=== PATIENT | male | born 1955 | race Caucasian/White ===

== ENCOUNTER 2016-12-02 14:37 | Inpatient (IN) | payer OTHER, MEDICARE ==
[~2016-12-02] VITALS: Ht 182.9 cm; Wt 156.5 kg
[~2016-12-02 14:37] MED LIST: ADVAIR 250-501 EACH INH; ADVAIR 500-501 EACH INH; ADVAIR DISKUS 21 DSK INH; AMARYL1 M1 PO; AMARYL1 MG PO; AMIODARONE50 MG/1 M1 IV; AMOX-CLAV 875-1 EACH PO; ATIVAN4 MG/1 ML IV; AZITHROMYCIN250 M1 PO; CEFTRIAXONE1 G1 IV; COLCHICINE0.6 M2 PO; COREG 25 MG TAB25 MG PO; COREG25 M1 PO; CRESTOR5 M1 PO; DELTASONE20 MG PO; DILAUDID2 M1 PO; FLOMAX0.4 M1 PO; FUROSEMIDE40 MG PO; HYDROXYZINE HCL50 M1 PO; HYDROXYZINE HCL50 MG PO; HYDROXYZINE PAM50 M1 PO; KLOR-CON M2020 ME1 PO; KLOR-CON M2020 MEQ PO; LASIX40 M1 PO; LASIX80 M1 PO; LASIX80 MG PO; LEVOFLOXACIN500 MG PO; LISINOPRIL20 M1 PO; LISINOPRIL20 MG PO; METFORMIN HCL500 M3 PO; METFORMIN HCL500 MG PO; MEVACOR20 MG PO; MUCINEX1200 M1 PO; NAPROXEN SODIU220 M1 PO; NOVOLIN R100 UNIT/1 SC; NYSTATIN15 G1 TOP; OXYCODONE-ACET1 EACH PO; PERCOCET 325 MG1 TA2 PO; PREDNISONE10 M2 PO; PREDNISONE20 M1 PO; PROTONIX IV40 M1 IV; RENAGEL800 M1 PO; SINGULAIR10 M1 PO; SINGULAIR10 MG PO; SOLU-MEDRO40 MG/1 ML IV; SPIRIVA18 MCG INH; VITAMIN A & D56.7 GM TOP
[2016-12-02 16:54] LABS: ABSOLUTE BASOPHIL COUNT 0 /CUMM (0.0-0.2); ABSOLUTE EOSINOPHIL COUNT 0.2 /CUMM (0.0-0.7); ABSOLUTE GRANULOCYTE CT 5.1 /CUMM (1.4-6.5); ABSOLUTE LYMPH COUNT 2.8 /CUMM (1.2-3.4); ABSOLUTE MONOCYTE COUNT 0.9 /CUMM (0.10-0.60); BASOPHIL % 0.3 % (0.0-2.0); GRANULOCYTE % 56.8 % (42.2-75.2); HEMATOCRIT 28.4 % (42-52); MEAN CORPUSCULAR HGB 26.3 PG (27.0-31.0); MEAN CORPUSCULAR HGB CONC 32.3 G/DL (33.0-37.0); MEAN CORPUSCULAR VOLUME 81.4 FL (80.0-94.0); MEAN PLATELET VOLUME 6.6 FL (7.4-10.4); PLATELET COUNT 228 /CUMM (130-400); RBC DISTRIBUTION WIDTH 14.9 % (11.5-14.5); RED BLOOD CELL CT 3.49 /CUMM (4.70-6.10)
--- NOTE | 2016-12-02 16:58 | ED SKIN/ALLERGY COMPLAINT ---
History of Present Illness General Chief Complaint: Lower Extremity Problems Stated Complaint: LEG SWELLING, SENT BY Source: patient, old records Exam Limitations: no limitations Vital Signs & Intake/Output Vital Signs & Intake/Output Vital Signs Date Time Temp Pulse Resp B/P Pulse O2 O2 Flow FiO2 Ox Delivery Rate 12/02 1824 98.0 80 22 162/90 98 Nasal 2.0L Cannula 12/02 1446 97.4 78 28 147/93 97 Room Air Allergies Coded Allergies: NO KNOWN ALLERGIES (02/25/16) Reconcile Medications Albuterol Sulfate (Proair Hfa) 90 MCG HFA.AER.AD 2 PUF INH Q4-6 PRN PRN COPD (Reported) Atorvastatin Calcium (Lipitor) 20 MG TABLET 1 TAB PO DAILY CHOLESTEROL ( Reported) Carvedilol 12.5 MG TABLET 1 TAB PO BID HEART (Reported) Ferrous Sulfate (IRON) 325 MG (65 MG IRON) TABLET 1 TAB PO DAILY SUPPLEMENT ( Reported) Fluticasone/Salmeterol (Advair 500-50 Diskus) 500 MCG-50 MCG/DOSE BLST.W.DEV 1 PUF INH BID COPD (Reported) Furosemide (Lasix) 40 MG TABLET 1 TAB PO BID DIURETIC (Reported) Glimepiride 1 MG TABLET 1 TAB PO BID DM (Reported) Hydroxyzine HCl 50 MG TABLET 100 MG PO BID MUCUS (Reported) Lisinopril 20 MG TABLET 1 TAB PO DAILY BP (Reported) Metformin HCl (Glucophage) 1,000 MG TABLET 1 TAB PO BID DM (Reported) Montelukast Sodium (Singulair) 10 MG TABLET 1 TAB PO DAILY RESPIRATORY ( Reported) Naproxen Sodium 220 MG TABLET 4 TAB PO BID PRN PAIN (Reported) Potassium Chloride (Klor-Con M20) 20 MEQ TAB.ER.PRT 1 TAB PO DAILY SUPPLEMENT (Reported) Umeclidinium [place] (Incruse Ellipta) 62.5 MCG/ACTUATION BLST.W.DEV 1 PUFF INH DAILY COPD (Reported) Triage Note: C/O LEFT LEG PAIN, SWELLING AND REDNESS X [address] CUELLAR. Triage Nurses Notes Reviewed? yes Onset: 3 weeks Duration: week(s): Timing: recent history Severity: severe Location: extremities Possible Factors: no cause identified No Modifying Factors: none Associated Symptoms: blisters, change in skin texture, edema, rash, swelling/ mass/lumps HPI: 3 weeks prior to admission patient reports progressive swelling and redness to left lower extremity painful to touch with extension to thigh. He denies fever chills nausea vomiting diarrhea abdominal pain chest pain shortness of breath headache dysuria bleeding. Past History Travel History Traveled to [place] past 21 day No Medical History Any Pertinent Medical History? 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 Relation not specified for: *No pertinent family history Hx Contributory? No Review of Systems Review of Systems Constitutional: Reports: no symptoms. EENTM: Reports: no symptoms. Respiratory: Reports: no symptoms. Cardiovascular: Reports: no symptoms. GI: Reports: no symptoms. Genitourinary: Reports: no symptoms. Musculoskeletal: Reports: no symptoms. Skin: Reports: see HPI, rash. Neurological/Psychological: Reports: no symptoms. Hematologic/Endocrine: Reports: no symptoms. Immunologic/Allergic: Reports: no symptoms. All Other Systems: Reviewed and Negative Physical Exam Physical Exam General Appearance: well developed/nourished, alert, awake, anxious, severe distress Head: atraumatic Eyes: Bilateral: PERRL, EOMI. Ears, Nose, Throat: normal pharynx, normal ENT inspection, hearing grossly normal Neck: normal inspection, supple Respiratory: normal breath sounds Cardiovascular: regular rate/rhythm Peripheral Pulses: 4+ carotid (R), 4+ carotid (L) Gastrointestinal: soft, non-tender Back: normal inspection, normal range of motion, no vertebral tenderness Extremities: normal inspection, normal capillary refill, normal range of motion, no edema, no ligament instability Neurologic/Psych: awake, alert, oriented x 3, normal mood/affect Reflexes: 2+: bicep (R), bicep (L). Skin: rash Skin Problem Location: lower extremities (LLE) Skin Problem Character: erythema, rash, swelling, tenderness, thickening Lymphatic: no anterior cervical rafi Progress Differential Diagnosis: abscess/cellulitis, allergic reaction, contact dermatitis Plan of Care: Orders Procedure Date/time Status Regular Diet 12/02 D Active Patient Data 12/02 1639 Active OXYGEN SETUP (GEN) 12/02 163 Active Saline Lock 12/02 163 Active Admit to inpatient 12/02 1633 Active Vital Signs 12/02 163 Active Activity/Ambulation 12/02 1633 Active Code Status 12/02 1633 Active BLOOD CULTURE 12/02 1630 Active US-DUPLEX VENOUS EXTREM UNI 12/02 162 Active COMPREHENSIVE METABOLIC PANEL 12/02 162 Complete CBC WITHOUT DIFFERENTIAL 12/02 162 Complete Laboratory Tests 12/02/16 1645: Anion Gap 11, Estimated GFR 52 L, BUN/Creatinine Ratio 22.1, Glucose 83, Calcium 8.9, Total Bilirubin 0.7, AST 12 L, ALT 21, Alkaline Phosphatase 72, Total Protein 6.8, Albumin 3.3 L, Globulin 3.5, Albumin/Globulin Ratio 0.9 L, CBC w Diff NO MAN DIFF REQ, RBC 3.49 L, MCV 81.4, MCH 26.3 L, RDW 14.9 H, MPV 6.6 L, Gran % 56.8, Lymphocytes % 30.5, Monocytes % 10.4 H, Eosinophils % 2.0, Basophils % 0.3, Absolute Granulocytes 5.1, Absolute Lymphocytes 2.8, Absolute Monocytes 0.9 H, Absolute Eosinophils 0.2, Absolute Basophils 0, PUBS MCHC 32.3 L Microbiology 12/02 164 BLOOD: Blood Culture - RECD 12/02 163 BLOOD: Blood Culture - ORD Radiology Impression: US pending Departure Departure Disposition: STILL A PATIENT Condition: Stable Clinical Impression Primary Impression: Cellulitis of left lower leg Secondary Impressions: Anemia, Renal insufficiency Referrals: UNKNOWN (PCP/Family) Departure Forms: Customer Survey General Discharge Information Admission Note Spoke With: JOSE LINARES MD Documentation of Exam: Documentation of any treatments & extenuating circumstances including Concerns Regarding Discharge (functional status, medication knowledge or non-compliance, living conditions, etc.) that warrant an admission rather than observation: IV antibiotics follow cultures physical therapy medication adjustment continuing care discharge planning
[2016-12-02] MEDS ORDERED: ADVAIR 500-501 EACH INH (17:42)
[2016-12-02] MEDS ORDERED: INCRUSE ELLI62.5 MCG INH (17:43)
[2016-12-02] MEDS ORDERED: CARVEDILOL12.5 M1 PO (17:43)
[2016-12-02] MEDS ORDERED: PROAIR HFA8.5 GM INH (17:44)
[2016-12-02] MEDS ORDERED: GLIMEPIRIDE1 M1 PO (17:44)
[2016-12-02] MEDS ORDERED: LIPITOR20 M2 PO (17:45)
[2016-12-02] MEDS ORDERED: LISINOPRIL20 M1 PO (17:45)
[2016-12-02] MEDS ORDERED: SINGULAIR10 M1 PO (17:45)
[2016-12-02] MEDS ORDERED: HYDROXYZINE HCL50 M1 PO (17:46)
[2016-12-02] MEDS ORDERED: LASIX40 M1 PO (17:46)
[2016-12-02] MEDS ORDERED: GLUCOPHAGE1000 M1 PO (17:46)
[2016-12-02] MEDS ORDERED: IRON325 M3 PO (17:47)
[2016-12-02] MEDS ORDERED: KLOR-CON M2020 ME1 PO (17:47)
[2016-12-02] MEDS ORDERED: NAPROXEN SODIU220 MG PO (17:48)
--- NOTE | 2016-12-02 19:02 | History & Physical ---
GILDA HARPER,NEERAJ 12/02/16 1902: General Information and HPI MD Statement: I have seen and personally examined SUZETTE GRIGSBY SR and documented this H&P. The patient is a 61 year old M who presented with a patient stated chief complaint of lower extremity erythema and swelling. Source of Information: patient Exam Limitations: no limitations History of Present Illness: This is a 61-year-old morbidly obese gentleman with a past medical history of nonischemic cardiomyopathy, recent pacemaker and defibrillator (2016),CHF with EF of 15-20%, chronic venous stasis with lower extremity edema, COPD, diabetes, dyslipidemia presents to [facility] ED after being sent by his respiratory care practitioner Dr. George for evaluation of left lower extremity erythema and swelling. Pt reports an extensive chronic history of left lower leg erythema and questionable cellulitis. She reports that this recent episode started around 3- 1/2 weeks where he noticed increased swelling and redness of his left lower leg. Patient denies any recent trauma of his lower extremities, insect or animal bite, or application of any chemical irritants to his leg. Patient denies any fevers, or any recent infection. He also denies any chest pain, palpitation, shortness of breath, increased orthopnea, PND, denies noncompliance when it comes to his furosemide. Patient expresses some discontent regarding the management of his lower extremity swelling and states that he wishes there were answers for his leg problems. Of note, patient has previously been evaluated by vascular with the temperature that was venous insufficiency with no need for any surgical intervention. Allergies/Medications Allergies: Coded Allergies: NO KNOWN ALLERGIES (02/25/16) Home Med list Albuterol Sulfate (Proair Hfa) 90 MCG HFA.AER.AD 2 PUF INH Q4-6 PRN PRN COPD (Reported) Atorvastatin Calcium (Lipitor) 20 MG TABLET 1 TAB PO DAILY CHOLESTEROL ( Reported) Carvedilol 12.5 MG TABLET 1 TAB PO BID HEART (Reported) Ferrous Sulfate (IRON) 325 MG (65 MG IRON) TABLET 1 TAB PO DAILY SUPPLEMENT ( Reported) Fluticasone/Salmeterol (Advair 500-50 Diskus) 500 MCG-50 MCG/DOSE BLST.W.DEV 1 PUF INH BID COPD (Reported) Furosemide (Lasix) 40 MG TABLET 1 TAB PO BID DIURETIC (Reported) Glimepiride 1 MG TABLET 1 TAB PO BID DM (Reported) Hydroxyzine HCl 50 MG TABLET 100 MG PO BID MUCUS (Reported) Lisinopril 20 MG TABLET 1 TAB PO DAILY BP (Reported) Metformin HCl (Glucophage) 1,000 MG TABLET 1 TAB PO BID DM (Reported) Montelukast Sodium (Singulair) 10 MG TABLET 1 TAB PO DAILY RESPIRATORY ( Reported) Naproxen Sodium 220 MG TABLET 4 TAB PO BID PRN PAIN (Reported) Potassium Chloride (Klor-Con M20) 20 MEQ TAB.ER.PRT 1 TAB PO DAILY SUPPLEMENT (Reported) Umeclidinium [place] (Incruse Ellipta) 62.5 MCG/ACTUATION BLST.W.DEV 1 PUFF INH DAILY COPD (Reported) Past History Travel History Traveled to [place] past 21 day No Medical History Neurological: NONE EENT: NONE Cardiovascular: cardiomyopathy, CHF, chronic venous insuff, hypertension, hyperlipidemia Respiratory: COPD, SLEEP APNEA Gastrointestinal: NONE Hepatic: NONE Renal: NONE Musculoskeletal: NONE Psychiatric: NONE Endocrine: diabetes Blood Disorders: NONE 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 Relation not specified for: *No pertinent family history Psychosocial History Who Do You Live With? self Services at Home: None ETOH Use: occasional use Functional Ability ADLs Independent: dressing, eating, toileting, bathing. Ambulation: independent Review of Systems Review of Systems EENTM: Denies: blurred vision, double vision, visual changes. Cardiovascular: Denies: chest pain, orthopena, palpitations, peripheral edema. Respiratory: Denies: hemoptysis, short of breath, sputum production, wheezing. GI: Denies: melena, nausea, bloody stool, changes in stool. Genitourinary: Denies: dysuria, frequency, hematuria. Musculoskeletal: Denies: joint pain, joint swelling, muscle pain. Skin: Reports: erythema. Denies: jaundice, lesions. Neurological/Psychological: Denies: confusion, depressed, dementia, emotional problems. Hematologic/Endocrine: Denies: bleeding, polyuria, polydipsia. Immunologic/Allergic: Reports: no symptoms. All Other Systems: Reviewed and Negative Exam & Diagnostic Data Physical Exam General Appearance Alert, Oriented X3, Cooperative, morbidly obese Skin significant erythema of left leg extending to the upper thigh area,mild tenderness to palpation,warm to touch compared to the other extremity . No abscess, or purulent discharge noted. HEENT Atraumatic, PERRLA, EOMI Neck Supple Lymphatic Cervical nl Cardiovascular Regular Rate, Normal S1, Normal S2 Lungs Clear to Auscultation, Normal Air Movement Abdomen Soft, distended, nontender Neurological Normal Speech, Strength at 5/5 X4 Ext, Sensation Intact Extremities No Clubbing, No Cyanosis, left lower extremity swelling with erythema Assessment/Plan Assessment: This is a 61-year-old morbidly obese man with a chronic history of venous insufficiency, CHF of 15-20% EF, ischemic cardiomyopathy, and on Lasix therapy presents for evaluation of left lower extremity swelling. Assessment and plan #Lower extremity swelling The unilateral left extremity erythema with some tenderness and warmth to touch is highly suggestive of cellulitis. It is noted that the patient is however afebrile with no leukocytosis. Other possible differential include worsening venous insufficiency. Plan Admit to general medicine floor Will start cefazolin IV Obtain blood cultures #History of CHF Continue home meds including furosemide #History of ischemic cardiomyopathy Continue lisinopril and carvedilol #History of hypertension Continue lisinopril #History of diabetes NovoLog sliding scale Accu-Cheks 3 times a day and at bedtime # history of COPD TRC nebs as needed As Ranked By This Provider Problem List: 1. Cellulitis of left lower leg Core Measures/Miscellaneous Acute Coronary Syndrome ACS Diagnosis: No Cerebrovascular Accident CVA/TIA Diagnosis: No Congestive Heart Failure CHF Diagnosis: No Venous Thromboembolism VTE Risk Factors: Age > 40 VTE Prophylaxis Ordered Inpt: Pharm- Lovenox No Mech VTE prophylaxis d/t: LE Edema No VTE Pharm Prophylaxis d/t: No contraindications VTE Diagnosis: No VTE Type: NONE VTE Confirmed by (Test): NONE Severe Sepsis Severe Sepsis Present: No Septic Shock Septic Shock Present: No Miscellaneous Documentation Attending Case Discussed With: MD YOUNG Primary Care Physician: UNKNOWN Patient sees these Specialists CARDIOLOGY Level of Patient Care: General Medicine YOUNG HARPER, [facility] 12/02/16 2020: Attending MD Review Statement Attending Statement Attending Statement: examined this patient, discuss w/resident/PA/ADDRESSER, agreed w/resident/PA/ADDRESSER Attending Assessment/Plan: 61 yo morbidly obese M with h/o COPD on 3L O2, HTN, T2DM, JORY, chronic edema, PAD, nonischemic CMP with chronic systolic HF (EF 15-20%), was last admitted to [facility] (Jul 2016) for shock 2/2 Ecoli urosepsis, c/b LISETTE/ATN requiring interim dialysis, Afib, UGIB, respiratory failure requiring intubation, was eventually transferred to [facility] for biventricular pacemaker and defibrillator. Patient reports he had a complicated course at [facility], and was discharged after few months to rehab. He has many social issues he lost his son last month, has been homeless living out of truck with his dog. He reports compliance to his medications. He went for his regular follow up with Dr. George today, who sent him to the ER for evaluation of left lower extremity erythema and diffuse swelling over the past 3 weeks. There were a few weeping lesions (clear fluid) in the past week, but those have resolved. He has had cellulitis in the past. He cannot recollect any trauma or insect bites, he does trip often while taking his dog out for a walk. He has chronic venous stasis and was evaluated by Vascular during last admission, but never had an OP follow up. He has a chronic cough and exertional dyspnea at baseline. VSS. Exam: Chest b/l clear, Heart S1S2 regular, LE: b/l LE pitting edema, LLE 3+ edema extending upto thigh with erythema, warmth and tenderness. Chronic venous stasis+, no open wounds or ulcers. Peripheral pulses are feeble due to edema. Neuro intact. Labs: no leukocytosis, H/H 9.2/28.4 (stable), bicarb 31, BUN 31, creat 1.4 ( previously 0.8, was in ATN with creatinine upto 7.1), LE dopplers neg. EKG: pending. 1. Left lower extremity cellulitis. Elevate legs, blood culture, IV cefazolin, will give one dose of IV lasix and continue home PO dose from AM. Wound care consult in AM. Consider Vascular consult, last arterial dopplers done in Nov 2015 showed decreased b/l proximal superfical femoral artery velocities. 2. Chronic hypoxic respiratory failure. TRC nebs, continue advair, and O2 supplementation. 3. Cardiomyopathy. Ct. Coreg, lisinopril and lasix. Dr. George to see in AM. 4. T2DM. Acckari novolog SS. Hold metformin and glipizide. Check HbA1c. 5. Anemia stable. CKD stage 3A stable. DVT ppx Hep SC. Full code. ELY SPEARS 12/02/162108: Review of Systems Review of Systems Constitutional: Reports: see HPI. Exam & Diagnostic Data Last 24 Hrs of Vital Signs/I&O Vital Signs Date Time Temp Pulse Resp B/P Pulse O2 O2 Flow FiO2 Ox Delivery Rate 12/03 0948 67 130/86 12/03 0948 130/86 12/03 0616 98.4 81 18 118/66 99 Nasal Cannula 12/02 2211 76 152/84 12/02 2040 98 Nasal 3.0L Cannula 12/02 2019 98.1 76 18 152/84 98 Nasal 3.0L Cannula 12/02 1932 100 Nasal 3.0L Cannula 12/02 1925 97.6 66 22 111/72 100 Nasal 3.0L Cannula 12/02 1824 98.0 80 22 162/90 98 Nasal 2.0L Cannula 12/02 1446 97.4 78 28 147/93 97 Room Air Intake & Output 12/03 1600 12/03 0800 12/03 0000 Intake Total 250 Output Total Balance 250 Intake, Oral 250 Patient 345 lb Weight Resident Review Statement Resident Statement: agreed with analytics intern Other Findings: History and physical as above Assessment and plan Patient is a 61-year-old man with past medical history of COPD on 3 L of oxygen at home, hypertension, hyperlipidemia, obstructive sleep apnea, diabetes, nonischemic cardiomyopathy, systolic heart failure with ejection fraction 15-20% status post pacemaker and defibrillator, Escherichia coli sepsis, history of acute kidney injury requiring dialysis and history of peptic ulcer disease was sent in by Dr. George for left leg swelling and redness that was present for last 3 weeks. Problem list 1. Left lower extremity cellulitis 2. History of systolic heart failure with ejection fraction 15-20% status post defibrillator and pacemaker. On Lasix 3. History of COPD and obstructive sleep apnea 4. History of hypertension on lisinopril and carvedilol 5. History of hypercholesterolemia on Lipitor 6. History of diabetes on glimepiride and metformin 7. History of normocytic anemia 8. History of chronic renal insufficiency Plan - Admit on general medicine floor - Vitals every shift - Keep oxygen saturation more than 92% - We'll start him on IV cefazolin every 8 hours for left lower extremity cellulitis. Blood cultures 2 - We will continue all his home medications except naproxen, continue Nipride and metformin. We will start patient on medium dose insulin sliding scale. Accu-Cheks before each meal and at bedtime. - Continue [facility] nebs - Heart healthy diet - Subcutaneous heparin for DVT prophylaxis - Full code
--- NOTE | 2016-12-02 19:52 | ULTRASOUND REPORT ---
EXAMINATION: US TRIPLEX SCANNING LOWER EXTREMITY, LEFT CLINICAL INFORMATION: Left lower extremity swelling and edema. COMPARISON: Triplex ultrasound of the bilateral lower extremity veins 12/02/2015. TECHNIQUE: Color-flow triplex imaging with spectral analysis and compression Doppler were performed on the left lower extremity. FINDINGS: Respiratory variation, normal compression and augmented flow are noted throughout the lower extremity. The visualized common femoral vein, superficial femoral vein, profunda femoral vein, popliteal vein and mid calf peroneal and posterior tibial venous segments show no evidence of deep venous thrombosis. There is no Nichols's cyst. IMPRESSION: Normal triplex scan without evidence of deep venous thrombosis involving the left lower extremity.
[2016-12-02 20:20] VITALS: BP 152/84
--- NOTE | 2016-12-02 21:54 | Admission Certification ---
Admission Certification Certification Statement - As attending physician, I certify that at the time of - admission, based on clinical presentation, severity of - symptoms, need for further diagnostic testing and - therapeutic interventions, and risk of adverse outcomes - without in-hospital treatment, in my clinical assessment, - this patient requires an acute hospital stay for a minimum - of two nights or longer. I have also considered psychsocial - factors such as support system, advanced age, financial - issues, cognitive issues, and failed out-patient treatments, - past re-admission history, safety of patient, and lack of - compliance as applicable. Specific rationale supporting this admission is: Left lower extremity cellulitis.
[2016-12-03 06:16] VITALS: BP 118/66
[2016-12-03 08:11] LABS: ABSOLUTE BASOPHIL COUNT 0 /CUMM (0.0-0.2); ABSOLUTE EOSINOPHIL COUNT 0.2 /CUMM (0.0-0.7); ABSOLUTE LYMPH COUNT 2.3 /CUMM (1.2-3.4); ABSOLUTE MONOCYTE COUNT 0.8 /CUMM (0.10-0.60); BASOPHIL % 0.4 % (0.0-2.0); EOSINOPHIL % 2.1 % (0-5); GRANULOCYTE % 55.1 % (42.2-75.2); HEMATOCRIT 27.4 % (42-52); MEAN CORPUSCULAR HGB 26.9 PG (27.0-31.0); MEAN CORPUSCULAR HGB CONC 33.2 G/DL (33.0-37.0); MEAN CORPUSCULAR VOLUME 81.2 FL (80.0-94.0); MEAN PLATELET VOLUME 7.5 FL (7.4-10.4); PLATELET COUNT 215 /CUMM (130-400); RBC DISTRIBUTION WIDTH 15.2 % (11.5-14.5); RED BLOOD CELL CT 3.38 /CUMM (4.70-6.10); WHITE BLOOD CELL COUNT 7.3 /CUMM (4.8-10.8)
--- NOTE | 2016-12-03 10:19 | Cons- Cardiology ---
General Information and HPI Consulting Request Date of Consult: 12/03/16 Requested By: BAILEY MAS MD Reason for Consult: Chronic systolic heart failure, lower extremity edema Source of Information: patient, old records Exam Limitations: no limitations History of Present Illness: The patient is a 61-year-old white male who is well-known to me. 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 Patient was seen in the office yesterday for a routine visit. At that time, he was noted to have marked edema of his lower extremity on the left side with associated marked erythema and pain consistent with cellulitis. The patient was sent to the emergency him for further evaluation and possible admission. The patient ultimately had a venous ultrasound of his LAD performed which showed no evidence of DVT. The patient was admitted for further management of his edema and cellulitis. Allergies/Medications Allergies: Coded Allergies: NO KNOWN ALLERGIES (02/25/16) Home Med List: Albuterol Sulfate (Proair Hfa) 90 MCG HFA.AER.AD 2 PUF INH Q4-6 PRN PRN COPD (Reported) Atorvastatin Calcium (Lipitor) 20 MG TABLET 1 TAB PO DAILY CHOLESTEROL ( Reported) Carvedilol 12.5 MG TABLET 1 TAB PO BID HEART (Reported) Cephalexin 500 MG CAPSULE 1 TAB PO Q6H CELLULITIS Ferrous Sulfate (IRON) 325 MG (65 MG IRON) TABLET 1 TAB PO DAILY SUPPLEMENT ( Reported) Fluticasone/Salmeterol (Advair 500-50 Diskus) 500 MCG-50 MCG/DOSE BLST.W.DEV 1 PUF INH BID COPD (Reported) Furosemide (Lasix) 40 MG TABLET 1 TAB PO BID DIURETIC (Reported) Glimepiride 1 MG TABLET 1 TAB PO BID DM (Reported) Hydroxyzine HCl 50 MG TABLET 100 MG PO BID MUCUS (Reported) Lisinopril 20 MG TABLET 1 TAB PO DAILY BP (Reported) Metformin HCl (Glucophage) 1,000 MG TABLET 1 TAB PO BID DM (Reported) Montelukast Sodium (Singulair) 10 MG TABLET 1 TAB PO DAILY RESPIRATORY ( Reported) Naproxen Sodium 220 MG TABLET 4 TAB PO BID PRN PAIN (Reported) Oxycodone HCl/Acetaminophen (Percocet 5-325 MG Tablet) 5 MG-325 MG TABLET 1 TAB PO Q4-6 PRN PRN LEG PAIN Potassium Chloride (Klor-Con M20) 20 MEQ TAB.ER.PRT 1 TAB PO DAILY SUPPLEMENT (Reported) Umeclidinium [place] (Incruse Ellipta) 62.5 MCG/ACTUATION BLST.W.DEV 1 PUFF INH DAILY COPD (Reported) Current Medications: Current Medications Sig/Keaton Start time Last Medication Dose Route Stop Time Status Admin Acetaminophen 650 MG Q4P PRN 12/02 2130 AC PO Acetaminophen 650 MG Q4P PRN 12/02 1999 DC PO Albuterol Sulfate 2 PUF Q4-6 PRN PRN 12/02 1999 AC 12/03 INH 0842 Ampicillin Sodium/ 0 .STK-MED ONE 12/02 1927 DC Sulbactam Sodium .ROUTE Ampicillin Sodium/ 3,000 MG ONCE ONE 12/02 1800 DC 12/02 Sulbactam Sodium IV 12/02 1829 1929 Sodium Chloride 100 ML Atorvastatin Calcium 20 MG DAILY@1700 12/03 1700 AC PO Budesonide/ 1 PUF BID 12/02 2200 AC 12/03 Formoterol Fumarate INH 0949 Carvedilol 12.5 MG BID 12/02 2200 AC 12/03 PO 0948 Cefazolin Sodium 2 GM IQ8 12/03 0000 AC 12/03 N/A 1 UNIT IV 0841 Ferrous Sulfate 325 MG DAILY 12/03 1000 AC 12/03 PO 0948 Furosemide 40 MG 0730,1630 12/03 0730 AC 12/03 PO 0618 Furosemide 40 MG ONCE ONE 12/02 2300 DC 12/02 IV 12/02 2301 2314 Heparin Sodium 5,000 UNIT Q8 12/02 2200 AC 12/03 (Porcine) SC 0618 Hydromorphone HCl 2 MG ONCE ONE 12/03 0100 DC 12/03 PO 12/03 0101 0130 Hydroxyzine HCl 100 MG BID 12/02 2200 AC 12/03 PO 0948 Insulin Aspart 0 TIDAC 12/03 0800 AC SC Ipratropium [place] 2.5 ML ONCE ONE 12/02 1999 DC INH 12/02 2000 Lisinopril 20 MG DAILY 12/03 1000 AC 12/03 PO 0948 Montelukast Sodium 10 MG AT BEDTIME 12/02 2200 AC 12/02 PO 2211 Oxycodone HCl 5 MG Q6 PRN 12/03 0945 AC 12/03 PO 0948 Oxycodone/ 1 TAB ONCE ONE 12/02 2044 DC 12/02 Acetaminophen PO 12/02 Potassium Chloride 20 MEQ DAILY 12/03 1000 AC 12/03 PO 0948 Past History Travel History Traveled to [place] past 21 day No Medical History Neurological: NONE EENT: NONE Cardiovascular: cardiomyopathy, CHF, chronic venous insuff, hypertension, hyperlipidemia Respiratory: COPD, SLEEP APNEA Gastrointestinal: NONE Hepatic: NONE Renal: NONE Musculoskeletal: NONE Psychiatric: NONE Endocrine: diabetes Blood Disorders: NONE Cancer(s): NONE 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 Relation not specified for: *No pertinent family history Psychosocial History Who Do You Live With? self Services at Home: None Smoking Status: Never Smoked ETOH Use: occasional use Functional Ability ADLs Independent: dressing, eating, toileting, bathing. Ambulation: independent Exam & Diagnostic Data Vital Signs and I&O BP 120/60 P 70 REGULAR Diagnostic Data EKG Results UNCHANGED Assessment/Plan Assessment/Plan ASSESSMENT: 1. LE cellulitis 2. Worsening LE edema 3. Non ischemic cardiomyopathy 4. LBBB 5. AICD Recommendations: - Continue regular medications - IV lasix diuresis - Antibiotics as per the medical team - COntinue LE elevation, etc. - Pain management. Consult Acknowledgment - Thank you for your consult request.
--- NOTE | 2016-12-03 12:53 | PN- Housestaff ---
Subjective Follow-up For: Cellulitis Subjective: Seen and examined at bedside. Patient inquires about his oxycodone regimen and would like oxycodone pills for his pain is pain management. She reports that he feels much better with some improvement on his leg swelling. Patient denies any acute complaints including chest pain, palpitation, fever, chills, abdominal pain, dysuria, or dizziness. No Acute overnight event reported by nursing staff Review of Systems Constitutional: Denies: see HPI. Objective Last 24 Hrs of Vital Signs/I&O Vital Signs Date Time Temp Pulse Resp B/P Pulse O2 O2 Flow FiO2 Ox Delivery Rate 12/04 618 98.8 62 18 96/54 98 Nasal Cannula 12/04 0550 98/64 12/03 2136 60 110/62 12/03 2135 97.7 60 18 110/62 98 Nasal 3.0L Cannula 12/03 1400 97.7 65 20 140/60 97 Nasal 3.0L Cannula 12/03 0948 67 130/86 12/03 0948 130/86 12/03 08 Nasal 3.0L Cannula Intake & Output 12/04 0800 12/04 0000 12/03 1600 Intake Total 300 480 800 Output Total Balance 300 480 800 Intake, Oral 300 480 800 Patient 156.489 kg Weight Physical Exam General Appearance: Alert, Oriented X3, Cooperative Other Physical Findings: Skin erythema of left leg extending to the upper thigh area,mild tenderness to palpation,warm to touch compared to the other extremity . Significant better compared to yesterday. No abscess, or purulent discharge noted. HEENT Atraumatic, PERRLA, EOMI Neck Supple Lymphatic Cervical nl Cardiovascular Regular Rate, Normal S1, Normal S2 Lungs Clear to Auscultation, Normal Air Movement Abdomen Soft, distended, nontender Neurological Normal Speech, Strength at 5/5 X4 Ext, Sensation Intact Extremities No Clubbing, No Cyanosis, left lower extremity swelling with erythema Current Medications: Current Medications Sig/Keaton Start time Last Medication Dose Route Stop Time Status Admin Acetaminophen 650 MG Q4P PRN 12/02 2129 AC PO Albuterol Sulfate 2 PUF Q4-6 PRN PRN 12/02 1999 AC 12/03 INH 0842 Atorvastatin Calcium 20 MG DAILY@1700 12/03 1700 AC 12/03 PO 1618 Budesonide/ 1 PUF BID 12/02 2199 AC 12/03 Formoterol Fumarate INH 2136 Carvedilol 12.5 MG BID 12/02 2200 AC 12/03 PO 2136 Cefazolin Sodium 2 GM IQ8 12/03 0000 AC 12/03 N/A 1 UNIT IV 2312 Ferrous Sulfate 325 MG DAILY 12/03 1000 AC 12/03 PO 0948 Furosemide 40 MG 0730,1630 12/03 0730 AC 12/03 PO 1618 Heparin Sodium 5,000 UNIT Q8 12/020 AC 12/04 (Porcine) SC 0529 Hydroxyzine HCl 100 MG BID 12/02 2200 AC 12/03 PO 2136 Insulin Aspart 0 TIDAC 12/03 0800 AC 12/03 SC 1156 Lisinopril 20 MG DAILY 12/03 1000 AC 12/03 PO 0948 Montelukast Sodium 10 MG AT BEDTIME 12/02 2199 AC 12/03 PO 2136 Oxycodone HCl 5 MG Q6 PRN 12/03 0945 AC 12/04 PO 0537 Patient Medication 1 ED .STK-MED ONE 12/[address] Teaching ED 12/03 1401 Potassium Chloride 20 MEQ DAILY 12/03 1000 AC 12/03 PO 0948 Last 24 Hrs of Lab/Joaquim Results Last 24 Hrs of Labs/Mics: .. Assessment/Plan Assessment: This is a 61-year-old morbidly obese man with a chronic history of venous insufficiency, CHF of 15-20% EF, ischemic cardiomyopathy, and on Lasix therapy presents for evaluation of left lower extremity swelling. Assessment and plan #Lower extremity swelling The unilateral left extremity erythema with some tenderness and warmth to touch is highly suggestive of cellulitis. It is noted that the patient is however afebrile with no leukocytosis. Other possible differential include worsening venous insufficiency. Patient does leave in a truck, which probably precipitates his lower leg extremity swelling due to lack of foot elevation. Patient also endorses a lot of life stressors, and appears depressed. Plan Continue cefazolin IV f/u blood cultures #Social consult Patient doses a lot of life stresses in his home living arrangement complicates his health status as he is currently living in a truck. She is reluctant when offered options and help regarding placement. We had extensive discussion about the need for leg elevation and the negative mpact of sleeping in a car chair when it comes to his lower leg extremity swelling. #History of CHF Continue home meds including furosemide #History of ischemic cardiomyopathy Continue lisinopril and carvedilol #History of hypertension Continue lisinopril #History of diabetes NovoLog sliding scale Accu-Cheks 3 times a day and at bedtime # history of COPD TRC nebs as needed Problem List: 1. Cellulitis of left lower leg Pain Ratin Pain Location: lower extremity Pain Goal: Remain pain free Pain Plan: apap for mild pain oxycodone for moderate pain Tomorrow's Labs & Rationales: BEP-CHF ON LASIX CBC-CELLULITIS
[2016-12-03 14:00] VITALS: BP 140/60
--- NOTE | 2016-12-03 15:40 | PN- Att Addend ---
Attending MD Review Statement Attending Statement Attending MD Statement: examined this patient, discuss w/resident/PA/RESEARCH ARCHAEOLOGIST, agreed w/resident/PA/RESEARCH ARCHAEOLOGIST, reviewed EMR data (avail), discussed w/nursing, discussed w/ case mgmt Attending Assessment/Plan: Pt seen at bedside. Pt stays in the truck and does not have a home. Cellulitis improving with abx. Pt has chronic edema of the left leg which is getting worse as he sleeps sitting up and does not lay down due to sob. Also has sleep apnea but not willing to use his cpap machine. d/w him the importance of leg elevation and how it will help prevent infections. CHF systolic chronic with ef of 15-20%, pt eats outside all the times as he lives in the truck, which may be contributing further to his worsening leg edema. Plan d/w pt . SW to see the patient to d/w him social issues.
[2016-12-03 21:35] VITALS: BP 110/62
[2016-12-04 05:50] VITALS: BP 98/64
[2016-12-04 06:19] VITALS: BP 96/54
--- NOTE | 2016-12-04 09:01 | PN- Housestaff ---
Subjective Follow-up For: Cellulitis/lower extremity swelling Subjective: Patient is seen and examined at bedside. Patient reports that his swelling and leg pain is significantly better compared to yesterday and on admission date. Patient does not endorse any other acute complaint such as chest pain, palpitation, fever, chills, shortness of breath, nausea, vomiting, abdominal pain or dysuria. Overnight BP reading of 98/64 noted. No acute overnight events reported by nursing staff. Review of Systems Constitutional: Reports: no symptoms. Objective Last 24 Hrs of Vital Signs/I&O Vital Signs Date Time Temp Pulse Resp B/P Pulse O2 O2 Flow FiO2 Ox Delivery Rate 12/04 934 59 120/80 12/04 927 59 120/80 12/04 926 59 120/80 12/04 799 Nasal 3.0L Cannula 12/04 618 98.8 62 18 96/54 98 Nasal Cannula 12/04 0550 98/64 12/04 0000 Room Air 12/03 2136 60 110/62 12/03 2135 97.7 60 18 110/62 98 Nasal 3.0L Cannula 12/03 1400 97.7 65 20 140/60 97 Nasal 3.0L Cannula Intake & Output 12/04 1600 12/04 0800 12/04 0000 Intake Total 300 300 480 Output Total Balance 300 300 480 Intake, Oral 300 300 480 Physical Exam General Appearance: Alert, Oriented X3, Cooperative, morbidly obese Skin: lower extremity swelling on the left side less prominent compared to previous days, erythema seems to be progressively decreasing with minimal to no pain on palpation. HEENT: Atraumatic, PERRLA, Mucous Membr. moist/pink Cardiovascular: Regular Rate, Normal S1, Normal S2 Lungs: Clear to Auscultation, Normal Air Movement Abdomen: Soft, distended, no guarding or pain on palpation Neurological: Normal Speech, Strength at 5/5 X4 Ext, Normal Tone, Sensation Intact Extremities: No Clubbing, left lower eswelling of left lower extremityxtremity swelling Vascular: not able to appreciate dorsalis pedis pulses due to edema Assessment/Plan Assessment: This is a 61-year-old morbidly obese man with a chronic history of venous insufficiency, CHF of 15-20% EF, ischemic cardiomyopathy, and on Lasix therapy presents for evaluation of left lower extremity swelling. Assessment and plan #Lower extremity swelling The unilateral left extremity erythema with some tenderness and warmth to touch is highly suggestive of cellulitis. It is noted that the patient is however afebrile with no leukocytosis. Other possible differential include worsening venous insufficiency. Patient does leave in a truck, which probably precipitates his lower leg extremity swelling due to lack of foot elevation. Patient also endorses a lot of life stressors, and appears depressed. Plan This is a non abscess/nonpurulent uncomplicated cellulitis . Will therefore continue cefazolin IV today and will switch to oral cephalexin 500 mg every 6 tomorrow for total antibiotic course of 7 days. f/u blood cultures #Social consult Patient doses a lot of life stresses in his home living arrangement complicates his health status as he is currently living in a truck. She is reluctant when offered options and help regarding placement. We had extensive discussion about the need for leg elevation and the negative mpact of sleeping in a car chair when it comes to his lower leg extremity swelling. #History of CHF Continue home meds including furosemide #History of ischemic cardiomyopathy Continue lisinopril and carvedilol #History of hypertension Continue lisinopril #History of diabetes NovoLog sliding scale Accu-Cheks 3 times a day and at bedtime # history of COPD TR nebs as needed Problem List: 1. Cellulitis of left lower leg Pain Ratin Pain Location: lower extremity Pain Goal: Pain 4 or less Pain Plan: Oxycodone for moderate pain Hydromorphone for severe pain Tomorrow's Labs & Rationales: BEP-CKD, CHF and on Lasix CBC-active cellulitis infection
[2016-12-04 09:14] LABS: ABSOLUTE BASOPHIL COUNT 0 /CUMM (0.0-0.2); ABSOLUTE EOSINOPHIL COUNT 0.2 /CUMM (0.0-0.7); ABSOLUTE GRANULOCYTE CT 4.6 /CUMM (1.4-6.5); ABSOLUTE LYMPH COUNT 2.1 /CUMM (1.2-3.4); ABSOLUTE MONOCYTE COUNT 0.7 /CUMM (0.10-0.60); BASOPHIL % 0.3 % (0.0-2.0); EOSINOPHIL % 2.2 % (0-5); GRANULOCYTE % 61.2 % (42.2-75.2); HEMATOCRIT 29.9 % (42-52); MEAN CORPUSCULAR HGB 26.4 PG (27.0-31.0); MEAN CORPUSCULAR HGB CONC 32.2 G/DL (33.0-37.0); MEAN CORPUSCULAR VOLUME 81.8 FL (80.0-94.0); MEAN PLATELET VOLUME 7.4 FL (7.4-10.4); PLATELET COUNT 212 /CUMM (130-400); RED BLOOD CELL CT 3.66 /CUMM (4.70-6.10); WHITE BLOOD CELL COUNT 7.6 /CUMM (4.8-10.8)
--- NOTE | 2016-12-04 12:15 | PN- Att Addend ---
Attending MD Review Statement Attending Statement Attending MD Statement: examined this patient, discuss w/resident/PA/OPERATIONS SUPERVISOR CHEMICAL CLEANING, agreed w/resident/PA/OPERATIONS SUPERVISOR CHEMICAL CLEANING, reviewed EMR data (avail), discussed w/nursing Attending Assessment/Plan: Pt seen at bedside. Pt stays in the truck with his dog and does not have a home. Cellulitis improving with abx. Pt has chronic edema of the left leg which is getting worse as he sleeps sitting up and does not lay down due to sob. Also has sleep apnea but not willing to use his cpap machine. d/w him the importance of leg elevation and how it will help prevent infections. CHF systolic chronic with ef of 15-20%, pt eats outside all the times as he lives in the truck, which may be contributing further to his worsening leg edema. Plan is to continue iv abx for now and if doing better dc him on po abx tomorrow. Increase in bicarbonate. will repeat bmp in am and f/u on bicarbonate. SW to see the patient to d/w him social issues.
[2016-12-04 14:16] VITALS: BP 120/60
[2016-12-04 22:44] VITALS: BP 110/72
[2016-12-05 06:19] VITALS: BP 114/68
--- NOTE | 2016-12-05 10:26 | PN- Housestaff ---
Subjective Follow-up For: Left leg cellulitis Subjective: Patient is seen and examined at bedside. Patient is endorsing increased pain on his affected cellulitic leg. Nursing staff noted that patient has been immobile with his cane when ambulating to the bathroom and he was noticed to have been inadvertently banging his leg with a cane during ambulation. Patient denies any chest pain, palpitation, increased shortness of breath, abdominal pain, fever, chills, nausea, vomiting or dysuria. Review of Systems Constitutional: Reports: see HPI. Objective Last 24 Hrs of Vital Signs/I&O Vital Signs Date Time Temp Pulse Resp B/P Pulse O2 O2 Flow FiO2 Ox Delivery Rate 12/05 1439 97.9 60 18 128/80 97 Nasal 3.0L Cannula 12/05 1022 62 128/82 12/05 1022 62 128/82 12/05 0800 94 Nasal 3.0L Cannula 12/05 0619 98.3 59 19 114/68 98 Nasal 3.0L Cannula 12/05 0000 Nasal 3.0L Cannula 12/04 2244 98.3 60 18 110/72 98 Nasal 3.0L Cannula 12/04 2132 98.3 60 18 110/72 12/04 1600 98 Nasal 3.0L Cannula Intake & Output 12/05 1600 12/05 0800 12/05 0000 Intake Total 720 680 720 Output Total 1000 300 300 Balance -280 380 420 Intake, IV 200 Intake, Oral 720 480 720 Output, Urine 1000 300 300 Physical Exam General Appearance: Alert, Oriented X3, Cooperative Skin: mild erythema pn left lower leg extremity Cardiovascular: Regular Rate, Normal S1, Normal S2 Lungs: Clear to Auscultation, Normal Air Movement Abdomen: Soft, No Tenderness, distended Neurological: Normal Speech, Normal Tone, Sensation Intact Extremities: LLE swelling, warm to touch (slightly warmer) compared to yesterday. Assessment/Plan Assessment: This is a 61-year-old morbidly obese man with a chronic history of venous insufficiency, CHF of 15-20% EF, ischemic cardiomyopathy, and on Lasix therapy presents for evaluation of left lower extremity swelling. Assessment and plan #Lower extremity swelling Cellulitic area swelling looks progressively better compared to previous days including admission date. However patient is still endorsing pain in her physical examination. The lower extremity leg febrile and no leukocytosis is noted, no need to change antibiotic course. Plan This is a non abscess/nonpurulent uncomplicated cellulitis . Will therefore continue cefazolin IV today and will switch to oral cephalexin 500 mg every 6 tomorrow for total antibiotic course of 7 days. f/u blood cultures #Social consult Patient doses a lot of life stresses in his home living arrangement complicates his health status as he is currently living in a truck. She is reluctant when offered options and help regarding placement. We had extensive discussion about the need for leg elevation and the negative mpact of sleeping in a car chair when it comes to his lower leg extremity swelling. #History of CHF Continue home meds including furosemide #History of ischemic cardiomyopathy Continue lisinopril and carvedilol #History of hypertension Continue lisinopril #History of diabetes NovoLog sliding scale Accu-Cheks 3 times a day and at bedtime # history of COPD [facility] nebs as needed Problem List: 1. Cellulitis of left lower leg Pain Ratin Pain Location: LLE Pain Goal: Pain 4 or less Pain Plan: OXCODONED OFR MODERATE PAIN Tomorrow's Labs & Rationales: BEP
--- NOTE | 2016-12-05 11:41 | PN- Cardiology ---
Subjective Subjective: Doing somewhat better today. Persistent left lower 70 edema noted no slightly improved. Some residual erythema with continued discomfort and tenderness noted. He does appear to be doing better. Objective Vital Signs and I&Os Vital Signs Date Time Temp Pulse Resp B/P Pulse O2 O2 Flow FiO2 Ox Delivery Rate 12/05 1022 62 128/82 12/05 1022 62 128/82 12/05 0619 98.3 59 19 114/68 98 Nasal 3.0L Cannula 12/05 0000 Nasal 3.0L Cannula 12/04 2244 98.3 60 18 110/72 98 Nasal 3.0L Cannula 12/04 2132 98.3 60 18 110/72 12/04 1600 98 Nasal 3.0L Cannula 12/04 1416 97.7 64 22 120/60 97 Intake & Output 12/05 1600 12/05 0812/05 0000 12/04 1600 12/04 0812/04 0000 Intake Total 343 999 6862 300 480 Output Total 300 300 Balance 031 644 8688 300 480 Intake, IV 200 0 Intake, Oral 066 100 3191 300 480 Number 0 Bowel Movements Output, Urine 300 300 Current Medications: Current Medications Sig/Keaton Start time Last Medication Dose Route Stop Time Status Admin Acetaminophen 650 MG Q4P PRN 12/02 213 AC PO Albuterol Sulfate 2 PUF Q4-6 PRN PRN 12/02 2000 AC 12/03 INH 0842 Atorvastatin Calcium 20 MG DAILY@1700 12/03 1700 AC 12/04 PO 1615 Budesonide/ 1 PUF BID 12/02 2200 AC 12/05 Formoterol Fumarate INH 1022 Carvedilol 12.5 MG BID 12/02 2199 AC 12/05 PO 1022 Cefazolin Sodium 2 GM IQ8 12/03 0000 AC 12/05 N/A 1 UNIT IV 0841 Ferrous Sulfate 325 MG DAILY 12/03 1000 AC 12/05 PO 1022 Furosemide 40 MG 0730,1630 12/03 0730 AC 12/05 PO 0652 Heparin Sodium 5,000 UNIT Q8 12/02 2199 AC 12/05 (Porcine) SC 0530 Hydroxyzine HCl 100 MG BID 12/02 2199 AC 12/05 PO 1022 Insulin Aspart 0 TIDAC 12/03 0800 AC 12/04 SC 0750 Lisinopril 20 MG DAILY 12/03 1000 AC 12/05 PO 1022 Montelukast Sodium 10 MG AT BEDTIME 12/02 2200 AC 12/04 PO 2132 Oxycodone HCl 5 MG Q6 PRN 12/03 0945 AC 12/05 PO 0654 Patient Medication 1 ED .[facility] [[email or web address]]MED ONE 12/04 1334 [place] Teaching ED 12/04 1335 Potassium Chloride 20 MEQ DAILY 12/03 1000 AC 12/05 PO 1022 Results Last 48 Hrs of Labs/Mics: Laboratory Tests 12/05/16 1113: Sodium Pending, Potassium Pending, Chloride Pending, Carbon Dioxide Pending, Anion Gap Pending, BUN Pending, Creatinine Pending, BUN/Creatinine Ratio Pending 12/05/16 0640: Anion Gap 6, Estimated GFR 57 L, BUN/Creatinine Ratio 13.1 12/04/16 0733: Anion Gap 6, Estimated GFR 57 L, BUN/Creatinine Ratio 19.2, CBC w Diff NO MAN DIFF REQ, RBC 3.66 L, MCV 81.8, MCH 26.4 L, RDW 15.0 H, MPV 7.4, Gran % 61.2, Lymphocytes % 27.3, Monocytes % 9.0, Eosinophils % 2.2, Basophils % 0.3, Absolute Granulocytes 4.6, Absolute Lymphocytes 2.1, Absolute Monocytes 0.7 H, Absolute Eosinophils 0.2, Absolute Basophils 0, PUBS MCHC 32.2 L Assessment/Plan Assessment/Plan Assessment: 1. Left lower extremity edema with cellulitis 2. History of nonischemic cardiomyopathy with low ejection fraction 3. Recent defibrillator implantation 4. Chronic lower extremity edema, worse on the left side, with evidence of venous insufficiency and stasis changes 5. Mild hyponatremia 6. History of low TSH 7. History of chronic systolic heart failure 8. History of hypertension 9. History of diabetes Recommendations: -I agree with the current management as outlined by the medical team. -IV antibiotics today with probable transition to oral antibiotics tomorrow -For now, continue all conservative management measures for lower extremity edema including leg elevation, etc. - repeat sodium level pending today -At the time of the last admission, the patient's TSH was 0.1, if possible please recheck TSH level to rule out abnormality -Out of bed as tolerated -Discharge planning as per the medical team -Pain management as per the medical team. -The patient already has a follow-up visit scheduled [facility] in 1-1/2 weeks as an outpatient. Continue telemetry? No
--- NOTE | 2016-12-05 13:07 | PN- Att Addend ---
Attending MD Review Statement Attending Statement Attending MD Statement: examined this patient, discuss w/resident/PA/CHARCOAL UNLOADER, agreed w/resident/PA/CHARCOAL UNLOADER, reviewed EMR data (avail), discussed w/nursing, discussed w/ case mgmt Attending Assessment/Plan: Pt stays in the truck with his dog and does not have a home. Cellulitis improving with abx. Pt has chronic edema of the left leg which is getting worse as he sleeps sitting up and does not lay down due to sob and also sleeping in the truck. Also has sleep apnea but not willing to use his cpap machine. d/w him the importance of leg elevation and how it will help prevent infections. CHF systolic chronic with ef of 15-20%, pt eats outside most of the times , which may be contributing further to his worsening leg edema. 210- his leg appears red and warm still.Plan is to continue iv abx for now and if doing better dc him on po abx tomorrow. d/w pt to move from his truck and rent a home but pt is not willing to do that at this point of time.
[2016-12-05 14:39] VITALS: BP 128/80
[2016-12-05 21:48] VITALS: BP 124/80
[2016-12-06 06:00] VITALS: BP 132/70
[2016-12-06] MEDS ORDERED: CEPHALEXIN500 M3 PO (08:10)
--- NOTE | 2016-12-06 08:17 | Patient Discharge Instructions ---
Discharge Instructions General Discharge Information You were seen/treated for: LEFT LEG CELLULITIS Special Instructions: PLEASE FOLLOW UP WITH YOUR PRIMARY CARE IN 1 WEEK PLEASE CONTINUE TAKING ANTIBIOTICS TILL ALL TAKEN (CEPHALEXIN) PLEASE ELEVATE YOUR LEGS TO HELP DECREASE SWELLING. PLEASE FOLLOW UP WITH YOUR DREDGE DECKHAND WITHIN 1 WEEK Diet Recommended Diet: Diabetic Acute Coronary Syndrome Inclusion Criteria At DC or during hospital stay patient has or had the following: ACS DIAGNOSIS No Discharge Core Measures Meds if any: Prescribed or Continued at Discharge Meds if any: NOT Prescribed or Continued at Discharge Congestive Heart Failure Inclusion Criteria At DC or during hospital stay patient has or had the following: CHF DIAGNOSIS No Discharge Core Measures Meds if any: Prescribed or Continued at Discharge Meds if any: NOT Prescribed or Continued at Discharge Cerebrovascular accident Inclusion Criteria At DC or during hospital stay patient has or had the following: CVA/TIA Diagnosis No Discharge Core Measures Meds if any: Prescribed or Continued at Discharge Meds if any: NOT Prescribed or Continued at Discharge Venous thromboembolism Inclusion Criteria VTE Diagnosis No VTE Type NONE VTE Confirmed by (Test) NONE Discharge Core Measures - Per Current guidelines, there needs to be overlap - treatment for the first 5 days of Warfarin therapy. - If discharged on Warfarin prior to 5 days of - overlap therapy, the patient will need to be - assessed for post discharge needs including - *Post discharge parental anticoagulation - *Warfarin and/or parental anticoagulation education - *Follow up date to check INR post discharge At least 5 days overlap therapy as Inpatient No Meds if any: Prescribed or Continued at Discharge Note: Overlap Therapy is Warfarin and Anticoagulant Meds if any: NOT Prescribed or Continued at Discharge
[2016-12-06 09:11] VITALS: BP 132/70
[2016-12-06] MEDS ORDERED: PERCOCET 5-3251 EACH PO (11:39)
--- NOTE | 2016-12-06 13:30 | PN- Housestaff ---
Subjective Follow-up For: Lower leg cellulitis Subjective: Patient is seen and examined at bedside. He reports that his leg swelling and pain is significantly better compared to previous days. He does not endorse any acute complaints including chest pain, palpitation, fever, chills, shortness of breath, nausea, vomiting, abdominal pain or dysuria. No acute overnight event reported by nursing staff. Review of Systems Constitutional: Reports: see HPI. Objective Last 24 Hrs of Vital Signs/I&O ... Physical Exam General Appearance: Alert, Oriented X3, Cooperative Other Physical Findings: Skin: mild erythema pn left lower leg extremity Cardiovascular: Regular Rate, Normal S1, Normal S2 Lungs: Clear to Auscultation, Normal Air Movement Abdomen: Soft, No Tenderness, distended Neurological: Normal Speech, Normal Tone, Sensation Intact Extremities: LLE swelling, warm to touch (slightly warmer) compared to yesterday. Current Medications: .. Last 24 Hrs of Lab/Joaquim Results Last 24 Hrs of Labs/Mics: ... Assessment/Plan Assessment: This is a 61-year-old morbidly obese man with a chronic history of venous insufficiency, CHF of 15-20% EF, ischemic cardiomyopathy, and on Lasix therapy presents for evaluation of left lower extremity swelling. Assessment and plan #Lower extremity swelling Cellulitic area swelling looks progressively better compared to previous days including admission date. However patient is still endorsing pain in her physical examination. The lower extremity leg febrile and no leukocytosis is noted, no need to change antibiotic course. Plan This is a non abscess/nonpurulent uncomplicated cellulitis . today will switch to oral cephalexin 500 mg every 6 tomorrow for total antibiotic course of 7 days. #Social consult Patient doses a lot of life stresses in his home living arrangement complicates his health status as he is currently living in a truck. She is reluctant when offered options and help regarding placement. We had extensive discussion about the need for leg elevation and the negative mpact of sleeping in a car chair when it comes to his lower leg extremity swelling. #History of CHF Continue home meds including furosemide #History of ischemic cardiomyopathy Continue lisinopril and carvedilol #History of hypertension Continue lisinopril #History of diabetes NovoLog sliding scale Accu-Cheks 3 times a day and at bedtime # history of COPD [facility] nebs as needed Problem List: 1. Cellulitis of left lower leg Pain Ratin Pain Location: Lower extremity Pain Goal: Pain 4 or less Pain Plan: Continue oxycodone from under pain Tomorrow's Labs & Rationales: None-scheduled for discharge today
--- NOTE | 2016-12-06 14:24 | PN- Att Addend ---
Attending MD Review Statement Attending Statement Attending MD Statement: examined this patient, discuss w/resident/PA/[employer] DRIER, agreed w/resident/PA/[employer], reviewed EMR data (avail), discussed w/nursing Attending Assessment/Plan: Laboratory Tests 12/06 615 Chemistry Sodium (137 - 145 mmol/L) 142 Potassium (3.5 - 5.1 mmol/L) 4.5 Chloride (98 - 107 mmol/L) 97 L Carbon Dioxide (22 - 30 mmol/L) 36 H Anion Gap (5 - 16) 9 BUN (9 - 20 mg/dL) 25 H Creatinine (0.7 - 1.2 mg/dL) 1.3 H Estimated GFR (>60 ml/min) 57 L BUN/Creatinine Ratio (7 - 25 %) 19.2 Vital Signs Date Time Temp Pulse Resp B/P Pulse O2 O2 Flow FiO2 Ox Delivery Rate 12/06 0911 67 132/70 12/06 0911 67 132/70 12/06 0800 Nasal 3.0L Cannula 12/06 0600 98.4 67 20 132/70 96 Nasal 3.0L Cannula 12/06 0000 Nasal 3.0L Cannula 12/05 2203 80 120/70 12/05 2148 98.0 61 20 124/80 97 12/05 1439 97.9 60 18 128/80 97 Nasal 3.0L Cannula VS stable. Examination of leg reveals redness is resolved but still feels little warm and has chronic stasis dermatitis changes. pt will be dced home on po keflex. d/w pt the care plan.
--- NOTE | 2016-12-09 00:47 | Discharge Summary ---
Visit Information Visit Dates Admission Date: 12/02/16 Discharge Date: 12/06/16 Hospital Course Course Attending Physician: TG HARPER,BAILEY Stahl Primary Care Physician: UNKNOWN Other Care Providers: Doris HARPER, [facility] Course: This is a 61-year-old morbidly obese gentleman with a past medical history of nonischemic cardiomyopathy, recent pacemaker and defibrillator (2016),CHF with EF of 15-20%, chronic venous stasis with lower extremity edema, COPD, diabetes, dyslipidemia presents to [place] ED after being sent by his commodity merchant Dr. Cuellar for evaluation of left lower extremity erythema and swelling. Patient also had a history of chronic venous insufficiency which was exacerbated by his current living arrangement where he lives in his truck. Vital signs on admission were stable. Exam: Chest b/l clear, Heart S1S2 regular, LE: b/l LE pitting edema, LLE 3+ edema extending upto thigh with erythema, warmth and tenderness. Chronic venous stasis+, no open wounds or ulcers. Peripheral pulses are feeble due to edema. Neuro intact. Labs: no leukocytosis, H/H 9.2/28.4 (stable), bicarb 31, BUN 31, creat 1.4 ( previously 0.8, was in ATN with creatinine upto 7.1), LE dopplers neg. Patient was admitted for management and evaluation of left leg cellulitis. Patient was started on cefazolin 2 g every 8h. Examination of the left extremity on subsequent days after initiation of antibiotic therapy showed marked improvement of the erythema and tenderness of the affected left extremity. Patient also continued to receive IV furosemide diuresis for his chronic lower extremity venous insufficiency. Pt was discharged with cephalexin 500mg q 6h to complete a total 14 day course of ABX treatment. Regarding his social issue of living in a truck, neonatal social worker consult was obtained. Despite numerous persuasion from medical team and neonatal social worker, pt was not receptive to any logistical assistance in finding an apartment/living place. He was adamant that he will continue to stay in his truck until he comes up by his own means, sufficient funds to move to a house. Allergies: Coded Allergies: NO KNOWN ALLERGIES (02/25/16) Disposition Summary Disposition Principal Diagnosis: Cellulitis Additional Diagnosis: Venous Insufficiency Discharge Disposition: home or self care Discharge Instructions General Discharge Information Code Status: Full Code Patient's Diet: DIABETIC Patient's Activity: As tolerated Follow-Up Instructions/Appts: Pt is to complete course of ABX. Medications at Discharge Discharge Medications: Continue taking these medications: Fluticasone/Salmeterol (Advair 500-50 Diskus) 500 MCG-50 MCG/DOSE BLST.W.DEV 1 Puff Inhale through mouth TWICE DAILY Qty = 60 Comments: NOT GIVEN IN HOSPITAL Umeclidinium [place] (Incruse Ellipta) 62.5 MCG/ACTUATION BLST.W.DEV 1 PUFF Inhale through mouth DAILY Qty = 90 Comments: NOT GIVEN IN HOSPITAL Carvedilol (Carvedilol) 12.5 MG TABLET 1 Tablet ORAL TWICE DAILY Comments: Last Taken: 12/06/16 Time: 10AM Albuterol Sulfate (Proair Hfa) 90 MCG HFA.AER.AD 2 Puff Inhale through mouth EVERY 4-6 HOURS NEEDED as needed for COPD Comments: NOT GIVEN IN HOSPITAL Glimepiride (Glimepiride) 1 MG TABLET 1 Tablet ORAL TWICE DAILY Comments: NOT GIVEN IN HOSPITAL Montelukast Sodium (Singulair) 10 MG TABLET 1 Tablet ORAL DAILY Comments: Last Taken: 12/05/16 Time: 10 PM Atorvastatin Calcium (Lipitor) 20 MG TABLET 1 Tablet ORAL DAILY Comments: Last Taken: 12/05/16 Time: 5PM Lisinopril (Lisinopril) 20 MG TABLET 1 Tablet ORAL DAILY Comments: Last Taken: 12/06/16 Time: 10 AM Metformin HCl (Glucophage) 1,000 MG TABLET 1 Tablet ORAL TWICE DAILY Comments: NOT GIVEN IN HOSPITAL Furosemide (Lasix) 40 MG TABLET 1 Tablet ORAL TWICE DAILY Comments: Last Taken: 12/06/16 Time: 6AM Hydroxyzine HCl (Hydroxyzine HCl) 50 MG TABLET 100 Milligram ORAL TWICE DAILY Comments: Last Taken: 12/06/16 Time: 10AM Ferrous Sulfate (IRON) 325 MG (65 MG IRON) TABLET 1 Tablet ORAL DAILY Comments: Last Taken: 12/06/16 Time: 10AM Potassium Chloride (Klor-Con M20) 20 MEQ TAB.ER.PRT 1 Tablet ORAL DAILY Comments: Last Taken: 12/06/16 Time: 10AM Naproxen Sodium (Naproxen Sodium) 220 MG TABLET 4 Tablet ORAL TWICE DAILY as needed for PAIN Comments: NOT GIVEN IN HOSPITAL Start taking the following new medications: Cephalexin (Cephalexin) 500 MG CAPSULE 1 Tablet ORAL Q6H Qty = 16 No Refills Comments: NOT GIVEN IN HOSPITAL Oxycodone HCl/Acetaminophen (Percocet 5-325 MG Tablet) 5 MG-325 MG TABLET 1 Tablet ORAL EVERY 4-6 HOURS NEEDED as needed for LEG PAIN Qty = 18 No Refills Comments: NOT GIVEN IN HOSPITAL Copies To: Julia CUELLAR MD Attending MD Review Statement Documenting Attending: BAILEY MAS MD Other Findings: agree with the above discharge plan.
== END 2016-12-06 14:57 | DRG 603 ==
LOC: ENRESERVTM → ENRESERVDT → ERH 14:37 → ENPENDDIS 16:33 → 2NA 16:33 → ERHI 16:33 → 2NA 19:59
PROVIDERS: Emergency Medicine; Internal Medicine; Student in an Organized Health Care Education/Training Program; ADMIT Internal Medicine
DX: L03.116 Cellulitis of left lower limb (principal); J96.11 Chronic respiratory failure with hypoxia; I42.9 Cardiomyopathy, unspecified; Z99.81 Dependence on supplemental oxygen; I11.0 Hypertensive heart disease with heart failure; I50.22 Chronic systolic (congestive) heart failure; Z68.42 Body mass index [BMI] 45.0-49.9, adult; E66.01 Morbid (severe) obesity due to excess calories; J44.9 Chronic obstructive pulmonary disease, unspecified; I87.2 Venous insufficiency (chronic) (peripheral)
CPT/HCPCS: 2NASP; 36415; 82436; 87040; 93005; 93010; 96374; J0690; J1644; J1940; J3490

== ENCOUNTER 2017-01-08 08:02 | Inpatient (IN) | payer OTHER, MEDICARE ==
[~2017-01-08] VITALS: Ht 182.9 cm; Wt 165.6 kg
[~2017-01-08 08:02] MED LIST changes: +CARVEDILOL12.5 M1 PO; +CEPHALEXIN500 M3 PO; +GLIMEPIRIDE1 M1 PO; +GLUCOPHAGE1000 M1 PO; +INCRUSE ELLI62.5 MCG INH; +IRON325 M3 PO; +LIPITOR20 M2 PO; +NAPROXEN SODIU220 MG PO; +PERCOCET 5-3251 EACH PO; +PROAIR HFA8.5 GM INH
--- NOTE | 2017-01-08 08:17 | ED DYSPNEA/ASTHMA COMPLAINT ---
History of Present Illness General Chief Complaint: Chest Pain Stated Complaint: CP,SOB,PNA? Source: patient, old records Exam Limitations: no limitations Allergies Coded Allergies: NO KNOWN ALLERGIES (02/25/16) Reconcile Medications Albuterol Sulfate (Proair Hfa) 90 MCG HFA.AER.AD 2 PUF INH Q4-6 PRN PRN COPD (Reported) Atorvastatin Calcium (Lipitor) 20 MG TABLET 1 TAB PO DAILY CHOLESTEROL ( Reported) Carvedilol 12.5 MG TABLET 1 TAB PO BID HEART (Reported) Ferrous Sulfate (IRON) 325 MG (65 MG IRON) TABLET 1 TAB PO DAILY SUPPLEMENT ( Reported) Fluticasone/Salmeterol (Advair 500-50 Diskus) 500 MCG-50 MCG/DOSE BLST.W.DEV 1 PUF INH BID COPD (Reported) Furosemide (Lasix) 40 MG TABLET 1 TAB PO BID DIURETIC (Reported) Glimepiride 1 MG TABLET 1 TAB PO BID DM (Reported) Hydroxyzine HCl 50 MG TABLET 100 MG PO BID MUCUS (Reported) Lisinopril 20 MG TABLET 1 TAB PO DAILY BP (Reported) Metformin HCl (Glucophage) 1,000 MG TABLET 1 TAB PO BID DM (Reported) Montelukast Sodium (Singulair) 10 MG TABLET 1 TAB PO DAILY RESPIRATORY ( Reported) Naproxen Sodium 220 MG TABLET 4 TAB PO BID PRN PAIN (Reported) Potassium Chloride (Klor-Con M20) 20 MEQ TAB.ER.PRT 1 TAB PO DAILY SUPPLEMENT (Reported) Umeclidinium [place] (Incruse Ellipta) 62.5 MCG/ACTUATION BLST.W.DEV 1 PUFF INH DAILY COPD (Reported) Triage Note: 61 YEAR OLD MALE TO ER WITH COMPLAINTS OF SOB/CP FOR THE PAST 1.5-2 WEEKS. PT NOTED WITH WHEEZING, HAS HISTORY OF COPD/CHF, PT SOB WHILE TRYING TO TALK, WET PRODUCTIVE COUGH,STATES THAT WHEN HE COUGHS THERE IS BRIGHT RED BLOOD BLE EDEMA, O2 SAT 88-89 % RA,STATES THAT HE USES O2 AT HOME BUT CAME TO ER WITHOUT IT . USES 3L AT HOME COMPLAINS OF ALL OVER CP WHEN HE TAKES DEEP BREATH, PACED ON MONITOR HR 82. Triage Nurses Notes Reviewed? yes HPI: Patient is a 61-year-old male presents complaining of cough with sputum production, dyspnea onset yesterday. Patient reports yesterday he was having hemoptysis. Chest pain with cough. Associated subjective fevers and positive chills. Patient reports he had a chest x-ray one week ago but is unsure of the results. Chronic bilateral lower extremity edema. Chest pain is severe with cough. Patient reports dyspnea is moderate to severe, mild improvement yesterday using his inhaler, patient has not used his inhaler at all today. Patient was admitted to the hospital approximately one month ago for cellulitis. (GEOVANNA HAMEED) Vital Signs & Intake/Output Vital Signs & Intake/Output Vital Signs Date Time Temp Pulse Resp B/P Pulse O2 O2 Flow FiO2 Ox Delivery Rate 01/08 1056 98.6 64 26 146/69 97 Nasal 4.0L Cannula 01/08 0944 97.8 77 24 133/77 98 Nasal 3.0L Cannula 01/08 0900 97 Nasal 3.0L Cannula 01/08 0806 99.6 88 22 133/73 90 Room Air Past History Travel History Traveled to [place] past 21 day No Medical History Any Pertinent Medical History? see below for history Neurological: NONE EENT: NONE Cardiovascular: cardiomyopathy, CHF, chronic venous insuff, hypertension, hyperlipidemia Respiratory: COPD, SLEEP APNEA Gastrointestinal: NONE Hepatic: NONE Renal: NONE Musculoskeletal: NONE Psychiatric: NONE Endocrine: diabetes Blood Disorders: NONE Cancer(s): NONE FISHER MUSSEL/Reproductive: NONE History of MRSA: No History of VRE: No History of CDIFF: No Influenza Vaccine: 07/26/16 Surgical History Surgical History: Left orchiectomy 20+ yrs ago Psychosocial History Who do you live with Patient/Self Services at Home None What is your primary language Guatemalan Tobacco Use: Never used ETOH Use: denies use Illicit Drug Use: denies illicit drug use Family History Family History, If Any: FATHER Alzheimer's disease FHx: heart disease MOTHER, ; Cause: Heart disease. Relation not specified for: *No pertinent family history Hx Contributory? Yes (GEOVANNA HAMEED) Review of Systems Review of Systems Constitutional: Reports: chills, fever, malaise. EENTM: Reports: no symptoms. Respiratory: Reports: cough, hemoptysis, short of breath, wheezing. Cardiovascular: Reports: chest pain, edema, orthopena, peripheral edema. GI: Reports: nausea. Denies: abdominal pain, vomiting. Genitourinary: Reports: no symptoms. Musculoskeletal: Reports: no symptoms. Skin: Reports: no symptoms. Neurological/Psychological: Reports: no symptoms. Hematologic/Endocrine: Reports: no symptoms. Immunologic/Allergic: Reports: no symptoms. (GEOVANNA HAMEED) Physical Exam Physical Exam General Appearance: alert, awake, obese Head: atraumatic, normal appearance Eyes: Bilateral: normal appearance, PERRL, EOMI. Ears, Nose, Throat: normal pharynx, normal ENT inspection, hearing grossly normal Neck: normal inspection, supple, full range of motion Respiratory: DIFFUSE MODERATE INSPIRATORY AND EXPIRATORY WHEEZING WITH RHONCHI Cardiovascular: regular rate/rhythm Gastrointestinal: soft Extremities: 3+ BILATERAL LOWER EXTREMITY EDEMA Neurologic/Psych: awake, alert, oriented x 3 Skin: warm/dry Lymphatic: no anterior cervical rafi Core Measures ACS in differential dx? Yes ASA ordered for poss ACS? No-ACS ruled out Severe Sepsis Present: No Septic Shock Present: No (GEOVANNA HAMEED) Progress Differential Diagnosis: asthma, AMI, bronchitis, CHF, COPD, pulmonary embolism, pneumonia, unstable angina, TB Diagnostic Imaging: Viewed by Me: Radiology Read. Discussed w/RAD: Radiology Read. CXR Impression: PATIENT: SUZETTE GRIGSBY PRESENT AGE : 61 PATIENT ACCOUNT NO: [id number] : 59 LOCATION: [facility] ORDERING PHYSICIAN: GEOVANNA ESPINOZA SERVICE DATE: 01/08/17 EXAM TYPE: RAD - XRY-CHEST XRAY, PA AND LATERAL EXAMINATION: XR CHEST CLINICAL INFORMATION: Cough. Chills. Hemoptysis. COMPARISON: 01/02/2017 TECHNIQUE: 2 views of the chest were obtained. The frontal and lateral views are underexposed, and the lateral views are essentially nondiagnostic. FINDINGS: A dual-lead left-sided pacemaker is redemonstrated. Cardiomegaly is stable. There is mild central pulmonary vascular prominence, unchanged from 01/02/2017. The retrocardiac left lower lobe is not well visualized due to underexposure. Elsewhere, no convincing consolidation. No pneumothorax. No evidence of pleural effusion. The osseous structures are not well visualized due to technique. IMPRESSION: Underexposed radiographs redemonstrating cardiomegaly and mild central pulmonary vascular prominence. No convincing interval change from 01/02/2017. DICTATED BY: KIRSTIE MALHOTRA MD DATE/TIME DICTATED:01/08/17850 RADIO SCRIPT WRITER:FRED DATE/TIME TRANSCRIBED:01/08/17850 CONFIDENTIAL, DO NOT COPY WITHOUT APPROPRIATE AUTHORIZATION. <Electronically signed in Other Vendor System> SIGNED BY: KIRSTIE MALHOTRA MD 01/08/17 0857 Initial ED EKG: VENTRICULAR PACED, POOR BASELINE IN v4 AND v5, NO SIGNIFICANT ACUTE ekg CHANGES COMPARED TO PREVIOUS ekg Prior EKG: unchanged Rhythm Strip: PACEMAKER RHYTHM (GEOVANNA HAMEED) Plan of Care: Orders Procedure Date/time Status Heart Healthy Diet 01/08 B Active Admit to inpatient 01/08 1111 Active Patient Data 01/08 1103 Active Add-on Test (ER Only) 01/08 0902 Active RAPID VIRAL INFLUENZA A 01/08 0821 Complete B-TYPE NATRIURETIC PEP (BNP) 01/08 0820 Complete Telemetry/Payroll Professional 01/08 0818 Active BLOOD CULTURE 01/08 0818 Active TROPONIN LEVEL 01/08 0818 Complete PARTIAL THROMBOPLASTIN TIME 01/08 0818 Complete PROTHROMBIN TIME 01/08 0818 Complete LACTIC ACID 01/08 0818 Complete COMPREHENSIVE METABOLIC PANEL 01/08 0818 Complete CBC WITHOUT DIFFERENTIAL 01/08 0818 Complete TYPE & SCREEN (NOT X-MATCH) 01/08 0818 Complete EKG 01/08 0806 Active Laboratory Tests 01/08/17 1118: Lactic Acid Cancelled 01/08/17 0820: Anion Gap 11, Estimated GFR > 60, BUN/Creatinine Ratio 15.0, Glucose 123 H, Lactic Acid 1.5, Calcium 9.7, Total Bilirubin 1.2, AST 13 L, ALT 28, Alkaline Phosphatase 92, Troponin I 0.03, [id number]-M-Wtnszxdynkb Pept 6800 H, Total Protein 7.4, Albumin 3.9, Globulin 3.5, Albumin/Globulin Ratio 1.1, PT 11.2, INR 1.07, APTT 27, CBC w Diff NO MAN DIFF REQ, RBC 4.15 L, MCV 80.6, MCH 25.7 L, RDW 15.1 H, MPV 7.6, Gran % 83.0 H, Lymphocytes % 7.8 L, Monocytes % 8.7, Eosinophils % 0.2, Basophils % 0.3, Absolute Granulocytes 12.2 H, Absolute Lymphocytes 1.1 L, Absolute Monocytes 1.3 H, Absolute Eosinophils 0, Absolute Basophils 0, PUBS MCHC 31.9 L Microbiology 01/08 0857 BLOOD: Blood Culture - RECD 01/08 0840 NASOPHARYN: Influenza Virus A & B Rapid Smear - COMP 01/08 08 BLOOD: Blood Culture - RECD 01/08/2017 9:02:44 AM: Discussed with and seen by Dr. Estrada 01/08/2017 9:31:48 AM: Results of labs and chest x-ray discussed with patient. Patient awaiting nebulizer treatment. Elevated WBC, chills and subjective fevers. Suspect that dyspnea is Pneumonia vs COPD exacerbation. Possible component of CHF. Mild vascular congestion, unchanged from previous chest x- ray. Dr. George paged 01/08/2017 10:07:07 AM: Discussed with Dr. George: suspect that etiology is primarily respiratory in nature. Recommend re-assessment of patient after nebulizer. 01/08/2017 10:12:03 AM: Patient re-evaluated continues with moderate diffuse inspiratory and expiratory wheezing and rhonchi. Mil dincreased respiratory effort with talking, appears comfortable at rest. Hospitalist paged. (GEOVANNA HAMEED) Departure Departure Disposition: STILL A PATIENT Condition: Stable Clinical Impression Primary Impression: COPD exacerbation Referrals: UNKNOWN (PCP/Family) Departure Forms: Customer Survey General Discharge Information Admission Note Spoke With: RICK VACA MD Documentation of Exam: Documentation of any treatments & extenuating circumstances including Concerns Regarding Discharge (functional status, medication knowledge or non-compliance, living conditions, etc.) that warrant an admission rather than observation: TOTAL RESPIRATORY CARE, iv STEROIDS, ANTIBIOTICS, PULMONARY CONSULTATION, CONSIDER CARDIOLOGY CONSULTATION. (GEOVANNA HAMEED) PA/DREDGE PUMP OPERATOR Co-Sign Statement Statement: ED Attending supervision documentation- [x] I saw and evaluated the patient. I have also reviewed all the pertinent lab results and diagnostic results. I agree with the findings and the plan of care as documented in the PA's/DREDGE PUMP OPERATOR's documentation. [] I have reviewed the ED Record and agree with the PA's/DREDGE PUMP OPERATOR's documentation. [] Additions or exceptions (if any) to the PAs/DREDGE PUMP OPERATOR's note and plan are summarized below: [] (DIONICIO HARPER,SAL Cortes) Critical Care Note Critical Care Note Critical Care Time: non-applicable (GEOVANNA HAMEED)
--- NOTE | 2017-01-08 08:23 | NUR ---
RT CALLED FOR NEB. PT TO X-RAY.
--- NOTE | 2017-01-08 08:40 | NUR ---
FLU SWAB SENT.
[2017-01-08 08:46] LABS: PT 11.2 SEC (9.4-12.5); PTT 27 SEC (25-37)
--- NOTE | 2017-01-08 08:57 | RADIOLOGY REPORT ---
EXAMINATION: XR CHEST CLINICAL INFORMATION: Cough. Chills. Hemoptysis. COMPARISON: 01/02/2017 TECHNIQUE: 2 views of the chest were obtained. The frontal and lateral views are underexposed, and the lateral views are essentially nondiagnostic. FINDINGS: A dual-lead left-sided pacemaker is redemonstrated. Cardiomegaly is stable. There is mild central pulmonary vascular prominence, unchanged from 01/02/2017. The retrocardiac left lower lobe is not well visualized due to underexposure. Elsewhere, no convincing consolidation. No pneumothorax. No evidence of pleural effusion. The osseous structures are not well visualized due to technique. IMPRESSION: Underexposed radiographs redemonstrating cardiomegaly and mild central pulmonary vascular prominence. No convincing interval change from 01/02/2017.
[2017-01-08 09:18] LABS: ABSOLUTE BASOPHIL COUNT 0 /CUMM (0.0-0.2); ABSOLUTE EOSINOPHIL COUNT 0 /CUMM (0.0-0.7); ABSOLUTE GRANULOCYTE CT 12.2 /CUMM (1.4-6.5); ABSOLUTE LYMPH COUNT 1.1 /CUMM (1.2-3.4); ABSOLUTE MONOCYTE COUNT 1.3 /CUMM (0.10-0.60); BASOPHIL % 0.3 % (0.0-2.0); EOSINOPHIL % 0.2 % (0-5); HEMATOCRIT 33.5 % (42-52); MEAN CORPUSCULAR HGB 25.7 PG (27.0-31.0); MEAN CORPUSCULAR HGB CONC 31.9 G/DL (33.0-37.0); MEAN CORPUSCULAR VOLUME 80.6 FL (80.0-94.0); MEAN PLATELET VOLUME 7.6 FL (7.4-10.4); PLATELET COUNT 202 /CUMM (130-400); RBC DISTRIBUTION WIDTH 15.1 % (11.5-14.5); RED BLOOD CELL CT 4.15 /CUMM (4.70-6.10); WHITE BLOOD CELL COUNT 14.8 /CUMM (4.8-10.8)
--- NOTE | 2017-01-08 09:25 | NUR ---
ALEXIS CUADRA IN TO REVIEW POC. ANTICIPATE ADMISSION. PT AWAITING RT FOR NEB RX. ORDERED PT BREAKFAST. Informed waiting has been performed.
--- NOTE | 2017-01-08 11:00 | NUR ---
PT AMBULATORY TO BATHROOM WITH STEADY GAIT. AWAITING BED ASSIGNMENT ON GEN [place]haogang. Informed waiting has been performed.
--- NOTE | 2017-01-08 11:50 | NUR ---
HOUSESTAFF IN FOR EVAL.
[2017-01-08] MEDS ORDERED: PERCOCET 10-321 EACH PO (12:15)
--- NOTE | 2017-01-08 12:21 | History & Physical ---
LYNNE HARPER,ALEXANDRA 01/08/17 1220: General Information and HPI MD Statement: I have seen and personally examined SUZETTE GRIGSBY SR and documented this H&P. The patient is a 61 year old M who presented with a patient stated chief complaint of [progressively worsening shortness of breath associated with productive yellow-green phlegm with an episode of coughing up blood and subjective fever/chills.]. Source of Information: patient, old records Exam Limitations: no limitations History of Present Illness: This is 61 year old morbidly obese man with past medical history of COPD on 3 L home O2 or not on prednisone, nonischemic cardiomyopathy with EF of 15-20% status post PPM and defibrillator in August 2016, type 2 diabetes, hyperlipidemia, history of GI bleed who had prolonged complicated hospital course in July 2016 when he developed Escherichia coli septicemia in setting of pyelonephritis complicated with acute kidney injury requiring hemodialysis, acute respiratory failure requiring prolonged mechanical ventilator support who has recovered well from his acute illness now came from home with 10 days history of progressively worsening shortness of breath with associated productive yellow-green sputum and an episode of coughing up blood last night. He also complained of subjective fever since yesterday night with chills. 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 George of week ago for same symptoms and that time he had chest x-ray which was negative for any pulmonary edema. Due to his persistently progressively worsening symptoms where he required to increase his oxygen requirement of 4 L with frequent inhaler use patient came to ER for further evaluation. On arrival in ER patient's vitals were T 99.6 HR 88, RR 22, BP 133/73, O2 sat 90 % on room air. Patient received nebulizer treatment with IV Solu-Medrol and IV antibiotics in ER with some symptom improvement. Patient had another episode of coughing up blood in ER. He sees Dr. Acevedo for his COPD And Dr. George for nonischemic cardiomyopathy Allergies/Medications Allergies: Coded Allergies: NO KNOWN ALLERGIES (02/25/16) Home Med list Albuterol Sulfate (Proair Hfa) 90 MCG HFA.AER.AD 2 PUF INH Q4-6 PRN PRN COPD (Reported) Atorvastatin Calcium (Lipitor) 20 MG TABLET 1 TAB PO 1700 HYPERLIPIDEMIA ( Reported) Carvedilol 12.5 MG TABLET 1 TAB PO BID HEART (Reported) Ferrous Sulfate (IRON) 325 MG (65 MG IRON) TABLET 1 TAB PO DAILY SUPPLEMENT ( Reported) Fluticasone/Salmeterol (Advair 500-50 Diskus) 500 MCG-50 MCG/DOSE BLST.W.DEV 1 PUF INH BID COPD (Reported) Furosemide (Lasix) 40 MG TABLET 1 TAB PO BID DIURETIC (Reported) Glimepiride 1 MG TABLET 1 TAB PO BID DM (Reported) Hydroxyzine HCl 50 MG TABLET 100 MG PO BID MUCUS (Reported) Lisinopril 20 MG TABLET 1 TAB PO DAILY BP (Reported) Metformin HCl (Glucophage) 1,000 MG TABLET 1 TAB PO BID DM (Reported) Montelukast Sodium (Singulair) 10 MG TABLET 1 TAB PO DAILY RESPIRATORY ( Reported) Naproxen Sodium 220 MG TABLET 4 TAB PO BID PRN PAIN (Reported) Oxycodone HCl/Acetaminophen (Percocet 10-325 MG Tablet) 10 MG-325 MG TABLET 1 TAB PO 4 TIMES/DAY PRN PAIN (Reported) Potassium Chloride (Klor-Con M20) 20 MEQ TAB.ER.PRT 1 TAB PO DAILY SUPPLEMENT (Reported) Umeclidinium [place] (Incruse Ellipta) 62.5 MCG/ACTUATION BLST.W.DEV 1 PUFF INH DAILY COPD (Reported) Compliance With Home Meds: FAIR Past History Travel History Traveled to [place] past 21 day No Medical History Neurological: NONE EENT: NONE Cardiovascular: cardiomyopathy, CHF, chronic venous insuff, hypertension, hyperlipidemia Respiratory: COPD, SLEEP APNEA Gastrointestinal: NONE Hepatic: NONE Renal: NONE Musculoskeletal: NONE Psychiatric: NONE Endocrine: diabetes Blood Disorders: NONE Cancer(s): NONE BUSHEL GIRL/Reproductive: NONE History of MRSA: No History of VRE: No History of CDIFF: No Influenza Vaccine: 07/26/16 Surgical History Surgical History: Left orchiectomy 20+ yrs ago ECHO Results (as available) Date of last Echo 12/02/15 EF% 15 Past Family/Social History Family History Relations & Conditions if any FATHER Alzheimer's disease FHx: heart disease MOTHER, ; Cause: Heart disease. Relation not specified for: *No pertinent family history Psychosocial History Where do you live? Other (homeless lives in his truck) Who Do You Live With? self Services at Home: Oxygen Primary Language: Tajik ETOH Use: denies use Illicit Drug Use: denies illicit drug use Functional Ability ADLs Independent: dressing, eating, toileting, bathing. Ambulation: independent IADLs Independent: shopping, housework, finances, food prep, telephone, transportation , medication admin. Review of Systems Review of Systems Constitutional: Reports: chills, fever, weakness. EENTM: Denies: visual changes. Cardiovascular: Reports: chest pain, orthopena, peripheral edema. Denies: palpitations. Respiratory: Reports: cough, short of breath, sputum production, wheezing. GI: Denies: abdominal pain, diarrhea, nausea, vomiting. Genitourinary: Denies: dysuria. Musculoskeletal: Denies: back pain. Skin: Denies: rash. Neurological/Psychological: Denies: confusion. Exam & Diagnostic Data Last 24 Hrs of Vital Signs/I&O Vital Signs Date Time Temp Pulse Resp B/P Pulse O2 O2 Flow FiO2 Ox Delivery Rate 01/08 1317 98.2 72 22 137/69 99 Nasal 4.0L Cannula 01/08 1300 98.6 64 26 146/69 01/08 1300 98.6 64 26 146/69 01/08 1056 98.6 64 26 146/69 97 Nasal 4.0L Cannula 01/08 0944 97.8 77 24 133/77 98 Nasal 3.0L Cannula 01/08 0900 97 Nasal 3.0L Cannula 01/08 0806 99.6 88 22 133/73 90 Room Air Intake & Output 01/08 1600 01/08 0800 01/08 0000 Intake Total Output Total Balance Patient 349 lb Weight Physical Exam General Appearance Alert, Oriented X3, Cooperative, Moderate Distress Skin No Rashes HEENT Atraumatic, PERRLA, EOMI, Mucous Membr. moist/pink Neck Supple, No JVD Cardiovascular Normal S1, Normal S2, No Murmurs Lungs bilateral extensive audible wheeze Abdomen Normal Bowel Sounds, Soft, No Tenderness Neurological Normal Speech, Normal Tone, Sensation Intact Extremities Normal Pulses, b/l pedal edema Vascular Normal Pulses, Pulses Symmetrical Last 24 Hrs of Labs/Joaquim: Laboratory Tests 01/08/17 1118: Lactic Acid Cancelled 01/08/17 0820: Anion Gap 11, Estimated GFR > 60, BUN/Creatinine Ratio 15.0, Glucose 123 H, Lactic Acid 1.5, Calcium 9.7, Total Bilirubin 1.2, AST 13 L, ALT 28, Alkaline Phosphatase 92, Troponin I 0.03, Kvk-W-Skjroqywbtg Pept 6800 H, Total Protein 7.4, Albumin 3.9, Globulin 3.5, Albumin/Globulin Ratio 1.1, PT 11.2, INR 1.07, APTT 27, CBC w Diff NO MAN DIFF REQ, RBC 4.15 L, MCV 80.6, MCH 25.7 L, RDW 15.1 H, MPV 7.6, Gran % 83.0 H, Lymphocytes % 7.8 L, Monocytes % 8.7, Eosinophils % 0.2, Basophils % 0.3, Absolute Granulocytes 12.2 H, Absolute Lymphocytes 1.1 L, Absolute Monocytes 1.3 H, Absolute Eosinophils 0, Absolute Basophils 0, PUBS MCHC 31.9 L Microbiology 01/08 133 URINE ROUT: Legionella Antigen - ORD 01/08 133 URINE ROUT: Streptococcus pneumoniae Antigen (M - ORD 01/08 1334 LOWER RESP: Respiratory Culture - ORD 01/08 133 LOWER RESP: Gram Stain - ORD 01/08 0857 BLOOD: Blood Culture - RECD 01/08 0840 NASOPHARYN: Influenza Virus A & B Rapid Smear - COMP 01/08 0820 BLOOD: Blood Culture - RECD Diagnostic Data EKG Results A sense V paced rhythm at rate of 64, QTC 487 CXR Results A dual-lead left-sided pacemaker is redemonstrated. Cardiomegaly is stable. There is mild central pulmonary vascular prominence, unchanged from 01/02/2017. The retrocardiac left lower lobe is not well visualized due to underexposure. Elsewhere, no convincing consolidation. No pneumothorax. No evidence of pleural effusion. The osseous structures are not well visualized due to technique. Other Results This Assessment/Plan Assessment: This is 61 year old morbidly obese man with past medical history of COPD on 3 L home O2 or not on prednisone, nonischemic cardiomyopathy with EF of 15-20% status post PPM and defibrillator in August 2016, type 2 diabetes, hyperlipidemia, history of GI bleed came from home with chief complaint of progressively worsening shortness of breath associated with productive cough and subjective fever and chills. On exam patient noted having significant wheezing. Labs are consistent with leukocytosis. 1. Acute COPD exacerbation with chronic respiratory failure - Admit to general medicine floor - Supplement O2 -Patient received IV ceftriaxone and azithromycin in ER, will continue IV azithromycin - Chest x-ray did not reveal any evidence of infiltrate - Continue IV Solu-Medrol - TRC treatment and Symbicort - Pulmonary consult in a.m. - Follow-up sputum culture, and urinary and strep and Legionella antigen -Follow-up blood culture 2. Nonischemic cardiomyopathy status post PPM and defibrillator placement -well compensated - Continue beta angel, Lasix - Strict LEYDA's and daily weight 3. Hypertension - Continue home dose lisinopril 20 mg daily 4. Hyperlipidemia Continue statin 5. Type 2 diabetes Hold oral hypoglycemic agent including metformin and glipizide Start NovoLog sliding scale Diabetic diet Accu-Cheks 3 times a day before meals and at night 6. DVT prophylaxis Mechanical 7. Full code As Ranked By This Provider Problem List: 1. COPD with acute exacerbation 2. Cardiomyopathy 3. Hypertension 4. Anemia Core Measures/Miscellaneous Acute Coronary Syndrome ACS Diagnosis: No Cerebrovascular Accident CVA/TIA Diagnosis: No Congestive Heart Failure CHF Diagnosis: Yes Date of most recent Echo: 12/02/15 Last Known EF %: 15 BON/ARB for EF <40%: Yes Venous Thromboembolism VTE Risk Factors: Age > 40, Obesity No [facility] VTE prophylaxis d/t: No contraindications No VTE Pharm Prophylaxis d/t: Active bleeding VTE Diagnosis: No VTE Type: NONE VTE Confirmed by (Test): NONE Severe Sepsis Severe Sepsis Present: No Septic Shock Septic Shock Present: No Miscellaneous Documentation Attending Case Discussed With: SACHIN WADDELL M.D Primary Care Physician: UNKNOWN Patient sees these Specialists Dr. Kwame George Level of Patient Care: General Medicine Consults Needed: Consulting Specialty: Pulmonary Disease Consulting Physician: Dr. Puente Reason for Consult: copd exacerbation SACHIN WADDELL MD 01/08/17 2154: Attending MD Review Statement Attending Statement Attending MD Statement: examined this patient, discuss w/resident/PA/LAMP TESTER AND INSPECTOR, agreed w/resident/PA/LAMP TESTER AND INSPECTOR, reviewed EMR data (avail), discussed with nursing, discussed with case mgmt, amended to note Attending Assessment/Plan: Patient is an unfortunate 61-year-old homeless male with an extensive medical history who presents to the emergency room with complaints of worsening shortness of breath. His history significant For Oxygen Dependent COPD He Reports Compliance with His Medications but Reports Progressively Worsening Shortness of Breath. He Admits to Cough Productive of Occasional Yellow Sputum. He Denies Fever or Chills. He Denies Any Sick Contacts or Travel outside the State. On arrival in the emergency room he was afebrile and hemodynamically stable. He is noted to be wheezing significantly despite bronchodilator therapy emergency room. Chest x-ray shows no infiltrates to suggest an infectious process. His laboratory data is significant for leukocytosis. As symptoms persisted following treatment in the emergency room and referred to the inpatient medical service for further management. He received bronchodilator therapy IV steroids and IV antibiotic therapy in the ER. On examination patient was not in any respiratory distress. He has no jugular venous distention. There are no peripheral edema. He has diffuse rhonchorous breath sounds bilaterally. Recommendations: -Admit to inpatient general medical service. -Bronchodilator therapy and systemic steroid therapy with Solu-Medrol IV. -No convincing evidence of infectious process at present. Continue Zithromax only for now. -Continue his cardiac regimen. He does not appear volume overloaded we'll continue his home dose of Lasix.
--- NOTE | 2017-01-08 12:35 | NUR ---
DR CUELLAR AT BEDSIDE.
--- NOTE | 2017-01-08 12:40 | NUR ---
YESENIA SALCEDO. ENGINEERING CALLED.
--- NOTE | 2017-01-08 12:52 | NUR ---
ENGINEERING AT BEDSIDE WITH FAN PER PT REQUEST.
--- NOTE | 2017-01-08 13:00 | NUR ---
Emergency Dept [facility] Admit Note: To be admitted to [facility] by DR WADDELL with COPD EXACERBATION as the diagnosis, to [id number] location. Nursing Meter Record Clerk and admitting notified 01/08/17 at 1200
--- NOTE | 2017-01-08 14:00 | NUR ---
DR WADDELL AT BEDSIDE.
--- NOTE | 2017-01-08 14:13 | NUR ---
REPORT TO RN ON 2NB.
--- NOTE | 2017-01-08 14:53 | NUR ---
TRANSPORT HELD UNTIL 1529.
[2017-01-08 16:00] VITALS: BP 110/48
--- NOTE | 2017-01-08 16:30 | Cons- Cardiology ---
General Information and HPI Consulting Request Date of Consult: 01/08/17 Requested By: SACHIN WADDELL M.D Reason for Consult: Worsening dyspnea; cardiomyopathy; COPD exacerbation Source of Information: patient, old records History of Present Illness: 61 year old male well known to me with history of non ischemic cardiomyopathy and multiple other medical issues as noted. Here now with persistent dyspnea, cough and sputum production with likely exacerbation of COPD / bronchitis. Multiple recent courses of antibiotics for LE cellulitis. No evidence of CHF at the present time. Allergies/Medications Allergies: Coded Allergies: NO KNOWN ALLERGIES (02/25/16) Home Med List: Albuterol Sulfate (Proair Hfa) 90 MCG HFA.AER.AD 2 PUF INH Q4-6 PRN PRN COPD (Reported) Atorvastatin Calcium (Lipitor) 20 MG TABLET 1 TAB PO 1700 HYPERLIPIDEMIA ( Reported) Carvedilol 12.5 MG TABLET 1 TAB PO BID HEART (Reported) Ferrous Sulfate (IRON) 325 MG (65 MG IRON) TABLET 1 TAB PO DAILY SUPPLEMENT ( Reported) Fluticasone/Salmeterol (Advair 500-50 Diskus) 500 MCG-50 MCG/DOSE BLST.W.DEV 1 PUF INH BID COPD (Reported) Furosemide (Lasix) 40 MG TABLET 1 TAB PO BID DIURETIC (Reported) Glimepiride 1 MG TABLET 1 TAB PO BID DM (Reported) Hydroxyzine HCl 50 MG TABLET 100 MG PO BID MUCUS (Reported) Lisinopril 20 MG TABLET 1 TAB PO DAILY BP (Reported) Metformin HCl (Glucophage) 1,000 MG TABLET 1 TAB PO BID DM (Reported) Montelukast Sodium (Singulair) 10 MG TABLET 1 TAB PO DAILY RESPIRATORY ( Reported) Naproxen Sodium 220 MG TABLET 4 TAB PO BID PRN PAIN (Reported) Oxycodone HCl/Acetaminophen (Percocet 10-325 MG Tablet) 10 MG-325 MG TABLET 1 TAB PO 4 TIMES/DAY PRN PAIN (Reported) Potassium Chloride (Klor-Con M20) 20 MEQ TAB.ER.PRT 1 TAB PO DAILY SUPPLEMENT (Reported) Umeclidinium [place] (Incruse Ellipta) 62.5 MCG/ACTUATION BLST.W.DEV 1 PUFF INH DAILY COPD (Reported) Current Medications: Current Medications Sig/[place] Start time Last Medication Dose Route Stop Time Status Admin Acetaminophen 650 MG Q6P PRN 01/08 1615 AC PO Albuterol Sulfate 0 .STK-MED ONE 01/08 0941 DC INH Albuterol Sulfate 3 ML ONCE ONE 01/08 0830 DC 01/08 INH 01/08 0831 0945 Atorvastatin Calcium 20 MG 1700 01/08 1700 AC PO Azithromycin 500 MG DAILY 01/09 1000 AC Dextrose/Water 250 ML IV Azithromycin 500 MG ONCE ONE 01/08 0945 DC 01/08 Dextrose/Water 250 ML IV 01/08 1044 1000 Budesonide/ 2 PUF BID 01/08 2200 AC Formoterol Fumarate INH Carvedilol 12.5 MG BID 01/08 1212 AC 01/08 PO 1300 Ferrous Sulfate 325 MG DAILY 01/09 1000 AC PO Furosemide 40 MG 7:30 AM, & 4:30 PM 01/08 1213 AC 01/08 PO 1300 Insulin Aspart 0 TIDAC 01/08 1700 AC 01/08 SC 1232 Ipratropium [place] 2.5 ML ONCE ONE 01/08 0830 DC 01/08 INH 01/08 0831 0945 Lisinopril 20 MG DAILY 01/08 1213 AC 01/08 PO 1300 Methylprednisolone 40 MG Q6 01/08 1219 AC IV Methylprednisolone 125 MG ONCE ONE 01/08 0830 DC 01/08 IV 01/08 0831 0850 Methylprednisolone 0 .STK-MED ONE 01/08 0828 DC .ROUTE Montelukast Sodium 10 MG DAILY 01/09 1000 AC PO Oxycodone/ 1 TAB Q6P PRN 01/08 1215 AC 01/08 Acetaminophen PO 1619 Oxycodone/ 0 .STK-MED ONE 01/08 0947 DC Acetaminophen PO Oxycodone/ 2 TAB ONCE ONE 01/08 0945 DC 01/08 Acetaminophen PO 01/08 0946 1000 Past History Travel History Traveled to [place] past 21 day No Medical History Neurological: NONE EENT: NONE Cardiovascular: cardiomyopathy, CHF, chronic venous insuff, hypertension, hyperlipidemia Respiratory: COPD, SLEEP APNEA Gastrointestinal: NONE Hepatic: NONE Renal: NONE Musculoskeletal: NONE Psychiatric: NONE Endocrine: diabetes Blood Disorders: NONE Cancer(s): NONE 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 Relation not specified for: *No pertinent family history Psychosocial History Where Do You Live? Other (homeless lives in his truck) Who Do You Live With? self Services at Home: Oxygen Primary Language: Finnish ETOH Use: denies use Illicit Drug Use: denies illicit drug use Functional Ability ADLs Independent: dressing, eating, toileting, bathing. Ambulation: independent IADLs Independent: shopping, housework, finances, food prep, telephone, transportation , medication admin. ECHO Results (as available) Date of last Echo 12/02/15 EF% 15 Exam & Diagnostic Data Vital Signs and I&O Vital Signs Date Time Temp Pulse Resp B/P Pulse O2 O2 Flow FiO2 Ox Delivery Rate 01/08 1317 98.2 72 22 137/69 99 Nasal 4.0L Cannula 01/08 1300 98.6 64 26 146/69 01/08 1300 98.6 64 26 146/69 01/08 1056 98.6 64 26 146/69 97 Nasal 4.0L Cannula 01/08 0944 97.8 77 24 133/77 98 Nasal 3.0L Cannula 01/08 0900 97 Nasal 3.0L Cannula 01/08 0806 99.6 88 22 133/73 90 Room Air Intake & Output 01/08 1600 01/08 0800 01/08 0000 01/07 1600 01/07 0800 01/07 0000 Intake Total Output Total Balance Patient 349 lb Weight Physical Exam: General Appearance Alert, Oriented X3, Cooperative, Moderate Distress Skin No Rashes HEENT Atraumatic, PERRLA, EOMI, Mucous Membr. moist/pink Neck Supple, No JVD Cardiovascular Normal S1, Normal S2, No Murmurs Lungs bilateral extensive audible wheeze Abdomen Normal Bowel Sounds, Soft, No Tenderness Neurological Normal Speech, Normal Tone, Sensation Intact Extremities Normal Pulses, b/l pedal edema Vascular Normal Pulses, Pulses Symmetrical Labs/Joaquim Results: Laboratory Tests 01/08 01/08 01/08 1430 1118 0820 Chemistry Sodium (137 - 145 mmol/L) 143 Potassium (3.5 - 5.1 mmol/L) 4.2 Chloride (98 - 107 mmol/L) 101 Carbon Dioxide (22 - 30 mmol/L) 32 H Anion Gap (5 - 16) 11 BUN (9 - 20 mg/dL) 18 Creatinine (0.7 - 1.2 mg/dL) 1.2 Estimated GFR (>60 ml/min) > 60 BUN/Creatinine Ratio (7 - 25 %) 15.0 Glucose (65 - 99 mg/dL) 123 H Lactic Acid (0.7 - 2.1 mmol/L) Cancelled 1.5 Calcium (8.4 - 10.2 mg/dL) 9.7 Total Bilirubin (0.2 - 1.3 mg/dL) 1.2 AST (17 - 59 U/L) 13 L ALT (21 - 72 U/L) 28 Alkaline Phosphatase (< 127 U/L) 92 Troponin I (<0.11 ng/ml) 0.02 0.03 Gdx-[id number]-Zjbhiutggnh Pept (<125 pg/mL) 6800 H Total Protein (6.3 - 8.2 g/dL) 7.4 Albumin (3.5 - 5.0 g/dL) 3.9 Globulin (1.9 - 4.2 gm/dL) 3.5 Albumin/Globulin Ratio (1.1 - 2.2 %) 1.1 Coagulation PT (9.4 - 12.5 SEC) 11.2 INR (0.90 - 1.17) 1.07 APTT (25 - 37 SEC) 27 Hematology CBC w Diff NO MAN DIFF REQ WBC (4.8 - 10.8 /CUMM) 14.8 H RBC (4.70 - 6.10 /CUMM) 4.15 L Hgb (14.0 - 18.0 G/DL) 10.7 L Hct (42 - 52 %) 33.5 L MCV (80.0 - 94.0 FL) 80.6 MCH (27.0 - 31.0 PG) 25.7 L RDW (11.5 - 14.5 %) 15.1 H Plt Count (130 - 400 /CUMM) 202 MPV (7.4 - 10.4 FL) 7.6 Gran % (42.2 - 75.2 %) 83.0 H Lymphocytes % (20.5 - 51.1 %) 7.8 L Monocytes % (1.7 - 9.3 %) 8.7 Eosinophils % (0 - 5 %) 0.2 Basophils % (0.0 - 2.0 %) 0.3 Absolute Granulocytes (1.4 - 6.5 /CUMM) 12.2 H Absolute Lymphocytes (1.2 - 3.4 /CUMM) 1.1 L Absolute Monocytes (0.10 - 0.60 /CUMM) 1.3 H Absolute Eosinophils (0.0 - 0.7 /CUMM) 0 Absolute Basophils (0.0 - 0.2 /CUMM) 0 PUBS MCHC (33.0 - 37.0 G/DL) 31.9 L Assessment/Plan Assessment/Plan Assessment: 1. Acute exacerbation of COPD / bronchitis with chronic respiratory failure 2. Non ischemic cardiomyopathy with history of chronic HFrEF 3. History of VT with AICD / BiV PPM 4. DM 5. HTN 6. HLd &. History of prior renal failure and HD Recommendations: - COntinue regular medication - Pulmonary treatment as outlined - No need to repeat echocardiogram - At discharge, the patient should be re enrolled in the [facility] Consult Acknowledgment - Thank you for your consult request.
--- NOTE | 2017-01-08 21:38 | Admission Certification ---
Admission Certification Certification Statement - As attending physician, I certify that at the time of - admission, based on clinical presentation, severity of - symptoms, need for further diagnostic testing and - therapeutic interventions, and risk of adverse outcomes - without in-hospital treatment, in my clinical assessment, - this patient requires an acute hospital stay for a minimum - of two nights or longer. I have also considered psychsocial - factors such as support system, advanced age, financial - issues, cognitive issues, and failed out-patient treatments, - past re-admission history, safety of patient, and lack of - compliance as applicable. Specific rationale supporting this admission is: Patient requires inpatient management of his COPD exacerbation. He will require intravenous steroid therapy.
[2017-01-08 23:00] VITALS: BP 143/73
[2017-01-09 06:46] VITALS: BP 119/72
--- NOTE | 2017-01-09 07:40 | PN- Housestaff ---
LYNNE HARPER,ALEXANDRA 01/09/17 0740: Subjective Follow-up For: Acute COPD exacerbation acute bronchitis Complaints: complains of subcostal pain with coughing Subjective: Patient is comfortably sitting in bed. He is on 3 L baseline supplemental O2. Denies any worsening shortness of breath, chest pain, palpitation, abdominal pain, nausea, vomiting. Review of Systems Constitutional: Denies: chills, fever, weakness. EENTM: Denies: visual changes. Cardiovascular: Reports: orthopena, peripheral edema. Denies: chest pain, palpitations. Respiratory: Reports: cough, short of breath. Gastrointestinal: Denies: abdominal pain, diarrhea, nausea. Genitourinary: Denies: dysuria (and in). Musculoskeletal: Reports: muscle pain. Skin: Denies: rash. Neurological/Psychological: Denies: anxiety, confusion. Objective Last 24 Hrs of Vital Signs/I&O Vital Signs Date Time Temp Pulse Resp B/P Pulse O2 O2 Flow FiO2 Ox Delivery Rate 01/09 0646 97.9 62 22 119/72 96 Nasal 3.0L Cannula 01/09 0000 97 Nasal 3.0L Cannula 01/08 2300 97.2 95 18 143/73 97 Nasal 3.0L Cannula 01/08 2206 95 143/73 01/08 1600 94 Nasal 3.0L Cannula 01/08 1600 98.0 76 18 110/48 96 Nasal 3.0L Cannula 01/08 1317 98.2 72 22 137/69 99 Nasal 4.0L Cannula 01/08 1300 98.6 64 26 146/69 01/08 1300 98.6 64 26 146/69 01/08 1056 98.6 64 26 146/69 97 Nasal 4.0L Cannula 01/08 0944 97.8 77 24 133/77 98 Nasal 3.0L Cannula 01/08 0900 97 Nasal 3.0L Cannula 01/08 0806 99.6 88 22 133/73 90 Room Air Intake & Output 01/09 1600 01/09 0800 01/09 0000 Intake Total 460 1050 Output Total 1150 1000 Balance -690 50 Intake, IV 10 10 Intake, Oral 450 1040 Output, Urine 1150 1000 Patient 345 lb Weight Physical Exam General Appearance: Alert, Oriented X3, Cooperative, Mild Distress Skin: No Rashes HEENT: Atraumatic, PERRLA, EOMI, Mucous Membr. moist/pink Neck: Supple, No JVD Cardiovascular: Regular Rate, Normal S1, Normal S2, No Murmurs Lungs: Normal Air Movement, bilateral expiratory wheeze improved compared to yesterday Abdomen: Normal Bowel Sounds, Soft, No Tenderness, abdominal obesity present Neurological: Normal Speech, Normal Tone, Sensation Intact Extremities: No Cyanosis, Normal Pulses, bilateral 1+ pitting pedal edema Vascular: Normal Pulses, Pulses Symmetrical Current Medications: Current Medications Sig/Keaton Start time Last Medication Dose Route Stop Time Status Admin Acetaminophen 650 MG Q6P PRN 01/08 1615 AC PO Albuterol Sulfate 0 .STK-MED ONE 01/08 0941 DC INH Albuterol Sulfate 3 ML ONCE ONE 01/08 0830 DC 01/08 INH 01/08 0831 0945 Atorvastatin Calcium 20 MG 1700 01/08 1700 AC 01/08 PO 1752 Azithromycin 500 MG DAILY 01/09 1000 AC Dextrose/Water 250 ML IV Azithromycin 500 MG ONCE ONE 01/08 0945 DC 01/08 Dextrose/Water 250 ML IV 01/08 1044 1000 Budesonide/ 2 PUF BID 01/08 2200 AC 01/08 Formoterol Fumarate INH 2159 Carvedilol 12.5 MG BID 01/08 1212 AC 01/08 PO 2206 Ferrous Sulfate 325 MG DAILY 01/09 1000 AC PO Furosemide 40 MG 7:30 AM, & 4:30 PM 01/08 1213 AC 01/09 PO 0646 Insulin Aspart 0 TIDAC 01/08 1700 AC 01/08 SC 1820 Ipratropium Hardy 2.5 ML ONCE ONE 01/08 0830 DC 01/08 INH 01/08 0831 0945 Lisinopril 20 MG DAILY 01/08 1213 AC 01/08 PO 1300 Methylprednisolone 40 MG Q6 01/08 1219 AC 01/09 IV 0533 Methylprednisolone 125 MG ONCE ONE 01/08 0830 DC 01/08 IV 01/08 0831 0850 Methylprednisolone 0 .STK-MED ONE 01/08 0828 DC .ROUTE Montelukast Sodium 10 MG DAILY 01/09 1000 AC PO Oxycodone/ 1 TAB Q6P PRN 01/08 1215 AC 01/09 Acetaminophen PO 0246 Oxycodone/ 0 .STK-MED ONE 01/08 0947 DC Acetaminophen PO Oxycodone/ 2 TAB ONCE ONE 01/08 0945 DC 01/08 Acetaminophen PO 01/08 0946 1000 Last 24 Hrs of Lab/Joaquim Results Last 24 Hrs of Labs/Mics: Laboratory Tests 01/08/17 1430: Troponin I 0.02 01/08/17 1118: Lactic Acid Cancelled 01/08/17 0820: Anion Gap 11, Estimated GFR > 60, BUN/Creatinine Ratio 15.0, Glucose 123 H, Lactic Acid 1.5, Calcium 9.7, Total Bilirubin 1.2, AST 13 L, ALT 28, Alkaline Phosphatase 92, Troponin I 0.03, [id number] Pept 6800 H, Total Protein 7.4, Albumin 3.9, Globulin 3.5, Albumin/Globulin Ratio 1.1, PT 11.2, INR 1.07, APTT 27, CBC w Diff NO MAN DIFF REQ, RBC 4.15 L, MCV 80.6, MCH 25.7 L, RDW 15.1 H, MPV 7.6, Gran % 83.0 H, Lymphocytes % 7.8 L, Monocytes % 8.7, Eosinophils % 0.2, Basophils % 0.3, Absolute Granulocytes 12.2 H, Absolute Lymphocytes 1.1 L, Absolute Monocytes 1.3 H, Absolute Eosinophils 0, Absolute Basophils 0, PUBS MCHC 31.9 L Microbiology 01/09 0720 LOWER RESP: Respiratory Culture - RECD 01/09 07 LOWER RESP: Gram Stain - RECD 01/08 1729 URINE ROUT: Legionella Antigen - COMP 01/08 172 URINE ROUT: Streptococcus pneumoniae Antigen (M - COMP 01/08 0857 BLOOD: Blood Culture - RECD 01/08 0840 NASOPHARYN: Influenza Virus A & B Rapid Smear - COMP 01/08 0820 BLOOD: Blood Culture - WKST Pending Orders Fingersticks (last 24 hrs): 229/265/278/241 Assessment/Plan Assessment: This is 61 year old morbidly obese man with past medical history of COPD on 3 L home O2 or not on prednisone, nonischemic cardiomyopathy with EF of 15-20% status post biV-PPM and defibrillator in August 2016, type 2 diabetes, hyperlipidemia, history of GI bleed and LISETTE requiring dialysis came from home with chief complaint of progressively worsening shortness of breath associated with productive cough and subjective fever and chills. On exam patient noted having significant wheezing. Labs are consistent with leukocytosis. 1. Acute COPD exacerbation with acute on chronic respiratory failure (on admission O2 sat was 88-89% with tachypnea and use of accessory muscle ) - Chest x-ray did not reveal any evidence of infiltrate, noted leukocytosis and experatory wheezing on exam improved compared to yesterday - Continue IV Solu-Medrol - TRC treatment and Symbicort - O2 requirement back to baseline of 3 L - Follow-up sputum culture, and urinary and strep and Legionella antigen negative - Follow-up blood culture 2. Nonischemic cardiomyopathy status post biV-PPM and defibrillator placement with HFrEF with EF 15-20%, HX OF vTAC he andH - well compensated - Continue beta angel, Lasix and BON inhibitor - Strict LEYDA's and daily weight 3. Hypertension - Continue home dose lisinopril 20 mg daily 4. Hyperlipidemia Continue statin 5. Type 2 diabetes Noted elevated blood sugar level between 242-60 Adjusted NovoLog sliding scale Diabetic diet Accu-Cheks 3 times a day before meals and at night 6. DVT prophylaxis Mechanical due to hemoptysis 7. Full code Problem List: 1. COPD with acute exacerbation 2. Hypertension 3. Cardiomyopathy 4. Systolic HF (heart failure) 5. Hyperlipidemia 6. Type 2 diabetes mellitus Pain Ratin Pain Location: Subcostal rib cage Pain Goal: Pain 4 or less Pain Plan: Tylenol and Percocet Tomorrow's Labs & Rationales: CBC BEP DVT/Prophylaxis: mechanical Consulting Request: Consulting Specialty: Pulmonary Disease Consulting Physician: Dr. Puente Reason for Consult: copd exacerbation PRISCILA HARPER,GEORGETTE 01/09/17 1711: Attending MD Review Statement Attending Statement Attending MD Statement: examined this patient, discuss w/resident/PA/SENIOR MARKET RESEARCH ANALYST, agreed w/resident/PA/SENIOR MARKET RESEARCH ANALYST, reviewed EMR data (avail) Attending Assessment/Plan: Patient seen and examined. Plan of care discussed with the medical team and the patient. Available lab work and radiology test reports were reviewed. Patient continues to complain of for bouts of coughing with sputum production. He denies any fever chills nausea vomiting or chest pains. He has been able to ambulate to bathroom. Patient reports hemoptysis with fresh blood. Vital Signs Date Time Temp Pulse Resp B/P Pulse O2 O2 Flow FiO2 Ox Delivery Rate 01/09 1442 97.1 68 20 110/66 92 Nasal 3.0L Cannula 01/09 1046 64 118/70 01/09 1046 64 118/70 01/09 0800 94 Nasal 3.0L Cannula 01/09 0646 97.9 62 22 119/72 96 Nasal 3.0L Cannula 01/09 0000 97 Nasal 3.0L Cannula 01/08 2300 97.2 95 18 143/73 97 Nasal 3.0L Cannula 01/08 2206 95 143/73 Intake & Output 01/09 1600 01/09 0800 01/09 0000 Intake Total 460 1050 Output Total 1150 1000 Balance -690 50 Intake, IV 10 10 Intake, Oral 450 1040 Output, Urine 1150 1000 Patient 377 lb 345 lb Weight Exam: General: Patient obese awake alert oriented without any distress; was noted to have frequent bouts of coughing CVS: S1 plus S2 without any murmur or gallops Chest: Few scattered crepitation without any wheeze. There is no respiratory distress. Abdomen: Soft nontender, bowel sound present, no guarding or rebound METER/RELAY CRAFTSMAN: Awake alert oriented without any focal neuro deficit and follows command appropriately Extremities: No edema; no clubbing or cyanosis noted; chronic lower extremity discoloration likely due to venous stasis. Labs were reviewed; chest x-ray finding reviewed. Assessment * Acute respiratory failure * History of COPD with possible COPD exacerbation * Nonischemic myopathy * Status post wide medical pacemaker and defibrillator with the of 20% * History of ventricular tachycardia * History of hypertension * Hyperlipidemia * Morbid obesity * Hemoptysis Plan * I'm unclear whether patient has underlying COPD given that he has never smoked. * Pulmonary consult for evaluation of hemoptysis and questionable COPD * Continue current medication for now * Cardiology consult note reviewed * Continue Lasix * Monitor daily weights
[2017-01-09 08:38] LABS: ABSOLUTE BASOPHIL COUNT 0 /CUMM (0.0-0.2); ABSOLUTE EOSINOPHIL COUNT 0 /CUMM (0.0-0.7); ABSOLUTE GRANULOCYTE CT 11.8 /CUMM (1.4-6.5); ABSOLUTE LYMPH COUNT 1.2 /CUMM (1.2-3.4); ABSOLUTE MONOCYTE COUNT 0.5 /CUMM (0.10-0.60); BASOPHIL % 0.2 % (0.0-2.0); EOSINOPHIL % 0.2 % (0-5); GRANULOCYTE % 87.3 % (42.2-75.2); HEMATOCRIT 32.2 % (42-52); MEAN CORPUSCULAR HGB 25.5 PG (27.0-31.0); MEAN CORPUSCULAR HGB CONC 31.8 G/DL (33.0-37.0); MEAN CORPUSCULAR VOLUME 80.4 FL (80.0-94.0); MEAN PLATELET VOLUME 7.4 FL (7.4-10.4); PLATELET COUNT 187 /CUMM (130-400); RBC DISTRIBUTION WIDTH 15.2 % (11.5-14.5); RED BLOOD CELL CT 4.01 /CUMM (4.70-6.10)
--- NOTE | 2017-01-09 08:42 | Patient Discharge Instructions ---
Discharge Instructions General Discharge Information You were seen/treated for: Acute COPD exacerbation Pseudomonas pneumonia Watch for these problems: Worsening shortness of breath, wheezing, weight gain, leg swelling, chest pain. Special Instructions: Please follow-up with primary care physician within a week of discharge. Please follow-up with telephone order dispatcher Dr. Puente within a week of discharge. Please follow-up with clerical associate Dr. George within a week of discharge. Please follow-up with low pressure boiler operator within a week of discharge for further workup of anemia and occult GI bleed. Please follow-up with CHF clinic. fOLLOW THIS PREDNISONE TAPER: 01/14-01/15 60 MG 01/16-01/17 50 MG 01/18-01/19 40 MG 01/20-01/21 30 MG 01/22-01/23 20 MG 01/24- 01/25 10 MG THEN STOP. Diet Recommended Diet: Diabetic Activity Additional ACTIVITY Info: As tolerated Acute Coronary Syndrome Inclusion Criteria At DC or during hospital stay patient has or had the following: ACS DIAGNOSIS No Discharge Core Measures Meds if any: Prescribed or Continued at Discharge Meds if any: NOT Prescribed or Continued at Discharge Congestive Heart Failure Inclusion Criteria At DC or during hospital stay patient has or had the following: CHF DIAGNOSIS Yes Discharge Core Measures Meds if any: Prescribed or Continued at Discharge BON/ARB for EF <40% Yes Meds if any: NOT Prescribed or Continued at Discharge Cerebrovascular accident Inclusion Criteria At DC or during hospital stay patient has or had the following: CVA/TIA Diagnosis No Discharge Core Measures Meds if any: Prescribed or Continued at Discharge Meds if any: NOT Prescribed or Continued at Discharge Venous thromboembolism Inclusion Criteria VTE Diagnosis No VTE Type NONE VTE Confirmed by (Test) NONE Discharge Core Measures - Per Current guidelines, there needs to be overlap - treatment for the first 5 days of Warfarin therapy. - If discharged on Warfarin prior to 5 days of - overlap therapy, the patient will need to be - assessed for post discharge needs including - *Post discharge parental anticoagulation - *Warfarin and/or parental anticoagulation education - *Follow up date to check INR post discharge At least 5 days overlap therapy as Inpatient No Meds if any: Prescribed or Continued at Discharge Note: Overlap Therapy is Warfarin and Anticoagulant Meds if any: NOT Prescribed or Continued at Discharge
--- NOTE | 2017-01-09 09:26 | Discharge Summary ---
Visit Information Visit Dates Admission Date: 01/08/17 Discharge Date: 01/14/17 Hospital Course Course Attending Physician: SACHIN WADDELL M.D Primary Care Physician: UNKNOWN Consulting Request: Consulting Specialty: Pulmonary Disease Consulting Physician: Dr. Puente Reason for Consult: copd exacerbation Hospital Course: This is 61 year old morbidly obese man with past medical history of COPD on 3 L home O2 or not on prednisone, nonischemic cardiomyopathy with EF of 15-20% status post biV-PPM and defibrillator in August 2016, type 2 diabetes, hyperlipidemia, history of GI bleed and LISETTE requiring dialysis who is homeless and lives in his truck with his dog came with chief complaint of progressively worsening shortness of breath associated with productive cough/hemoptysis and subjective fever and chills. On exam patient noted having significant wheezing. Labs are consistent with leukocytosis. CXR noted unremarkable for pneumonia or CHF. Patient admitted to and following problems were address during course of hospital stay. 1. Acute COPD exacerbation with acute on chronic respiratory failure On admission patient had significant shortness of breath with O2 sat noted around 88-89% using accessory muscle and tachypnea. Patient also complained of productive cough with small hemoptysis. His chest x-ray did not reveal any signs of infiltration or pulmonary edema. He was started on Solu-Medrol which was gradually tapered and changed to oral prednisone. He was also treated with azithromycin for bronchitis. Later Due to his persistent productive cough with mild hemoptysis CT scan of chest was done which revealed left lower lobe infiltrate and his sputum culture grew Pseudomonas sensitive to ciprofloxacin. Patient started on oral ciprofloxacin 500 mg twice a day to complete total of 7- 10 days course of antibiotic. He received [facility] treatment and maintain on Symbicort inhaler and recommended to restart his Advair and Elipta On discharge. His symptoms significantly improved with his supplemental O2 requirement went down to his baseline 3 L. Patient discharged on oral prednisone taper with the recommendation to follow-up with his electrical designer drafter Dr. Puente within a week of discharge. 2. History of nonischemic cardiomyopathy with HFrEF with EF of 15-60% status post BiV-PPM and defibrillator Patient was compensating well with his systolic heart failure and was maintained on his home dose Lasix 40 mg twice daily. His pipe fitter street service Dr. August evaluated the patient and recommended to continue his home regimen including beta angel and BON inhibitor. Strict I&O's maintained and he kept on net negative fluid balance. Patient is to follow-up with CHF clinic as outpatient and follow-up with pipe fitter street service Dr. George within a week of discharge. 3. Hyperlipidemia Patient continued on his home dose statin. 4. Hypertension Remained stable on beta angel and lisinopril 5. Type 2 diabetes Patient's oral hypoglycemic agents were held on admission and started on NovoLog sliding scale. On discharge patient restarted on his home dose oral hypoglycemic medication. 6. Anemia Patient noted persistent anemia and started on iron supplement. He complains of occasional blood in the stool. Records from his previous manufacturing industrial engineer regarding colonoscopy and EGD were obtained which was done a year ago and noted to have deep ulceration in gastic area and shallow ulceration in deodenum not prone for bleeding. His colonoscopy noted having internal hemmoroids but didn't have any polyps and was recommended to [facility] for screening Coplonoscopy in 10 years. He was recommended to get EGD in 3 moths at that time which patient was not able to get yet. Patient needs to follow-up with his manufacturing industrial engineer for further workup of GI bleed including repeat colonoscopy or EGD as outpatient. His H&H remained stable during course of hospital stay. Will continue his PPI. 6. DVT prophylaxis Patient received mechanical DVT prophylaxis due to concern of bleeding ( hemoptysis and blood in the stool). Allergies: Coded Allergies: NO KNOWN ALLERGIES (02/25/16) Pertinent Lab Results: 01/12/17 0634: CBC w Diff NO MAN DIFF REQ, RBC 4.36 L, MCV 79.7 L, MCH 25.4 L, RDW 15.2 H, MPV 7.5, Gran % 79.3 H, Lymphocytes % 14.8 L, Monocytes % 5.7, Eosinophils % 0 , Basophils % 0.2, Absolute Granulocytes 8.7 H, Absolute Lymphocytes 1.6, Absolute Monocytes 0.6, Absolute Eosinophils 0, Absolute Basophils 0, PUBS MCHC 31.9 L Disposition Summary Disposition Principal Diagnosis: 1. Acute on chronic respiratory failure secondary to COPD exacerbation 2. Pseudomonas left lower lobe pneumonia 3. Microcytic anemia Additional Diagnosis: 1. Non-ischemic cardiomyopathy status post by IV every afternoon and defibrillator 2. Hypertension 3. Type 2 diabetes 4. Hyperlipidemia Discharge Disposition: home or self care Discharge Instructions General Discharge Information Code Status: Full Code Patient's Diet: Diabetic diet Patient's Activity: As tolerated Follow-Up Instructions/Appts: Please follow-up with primary care physician within a week of discharge. Please follow-up with electrical designer drafter Dr. Puente within a week of discharge. Please follow-up with pipe fitter street service Dr. George within a week of discharge. Please follow-up with manufacturing industrial engineer within a week of discharge for further workup of anemia and occult GI bleed. Please follow-up with CHF clinic. fOLLOW THIS PREDNISONE TAPER: 01/14-01/15 60 MG 01/16-01/17 50 MG 01/18-01/19 40 MG 01/20-01/21 30 MG 01/22-01/23 20 MG 01/24- 01/25 10 MG THEN STOP. Medications at Discharge Discharge Medications: Stop taking the following medications: Hydroxyzine HCl (Hydroxyzine HCl) 50 MG TABLET ORAL TWICE DAILY Naproxen Sodium (Naproxen Sodium) 220 MG TABLET ORAL TWICE DAILY as needed for PAIN Continue taking these medications: Fluticasone/Salmeterol (Advair 500-50 Diskus) 500 MCG-50 MCG/DOSE BLST.W.DEV 1 Puff Inhale through mouth TWICE DAILY Qty = 60 Comments: NOT GIVEN IN HOSPITAL Umeclidinium [place] (Incruse Ellipta) 62.5 MCG/ACTUATION BLST.W.DEV 1 PUFF Inhale through mouth DAILY Qty = 90 Comments: NOT GIVEN IN HOSPITAL Carvedilol (Carvedilol) 12.5 MG TABLET 1 Tablet ORAL TWICE DAILY Comments: Last Taken: 01/14/17 Time: 9 AM Albuterol Sulfate (Proair Hfa) 90 MCG HFA.AER.AD 2 Puff Inhale through mouth EVERY 4-6 HOURS NEEDED as needed for COPD Comments: Last Taken: 01/14/17 Time: 8 AM Glimepiride (Glimepiride) 1 MG TABLET 1 Tablet ORAL TWICE DAILY Comments: NOT GIVEN IN HOSPITAL Montelukast Sodium (Singulair) 10 MG TABLET 1 Tablet ORAL DAILY Comments: Last Taken: 01/14/17 Time: 9 AM Atorvastatin Calcium (Lipitor) 20 MG TABLET 1 Tablet ORAL 5 PM Comments: Last Taken: 01/13/17 Time: 5 PM Lisinopril (Lisinopril) 20 MG TABLET 1 Tablet ORAL DAILY Comments: Last Taken: 3/22/17 Time: 10 AM Metformin HCl (Glucophage) 1,000 MG TABLET 1 Tablet ORAL TWICE DAILY Comments: NOT GIVEN IN HOSPITAL Furosemide (Lasix) 40 MG TABLET 1 Tablet ORAL TWICE DAILY Comments: Last Taken: 01/14/17 Time: 7 AM Ferrous Sulfate (IRON) 325 MG (65 MG IRON) TABLET 1 Tablet ORAL DAILY Comments: Last Taken: 01/14/17 Time: 9 AM Potassium Chloride (Klor-Con M20) 20 MEQ TAB.ER.PRT 1 Tablet ORAL DAILY Comments: Last Taken: NOT GIVEN AT HOSPITAL Time: Oxycodone HCl/Acetaminophen (Percocet 10-325 MG Tablet) 10 MG-325 MG TABLET 1 Tablet ORAL 4 TIMES A DAY as needed for PAIN Comments: Last Taken: 01/14/17 Time: 10 AM Start taking the following new medications: Omeprazole (Omeprazole) 20 MG CAPSULE.DR 40 Milligram ORAL DAILY BEFORE BREAKFAST Qty = 30 No Refills Prednisone (Prednisone) 10 MG TABLET 1 Tablet ORAL DAILY Qty = 42 No Refills Instructions: start taking 60 mg and taper dose 10 mg every other day until complete taper. Comments: Last Taken: 60 MG GIVEN 01/14/17 Time: 10 AM Ciprofloxacin HCl (Cipro) 500 MG TABLET 1 Tablet ORAL TWICE DAILY Qty = 9 No Refills Instructions: take 1 tab twice a day to complete course on 01/17/17 in evening as last dose. Comments: Last Taken: 01/14/17 Time: 10 AM Copies To: KERRI HARPER,Julia RICHARDS MD Attending MD Review Statement Documenting Attending: SACHIN WADDELL M.D Other Findings: I have reviewed the discharge summary
[2017-01-09 09:41] LABS: WHITE BLOOD CELL COUNT 13.6 /CUMM (4.8-10.8)
[2017-01-09 14:42] VITALS: BP 110/66
--- NOTE | 2017-01-09 18:42 | PN- Cardiology ---
Subjective Subjective: Breathing stable but the patient is concerned that he appears to be coughing up more blood depite antibiotic therapy. No other issues noted. Objective Vital Signs and I&Os Vital Signs Date Time Temp Pulse Resp B/P Pulse O2 O2 Flow FiO2 Ox Delivery Rate 01/09 1600 Nasal 3.0L Cannula 01/09 1442 97.1 68 20 110/66 92 Nasal 3.0L Cannula 01/09 1046 64 118/70 01/09 1046 64 118/70 01/09 0800 94 Nasal 3.0L Cannula 01/09 0646 97.9 62 22 119/72 96 Nasal 3.0L Cannula 01/09 0000 97 Nasal 3.0L Cannula 01/08 2300 97.2 95 18 143/73 97 Nasal 3.0L Cannula 01/08 2206 95 143/73 Intake & Output 01/09 1600 01/09 0800 01/09 0000 01/08 1600 01/08 0800 01/08 0000 Intake Total 460 1050 Output Total 1150 1000 Balance -690 50 Intake, IV 10 10 Intake, Oral 450 1040 Output, Urine 1150 1000 Patient 377 lb 345 lb Weight Current Medications: Current Medications Sig/Keaton Start time Last Medication Dose Route Stop Time Status Admin Acetaminophen 650 MG Q6P PRN 01/08 1615 AC PO Atorvastatin Calcium 20 MG 1700 01/08 1700 AC 01/09 PO 1641 Azithromycin 500 MG DAILY 01/09 1000 AC 01/09 Dextrose/Water 250 ML IV 1046 Budesonide/ 2 PUF BID 01/08 2200 AC 01/09 Formoterol Fumarate INH 1047 Carvedilol 12.5 MG BID 01/08 1212 AC 01/09 PO 1046 Ferrous Sulfate 325 MG DAILY 01/09 1000 AC 01/09 PO 1046 Furosemide 40 MG 7:30 AM, & 4:30 PM 01/08 1213 AC 01/09 PO 1641 Insulin Aspart 0 TIDAC 01/08 1700 AC 01/09 SC 1641 Lisinopril 20 MG DAILY 01/08 1213 AC 01/09 PO 1046 Methylprednisolone 40 MG Q6 01/08 1219 AC 01/09 IV 1842 Montelukast Sodium 10 MG DAILY 01/09 1000 AC 01/09 PO 1047 Oxycodone/ 1 TAB Q6P PRN 01/08 1215 AC 01/09 Acetaminophen PO 1641 Patient Medication 1 ED .STK-MED ONE 01/09 1400 [facility] ED 01/09 1401 Results Last 48 Hrs of Labs/Mics: Laboratory Tests 01/09/17 0750: Anion Gap 11, Estimated GFR > 60, BUN/Creatinine Ratio 20.0, CBC w Diff NO MAN DIFF REQ, RBC 4.01 L, MCV 80.4, MCH 25.5 L, RDW 15.2 H, MPV 7.4, Gran % 87.3 H, Lymphocytes % 8.8 L, Monocytes % 3.5, Eosinophils % 0.2, Basophils % 0.2, Absolute Granulocytes 11.8 H, Absolute Lymphocytes 1.2, Absolute Monocytes 0.5, Absolute Eosinophils 0, Absolute Basophils 0, PUBS MCHC 31.8 L 01/08/17 1430: Troponin I 0.02 01/08/17 1118: Lactic Acid Cancelled 01/08/17 0820: Anion Gap 11, Estimated GFR > 60, BUN/Creatinine Ratio 15.0, Glucose 123 H, Lactic Acid 1.5, Calcium 9.7, Total Bilirubin 1.2, AST 13 L, ALT 28, Alkaline Phosphatase 92, Troponin I 0.03, [id number] Pept 6800 H, Total Protein 7.4, Albumin 3.9, Globulin 3.5, Albumin/Globulin Ratio 1.1, PT 11.2, INR 1.07, APTT 27, CBC w Diff NO MAN DIFF REQ, RBC 4.15 L, MCV 80.6, MCH 25.7 L, RDW 15.1 H, MPV 7.6, Gran % 83.0 H, Lymphocytes % 7.8 L, Monocytes % 8.7, Eosinophils % 0.2, Basophils % 0.3, Absolute Granulocytes 12.2 H, Absolute Lymphocytes 1.1 L, Absolute Monocytes 1.3 H, Absolute Eosinophils 0, Absolute Basophils 0, PUBS MCHC 31.9 L Microbiology 01/08 172 URINE ROUT: Legionella Antigen - COMP 01/08 172 URINE ROUT: Streptococcus pneumoniae Antigen (M - COMP 01/08 0840 NASOPHARYN: Influenza Virus A & B Rapid Smear - COMP Assessment/Plan Assessment/Plan Assessment: 1. Acute exacerbation of COPD / bronchitis with chronic respiratory failure and reported worsening hemoptysis 2. Non ischemic cardiomyopathy with history of chronic HFrEF 3. History of VT with AICD / BiV PPM 4. DM 5. HTN 6. HLd &. History of prior renal failure and HD Recommendations: - Continue current antibiotic therapy. - Monitor hemoptysis closely - Although the hemoptysis is likley related to the bronchitis and coughing, consider non contrast CT scan if the hemoptysis worsens or persists. - COntinue current cardiac meds. Continue telemetry? No
[2017-01-09 23:17] VITALS: BP 131/76
[2017-01-10 07:28] VITALS: BP 140/88
--- NOTE | 2017-01-10 11:33 | PN- Att Addend ---
Attending Addendum Attending Brief Note Attending MD Statement: examined this patient, discuss w/resident/PA/MECHANICAL SYSTEMS CONTROL ENGINEER, agreed w/resident/PA/MECHANICAL SYSTEMS CONTROL ENGINEER, reviewed EMR data (avail) Attending Assessment/Plan: Patient seen and examined. Plan of care discussed with the medical team and the patient. Available lab work and radiology test reports were reviewed. Patient continues to complain of for bouts of coughing with sputum production. He denies any fever chills nausea vomiting or chest pains. He has been able to ambulate to bathroom. Patient reports hemoptysis with fresh blood. It appears that he is having breakthrough pains and wants to increase his pain medicine frequency to every 4. Vital Signs Date Time Temp Pulse Resp B/P Pulse O2 O2 Flow FiO2 Ox Delivery Rate 01/10 0800 Nasal 3.0L Cannula 01/10 0752 70 140/88 01/10 0752 70 140/88 01/10 0728 97.7 70 20 140/88 94 Nasal 2.0L Cannula 01/10 0002 62 131/76 01/10 0000 98 Nasal 3.0L Cannula 01/09 2317 98.7 62 20 131/76 98 Nasal 3.0L Cannula 01/09 1600 Nasal 3.0L Cannula 01/09 1442 97.1 68 20 110/66 92 Nasal 3.0L Cannula Intake & Output 01/10 1600 01/10 0800 01/10 0000 Intake Total 320 630 Output Total 800 1350 Balance -480 -720 Intake, Oral 320 630 Output, Urine 800 1350 Patient 378 lb Weight Exam: General: Patient obese awake alert oriented without any distress; was noted to have frequent bouts of coughing CVS: S1 plus S2 without any murmur or gallops Chest: Few scattered crepitation without any wheeze. There is no respiratory distress. Abdomen: Soft nontender, bowel sound present, no guarding or rebound CONTOUR SANDER: Awake alert oriented without any focal neuro deficit and follows command appropriately Extremities: No edema; no clubbing or cyanosis noted; chronic lower extremity discoloration likely due to venous stasis. Sputum cultures is growing gram-negative rods and yeast. chest x-ray finding from January 08 reviewed. Assessment * Acute respiratory failure * History of COPD with possible COPD exacerbation * Nonischemic myopathy * Status post wide medical pacemaker and defibrillator with the of 20% * History of ventricular tachycardia * History of hypertension * Hyperlipidemia * Morbid obesity * Hemoptysis Plan * I'm unclear whether patient has underlying COPD given that he has never smoked. * Pulmonary consult for evaluation of hemoptysis and questionable COPD * Obtain CT chest with IV contrast the workup hemoptysis rule out pneumonia or malignancy * Continue current medication for now * Cardiology consult note reviewed * Continue Lasix * Monitor daily weights * Pain medicine Percocet was adjusted to every 4 when necessary
[2017-01-10 14:54] VITALS: BP 136/80
--- NOTE | 2017-01-10 16:25 | NUR ---
PT TO CT SCAN
--- NOTE | 2017-01-10 16:58 | NUR ---
BACK FROM CT NOW 1657 ASK DIETARY TO MOVE UP HIS DINNER ORDER FROM 6:45 PM
--- NOTE | 2017-01-10 18:08 | CT SCAN REPORT ---
EXAMINATION: CT CHEST WITH CONTRAST CLINICAL INFORMATION: Hemoptysis, shortness of breath. COMPARISON: 01/09/2016. TECHNIQUE: Contiguous axial thin section helical images of the chest were performed following the administration of 95 mL of intravenous Optiray 320. The data set was reformatted in the coronal and sagittal planes and reviewed on an independent workstation. DLP: 866 mGy-cm. FINDINGS: The heart is enlarged, but unchanged from prior exam. Pacer leads terminate within the right atrium and right ventricle. There is no pericardial effusion. There is neither mediastinal, hilar nor axillary lymphadenopathy. There are no chest wall masses. Review of lung windows demonstrates that there are neither pleural effusions nor pneumothoraces. There is a small focus of airspace disease within the posterior basal segment of the left lower lobe. There is nonspecific bilateral lower lobe groundglass opacification. There is a small focus of atelectasis or scarring within the inferior right upper lobe. Within the right upper lobe on image 136/537, there is a 3 mm noncalcified pulmonary nodule. Within the superior segment of the right lower lobe on image 191, there is a benign 2 mm calcified pulmonary nodule. The visualized upper abdomen demonstrates that the liver is of normal size and attenuation without focal lesions. Normal adrenal glands are identified. Bone windows: Neither sclerotic nor lytic bone lesions are identified. IMPRESSION: Small focus of airspace disease within the posterior basal segment of the left lower lobe. This is nonspecific, but could correspond to a developing infiltrate. Recommendation is for a followup chest series to be obtained following treatment and/or resolution of symptoms to assure resolution of this appearance. Cardiomegaly.
[2017-01-10 22:00] VITALS: BP 144/82
[2017-01-11 06:22] VITALS: BP 137/94
--- NOTE | 2017-01-11 08:28 | PN- Housestaff ---
Subjective Follow-up For: Acute COPD exacerbation Acute bronchitis Subjective: patient was seen and examined this morning. He continues to complain of productive cough with yellow sputum with tingled blood. He denied fever, chill. vitals are stable. Review of Systems Constitutional: Reports: see HPI. Objective Last 24 Hrs of Vital Signs/I&O Vital Signs Date Time Temp Pulse Resp B/P Pulse O2 O2 Flow FiO2 Ox Delivery Rate 01/11 1018 74 137/94 01/11 1018 74 37/94 01/11 0800 94 Nasal 3.0L Cannula 01/11 0622 97.8 74 22 137/94 94 Nasal 3.0L Cannula 01/11 0000 96 Nasal 3.0L Cannula 01/10 2232 97.8 71 20 96 Nasal Cannula 01/10 2200 144/82 01/10 2129 71 144/82 01/10 1600 97 Nasal 3.0L Cannula 01/10 1454 98.3 60 20 136/80 97 Nasal 3.0L Cannula Intake & Output 01/11 1600 01/11 0800 01/11 0000 Intake Total 240 960 Output Total 1500 1150 Balance -1260 -190 Intake, Oral 240 960 Output, Urine 1500 1150 Patient 170.097 kg Weight Physical Exam General Appearance: Alert, Oriented X3, Cooperative, No Acute Distress Skin: No Rashes, No Breakdown HEENT: Atraumatic, PERRLA, EOMI, Mucous Membr. moist/pink Cardiovascular: Regular Rate, Normal S1, Normal S2, No Murmurs Lungs: Decrease air entery, diffuse ronchi and wheeze. Abdomen: Normal Bowel Sounds, Soft, No Tenderness Neurological: Normal Gait, Normal Speech, Strength at 5/5 X4 Ext, Normal Tone, Sensation Intact, Cranial Nerves 3-12 NL, Reflexes 2+ Extremities: No Clubbing, No Cyanosis, Normal Pulses, Bilateral trace edema Assessment/Plan Assessment: This is 61 year old morbidly obese man with past medical history of COPD on 3 L home O2 or not on prednisone, nonischemic cardiomyopathy with EF of 15-20% status post biV-PPM and defibrillator in August 2016, type 2 diabetes, hyperlipidemia, history of GI bleed and LISETTE requiring dialysis came from home with chief complaint of progressively worsening shortness of breath associated with productive cough and subjective fever and chills. On exam patient noted having significant wheezing. Labs are consistent with leukocytosis. 1. Acute COPD exacerbation with acute on chronic respiratory failure (on admission O2 sat was 88-89% with tachypnea and use of accessory muscle ) - Chest x-ray did not reveal any evidence of infiltrate, noted leukocytosis and experatory wheezing on exam improved compared to yesterday - Continue IV Solu-Medrol every 12 - Start Ciprofloxacin 500 mg twice a day - TRC treatment and Symbicort - O2 requirement back to baseline of 3 L - Follow-up sputum culture, and urinary and strep and Legionella antigen negative - Follow-up blood culture 2. Nonischemic cardiomyopathy status post biV-PPM and defibrillator placement with HFrEF with EF 15-20%, HX OF vTAC he andH - well compensated - Continue beta angel, Lasix and BON inhibitor - Strict LEYDA's and daily weight 3. Hypertension - Continue home dose lisinopril 20 mg daily 4. Hyperlipidemia Continue statin 5. Type 2 diabetes Noted elevated blood sugar level between 242-60 Adjusted NovoLog sliding scale Diabetic diet Accu-Cheks 3 times a day before meals and at night 6. DVT prophylaxis Mechanical due to hemoptysis 7. Full code Problem List: 1. COPD with acute exacerbation Pain Ratin Pain Location: None Pain Goal: Pain 4 or less Pain Plan: None Tomorrow's Labs & Rationales: [facility] Consulting Request: Consulting Specialty: Pulmonary Disease Consulting Physician: Dr. Puente Reason for Consult: copd exacerbation
--- NOTE | 2017-01-11 09:33 | Cons- Pulmonary ---
General Information and HPI Consulting Request Date of Consult: 01/11/17 Requested By: Dr. Sanderson Reason for Consult: dyspnea Source of Information: patient Exam Limitations: no limitations History of Present Illness: 61 year old man. Consultation for dyspnea and abnormal CT/Community acquired pneumonia. Patient is known to pulmonary service. Primary tv technician Dr. Puente. History of OHS/JORY - declines to use PAP therapy. History of COPD on 18/05 3LNC o2, Incruse and Advair. Albuterol therapy. Since the snowstorm felt worse with respect to dyspnea, he tried to clean out his car. Began to have bloody streaked sputum and then dark sputum, no overt hemoptysis. CT chest performed showed LLL aispace disease posterior basal segment focus. WBC 14.8, now 13.6. Started on steroids and zithromax. BNP 6800. Non ischemic cardiomyopathy with a reduced EF. Hx of DM. Hx of E.coli sepsis. Sputum culture with pseudomonas sensitive to ciprofloxacin. No n/v/d/c. Allergies/Medications Allergies: Coded Allergies: NO KNOWN ALLERGIES (02/25/16) Home Med List: Albuterol Sulfate (Proair Hfa) 90 MCG HFA.AER.AD 2 PUF INH Q4-6 PRN PRN COPD (Reported) Atorvastatin Calcium (Lipitor) 20 MG TABLET 1 TAB PO 1700 HYPERLIPIDEMIA ( Reported) Carvedilol 12.5 MG TABLET 1 TAB PO BID HEART (Reported) Ferrous Sulfate (IRON) 325 MG (65 MG IRON) TABLET 1 TAB PO DAILY SUPPLEMENT ( Reported) Fluticasone/Salmeterol (Advair 500-50 Diskus) 500 MCG-50 MCG/DOSE BLST.W.DEV 1 PUF INH BID COPD (Reported) Furosemide (Lasix) 40 MG TABLET 1 TAB PO BID DIURETIC (Reported) Glimepiride 1 MG TABLET 1 TAB PO BID DM (Reported) Hydroxyzine HCl 50 MG TABLET 100 MG PO BID MUCUS (Reported) Lisinopril 20 MG TABLET 1 TAB PO DAILY BP (Reported) Metformin HCl (Glucophage) 1,000 MG TABLET 1 TAB PO BID DM (Reported) Montelukast Sodium (Singulair) 10 MG TABLET 1 TAB PO DAILY RESPIRATORY ( Reported) Naproxen Sodium 220 MG TABLET 4 TAB PO BID PRN PAIN (Reported) Oxycodone HCl/Acetaminophen (Percocet 10-325 MG Tablet) 10 MG-325 MG TABLET 1 TAB PO 4 TIMES/DAY PRN PAIN (Reported) Potassium Chloride (Klor-Con M20) 20 MEQ TAB.ER.PRT 1 TAB PO DAILY SUPPLEMENT (Reported) Umeclidinium [place] (Incruse Ellipta) 62.5 MCG/ACTUATION BLST.W.DEV 1 PUFF INH DAILY COPD (Reported) Current Medications: Current Medications Sig/Keaton Start time Last Medication Dose Route Stop Time Status Admin Acetaminophen 650 MG Q6P PRN 01/08 1615 AC PO Atorvastatin Calcium 20 MG 1700 01/08 1700 AC 01/10 PO 1711 Azithromycin 500 MG DAILY 01/09 1000 AC 01/10 Dextrose/Water 250 ML IV 0752 Budesonide/ 2 PUF BID 01/08 2200 AC 01/10 Formoterol Fumarate INH 2057 Carvedilol 12.5 MG BID 01/08 1212 AC 01/10 PO 2129 Ferrous Sulfate 325 MG DAILY 01/09 1000 AC 01/10 PO 0752 Furosemide 40 MG 7:30 AM, & 4:30 PM 01/08 1213 AC 01/11 PO 0659 Guaifenesin 10 ML Q6P PRN 01/10 1130 AC 01/10 PO 2322 Insulin Aspart 0 TIDAC 01/08 1700 AC 01/11 SC 0846 Lisinopril 20 MG DAILY 01/08 1213 AC 01/10 PO 0752 Methylprednisolone 40 MG Q6 01/08 1219 AC 01/11 IV 0657 Montelukast Sodium 10 MG DAILY 01/09 1000 AC 01/10 PO 0752 Oxycodone/ 1 TAB Q4-PRN PRN 01/10 1045 AC 01/11 Acetaminophen PO 0801 Oxycodone/ 1 TAB Q6P PRN 01/08 1215 DC 01/10 Acetaminophen PO 0534 Review of Systems Comments 18 point Review of Systems performed. Positive and negative pertinent findings are deliniated in the HPI. Otherwise the ROS is negative. 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 Relation not specified for: *No pertinent family history Psychosocial History Where Do You Live? Other (homeless lives in his truck) Who Do You Live With? self Services at Home: Oxygen Primary Language: Mongolian Smoking Status: Never Smoked ETOH Use: denies use Illicit Drug Use: denies illicit drug use Functional Ability ADLs Independent: dressing, eating, toileting, bathing. Ambulation: independent IADLs Independent: shopping, housework, finances, food prep, telephone, transportation , medication admin. ECHO Results (as available) Date of last Echo 12/02/15 EF% 15 Exam & Diagnostic Data Last 24 Hrs of Vital Signs/I&O Vital Signs Date Time Temp Pulse Resp B/P Pulse O2 O2 Flow FiO2 Ox Delivery Rate 01/11 1018 74 137/94 01/11 1018 74 37/94 01/11 0800 94 Nasal 3.0L Cannula 01/11 0622 97.8 74 22 137/94 94 Nasal 3.0L Cannula 01/11 0000 96 Nasal 3.0L Cannula 01/10 2232 97.8 71 20 96 Nasal Cannula 01/10 2200 144/82 01/10 2129 71 144/82 01/10 1600 97 Nasal 3.0L Cannula 01/10 1454 98.3 60 20 136/80 97 Nasal 3.0L Cannula Intake & Output 01/11 1600 01/11 0800 01/11 0000 Intake Total 240 960 Output Total 1500 1150 Balance -1260 -190 Intake, Oral 240 960 Output, Urine 1500 1150 Patient 375 lb Weight Physical Exam Other Physical Findings: gen awake and alert heent ncat cvs s1, s2 lungs bilateral rhonchi abd obese, bs+ ext chronic venous changes Last 48 Hrs of Labs/Joaquim: noted Assessment/Plan Impression/Plan: 61 year old man. Consultation for dyspnea and abnormal CT/Community acquired pneumonia. Patient is known to pulmonary service. Primary tv technician Dr. Puente. History of OHS/JORY - declines to use PAP therapy. History of COPD on 24/ 3LNC o2, Incruse and Advair. Albuterol therapy. Since the snowstorm felt worse with respect to dyspnea, he tried to clean out his car. Began to have bloody streaked sputum and then dark sputum, no overt hemoptysis. CT chest performed showed LLL aispace disease posterior basal segment focus. WBC 14.8, now 13.6. Started on steroids and zithromax. BNP 6800. Non ischemic cardiomyopathy with a reduced EF. Hx of DM. Hx of E.coli sepsis. Sputum culture with pseudomonas sensitive to ciprofloxacin. No n/v/d/c. Impression 61 year old man -Acute exacerbation of COPD, secondary to a LLL focus of airspace disease, sputum culture with pseudomonas sensitive to ciprofloxacin -JORY/OHS Plan - d/c current abx - begin ciprofloxacin for a duration of 7 days unless clinical course changes - trc/nebs - ensure albuterol - if can't bring own medications - would use albuterol/ipratropium q6h and q4h prn - d/c symbicort (On Advair and Incruse at home) can resume home meds upon d/c or can bring own meds if okay with pharmacy - declines positive pressure nocturnal therapy as he has done in the past - o2 supplementation - reduce solumedrol to 40mg iv q12h DVT prophylaxis at all times Consult Acknowledgment - Thank you for your consult request.
--- NOTE | 2017-01-11 12:40 | PN- Att Addend ---
Attending Addendum Attending Brief Note Attending Assessment/Plan: Patient seen and examined. Plan of care discussed with the medical team and the patient. Available lab work and radiology test reports were reviewed. Patient continues to complain of for bouts of coughing with sputum production. He denies any fever chills nausea vomiting or chest pains. He has been able to ambulate to bathroom. Patient reports hemoptysis with fresh blood. His pain is better controlled today. Vital Signs Date Time Temp Pulse Resp B/P Pulse O2 O2 Flow FiO2 Ox Delivery Rate 01/11 1018 74 137/94 01/11 1018 74 37/94 01/11 0800 94 Nasal 3.0L Cannula 01/11 0622 97.8 74 22 137/94 94 Nasal 3.0L Cannula 01/11 0000 96 Nasal 3.0L Cannula 01/10 2232 97.8 71 20 96 Nasal Cannula 01/10 2200 144/82 01/10 2129 71 144/82 01/10 1600 97 Nasal 3.0L Cannula 01/10 1454 98.3 60 20 136/80 97 Nasal 3.0L Cannula Intake & Output 01/11 1600 01/11 0800 01/11 0000 Intake Total 240 960 Output Total 1500 1150 Balance -1260 -190 Intake, Oral 240 960 Output, Urine 1500 1150 Patient 375 lb Weight xam: General: Patient obese awake alert oriented without any distress; was noted to have frequent bouts of coughing CVS: S1 plus S2 without any murmur or gallops Chest: Few scattered crepitation without any wheeze. There is no respiratory distress. 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 Sputum cultures is Pseudomonas sensitive to Cipro and yeast. chest CT mall focus of airspace disease within the posterior basal segment of the left lower lobe. This is nonspecific, but could correspond to a developing infiltrate. Recommendation is for a followup chest series to be obtained following treatment and/or resolution of symptoms to assure resolution of this appearance. Cardiomegaly. Assessment * Acute respiratory failure * Left lower lobe pneumonia based on CAT scan * History of COPD with possible COPD exacerbation * Nonischemic myopathy * Status post wide medical pacemaker and defibrillator with the of 20% * History of ventricular tachycardia * History of hypertension * Hyperlipidemia * Morbid obesity * Hemoptysis Plan * Discussed with Dr. Ayala who saw the patient today. * Change antibiotic to ciprofloxacin 500 mg twice a day * Continue current medication for now * Continue Lasix * Monitor daily weights * Pain medicine Percocet was adjusted yesterday to every 4 when necessary
[2017-01-11 22:27] VITALS: BP 148/89
[2017-01-12 06:50] VITALS: BP 140/100
[2017-01-12 08:20] LABS: ABSOLUTE BASOPHIL COUNT 0 /CUMM (0.0-0.2); ABSOLUTE EOSINOPHIL COUNT 0 /CUMM (0.0-0.7); ABSOLUTE GRANULOCYTE CT 8.7 /CUMM (1.4-6.5); ABSOLUTE LYMPH COUNT 1.6 /CUMM (1.2-3.4); ABSOLUTE MONOCYTE COUNT 0.6 /CUMM (0.10-0.60); BASOPHIL % 0.2 % (0.0-2.0); EOSINOPHIL % 0 % (0-5); GRANULOCYTE % 79.3 % (42.2-75.2); HEMATOCRIT 34.7 % (42-52); MEAN CORPUSCULAR HGB 25.4 PG (27.0-31.0); MEAN CORPUSCULAR HGB CONC 31.9 G/DL (33.0-37.0); MEAN CORPUSCULAR VOLUME 79.7 FL (80.0-94.0); MEAN PLATELET VOLUME 7.5 FL (7.4-10.4); PLATELET COUNT 256 /CUMM (130-400); RBC DISTRIBUTION WIDTH 15.2 % (11.5-14.5); RED BLOOD CELL CT 4.36 /CUMM (4.70-6.10)
--- NOTE | 2017-01-12 09:58 | PN- Housestaff ---
LYNNE HARPER,ALEXANDRA 01/12/17 0949: Subjective Follow-up For: COPD exacerbation Pseudomonas left lower lobe pneumonia Complaints: no complaints Subjective: Patient is comfortably sitting in chair and during his breakfast. He denies any worsening shortness of breath, chest pain, palpitation, nausea, vomiting. He had an episode of bowel movement and while wiping he noted blood on on the tissue paper. He also complained of having black stool. Review of Systems Constitutional: Reports: see HPI. Objective Last 24 Hrs of Vital Signs/I&O Vital Signs Date Time Temp Pulse Resp B/P Pulse O2 O2 Flow FiO2 Ox Delivery Rate 01/12 0932 94 Nasal 3.0L Cannula 01/12 0910 68 138/98 01/12 0910 68 140/100 01/12 0650 97.8 68 18 140/100 97 01/12 0000 Nasal 3.0L Cannula 01/11 2227 98.4 61 18 148/89 98 Nasal 3.0L Cannula 01/11 1927 96 Nasal 3.0L Cannula 01/11 1702 Nasal 3.0L Cannula 01/11 1600 Nasal 3.0L Cannula 01/11 1018 74 137/94 01/11 1018 74 37/94 Intake & Output 01/12 1600 01/12 0800 01/12 0000 Intake Total 650 Output Total 1900 1750 Balance -1900 -1100 Intake, Oral 650 Number 1 Bowel Movements Output, Urine 1900 1750 Patient 372 lb Weight Physical Exam General Appearance: Alert, Oriented X3, Cooperative, No Acute Distress Skin: No Rashes HEENT: Atraumatic, PERRLA, EOMI, Mucous Membr. moist/pink Neck: Supple, No JVD Lymphatic: Cervical nl Cardiovascular: Regular Rate, Normal S1, Normal S2, No Murmurs Lungs: Clear to Auscultation, Normal Air Movement Abdomen: Normal Bowel Sounds, Soft, No Tenderness Neurological: Normal Speech, Normal Tone, Sensation Intact Extremities: No Edema Current Medications: Current Medications Sig/Keaton Start time Last Medication Dose Route Stop Time Status Admin Acetaminophen 650 MG Q6P PRN 01/08 1615 AC PO Albuterol Sulfate 3 ML EVERY 4 HRS/AWAKE 01/12 2000 AC 01/12 INH 0927 Atorvastatin Calcium 20 MG 1700 01/08 1700 AC 01/11 PO 1642 Azithromycin 500 MG DAILY 01/09 1000 DC 01/11 Dextrose/Water 250 ML IV 1014 Budesonide/ 2 PUF BID 01/08 2200 DC 01/11 Formoterol Fumarate INH 1018 Carvedilol 12.5 MG BID 01/08 1212 AC 01/12 PO 0910 Ciprofloxacin 500 MG BID 01/11 1321 AC 01/12 PO 01/15 1320 0910 Ciprofloxacin 400 MG Q12 01/11 1311 DC Dextrose/Water 200 ML IV Ferrous Sulfate 325 MG DAILY 01/09 1000 AC 01/12 PO 0910 Furosemide 40 MG 7:30 AM, & 4:30 PM 01/08 1213 AC 01/12 PO 0633 Guaifenesin 10 ML Q6P PRN 01/10 1130 AC 01/10 PO 2322 Insulin Aspart 3 UNITS ONCE ONE 01/11 1445 DC 01/11 SC 01/11 1446 1501 Insulin Aspart 0 TIDAC 01/08 1700 AC 01/12 SC 0812 Lisinopril 20 MG DAILY 01/08 1213 AC 01/12 PO 0910 Methylprednisolone 40 MG Q12 01/11 2200 DC 01/12 IV 0910 Methylprednisolone 40 MG Q6 01/08 1219 DC 01/11 IV 0657 Montelukast Sodium 10 MG DAILY 01/09 1000 AC 01/12 PO 0910 Oxycodone/ 1 TAB Q4-PRN PRN 01/10 1045 AC 01/12 Acetaminophen PO 0633 Prednisone 40 MG DAILY 01/12 1000 UNVr PO Last 24 Hrs of Lab/Joaquim Results Last 24 Hrs of Labs/Mics: Laboratory Tests 01/12/17 0634: CBC w Diff NO MAN DIFF REQ, RBC 4.36 L, MCV 79.7 L, MCH 25.4 L, RDW 15.2 H, MPV 7.5, Gran % 79.3 H, Lymphocytes % 14.8 L, Monocytes % 5.7, Eosinophils % 0 , Basophils % 0.2, Absolute Granulocytes 8.7 H, Absolute Lymphocytes 1.6, Absolute Monocytes 0.6, Absolute Eosinophils 0, Absolute Basophils 0, PUBS MCHC 31.9 L Orders Stool Guaiac Testing: Positive Assessment/Plan Assessment: This is 61 year old morbidly obese man with past medical history of COPD on 3 L home O2 or not on prednisone, nonischemic cardiomyopathy with EF of 15-20% status post biV-PPM and defibrillator in August 2016, type 2 diabetes, hyperlipidemia, history of GI bleed and LISETTE requiring dialysis came from home with chief complaint of progressively worsening shortness of breath associated with productive cough and subjective fever and chills. On exam patient noted having significant wheezing. Labs are consistent with leukocytosis. 1. Acute COPD exacerbation with acute on chronic respiratory failure (on admission O2 sat was 88-89% with tachypnea and use of accessory muscle ) with Pseudomonas left lower lobe pneumonia - CT chest revealed left lower lobe opacity likely pneumonia - O2 sat improved to 97% on 2 L, no wheezing on exam - We'll switch to prednisone 40 mg daily - Continue Ciprofloxacin 500 mg twice a day for LLL pneumonia - TRC treatment and Symbicort - O2 requirement back to baseline of 3 L - blood culture remain negative 2. Nonischemic cardiomyopathy status post biV-PPM and defibrillator placement with HFrEF with EF 15-20%, HX OF vTAC he andH - well compensated - Continue beta angel, Lasix and BON inhibitor - Strict LEYDA's and daily weight 3. Microcytic anemia - Patient had guaiac positive stool, H&H noted stable - Will monitor for any further episode of bleed, if no further episode will recommend outpatient GI evaluation. - We'll get records from his GI doctor regarding previous colonoscopy 3. Hypertension - Continue home dose lisinopril 20 mg daily 4. Hyperlipidemia Continue statin 5. Type 2 diabetes Noted elevated blood sugar level between 175-251 Adjusted NovoLog sliding scale Diabetic diet Accu-Cheks 3 times a day before meals and at night 6. DVT prophylaxis Mechanical due to hemoptysis 7. Full code Problem List: 1. COPD with acute exacerbation 2. Systolic HF (heart failure) 3. Anemia 4. Pneumonia Pain Ratin Pain Location: back Pain Goal: Pain 4 or less Pain Plan: tylenol Tomorrow's Labs & Rationales: none DVT/Prophylaxis: mechanical Consulting Request: Consulting Specialty: Pulmonary Disease Consulting Physician: Dr. Puente Reason for Consult: copd exacerbation [facility] 01/12[facility]17 1512: Attending MD Review Statement Attending Statement Attending MD Statement: examined this patient, discuss w/resident/PA/SWIMMING INSTRUCTOR, agreed w/resident/PA/SWIMMING INSTRUCTOR, reviewed EMR data (avail), discussed with nursing, discussed with case mgmt, amended to note Attending Assessment/Plan: Patient seen and examined. Sitting on the bed and not in any respiratory distress. He is afebrile and hemodynamically stable. He is maintaining saturation on his home dose of oxygen. He offers no new respiratory complaints today. On examination he has mild diffuse rhonchi bilaterally. Patient is very hesitant about being discharged home. He wants to speak with his own wellness coach Hector Lainez MD will be returning tomorrow. Patient currently using his stroke. Case was discussed with the geriatric social worker. He will return to his previous living arrangements. He does have family here in [place] but apparently he chooses not to stay with them. Continue current bronchodilator therapy and steroid therapy. He has been transitioned to oral ciprofloxacin for his Pseudomonas pneumonia. He is to have repeat chest imaging as an outpatient with his wellness coach.
--- NOTE | 2017-01-12 12:07 | PN- Pulmonary ---
Subjective HPI/Critical Care Issues: pt seen and examined feeling better still with some dyspnea no new events no n/v/d/c Objective Current Medications: Current Medications Sig/Keaton Start time Last Medication Dose Route Stop Time Status Admin Acetaminophen 650 MG Q6P PRN 01/08 1615 AC PO Albuterol Sulfate 3 ML EVERY 4 HRS/AWAKE 01/11 2000 AC 01/12 INH 0927 Atorvastatin Calcium 20 MG 1700 01/08 1700 AC 01/11 PO 1642 Azithromycin 500 MG DAILY 01/09 1000 DC 01/11 Dextrose/Water 250 ML IV 1014 Budesonide/ 2 PUF BID 01/08 2200 DC 01/11 Formoterol Fumarate INH 1018 Carvedilol 12.5 MG BID 01/08 1212 AC 01/12 PO 0910 Ciprofloxacin 500 MG BID 01/11 1321 AC 01/12 PO 01/15 1320 0910 Ciprofloxacin 400 MG Q12 01/11 1311 DC Dextrose/Water 200 ML IV Ferrous Sulfate 325 MG DAILY 01/09 1000 AC 01/12 PO 0910 Furosemide 40 MG 7:30 AM, & 4:30 PM 01/08 1213 AC 01/12 PO 0633 Guaifenesin 10 ML Q6P PRN 01/10 1130 AC 01/10 PO 2322 Insulin Aspart 3 UNITS ONCE ONE 01/11 1445 DC 01/11 SC 01/11 1446 1501 Insulin Aspart 0 TIDAC 01/08 1700 AC 01/12 SC 0812 Lisinopril 20 MG DAILY 01/08 1213 AC 01/12 PO 0910 Methylprednisolone 40 MG Q12 01/11 2200 DC 01/12 IV 0910 Methylprednisolone 40 MG Q6 01/08 1219 DC 01/11 IV 0657 Montelukast Sodium 10 MG DAILY 01/09 1000 AC 01/12 PO 0910 Oxycodone/ 1 TAB Q4-PRN PRN 01/10 1045 AC 01/12 Acetaminophen PO 1107 Prednisone 40 MG DAILY 01/13 1000 DC PO Prednisone 60 MG DAILY 01/13 1000 AC PO Prednisone 40 MG DAILY 01/12 1000 DC PO Vital Signs & I&O Last 24 Hrs of Vitals and I&O: Vital Signs Date Time Temp Pulse Resp B/P Pulse O2 O2 Flow FiO2 Ox Delivery Rate 01/12 0932 94 Nasal 3.0L Cannula 01/12 0910 68 138/98 01/12 0910 68 140/100 01/12 0800 95 Nasal 3.0L Cannula 01/12 0650 97.8 68 18 140/100 97 01/12 0000 Nasal 3.0L Cannula 01/11 2227 98.4 61 18 148/89 98 Nasal 3.0L Cannula 01/11 1927 96 Nasal 3.0L Cannula 01/11 1702 Nasal 3.0L Cannula 01/11 1600 Nasal 3.0L Cannula Intake & Output 01/12 1600 01/12 0800 01/12 0000 Intake Total 650 Output Total 1900 1750 Balance -1900 -1100 Intake, Oral 650 Number 1 Bowel Movements Output, Urine 1900 1750 Patient 372 lb Weight Exam Other Physical Findings: gen awake and alert heent ncat cvs s1, s2 lungs bilateral rhonchi abd obese, bs+ ext chronic venous changes Results Last 24 Hrs of Lab Results: Laboratory Tests 01/12/17 0634: CBC w Diff NO MAN DIFF REQ, RBC 4.36 L, MCV 79.7 L, MCH 25.4 L, RDW 15.2 H, MPV 7.5, Gran % 79.3 H, Lymphocytes % 14.8 L, Monocytes % 5.7, Eosinophils % 0 , Basophils % 0.2, Absolute Granulocytes 8.7 H, Absolute Lymphocytes 1.6, Absolute Monocytes 0.6, Absolute Eosinophils 0, Absolute Basophils 0, PUBS MCHC 31.9 L Impression/Plan Impression/Plan Impression/Plan: Impression 61 year old man -Acute exacerbation of COPD, secondary to a LLL focus of airspace disease, sputum culture with pseudomonas sensitive to ciprofloxacin -JORY/OHS Plan - ciprofloxacin for a duration of 7-10 days unless clinical course changes - trc/nebs - ensure albuterol - if can't bring own medications - would use albuterol/ipratropium q6h and q4h prn - On Advair and Incruse at home can resume home meds upon d/c or can bring own meds if okay with pharmacy - declines positive pressure nocturnal therapy as he has done in the past - o2 supplementation - dc solumedrol - prednisone taper 60mg x 2days, 50x2 days, 40x2 days, 30x2 days, 20x2 days, 10x2 days - DC planning - lives out of a truck, speak with case management DVT prophylaxis at all times
--- NOTE | 2017-01-12 14:23 | NUR ---
Referral received on 01/09/17 via electronic small order cutter. This patient is a 61 year old man, known to this designer/writer from multiple admissions. Patient admitted with COPD exacerbation; oxygen dependent when not in hospital. Most significantly, Mr. Padilla lives in his car most of the time. Recently, he has been sharing a motel room with his son, but considers his car to be his home. Amadou and I have similar dialogues with each admission; he pays $900/month for a storage unit; showers at the truck stop or at his sister inlaws home. Alert and oriented and generally pleasant; today Amadou is frustrated with the lack of inconsistent communication amongst his medical team. One doc says he's leaving, the other says no, and vice versa. In spite of Lori challenging life's circumstances, he is a man devoted to his family and their needs as well as to his own. His one son was in an MVA last week and car was demolished. Sadly, this car is used to transport his son to and from dialysis. During interview this am, Amadou was completely focused on needing to be able to help his son, but able to recognize that he must first take car of himself. Looking foward to discharge. Please call if other social work needs arise.
[2017-01-12 15:37] VITALS: BP 140/82
[2017-01-12 22:00] VITALS: BP 136/80
[2017-01-13 06:31] VITALS: BP 112/53
--- NOTE | 2017-01-13 08:35 | PN- Housestaff ---
LYNNE HARPER,ALEXANDRA 01/13/17 0826: Subjective Follow-up For: COPD exacerbation Pseudomonas pneumonia Complaints: complains of occasional cough and shortness of breath on ambulation Subjective: Patient is comfortably sitting in chair, injuring his breakfast. He feels his shortness of breath and wheezing has significantly improved but still have shortness of breath on ambulation. His hemoptysis has improved. He remains afebrile. His stools are more brownish without any rosie blood. He denies any chest pain, palpitation, dizziness, lightheadedness, abdominal pain, nausea, vomiting or urinary symptoms. His bowel movements are regular. Review of Systems Constitutional: Reports: see HPI. Objective Last 24 Hrs of Vital Signs/I&O Vital Signs Date Time Temp Pulse Resp B/P Pulse O2 O2 Flow FiO2 Ox Delivery Rate 01/13 0631 98.4 60 22 112/53 95 Nasal 3.0L Cannula 01/13 0000 Nasal 3.0L Cannula 01/12 2200 97.9 63 18 136/80 97 01/12 2123 63 136/81 01/12 1655 95 Nasal 3.0L Cannula 01/12 1600 95 Nasal 3.0L Cannula 01/12 1537 98.4 64 18 140/82 96 Room Air 01/12 0932 94 Nasal 3.0L Cannula 01/12 0910 68 138/98 01/12 0910 68 140/100 Intake & Output 01/13 1600 01/13 0800 01/13 0000 Intake Total 800 Output Total 350 2550 Balance -350 -1750 Intake, Oral 800 Output, Urine 350 2550 Patient 366 lb Weight Physical Exam General Appearance: Alert, Oriented X3, Cooperative, No Acute Distress Skin: noted chronic venous stasis skin changes over both lower extremities HEENT: Atraumatic, PERRLA, EOMI, Mucous Membr. moist/pink Neck: Supple, No JVD Cardiovascular: Normal S1, Normal S2, No Murmurs Lungs: Clear to Auscultation, Normal Air Movement Abdomen: Normal Bowel Sounds, Soft, No Tenderness Neurological: Normal Speech, Normal Tone, Sensation Intact Extremities: No Edema, Normal Pulses Vascular: Normal Pulses, Pulses Symmetrical Current Medications: Current Medications Sig/Keaton Start time Last Medication Dose Route Stop Time Status Admin Acetaminophen 650 MG Q6P PRN 01/08 1615 AC PO Albuterol Sulfate 3 ML EVERY 4 HRS/AWAKE 01/12 2000 AC 01/12 INH 2105 Atorvastatin Calcium 20 MG 1700 01/08 1700 AC 01/12 PO 1609 Carvedilol 12.5 MG BID 01/08 1212 AC 01/12 PO 2123 Ciprofloxacin 500 MG BID 01/11 1321 AC 01/12 PO 01/15 1320 2121 Ferrous Sulfate 325 MG DAILY 01/09 1000 AC 01/12 PO 0910 Furosemide 40 MG 7:30 AM, & 4:30 PM 01/08 1213 AC 01/13 PO 0746 Guaifenesin 10 ML Q6P PRN 01/10 1130 AC 01/10 PO 2322 Insulin Aspart 0 TIDAC 01/08 1700 AC 01/13 SC 0746 Lisinopril 20 MG DAILY 01/08 1213 AC 01/12 PO 0910 Methylprednisolone 40 MG Q12 01/11 2200 DC 01/12 IV 0910 Montelukast Sodium 10 MG DAILY 01/09 1000 AC 01/12 PO 0910 Oxycodone/ 1 TAB Q4-PRN PRN 01/10 1045 AC 01/13 Acetaminophen PO 0551 Patient Medication 1 ED .STK-MED ONE 01/12 1331 DC Teaching ED 01/12 1332 Prednisone 40 MG DAILY 01/13 1000 DC PO Prednisone 60 MG DAILY 01/13 1000 AC PO Prednisone 40 MG DAILY 01/12 1000 DC PO Last 24 Hrs of Lab/Joaquim Results Last 24 Hrs of Labs/Mics: none Assessment/Plan Assessment: This is 61 year old morbidly obese man with past medical history of COPD on 3 L home O2 or not on prednisone, nonischemic cardiomyopathy with EF of 15-20% status post biV-PPM and defibrillator in August 2016, type 2 diabetes, hyperlipidemia, history of GI bleed and LISETTE requiring dialysis came from home with chief complaint of progressively worsening shortness of breath associated with productive cough and subjective fever and chills. On exam patient noted having significant wheezing on day of admission. Labs are consistent with leukocytosis. 1. Acute COPD exacerbation with acute on chronic respiratory failure (on admission O2 sat was 88-89% with tachypnea and use of accessory muscle ) with Pseudomonas left lower lobe pneumonia - CT chest revealed left lower lobe opacity likely pneumonia - O2 sat improved to 97% on 2 L, no wheezing on exam - Started prednisone 60 mg daily - Continue Ciprofloxacin 500 mg twice a day for LLL pneumonia 4 total of 7-10 days - TRC treatment and Symbicort - O2 requirement back to baseline of 3 L - blood culture remain negative 2. Nonischemic cardiomyopathy status post biV-PPM and defibrillator placement with HFrEF with EF 15-20%, HX OF vTAC - well compensated - Continue beta angel, Lasix and BON inhibitor - Strict LEYDA's and daily weight, remains in net negative fluid balance 3. Microcytic anemia - Patient had guaiac positive stool, H&H noted stable yesterday - No further episode of melena or rosie blood in stool - Will monitor for any further episode of bleed, if no further episode will recommend outpatient GI evaluation. - We'll get records from his GI doctor regarding previous colonoscopy 3. Hypertension - Continue home dose lisinopril 20 mg daily 4. Hyperlipidemia Continue statin 5. Type 2 diabetes Noted elevated blood sugar level between 201 - 290 Adjusted NovoLog sliding scale Diabetic diet Accu-Cheks 3 times a day before meals and at night 6. DVT prophylaxis Mechanical due to hemoptysis 7. Full code Problem List: 1. COPD (chronic obstructive pulmonary disease) 2. Type 2 diabetes mellitus 3. Hyperlipidemia 4. Hypertension Pain Ratin Pain Location: back Pain Goal: Pain 4 or less Pain Plan: tylenol Tomorrow's Labs & Rationales: cbc DVT/Prophylaxis: mechanical Consulting Request: Consulting Specialty: Pulmonary Disease Consulting Physician: Dr. Puente Reason for Consult: copd exacerbation NADIRA HARPER,[facility] 01/13/17 1123: Attending MD Review Statement Attending Statement Attending MD Statement: examined this patient, discuss w/resident/PA/DIGITAL ARCHIVIST, agreed w/resident/PA/DIGITAL ARCHIVIST, reviewed EMR data (avail), discussed with nursing, discussed with case mgmt, amended to note Attending Assessment/Plan: Patient seen and examined. Sitting up in his bed and not in any acute distress. No issues overnight reported by nursing staff. He is saturating 90% on 3 L of oxygen. this is his baseline. He continues to report hesitancy about being discharged stating he is not back to his full baseline. On examination he does have mild rhonchi bilaterally. He was seen by his recreational vehicle repairer today who has reassured him that he can remain in the hospitalto continue care. He is currently on oral steroid therapy as well as oral antibiotic therapy for his Pseudomonas pneumonia. He is afebrile and his leukocytosis is likely secondary to steroid use. Recommendations: -Continue current bronchodilator and steroid regimen. -Continue diuretic therapy for his cardiomyopathy. He shows no evidence of volume overload presently. -Patient may be discharged home once cleared by his recreational vehicle repairer Hector Lainez MD. -Patient reported seeing bright red blood per rectum yesterday. No further episodes of 5. Hemoglobin level has been stable. Records were obtained from his primary care provider's office. He has a history of gastric ulcers and should be on PPI therapy. Colonoscopy revealed internal hemorrhoids. His rectal bleeding is likely secondary to hemorrhoids and appears to have resolved. He is currently hemodynamically stable with stable hemoglobin levels.
[2017-01-13] MEDS ORDERED: PREDNISONE10 M2 PO (09:31)
[2017-01-13] MEDS ORDERED: CIPRO500 M1 PO (09:33)
[2017-01-13] MEDS ORDERED: OMEPRAZOLE20 M2 PO (10:10)
--- NOTE | 2017-01-13 10:46 | PN- Pulmonary ---
Subjective HPI/Critical Care Issues: Patient continues to complain of shortness breath wheezing and cough. Objective Current Medications: Current Medications Sig/Keaton Start time Last Medication Dose Route Stop Time Status Admin Acetaminophen 650 MG Q6P PRN 01/08 1615 AC PO Albuterol Sulfate 3 ML EVERY 4 HRS/AWAKE 01/11 2000 AC 01/13 INH 0833 Atorvastatin Calcium 20 MG 1700 01/08 1700 AC 01/12 PO 1609 Carvedilol 12.5 MG BID 01/08 1212 AC 01/13 PO 0924 Ciprofloxacin 500 MG BID 01/11 1321 AC 01/13 PO 01/15 1320 0924 Ferrous Sulfate 325 MG DAILY 01/09 1000 AC 01/13 PO 0924 Furosemide 40 MG 7:30 AM, & 4:30 PM 01/08 1213 AC 01/13 PO 0746 Guaifenesin 10 ML Q6P PRN 01/10 1130 AC 01/10 PO 2322 Insulin Aspart 0 TIDAC 01/08 1700 AC 01/13 SC 0746 Lisinopril 20 MG DAILY 01/08 1213 AC 01/13 PO 0924 Montelukast Sodium 10 MG DAILY 01/09 1000 AC 01/13 PO 0924 Omeprazole 40 MG DAILY AC 01/13 1006 AC PO Oxycodone/ 1 TAB Q4-PRN PRN 01/10 1045 AC 01/13 Acetaminophen PO 0551 Patient Medication 1 ED .STK-MED ONE 01/12 1331 DC Teaching ED 01/12 1332 Prednisone 60 MG DAILY 01/13 1000 AC 01/13 PO 0924 Vital Signs & I&O Last 24 Hrs of Vitals and I&O: Vital Signs Date Time Temp Pulse Resp B/P Pulse O2 O2 Flow FiO2 Ox Delivery Rate 01/13 09 66 118/56 01/13 09 66 118/56 01/13 0835 98 Nasal 3.0L Cannula 01/13 0631 98.4 60 22 112/53 95 Nasal 3.0L Cannula 01/13 0000 Nasal 3.0L Cannula 01/12 2200 97.9 63 18 136/80 97 01/12 2123 63 136/81 01/12 1655 95 Nasal 3.0L Cannula 01/12 1600 95 Nasal 3.0L Cannula 01/12 1537 98.4 64 18 140/82 96 Room Air Intake & Output 01/13 1600 01/13 0800 01/13 0000 Intake Total 800 Output Total 350 1550 2550 Balance -350 -1550 -1750 Intake, Oral 800 Output, Urine 350 1550 2550 Patient 366 lb Weight Oxygen saturations 3 L 98% exam of his chest shows diffuse expiratory wheezing in both lung jaquez cardiac exam shows regular S1 and S2 without murmurs Impression/Plan Impression/Plan Impression/Plan: 61-year-old gentleman with exacerbation of COPD and possible pseudomonas pneumonia has persistent bronchospasm Recommendations: Patient has persistent bronchospasm and is reluctant to leave. Continue steroids aggressive pulmonary toilet antibiotics and nebs. Taper oxygen his saturations allow anticipate discharge tomorrow
[2017-01-13 14:44] VITALS: BP 101/62
[2017-01-13 22:28] VITALS: BP 114/51
--- NOTE | 2017-01-14 03:00 | NUR ---
SUZETTE C/O SORE THROAT FROM DRY NONPRODUCTIVE COUGH, NEW ORDER OBTAINED FOR PRN THROAT LOZENGES.
[2017-01-14 06:50] VITALS: BP 114/78
--- NOTE | 2017-01-14 08:21 | PN- Pulmonary ---
Subjective HPI/Critical Care Issues: Patient feels better and wheezing has resolved Objective Current Medications: Current Medications Sig/Keaton Start time Last Medication Dose Route Stop Time Status Admin Acetaminophen 650 MG Q6P PRN 01/08 1615 AC PO Albuterol Sulfate 3 ML EVERY 4 HRS/AWAKE 01/11 2000 AC 01/14 INH 0807 Atorvastatin Calcium 20 MG 1700 01/08 1700 AC 01/13 PO 1710 Benzocaine/Menthol 1 PACO Q2P PRN 01/14 0200 AC 01/14 PO 0313 Carvedilol 12.5 MG BID 01/08 1212 AC 01/13 PO 2112 Ciprofloxacin 500 MG BID 01/11 1321 AC 01/13 PO 01/15 1320 2111 Ferrous Sulfate 325 MG DAILY 01/09 1000 AC 01/13 PO 0924 Furosemide 40 MG 7:30 AM, & 4:30 PM 01/08 1213 AC 01/14 PO 0655 Guaifenesin 10 ML Q6P PRN 01/10 1130 AC 01/10 PO 2322 Insulin Aspart 0 TIDAC 01/08 1700 AC 01/13 SC 1710 Lisinopril 20 MG DAILY 01/08 1213 AC 01/13 PO 0924 Montelukast Sodium 10 MG DAILY 01/09 1000 AC 01/13 PO 0924 Omeprazole 40 MG DAILY AC 01/13 1006 AC 01/14 PO 0559 Oxycodone/ 1 TAB Q4-PRN PRN 01/10 1045 AC 01/14 Acetaminophen PO 0559 Prednisone 60 MG DAILY 01/13 1000 AC 01/13 PO 0924 Vital Signs & I&O Last 24 Hrs of Vitals and I&O: Vital Signs Date Time Temp Pulse Resp B/P Pulse O2 O2 Flow FiO2 Ox Delivery Rate 01/14 0650 97.8 63 20 114/78 97 Nasal 3.0L Cannula 01/14 0000 Nasal 3.0L Cannula 01/138 98.8 61 20 114/51 97 01/13 2112 68 124/76 01/13 1900 Nasal 3.0L Cannula 01/13 1600 93 Nasal 3.0L Cannula 01/13 1553 97 Nasal 3.0L Cannula 01/13 1444 98.8 60 20 101/62 94 Nasal 3.0L Cannula 01/13 0924 66 118/56 01/13 0924 66 118/56 01/13 0835 98 Nasal 3.0L Cannula Intake & Output 01/14 1600 01/14 0800 01/14 0000 Intake Total 480 1300 Output Total 700 1300 Balance -220 0 Intake, Oral 480 1300 Output, Urine 700 1300 Patient 365 lb Weight Action saturation 3 L 97% exam for chest shows clear lung jaquez are no wheezes heard cardiac exam shows regular S1 and S2 without murmurs Impression/Plan Impression/Plan Impression/Plan: 61-year-old gentleman with exacerbation of COPD and possible pseudomonas pneumonia has improved bronchospasm Recommendations: Patient's exam is improved. Recommend slow prednisone taper and completion of antibiotics. Outpatient follow-up after discharge. Oxygen can be tapered to maintain obtain sats greater than or equal 92%
--- NOTE | 2017-01-14 08:28 | PN- Housestaff ---
LYNNE HARPER,ALEXANDRA 01/14/17 0819: Subjective Follow-up For: COPD exacerbation Pseudomonas pneumonia Complaints: cough and wheezing Subjective: Patient is comfortably sitting in chair. He feels his shortness of breath has improved but still complaining of cough and wheezing and shortness of breath on ambulation. He denies any fever, chills, chest pain, lightheadedness, dizziness , abdominal pain, nausea, vomiting or any urinary symptoms. Review of Systems Constitutional: Reports: see HPI. Objective Last 24 Hrs of Vital Signs/I&O Vital Signs Date Time Temp Pulse Resp B/P Pulse O2 O2 Flow FiO2 Ox Delivery Rate 01/14 0650 97.8 63 20 114/78 97 Nasal 3.0L Cannula 01/14 0000 Nasal 3.0L Cannula 01/13 2228 98.8 61 20 114/51 97 01/13 2112 68 124/76 01/13 1900 Nasal 3.0L Cannula 01/13 1600 93 Nasal 3.0L Cannula 01/13 1553 97 Nasal 3.0L Cannula 01/13 1444 98.8 60 20 101/62 94 Nasal 3.0L Cannula 01/13 0924 66 118/56 01/13 0924 66 118/56 01/13 0835 98 Nasal 3.0L Cannula Intake & Output 01/14 1600 01/14 0800 01/14 0000 Intake Total 480 1300 Output Total 700 1300 Balance -220 0 Intake, Oral 480 1300 Output, Urine 700 1300 Patient 365 lb Weight Physical Exam General Appearance: Alert, Oriented X3, Cooperative, No Acute Distress Skin: noted chronic venous stasis skin changes over both lower extremities HEENT: Atraumatic, PERRLA, EOMI, Mucous Membr. moist/pink Neck: Supple, No JVD Cardiovascular: Normal S1, Normal S2, No Murmurs Lungs: Clear to Auscultation, Normal Air Movement Abdomen: Normal Bowel Sounds, Soft, No Tenderness Neurological: Normal Speech, Normal Tone, Sensation Intact Extremities: No Edema, Normal Pulses Vascular: Pulses Symmetrical Current Medications: The Current Medications Sig/Keaton Start time Last Medication Dose Route Stop Time Status Admin Acetaminophen 650 MG Q6P PRN 01/08 1615 AC PO Albuterol Sulfate 3 ML EVERY 4 HRS/AWAKE 01/12 2000 AC 01/14 INH 0807 Atorvastatin Calcium 20 MG 1700 01/08 1700 AC 01/13 PO 1710 Benzocaine/Menthol 1 PACO Q2P PRN 01/14 0200 AC 01/14 PO 0313 Carvedilol 12.5 MG BID 01/08 1212 AC 01/13 PO 2112 Ciprofloxacin 500 MG BID 01/11 1321 AC 01/13 PO 01/15 1320 2111 Ferrous Sulfate 325 MG DAILY 01/09 1000 AC 01/13 PO 0924 Furosemide 40 MG 7:30 AM, & 4:30 PM 01/08 1213 AC 01/14 PO 0655 Guaifenesin 10 ML Q6P PRN 01/10 1130 AC 01/10 PO 2322 Insulin Aspart 0 TIDAC 01/08 1700 AC 01/13 SC 1710 Lisinopril 20 MG DAILY 01/08 1213 AC 01/13 PO 0924 Montelukast Sodium 10 MG DAILY 01/09 1000 AC 01/13 PO 0924 Omeprazole 40 MG DAILY AC 01/13 1006 AC 01/14 PO 0559 Oxycodone/ 1 TAB Q4-PRN PRN 01/10 1045 AC 01/14 Acetaminophen PO 0559 Prednisone 60 MG DAILY 01/13 1000 AC 01/13 PO 0924 Last 24 Hrs of Lab/Joaquim Results Last 24 Hrs of Labs/Mics: none Orders Fingersticks (last 24 hrs): 216/345/242/191 Assessment/Plan Assessment: This is 61 year old morbidly obese man with past medical history of COPD on 3 L home O2 or not on prednisone, nonischemic cardiomyopathy with EF of 15-20% status post biV-PPM and defibrillator in August 2016, type 2 diabetes, hyperlipidemia, history of GI bleed and LISETTE requiring dialysis came from home with chief complaint of progressively worsening shortness of breath associated with productive cough and subjective fever and chills. On exam patient noted having significant wheezing on day of admission. Labs are consistent with leukocytosis. 1. Acute COPD exacerbation with acute on chronic respiratory failure (on admission O2 sat was 88-89% with tachypnea and use of accessory muscle ) with Pseudomonas left lower lobe pneumonia - CT chest revealed left lower lobe opacity likely pneumonia - O2 sat improved to 97% on 2 L, no wheezing on exam -Continue prednisone 60 mg daily - Continue Ciprofloxacin 500 mg twice a day for LLL pneumonia 4 total of 7-10 days - TRC treatment and Symbicort - O2 requirement back to baseline of 3 L - blood culture remain negative 2. Nonischemic cardiomyopathy status post biV-PPM and defibrillator placement with HFrEF with EF 15-20%, HX OF vTAC - well compensated - Continue beta angel, Lasix and BON inhibitor - Strict LEYDA's and daily weight, remains in net negative fluid balance 3. Microcytic anemia - Patient had guaiac positive stool, H&H noted stable yesterday - No further episode of melena or rosie blood in stool -Records from his senior benefits analyst regarding Outpatient colonoscopy and EGD done in 2014 obtained. Noted deep ulceration in stomach and shallow ulceration in duodenum, at that time patient was advised to take PPI twice daily and repeat EGD in 3 months which patient hasn't followed up with. His colonoscopy was significant for internal hemorrhoid without any polyp and was advise for repeat screening colonoscopy in 10 years. - Patient recommended to follow-up with his outpatient gastroenterology for further evaluation of gastric ulcer disease and occult bleeding 3. Hypertension - Continue home dose lisinopril 20 mg daily 4. Hyperlipidemia Continue statin 5. Type 2 diabetes Noted elevated blood sugar level between 345-191 continue NovoLog sliding scale Diabetic diet Accu-Cheks 3 times a day before meals and at night 6. DVT prophylaxis Mechanical due to hemoptysis 7. Full code Problem List: 1. Pneumonia 2. CHF (congestive heart failure) 3. Cardiomyopathy 4. Hypertension 5. COPD exacerbation Pain Ratin Pain Location: back Pain Goal: Pain 4 or less Pain Plan: tylenol, percocet Tomorrow's Labs & Rationales: none DVT/Prophylaxis: mechanical Consulting Request: Consulting Specialty: Pulmonary Disease Consulting Physician: Dr. Puente Reason for Consult: copd exacerbation NADIRA HARPER,[facility] 01/14/17 1224: Attending MD Review Statement Attending Statement Attending MD Statement: examined this patient, discuss w/resident/PA/EDUCATIONAL MANAGER, agreed w/resident/PA/EDUCATIONAL MANAGER, reviewed EMR data (avail), discussed with nursing, discussed with case mgmt, amended to note Attending Assessment/Plan: Patient seen and examined. Sitting up in his bed using his computer. Not in any distress. He reports feeling better today and looks forward to going home later on this afternoon. Denies chest pain or shortness of breath. Denies palpitations. He is maintaining saturation on his baseline oxygen. He has been cleared for discharge by his corporate concierge. On examination lungs are clear today. Recommendations: -Patient is medically stable to be discharged today. -He is to continue his bronchodilator regimen and will be provided with prescriptions for prednisone taper on ciprofloxacin to treat his pseudomonas pneumonia. -He is to follow-up with his corporate concierge Hector Lainez MD as an outpatient.
[2017-01-14 14:17] VITALS: BP 110/56
== END 2017-01-14 14:28 | DRG 190 ==
LOC: ENRESERVDT → ENRESERVTM → ERH 08:02 → ENPENDDIS 11:11 → 2NB 11:11 → ERHI 11:11 → 2NB 15:53
PROVIDERS: Internal Medicine; Physician Assistant; Student in an Organized Health Care Education/Training Program; ADMIT Internal Medicine
DX: J44.1 Chronic obstructive pulmonary disease with (acute) exacerbation (principal); J96.20 Acute and chronic respiratory failure, unspecified whether with hypoxia or hypercapnia; J15.1 Pneumonia due to Pseudomonas; I42.9 Cardiomyopathy, unspecified; I11.0 Hypertensive heart disease with heart failure; Z68.42 Body mass index [BMI] 45.0-49.9, adult; I50.22 Chronic systolic (congestive) heart failure; Z99.81 Dependence on supplemental oxygen; E66.01 Morbid (severe) obesity due to excess calories; Z59.0 Homelessness; Z95.810 Presence of automatic (implantable) cardiac defibrillator; E11.9 Type 2 diabetes mellitus without complications; Z79.84 Long term (current) use of oral hypoglycemic drugs; E78.5 Hyperlipidemia, unspecified; G47.33 Obstructive sleep apnea (adult) (pediatric); D64.9 Anemia, unspecified
CPT/HCPCS: 2NBSP; 36415; 82436; 87040; 87070; 87071; 87449; 87450; 87804; 87804-59; 93005; 93010; 96365; 96375; J0456; J2920; J2930; J3490; J7060

== ENCOUNTER 2017-05-04 16:00 | Inpatient (IN) | payer OTHER, MEDICARE ==
[~2017-05-04] VITALS: Ht 182.9 cm; Wt 170.6 kg
[~2017-05-04 16:00] MED LIST changes: +CIPRO500 M1 PO; +OMEPRAZOLE20 M2 PO; +PERCOCET 10-321 EACH PO
--- NOTE | 2017-05-04 16:02 | NUR ---
REPORTS HE IS NORMALLY ON 3.5L O2
--- NOTE | 2017-05-04 16:07 | NUR ---
62 YO AMLE TO ER C/O WEAKNESS AND ?PNA. STATES "SPITTING UP ALOT OF PHLEGM" ALSO C/O SWELLING TO L LEG/FOOT. C/O "A LITTLE BIT" OF CHEST PAIN. PT WEARS OXYGEN AT BASELINE 3.5L, PT DID NOT BRING OXYGEN INTO ER. RA SATS 97% AT THIS TIME.
--- NOTE | 2017-05-04 16:07 | NUR ---
PT TAKEN TO ER ROOM 6 FOR EKG
[2017-05-04] MEDS ORDERED: COMBIVENT RESPIM4 GM INH (16:12)
[2017-05-04] MEDS ORDERED: ATORVASTATIN CA10 M1 PO (16:13)
[2017-05-04] MEDS ORDERED: HYDROXYZINE HCL50 M1 PO (16:13)
[2017-05-04] MEDS ORDERED: LISINOPRIL10 M1 PO (16:13)
[2017-05-04] MEDS ORDERED: ALEVE220 M1 PO (16:14)
--- NOTE | 2017-05-04 16:29 | NUR ---
PT TO ROOM6 BY WHEELCHAIR, NURSING CARE ASSUMED, EKG DONE. ANGELITTANNER PROVIDER MUNA.
--- NOTE | 2017-05-04 16:48 | NUR ---
BLOOD DRAWN AND SENT TO LAB-[facility]. RAD TO BEDSIDE FOR CHEST XRAY.
[2017-05-04 17:02] LABS: ABSOLUTE BASOPHIL COUNT 0 /CUMM (0.0-0.2); ABSOLUTE EOSINOPHIL COUNT 0.2 /CUMM (0.0-0.7); ABSOLUTE GRANULOCYTE CT 5.6 /CUMM (1.4-6.5); ABSOLUTE LYMPH COUNT 2.1 /CUMM (1.2-3.4); ABSOLUTE MONOCYTE COUNT 0.8 /CUMM (0.10-0.60); BASOPHIL % 0.2 % (0.0-2.0); EOSINOPHIL % 2.1 % (0-5); MEAN CORPUSCULAR HGB 21.4 PG (27.0-31.0); MEAN CORPUSCULAR HGB CONC 30.7 G/DL (33.0-37.0); MEAN CORPUSCULAR VOLUME 69.6 FL (80.0-94.0); MEAN PLATELET VOLUME 6.5 FL (7.4-10.4); PLATELET COUNT 340 /CUMM (130-400); RBC DISTRIBUTION WIDTH 18.9 % (11.5-14.5); RED BLOOD CELL CT 2.63 /CUMM (4.70-6.10); WHITE BLOOD CELL COUNT 8.7 /CUMM (4.8-10.8)
--- NOTE | 2017-05-04 17:13 | ED GENERAL ADULT ---
History of Present Illness General Chief Complaint: General Adult Stated Complaint: SIB PCP FOR ?PNA Source: patient, old records Exam Limitations: no limitations Vital Signs & Intake/Output Vital Signs & Intake/Output Vital Signs Date Time Temp Pulse Resp B/P B/P Pulse O2 O2 Flow FiO2 Mean Ox Delivery Rate 05/04 1701 98.3 72 18 146/63 94 Room Air 05/04 1606 98.1 76 18 112/66 97 Room Air Allergies Coded Allergies: NO KNOWN ALLERGIES (02/25/16) Reconcile Medications Albuterol Sulfate (Proair Hfa) 90 MCG HFA.AER.AD 2 PUF INH Q4-6 PRN PRN COPD (Reported) Atorvastatin Calcium 10 MG TABLET 1 TAB PO DAILY CHOLESTEROL (Reported) Carvedilol 12.5 MG TABLET 1 TAB PO BID HEART (Reported) Ferrous Sulfate 325 MG (65 MG IRON) TABLET 1 TAB PO DAILY anemia Fluticasone/Salmeterol (Advair 500-50 Diskus) 500 MCG-50 MCG/DOSE BLST.W.DEV 1 PUF INH BID COPD (Reported) Furosemide (Lasix) 40 MG TABLET 1 TAB PO BID DIURETIC (Reported) Glimepiride 1 MG TABLET 1 TAB PO BID DM (Reported) Hydroxyzine HCl 50 MG TABLET 2 TAB PO BID MUCUS (Reported) Ipratropium/Albuterol Sulfate (Combivent Respimat Inhal [place]) 20 MCG-100 MCG/ ACTUATION MIST.INHAL 2 PUFF INH BID copd (Reported) Lisinopril 10 MG TABLET 1 TAB PO DAILY BP (Reported) Metformin HCl (Glucophage) 1,000 MG TABLET 1 TAB PO BID DM (Reported) Montelukast Sodium (Singulair) 10 MG TABLET 1 TAB PO DAILY RESPIRATORY ( Reported) Omeprazole 40 MG CAPSULE.DR 1 CAP PO DAILY upper gi bleed, ulcers take 2 tabs each day for one week then take one tab everyday Oxycodone HCl/Acetaminophen (Percocet 10-325 MG Tablet) 10 MG-325 MG TABLET 1 TAB PO 4 TIMES/DAY PRN PAIN (Reported) Potassium Chloride (Klor-Con M20) 20 MEQ TAB.ER.PRT 1 TAB PO DAILY SUPPLEMENT (Reported) Umeclidinium [place] (Incruse Ellipta) 62.5 MCG/ACTUATION BLST.W.DEV 1 PUFF INH DAILY COPD (Reported) Triage Note: 62 YO AMLE TO ER C/O WEAKNESS AND ?PNA. STATES "SPITTING UP ALOT OF PHLEGM" ALSO C/O SWELLING TO L LEG/FOOT. C/O "A LITTLE BIT" OF CHEST PAIN. PT WEARS OXYGEN AT BASELINE 3.5L, PT DID NOT BRING OXYGEN INTO ER. RA SATS 97% AT THIS TIME. Triage Nurses Notes Reviewed? yes Onset: Gradual Duration: day(s): Timing: recent history Severity: moderate HPI: 62yo male with hx of COPD, CHF, DM presents to ED Complaining of weakness and dyspnea increasing over the past 3 days. Patient is currently homeless following significant medical bills and problems. He has a chronic cough which has worsened over the past few days as well, productive of yellow sputum. He is also complaining of chest pain when he coughs. He also has intermittent nausea and intermittent chills. He denies fever, palpitations, syncope, hemoptysis, vomiting. Past History Travel History Traveled to [place] past 21 day No Medical History Any Pertinent Medical History? 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 Relation not specified for: *No pertinent family history Hx Contributory? No Review of Systems Review of Systems Constitutional: Reports: see HPI. EENTM: Reports: no symptoms. Respiratory: Reports: see HPI. Cardiovascular: Reports: see HPI. GI: Reports: see HPI. Genitourinary: Reports: no symptoms. Musculoskeletal: Reports: no symptoms. Skin: Reports: no symptoms. Neurological/Psychological: Reports: see HPI. Hematologic/Endocrine: Reports: no symptoms. Immunologic/Allergic: Reports: no symptoms. All Other Systems: Reviewed and Negative Physical Exam Physical Exam General Appearance: well developed/nourished, no apparent distress, alert, awake , obese Head: atraumatic, normal appearance Eyes: Bilateral: normal appearance. Ears, Nose, Throat: hearing grossly normal Neck: normal inspection, supple, full range of motion Respiratory: expiratory wheezes in left upper lobe, slightly decreased breath sounds in right posterior lung jaquez Cardiovascular: regular rate/rhythm Gastrointestinal: normal bowel sounds, soft, non-tender Rectal: normal rectal tone, heme positive stool, brown stool Extremities: normal range of motion, pedal edema, dark purple discoloration of skin of bialteral lower legs Neurologic/Psych: awake, alert, oriented x 3 Skin: intact, dark purple/blue discoloration of bilateral lower extremities with edema Core Measures ACS in differential dx? Yes CVA/TIA Diagnosis: No Severe Sepsis Present: No Septic Shock Present: No Progress Differential Diagnoses I considered the following diagnoses in my evaluation of the patient: [PNA, PE, ACS, sepsis, anemia] Plan of Care: Orders Procedure Date/time Status Heart Healthy Diet 05/05 B Active Regular Diet 05/04 D Complete Add-on Test (ER Only) 05/04 1818 Active OXYGEN SETUP (GEN) 05/04 180 Active Saline Lock 05/04 1806 Active Admit to inpatient 05/04 1806 Active Vital Signs 05/04 1806 Active Activity/Ambulation 05/04 1806 Active Code Status 05/04 1806 Active TYPE & SCREEN (NOT X-MATCH) 05/04 1731 Active TROPONIN LEVEL 05/04 1646 Active COMPREHENSIVE METABOLIC PANEL 05/04 1643 Active CBC WITHOUT DIFFERENTIAL 05/04 1643 Complete EKG 05/04 1602 Active Laboratory Tests 05/04/17 1646: Anion Gap 10, Estimated GFR 48 L, BUN/Creatinine Ratio 18.7, Glucose 71, Calcium 9.2, Total Bilirubin 0.7, AST 11 L, ALT 15 L, Alkaline Phosphatase 80, Troponin I Pending, Total Protein 6.3, Albumin 3.3 L, Globulin 3.0, Albumin/ Globulin Ratio 1.1, CBC w Diff NO MAN DIFF REQ, RBC 2.63 L, MCV 69.6 L, MCH 21.4 L, RDW 18.9 H, MPV 6.5 L, Gran % 65.0, Lymphocytes % 23.7, Monocytes % 9.0, Eosinophils % 2.1, Basophils % 0.2, Absolute Granulocytes 5.6, Absolute Lymphocytes 2.1, Absolute Monocytes 0.8 H, Absolute Eosinophils 0.2, Absolute Basophils 0, PUBS MCHC 30.[address] Su regarding lab results and symptomatic anemia. Patient will need transfusion, the patient has signed consent for tranfusion, blood bank results are pending. Spoke with Dr. Ochoa, patient will be admitted for his symptomatic anemia, he will require telemetry monitoring given his cardiac history and symptoms. The patient will also require transfusion with repeat labs, GI consult, possible hematology consult. The patient is homeless, premature discharge would be medically harmful. 1841 - Spoke with GI Dr. Salazar, they will consult in the morning given hx of black stool and heme + brown stool on exam in setting of anemia. (ROSSY CONTRERAS,SHAKILA TREJO) Diagnostic Imaging: Viewed by Me: Radiology Read. Discussed w/RAD: Radiology Read. CXR Impression: PATIENT: SUZETTE GRIGSBY SR PRESENT AGE : 62 PATIENT ACCOUNT NO: [id number] : 57 LOCATION: [facility] ([facility] ORDERING PHYSICIAN: SHAKILA BLAIR PA-C SERVICE DATE: 05/04/17 EXAM TYPE: RAD - XRY- PORTABLE CHEST XRAY EXAMINATION: CHEST 1 VIEW CLINICAL INFORMATION: Cough, dyspnea. COMPARISON: Marked 2016. TECHNIQUE: An AP view of the chest is provided. FINDINGS: The cardiac silhouette is prominent, but stable. Pacer leads overlie the right atrium and right ventricle. There is mild interstitial prominence present throughout both lungs. There are neither pleural effusions nor pneumothoraces. There are no consolidations. The osseous structures are stable. IMPRESSION: Mild interstitial prominence. Stable cardiomegaly. DICTATED BY: CARMEN HERRING MD DATE/TIME DICTATED:05/04/171726 WATER RIGHTS SPECIALIST: FRED DATE/TIME TRANSCRIBED:05/04/171726 CONFIDENTIAL, DO NOT COPY WITHOUT APPROPRIATE AUTHORIZATION. <Electronically signed in Other Vendor System> SIGNED BY: CARMEN HERRING MD 05/04/171733 Initial ED EKG: REGULAR RATE, 77BPM, ATRIAL-SENSED VENTRICULAR-PACED COMPLEXES, LAD Prior EKG: changed (T WAVE CHANGES FROM 01/08/17) Departure Departure Time of Disposition: 1843 Disposition: STILL A PATIENT Condition: Stable Clinical Impression Primary Impression: Symptomatic anemia Referrals: UNKNOWN (PCP/Family) Departure Forms: Customer Survey General Discharge Information Prescriptions: Current Visit Scripts Omeprazole 1 CAP PO DAILY #30 CAP take 2 tabs each day for one week then take one tab everyday Ferrous Sulfate 1 TAB PO DAILY #30 TAB Admission Note Spoke With: KAYLAN OCHOA MD Documentation of Exam: Documentation of any treatments & extenuating circumstances including Concerns Regarding Discharge (functional status, medication knowledge or non-compliance, living conditions, etc.) that warrant an admission rather than observation: [ Severe symptomatic anemia, requiring packed RBC transfusions, GI consult, repeat blood work, telemetry monitoring, monitoring of comorbid conditions] Critical Care Note Critical Care Note Critical Care Time: non-applicable
[2017-05-04 17:16] LABS: HEMATOCRIT 18.3 % (42-52)
--- NOTE | 2017-05-04 17:22 | NUR ---
CRITICAL TEST RESULTS [id number] SUZETTE GRIGSBY SR 62 M TESTS AND RESULTS: HGB 5.6 HCT 18.3 Results received and read back by: VERONICA REYES Results received date and time: 05/04/17 1723 The following provider was notified of the results, and read the results back: ALEXIS BLAIR Notified date and time: 05/04/17 at 1727
--- NOTE | 2017-05-04 17:34 | RADIOLOGY REPORT ---
EXAMINATION: CHEST 1 VIEW CLINICAL INFORMATION: Cough, dyspnea. COMPARISON: Marked 2016. TECHNIQUE: An AP view of the chest is provided. FINDINGS: The cardiac silhouette is prominent, but stable. Pacer leads overlie the right atrium and right ventricle. There is mild interstitial prominence present throughout both lungs. There are neither pleural effusions nor pneumothoraces. There are no consolidations. The osseous structures are stable. IMPRESSION: Mild interstitial prominence. Stable cardiomegaly.
--- NOTE | 2017-05-04 19:03 | NUR ---
BLOOD DRAWN AND SENT TO LAB (P[facility])
--- NOTE | 2017-05-04 19:12 | NUR ---
FOOD TRAY PROVIDED TO PT.
--- NOTE | 2017-05-04 19:29 | NUR ---
PT AMBULATORY TO AND FROM RESTROOM WITH CANE.
--- NOTE | 2017-05-04 20:01 | NUR ---
DR DE LA TORRE AT BEDSIDE FOR EVAL.
--- NOTE | 2017-05-04 21:00 | History & Physical ---
VOLODYMYR HARPER,[facility] 05/04/17 2100: General Information and HPI MD Statement: I have seen and personally examined SUZETTE PADILLA SR and documented this H&P. The patient is a 62 year old M who presented with a patient stated chief complaint of [weakness and shortness of breath]. Source of Information: patient Exam Limitations: no limitations History of Present Illness: Patient is a 62-year-old male with past history of diabetes, CHF, hyperlipidemia , cardiomyopathy, chronic venous insufficiency, COPD, sleep apnea, and multiple bronchitis and pneumonia episodes presenting with shortness of breath and weakness for 1 week. He states he saw his PCP today who told him to come into the emergency department because his lungs sounded congested. The patient states he has a chronic cough, but it has been getting worse the sputum is becoming more yellow and he is coughing up more sputum frequently. Patient endorses fever which started 2 days ago and intermittent chills. He also states that he has headaches and a sore throat. He has chest pain due to his cough. He also states he has abdominal pain. The abdominal pain is due to him not having any food in his medicines make him nauseous when he takes them without eating. He denies any night sweats, vision changes, nausea or vomiting, or heartburn. He states that he has tooth pain which is relieved by naproxen. He also has a history of arthritis which he states he takes Percocets every 4-6 hours as needed for his pain. The patient also states that his feet have been swelling due to his CHF. The patient states that 5-6 days ago he has noticed very black stools which lasted for 4-5 days. His last bowel movement was today and he said it was normal cain colored stool. Guaiac test in the ED was negative. Of note, 6 days before 2015 the patient lost his son. He also lost his 3.5 years ago. He has been in and out of the hospital many times. The financial stress of being in the hospital has caused him to become homeless. He lives in his truck with his dog. He states that he pays 1k/month in storage fees for his car, motorcycle, and other valuables. Allergies/Medications Allergies: Coded Allergies: NO KNOWN ALLERGIES (02/25/16) Home Med list Albuterol Sulfate (Proair Hfa) 90 MCG HFA.AER.AD 2 PUF INH Q4-6 PRN PRN COPD (Reported) Atorvastatin Calcium 10 MG TABLET 1 TAB PO DAILY CHOLESTEROL (Reported) Carvedilol 12.5 MG TABLET 1 TAB PO BID HEART (Reported) Fluticasone/Salmeterol (Advair 500-50 Diskus) 500 MCG-50 MCG/DOSE BLST.W.DEV 1 PUF INH BID COPD (Reported) Furosemide (Lasix) 40 MG TABLET 1 TAB PO BID DIURETIC (Reported) Glimepiride 1 MG TABLET 1 TAB PO BID DM (Reported) Hydroxyzine HCl 50 MG TABLET 2 TAB PO BID MUCUS (Reported) Ipratropium/Albuterol Sulfate (Combivent Respimat Inhal [place]) 20 MCG-100 MCG/ ACTUATION MIST.INHAL 2 PUFF INH BID copd (Reported) Lisinopril 10 MG TABLET 1 TAB PO DAILY BP (Reported) Metformin HCl (Glucophage) 1,000 MG TABLET 1 TAB PO BID DM (Reported) Montelukast Sodium (Singulair) 10 MG TABLET 1 TAB PO DAILY RESPIRATORY ( Reported) Naproxen Sodium (Aleve) 220 MG CAPSULE 6 TAB PO BID PAIN (Reported) Oxycodone HCl/Acetaminophen (Percocet 10-325 MG Tablet) 10 MG-325 MG TABLET 1 TAB PO 4 TIMES/DAY PRN PAIN (Reported) Potassium Chloride (Klor-Con M20) 20 MEQ TAB.ER.PRT 1 TAB PO DAILY SUPPLEMENT (Reported) Umeclidinium [place] (Incruse Ellipta) 62.5 MCG/ACTUATION BLST.W.DEV 1 PUFF INH DAILY COPD (Reported) Past History Travel History Traveled to [place] past 21 day No Medical History Neurological: NONE EENT: NONE Cardiovascular: cardiomyopathy, CHF, chronic venous insuff, hyperlipidemia Respiratory: COPD, SLEEP APNEA Gastrointestinal: NONE Hepatic: NONE Renal: NONE Musculoskeletal: NONE Psychiatric: NONE Endocrine: diabetes Blood Disorders: NONE Cancer(s): NONE MOVING CONSULTANT/Reproductive: NONE History of MRSA: No History of VRE: No History of CDIFF: No Influenza Vaccine: 07/26/16 Surgical History Surgical History: Left orchiectomy 20+ yrs ago Past Family/Social History Family History Relations & Conditions if any FATHER Alzheimer's disease FHx: heart disease MOTHER, ; Cause: Heart disease. Relation not specified for: *No pertinent family history Psychosocial History Who Do You Live With? self Services at Home: Oxygen Primary Language: Indian Functional Ability ADLs Independent: dressing, eating, toileting, bathing. Ambulation: independent IADLs Independent: shopping, housework, finances, food prep, telephone, transportation , medication admin. Review of Systems Review of Systems Constitutional: Reports: chills, fever. EENTM: Reports: see HPI (headache), mouth pain, tooth pain. Cardiovascular: Reports: see HPI, chest pain (sternal pain with cough). Respiratory: Reports: cough, short of breath. GI: Reports: abdominal pain. Denies: nausea (due to lack of food w/meds), vomiting. Musculoskeletal: Reports: joint pain. Exam & Diagnostic Data Last 24 Hrs of Vital Signs/I&O Vital Signs Date Time Temp Pulse Resp B/P B/P Pulse O2 O2 Flow FiO2 Mean Ox Delivery Rate 05/05 0707 98.1 70 20 122/76 100 Nasal 3.5L Cannula 05/05 0409 97.7 83 18 128/98 100 Nasal 3.5L Cannula 05/05 0405 98 Nasal 3.5L Cannula 05/05 0320 97.0 62 16 108/56 100 Nasal 2.0L Cannula 05/05 0200 97.2 61 16 104/55 100 Nasal 2.0L Cannula 05/05 0100 97.2 58 21 100/56 100 Nasal 2.0L Cannula 05/05 0007 98.8 69 18 108/54 100 Nasal 2.0L Cannula 05/04 2254 110/62 05/04 2116 98.6 66 18 110/62 98 Room Air 05/04 2010 97.8 75 18 132/67 97 Room Air 05/04 1701 98.3 72 18 146/63 94 Room Air 05/04 1629 97 Room Air 05/04 1606 98.1 76 18 112/66 97 Room Air Intake & Output 05/05 0800 05/05 0000 05/04 1600 Intake Total 350 Output Total Balance 350 Intake, Blood 350 Product Patient 376 lb 376 lb Weight Weight Reported by Patient Reported by Patient Measurement Method Physical Exam General Appearance Alert, Oriented X3, Cooperative Skin chronic venostasis worse on the right lower extremity HEENT Atraumatic, PERRLA, EOMI, multiple missing teeth, upper left gum necrosis/ infection Neck Supple, no tracheal deviation, tenderness, or lymphadenopathy Cardiovascular Regular Rate, Normal S1, Normal S2 Lungs right lung rhonchi Abdomen Normal Bowel Sounds, Soft, No Tenderness Extremities left foot bunion, bilateral 2+ edema up to the tibia Diagnostic Data CXR Results PORTABLE FINDINGS: The cardiac silhouette is prominent, but stable. Pacer leads overlie the right atrium and right ventricle. There is mild interstitial prominence present throughout both lungs. There are neither pleural effusions nor pneumothoraces. There are no consolidations. The osseous structures are stable. IMPRESSION: Mild interstitial prominence. Stable cardiomegaly. Assessment/Plan Assessment: Patient is a 62-year-old male with past history of diabetes, CHF, hyperlipidemia , cardiomyopathy, chronic venous insufficiency, COPD, sleep apnea, and multiple bronchitis and pneumonia episodes presenting with shortness of breath and weakness for 1 week in the setting of black colored stools for 4-5 days and chronic use of naproxen for his mouth pain. His H&H was found to be 5.6 and 18.3 respectively. His symptoms are most likely anemia secondary to GI blood loss as result of naproxen use. The patient will be admitted to tele. As Ranked By This Provider Problem List: 1. Anemia Assessment/Plan The patient is presenting with shortness of breath and weakness for 1 week in the setting of black colored stools for 4-5 days and chronic use of naproxen for his mouth pain. His H&H was found to be 5.6 and 18.3 respectively. His symptoms are most likely anemia secondary to GI blood loss as result of naproxen use. The patient will be admitted to tele. We will keep him nothing by mouth after midnight. Start IV Protonix 40 mg twice a day. He also received 2 units of packed red blood cells. We will trend his troponins and serial EKGs since his anemia is a risk factor for ischemia of his heart. We'll check ferritin, iron, TIBC, and reticulocyte counts. We will palce a GI consult in the AM. -Nothing by mouth after midnight -IV Protonix 40 mg twice a day -Follow-up serial EKG and troponins -2 wide bore peripheral lines -GI consult in a.m., GI stat if needed 2. COPD (chronic obstructive pulmonary disease) Assessment/Plan The patient states he has a history of COPD. He states that his shortness of breath has been getting worse the past week and that he has worsening of his chronic cough and bringing up more yellow sputum. We will treat him with nebulizers as needed. We will continue his hydroxyzine for mucus. -Nebulizers as needed -Hydroxyzine 100 mg by mouth twice a day 3. CHF (congestive heart failure) Assessment/Plan The patient has a history of CHF. We'll continue Lasix tomorrow -Continue Lasix in a.m. 4. Diabetes Assessment/Plan The patient has a history of diabetes. We'll hold all his home medications and start on NovoLog sliding scale. -Begin NovoLog sliding scale 5. Cardiomyopathy Assessment/Plan The patient reports a history of cardiomyopathy. We will continue his Lipitor, lisinopril, furosemide, albuterol. -Atorvastatin 10 mg by mouth daily -Lisinopril 10 mg by mouth daily -Furosemide 40 mg by mouth twice a day 6. DVT prophylaxis Assessment/Plan Mechanical 7. Full code status Assessment/Plan Full code Core Measures/Miscellaneous Acute Coronary Syndrome ACS Diagnosis: No Cerebrovascular Accident CVA/TIA Diagnosis: No Congestive Heart Failure CHF Diagnosis: No VTE (View Protocol) VTE Risk Factors: Acute medical illness, Age > 40 No [facility] VTE prophylaxis d/t: No contraindications No VTE Pharm Prophylaxis d/t: Active bleeding VTE Diagnosis: No VTE Type: NONE VTE Confirmed by (Test): NONE Sepsis (View Protocol) Severe Sepsis Present: No Septic Shock Septic Shock Present: No Miscellaneous Documentation Attending Case Discussed With: KAYLAN DE LA TORRE MD Primary Care Physician: UNKNOWN Patient sees these Specialists NA Level of Patient Care: Telemetry ALINA VERMA MD 05/04/17 5465: Resident Review Statement Resident Statement: examined this patient, discussed with application internship, agreed with application internship Other Findings: HPI: Mr Padilla is a 63 gentleman with past medical history of COPD, CHF who presented to the emergency department on 05/04/2017 complaining of weakness, dyspnea, shortness of breath and a cough with mild sputum production. Patient states that he has been his normal state of health however over the last one week he has found that he has got increasingly weak and short of breath. He also endorses multiple black tarry stools over the last week. States he had 4 bowel movements of black tarry stool, this was five days ago. He denies any hematochezia however. He saw his PCP early on in the evening prior to coming to the emergency department and she subsequently prompted him to come into the emergency department for additional workup. Also endorses a decreased appetite. Patient does state he uses naproxen for arthritis and arthritic pain. R: On review of systems the patient denies any fever he does endorse occasional chills, he denies any palpitations and chest pain knee, headache or lightheadedness. He does endorse occasional chest tightness which he attributes to increased cough. E Temperature 98.1, pulse 76, respirations 18, blood pressure 112/66. Saturating 97% on room air. HEENT: extraocular motion intact, no nystagmus. Nose is atraumatic. External auditory canal and Tympanic membranes clear. Pharynx normal. No swelling or edema. Neck: Supple, no lymphadenopathy, normal range of motion without pain or tenderness Skin:WNL. Cardiovascular: Regular rate and rhythm no murmurs rubs or gallops. Distant heart sounds. Respiratory: Chest nontender. No respiratory distress. Distant breath sounds, Right Lower [place] Rhonchi. Abdomen: Soft, nontender nondistended, no appreciable organomegaly. Normal bowel sounds. No ascites, no rebound or guarding. Obese. Extremity: No edema, no calf tenderness to palpation, normal and equal pulses. No crepitus or fluctuation. Edema bilaterral 2+. Chronic Venous Stasis Right Lower Extremity. Neuro:AOX 3. CN 2 - 12 intact. L: Labs were white cell count 8.7, H&H of 5.6 and 19.3, platelets 340, sodium 141, potassium 4.2, BUN/creatinine 28 and 1.5. I: IMPRESSION: Mild interstitial prominence. Stable cardiomegaly. A/P This is a [id number] Mongolian with extensive past medical history was presented to the emergency department on the evening of 05/04/2017 complaining of weakness, dyspnea, shortness of breath and mild sputum production. His weakness is likely due to symptomatic anemia. This anemia is likely due to acute blood loss anemia from use of naproxen. 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 Will transfuse the patient 2 units of PRBCs. Monitor for any signs of hemodynamic instability. 2 large-bore IVs at all times. Goal hemoglobin greater than 8 We will obtain a GI consult in the a.m. Patient will likely be eligible for scope and the next 24-48 hours., to look for any visible vessels. IV Protonix 40 mg twice a day. Keep nothing by mouth after midnight. History of CHF continue Lasix, continue lisinopril, consider cardilogy consultation in am. Monitor ins and Outs. Due to significant low H&H we will trend troponins and EKGs. Diet clear liquids for now subsequently nothing by mouth overnight. Code: Full code KAYLAN ED LA TORRE 05/05/17 0635: Attending MD Review Statement Attending Statement Attending MD Statement: examined this patient, discuss w/resident/PA/BAND TEACHER, agreed w/resident/PA/BAND TEACHER, reviewed EMR data (avail), reviewed images, amended to note Attending Assessment/Plan: CC: Worsening fatigue, dyspnea on exertion PMH: DM, JORY, PAD, cardiomyopathy with 20% ejection fraction S/P AICD biventricular pacer, COPD, CKD Patient came to ER for worsening dyspnea on exertion, fatigue since last 1 week, patient has chronic cough which has worsened recently with mild yellow color sputum production, has substernal chest pain nonradiating, nonpleuritic. Patient endorses having black colored stool for couple of days 4-5 days ago but no bright red blood, denies any vomiting endorses some nausea no fever, chills, lightheadedness, dizziness, passing out episodes, urinary symptoms. Patient uses naproxen as and when required for chronic pain. Vitals: Afebrile, HR and 70s, RR 18, blood pressure 112/66, saturating well on room air. On exam: A O 3, morbidly obese cooperative, no acute distress, neck supple, JVD normal, no lymphadenopathy, mucosa moist, no focal neurological deficit, bilateral pedal pitting edema, bilateral lower extremity stasis dermatitis changes without any signs of secondary infection CVS: S1-S2, RRR. RS: Clear to auscultate bilaterally. Abdomen: Soft, NT, obese, bowel sounds present. Labs: WBC 8.7, hemoglobin 5.6, hematocrit 18.3, platelets 340, MCV 69, RDW 18.9, creatinine 1.5 which is his baseline otherwise BMP, LFT unremarkable, troponin 0.02 CXR: Mild interstitial prominence. Stable cardiomegaly. A and P 62-year-old male with extensive past medical history presented in ER with the shortness of breath mostly dyspnea on exertion with increasing fatigue since last 1 week and black colored stools 4-5 days back, hemodynamically stable, on examination he has bilateral pitting edema which appears to be chronic with chronic venous stasis changes in no acute abdomen, rectal examination positive for guaiac but no bright red blood. Hemoglobin and hematocrit is markedly decreased as compared to labs in December, patient is not on any anticoagulation but uses NSAIDs as and when required his chronic blood loss anemia may be contributing his dyspnea has exertion does not appear to be in acute heart failure. Given his extensive cardiac history, low H&H, he would benefit from telemetry observation in anticipation of any demand ischemia. + Chronic blood loss anemia + Suspected GI bleed + History of DM, JORY, PAD, cardiomyopathy with 20% ejection fraction S/P AICD biventricular pacer, COPD, CKD - Admit to telemetry - Nothing by mouth after midnight - IV Protonix 40 mg twice a day -Transfuse 2 units PRBC - Trend serial EKG and troponin - GI consult in a.m. - 2 wide bore peripheral lines - Continue his home medications from morning, hold diuretics and antihypertensives - Continue when necessary nebulization with albuterol and ipratropium - Check ferritin, iron, TIBC, reticulocyte count - Aspart DVT prophylaxis - Adequate pain control
--- NOTE | 2017-05-04 21:28 | NUR ---
LEUKOCYTE POOR INITIATED. WILL CONTINUE TO MONITOR.
--- NOTE | 2017-05-04 21:41 | NUR ---
THIS RN ATTEMPTED TWICE FOR A SECOND IV SITE WITH NEGATIVE RESULTS.
--- NOTE | 2017-05-04 22:00 | NUR ---
THIS RN AT BEDSIDE FOR IV ESTABLISHMENT. PT STATES "I DON'T WANT THE IV THERE BECAUSE I WON'T BE ABLE TO WIPE MY BUTT" PT INFORMED THAT STAFF IS AVAILABLE TO ASSIST WITH SUCH ENTITITES. PT CONTINUES TO STATE "NO, DO NOT PUT THE IV THERE" THIS RN UNABLE TO ESTABLISH IV AT A DIFFERENT SITE AT THIS TIME.
--- NOTE | 2017-05-04 22:04 | NUR ---
LEUKOCYTE POOR CONTINUES TO INFUSE. PT TOLERATING WELL. PATRICIA BRUCE AT BEDSIDE FOR EKG.
--- NOTE | 2017-05-04 22:30 | NUR ---
HOUSESTAFF PAGED REGARDING PT'S COMPLAINTS OF LLE PAIN. AWAITING RETURN CALL. THIS RN AT BEDSIDE FOR IV ESTABLISHMENT. THIS RN IS INSERTING IV PT STATES HE DOES NOT LIKE LOCATION OF IV AND REQUESTS FOR IT TO BE TAKEN OUT. IV REMOVED PER PT REQUEST.
--- NOTE | 2017-05-04 23:22 | NUR ---
PT REQUESTING TO BE PLACED ON O2 AT 3.5L/MIN "THAT IS WHAT I WEAR AT NIGHT AND WHEN I NEED IT" O2 SAT 98% ON RA. PT PLACED ON 2L/MIN PER NC FOR COMFORT. O2 SAT 99% ON 2L
--- NOTE | 2017-05-04 23:35 | NUR ---
PT IN RECLINER CHAIR WITH 2 PILLOWS. GIVEN SERBIAN ICE AND GINGERALE. IS AWARE HE IS NPO AFTER MIDNIGHT.
--- NOTE | 2017-05-05 00:19 | NUR ---
PT MEDICATED WITH PERCOCET X1 FOR PAIN "IN MY JOINTS, IN MY LEGS"
--- NOTE | 2017-05-05 02:06 | NUR ---
SECOND UNIT PRBC'S INFUSING. PT TOLERATING WELL
--- NOTE | 2017-05-05 03:00 | NUR ---
PT'S RM ASSIGNMENT 177 BED 1
--- NOTE | 2017-05-05 03:21 | NUR ---
REPORT GIVEN TO RICH GA
[2017-05-05 04:09] VITALS: BP 128/98
--- NOTE | 2017-05-05 06:35 | Admission Certification ---
Admission Certification Certification Statement - As attending physician, I certify that at the time of - admission, based on clinical presentation, severity of - symptoms, need for further diagnostic testing and - therapeutic interventions, and risk of adverse outcomes - without in-hospital treatment, in my clinical assessment, - this patient requires an acute hospital stay for a minimum - of two nights or longer. I have also considered psychsocial - factors such as support system, advanced age, financial - issues, cognitive issues, and failed out-patient treatments, - past re-admission history, safety of patient, and lack of - compliance as applicable. Specific rationale supporting this admission is: Symptomatic anemia
[2017-05-05 07:07] VITALS: BP 122/76
--- NOTE | 2017-05-05 07:58 | Cons- Gastroenterology ---
General Information and HPI Consulting Request Date of Consult: 05/05/17 Requested By: KAYLAN DE LA TORRE MD Reason for Consult: Melena, anemia. Source of Information: patient, old records Exam Limitations: no limitations History of Present Illness: Mr. Padilla is a 62-year-old male with multiple medical problems including diabetes, CHF, hyperlipidemia, cardiomyopathy, chronic venous insufficiency, COPD, sleep apnea, and peptic ulcer disease who presented to [facility] yesterday with complaints of progressive weakness and dyspnea on exertion. The patient notes that about 1 week ago he had black tarry stool which was foul smelling and this lasted for a few days. He did not notice any bright blood per rectum. The black tarry stool gradually resolved over the course of about a week and he notes that his last bowel movement was yesterday and was essentially normal in color. He reports having hunger pains, but he denies any burning epigastric discomfort or any heartburn. He has had some bilious vomiting over the past week, but no hematemesis. He does report taking Naprosyn on occasion which he notes he does with food in the stomach and it generally does not cause any GI distress when he takes it. In the ER he was hemodynamically stable and was found to have brown guaiac positive stool. His hemoglobin was 5.6 which was down from 11.1 in December of this year. He was admitted to the medical service and started on IV Protonix and transfused with 2 units of packed red blood cells. This morning he notes his weakness has improved. He has not had any melena and he has remained him in the medical stable since admission. Allergies/Medications Allergies: Coded Allergies: NO KNOWN ALLERGIES (02/25/16) Home Med List: Albuterol Sulfate (Proair Hfa) 90 MCG HFA.AER.AD 2 PUF INH Q4-6 PRN PRN COPD (Reported) Atorvastatin Calcium 10 MG TABLET 1 TAB PO DAILY CHOLESTEROL (Reported) Carvedilol 12.5 MG TABLET 1 TAB PO BID HEART (Reported) Fluticasone/Salmeterol (Advair 500-50 Diskus) 500 MCG-50 MCG/DOSE BLST.W.DEV 1 PUF INH BID COPD (Reported) Furosemide (Lasix) 40 MG TABLET 1 TAB PO BID DIURETIC (Reported) Glimepiride 1 MG TABLET 1 TAB PO BID DM (Reported) Hydroxyzine HCl 50 MG TABLET 2 TAB PO BID MUCUS (Reported) Ipratropium/Albuterol Sulfate (Combivent Respimat Inhal [place]) 20 MCG-100 MCG/ ACTUATION MIST.INHAL 2 PUFF INH BID copd (Reported) Lisinopril 10 MG TABLET 1 TAB PO DAILY BP (Reported) Metformin HCl (Glucophage) 1,000 MG TABLET 1 TAB PO BID DM (Reported) Montelukast Sodium (Singulair) 10 MG TABLET 1 TAB PO DAILY RESPIRATORY ( Reported) Naproxen Sodium (Aleve) 220 MG CAPSULE 6 TAB PO BID PAIN (Reported) Oxycodone HCl/Acetaminophen (Percocet 10-325 MG Tablet) 10 MG-325 MG TABLET 1 TAB PO 4 TIMES/DAY PRN PAIN (Reported) Potassium Chloride (Klor-Con M20) 20 MEQ TAB.ER.PRT 1 TAB PO DAILY SUPPLEMENT (Reported) Umeclidinium [place] (Incruse Ellipta) 62.5 MCG/ACTUATION BLST.W.DEV 1 PUFF INH DAILY COPD (Reported) Current Medications: Current Medications Sig/Keaton Start time Last Medication Dose Route Stop Time Status Admin Atorvastatin Calcium 10 MG 1700 05/05 1700 AC PO Carvedilol 12.5 MG BID 05/04 2200 AC PO Furosemide 40 MG BID 05/05 1000 AC PO Hydroxyzine HCl 100 MG BID 05/04 2200 AC 05/04 PO 2254 Hydroxyzine HCl 0 .STK-MED ONE 05/04 2200 DC PO Lisinopril 10 MG DAILY 05/05 1000 AC PO Oxycodone/ 0 .STK-MED ONE 05/05 0023 DC Acetaminophen PO Oxycodone/ 1 TAB Q6P PRN 05/04 2045 AC 05/05 Acetaminophen PO 0458 Pantoprazole Sodium 40 MG BID 05/04 2200 AC 05/04 IV 2321 Pantoprazole Sodium 0 .STK-MED ONE 05/04 2200 DC IV Pantoprazole Sodium 40 MG DAILY 05/04 2130 DC IV Past History Travel History Traveled to [place] past 21 day No Medical History Blood Transfusion Hx: Yes Neurological: NONE EENT: NONE Cardiovascular: cardiomyopathy, CHF, chronic venous insuff, hyperlipidemia Respiratory: COPD, SLEEP APNEA Gastrointestinal: peptic ulcer disease, EGD 08/10 showed numerous gastric and duodenal ulcers Hepatic: NONE Renal: benign prost hyperplasia, TEMPORORY DIALYSIS Musculoskeletal: NONE Psychiatric: NONE Endocrine: diabetes Blood Disorders: NONE Cancer(s): NONE 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 Relation not specified for: *No pertinent family history Psychosocial History Where Do You Live? Home Who Do You Live With? self Services at Home: Oxygen Primary Language: Ghanaian Smoking Status: Unknown If Ever Smoked Functional Ability ADLs Independent: dressing, eating, toileting, bathing. Ambulation: independent IADLs Independent: shopping, housework, finances, food prep, telephone, transportation , medication admin. Review of Systems Review of Systems Constitutional: Reports: malaise, weakness. Denies: diaphoresis, fever. EENTM: Denies: no symptoms. Cardiovascular: Reports: edema, orthopena. Denies: chest pain, palpitations. Respiratory: Reports: cough, orthopnea, short of breath. Denies: hemoptysis. GI: Reports: see HPI. Genitourinary: Denies: no symptoms. Musculoskeletal: Reports: joint pain, muscle pain. Skin: Reports: dryness, erythema. Neurological/Psychological: Denies: no symptoms. Hematologic/Endocrine: Reports: bleeding. Immunologic/Allergic: Denies: no symptoms. All Other Systems: Reviewed and Negative Exam & Diagnostic Data Vital Signs and I&O Vital Signs Date Time Temp Pulse Resp B/P B/P Pulse O2 O2 Flow FiO2 Mean Ox Delivery Rate 05/05 0707 98.1 70 20 122/76 100 Nasal 3.5L Cannula 05/05 0409 97.7 83 18 128/98 100 Nasal 3.5L Cannula 05/05 0405 98 Nasal 3.5L Cannula 05/05 0320 97.0 62 16 108/56 100 Nasal 2.0L Cannula 05/05 0200 97.2 61 16 104/55 100 Nasal 2.0L Cannula 05/05 0100 97.2 58 21 100/56 100 Nasal 2.0L Cannula 05/05 0007 98.8 69 18 108/54 100 Nasal 2.0L Cannula 05/04 2254 110/62 05/046 98.6 66 18 110/62 98 Room Air 05/04 2010 97.8 75 18 132/67 97 Room Air 05/04 1701 98.3 72 18 146/63 94 Room Air 05/04 1629 97 Room Air 05/04 1606 98.1 76 18 112/66 97 Room Air Intake & Output 05/05 0400 05/03 0400 Intake Total 350 Output Total Balance 350 Intake, Blood 350 Product Patient 376 lb 376 lb Weight Weight Reported by Patient Reported by Patient Measurement Method Physical Exam General Appearance: well developed/nourished, no apparent distress, comfortable, obese Head: atraumatic, normal appearance Eyes: Bilateral: normal appearance. Ears, Nose, Throat: normal pharynx, normal ENT inspection Neck: normal inspection, supple, full range of motion Respiratory: normal breath sounds, chest non-tender, no respiratory distress, decreased breath sounds Cardiovascular: regular rate/rhythm Gastrointestinal: normal bowel sounds, soft, non-tender, no organomegaly Rectal: deferred, brown guaiac positive stool per EGD. Back: normal inspection, normal range of motion Extremities: pedal edema Neurologic/Psych: no motor/sensory deficits, awake, alert, oriented x 3 Skin: lower extremities swollen and edematous with some skin breakdown Results Pertinent Lab Results: Laboratory Tests 05/05 05/04 05/04 0620 2219 1646 Chemistry Sodium (137 - 145 mmol/L) Pending 141 Potassium (3.5 - 5.1 mmol/L) Pending 4.2 Chloride (98 - 107 mmol/L) Pending 103 Carbon Dioxide (22 - 30 mmol/L) Pending 29 Anion Gap (5 - 16) Pending 10 BUN (9 - 20 mg/dL) Pending 28 H Creatinine (0.7 - 1.2 mg/dL) Pending 1.5 H Estimated GFR (>60 ml/min) 48 L BUN/Creatinine Ratio (7 - 25 %) Pending 18.7 Glucose (65 - 99 mg/dL) 71 Calcium (8.4 - 10.2 mg/dL) 9.2 Iron (49 - 181 ug/dL) 18 L TIBC (261 - 462 ug/dL) 395 Ferritin (17.9 - 464 ng/mL) 8.4 L Total Bilirubin (0.2 - 1.3 mg/dL) 0.7 AST (17 - 59 U/L) 11 L ALT (21 - 72 U/L) 15 L Alkaline Phosphatase (< 127 U/L) 80 Troponin I (<0.11 ng/ml) 0.03 0.02 Total Protein (6.3 - 8.2 g/dL) 6.3 Albumin (3.5 - 5.0 g/dL) 3.3 L Globulin (1.9 - 4.2 gm/dL) 3.0 Albumin/Globulin Ratio (1.1 - 2.2 %) 1.1 Hematology CBC w Diff Pending NO MAN DIFF REQ WBC (4.8 - 10.8 /CUMM) Pending 8.7 RBC (4.70 - 6.10 /CUMM) Pending 2.63 L Hgb (14.0 - 18.0 G/DL) Pending 5.6 *L Hct (42 - 52 %) Pending 18.3 *L MCV (80.0 - 94.0 FL) Pending 69.6 L MCH (27.0 - 31.0 PG) Pending 21.4 L RDW (11.5 - 14.5 %) Pending 18.9 H Plt Count (130 - 400 /CUMM) Pending 340 MPV (7.4 - 10.4 FL) Pending 6.5 L Gran % (42.2 - 75.2 %) 65.0 Lymphocytes % (20.5 - 51.1 %) 23.7 Monocytes % (1.7 - 9.3 %) 9.0 Eosinophils % (0 - 5 %) 2.1 Basophils % (0.0 - 2.0 %) 0.2 Absolute Granulocytes (1.4 - 6.5 /CUMM) 5.6 Absolute Lymphocytes (1.2 - 3.4 /CUMM) 2.1 Absolute Monocytes (0.10 - 0.60 /CUMM) 0.8 H Absolute Eosinophils (0.0 - 0.7 /CUMM) 0.2 Absolute Basophils (0.0 - 0.2 /CUMM) 0 PUBS MCHC (33.0 - 37.0 G/DL) Pending 30.7 L Assessment/Plan Assessment/Recommendations: Assessment: Mr. Padilla is a 62-year-old male with multiple medical problems including a history of peptic ulcer disease in late July of last year who presents with reports of melena and a fall in his hemoglobin of approximately 6 g since December which is likely secondary to a bleeding ulcer from NSAID use. As he notes that his melena has resolved, and as he has been hemodynamically stable without a significantly elevated BUN to creatinine ratio I suspect his bleeding has stopped, but would still be useful to repeat an upper endoscopy in an effort to identify the bleeding site and treat any high risk lesions such as a visible vessel. Recommendations: 1. Keep nothing by mouth for now. 2. Continue IV Protonix 40 mg twice a day. 3. Hold all NSAIDs. 4. Follow up CBCs and transfuse as needed to keep his hemoglobin greater than 8 or as per cardiology recommendations. 5. Notify GI for any signs of overt GI bleeding. 6. Maintain 2 large-bore IVs at all times. 7. Will arrange for a diagnostic/therapeutic upper endoscopy for later today in an effort to identify the bleeding site and treat any high risk lesions to be done by myself or Dr. Falcon. I (or Dr. Falcon) will continue to follow this patient and make further recommendations based on his clinical course and results of the endoscopy to be performed later today. Consult Acknowledgment - Thank you for your consult request.
--- NOTE | 2017-05-05 08:27 | PN- Student ---
Subjective Subjective: Follow-up for: Weakness/SOB for 7 days, black tarry stools for 5 days Complaints: Patient is tired, but feeling better from yesterday and less sick. Tele-Events Since Last Visit: Sinus sommer rhythm Subjective: Patient was seen and examined this morning. He is awake and oriented to time place and person. No acute events overnight. Patient reports feeling tired but is less sick today. Minor SOB when ambulating to use the restroom. He was coughing last night with yellow sputum production, but has not been coughing this morning. He denies any pain. Denies chest pain, abdominal pain, nausea, vomitting. No changes in urination frequency. He has been having bowel movements that are cain in color and normal in consistency. Vitals Stable. Afebrile, 98.1. HR: 70 RR: 20 BP: 122/76 Sat: 100 Objective Objective: Vital Signs Date Time Temp Pulse Resp B/P B/P Pulse O2 O2 Flow FiO2 Mean Ox Delivery Rate 05/05 0707 98.1 70 20 122/76 100 Nasal 3.5L Cannula 05/05 0409 97.7 83 18 128/98 100 Nasal 3.5L Cannula 05/05 0405 98 Nasal 3.5L Cannula 05/05 0320 97.0 62 16 108/56 100 Nasal 2.0L Cannula 05/05 0200 97.2 61 16 104/55 100 Nasal 2.0L Cannula 05/05 0100 97.2 58 21 100/56 100 Nasal 2.0L Cannula 05/05 0007 98.8 69 18 108/54 100 Nasal 2.0L Cannula 05/04 2254 110/62 05/04 2116 98.6 66 18 110/62 98 Room Air 05/04 2010 97.8 75 18 132/67 97 Room Air 05/04 1701 98.3 72 18 146/63 94 Room Air 05/04 1629 97 Room Air 05/04 1606 98.1 76 18 112/66 97 Room Air Intake & Output 05/05 1600 05/05 0800 05/05 0000 Intake Total 350 Output Total Balance 350 Intake, Blood 350 Product Patient 376 lb 376 lb Weight Weight Reported by Patient Reported by Patient Measurement Method General Appearance: Alert, Oriented X3, Cooperative, No Acute Distress Skin: No Rashes, No Breakdown HEENT: Atraumatic, PERRLA, EOMI, Mucous Membr. moist/pink Neck: Supple, No JVD, No thryomegaly Lymphatic: Cervical nl Cardiovascular: Normal S1, Normal S2, No Murmurs Lungs: Normal Air Movement, scattered rhonchi Abdomen: Normal Bowel Sounds, Soft, No Tenderness Extremities: 2+ edema up to the tibia. Venous stasis ulcers b/l. Current Medications: Current Medications Sig/Keaton Start time Last Medication Dose Route Stop Time Status Admin Atorvastatin Calcium 10 MG 1700 05/05 170 AC PO Carvedilol 12.5 MG BID 05/04 2200 AC PO Furosemide 40 MG BID 05/05 1000 AC PO Hydroxyzine HCl 100 MG BID 05/04 2200 AC 05/04 PO 2254 Hydroxyzine HCl 0 .STK-MED ONE 05/04 2200 DC PO Lisinopril 10 MG DAILY 05/05 1000 CAN PO Oxycodone/ 0 .STK-MED ONE 05/05 0023 DC Acetaminophen PO Oxycodone/ 1 TAB Q6P PRN 05/04 2045 AC 05/05 Acetaminophen PO 0458 Pantoprazole Sodium 40 MG BID 05/04 2200 AC 05/04 IV 2321 Pantoprazole Sodium 0 .STK-MED ONE 05/04 2200 DC IV Pantoprazole Sodium 40 MG DAILY 05/04 213 DC IV Results Results: Laboratory Tests 05/05/17 0620: Sodium Pending, Potassium Pending, Chloride Pending, Carbon Dioxide Pending, Anion Gap Pending, BUN Pending, Creatinine Pending, BUN/Creatinine Ratio Pending , CBC w Diff Pending, WBC Pending, RBC Pending, Hgb Pending, Hct Pending, MCV Pending, MCH Pending, RDW Pending, Plt Count Pending, MPV Pending, PUBS MCHC Pending 05/04/17 2219: Troponin I 0.03 05/04/17 1646: Anion Gap 10, Estimated GFR 48 L, BUN/Creatinine Ratio 18.7, Glucose 71, Calcium 9.2, Iron 18 L, TIBC 395, Ferritin 8.4 L, Total Bilirubin 0.7, AST 11 L, ALT 15 L, Alkaline Phosphatase 80, Troponin I 0.02, Total Protein 6.3, Albumin 3.3 L, Globulin 3.0, Albumin/Globulin Ratio 1.1, CBC w Diff NO MAN DIFF REQ, RBC 2.63 L, MCV 69.6 L, MCH 21.4 L, RDW 18.9 H, MPV 6.5 L, Gran % 65.0 , Lymphocytes % 23.7, Monocytes % 9.0, Eosinophils % 2.1, Basophils % 0.2, Absolute Granulocytes 5.6, Absolute Lymphocytes 2.1, Absolute Monocytes 0.8 H, Absolute Eosinophils 0.2, Absolute Basophils 0, PUBS MCHC 30.7 L Assessment/Plan Assessment: Patient is a 62 year old male with PMH of DM, CHF, cardiomyopathy, chronic venous insufficiency, COPD, sleep apnea, and peptic ulcer disease who presents with a 1 week history of SOB/weakness as well as tarry stools for 4-5 days. Vitals signs: Temp: 98.1, HR: 70, RR: 20, BP: 122/76, O2: 100% on nasal cannula Exams Problem list: 1. 1 week of SOB with 4-5 days of melena 2. CHF 3. COPD 4. Diabetes 5. Cardiomyopathy 6. Venous stasis ulcer 1. Upper GI bleeding due to peptic ulcer disease. Patient's SOB and weakness was likely due to an upper GI bleed, as evidenced by the melena and drop in H/H. Likely secondary to chronic use of naproxen for mouth pain. Patient has improved with transfusion of 2 packed RBCs, and is hemodynamically stable without a significantly elevated BUN: Creatinine. He is scheduled today for an upper endoscopy to try to identify the bleeding site or possible complications. -keep NPO -hold all NSAIDs -continue IV protonix 40 mg BID -follow CBCs, transfuse to keep hemoglobin >8 per cardiology recommendations -maintain 2 large bore IVs at all time -scheduled for a diagnostic/therapeutic upper endoscopy with Dr. Falcon in an effort to identify the bleeding site and treat and high risk lesions 2. CHF -Continue lasix, continue lisinopril. -trend troponins and EKGs due to anemia risk 3. COPD -Nebulizer as needed -hydroxyzine 100 mg PO BID Differential with plan 4. Diabetes -Start on NovoLog sliding Scale 5. Cardiomyopathy -conitnue lipitor, lisinopril, furosemide, albuterol 6. Venous stasis ulcer -DVT prophylaxis, mechanical
[2017-05-05 08:32] LABS: ABSOLUTE BASOPHIL COUNT 0 /CUMM (0.0-0.2); ABSOLUTE EOSINOPHIL COUNT 0.2 /CUMM (0.0-0.7); ABSOLUTE LYMPH COUNT 2.1 /CUMM (1.2-3.4); ABSOLUTE MONOCYTE COUNT 0.7 /CUMM (0.10-0.60); HEMATOCRIT 21.2 % (42-52)
[2017-05-05 08:38] LABS: ABSOLUTE GRANULOCYTE CT 4.4 /CUMM (1.4-6.5); BASOPHIL % 0.5 % (0.0-2.0); EOSINOPHIL % 2.4 % (0-5); GRANULOCYTE % 59.8 % (42.2-75.2); MEAN CORPUSCULAR HGB 22.1 PG (27.0-31.0); MEAN CORPUSCULAR HGB CONC 30.8 G/DL (33.0-37.0); PLATELET COUNT 283 /CUMM (130-400); RBC DISTRIBUTION WIDTH 19.4 % (11.5-14.5); RED BLOOD CELL CT 2.95 /CUMM (4.70-6.10); WHITE BLOOD CELL COUNT 7.3 /CUMM (4.8-10.8)
--- NOTE | 2017-05-05 09:20 | PN- Housestaff ---
PADMINI VERNON 05/05/17 0920: Subjective Follow-up For: Upper GI bleed Anemia CHF Cardiomyopathy Complaints: pain scale (0-10) Tele-Events Since Last Visit: Sinus rhythm No overnight events Subjective: Patient was seen and examined this morning. He is alert awake and oriented to time place and person No acute events happened overnight. patient continues to report dyspnea on exertion. Continues to report generalized weakness and fatigue Reports on and off cough. Denies any chest pain, diaphoresis, dizzy or lightheadedness. denies any syncopal events. Denies any fever, chills. Vitals remained stable afebrile, heart rate 70, respiratory 20, blood pressure 130/70, saturating at 95 on 3 L. Review of Systems Constitutional: Reports: see HPI. Objective Last 24 Hrs of Vital Signs/I&O Vital Signs Date Time Temp Pulse Resp B/P B/P Pulse O2 O2 Flow FiO2 Mean Ox Delivery Rate 05/05 1510 98.2 68 20 118/70 95 Room Air 05/05 1003 128/70 05/05 0837 100 Nasal 3.5L Cannula 05/05 0707 98.1 70 20 122/76 100 Nasal 3.5L Cannula 05/05 0409 97.7 83 18 128/98 100 Nasal 3.5L Cannula 05/05 0405 98 Nasal 3.5L Cannula 05/05 0320 97.0 62 16 108/56 100 Nasal 2.0L Cannula 05/05 0200 97.2 61 16 104/55 100 Nasal 2.0L Cannula 05/05 0100 97.2 58 21 100/56 100 Nasal 2.0L Cannula 05/05 0007 98.8 69 18 108/54 100 Nasal 2.0L Cannula 05/04 2254 110/62 05/04 2116 98.6 66 18 110/62 98 Room Air 05/04 2010 97.8 75 18 132/67 97 Room Air 05/04 1701 98.3 72 18 146/63 94 Room Air 05/04 1629 97 Room Air 05/04 1606 98.1 76 18 112/66 97 Room Air Intake & Output 05/05 1600 05/05 0800 05/05 0000 Intake Total 725 Output Total Balance 725 Intake, Blood 350 Product Intake, IV 375 Intake, Oral 0 Patient 170.551 kg 170.551 kg Weight Weight Reported by Patient Reported by Patient Measurement Method Physical Exam General Appearance: Alert, Oriented X3, Cooperative, No Acute Distress Skin: No Rashes, No Breakdown, No Significant Lesion HEENT: Atraumatic, PERRLA, EOMI, Mucous Membr. moist/pink Neck: Supple, No JVD Lymphatic: Axillary nl, Cervical nl Cardiovascular: Normal S1, Normal S2 Lungs: Normal Air Movement Abdomen: Normal Bowel Sounds, Soft, No Tenderness Neurological: Normal Speech, Strength at 5/5 X4 Ext, Normal Tone, Sensation Intact, Cranial Nerves 3-12 NL Extremities: No Clubbing, No Cyanosis, No Edema Vascular: Pulses Symmetrical Current Medications: Current Medications Sig/Keaton Start time Last Medication Dose Route Stop Time Status Admin Albuterol Sulfate 2 PUF Q4-6 PRN PRN 05/05 1515 UNVr INH Atorvastatin Calcium 10 MG 1700 05/05 1700 AC PO Budesonide/ 2 PUF BID 05/05 2200 UNVr Formoterol Fumarate INH Carvedilol 12.5 MG BID 05/04 220 AC 05/05 PO 1003 Furosemide 40 MG BID 05/05 1000 DC 05/05 PO 1003 Hydroxyzine HCl 100 MG BID 05/04 220 AC 05/05 PO 1003 Hydroxyzine HCl 0 .STK-MED ONE 05/04 220 DC PO Insulin Aspart 0 TIDAC 05/05 1700 UNVr SC Ipratropium [place] 2.5 ML DAILY 05/06 1000 UNVr INH Lisinopril 10 MG DAILY 05/05 1508 UNVr PO Lisinopril 10 MG DAILY 05/05 1000 CAN PO Montelukast Sodium 10 MG DAILY 05/06 1000 UNVr PO Oxycodone/ 0 .STK-MED ONE 05/05 0023 DC Acetaminophen PO Oxycodone/ 1 TAB Q6P PRN 05/04 2045 AC 05/05 Acetaminophen PO 1107 Pantoprazole Sodium 40 MG BID 05/04 2200 AC 05/05 IV 1004 Pantoprazole Sodium 0 .STK-MED ONE 05/04 2200 DC IV Pantoprazole Sodium 40 MG DAILY 05/04 213 DC IV Patient Medication 1 ED .STK-MED ONE 05/05 1407 DC Teaching ED 05/05 1408 Last 24 Hrs of Lab/Joaquim Results Last 24 Hrs of Labs/Mics: Laboratory Tests 05/05/17 0620: Anion Gap 10, Estimated GFR 52 L, BUN/Creatinine Ratio 17.9, CBC w Diff NO MAN DIFF REQ, RBC 2.95 L, MCV 72.0 L, MCH 22.1 L, RDW 19.4 H, MPV 7.0 L, Gran % 59.8, Lymphocytes % 28.4, Monocytes % 8.9, Eosinophils % 2.4, Basophils % 0.5, Absolute Granulocytes 4.4, Absolute Lymphocytes 2.1, Absolute Monocytes 0.7 H, Absolute Eosinophils 0.2, Absolute Basophils 0, PUBS MCHC 30.8 L 05/04/17 2219: Troponin I 0.03 05/04/17 1646: Anion Gap 10, Estimated GFR 48 L, BUN/Creatinine Ratio 18.7, Glucose 71, Calcium 9.2, Iron 18 L, TIBC 395, Ferritin 8.4 L, Total Bilirubin 0.7, AST 11 L, ALT 15 L, Alkaline Phosphatase 80, Troponin I 0.02, Total Protein 6.3, Albumin 3.3 L, Globulin 3.0, Albumin/Globulin Ratio 1.1, CBC w Diff NO MAN DIFF REQ, RBC 2.63 L, MCV 69.6 L, MCH 21.4 L, RDW 18.9 H, MPV 6.5 L, Gran % 65.0 , Lymphocytes % 23.7, Monocytes % 9.0, Eosinophils % 2.1, Basophils % 0.2, Absolute Granulocytes 5.6, Absolute Lymphocytes 2.1, Absolute Monocytes 0.8 H, Absolute Eosinophils 0.2, Absolute Basophils 0, PUBS MCHC 30.7 L Assessment/Plan Assessment: Patient is a 62-year-old male with past history of hypertension, diabetes, CHF with ejection fraction 20% status post AICD and biventricular pacemaker placement, hyperlipidemia, cardiomyopathy, chronic venous insufficiency, COPD, sleep apnea, chronic pain on naproxen, chronic venous insufficiency, chronic kidney disease, peripheral artery disease presenting with fatigue, dyspnea on exertion and weakness for 1 week in the setting of black colored stools for 4-5 days and chronic use of naproxen for his chronic pain. Vitals on admission 98.1, pulse 76, respirations 18, blood pressure 112/66. Saturating 97% on room air. Labs were white cell count 8.7, H&H of 5.6 and 19.3, platelets 340, sodium 141, potassium 4.2, BUN/creatinine 28 and 1.5. LFTs normal Troponin normal cxr- Mild interstitial prominence. Stable cardiomegaly. Problem list 1. Anemia/upper GI bleed with melena 2. Obstructive sleep apnea 3. COPD not on home oxygen 4. Hyperlipidemia 5. Cardiomyopathy 6. Congestive heart failure with reduced ejection fraction 7. Diabetes mellitus 8. Hypertension 9. Chronic pain 1. Anemia The patient is presenting with shortness of breath and weakness for 1 week in the setting of black colored stools for 4-5 days and chronic use of naproxen for his mouth pain. His H&H was found to be 5.6 and 18.3 respectively. His symptoms are most likely anemia secondary to GI blood loss as result of naproxen use. * admitted to [facility] for continuous monitoring. * vitals closely every shift * We will keep him nothing by mouth after midnight. * continew IV Protonix 40 mg twice a day. * He also received 2 units of packed red blood cells -hemoglobin improved to 6.8 . * Plan for 1 more blood transfusion, recheck H&H * Goal hemoglobin greater than 8 * trended his troponins and serial EKGs * checked ferritin, iron, TIBC, and reticulocyte counts. * Gastro was consulted * Planning for upper GI endoscopy tomorrow once his hemoglobin is above 8 * Avoid NSAID * Notify GI if signs of overt bleeding/hemodynamically unstable 2. COPD (chronic obstructive pulmonary disease) The patient states he has a history of COPD. He states that his shortness of breath has been getting worse the past week and that he has worsening of his chronic cough and bringing up more yellow sputum. * nebulizers as needed. * Total respiratory care * Albuterol * Fluticasone * Ipratropium * The total respiratory care * Follow-up sputum cultures * Hydroxyzine 100 mg by mouth twice a day 3. CHF (congestive heart failure) The patient has a history of CHF. Last echocardiogram showed ejection fraction 20% status post AICD and biventricular pacemaker placement * Please hold home dose of Lasix 40 mg twice a day * Continue carvedilol 12.5 mg twice a day 4. Diabetes The patient has a history of diabetes. We'll hold all his home medications and start on NovoLog sliding scale. * Begin NovoLog sliding scale 5. Cardiomyopathy The patient reports a history of cardiomyopathy. We will continue his Lipitor, lisinopril, furosemide -Atorvastatin 10 mg by mouth daily -Lisinopril 10 mg by mouth daily -Furosemide 40 mg by mouth twice a day 6. Obstructive sleep apnea Not on CPAP 7. hyperlipidemia Continue Lipitor 10 mg daily Patient is full code DVT prophylaxis-alps Pain pathway Regular diet for now nothing by mouth tonight for possible endoscopy in the morning 8. Hypertension Continue home medications lisinopril 10 mg daily Problem List: 1. Anemia Pain Ratin Pain Location: n/a Pain Goal: Remain pain free Pain Plan: shahnazinol Tomorrow's Labs & Rationales: cbc in the setting of anemia and GI bleeding TEE PEACE 05/05/17 0922: Attending MD Review Statement Attending Statement Attending MD Statement: examined this patient, discuss w/resident/PA/CUTTER FINISHER, agreed w/resident/PA/CUTTER FINISHER, discussed with family, reviewed EMR data (avail), discussed with nursing, discussed with case mgmt, reviewed images, amended to note Attending Assessment/Plan: ASSESSMENT 1. Acute on Chronic blood loss anemia 2. Suspected Upper GI bleed 3. History of DM, JORY, PAD, non ischemic cardiomyopathy with 20% ejection fraction S/P AICD biventricular pacer, COPD, CKD 4. acute kidney injury 2/2 IVVD 5. acute blood loss anemia PLAN - Admit to telemetry, NPO. - IV Protonix 40 mg twice a day - Transfused 2 units PRBC - GI consulted and EGD planned for tomorrow - resume home meds, (hold dureitcs, resume Geo inhibitor) - Continue when necessary nebulization with albuterol and ipratropium - f/u ferritin, iron, TIBC, reticulocyte count - Aspart DVT prophylaxis - Adequate pain control
--- NOTE | 2017-05-05 14:18 | Cons- Cardiology ---
General Information and HPI Consulting Request Date of Consult: 05/05/17 Requested By: KAYLAN DE LA TORRE MD Reason for Consult: Cardiomyopathy History of Present Illness: The patient is a 62-year-old male with history of nonischemic cardiomyopathy, chronic systolic heart failure, implanted defibrillator, COPD, and sleep apnea who was admitted with GI bleed. He complains of shortness of breath and weakness for approximately the past week. He had black tarry stools for 4 days, which began to resolve 3-4 days ago. He notes a chronic cough which is worse recently. No recent chest pain. No diaphoresis. No syncope. No nausea or vomiting. No lightheadedness or dizziness. Allergies/Medications Allergies: Coded Allergies: NO KNOWN ALLERGIES (02/25/16) Home Med List: Albuterol Sulfate (Proair Hfa) 90 MCG HFA.AER.AD 2 PUF INH Q4-6 PRN PRN COPD (Reported) Atorvastatin Calcium 10 MG TABLET 1 TAB PO DAILY CHOLESTEROL (Reported) Carvedilol 12.5 MG TABLET 1 TAB PO BID HEART (Reported) Fluticasone/Salmeterol (Advair 500-50 Diskus) 500 MCG-50 MCG/DOSE BLST.W.DEV 1 PUF INH BID COPD (Reported) Furosemide (Lasix) 40 MG TABLET 1 TAB PO BID DIURETIC (Reported) Glimepiride 1 MG TABLET 1 TAB PO BID DM (Reported) Hydroxyzine HCl 50 MG TABLET 2 TAB PO BID MUCUS (Reported) Ipratropium/Albuterol Sulfate (Combivent Respimat Inhal [place]) 20 MCG-100 MCG/ ACTUATION MIST.INHAL 2 PUFF INH BID copd (Reported) Lisinopril 10 MG TABLET 1 TAB PO DAILY BP (Reported) Metformin HCl (Glucophage) 1,000 MG TABLET 1 TAB PO BID DM (Reported) Montelukast Sodium (Singulair) 10 MG TABLET 1 TAB PO DAILY RESPIRATORY ( Reported) Naproxen Sodium (Aleve) 220 MG CAPSULE 6 TAB PO BID PAIN (Reported) Oxycodone HCl/Acetaminophen (Percocet 10-325 MG Tablet) 10 MG-325 MG TABLET 1 TAB PO 4 TIMES/DAY PRN PAIN (Reported) Potassium Chloride (Klor-Con M20) 20 MEQ TAB.ER.PRT 1 TAB PO DAILY SUPPLEMENT (Reported) Umeclidinium [place] (Incruse Ellipta) 62.5 MCG/ACTUATION BLST.W.DEV 1 PUFF INH DAILY COPD (Reported) Current Medications: Current Medications Sig/Keaton Start time Last Medication Dose Route Stop Time Status Admin Atorvastatin Calcium 10 MG 1700 05/05 1700 AC PO Carvedilol 12.5 MG BID 05/04 2200 AC 05/05 PO 1003 Furosemide 40 MG BID 05/05 1000 DC 05/05 PO 1003 Hydroxyzine HCl 100 MG BID 05/04 2200 AC 05/05 PO 1003 Hydroxyzine HCl 0 .STK-MED ONE 05/04 2200 DC PO Lisinopril 10 MG DAILY 05/05 1000 CAN PO Oxycodone/ 0 .STK-MED ONE 05/05 0023 DC Acetaminophen PO Oxycodone/ 1 TAB Q6P PRN 05/04 204 AC 05/05 Acetaminophen PO 1107 Pantoprazole Sodium 40 MG BID 05/04 2200 AC 05/05 IV 1004 Pantoprazole Sodium 0 .STK-MED ONE 05/04 2200 DC IV Pantoprazole Sodium 40 MG DAILY 05/04 213 DC IV Patient Medication 1 ED .STK-MED ONE 05/05 1407 DC Teaching ED 05/05 1408 Review of Systems Review of Systems: Rash. No tremor. No syncope. No palpitations. No nausea or vomiting. All other systems were reviewed, and were noted to be negative. 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 Home Who Do You Live With? self Services at Home: Oxygen Primary Language: Lebanese Smoking Status: Unknown If Ever Smoked Functional Ability ADLs Independent: dressing, eating, toileting, bathing. Ambulation: independent IADLs Independent: shopping, housework, finances, food prep, telephone, transportation , medication admin. Exam & Diagnostic Data Vital Signs and I&O Vital Signs Date Time Temp Pulse Resp B/P B/P Pulse O2 O2 Flow FiO2 Mean Ox Delivery Rate 05/05 1003 128/70 05/05 0837 100 Nasal 3.5L Cannula 05/05 0707 98.1 70 20 122/76 100 Nasal 3.5L Cannula 05/05 0409 97.7 83 18 128/98 100 Nasal 3.5L Cannula 05/05 0405 98 Nasal 3.5L Cannula 05/05 0320 97.0 62 16 108/56 100 Nasal 2.0L Cannula 05/05 0200 97.2 61 16 104/55 100 Nasal 2.0L Cannula 05/05 0100 97.2 58 21 100/56 100 Nasal 2.0L Cannula 05/05 0007 98.8 69 18 108/54 100 Nasal 2.0L Cannula 05/04 2254 110/62 05/04 2116 98.6 66 18 110/62 98 Room Air 05/04 2010 97.8 75 18 132/67 97 Room Air 05/04 1701 98.3 72 18 146/63 94 Room Air 05/04 1629 97 Room Air 05/04 1606 98.1 76 18 112/66 97 Room Air Intake & Output 05/05 1600 05/05 0800 05/05 0000 05/04 1600 05/04 0800 05/04 0000 Intake Total 725 Output Total Balance 725 Intake, Blood 350 Product Intake, IV 375 Intake, Oral 0 Patient 376 lb 376 lb Weight Weight Reported by Patient Reported by Patient Measurement Method Physical Exam: Gen: The patient is in no acute distress HEENT: Normal nose, ears, and oropharynx. Pupils equal bilaterally. Conjunctiva normal. Neck: Supple with no JVD, no masses, and no thyromegaly Lungs: Clear to auscultation with normal respiratory effort Heart: RRR, S1, S2, 1/6 systolic murmur. 1+ peripheral edema, 2+ pulses in the lower extremities bilaterally Abdomen: Soft, nontender, no masses. No hepatomegaly. No splenomegaly Extremities: No clubbing or cyanosis. Normal muscle strength in the upper and lower extremities Skin: Normal skin turgor with no skin ulcers or lesions noted. Neuro: Cranial nerves intact. Sensation intact Psych: Alert and oriented 3 with appropriate affect Labs/Joaquim Results: Laboratory Tests 05/05 05/04 0620 2219 Chemistry Sodium (137 - 145 mmol/L) 141 Potassium (3.5 - 5.1 mmol/L) 4.3 Chloride (98 - 107 mmol/L) 105 Carbon Dioxide (22 - 30 mmol/L) 27 Anion Gap (5 - 16) 10 BUN (9 - 20 mg/dL) 25 H Creatinine (0.7 - 1.2 mg/dL) 1.4 H Estimated GFR (>60 ml/min) 52 L BUN/Creatinine Ratio (7 - 25 %) 17.9 Troponin I (<0.11 ng/ml) 0.03 Hematology CBC w Diff NO MAN DIFF REQ WBC (4.8 - 10.8 /CUMM) 7.3 RBC (4.70 - 6.10 /CUMM) 2.95 L Hgb (14.0 - 18.0 G/DL) 6.5 *L Hct (42 - 52 %) 21.2 L MCV (80.0 - 94.0 FL) 72.0 L MCH (27.0 - 31.0 PG) 22.1 L RDW (11.5 - 14.5 %) 19.4 H Plt Count (130 - 400 /CUMM) 283 MPV (7.4 - 10.4 FL) 7.0 L Gran % (42.2 - 75.2 %) 59.8 Lymphocytes % (20.5 - 51.1 %) 28.4 Monocytes % (1.7 - 9.3 %) 8.9 Eosinophils % (0 - 5 %) 2.4 Basophils % (0.0 - 2.0 %) 0.5 Absolute Granulocytes (1.4 - 6.5 /CUMM) 4.4 Absolute Lymphocytes (1.2 - 3.4 /CUMM) 2.1 Absolute Monocytes (0.10 - 0.60 /CUMM) 0.7 H Absolute Eosinophils (0.0 - 0.7 /CUMM) 0.2 Absolute Basophils (0.0 - 0.2 /CUMM) 0 PUBS MCHC (33.0 - 37.0 G/DL) 30.8 L 05/04 1646 Chemistry Sodium (137 - 145 mmol/L) 141 Potassium (3.5 - 5.1 mmol/L) 4.2 Chloride (98 - 107 mmol/L) 103 Carbon Dioxide (22 - 30 mmol/L) 29 Anion Gap (5 - 16) 10 BUN (9 - 20 mg/dL) 28 H Creatinine (0.7 - 1.2 mg/dL) 1.5 H Estimated GFR (>60 ml/min) 48 L BUN/Creatinine Ratio (7 - 25 %) 18.7 Glucose (65 - 99 mg/dL) 71 Calcium (8.4 - 10.2 mg/dL) 9.2 Iron (49 - 181 ug/dL) 18 L TIBC (261 - 462 ug/dL) 395 Ferritin (17.9 - 464 ng/mL) 8.4 L Total Bilirubin (0.2 - 1.3 mg/dL) 0.7 AST (17 - 59 U/L) 11 L ALT (21 - 72 U/L) 15 L Alkaline Phosphatase (< 127 U/L) 80 Troponin I (<0.11 ng/ml) 0.02 Total Protein (6.3 - 8.2 g/dL) 6.3 Albumin (3.5 - 5.0 g/dL) 3.3 L Globulin (1.9 - 4.2 gm/dL) 3.0 Albumin/Globulin Ratio (1.1 - 2.2 %) 1.1 Hematology CBC w Diff NO MAN DIFF REQ WBC (4.8 - 10.8 /CUMM) 8.7 RBC (4.70 - 6.10 /CUMM) 2.63 L Hgb (14.0 - 18.0 G/DL) 5.6 *L Hct (42 - 52 %) 18.3 *L MCV (80.0 - 94.0 FL) 69.6 L MCH (27.0 - 31.0 PG) 21.4 L RDW (11.5 - 14.5 %) 18.9 H Plt Count (130 - 400 /CUMM) 340 MPV (7.4 - 10.4 FL) 6.5 L Gran % (42.2 - 75.2 %) 65.0 Lymphocytes % (20.5 - 51.1 %) 23.7 Monocytes % (1.7 - 9.3 %) 9.0 Eosinophils % (0 - 5 %) 2.1 Basophils % (0.0 - 2.0 %) 0.2 Absolute Granulocytes (1.4 - 6.5 /CUMM) 5.6 Absolute Lymphocytes (1.2 - 3.4 /CUMM) 2.1 Absolute Monocytes (0.10 - 0.60 /CUMM) 0.8 H Absolute Eosinophils (0.0 - 0.7 /CUMM) 0.2 Absolute Basophils (0.0 - 0.2 /CUMM) 0 PUBS MCHC (33.0 - 37.0 G/DL) 30.7 L Diagnostic Data EKG Results EKG tracing is independently reviewed, and reveals normal sinus rhythm at 73 interventricular conduction delay, lateral infarct age undetermined CXR Results Mild interstitial prominence. Stable cardiomegaly. Other Results Echocardiogram 12/02/15: 1. This was a technically difficult study due to the patient's body habitus. 2. Aortic sclerosis is present. There is no significant valvular stenosis. The ascending aorta is mildly dilated. 3. Mitral leaflet thickening is present with atypical moderate annular calcification and moderate mitral insufficiency with moderate left atrial dilatation. 4. No significant pericardial fluid was detected on this study. 5. The left ventricular chamber is moderately dilated with eccentric hypertrophy present. There is global hypokinesia present with an estimated ejection fraction of approximately 20%. Additional images were obtained following the administration of IV contrast. 6. The right heart chambers appear dilated. Tricuspid insufficiency is present. The right ventricular systolic pressure could not be accurately assessed. Enlargement of the inferior vena cava is also noted. 7. Left ventricular diastolic dysfunction is present. Assessment/Plan Assessment/Plan Assessment: 1. Nonischemic cardiomyopathy 2. Implanted defibrillator 3. Chronic systolic heart failure 4. Anemia secondary to upper GI bleed 5. No evidence of acute cardiac mildly. Cardiac status appears to be stable. Plan: * Agree with transfusion as per the medical service * GI workup as per gastroenterology * Continue carvedilol * Restart lisinopril 10 mg daily * Hold Lasix for now given evidence of acute GI bleed Consult Acknowledgment - Thank you for your consult request.
[2017-05-05 15:10] VITALS: BP 118/70
[2017-05-05 19:51] LABS: ABSOLUTE BASOPHIL COUNT 0 /CUMM (0.0-0.2); ABSOLUTE EOSINOPHIL COUNT 0.2 /CUMM (0.0-0.7); ABSOLUTE GRANULOCYTE CT 4.3 /CUMM (1.4-6.5); ABSOLUTE MONOCYTE COUNT 0.7 /CUMM (0.10-0.60); WHITE BLOOD CELL COUNT 7.4 /CUMM (4.8-10.8)
[2017-05-05 19:54] LABS: ABSOLUTE LYMPH COUNT 2.1 /CUMM (1.2-3.4); BASOPHIL % 0.6 % (0.0-2.0); EOSINOPHIL % 2.8 % (0-5); GRANULOCYTE % 58.2 % (42.2-75.2); MEAN CORPUSCULAR HGB 22.6 PG (27.0-31.0); MEAN CORPUSCULAR HGB CONC 30.9 G/DL (33.0-37.0); MEAN CORPUSCULAR VOLUME 72.9 FL (80.0-94.0); MEAN PLATELET VOLUME 6.9 FL (7.4-10.4); PLATELET COUNT 324 /CUMM (130-400); RBC DISTRIBUTION WIDTH 20.7 % (11.5-14.5); RED BLOOD CELL CT 3.16 /CUMM (4.70-6.10)
[2017-05-05 22:03] VITALS: BP 136/88
[2017-05-06 05:19] LABS: ABSOLUTE BASOPHIL COUNT 0 /CUMM (0.0-0.2); ABSOLUTE EOSINOPHIL COUNT 0.2 /CUMM (0.0-0.7); ABSOLUTE GRANULOCYTE CT 4.4 /CUMM (1.4-6.5); ABSOLUTE LYMPH COUNT 2.1 /CUMM (1.2-3.4); ABSOLUTE MONOCYTE COUNT 0.8 /CUMM (0.10-0.60); BASOPHIL % 0.4 % (0.0-2.0); EOSINOPHIL % 2.9 % (0-5); HEMATOCRIT 24.9 % (42-52); MEAN CORPUSCULAR HGB 23.6 PG (27.0-31.0); MEAN CORPUSCULAR HGB CONC 31.6 G/DL (33.0-37.0); MEAN CORPUSCULAR VOLUME 74.6 FL (80.0-94.0); MEAN PLATELET VOLUME 6.2 FL (7.4-10.4); PLATELET COUNT 295 /CUMM (130-400); RBC DISTRIBUTION WIDTH 21.6 % (11.5-14.5); RED BLOOD CELL CT 3.34 /CUMM (4.70-6.10); WHITE BLOOD CELL COUNT 7.5 /CUMM (4.8-10.8)
[2017-05-06 07:28] VITALS: BP 124/60
--- NOTE | 2017-05-06 07:34 | PN- Housestaff ---
PADMINI VERNON 05/06/17 0734: Subjective Follow-up For: obesity Acute blood loss anemia Upper GI bleed Anemia CHF Cardiomyopathy Complaints: pain scale (0-10) Tele-Events Since Last Visit: Sinus rhythm No overnight events Subjective: Patient was seen and examined this morning. He is alert awake and oriented to time place and person No acute events happened overnight. patient continues to report dyspnea on exertion. denies any generalized weakness and fatigue Reports on and off cough. Denies any chest pain, diaphoresis, dizzy or lightheadedness. denies any syncopal events. Denies any fever, chills. Vitals remained stable afebrile, heart rate 70, respiratory 20, blood pressure 130/70, saturating at 95 on 3 L. Review of Systems Constitutional: Reports: see HPI. Objective Last 24 Hrs of Vital Signs/I&O Vital Signs Date Time Temp Pulse Resp B/P B/P Pulse O2 O2 Flow FiO2 Mean Ox Delivery Rate 05/06 1526 98.1 59 14 110/68 100 Nasal 3.0L Cannula 05/06 0944 130/88 05/06 0944 130/88 05/06 0935 97.6 63 14 130/88 95 Room Air 05/06 0842 99 Nasal 3.5L Cannula 05/06 0728 97.6 64 18 124/60 98 Nasal 3.5L Cannula 05/06 0000 97 Nasal 2.0L Cannula 05/05 2234 67 138/66 05/05 2203 98.8 67 18 136/88 96 Nasal 3.5L Cannula Intake & Output 05/06 1600 05/06 0800 05/06 0000 Intake Total 400 0 600 Output Total 600 Balance -200 0 600 Intake, Oral 400 0 600 Number 1 Bowel Movements Output, Urine 600 Physical Exam General Appearance: Alert, Oriented X3, Cooperative, No Acute Distress Skin: No Rashes, No Breakdown, No Significant Lesion HEENT: Atraumatic, PERRLA, EOMI, Mucous Membr. moist/pink Neck: Supple, No JVD, No thryomegaly, +2 Carotid Pulse wo Bruit, No LAD Lymphatic: Cervical nl Cardiovascular: Normal S1, Normal S2 Lungs: Normal Air Movement Abdomen: Normal Bowel Sounds, Soft, No Tenderness Extremities: No Clubbing, No Cyanosis, No Edema Vascular: Normal Pulses, Pulses Symmetrical Current Medications: Current Medications Sig/Keaton Start time Last Medication Dose Route Stop Time Status Admin Albuterol Sulfate 2 PUF Q4-6 PRN PRN 05/05 1515 AC INH Atorvastatin Calcium 10 MG 1700 05/05 1700 AC 05/05 PO 1646 Budesonide/ 2 PUF BID 05/05 2200 AC 05/06 Formoterol Fumarate INH 0945 Carvedilol 12.5 MG BID 05/04 2200 AC 05/06 PO 0944 Chlorhexidine 1 GM .STK-MED ONE 05/06 0831 DC Gluconate TOP 05/06 0832 Furosemide 40 MG 7:30 AM, & 4:30 PM 05/06 1630 AC PO Hydroxyzine HCl 100 MG BID 05/04 2200 AC 05/06 PO 0944 Insulin Aspart 0 TIDAC 05/05 1700 AC 05/06 SC 1332 Ipratropium [place] 2.5 ML DAILY 05/06 1000 AC INH Lisinopril 10 MG DAILY 05/05 1508 AC 05/06 PO 0944 Montelukast Sodium 10 MG AT BEDTIME 05/06 220 AC PO Omeprazole 40 MG BID 05/06 1000 AC 05/06 PO 0951 Oxycodone/ 1 TAB Q6P PRN 05/04 2045 AC 05/05 Acetaminophen PO 2145 Pantoprazole Sodium 40 MG BID 05/04 220 DC 05/05 IV 1004 Last 24 Hrs of Lab/Joaquim Results Last 24 Hrs of Labs/Mics: Laboratory Tests 05/06/17 0449: Anion Gap 11, Estimated GFR 52 L, BUN/Creatinine Ratio 14.3, CBC w Diff NO MAN DIFF REQ, RBC 3.34 L, MCV 74.6 L, MCH 23.6 L, RDW 21.6 H, MPV 6.2 L, Gran % 59.0, Lymphocytes % 27.6, Monocytes % 10.1 H, Eosinophils % 2.9, Basophils % 0.4, Absolute Granulocytes 4.4, Absolute Lymphocytes 2.1, Absolute Monocytes 0.8 H, Absolute Eosinophils 0.2, Absolute Basophils 0, PUBS MCHC 31.6 L 05/05/17 1848: CBC w Diff NO MAN DIFF REQ, RBC 3.16 L, MCV 72.9 L, MCH 22.6 L, RDW 20.7 H, MPV 6.9 L, Gran % 58.2, Lymphocytes % 28.6, Monocytes % 9.8 H, Eosinophils % 2.8, Basophils % 0.6, Absolute Granulocytes 4.3, Absolute Lymphocytes 2.1, Absolute Monocytes 0.7 H, Absolute Eosinophils 0.2, Absolute Basophils 0, PUBS MCHC 30.9 L Microbiology 05/05 2242 LOWER RESP: Respiratory Culture - RES STAPH AUREUS 05/05 2242 LOWER RESP: Gram Stain - RES Assessment/Plan Assessment: Patient is a 62-year-old male with past history of hypertension, diabetes, CHF with ejection fraction 20% status post AICD and biventricular pacemaker placement, hyperlipidemia, cardiomyopathy, chronic venous insufficiency, COPD, sleep apnea, chronic pain on naproxen, chronic venous insufficiency, chronic kidney disease, peripheral artery disease presenting with fatigue, dyspnea on exertion and weakness for 1 week in the setting of black colored stools for 4-5 days and chronic use of naproxen for his chronic pain. Vitals on admission 98.1, pulse 76, respirations 18, blood pressure 112/66. Saturating 97% on room air. Labs were white cell count 8.7, H&H of 5.6 and 19.3, platelets 340, sodium 141, potassium 4.2, BUN/creatinine 28 and 1.5. LFTs normal Troponin normal cxr- Mild interstitial prominence. Stable cardiomegaly. Problem list 1. Anemia/upper GI bleed with melena 2. Obstructive sleep apnea 3. COPD not on home oxygen 4. Hyperlipidemia 5. Cardiomyopathy 6. Congestive heart failure with reduced ejection fraction 7. Diabetes mellitus 8. Hypertension 9. Chronic pain 1. Acute blood loss anemia/upper GI bleed-melena The patient is presenting with shortness of breath and weakness for 1 week in the setting of black colored stools for 4-5 days and chronic use of naproxen for his mouth pain. His H&H was found to be 5.6 and 18.3 respectively. His symptoms are most likely anemia secondary to GI blood loss as result of naproxen use. * admitted to [facility] for continuous monitoring. * vitals closely every shift * He also received 4 units of packed red blood cells -hemoglobin improved to 7.9 . * Goal hemoglobin greater than 8 * trended his troponins and serial EKGs * checked ferritin, iron, TIBC, and reticulocyte counts. * Gastro was consulted * upper GI endoscopy -1. 2 clean-based antral ulcers and 1 clean-based duodenal ulcer status post random biopsies of the stomach and directed biopsies of the larger prepyloric ulcer. 2. No active bleeding appreciated. * Avoid NSAIDs * Notify GI if signs of overt bleeding/hemodynamically unstable * changed IV Protonix to oral omeprazole twice a day for the next week and then daily dosing. * follow up the pathology results as an outpatient. * diet advanced as tolerated. * Recommended an outpatient colonoscopy. 2. COPD (chronic obstructive pulmonary disease) The patient states he has a history of COPD. He states that his shortness of breath has been getting worse the past week and that he has worsening of his chronic cough and bringing up more yellow sputum. * nebulizers as needed. * Total respiratory care * Albuterol * Fluticasone * Ipratropium * The total respiratory care * Follow-up sputum cultures * Hydroxyzine 100 mg by mouth twice a day 3. CHF (congestive heart failure) The patient has a history of CHF. Last echocardiogram showed ejection fraction 20% status post AICD and biventricular pacemaker placement * restarted home dose of Lasix 40 mg twice a day * Continue carvedilol 12.5 mg twice a day 4. Diabetes The patient has a history of diabetes. We'll hold all his home medications and start on NovoLog sliding scale. * Begin NovoLog sliding scale 5. Cardiomyopathy The patient reports a history of cardiomyopathy. We will continue his Lipitor, lisinopril, furosemide -Atorvastatin 10 mg by mouth daily -Lisinopril 10 mg by mouth daily -Furosemide 40 mg by mouth twice a day 6. Obstructive sleep apnea Not on CPAP 7. hyperlipidemia Continue Lipitor 10 mg daily 8. morbid obese Patient is full code DVT prophylaxis-alps Pain pathway Regular diet for now 8. Hypertension Continue home medications lisinopril 10 mg daily Problem List: 1. Anemia Pain Ratin Pain Location: n/a Pain Goal: Remain pain free Pain Plan: tylinol Tomorrow's Labs & Rationales: TEE Evangelista 05/06/17 0923: Attending MD Review Statement Attending Statement Attending MD Statement: examined this patient, discuss w/resident/PA/GAS ANALYST, agreed w/resident/PA/GAS ANALYST, discussed with family, reviewed EMR data (avail), discussed with nursing, discussed with case mgmt, reviewed images, amended to note Attending Assessment/Plan: ASSESSMENT 1. Acute on Chronic blood loss anemia 2. Suspected Upper GI bleed 3. History of DM, JORY, PAD, non ischemic cardiomyopathy with 20% ejection fraction S/P AICD biventricular pacer, COPD, CKD 4. acute kidney injury 2/2 IVVD 5. acute blood loss anemia PLAN - discontinue tele. - PO omeprazole 40 mg twice a day - Transfused 4 units PRBC - GI consulted and s/p EGD + for PUD clean based ulcer, PPI bid x 1 week, then daily. biopsy done - resume home meds, held dureitcs, resumed Geo inhibitor, cardiology on board. - Continue when necessary nebulization with albuterol and ipratropium - supplement iron. - Aspart DVT prophylaxis - Adequate pain control F/U GI Dr Salazar as o/p in 2 weeks. f/u PCP as o/p 1 week. resume lasix when able as o/p.
--- NOTE | 2017-05-06 08:15 | Proc Note Endoscopy ---
Endoscopy Procedure Medical History: unchanged (see [facility] consult) Mental Status: alert/oriented Heart/Lung Eval Prior to Sedation: within normal limits Candidate for Sedation? Yes Procedure Date: 05/06/17 Procedure Type: EGD w/biopsy Automated Cutting Machine Operator: Demetrius Salazar MD ASA Classification: III Indications: Melena, anemia. Instrument: diagnostic gastroscope Meds Received: MAC Patient's Tolerance: good Complications: none Extent Reached: second part of duodenum Procedure: After getting written informed consent the patient was placed in the left lateral decubitus position with pulse oximetry, cardiac monitoring, and supplemental oxygen given. A bite block was inserted and IV sedation was given until the desired effect was achieved. A high definition upper Olympus endoscope was then inserted into the mouth and advanced to the second portion of the duodenum with little difficulty. Retroflexed views and photodocumentation was obtained. Findings: Esophagus: The esophageal mucosa was grossly normal appearance and there was a normal-appearing Z line at 48 cm from the incisors. Stomach: In the antrum was a 1 cm cratered, clean-based ulcer and a few centimeters distal to this was another 0.5 cm clean-based ulcer. The remainder of the gastric mucosa was grossly normal in appearance. There were no masses appreciated. Distention and peristalsis of the stomach appeared normal. Retroflexed views were normal and did not reveal significant hiatal hernia. Biopsies were obtained around the edge of the 1 cm ulcer with cold biopsy forceps and were sent to pathology for further evaluation and random biopsies were also obtained from the antrum and the body with cold biopsy forceps and were sent to pathology for further evaluation. Duodenum: Within the duodenal bulb was a 1 cm clean-based ulcer. The duodenal sweep and folds are grossly normal in appearance. There was bile appreciated throughout to the second portion of the duodenum. Impression: 1. 2 clean-based antral ulcers and 1 clean-based duodenal ulcer status post random biopsies of the stomach and directed biopsies of the larger prepyloric ulcer. 2. No active bleeding appreciated. Recommendations: 1. Would change IV Protonix to oral omeprazole twice a day for the next week and then daily dosing. 2. He should avoid all NSAIDs. 3. He should follow up the pathology results with me as an outpatient. 4. His diet should be advanced as tolerated. 5. He should have an outpatient colonoscopy.
--- NOTE | 2017-05-06 09:23 | PN- Cardiology ---
Subjective Subjective: Pt seen and examined while seated comfortably at bedside having breakfast. Does not endorse any acute complaints of chest pain,palpitation, or increased shortness of breath. Had an EGD earlier today which was only remarkable for 3 clean based ulcers (no visible vessel or clot). No acute o/n event reported by nursing staff Review of Systems: See HPI. Objective Vital Signs and I&Os Vital Signs Date Time Temp Pulse Resp B/P B/P Pulse O2 O2 Flow FiO2 Mean Ox Delivery Rate 05/06 0944 130/88 05/06 0944 130/88 05/06 0935 97.6 63 14 130/88 95 Room Air 05/06 0842 99 Nasal 3.5L Cannula 05/06 0728 97.6 64 18 124/60 98 Nasal 3.5L Cannula 05/06 0000 97 Nasal 2.0L Cannula 05/05 2234 67 138/66 05/05 2203 98.8 67 18 136/88 96 Nasal 3.5L Cannula 05/05 1510 98.2 68 20 118/70 95 Room Air Intake & Output 05/06 1600 05/06 0800 05/06 0000 05/05 1600 05/05 0800 05/05 0000 Intake Total 0 600 750 725 Output Total 700 Balance 0 600 50 725 Intake, Blood 350 350 Product Intake, IV 375 Intake, Oral 0 600 400 0 Number 2 Bowel Movements Output, Urine 700 Patient 170.551 kg 170.551 kg Weight Weight Reported by Patient Reported by Patient Measurement Method Physical Exam: General Appearance Alert, Oriented X3, Cooperative Skin chronic venous insufficiency/stasis on both lower extremities HEENT Atraumatic, PERRLA, EOMI, Neck Supple, no JVD Cardiovascular Regular Rate, Normal S1, Normal S2 Lungs Mild rhonchi b/l Abdomen Normal Bowel Sounds, Soft, No Tenderness Extremities +2 edema b/l lower extremities Current Medications: Current Medications Sig/Keaton Start time Last Medication Dose Route Stop Time Status Admin Albuterol Sulfate 2 PUF Q4-6 PRN PRN 05/05 1515 AC INH Atorvastatin Calcium 10 MG 1700 05/05 1700 AC 05/05 PO 1646 Budesonide/ 2 PUF BID 05/05 2200 AC 05/06 Formoterol Fumarate INH 0945 Carvedilol 12.5 MG BID 05/04 2200 AC 05/06 PO 0944 Chlorhexidine 1 GM .STK-MED ONE 05/06 0831 DC Gluconate TOP 05/06 0832 Furosemide 40 MG BID 05/05 1000 DC 05/05 PO 1003 Hydroxyzine HCl 100 MG BID 05/04 2200 AC 05/06 PO 0944 Insulin Aspart 0 TIDAC 05/05 1700 AC SC Ipratropium [place] 2.5 ML DAILY 05/06 1000 AC INH Lisinopril 10 MG DAILY 05/05 1508 AC 05/06 PO 0944 Montelukast Sodium 10 MG AT BEDTIME 05/06 2200 AC PO Omeprazole 40 MG BID 05/06 1000 AC 05/06 PO 0951 Oxycodone/ 1 TAB Q6P PRN 05/04 2045 AC 05/05 Acetaminophen PO 2145 Pantoprazole Sodium 40 MG BID 05/04 2200 DC 05/05 IV 1004 Patient Medication 1 ED .[facility] ONE 05/05 1407 HI Teaching ED 05/05 1408 Results Last 48 Hrs of Labs/Mics: Laboratory Tests 05/06/17 0449: Anion Gap 11, Estimated GFR 52 L, BUN/Creatinine Ratio 14.3, CBC w Diff NO MAN DIFF REQ, RBC 3.34 L, MCV 74.6 L, MCH 23.6 L, RDW 21.6 H, MPV 6.2 L, Gran % 59.0, Lymphocytes % 27.6, Monocytes % 10.1 H, Eosinophils % 2.9, Basophils % 0.4, Absolute Granulocytes 4.4, Absolute Lymphocytes 2.1, Absolute Monocytes 0.8 H, Absolute Eosinophils 0.2, Absolute Basophils 0, PUBS MCHC 31.6 L 05/05/17 1848: CBC w Diff NO MAN DIFF REQ, RBC 3.16 L, MCV 72.9 L, MCH 22.6 L, RDW 20.7 H, MPV 6.9 L, Gran % 58.2, Lymphocytes % 28.6, Monocytes % 9.8 H, Eosinophils % 2.8, Basophils % 0.6, Absolute Granulocytes 4.3, Absolute Lymphocytes 2.1, Absolute Monocytes 0.7 H, Absolute Eosinophils 0.2, Absolute Basophils 0, PUBS MCHC 30.9 L 05/05/17 0620: Anion Gap 10, Estimated GFR 52 L, BUN/Creatinine Ratio 17.9, CBC w Diff NO MAN DIFF REQ, RBC 2.95 L, MCV 72.0 L, MCH 22.1 L, RDW 19.4 H, MPV 7.0 L, Gran % 59.8, Lymphocytes % 28.4, Monocytes % 8.9, Eosinophils % 2.4, Basophils % 0.5, Absolute Granulocytes 4.4, Absolute Lymphocytes 2.1, Absolute Monocytes 0.7 H, Absolute Eosinophils 0.2, Absolute Basophils 0, PUBS MCHC 30.8 L 05/04/17 2219: Troponin I 0.03 05/04/17 1646: Anion Gap 10, Estimated GFR 48 L, BUN/Creatinine Ratio 18.7, Glucose 71, Calcium 9.2, Iron 18 L, TIBC 395, Ferritin 8.4 L, Total Bilirubin 0.7, AST 11 L, ALT 15 L, Alkaline Phosphatase 80, Troponin I 0.02, Total Protein 6.3, Albumin 3.3 L, Globulin 3.0, Albumin/Globulin Ratio 1.1, CBC w Diff NO MAN DIFF REQ, RBC 2.63 L, MCV 69.6 L, MCH 21.4 L, RDW 18.9 H, MPV 6.5 L, Gran % 65.0 , Lymphocytes % 23.7, Monocytes % 9.0, Eosinophils % 2.1, Basophils % 0.2, Absolute Granulocytes 5.6, Absolute Lymphocytes 2.1, Absolute Monocytes 0.8 H, Absolute Eosinophils 0.2, Absolute Basophils 0, PUBS MCHC 30.7 L Assessment/Plan Assessment/Plan Echocardiogram 12/02/15: 1. This was a technically difficult study due to the patient's body habitus. 2. Aortic sclerosis is present. There is no significant valvular stenosis. The ascending aorta is mildly dilated. 3. Mitral leaflet thickening is present with atypical moderate annular calcification and moderate mitral insufficiency with moderate left atrial dilatation. 4. No significant pericardial fluid was detected on this study. 5. The left ventricular chamber is moderately dilated with eccentric hypertrophy present. There is global hypokinesia present with an estimated ejection fraction of approximately 20%. Additional images were obtained following the administration of IV contrast. 6. The right heart chambers appear dilated. Tricuspid insufficiency is present. The right ventricular systolic pressure could not be accurately assessed. Enlargement of the inferior vena cava is also noted. 7. Left ventricular diastolic dysfunction is present. Assessment: 1. Nonischemic cardiomyopathy 2. Implanted defibrillator 3. Chronic systolic heart failure 4. Anemia secondary to upper GI bleed 5. No evidence of acute decompensated CHF. Plan: * Continue carvedilol * Continue lisinopril 10 mg daily * Restart home dose Lasix since pt has a net positive fluid balance, is hemodynamically stable abd acute GI bleed has been ruled out. Continue telemetry? Yes Problem List: 1. Symptomatic anemia 2. Acute blood loss anemia
[2017-05-06 09:35] VITALS: BP 130/88
[2017-05-06 15:26] VITALS: BP 110/68
[2017-05-06 22:00] VITALS: BP 114/68
[2017-05-07 07:32] VITALS: BP 102/62
--- NOTE | 2017-05-07 08:15 | PN- Housestaff ---
PADMINI VERNON 05/07/17 0815: Subjective Follow-up For: obesity Acute blood loss anemia Upper GI bleed Anemia CHF Cardiomyopathy Complaints: no complaints Tele-Events Since Last Visit: Sinus rhythm No overnight events Subjective: Patient was seen and examined this morning. He is alert awake and oriented to time place and person No acute events happened overnight. patient continues to report dyspnea on exertion. denies any generalized weakness and fatigue Reports on and off cough. Denies any chest pain, diaphoresis, dizzy or lightheadedness. denies any syncopal events. Denies any fever, chills. Vitals remained stable afebrile, heart rate 70, respiratory 20, blood pressure 130/70, saturating at 95 on 3 L. Review of Systems Constitutional: Reports: see HPI. Objective Last 24 Hrs of Vital Signs/I&O Vital Signs Date Time Temp Pulse Resp B/P B/P Pulse O2 O2 Flow FiO2 Mean Ox Delivery Rate 05/07 1039 98.1 61 20 102/62 05/07 1038 98.1 61 20 102/62 05/07 0732 98.1 61 20 102/62 99 Nasal 4.0L Cannula 05/07 0000 95 Nasal 3.0L Cannula 05/06 2200 98.7 66 20 114/68 99 Room Air 05/06 2153 66 114/70 05/06 1600 96 Nasal 3.5L Cannula 05/06 1526 98.1 59 14 110/68 100 Nasal 3.0L Cannula Intake & Output 05/07 1600 05/07 0800 05/07 0000 Intake Total 200 1000 Output Total 600 Balance -400 1000 Intake, IV 0 Intake, Oral 200 1000 Number 0 Bowel Movements Output, Urine 600 Physical Exam General Appearance: Alert, Oriented X3, Cooperative, No Acute Distress Skin: No Rashes, No Breakdown HEENT: Atraumatic, PERRLA, EOMI, Mucous Membr. moist/pink Neck: Supple, No JVD, No thryomegaly Lymphatic: Cervical nl Cardiovascular: Normal S1, Normal S2, No Murmurs Lungs: Normal Air Movement Abdomen: Normal Bowel Sounds, Soft, No Tenderness Neurological: Normal Speech, Strength at 5/5 X4 Ext, Normal Tone, Sensation Intact, Cranial Nerves 3-12 NL Extremities: No Clubbing, No Cyanosis, No Edema Vascular: Normal Pulses, Pulses Symmetrical Current Medications: Current Medications Sig/Keaton Start time Last Medication Dose Route Stop Time Status Admin Albuterol Sulfate 2 PUF Q4-6 PRN PRN 05/05 1515 AC INH Atorvastatin Calcium 10 MG 1700 05/05 1700 AC 05/06 PO 1634 Budesonide/ 2 PUF BID 05/05 2200 AC 05/07 Formoterol Fumarate INH 1040 Carvedilol 12.5 MG BID 05/04 2200 AC 05/07 PO 1039 Furosemide 40 MG 7:30 AM, & 4:30 PM 05/06 1630 AC 05/07 PO 0848 Hydroxyzine HCl 100 MG BID 05/04 220 AC 05/07 PO 1038 Insulin Aspart 0 TIDAC 05/05 1700 AC 05/06 SC 1832 Ipratropium [place] 2.5 ML DAILY 05/06 1000 AC INH Lisinopril 10 MG DAILY 05/05 1508 AC 05/07 PO 1038 Montelukast Sodium 10 MG AT BEDTIME 05/06 2200 AC 05/06 PO 2152 Omeprazole 40 MG BID 05/06 1000 AC 05/07 PO 1038 Oxycodone/ 1 TAB Q6P PRN 05/04 2045 AC 05/07 Acetaminophen PO 0547 Last 24 Hrs of Lab/Joaquim Results Last 24 Hrs of Labs/Mics: Laboratory Tests 05/07/17 0625: Anion Gap 11, Estimated GFR 52 L, BUN/Creatinine Ratio 15.0, CBC w Diff NO MAN DIFF REQ, RBC 3.32 L, MCV 74.2 L, MCH 23.2 L, RDW 21.5 H, MPV 6.9 L, Gran % 62.4, Lymphocytes % 26.6, Monocytes % 8.1, Eosinophils % 2.5, Basophils % 0.4, Absolute Granulocytes 5.4, Absolute Lymphocytes 2.3, Absolute Monocytes 0.7 H, Absolute Eosinophils 0.2, Absolute Basophils 0, PUBS MCHC 31.3 L Assessment/Plan Assessment: Patient is a 62-year-old male with past history of hypertension, diabetes, CHF with ejection fraction 20% status post AICD and biventricular pacemaker placement, hyperlipidemia, cardiomyopathy, chronic venous insufficiency, COPD, sleep apnea, chronic pain on naproxen, chronic venous insufficiency, chronic kidney disease, peripheral artery disease presenting with fatigue, dyspnea on exertion and weakness for 1 week in the setting of black colored stools for 4-5 days and chronic use of naproxen for his chronic pain. Vitals on admission 98.1, pulse 76, respirations 18, blood pressure 112/66. Saturating 97% on room air. Labs were white cell count 8.7, H&H of 5.6 and 19.3, platelets 340, sodium 141, potassium 4.2, BUN/creatinine 28 and 1.5. LFTs normal Troponin normal cxr- Mild interstitial prominence. Stable cardiomegaly. Problem list 1. Anemia/upper GI bleed with melena 2. Obstructive sleep apnea 3. COPD not on home oxygen 4. Hyperlipidemia 5. Cardiomyopathy 6. Congestive heart failure with reduced ejection fraction 7. Diabetes mellitus 8. Hypertension 9. Chronic pain 1. Acute blood loss anemia/upper GI bleed-melena The patient is presenting with shortness of breath and weakness for 1 week in the setting of black colored stools for 4-5 days and chronic use of naproxen for his mouth pain. His H&H was found to be 5.6 and 18.3 respectively. His symptoms are most likely anemia secondary to GI blood loss as result of naproxen use. * [facility]. * vitals closely every shift * He also received 4 units of packed red blood cells -hemoglobin improved to 7.9 . * Goal hemoglobin greater than 8 * trended his troponins and serial EKGs * checked ferritin, iron, TIBC, and reticulocyte counts. * Gastro was consulted * upper GI endoscopy -1. 2 clean-based antral ulcers and 1 clean-based duodenal ulcer status post random biopsies of the stomach and directed biopsies of the larger prepyloric ulcer. 2. No active bleeding appreciated. * Avoid NSAIDs * will Notify GI if signs of overt bleeding/hemodynamically unstable * changed IV Protonix to oral omeprazole twice a day for the next week and then daily dosing. * follow up the pathology results as an outpatient. * diet advanced as tolerated. * Recommended an outpatient colonoscopy. 2. COPD (chronic obstructive pulmonary disease) The patient states he has a history of COPD. He states that his shortness of breath has been getting worse the past week and that he has worsening of his chronic cough and bringing up more yellow sputum. * nebulizers as needed. * Total respiratory care * Albuterol * Fluticasone * Ipratropium * The total respiratory care * Follow-up sputum cultures -MRSA. ID was contacted. will Monitor off antibiotics. * Hydroxyzine 100 mg by mouth twice a day 3. CHF (congestive heart failure) The patient has a history of CHF. Last echocardiogram showed ejection fraction 20% status post AICD and biventricular pacemaker placement * restarted home dose of Lasix 40 mg twice a day * Continue carvedilol 12.5 mg twice a day 4. Diabetes The patient has a history of diabetes. We'll hold all his home medications and start on NovoLog sliding scale. * Begin NovoLog sliding scale 5. Cardiomyopathy The patient reports a history of cardiomyopathy. We will continue his Lipitor, lisinopril, furosemide -Atorvastatin 10 mg by mouth daily -Lisinopril 10 mg by mouth daily -Furosemide 40 mg by mouth twice a day 6. Obstructive sleep apnea Not on CPAP 7. hyperlipidemia Continue Lipitor 10 mg daily 8. morbid obese Patient is full code DVT prophylaxis-alps Pain pathway Regular diet for now 8. Hypertension Continue home medications lisinopril 10 mg daily Problem List: 1. Anemia Pain Ratin Pain Location: n/a Pain Goal: Remain pain free Pain Plan: tylinol Tomorrow's Labs & Rationales: none TEE PEACE 05/07/17 0920: Attending MD Review Statement Attending Statement Attending MD Statement: examined this patient, discuss w/resident/PA/SOLAR PANEL INSTALLATION SUPERVISOR, agreed w/resident/PA/SOLAR PANEL INSTALLATION SUPERVISOR, discussed with family, reviewed EMR data (avail), discussed with nursing, discussed with case mgmt, reviewed images, amended to note Attending Assessment/Plan: ASSESSMENT 1. Acute on Chronic blood loss anemia 2. Suspected Upper GI bleed 3. History of DM, JORY, PAD, non ischemic cardiomyopathy with 20% ejection fraction S/P AICD biventricular pacer, COPD, CKD 4. acute kidney injury 2/2 IVVD 5. acute blood loss anemia PLAN - s/p Transfused 4 units PRBC - GI consulted and s/p EGD + for PUD clean based ulcer, PPI bid x 1 week, then daily. biopsy done - resume home meds, resumed dureitcs, resumed Geo inhibitor, cardiology on board. - Continue when necessary nebulization with albuterol and ipratropium - supplement iron. - Aspart DVT prophylaxis - Adequate pain control F/U GI Dr Salazar as o/p in 2 weeks. f/u PCP as o/p 1 week. d/c today. Patient clinically stable.
[2017-05-07 08:28] LABS: ABSOLUTE BASOPHIL COUNT 0 /CUMM (0.0-0.2); ABSOLUTE EOSINOPHIL COUNT 0.2 /CUMM (0.0-0.7); ABSOLUTE GRANULOCYTE CT 5.4 /CUMM (1.4-6.5); ABSOLUTE LYMPH COUNT 2.3 /CUMM (1.2-3.4); ABSOLUTE MONOCYTE COUNT 0.7 /CUMM (0.10-0.60); BASOPHIL % 0.4 % (0.0-2.0); EOSINOPHIL % 2.5 % (0-5); GRANULOCYTE % 62.4 % (42.2-75.2); HEMATOCRIT 24.6 % (42-52); MEAN CORPUSCULAR HGB 23.2 PG (27.0-31.0); MEAN CORPUSCULAR HGB CONC 31.3 G/DL (33.0-37.0); MEAN CORPUSCULAR VOLUME 74.2 FL (80.0-94.0); MEAN PLATELET VOLUME 6.9 FL (7.4-10.4); PLATELET COUNT 268 /CUMM (130-400); RBC DISTRIBUTION WIDTH 21.5 % (11.5-14.5); RED BLOOD CELL CT 3.32 /CUMM (4.70-6.10); WHITE BLOOD CELL COUNT 8.6 /CUMM (4.8-10.8)
--- NOTE | 2017-05-07 08:37 | PN- Student ---
Subjective Subjective: Patient had an episode of coughing around 1 am last night. Productive of yellow sputum. He says they were sent for culture. Pain is 4/10, patient just took his pain medication. Pain is from left leg tenderness, and during coughing. Minor SOB on ambulation. Objective Objective: Current Medications Sig/Keaton Start time Last Medication Dose Route Stop Time Status Admin Albuterol Sulfate 2 PUF Q4-6 PRN PRN 05/05 1515 AC INH Atorvastatin Calcium 10 MG 1700 05/05 1700 AC 05/06 PO 1634 Budesonide/ 2 PUF BID 05/05 2200 AC 05/06 Formoterol Fumarate INH 2154 Carvedilol 12.5 MG BID 05/04 2200 AC 05/06 PO 2153 Chlorhexidine 1 GM .STK-MED ONE 05/06 0831 DC Gluconate TOP 05/06 0832 Furosemide 40 MG 7:30 AM, & 4:30 PM 05/06 1630 AC 05/06 PO 1634 Hydroxyzine HCl 100 MG BID 05/04 2200 AC 05/06 PO 2152 Insulin Aspart 0 TIDAC 05/05 1700 AC 05/06 SC 1832 Ipratropium [place] 2.5 ML DAILY 05/06 1000 AC INH Lisinopril 10 MG DAILY 05/05 1508 AC 05/06 PO 0944 Montelukast Sodium 10 MG AT BEDTIME 05/06 2200 AC 05/06 PO 2152 Omeprazole 40 MG BID 05/06 1000 AC 05/06 PO 2153 Oxycodone/ 1 TAB Q6P PRN 05/04 2045 AC 05/07 Acetaminophen PO 0547 Pantoprazole Sodium 40 MG BID 05/04 2200 DC 05/05 IV 1004 Vital Signs Date Time Temp Pulse Resp B/P B/P Pulse O2 O2 Flow FiO2 Mean Ox Delivery Rate 05/07 0732 98.1 61 20 102/62 99 Nasal 4.0L Cannula Exam: General: No apparent distress, Alert and oriented x 3 Skin: No rashes, no breakdown HEENT: Atraumatic, EOMI, PERRLA, mucous membrane: moist/pink Neck: Supple, no JVD, no LAD Cardiovascular: Normal s1s2, RRR Lungs: Minor wheezing throughout lungs Abdomen: Soft, non-tender, normoactive bowel sounds Extremities: swelling on left leg. 2+ edema. Venous stasis ulcers on both legs Results Results: Laboratory Tests 05/07/17 0625: Anion Gap 11, Estimated GFR 52 L, BUN/Creatinine Ratio 15.0, CBC w Diff Pending , WBC Pending, RBC Pending, Hgb Pending, Hct Pending, MCV Pending, MCH Pending, RDW Pending, Plt Count Pending, MPV Pending, PUBS MCHC Pending 05/06/17 0449: Anion Gap 11, Estimated GFR 52 L, BUN/Creatinine Ratio 14.3, CBC w Diff NO MAN DIFF REQ, RBC 3.34 L, MCV 74.6 L, MCH 23.6 L, RDW 21.6 H, MPV 6.2 L, Gran % 59.0, Lymphocytes % 27.6, Monocytes % 10.1 H, Eosinophils % 2.9, Basophils % 0.4, Absolute Granulocytes 4.4, Absolute Lymphocytes 2.1, Absolute Monocytes 0.8 H, Absolute Eosinophils 0.2, Absolute Basophils 0, PUBS MCHC 31.6 L 05/05/17 1848: CBC w Diff NO MAN DIFF REQ, RBC 3.16 L, MCV 72.9 L, MCH 22.6 L, RDW 20.7 H, MPV 6.9 L, Gran % 58.2, Lymphocytes % 28.6, Monocytes % 9.8 H, Eosinophils % 2.8, Basophils % 0.6, Absolute Granulocytes 4.3, Absolute Lymphocytes 2.1, Absolute Monocytes 0.7 H, Absolute Eosinophils 0.2, Absolute Basophils 0, PUBS MCHC 30.9 L 05/05/17 0620: Anion Gap 10, Estimated GFR 52 L, BUN/Creatinine Ratio 17.9, CBC w Diff NO MAN DIFF REQ, RBC 2.95 L, MCV 72.0 L, MCH 22.1 L, RDW 19.4 H, MPV 7.0 L, Gran % 59.8, Lymphocytes % 28.4, Monocytes % 8.9, Eosinophils % 2.4, Basophils % 0.5, Absolute Granulocytes 4.4, Absolute Lymphocytes 2.1, Absolute Monocytes 0.7 H, Absolute Eosinophils 0.2, Absolute Basophils 0, PUBS MCHC 30.8 L 05/04/17 2219: Troponin I 0.03 05/04/17 1646: Anion Gap 10, Estimated GFR 48 L, BUN/Creatinine Ratio 18.7, Glucose 71, Calcium 9.2, Iron 18 L, TIBC 395, Ferritin 8.4 L, Total Bilirubin 0.7, AST 11 L, ALT 15 L, Alkaline Phosphatase 80, Troponin I 0.02, Total Protein 6.3, Albumin 3.3 L, Globulin 3.0, Albumin/Globulin Ratio 1.1, CBC w Diff NO MAN DIFF REQ, RBC 2.63 L, MCV 69.6 L, MCH 21.4 L, RDW 18.9 H, MPV 6.5 L, Gran % 65.0 , Lymphocytes % 23.7, Monocytes % 9.0, Eosinophils % 2.1, Basophils % 0.2, Absolute Granulocytes 5.6, Absolute Lymphocytes 2.1, Absolute Monocytes 0.8 H, Absolute Eosinophils 0.2, Absolute Basophils 0, PUBS MCHC 30.7 L Microbiology 05/05 2242 LOWER RESP: Respiratory Culture - RES STAPH AUREUS 05/05 2242 LOWER RESP: Gram Stain - RES Assessment/Plan Assessment: Patient is a 62-year-old male with past history of hypertension, diabetes, CHF with ejection fraction 20% status post AICD and biventricular pacemaker placement, hyperlipidemia, cardiomyopathy, chronic venous insufficiency, COPD, sleep apnea, chronic pain on naproxen, chronic venous insufficiency, chronic kidney disease, peripheral artery disease presenting with fatigue, dyspnea on exertion and weakness for 1 week in the setting of black colored stools for 4-5 days and chronic use of naproxen for his chronic pain found to have antral and duodenal ulcers on endoscopy. Plan: 1. Melena d/t peptic ulcer disease 2. COPD not on home oxygen 3. CHF 4. Diabetes mellitus 5. Cardiomyopathy 1) Peptic ulcer disease -omeprazole 40 mg BID for 1 week, then switch to daily dosing -avoid all NSAIDs. -follow up the pathology results -He should have an outpatient colonoscopy. 2) COPD -nebulizers as needed. -Total respiratory care -Albuterol -Fluticasone -Ipratropium -Follow-up sputum cultures -hydroxyzine 100 mg by mouth twice a day 3) CHF (congestive heart failure) -Lasix 40 mg twice a day -Continue carvedilol 12.5 mg twice a day 4) Diabetes -novoLog sliding scale 5) Cardiomyopathy -Atorvastatin 10 mg by mouth daily -Lisinopril 10 mg by mouth daily -Furosemide 40 mg by mouth twice a day
[2017-05-07] MEDS ORDERED: OMEPRAZOLE40 M1 PO (08:39)
--- NOTE | 2017-05-07 08:43 | Patient Discharge Instructions ---
Discharge Instructions General Discharge Information You were seen/treated for: Acute blood loss anemia Melena You had these procedures: Endoscopy Watch for these problems: Nausea, vomiting, hematemesis Abdomen pain Black stools Fatigue, dyspnea on exertion Bright red blood per rectum Special Instructions: please follow-up with primary care physician within one week after discharge Please follow-up with booth manager within 1 week after discharge Please stop taking naproxen pain medication Please take omeprazole twice daily for 1 week and then take omeprazole daily Diet Continue normal diet: Yes Activity Full Activity/No Limits: Yes Acute Coronary Syndrome Inclusion Criteria At DC or during hospital stay patient has or had the following: ACS DIAGNOSIS No Discharge Core Measures Meds if any: Prescribed or Continued at Discharge Meds if any: NOT Prescribed or Continued at Discharge Congestive Heart Failure Inclusion Criteria At DC or during hospital stay patient has or had the following: CHF DIAGNOSIS No Discharge Core Measures Meds if any: Prescribed or Continued at Discharge Meds if any: NOT Prescribed or Continued at Discharge Cerebrovascular accident Inclusion Criteria At DC or during hospital stay patient has or had the following: CVA/TIA Diagnosis No Discharge Core Measures Meds if any: Prescribed or Continued at Discharge Meds if any: NOT Prescribed or Continued at Discharge Venous thromboembolism Inclusion Criteria VTE Diagnosis No VTE Type NONE VTE Confirmed by (Test) NONE Discharge Core Measures - Per Current guidelines, there needs to be overlap - treatment for the first 5 days of Warfarin therapy. - If discharged on Warfarin prior to 5 days of - overlap therapy, the patient will need to be - assessed for post discharge needs including - *Post discharge parental anticoagulation - *Warfarin and/or parental anticoagulation education - *Follow up date to check INR post discharge At least 5 days overlap therapy as Inpatient No Meds if any: Prescribed or Continued at Discharge Note: Overlap Therapy is Warfarin and Anticoagulant Meds if any: NOT Prescribed or Continued at Discharge
[2017-05-07] MEDS ORDERED: FERROUS SULFAT325 M3 PO (08:46)
--- NOTE | 2017-05-07 13:25 | Discharge Summary ---
Visit Information Visit Dates Admission Date: 05/04/17 Discharge Date: 05/07/2017 Hospital Course Course Attending Physician: KAYLAN DE LA TORRE MD Primary Care Physician: UNKNOWN Provided referral to Dr. Jack Ortiz Other Care Providers: dr. fox bingham Consulting Request: 1 Consulting Specialty: Cardiology Consulting Request: 2 Consulting Specialty: Gastroenterology Hospital Course: Patient is a 62-year-old male with past history of hypertension, diabetes, CHF with ejection fraction 20% status post AICD and biventricular pacemaker placement, hyperlipidemia, cardiomyopathy, chronic venous insufficiency, COPD, sleep apnea, chronic pain on naproxen, chronic venous insufficiency, chronic kidney disease, peripheral artery disease presented with fatigue, dyspnea on exertion and weakness for 1 week in the setting of black colored stools for 4-5 days and chronic use of naproxen for his chronic pain. Vitals on admission 98.1, pulse 76, respirations 18, blood pressure 112/66. Saturating 97% on room air. Labs were white cell count 8.7, H&H of 5.6 and 19.3, platelets 340, sodium 141, potassium 4.2, BUN/creatinine 28 and 1.5. LFTs normal Troponin normal cxr- Mild interstitial prominence. Stable cardiomegaly. Problem list 1. Anemia/upper GI bleed with melena 2. Obstructive sleep apnea 3. COPD not on home oxygen 4. Hyperlipidemia 5. Cardiomyopathy 6. Congestive heart failure with reduced ejection fraction 7. Diabetes mellitus 8. Hypertension 9. Chronic pain 1. Acute blood loss anemia/upper GI bleed-melena The patient presented with shortness of breath and weakness for 1 week in the setting of black colored stools for 4-5 days and chronic use of naproxen for his mouth pain. His H&H was found to be 5.6 and 18.3 respectively. His symptoms are most likely from anemia secondary to GI blood loss as result of naproxen use. He was admitted to telemetry floor for continuous monitoring. Monitored vitals every shift. He received 4 units of blood transfusions. After which hemoglobin improved to 7.9. We trended his troponins. Serial EKGs were normal. Iron panel showed iron deficiency anemia. gastroenterology was consulted. He underwent endoscopy on 05/06/2017. upper GI endoscopy showed 2 clean-based antral ulcers and 1 clean-based duodenal ulcer status post random biopsies of the stomach and directed biopsies of the larger prepyloric ulcer and No active bleeding appreciated. we advised him not to use any NSAIDS. He received IV Protonix twice a day in the hospital. We switched him to oral omeprazole twice a day for the next week and then advised to take omeprazole daily for his ulcers. He was advised to follow up Dr. Salazar as an outpatient to know about pathology results and also outpatient colonoscopy. 2. COPD (chronic obstructive pulmonary disease) The patient states he has a history of COPD. He states that his shortness of breath has been getting worse the past week and that he has worsening of his chronic cough and bringing up more yellow sputum. He received total respiratory care and nebulizer treatments. He was continued on albuterol, fluticasone and ipratopium treatments. Follow-up sputum culture showed MRSA. ID was consulted. No recommendation for antibiotics. MRSA in sputum most possibly from colonization as per ID 3. CHF (congestive heart failure) The patient has a history of CHF. Last echocardiogram showed ejection fraction 20% status post AICD and biventricular pacemaker placement. We continued carvedilol 12.5 mg twice a day. His home medication Lasix was on hold in the hospital because of GI bleed. He was advised to continue Lasix after discharge 4. Diabetes The patient has a history of diabetes. His home medications were held in the hospital. He was placed her on NovoLog sliding scale in the hospital. He was advised to continue his home medications after discharge. 5. Cardiomyopathy The patient reports a history of cardiomyopathy. His home medications Lipitor, lisinopril, carvedilol. 6. Obstructive sleep apnea Not on CPAP 7. hyperlipidemia Continued Lipitor 10 mg daily 8. morbid obese Patient is full code DVT prophylaxis-alps Pain pathway Regular diet 8. Hypertension Continue home medications lisinopril 10 mg daily Complications: none Allergies: Coded Allergies: NO KNOWN ALLERGIES (02/25/16) Significant Procedures: Endoscopy Procedure Medical History: unchanged (see meditech consult) Mental Status: alert/oriented Heart/Lung Eval Prior to Sedation: within normal limits Candidate for Sedation? Yes Procedure Date: 05/06/17 Procedure Type: EGD w/biopsy Dog Groomer: Demetrius Salazar MD ASA Classification: III Indications: Melena, anemia. Instrument: diagnostic gastroscope Meds Received: MAC Patient's Tolerance: good Complications: none Extent Reached: second part of duodenum Procedure: After getting written informed consent the patient was placed in the left lateral decubitus position with pulse oximetry, cardiac monitoring, and supplemental oxygen given. A bite block was inserted and IV sedation was given until the desired effect was achieved. A high definition upper Olympus endoscope was then inserted into the mouth and advanced to the second portion of the duodenum with little difficulty. Retroflexed views and photodocumentation was obtained. Findings: Esophagus: The esophageal mucosa was grossly normal appearance and there was a normal-appearing Z line at 48 cm from the incisors. Stomach: In the antrum was a 1 cm cratered, clean-based ulcer and a few centimeters distal to this was another 0.5 cm clean-based ulcer. The remainder of the gastric mucosa was grossly normal in appearance. There were no masses appreciated. Distention and peristalsis of the stomach appeared normal. Retroflexed views were normal and did not reveal significant hiatal hernia. Biopsies were obtained around the edge of the 1 cm ulcer with cold biopsy forceps and were sent to pathology for further evaluation and random biopsies were also obtained from the antrum and the body with cold biopsy forceps and were sent to pathology for further evaluation. Duodenum: Within the duodenal bulb was a 1 cm clean-based ulcer. The duodenal sweep and folds are grossly normal in appearance. There was bile appreciated throughout to the second portion of the duodenum. Impression: 1. 2 clean-based antral ulcers and 1 clean-based duodenal ulcer status post random biopsies of the stomach and directed biopsies of the larger prepyloric ulcer. 2. No active bleeding appreciated. Pertinent Lab Results: cxr FINDINGS: The cardiac silhouette is prominent, but stable. Pacer leads overlie the right atrium and right ventricle. There is mild interstitial prominence present throughout both lungs. There are neither pleural effusions nor pneumothoraces. There are no consolidations. The osseous structures are stable. IMPRESSION: Mild interstitial prominence. Stable cardiomegaly. Disposition Summary Disposition Principal Diagnosis: Acute blood loss anemia Upper GI bleed Anemia CHF Cardiomyopathy Additional Diagnosis: Status post endoscopy Duodenal and antral ulcers Discharge Disposition: home or self care Discharge Instructions General Discharge Information Code Status: Full Code Patient's Diet: As tolerated Patient's Activity: As tolerated Follow-Up Instructions/Appts: please follow-up with primary care physician within one week after discharge Please follow-up with forge operator helper within 1 week after discharge Please stop taking naproxen pain medication Please take omeprazole twice daily for 1 week and then take omeprazole daily avoid all NSAIDs. please follow up the pathology results with as an outpatient. should have an outpatient colonoscopy with . Medications at Discharge Discharge Medications: Stop taking the following medications: Naproxen Sodium (Aleve) 220 MG CAPSULE ORAL TWICE DAILY Continue taking these medications: Fluticasone/Salmeterol (Advair 500-50 Diskus) 500 MCG-50 MCG/DOSE BLST.W.DEV 1 Puff Inhale through mouth TWICE DAILY Qty = 60 Comments: NOT GIVEN IN HOSPITAL Umeclidinium Platinum (Incruse Ellipta) 62.5 MCG/ACTUATION BLST.W.DEV 1 PUFF Inhale through mouth DAILY Qty = 90 Comments: NOT GIVEN IN HOSPITAL Carvedilol (Carvedilol) 12.5 MG TABLET 1 Tablet ORAL TWICE DAILY Comments: Last Taken: 05/07/17 Time: 10:38A.M Albuterol Sulfate (Proair Hfa) 90 MCG HFA.AER.AD 2 Puff Inhale through mouth EVERY 4-6 HOURS NEEDED as needed for COPD Comments: Last Taken: 01/14/17 Time: 8 AM Glimepiride (Glimepiride) 1 MG TABLET 1 Tablet ORAL TWICE DAILY Comments: NOT GIVEN IN HOSPITAL Montelukast Sodium (Singulair) 10 MG TABLET 1 Tablet ORAL DAILY Comments: Last Taken: 05/06/17 Time: 9:52P.M Metformin HCl (Glucophage) 1,000 MG TABLET 1 Tablet ORAL TWICE DAILY Comments: NOT GIVEN IN HOSPITAL Furosemide (Lasix) 40 MG TABLET 1 Tablet ORAL TWICE DAILY Comments: Last Taken: 05/07/17 Time: 8:48A.M Potassium Chloride (Klor-Con M20) 20 MEQ TAB.ER.PRT 1 Tablet ORAL DAILY Comments: Last Taken: NOT GIVEN AT HOSPITAL Time: Oxycodone HCl/Acetaminophen (Percocet 10-325 MG Tablet) 10 MG-325 MG TABLET 1 Tablet ORAL 4 TIMES A DAY as needed for PAIN Comments: Last Taken: 05/07/17 Time: 1:32P.M Ipratropium/Albuterol Sulfate (Combivent Respimat Inhal [place]) 20 MCG-100 MCG/ ACTUATION MIST.INHAL 2 PUFF Inhale through mouth TWICE DAILY Qty = 8 Comments: Last Taken:NOT GIVEN THIS ADMISSION Time: Hydroxyzine HCl (Hydroxyzine HCl) 50 MG TABLET 2 Tablet ORAL TWICE DAILY Qty = 120 Comments: Last Taken:05/07/17 Time:10:38A.M Lisinopril (Lisinopril) 10 MG TABLET 1 Tablet ORAL DAILY Qty = 90 Comments: Last Taken:05/07/17 Time:10:38A.M Atorvastatin Calcium (Atorvastatin Calcium) 10 MG TABLET 1 Tablet ORAL DAILY Qty = 90 Comments: Last Taken:05/06/17 Time:4:34P.M Start taking the following new medications: Omeprazole (Omeprazole) 40 MG CAPSULE. 1 Capsule ORAL DAILY Qty = 30 No Refills Instructions: take 2 tabs each day for one week then take one tab everyday Comments: Last Taken:05/07/17 Time:10:38A.M Ferrous Sulfate (Ferrous Sulfate) 325 MG (65 MG IRON) TABLET 1 Tablet ORAL DAILY Qty = 30 No Refills Comments: Last Taken:NOT STARTED IN HOSPITAL. Time: Copies To: JACK HARPER,YANELY Attending MD Review Statement Documenting Attending: TEE PEACE MD Other Findings: DISCHARGE DIAGNOSIS 1. Acute on Chronic blood loss anemia 2. Suspected Upper GI bleed 3. History of DM, JORY, PAD, non ischemic cardiomyopathy with 20% ejection fraction S/P AICD biventricular pacer, COPD, CKD 4. acute kidney injury 2/2 IVVD 5. acute blood loss anemia COURSE - s/p Transfused 4 units PRBC - GI consulted and s/p EGD + for PUD clean based ulcer, PPI bid x 1 week, then daily. biopsy done - resume home meds, resumed dureitcs, resumed Geo inhibitor, cardiology on board. - supplemental iron given F/U GI Dr Salazar as o/p in 2 weeks. f/u PCP as o/p 1 week. Patient clinically stable for discharge.
[2017-05-07 15:14] VITALS: BP 144/88
== END 2017-05-07 15:20 | DRG 378 ==
LOC: ERH 16:00 → 1NO 18:06 → ERHI 18:06 → ENRESERV 05-05 02:25 → 1NO 05-05 03:49 → ENPENDDIS 05-07 09:33 → 1NO 05-07 15:20
PROVIDERS: Hospitalist; Physician Assistant; Student in an Organized Health Care Education/Training Program; ADMIT Internal Medicine
PROC: 30233N1 Transfusion of Nonautologous Red Blood Cells into Peripheral Vein, Percutaneous Approach (ICD-10-PCS; 2017-05-04)
PROC: 0DB68ZX Excision of Stomach, Via Natural or Artificial Opening Endoscopic, Diagnostic (ICD-10-PCS; principal; 2017-05-06)
DX: K25.0 Acute gastric ulcer with hemorrhage (principal); I42.9 Cardiomyopathy, unspecified; N17.9 Acute kidney failure, unspecified; I13.0 Hypertensive heart and chronic kidney disease with heart failure and stage 1 through stage 4 chronic kidney disease, or unspecified chronic kidney disease; I50.22 Chronic systolic (congestive) heart failure; Z68.43 Body mass index [BMI] 50.0-59.9, adult; E11.22 Type 2 diabetes mellitus with diabetic chronic kidney disease; D62 Acute posthemorrhagic anemia; N18.9 Chronic kidney disease, unspecified; Z59.0 Homelessness; J44.9 Chronic obstructive pulmonary disease, unspecified; T39.315A Adverse effect of propionic acid derivatives, initial encounter; Z95.810 Presence of automatic (implantable) cardiac defibrillator; E78.5 Hyperlipidemia, unspecified; I87.2 Venous insufficiency (chronic) (peripheral); I73.9 Peripheral vascular disease, unspecified; G89.29 Other chronic pain; Z79.1 Long term (current) use of non-steroidal anti-inflammatories (NSAID); G47.33 Obstructive sleep apnea (adult) (pediatric); E66.01 Morbid (severe) obesity due to excess calories; Z79.84 Long term (current) use of oral hypoglycemic drugs
CPT/HCPCS: 1NP; 87184; ERO; 82436; 86920; 87070; 87147; 93005; 93010; J3490; P9016

== ENCOUNTER 2017-10-28 22:11 | Inpatient (IN) | payer OTHER, MEDICARE ==
[~2017-10-28] VITALS: Ht 182.9 cm; Wt 170.6 kg
[~2017-10-28 22:11] MED LIST changes: +ALEVE220 M1 PO; +ALLOPURINOL100 M1 PO; +ALLOPURINOL300 M1 PO; +ATORVASTATIN CA10 M1 PO; +AUGMENTIN 875-1 EACH PO; +COLCRYS0.6 M1 PO; +COMBIVENT RESPIM4 GM INH; +FERROUS SULFAT325 M3 PO; +GABAPENTIN100 M2 PO; +GABAPENTIN300 M2 PO; +LISINOPRIL10 M1 PO; +MECLIZINE HCL25 MG PO; +OMEPRAZOLE40 M1 PO; +PREDNISONE5 M1 PO; +SIMVASTATIN10 M1 PO; +ULORIC40 M1 PO; +ZITHROMAX500 M2 PO
--- NOTE | 2017-10-29 00:34 | ED CARDIAC/CP/PALPITATIONS ---
History of Present Illness General Chief Complaint: Chest Pain Stated Complaint: CP ALL DAY, MULTIPLE COMPLAINTS Source: patient, old records Exam Limitations: no limitations Vital Signs & Intake/Output Vital Signs & Intake/Output Vital Signs Date Time Temp Pulse Resp B/P B/P Pulse O2 O2 Flow FiO2 Mean Ox Delivery Rate 10/29 0041 97 Nasal 3.0L Cannula 10/283 97.7 64 20 142/87 100 Room Air ED Intake and Output 10/29 0000 10/28 1200 Intake Total Output Total Balance Patient 375 lb Weight Weight Reported by Patient Measurement Method Allergies Coded Allergies: No Known Allergies (10/05/17) Reconcile Medications Albuterol Sulfate (Proair Hfa) 90 MCG HFA.AER.AD 2 PUF INH Q4-6 PRN PRN COPD (Reported) Carvedilol 12.5 MG TABLET 1 TAB PO BID HEART (Reported) Colchicine (Colcrys) 0.6 MG TABLET 1 TAB PO DAILY GOUT (Reported) Febuxostat (Uloric) 40 MG TABLET 40 MG PO DAILY Gout Ferrous Sulfate 325 MG (65 MG IRON) TABLET 1 TAB PO DAILY anemia Fluticasone/Salmeterol (Advair 500-50 Diskus) 500 MCG-50 MCG/DOSE BLST.W.DEV 1 PUF INH BID COPD (Reported) Furosemide (Lasix) 40 MG TABLET 1 TAB PO BID DIURETIC (Reported) Gabapentin 300 MG CAPSULE 1 CAP PO TID NEUROPATHY (Reported) Glimepiride 1 MG TABLET 1 TAB PO BID DM (Reported) Hydroxyzine Hydrochloride (Atarax) 50 MG TABLET 2 TAB PO BID MUCUS (Reported) Ipratropium/Albuterol Sulfate (Combivent Respimat Inhal [place]) 20 MCG-100 MCG/ ACTUATION MIST.INHAL 2 PUFF INH BID copd (Reported) Lisinopril 10 MG TABLET 1 TAB PO DAILY BP (Reported) Metformin HCl (Glucophage) 1,000 MG TABLET 1 TAB PO BID DM (Reported) Montelukast Sodium (Singulair) 10 MG TABLET 1 TAB PO DAILY RESPIRATORY ( Reported) Oxycodone HCl/Acetaminophen (Percocet 10-325 MG Tablet) 10 MG-325 MG TABLET 1 TAB PO TID PRN PAIN (Reported) Prednisone 10 MG TABLET 0 PO DAILY copd 10/08-12/10 50 MG 10/10-12/12 40 MG 10/12-10/13 30 MG 10/14-10/15 20 MG 10/15 onwards 10 MG. Simvastatin (Simvastatin*) 10 MG TABLET 1 TAB PO QPM CHOLESTEROL (Reported) Umeclidinium [place] (Incruse Ellipta) 62.5 MCG/ACTUATION BLST.W.DEV 1 PUFF INH DAILY COPD (Reported) Triage Note: PT TO ER C/C 1 DAY HX OF INTERMITTENT C/P AND SOB, HX OF COPD. PT STATES HE IS ON 3.5 LITER OF O2 AT BASELINE, NO OXYGEN ON AT TIME OF ARRIVAL RA SAT 96-100%. PATIENT STATES HE HAS HAD PRODUCTIVE COUGH. REPORTS CHEST PAIN IS MID-STERNAL. C/O CARRION. EKG COMPLETE UPON ARRIVAL TO ED. MRSA HX Triage Nurses Notes Reviewed? yes Onset: Last week Duration: day(s):, constant, continues in ED Timing: recent history Quality/Severity: moderate Location: central Radiation: no radiation Activities at Onset: rest Prior Chest Pain/Card Workup: angina, cardiac cath, echocardiography, heart attack Modifying Factors: Improves With: rest. Nitro Today/Relief: no nitro taken today Aspirin Today: no aspirin today HPI: Several days prior to admission patient complains of increasing swelling and redness to the left foot with chills low-grade fever. He also complains of intermittent chest discomfort described as aching mild nonradiating occurring with exertion resolving with rest accompanied with shortness of breath. He denies nausea vomiting diarrhea headache dysuria bleeding. Past History Travel History Traveled to [place] past 21 day No Medical History Any Pertinent Medical History? 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 Hx Contributory? No Review of Systems Review of Systems Constitutional: Reports: no symptoms. EENTM: Reports: no symptoms. Respiratory: Reports: no symptoms. Cardiovascular: Reports: see HPI, chest pain. GI: Reports: no symptoms. Genitourinary: Reports: no symptoms. Musculoskeletal: Reports: see HPI, joint pain, joint swelling. Skin: Reports: rash. Neurological/Psychological: Reports: no symptoms. Hematologic/Endocrine: Reports: no symptoms. Immunologic/Allergic: Reports: no symptoms. All Other Systems: Reviewed and Negative Physical Exam Physical Exam General Appearance: well developed/nourished, alert, awake, anxious, mild distress, obese Head: atraumatic, normal appearance Eyes: Bilateral: normal appearance, PERRL, EOMI. Ears, Nose, Throat: normal pharynx, normal ENT inspection, hearing grossly normal, moist mucus membranes Neck: normal inspection, supple, full range of motion, no midline tenderness Respiratory: chest non-tender, quiet respiration, decreased breath sounds, rhonchi Cardiovascular: regular rate/rhythm, normal peripheral pulses, norml femoral pulses equa Peripheral Pulses: 4+ carotid (R), 4+ carotid (L) Gastrointestinal: normal bowel sounds, soft, non-tender, no organomegaly Back: normal inspection, normal range of motion Extremities: normal range of motion, pedal edema, stasis dermatitis Neurologic/Psych: no motor/sensory deficits, awake, alert, oriented x 3, normal mood/affect, 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 Skin: warm/dry, rash, left foot with edema violaceous discoloration especially at first 3 digits Excoriation over first metatarsal Lymphatic: no anterior cervical rafi Core Measures ACS in differential dx? No CVA/TIA Diagnosis No Sepsis Present: No Sepsis Focused Exam Completed? No Progress Differential Diagnosis: costochondritis, hyperkalemia, hypovolemia, musculoskeletal pain, pneumonia Plan of Care: Orders Procedure Date/time Status BLOOD CULTURE 10/29 014 Active Add-on Test (ER Only) 10/29 29 Active BLOOD CULTURE 01/04 0030 Active WESTERGREN SED RATE 10/29 003 Complete TROPONIN LEVEL 10/28 2225 Complete MAGNESIUM 10/28 2225 Complete C-REACTIVE PROTEIN 10/28 2225 Complete COMPREHENSIVE METABOLIC PANEL 10/28 2225 Complete CBC WITHOUT DIFFERENTIAL 10/28 2225 Complete EKG 10/28 2212 Active Current Medications Sig/[place] Start time Last Medication Dose Stop Time Status Admin Aspirin 162 MG ONCE ONE 10/29 299 UNVr (Aspirin) 10/29 030 Laboratory Tests 10/29/17 0005: ESR Westergren 44 H 10/29/17 0005: Anion Gap 8, Estimated GFR 52 L, BUN/Creatinine Ratio 20.7, Glucose 93, Calcium 10.3 H, Magnesium 2.0, Total Bilirubin 0.6, AST 19, ALT 25, Alkaline Phosphatase 86, Troponin I 0.09, C-Reactive Prot, Quant 2.2 H, Total Protein 7.0, Albumin 3.8, Globulin 3.2, Albumin/Globulin Ratio 1.2, CBC w Diff NO MAN DIFF REQ, RBC 4.47 L, MCV 82.1, MCH 26.9 L, RDW 15.8 H, MPV 6.3 L, Gran % 58.2, Lymphocytes % 33.3, Monocytes % 6.4, Eosinophils % 1.5, Basophils % 0.6, Absolute Granulocytes 4.9, Absolute Lymphocytes 2.8, Absolute Monocytes 0.5, Absolute Eosinophils 0.1, Absolute Basophils 0, PUBS MCHC 32.7 L Microbiology 10/29 224 BLOOD: Blood Culture - RECD 10/29 0057 BLOOD: Blood Culture - CAN Cancelled: AEROBIC BOTTLE QNS REORDER AND REDRAW REQUESTED 10/29 0005 BLOOD: Blood Culture - RECD Diagnostic Imaging: Viewed by Me: Radiology Read. Discussed w/RAD: Radiology Read. Radiology Impression: 1. No focal soft tissue swelling or ulceration can be identified on the provided images. No suspicious areas of osteolytic change to strongly suggest osteomyelitis. 2. Redemonstrated juxtacortical and intra- articular erosive changes at the first metatarsophalangeal joint and first interphalangeal joint. Appearance is unchanged and again concerning for underlying gout. 3. Stable linear radiodensities overlying the lateral aspect of the first proximal phalanx and medial aspect of the fourth proximal phalanx which are unchanged and of indeterminant etiology. CXR Impression: stable cardiomegaly Initial ED EKG: pacemaker rhythm Prior EKG: unchanged Rhythm Strip: normal sinus rhythm Departure Departure Disposition: STILL A PATIENT Condition: Stable Clinical Impression Primary Impression: Cellulitis Qualifiers: Site of cellulitis: extremity Site of cellulitis of extremity: lower extremity Laterality: left Qualified Code: L03.116 - Cellulitis of left lower limb Secondary Impressions: Chest pain syndrome, COPD exacerbation Referrals: Carlee Mooney APRN (PCP/Family) Departure Forms: Customer Survey General Discharge Information Admission Note Spoke With: Mamta Ochoa MD Documentation of Exam: Documentation of any treatments & extenuating circumstances including Concerns Regarding Discharge (functional status, medication knowledge or non-compliance, living conditions, etc.) that warrant an admission rather than observation: IV antibiotics serial lab exam medication adjustment podiatry evaluation wound care evaluation continuing care discharge planning Critical Care Note Critical Care Note Critical Care Time: non-applicable
[2017-10-29 00:47] LABS: ABSOLUTE BASOPHIL COUNT 0 /CUMM (0.0-0.2); ABSOLUTE EOSINOPHIL COUNT 0.1 /CUMM (0.0-0.7); ABSOLUTE GRANULOCYTE CT 4.9 /CUMM (1.4-6.5); ABSOLUTE LYMPH COUNT 2.8 /CUMM (1.2-3.4); ABSOLUTE MONOCYTE COUNT 0.5 /CUMM (0.10-0.60); BASOPHIL % 0.6 % (0.0-2.0); EOSINOPHIL % 1.5 % (0-5); GRANULOCYTE % 58.2 % (42.2-75.2); HEMATOCRIT 36.7 % (42-52); MEAN CORPUSCULAR HGB 26.9 PG (27.0-31.0); MEAN CORPUSCULAR HGB CONC 32.7 G/DL (33.0-37.0); MEAN CORPUSCULAR VOLUME 82.1 FL (80.0-94.0); MEAN PLATELET VOLUME 6.3 FL (7.4-10.4); PLATELET COUNT 264 /CUMM (130-400); RBC DISTRIBUTION WIDTH 15.8 % (11.5-14.5); RED BLOOD CELL CT 4.47 /CUMM (4.70-6.10); WHITE BLOOD CELL COUNT 8.5 /CUMM (4.8-10.8)
--- NOTE | 2017-10-29 01:52 | RADIOLOGY REPORT ---
EXAMINATION: XR FOOT, LEFT CLINICAL INFORMATION: Left foot swelling, pain, discharge. Recent incision and drainage. COMPARISON: Left foot radiographs dated 09/09/2017. TECHNIQUE: AP, lateral, and oblique views of the left foot. FINDINGS: There are redemonstrated linear radiodensities overlying the lateral aspect of the first proximal phalanx and the medial aspect of the fourth proximal phalanx. There are redemonstrated well-defined corticated juxta-articular erosive changes at the first metacarpal phalangeal joint. Additional erosive change is noted within the joint. Juxta-articular erosive changes are also seen at the first interphalangeal joint. No soft tissue calcification is appreciated. No fracture or dislocation. No focal soft tissue swelling or ulceration is identified on the provided images. No suspicious areas of osteolytic change to strongly suggest osteomyelitis. Calcaneal heel spurs are noted. IMPRESSION: 1. No focal soft tissue swelling or ulceration can be identified on the provided images. No suspicious areas of osteolytic change to strongly suggest osteomyelitis. 2. Redemonstrated juxtacortical and intra-articular erosive changes at the first metatarsophalangeal joint and first interphalangeal joint. Appearance is unchanged and again concerning for underlying gout. 3. Stable linear radiodensities overlying the lateral aspect of the first proximal phalanx and medial aspect of the fourth proximal phalanx which are unchanged and of indeterminant etiology.
--- NOTE | 2017-10-29 01:55 | RADIOLOGY REPORT ---
EXAMINATION: XR PORTABLE CHEST CLINICAL INFORMATION: COPD with productive cough, shortness of breath. COMPARISON: Chest radiograph dated 10/05/2017. TECHNIQUE: Portable frontal view of the chest was obtained. FINDINGS: Left pectoral pacemaker is again noted. The distal pacer leads are not well seen. Cardiomegaly is again noted, similar to prior. No focal consolidation or effusion. No pneumothorax. No acute osseous abnormalities. IMPRESSION: Stable cardiomegaly. No focal consolidation or effusion.
--- NOTE | 2017-10-29 06:04 | History & Physical ---
Atilio Corcoran MD 10/29/17 0604: General Information and HPI MD Statement: I have seen and personally examined SUZETTE GRIGSBY SR and documented this H&P. The patient is a 62 year old M who presented with a patient stated chief complaint of [chest pain and left foot pain]. Source of Information: patient Exam Limitations: no limitations History of Present Illness: Patient is a 62-year-old male with past medical history of heart failure with reduced ejection fraction of 25-30%, mild tricuspid regurg, nonischemic cardiomyopathy status post pacemaker, COPD on 3.5 L of oxygen, obstructive sleep apnea not on CPAP, diabetes, chronic kidney disease, hyperlipidemia, peptic ulcer disease, chronic lower extremity edema, and gout s/p soft tissue debridement of left foot most recently admitted to the hospital on 10/05 for dyspnea and atypical chest pain presents this admission with chief complaint of chest pain and left foot pain. Patient reports intermittent chest pain and shortness of breath. Patient states that he was been having substernal chest pain for the past 1 week however has worsened over the past 1 day. States it is localized to the center of his chest and worsens with breathing, coughing, and movement. Patient states the pain is constantly present and is a 6/10 at baseline and increases to an 8/10 while coughing. Patient endorses a productive cough with greenish yellow phlegm. Endorses fever (not greater than 100 F), chills, and palpitations. Also complaining of increased left foot swelling and redness. States that after his debridement patient has been wrapping the foot. States the day prior to this admission he was unwrapping his bandages as they were soaked in a whitish drainage coming from the site of the debridement and his left big toe came off with the bandage. Patient states he has noticed foul smelling purulent discharge from the site. Patient reports 10/10 pain in th foot which is worse upon standing and walking. States he uses a cane to ambulate. On admission: Vitals: Temperature: 97.4, heart rate: 67, respiration rate: 16, blood pressure: 124/70, pulse ox: 98- 100% Labs: WBC: 8.5, H&H: 12.0 and 36.7, platelet: 264, ESR: 44 Sodium: 143, potassium: 5.1, chloride: 98, bicarbonate: 37, BUN: 29, creatinine: 1.4, glucose: 93, calcium:10.3, magnesium: 2.0, AST: 19, AST: 25, CRP: 2.2 EKG: HR: 63, atrial sensed, ventricular paced rhythm with intraventricular conduction delay Imaging: Chest x-ray: Stable cardiomegaly, no focal consolidation/effusion. Foot x-ray: 1. No focal soft tissue swelling or ulceration can be identified on the provided images. No suspicious areas of osteolytic change to strongly suggest osteomyelitis. 2. Redemonstrated juxtacortical and intra-articular erosive changes at the first metatarsophalangeal joint and first interphalangeal joint. Appearance is unchanged and again concerning for underlying gout. 3. Stable linear radiodensities overlying the lateral aspect of the first proximal phalanx and medial aspect of the fourth proximal phalanx which are unchanged and of indeterminant etiology. Allergies/Medications Allergies: Coded Allergies: No Known Allergies (10/05/17) Home Med list Albuterol Sulfate (Proair Hfa) 90 MCG HFA.AER.AD 2 PUF INH Q4-6 PRN PRN COPD (Reported) Carvedilol 12.5 MG TABLET 1 TAB PO BID HEART (Reported) Colchicine (Colcrys) 0.6 MG TABLET 1 TAB PO DAILY GOUT (Reported) Febuxostat (Uloric) 40 MG TABLET 40 MG PO DAILY Gout Ferrous Sulfate 325 MG (65 MG IRON) TABLET 1 TAB PO DAILY anemia Fluticasone/Salmeterol (Advair 500-50 Diskus) 500 MCG-50 MCG/DOSE BLST.W.DEV 1 PUF INH BID COPD (Reported) Furosemide (Lasix) 40 MG TABLET 1 TAB PO BID DIURETIC (Reported) Gabapentin 300 MG CAPSULE 1 CAP PO TID NEUROPATHY (Reported) Glimepiride 1 MG TABLET 1 TAB PO BID DM (Reported) Hydroxyzine Hydrochloride (Atarax) 50 MG TABLET 2 TAB PO BID MUCUS (Reported) Ipratropium/Albuterol Sulfate (Combivent Respimat Inhal [place]) 20 MCG-100 MCG/ ACTUATION MIST.INHAL 2 PUFF INH BID copd (Reported) Lisinopril 10 MG TABLET 1 TAB PO DAILY BP (Reported) Metformin HCl (Glucophage) 1,000 MG TABLET 1 TAB PO BID DM (Reported) Montelukast Sodium (Singulair) 10 MG TABLET 1 TAB PO DAILY RESPIRATORY ( Reported) Oxycodone HCl/Acetaminophen (Percocet 10-325 MG Tablet) 10 MG-325 MG TABLET 1 TAB PO TID PRN PAIN (Reported) Simvastatin (Simvastatin*) 10 MG TABLET 1 TAB PO QPM CHOLESTEROL (Reported) Umeclidinium [place] (Incruse Ellipta) 62.5 MCG/ACTUATION BLST.W.DEV 1 PUFF INH DAILY COPD (Reported) Past History Travel History Traveled to [place] past 21 day No Medical History Neurological: NONE EENT: NONE Cardiovascular: cardiomyopathy, CHF, chronic venous insuff, hyperlipidemia, CARDIAC ARREST S/P [facility] PACER Respiratory: COPD, SLEEP APNEA O2 3.5L NC @ [facility] Gastrointestinal: constipation, peptic ulcer disease, EGD 08/10 showed numerous gastric and duodenal ulcers Hepatic: NONE Renal: benign prost hyperplasia, TEMPORORY DIALYSIS Musculoskeletal: gout, rheumatoid arthritis Psychiatric: NONE Endocrine: diabetes Blood Disorders: anemia Cancer(s): 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 Psychosocial History Who Do You Live With? self Services at Home: Oxygen Primary Language: Chadian Functional Ability ADLs Independent: dressing, eating, toileting, bathing. Ambulation: independent IADLs Independent: shopping, housework, finances, food prep, telephone, transportation , medication admin. Review of Systems Review of Systems Constitutional: Reports: see HPI, fever. Cardiovascular: Reports: see HPI. Respiratory: Reports: see HPI. GI: Reports: diarrhea. Genitourinary: Denies: no symptoms. Musculoskeletal: Reports: see HPI, gout. Skin: Reports: see HPI. Neurological/Psychological: Denies: no symptoms. Exam & Diagnostic Data Last 24 Hrs of Vital Signs/I&O Vital Signs Date Time Temp Pulse Resp B/P B/P Pulse O2 O2 Flow FiO2 Mean Ox Delivery Rate 10/29 1615 98.2 90 22 142/74 97 Nasal 2.0L Cannula 10/29 1453 98 Nasal 2.0L Cannula 10/29 1330 98 Nasal 3.0L Cannula 10/29 1150 98.0 82 16 136/78 98 Nasal 2.0L Cannula 10/29 1024 90 140/74 10/29 1024 99 140/74 10/29 0424 97.4 67 16 124/75 98 Room Air 10/29 0130 97.3 60 20 146/84 98 Nasal 3.0L Cannula 10/29 0041 97 Nasal 3.0L Cannula 10/28 2233 97.7 64 20 142/87 100 Room Air Intake & Output 10/29 1600 10/29 0800 10/29 0000 Intake Total Output Total Balance Patient 375 lb Weight Weight Reported by Patient Measurement Method Physical Exam General Appearance Oriented X3, Cooperative, drowsy HEENT Atraumatic, Mucous Membr. moist/pink Cardiovascular Regular Rate, Normal S1, Normal S2, No Murmurs Lungs bilateral diffuse wheezing heard through all lung jaquez Abdomen Normal Bowel Sounds, Soft, No Tenderness Extremities No Clubbing, No Cyanosis, Normal Pulses, bilateral chronic venous stasis changes, +bilateral lower extremity edema greater on the left than right, point tenderness around the left metacarpophylangeal joint with no active drainage visible, no warmth or redness appreciated Vascular Normal Pulses, Pulses Symmetrical Last 24 Hrs of Labs/Joaquim: Laboratory Tests 10/29/17 0649: Troponin I 0.06 10/29/17 0544: Uric Acid Cancelled 10/29/17 0005: ESR W[place]gren 44 H 10/29/17 0005: Anion Gap 8, Estimated GFR 52 L, BUN/Creatinine Ratio 20.7, Glucose 93, Uric Acid 5.6, Calcium 10.3 H, Magnesium 2.0, Total Bilirubin 0.6, AST 19, ALT 25, Alkaline Phosphatase 86, Troponin I 0.09, C-Reactive Prot, Quant 2.2 H, Total Protein 7.0, Albumin 3.8, Globulin 3.2, Albumin/Globulin Ratio 1.2, CBC w Diff NO MAN DIFF REQ, RBC 4.47 L, MCV 82.1, MCH 26.9 L, RDW 15.8 H, MPV 6.3 L, Gran % 58.2, Lymphocytes % 33.3, Monocytes % 6.4, Eosinophils % 1.5, Basophils % 0.6, Absolute Granulocytes 4.9, Absolute Lymphocytes 2.8, Absolute Monocytes 0.5 , Absolute Eosinophils 0.1, Absolute Basophils 0, PUBS MCHC 32.7 L Microbiology 10/29 0225 BLOOD: Blood Culture - RECD 10/29 0057 BLOOD: Blood Culture - CAN Cancelled: AEROBIC BOTTLE QNS REORDER AND REDRAW REQUESTED 10/29 0005 BLOOD: Blood Culture - RECD Assessment/Plan Assessment: Patient is a 62-year-old male with past medical history of heart failure with reduced ejection fraction of 25-30%, mild tricuspid regurg, nonischemic cardiomyopathy status post pacemaker, COPD on 3.5 L of oxygen, obstructive sleep apnea not on CPAP, diabetes, chronic kidney disease, hyperlipidemia, peptic ulcer disease, chronic lower extremity edema, and gout s/p soft tissue debridement of left foot most recently admitted to the hospital on 10/05 for dyspnea and atypical chest pain presents this admission with atypical chest pain , COPD exacerbation and chronic left foot pain 2/2 to gout. Patient will be admitted to the telemtry floor for management of the followin. Atypical chest pain- presentation is inconsistent with cardiac etiology. Likely musculoskeletal or pleuritic secondary to excessive coughing due to COPD exacerbation. However due to acute worsening over the past day and considering patient's extensive cardiac will need to rule out ACS. * will monitor on telemetry * will do serial EKG and trops * will obtain cardiology consult in AM- pt's older worker specialist is Dr. George * will continue home medications of carvedilol and simvistatin 2. COPD Exacerbation - patient presents with worsening shortness of breath, low grade fever and productive cough. Patient received 1 dose of Unasyn in the ED. * will start on prednisone 40mg PO * TRC and DuoNeb treatments as needed * continue supplemental oxygen as needed (baseline of 3.5L NC) 3. Gout with nonhealing left foot wound- with no evidence of infection at this time. * will watch off antibiotics * will obtain wound consult in AM * will continue home medications of colchicine and febuxostat * will order uric acid level 4. DM and Diabetic neuropathy * will hold oral hypoglycemics * will place on insulin sliding scale with accuchecks * continue gabapentin 5. H/O Heart failure with reduced EF of 25-30% * Continue carvedilol, lisinopril * Continue lasix for lower extremity edema 6. H/O Anemia * Continue iron supplement Diet: Diabetic diet with salt restriction Code: Full code DVT PPx: Heparin SC As Ranked By This Provider Problem List: 1. Chest pain 2. COPD exacerbation 3. Podagra 4. Heart failure Core Measures/Misc (07/12) Acute Coronary Syndrome ACS Diagnosis: No Congestive Heart Failure Congestive Heart Failure Diagnosis No Cerebrovascular Accident CVA/TIA Diagnosis: No VTE (View Protocol) VTE Risk Factors Age>40 No Mechanical VTE Prophylaxis d/t N/A MechProphylax Ordered No VTE Pharm Prophylaxis d/t NA PharmProphylax ordered Sepsis (View protocol) Sepsis Present: No Ry,Kerry 10/29/17 0611: Resident Review Statement Resident Statement: examined this patient, discussed with communications intern, agreed with communications intern, discussed with family, reviewed EMR data (avail), discussed with nursing , discussed with case mgmt, reviewed images, amended to note Other Findings: 62-year-old male with a PMH of HFrEF 25-30%, mild TR, nonischemic cardiomyopathy s/p PPM, COPD on 3.5L Baseline, JORY not on CPAP, DM, chronic kidney disease and HLD who was admitted to 09/09/17 - 09/20/17 for podagra of left great toe with possible concomitant cellulitis/osteomyelitis, and COPD exacerbation presents to [facility] ER today with c/o chest pain, worsening shortness of breath, and worsening pain in his left foot. According to the patient he was his usual state of health up until yesterday when he started to experience substernal chest pain and shortness of breath. He said that the pain was worse every time he took a deep breath and cough. He denies any palpitations, nausea, vomiting, dizziness or lightheadedness. He also endorses pain in his left lower extremity that has been chronic going on for about 6-7 months, however, for the past few days has worsened. He also endorses a purulent discharge from the left toe. Patient endorses chills and low grade fevers as high as 100F. He endorses cough and bringing up phlegm. Of note his chest pain is constant that he grades as a 6 out of 10 - 8/10. He denies nausea, vomiting, endorses diarrhea - loose, headache dysuria bleeding. Vitals on admission blood pressure 124/75, respiratory rate of 16, pulse 67, afebrile saturating 98% on 3 L of oxygen via nasal cannula. Physical exam pertinenet for bilateral wheezes, and edema b/l wth chornic venous stasis changes, LLE>RLE; and tenderness on palpation at the 1st metacarpophalyngeal joint. Labs pertinent for normal white blood cell count 8500, H&H of 12.0/36.7, platelet count of 264,000, ESR of 44. Serum chemistries pertinent for sodium 143, potassium of 5.1, BUN 29 ; Cr: 1.4 and a serum calcium of 10.3. Serum magnesium was 2.0, LFTs pertinent for total bili 0.6, AST/alt of 19/25, alkaline phosphatase of 86 and a troponin of 0.09. CRP elevated to 2.2. Chest x-ray showed stable cardiomegaly no focal consolidation or effusion. X ray foot show no focal soft tissue swelling or ulceration, no suspicious areas of osteolytic change. Appearance unchanged and again concerning for underlying gout. Stable linear radiodensities overlying the lateral aspect of the first proximal phalanx and medial aspect of the fourth proximal phalanx which are unchanged and of indeterminant etiology. EKG revealed low voltage, paced ryhtm, no ST-T changes. In the ER patient received 162 mg of aspirin by mouth 1, ipratropium and albuterol as well as Unasyn 3000 mg IV 1. Assessment and plan Admit patient to telemetry given his cardiac history and low EF of 25% In the ER patient received 162 mg of aspirin by mouth 1, ipratropium and albuterol as well as Unasyn 3000 mg IV 1. # Atypical chest pain - Most likley musculoskeletal given he has been having worsening a nd constant pain since yesteday. - R/O ACS with trop and EKG - Cardio consult in AM. #AECOPD - Will start Prednisone 40mg for 5 days and tehn stop. - Continue TRC/Nebs #Hx of HFrEF with EF of 25% - S/P AICD - Continue home medications. #Gout - No evidence of cellulitis - Continue home medications of allopurinol and Urolic - Wrd off antibiotics - Will obtain wound consult in AM - F/U uric acid level - Diet - diabetic with 2 gm sodium restriction DVT prophyalxis - Heparin 5000IU TID SC - Code status - Full Code Mamta Ochoa 10/29/17 0734: Attending MD Review Statement Attending Statement Attending MD Statement: examined this patient, discuss w/resident/PA/BUYING INTERN, agreed w/resident/PA/BUYING INTERN, reviewed EMR data (avail), reviewed images, amended to note Attending Assessment/Plan: CC: CHEST pain PMH: DM, JORY, PAD, cardiomyopathy with 20% ejection fraction S/P AICD biventricular pacer, COPD, CKD Patient came to ER for chest pain, central, 8/10, nonradiating, associated with worsening of shortness of breath since last 2-3 days and productive cough with greenish yellow sputum. Patient denies any dizziness, palpitations. He also complains of left foot pain. And great toe nail injury when he was removing the dressing from the wound. He also endorses a purulent discharge from the left toe. Patient endorses chills and fevers as high as 100F. Vitals: T max 97.9, pulse 65, RR 24, blood pressure 142/87, saturating 100% on 3 L nasal cannula On exam: A O 3, morbidly obese, cooperative, no acute distress, neck supple, JVD normal, no lymphadenopathy, mucosa moist, no focal neurological deficit, bilateral pedal pitting edema L> R , bilateral lower extremity stasis dermatitis changes. Tophus on medial aspect near first metatarsophalangeal joint, not infected. tender to touch, Fungal infection in web spaces on left toe. CVS: S1- S2, RRR. RS: Bilateral diffuse wheezing, prolonged expiration Abdomen: Soft, NT, obese, bowel sounds present. Labs: CBC, BMP, LFT unremarkable except calcium 10.3, reacting 1.4 CXR: Stable cardiomegaly. No focal consolidation or effusion. Left foot x-ray: 1. No focal soft tissue swelling or ulceration can be identified on the provided images. No suspicious areas of osteolytic change to strongly suggest osteomyelitis. 2. Redemonstrated juxtacortical and intra-articular erosive changes at the first metatarsophalangeal joint and first interphalangeal joint. Appearance is unchanged and again concerning for underlying gout. 3. Stable linear radiodensities overlying the lateral aspect of the first proximal phalanx and medial aspect of the fourth proximal phalanx which are unchanged and of indeterminant etiology. Assessment and plan 62-year-old male with extensive past medical history presented in ER for chest pain, substernal, constant, worse with breathing, associated with gradual worsening of shortness of breath over 2 days and productive cough. Patient has mild wheezing on examination otherwise labs and examination unremarkable. Patient also complains of worsening left foot pain with redness and trauma to the nail of the great toe. But on examination there is no evidence of cellulitis and he has his chronic gout with tophi. Patient has chronically enlarged left lower extremity, does not appear inflamed, chronic gout medial aspect of left lower extremity, Given his extensive history and current chest pain is admitted to rule out ACS. Currently appears to be COPD exacerbation, not on antibiotics, short course of by mouth prednisone and nebs, serial troponins and EKGs. + Chest pain rule out acute coronary syndrome + COPD exacerbation + Gout + Mildly elevated creatinine + History of DM, JORY, PAD, cardiomyopathy with 20% ejection fraction S/P AICD biventricular pacer, COPD, CKD - Admit to telemetry - Continuous telemetry monitoring - Serial troponin and EKG - Prednisone PO 40 mg daily - Scheduled and when necessary albuterol and ipratropium nebulization round-the- clock - Strict I's and O's - Cardiology consult in a.m. - DVT prophylaxis - Adequate pain control - Watch off antibiotics, wound care consult, check uric acid, resume all his home medications
--- NOTE | 2017-10-29 07:35 | Admission Certification ---
Admission Certification Certification Statement - As attending physician, I certify that at the time of - admission, based on clinical presentation, severity of - symptoms, need for further diagnostic testing and - therapeutic interventions, and risk of adverse outcomes - without in-hospital treatment, in my clinical assessment, - this patient requires an acute hospital stay for a minimum - of two nights or longer. I have also considered psychsocial - factors such as support system, advanced age, financial - issues, cognitive issues, and failed out-patient treatments, - past re-admission history, safety of patient, and lack of - compliance as applicable. Specific rationale supporting this admission is: Chest pain, left foot pain
--- NOTE | 2017-10-29 07:54 | Event Note ---
Event Note Event Note: -Patient will be continued on bronchodilator therapy along with oral steroids for mild COPD exacerbation -We are going to continue telemetry monitoring for now. Cardiology consult with Dr. George in the morning. Patient most likely has nonischemic cardiomyopathy. He will benefit from pharmacological nuclear stress test which can be done as an outpatient -Left big toe swelling Currently there is no clinical or radiologic evidence of an infectious process. Holding off antibiotics for now will continue colchicine and prednisone
--- NOTE | 2017-10-29 14:18 | PN- Att Addend ---
Attending Addendum Attending Brief Note Mr Padilla has many complaints today. Initially stated he came to the emergency room with complaints of shortness of breath and chest pain. However when questioned further he admits that he has chronic shortness of breath which has increased mildly over the past few days due to the weather and because of his repeated coughing he admits to developing pleuritic chest pain. With further questioning he stated that he came to the emergency room for evaluation after being referred over from an urgent care center. He reports that 2 days ago toenail of his right big toe fell off suddenly with mild purulent discharge from the toe. He went to an urgent care center and he was referred to the emergency room for evaluation. He stated that he could not make it to the emergency room on that day because he have to finally keep up for his dog. He then came to the emergency room for evaluation yesterday. Due to his complaint of chest pain he was referred to the telemetry service for monitoring. He reports he developed chest pain only when coughing. With regards to shortness of breath he appears to be at baseline at present. He admits that his shortness of breath presently is no worse than usual. He is not short of breath at rest but dyspneic with exertion General appearance: Obese, not in respiratory distress Heart: S1-S2 regular Lungs: Fair entry bilaterally with diffuse rhonchi bilaterally. Abdomen: Obese, soft, nontender with normal bowel sounds Extremities: Bilateral 2+ pitting edema. Healing wound from prior debridement at medial aspect of the left first metatarsophalangeal joint. He has no toenail on the first toe. No discharge noted. No erythema. No tenderness. The toe and metatarsophalangeal joint are swollen but nontender. It is noted the patient is afebrile. He has no leukocytosis on his labs. Renal function is close to baseline. Patient is on 3.5 L of oxygen at baseline. Currently saturating 90% on 3 L of oxygen. Problems: 1. Musculoskeletal chest pain 2. Mild COPD exacerbation 3. Left big toe swelling. 4. Cardiomyopathy with EF of 20% status post biventricular pacer placement following episode of what appeared to be ventricular tachycardia. 5. Chronic kidney disease Plan: -Continue patient's Percocet for pain control. Monitor closely for oversedation. -Cardiac enzymes are negative 2. Follow with cardiology service regarding need for continued telemetry monitoring. Patient was reported to have normal coronaries during cardiology evaluation last fall. -Patient has evidence of mild COPD exacerbation. Continue bronchodilator therapy. He has been started on oral steroids. -Patient presented in August with pain and swelling at the same site. She was taken to the OR by the podiatry service and incision and drainage done. Biopsy cultures were negative for evidence of infection. He was treated for gout and discharged in stable condition. He reports following up with the podiatry service as an outpatient since discharge. Currently there is no clinical or radiologic evidence of an infectious process. He is very concerned that the toenail fell off. We will obtain podiatry consultation for evaluation and further recommendations. For now we will hold off antibiotic therapy. We will continue his colchicine. He is also on prednisone therapy for his COPD which would also provide added anti-inflammatory benefits.
[2017-10-29 18:20] VITALS: BP 158/76
[2017-10-29 23:59] VITALS: BP 130/70
--- NOTE | 2017-10-30 03:28 | Event Note ---
Event Note Event Note: Patient had 10 beats of nonsustained vtach while sleeping. Will obtain EKG, mag, phos and potassium level
[2017-10-30 05:47] LABS: ABSOLUTE BASOPHIL COUNT 0 /CUMM (0.0-0.2); ABSOLUTE EOSINOPHIL COUNT 0 /CUMM (0.0-0.7); ABSOLUTE GRANULOCYTE CT 6.5 /CUMM (1.4-6.5); ABSOLUTE LYMPH COUNT 2.3 /CUMM (1.2-3.4); ABSOLUTE MONOCYTE COUNT 0.7 /CUMM (0.10-0.60); BASOPHIL % 0.3 % (0.0-2.0); EOSINOPHIL % 0.5 % (0-5); GRANULOCYTE % 68.4 % (42.2-75.2); HEMATOCRIT 35.4 % (42-52); MEAN CORPUSCULAR HGB 26.5 PG (27.0-31.0); MEAN CORPUSCULAR HGB CONC 31.9 G/DL (33.0-37.0); MEAN CORPUSCULAR VOLUME 83.3 FL (80.0-94.0); MEAN PLATELET VOLUME 6.8 FL (7.4-10.4); PLATELET COUNT 225 /CUMM (130-400); RBC DISTRIBUTION WIDTH 16.4 % (11.5-14.5); RED BLOOD CELL CT 4.25 /CUMM (4.70-6.10); WHITE BLOOD CELL COUNT 9.5 /CUMM (4.8-10.8)
[2017-10-30 08:00] VITALS: BP 128/80
--- NOTE | 2017-10-30 08:04 | PN- Housestaff ---
Roxanne Cavanaugh 10/30/17 0804: Subjective Follow-up For: Atypical chest pain Mild COPD Exacerbation Chronic gout Subjective: Patient reports he has pain in his big toe after nail fell off and believe he has an underlying infection. He reports persistent chest pain Review of Systems Constitutional: Reports: see HPI. Objective Last 24 Hrs of Vital Signs/I&O Vital Signs Date Time Temp Pulse Resp B/P B/P Pulse O2 O2 Flow FiO2 Mean Ox Delivery Rate 10/30 1102 Nasal 3.5L Cannula 10/30 0921 70 144/76 10/30 0920 70 144/76 10/30 0910 94 Nasal 3.5L Cannula 10/30 0000 96 Nasal 3.5L Cannula 10/29 2359 97.8 80 24 130/70 96 Nasal 3.5L Cannula 10/29 2145 97.8 77 24 130/70 10/29 1834 96 Nasal 3.5L Cannula 10/29 1820 97.8 85 20 158/76 96 Nasal 3.5L Cannula 10/29 1615 98.2 90 22 142/74 97 Nasal 2.0L Cannula 10/29 1453 98 Nasal 2.0L Cannula 10/29 1330 98 Nasal 3.0L Cannula Intake & Output 10/30 1600 10/30 0800 10/30 0000 Intake Total 600 Output Total Balance 600 Intake, Oral 600 Patient 378 lb Weight Weight Bed scale Measurement Method Physical Exam General Appearance: Alert, Oriented X3, Cooperative, No Acute Distress HEENT: Atraumatic, PERRLA, EOMI Neck: Supple, No JVD, No thryomegaly Cardiovascular: Regular Rate, Normal S1, Normal S2, No Murmurs Lungs: Diffused BL wheezing Abdomen: Normal Bowel Sounds, Soft, No Tenderness Extremities: Lateral L foot healing wound. Desquamation of plantar foot. Current Medications: Current Medications Sig/Keaton Start time Last Medication Dose Route Stop Time Status Admin Acetaminophen 650 MG ONCE ONE 10/30 0745 DC 10/30 PO 10/30 0746 0745 Albuterol Sulfate 3 ML TID 10/30 1600 AC INH Albuterol Sulfate 3 ML BID 10/30 1000 DC 10/30 INH 0934 Albuterol Sulfate 3 ML ONCE ONE 10/29 1315 DC 10/29 INH 10/29 1316 1330 Albuterol Sulfate 2 PUF Q4-6 PRN PRN 10/29 0545 AC INH Atorvastatin Calcium 5 MG 1700 10/29 1700 AC 10/29 PO 1755 Budesonide/ 2 PUF BID 10/29 1000 AC 10/30 Formoterol Fumarate INH 0922 Carvedilol 12.5 MG BID 10/29 1000 AC 10/30 PO 0920 Colchicine 600 MCG DAILY 10/29 1000 AC 10/30 PO 0920 Febuxostat 40 MG DAILY 10/29 1000 AC 10/30 PO 0919 Ferrous Sulfate 325 MG DAILY 10/29 1000 AC 10/30 PO 0920 Furosemide 40 MG BID 10/29 1000 AC 10/30 PO 0920 Gabapentin 0 .STK-MED ONE 10/29 1757 DC PO Gabapentin 300 MG TID 10/29 1000 AC 10/30 PO 0920 Heparin Sodium 5,000 UNIT Q8 10/29 0600 AC 10/30 (Porcine) SC 0546 Hydroxyzine HCl 100 MG BID 10/29 1000 AC 10/30 PO 1145 Insulin Aspart 0 TIDAC 10/29 1200 AC 10/30 SC 1145 Lisinopril 10 MG DAILY 10/29 1000 AC 10/30 PO 0921 Montelukast Sodium 10 MG 2200 10/29 2200 AC 10/29 PO 2145 Oxycodone/ 0 .STK-MED ONE 10/29 1521 DC Acetaminophen PO Oxycodone/ 1 TAB Q6P PRN 10/29 0545 AC 10/30 Acetaminophen PO 1057 Prednisone 40 MG DAILY 10/29 1000 AC 10/30 PO 08 1001 0921 Tiotropium [place] 1 PUF DAILY 10/29 1000 AC 10/30 INH 0921 Last 24 Hrs of Lab/Joaquim Results Last 24 Hrs of Labs/Mics: Laboratory Tests 10/30/17 0430: Anion Gap 11, Estimated GFR 56 L, BUN/Creatinine Ratio 22.3, Phosphorus 3.6, Magnesium 2.1, CBC w Diff NO MAN DIFF REQ, RBC 4.25 L, MCV 83.3, MCH 26.5 L, RDW 16.4 H, MPV 6.8 L, Gran % 68.4, Lymphocytes % 23.8, Monocytes % 7.0, Eosinophils % 0.5, Basophils % 0.3, Absolute Granulocytes 6.5, Absolute Lymphocytes 2.3, Absolute Monocytes 0.7 H, Absolute Eosinophils 0, Absolute Basophils 0, PUBS MCHC 31.9 L 10/30/17 0321: Phosphorus Cancelled, Magnesium Cancelled Assessment/Plan Assessment: Mr. Padilla is a 62 yo m with past medical history of heart failure with reduced ejection fraction of 25-30%, mild tricuspid regurg, nonischemic cardiomyopathy status post pacemaker, COPD on 3.5 L of oxygen, obstructive sleep apnea not on CPAP, diabetes, chronic kidney disease, hyperlipidemia, peptic ulcer disease, chronic lower extremity edema, and gout s/p soft tissue debridement of left foot with multiple admissions for persistent gout and COPD exacerbation Atypical chest pain- presentation is inconsistent with cardiac etiology. Likely musculoskeletal or pleuritic secondary to excessive coughing due to COPD exacerbation. ECG/Trop negative for nay acute pathology * Cardiology recommendations appreciated * continue home medications of carvedilol and simvistatin COPD Exacerbation - patient presents with worsening shortness of breath, low grade fever and productive cough. Patient received 1 dose of Unasyn in the ED. * Continue prednisone 40mg PO * TRC and DuoNeb treatments as needed * continue supplemental oxygen as needed (baseline of 3.5L NC) History of Gout with nonhealing left foot wound- with no evidence of infection at this time and uric acid wnl. * watch off antibiotics * Podiatry recommendations appreciated * continue home medications of colchicine and febuxostat Hsitory of DM and Diabetic neuropathy * hold oral hypoglycemics * insulin sliding scale with accuchecks * continue gabapentin History of HFrEF of 25-30% * Continue carvedilol, lisinopril * Continue lasix for lower extremity edema History of Anemia * Continue iron supplement Diet: Diabetic diet with salt restriction Code: Full code DVT PPx: Heparin SC Problem List: 1. Gout 2. Tinea pedis 3. COPD with acute exacerbation Pain Ratin Pain Location: R foot Pain Goal: Pain 4 or less Pain Plan: Percocet Tomorrow's Labs & Rationales: CBC, Bundle Bonilla HARPER,Damari 10/30/17 1126: Attending MD Review Statement Attending Statement Attending MD Statement: examined this patient, discuss w/resident/PA/VOLTAGE REGULATOR ASSEMBLER, agreed w/resident/PA/VOLTAGE REGULATOR ASSEMBLER, reviewed EMR data (avail), discussed with nursing, discussed with case mgmt, amended to note Attending Assessment/Plan: Patient seen and examined. Resting comfortably and not in acute distress. He reports chest pain only when coughing. Denies shortness of breath at rest. Admits to less shortness of breath with exertion. Overnight he was noted to have a nonsustained episode of ventricular tachycardia. He denied any symptoms during the episode. His remained hemodynamically stable. Patient also remains afebrile. Laboratory data continues to show no leukocytosis. On examination heart sounds are regular. He has good entry bilaterally with no added sounds. Abdomen soft and nontender. He has bilateral lower extremity edema. On examination of the left foot, the toenail on the right big toe is not present. There is no erythema. There is no discharge. There is no tenderness. EKG this morning shows paced rhythm with no Ischemic changes Problems: 1. Musculoskeletal chest pain 2. Mild COPD exacerbation 3. Left big toe swelling. 4. Cardiomyopathy with EF of 20% status post biventricular pacer placement following episode of what appeared to be ventricular tachycardia. 5. Chronic kidney disease Plan: -Chest pain appears musculoskeletal. Cardiac enzymes are negative. Patient was reported to have normal coronaries during cardiology evaluation last fall. He had an episode of nonsustained ventricular tachycardia overnight. -He does have an AICD in place with no report of it firing. Follow-up with the cardiology service. -Awaiting evaluation by the electric motor control assembler service regarding his foot. Patient is very concerned about the possibility of an underlying infection. He shows no evidence of infection on exam or imaging. -Continue bronchodilator therapy. Continue prednisone for total of 5 days then stop. - Anticipate discharge if no further workup or intervention is recommended by the cardiology and podiatry service.
[2017-10-30 17:00] VITALS: BP 124/78
[2017-10-30 23:21] VITALS: BP 98/68
[2017-10-31 05:39] LABS: ABSOLUTE BASOPHIL COUNT 0 /CUMM (0.0-0.2); ABSOLUTE EOSINOPHIL COUNT 0.1 /CUMM (0.0-0.7); ABSOLUTE GRANULOCYTE CT 5.9 /CUMM (1.4-6.5); ABSOLUTE LYMPH COUNT 2.5 /CUMM (1.2-3.4); ABSOLUTE MONOCYTE COUNT 0.6 /CUMM (0.10-0.60); BASOPHIL % 0.3 % (0.0-2.0); EOSINOPHIL % 0.6 % (0-5); GRANULOCYTE % 65.1 % (42.2-75.2); HEMATOCRIT 35.5 % (42-52); MEAN CORPUSCULAR HGB 27.1 PG (27.0-31.0); MEAN CORPUSCULAR HGB CONC 32.7 G/DL (33.0-37.0); MEAN PLATELET VOLUME 6.5 FL (7.4-10.4); PLATELET COUNT 231 /CUMM (130-400); RBC DISTRIBUTION WIDTH 15.8 % (11.5-14.5); RED BLOOD CELL CT 4.27 /CUMM (4.70-6.10); WHITE BLOOD CELL COUNT 9.1 /CUMM (4.8-10.8)
[2017-10-31 08:00] VITALS: BP 118/70
--- NOTE | 2017-10-31 09:47 | Cons- Cardiology ---
General Information and HPI Consulting Request Date of Consult: 10/30/17 Requested By: Damari Crystal MD Reason for Consult: cardio myopathy; nonsustained VT Source of Information: patient, old records History of Present Illness: the patient is a 62-year-old male who is well-known to me. He has a history of congestive heart failure, cardiomyopathy with ejection fraction 25%, markedly abnormal EKG, prior cardiac catheterization was disclosed no coronary disease, COPD, obstructive sleep apnea, peripheral arterial disease, significant venous insufficiency, recent multiple gout flares, etc. The patient now presents to the hospital with complaints of shortness of breath, intermittent chest discomfort which is atypical, problems with persistent infection of his foot, etc. I was asked to the patient for evaluation of his cardiac status. The patient has had brief runs of nonsustained VT noted on the monitor. At the moment, the patient has no cardiac symptoms. Allergies/Medications Allergies: Coded Allergies: No Known Allergies (10/05/17) Home Med List: Albuterol Sulfate (Proair Hfa) 90 MCG HFA.AER.AD 2 PUF INH Q4-6 PRN PRN COPD (Reported) Carvedilol 12.5 MG TABLET 1 TAB PO BID HEART (Reported) Colchicine (Colcrys) 0.6 MG TABLET 1 TAB PO DAILY GOUT (Reported) Febuxostat (Uloric) 40 MG TABLET 40 MG PO DAILY Gout Ferrous Sulfate 325 MG (65 MG IRON) TABLET 1 TAB PO DAILY anemia Fluticasone/Salmeterol (Advair 500-50 Diskus) 500 MCG-50 MCG/DOSE BLST.W.DEV 1 PUF INH BID COPD (Reported) Furosemide (Lasix) 40 MG TABLET 1 TAB PO BID DIURETIC (Reported) Gabapentin 300 MG CAPSULE 1 CAP PO TID NEUROPATHY (Reported) Glimepiride 1 MG TABLET 1 TAB PO BID DM (Reported) Hydroxyzine Hydrochloride (Atarax) 50 MG TABLET 2 TAB PO BID MUCUS (Reported) Ipratropium/Albuterol Sulfate (Combivent Respimat Inhal [place]) 20 MCG-100 MCG/ ACTUATION MIST.INHAL 2 PUFF INH BID copd (Reported) Lisinopril 10 MG TABLET 1 TAB PO DAILY BP (Reported) Metformin HCl (Glucophage) 1,000 MG TABLET 1 TAB PO BID DM (Reported) Montelukast Sodium (Singulair) 10 MG TABLET 1 TAB PO DAILY RESPIRATORY ( Reported) Oxycodone HCl/Acetaminophen (Percocet 10-325 MG Tablet) 10 MG-325 MG TABLET 1 TAB PO TID PRN PAIN (Reported) Simvastatin (Simvastatin*) 10 MG TABLET 1 TAB PO QPM CHOLESTEROL (Reported) Umeclidinium [place] (Incruse Ellipta) 62.5 MCG/ACTUATION BLST.W.DEV 1 PUFF INH DAILY COPD (Reported) Current Medications: Current Medications Sig/Keaton Start time Last Medication Dose Route Stop Time Status Admin Acetaminophen 650 MG .STK-MED ONE 10/30 1548 DC PO 10/30 1549 Acetaminophen 650 MG Q6-PRN PRN 10/30 1315 AC 10/30 PO 1314 Albuterol Sulfate 3 ML TID 10/30 1600 AC 10/31 INH 0850 Albuterol Sulfate 3 ML BID 10/30 1000 DC 10/30 INH 0934 Albuterol Sulfate 2 PUF Q4-6 PRN PRN 10/29 0545 AC INH Atorvastatin Calcium 5 MG 1700 10/29 1700 AC 10/30 PO 1852 Budesonide/ 2 PUF BID 10/29 1000 AC 10/30 Formoterol Fumarate INH 2119 Carvedilol 12.5 MG BID 10/29 1000 AC 10/30 PO 2118 Colchicine 600 MCG DAILY 10/29 1000 AC 10/30 PO 0920 Febuxostat 40 MG DAILY 10/29 1000 AC 10/30 PO 0919 Ferrous Sulfate 325 MG DAILY 10/29 1000 AC 10/30 PO 0920 Furosemide 40 MG BID 10/29 1000 AC 10/30 PO 2119 Gabapentin 300 MG TID 10/29 1000 AC 10/30 PO 2120 Heparin Sodium 5,000 UNIT Q8 10/29 0600 AC 10/31 (Porcine) SC 0653 Hydroxyzine HCl 100 MG BID 10/29 1000 AC 10/30 PO 2115 Insulin Aspart 0 TIDAC 10/29 1200 AC 10/30 SC 1642 Lisinopril 10 MG DAILY 10/29 1000 AC 10/30 PO 0921 Montelukast Sodium 10 MG 2200 10/29 2200 AC 10/30 PO 2119 Oxycodone/ 1 TAB ONCE ONE 10/30 1900 DC 10/30 Acetaminophen PO 10/30 1901 1856 Oxycodone/ 1 TAB Q6P PRN 10/29 0545 AC 10/31 Acetaminophen PO 0328 Prednisone 40 MG DAILY 10/29 1000 AC 10/30 PO 11/02 1001 0921 Tiotropium [place] 1 PUF DAILY 10/29 1000 10/30 INH 0921 Past History Travel History Traveled to [place] past 21 day No Medical History Blood Transfusion Hx: Yes Neurological: NONE EENT: NONE Cardiovascular: cardiomyopathy, CHF, chronic venous insuff, hyperlipidemia, CARDIAC ARREST S/P LWC PACER Respiratory: COPD, SLEEP APNEA O2 3.5L NC @ [facility] Gastrointestinal: constipation, peptic ulcer disease, EGD 08/10 showed numerous gastric and duodenal ulcers Hepatic: NONE Renal: benign prost hyperplasia, TEMPORORY DIALYSIS Musculoskeletal: gout, rheumatoid arthritis Psychiatric: NONE Endocrine: diabetes Blood Disorders: anemia Cancer(s): NONE TOP LIFT COMPRESSOR/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 Other Who Do You Live With? self Services at Home: Oxygen Primary Language: Kinyarwanda Smoking Status: Never Smoked Functional Ability ADLs Independent: dressing, eating, toileting, bathing. Ambulation: independent IADLs Independent: shopping, housework, finances, food prep, telephone, transportation , medication admin. Exam & Diagnostic Data Vital Signs and I&O Vital Signs Date Time Temp Pulse Resp B/P B/P Pulse O2 O2 Flow FiO2 Mean Ox Delivery Rate 10/31 0857 98 Nasal 3.5L Cannula 10/31 08 Nasal 3.5L Cannula 10/31 08 97.1 68 18 118/70 98 Nasal 3.5L Cannula 10/31 0000 96 Nasal 3.5L Cannula 10/30 232 97.8 64 20 98/68 97 Nasal 3.5L Cannula 10/30 2118 72 142/88 10/30 2006 96 Nasal 3.5L Cannula 10/30 170 98 Nasal 3.5L Cannula 10/30 170 98.0 68 20 124/78 98 Nasal 3.5L Cannula 10/30 1102 Nasal 3.5L Cannula Intake & Output 10/31 1600 10/31 0800 10/31 0000 10/30 1600 10/30 0810/30 0000 Intake Total 400 600 750 600 Output Total Balance 400 600 750 600 Intake, IV 0 0 Intake, Oral 400 600 750 600 Number 0 0 Bowel Movements Patient 378 lb Weight Weight Bed scale Measurement Method Physical Exam: General Appearance Oriented X3, Cooperative, drowsy HEENT Atraumatic, Mucous Membr. moist/pink Cardiovascular Regular Rate, Normal S1, Normal S2, 2/6 systolic murmur Lungs bilateral diffuse wheezing heard through all lung jaquez Abdomen Normal Bowel Sounds, Soft, No Tenderness Extremities No Clubbing, No Cyanosis, Normal Pulses, bilateral chronic venous stasis changes, +bilateral lower extremity edema greater on the left than right, point tenderness around the left metacarpophylangeal joint with no active drainage visible, no warmth or redness appreciated Vascular Normal Pulses, Pulses Symmetrical Labs/Joaquim Results: Laboratory Tests 10/31 10/30 0439 0430 Chemistry Sodium (137 - 145 mmol/L) 142 144 Potassium (3.5 - 5.1 mmol/L) 4.5 4.5 Chloride (98 - 107 mmol/L) 97 L 97 L Carbon Dioxide (22 - 30 mmol/L) 37 H 35 H Anion Gap (5 - 16) 9 11 BUN (9 - 20 mg/dL) 33 H 29 H Creatinine (0.7 - 1.2 mg/dL) 1.3 H 1.3 H Estimated GFR (>60 ml/min) 56 L 56 L BUN/Creatinine Ratio (7 - 25 %) 22.3 Glucose (65 - 99 mg/dL) 182 H Calcium (8.4 - 10.2 mg/dL) 9.2 Phosphorus (2.5 - 4.5 mg/dL) 4.0 3.6 Magnesium (1.6 - 2.3 mg/dL) 2.2 2.1 Total Bilirubin (0.2 - 1.3 mg/dL) 0.6 AST (17 - 59 U/L) 17 ALT (21 - 72 U/L) 33 Albumin (3.5 - 5.0 g/dL) 3.6 Hematology CBC w Diff NO MAN DIFF REQ NO MAN DIFF REQ WBC (4.8 - 10.8 /CUMM) 9.1 9.5 RBC (4.70 - 6.10 /CUMM) 4.27 L 4.25 L Hgb (14.0 - 18.0 G/DL) 11.6 L 11.3 L Hct (42 - 52 %) 35.5 L 35.4 L MCV (80.0 - 94.0 FL) 83.0 83.3 MCH (27.0 - 31.0 PG) 27.1 26.5 L RDW (11.5 - 14.5 %) 15.8 H 16.4 H Plt Count (130 - 400 /CUMM) 231 225 MPV (7.4 - 10.4 FL) 6.5 L 6.8 L Gran % (42.2 - 75.2 %) 65.1 68.4 Lymphocytes % (20.5 - 51.1 %) 27.4 23.8 Monocytes % (1.7 - 9.3 %) 6.6 7.0 Eosinophils % (0 - 5 %) 0.6 0.5 Basophils % (0.0 - 2.0 %) 0.3 0.3 Absolute Granulocytes (1.4 - 6.5 /CUMM) 5.9 6.5 Absolute Lymphocytes (1.2 - 3.4 /CUMM) 2.5 2.3 Absolute Monocytes (0.10 - 0.60 /CUMM) 0.6 0.7 H Absolute Eosinophils (0.0 - 0.7 /CUMM) 0.1 0 Absolute Basophils (0.0 - 0.2 /CUMM) 0 0 PUBS MCHC (33.0 - 37.0 G/DL) 32.7 L 31.9 L 10/30 0321 Chemistry Phosphorus Cancelled Magnesium Cancelled Diagnostic Data CXR Results FINDINGS: Left pectoral pacemaker is again noted. The distal pacer leads are not well seen. Cardiomegaly is again noted, similar to prior. No focal consolidation or effusion. No pneumothorax. No acute osseous abnormalities. IMPRESSION: Stable cardiomegaly. No focal consolidation or effusion. Assessment/Plan Assessment/Plan assessment: 1. Atypical chest discomfort 2. COPD exacerbation 3. Nonischemic cardio myopathy with AICD in place 4. Multiple recent gout attacks with nonhealing left foot wound 5. diabetes 6. Sleep apnea 7. Anemia Recommendations: -At this point, the patient appears to be stable from a cardiac standpoint. He has a history of nonischemic cardio myopathy with a defibrillator in place. He has brief episodes of nonsustained VT but has been otherwise stable. -At the present time, I do not believe the patient needs to be on a surveillance system monitor any further. -From a cardiac standpoint, the patient would likely benefit from a pharmacologic nuclear stress test as an outpatient to rule out the possibility of any new ischemic disease, though unlikely. -Considerable care consult to reevaluate the patient's left foot -No need to repeat echocardiogram at the present time. Consult Acknowledgment - Thank you for your consult request.
--- NOTE | 2017-10-31 09:51 | PN- Att Addend ---
Attending Addendum Attending Brief Note Patient seen and examined. Sitting comfortably watching a movie on his tablet. No events overnight. He remains afebrile and hemodynamically stable. He was evaluated by Dr. George yesterday and taken of the front desk monitor. Denies any difficulty breathing. Denies any chest pain. Denies any pain in the lower extremities. Reports some chest discomfort when coughing. He reports the cough was improved. Gen. appearance: Obese, not in acute distress Heart: S1-S2 regular Lungs: Fair entry bilaterally, clear to auscultation Abdomen: Obese, soft, nontender with normal bowel sounds Extremities: Bilateral lower extremity edema. The bed of the right big toenail is erythematous with a bloody discharge. Vital Signs Date Time Temp Pulse Resp B/P B/P Pulse O2 O2 Flow FiO2 Mean Ox Delivery Rate 10/31 0857 98 Nasal 3.5L Cannula 10/31 0800 Nasal 3.5L Cannula 10/31 08 97.1 68 18 118/70 98 Nasal 3.5L Cannula 10/31 0000 96 Nasal 3.5L Cannula 10/30 2321 97.8 64 20 98/68 97 Nasal 3.5L Cannula 10/30 2118 72 142/88 10/30 2007 96 Nasal 3.5L Cannula 10/30 1700 98 Nasal 3.5L Cannula 10/30 1700 98.0 68 20 124/78 98 Nasal 3.5L Cannula 10/30 1102 Nasal 3.5L Cannula Problems: 1. Musculoskeletal chest pain 2. Mild COPD exacerbation 3. Left big toe swelling. 4. Cardiomyopathy with EF of 20% status post biventricular pacer placement following episode of what appeared to be ventricular tachycardia. 5. Chronic kidney disease. Plan: -Chest pain is musculoskeletal in nature. Cardiac enzymes are negative. Patient evaluated by the cardiology service and no further cardiac interventions recommended for now. -He did have a short run of ventricular tachycardia 2 days ago. He had no firing of his AICD. No further cardiac interventions recommended by the cardiology service. -He is stable from respiratory standpoint. He is on his baseline oxygen supplementation. Lungs are clear to auscultation bilaterally. Continue bronchodilator therapy and complete 5 days of oral prednisone. -Currently awaiting podiatry evaluation. Would recommend starting patient on Keflex 500 mg orally twice daily for appears to be cellulitis of the toenail bed on the right big toe. Continue local wound care. -Obtain CT scan to rule out underlying osteomyelitis. Patient is unable to have an MRI due to presence of an AICD. It is noted that his PSA [place] not significantly elevated from the last time he was here. -Imaging on admission raise concern for possible gout. Patient is being continued on colchicine and is also receiving systemic steroid therapy.
--- NOTE | 2017-10-31 11:30 | PN- Housestaff ---
Subjective Follow-up For: Atypical chest pain Mild COPD Exacerbation Chronic gout Subjective: Patient has no acute events overnight Review of Systems Constitutional: Reports: see HPI. Objective Last 24 Hrs of Vital Signs/I&O Vital Signs Date Time Temp Pulse Resp B/P B/P Pulse O2 O2 Flow FiO2 Mean Ox Delivery Rate 10/31 0945 68 118/70 10/31 0857 98 Nasal 3.5L Cannula 10/31 0800 Nasal 3.5L Cannula 10/31 0800 97.1 68 18 118/70 98 Nasal 3.5L Cannula 10/31 0000 96 Nasal 3.5L Cannula 10/30 2321 97.8 64 20 98/68 97 Nasal 3.5L Cannula 10/30 2118 72 142/88 10/30 2006 96 Nasal 3.5L Cannula 10/30 1700 98 Nasal 3.5L Cannula 10/30 1700 98.0 68 20 124/78 98 Nasal 3.5L Cannula Intake & Output 10/31 1600 10/31 0800 10/31 0000 Intake Total 400 600 Output Total Balance 400 600 Intake, IV 0 0 Intake, Oral 400 600 Number 0 0 Bowel Movements Physical Exam General Appearance: Alert, Oriented X3, Cooperative, No Acute Distress HEENT: Atraumatic, PERRLA, EOMI Neck: Supple, No JVD, No thryomegaly Cardiovascular: Regular Rate, Normal S1, Normal S2, No Murmurs Lungs: Clear to Auscultation, Normal Air Movement Abdomen: Normal Bowel Sounds, Soft, No Tenderness Extremities: BLE erythematous and edematous , Desquamation of L plantar foot, lateral nonhealing wound and detached big toenail Current Medications: Current Medications Sig/Keaton Start time Last Medication Dose Route Stop Time Status Admin Acetaminophen 650 MG .STK-MED ONE 10/31 0325 DC PO 10/31 0326 Acetaminophen 650 MG .STK-MED ONE 10/30 1548 DC PO 10/30 1549 Acetaminophen 650 MG Q6-PRN PRN 10/30 1315 AC 10/30 PO 1314 Albuterol Sulfate 3 ML TID 10/30 1600 AC 10/31 INH 0850 Albuterol Sulfate 2 PUF Q4-6 PRN PRN 10/29 0545 AC INH Atorvastatin Calcium 5 MG 1700 10/29 1700 AC 10/30 PO 1852 Budesonide/ 2 PUF BID 10/29 1000 AC 10/31 Formoterol Fumarate INH 0947 Carvedilol 12.5 MG BID 10/29 1000 AC 10/31 PO 0945 Cephalexin 500 MG BID 10/31 1115 AC PO Cephalexin 250 MG BID 10/31 1000 CAN PO 10/31 1200 Colchicine 600 MCG DAILY 10/29 1000 AC 10/31 PO 0945 Febuxostat 40 MG DAILY 10/29 1000 AC 10/31 PO 0946 Ferrous Sulfate 325 MG DAILY 10/29 1000 AC 10/31 PO 0946 Furosemide 40 MG BID 10/29 1000 AC 10/31 PO 0946 Gabapentin 300 MG TID 10/29 1000 AC 10/31 PO 0946 Heparin Sodium 5,000 UNIT Q8 10/29 0600 AC 10/31 (Porcine) SC 0653 Hydroxyzine HCl 100 MG BID 10/29 1000 AC 10/31 PO 0945 Insulin Aspart 0 TIDAC 10/29 1200 AC 10/30 SC 1642 Lisinopril 10 MG DAILY 10/29 1000 AC 10/31 PO 0946 Montelukast Sodium 10 MG 2200 10/29 2200 AC 10/30 PO 2119 Oxycodone/ 1 TAB ONCE ONE 10/30 1900 DC 10/30 Acetaminophen PO 10/30 1901 1856 Oxycodone/ 1 TAB Q6P PRN 10/29 0545 AC 10/31 Acetaminophen PO 0945 Prednisone 40 MG DAILY 10/29 1000 AC 10/31 PO 08 1001 0946 Tiotropium [place] 1 PUF DAILY 10/29 1000 AC 10/31 INH 0946 Last 24 Hrs of Lab/Joaquim Results Last 24 Hrs of Labs/Mics: Laboratory Tests 10/31/17 0439: Anion Gap 9, Estimated GFR 56 L, Glucose 182 H, Calcium 9.2, Phosphorus 4.0, Magnesium 2.2, Total Bilirubin 0.6, AST 17, ALT 33, Albumin 3.6, CBC w Diff NO MAN DIFF REQ, RBC 4.27 L, MCV 83.0, MCH 27.1, RDW 15.8 H, MPV 6.5 L, Gran % 65.1, Lymphocytes % 27.4, Monocytes % 6.6, Eosinophils % 0.6, Basophils % 0.3, Absolute Granulocytes 5.9, Absolute Lymphocytes 2.5, Absolute Monocytes 0.6, Absolute Eosinophils 0.1, Absolute Basophils 0, PUBS MCHC 32.7 L Assessment/Plan Assessment: Mr. Padilla is a 62 yo m with past medical history of heart failure with reduced ejection fraction of 25-30%, mild tricuspid regurg, nonischemic cardiomyopathy status post pacemaker, COPD on 3.5 L of oxygen, obstructive sleep apnea not on CPAP, diabetes, chronic kidney disease, hyperlipidemia, peptic ulcer disease, chronic lower extremity edema, and gout s/p soft tissue debridement of left foot with multiple admissions for persistent gout and COPD exacerbation Atypical chest pain- presentation is inconsistent with cardiac etiology. Likely musculoskeletal or pleuritic secondary to excessive coughing due to COPD exacerbation. ECG/Trop negative for nay acute pathology. Telemetry has been discontinued * Cardiology recommendations appreciated * continue home medications of carvedilol and simvistatin * Patient is stable for GM COPD Exacerbation - patient presents with worsening shortness of breath, low grade fever and productive cough. Patient received 1 dose of Unasyn in the ED. * Continue prednisone 40mg PO * TRC and DuoNeb treatments as needed * continue supplemental oxygen as needed (baseline of 3.5L NC) History of Gout with nonhealing left foot wound- with no evidence of infection at this time and uric acid wnl. * Start Cephalexin for total of 10 days * Podiatry recommendations appreciated * continue home medications of colchicine and febuxostat * CT L foot to r/o osteomyelitis Hsitory of DM and Diabetic neuropathy * hold oral hypoglycemics * insulin sliding scale with accuchecks * continue gabapentin History of HFrEF of 25-30% * Continue carvedilol, lisinopril * Continue lasix for lower extremity edema History of Anemia * Continue iron supplement Diet: Diabetic diet with salt restriction Code: Full code DVT PPx: Heparin SC Problem List: 1. Open wound of left foot 2. COPD exacerbation Pain Ratin Pain Location: L foot Pain Goal: Pain 4 or less Pain Plan: Percocet Tomorrow's Labs & Rationales: CBC, Bundle
--- NOTE | 2017-10-31 15:23 | PN- Cardiology ---
Subjective Subjective: * No verbalized complaints. * creatinine 1.3 Objective Vital Signs and I&Os Vital Signs Date Time Temp Pulse Resp B/P B/P Pulse O2 O2 Flow FiO2 Mean Ox Delivery Rate 10/31 0845 68 118/70 10/31 0857 98 Nasal 3.5L Cannula 10/31 799 Nasal 3.5L Cannula 10/31 799 97.1 68 18 118/70 98 Nasal 3.5L Cannula 10/31 0000 96 Nasal 3.5L Cannula 10/30 2321 97.8 64 20 98/68 97 Nasal 3.5L Cannula 10/30 2118 72 142/88 10/30 2006 96 Nasal 3.5L Cannula 10/30 170 98 Nasal 3.5L Cannula 10/30 1700 98.0 68 20 124/78 98 Nasal 3.5L Cannula Intake & Output 10/31 1600 10/31 0800 10/31 0000 10/30 1600 10/30 0810/30 0000 Intake Total 680 400 600 750 600 Output Total Balance 680 400 600 750 600 Intake, IV 0 0 Intake, Oral 680 400 600 750 600 Number 0 0 Bowel Movements Patient 378 lb Weight Weight Bed scale Measurement Method Physical Exam: General: WD/obese male in NAD; lethargic Heart: RRR Lungs: clear bilaterally Assessment/Plan Assessment/Plan * This patient likely has severe sleep apnea and I suspect he has CO2 retention. * Patient is off the monitor but has an ICD. * Consider CPAP everytime the patient sleeps if there is anyway to arrange for this in his living situation. If not then consider permanent nursing care. Continue telemetry? No
[2017-10-31 16:00] VITALS: BP 126/74
--- NOTE | 2017-10-31 17:30 | CT SCAN REPORT ---
EXAMINATION: CT LOWER EXTREMITY WITHOUT AND WITH CONTRAST, LEFT CLINICAL INFORMATION: Non-healing wound left foot. COMPARISON: Radiographs 10/29/2017. TECHNIQUE: A noncontrast CT of the left foot was performed without and with intravenous administration of 95 mL Optiray 320 iodinated contrast, with sagittal and coronal reformats. DLP: 510 mGy-cm FINDINGS: There is diffuse soft tissue thickening and subcutaneous reticulation suggesting cellulitis. There is diffuse fatty replacement of the intrinsic muscles of the foot, not uncommon in diabetic patients. Diffuse vascular calcifications and areas of chondrocalcinosis. Dystrophic calcifications at the posterior tibialis tendon insertions, and throughout the ankle ligaments. Large heel spur and prominent enthesopathy of the posterior calcaneus. Arthritic changes throughout the ankle and midfoot as well as the hallux sesamoid complex and 1st MTP joint. Arthritic changes with narrowing and cysts of the interphalangeal joints. Normal alignment. No acute fracture. No evidence of osteomyelitis is demonstrated. IMPRESSION: Degenerative changes as described in the comments with dorsal skin thickening and subcutaneous edema suggesting cellulitis. No CT evidence of osteomyelitis. Bone scan or MRI are more sensitive modalities and would be recommended if there is a strong clinical suspicion.
[2017-10-31 23:16] VITALS: BP 124/64
[2017-11-01 08:00] VITALS: BP 108/60
--- NOTE | 2017-11-01 09:01 | PN- Housestaff ---
Ed Herrmann 11/01/17 0901: Subjective Follow-up For: Atypical chest pain COPD Exacerbation Chronic gout Subjective: Patient was seen and examined. He is more concerned about the wound on his left foot. He states that his problem has been going on for the past 6 months, the wound never healed well and recently his first toenail fell off. He had follow-up with ion Sharma as outpatient and underwent multiple surgical procedures. Otherwise, he denies any headache, dizziness, lightheadedness, chest pain, shortness of breath, abdominal pain, urinary symptoms. Review of Systems Constitutional: Reports: no symptoms. Objective Last 24 Hrs of Vital Signs/I&O Vital Signs Date Time Temp Pulse Resp B/P B/P Pulse O2 O2 Flow FiO2 Mean Ox Delivery Rate 11/01 0955 70 122/70 11/01 0811 98 Nasal 3.5L Cannula 11/01 799 Nasal 3.5L Cannula 11/01 799 97.1 70 18 108/60 93 Nasal 3.5L Cannula 11/01 0000 97 Nasal 3.5L Cannula 10/31 2316 97.0 60 16 124/64 96 Nasal 3.5L Cannula 10/31 2115 68 142/80 10/31 2015 96 Nasal 3.5L Cannula 10/31 1600 97 Nasal 3.5L Cannula 10/31 1600 98.2 76 18 126/74 97 Nasal 3.5L Cannula Intake & Output 11/01 1600 11/01 0800 11/01 0000 Intake Total 240 800 Output Total Balance 240 800 Intake, IV 0 0 Intake, Oral 240 800 Number 0 0 Bowel Movements Physical Exam General Appearance: Alert, Cooperative, No Acute Distress Skin: Chronic venous stasis skin changes in both lower extremities., fissures on plantar aspect of the left hallux, Detached hallux nail HEENT: Atraumatic, Mucous Membr. moist/pink Neck: Supple Cardiovascular: Regular Rate, Normal S1, Normal S2, No Murmurs, Gallops, Rubs Lungs: Clear to Auscultation, Normal Air Movement Extremities: decreased dorsalis pedis pulsation in both lower extremities., bilateral pedal edema, decreased sensation in the forefoot and midfoot. Current Medications: Current Medications Sig/Keaton Start time Last Medication Dose Route Stop Time Status Admin Acetaminophen 650 MG Q6-PRN PRN 10/30 1315 AC 10/30 PO 1314 Albuterol Sulfate 3 ML TID 10/30 1600 AC 11/01 INH 0809 Albuterol Sulfate 2 PUF Q4-6 PRN PRN 10/29 0545 AC INH Ammonium Lactate 1 IDANIA BID 11/01 1216 AC TOP Atorvastatin Calcium 5 MG 1700 10/29 1700 AC 10/31 PO 1656 Budesonide/ 2 PUF BID 10/29 1000 AC 11/01 Formoterol Fumarate INH 0955 Carvedilol 12.5 MG BID 10/29 1000 AC 11/01 PO 0955 Cephalexin 500 MG BID 10/31 1115 AC 11/01 PO 0955 Colchicine 600 MCG DAILY 10/29 1000 AC 11/01 PO 0954 Febuxostat 40 MG DAILY 10/29 1000 AC 11/01 PO 0954 Ferrous Sulfate 325 MG DAILY 10/29 1000 AC 11/01 PO 0955 Furosemide 40 MG BID 10/29 1000 AC 11/01 PO 0955 Gabapentin 300 MG TID 10/29 1000 AC 11/01 PO 0955 Heparin Sodium 5,000 UNIT Q8 10/29 0600 AC 11/01 (Porcine) SC 0610 Hydroxyzine HCl 100 MG BID 10/29 1000 AC 11/01 PO 0954 Insulin Aspart 0 TIDAC 10/29 1200 AC 11/01 SC 1206 Lisinopril 10 MG DAILY 10/29 1000 AC 11/01 PO 0955 Montelukast Sodium 10 MG 2200 10/29 2200 AC 10/31 PO 2116 Oxycodone/ 1 TAB Q6P PRN 10/29 0545 AC 11/01 Acetaminophen PO 1244 Prednisone 40 MG DAILY 10/29 1000 AC 11/01 PO 08 1001 0955 Tiotropium [place] 1 PUF DAILY 10/29 1000 AC 11/01 INH 0955 Assessment/Plan Assessment: Mr. Padilla is a 62 yo m with past medical history of heart failure with reduced ejection fraction of 25-30%, mild tricuspid regurg, nonischemic cardiomyopathy status post pacemaker, COPD on 3.5 L of oxygen, obstructive sleep apnea not on CPAP, diabetes, chronic kidney disease, hyperlipidemia, peptic ulcer disease, chronic lower extremity edema, and gout s/p soft tissue debridement of left foot with multiple admissions for persistent gout and COPD exacerbation. #Atypical chest pain: * Now resolved * Presentation was inconsistent with cardiac etiology. Was thought to be likely musculoskeletal or pleuritic secondary to excessive coughing due to COPD exacerbation. ECG/Trop negative for nay acute pathology. Telemetry has been discontinued * Cardiology recommendations appreciated * Continue home medications of carvedilol and simvistatin * GM told #COPD exacerbation: * Patient presented with worsening shortness of breath, low grade fever and productive cough. Patient received 1 dose of Unasyn in the ED. * Continue prednisone 40mg PO total of 5 day course * TRC and DuoNeb treatments as needed * Continue supplemental oxygen as needed (baseline of 3.5L NC) #History of Gout with nonhealing left foot wound- with no evidence of infection at this time and uric acid wnl. * Was satarted on Prilosec treatment with Cephalexin for total of 10 days * Podiatry recommendations appreciated * Continue home medications of colchicine and febuxostat * CT L foot negative for osteomyelitis * Awaiting wound care evaluation. #Hsitory of DM and Diabetic neuropathy * Hold oral hypoglycemics * Insulin sliding scale with accuchecks * Continue gabapentin #History of HFrEF of 25-30% * Continue carvedilol, lisinopril * Continue lasix for lower extremity edema #History of Anemia * Continue iron supplement #Diet: Diabetic diet with salt restriction #Code Status : Full code #DVT PPx: Heparin SC Problem List: 1. COPD with acute exacerbation 2. Gout 3. Open wound Pain Ratin Pain Location: NA Pain Goal: Remain pain free Pain Plan: NA Tomorrow's Labs & Rationales: None Bonilla HARPER,Damari 11/01/17 1049: Attending MD Review Statement Attending Statement Attending MD Statement: examined this patient, discuss w/resident/PA/[employer] DYER, agreed w/resident/PA/[employer] DYER, reviewed EMR data (avail), discussed with nursing, amended to note Attending Assessment/Plan: Patient seen and examined. Lying comfortably in bed not in any acute distress. No issues overnight reported by nursing staff. No new complaints from patient. 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 Concerned about why his toenail fell off. He remains afebrile hemodynamically stable. CT scan of the collection which was done yesterday shows no evidence of osteomyelitis. It did show subcutaneous edema suggesting cellulitis. Gen. appearance: Obese, not in any respiratory distress Heart: S1-S2 regular Lungs: Fair entry bilaterally but it sounds are regular respiratory effort however with deep breaths he does develop rhonchi. Abdomen: Soft, nontender with normal bowel sounds Extremities bilateral lower extremity edema. Intact dressing over the left foot. Problems: 1. Musculoskeletal chest pain 2. Mild COPD exacerbation 3. Left big toe swelling: Probable cellulitis 4. Cardiomyopathy with EF of 20% status post biventricular pacer placement following episode of what appeared to be ventricular tachycardia. 5. Chronic kidney disease. Plan: -Patient was empirically started on Keflex for presumed cellulitis of the left foot. Complete 10 day antibiotic course. Awaiting evaluation by watch repair person podiatry service. -Continue bronchodilator therapy. Complete 5 day course of oral prednisone therapy. -Mobilize patient as tolerated. -Recommend wound care consultation as well for wound care recommendations upon discharge.
--- NOTE | 2017-11-01 12:17 | Cons- Podiatry ---
General Information and HPI Consulting Request Date of Consult: 11/01/17 Requested By: Damari Crystal MD Reason for Consult: Skin lesion, left foot Source of Information: patient Exam Limitations: no limitations History of Present Illness: This is a 62-year-old morbidly obese diabetic male with multiple medical problems who was admitted on October 29 with the complaint of chest pain shortness of breath. He has an extensive cardiac history status post pacemaker. He has a history of COPD and is on 3.5 L of oxygen per minute. He has a history of obstructive sleep apnea but is not on CPAP. He has a history of congestive heart failure with an ejection fraction of 25-30%, with chronic bilateral lower extremity edema, left worse than right. Podiatry is consulted for what is subjectively reported by the patient is worsening skin lesions on the left foot. He has a history of a superinfected gout attack on the medial aspect of the left first metatarsophalangeal joint, that was treated by Angus Sharma DPM to resolution. This required multiple surgical procedures and extensive local wound care and antibiotic therapy. The patient reports that on the date of admission, while showing the pictures of such findings that he recorded himself on a tablet, that he had skin buildup and fissures in the digital sulci as well as the plantar aspect of left hallux. The patient is seen and evaluated at bedside in no apparent distress, afebrile, with vital signs stable, denying fever, chills, nausea, vomiting, diaphoresis, chest pain, and shortness of breath on my examination. Allergies/Medications Allergies: Coded Allergies: No Known Allergies (10/05/17) Home Med List: Albuterol Sulfate (Proair Hfa) 90 MCG HFA.AER.AD 2 PUF INH Q4-6 PRN PRN COPD (Reported) Carvedilol 12.5 MG TABLET 1 TAB PO BID HEART (Reported) Colchicine (Colcrys) 0.6 MG TABLET 1 TAB PO DAILY GOUT (Reported) Febuxostat (Uloric) 40 MG TABLET 40 MG PO DAILY Gout Ferrous Sulfate 325 MG (65 MG IRON) TABLET 1 TAB PO DAILY anemia Fluticasone/Salmeterol (Advair 500-50 Diskus) 500 MCG-50 MCG/DOSE BLST.W.DEV 1 PUF INH BID COPD (Reported) Furosemide (Lasix) 40 MG TABLET 1 TAB PO BID DIURETIC (Reported) Gabapentin 300 MG CAPSULE 1 CAP PO TID NEUROPATHY (Reported) Glimepiride 1 MG TABLET 1 TAB PO BID DM (Reported) Hydroxyzine Hydrochloride (Atarax) 50 MG TABLET 2 TAB PO BID MUCUS (Reported) Ipratropium/Albuterol Sulfate (Combivent Respimat Inhal [place]) 20 MCG-100 MCG/ ACTUATION MIST.INHAL 2 PUFF INH BID copd (Reported) Lisinopril 10 MG TABLET 1 TAB PO DAILY BP (Reported) Metformin HCl (Glucophage) 1,000 MG TABLET 1 TAB PO BID DM (Reported) Montelukast Sodium (Singulair) 10 MG TABLET 1 TAB PO DAILY RESPIRATORY ( Reported) Oxycodone HCl/Acetaminophen (Percocet 10-325 MG Tablet) 10 MG-325 MG TABLET 1 TAB PO TID PRN PAIN (Reported) Simvastatin (Simvastatin*) 10 MG TABLET 1 TAB PO QPM CHOLESTEROL (Reported) Umeclidinium [place] (Incruse Ellipta) 62.5 MCG/ACTUATION BLST.W.DEV 1 PUFF INH DAILY COPD (Reported) Current Medications: Current Medications Sig/Keaton Start time Last Medication Dose Route Stop Time Status Admin Acetaminophen 650 MG Q6-PRN PRN 10/30 1315 AC 10/30 PO 1314 Albuterol Sulfate 3 ML TID 10/30 1600 AC 11/01 INH 0809 Albuterol Sulfate 2 PUF Q4-6 PRN PRN 10/29 0545 AC INH Atorvastatin Calcium 5 MG 1700 10/29 1700 AC 10/31 PO 1656 Budesonide/ 2 PUF BID 10/29 1000 AC 11/01 Formoterol Fumarate INH 0955 Carvedilol 12.5 MG BID 10/29 1000 AC 11/01 PO 0955 Cephalexin 500 MG BID 10/31 1115 AC 11/01 PO 0955 Colchicine 600 MCG DAILY 10/29 1000 AC 11/01 PO 0954 Febuxostat 40 MG DAILY 10/29 1000 AC 11/01 PO 0954 Ferrous Sulfate 325 MG DAILY 10/29 1000 AC 11/01 PO 0955 Furosemide 40 MG BID 10/29 1000 AC 11/01 PO 0955 Gabapentin 300 MG TID 10/29 1000 AC 11/01 PO 0955 Heparin Sodium 5,000 UNIT Q8 10/29 0600 AC 01/07 (Porcine) SC 0610 Hydroxyzine HCl 100 MG BID 10/29 1000 AC 11/01 PO 0954 Insulin Aspart 0 TIDAC 10/29 1200 AC 11/01 SC 1206 Lisinopril 10 MG DAILY 10/29 1000 AC 11/01 PO 0955 Montelukast Sodium 10 MG 2200 10/29 2200 AC 10/31 PO 2116 Oxycodone/ 1 TAB Q6P PRN 10/29 0545 AC 11/01 Acetaminophen PO 0633 Prednisone 40 MG DAILY 10/29 1000 AC 11/01 PO 11/02 1001 0955 Tiotropium [place] 1 PUF DAILY 10/29 1000 AC 11/01 INH 0955 Past History Medical History Blood Transfusion Hx: Yes Neurological: NONE EENT: NONE Cardiovascular: cardiomyopathy, CHF, chronic venous insuff, hyperlipidemia, CARDIAC ARREST S/P LWC PACER Respiratory: COPD, SLEEP APNEA O2 3.5L NC @ BASELINE Gastrointestinal: constipation, peptic ulcer disease, EGD 08/10 showed numerous gastric and duodenal ulcers Hepatic: NONE Renal: benign prost hyperplasia, TEMPORORY DIALYSIS Musculoskeletal: gout, rheumatoid arthritis Psychiatric: NONE Endocrine: diabetes Blood Disorders: anemia Cancer(s): NONE 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 Other Who Do You Live With? self Services at Home: Oxygen Primary Language: [place] Smoking Status: Never Smoked Functional Ability ADLs Independent: dressing, eating, toileting, bathing. Ambulation: independent IADLs Independent: shopping, housework, finances, food prep, telephone, transportation , medication admin. Review of Systems Review of Systems: A 14 point review of systems was performed, and was found to be negative apart from the patient's complaints described above in the history of present illness. Exam & Diagnostic Data Vital Signs and I&O Vital Signs Date Time Temp Pulse Resp B/P B/P Pulse O2 O2 Flow FiO2 Mean Ox Delivery Rate 11/01 954 70 122/70 11/01 0811 98 Nasal 3.5L Cannula 11/01 799 Nasal 3.5L Cannula 11/01 799 97.1 70 18 108/60 93 Nasal 3.5L Cannula 11/01 0000 97 Nasal 3.5L Cannula 10/31 2316 97.0 60 16 124/64 96 Nasal 3.5L Cannula 10/315 68 142/80 10/31 2015 96 Nasal 3.5L Cannula 10/31 1599 97 Nasal 3.5L Cannula 10/31 1599 98.2 76 18 126/74 97 Nasal 3.5L Cannula Intake & Output 11/01 1600 11/01 0800 11/01 0000 10/31 1600 10/31 0000 Intake Total 240 800 680 400 600 Output Total Balance 240 800 680 400 600 Intake, IV 0 0 0 0 Intake, Oral 240 800 680 400 600 Number 0 0 0 0 Bowel Movements Physical Exam: Patient is a morbidly obese body habitus. He has extensive hyperpigmentation of both legs in the gaiter region consistent with chronic venous insufficiency. He has +1 bilateral nonpitting edema both lower extremities, dorsalis pedis and posterior tibial pulses are 1 out of 4 bilaterally, normal temperature gradient both lower extremities, capillary refill time is 3 seconds in all 10 toes. Patient has significantly diminished sensation in the forefoot and midfoot equal and bilateral. He has extensive xerosis of the plantar aspect of both feet, with resultant pair of fissures on the plantar aspect the left hallux which are only partial thickness and do not exhibit any acute signs of infection. The digital sulci and interdigital spaces are free of such lesions and there is some moderate scaling of skin circumferentially in the left forefoot apart from these areas. Patient has a pes planus foot type bilaterally with mild flexor stabilization hammertoes 2 through 5 bilaterally. Imaging Results: EXAM TYPE: RAD - XRY-FOOT COMPLETE, LEFT EXAMINATION: XR FOOT, LEFT CLINICAL INFORMATION: Left foot swelling, pain, discharge. Recent incision and drainage. COMPARISON: Left foot radiographs dated 09/09/2017. TECHNIQUE: AP, lateral, and oblique views of the left foot. FINDINGS: There are redemonstrated linear radiodensities overlying the lateral aspect of the first proximal phalanx and the medial aspect of the fourth proximal phalanx. There are redemonstrated well-defined corticated juxta-articular erosive changes at the first metacarpal phalangeal joint. Additional erosive change is noted within the joint. Juxta-articular erosive changes are also seen at the first interphalangeal joint. No soft tissue calcification is appreciated. No fracture or dislocation. No focal soft tissue swelling or ulceration is identified on the provided images. No suspicious areas of osteolytic change to strongly suggest osteomyelitis. Calcaneal heel spurs are noted. IMPRESSION: 1. No focal soft tissue swelling or ulceration can be identified on the provided images. No suspicious areas of osteolytic change to strongly suggest osteomyelitis. 2. Redemonstrated juxtacortical and intra-articular erosive changes at the first metatarsophalangeal joint and first interphalangeal joint. Appearance is unchanged and again concerning for underlying gout. 3. Stable linear radiodensities overlying the lateral aspect of the first proximal phalanx and medial aspect of the fourth proximal phalanx which are unchanged and of indeterminant etiology. I also personally reviewed the radiographs, and found the first ray to have extensive periarticular erosions, subchondral sclerosis, and nonuniform joint space narrowing consistent with osteoarthritis and a long history of gout. Assessment/Plan Assessment/Plan 62-year-old morbidly obese diabetic male with a history of ulceration, history of peripheral neuropathy, an extensive cardiac history, and COPD and JORY, with xerotic fissures of the left foot The patient was seen and evaluated at bedside. Radiographs were reviewed. The patient does not exhibit any acute signs of infection, acute signs of gout, or any significant open lesion. The most likely explanation for the fissures is an autonomic component of his diabetic peripheral neuropathy, and I am recommending that he sees his current [id number] emollients for a prescription grade topical medication such as ammonium lactate 12%, and this should be continued as an outpatient and definitely as a means of maintenance for his diabetic peripheral neuropathy. The patient may continue to follow up in the wound care center with Angus Sharma DPM, and I will be available for further discussion on the matter at [phone]. Please reconsult as needed. Consult Acknowledgment - Thank you for your consult request.
[2017-11-01 16:00] VITALS: BP 138/70
[2017-11-01 22:00] VITALS: BP 122/84
[2017-11-02 06:00] VITALS: BP 122/76
--- NOTE | 2017-11-02 07:39 | PN- Housestaff ---
Roxanne Cavanaugh 11/02/17 0739: Subjective Follow-up For: Atypical chest pain COPD Exacerbation Chronic gout Subjective: Patient has no complaints. No acute events overnight Review of Systems Constitutional: Reports: see HPI. Objective Last 24 Hrs of Vital Signs/I&O Vital Signs Date Time Temp Pulse Resp B/P B/P Pulse O2 O2 Flow FiO2 Mean Ox Delivery Rate 11/02 0915 80 126/74 11/02 0915 80 126/74 11/02 0800 95 Nasal 3.5L Cannula 11/02 0750 99 Nasal 3.5L Cannula 11/02 06 97.2 60 20 122/76 98 Nasal 3.5L Cannula 11/02 0000 Nasal 3.5L Cannula 11/01 2200 98.0 69 20 122/84 97 Nasal 3.5L Cannula 11/01 2121 86 122/84 11/01 2113 94 Nasal 3.5L Cannula Intake & Output 11/02 1600 11/02 0800 11/02 0000 Intake Total 480 600 120 Output Total 3 Balance 480 597 120 Intake, IV 0 Intake, Oral 480 600 120 Output, Urine 3 Patient 376 lb Weight Physical Exam General Appearance: Alert, Oriented X3, Cooperative HEENT: Atraumatic, PERRLA, EOMI Neck: Supple, No JVD, No thryomegaly Cardiovascular: Regular Rate, Normal S1, Normal S2, No Murmurs Lungs: Clear to Auscultation, Normal Air Movement Abdomen: Normal Bowel Sounds, Soft, No Tenderness Extremities: Healing L foot, no erythema, warmth, drainage Current Medications: Current Medications Sig/Keaton Start time Last Medication Dose Route Stop Time Status Admin Acetaminophen 650 MG Q6-PRN PRN 10/30 1315 AC 10/30 PO 1314 Albuterol Sulfate 3 ML TID 10/30 1600 AC 11/02 INH 1324 Albuterol Sulfate 2 PUF Q4-6 PRN PRN 10/29 0545 AC INH Ammonium Lactate 1 IDANIA BID 11/01 1216 AC 11/02 TOP 0911 Atorvastatin Calcium 5 MG 1700 10/29 1700 AC 11/01 PO 1705 Budesonide/ 2 PUF BID 10/29 1000 AC 11/02 Formoterol Fumarate INH 0913 Carvedilol 12.5 MG BID 10/29 1000 AC 11/02 PO 0915 Cephalexin 500 MG BID 01/06 1115 AC 11/02 PO 0913 Colchicine 600 MCG DAILY 10/29 1000 AC 11/02 PO 0913 Febuxostat 40 MG DAILY 10/29 1000 AC 11/02 PO 0914 Ferrous Sulfate 325 MG DAILY 10/29 1000 AC 11/02 PO 0913 Furosemide 40 MG BID 10/29 1000 AC 11/02 PO 0913 Gabapentin 300 MG TID 10/29 1000 AC 11/02 PO 0914 Heparin Sodium 5,000 UNIT Q8 10/29 0600 AC 11/02 (Porcine) SC 0557 Hydroxyzine HCl 100 MG BID 10/29 1000 AC 11/02 PO 0913 Insulin Aspart 0 TIDAC 10/29 1200 AC 11/02 SC 1200 Lisinopril 10 MG DAILY 10/29 1000 AC 11/02 PO 0915 Montelukast Sodium 10 MG 2200 10/29 2200 AC 11/01 PO 2120 Oxycodone/ 1 TAB Q6P PRN 10/29 0545 AC 11/02 Acetaminophen PO 1445 Prednisone 40 MG DAILY 10/29 1000 DC 11/02 PO 11/02 1001 0914 Tiotropium [place] 1 PUF DAILY 10/29 1000 AC 11/02 INH 0912 Assessment/Plan Assessment: Mr. Padilla is a 62 yo m with past medical history of heart failure with reduced ejection fraction of 25-30%, mild tricuspid regurg, nonischemic cardiomyopathy status post pacemaker, COPD on 3.5 L of oxygen, obstructive sleep apnea not on CPAP, diabetes, chronic kidney disease, hyperlipidemia, peptic ulcer disease, chronic lower extremity edema, and gout s/p soft tissue debridement of left foot with multiple admissions for persistent gout and COPD exacerbation. Patient is stable for discharge. #Atypical chest pain: - resolved * Presentation was inconsistent with cardiac etiology. Was thought to be likely musculoskeletal or pleuritic secondary to excessive coughing due to COPD exacerbation. ECG/Trop negative for any acute pathology. Telemetry has been discontinued * Cardiology recommendations appreciated * Continue home medications of carvedilol and simvastatin #COPD exacerbation: * Patient presented with worsening shortness of breath, low grade fever and productive cough. Patient received 1 dose of Unasyn in the ED. * Continue prednisone 40mg PO total of 5 day course, today 02/27 * TRC and DuoNeb treatments as needed * Continue supplemental oxygen as needed (baseline of 3.5L NC) #History of Gout with nonhealing left foot wound- with no evidence of infection at this time and uric acid wnl. * Discontinue Cephalexin * Podiatry recommendations appreciated * Continue home medications of colchicine and febuxostat * CT L foot negative for osteomyelitis * Apply Ammonium lactate BID #Hsitory of DM and Diabetic neuropathy * Hold oral hypoglycemics * Insulin sliding scale with accuchecks * Continue gabapentin #History of HFrEF of 25-30% * Continue carvedilol, lisinopril * Continue lasix for lower extremity edema #History of Anemia * Continue iron supplement #Diet: Diabetic diet with salt restriction #Code Status : Full code #DVT PPx: Heparin SC Problem List: 1. Open wound of left foot 2. COPD exacerbation Pain Ratin Pain Location: L foot Pain Goal: Pain 4 or less Pain Plan: Acetaminophen, Percocet Tomorrow's Labs & Rationales: None Bonilla HARPER,Damari 11/02/17 0936: Attending MD Review Statement Attending Statement Attending MD Statement: examined this patient, discuss w/resident/PA/SHOW HOST, agreed w/resident/PA/SHOW HOST, reviewed EMR data (avail), discussed with nursing, discussed with case mgmt, amended to note Attending Assessment/Plan: Patient seen and examined. Resting comfortably not in acute distress. No issues overnight reported by nursing staff. Patient remains afebrile hemodynamically stable. He was evaluated by the podiatry service yesterday. Per the podiatry evaluation patient has no evidence of infection or acute gout attack. Examination today patient remains stable on oxygen supplementation. He is not in any respiratory distress. His lower extremities do not appear as dry compared to presentation. There is no erythema. There is no discharge. The nail bed of the big toe on the left shows a little erythema today with no discharge. Recommendations: -Complete prednisone therapy for his mild COPD exacerbation. -No evidence of active infection clinically or on radiologic imaging. Discontinue antibiotic therapy. -Follow-up with the wound care service for wound care recommendations. -Patient is clinically stable to be discharged home today.
[2017-11-02] MEDS ORDERED: CEPHALEXIN250 M2 PO (08:02)
[2017-11-02] MEDS ORDERED: AMMONIUM LACTA385 GM TP ×2 (08:02→11:54)
--- NOTE | 2017-11-02 08:04 | Patient Discharge Instructions ---
Discharge Instructions General Discharge Information You were seen/treated for: L foot cellulitis COPD exacerbation You had these procedures: None Special Instructions: Follow up with your Sports Intern for a stress test as an outpatient Follow up with your Diet Consultant upon discharge for L foot Follow up with wound care upon discharge for L foot Diet Continue normal diet: Yes Activity Other activity limits: As tolerated Acute Coronary Syndrome Inclusion Criteria At DC or during hospital stay patient has or had the following: ACS DIAGNOSIS No Discharge Core Measures Meds if any: Prescribed or Continued at Discharge Meds if any: NOT Prescribed or Continued at Discharge Congestive Heart Failure Inclusion Criteria At DC or during hospital stay patient has or had the following: CHF DIAGNOSIS No Discharge Core Measures Meds if any: Prescribed or Continued at Discharge Meds if any: NOT Prescribed or Continued at Discharge Cerebrovascular accident Inclusion Criteria At DC or during hospital stay patient has or had the following: CVA/TIA Diagnosis No Discharge Core Measures Meds if any: Prescribed or Continued at Discharge Meds if any: NOT Prescribed or Continued at Discharge Venous thromboembolism Inclusion Criteria VTE Diagnosis No VTE Type NONE VTE Confirmed by (Test) NONE Discharge Core Measures - Per Current guidelines, there needs to be overlap - treatment for the first 5 days of Warfarin therapy. - If discharged on Warfarin prior to 5 days of - overlap therapy, the patient will need to be - assessed for post discharge needs including - *Post discharge parental anticoagulation - *Warfarin and/or parental anticoagulation education - *Follow up date to check INR post discharge At least 5 days overlap therapy as Inpatient No Meds if any: Prescribed or Continued at Discharge Note: Overlap Therapy is Warfarin and Anticoagulant Meds if any: NOT Prescribed or Continued at Discharge
[2017-11-02 09:15] VITALS: BP 126/74
--- NOTE | 2017-11-02 12:19 | PN- Podiatry ---
Subjective Subjective: 62-year-old male with type 2 diabetes, morbid obesity, multiple medical problems was seen and evaluated for follow up on skin fissures of the left foot. The patient was placed on ammonium lactate starting yesterday, and has already reported mild improvement in the skin lesions. Review of Systems: A 14 point review of systems was performed, and was found to be negative apart from the patient's complaints described above in the history of present illness. Objective Vital Signs and I&Os Vital Signs Date Time Temp Pulse Resp B/P B/P Pulse O2 O2 Flow FiO2 Mean Ox Delivery Rate 11/02 0815 80 126/74 11/02 0915 80 126/74 11/02 0750 99 Nasal 3.5L Cannula 11/02 0600 97.2 60 20 122/76 98 Nasal 3.5L Cannula 11/02 0000 Nasal 3.5L Cannula 11/01 2200 98.0 69 20 122/84 97 Nasal 3.5L Cannula 11/01 2121 86 122/84 11/01 2113 94 Nasal 3.5L Cannula 11/01 1600 94 Nasal 3.5L Cannula 11/01 1600 97.8 72 20 138/70 94 Nasal 3.5L Cannula Intake & Output 11/02 1600 11/02 0800 11/02 0000 11/01 1600 11/01 0800 11/01 0000 Intake Total 600 120 800 240 800 Output Total 3 Balance 597 120 800 240 800 Intake, IV 0 0 Intake, Oral 600 120 800 240 800 Number 0 0 Bowel Movements Output, Urine 3 Physical Exam: The patient demonstrates improvement in the scaling of the skin circumferentially and the left forefoot and of the fissures on the plantar aspect left hallux. This is minimal, and is as best as could be expected for 1 day of treatment. His other exam findings are unchanged from 11/01/2017. Current Medications: Current Medications Sig/Keaton Start time Last Medication Dose Route Stop Time Status Admin Acetaminophen 650 MG Q6-PRN PRN 10/30 1315 AC 10/30 PO 1314 Albuterol Sulfate 3 ML TID 10/30 1600 AC 11/02 INH 0750 Albuterol Sulfate 2 PUF Q4-6 PRN PRN 10/29 0545 AC INH Ammonium Lactate 1 IDANIA BID 11/01 1216 AC 11/02 TOP 0911 Atorvastatin Calcium 5 MG 1700 10/29 1700 AC 11/01 PO 1705 Budesonide/ 2 PUF BID 10/29 1000 AC 11/02 Formoterol Fumarate INH 0913 Carvedilol 12.5 MG BID 10/29 1000 AC 11/02 PO 0915 Cephalexin 500 MG BID 10/31 1115 AC 11/02 PO 0913 Colchicine 600 MCG DAILY 10/29 1000 AC 11/02 PO 0913 Febuxostat 40 MG DAILY 10/29 1000 AC 11/02 PO 0914 Ferrous Sulfate 325 MG DAILY 10/29 1000 AC 11/02 PO 0913 Furosemide 40 MG BID 10/29 1000 AC 11/02 PO 0913 Gabapentin 300 MG TID 10/29 1000 AC 11/02 PO 0914 Heparin Sodium 5,000 UNIT Q8 10/29 0600 AC 11/02 (Porcine) SC 0557 Hydroxyzine HCl 100 MG BID 10/29 1000 AC 11/02 PO 0913 Insulin Aspart 0 TIDAC 10/29 1200 AC 11/01 SC 1706 Lisinopril 10 MG DAILY 10/29 1000 AC 11/02 PO 0915 Montelukast Sodium 10 MG 2200 10/29 2200 AC 11/01 PO 2120 Oxycodone/ 1 TAB Q6P PRN 10/29 0545 AC 11/02 Acetaminophen PO 0813 Prednisone 40 MG DAILY 10/29 1000 DC 11/02 PO 11/02 1001 0914 Tiotropium [place] 1 PUF DAILY 10/29 1000 AC 11/02 INH 0912 Assessment/Plan Assessment/Plan 62-year-old morbidly obese diabetic male with a history of left foot infections, and a history of chronic gout, with improving xerosis and skin fissures of the left forefoot. The patient was again seen and evaluated in the intensive care unit today, and I 'm recommending that he continue the ammonium lactate both during this admission , and as an outpatient. The lesions demonstrate no signs of acute infection, and his clinical and radiographic changes around the joints of the first ray are indicative of chronic gout. I have discussed the case with the primary team yesterday, who told me that he is already being treated with allopurinol. Please reconsult as necessary.
--- NOTE | 2017-11-02 14:18 | Discharge Summary ---
Visit Information Visit Dates Admission Date: 10/29/17 Discharge Date: 11/02/17 Hospital Course Course Attending Physician: Damari Crystal MD Primary Care Physician: Carlee Mooney APRN Allergies: Coded Allergies: No Known Allergies (10/05/17) Pertinent Lab Results: 10/31/17 CT LOWER EXT W&WO IV CONTRAST IMPRESSION: Degenerative changes as described in the comments with dorsal skin thickening and subcutaneous edema suggesting cellulitis. No CT evidence of osteomyelitis. Bone scan or MRI are more sensitive modalities and would be recommended if there is a strong clinical suspicion. 10/29/17 XRY-FOOT COMPLETE, LEFT IMPRESSION: 1. No focal soft tissue swelling or ulceration can be identified on the provided images. No suspicious areas of osteolytic change to strongly suggest osteomyelitis. 2. Redemonstrated juxtacortical and intra-articular erosive changes at the first metatarsophalangeal joint and first interphalangeal joint. Appearance is unchanged and again concerning for underlying gout. 3. Stable linear radiodensities overlying the lateral aspect of the first proximal phalanx and medial aspect of the fourth proximal phalanx which are unchanged and of indeterminant etiology. 10/29/17 XRY-PORTABLE CHEST XRAY FINDINGS: Left pectoral pacemaker is again noted. The distal pacer leads are not well seen. Cardiomegaly is again noted, similar to prior. No focal consolidation or effusion. No pneumothorax. No acute osseous abnormalities. IMPRESSION: Stable cardiomegaly. No focal consolidation or effusion. Disposition Summary Disposition Principal Diagnosis: L foot cellulitis Additional Diagnosis: Acute hypoxic respiratory failure 2/2 COPD exacerbation Discharge Disposition: home or self care Discharge Instructions General Discharge Information Code Status: Full Code Patient's Diet: Regular Patient's Activity: As tolerated Follow-Up Instructions/Appts: Follow up with your [employer] Principal for a stress test as an outpatient Follow up with your Business Professor upon discharge for L foot Follow up with wound care upon discharge for L foot Medications at Discharge Discharge Medications: Continue taking these medications: Umeclidinium [place] (Incruse Ellipta) 62.5 MCG/ACTUATION BLST.W.DEV 1 PUFF Inhale through mouth DAILY Qty = 90 Comments: NOT GIVEN IN HOSPITAL Carvedilol (Carvedilol) 12.5 MG TABLET 1 Tablet ORAL TWICE DAILY Comments: Last Taken: 11/02/17 Time: 10 AM Albuterol Sulfate (Proair Hfa) 90 MCG HFA.AER.AD 2 Puff Inhale through mouth EVERY 4-6 HOURS NEEDED as needed for COPD Comments: NOT TAKEN IN HOSPITAL Glimepiride (Glimepiride) 1 MG TABLET 1 Tablet ORAL TWICE DAILY Comments: NOT GIVEN IN HOSPITAL INSULIN GIVEN NEEDED PER SCALE Montelukast Sodium (Singulair) 10 MG TABLET 1 Tablet ORAL DAILY Comments: Last Taken: 11/01/17 Time: 10 PM Metformin HCl (Glucophage) 1,000 MG TABLET 1 Tablet ORAL TWICE DAILY Comments: NOT GIVEN IN HOSPITAL Furosemide (Lasix) 40 MG TABLET 1 Tablet ORAL TWICE DAILY Comments: Last Taken: 11/02/17 Time: 10 AM Ipratropium/Albuterol Sulfate (Combivent Respimat Inhal [place]) 20 MCG-100 MCG/ ACTUATION MIST.INHAL 2 PUFF Inhale through mouth TWICE DAILY Qty = 8 Comments: NOT TAKEN WHILE IN HOSPITAL Hydroxyzine Hydrochloride (Atarax) 50 MG TABLET 2 Tablet ORAL TWICE DAILY Qty = 120 Comments: Last Taken: 11/02/17 Time: 10 A.M. Lisinopril (Lisinopril) 10 MG TABLET 1 Tablet ORAL DAILY Qty = 90 Comments: Last Taken: 11/02/17 Time: 10AM Ferrous Sulfate (Ferrous Sulfate) 325 MG (65 MG IRON) TABLET 1 Tablet ORAL DAILY Qty = 30 Comments: Last Taken: 11/02/17 Time:10 A.M. Simvastatin (Simvastatin*) 10 MG TABLET 1 Tablet ORAL Every night Qty = 90 Comments: Last Taken: 11/01/17 Time: 5PM Gabapentin (Gabapentin) 300 MG CAPSULE 1 Capsule ORAL THREE TIMES DAILY Comments: TAKEN: 11/02/17 TIME: 10 AM Oxycodone HCl/Acetaminophen (Percocet 10-325 MG Tablet) 10 MG-325 MG TABLET 1 Tablet ORAL THREE TIMES DAILY as needed for PAIN Comments: TAKEN: 11/02/17 TIME: 2:40 PM Fluticasone/Salmeterol (Advair 500-50 Diskus) 500 MCG-50 MCG/DOSE BLST.W.DEV 1 Puff Inhale through mouth TWICE DAILY Qty = 60 Comments: NOT GIVEN WHILE IN HOSPITAL Colchicine (Colcrys) 0.6 MG TABLET 1 Tablet ORAL DAILY Qty = 30 Comments: Last Taken: 11/02/17 Time: 10 AM Febuxostat (Uloric) 40 MG TABLET 40 Milligram ORAL DAILY Qty = 30 Comments: Last Taken: 11/02/17 Time: 1000 AM Start taking the following new medications: Ammonium Lactate (Ammonium Lactate) 12 % CREAM..G. 12 Percent TOPICAL TWICE DAILY Qty = 1 No Refills Instructions: . Comments: Last Taken: 11/02/17 Time: 10 AM Copies To: Doris HARPER,William Laureano DPM, MD Review Statement Documenting Attending: Damari Crystal MD Other Findings: Discharged in stable condition
== END 2017-11-02 17:30 | DRG 190 ==
LOC: ERH 22:11 → CRI 10-29 04:55 → ERHI 10-29 04:55 → ENTRNSPT 10-29 17:57 → CRI 10-29 18:20 → CMPTRNSPT 10-29 18:34 → CRI 11-02 17:30
PROVIDERS: Emergency Medicine; Internal Medicine Infectious Disease; Student in an Organized Health Care Education/Training Program
DX: J44.1 Chronic obstructive pulmonary disease with (acute) exacerbation (principal); J96.01 Acute respiratory failure with hypoxia; I47.2 Ventricular tachycardia; E11.22 Type 2 diabetes mellitus with diabetic chronic kidney disease; I42.8 Other cardiomyopathies; L03.116 Cellulitis of left lower limb; I13.0 Hypertensive heart and chronic kidney disease with heart failure and stage 1 through stage 4 chronic kidney disease, or unspecified chronic kidney disease; I50.22 Chronic systolic (congestive) heart failure; E11.40 Type 2 diabetes mellitus with diabetic neuropathy, unspecified; Z99.81 Dependence on supplemental oxygen; R07.89 Other chest pain; N18.9 Chronic kidney disease, unspecified; I87.2 Venous insufficiency (chronic) (peripheral); M1A.9XX0 Chronic gout, unspecified, without tophus (tophi); L85.3 Xerosis cutis; R23.4 Changes in skin texture; G47.33 Obstructive sleep apnea (adult) (pediatric)
CPT/HCPCS: CCU; 36415; 71045; 73630-LT; 82436; 87040; 93005; 93010; 96365; J1644; J3490

== ENCOUNTER 2018-01-08 11:44 | Inpatient (IN) | payer OTHER, MEDICARE ==
[~2018-01-08] VITALS: Ht 182.9 cm; Wt 180.6 kg
[~2018-01-08 11:44] MED LIST changes: +AMMONIUM LACTA385 GM TP; +CEPHALEXIN250 M2 PO
[2018-01-08 12:32] LABS: ABSOLUTE BASOPHIL COUNT 0 /CUMM (0.0-0.2); ABSOLUTE EOSINOPHIL COUNT 0.2 /CUMM (0.0-0.7); ABSOLUTE GRANULOCYTE CT 6.7 /CUMM (1.4-6.5); ABSOLUTE LYMPH COUNT 1.9 /CUMM (1.2-3.4); ABSOLUTE MONOCYTE COUNT 0.7 /CUMM (0.10-0.60); BASOPHIL % 0.4 % (0.0-2.0); EOSINOPHIL % 1.6 % (0-5); GRANULOCYTE % 70.5 % (42.2-75.2); HEMATOCRIT 35.8 % (42-52); MEAN CORPUSCULAR HGB 27.4 PG (27.0-31.0); MEAN CORPUSCULAR HGB CONC 32.5 G/DL (33.0-37.0); MEAN CORPUSCULAR VOLUME 84.3 FL (80.0-94.0); MEAN PLATELET VOLUME 6.7 FL (7.4-10.4); PLATELET COUNT 212 /CUMM (130-400); RBC DISTRIBUTION WIDTH 14.3 % (11.5-14.5); RED BLOOD CELL CT 4.25 /CUMM (4.70-6.10); WHITE BLOOD CELL COUNT 9.6 /CUMM (4.8-10.8)
--- NOTE | 2018-01-08 15:36 | ED GENERAL ADULT ---
History of Present Illness General Chief Complaint: Dyspnea (COPD, CHF, Other) Stated Complaint: BILATERAL LOWER EXTREMITY SWELLING, SOB Source: patient Exam Limitations: no limitations Allergies Coded Allergies: No Known Allergies (01/08/18) Reconcile Medications Acetaminophen 500 MG TABLET 1 TAB PO DAILY PRN PAIN PLEASE ALTERNATE WITH NAPROXEN FOR PAIN Albuterol Sulfate (Proair Hfa) 90 MCG HFA.AER.AD 2 PUF INH Q4-6 PRN PRN COPD (Reported) Ammonium Lactate 12 % CREAM..G. 12 % TP BID foot fissures . Amoxicillin/Potassium Clav (Augmentin 875-125 Tablet) 875 MG-125 MG TABLET 1 TAB PO ONCE CELLULITIS Carvedilol (Coreg) 25 MG TABLET 1 TAB PO BID HIGH BLOOD PRESSURE (Reported) Colchicine (Colcrys) 0.6 MG TABLET 1 TAB PO DAILY GOUT (Reported) Febuxostat (Uloric) 40 MG TABLET 40 MG PO DAILY Gout Ferrous Sulfate 325 MG (65 MG IRON) TABLET 1 TAB PO DAILY anemia Fluticasone/Salmeterol (Advair 500-50 Diskus) 500 MCG-50 MCG/DOSE BLST.W.DEV 1 PUF INH BID COPD (Reported) Furosemide (Lasix) 40 MG TABLET 1 TAB PO QPM DIURETIC (Reported) Furosemide (Lasix) 80 MG TABLET 1 TAB PO QAM DIURETIC (Reported) Gabapentin 400 MG CAPSULE 1 CAP PO TID NEUROPATHY (Reported) Glimepiride 1 MG TABLET 1 TAB PO BID DM (Reported) Hydroxyzine Hydrochloride (Atarax) 50 MG TABLET 2 TAB PO BID MUCUS (Reported) Ipratropium/Albuterol Sulfate (Combivent Respimat Inhal [place]) 20 MCG-100 MCG/ ACTUATION MIST.INHAL 2 PUFF INH BID copd (Reported) Lisinopril 10 MG TABLET 1 TAB PO DAILY BP (Reported) Metformin HCl (Glucophage) 1,000 MG TABLET 1 TAB PO BID DM (Reported) Montelukast Sodium (Singulair) 10 MG TABLET 1 TAB PO DAILY RESPIRATORY ( Reported) Naproxen (Naprosyn) 500 MG TABLET 1 TAB PO DAILY PRN PAIN PLEASE ALTERNATE WITH ACETAMINOPHEN 500 FOR PAIN. Simvastatin (Simvastatin*) 10 MG TABLET 1 TAB PO QPM CHOLESTEROL (Reported) Umeclidinium [place] (Incruse Ellipta) 62.5 MCG/ACTUATION BLST.W.DEV 1 PUFF INH DAILY COPD (Reported) Triage Note: PT BIBA FROM HOME FOR BILATERAL LOWER EXT REDNESS SWELLING AND PAIN. +SOB, BASELINE 3.5 L NC OXYGEN AND HAS BEEN COMPLIANT. ALSO COMPLAINS OF WHEEZING AND CHEST TIGHTNESS ("BUT IT'S NOT MY HEART ITS FROM BREATHING"). Triage Nurses Notes Reviewed? yes Onset: Gradual Duration: chronic Timing: worsening HPI: 62 y/o male with h/o cardiomyopathy, CHF, s/p pacemaker, cardiac arrest, HLD, COPD (baseline home O2 3L NC), PUD, diabetes presenting with multiple complaints. Pt has chronic bilateral lower extremity edema at baseline, but presents with pain/redness that is worse in his right lower extremity over the past few days. Pt had duplex ultrasound of his lower extremities yesterday, which were negative for DVT. Denies fevers, or purulent drainage. Pt also complains of, acute on chronic SOB, that has been associated with chest tightness and wheezing over the past few days. Has not required any increased in his baseline oxygen. Denies CP, Cough, Sputum, Sick contacts, recent travel. (Franky ESPINOZA,Sabiha) Vital Signs & Intake/Output Vital Signs & Intake/Output Vital Signs Date Time Temp Pulse Resp B/P B/P Pulse O2 O2 Flow FiO2 Mean Ox Delivery Rate 01/08 1859 99.5 84 20 113/67 96 01/08 1718 98 Nasal 3.0L Cannula 01/08 1520 95 Nasal 3.5L Cannula 01/08 1215 99.7 71 22 119/67 93 Nasal 3.0L Cannula (Patrick Banuelos DO) Past History Travel History Traveled to [place] past 21 day No Medical History Any Pertinent Medical History? 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 Hx Contributory? No (Sabiha Barron) Review of Systems Review of Systems Constitutional: Reports: no symptoms. EENTM: Reports: no symptoms. Respiratory: Reports: short of breath, wheezing. Denies: cough, sputum production. Cardiovascular: Reports: no symptoms. GI: Reports: no symptoms. Genitourinary: Reports: no symptoms. Musculoskeletal: Reports: see HPI. Skin: Reports: no symptoms. Neurological/Psychological: Reports: no symptoms. Hematologic/Endocrine: Reports: no symptoms. Immunologic/Allergic: Reports: no symptoms. (Sabiha Barron) Physical Exam Physical Exam General Appearance: well developed/nourished, no apparent distress, alert, awake , comfortable Head: atraumatic, normal appearance Eyes: Bilateral: normal appearance. Neck: normal inspection Respiratory: no respiratory distress, wheezing (diffuse, all lung jaquez) Cardiovascular: regular rate/rhythm Gastrointestinal: soft, non-tender Back: normal inspection Extremities: On exma of the bilateral lower extremities there is symmetric non- pitting edema. However, there is diffuse erythema and increased warmth to the lower right leg. The extremity is NV intact with 2+ distal pulses. Neurologic/Psych: awake, alert, oriented x 3, normal mood/affect Skin: intact Core Measures ACS in differential dx? Yes CVA/TIA Diagnosis: No Sepsis Present: No Sepsis Focused Exam Completed? No (Sabiha Barron) Progress Differential Diagnoses I considered the following diagnoses in my evaluation of the patient: [Low concern for DVT as pt just had neg US study yesterday. Pt likely with cellulitis to the right lower leg. Low concern for nec fasc. SOB - COPD vs CHF exacerbation. Low concern for ACS.] Initial ED EKG: Ventricular pacing (Sabiha Barron) Plan of Care: Orders Procedure Date/time Status Heart Healthy Diet 01/09 B Active Weight 01/08 1954 Active Teach/Educate 01/08 1954 Active Pain Treatment and Response 01/08 1954 Active Nutritional Intake, Monitor 01/08 1954 Active Isolation 01/08 1954 Active Patient Care Conference 01/08 1954 Active Activity/Ambulation 01/08 1954 Active Patient Data 01/08 1720 Active ED Holding Orders 01/08 1718 Active Admit to inpatient 01/08 1718 Active Vital Signs 01/08 171 Active Code Status 01/08 171 Active Add-on Test (ER Only) 01/08 1537 Active Intake & Output 01/08 1519 Active BLOOD CULTURE 01/08 1222 Active B-TYPE NATRIURETIC PEP (BNP) 01/08 1221 Complete TROPONIN LEVEL 01/08 1213 Complete COMPREHENSIVE METABOLIC PANEL 01/08 1213 Complete CBC WITHOUT DIFFERENTIAL 01/08 1213 Complete EKG 01/08 1147 Active ECHOCARDIOGRAM 01/08 UNK Active Laboratory Tests 01/08/18 1221: Anion Gap 13, Estimated GFR 52 L, BUN/Creatinine Ratio 18.6, Glucose 148 H, Calcium 9.2, Total Bilirubin 1.1, AST 10 L, ALT 19 L, Alkaline Phosphatase 80, Troponin I 0.04, Vwe-[id number]-Ngibswrsfrv Pept 1790 H, Total Protein 6.9, Albumin 3.8, Globulin 3.1, Albumin/Globulin Ratio 1.2, CBC w Diff NO MAN DIFF REQ, RBC 4.25 L, MCV 84.3, MCH 27.4, MCHC 32.5 L, RDW 14.3, MPV 6.7 L, Gran % 70.5, Lymphocytes % 20.0 L, Monocytes % 7.5, Eosinophils % 1.6, Basophils % 0.4, Absolute Granulocytes 6.7 H, Absolute Lymphocytes 1.9, Absolute Monocytes 0.7 H, Absolute Eosinophils 0.2, Absolute Basophils 0 Microbiology 01/08 1827 BLOOD: Blood Culture - RECD 01/08 122 BLOOD: Blood Culture - RECD EKG shows ventricular pacing, trop 0.04. bnp mildly elevated to 1790. CXR IMPRESSION: Findings suggestive of mild central pulmonary vascular congestion and/or edema Pt given duo nebs with some improvement in his SOB. Suspect SOB is more likely due to COPD exacerbation, and less likely due to CHF exacerbation. However, pt has a mixed picture and therefore, will admit to tele. Discussed with admitting hospitalist and per hospitalist will use unasyn to cover for pt's cellulitis. 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 (Sabiha Barron) (Patrick Banuelos DO) Departure Departure Disposition: STILL A PATIENT Condition: Stable Clinical Impression Primary Impression: Cellulitis Secondary Impressions: COPD exacerbation Referrals: Carlee Mooney APRN (PCP/Family) Departure Forms: Customer Survey General Discharge Information Prescriptions: Current Visit Scripts Naproxen (Naprosyn) 1 TAB PO DAILY PRN PAIN #30 TAB PLEASE ALTERNATE WITH ACETAMINOPHEN 500 FOR PAIN. Acetaminophen 1 TAB PO DAILY PRN PAIN #30 TAB PLEASE ALTERNATE WITH NAPROXEN FOR PAIN Amoxicillin/Potassium Clav (Augmentin 875-125 Tablet) 1 TAB PO ONCE #1 TAB (Sabiha Barron) PA/FOREIGN CORRESPONDENT Co-Sign Statement Statement: ED Attending supervision documentation- [X] I saw and evaluated the patient. I have also reviewed all the pertinent lab results and diagnostic results. I agree with the findings and the plan of care as documented in the PA's/FOREIGN CORRESPONDENT's documentation. [] I have reviewed the ED Record and agree with the PA's/FOREIGN CORRESPONDENT's documentation. [] Additions or exceptions (if any) to the PAs/FOREIGN CORRESPONDENT's note and plan are summarized below: [] (Patrick Banuelos DO) Critical Care Note Critical Care Note Critical Care Time: non-applicable (Sabiha Barron)
[2018-01-08] MEDS ORDERED: CARVEDILOL25 M1 PO (15:47)
[2018-01-08] MEDS ORDERED: LASIX80 M1 PO (15:48)
[2018-01-08] MEDS ORDERED: GABAPENTIN400 M2 PO (15:49)
[2018-01-08] MEDS ORDERED: IBUPROFEN800 M1 PO (15:51)
--- NOTE | 2018-01-08 16:48 | RADIOLOGY REPORT ---
EXAMINATION: XR CHEST CLINICAL INFORMATION: Pneumonia versus COPD exacerbation versus CHF. COMPARISON: Prior chest examinations October 2017 and August and September 2017 TECHNIQUE: 2 views of the chest were obtained. FINDINGS: There is mild prominence in the central pulmonary vasculature and interstitial markings similar to prior examination September 2017. The cardiac silhouette is within the upper limits of normal with pacer and leads in place unchanged. There is calcification of the dorsal aorta. IMPRESSION: Findings suggestive of mild central pulmonary vascular congestion and/or edema
--- NOTE | 2018-01-08 17:04 | History & Physical ---
Jarrod HARPER,[facility] 01/08/18 5581: General Information and [facility] MD Statement: I have seen and personally examined SUZETTE PADILLA SR and documented this H&P. The patient is a 62 year old M who presented with a patient stated chief complaint of [RLE edema, swelling, discharge and L heel pain]. Source of Information: patient History of Present Illness: 62yo M h past medical history of heart failure with reduced ejection fraction of 25-30%, mild tricuspid regurg, nonischemic cardiomyopathy status post pacemaker, COPD on 3.5 L of oxygen, obstructive sleep apnea not on CPAP, diabetes, chronic kidney disease, hyperlipidemia, peptic ulcer disease, chronic lower extremity edema, and gout s/p soft tissue debridement of left foot with multiple admissions for persistent gout and COPD exacerbation presenting for a chief complain of RLE extremity swelling, oozing, SOB, L heel pain. The patient states that he was seen at the wound care center yesterday. States that the wound care center wanted to admit him for his right lower extremity wound however he had his dog in the car and was unable to. This a.m. he also had a appointment at [facility] for his pacemaker. The patient states that he has been having palpitations/tachycardia episodes for 6-16 seconds intermittently. The patient states that the surgeon said that there is increased in size in the pericardial fluid. 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 The patient states that he has been having left heel pain and has had needed to walk on the left forefoot. He also states some left heel discoloration which is new. He also states that his right lower extremity is undergoing changes that his left lower extremity has undergone the past. States that he has noticed increased size, edema, drainage, skin dryness and peeling. He states that he has been taking ibuprofen 800 mg daily and was previously taking Percocet but was unable to get a prescription renewal as he states Dr. George is unable to prescribe narcotics. The patient still states that he currently lives in his truck and has been compliant with medications. He endorses fevers there are low-grade of 99, worsening shortness of breath even with oxygen. He is on oxygen 3.5 L at baseline. States that he has also noticed worsening productive cough for the past 3.5 days which is yellowish brown sputum. Also complains of chest pain. The patient denies any bleeding, elimination changes, or blurry vision. Allergies/Medications Allergies: Coded Allergies: No Known Allergies (01/08/18) Past History Travel History Traveled to [place] past 21 day No Medical History Neurological: NONE EENT: NONE Cardiovascular: cardiomyopathy, CHF, chronic venous insuff, hyperlipidemia, CARDIAC ARREST S/P [facility] PACER Respiratory: COPD, SLEEP APNEA O2 3.5L NC @ BASELINE Gastrointestinal: constipation, peptic ulcer disease, EGD 08/10 showed numerous gastric and duodenal ulcers Hepatic: NONE Renal: benign prost hyperplasia, TEMPORORY DIALYSIS Musculoskeletal: gout, rheumatoid arthritis Psychiatric: NONE Endocrine: diabetes Blood Disorders: anemia Cancer(s): NONE 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 Psychosocial History Who Do You Live With? self Services at Home: Oxygen Primary Language: Chinese ETOH Use: denies use Illicit Drug Use: denies illicit drug use Functional Ability ADLs Independent: dressing, eating, toileting, bathing. Ambulation: independent IADLs Independent: shopping, housework, finances, food prep, telephone, transportation , medication admin. Review of Systems Review of Systems Constitutional: Reports: see HPI. Exam & Diagnostic Data Last 24 Hrs of Vital Signs/I&O Vital Signs Date Time Temp Pulse Resp B/P B/P Pulse O2 O2 Flow FiO2 Mean Ox Delivery Rate 01/082 98.3 72 20 116/68 94 01/08 2142 Nasal 3.0L Cannula 01/08 2011 Nasal 3.5L Cannula 01/08 1859 99.5 84 20 113/67 96 01/08 1718 98 Nasal 3.0L Cannula 01/08 1520 95 Nasal 3.5L Cannula 01/08 1215 99.7 71 22 119/67 93 Nasal 3.0L Cannula Intake & Output 01/08 1600 01/08 0800 01/08 0000 Intake Total Output Total Balance Patient 355 lb Weight Weight Estimated Measurement Method Physical Exam General Appearance Alert, Oriented X3, Cooperative Cardiovascular Regular Rate, Normal S1, Normal S2 Lungs Clear to Auscultation, Normal Air Movement Abdomen Soft, No Tenderness, decreased bowel sounds, distended abd Extremities L heel discoloration. LLE chronic venous stasis changes, diffuse RLE extremity erythema, wheeping fluid, RLE lateral fibular 4x2cm skin ulceration/? cellulitis Assessment/Plan Assessment: A: 62yo M h past medical history of heart failure with reduced ejection fraction of 25-30%, mild tricuspid regurg, nonischemic cardiomyopathy status post pacemaker, COPD on 3.5 L of oxygen, obstructive sleep apnea not on CPAP, diabetes, chronic kidney disease, hyperlipidemia, peptic ulcer disease, chronic lower extremity edema, and gout s/p soft tissue debridement of left foot with multiple admissions for persistent gout and COPD exacerbation presenting for a chief complain of RLE extremity swelling, oozing, SOB, L heel pain. P: #?CHF exascerbation T-99.7 WBC 9.6 BNP 1790 -f/u cardiology consult -f/u repeat echo -start IV lasix, i/o, daily weights #B/l cellulitis vs chronic venous stasis changes. -f/u LE dopplers -cont unasyn -monitor for fevers and WBC #wound care b/l weeping extremities RLE ?cellulitis vs ulceration of R tibia -cont unasyn -wound care consult #diabetes with ckd Cr 1.4 -cont novolog sliding scale -cont monitor renal function #chronic medical conditions: hld, htn, cardiomyopathy, anemia, gout, copd, neuropathy -cont atorvastatin, lisinopril, ferrous sulfate, febuxostat, mucinex, gabapentin , carvediol, symbicort, #DVT ppx - heparin subq #FULL CODE As Ranked By This Provider Problem List: 1. Cellulitis 2. CHF (congestive heart failure) 3. Chronic venous stasis dermatitis Core Measures/Misc (07/12) Acute Coronary Syndrome ACS Diagnosis: No Congestive Heart Failure Congestive Heart Failure Diagnosis Yes Cerebrovascular Accident CVA/TIA Diagnosis: No VTE (View Protocol) VTE Risk Factors Acute Medical Illness No Mechanical VTE Prophylaxis d/t Other No VTE Pharm Prophylaxis d/t NA PharmProphylax ordered Sepsis (View protocol) Sepsis Present: No Kinsey Marte MD 01/08/18 9541: General Information and HPI Allergies/Medications Home Med list Albuterol Sulfate (Proair Hfa) 90 MCG HFA.AER.AD 2 PUF INH Q4-6 PRN PRN COPD (Reported) Ammonium Lactate 12 % CREAM..G. 12 % TP BID foot fissures . Carvedilol (Coreg) 25 MG TABLET 1 TAB PO BID HIGH BLOOD PRESSURE (Reported) Carvedilol 25 MG TABLET 1 TAB PO BID HEART (Reported) Colchicine (Colcrys) 0.6 MG TABLET 1 TAB PO DAILY GOUT (Reported) Febuxostat (Uloric) 40 MG TABLET 40 MG PO DAILY Gout Ferrous Sulfate 325 MG (65 MG IRON) TABLET 1 TAB PO DAILY anemia Fluticasone/Salmeterol (Advair 500-50 Diskus) 500 MCG-50 MCG/DOSE BLST.W.DEV 1 PUF INH BID COPD (Reported) Furosemide (Lasix) 40 MG TABLET 1 TAB PO QPM DIURETIC (Reported) Furosemide (Lasix) 80 MG TABLET 1 TAB PO QAM DIURETIC (Reported) Gabapentin 400 MG CAPSULE 1 CAP PO TID NEUROPATHY (Reported) Glimepiride 1 MG TABLET 1 TAB PO BID DM (Reported) Hydroxyzine Hydrochloride (Atarax) 50 MG TABLET 2 TAB PO BID MUCUS (Reported) Ibuprofen 800 MG TABLET 1 TAB PO BID PAIN/INFLAMMATION (Reported) Ipratropium/Albuterol Sulfate (Combivent Respimat Inhal [place]) 20 MCG-100 MCG/ ACTUATION MIST.INHAL 2 PUFF INH BID copd (Reported) Lisinopril 10 MG TABLET 1 TAB PO DAILY BP (Reported) Metformin HCl (Glucophage) 1,000 MG TABLET 1 TAB PO BID DM (Reported) Montelukast Sodium (Singulair) 10 MG TABLET 1 TAB PO DAILY RESPIRATORY ( Reported) Oxycodone HCl/Acetaminophen (Percocet 10-325 MG Tablet) 10 MG-325 MG TABLET 1 TAB PO TID PRN PAIN (Reported) Simvastatin (Simvastatin*) 10 MG TABLET 1 TAB PO QPM CHOLESTEROL (Reported) Umeclidinium [place] (Incruse Ellipta) 62.5 MCG/ACTUATION BLST.W.DEV 1 PUFF INH DAILY COPD (Reported) Attending MD Review Statement Attending Statement Attending MD Statement: examined this patient, discuss w/resident/PA/SIX PACK PACKER, agreed w/resident/PA/SIX PACK PACKER, reviewed EMR data (avail) Attending Assessment/Plan: 62M PMH heart failure with reduced ejection fraction of 25-30%, mild tricuspid regurg, nonischemic cardiomyopathy status post pacemaker, COPD on 3.5 L of oxygen, obstructive sleep apnea not on CPAP, diabetes, chronic kidney disease, hyperlipidemia, peptic ulcer disease, chronic lower extremity edema, and gout s/ p soft tissue debridement of left foot presenting with multiple complaints, including weeping erythema and pain in his right foot and heel, erythema and pain in his left heel. He also reports worsening dyspnea for the past few days. He denies fever, chills, sore throat, sputum production, chest pain, abdominal pain, diarrhea, dysuria. His exam reveals bibasilar crackles, mild wheezing, normal cardiac and GI exam, and weeping erythema of the right leg and foot. EKG NSR without acute changes. Labs show stable CKD, elevated BNP, and CXR shows pulmonary vascular congestion. 1. Acute on chronic systolic CHF 2. RLE cellulitis 3. Bilateral stasis dermatitis of the LE Plan - Admit to telemetry - Start Lasix 40mg IV BID - I/O, daily weights - Cardiology and wound consults - Leg elevation with compression dressing - Start Unasyn for cellulitis - Hold off on steroids for now - Nebulizer treatments - Echocardiogram - Continue home medications - DVT PPx Trinh HARPER,[facility] 01/09/18 0744: Resident Review Statement Resident Statement: examined this patient, discussed with internal grinder tender, agreed with internal grinder tender Other Findings: Mr. Padilla is 62 year old with PMH of heart failure with reduced ejection fraction of 25-30%, mild tricuspid regurg, nonischemic cardiomyopathy status post pacemaker, COPD on 3.5 L of oxygen, obstructive sleep apnea not on CPAP, diabetes, chronic kidney disease, hyperlipidemia, peptic ulcer disease, chronic lower extremity edema, and gout s/p soft tissue debridement of left foot with multiple admissions for persistent gout and COPD exacerbation. He was admitted to telemetry for worsening lower extremity edema and cellulitis of right lower extremity. Problem list #Worsening lower extremity swelling right more than left #Right leg cellulitis with new weaping wounds #Left heel new superficial wound with severe pain #COPD on 3.5 L oxygen at baseline Plan -Admit to telemetry floor -Vitals every shift -Daily weights and ins and outs -Lasix 40 IV twice a day -Pain management with acetaminophen and Percocet 1 tab every 6 for severe pain -Leg elevation -Wound care -We'll obtain ultrasound of right lower extremity to rule out DVT -Continue IV Unasyn -Continue home medication, patient reported recent increase of carvedilol from 12.5-25 mg twice a day -Code full -DVT prophylaxis heparin subcutaneous
[2018-01-08] MEDS ORDERED: COREG25 M1 PO (18:09)
--- NOTE | 2018-01-08 18:49 | Admission Certification ---
Admission Certification Certification Statement - As attending physician, I certify that at the time of - admission, based on clinical presentation, severity of - symptoms, need for further diagnostic testing and - therapeutic interventions, and risk of adverse outcomes - without in-hospital treatment, in my clinical assessment, - this patient requires an acute hospital stay for a minimum - of two nights or longer. I have also considered psychsocial - factors such as support system, advanced age, financial - issues, cognitive issues, and failed out-patient treatments, - past re-admission history, safety of patient, and lack of - compliance as applicable. Specific rationale supporting this admission is: Acute CHF with LE cellulitis
[2018-01-08 22:52] VITALS: BP 116/68
[2018-01-09 06:00] VITALS: BP 114/58
--- NOTE | 2018-01-09 08:39 | PN- Housestaff ---
Amber Shipley 01/09/18 0837: Subjective Follow-up For: Acute decompensated heart failure Right lower extremity cellulitis Bilateral venous stasis dermatitis Complaints: no complaints Tele-Events Since Last Visit: History of them, heart rate 64-87, multiple PVCs. Subjective: He does not have any new symptoms. Stated that he slept well. He was concerned about his right lower extremity swelling and also fluid around his heart as told to him by [place] cardiologists. Did not have any chest pain, palpitations or shortness of breath overnight. Vitals remained stable overnight. Systolic blood pressure 114-116/diastolic 50s 8-68. Continues to be on 3 L supplemental oxygen with pulse ox 96%. Remained afebrile overnight. Review of Systems Constitutional: Reports: see HPI. Objective Last 24 Hrs of Vital Signs/I&O Vital Signs Date Time Temp Pulse Resp B/P B/P Pulse O2 O2 Flow FiO2 Mean Ox Delivery Rate 01/09 0807 60 114/58 01/09 0807 60 114/58 01/09 0600 97.6 60 20 114/58 97 01/08 2327 77 116/68 01/08 2252 98.3 72 20 116/68 94 01/08 2142 Nasal 3.0L Cannula 01/08 2011 Nasal 3.5L Cannula 01/08 1859 99.5 84 20 113/67 96 01/08 1718 98 Nasal 3.0L Cannula 01/08 1520 95 Nasal 3.5L Cannula 01/08 1215 99.7 71 22 119/67 93 Nasal 3.0L Cannula Intake & Output 01/09 1600 01/09 0800 01/09 0000 Intake Total 1260 1000 Output Total 800 Balance 460 1000 Intake, IV 110 Intake, Oral 1150 1000 Output, Urine 800 Patient 400 lb Weight Weight Bed scale Measurement Method Physical Exam General Appearance: Alert Other Physical Findings: General Exam: AAOx3, No acute distress, Skin: No rashes,;HEENT: PERRLA, EOMI; Neck: Supple, No JVD,No cervical lymphadenopathy;CVS: Reg Rate, Normal S1,S2, No MGR;Resp: Normal air entry, no ronchi/rales;Abdomen: Soft, No tenderness, Normal Bowel Sounds;Neuro: Normal Speech, Strength 5/5 b/l x 4 extremities, Sensation intact, CN III-XII NL, Reflexes 2+;Extremities: No cyanosis, no pedal edema, chronic dermatitis changes bilateral lower extremities, right lower extremity covered with Geo bandage. As per H&P he had L heel discoloration. LLE chronic venous stasis changes, diffuse RLE extremity erythema, wheeping fluid, RLE lateral fibular 4x2cm skin ulceration. Current Medications: Current Medications Sig/[place] Start time Last Medication Dose Route Stop Time Status Admin Acetaminophen 650 MG Q6P PRN 01/08 211 AC PO Albuterol Sulfate 3 ML TID 01/08 2200 AC 01/08 INH 2145 Albuterol Sulfate 2 PUF Q4-6 PRN PRN 01/08 211 AC INH Albuterol Sulfate 3 ML ONCE ONE 01/08 1545 DC 01/08 INH 01/08 1546 1718 Albuterol Sulfate 3 ML ONCE ONE 01/08 1545 DC 01/08 INH 01/08 1546 1728 Albuterol Sulfate 3 ML ONCE ONE 01/08 1545 DC 01/08 INH 01/08 1546 1732 Ammonium Lactate 1 IDANIA BID 01/08 2200 AC 01/09 TOP 0810 Ampicillin Sodium/ 3,000 MG Q6 01/08 2359 AC 01/09 Sulbactam Sodium IV 0522 Sodium Chloride 100 ML Ampicillin Sodium/ 0 .STK-MED ONE 01/08 1735 DC Sulbactam Sodium .ROUTE Ampicillin Sodium/ 3,000 MG ONCE ONE 01/08 1615 DC 01/08 Sulbactam Sodium IV 01/08 1644 1827 Sodium Chloride 100 ML Atorvastatin Calcium 5 MG 1700 01/09 1700 AC PO Budesonide/ 2 PUF BID 01/08 2200 AC 01/09 Formoterol Fumarate INH 0811 Carvedilol 25 MG BID 01/08 2200 AC 01/09 PO 0807 Febuxostat 40 MG DAILY 01/09 1000 AC 01/09 PO 0807 Ferrous Sulfate 325 MG DAILY 01/09 1000 AC 01/09 PO 0807 Furosemide 40 MG 7:30 AM, & 4:30 PM 01/09 0730 AC 01/09 IV 0806 Furosemide 40 MG ONCE ONE 01/08 2130 DC 01/08 IV 01/08 2131 2203 Gabapentin 400 MG Q8 01/08 2200 AC 01/09 PO 0521 Guaifenesin 600 MG Q12 01/08 2200 AC 01/09 PO 0807 Heparin Sodium 5,000 UNIT Q8 01/08 2200 AC 01/09 (Porcine) SC 0522 Insulin Aspart 0 TIDAC 01/09 0800 AC SC Ipratropium [place] 2.5 ML ONCE ONE 01/08 1545 DC 01/08 INH 01/08 1546 1718 Lisinopril 10 MG DAILY 01/09 1000 AC 01/09 PO 0807 Oxycodone/ 1 TAB Q6 PRN 01/08 2115 AC 01/09 Acetaminophen PO 0817 Oxycodone/ 0 .STK-MED ONE 01/08 1838 DC Acetaminophen PO Oxycodone/ 1 TAB ONCE ONE 01/08 1800 DC 01/08 Acetaminophen PO 01/08 1801 1835 Prednisone 0 .STK-MED ONE 01/08 1734 DC PO Prednisone 60 MG ONCE ONE 01/08 1600 DC 01/08 PO 01/08 1601 1727 Last 24 Hrs of Lab/Joaquim Results Last 24 Hrs of Labs/Mics: Laboratory Tests 01/09/18 0625: Sodium Pending, Potassium Pending, Chloride Pending, Carbon Dioxide Pending, Anion Gap Pending, BUN Pending, Creatinine Pending, BUN/Creatinine Ratio Pending , CBC w Diff Pending, WBC Pending, RBC Pending, Hgb Pending, Hct Pending, MCV Pending, MCH Pending, MCHC Pending, RDW Pending, Plt Count Pending, MPV Pending 01/08/18 1221: Anion Gap 13, Estimated GFR 52 L, BUN/Creatinine Ratio 18.6, Glucose 148 H, Calcium 9.2, Magnesium 1.8, Total Bilirubin 1.1, AST 10 L, ALT 19 L, Alkaline Phosphatase 80, Troponin I 0.04, Bqr-L-Ejpeyrzibtk Pept 1790 H, Total Protein 6.9, Albumin 3.8, Globulin 3.1, Albumin/Globulin Ratio 1.2, CBC w Diff NO MAN DIFF REQ, RBC 4.25 L, MCV 84.3, MCH 27.4, MCHC 32.5 L, RDW 14.3, MPV 6.7 L, Gran % 70.5, Lymphocytes % 20.0 L, Monocytes % 7.5, Eosinophils % 1.6, Basophils % 0.4, Absolute Granulocytes 6.7 H, Absolute Lymphocytes 1.9, Absolute Monocytes 0.7 H, Absolute Eosinophils 0.2, Absolute Basophils 0 Microbiology 03/16 1827 BLOOD: Blood Culture - RECD 01/08 1221 BLOOD: Blood Culture - RECD Assessment/Plan Assessment: Mr. Padilla is a 62-year-old gentleman with a past medical history of heart failure with reduced ejection fraction (25-30%), nonischemic cardiomyopathy status post pacemaker, COPD on 3.5 supplemental home oxygen, obstructive sleep apnea, diabetes, COPD, hyperlipidemia, chronic lower extremity edema, multiple ulcers with prior debridements of right foot, heel, left foot came in with a chief concern of worsening dyspnea in the last few days. He did not have any fever, chills, chest pain, palpitations or dysuria. Lab findings in the last 24 hours-WBC 9.6, hemoglobin 11.6 (await labs from this a.m.), platelets 212, sodium 143, potassium 5.3 (repeat ordered for this afternoon), BUN 25, serum creatinine 1.1, proBNP 1790, chest x-ray revealed findings suggestive of mild central pulmonary vascular congestion and/or edema. Etiology in his case is likely due to acute decompensation of CHF, which appears mild. He also has a history of COPD which could have contributed to his dyspnea. In regards to concern for pericardial effusion, echocardiogram has been ordered. Also for possible cellulitis of right lower extremity, need to rule out DVT. Problem list: #1 acute decompensation of CHF #2 right lower extremity cellulitis #3 chronic venous stasis changes in lower extremities #4 COPD Plan: #1 continue to monitor on telemetry for any arrhythmias #2 continue intravenous Lasix 40 mg twice a day. Continue to monitor ins and outs and daily weights. #3 follow-up repeat echocardiogram to rule out any pericardial effusion #4 continue Unasyn for cellulitis #5 continue to monitor renal functions closely. #6 to rule out right lower extremity [id number] ultrasound Dopplers. #7 monitor for fever and leukocytosis. #8 Continue carvedilol 25 twice a day. Would defer the decision to the business partner to change the dose of carvedilol after reviewing echocardiogram, if needed. #9 leg elevation #10 wound care consult House keepin. DVT PPx- subcutaneous heparin Problem List: 1. Chronic venous stasis dermatitis 2. CHF (congestive heart failure) Pain Ratin Pain Location: lower extremities Pain Goal: Pain 4 or less Pain Plan: percocet Tomorrow's Labs & Rationales: cbc to monitor leucocytosis bep for monitoring hyperkalemia George HARPER,[facility] 01/09/18 1254: Attending MD Review Statement Attending Statement Attending MD Statement: examined this patient, discuss w/resident/PA/CAR RUNNER, agreed w/resident/PA/CAR RUNNER, reviewed EMR data (avail), discussed with nursing Attending Assessment/Plan: Pt was seen and evaluated by me, chart reviewed and agree with the interval history, exam, and A/P as outlined by the resident. --f/u cards consult --cont IV abx --f/u labs in am --rest of the plan as per resident's note
[2018-01-09 13:04] LABS: ABSOLUTE BASOPHIL COUNT 0 /CUMM (0.0-0.2); ABSOLUTE EOSINOPHIL COUNT 0.1 /CUMM (0.0-0.7); ABSOLUTE GRANULOCYTE CT 5.3 /CUMM (1.4-6.5); ABSOLUTE LYMPH COUNT 1.8 /CUMM (1.2-3.4); ABSOLUTE MONOCYTE COUNT 0.9 /CUMM (0.10-0.60); BASOPHIL % 0.2 % (0.0-2.0); EOSINOPHIL % 0.7 % (0-5); GRANULOCYTE % 65.2 % (42.2-75.2); MEAN CORPUSCULAR HGB 27.5 PG (27.0-31.0); MEAN CORPUSCULAR HGB CONC 32.3 G/DL (33.0-37.0); MEAN CORPUSCULAR VOLUME 85.4 FL (80.0-94.0); MEAN PLATELET VOLUME 6.9 FL (7.4-10.4); PLATELET COUNT 190 /CUMM (130-400); RBC DISTRIBUTION WIDTH 14.3 % (11.5-14.5); RED BLOOD CELL CT 3.99 /CUMM (4.70-6.10); WHITE BLOOD CELL COUNT 8.1 /CUMM (4.8-10.8)
--- NOTE | 2018-01-09 15:30 | ULTRASOUND REPORT ---
EXAMINATION: US TRIPLEX OF LOWER EXTREMITIES, BILATERAL CLINICAL INFORMATION: Bilateral lower extremity edema and pain. COMPARISON: Venous ultrasound examinations dated 01/07/2018 and 10/05/2017. TECHNIQUE: Color-flow triplex imaging with spectral analysis and compression Doppler were performed on the bilateral lower extremities. FINDINGS: Respiratory variation, normal compression and augmented flow are noted throughout the lower extremities. The visualized common femoral vein, proximal greater saphenous vein, femoral vein, profunda femoral vein, popliteal vein and vein visualized mid calf venous segments show no evidence of deep venous thrombosis. There is no Nichols's cyst. IMPRESSION: Normal triplex scan without evidence of deep venous thrombosis involving the bilateral lower extremities.
[2018-01-09 15:37] VITALS: BP 116/60
--- NOTE | 2018-01-09 18:53 | Cons- Cardiology ---
General Information and HPI Consulting Request Date of Consult: 01/09/18 Requested By: Kinsey Marte MD Reason for Consult: Acute on chronic systolic CHF; cellutlits Source of Information: patient, old records Exam Limitations: no limitations History of Present Illness: 62yo M h past medical history of heart failure with reduced ejection fraction of 25-30%, mild tricuspid regurg, nonischemic cardiomyopathy status post pacemaker, COPD on 3.5 L of oxygen, obstructive sleep apnea not on CPAP, diabetes, chronic kidney disease, hyperlipidemia, peptic ulcer disease, chronic lower extremity edema, and gout s/p soft tissue debridement of left foot with multiple admissions for persistent gout and COPD exacerbation presenting for a chief complain of RLE extremity swelling, oozing, SOB, L heel pain. Recently seen at CHF clinic and admission recommended. Patient unable to comply due to social issues. Seen as PPM clinica in [facility] and told that his optivol readings were elevated. Now here with cellulitis right leg and worsening edema. Allergies/Medications Allergies: Coded Allergies: No Known Allergies (01/08/18) Home Med List: Albuterol Sulfate (Proair Hfa) 90 MCG HFA.AER.AD 2 PUF INH Q4-6 PRN PRN COPD (Reported) Ammonium Lactate 12 % CREAM..G. 12 % TP BID foot fissures . Carvedilol (Coreg) 25 MG TABLET 1 TAB PO BID HIGH BLOOD PRESSURE (Reported) Carvedilol 25 MG TABLET 1 TAB PO BID HEART (Reported) Colchicine (Colcrys) 0.6 MG TABLET 1 TAB PO DAILY GOUT (Reported) Febuxostat (Uloric) 40 MG TABLET 40 MG PO DAILY Gout Ferrous Sulfate 325 MG (65 MG IRON) TABLET 1 TAB PO DAILY anemia Fluticasone/Salmeterol (Advair 500-50 Diskus) 500 MCG-50 MCG/DOSE BLST.W.DEV 1 PUF INH BID COPD (Reported) Furosemide (Lasix) 40 MG TABLET 1 TAB PO QPM DIURETIC (Reported) Furosemide (Lasix) 80 MG TABLET 1 TAB PO QAM DIURETIC (Reported) Gabapentin 400 MG CAPSULE 1 CAP PO TID NEUROPATHY (Reported) Glimepiride 1 MG TABLET 1 TAB PO BID DM (Reported) Hydroxyzine Hydrochloride (Atarax) 50 MG TABLET 2 TAB PO BID MUCUS (Reported) Ibuprofen 800 MG TABLET 1 TAB PO BID PAIN/INFLAMMATION (Reported) Ipratropium/Albuterol Sulfate (Combivent Respimat Inhal [place]) 20 MCG-100 MCG/ ACTUATION MIST.INHAL 2 PUFF INH BID copd (Reported) Lisinopril 10 MG TABLET 1 TAB PO DAILY BP (Reported) Metformin HCl (Glucophage) 1,000 MG TABLET 1 TAB PO BID DM (Reported) Montelukast Sodium (Singulair) 10 MG TABLET 1 TAB PO DAILY RESPIRATORY ( Reported) Oxycodone HCl/Acetaminophen (Percocet 10-325 MG Tablet) 10 MG-325 MG TABLET 1 TAB PO TID PRN PAIN (Reported) Simvastatin (Simvastatin*) 10 MG TABLET 1 TAB PO QPM CHOLESTEROL (Reported) Umeclidinium [place] (Incruse Ellipta) 62.5 MCG/ACTUATION BLST.W.DEV 1 PUFF INH DAILY COPD (Reported) Current Medications: Current Medications Sig/Keaton Start time Last Medication Dose Route Stop Time Status Admin Acetaminophen 650 MG Q6P PRN 01/08 2115 AC PO Albuterol Sulfate 3 ML TID 01/08 2200 AC 01/09 INH 1331 Albuterol Sulfate 2 PUF Q4-6 PRN PRN 01/08 2115 AC INH Ammonium Lactate 1 IDANIA BID 01/080 AC 01/09 TOP 0810 Ampicillin Sodium/ 3,000 MG Q6 01/08 2359 AC 01/09 Sulbactam Sodium IV 1813 Sodium Chloride 100 ML Atorvastatin Calcium 5 MG 1700 01/09 1700 AC 01/09 PO 1618 Budesonide/ 2 PUF BID 01/08 2200 AC 01/09 Formoterol Fumarate INH 0811 Carvedilol 25 MG BID 01/08 220 AC 01/09 PO 0807 Febuxostat 40 MG DAILY 01/09 1000 AC 01/09 PO 0807 Ferrous Sulfate 325 MG DAILY 01/09 1000 AC 01/09 PO 0807 Furosemide 40 MG 7:30 AM, & 4:30 PM 01/09 0730 AC 01/09 IV 1618 Furosemide 40 MG ONCE ONE 01/08 2130 DC 01/08 IV 01/08 2131 220 Gabapentin 400 MG Q8 01/08 2200 AC 01/09 PO 1351 Guaifenesin 600 MG Q12 01/08 2200 AC 01/09 PO 0807 Heparin Sodium 5,000 UNIT Q8 01/08 2200 AC 01/09 (Porcine) SC 1351 Insulin Aspart 0 TIDAC 01/09 0800 AC 01/09 SC 1244 Lisinopril 10 MG DAILY 01/09 1000 AC 01/09 PO 0807 Oxycodone/ 1 TAB Q6 PRN 01/08 2115 AC 01/09 Acetaminophen PO 1352 Past History Travel History Traveled to [place] past 21 day No Medical History Blood Transfusion Hx: Yes Neurological: NONE EENT: NONE Cardiovascular: cardiomyopathy, CHF, chronic venous insuff, hyperlipidemia, CARDIAC ARREST S/P LWC PACER Respiratory: COPD, SLEEP APNEA O2 3.5L NC @ BASELINE Gastrointestinal: constipation, peptic ulcer disease, EGD 08/10 showed numerous gastric and duodenal ulcers Hepatic: NONE Renal: benign prost hyperplasia, TEMPORORY DIALYSIS Musculoskeletal: gout, rheumatoid arthritis Psychiatric: NONE Endocrine: diabetes Blood Disorders: anemia Cancer(s): NONE 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 Other Who Do You Live With? self Services at Home: Oxygen Primary Language: Scottish Smoking Status: Never Smoked ETOH Use: denies use Illicit Drug Use: denies illicit drug use Functional Ability ADLs Independent: dressing, eating, toileting, bathing. Ambulation: independent IADLs Independent: shopping, housework, finances, food prep, telephone, transportation , medication admin. Exam & Diagnostic Data Vital Signs and I&O Vital Signs Date Time Temp Pulse Resp B/P B/P Pulse O2 O2 Flow FiO2 Mean Ox Delivery Rate 01/09 1537 97.8 67 20 116/60 92 01/09 0850 96 Nasal 3.0L Cannula 01/09 0807 60 114/58 01/09 0807 60 114/58 01/09 0800 Nasal 3.5L Cannula 01/09 0600 97.6 60 20 114/58 97 01/08 2327 77 116/68 01/08 2252 98.3 72 20 116/68 94 01/08 2142 Nasal 3.0L Cannula 01/08 2011 Nasal 3.5L Cannula Intake & Output 01/09 1600 01/09 0800 01/09 0000 01/08 1600 01/08 0800 01/08 0000 Intake Total 1300 1260 1000 Output Total 1600 800 Balance -837 949 0690 Intake, IV 100 110 Intake, Oral 1200 1150 1000 Output, Urine 1600 800 Patient 400 lb 355 lb Weight Weight Bed scale Estimated Measurement Method Physical Exam: General Appearance Alert, Oriented X3, Cooperative Cardiovascular Regular Rate, Normal S1, Normal S2, S3, 2/6 systolic murmur Lungs Clear to Auscultation, Normal Air Movement Abdomen Soft, No Tenderness, decreased bowel sounds, distended abd Extremities L heel discoloration. LLE chronic venous stasis changes, diffuse RLE extremity erythema, wheeping fluid, RLE lateral fibular 4x2cm skin ulceration/? cellulitis Labs/Joaquim Results: Laboratory Tests 01/09 01/09 1145 0625 Chemistry Sodium (137 - 145 mmol/L) 143 Potassium (3.5 - 5.1 mmol/L) 4.1 5.3 H Chloride (98 - 107 mmol/L) 99 Carbon Dioxide (22 - 30 mmol/L) 34 H Anion Gap (5 - 16) 9 BUN (9 - 20 mg/dL) 25 H Creatinine (0.7 - 1.2 mg/dL) 1.1 Estimated GFR (>60 ml/min) > 60 BUN/Creatinine Ratio (7 - 25 %) 22.7 Hematology CBC w Diff NO MAN DIFF REQ WBC (4.8 - 10.8 /CUMM) 8.1 RBC (4.70 - 6.10 /CUMM) 3.99 L Hgb (14.0 - 18.0 G/DL) 11.0 L Hct (42 - 52 %) 34.0 L MCV (80.0 - 94.0 FL) 85.4 MCH (27.0 - 31.0 PG) 27.5 MCHC (33.0 - 37.0 G/DL) 32.3 L RDW (11.5 - 14.5 %) 14.3 Plt Count (130 - 400 /CUMM) 190 MPV (7.4 - 10.4 FL) 6.9 L Gran % (42.2 - 75.2 %) 65.2 Lymphocytes % (20.5 - 51.1 %) 22.4 Monocytes % (1.7 - 9.3 %) 11.5 H Eosinophils % (0 - 5 %) 0.7 Basophils % (0.0 - 2.0 %) 0.2 Absolute Granulocytes (1.4 - 6.5 /CUMM) 5.3 Absolute Lymphocytes (1.2 - 3.4 /CUMM) 1.8 Absolute Monocytes (0.10 - 0.60 /CUMM) 0.9 H Absolute Eosinophils (0.0 - 0.7 /CUMM) 0.1 Absolute Basophils (0.0 - 0.2 /CUMM) 0 /16 1221 Chemistry Sodium (137 - 145 mmol/L) 144 Potassium (3.5 - 5.1 mmol/L) 4.1 Chloride (98 - 107 mmol/L) 97 L Carbon Dioxide (22 - 30 mmol/L) 34 H Anion Gap (5 - 16) 13 BUN (9 - 20 mg/dL) 26 H Creatinine (0.7 - 1.2 mg/dL) 1.4 H Estimated GFR (>60 ml/min) 52 L BUN/Creatinine Ratio (7 - 25 %) 18.6 Glucose (65 - 99 mg/dL) 148 H Calcium (8.4 - 10.2 mg/dL) 9.2 Magnesium (1.6 - 2.3 mg/dL) 1.8 Total Bilirubin (0.2 - 1.3 mg/dL) 1.1 AST (17 - 59 U/L) 10 L ALT (21 - 72 U/L) 19 L Alkaline Phosphatase (< 127 U/L) 80 Troponin I (<0.11 ng/ml) 0.04 [id number] Pept (<125 pg/mL) 1790 H Total Protein (6.3 - 8.2 g/dL) 6.9 Albumin (3.5 - 5.0 g/dL) 3.8 Globulin (1.9 - 4.2 gm/dL) 3.1 Albumin/Globulin Ratio (1.1 - 2.2 %) 1.2 Hematology CBC w Diff NO MAN DIFF REQ WBC (4.8 - 10.8 /CUMM) 9.6 RBC (4.70 - 6.10 /CUMM) 4.25 L Hgb (14.0 - 18.0 G/DL) 11.6 L Hct (42 - 52 %) 35.8 L MCV (80.0 - 94.0 FL) 84.3 MCH (27.0 - 31.0 PG) 27.4 MCHC (33.0 - 37.0 G/DL) 32.5 L RDW (11.5 - 14.5 %) 14.3 Plt Count (130 - 400 /CUMM) 212 MPV (7.4 - 10.4 FL) 6.7 L Gran % (42.2 - 75.2 %) 70.5 Lymphocytes % (20.5 - 51.1 %) 20.0 L Monocytes % (1.7 - 9.3 %) 7.5 Eosinophils % (0 - 5 %) 1.6 Basophils % (0.0 - 2.0 %) 0.4 Absolute Granulocytes (1.4 - 6.5 /CUMM) 6.7 H Absolute Lymphocytes (1.2 - 3.4 /CUMM) 1.9 Absolute Monocytes (0.10 - 0.60 /CUMM) 0.7 H Absolute Eosinophils (0.0 - 0.7 /CUMM) 0.2 Absolute Basophils (0.0 - 0.2 /CUMM) 0 Diagnostic Data CXR Results FINDINGS: There is mild prominence in the central pulmonary vasculature and interstitial markings similar to prior examination September 2017. The cardiac silhouette is within the upper limits of normal with pacer and leads in place unchanged. There is calcification of the dorsal aorta. IMPRESSION: Findings suggestive of mild central pulmonary vascular congestion and/or edema Assessment/Plan Assessment/Plan Assessment: 1. Acute on chronic HFrEF secondary to non ischemic cardiomyopathy. 2. AICD 3. Chronic venous insufficiency with LE edema and stasis changes 4. RLE cellulitis. Recommendations: - COntnue IV lasix diuresis with monitoring of I/Os , renal function and daily weights - Echocardiogram - ANtibiotics - Continue all conservative measures for LE edema ( sodium restriction, elevation, support stockngs when tolerated. consideraton for outpatient venous closure with vascular surgery, etc.) - Pain control Consult Acknowledgment - Thank you for your consult request.
[2018-01-09 23:00] VITALS: BP 102/70
[2018-01-10 06:00] VITALS: BP 112/62
--- NOTE | 2018-01-10 07:20 | PN- Housestaff ---
ViolettaAmber 01/10/18 0720: Subjective Follow-up For: Acute decompensated heart failure Right lower extremity cellulitis Bilateral venous stasis dermatitis Complaints: no complaints Subjective: Mr Cardenas was comfortable this am. He did not have any new concerns. Did not have any chest pain, palpitations or shortness of breath overnight. Vitals stable overnight. Systolic blood pressure 102-116/62-70, 96% on 3 L supplemental oxygen. Rate adequately controlled. Remained afebrile overnight. Review of Systems Constitutional: Reports: see HPI. Objective Last 24 Hrs of Vital Signs/I&O Vital Signs Date Time Temp Pulse Resp B/P B/P Pulse O2 O2 Flow FiO2 Mean Ox Delivery Rate 01/10 0823 60 /01/10 0823 60 01/10 0803 96 Nasal 3.0L Cannula 01/10 0800 Nasal 3.5L Cannula 01/10 0600 97.5 60 18 112/62 96 Nasal 3.5L Cannula 01/10 0000 Nasal 3.5L Cannula 01/09 2300 98.6 61 20 102/70 97 01/09 1537 97.8 67 20 116/60 92 Intake & Output 01/10 1600 01/10 0800 01/10 0000 Intake Total 330 200 Output Total 500 550 Balance -170 -350 Intake, IV 130 Intake, Oral 200 200 Output, Urine 500 550 Physical Exam General Appearance: No Acute Distress Other Physical Findings: General Exam: AAOx3, No acute distress, Skin: No rashes,;HEENT: PERRLA, EOMI; Neck: Supple, No JVD,No cervical lymphadenopathy;CVS: Reg Rate, Normal S1,S2, No MGR;Resp: Normal air entry, no ronchi/rales;Abdomen: Soft, No tenderness, Normal Bowel Sounds;Neuro: Normal Speech, Strength 5/5 b/l x 4 extremities, Sensation intact, CN III-XII NL, Reflexes 2+; Extremities: No cyanosis, no pedal edema, chronic dermatitis changes bilateral lower extremities. Erythema improved, pitting 2+ edema, 2 venous stasis ulcers w 4cm x 2.5 cm. Improved compared to yesterday. Current Medications: Current Medications Sig/Keaton Start time Last Medication Dose Route Stop Time Status Admin Acetaminophen 650 MG Q6P PRN 01/08 2115 AC PO Albuterol Sulfate 3 ML TID 01/08 2200 AC 01/10 INH 0801 Albuterol Sulfate 2 PUF Q4-6 PRN PRN 01/08 211 AC INH Ammonium Lactate 1 IDANIA BID 01/08 2200 AC 01/10 TOP 0824 Ampicillin Sodium/ 3,000 MG Q6 01/08 2359 AC 01/10 Sulbactam Sodium IV 0526 Sodium Chloride 100 ML Atorvastatin Calcium 5 MG 1700 01/09 1700 AC 01/09 PO 1618 Budesonide/ 2 PUF BID 01/08 2200 AC 01/10 Formoterol Fumarate INH 0824 Carvedilol 25 MG BID 01/08 2200 AC 01/10 PO 0823 Febuxostat 40 MG DAILY 01/09 1000 AC 01/10 PO 0823 Ferrous Sulfate 325 MG DAILY 01/09 1000 AC 01/10 PO 0823 Furosemide 40 MG 7:30 AM, & 4:30 PM 01/09 0730 AC 01/10 IV 0823 Gabapentin 400 MG Q8 01/08 2200 AC 01/10 PO 0526 Guaifenesin 600 MG Q12 01/08 2200 AC 01/10 PO 0823 Heparin Sodium 5,000 UNIT Q8 01/08 2200 AC 01/10 (Porcine) SC 0526 Insulin Aspart 0 TIDAC 01/09 0800 AC 01/09 SC 1244 Lisinopril 10 MG DAILY 01/09 1000 AC 01/10 PO 0823 Oxycodone/ 1 TAB ONCE ONE 01/09 2215 DC 01/09 Acetaminophen PO 01/09 221 2217 Oxycodone/ 1 TAB Q6 PRN 01/08 2115 AC 01/09 Acetaminophen PO 2010 Last 24 Hrs of Lab/Joaquim Results Last 24 Hrs of Labs/Mics: Laboratory Tests 01/10/18 0622: CBC w Diff NO MAN DIFF REQ, RBC 3.93 L, MCV 86.3, MCH 27.4, MCHC 31.8 L, RDW 14.8 H, MPV 6.9 L, Gran % 57.9, Lymphocytes % 31.3, Monocytes % 8.3, Eosinophils % 2.3, Basophils % 0.2, Absolute Granulocytes 5.0, Absolute Lymphocytes 2.7, Absolute Monocytes 0.7 H, Absolute Eosinophils 0.2, Absolute Basophils 0 01/09/18 1145: CBC w Diff NO MAN DIFF REQ, RBC 3.99 L, MCV 85.4, MCH 27.5, MCHC 32.3 L, RDW 14.3, MPV 6.9 L, Gran % 65.2, Lymphocytes % 22.4, Monocytes % 11.5 H, Eosinophils % 0.7, Basophils % 0.2, Absolute Granulocytes 5.3, Absolute Lymphocytes 1.8, Absolute Monocytes 0.9 H, Absolute Eosinophils 0.1, Absolute Basophils 0 Assessment/Plan Assessment: Mr. Padilla is a 62-year-old gentleman with a past medical history of heart failure with reduced ejection fraction (25-30%), nonischemic cardiomyopathy status post pacemaker, COPD on 3.5 supplemental home oxygen, obstructive sleep apnea, diabetes, COPD, hyperlipidemia, chronic lower extremity edema, multiple ulcers with prior debridements of right foot, heel, left foot came in with a chief concern of worsening dyspnea in the last few days. Lab findings in the last 24 hours- WBC 8.7, hemoglobin 10.8, MCV 86.3, platelets 204. Etiology in his case is likely due to acute decompensation of CHF, which appears mild. He also has a history of COPD which could have contributed to his dyspnea. In regards to concern for pericardial effusion, echocardiogram has been ordered. Also for possible cellulitis of right lower extremity, he is currently being treated with Unasyn. Problem list: #1 acute decompensation of CHF #2 right lower extremity cellulitis #3 chronic venous stasis changes in lower extremities #4 COPD Plan: #1 continue to monitor on telemetry for any arrhythmias #2 continue intravenous Lasix 40 mg twice a day. Continue to monitor ins and outs and daily weights. Change to by mouth in the a.m. #3 follow-up repeat echocardiogram to rule out any pericardial effusion #4 continue Unasyn for cellulitis for now. #5 Check BEP in the a.m. #6 ruled out DVT in right lower extremity. #7 monitor for fever and leukocytosis. #8 Continue carvedilol 25 twice a day. #9 leg elevation, CHF diet, Geo bandage. #10 wound care consult House keepin. DVT PPx- subcutaneous heparin 2. Pain control with Percocet. Increase in the dose, as per EMR. Pain is inadequately controlled w/ current regimen. Problem List: 1. Chronic venous stasis dermatitis 2. Cellulitis 3. CHF (congestive heart failure) Pain Ratin Pain Location: lower extremity pain Pain Goal: Pain 4 or less Pain Plan: tylenol prn Tomorrow's Labs & Rationales: cbc bep George HARPER,Amir 01/10/18 1124: Attending MD Review Statement Attending Statement Attending MD Statement: examined this patient, discuss w/resident/PA/HAMMERSMITH HELPER, agreed w/resident/PA/HAMMERSMITH HELPER, reviewed EMR data (avail), discussed with nursing Attending Assessment/Plan: Pt was seen and evalauted. Still coughing, c/o LE pain. However, LE edema improved. --cont IV abx, Unasyn, and home pain meds --rest of the plan as per resident's note
[2018-01-10 07:43] LABS: ABSOLUTE BASOPHIL COUNT 0 /CUMM (0.0-0.2); ABSOLUTE EOSINOPHIL COUNT 0.2 /CUMM (0.0-0.7); ABSOLUTE LYMPH COUNT 2.7 /CUMM (1.2-3.4); ABSOLUTE MONOCYTE COUNT 0.7 /CUMM (0.10-0.60); BASOPHIL % 0.2 % (0.0-2.0); EOSINOPHIL % 2.3 % (0-5); GRANULOCYTE % 57.9 % (42.2-75.2); MEAN CORPUSCULAR HGB 27.4 PG (27.0-31.0); MEAN CORPUSCULAR HGB CONC 31.8 G/DL (33.0-37.0); MEAN CORPUSCULAR VOLUME 86.3 FL (80.0-94.0); MEAN PLATELET VOLUME 6.9 FL (7.4-10.4); PLATELET COUNT 204 /CUMM (130-400); RBC DISTRIBUTION WIDTH 14.8 % (11.5-14.5); RED BLOOD CELL CT 3.93 /CUMM (4.70-6.10); WHITE BLOOD CELL COUNT 8.7 /CUMM (4.8-10.8)
--- NOTE | 2018-01-10 08:46 | Cons- Wound Care ---
General Information and HPI Consulting Request Date of Consult: 01/10/18 Requested By: Kinsey Marte MD Reason for Consult: Right lower extremity venous stasis ulcer present on admission History of Present Illness: Patient is a 62-year-old gentleman living in his truck with diabetes cardiomyopathy venous hypertension admitted with increasing right lower extremity edema and lower extremity ulceration. He's been treated for suspected cellulitis. Allergies/Medications Allergies: Coded Allergies: No Known Allergies (01/08/18) Home Med List: Albuterol Sulfate (Proair Hfa) 90 MCG HFA.AER.AD 2 PUF INH Q4-6 PRN PRN COPD (Reported) Ammonium Lactate 12 % CREAM..G. 12 % TP BID foot fissures . Carvedilol (Coreg) 25 MG TABLET 1 TAB PO BID HIGH BLOOD PRESSURE (Reported) Carvedilol 25 MG TABLET 1 TAB PO BID HEART (Reported) Colchicine (Colcrys) 0.6 MG TABLET 1 TAB PO DAILY GOUT (Reported) Febuxostat (Uloric) 40 MG TABLET 40 MG PO DAILY Gout Ferrous Sulfate 325 MG (65 MG IRON) TABLET 1 TAB PO DAILY anemia Fluticasone/Salmeterol (Advair 500-50 Diskus) 500 MCG-50 MCG/DOSE BLST.W.DEV 1 PUF INH BID COPD (Reported) Furosemide (Lasix) 40 MG TABLET 1 TAB PO QPM DIURETIC (Reported) Furosemide (Lasix) 80 MG TABLET 1 TAB PO QAM DIURETIC (Reported) Gabapentin 400 MG CAPSULE 1 CAP PO TID NEUROPATHY (Reported) Glimepiride 1 MG TABLET 1 TAB PO BID DM (Reported) Hydroxyzine Hydrochloride (Atarax) 50 MG TABLET 2 TAB PO BID MUCUS (Reported) Ibuprofen 800 MG TABLET 1 TAB PO BID PAIN/INFLAMMATION (Reported) Ipratropium/Albuterol Sulfate (Combivent Respimat Inhal [place]) 20 MCG-100 MCG/ ACTUATION MIST.INHAL 2 PUFF INH BID copd (Reported) Lisinopril 10 MG TABLET 1 TAB PO DAILY BP (Reported) Metformin HCl (Glucophage) 1,000 MG TABLET 1 TAB PO BID DM (Reported) Montelukast Sodium (Singulair) 10 MG TABLET 1 TAB PO DAILY RESPIRATORY ( Reported) Oxycodone HCl/Acetaminophen (Percocet 10-325 MG Tablet) 10 MG-325 MG TABLET 1 TAB PO TID PRN PAIN (Reported) Simvastatin (Simvastatin*) 10 MG TABLET 1 TAB PO QPM CHOLESTEROL (Reported) Umeclidinium [place] (Incruse Ellipta) 62.5 MCG/ACTUATION BLST.W.DEV 1 PUFF INH DAILY COPD (Reported) Review of Systems Review of Systems: Noncontributory Past History Travel History Traveled to [place] past 21 day No Medical History Blood Transfusion Hx: Yes Neurological: NONE EENT: NONE Cardiovascular: cardiomyopathy, CHF, chronic venous insuff, hyperlipidemia, CARDIAC ARREST S/P LWC PACER Respiratory: COPD, SLEEP APNEA O2 3.5L NC @ BASELINE Gastrointestinal: constipation, peptic ulcer disease, EGD 08/10 showed numerous gastric and duodenal ulcers Hepatic: NONE Renal: benign prost hyperplasia, TEMPORORY DIALYSIS Musculoskeletal: gout, rheumatoid arthritis Psychiatric: NONE Endocrine: diabetes Blood Disorders: anemia Cancer(s): NONE 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 Other Who Do You Live With? self Services at Home: Oxygen Primary Language: Andorran Smoking Status: Never Smoked ETOH Use: denies use Illicit Drug Use: denies illicit drug use Functional Ability ADLs Independent: dressing, eating, toileting, bathing. Ambulation: independent IADLs Independent: shopping, housework, finances, food prep, telephone, transportation , medication admin. Exam & Diagnostic Data Vital Signs and I&O Vital Signs Result Date Time B/P 112/62 01/10 0823 Pulse 60 01/10 0823 Pulse Ox 96 01/10 0803 O2 Delivery Nasal Cannula 01/10 0803 O2 Flow Rate 3.0L 01/10 0803 Temp 97.5 01/10 0600 Resp 18 01/10 0600 Intake & Output 01/10 0000 01/09 1600 01/09 0800 Intake Total 200 1300 1260 Output Total 550 1600 800 Balance -350 -300 460 Intake, IV 100 110 Intake, Oral 200 1200 1150 Output, Urine 550 1600 800 Bryan of the right lower extremity shows there to be erythema pitting brawny edema there are 2 venous stasis ulcers with clean red bases measuring approximately 4 x 2.5 cm 2 x 1 cm distal pulses are unable to be palpated due to edema Assessment/Plan Impression/Plan: 62-year-old with chronic venous insufficiency compounded by chronic kidney disease diabetes poor living situation and untreated sleep apnea admitted with recurrent right lower extremity venous stasis ulcers and possible cellulitis. Recommend aggressive leg elevation. Wound care daily cleansing and Xeroform daily. Negative fluid balance. Patient can be placed in an Geo wrap compression. Consult Acknowledgment - Thank you for your consult request.
--- NOTE | 2018-01-10 09:35 | PN- Cardiology ---
Subjective Subjective: The patient's doing well, stable. Only complains of pain related issues. Objective Vital Signs and I&Os Vital Signs Date Time Temp Pulse Resp B/P B/P Pulse O2 O2 Flow FiO2 Mean Ox Delivery Rate 01/10 0823 60 112/62 01/10 0823 60 112/62 01/10 0803 96 Nasal 3.0L Cannula 01/10 0800 Nasal 3.5L Cannula 01/10 0600 97.5 60 18 112/62 96 Nasal 3.5L Cannula 01/10 0000 Nasal 3.5L Cannula 01/09 2300 98.6 61 20 102/70 97 01/09 1537 97.8 67 20 116/60 92 Intake & Output 01/10 1600 01/10 0800 01/10 0000 01/09 1600 01/09 0800 01/09 0000 Intake Total 950 257 4066 1260 1000 Output Total 514 202 5349 800 Balance -170 -350 -970 894 6027 Intake, IV 130 100 110 Intake, Oral 626 655 4968 1150 1000 Output, Urine 090 531 0716 800 Patient 400 lb Weight Weight Bed scale Measurement Method Current Medications: Current Medications Sig/Keaton Start time Last Medication Dose Route Stop Time Status Admin Acetaminophen 650 MG Q6P PRN 01/08 2115 AC PO Albuterol Sulfate 3 ML TID 01/08 2200 AC 01/10 INH 0801 Albuterol Sulfate 2 PUF Q4-6 PRN PRN 01/08 2115 AC INH Ammonium Lactate 1 IDANIA BID 01/08 2200 AC 01/10 TOP 0824 Ampicillin Sodium/ 3,000 MG Q6 01/08 2359 AC 01/10 Sulbactam Sodium IV 0526 Sodium Chloride 100 ML Atorvastatin Calcium 5 MG 1700 01/09 1700 AC 01/09 PO 1618 Budesonide/ 2 PUF BID 01/08 220 AC 01/10 Formoterol Fumarate INH 0824 Carvedilol 25 MG BID 01/08 2200 AC 01/10 PO 0823 Febuxostat 40 MG DAILY 01/09 1000 AC 01/10 PO 0823 Ferrous Sulfate 325 MG DAILY 01/09 1000 AC 01/10 PO 0823 Furosemide 40 MG 7:30 AM, & 4:30 PM 01/09 0730 AC 01/10 IV 0823 Gabapentin 400 MG Q8 01/08 2200 AC 01/10 PO 0526 Guaifenesin 600 MG Q12 01/08 2200 AC 01/10 PO 0823 Heparin Sodium 5,000 UNIT Q8 01/08 2200 AC 01/10 (Porcine) SC 0526 Insulin Aspart 0 TIDAC 01/09 0800 AC 01/09 SC 1244 Lisinopril 10 MG DAILY 01/09 1000 AC 01/10 PO 0823 Oxycodone/ 1 TAB ONCE ONE 01/09 2215 DC 01/09 Acetaminophen PO 01/10 2216 221 Oxycodone/ 1 TAB Q6 PRN 01/08 2115 AC 01/09 Acetaminophen PO 2010 Results Last 48 Hrs of Labs/Mics: Laboratory Tests 01/10/18 0622: CBC w Diff NO MAN DIFF REQ, RBC 3.93 L, MCV 86.3, MCH 27.4, MCHC 31.8 L, RDW 14.8 H, MPV 6.9 L, Gran % 57.9, Lymphocytes % 31.3, Monocytes % 8.3, Eosinophils % 2.3, Basophils % 0.2, Absolute Granulocytes 5.0, Absolute Lymphocytes 2.7, Absolute Monocytes 0.7 H, Absolute Eosinophils 0.2, Absolute Basophils 0 01/09/18 1145: CBC w Diff NO MAN DIFF REQ, RBC 3.99 L, MCV 85.4, MCH 27.5, MCHC 32.3 L, RDW 14.3, MPV 6.9 L, Gran % 65.2, Lymphocytes % 22.4, Monocytes % 11.5 H, Eosinophils % 0.7, Basophils % 0.2, Absolute Granulocytes 5.3, Absolute Lymphocytes 1.8, Absolute Monocytes 0.9 H, Absolute Eosinophils 0.1, Absolute Basophils 0 01/09/18 0625: Anion Gap 9, Estimated GFR > 60, BUN/Creatinine Ratio 22.7 01/08/18 1221: Anion Gap 13, Estimated GFR 52 L, BUN/Creatinine Ratio 18.6, Glucose 148 H, Calcium 9.2, Magnesium 1.8, Total Bilirubin 1.1, AST 10 L, ALT 19 L, Alkaline Phosphatase 80, Troponin I 0.04, Tue-O-Sacxdbalekh Pept 1790 H, Total Protein 6.9, Albumin 3.8, Globulin 3.1, Albumin/Globulin Ratio 1.2, CBC w Diff NO MAN DIFF REQ, RBC 4.25 L, MCV 84.3, MCH 27.4, MCHC 32.5 L, RDW 14.3, MPV 6.7 L, Gran % 70.5, Lymphocytes % 20.0 L, Monocytes % 7.5, Eosinophils % 1.6, Basophils % 0.4, Absolute Granulocytes 6.7 H, Absolute Lymphocytes 1.9, Absolute Monocytes 0.7 H, Absolute Eosinophils 0.2, Absolute Basophils 0 Assessment/Plan Assessment/Plan Assessment: 1. Acute on chronic HFrEF secondary to non ischemic cardiomyopathy. 2. AICD 3. Chronic venous insufficiency with LE edema and stasis changes 4. RLE cellulitis. Recommendations: - COntnue IV lasix diuresis with monitoring of I/Os , renal function and daily weights - Echocardiogram - ANtibiotics - Continue all conservative measures for LE edema ( sodium restriction, elevation, support stockngs when tolerated. consideraton for outpatient venous closure with vascular surgery, etc.) - Pain control Continue telemetry? Yes
[2018-01-10 14:57] VITALS: BP 102/64
[2018-01-10 22:05] VITALS: BP 126/60
[2018-01-11 06:52] VITALS: BP 110/50
--- NOTE | 2018-01-11 06:58 | PN- Housestaff ---
Jarrod HARPER,[facility] 01/11/18 0658: Subjective Follow-up For: Acute decompensated heart failure Right lower extremity cellulitis Bilateral venous stasis dermatitis Tele-Events Since Last Visit: Heart rate 62-70, PVC QRS 0.08-.12 UT 0.14-.16 Subjective: No acute transplant. Patient still states he has left heel pain and lower extremity pain. States the pain is a 10 out of 10. States that erythema has not improved. States he still have low-grade shortness breath. States that he still has a cough with brownish yellow sputum. Has felt a little feverish. Review of Systems Constitutional: Reports: see HPI, fever. Respiratory: Reports: cough, short of breath, sputum production. Musculoskeletal: Reports: muscle pain. Skin: Reports: see HPI, erythema. Objective Last 24 Hrs of Vital Signs/I&O Vital Signs Date Time Temp Pulse Resp B/P B/P Pulse O2 O2 Flow FiO2 Mean Ox Delivery Rate 01/11 1428 97.9 59 24 108/60 94 Nasal 3.0L Cannula 01/11 0936 96 Nasal 2.0L Cannula 01/11 0918 60 110/50 01/11 0918 60 110/50 01/11 0652 98.6 60 20 110/50 96 Nasal 2.0L Cannula 01/11 0000 94 Nasal 3.5L Cannula 01/10 2208 61 20 126/60 01/10 2205 98.4 61 20 126/60 96 01/10 2025 96 Nasal 3.0L Cannula 01/10 1720 94 Nasal 3.5L Cannula 01/10 1457 98.4 62 20 102/64 93 Nasal 3.0L Cannula Intake & Output 01/11 1600 01/11 0800 01/11 0000 Intake Total 350 500 840 Output Total 1800 650 Balance 350 -1300 190 Intake, IV 110 40 Intake, Oral 240 500 800 Output, Urine 1800 650 Patient 402 lb Weight Physical Exam General Appearance: Alert, Oriented X3, Cooperative, No Acute Distress, obese Cardiovascular: Regular Rate, Normal S1, Normal S2 Lungs: Clear to Auscultation, Normal Air Movement Abdomen: Normal Bowel Sounds, Soft, No Tenderness Extremities: 2+ bilateral lower extremity edema, right lower extremity erythema diffusely up to 3/4 of leg, left lower extremity chronic venous stasis changes. Current Medications: Current Medications Sig/Keaton Start time Last Medication Dose Route Stop Time Status Admin Albuterol Sulfate 3 ML TID 01/08 2200 AC 01/11 INH 1413 Albuterol Sulfate 2 PUF Q4-6 PRN PRN 01/08 2115 AC INH Ammonium Lactate 1 IDANIA BID 01/08 220 AC 01/11 TOP 0917 Ampicillin Sodium/ 3,000 MG Q6H 01/11 0300 AC 01/11 Sulbactam Sodium IV 1412 Sodium Chloride 100 ML Ampicillin Sodium/ 3,000 MG Q6 01/08 2359 DC 01/10 Sulbactam Sodium IV 2048 Sodium Chloride 100 ML Atorvastatin Calcium 5 MG 1700 01/09 1700 AC 01/10 PO 1610 Budesonide/ 2 PUF BID 01/08 2200 AC 01/11 Formoterol Fumarate INH 0918 Carvedilol 25 MG BID 01/08 220 AC 01/11 PO 0918 Febuxostat 40 MG DAILY 01/09 1000 AC 01/11 PO 0919 Ferrous Sulfate 325 MG DAILY 01/09 1000 AC 01/11 PO 0918 Furosemide 40 MG 7:30 AM, & 4:30 PM 01/09 0730 AC 01/11 IV 0550 Gabapentin 400 MG Q8 01/08 2200 AC 01/11 PO 1412 Guaifenesin 600 MG Q12 01/08 2200 AC 01/11 PO 0918 Heparin Sodium 5,000 UNIT Q8 01/08 220 AC 01/11 (Porcine) SC 1412 Insulin Aspart 0 TIDAC 01/09 0800 AC 01/10 SC 1611 Lisinopril 10 MG DAILY 01/09 1000 AC 01/11 PO 0918 Oxycodone/ 2 TAB Q6P PRN 01/10 1000 AC 01/11 Acetaminophen PO 1018 Tramadol HCl 50 MG Q8P PRN 01/10 1015 AC 01/11 PO 0809 Last 24 Hrs of Lab/Joaquim Results Last 24 Hrs of Labs/Mics: Laboratory Tests 01/11/18 0637: Anion Gap 8, Estimated GFR 44 L, BUN/Creatinine Ratio 19.4, CBC w Diff NO MAN DIFF REQ, RBC 3.72 L, MCV 86.8, MCH 27.6, MCHC 31.8 L, RDW 14.7 H, MPV 7.0 L , Gran % 65.0, Lymphocytes % 22.7, Monocytes % 10.4 H, Eosinophils % 1.6, Basophils % 0.3, Absolute Granulocytes 5.2, Absolute Lymphocytes 1.8, Absolute Monocytes 0.8 H, Absolute Eosinophils 0.1, Absolute Basophils 0 Microbiology 01/11 1120 LOWER RESP: Respiratory Culture - COLB 01/11 1120 LOWER RESP: Gram Stain - COLB Assessment/Plan Assessment: 62yo M h past medical history of heart failure with reduced ejection fraction of 25-30%, mild tricuspid regurg, nonischemic cardiomyopathy status post pacemaker, COPD on 3.5 L of oxygen, obstructive sleep apnea not on CPAP, diabetes, chronic kidney disease, hyperlipidemia, peptic ulcer disease, chronic lower extremity edema, and gout s/p soft tissue debridement of left foot with multiple admissions for persistent gout and COPD exacerbation presenting for a chief complain of RLE extremity swelling, oozing, SOB, L heel pain. P: #?CHF exascerbation BNP 1790 Cr 1.6 (01/11) -Holding Lasix for LISETTE -f/u cardiology recommendations -f/u repeat echo -cont i/o, daily weights #RLE cellulitis and b/l chronic venous stasis dermatitis Doppler ultrasound negative for DVT -cont unasyn -monitor for fevers and WBC -Follow care recommendations #diabetes with ckd Cr 1.6 -cont novolog sliding scale -cont monitor renal function #chronic medical conditions: hld, htn, cardiomyopathy, anemia, gout, copd, neuropathy -cont atorvastatin, lisinopril, ferrous sulfate, febuxostat, mucinex, gabapentin , carvediol, symbicort, #DVT ppx - heparin subq #FULL CODE Problem List: 1. Chronic venous stasis dermatitis 2. Cellulitis 3. CHF (congestive heart failure) Pain Ratin Pain Location: none Pain Goal: Pain 4 or less Pain Plan: pain pathway Tomorrow's Labs & Rationales: cbc bep Parth Membrenolisa 01/11/18 1346: Attending MD Review Statement Attending Statement Attending MD Statement: examined this patient, discuss w/resident/PA/CONSUMER LOAN OFFICER, agreed w/resident/PA/CONSUMER LOAN OFFICER, reviewed EMR data (avail), discussed with nursing, discussed with case mgmt Attending Assessment/Plan: On unasyn for cellulitis lower extremity. Cont on lasix for LE edema and CHF. d/w pt the care plan.
[2018-01-11 08:23] LABS: ABSOLUTE BASOPHIL COUNT 0 /CUMM (0.0-0.2); ABSOLUTE EOSINOPHIL COUNT 0.1 /CUMM (0.0-0.7); ABSOLUTE GRANULOCYTE CT 5.2 /CUMM (1.4-6.5); ABSOLUTE LYMPH COUNT 1.8 /CUMM (1.2-3.4); ABSOLUTE MONOCYTE COUNT 0.8 /CUMM (0.10-0.60); BASOPHIL % 0.3 % (0.0-2.0); EOSINOPHIL % 1.6 % (0-5); HEMATOCRIT 32.2 % (42-52); MEAN CORPUSCULAR HGB 27.6 PG (27.0-31.0); MEAN CORPUSCULAR HGB CONC 31.8 G/DL (33.0-37.0); MEAN CORPUSCULAR VOLUME 86.8 FL (80.0-94.0); PLATELET COUNT 185 /CUMM (130-400); RBC DISTRIBUTION WIDTH 14.7 % (11.5-14.5); RED BLOOD CELL CT 3.72 /CUMM (4.70-6.10)
--- NOTE | 2018-01-11 12:22 | PN- Cardiology ---
Subjective Subjective: No chest pain. He continues to have mild shortness of breath. He continues to have a cough He continues to have a cough. Lower extremity edema is slightly better. Lower extremity edema is slightly better. No palpitations. No lightheadedness or dizziness. No nausea or vomiting. Objective Vital Signs and I&Os Vital Signs Date Time Temp Pulse Resp B/P B/P Pulse O2 O2 Flow FiO2 Mean Ox Delivery Rate 01/11 1428 97.9 59 24 108/60 94 Nasal 3.0L Cannula 01/11 0936 96 Nasal 2.0L Cannula 01/11 0918 60 110/50 01/11 0918 60 110/50 01/11 0652 98.6 60 20 110/50 96 Nasal 2.0L Cannula 01/11 0000 94 Nasal 3.5L Cannula 01/108 61 20 126/60 01/10 2205 98.4 61 20 126/60 96 01/10 2025 96 Nasal 3.0L Cannula 01/10 1720 94 Nasal 3.5L Cannula Intake & Output 01/11 1600 01/11 0800 01/11 0000 01/10 1600 01/10 0800 01/10 0000 Intake Total 350 764 170 7266 330 200 Output Total 7628 803 6288 500 550 Balance 350 -1300 190 -300 -170 -350 Intake, IV 110 40 130 Intake, Oral 240 070 028 1109 200 200 Output, Urine 7340 177 7267 500 550 Patient 402 lb Weight No palpitations. No lightheadedness or dizziness. No nausea or vomiting. Physical Exam: Gen: NAD HEENT: normal Lungs: Bilateral rhonci, normal resp. effort Heart: RRR, S1, S2, 2/6 systoliuc murmur Abdomen: Soft, nontender, no masses Extremities: 2+ edema Neuro: Alert and oriented x 3, cranial nerves intact Current Medications: Current Medications Sig/Keaton Start time Last Medication Dose Route Stop Time Status Admin Albuterol Sulfate 3 ML TID 01/08 2200 AC 01/11 INH 1413 Albuterol Sulfate 2 PUF Q4-6 PRN PRN 01/08 2115 AC INH Ammonium Lactate 1 IDANIA BID 01/08 2200 AC 01/11 TOP 0917 Ampicillin Sodium/ 3,000 MG Q6H 01/11 0300 AC 01/11 Sulbactam Sodium IV 1412 Sodium Chloride 100 ML Ampicillin Sodium/ 3,000 MG Q6 01/08 2359 DC 01/10 Sulbactam Sodium IV 2048 Sodium Chloride 100 ML Atorvastatin Calcium 5 MG 1700 01/09 1700 AC 01/10 PO 1610 Budesonide/ 2 PUF BID 01/08 220 AC 01/11 Formoterol Fumarate INH 0918 Carvedilol 25 MG BID 01/08 2200 AC 01/11 PO 0918 Febuxostat 40 MG DAILY 01/09 1000 AC 01/11 PO 0919 Ferrous Sulfate 325 MG DAILY 01/09 1000 AC 01/11 PO 0918 Furosemide 40 MG 7:30 AM, & 4:30 PM 01/09 0730 AC 01/11 IV 0550 Gabapentin 400 MG Q8 01/08 2200 AC 01/11 PO 1412 Guaifenesin 600 MG Q12 01/08 220 AC 01/11 PO 0918 Heparin Sodium 5,000 UNIT Q8 01/08 2200 AC 01/11 (Porcine) SC 1412 Insulin Aspart 0 TIDAC 01/09 0800 AC 01/10 SC 1611 Lisinopril 10 MG DAILY 01/09 1000 AC 01/11 PO 0918 Oxycodone/ 2 TAB Q6P PRN 01/10 1000 AC 01/11 Acetaminophen PO 1018 Tramadol HCl 50 MG Q8P PRN 01/10 1015 AC 01/11 PO 0809 Results Last 48 Hrs of Labs/Mics: Laboratory Tests 01/11/18 0637: Anion Gap 8, Estimated GFR 44 L, BUN/Creatinine Ratio 19.4, CBC w Diff NO MAN DIFF REQ, RBC 3.72 L, MCV 86.8, MCH 27.6, MCHC 31.8 L, RDW 14.7 H, MPV 7.0 L , Gran % 65.0, Lymphocytes % 22.7, Monocytes % 10.4 H, Eosinophils % 1.6, Basophils % 0.3, Absolute Granulocytes 5.2, Absolute Lymphocytes 1.8, Absolute Monocytes 0.8 H, Absolute Eosinophils 0.1, Absolute Basophils 0 01/10/18 0622: CBC w Diff NO MAN DIFF REQ, RBC 3.93 L, MCV 86.3, MCH 27.4, MCHC 31.8 L, RDW 14.8 H, MPV 6.9 L, Gran % 57.9, Lymphocytes % 31.3, Monocytes % 8.3, Eosinophils % 2.3, Basophils % 0.2, Absolute Granulocytes 5.0, Absolute Lymphocytes 2.7, Absolute Monocytes 0.7 H, Absolute Eosinophils 0.2, Absolute Basophils 0 Recent Imaging Studies: Echo 01/11/18: 1. THis was a technically difficult and very limited study due to the patient's body habitus. 2. Aortic sclerosis is present. 3. MITral leaflet thickening is present with moderate anular calcification and minimal to mild mitral insufficiency with left atrial enlargement. 4. There is no obvious pericardial fluid present. 5. The left ventricular chamber is moderately enlarged with eccentric hypertrophy and global hypokinesia with an ejection fraction of approximately 30-35%. Additional images were obtained following the administration of IV contrast. 6. THe right heart structures were not well visualized. 7. A MUGA scan might be useful in this patient to better assess LV systolic function and wall motion. Assessment/Plan Assessment/Plan Assessment: 1. Acute on chronic HFrEF secondary to non ischemic cardiomyopathy. 2. AICD 3. Chronic venous insufficiency with LE edema and stasis changes 4. RLE cellulitis. 5. Acute kidney injury secondary to diuretic therapy Plan: * Hold Lasix given elevated creatinine. * Antibiotic therapy * Monitory input and output * Check BMP in the AM Continue telemetry? Yes
[2018-01-11 14:28] VITALS: BP 108/60
--- NOTE | 2018-01-11 14:56 | ECHOCARDIOGRAM REPORT ---
SUZETTE GRIGSBY Age: 62 : 1955 Gender: M Exam Date: 01/10/2018 13:11 Exam Location: [address] Ht (in): 72 Wt (lb): 355 BSA: 2.94 BP: 102 / 70 Ordering Physician: Dinesh Garay MD Referring Physician: Daksha George MD Technologist: Ciara Gann [facility] Room Number: 188 Indications: HEART FAILURE Rhythm: Sinus Technical Quality: Poor, Very technically difficult study FINDINGS Left Ventricle Moderate left ventricular dilatation. Left ventricular wall thickness increased. Moderately abnormal left ventricular ejection fraction estimated at 30-35%. Moderately reduced global left ventricular systolic function. Right Ventricle Right ventricle not well visualized. Right Atrium Right atrium not well visualized. Left Atrium Left atrial dilatation. Mitral Valve Mitral valve thickened. Moderate mitral annular calcification. Trace to mild mitral regurgitation. Aortic Valve Trileaflet aortic valve. Diffuse thickening (sclerosis) of the aortic valve cusps without reduced excursion. No aortic stenosis. No aortic regurgitation. Tricuspid Valve Tricuspid valve not well visualized. Pulmonic Valve Pulmonic valve not well visualized. Pericardium No pericardial effusion. Great Vessels Aortic root and proximal ascending aorta not well visualized, grossly normal. CONCLUSIONS 1. THis was a technically difficult and very limited study due to the patient's body habitus. 2. Aortic sclerosis is present. 3. MITral leaflet thickening is present with moderate anular calcification and minimal to mild mitral insufficiency with left atrial enlargement. 4. There is no obvious pericardial fluid present. 5. The left ventricular chamber is moderately enlarged with eccentric hypertrophy and global hypokinesia with an ejection fraction of approximately 30-35%. Additional images were obtained following the administration of IV contrast. 6. THe right heart structures were not well visualized. 7. A MUGA scan might be useful in this patient to better assess LV systolic function and wall motion. Daksha George M.D. (Electronically Signed) Final Date: 11 January 2018 14:56 MEASUREMENTS (Male / Female) Normal Values 2D ECHO LV Diastolic Diameter PLAX 6.5 cm 4.2 - 5.9 / 3.9 - 5.3 cm LV Systolic Diameter PLAX 5.7 cm 2.1 - 4.0 cm LV Fractional Shortening PLAX 12.3 % 25 - 46 % LV Ejection Fraction 2D Teich 25.9 % IVS Diastolic Thickness 1.6 cm LVPW Diastolic Thickness 1.5 cm LV Relative Wall Thickness 0.5 LVOT Diameter 2.5 cm Aortic Root Diameter 3.7 cm LA Systolic Diameter LX 4.3 cm 3.0 - 4.0 / 2.7 - 3.8 cm LA Volume 116.0 cm 18 - 58 / 22 - 52 cm Ascending Aorta Diameter 3.8 cm DOPPLER AV Peak Velocity 155.0 cm/s AV Peak Gradient 9.6 mmHg AV Mean Velocity 109.0 cm/s AV Mean Gradient 5.0 mmHg AV Velocity Time Integral 33.9 cm LVOT Peak Velocity 108.0 cm/s LVOT Peak Gradient 4.7 mmHg LVOT Mean Velocity 79.7 cm/s LVOT Mean Gradient 3.0 mmHg LVOT Velocity Time Integral 22.1 cm LVOT Stroke Volume 108.5 cm AV Area Cont Eq vti 3.2 cm AV Area Cont Eq pk 3.4 cm MV Peak Velocity 116.0 cm/s MV Peak Gradient 5.4 mmHg MV Mean Velocity 57.0 cm/s MV Mean Gradient 2.0 mmHg Mitral E Point Velocity 112.0 cm/s Mitral A Point Velocity 109.0 cm/s Mitral E to A Ratio 1.0 MV PHT Velocity 116.0 cm/s MV Deceleration Wilkinson 318.0 cm/s MV Pressure Half Time 109.4 ms MV Area PHT 2.0 cm MV Deceleration Time 408.0 ms PV Peak Velocity 114.0 cm/s PV Peak Gradient 5.2 mmHg PV Mean Velocity 61.7 cm/s PV Mean Gradient 2.0 mmHg PV Velocity Time Integral 20.8 cm LV E' Lateral Velocity 5.9 cm/s Mitral E to LV E' Lateral Ratio 19.1 LV E' Septal Velocity 5.7 cm/s Mitral E to LV E' Septal Ratio 19.6
--- NOTE | 2018-01-11 18:33 | Event Note ---
Event Note Event Note: S: Pt was weak and unable to stand B: Pt admitted for RLE celluitis, ?chf exascerbation, and b/l venous stasis dermatitis A/R: Patient states that he was naseauous. Tried getting up to urinate but felt diffuse weakness. Given 1x tigan. BP 132/84. BS was 168. Also evaluated by resident who thought he may have had vasovagal syncope. Patient was able to walk to bathroom later on his own and felt better after vomiting. He was then hungry and started eating dinner.
[2018-01-11 22:00] VITALS: BP 132/80
[2018-01-12 06:58] VITALS: BP 140/88
--- NOTE | 2018-01-12 07:23 | PN- Housestaff ---
Jarrod HARPER,[facility], [place] 01/12/18 0722: Subjective Follow-up For: Acute decompensated heart failure Right lower extremity cellulitis Bilateral venous stasis dermatitis Tele-Events Since Last Visit: NSR 62-73, PVC, 4 beat vtach QRS .1 UT .18 Subjective: Please see event note regarding last night when patient had suddent weakness and vomiting. Patient complaining this morning of hand flapping uncontrollably. States that is has occured in his L hand chronically but now is affecting his R hand. He states that he does not have much control of the flaps. Review of Systems Constitutional: Reports: see HPI. Neurological/Psychological: Reports: see HPI (hand flapping). Objective Last 24 Hrs of Vital Signs/I&O Vital Signs Date Time Temp Pulse Resp B/P B/P Pulse O2 O2 Flow FiO2 Mean Ox Delivery Rate 01/12 1905 96 Nasal 3.0L Cannula 01/12 1600 Nasal 3.5L Cannula 01/12 1418 98.7 60 22 160/80 95 Nasal 3.0L Cannula 01/12 1058 94 Nasal 3.5L Cannula 01/12 0854 55 140/88 01/12 0854 55 140/88 01/12 0800 93 Nasal 3.5L Cannula 01/12 0658 98.6 55 20 140/88 93 Nasal 2.0L Cannula 01/11 2200 68 22 132/80 Nasal 3.5L Cannula 01/11 2124 Nasal 3.5L Cannula 01/11 2107 64 132/84 Intake & Output 01/12 1600 01/12 0800 01/12 0000 Intake Total 620 370 240 Output Total 425 350 Balance 195 20 240 Intake, IV 220 130 120 Intake, Oral 400 240 120 Number 0 0 0 Bowel Movements Output, Urine 425 350 Patient 402 lb Weight Weight Bed scale Measurement Method Physical Exam General Appearance: Alert, Oriented X3, Cooperative, No Acute Distress Cardiovascular: Regular Rate, Normal S1, Normal S2 Lungs: Clear to Auscultation, Normal Air Movement Abdomen: Normal Bowel Sounds, Soft, No Tenderness Neurological: CN 2-12 grossly intact except lack of eye convergence, 4/5 upper extremity strenght and 5/5 lower extremity strength, Flapping tremor b/l when asked to out stretch hand, slow cerebellar testing such as finger to nose and alternating movements Extremities: 2+ LE edema, RLE diffusely erythematous up to 3/4 of leg. L chronic venous stasis changes > R Vascular: 2+ radial pulses Current Medications: Current Medications Sig/Keaton Start time Last Medication Dose Route Stop Time Status Admin Albuterol Sulfate 3 ML TID 01/08 2200 AC 01/12 INH 1905 Albuterol Sulfate 2 PUF Q4-6 PRN PRN 01/08 2115 AC INH Ammonium Lactate 1 IDANIA BID 01/08 2200 AC 01/12 TOP 0856 Ampicillin Sodium/ 3,000 MG Q6H 01/11 0300 AC 01/12 Sulbactam Sodium IV 1457 Sodium Chloride 100 ML Atorvastatin Calcium 5 MG 1700 01/09 1700 AC 01/12 PO 1806 Budesonide/ 2 PUF BID 01/08 2200 AC 01/12 Formoterol Fumarate INH 1023 Carvedilol 25 MG BID 01/08 2200 AC 01/12 PO 0854 Febuxostat 40 MG DAILY 01/09 1000 AC 01/12 PO 0854 Ferrous Sulfate 325 MG DAILY 01/09 1000 AC 01/12 PO 0852 Furosemide 40 MG 7:30 AM, & 4:30 PM 01/12 1630 AC 01/12 IV 1630 Gabapentin 400 MG Q8 01/08 2200 AC 01/12 PO 1422 Guaifenesin 600 MG Q12 01/08 2200 AC 01/12 PO 0853 Heparin Sodium 5,000 UNIT Q8 01/08 2200 AC 01/12 (Porcine) SC 1423 Hydroxyzine HCl 100 MG DAILY 01/13 1000 AC PO Hydroxyzine HCl 50 MG ONCE ONE 01/12 1330 DC 01/12 PO 01/12 1331 1422 Hydroxyzine HCl 100 MG ONCE ONE 01/12 1315 CAN PO 01/12 1316 Hydroxyzine HCl 50 MG DAILY 01/12 1030 DC 01/12 PO 1204 Insulin Aspart 0 TIDAC 01/09 0800 AC 01/12 SC 1812 Lisinopril 10 MG DAILY 01/12 1000 AC 01/12 PO 0854 Lisinopril 10 MG DAILY 01/09 1000 DC 01/11 PO 0918 Oxycodone/ 2 TAB Q6P PRN 01/10 1000 DC 01/12 Acetaminophen PO 0655 Tramadol HCl 50 MG Q8P PRN 01/10 1015 AC 01/11 PO 0809 Trimethobenzamide HCl 200 MG ONCE ONE 01/12 0145 DC 01/12 IM 01/12 0146 0155 Last 24 Hrs of Lab/Joaquim Results Last 24 Hrs of Labs/Mics: Laboratory Tests 01/12/18 1230: Urine Opiates Screen 255, Methadone Screen < 40, Barbiturate Screen < 60, Ur Phencyclidine Scrn < 6.00, Amphetamines Screen < 100, U Benzodiazepines Scrn < 85, Urine Cocaine Screen < 50, Urine Cannabis Screen < 5.00 01/12/18 0707: Anion Gap 9, Estimated GFR > 60, BUN/Creatinine Ratio 19.1, Magnesium 2.4 H, Total Bilirubin 0.7, Direct Bilirubin 0.5 H, AST 12 L, ALT 28, Alkaline Phosphatase 80, Total Protein 6.7, Albumin 3.6, CBC w Diff NO MAN DIFF REQ, RBC 3.85 L, MCV 85.6, MCH 27.5, MCHC 32.2 L, RDW 13.9, MPV 6.9 L, Gran % 77.3 H, Lymphocytes % 13.4 L, Monocytes % 8.8, Eosinophils % 0.3, Basophils % 0.2, Absolute Granulocytes 7.1 H, Absolute Lymphocytes 1.2, Absolute Monocytes 0.8 H, Absolute Eosinophils 0, Absolute Basophils 0 Assessment/Plan Assessment: 62yo M h past medical history of heart failure with reduced ejection fraction of 25-30%, mild tricuspid regurg, nonischemic cardiomyopathy status post pacemaker, COPD on 3.5 L of oxygen, obstructive sleep apnea not on CPAP, diabetes, chronic kidney disease, hyperlipidemia, peptic ulcer disease, chronic lower extremity edema, and gout s/p soft tissue debridement of left foot with multiple admissions for persistent gout and COPD exacerbation presenting for a chief complain of RLE extremity swelling, oozing, SOB, L heel pain. P: #?CHF exascerbation BNP 1790 Cr 1.1 (01/12) Echo: EF 30-35% with eccentric hypertrophy and global hypokinesi -resuming lasix as renal function has improved -f/u cardiology recommendations -f/u repeat echo -cont i/o, daily weights -consider MUGA scan to better asses LV function and wall motion -patient will get stress test by Dr. Lord outpatient after discharge tomorrow #suddent onset of weakness and flapping tremors Weakness yesterday most likely due to naseau as patient has been seen today walking to bathroom with walker Flapping tremors were evaluated by neurology: who thinks steroids and beta agonists are the cause -Patient not on any steroids or beta agonists at this time -possible due to carpal tunnel syndrome per neuro -f/u outpatietn for nerve conductions tudy #RLE cellulitis and b/l chronic venous stasis dermatitis Doppler ultrasound negative for DVT -cont unasyn to complete 5 day course -monitor for fevers and WBC -Follow care recommendations #diabetes with ckd Cr 1.1 -cont novolog sliding scale -cont monitor renal function #chronic medical conditions: hld, htn, cardiomyopathy, anemia, gout, copd, neuropathy -cont atorvastatin, lisinopril, ferrous sulfate, febuxostat, mucinex, gabapentin , carvediol, symbicort, #DVT ppx - heparin subq #FULL CODE Problem List: 1. Chronic venous stasis dermatitis 2. Cellulitis 3. CHF (congestive heart failure) 4. Weakness Pain Ratin Pain Location: diffuse Pain Goal: Pain 7 or less Pain Plan: pain pathway Tomorrow's Labs & Rationales: cbc bep mg Membreno,Kanjennieep 01/12/18 1552: Attending MD Review Statement Attending Statement Attending MD Statement: examined this patient, discuss w/resident/PA/[employer]ILE SUPPLY TECHNICIAN, agreed w/resident/PA/[employer] SUPPLY TECHNICIAN, reviewed EMR data (avail), discussed with nursing, discussed with case mgmt Attending Assessment/Plan: pt seen by neuro. Pt says he is scheduled for stress test with Dr George tomorrow. will confirm with cardiology . Possible dc tomorrow. will switch unasyn to augmentin at time of discharge. cont current dose of lasix.
[2018-01-12 08:27] LABS: ABSOLUTE BASOPHIL COUNT 0 /CUMM (0.0-0.2); ABSOLUTE EOSINOPHIL COUNT 0 /CUMM (0.0-0.7); ABSOLUTE GRANULOCYTE CT 7.1 /CUMM (1.4-6.5); ABSOLUTE LYMPH COUNT 1.2 /CUMM (1.2-3.4); ABSOLUTE MONOCYTE COUNT 0.8 /CUMM (0.10-0.60); BASOPHIL % 0.2 % (0.0-2.0); EOSINOPHIL % 0.3 % (0-5); GRANULOCYTE % 77.3 % (42.2-75.2); MEAN CORPUSCULAR HGB 27.5 PG (27.0-31.0); MEAN CORPUSCULAR HGB CONC 32.2 G/DL (33.0-37.0); MEAN CORPUSCULAR VOLUME 85.6 FL (80.0-94.0); MEAN PLATELET VOLUME 6.9 FL (7.4-10.4); PLATELET COUNT 192 /CUMM (130-400); RBC DISTRIBUTION WIDTH 13.9 % (11.5-14.5); RED BLOOD CELL CT 3.85 /CUMM (4.70-6.10); WHITE BLOOD CELL COUNT 9.2 /CUMM (4.8-10.8)
--- NOTE | 2018-01-12 08:53 | PN- Wound Care ---
Subjective Subjective: Patient is not adherent with leg elevation and continually sits with his legs dependent. ENT is to have significant edema. Lower extremity ulcers are unchanged. Objective Vital Signs and I&Os Vital Signs Result Date Time Pulse Ox 93 01/12 658 B/P 140/88 01/12 658 O2 Delivery Nasal Cannula 01/12 658 O2 Flow Rate 2.0L 01/12 658 Temp 98.6 01/12 06 Pulse 55 01/12 0658 Resp 20 01/12 658 Intake & Output 01/12 0000 01/11 1600 01/11 0800 Intake Total 240 960 500 Output Total 1000 1800 Balance Intake, IV 120 220 Intake, Oral 120 740 500 Number 0 0 Bowel Movements Output, Urine 1000 1800 Patient 402 lb Weight Weight Bed scale Measurement Method Is afebrile with normal white count there continues to be bilateral brawny edema venous stasis ulcers are unchanged Impression/Plan Impression/Plan Impression/Plan: 62-year-old with chronic venous insufficiency non-adherent with leg elevation and diuretics held because of transient increasing creatinine. Recommend aggressive leg elevation continue negative fluid balance as renal function allows. Apply bilateral Geo wraps from his toes to his knee compression.
--- NOTE | 2018-01-12 10:08 | CT SCAN REPORT ---
EXAMINATION: CT HEAD WITHOUT CONTRAST CT CERVICAL SPINE WITHOUT CONTRAST CLINICAL INFORMATION: Sudden weakness. Balance changes. COMPARISON: None TECHNIQUE: CT of the head and cervical spine were performed without intravenous contrast. Multiplanar reformats were rendered and reviewed. The acquired images are degraded by motion artifact which limits evaluation. DLP: 1053 mGy-cm. FINDINGS: CT head: Motion artifact significantly limits evaluation of the lower brain and posterior fossa. Within the limitations of the study there is no gross hemorrhage, mass, mass effect, or extra-axial collection. There is no CT evidence of large territory infarction. The ventricles are normal in size without evidence of hydrocephalus. The extracranial structures are within normal limits. CT cervical spine: The cervical vertebral bodies maintain normal heights and alignment. The craniovertebral junction is intact. No fracture is seen. There is intervertebral disc height loss at C5-C6, and C6-C7. There is multilevel endplate spurring, facet arthropathy, and uncovertebral hypertrophy. There is multilevel neural foraminal stenosis which is advanced on the left at C3-C4. The common carotid arteries are partly retropharyngeal. The visualized lung apices are grossly normal. IMPRESSION: Somewhat limited study due to motion artifact which significantly evaluates evaluation of the posterior fossa structures. CT head: No acute intracranial abnormality. CT cervical spine: No cervical spine fracture or traumatic malalignment. Multilevel degenerative spondylotic changes with varying degrees of neural foraminal stenosis. There is advanced neural foraminal stenosis in the left at C3-C4.
--- NOTE | 2018-01-12 11:20 | PN- Cardiology ---
Subjective Subjective: Patient continues to have significant shortness of breath. No chest pain. He continues to have significant edema. No palpitations. He complained of nausea last night. Objective Vital Signs and I&Os Vital Signs Date Time Temp Pulse Resp B/P B/P Pulse O2 O2 Flow FiO2 Mean Ox Delivery Rate 01/12 1058 94 Nasal 3.5L Cannula 01/12 0854 55 140/88 01/12 0854 55 140/88 01/12 0658 98.6 55 20 140/88 93 Nasal 2.0L Cannula 01/11 2200 68 22 132/80 Nasal 3.5L Cannula 01/11 2124 Nasal 3.5L Cannula 01/11 2107 64 132/84 01/11 1915 96 Nasal 3.0L Cannula 01/11 1600 Nasal 3.5L Cannula 01/11 1428 97.9 59 24 108/60 94 Nasal 3.0L Cannula Intake & Output 01/12 1600 01/12 0800 01/12 0000 01/11 1600 01/11 0800 01/11 0000 Intake Total 370 240 960 500 840 Output Total 350 1000 1800 650 Balance 20 190 Intake, IV 130 120 220 40 Intake, Oral 240 120 740 500 800 Number 0 0 0 Bowel Movements Output, Urine 350 1000 1800 650 Patient 402 lb 402 lb Weight Weight Bed scale Measurement Method Physical Exam: Gen: NAD HEENT: normal Lungs: Bilateral rhonci, normal resp. effort Heart: RRR, S1, S2, 2/6 systoliuc murmur Abdomen: Soft, nontender, no masses Extremities: 2+ edema Neuro: Alert and oriented x 3, cranial nerves intact Current Medications: Current Medications Sig/Keaton Start time Last Medication Dose Route Stop Time Status Admin Albuterol Sulfate 3 ML TID 01/08 2200 AC 01/12 INH 1054 Albuterol Sulfate 2 PUF Q4-6 PRN PRN 01/08 2115 AC INH Ammonium Lactate 1 IDANIA BID 01/08 2200 AC 01/12 TOP 0856 Ampicillin Sodium/ 3,000 MG Q6H 01/11 0300 AC 01/12 Sulbactam Sodium IV 1023 Sodium Chloride 100 ML Atorvastatin Calcium 5 MG 1700 01/09 1700 AC 01/11 PO 1750 Budesonide/ 2 PUF BID 01/08 2200 AC 01/12 Formoterol Fumarate INH 1023 Carvedilol 25 MG BID 01/08 2200 AC 01/12 PO 0854 Febuxostat 40 MG DAILY 01/09 1000 AC 01/12 PO 0854 Ferrous Sulfate 325 MG DAILY 01/09 1000 AC 01/12 PO 0852 Furosemide 40 MG 7:30 AM, & 4:30 PM 01/09 0730 DC 01/11 IV 0550 Gabapentin 400 MG Q8 01/08 2200 AC 01/12 PO 0655 Guaifenesin 600 MG Q12 01/08 2200 AC 01/12 PO 0853 Heparin Sodium 5,000 UNIT Q8 01/08 2200 AC 01/12 (Porcine) SC 0655 Hydroxyzine HCl 50 MG DAILY 01/12 1030 AC PO Insulin Aspart 0 TIDAC 01/09 0800 AC 01/11 SC 1750 Lisinopril 10 MG DAILY 01/12 1000 AC 01/12 PO 0854 Lisinopril 10 MG DAILY 01/09 1000 DC 01/11 PO 0918 Oxycodone/ 2 TAB Q6P PRN 01/10 1000 DC 01/12 Acetaminophen PO 0655 Tramadol HCl 50 MG Q8P PRN 01/10 1015 AC 01/11 PO 0809 Trimethobenzamide HCl 200 MG ONCE ONE 01/12 0145 DC 01/12 IM 01/12 0146 0155 Trimethobenzamide HCl 200 MG ONCE ONE 01/11 1730 DC 01/11 IM 01/11 1731 1750 Results Last 48 Hrs of Labs/Mics: Laboratory Tests 01/12/18 0707: Anion Gap 9, Estimated GFR > 60, BUN/Creatinine Ratio 19.1, Total Bilirubin 0.7, Direct Bilirubin 0.5 H, AST 12 L, ALT 28, Alkaline Phosphatase 80, Total Protein 6.7, Albumin 3.6, CBC w Diff NO MAN DIFF REQ, RBC 3.85 L, MCV 85.6, MCH 27.5, MCHC 32.2 L, RDW 13.9, MPV 6.9 L, Gran % 77.3 H, Lymphocytes % 13.4 L, Monocytes % 8.8, Eosinophils % 0.3, Basophils % 0.2, Absolute Granulocytes 7.1 H, Absolute Lymphocytes 1.2, Absolute Monocytes 0.8 H, Absolute Eosinophils 0, Absolute Basophils 0 01/11/18 0637: Anion Gap 8, Estimated GFR 44 L, BUN/Creatinine Ratio 19.4, CBC w Diff NO MAN DIFF REQ, RBC 3.72 L, MCV 86.8, MCH 27.6, MCHC 31.8 L, RDW 14.7 H, MPV 7.0 L , Gran % 65.0, Lymphocytes % 22.7, Monocytes % 10.4 H, Eosinophils % 1.6, Basophils % 0.3, Absolute Granulocytes 5.2, Absolute Lymphocytes 1.8, Absolute Monocytes 0.8 H, Absolute Eosinophils 0.1, Absolute Basophils 0 Recent Imaging Studies: CT scan of the head and cervical spine: Somewhat limited study due to motion artifact which significantly evaluates evaluation of the posterior fossa structures. CT head: No acute intracranial abnormality. CT cervical spine: No cervical spine fracture or traumatic malalignment. Multilevel degenerative spondylotic changes with varying degrees of neural foraminal stenosis. There is advanced neural foraminal stenosis in the left at C3-C4. Assessment/Plan Assessment/Plan Assessment: 1. Acute on chronic HFrEF secondary to non ischemic cardiomyopathy. 2. AICD 3. Chronic venous insufficiency with LE edema and stasis changes 4. RLE cellulitis. 5. Acute kidney injury secondary to diuretic therapy Plan: * Would restart Lasix 40 mg IV every 12 hours now that renal function has improved * Antibiotic therapy * Monitor input and output * Repeat basic metabolic profile in the morning Continue telemetry? Yes
--- NOTE | 2018-01-12 13:29 | Cons- Neurology ---
General Information and HPI Consulting Request Date of Consult: 01/12/18 Requested By: Ingris Membreno MD History of Present Illness: 62-year-old male with multiple medical problems including nonischemic cardiomyopathy prior pacemaker insertion, COPD and obstructive sleep apnea was admitted several days ago with increasing edema and cellulitis of the right lower extremity as well as complaints of dyspnea, cough and chest pain. He was treated with multiple medications including Symbicort and albuterol. Yesterday, he noted tremulousness of the upper extremities bilaterally which is unusual for him. This has improved today. He himself questions whether this could be due to medications. CAT scan of the brain was performed and showed no acute abnormalities. Allergies/Medications Allergies: Coded Allergies: No Known Allergies (01/08/18) Home Med List: Albuterol Sulfate (Proair Hfa) 90 MCG HFA.AER.AD 2 PUF INH Q4-6 PRN PRN COPD (Reported) Ammonium Lactate 12 % CREAM..G. 12 % TP BID foot fissures . Carvedilol (Coreg) 25 MG TABLET 1 TAB PO BID HIGH BLOOD PRESSURE (Reported) Carvedilol 25 MG TABLET 1 TAB PO BID HEART (Reported) Colchicine (Colcrys) 0.6 MG TABLET 1 TAB PO DAILY GOUT (Reported) Febuxostat (Uloric) 40 MG TABLET 40 MG PO DAILY Gout Ferrous Sulfate 325 MG (65 MG IRON) TABLET 1 TAB PO DAILY anemia Fluticasone/Salmeterol (Advair 500-50 Diskus) 500 MCG-50 MCG/DOSE BLST.W.DEV 1 PUF INH BID COPD (Reported) Furosemide (Lasix) 40 MG TABLET 1 TAB PO QPM DIURETIC (Reported) Furosemide (Lasix) 80 MG TABLET 1 TAB PO QAM DIURETIC (Reported) Gabapentin 400 MG CAPSULE 1 CAP PO TID NEUROPATHY (Reported) Glimepiride 1 MG TABLET 1 TAB PO BID DM (Reported) Hydroxyzine Hydrochloride (Atarax) 50 MG TABLET 2 TAB PO BID MUCUS (Reported) Ibuprofen 800 MG TABLET 1 TAB PO BID PAIN/INFLAMMATION (Reported) Ipratropium/Albuterol Sulfate (Combivent Respimat Inhal [place]) 20 MCG-100 MCG/ ACTUATION MIST.INHAL 2 PUFF INH BID copd (Reported) Lisinopril 10 MG TABLET 1 TAB PO DAILY BP (Reported) Metformin HCl (Glucophage) 1,000 MG TABLET 1 TAB PO BID DM (Reported) Montelukast Sodium (Singulair) 10 MG TABLET 1 TAB PO DAILY RESPIRATORY ( Reported) Oxycodone HCl/Acetaminophen (Percocet 10-325 MG Tablet) 10 MG-325 MG TABLET 1 TAB PO TID PRN PAIN (Reported) Simvastatin (Simvastatin*) 10 MG TABLET 1 TAB PO QPM CHOLESTEROL (Reported) Umeclidinium [place] (Incruse Ellipta) 62.5 MCG/ACTUATION BLST.W.DEV 1 PUFF INH DAILY COPD (Reported) Review of Systems Review of Systems: Notable for increasing swelling and weeping of the lower extremities, cough, chest pain, shortness of breath and tremulousness. He also endorses a more chronic history of paresthesia of the right hand involving the thumb index and middle finger. He reports no diplopia, dysarthria, dysphagia, vertigo, bleeding or joint inflammation. Past History Travel History Traveled to [place] past 21 day No Medical History Blood Transfusion Hx: Yes Neurological: NONE EENT: NONE Cardiovascular: cardiomyopathy, CHF, chronic venous insuff, hyperlipidemia, CARDIAC ARREST S/P [facility]WC PACER Respiratory: COPD, SLEEP APNEA O2 3.5L NC @ BASELINE Gastrointestinal: constipation, peptic ulcer disease, EGD 08/10 showed numerous gastric and duodenal ulcers Hepatic: NONE Renal: benign prost hyperplasia, TEMPORORY DIALYSIS Musculoskeletal: gout, rheumatoid arthritis Psychiatric: NONE Endocrine: diabetes Blood Disorders: anemia Cancer(s): NONE CHAINSTITCH SEAT JOINER/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 Other Who Do You Live With? self Services at Home: Oxygen Primary Language: Lithuanian Smoking Status: Never Smoked ETOH Use: denies use Illicit Drug Use: denies illicit drug use Functional Ability ADLs Independent: dressing, eating, toileting, bathing. Ambulation: independent IADLs Independent: shopping, housework, finances, food prep, telephone, transportation , medication admin. Exam & Diagnostic Data Vital Signs and I&O Vital Signs Date Time Temp Pulse Resp B/P B/P Pulse O2 O2 Flow FiO2 Mean Ox Delivery Rate 01/12 1058 94 Nasal 3.5L Cannula 01/12 0854 55 140/88 01/12 0854 55 140/88 01/12 0658 98.6 55 20 140/88 93 Nasal 2.0L Cannula 01/11 2200 68 22 132/80 Nasal 3.5L Cannula 01/11 2124 Nasal 3.5L Cannula 01/11 2107 64 132/84 01/11 1915 96 Nasal 3.0L Cannula 01/11 1600 Nasal 3.5L Cannula 01/11 1428 97.9 59 24 108/60 94 Nasal 3.0L Cannula Intake & Output 01/12 1600 01/12 0800 01/12 0000 Intake Total 510 370 240 Output Total 425 350 Balance 85 20 240 Intake, IV 110 130 120 Intake, Oral 400 240 120 Number 0 0 0 Bowel Movements Output, Urine 425 350 Patient 402 lb Weight Weight Bed scale Measurement Method Middle-aged morbidly obese white male in no acute distress, using nasal oxygen. Higher cortical function was grossly intact. Speech was fluent. Head was normocephalic and atraumatic. Pupils were equal. Extraocular movements were full. There was no nystagmus. There was no field cut. Face was symmetric. Hearing was grossly normal. Tongue was midline; there was no dysarthria. Showed no gross focal or lateralizing weakness. Deep tendon reflexes were hypoactive in the lower extremities. Plantar responses were flexor. There was no ataxia on finger to nose testing. There was no significant tremor of the outstretched hands. The gait was untested. Assessment/Plan Assessment: Mr. Padilla presents with acute, self-limited tremulousness of the upper extremities. This may be due to medications, particularly data agonists and corticosteroids typically used for COPD. There is no evidence of an extrapyramidal syndrome. He also describes a more chronic paresthesia of the right hand, likely due to carpal tunnel syndrome. Should these symptoms become more problematic in the future, we would be happy to see him in the outpatient setting and schedule nerve conduction study. Please feel free to call with any further questions. Recommendations: As above Consult Acknowledgment - Thank you for your consult request.
[2018-01-12 14:18] VITALS: BP 160/80
[2018-01-12] MEDS ORDERED: AUGMENTIN 875-1 EACH PO (19:16)
[2018-01-12 21:54] VITALS: BP 132/85
[2018-01-13 06:30] VITALS: BP 119/72
--- NOTE | 2018-01-13 06:53 | PN- Cardiology ---
Subjective Subjective: Seen and examined at bedside early in the morning. He appears drowsy, medication review indicates he reveived 10 mg of oxycodone around 3 am. He continues to have shortness of breath on exertion. He denies any cp/palpitaion. Objective Vital Signs and I&Os Vital Signs Date Time Temp Pulse Resp B/P B/P Pulse O2 O2 Flow FiO2 Mean Ox Delivery Rate 01/13 0846 97 Nasal 3.0L Cannula 01/13 0630 97.5 60 22 119/72 96 01/13 0000 Nasal 3.5L Cannula 01/12 2154 98.1 69 22 132/85 96 01/12 2124 60 160/80 01/12 1905 96 Nasal 3.0L Cannula 01/12 1600 Nasal 3.5L Cannula 01/12 1418 98.7 60 22 160/80 95 Nasal 3.0L Cannula 01/12 1058 94 Nasal 3.5L Cannula Intake & Output 01/13 1600 01/13 0800 01/13 0000 01/12 1600 01/12 0800 01/12 0000 Intake Total 240 300 620 370 240 Output Total 500 425 350 Balance 240 -200 195 20 240 Intake, IV 220 130 120 Intake, Oral 240 300 400 240 120 Number 1 0 0 0 Bowel Movements Output, Urine 500 425 350 Patient 180.87 kg 182.259 kg Weight Weight Bed scale Bed scale Measurement Method Physical Exam: Gen: NAD HEENT: normal Lungs: Bilateral rhonci, normal resp. effort Heart: RRR, S1, S2, 2/6 systoliuc murmur Abdomen: Soft, nontender, no masses Extremities: 2+ edema Neuro: Alert and oriented x 3, cranial nerves intact Current Medications: Current Medications Sig/Keaton Start time Last Medication Dose Route Stop Time Status Admin Albuterol Sulfate 3 ML TID 01/08 2200 AC 01/13 INH 0846 Albuterol Sulfate 2 PUF Q4-6 PRN PRN 01/08 2115 AC INH Ammonium Lactate 1 IDANIA BID 01/08 2200 AC 01/12 TOP 212 Ampicillin Sodium/ 3,000 MG Q6H 01/11 0300 AC 01/13 Sulbactam Sodium IV 0300 Sodium Chloride 100 ML Atorvastatin Calcium 5 MG 1700 01/09 1700 AC 01/12 PO 1806 Budesonide/ 2 PUF BID 01/08 2200 AC 01/12 Formoterol Fumarate INH 2125 Carvedilol 25 MG BID 01/08 220 AC 01/12 PO 2124 Febuxostat 40 MG DAILY 01/09 1000 AC 01/12 PO 0854 Ferrous Sulfate 325 MG DAILY 01/09 1000 AC 01/12 PO 0852 Furosemide 40 MG 7:30 AM, & 4:30 PM 01/12 1630 AC 01/12 IV 1630 Gabapentin 400 MG Q8 01/08 2200 AC 01/13 PO 0602 Guaifenesin 600 MG Q12 01/08 2200 AC 01/12 PO 2124 Heparin Sodium 5,000 UNIT Q8 01/08 2200 AC 01/13 (Porcine) SC 0602 Hydroxyzine HCl 100 MG DAILY 01/13 1000 AC PO Hydroxyzine HCl 50 MG ONCE ONE 01/12 1330 DC 01/12 PO 01/12 1331 1422 Hydroxyzine HCl 100 MG ONCE ONE 01/12 1315 CAN PO 01/12 1316 Hydroxyzine HCl 50 MG DAILY 01/12 1030 DC 01/12 PO 1204 Insulin Aspart 0 TIDAC 01/09 0800 AC 01/12 SC 1812 Lisinopril 10 MG DAILY 01/12 1000 AC 01/12 PO 0854 Oxycodone/ 2 TAB ONCE ONE 01/13 0315 DC 01/13 Acetaminophen PO 01/13 0316 0321 Tramadol HCl 50 MG Q8P PRN 01/10 1015 AC 01/12 PO 2241 Results Last 48 Hrs of Labs/Mics: Laboratory Tests 01/13/18 0648: Anion Gap 10, Estimated GFR > 60, BUN/Creatinine Ratio 20.0, Magnesium 2.3, CBC w Diff NO MAN DIFF REQ, RBC 3.72 L, MCV 85.8, MCH 27.4, MCHC 32.0 L, RDW 14.2, MPV 7.0 L, Gran % 69.6, Lymphocytes % 19.9 L, Monocytes % 9.1, Eosinophils % 1.2, Basophils % 0.2, Absolute Granulocytes 5.4, Absolute Lymphocytes 1.5, Absolute Monocytes 0.7 H, Absolute Eosinophils 0.1, Absolute Basophils 0 01/12/18 1230: Urine Opiates Screen 255, Methadone Screen < 40, Barbiturate Screen < 60, Ur Phencyclidine Scrn < 6.00, Amphetamines Screen < 100, U Benzodiazepines Scrn < 85, Urine Cocaine Screen < 50, Urine Cannabis Screen < 5.00 01/12/18 0707: Anion Gap 9, Estimated GFR > 60, BUN/Creatinine Ratio 19.1, Magnesium 2.4 H, Total Bilirubin 0.7, Direct Bilirubin 0.5 H, AST 12 L, ALT 28, Alkaline Phosphatase 80, Total Protein 6.7, Albumin 3.6, CBC w Diff NO MAN DIFF REQ, RBC 3.85 L, MCV 85.6, MCH 27.5, MCHC 32.2 L, RDW 13.9, MPV 6.9 L, Gran % 77.3 H, Lymphocytes % 13.4 L, Monocytes % 8.8, Eosinophils % 0.3, Basophils % 0.2, Absolute Granulocytes 7.1 H, Absolute Lymphocytes 1.2, Absolute Monocytes 0.8 H, Absolute Eosinophils 0, Absolute Basophils 0 Assessment/Plan Assessment/Plan Assessment: 1. Acute on chronic HFrEF secondary to non ischemic cardiomyopathy. 2. AICD 3. Chronic venous insufficiency with LE edema and stasis changes 4. RLE cellulitis. 5. Acute kidney injury secondary to diuretic therapy Plan: * Discharge patient on his regular home furosemide dose of 120mg/daily * Pt will arrainge outpatient stress test * Continue Antibiotic therapy per medical team * Discussed plan with cardiology attending, formal attending note to follow. Continue telemetry? No Problem List: 1. Cellulitis
--- NOTE | 2018-01-13 07:24 | PN- Housestaff ---
Jarrod HARPER,[facility] 01/13/18 0724: Subjective Follow-up For: Acute decompensated heart failure Right lower extremity cellulitis Bilateral venous stasis dermatitis Tele-Events Since Last Visit: NSR 59-68 Subjective: No acute events overnight. Pt still complains of weakness and flapping tremors of his hands. Still continues to have 10/10 pain b/l LEG. Review of Systems Constitutional: Reports: see HPI. Musculoskeletal: Reports: see HPI, muscle pain. Neurological/Psychological: Reports: see HPI (flapping tremors). Objective Last 24 Hrs of Vital Signs/I&O Vital Signs Date Time Temp Pulse Resp B/P B/P Pulse O2 O2 Flow FiO2 Mean Ox Delivery Rate 01/13 1417 98.4 72 18 136/100 93 Nasal 2.0L Cannula 01/13 0936 124/70 01/13 0936 124/70 01/13 0846 97 Nasal 3.0L Cannula 01/13 0800 95 Nasal 3.5L Cannula 01/13 0630 97.5 60 22 119/72 96 01/13 0000 Nasal 3.5L Cannula 01/12 2154 98.1 69 22 132/85 96 01/12 2124 60 160/80 01/12 1905 96 Nasal 3.0L Cannula Intake & Output 01/13 1600 01/13 0800 01/13 0000 Intake Total 240 300 Output Total 1900 500 Balance -1900 240 -200 Intake, Oral 240 300 Number 1 1 Bowel Movements Output, Urine 1900 500 Patient 399 lb Weight Weight Bed scale Measurement Method Physical Exam General Appearance: Alert, Oriented X3, Cooperative, Moderate Distress, patient upset about discharge. HEENT: PERRLA Cardiovascular: Regular Rate, Normal S1, Normal S2 Lungs: Clear to Auscultation, Normal Air Movement Abdomen: Normal Bowel Sounds, Soft, No Tenderness Extremities: b/l venous stasis changes, 2+ LE b/l Vascular: 2+ radial pulses Current Medications: Current Medications Sig/Keaton Start time Last Medication Dose Route Stop Time Status Admin Albuterol Sulfate 3 ML TID 01/08 2200 AC 01/13 INH 1329 Albuterol Sulfate 2 PUF Q4-6 PRN PRN 01/08 211 AC INH Ammonium Lactate 1 IDANIA BID 01/08 2200 AC 01/13 TOP 0937 Ampicillin Sodium/ 3,000 MG Q6H 01/11 0300 AC 01/13 Sulbactam Sodium IV 1412 Sodium Chloride 100 ML Atorvastatin Calcium 5 MG 1700 01/09 1700 AC 01/12 PO 1806 Budesonide/ 2 PUF BID 01/08 220 AC 01/13 Formoterol Fumarate INH 0937 Carvedilol 25 MG BID 01/08 2200 AC 01/13 PO 0936 Febuxostat 40 MG DAILY 01/09 1000 AC 01/13 PO 0937 Ferrous Sulfate 325 MG DAILY 01/09 1000 AC 01/13 PO 0936 Furosemide 40 MG 7:30 AM, & 4:30 PM 01/12 1630 AC 01/13 IV 0936 Gabapentin 400 MG Q8 01/08 2200 AC 01/13 PO 1412 Guaifenesin 600 MG Q12 01/08 220 AC 01/13 PO 0936 Heparin Sodium 5,000 UNIT Q8 01/08 2200 AC 01/13 (Porcine) SC 1411 Hydroxyzine HCl 100 MG DAILY 01/13 1000 AC 01/13 PO 0937 Insulin Aspart 0 TIDAC 01/09 0800 AC 01/12 SC 1812 Lisinopril 10 MG DAILY 01/12 1000 AC 01/13 PO 0936 Oxycodone/ 2 TAB ONCE ONE 01/13 0315 DC 01/13 Acetaminophen PO 01/13 0316 0321 Tramadol HCl 50 MG Q8P PRN 01/10 1015 AC 01/12 PO 2241 Last 24 Hrs of Lab/Joaquim Results Last 24 Hrs of Labs/Mics: Laboratory Tests 01/13/18 0648: Anion Gap 10, Estimated GFR > 60, BUN/Creatinine Ratio 20.0, Magnesium 2.3, CBC w Diff NO MAN DIFF REQ, RBC 3.72 L, MCV 85.8, MCH 27.4, MCHC 32.0 L, RDW 14.2, MPV 7.0 L, Gran % 69.6, Lymphocytes % 19.9 L, Monocytes % 9.1, Eosinophils % 1.2, Basophils % 0.2, Absolute Granulocytes 5.4, Absolute Lymphocytes 1.5, Absolute Monocytes 0.7 H, Absolute Eosinophils 0.1, Absolute Basophils 0 Assessment/Plan Assessment: 62yo M h past medical history of heart failure with reduced ejection fraction of 25-30%, mild tricuspid regurg, nonischemic cardiomyopathy status post pacemaker, COPD on 3.5 L of oxygen, obstructive sleep apnea not on CPAP, diabetes, chronic kidney disease, hyperlipidemia, peptic ulcer disease, chronic lower extremity edema, and gout s/p soft tissue debridement of left foot with multiple admissions for persistent gout and COPD exacerbation presenting for a chief complain of RLE extremity swelling, oozing, SOB, L heel pain. P: patient appealing his dischage #?CHF exascerbation BNP 1790 Cr 1.1 (01/12) Echo: EF 30-35% with eccentric hypertrophy and global hypokinesia -resuming lasix as renal function has improved -f/u cardiology recommendations -cont i/o, daily weights -consider MUGA scan to better asses LV function and wall motion -patient will get stress test by Dr. Lord outpatient after discharge #suddent onset of weakness and flapping tremors Flapping tremors were evaluated by neurology: who thinks steroids and beta agonists are the cause -Patient not on any steroids or beta agonists at this time -patient was lethargic today. was given 2x percocets. we had held his pain medications due to lethargy / weakness/flapping tremors. -avoid narcotics if possible -possible due to carpal tunnel syndrome per neuro -f/u outpatietn for nerve conductions tudy #RLE cellulitis and b/l chronic venous stasis dermatitis Doppler ultrasound negative for DVT -cont unasyn. discharge with augmentin to complete 7 day course of total abx -monitor for fevers and WBC -Follow care recommendations #diabetes with ckd Cr 1.1 -cont novolog sliding scale -cont monitor renal function #chronic medical conditions: hld, htn, cardiomyopathy, anemia, gout, copd, neuropathy -cont atorvastatin, lisinopril, ferrous sulfate, febuxostat, mucinex, gabapentin , carvediol, symbicort, #DVT ppx - heparin subq #FULL CODE Problem List: 1. Foraminal stenosis of cervical region 2. Weakness 3. Cellulitis 4. Chronic venous stasis dermatitis 5. CHF (congestive heart failure) Pain Ratin Pain Location: legs Pain Goal: Pain 4 or less Pain Plan: tylenol Tomorrow's Labs & Rationales: none Ingris Membreno 01/13/18 1341: Attending Review Statement Attending Statement Attending MD Statement: examined this patient, discuss w/resident/PA/SLIDE FASTENER CHAIN ASSEMBLER, agreed w/resident/PA/SLIDE FASTENER CHAIN ASSEMBLER, reviewed EMR data (avail), discussed with nursing, discussed with case mgmt Attending Assessment/Plan: Pt will be dced today on po abx and will f/u with wound care clinic . pt was encouraged to get an apartment . pt is not willing to move to the apartment.
[2018-01-13 08:04] LABS: ABSOLUTE BASOPHIL COUNT 0 /CUMM (0.0-0.2); ABSOLUTE EOSINOPHIL COUNT 0.1 /CUMM (0.0-0.7); ABSOLUTE GRANULOCYTE CT 5.4 /CUMM (1.4-6.5); ABSOLUTE LYMPH COUNT 1.5 /CUMM (1.2-3.4); ABSOLUTE MONOCYTE COUNT 0.7 /CUMM (0.10-0.60); BASOPHIL % 0.2 % (0.0-2.0); EOSINOPHIL % 1.2 % (0-5); GRANULOCYTE % 69.6 % (42.2-75.2); HEMATOCRIT 31.9 % (42-52); MEAN CORPUSCULAR HGB 27.4 PG (27.0-31.0); MEAN CORPUSCULAR VOLUME 85.8 FL (80.0-94.0); PLATELET COUNT 171 /CUMM (130-400); RBC DISTRIBUTION WIDTH 14.2 % (11.5-14.5); RED BLOOD CELL CT 3.72 /CUMM (4.70-6.10); WHITE BLOOD CELL COUNT 7.8 /CUMM (4.8-10.8)
--- NOTE | 2018-01-13 08:29 | PN- Wound Care ---
Subjective Subjective: Lower extremity edema appears somewhat improved. He remains afebrile with normal white count and negative cultures Objective Vital Signs and I&Os Vital Signs Result Date Time Pulse Ox 96 01/13 630 B/P 119/72 01/13 630 Temp 97.5 01/13 630 Pulse 60 01/13 06 Resp 22 01/13 630 O2 Delivery Nasal Cannula 01/13 0000 O2 Flow Rate 3.5L 01/13 0000 Intake & Output 01/13 0000 01/12 1600 01/12 0800 Intake Total 300 620 370 Output Total 500 425 350 Balance -200 195 20 Intake, IV 220 130 Intake, Oral 300 400 240 Number 0 0 Bowel Movements Output, Urine 500 425 350 Patient 399 lb Weight Weight Bed scale Measurement Method Continues to be brawny edema of both lower extremities though appears somewhat diminished. Smaller of the 2 venous stasis ulcers appears to have healed. Impression/Plan Impression/Plan Impression/Plan: 62-year-old with cardiomyopathy chronic venous insufficiency has chronic venous stasis ulcer. His cultures remained negative DC IV antibiotics begin by mouth antibiotics. Patient needs aggressive leg elevation. Apply compression from his toes to his knee. Continue daily Xeroform dressings
[2018-01-13] MEDS ORDERED: NAPROSYN500 M1 PO ×2 (10:38→11:58)
[2018-01-13] MEDS ORDERED: ACETAMINOPHEN500 M4 PO ×2 (10:38→11:58)
--- NOTE | 2018-01-13 10:41 | Patient Discharge Instructions ---
Discharge Instructions General Discharge Information Special Instructions: Please follow up with your pcp 1 in week. Please follow up with your manager sales support in 1 week. Please follow up with neurology (Dr. Plaza) in 1-2 weeks. Please alternate between acetaminophen and naproxen for your pain to reduce your chances of having a GI bleed. Please continue your care at the wound center. Please take your medications as perscribed. Acute Coronary Syndrome Inclusion Criteria At DC or during hospital stay patient has or had the following: ACS DIAGNOSIS No Discharge Core Measures Meds if any: Prescribed or Continued at Discharge Meds if any: NOT Prescribed or Continued at Discharge Congestive Heart Failure Inclusion Criteria At DC or during hospital stay patient has or had the following: CHF DIAGNOSIS Yes Discharge Core Measures Meds if any: Prescribed or Continued at Discharge Meds if any: NOT Prescribed or Continued at Discharge Cerebrovascular accident Inclusion Criteria At DC or during hospital stay patient has or had the following: CVA/TIA Diagnosis No Discharge Core Measures Meds if any: Prescribed or Continued at Discharge Meds if any: NOT Prescribed or Continued at Discharge Venous thromboembolism Inclusion Criteria VTE Diagnosis No VTE Type NONE VTE Confirmed by (Test) DUPLEX VENOUS EXTREM UNI Discharge Core Measures - Per Current guidelines, there needs to be overlap - treatment for the first 5 days of Warfarin therapy. - If discharged on Warfarin prior to 5 days of - overlap therapy, the patient will need to be - assessed for post discharge needs including - *Post discharge parental anticoagulation - *Warfarin and/or parental anticoagulation education - *Follow up date to check INR post discharge At least 5 days overlap therapy as Inpatient No Meds if any: Prescribed or Continued at Discharge Note: Overlap Therapy is Warfarin and Anticoagulant Meds if any: NOT Prescribed or Continued at Discharge
[2018-01-13] MEDS ORDERED: AUGMENTIN 875-1 EACH PO (11:58)
[2018-01-13 14:17] VITALS: BP 136/100
[2018-01-13 22:52] VITALS: BP 130/84
[2018-01-14 06:55] VITALS: BP 134/77
--- NOTE | 2018-01-14 08:07 | PN- Housestaff ---
Jarrod HARPER,[facility] 01/14/18 0807: Subjective Follow-up For: Acute decompensated heart failure Right lower extremity cellulitis Bilateral venous stasis dermatitis Tele-Events Since Last Visit: NSR 59-75 QRS 0.16 WA 0.160.18 BBB/PVC Subjective: No acute events overnight. Patient still complaining of 1010 bilateral leg pain. States he has a headache today. States he feels confused today however is oriented 3. States that his flapping tremors have improved slightly since yesterday. Review of Systems Constitutional: Reports: see HPI. Objective Last 24 Hrs of Vital Signs/I&O Vital Signs Date Time Temp Pulse Resp B/P B/P Pulse O2 O2 Flow FiO2 Mean Ox Delivery Rate 01/14 1009 142/80 01/14 1009 142/80 01/14 0816 95 Nasal 3.0L Cannula 01/14 0800 94 Nasal 3.5L Cannula 01/14 0655 97.8 63 20 134/77 96 Nasal 2.0L Cannula 01/14 0000 Nasal 3.5L Cannula 01/13 2252 98.8 69 21 130/84 93 01/13 2202 98.4 72 136/100 01/13 2026 96 Nasal 3.0L Cannula 01/13 1600 Nasal 3.5L Cannula 01/13 1417 98.4 72 18 136/100 93 Nasal 2.0L Cannula Intake & Output 01/14 1600 01/14 0800 01/14 0000 Intake Total 240 200 Output Total 350 1400 Balance -110 -1200 Intake, Oral 240 200 Output, Urine 350 1400 Patient 398 lb Weight Physical Exam General Appearance: Alert, Oriented X3, Cooperative, No Acute Distress HEENT: PERRLA Cardiovascular: Regular Rate, Normal S1, Normal S2 Lungs: Clear to Auscultation, Normal Air Movement Abdomen: Normal Bowel Sounds, Soft, No Tenderness Extremities: bilateral venous stasis changes. Right lower extremity erythema. Both lower extremities covered by compression dressing. 2+ edema bilaterally Vascular: 2+ radial pulses Assessment/Plan Assessment: 62yo M h past medical history of heart failure with reduced ejection fraction of 25-30%, mild tricuspid regurg, nonischemic cardiomyopathy status post pacemaker, COPD on 3.5 L of oxygen, obstructive sleep apnea not on CPAP, diabetes, chronic kidney disease, hyperlipidemia, peptic ulcer disease, chronic lower extremity edema, and gout s/p soft tissue debridement of left foot with multiple admissions for persistent gout and COPD exacerbation presenting for a chief complain of RLE extremity swelling, oozing, SOB, L heel pain. P: patient appealing his dischage #?CHF exascerbation BNP 1790 Cr 1.1 (01/12) Echo: EF 30-35% with eccentric hypertrophy and global hypokinesia -resuming lasix as renal function has improved -f/u cardiology recommendations -cont i/o, daily weights -consider MUGA scan to better asses LV function and wall motion -patient will get stress test by Dr. Lrod outpatient after discharge #suddent onset of weakness and flapping tremors most likely secondary to narcotics Flapping tremors were evaluated by neurology: who thinks steroids and beta agonists are the cause -Patient not on any steroids or beta agonists at this time -patient was lethargic yesterday. was given 2x percocets. we had held his pain medications due to lethargy / weakness/flapping tremors. -avoid narcotics if possible -possible due to carpal tunnel syndrome per neuro -f/u outpatietn for nerve conductions tudy #RLE cellulitis and b/l chronic venous stasis dermatitis Doppler ultrasound negative for DVT -cont unasyn. discharge with augmentin to complete 7 day course of total abx -monitor for fevers and WBC -Follow care recommendations #diabetes with ckd Cr 1.1 -cont novolog sliding scale -cont monitor renal function #chronic medical conditions: hld, htn, cardiomyopathy, anemia, gout, copd, neuropathy -cont atorvastatin, lisinopril, ferrous sulfate, febuxostat, mucinex, gabapentin , carvediol, symbicort, #DVT ppx - heparin subq #FULL CODE Problem List: 1. Foraminal stenosis of cervical region 2. Weakness 3. Chronic venous stasis dermatitis 4. Cellulitis 5. CHF (congestive heart failure) Pain Ratin Pain Location: legs Pain Goal: Pain 7 or less Pain Plan: avoid narcotics Tomorrow's Labs & Rationales: none. Ingris Membreno 01/14/18 1428: Attending MD Review Statement Attending Statement Attending MD Statement: examined this patient, discuss w/resident/PA/CHIEF MEDICAL TECHNOLOGIST, agreed w/resident/PA/CHIEF MEDICAL TECHNOLOGIST, reviewed EMR data (avail), discussed with nursing, discussed with case mgmt Attending Assessment/Plan: Pt was planned for discharge yesterday but he appealed his discharge. Will wait for case management to find out about appeal . d/w pt the care plan.
[2018-01-14] MEDS ORDERED: AUGMENTIN 875-1 EACH PO (08:32)
--- NOTE | 2018-01-14 12:42 | PN- Cardiology ---
Subjective Subjective: Shortness of breath improving. Edema improving. No current chest pain. No palpitations. No lightheadedness or dizziness. No nausea or vomiting. Objective Vital Signs and I&Os Vital Signs Date Time Temp Pulse Resp B/P B/P Pulse O2 O2 Flow FiO2 Mean Ox Delivery Rate 01/14 1009 142/80 01/14 1009 142/80 01/14 0816 95 Nasal 3.0L Cannula 01/14 0800 94 Nasal 3.5L Cannula 01/14 0655 97.8 63 20 134/77 96 Nasal 2.0L Cannula 01/14 0000 Nasal 3.5L Cannula 01/13 2252 98.8 69 21 130/84 93 01/13 2202 98.4 72 136/100 01/13 2026 96 Nasal 3.0L Cannula 01/13 1600 Nasal 3.5L Cannula 01/13 1417 98.4 72 18 136/100 93 Nasal 2.0L Cannula Intake & Output 01/14 1600 01/14 0800 01/14 0000 01/13 1600 01/13 0800 01/13 0000 Intake Total 240 200 500 240 300 Output Total 350 1400 2600 500 Balance -110 -1200 -2100 240 -200 Intake, Oral 240 200 500 240 300 Number 1 1 Bowel Movements Output, Urine 350 1400 2600 500 Patient 398 lb 399 lb Weight Weight Bed scale Measurement Method Physical Exam: Gen: NAD HEENT: normal Lungs: Bilateral rhonci, normal resp. effort Heart: RRR, S1, S2, 2/6 systoliuc murmur Abdomen: Soft, nontender, no masses Extremities: 2+ edema Neuro: Alert and oriented x 3, cranial nerves intact Results Last 48 Hrs of Labs/Mics: Laboratory Tests 01/13/18 0648: Anion Gap 10, Estimated GFR > 60, BUN/Creatinine Ratio 20.0, Magnesium 2.3, CBC w Diff NO MAN DIFF REQ, RBC 3.72 L, MCV 85.8, MCH 27.4, MCHC 32.0 L, RDW 14.2, MPV 7.0 L, Gran % 69.6, Lymphocytes % 19.9 L, Monocytes % 9.1, Eosinophils % 1.2, Basophils % 0.2, Absolute Granulocytes 5.4, Absolute Lymphocytes 1.5, Absolute Monocytes 0.7 H, Absolute Eosinophils 0.1, Absolute Basophils 0 Assessment/Plan Assessment/Plan Assessment: 1. Acute on chronic HFrEF secondary to non ischemic cardiomyopathy. 2. AICD 3. Chronic venous insufficiency with LE edema and stasis changes 4. RLE cellulitis. 5. Acute kidney injury secondary to diuretic therapy Plan: * Likely ready for discharge today or tomorrow * Would continue IV Lasix while he is in the hospital, and the discharge on oral Lasix 80 mg every morning with 40 mg every afternoon. * Continue other cardiac medication
[2018-01-14 14:33] VITALS: BP 137/81
[2018-01-14 22:57] VITALS: BP 130/84
--- NOTE | 2018-01-15 08:51 | PN- Cardiology ---
Ramy HARPER,[facility] 01/15/18 0851: Subjective Subjective: Seen and examined at bedside. He offers no new complaints of cp/palpitation. His sob has significantly improved. Objective Vital Signs and I&Os Vital Signs Date Time Temp Pulse Resp B/P B/P Pulse O2 O2 Flow FiO2 Mean Ox Delivery Rate 01/15 1441 97.4 67 22 142/84 96 Nasal 4.0L Cannula 01/15 1051 62 130/84 01/15 1051 62 130/84 01/15 0828 97 Nasal 4.0L Cannula 01/15 0716 98.3 62 20 95 01/15 0000 Nasal 3.5L Cannula 01/14 2257 97.5 67 20 130/84 96 01/14 2223 67 137/81 01/14 1600 Nasal 3.5L Cannula Intake & Output 01/15 1600 01/15 0800 01/15 0000 01/14 1600 01/14 0800 01/14 0000 Intake Total 415 600 240 200 Output Total 062 623 0896 350 1400 Balance 65 -500 -550 -110 -1200 Intake, IV 115 Intake, Oral 300 600 240 200 Number 1 Bowel Movements Output, Urine 763 321 0793 350 1400 Patient 180.643 kg Weight Physical Exam: Gen: NAD HEENT: normal Lungs: Bilateral rhonci, normal resp. effort Heart: RRR, S1, S2, 2/6 systoliuc murmur Abdomen: Soft, nontender, no masses Extremities: 1+ edema Neuro: Alert and oriented x 3, cranial nerves intact Current Medications: Current Medications Sig/Keaton Start time Last Medication Dose Route Stop Time Status Admin Albuterol Sulfate 3 ML TID 01/08 2200 AC 01/15 INH 1407 Albuterol Sulfate 2 PUF Q4-6 PRN PRN 01/08 211 AC INH Ammonium Lactate 1 IDANIA BID 01/08 2200 AC 01/15 TOP 1053 Ampicillin Sodium/ 3,000 MG Q6H 01/11 0300 DC 01/15 Sulbactam Sodium IV 0230 Sodium Chloride 100 ML Atorvastatin Calcium 5 MG 1700 01/09 1700 AC 01/14 PO 1753 Budesonide/ 2 PUF BID 01/08 2200 AC 01/15 Formoterol Fumarate INH 1053 Carvedilol 25 MG BID 01/08 2200 AC 01/15 PO 1051 Febuxostat 40 MG DAILY 03/17 1000 AC 01/15 PO 1051 Ferrous Sulfate 325 MG DAILY 01/09 1000 AC 01/15 PO 1051 Furosemide 40 MG 7:30 AM, & 4:30 PM 01/12 1630 AC 01/15 IV 0827 Gabapentin 400 MG Q8 01/08 2200 AC 01/15 PO 1429 Guaifenesin 600 MG Q12 01/08 2200 AC 01/15 PO 1051 Heparin Sodium 5,000 UNIT Q8 01/08 2200 AC 01/15 (Porcine) SC 1429 Hydroxyzine HCl 100 MG DAILY 01/13 1000 AC 01/15 PO 1051 Insulin Aspart 0 TIDAC 01/09 0800 AC 01/15 SC 1250 Lisinopril 10 MG DAILY 01/12 1000 AC 01/15 PO 1051 Tramadol HCl 50 MG Q8P PRN 01/10 1015 AC 01/14 PO 0523 Assessment/Plan Assessment/Plan Assessment: 1. Acute on chronic HFrEF secondary to non ischemic cardiomyopathy. 2. AICD 3. Chronic venous insufficiency with LE edema and stasis changes 4. RLE cellulitis. 5. Acute kidney injury secondary to diuretic therapy Plan: * Likely ready for discharge today, Would continue his home oral Lasix 80 mg every morning with 40 mg every afternoon. * Continue other cardiac medication * Patient to f/u with setting up outpatient stress test Continue telemetry? Not applicable
--- NOTE | 2018-01-15 09:02 | PN- Housestaff ---
Jarrod HARPER,[facility] 01/15/18 0902: Subjective Follow-up For: Acute decompensated heart failure Right lower extremity cellulitis Bilateral venous stasis dermatitis Tele-Events Since Last Visit: OFF tele Subjective: No acute events overnight. Still complaining of b/l LE pain. States he has difficulty breathing as hes congested because he is not taking his home dose of hydroxyzine. States the flapping tremors has improved. Review of Systems Constitutional: Reports: see HPI. Respiratory: Reports: see HPI (congestion), short of breath. Musculoskeletal: Reports: muscle pain. Objective Last 24 Hrs of Vital Signs/I&O Vital Signs Date Time Temp Pulse Resp B/P B/P Pulse O2 O2 Flow FiO2 Mean Ox Delivery Rate 01/15 0828 97 Nasal 4.0L Cannula 01/15 0716 98.3 62 20 95 01/15 0000 Nasal 3.5L Cannula 01/14 2257 97.5 67 20 130/84 96 01/14 2223 67 137/81 01/14 1600 Nasal 3.5L Cannula 01/14 1433 97.9 67 20 137/81 95 Nasal 3.0L Cannula 01/14 1009 142/80 01/14 1009 142/80 Intake & Output 01/15 1600 01/15 0800 01/15 0000 Intake Total 415 Output Total 350 500 Balance 65 -500 Intake, IV 115 Intake, Oral 300 Output, Urine 350 500 Physical Exam General Appearance: Alert, Oriented X3, Cooperative, Mild Distress, Obese Cardiovascular: Regular Rate, Normal S1, Normal S2 Lungs: Clear to Auscultation, Normal Air Movement Abdomen: Normal Bowel Sounds, Soft, No Tenderness Extremities: b/l venous stass changes. RLE erythema. b/l legs covered by compression dressings. 2+ edema Vascular: 2+ radial pulses Current Medications: Current Medications Sig/Keaton Start time Last Medication Dose Route Stop Time Status Admin Albuterol Sulfate 3 ML TID 01/08 2200 AC 01/15 INH 0826 Albuterol Sulfate 2 PUF Q4-6 PRN PRN 01/08 211 AC INH Ammonium Lactate 1 IDANIA BID 01/08 2200 AC 01/14 TOP 2223 Ampicillin Sodium/ 3,000 MG Q6H 01/11 0300 DC 01/15 Sulbactam Sodium IV 0230 Sodium Chloride 100 ML Atorvastatin Calcium 5 MG 1700 01/09 1700 AC 01/14 PO 1753 Budesonide/ 2 PUF BID 01/08 2200 AC 01/14 Formoterol Fumarate INH 2200 Carvedilol 25 MG BID 01/08 2200 AC 01/14 PO 2223 Febuxostat 40 MG DAILY 01/09 1000 AC 01/14 PO 1009 Ferrous Sulfate 325 MG DAILY 01/09 1000 AC 01/14 PO 1009 Furosemide 40 MG 7:30 AM, & 4:30 PM 01/12 1630 AC 01/15 IV 0827 Gabapentin 400 MG Q8 01/08 2200 AC 01/15 PO 0604 Guaifenesin 600 MG Q12 01/08 2200 AC 01/14 PO 2222 Heparin Sodium 5,000 UNIT Q8 01/08 220 AC 01/15 (Porcine) SC 0609 Hydroxyzine HCl 100 MG DAILY 01/13 1000 AC 01/14 PO 1009 Insulin Aspart 0 TIDAC 01/09 0800 AC 01/15 SC 0827 Lisinopril 10 MG DAILY 01/12 1000 AC 01/14 PO 1009 Tramadol HCl 50 MG Q8P PRN 01/10 1015 AC 01/14 PO 0523 Assessment/Plan Assessment: Assessment: 62yo M h past medical history of heart failure with reduced ejection fraction of 25-30%, mild tricuspid regurg, nonischemic cardiomyopathy status post pacemaker, COPD on 3.5 L of oxygen, obstructive sleep apnea not on CPAP, diabetes, chronic kidney disease, hyperlipidemia, peptic ulcer disease, chronic lower extremity edema, and gout s/p soft tissue debridement of left foot with multiple admissions for persistent gout and COPD exacerbation presenting for a chief complain of RLE extremity swelling, oozing, SOB, L heel pain. P: Plan for dischage today #?CHF exascerbation BNP 1790 Cr 1.1 (01/12) Echo: EF 30-35% with eccentric hypertrophy and global hypokinesia -resuming lasix as renal function has improved -f/u cardiology recommendations -cont i/o, daily weights -consider MUGA scan to better asses LV function and wall motion -patient will get stress test by Dr. George outpatient after discharge #suddent onset of weakness and flapping tremors most likely secondary to narcotics Flapping tremors were evaluated by neurology: who thinks steroids and beta agonists are the cause -Patient not on any steroids or beta agonists at this time -lethargy and flapping tremors improved after stopping narcotics -avoid narcotics if possible -possible due to carpal tunnel syndrome per neuro -f/u outpatietn for nerve conductions tudy #RLE cellulitis and b/l chronic venous stasis dermatitis Doppler ultrasound negative for DVT -cont unasyn. discharge with augmentin to complete 7 day course of total abx -monitor for fevers and WBC -Follow care recommendations #diabetes with ckd Cr 1.1 -cont novolog sliding scale -cont monitor renal function #chronic medical conditions: hld, htn, cardiomyopathy, anemia, gout, copd, neuropathy -cont atorvastatin, lisinopril, ferrous sulfate, febuxostat, mucinex, gabapentin , carvediol, symbicort, #DVT ppx - heparin subq #FULL CODE Problem List: 1. Foraminal stenosis of cervical region 2. Weakness 3. Chronic venous stasis dermatitis 4. Cellulitis 5. CHF (congestive heart failure) Pain Ratin Pain Location: legs Pain Goal: Pain 4 or less Pain Plan: pain pathway Tomorrow's Labs & Rationales: none Ingris Membreno 01/15/18 1628: Attending MD Review Statement Attending Statement Attending MD Statement: examined this patient, discuss w/resident/PA/SOCIAL SERVICE ASSISTANT, agreed w/resident/PA/SOCIAL SERVICE ASSISTANT, reviewed EMR data (avail), discussed with nursing, discussed with case mgmt Attending Assessment/Plan: Pt being dced today. D/w him that cardiology does not want to do the stress test as his cardiac cath done a year ago was ok and this will not add any more information.
[2018-01-15] MEDS ORDERED: AUGMENTIN 875-1 EACH PO (10:58)
[2018-01-15 14:41] VITALS: BP 142/84
--- NOTE | 2018-01-15 22:12 | Discharge Summary ---
Visit Information Visit Dates Admission Date: 01/08/18 Discharge Date: 01/15/18 Hospital Course Course Attending Physician: Temi HARPER,Ingris Stahl Primary Care Physician: [facility] Course: A: 62yo M w/ a pmhx of HF w/reduced EF of 25-30%, mild tricuspid regurg, nonischemic cardiomyopathy status post pacemaker, COPD on 3.5 L of oxygen, obstructive sleep apnea not on CPAP, diabetes, chronic kidney disease, hyperlipidemia, peptic ulcer disease, chronic lower extremity edema, and gout s/ p soft tissue debridement of left foot with multiple admissions COPD exacerbation presenting for a chief complaint of RLE extremity swelling, oozing, SOB, L heel pain. Problems: #RLE cellulitis with b/l chronic venous stasis dermatitis The patient was treated with unasyn and discharge with augmentin to complete 7 day course of total abx. Doppler ultrasound was negative for DVT. #CHF exascerbation The patient presented for SOB and LE edema. BNP was elevated at 1790. Repeat echo revealed Echo: EF 30-35% with eccentric hypertrophy and global hypokinesia. The patient was treated with IV lasix and then converted to po lasix for discharge. He will be seen by Dr. Lord for outpatient stress test after discharge. #Suddent onset of weakness and flapping tremors most likely secondary to narcotics The patient complained of suddent onset of flapping tremors and lost of motor control of his hands. He was found to be letheragic after being given 2 percocets overnight. We discussed the effects of sedating medications such as narcotics and antihisamines. We gave the patient 1/2 his regular dose of hydroxyzine and stopped his narcotics. His flapping tremors slowly improved with the discontinuation of his narcotics. Neurology was consulted who thought his effects were 2/2 steroids or beta agonists at this time however the patient was not taking any of those mediucations. Head/cervical spine ct revealed multilevel degenerative spondylotic changes with varying degrees of neural with advanced neural foraminal stenosis in the left at C3-C4. Neurology suggested outpatient follow up for NCS for possible capal tunnel evaluation. #LISETTE The patient takes ibuprogen 800mg daily The patient was instructed to stop this medication as it could cause renal damage if taken chronically. He was was given a perscription for tylenol and naproxen. He was instructed to alternate between tylenol and naproxen. His Cr was 1.6 (1.1 baseline) and improved back to baseline before discharge. #Diabetes with ckd His blood sugars were controlled with novolog sliding scale. #Chronic medical conditions: hld, htn, cardiomyopathy, anemia, gout, copd, neuropathy We continued atorvastatin, lisinopril, carvediol, ferrous sulfate, febuxostat, mucinex, gabapentin, symbicort during admission. Allergies: Coded Allergies: No Known Allergies (01/08/18) Significant Procedures: EXAM TYPE: CARD - ECHOCARDIOGRAM CANDELARIO WARNER Age: 80 : 12/10/1937 Gender: M Exam Date: 01/03/2018 13:57 Exam Location: [facility] Ht (in): 69 Wt (lb): 178 BSA: 2.00 BP: 168 / 97 Ordering Physician: Leslie Herrmann, Referring Physician: Wally Brown MD Technologist: Ciara Gann RDCS Room Number: 106 Indications: LV FUNCTION AFTER ACS Rhythm: Sinus Technical Quality: fair FINDINGS Left Ventricle Normal size left ventricle. Left ventricular wall thickness at upper limits of normal. Mildly abnormal left ventricular ejection fraction estimated at 45-50%. Right Ventricle Normal right ventricular size and function. Right Atrium Normal right atrial size. Left Atrium Mild left atrial dilatation. Mitral Valve Moderate mitral annular calcification. Moderate mitral regurgitation. Aortic Valve Diffuse thickening of the aortic valve cusps with reduced excursion. Mild aortic stenosis. Tricuspid Valve Tricuspid valve is normal in structure and function. Mild-to- moderate tricuspid regurgitation. Right ventricular systolic pressure estimated to be elevated at 55 mmHg. Pulmonic Valve Pulmonic valve not well visualized, grossly normal. Pericardium Small pericardial effusion. No echocardiographic findings to suggest a hemodynamically significant pericardial effusion. Great Vessels Normal size aortic root. CONCLUSIONS Mildly reduced left ventricular systolic function. Moderate Mitral Regurgitation. Mild left atrial enlargement. Small pericardial effusion without echocardiographic evidence of hemodynamic compromise. Mild Aortic stenosis. Wally Brown M.D. (Electronically Signed) Final Date: 03 January 2018 16:09 MEASUREMENTS (Male / Female) Normal Values 2D ECHO LV Diastolic Diameter PLAX 4.7 cm 4.2 - 5.9 / 3.9 - 5.3 cm LV Systolic Diameter PLAX 3.6 cm 2.1 - 4.0 cm LV Fractional Shortening PLAX 23.4 % 25 - 46 % LV Ejection Fraction 2D Teich 46.8 % IVS Diastolic Thickness 1.0 cm LVPW Diastolic Thickness 1.0 cm LV Relative Wall Thickness 0.4 RV Internal Dim ED PLAX 3.8 cm 1.9 - 3.8 cm LVOT Diameter 1.9 cm Aortic Root Diameter 2.6 cm LA Systolic Diameter LX 4.3 cm 3.0 - 4.0 / 2.7 - 3.8 cm LA Volume 34.0 cm 18 - 58 / 22 - 52 cm Ascending Aorta Diameter 3.1 cm DOPPLER AV Peak Velocity 190.0 cm/s AV Peak Gradient 14.4 mmHg AV Mean Velocity 116.0 cm/s AV Mean Gradient 6.0 mmHg AV Velocity Time Integral 36.9 cm LVOT Peak Velocity 76.0 cm/s LVOT Peak Gradient 2.3 mmHg LVOT Mean Velocity 51.4 cm/s LVOT Mean Gradient 1.0 mmHg LVOT Velocity Time Integral 16.0 cm LVOT Stroke Volume 45.4 cm AV Area Cont Eq vti 1.2 cm AV Area Cont Eq pk 1.1 cm MV Peak Velocity 171.0 cm/s MV Peak Gradient 11.7 mmHg MV Mean Velocity 78.2 cm/s MV Mean Gradient 3.0 mmHg Mitral E Point Velocity 140.0 cm/s Mitral A Point Velocity 68.0 cm/s Mitral E to A Ratio 2.1 MV PHT Velocity 179.0 cm/s MV Deceleration [place] 2610.0 cm/s MV Pressure Half Time 20.6 ms MV Area PHT 10.7 cm MV Deceleration Time 124.0 ms TR Peak Velocity 351.0 cm/s TR Peak Gradient 49.3 mmHg Right Atrial Pressure 10.0 mmHg Pulmonary Artery Systolic Pressu 59.3 mmHg Right Ventricular Systolic Press 59.3 mmHg PV Peak Velocity 96.5 cm/s PV Peak Gradient 3.7 mmHg PV Mean Velocity 61.0 cm/s PV Mean Gradient 2.0 mmHg PV Velocity Time Integral 14.5 cm LV E' Lateral Velocity 8.5 cm/s Mitral E to LV E' Lateral Ratio 16.5 LV E' Septal Velocity 4.0 cm/s Mitral E to LV E' Septal Ratio 35.0 Disposition Summary Disposition Principal Diagnosis: Right lower extremity cellulitis Additional Diagnosis: Acute decompensated heart failure Bilateral venous stasis dermatitis Discharge Disposition: home or self care Discharge Instructions General Discharge Information Code Status: Full Code Patient's Diet: Heart healthy Patient's Activity: As tolerated Follow-Up Instructions/Appts: Please follow up with your pcp 1 in week. Please follow up with your process engineering technician in 1 week. Please follow up with neurology (Dr. Plaza) in 1-2 weeks. Please alternate between acetaminophen and naproxen for your pain to reduce your chances of having a GI bleed. Please continue your care at the wound center. Please take your medications as perscribed. Medications at Discharge Discharge Medications: Stop taking the following medications: Oxycodone HCl/Acetaminophen (Percocet 10-325 MG Tablet) 10 MG-325 MG TABLET ORAL THREE TIMES DAILY as needed for PAIN Ibuprofen (Ibuprofen) 800 MG TABLET ORAL TWICE DAILY Qty = 30 Continue taking these medications: Umeclidinium [place] (Incruse Ellipta) 62.5 MCG/ACTUATION BLST.W.DEV 1 PUFF Inhale through mouth DAILY Qty = 90 Comments: NOT GIVEN IN HOSPITAL Albuterol Sulfate (Proair Hfa) 90 MCG HFA.AER.AD 2 Puff Inhale through mouth EVERY 4-6 HOURS NEEDED as needed for COPD Comments: Last Taken:01/15/18 Time:1400 PM Glimepiride (Glimepiride) 1 MG TABLET 1 Tablet ORAL TWICE DAILY Comments: NOT GIVEN IN HOSPITAL INSULIN GIVEN NEEDED PER SCALE Montelukast Sodium (Singulair) 10 MG TABLET 1 Tablet ORAL DAILY Comments: NOT GIVEN IN HOSPITAL Metformin HCl (Glucophage) 1,000 MG TABLET 1 Tablet ORAL TWICE DAILY Comments: NOT GIVEN IN HOSPITAL Furosemide (Lasix) 40 MG TABLET 1 Tablet ORAL Every night Comments: GIVEN IV IN HOSPITAL LAST DOSE 40 MG Last Taken:01/15/18 Time:0800 Ipratropium/Albuterol Sulfate (Combivent Respimat Inhal [place]) 20 MCG-100 MCG/ ACTUATION MIST.INHAL 2 PUFF Inhale through mouth TWICE DAILY Qty = 8 Comments: NOT TAKEN WHILE IN HOSPITAL Hydroxyzine Hydrochloride (Atarax) 50 MG TABLET 2 Tablet ORAL TWICE DAILY Qty = 120 Comments: Last Taken: 01/15/18 Time: 1000 AM Lisinopril (Lisinopril) 10 MG TABLET 1 Tablet ORAL DAILY Qty = 90 Comments: Last Taken: 11/17/17 Time: 10AM Ferrous Sulfate (Ferrous Sulfate) 325 MG (65 MG IRON) TABLET 1 Tablet ORAL DAILY Qty = 30 Comments: Last Taken: 11/17/17 Time:10 A.M. Simvastatin (Simvastatin*) 10 MG TABLET 1 Tablet ORAL Every night Qty = 90 Comments: NOT GIVEN AT HOSPITAL Fluticasone/Salmeterol (Advair 500-50 Diskus) 500 MCG-50 MCG/DOSE BLST.W.DEV 1 Puff Inhale through mouth TWICE DAILY Qty = 60 Comments: NOT GIVEN WHILE IN HOSPITAL Colchicine (Colcrys) 0.6 MG TABLET 1 Tablet ORAL DAILY Qty = 30 Comments: NOT GIVEN IN HOSPITAL Febuxostat (Uloric) 40 MG TABLET 40 Milligram ORAL DAILY Qty = 30 Comments: Last Taken: 11/17/17 Time: 1000 AM Ammonium Lactate (Ammonium Lactate) 12 % CREAM..G. 12 Percent TOPICAL TWICE DAILY Qty = 1 Instructions: . Comments: Last Taken:01/15/18 Time:1000 AM Furosemide (Lasix) 80 MG TABLET 1 Tablet ORAL Every Morning Comments: GIVEN IV IN HOSPITAL LAST DOSE 40 MG Last Taken:01/15/18 Time:0800 Gabapentin (Gabapentin) 400 MG CAPSULE 1 Capsule ORAL THREE TIMES DAILY Comments: Last Taken:01/15/18 Time:1400 PM Carvedilol (Coreg) 25 MG TABLET 1 Tablet ORAL TWICE DAILY Comments: Last Taken:01/15/18 Time:1000 AM Start taking the following new medications: Naproxen (Naprosyn) 500 MG TABLET 1 Tablet ORAL DAILY as needed for PAIN Qty = 30 No Refills Instructions: PLEASE ALTERNATE WITH ACETAMINOPHEN 500 FOR PAIN. Acetaminophen (Acetaminophen) 500 MG TABLET 1 Tablet ORAL DAILY as needed for PAIN Qty = 30 No Refills Instructions: PLEASE ALTERNATE WITH NAPROXEN FOR PAIN Amoxicillin/Potassium Clav (Augmentin 875-125 Tablet) 875 MG-125 MG TABLET 1 Tablet ORAL GIVE ONCE Qty = 1 No Refills Copies To: Carlee Mooney APRN
== END 2018-01-15 17:25 | DRG 291 ==
LOC: DELPENDDIS → ERH 11:44 → 1NO 17:18 → ERHI 17:18 → ENRESERV 17:57 → ENTRNSPT 19:15 → EDTRNSPT 19:34 → EDTRNSPTSTS 19:34 → 1NO 19:51 → CMPTRNSPT 19:57 → 1NO 01-11 08:14 → ENPENDDIS 01-13 14:16 → ENTRNSPT 01-15 16:48 → 1NO 01-15 17:25 → CMPTRNSPT 01-15 17:30
PROVIDERS: Emergency Medicine; Internal Medicine Endocrinology, Diabetes & Metabolism; Student in an Organized Health Care Education/Training Program
DX: I13.0 Hypertensive heart and chronic kidney disease with heart failure and stage 1 through stage 4 chronic kidney disease, or unspecified chronic kidney disease (principal); I50.23 Acute on chronic systolic (congestive) heart failure; N17.9 Acute kidney failure, unspecified; E11.22 Type 2 diabetes mellitus with diabetic chronic kidney disease; J44.1 Chronic obstructive pulmonary disease with (acute) exacerbation; L03.115 Cellulitis of right lower limb; E66.01 Morbid (severe) obesity due to excess calories; L97.219 Non-pressure chronic ulcer of right calf with unspecified severity; L97.429 Non-pressure chronic ulcer of left heel and midfoot with unspecified severity; Z68.43 Body mass index [BMI] 50.0-59.9, adult; I42.9 Cardiomyopathy, unspecified; N18.9 Chronic kidney disease, unspecified; I87.2 Venous insufficiency (chronic) (peripheral); Z95.0 Presence of cardiac pacemaker; E78.5 Hyperlipidemia, unspecified; K27.9 Peptic ulcer, site unspecified, unspecified as acute or chronic, without hemorrhage or perforation; G47.33 Obstructive sleep apnea (adult) (pediatric); M10.9 Gout, unspecified; Z90.79 Acquired absence of other genital organ(s); D64.9 Anemia, unspecified; Z59.0 Homelessness; N40.0 Benign prostatic hyperplasia without lower urinary tract symptoms; M06.9 Rheumatoid arthritis, unspecified; Z79.4 Long term (current) use of insulin; Z79.891 Long term (current) use of opiate analgesic; Z79.51 Long term (current) use of inhaled steroids; M48.02 Spinal stenosis, cervical region; R53.1 Weakness; Z91.19 Patient's noncompliance with other medical treatment and regimen; T40.605A Adverse effect of unspecified narcotics, initial encounter
CPT/HCPCS: 1NP; 36592; 71046; 80307; 82436; 87040; 87070; 93005; 93010; 93306; 93970; J1644; J1940; J3250; J3490; Q9957

== ENCOUNTER 2018-02-05 17:48 | Inpatient (IN) | payer OTHER, MEDICARE ==
[~2018-02-05] VITALS: Ht 182.9 cm; Wt 168.3 kg
[~2018-02-05 17:48] MED LIST changes: +ACETAMINOPHEN500 M4 PO; +CARVEDILOL25 M1 PO; +GABAPENTIN400 M2 PO; +IBUPROFEN800 M1 PO; +NAPROSYN500 M1 PO
[2018-02-05 18:59] LABS: PT 11.4 SEC (9.4-12.5)
[2018-02-05 19:04] LABS: ABSOLUTE BASOPHIL COUNT 0 /CUMM (0.0-0.2); ABSOLUTE EOSINOPHIL COUNT 0.1 /CUMM (0.0-0.7); ABSOLUTE GRANULOCYTE CT 4.4 /CUMM (1.4-6.5); ABSOLUTE LYMPH COUNT 2.6 /CUMM (1.2-3.4); ABSOLUTE MONOCYTE COUNT 0.9 /CUMM (0.10-0.60); BASOPHIL % 0.3 % (0.0-2.0); EOSINOPHIL % 1.5 % (0-5); GRANULOCYTE % 54.6 % (42.2-75.2); HEMATOCRIT 39.6 % (42-52); MEAN CORPUSCULAR HGB 27.4 PG (27.0-31.0); MEAN CORPUSCULAR VOLUME 85.6 FL (80.0-94.0); MEAN PLATELET VOLUME 7.6 FL (7.4-10.4); PLATELET COUNT 175 /CUMM (130-400); RBC DISTRIBUTION WIDTH 15.3 % (11.5-14.5); RED BLOOD CELL CT 4.62 /CUMM (4.70-6.10)
--- NOTE | 2018-02-05 19:14 | ED GENERAL ADULT ---
History of Present Illness General Chief Complaint: Chest Pain Stated Complaint: SIB DR. GARCIA FOR CHEST PAIN, COPD Source: patient Exam Limitations: no limitations Vital Signs & Intake/Output Vital Signs & Intake/Output Vital Signs Date Time Temp Pulse Resp B/P B/P Pulse O2 O2 Flow FiO2 Mean Ox Delivery Rate 02/05 2356 115 20 101/64 98 Room Air 02/058 119 20 134/92 96 Nasal 4.0L Cannula 02/05 2233 98.1 115 102/65 02/06 2232 115 102/65 02/05 2145 98.1 115 22 102/65 96 Nasal 4.0L Cannula 02/06 2124 95 Nasal 4.0L Cannula 02/05 1851 98.6 120 26 122/78 94 Nasal 4.0L Cannula Allergies Coded Allergies: No Known Allergies (01/08/18) Reconcile Medications Acetaminophen 500 MG TABLET 1 TAB PO DAILY PRN PAIN PLEASE ALTERNATE WITH NAPROXEN FOR PAIN Albuterol Sulfate (Proair Hfa) 90 MCG HFA.AER.AD 2 PUF INH Q4-6 PRN PRN COPD (Reported) Ammonium Lactate 12 % CREAM..G. 12 % TP BID foot fissures . Carvedilol (Coreg) 25 MG TABLET 1 TAB PO BID HIGH BLOOD PRESSURE (Reported) Colchicine (Colcrys) 0.6 MG TABLET 1 TAB PO DAILY GOUT (Reported) Escitalopram Oxalate 5 MG TABLET 1 TAB PO DAILY MENTAL HEALTH (Reported) Febuxostat (Uloric) 40 MG TABLET 40 MG PO DAILY Gout Ferrous Sulfate 325 MG (65 MG IRON) TABLET 1 TAB PO DAILY anemia Fluticasone/Salmeterol (Advair 500-50 Diskus) 500 MCG-50 MCG/DOSE BLST.W.DEV 1 PUF INH BID COPD (Reported) Furosemide (Lasix) 40 MG TABLET 1 TAB PO QPM DIURETIC (Reported) Furosemide (Lasix) 80 MG TABLET 1 TAB PO QAM DIURETIC (Reported) Gabapentin 400 MG CAPSULE 1 CAP PO TID NEUROPATHY (Reported) Glimepiride 1 MG TABLET 1 TAB PO BID DM (Reported) Hydroxyzine Hydrochloride (Atarax) 50 MG TABLET 2 TAB PO BID MUCUS (Reported) Ipratropium/Albuterol Sulfate (Combivent Respimat Inhal [place]) 20 MCG-100 MCG/ ACTUATION MIST.INHAL 2 PUFF INH BID copd (Reported) Lisinopril 5 MG TABLET 1 TAB PO DAILY BP (Reported) Metformin HCl (Glucophage) 1,000 MG TABLET 1 TAB PO BID DM (Reported) Montelukast Sodium (Singulair) 10 MG TABLET 1 TAB PO DAILY RESPIRATORY ( Reported) Naproxen (Naprosyn) 500 MG TABLET 1 TAB PO DAILY PRN PAIN PLEASE ALTERNATE WITH ACETAMINOPHEN 500 FOR PAIN. Simvastatin (Simvastatin*) 10 MG TABLET 1 TAB PO QPM CHOLESTEROL (Reported) Umeclidinium [place] (Incruse Ellipta) 62.5 MCG/ACTUATION BLST.W.DEV 1 PUFF INH DAILY COPD (Reported) Triage Note: 62M REPORTS SOB AND CHEST PAIN AND FLUTTERING SENSATION SINCE LAST NIGHT WHICH INHIBITED HIS ABILITY TO FALL ASLEEP. CALLED DR GARCIA TODAY WHO RECOMMENDED HE GO TO ED DUE TO NOTED DYSPNEA ON THE PHONE. PT REPORTS MULTIPLE RECENT ADMISSIONS INCLUDING FOR UNCONTROLLED COPD AND PNA. NOTED TO BY TACHYCARDIC IN TRIAGE AND BROUGHT TO ROOM 12. PLACED ON 3LNC WITHOUT IMPROVEMENT, THEN 4L O2 SAT NOW IS 94-95%. REMAINS TACHY 100'S-130'S. Triage Nurses Notes Reviewed? yes Onset: Abrupt Duration: hour(s): Timing: recent history HPI: 02/04/18 9:30 PM 62-year-old man presents to the emergency department for chest discomfort and difficulty breathing. The patient was sent in by Dr. Puente. He has a history of CHF and COPD. Past History Travel History Traveled to [place] past 21 day No Medical History Any Pertinent Medical History? 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 Hx Contributory? No Review of Systems Review of Systems Constitutional: Denies: fever. EENTM: Reports: no symptoms. Respiratory: Reports: short of breath. Cardiovascular: Reports: chest pain. GI: Denies: abdominal pain. Genitourinary: Reports: no symptoms. Musculoskeletal: Reports: no symptoms. Skin: Reports: rash (stasis dermatitis). Neurological/Psychological: Reports: no symptoms. Hematologic/Endocrine: Reports: no symptoms. Immunologic/Allergic: Reports: no symptoms. Physical Exam Physical Exam General Appearance: alert, awake, anxious, moderate distress Head: atraumatic, normal appearance Eyes: Bilateral: normal appearance, PERRL, EOMI. Ears, Nose, Throat: normal pharynx, normal ENT inspection Neck: normal inspection, supple Respiratory: normal breath sounds, chest non-tender, decreased breath sounds, accessory muscle use Cardiovascular: regular rate/rhythm Peripheral Pulses: 4+ radial (R), 4+ radial (L) Gastrointestinal: non-tender Back: decreased range of motion Extremities: pedal edema Neurologic/Psych: no motor/sensory deficits, awake, alert, oriented x 3 Skin: intact, rash (stasis dermatitis) Core Measures ACS in differential dx? No CVA/TIA Diagnosis: No Sepsis Present: No Sepsis Focused Exam Completed? No Progress Differential Diagnoses I considered the following diagnoses in my evaluation of the patient: [COPD, CHF , pulmonary embolism] Plan of Care: Orders Procedure Date/time Status Patient Data 02/05 2344 Active EKG 02/056 Active EKG 02/05 2147 Active EKG 02/05 2145 Active Add-on Test (ER Only) 02/05 2058 Active D-DIMER 02/05 1849 Complete B-TYPE NATRIURETIC PEP (BNP) 02/05 1849 Complete TROPONIN LEVEL 02/05 1802 Complete PROTHROMBIN TIME 02/05 180 Complete COMPREHENSIVE METABOLIC PANEL 02/05 180 Complete CBC WITHOUT DIFFERENTIAL 02/05 180 Complete EKG 02/05 1749 Active Current Medications Sig/Keaton Start time Last Medication Dose Stop Time Status Admin Amiodarone HCl/ 360 MG Q12H 02/06 0015 AC Dextrose (Nexterone) N/A 1 UNIT (No Carrier) Furosemide 20 MG ONCE ONE 02/05 2200 CAN (Lasix) 02/05 2201 Laboratory Tests 02/05/18 1849: Anion Gap 11, Estimated GFR > 60, BUN/Creatinine Ratio 25.8 H, Glucose 116 H, Calcium 9.0, Total Bilirubin 1.0, AST 21, ALT 21, Alkaline Phosphatase 79, Troponin I 0.09, Iap-H-Rtwknjxriwv Pept 6490 H, Total Protein 7.3, Albumin 3.8, Globulin 3.5, Albumin/Globulin Ratio 1.1, PT 11.4, INR 1.05, D-Dimer High Sensitivty 315 H, CBC w Diff NO MAN DIFF REQ, RBC 4.62 L, MCV 85.6, MCH 27.4, MCHC 32.0 L, RDW 15.3 H, MPV 7.6, Gran % 54.6, Lymphocytes % 32.0, Monocytes % 11.6 H, Eosinophils % 1.5, Basophils % 0.3, Absolute Granulocytes 4.4, Absolute Lymphocytes 2.6, Absolute Monocytes 0.9 H, Absolute Eosinophils 0.1, Absolute Basophils 0 Initial ED EKG: normal axis (ventricular ectopy), rapid afib Prior EKG: changed Departure Departure Disposition: STILL A PATIENT Condition: Stable Clinical Impression Primary Impression: Afib Secondary Impressions: Wide-complex tachycardia Referrals: Carlee Mooney APRN (PCP/Family) Departure Forms: Customer Survey General Discharge Information Admission Note Spoke With: Mamta Ochoa MD Documentation of Exam: Documentation of any treatments & extenuating circumstances including Concerns Regarding Discharge (functional status, medication knowledge or non-compliance, living conditions, etc.) that warrant an admission rather than observation: [The patient needs ICU level monitoring, IV antiarrhythmics, cardiology consultation .The patient was treated with IV Lopressor, IV amiodarone drip. EKGs were reviewed with Dr Umaña. He will consult and agrees with the plan of care..] Critical Care Note Critical Care Note Critical Care Time: 30-74 min
--- NOTE | 2018-02-05 21:35 | RADIOLOGY REPORT ---
EXAMINATION: XR PORTABLE CHEST CLINICAL INFORMATION: Shortness of breath. COMPARISON: Chest x-ray from 01/08/2018. TECHNIQUE: Portable frontal view of the chest was obtained. FINDINGS: Cardiomegaly again noted with a pacemaker device in place. There is prominence of the interstitial markings bilaterally. No focal airspace consolidation or pleural effusion is seen. No acute osseous abnormality is seen. IMPRESSION: Findings which may reflect central pulmonary vascular congestion and early interstitial edema. Clinically correlate.
[2018-02-05] MEDS ORDERED: LISINOPRIL5 M1 PO (22:41)
[2018-02-05] MEDS ORDERED: ESCITALOPRAM OXA5 MG PO (22:42)
--- NOTE | 2018-02-06 00:25 | History & Physical ---
Schuyler Hoffman MD 02/06/18 0024: General Information and HPI MD Statement: I have seen and personally examined SUZETTE GRIGSBY SR and documented this H&P. The patient is a 62 year old M who presented with a patient stated chief complaint of shortness of breath. Source of Information: patient, old records Exam Limitations: no limitations History of Present Illness: 62 year old male with a past medical history significant for HFrEF (25-30%) nonischemic cardiomyopathy s/p dual chamber PPM/AICD, 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 The patient was just discharged from [facility] three weeks ago after being treated for lower extremity cellulitis and CHF exacerbation requiring intravenous diuretics. He reportedly was admitted at [facility] for dyspnea several days after discharge and treated again for heart failure and stated he required non invasive positive pressure ventilation. He states he felt improved after treatment at [facility] and has been home for the past week experiencing progressively worsening dyspnea. He states his lower extremity edema has been improving on his current medication regimen and states they only decreased his lisinopril from 10mg to 5mg daily but otherwise no new medication changes. The patient complains now of productive cough, increased work of breathing, and requiring 5L supplemental oxygen, up from 3.5L. He also has developed an atypical chest pain at rest, intermittent, moderate severate mid sternal and left sided chest pain that is worsened with cough and inspiration but non exertional. He also reports that he has palpitations. He spoke to Dr. Puente on the phone and was told to go to the emergency department. He also was called by [facility] after a remote pacemaker interrogation this afternoon and told his heart rate was elevated and was advised to go to the hospital. Review of systems was negative for fever, chills, worsening lower extremity swelling, nausea, vomiting, diarrhea and abdominal pain. In the emergency department, he was in atrial fibrillation with rapid ventricular response, given cardizem and metoprolol IVP and started on an amiodarone infusion. Allergies/Medications Allergies: Coded Allergies: No Known Allergies (01/08/18) Home Med list Acetaminophen 500 MG TABLET 1 TAB PO DAILY PRN PAIN PLEASE ALTERNATE WITH NAPROXEN FOR PAIN Albuterol Sulfate (Proair Hfa) 90 MCG HFA.AER.AD 2 PUF INH Q4-6 PRN PRN COPD (Reported) Ammonium Lactate 12 % CREAM..G. 12 % TP BID foot fissures . Carvedilol (Coreg) 25 MG TABLET 1 TAB PO BID HIGH BLOOD PRESSURE (Reported) Colchicine (Colcrys) 0.6 MG TABLET 1 TAB PO DAILY GOUT (Reported) Escitalopram Oxalate 5 MG TABLET 1 TAB PO DAILY MENTAL HEALTH (Reported) Febuxostat (Uloric) 40 MG TABLET 40 MG PO DAILY Gout Ferrous Sulfate 325 MG (65 MG IRON) TABLET 1 TAB PO DAILY anemia Fluticasone/Salmeterol (Advair 500-50 Diskus) 500 MCG-50 MCG/DOSE BLST.W.DEV 1 PUF INH BID COPD (Reported) Furosemide (Lasix) 40 MG TABLET 1 TAB PO QPM DIURETIC (Reported) Furosemide (Lasix) 80 MG TABLET 1 TAB PO QAM DIURETIC (Reported) Gabapentin 400 MG CAPSULE 1 CAP PO TID NEUROPATHY (Reported) Glimepiride 1 MG TABLET 1 TAB PO BID DM (Reported) Hydroxyzine Hydrochloride (Atarax) 50 MG TABLET 2 TAB PO BID MUCUS (Reported) Ipratropium/Albuterol Sulfate (Combivent Respimat Inhal [place]) 20 MCG-100 MCG/ ACTUATION MIST.INHAL 2 PUFF INH BID copd (Reported) Lisinopril 5 MG TABLET 1 TAB PO DAILY BP (Reported) Metformin HCl (Glucophage) 1,000 MG TABLET 1 TAB PO BID DM (Reported) Montelukast Sodium (Singulair) 10 MG TABLET 1 TAB PO DAILY RESPIRATORY ( Reported) Naproxen (Naprosyn) 500 MG TABLET 1 TAB PO DAILY PRN PAIN PLEASE ALTERNATE WITH ACETAMINOPHEN 500 FOR PAIN. Simvastatin (Simvastatin*) 10 MG TABLET 1 TAB PO QPM CHOLESTEROL (Reported) Umeclidinium [place] (Incruse Ellipta) 62.5 MCG/ACTUATION BLST.W.DEV 1 PUFF INH DAILY COPD (Reported) Compliance With Home Meds: GOOD Past History Travel History Traveled to [place] past 21 day No Medical History Neurological: NONE EENT: NONE Cardiovascular: cardiomyopathy, CHF, chronic venous insuff, hyperlipidemia, CARDIAC ARREST S/P LWC PACER Respiratory: COPD, SLEEP APNEA O2 3.5L NC @ [facility] Gastrointestinal: constipation, peptic ulcer disease, EGD 08/10 showed numerous gastric and duodenal ulcers Hepatic: NONE Renal: benign prost hyperplasia, TEMPORORY DIALYSIS Musculoskeletal: gout, rheumatoid arthritis Psychiatric: NONE Endocrine: diabetes Blood Disorders: anemia Cancer(s): NONE [employer]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 Psychosocial History Who Do You Live With? self Services at Home: Oxygen Primary Language: Romansh Functional Ability ADLs Independent: dressing, eating, toileting, bathing. Ambulation: independent IADLs Independent: shopping, housework, finances, food prep, telephone, transportation , medication admin. Review of Systems Review of Systems Constitutional: Denies: chills, diaphoresis, fever. EENTM: Reports: no symptoms. Cardiovascular: Reports: chest pain, palpitations, peripheral edema. Respiratory: Reports: cough, short of breath, sputum production. GI: Denies: abdominal pain, diarrhea, nausea, vomiting. Genitourinary: Reports: no symptoms. Musculoskeletal: Reports: no symptoms. Skin: Reports: no symptoms. Neurological/Psychological: Reports: no symptoms. Hematologic/Endocrine: Reports: no symptoms. Immunologic/Allergic: Reports: no symptoms. All Other Systems: Reviewed and Negative Exam & Diagnostic Data Last 24 Hrs of Vital Signs/I&O Vital Signs Date Time Temp Pulse Resp B/P B/P Pulse O2 O2 Flow FiO2 Mean Ox Delivery Rate 02/06 0532 97.1 100 20 123/77 99 Nasal 3.5L Cannula 02/06 0423 117 20 105/72 98 Nasal 4.0L Cannula 02/06 0308 97.3 99 22 115/84 96 Nasal 4.0L Cannula 02/06 0129 122 20 142/92 98 Nasal 4.0L Cannula 02/06 0030 98.3 112 20 140/67 02/06 0030 98.3 112 20 140/67 95 Nasal 4.0L Cannula 02/06 0011 115 101/64 02/05 2356 115 20 101/64 98 Nasal 4.0L Cannula 02/058 119 20 134/92 96 Nasal 4.0L Cannula 02/05 2233 98.1 115 102/65 02/05 223 115 102/65 02/055 98.1 115 22 102/65 96 Nasal 4.0L Cannula 02/054 95 Nasal 4.0L Cannula 02/05 1851 98.6 120 26 122/78 94 Nasal 4.0L Cannula Intake & Output 02/06 0800 02/06 0000 02/05 1600 Intake Total Output Total 500 Balance -500 Output, Urine 500 Patient 172.819 kg Weight Physical Exam General Appearance Alert, Oriented X3, Cooperative, Mild Distress, [place], lethargic but answering appropriately, easily arousable to verbal stimulus, morbidly obese Neck Supple, No JVD Cardiovascular No Murmurs, irregularly irregular, tachycardic 100s-120s Lungs end inspiratory and expiratory wheezing/rhonchi, no audible crackles Abdomen Normal Bowel Sounds, Soft, No Tenderness, No Masses Extremities No Clubbing, No Cyanosis, Normal Pulses, chronic venous stasis changes, 2+ bilateral lower extremity pitting edema to knees Last 24 Hrs of Labs/Joaquim: Laboratory Tests 02/06/18 0525: Sodium Pending, Potassium Pending, Chloride Pending, Carbon Dioxide Pending, Anion Gap Pending, BUN Pending, Creatinine Pending, Glucose Pending, Calcium Pending, Phosphorus Pending, Magnesium Pending, Total Bilirubin Pending, AST Pending, ALT Pending, Albumin Pending, APTT Pending, CBC w Diff Pending, WBC Pending, RBC Pending, Hgb Pending, Hct Pending, MCV Pending, MCH Pending, MCHC Pending, RDW Pending, Plt Count Pending, MPV Pending 02/06/18 0230: pH 7.39, pCO2 51 H, pO2 97, HCO3 31 H, ABG O2 Sat (Measured) 97.0, P-50 (Temp Corrected) N, Carboxyhemoglobin 0.2 L, O2 Concentration % 4L, O2 Delivery Method N/C, Phlebotomy Draw Site LEFT RADIAL 02/06/18 0140: Troponin I 0.08 02/05/18 1849: Anion Gap 11, Estimated GFR > 60, BUN/Creatinine Ratio 25.8 H, Glucose 116 H, Calcium 9.0, Total Bilirubin 1.0, AST 21, ALT 21, Alkaline Phosphatase 79, Troponin I 0.09, Dvv-C-[place] Pept 6490 H, Total Protein 7.3, Albumin 3.8, Globulin 3.5, Albumin/Globulin Ratio 1.1, PT 11.4, INR 1.05, D-Dimer High Sensitivty 315 H, CBC w Diff NO MAN DIFF REQ, RBC 4.62 L, MCV 85.6, MCH 27.4, MCHC 32.0 L, RDW 15.3 H, MPV 7.6, Gran % 54.6, Lymphocytes % 32.0, Monocytes % 11.6 H, Eosinophils % 1.5, Basophils % 0.3, Absolute Granulocytes 4.4, Absolute Lymphocytes 2.6, Absolute Monocytes 0.9 H, Absolute Eosinophils 0.1, Absolute Basophils 0 Diagnostic Data EKG Results rapid afib with aberrancy CXR Results Cardiomegaly again noted with a pacemaker device in place. There is prominence of the interstitial markings bilaterally. No focal airspace consolidation or pleural effusion is seen. No acute osseous abnormality is seen. Assessment/Plan Assessment: 62 year old male with a past medical history significant for HFrEF (25-30%) nonischemic cardiomyopathy s/p dual chamber PPM/AICD, 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 Exertional dyspnea: Likely HFrEF exacerbation precipitated by atrial fibrillation w/ RVR and pulmonary congestion Start IV diuresis with furosemide 60mg, patient takes 80mg AM/40mg PM PO at home Daily weights, strict I/Os Monitor renal function on intravenous diurectics Avoid NSAIDs and other nephrotoxins Cardiology consult in the morning Reassess need for ongoing diuresis, consider repeat chest x-ray proBNP elevated to 6500 Atrial fibrillation with rapid ventricular response: Received diltiazem and metoprolol IVP in the ED Check troponins Continue amiodarone infusion Start IV heparin gtt Guiaic negative on VAL Goal HR < 110 Continue oral beta angel HFrEF Diuretics changed to intravenous Continue carvedilol, lisinopril, aspirin, statin Check serial troponins and EKGs to evaluate for myocardial ischemia Cardiology consultation Consider repeat limited transthoracic echocardiogram Pacer interrogation Obtain records from [facility] COPD: TR evaluation Continue supplemental oxygen Continue advair, singulair, and symbicort Nebulized albuterol and ipatropium JORY: CPAP-although patient is noncompliant Check ABG for increased somnolence DM: Hold oral hypoglycemics Diabetic diet Accuchecks TIDAC/HS Novolog sliding scale insulin Continue gabapentin for neuropathy Gout: Continue allopurinol and colchicine Diabetic diet with 2gram sodium restriction DVT ppx-on IV heparin gtt DNI As Ranked By This Provider Problem List: 1. CHF exacerbation 2. Afib 3. Chronic venous stasis dermatitis 4. CHF (congestive heart failure) Core Measures/Misc (07/12) Acute Coronary Syndrome ACS Diagnosis: No Congestive Heart Failure Congestive Heart Failure Diagnosis Yes Last Known EF % 30 Cerebrovascular Accident CVA/TIA Diagnosis: No VTE (View Protocol) VTE Risk Factors Age>40 No Mechanical VTE Prophylaxis d/t N/A MechProphylax Ordered No VTE Pharm Prophylaxis d/t NA PharmProphylax ordered Sepsis (View protocol) Sepsis Present: No Norberto Talavera 02/06/18 0434: Resident Review Statement Resident Statement: examined this patient, discussed with regulatory internship, agreed with regulatory internship, reviewed EMR data (avail), reviewed images Other Findings: 62 year old gentleman with past medical history of HFrEF 25-30%, nonischemic cardiomyopathy status post pacemaker/defibrillator, COPD on 3.5 L of oxygen, obstructive sleep apnea not on CPAP, diabetes, chronic kidney disease, hyperlipidemia, peptic ulcer disease, chronic lower extremity edema, and gout s/ p soft tissue debridement of left foot with multiple admissions for persistent gout and COPD exacerbation presenting worsening shortness of breath and chest pain. Patient was recently discharged from [facility] about 3 days ago where he was admitted for shortness of breath. Since then he's been experiencing progressively shortness of breath, with increasing oxygen requirements up to 5 L. His also been having intermittent mid sternal chest pain with radiation to the left side, states he's been having palpitations. And when he was remote interrogating his AICD he got a call from [facility] saying that his heart rate was elevated and was advised to go to the ED. Denies fever, chills, worsening lower extremity swelling, nausea, vomiting, abdominal pain. Noncompliance with his CPAP In ED patient was found to be in A. fib with RVR. Was given one-time dose of 5 mg Lopressor and one-time dose of cardiazem and was starting on IV amiodarone drip. Vitals on admission temperature 98.3, heart rate 120-->112, 95% on room air, blood pressure 140/67> 122/78. On Examination , was awake however would drift off in the middle of sentence, answered questions appropriately. RS diffuse expiratory wheezing in all areas. Chronic venous skin changes noted bilaterally. Rest of examination as above Labs CBC unremarkable, BEP significant for bicarbonate of 38 and a B UNOS 31, creatinine of 1.2 normal LFTs, d-dimer 315, troponin 0.09, proBNP 6000 490 Chest x-ray shows cardiomegaly and interstitial edema EKG shows A. fib with aberrancy, heart rate of 153 QTC 524 assessment and plan: Atrial fibrillation -could be due to chronic hypoxemia secondary to noncompliance with his CPAP, no clinical indication of any type of underlying infection -Admit ICU for IV amiodarone drip, continuous cardiac monitoring vitals per protocol -We'll start IV heparin with bolus (guaiac negative) -Trend troponin EKG -Follow-up echocardiogram -Cardio consult in a.m. Acute on chronic respiratory failure/ COPD -Follow-up ABG -TRC/nebs, continue Singulair, Symbicort -Continue supplemental oxygen titer to keep oxygen above 90% -CPAP at night -Pulm consult in a.m. HFrEF -Strict I's and O's -Will continue with IV diuresis 60 mg daily for now Will continue home medications of Coreg, lisinopril, gabapentin, Lexapro, Lipitor, colchicine Heart healthy diet CODE STATUS: JEDMamta Healy 02/06/18 0618: Attending MD Review Statement Attending Statement Attending MD Statement: examined this patient, discuss w/resident/PA/[employer], agreed w/resident/PA/[employer], reviewed EMR data (avail), reviewed images, amended to note Attending Assessment/Plan: CC: Shortness of breath PMH: DM, JORY, PAD, cardiomyopathy with 30% ejection fraction S/P AICD biventricular pacer, COPD 3.5 L NC , CKD After his discharge on January 15 patient became really sick in 3 days with cough, shortness of breath and ended up in [facility]. He was there apparently a week ago, he was symptomatically improved after the discharge. But 3 days back he started to notice increased shortness of breath, could not catch his breath even at rest, chest tightness and pleuritic nature of chest pain 5/10 in intensity, nonradiating, nonexertional. His leg swelling was in fact better according to him. He called Dr. Acevedo for his shortness of breath who suggested to go to ER. He usually sends pacemaker report through tele-device, today when he transmitted the reports he received a call from [facility] that his heart rate was running really high so he was suggested to go to ER. He drove to ER 2 times and went back as he did not find parking. Finally he came in the evening again. He has chronic cough with sputum production for 4-5 days but now he feels more congested and now sputum is coming out. His oxygen requirement also increased to 5 L at home. He also endorses palpitations but no fever or chills, nausea or vomiting, no passing out episode. He feels very tired. Vitals: Afebrile, pulse in 120s, RR 26, blood pressure 122/78, saturating 94% on 4 L. On exam: Sleepy but arousable A O 3, cooperative, mild respiratory distress, neck supple, JVD could not be assessed, no lymphadenopathy, mucosa moist, no focal neurological deficit, +2 lower extremity edema, chronic venous stasis changes CVS: S1-S2, tachycardia, irregular. RS: Rhonchi and wheezing. Abdomen: Soft, NT, ND, bowel sounds present. CXR: Findings which may reflect central pulmonary vascular congestion and early interstitial edema. Clinically correlate Assessment and plan Patient was admitted from January 08 to January 15 for right lower extremity cellulitis, heart failure exacerbation and acute kidney injury. After the discharge he became sick again within 3 days and was admitted at [facility] for a few days, then stepdown unit and discharged approximately a week back he was symptomatically better at that time but gradually started to notice dyspnea on exertion, then shortness of breath even at rest. Has pleuritic chest pain and today he received a call from pacemaker people that his heart rate was running really high and was suggested to go to ER. He is in moderate respiratory distress, sleepy but arousable, oriented, rhonchi and wheezing on auscultation, chronic lower extremity edema and venous stasis changes. Chest x-ray confirms the finding of early interstitial edema. He was significantly tachycardic at arrival and it was wide complex tachycardia, ECG appears A. fib with aberrancy causing wide complex. When patient is asked if he has a previous history of A. fib he says yes, none of the previous records mention that he has A. fib, he is currently not anticoagulated if he had history of A. fib thus it's unclear whether this is new onset or old but he appears in RVR with aberrancy causing wide complexes. ECG findings were discussed with sales representative jewelry by Dr. Banuelos who suggested to start amiodarone drip. Given his high stroke risk we'll also start heparin drip, continue to watch in ICU. Pacemaker should be interrogated. + A. fib with RVR with aberrancy causing wide complex tachycardia + Acute on chronic heart failure with reduced ejection fraction + Rule out acute coronary syndrome + Acute on chronic hypoxic respiratory failure, hypercapnia appears chronic + History of DM, JORY noncompliant with CPAP, PAD, COPD 3.5 L NC , CKD - Admit to ICU - Continuous telemetry monitoring -Continue O2 by nasal cannula - IV Lasix 60 mg once now, reevaluate again tomorrow, may need Lasix 40 mg IV twice a day - Strict I's and O's - Daily weights - Serial troponin and EKGs - Cardiology consult in a.m. - Consider interrogation of pacemaker - Continue amiodarone drip - Continue heparin drip - Continue other home medications and sliding scale insulin hold oral hypoglycemics - DVT prophylaxis TTS 32 min
[2018-02-06 05:33] LABS: ABSOLUTE BASOPHIL COUNT 0 /CUMM (0.0-0.2); ABSOLUTE EOSINOPHIL COUNT 0.1 /CUMM (0.0-0.7); ABSOLUTE GRANULOCYTE CT 2.9 /CUMM (1.4-6.5); ABSOLUTE LYMPH COUNT 2.4 /CUMM (1.2-3.4); ABSOLUTE MONOCYTE COUNT 0.7 /CUMM (0.10-0.60); BASOPHIL % 0.4 % (0.0-2.0); EOSINOPHIL % 1.3 % (0-5); GRANULOCYTE % 47.4 % (42.2-75.2); HEMATOCRIT 36.9 % (42-52); MEAN CORPUSCULAR HGB 27.1 PG (27.0-31.0); MEAN CORPUSCULAR HGB CONC 31.7 G/DL (33.0-37.0); MEAN CORPUSCULAR VOLUME 85.5 FL (80.0-94.0); MEAN PLATELET VOLUME 7.3 FL (7.4-10.4); PLATELET COUNT 150 /CUMM (130-400); RBC DISTRIBUTION WIDTH 15.1 % (11.5-14.5); RED BLOOD CELL CT 4.32 /CUMM (4.70-6.10); WHITE BLOOD CELL COUNT 6.2 /CUMM (4.8-10.8)
[2018-02-06 05:55] LABS: PTT 46 SEC (25-37)
--- NOTE | 2018-02-06 06:19 | Admission Certification ---
Admission Certification Certification Statement - As attending physician, I certify that at the time of - admission, based on clinical presentation, severity of - symptoms, need for further diagnostic testing and - therapeutic interventions, and risk of adverse outcomes - without in-hospital treatment, in my clinical assessment, - this patient requires an acute hospital stay for a minimum - of two nights or longer. I have also considered psychsocial - factors such as support system, advanced age, financial - issues, cognitive issues, and failed out-patient treatments, - past re-admission history, safety of patient, and lack of - compliance as applicable. Specific rationale supporting this admission is: A. fib with RVR, heart failure
--- NOTE | 2018-02-06 08:46 | PN- Resident CRCU ---
Sam Aceves 02/06/18 0846: Subjective HPI/CRCU Issues: + A. fib with RVR with aberrancy causing wide complex tachycardia + Acute on chronic heart failure with reduced ejection fraction + Rule out acute coronary syndrome + Acute on chronic hypoxic respiratory failure, hypercapnia appears chronic + History of DM, JORY noncompliant with CPAP, PAD, COPD 3.5 L NC , CKD 24 Hour Events: Patient was seen and examined this morning. He is alert awake and oriented to time place and person. No acute events happened overnight. Patient still continues to report cough, short of breath,. Denies any chest pain, palpitations. He denies any nausea, vomiting, abdominal pain, change in bladder or bowel habits. Denies any fever, chills. labs reviewed WBC 6.2, hemoglobin 11.7 and hematocrit 36.8, platelets 150 Potassium 3.9 and mag 1.7 Troponin negative ProBNP 6490 EKG wide-complex tachycardia and atrial fibrillation, ventricular paced rhythm Objective Vital Signs & I&O Last 8 Hrs of Vitals and I&O: Laboratory Tests 02/06 02/06 02/06 0912 0525 0230 Blood Gas pH (7.35 - 7.45 PH) 7.39 pCO2 (35 - 45 TORR) 51 H pO2 (80 - 100 TORR) 97 HCO3 (21 - 28 MEQ/L) 31 H ABG O2 Sat (Measured) (>96.0 %) 97.0 P-50 (Temp Corrected) N Carboxyhemoglobin (1.5 - 5.0 %) 0.2 L O2 Concentration % 4L O2 Delivery Method N/C Chemistry Sodium (137 - 145 mmol/L) 144 Potassium (3.5 - 5.1 mmol/L) 3.9 Chloride (98 - 107 mmol/L) 93 L Carbon Dioxide (22 - 30 mmol/L) 38 H Anion Gap (5 - 16) 12 BUN (9 - 20 mg/dL) 31 H Creatinine (0.7 - 1.2 mg/dL) 1.2 Estimated GFR (>60 ml/min) > 60 Glucose (65 - 99 mg/dL) 142 H Calcium (8.4 - 10.2 mg/dL) 8.9 Phosphorus (2.5 - 4.5 mg/dL) 4.1 Magnesium (1.6 - 2.3 mg/dL) 1.7 Total Bilirubin (0.2 - 1.3 mg/dL) 0.9 AST (17 - 59 U/L) 15 L ALT (21 - 72 U/L) 23 Albumin (3.5 - 5.0 g/dL) 3.6 Coagulation APTT (25 - 37 SEC) 39 H 46 H Hematology CBC w Diff NO MAN DIFF REQ WBC (4.8 - 10.8 /CUMM) 6.2 RBC (4.70 - 6.10 /CUMM) 4.32 L Hgb (14.0 - 18.0 G/DL) 11.7 L Hct (42 - 52 %) 36.9 L MCV (80.0 - 94.0 FL) 85.5 MCH (27.0 - 31.0 PG) 27.1 MCHC (33.0 - 37.0 G/DL) 31.7 L RDW (11.5 - 14.5 %) 15.1 H Plt Count (130 - 400 /CUMM) 150 MPV (7.4 - 10.4 FL) 7.3 L Gran % (42.2 - 75.2 %) 47.4 Lymphocytes % (20.5 - 51.1 %) 39.3 Monocytes % (1.7 - 9.3 %) 11.6 H Eosinophils % (0 - 5 %) 1.3 Basophils % (0.0 - 2.0 %) 0.4 Absolute Granulocytes (1.4 - 6.5 /CUMM) 2.9 Absolute Lymphocytes (1.2 - 3.4 /CUMM) 2.4 Absolute Monocytes (0.10 - 0.60 /CUMM) 0.7 H Absolute Eosinophils (0.0 - 0.7 /CUMM) 0.1 Absolute Basophils (0.0 - 0.2 /CUMM) 0 Miscellaneous Phlebotomy Draw Site LEFT RADIAL 02/06 02/05 0140 3099 Chemistry Sodium (137 - 145 mmol/L) 143 Potassium (3.5 - 5.1 mmol/L) 4.6 Chloride (98 - 107 mmol/L) 94 L Carbon Dioxide (22 - 30 mmol/L) 38 H Anion Gap (5 - 16) 11 BUN (9 - 20 mg/dL) 31 H Creatinine (0.7 - 1.2 mg/dL) 1.2 Estimated GFR (>60 ml/min) > 60 BUN/Creatinine Ratio (7 - 25 %) 25.8 H Glucose (65 - 99 mg/dL) 116 H Calcium (8.4 - 10.2 mg/dL) 9.0 Total Bilirubin (0.2 - 1.3 mg/dL) 1.0 AST (17 - 59 U/L) 21 ALT (21 - 72 U/L) 21 Alkaline Phosphatase (< 127 U/L) 79 Troponin I (<0.11 ng/ml) 0.08 0.09 [id number] Pept (<125 pg/mL) 6490 H Total Protein (6.3 - 8.2 g/dL) 7.3 Albumin (3.5 - 5.0 g/dL) 3.8 Globulin (1.9 - 4.2 gm/dL) 3.5 Albumin/Globulin Ratio (1.1 - 2.2 %) 1.1 Coagulation PT (9.4 - 12.5 SEC) 11.4 INR (0.90 - 1.17) 1.05 D-Dimer High Sensitivty (0 - 243 ng/ml) 315 H Hematology CBC w Diff NO MAN DIFF REQ WBC (4.8 - 10.8 /CUMM) 8.0 RBC (4.70 - 6.10 /CUMM) 4.62 L Hgb (14.0 - 18.0 G/DL) 12.7 L Hct (42 - 52 %) 39.6 L MCV (80.0 - 94.0 FL) 85.6 MCH (27.0 - 31.0 PG) 27.4 MCHC (33.0 - 37.0 G/DL) 32.0 L RDW (11.5 - 14.5 %) 15.3 H Plt Count (130 - 400 /CUMM) 175 MPV (7.4 - 10.4 FL) 7.6 Gran % (42.2 - 75.2 %) 54.6 Lymphocytes % (20.5 - 51.1 %) 32.0 Monocytes % (1.7 - 9.3 %) 11.6 H Eosinophils % (0 - 5 %) 1.5 Basophils % (0.0 - 2.0 %) 0.3 Absolute Granulocytes (1.4 - 6.5 /CUMM) 4.4 Absolute Lymphocytes (1.2 - 3.4 /CUMM) 2.6 Absolute Monocytes (0.10 - 0.60 /CUMM) 0.9 H Absolute Eosinophils (0.0 - 0.7 /CUMM) 0.1 Absolute Basophils (0.0 - 0.2 /CUMM) 0 Exam General Appearance: well developed/nourished Other Physical Findings: General Appearance Alert, Oriented X3, Cooperative, Mild Distress, TACHYPNEA, lethargic but answering appropriately, easily arousable to verbal stimulus, morbidly obese Neck Supple, No JVD Cardiovascular No Murmurs, irregularly irregular, tachycardic 100s-120s Lungs end inspiratory and expiratory wheezing/rhonchi, no audible crackles Abdomen Normal Bowel Sounds, Soft, No Tenderness, No Masses Extremities No Clubbing, No Cyanosis, Normal Pulses, chronic venous stasis changes, 2+ bilateral lower extremity pitting edema to knees Current Medications: Current Medications Sig/Keaton Start time Last Medication Dose Route Stop Time Status Admin Albuterol Sulfate 2 PUF Q4-6 PRN PRN 02/06 0230 AC INH Albuterol Sulfate 3 ML ONCE ONE 02/05 2100 DC 02/05 INH 02/05 2101 2120 Amiodarone HCl/ 360 MG Q12H 02/06 0630 AC 02/06 Dextrose IV 0624 N/A 1 UNIT Amiodarone HCl/ 360 MG Q12H 02/06 0015 DC 02/06 Dextrose IV 02/06 0630 0030 N/A 1 UNIT Amiodarone HCl/ 150 MG ONCE ONE 02/05 2345 DC 02/06 Dextrose IV 02/05 2354 0011 N/A 1 UNIT Atorvastatin Calcium 10 MG 1700 02/06 1700 AC PO Budesonide/ 2 PUF BID 02/06 0900 DC 02/06 Formoterol Fumarate INH 0857 Carvedilol 25 MG BID 02/06 0900 AC 02/06 PO 0802 Colchicine 600 MCG DAILY 02/06 0900 AC 02/06 PO 0801 Diltiazem HCl 5 MG ONCE ONE 02/05 2200 DC IV PUSH 02/05 220 Escitalopram Oxalate 5 MG DAILY 02/06 0900 AC 02/06 PO 0802 Ferrous Sulfate 325 MG DAILY 02/06 0900 AC 02/06 PO 0802 Fluticasone 2 SPRAY DAILY 02/06 1000 AC 02/06 Propionate JOAQUIN 1027 Furosemide 40 MG 7:30 AM, & 4:30 PM 02/06 1630 AC IV Furosemide 0 .STK-MED ONE 02/06 0239 DC IV Furosemide 60 MG ONCE ONE 02/06 0215 DC 02/06 IV 02/06 0216 0250 Furosemide 20 MG ONCE ONE 02/05 2200 CAN IV PUSH 02/05 2201 Gabapentin 400 MG TID 02/06 0900 AC 02/06 PO 0802 Heparin Sodium 0 .STK-MED ONE 02/06 1017 DC (Porcine) .ROUTE Heparin Sodium 0 .STK-MED ONE 02/06 0239 DC (Porcine) .ROUTE Heparin Sodium 5,000 UNIT ONCE ONE 02/06 0230 DC 02/06 (Porcine) IV 02/06 0231 0250 Heparin Sodium 25,000 UNIT Q24H 02/06 0230 AC 02/06 (Porcine) IV 0250 Sodium Chloride 500 ML Hydroxyzine HCl 0 .STK-MED ONE 02/06 0906 DC PO Hydroxyzine HCl 100 MG ONCE ONE 02/06 0830 DC 02/06 PO 02/06 0831 0904 Insulin Aspart 0 TIDAC 02/06 0800 AC 02/06 SC 1213 Lisinopril 5 MG DAILY 02/06 0900 AC 02/06 PO 0802 Magnesium Sulfate 1 GM ONCE ONE 02/06 1215 AC Dextrose/Water 100 ML IV 02/06 1614 Metoprolol Tartrate 5 MG ONCE ONE 02/05 2230 DC 02/05 IV 02/05 2231 2233 Metoprolol Tartrate 0 .STK-MED ONE 02/05 2223 DC IV Montelukast Sodium 10 MG 2100 02/06 2100 AC PO Impression/Plan Impression/Problem List Impression: 62 year old male with a past medical history significant for HFrEF (25-30%) nonischemic cardiomyopathy s/p dual chamber PPM/AICD, 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 Patient was admitted to ICU for atrial fibrillation with a rapid ventricular rate requiring amiodarone drip. Patient was admitted from January 08 to January 15 for right lower extremity cellulitis, heart failure exacerbation and acute kidney injury. After the discharge he became sick again within 3 days and was admitted at [facility] for a few days, then stepdown unit and discharged approximately a week back. He received a call from pacemaker people that his heart rate was running really high and was suggested to go to ER. He was significantly tachycardic at arrival and it was wide complex tachycardia, ECG appears A. fib with aberrancy causing wide complex. When patient is asked if he has a previous history of A. fib he says yes, none of the previous records mention that he has A. fib, he is currently not anticoagulated if he had history of A. fib thus it's unclear whether this is new onset or old but he appears in RVR with aberrancy causing wide complexes. ECG findings were discussed with legal entity controller who suggested to start amiodarone drip. Given his high stroke risk he was started on heparin drip. ------ In ED patient was found to be in A. fib with RVR. Was given one-time dose of 5 mg Lopressor and one-time dose of cardiazem and was starting on IV amiodarone drip. Vitals on admission temperature 98.3, heart rate 120-->112, 95% on room air, blood pressure 140/67 > 122/78. Labs CBC unremarkable, BEP significant for bicarbonate of 38 and BUN 31, creatinine of 1.2 normal LFTs, d-dimer 315, troponin 0.09, proBNP 6490 Chest x-ray shows cardiomegaly and interstitial edema EKG shows A. fib with aberrancy, wide-complex tachycardia, heart rate of 153, QTC 524 --------- Atrial fibrillation with rapid ventricular response/ WIDE COMPLEXES: Patient presented with worsening shortness of breath, pleuritic chest pain at rest. Received call from pacemaker people that his heart rate was running really high and was suggested to go to the ER. On arrival he was found to have tachycardia, EKG appears A. fib with aberrancy causing wide-complex, tachycardic 130-150. He was hemodynamically stable. When patient is asked if he has a previous history of A. fib he says yes, none of the previous records mention that he has A. fib, he is currently not anticoagulated if he had history of A. fib thus it's unclear whether this is new onset or old but he appears in RVR with aberrancy causing wide complexes. ECG findings were discussed with legal entity controller who suggested to start amiodarone drip. Given his high stroke risk/ chadsvasc score he was started on heparin drip. * Continue amiodarone drip * Continue IV heparin drip Given his high stroke risk/chadsvasc score * Serial troponins negative * Follow-up echocardiogram * Continue home medication carvedilol * Follow cardiology recommendations * Sport Intern consult * Interrogation of ICD * Continuous telemetry monitoring * Monitor vitals every shift * Closely monitor blood pressure Acute on chronic heart failure with reduced ejection fraction Exertional dyspnea most Likely from HFrEF exacerbation precipitated by atrial fibrillation w/ RVR and pulmonary congestion. Patient chest x-ray showed central pulmonary vascular congestion and early interstitial edema. ProBNP elevated 6490. * Patient usually takes Lasix 80 in the morning and 40 in the evening * We will give Lasix IV 40 twice a day daily * Daily weights * Ins and outs * Check serial troponin and EKG, ruled out ACS * Blueprint Developer on board * Will follow-up echocardiogram * Continue Coreg 25 twice daily * Continue lisinopril * Continue atorvastatin * Monitor renal function on intravenous diurectics * Avoid NSAIDs and other nephrotoxins * Maintain potassium above 4 and magnesium about 2 COPD: On 3.5 L nasal cannula/chronic hypercapnic respiratory failure/acute hypoxic respiratory failure Acute on chronic hypoxic respiratory failure most likely from CHF exacerbation and rapid A. fib. * TRC evaluation * Continue supplemental oxygen * Continue advair, singulair * Nebulized albuterol and ipatropium JORY: * CPAP-although patient is noncompliant * Check ABG for increased somnolence prn DM: * Hold oral hypoglycemics * Diabetic diet * Accuchecks TIDAC/HS * Novolog sliding scale insulin * Continue gabapentin for neuropathy Gout: * Continue colchicine Depression * continue Lexapro 5 mg daily ------- Diabetic diet with 2gram sodium restriction DVT ppx-on IV heparin gtt DNI Housekeeping ICU #1 Central line- none #2 Arterial line- none #3 Villanueva catheter- none #4 Rectal tube - none #5 NG tube - none #6 IV/peripheral line- yes #7 IV drips-heparin and amiodarone #8 Vent settings: none #9 pressors: none CPAP at nighttime Problem List: 1. Afib 2. Wide-complex tachycardia Pain Ratin Tomorrow's Labs & Rationales: CBC ICU LAB BUNDLE Plan DVT/Prophylaxis: mechanical, pharmacological Jessica HARPER,[facility] 02/06/18 1102: Attending MD Review Statement Attending Sign Off Attending Cosign Statement: I have: examined this patient, reviewed [employer] EMR data, personally reviewd images, discussd w/resident/PA/APPLICATION INTEGRATION ARCHITECT, discussed mgmt plan w/jesus, discussed mgmt plan w/CM, discussed mgmt plan w/pt, agreed w/resident/PA/APPLICATION INTEGRATION ARCHITECT, amended to note. Other Findings: Seen and examined independently Full history and exam as noted above General Appearance Alert, Oriented X3, Cooperative, Mild Distress, TACHYPNEA, lethargic but answering appropriately, easily arousable to verbal stimulus, morbidly obese Neck Supple, No JVD Cardiovascular No Murmurs, irregularly irregular, tachycardic 100s-120s Lungs end inspiratory and expiratory wheezing/rhonchi, no audible crackles Abdomen Normal Bowel Sounds, Soft, No Tenderness, No Masses Extremities No Clubbing, No Cyanosis, Normal Pulses, chronic venous stasis changes, 2+ bilateral lower extremity pitting edema to knees 62 year old male with a past medical history significant for HFrEF (25-30%) nonischemic cardiomyopathy s/p dual chamber PPM/AICD, 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 NOw with * Acute on chronic respiratory failure due to HFrEF exacerbation precipitated by atrial fibrillation w/ RVR and pulmonary congestion * Atrial fibrillation with rapid ventricular response on amio drip and hence in icu, cardio on board and on heparin and dilt * COPD baseline, no obvious significant exacerbation * JORY noncompliant * History of gout - watch after diuresis for precipitation RECOMMENDATION IV heparin, continue current medications Continue Lasix Colchicine for gout prevention Patient is on Coreg to be continued Cardiology to see Rule out acute coronary syndrome Pacemaker interrogation Sliding scale insulin Continue nebs CPAP at bedtime ABG only if needed Hold Symbicort, continue Singulair, [id number] nebulizer therapy Ask cardiology to see if metoprolol would be better than Coreg for rate control Continue gabapentin Diabetic diet with 2gram sodium restriction DVT ppx-on IV heparin gtt DNI Patient critically ill total time spent 38 minutes
[2018-02-06 09:51] LABS: PTT 39 SEC (25-37)
--- NOTE | 2018-02-06 11:57 | Cons- Cardiology ---
General Information and HPI Consulting Request Date of Consult: 02/06/18 Requested By: Mamta Ochoa MD Reason for Consult: Suspected ventricular tachycardia. Source of Information: patient, old records Exam Limitations: poor historian History of Present Illness: Mr. 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 He was also contacted by [facility] after a remote pacemaker interrogation revealed an elevated heart rate. His initial 12-lead electrocardiogram revealed a wide complex, tachycardia arrhythmia, precordial concordance, and what appeared to be fusion beats. Management was discussed with the ED attending physician (Negro Banuelos D.O.). 6 Allergies/Medications Allergies: Coded Allergies: No Known Allergies (01/08/18) Home Med List: Acetaminophen 500 MG TABLET 1 TAB PO DAILY PRN PAIN PLEASE ALTERNATE WITH NAPROXEN FOR PAIN Albuterol Sulfate (Proair Hfa) 90 MCG HFA.AER.AD 2 PUF INH Q4-6 PRN PRN COPD (Reported) Ammonium Lactate 12 % CREAM..G. 12 % TP BID foot fissures . Carvedilol (Coreg) 25 MG TABLET 1 TAB PO BID HIGH BLOOD PRESSURE (Reported) Colchicine (Colcrys) 0.6 MG TABLET 1 TAB PO DAILY GOUT (Reported) Escitalopram Oxalate 5 MG TABLET 1 TAB PO DAILY MENTAL HEALTH (Reported) Febuxostat (Uloric) 40 MG TABLET 40 MG PO DAILY Gout Ferrous Sulfate 325 MG (65 MG IRON) TABLET 1 TAB PO DAILY anemia Fluticasone/Salmeterol (Advair 500-50 Diskus) 500 MCG-50 MCG/DOSE BLST.W.DEV 1 PUF INH BID COPD (Reported) Furosemide (Lasix) 40 MG TABLET 1 TAB PO QPM DIURETIC (Reported) Furosemide (Lasix) 80 MG TABLET 1 TAB PO QAM DIURETIC (Reported) Gabapentin 400 MG CAPSULE 1 CAP PO TID NEUROPATHY (Reported) Glimepiride 1 MG TABLET 1 TAB PO BID DM (Reported) Hydroxyzine Hydrochloride (Atarax) 50 MG TABLET 2 TAB PO BID MUCUS (Reported) Ipratropium/Albuterol Sulfate (Combivent Respimat Inhal Cavendish) 20 MCG-100 MCG/ ACTUATION MIST.INHAL 2 PUFF INH BID copd (Reported) Lisinopril 5 MG TABLET 1 TAB PO DAILY BP (Reported) Metformin HCl (Glucophage) 1,000 MG TABLET 1 TAB PO BID DM (Reported) Montelukast Sodium (Singulair) 10 MG TABLET 1 TAB PO DAILY RESPIRATORY ( Reported) Naproxen (Naprosyn) 500 MG TABLET 1 TAB PO DAILY PRN PAIN PLEASE ALTERNATE WITH ACETAMINOPHEN 500 FOR PAIN. Simvastatin (Simvastatin*) 10 MG TABLET 1 TAB PO QPM CHOLESTEROL (Reported) Umeclidinium Prospect (Incruse Ellipta) 62.5 MCG/ACTUATION BLST.W.DEV 1 PUFF INH DAILY COPD (Reported) Review of Systems Review of Systems: 14 point system review was obtained and was noncontributory, other than as above. 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 Psychosocial History Who Do You Live With? self Services at Home: Oxygen Primary Language: Jordanian Functional Ability ADLs Independent: dressing, eating, toileting, bathing. Ambulation: independent IADLs Independent: shopping, housework, finances, food prep, telephone, transportation , medication admin. Exam & Diagnostic Data Vital Signs and I&O Vital Signs Date Time Temp Pulse Resp B/P B/P Pulse O2 O2 Flow FiO2 Mean Ox Delivery Rate 02/06 1126 98.6 102 20 124/89 97 Nasal Cannula 02/06 1015 97.9 102 18 108/72 97 Nasal Cannula 02/06 0826 97.8 107 20 105/78 98 Nasal Cannula 02/06 0802 97.6 104 20 116/79 02/06 0802 97.6 104 20 116/79 02/06 0628 97.6 104 20 116/79 99 Nasal 3.5L Cannula 02/06 0624 104 116/79 02/06 0532 97.1 100 20 123/77 99 Nasal 3.5L Cannula 02/06 0423 117 20 105/72 98 Nasal 4.0L Cannula 02/06 0308 97.3 99 22 115/84 96 Nasal 4.0L Cannula 02/06 0129 122 20 142/92 98 Nasal 4.0L Cannula 02/06 0030 98.3 112 20 140/67 02/06 0030 98.3 112 20 140/67 95 Nasal 4.0L Cannula 02/06 0011 115 101/64 02/05 2356 115 20 101/64 98 Nasal 4.0L Cannula 02/05 2248 119 20 134/92 96 Nasal 4.0L Cannula 02/05 2233 98.1 115 102/65 02/05 2232 115 102/65 02/05 2145 98.1 115 22 102/65 96 Nasal 4.0L Cannula 02/05 2124 95 Nasal 4.0L Cannula 02/05 1851 98.6 120 26 122/78 94 Nasal 4.0L Cannula Intake & Output 02/06 1600 02/06 0800 02/06 0000 02/05 1600 02/05 0800 02/05 0000 Intake Total Output Total 500 Balance -500 Output, Urine 500 Patient 381 lb Weight Physical Exam: Morbidly obese, middle-aged male in no acute distress with nasal oxygen in place. Vital signs: See above. HEENT: Normocephalic, atraumatic, EOMI, slightly dry mucous membranes. Neck: No JVD, no bruits. Lungs: Decreased breath sounds bilaterally. Heart: S1, S2 with soft systolic murmur. PMI not well felt. No gallop or rub. Abdomen: Soft, nontender, positive bowel sounds. Extremities: Chronic stasis changes and 2+ bilateral lower extremity edema. Labs/Joaquim Results: Laboratory Tests 02/06 02/06 02/06 0912 0525 0230 Blood Gas pH (7.35 - 7.45 PH) 7.39 pCO2 (35 - 45 TORR) 51 H pO2 (80 - 100 TORR) 97 HCO3 (21 - 28 MEQ/L) 31 H ABG O2 Sat (Measured) (>96.0 %) 97.0 P-50 (Temp Corrected) N Carboxyhemoglobin (1.5 - 5.0 %) 0.2 L O2 Concentration % 4L O2 Delivery Method N/C Chemistry Sodium (137 - 145 mmol/L) 144 Potassium (3.5 - 5.1 mmol/L) 3.9 Chloride (98 - 107 mmol/L) 93 L Carbon Dioxide (22 - 30 mmol/L) 38 H Anion Gap (5 - 16) 12 BUN (9 - 20 mg/dL) 31 H Creatinine (0.7 - 1.2 mg/dL) 1.2 Estimated GFR (>60 ml/min) > 60 Glucose (65 - 99 mg/dL) 142 H Calcium (8.4 - 10.2 mg/dL) 8.9 Phosphorus (2.5 - 4.5 mg/dL) 4.1 Magnesium (1.6 - 2.3 mg/dL) 1.7 Total Bilirubin (0.2 - 1.3 mg/dL) 0.9 AST (17 - 59 U/L) 15 L ALT (21 - 72 U/L) 23 Albumin (3.5 - 5.0 g/dL) 3.6 Coagulation APTT (25 - 37 SEC) 39 H 46 H Hematology CBC w Diff NO MAN DIFF REQ WBC (4.8 - 10.8 /CUMM) 6.2 RBC (4.70 - 6.10 /CUMM) 4.32 L Hgb (14.0 - 18.0 G/DL) 11.7 L Hct (42 - 52 %) 36.9 L MCV (80.0 - 94.0 FL) 85.5 MCH (27.0 - 31.0 PG) 27.1 MCHC (33.0 - 37.0 G/DL) 31.7 L RDW (11.5 - 14.5 %) 15.1 H Plt Count (130 - 400 /CUMM) 150 MPV (7.4 - 10.4 FL) 7.3 L Gran % (42.2 - 75.2 %) 47.4 Lymphocytes % (20.5 - 51.1 %) 39.3 Monocytes % (1.7 - 9.3 %) 11.6 H Eosinophils % (0 - 5 %) 1.3 Basophils % (0.0 - 2.0 %) 0.4 Absolute Granulocytes (1.4 - 6.5 /CUMM) 2.9 Absolute Lymphocytes (1.2 - 3.4 /CUMM) 2.4 Absolute Monocytes (0.10 - 0.60 /CUMM) 0.7 H Absolute Eosinophils (0.0 - 0.7 /CUMM) 0.1 Absolute Basophils (0.0 - 0.2 /CUMM) 0 Miscellaneous Phlebotomy Draw Site LEFT RADIAL 02/06 02/05 0149 2859 Chemistry Sodium (137 - 145 mmol/L) 143 Potassium (3.5 - 5.1 mmol/L) 4.6 Chloride (98 - 107 mmol/L) 94 L Carbon Dioxide (22 - 30 mmol/L) 38 H Anion Gap (5 - 16) 11 BUN (9 - 20 mg/dL) 31 H Creatinine (0.7 - 1.2 mg/dL) 1.2 Estimated GFR (>60 ml/min) > 60 BUN/Creatinine Ratio (7 - 25 %) 25.8 H Glucose (65 - 99 mg/dL) 116 H Calcium (8.4 - 10.2 mg/dL) 9.0 Total Bilirubin (0.2 - 1.3 mg/dL) 1.0 AST (17 - 59 U/L) 21 ALT (21 - 72 U/L) 21 Alkaline Phosphatase (< 127 U/L) 79 Troponin I (<0.11 ng/ml) 0.08 0.09 [id number] Pept (<125 pg/mL) 6490 H Total Protein (6.3 - 8.2 g/dL) 7.3 Albumin (3.5 - 5.0 g/dL) 3.8 Globulin (1.9 - 4.2 gm/dL) 3.5 Albumin/Globulin Ratio (1.1 - 2.2 %) 1.1 Coagulation PT (9.4 - 12.5 SEC) 11.4 INR (0.90 - 1.17) 1.05 D-Dimer High Sensitivty (0 - 243 ng/ml) 315 H Hematology CBC w Diff NO MAN DIFF REQ WBC (4.8 - 10.8 /CUMM) 8.0 RBC (4.70 - 6.10 /CUMM) 4.62 L Hgb (14.0 - 18.0 G/DL) 12.7 L Hct (42 - 52 %) 39.6 L MCV (80.0 - 94.0 FL) 85.6 MCH (27.0 - 31.0 PG) 27.4 MCHC (33.0 - 37.0 G/DL) 32.0 L RDW (11.5 - 14.5 %) 15.3 H Plt Count (130 - 400 /CUMM) 175 MPV (7.4 - 10.4 FL) 7.6 Gran % (42.2 - 75.2 %) 54.6 Lymphocytes % (20.5 - 51.1 %) 32.0 Monocytes % (1.7 - 9.3 %) 11.6 H Eosinophils % (0 - 5 %) 1.5 Basophils % (0.0 - 2.0 %) 0.3 Absolute Granulocytes (1.4 - 6.5 /CUMM) 4.4 Absolute Lymphocytes (1.2 - 3.4 /CUMM) 2.6 Absolute Monocytes (0.10 - 0.60 /CUMM) 0.9 H Absolute Eosinophils (0.0 - 0.7 /CUMM) 0.1 Absolute Basophils (0.0 - 0.2 /CUMM) 0 Diagnostic Data EKG Results 02/05/2018: Suspected ventricular tachycardia with wide complex IVCD, fusion beats, precordial concordance, etc. CXR Results 02/05/2018: Findings which may reflect central pulmonary vascular congestion and early interstitial edema. Clinically correlate. Other Results Echocardiogram 01/08/2018: 1. THis was a technically difficult and very limited study due to the patient's body habitus. 2. Aortic sclerosis is present. 3. Mitral leaflet thickening is present with moderate anular calcification and minimal to mild mitral insufficiency with left atrial enlargement. 4. There is no obvious pericardial fluid present. 5. The left ventricular chamber is moderately enlarged with eccentric hypertrophy and global hypokinesia with an ejection fraction of approximately 30 -35%. Additional images were obtained following the administration of IV contrast. 6. THe right heart structures were not well visualized. 7. A MUGA scan might be useful in this patient to better assess LV systolic function and wall motion. 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 He was also contacted by [facility] after a remote pacemaker interrogation revealed an elevated heart rate. The major concern is that the patient presented in ventricular tachycardia w/ an ICD in place, w/o shock therapy. Patient was placed on amiodarone and his rhythm improved. Recommendations: * Admit to ICU, follow-up ECGs, follow-up troponins. * Contacted [employer] administrative representative for ICD interrogation. * Electrophysiology consultation. * Replete potassium and aim to maintain between 4.0-4.5 mEq per liter. * Replete magnesium and aim to maintain at or above 2.0 mEq per liter. * Given evidence of vascular congestion on CXR would diurese with IV furosemide. * Determine why he is not on chronic anticoagulation given his history of atrial fibrillation and elevated [id number] Score. * IV heparin for short term (48 hours) given presenting complaint of chest discomfort and atrial fibrillation. * Continue statin, BON inhibitor, beta angel, etc. * Check free T4, TSH, glycosylated hemoglobin A1c, etc. * Echocardiogram recently performed (vide supra). * DVT prophylaxis. Consult Acknowledgment - Thank you for your consult request.
[2018-02-06 12:00] VITALS: BP 90/66
[2018-02-06 16:00] VITALS: BP 104/64
[2018-02-06 17:13] LABS: PTT 79 SEC (25-37)
--- NOTE | 2018-02-06 19:12 | Event Note ---
Event Note Event Note: Patient had an episode of 28 beat V-Tach, according to him it happens every time he is Voiding. He was asymptomatic during this episode, only felt some pounding sensation in his chest and did not feel his AICD shocking. Dr. Umaña at bed side, suggests increasing the amiodarone drip back to 1mg/min and will talk to Dr. Willoughby about his AICD settings. Will continue Coreg 25 mg BID. Will also check Mag, phos and K and replete accordingly.
[2018-02-07] VITALS: BP 96/67
[2018-02-07 05:55] LABS: ABSOLUTE BASOPHIL COUNT 0 /CUMM (0.0-0.2); ABSOLUTE EOSINOPHIL COUNT 0.1 /CUMM (0.0-0.7); ABSOLUTE GRANULOCYTE CT 2.5 /CUMM (1.4-6.5); ABSOLUTE LYMPH COUNT 2.6 /CUMM (1.2-3.4); ABSOLUTE MONOCYTE COUNT 0.5 /CUMM (0.10-0.60); BASOPHIL % 0.3 % (0.0-2.0); EOSINOPHIL % 1.9 % (0-5); GRANULOCYTE % 43.2 % (42.2-75.2); HEMATOCRIT 38.2 % (42-52); MEAN CORPUSCULAR HGB 27.6 PG (27.0-31.0); MEAN CORPUSCULAR VOLUME 86.3 FL (80.0-94.0); MEAN PLATELET VOLUME 7.7 FL (7.4-10.4); PLATELET COUNT 132 /CUMM (130-400); RED BLOOD CELL CT 4.43 /CUMM (4.70-6.10); WHITE BLOOD CELL COUNT 5.8 /CUMM (4.8-10.8)
[2018-02-07 06:06] LABS: PTT 80 SEC (25-37)
[2018-02-07 08:00] VITALS: BP 90/60
--- NOTE | 2018-02-07 09:25 | PN- CRCU ---
Subjective HPI/Critical Care Issues: HPI/CRCU Issues: + A. fib with RVR with aberrancy causing wide complex tachycardia + Acute on chronic heart failure with reduced ejection fraction + Rule out acute coronary syndrome + Acute on chronic hypoxic respiratory failure, hypercapnia appears chronic + History of DM, JORY noncompliant with CPAP, PAD, COPD 3.5 L NC , CKD 24 Hour Events: Patient was seen and examined this morning. He was sitting on chair but complaining of shortness of breath which is improved since yesterday but still not at his baseline. He denied any chest pain at the moment. He still had some episodes of chest pounding while moving all scooping down especially when he moves his bowel. Patient had an episode of 28 beats of V. tach yesterday and his AICD was interrogated and is working but most probably his settings would be changed if needed by Dr. Willoughby and we will contact him tomorrow. His potassiums morning was 4.0 and his magnesium is 2.4. Objective Current Medications: Current Medications Sig/Keaton Start time Last Medication Dose Route Stop Time Status Admin Albuterol Sulfate 3 ML TID 02/06 1407 AC 02/07 INH 1257 Albuterol Sulfate 2 PUF Q4-6 PRN PRN 02/06 0230 AC INH Amiodarone HCl 900 MG Q15H 02/07 1800 AC Dextrose/Water 500 ML IV Amiodarone HCl/ 360 MG Q12H 02/06 0630 AC 02/07 Dextrose IV 02/07 1759 0629 N/A 1 UNIT Atorvastatin Calcium 10 MG 1700 02/06 1700 AC 02/06 PO 1616 Carvedilol 25 MG BID 02/06 0900 AC 02/07 PO 0942 Colchicine 600 MCG DAILY 02/06 0900 AC 02/07 PO 0942 Escitalopram Oxalate 5 MG DAILY 02/06 0900 AC 02/07 PO 0942 Ferrous Sulfate 325 MG DAILY 02/06 0900 AC 02/07 PO 0942 Fluticasone 2 SPRAY DAILY 02/06 1000 AC 02/07 Propionate JOAQUIN 0943 Furosemide 40 MG 7:30 AM, & 4:30 PM 02/06 1630 AC 02/07 IV 0808 Gabapentin 400 MG TID 02/06 0900 AC 02/07 PO 0941 Heparin Sodium 25,000 UNIT Q24H 02/06 0230 AC 02/07 (Porcine) IV 0749 Sodium Chloride 500 ML Hydroxyzine HCl 100 MG BID 02/06 2100 AC 02/07 PO 0940 Insulin Aspart 0 TIDAC 02/06 0800 AC 02/07 SC 1238 Ipratropium Reynolds 2.5 ML TID 02/06 1407 AC 02/07 INH 1258 Lisinopril 5 MG DAILY 02/06 0900 DC 02/07 PO 0945 Magnesium Sulfate 1 GM ONCE ONE 02/06 2245 DC 02/07 Dextrose/Water 100 ML IV 02/07 0244 0000 Magnesium Sulfate 1 GM ONCE ONE 02/06 1215 DC 02/06 Dextrose/Water 100 ML IV 02/06 1614 1237 Montelukast Sodium 10 MG 2100 02/06 2100 AC 02/06 PO 2037 Nystatin 1 IDANIA TID 02/06 1418 AC 02/07 TOP 0946 Potassium Chloride 10 MEQ ONCE ONE 02/07 1330 DC PO 02/07 1331 Sodium Chloride 2 SPRAY Q4P PRN 02/06 1545 AC 02/07 JOAQUIN 0946 Vital Signs & I&O Last 24 Hrs of Vitals and I&O: Vital Signs Date Time Temp Pulse Resp B/P B/P Pulse O2 O2 Flow FiO2 Mean Ox Delivery Rate 02/07 0945 117 90/60 02/07 0942 106 90/60 02/07 0836 95 Nasal 4.0L Cannula 02/07 0800 97.2 85 24 90/60 92 Nasal 4.0L Cannula 02/07 0800 95 Nasal 4.0L Cannula 02/07 0800 97.2 85 24 90/60 92 Nasal 4.0L Cannula 02/07 0629 82 100/60 02/07 0400 97 Nasal 4.0L Cannula 02/07 0000 97 Nasal 4.0L Cannula 02/07 0000 96.9 95 22 96/67 97 Nasal 4.0L Cannula 02/06 2356 94 Nasal 4.0L Cannula 02/06 2038 104 109/69 02/06 2017 94 Nasal 4.0L Cannula 02/06 2000 95 Nasal 4.0L Cannula 02/06 1616 106 97/71 02/06 1600 94 Nasal 4.0L Cannula 02/06 1600 97.6 95 25 104/64 96 Nasal 4.0L Cannula 02/06 1418 Nasal 4.0L Cannula Intake & Output 02/07 1600 02/07 0800 02/07 0000 Intake Total 655 1205 Output Total 1500 2850 Balance -845 -1645 Intake, IV 555 545 Intake, Oral 100 660 Output, Urine 1500 2850 Exam General Appearance: alert, awake, anxious Respiratory: rhonchi, wheezing Cardiovascular: edema, irregularly irregular Abdomen: soft, non-tender, no organomegaly Results Last 24 Hrs of Lab Results: Laboratory Tests 02/07/18 0510: Anion Gap 10, Estimated GFR > 60, Glucose 161 H, Calcium 8.4, Phosphorus 3.8, Magnesium 2.4 H, Total Bilirubin 0.6, AST 16 L, ALT 24, Albumin 3.4 L, APTT 80 H, CBC w Diff NO MAN DIFF REQ, RBC 4.43 L, MCV 86.3, MCH 27.6, MCHC 32.0 L , RDW 15.0 H, MPV 7.7, Gran % 43.2, Lymphocytes % 45.4, Monocytes % 9.2, Eosinophils % 1.9, Basophils % 0.3, Absolute Granulocytes 2.5, Absolute Lymphocytes 2.6, Absolute Monocytes 0.5, Absolute Eosinophils 0.1, Absolute Basophils 0 02/06/182014: Phosphorus 4.6 H, Magnesium 1.8 02/06/18 1720: APTT Cancelled 02/06/18 1640: APTT 79 H Impression/Plan Impression/Plan Impression/Plan: 62 year old male with a past medical history significant for HFrEF (25-30%) nonischemic cardiomyopathy s/p dual chamber PPM/AICD, 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 Patient was admitted to ICU for atrial fibrillation with a rapid ventricular rate requiring amiodarone drip. Patient was admitted from January 08 to January 15 for right lower extremity cellulitis, heart failure exacerbation and acute kidney injury. After the discharge he became sick again within 3 days and was admitted at [facility] for a few days, then stepdown unit and discharged approximately a week back. He received a call from pacemaker people that his heart rate was running really high and was suggested to go to ER. He was significantly tachycardic at arrival and it was wide complex tachycardia, ECG appears A. fib with aberrancy causing wide complex. When patient is asked if he has a previous history of A. fib he says yes, none of the previous records mention that he has A. fib, he is currently not anticoagulated if he had history of A. fib thus it's unclear whether this is new onset or old but he appears in RVR with aberrancy causing wide complexes. ECG findings were discussed with chemist steroids who suggested to start amiodarone drip. Given his high stroke risk he was started on heparin drip. No Atrial fibrillation with rapid ventricular response/ WIDE COMPLEXES: Patient presented with worsening shortness of breath, pleuritic chest pain at rest. Received call from pacemaker people that his heart rate was running really high and was suggested to go to the ER. On arrival he was found to have tachycardia, EKG appears A. fib with aberrancy causing wide-complex, tachycardic 130-150. He was hemodynamically stable. When patient is asked if he has a previous history of A. fib he says yes, none of the previous records mention that he has A. fib, he is currently not anticoagulated if he had history of A. fib thus it's unclear whether this is new onset or old but he appears in RVR with aberrancy causing wide complexes. ECG findings were discussed with chemist steroids who suggested to start amiodarone drip. Given his high stroke risk/ chadsvasc score he was started on heparin drip. * Continue amiodarone drip * Continue IV heparin drip Given his high stroke risk/chadsvasc score * Serial troponins negative * Follow-up echocardiogram * Continue home medication carvedilol * Follow cardiology recommendations * Front Office Attendant consult on Thursday * Interrogation of ICD was done and were told that his ICD is working fine * Continuous telemetry monitoring * Monitor vitals every shift * Closely monitor blood pressure Acute on chronic heart failure with reduced ejection fraction Exertional dyspnea most Likely from HFrEF exacerbation precipitated by atrial fibrillation w/ RVR and pulmonary congestion. Patient chest x-ray showed central pulmonary vascular congestion and early interstitial edema. ProBNP elevated 6490. * Patient usually takes Lasix 80 in the morning and 40 in the evening * We will give Lasix IV 40 twice a day daily * Daily weights * Ins and outs * Check serial troponin and EKG, ruled out ACS * Energy Analyst on board * Will follow-up echocardiogram * Continue Coreg 25 twice daily * Patient had his lisinopril today but we will hold lisinopril for tomorrow * Continue atorvastatin * Monitor renal function on intravenous diurectics * Avoid NSAIDs and other nephrotoxins * Maintain potassium above 4 and magnesium about 2 COPD: On 3.5 L nasal cannula/chronic hypercapnic respiratory failure/acute hypoxic respiratory failure Acute on chronic hypoxic respiratory failure most likely from CHF exacerbation and rapid A. fib. * TRC evaluation * Continue supplemental oxygen * Continue advair, singulair * Nebulized albuterol and ipatropium JORY: * CPAP-although patient is noncompliant * Check ABG for increased somnolence prn DM: * Hold oral hypoglycemics * Diabetic diet * Accuchecks TIDAC/HS * Novolog sliding scale insulin * Continue gabapentin for neuropathy Gout: * Continue colchicine Depression * continue Lexapro 5 mg daily ------- Diabetic diet with 2gram sodium restriction DVT ppx-on IV heparin gtt DNI Posterior numbness but he had he had Housekeeping ICU #1 Central line- none #2 Arterial line- none #3 Villanueva catheter- none #4 Rectal tube - none #5 NG tube - none #6 IV/peripheral line- yes #7 IV drips-heparin and amiodarone #8 Vent settings: none #9 pressors: none CPAP at nighttime
--- NOTE | 2018-02-07 11:31 | PN- CRCU ---
Subjective HPI/Critical Care Issues: Doing ok In a chair Vtach yesterday noted on sue kendall noted Objective Current Medications: Current Medications Sig/Keaton Start time Last Medication Dose Route Stop Time Status Admin Albuterol Sulfate 3 ML TID 02/06 1407 AC 02/07 INH 0834 Albuterol Sulfate 2 PUF Q4-6 PRN PRN 02/06 0230 AC INH Amiodarone HCl 900 MG Q15H 02/07 1800 AC Dextrose/Water 500 ML IV Amiodarone HCl/ 360 MG Q12H 02/06 0630 AC 02/07 Dextrose IV 02/07 1759 0629 N/A 1 UNIT Atorvastatin Calcium 10 MG 1700 02/06 1700 AC 02/06 PO 1616 Budesonide/ 2 PUF BID 02/06 0900 DC 02/06 Formoterol Fumarate INH 0857 Carvedilol 25 MG BID 02/06 0900 AC 02/07 PO 0942 Colchicine 600 MCG DAILY 02/06 0900 AC 02/07 PO 0942 Escitalopram Oxalate 5 MG DAILY 02/06 0900 AC 02/07 PO 0942 Ferrous Sulfate 325 MG DAILY 02/06 0900 AC 02/07 PO 0942 Fluticasone 2 SPRAY DAILY 02/06 1000 AC 02/07 Propionate JOAQUIN 0943 Furosemide 40 MG 7:30 AM, & 4:30 PM 02/06 1630 AC 02/07 IV 0808 Gabapentin 400 MG TID 02/06 0900 AC 02/07 PO 0941 Heparin Sodium 25,000 UNIT Q24H 02/06 0230 AC 02/07 (Porcine) IV 0749 Sodium Chloride 500 ML Hydroxyzine HCl 100 MG BID 02/06 2100 AC 02/07 PO 0940 Insulin Aspart 0 TIDAC 02/06 0800 AC 02/07 SC 0806 Ipratropium [place] 2.5 ML TID 02/06 1407 AC 02/07 INH 0834 Lisinopril 5 MG DAILY 02/06 0900 AC 02/07 PO 0945 Magnesium Sulfate 1 GM ONCE ONE 02/06 2245 DC 02/07 Dextrose/Water 100 ML IV 02/07 0244 0000 Magnesium Sulfate 1 GM ONCE ONE 02/06 1215 DC 02/06 Dextrose/Water 100 ML IV 02/06 1614 1237 Montelukast Sodium 10 MG 2100 02/06 2100 AC 02/06 PO 2037 Nystatin 1 IDANIA TID 02/06 1418 AC 02/07 TOP 0946 Sodium Chloride 2 SPRAY Q4P PRN 02/06 1545 AC 02/07 JOAQUIN 0946 Vital Signs & I&O Last 24 Hrs of Vitals and I&O: Vital Signs Date Time Temp Pulse Resp B/P B/P Pulse O2 O2 Flow FiO2 Mean Ox Delivery Rate 02/07 0945 117 90/60 02/07 0942 106 90/60 02/07 0836 95 Nasal 4.0L Cannula 02/07 0800 97.2 85 24 90/60 92 Nasal 4.0L Cannula 02/07 0800 95 Nasal 4.0L Cannula 02/07 0800 97.2 85 24 90/60 92 Nasal 4.0L Cannula 02/07 0629 82 100/60 02/07 0400 97 Nasal 4.0L Cannula 02/07 0000 97 Nasal 4.0L Cannula 02/07 0000 96.9 95 22 96/67 97 Nasal 4.0L Cannula 02/06 2356 94 Nasal 4.0L Cannula 02/06 2038 104 109/69 02/06 2017 94 Nasal 4.0L Cannula 02/06 2000 95 Nasal 4.0L Cannula 02/06 1616 106 97/71 02/06 1600 94 Nasal 4.0L Cannula 02/06 1600 97.6 95 25 104/64 96 Nasal 4.0L Cannula 02/06 1418 Nasal 4.0L Cannula 02/06 1200 95 Nasal 4.0L Cannula 02/06 1200 97.8 87 28 90/66 95 Nasal 4.0L Cannula 02/06 1126 98.6 102 20 124/89 97 Nasal Cannula Intake & Output 02/07 1600 02/07 0800 02/07 0000 Intake Total 655 1205 Output Total 1500 2850 Balance -845 -1645 Intake, IV 555 545 Intake, Oral 100 660 Output, Urine 1500 2850 Laboratory Tests 02/07 172 Chemistry Sodium (137 - 145 mmol/L) 142 Potassium (3.5 - 5.1 mmol/L) 4.0 4.2 Chloride (98 - 107 mmol/L) 97 L Carbon Dioxide (22 - 30 mmol/L) 34 H Anion Gap (5 - 16) 10 BUN (9 - 20 mg/dL) 29 H Creatinine (0.7 - 1.2 mg/dL) 1.0 Estimated GFR (>60 ml/min) > 60 Glucose (65 - 99 mg/dL) 161 H Calcium (8.4 - 10.2 mg/dL) 8.4 Phosphorus (2.5 - 4.5 mg/dL) 3.8 4.6 H Magnesium (1.6 - 2.3 mg/dL) 2.4 H 1.8 Total Bilirubin (0.2 - 1.3 mg/dL) 0.6 AST (17 - 59 U/L) 16 L ALT (21 - 72 U/L) 24 Albumin (3.5 - 5.0 g/dL) 3.4 L Coagulation APTT (25 - 37 SEC) 80 H Cancelled Hematology CBC w Diff NO MAN DIFF REQ WBC (4.8 - 10.8 /CUMM) 5.8 RBC (4.70 - 6.10 /CUMM) 4.43 L Hgb (14.0 - 18.0 G/DL) 12.2 L Hct (42 - 52 %) 38.2 L MCV (80.0 - 94.0 FL) 86.3 MCH (27.0 - 31.0 PG) 27.6 MCHC (33.0 - 37.0 G/DL) 32.0 L RDW (11.5 - 14.5 %) 15.0 H Plt Count (130 - 400 /CUMM) 132 MPV (7.4 - 10.4 FL) 7.7 Gran % (42.2 - 75.2 %) 43.2 Lymphocytes % (20.5 - 51.1 %) 45.4 Monocytes % (1.7 - 9.3 %) 9.2 Eosinophils % (0 - 5 %) 1.9 Basophils % (0.0 - 2.0 %) 0.3 Absolute Granulocytes (1.4 - 6.5 /CUMM) 2.5 Absolute Lymphocytes (1.2 - 3.4 /CUMM) 2.6 Absolute Monocytes (0.10 - 0.60 /CUMM) 0.5 Absolute Eosinophils (0.0 - 0.7 /CUMM) 0.1 Absolute Basophils (0.0 - 0.2 /CUMM) 0 02/06 02/06 02/06 02/06 1640 1235 0914 2443 Chemistry Sodium (137 - 145 mmol/L) 144 Potassium (3.5 - 5.1 mmol/L) 3.9 Chloride (98 - 107 mmol/L) 93 L Carbon Dioxide (22 - 30 mmol/L) 38 H Anion Gap (5 - 16) 12 BUN (9 - 20 mg/dL) 31 H Creatinine (0.7 - 1.2 mg/dL) 1.2 Estimated GFR (>60 ml/min) > 60 Glucose (65 - 99 mg/dL) 142 H Hemoglobin A1c (4.2 - 5.8 %) Pending Calcium (8.4 - 10.2 mg/dL) 8.9 Phosphorus (2.5 - 4.5 mg/dL) 4.1 Magnesium (1.6 - 2.3 mg/dL) 1.7 Total Bilirubin (0.2 - 1.3 mg/dL) 0.9 AST (17 - 59 U/L) 15 L ALT (21 - 72 U/L) 23 Troponin I (<0.11 ng/ml) 0.06 Albumin (3.5 - 5.0 g/dL) 3.6 TSH (0.270 - 4.200 uIU/mL) 1.050 Free T4 (0.78 - 2.44 ng/dL) 1.24 Coagulation APTT (25 - 37 SEC) 79 H 39 H 46 H Hematology CBC w Diff NO MAN DIFF REQ WBC (4.8 - 10.8 /CUMM) 6.2 RBC (4.70 - 6.10 /CUMM) 4.32 L Hgb (14.0 - 18.0 G/DL) 11.7 L Hct (42 - 52 %) 36.9 L MCV (80.0 - 94.0 FL) 85.5 MCH (27.0 - 31.0 PG) 27.1 MCHC (33.0 - 37.0 G/DL) 31.7 L RDW (11.5 - 14.5 %) 15.1 H Plt Count (130 - 400 /CUMM) 150 MPV (7.4 - 10.4 FL) 7.3 L Gran % (42.2 - 75.2 %) 47.4 Lymphocytes % (20.5 - 51.1 %) 39.3 Monocytes % (1.7 - 9.3 %) 11.6 H Eosinophils % (0 - 5 %) 1.3 Basophils % (0.0 - 2.0 %) 0.4 Absolute Granulocytes (1.4 - 6.5 /CUMM) 2.9 Absolute Lymphocytes (1.2 - 3.4 /CUMM) 2.4 Absolute Monocytes (0.10 - 0.60 /CUMM) 0.7 H Absolute Eosinophils (0.0 - 0.7 /CUMM) 0.1 Absolute Basophils (0.0 - 0.2 /CUMM) 0 02/06 02/06 02/05 8118 8400 2874 Blood Gas pH (7.35 - 7.45 PH) 7.39 pCO2 (35 - 45 TORR) 51 H pO2 (80 - 100 TORR) 97 HCO3 (21 - 28 MEQ/L) 31 H ABG O2 Sat (Measured) (>96.0 %) 97.0 P-50 (Temp Corrected) N Carboxyhemoglobin (1.5 - 5.0 %) 0.2 L O2 Concentration % 4L O2 Delivery Method N/C Chemistry Sodium (137 - 145 mmol/L) 143 Potassium (3.5 - 5.1 mmol/L) 4.6 Chloride (98 - 107 mmol/L) 94 L Carbon Dioxide (22 - 30 mmol/L) 38 H Anion Gap (5 - 16) 11 BUN (9 - 20 mg/dL) 31 H Creatinine (0.7 - 1.2 mg/dL) 1.2 Estimated GFR (>60 ml/min) > 60 BUN/Creatinine Ratio (7 - 25 %) 25.8 H Glucose (65 - 99 mg/dL) 116 H Calcium (8.4 - 10.2 mg/dL) 9.0 Total Bilirubin (0.2 - 1.3 mg/dL) 1.0 AST (17 - 59 U/L) 21 ALT (21 - 72 U/L) 21 Alkaline Phosphatase (< 127 U/L) 79 Troponin I (<0.11 ng/ml) 0.08 0.09 [id number]-[id number] Pept (<125 pg/mL) 6490 H Total Protein (6.3 - 8.2 g/dL) 7.3 Albumin (3.5 - 5.0 g/dL) 3.8 Globulin (1.9 - 4.2 gm/dL) 3.5 Albumin/Globulin Ratio (1.1 - 2.2 %) 1.1 Coagulation PT (9.4 - 12.5 SEC) 11.4 INR (0.90 - 1.17) 1.05 D-Dimer High Sensitivty (0 - 243 ng/ml) 315 H Hematology CBC w Diff NO MAN DIFF REQ WBC (4.8 - 10.8 /CUMM) 8.0 RBC (4.70 - 6.10 /CUMM) 4.62 L Hgb (14.0 - 18.0 G/DL) 12.7 L Hct (42 - 52 %) 39.6 L MCV (80.0 - 94.0 FL) 85.6 MCH (27.0 - 31.0 PG) 27.4 MCHC (33.0 - 37.0 G/DL) 32.0 L RDW (11.5 - 14.5 %) 15.3 H Plt Count (130 - 400 /CUMM) 175 MPV (7.4 - 10.4 FL) 7.6 Gran % (42.2 - 75.2 %) 54.6 Lymphocytes % (20.5 - 51.1 %) 32.0 Monocytes % (1.7 - 9.3 %) 11.6 H Eosinophils % (0 - 5 %) 1.5 Basophils % (0.0 - 2.0 %) 0.3 Absolute Granulocytes (1.4 - 6.5 /CUMM) 4.4 Absolute Lymphocytes (1.2 - 3.4 /CUMM) 2.6 Absolute Monocytes (0.10 - 0.60 /CUMM) 0.9 H Absolute Eosinophils (0.0 - 0.7 /CUMM) 0.1 Absolute Basophils (0.0 - 0.2 /CUMM) 0 Miscellaneous Phlebotomy Draw Site LEFT RADIAL Microbiology Date/Time Procedure - Status Source Growth 02/06 1200 Surveillance Culture - RECD UPPER RESP 02/06 1102 Surveillance Culture - CAN GI Cancelled: PT REFUSED Impression/Plan Impression/Plan Impression/Plan: General Appearance: well developed/nourished Other Physical Findings: General Appearance Alert, Oriented X3, Cooperative, Mild Distress, [place], lethargic but answering appropriately, easily arousable to verbal stimulus, morbidly obese Neck Supple, No JVD Cardiovascular No Murmurs, irregularly irregular, tachycardic 100s-120s Lungs end inspiratory and expiratory wheezing/rhonchi, no audible crackles Abdomen Normal Bowel Sounds, Soft, No Tenderness, No Masses Extremities No Clubbing, No Cyanosis, Normal Pulses, chronic venous stasis changes, 2+ bilateral lower extremity pitting edema to knees 62 year old male with a past medical history significant for HFrEF (25-30%) nonischemic cardiomyopathy s/p dual chamber PPM/AICD, 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 NOw with * Resolving Acute on chronic respiratory failure due to HFrEF exacerbation precipitated by atrial fibrillation w/ RVR and pulmonary congestion * Atrial fibrillation with rapid ventricular response on amio drip and hence in icu, cardio on board and on heparin and dilt * VT Nonsustained * COPD baseline, no obvious significant exacerbation * JORY noncompliant * History of gout - watch after diuresis for precipitation RECOMMENDATION IV heparin, continue current medications Continue Lasix Colchicine for gout prevention Patient is on Coreg to be continued Cardiology to follow Rule out acute coronary syndrome Pacemaker interrogation Sliding scale insulin Continue nebs CPAP at bedtime ABG only if needed Hold Symbicort, continue Singulair, [id number] nebulizer therapy Continue gabapentin Diabetic diet with 2gram sodium restriction DVT ppx-on IV heparin gtt DNI Patient critically ill total time spent 39 minutes
--- NOTE | 2018-02-07 13:05 | PN- Cardiology ---
Subjective Subjective: Feels a little better today. Less ventricular ectopy on the IV amiodarone. Objective Vital Signs and I&Os Vital Signs Date Time Temp Pulse Resp B/P B/P Pulse O2 O2 Flow FiO2 Mean Ox Delivery Rate 02/07 0945 117 90/60 02/07 0942 106 90/60 02/07 0836 95 Nasal 4.0L Cannula 02/07 0800 97.2 85 24 90/60 92 Nasal 4.0L Cannula 02/07 0800 95 Nasal 4.0L Cannula 02/07 0800 97.2 85 24 90/60 92 Nasal 4.0L Cannula 02/07 0629 82 100/60 02/07 0400 97 Nasal 4.0L Cannula 02/07 0000 97 Nasal 4.0L Cannula 02/07 0000 96.9 95 22 96/67 97 Nasal 4.0L Cannula 02/06 2356 94 Nasal 4.0L Cannula 02/06 2038 104 109/69 02/06 2017 94 Nasal 4.0L Cannula 02/06 2000 95 Nasal 4.0L Cannula 02/06 1616 106 97/71 02/06 1600 94 Nasal 4.0L Cannula 02/06 1600 97.6 95 25 104/64 96 Nasal 4.0L Cannula 02/06 1418 Nasal 4.0L Cannula Intake & Output 02/07 1600 02/07 0800 02/07 0000 02/06 1600 02/06 0800 02/06 0000 Intake Total 655 1205 937 Output Total 1500 2850 500 Balance -845 -1645 937 -500 Intake, IV 555 545 377 Intake, Oral 100 660 560 Number 1 Bowel Movements Output, Urine 1500 2850 500 Patient 381 lb 381 lb Weight Weight Bed scale Measurement Method Physical Exam: Morbidly obese, middle-aged male in no acute distress with nasal oxygen in place. Vital signs: See above. HEENT: Normocephalic, atraumatic, EOMI, slightly dry mucous membranes. Neck: No JVD, no bruits. Lungs: Decreased breath sounds bilaterally. Heart: S1, S2 with soft systolic murmur. PMI not well felt. No gallop or rub. Abdomen: Soft, nontender, positive bowel sounds. Extremities: Chronic stasis changes and 2+ bilateral lower extremity edema. Current Medications: Current Medications Sig/Keaton Start time Last Medication Dose Route Stop Time Status Admin Albuterol Sulfate 3 ML TID 02/06 1407 AC 02/07 INH 0834 Albuterol Sulfate 2 PUF Q4-6 PRN PRN 02/06 0230 AC INH Amiodarone HCl 900 MG Q15H 02/07 1800 AC Dextrose/Water 500 ML IV Amiodarone HCl/ 360 MG Q12H 02/06 0630 AC 02/07 Dextrose IV 02/07 1759 0629 N/A 1 UNIT Atorvastatin Calcium 10 MG 1700 02/06 1700 AC 02/06 PO 1616 Carvedilol 25 MG BID 02/06 0900 AC 02/07 PO 0942 Colchicine 600 MCG DAILY 02/06 0900 AC 02/07 PO 0942 Escitalopram Oxalate 5 MG DAILY 02/06 0900 AC 02/07 PO 0942 Ferrous Sulfate 325 MG DAILY 02/06 0900 AC 02/07 PO 0942 Fluticasone 2 SPRAY DAILY 02/06 1000 AC 02/07 Propionate JOAQUIN 0943 Furosemide 40 MG 7:30 AM, & 4:30 PM 02/06 1630 AC 02/07 IV 0808 Gabapentin 400 MG TID 02/06 0900 AC 02/07 PO 0941 Heparin Sodium 25,000 UNIT Q24H 02/06 0230 AC 02/07 (Porcine) IV 0749 Sodium Chloride 500 ML Hydroxyzine HCl 100 MG BID 02/06 2100 AC 02/07 PO 0940 Insulin Aspart 0 TIDAC 02/06 0800 AC 02/07 SC 1238 Ipratropium [place] 2.5 ML TID 02/06 1407 AC 02/07 INH 0834 Lisinopril 5 MG DAILY 02/06 0900 AC 02/07 PO 0945 Magnesium Sulfate 1 GM ONCE ONE 02/06 2245 DC 02/07 Dextrose/Water 100 ML IV 02/07 0244 0000 Magnesium Sulfate 1 GM ONCE ONE 02/06 1215 DC 02/06 Dextrose/Water 100 ML IV 02/06 1614 1237 Montelukast Sodium 10 MG 2100 02/06 2100 AC 02/06 PO 2037 Nystatin 1 IDANIA TID 02/06 1418 AC 02/07 TOP 0946 Sodium Chloride 2 SPRAY Q4P PRN 02/06 1545 AC 02/07 JOAQUIN 0946 Results Last 48 Hrs of Labs/Mics: Laboratory Tests 02/07/18 0510: Anion Gap 10, Estimated GFR > 60, Glucose 161 H, Calcium 8.4, Phosphorus 3.8, Magnesium 2.4 H, Total Bilirubin 0.6, AST 16 L, ALT 24, Albumin 3.4 L, APTT 80 H, CBC w Diff NO MAN DIFF REQ, RBC 4.43 L, MCV 86.3, MCH 27.6, MCHC 32.0 L , RDW 15.0 H, MPV 7.7, Gran % 43.2, Lymphocytes % 45.4, Monocytes % 9.2, Eosinophils % 1.9, Basophils % 0.3, Absolute Granulocytes 2.5, Absolute Lymphocytes 2.6, Absolute Monocytes 0.5, Absolute Eosinophils 0.1, Absolute Basophils 0 02/06/18 2015: Phosphorus 4.6 H, Magnesium 1.8 02/06/18 1720: APTT Cancelled 02/06/18 1640: APTT 79 H 02/06/18 1235: Troponin I 0.06 02/06/18 0912: APTT 39 H 02/06/18 0525: Anion Gap 12, Estimated GFR > 60, Glucose 142 H, Hemoglobin A1c Pending, Calcium 8.9, Phosphorus 4.1, Magnesium 1.7, Total Bilirubin 0.9, AST 15 L, ALT 23, Albumin 3.6, TSH 1.050, Free T4 1.24, APTT 46 H, CBC w Diff NO MAN DIFF REQ , RBC 4.32 L, MCV 85.5, MCH 27.1, MCHC 31.7 L, RDW 15.1 H, MPV 7.3 L, Gran % 47.4, Lymphocytes % 39.3, Monocytes % 11.6 H, Eosinophils % 1.3, Basophils % 0.4, Absolute Granulocytes 2.9, Absolute Lymphocytes 2.4, Absolute Monocytes 0.7 H, Absolute Eosinophils 0.1, Absolute Basophils 0 02/06/18 0230: pH 7.39, pCO2 51 H, pO2 97, HCO3 31 H, ABG O2 Sat (Measured) 97.0, P-50 (Temp Corrected) N, Carboxyhemoglobin 0.2 L, O2 Concentration % 4L, O2 Delivery Method N/C, Phlebotomy Draw Site LEFT RADIAL 02/06/18 0140: Troponin I 0.08 02/05/18 1849: Anion Gap 11, Estimated GFR > 60, BUN/Creatinine Ratio 25.8 H, Glucose 116 H, Calcium 9.0, Total Bilirubin 1.0, AST 21, ALT 21, Alkaline Phosphatase 79, Troponin I 0.09, Sox-U-Lvessnqxugc Pept 6490 H, Total Protein 7.3, Albumin 3.8, Globulin 3.5, Albumin/Globulin Ratio 1.1, PT 11.4, INR 1.05, D-Dimer High Sensitivty 315 H, CBC w Diff NO MAN DIFF REQ, RBC 4.62 L, MCV 85.6, MCH 27.4, MCHC 32.0 L, RDW 15.3 H, MPV 7.6, Gran % 54.6, Lymphocytes % 32.0, Monocytes % 11.6 H, Eosinophils % 1.5, Basophils % 0.3, Absolute Granulocytes 4.4, Absolute Lymphocytes 2.6, Absolute Monocytes 0.9 H, Absolute Eosinophils 0.1, Absolute Basophils 0 Assessment/Plan Assessment/Plan 62-y-o-w-m w/ hx of morbid obesity, oxygen dependent COPD (3.5 L), untreated JORY , GERD/PUD, T2DM, CKD, chronic anemia, HLD, gout s/p L foot debridement, previous cellulitis, & nonischemic cardiomyopathy w/ EF 30-35%, previous HFrEF, s/p ICD who presented w/ c/o of chest "tightness" & assoc SOB, dizziness, diaphoresis, & palpitations ("rapid heart rate") . He was also contacted by [facility] after a remote ICD interrogation revealed an elevated heart rate. The major concern was that the patient presented in recurrent ventricular tachycardia w/ an ICD in place, w/o shock therapy. The device was interrogated by the [employer] representative and found to be functioning properly. It appears as though the patient did not sustain ventricular tachycardia long enough during any one of his episodes to trigger the device's algorithm for antitachycardia pacing/shock therapy. Patient was placed on amiodarone and his rhythm has improved. Recommendations: * Continue management in ICU. * Cut back on amiodarone 0.5 mg/min. * Blood pressure is borderline so will hold his BON inhibitor for the short- term. * Follow-up CXR to see if further diuresis is necessary. * EP consultation with his security sergeant (Amadou Willoughby M.D.) tomorrow. Continue telemetry? Not applicable (In ICU.)
--- NOTE | 2018-02-07 15:00 | RADIOLOGY REPORT ---
EXAMINATION: XR PORTABLE CHEST CLINICAL INFORMATION: Hypoxia. COMPARISON: Multiple prior studies most recently 02/05/2018. TECHNIQUE: Portable AP 80 degrees upright view of the chest was obtained. FINDINGS: Left pectoral pacemaker leads are not well demonstrated on this study. The heart is enlarged, unchanged. The lung volumes are decreased. There is vascular congestion with a suggestion of mild edema. No focal consolidation. No acute osseous abnormality. IMPRESSION: Mild vascular congestion and likely mild edema. The findings are slightly less prominent than prior. No evidence of consolidation or atelectasis.
[2018-02-07 16:00] VITALS: BP 90/60
--- NOTE | 2018-02-07 17:14 | ECHOCARDIOGRAM REPORT ---
SUZETTE GRIGSBY Age: 62 : 1955 Gender: M Exam Date: 02/07/2018 08:54 Exam Location: [place] Ht (in): 74 Wt (lb): 381 BSA: 3.09 BP: 100 / 60 Ordering Physician: Norberto Talavera MD Referring Physician: Daksha George MD Technologist: Ciara Gann [facility] Room Number: 106 Indications: AFIB/FLUTTER Rhythm: Sinus Technical Quality: Fair, Technically difficult study FINDINGS Left Ventricle Moderate left ventricular dilatation. Left ventricular wall thickness increased. Moderately abnormal left ventricular ejection fraction estimated at 25-30%. Right Ventricle Right ventricle not well visualized, grossly normal. Right Atrium Right atrial dilatation. Left Atrium Left atrial dilatation. Mitral Valve Mitral valve thickened. Moderate mitral annular calcification. Mild mitral regurgitation. Aortic Valve Trileaflet aortic valve. Diffuse thickening (sclerosis) of the aortic valve cusps without reduced excursion. No aortic stenosis. No aortic regurgitation. Tricuspid Valve Tricuspid valve not well visualized, grossly normal. Pulmonic Valve Pulmonic valve not well visualized, grossly normal. Pericardium No pericardial effusion. Great Vessels Mildly dilated proximal ascending aorta (tube). CONCLUSIONS 1. This was a technically difficult study 2. Aortic sclerosis is present with no valvular stenosis or insufficiency. Minimal enlargement of the ascending aorta is present. 3. Mitral leaflet thickening is present with moderate annular calcification and mild mitral insufficiency with left atrial enlargement. 4. No significant pericardial fluid was detected on this study. 5. The left ventricular chamber is moderately dilated. The end- diastolic dimension is 70 mm. There is eccentric hypertrophy present with global hypokinesia and an ejection fraction of 25-30%. Additional images were obtained following the administration of IV contrast. 6. Right heart chambers are upper normal in size. Pacemaker wires are present. The right ventricular systolic pressure was not accurately assessed. 7. If clinically indicated, a MUGA scan would better assess left ventricular systolic function and ejection fraction. Daksha George M.D. (Electronically Signed) Final Date: 07 February 2018 17:13 MEASUREMENTS (Male / Female) Normal Values 2D ECHO LV Diastolic Diameter PLAX 7.3 cm 4.2 - 5.9 / 3.9 - 5.3 cm LV Systolic Diameter PLAX 6.2 cm 2.1 - 4.0 cm LV Fractional Shortening PLAX 15.1 % 25 - 46 % LV Ejection Fraction 2D Teich 30.9 % IVS Diastolic Thickness 1.3 cm LVPW Diastolic Thickness 1.4 cm LV Relative Wall Thickness 0.4 LVOT Diameter 2.1 cm Aortic Root Diameter 3.7 cm LA Systolic Diameter LX 4.5 cm 3.0 - 4.0 / 2.7 - 3.8 cm Ascending Aorta Diameter 3.8 cm DOPPLER AV Peak Velocity 106.0 cm/s AV Peak Gradient 4.5 mmHg AV Mean Velocity 74.7 cm/s AV Mean Gradient 3.0 mmHg AV Velocity Time Integral 16.7 cm LVOT Peak Velocity 69.9 cm/s LVOT Peak Gradient 2.0 mmHg LVOT Mean Velocity 47.3 cm/s LVOT Mean Gradient 1.0 mmHg LVOT Velocity Time Integral 12.1 cm LVOT Stroke Volume 41.9 cm AV Area Cont Eq vti 2.5 cm AV Area Cont Eq pk 2.3 cm MV Peak Velocity 117.0 cm/s MV Peak Gradient 5.5 mmHg MV Mean Velocity 59.8 cm/s MV Mean Gradient 2.0 mmHg Mitral E Point Velocity 96.7 cm/s MV PHT Velocity 128.0 cm/s MV Deceleration [place] 577.0 cm/s MV Pressure Half Time 66.6 ms MV Area PHT 3.3 cm MV Deceleration Time 195.0 ms PV Peak Velocity 112.0 cm/s PV Peak Gradient 5.0 mmHg PV Mean Velocity 73.4 cm/s PV Mean Gradient 2.0 mmHg PV Velocity Time Integral 16.7 cm LV E' Lateral Velocity 7.5 cm/s Mitral E to LV E' Lateral Ratio 12.9 LV E' Septal Velocity 6.1 cm/s Mitral E to LV E' Septal Ratio 15.7
[2018-02-07 19:14] LABS: PTT 62 SEC (25-37)
[2018-02-08] VITALS: BP 90/60
[2018-02-08 06:38] LABS: ABSOLUTE BASOPHIL COUNT 0 /CUMM (0.0-0.2); ABSOLUTE EOSINOPHIL COUNT 0.1 /CUMM (0.0-0.7); ABSOLUTE GRANULOCYTE CT 2.9 /CUMM (1.4-6.5); ABSOLUTE LYMPH COUNT 2.4 /CUMM (1.2-3.4); ABSOLUTE MONOCYTE COUNT 0.5 /CUMM (0.10-0.60); BASOPHIL % 0.3 % (0.0-2.0); EOSINOPHIL % 2.2 % (0-5); GRANULOCYTE % 48.5 % (42.2-75.2); HEMATOCRIT 37.7 % (42-52); MEAN CORPUSCULAR HGB 26.9 PG (27.0-31.0); MEAN CORPUSCULAR HGB CONC 31.2 G/DL (33.0-37.0); MEAN CORPUSCULAR VOLUME 86.3 FL (80.0-94.0); MEAN PLATELET VOLUME 7.4 FL (7.4-10.4); PLATELET COUNT 131 /CUMM (130-400); RBC DISTRIBUTION WIDTH 15.3 % (11.5-14.5); RED BLOOD CELL CT 4.37 /CUMM (4.70-6.10); WHITE BLOOD CELL COUNT 6.1 /CUMM (4.8-10.8)
[2018-02-08 06:44] LABS: PTT 65 SEC (25-37)
--- NOTE | 2018-02-08 07:39 | PN- Resident CRCU ---
Sam Aceves 02/08/18 0738: Subjective HPI/CRCU Issues: + A. fib with RVR with aberrancy causing wide complex tachycardia/episodes of vtach + Acute on chronic heart failure with reduced ejection fraction + Ruled out acute coronary syndrome + Acute on chronic hypoxic respiratory failure, hypercapnia appears chronic + History of DM, JORY noncompliant with CPAP, PAD, COPD 3.5 L NC , CKD 24 Hour Events: Patient was seen and examined this morning. He is alert awake and oriented to time place and person. No acute events happened overnight. Patient still continues to report cough, short of breath,wheezes, chest congestion. Denies any chest pain, palpitations. He denies any nausea, vomiting, abdominal pain, change in bladder or bowel habits. Denies any fever, chills. EKG wide-complex tachycardia and atrial fibrillation, ventricular paced rhythm vitals- he is afebrile, heart rate 90, respiratory rate 18, blood pressure 100/ 50, saturating at 92 on 4 L oxygen supplementation. All his labs were normal. Troponin negative. Objective Vital Signs & I&O Last 8 Hrs of Vitals and I&O: Vital Signs Date Time Temp Pulse Resp B/P B/P Pulse O2 O2 Flow FiO2 Mean Ox Delivery Rate 02/08 1200 95 Nasal 4.0L Cannula 02/08 0928 83 114/78 02/08 0856 97 Nasal 4.0L Cannula 02/08 0800 92 Nasal 4.0L Cannula 02/08 0800 97.4 94 25 100/78 93 Nasal 4.0L Cannula Exam General Appearance: well developed/nourished, no apparent distress, alert, awake , mild distress Other Physical Findings: Neck Supple, No JVD Cardiovascular No Murmurs, irregularly irregular, tachycardic 100s-120s Lungs end inspiratory and expiratory wheezing/rhonchi, no audible crackles Abdomen Normal Bowel Sounds, Soft, No Tenderness, No Masses Extremities No Clubbing, No Cyanosis, Normal Pulses, chronic venous stasis changes, 2+ bilateral lower extremity pitting edema to knees Current Medications: Current Medications Sig/Keaton Start time Last Medication Dose Route Stop Time Status Admin Acetaminophen 650 MG ONCE ONE 02/07 2015 CAN PO 02/08 2016 Albuterol Sulfate 3 ML TID 02/06 1407 AC 02/08 INH 0856 Albuterol Sulfate 2 PUF Q4-6 PRN PRN 02/06 0230 AC INH Amiodarone HCl 200 MG DAILY 02/15 0900 AC PO Amiodarone HCl 400 MG BID 02/08 1230 AC PO 02/15 0000 Amiodarone HCl 900 MG Q15H 02/07 1800 DC 02/07 Dextrose/Water 500 ML IV 2102 Amiodarone HCl/ 360 MG Q12H 02/06 0630 DC 02/07 Dextrose IV 02/07 1759 0629 N/A 1 UNIT Atorvastatin Calcium 10 MG 1700 02/06 1700 AC 02/07 PO 1632 Carvedilol 25 MG BID 02/06 0900 AC 02/08 PO 0928 Colchicine 600 MCG DAILY 02/06 0900 AC 02/08 PO 0928 Escitalopram Oxalate 5 MG DAILY 02/06 0900 AC 02/08 PO 0929 Ferrous Sulfate 325 MG DAILY 02/06 0900 AC 02/08 PO 0929 Fluticasone 2 SPRAY DAILY 02/06 1000 AC 02/08 Propionate JOAQUIN 0929 Furosemide 60 MG 7:30 AM, & 4:30 PM 02/08 1630 AC IV Furosemide 40 MG 7:30 AM, & 4:30 PM 02/06 1630 DC 02/08 IV 0756 Gabapentin 400 MG TID 02/06 0900 AC 02/08 PO 0929 Guaifenesin 600 MG Q12 02/07 2100 AC 02/08 PO 0929 Heparin Sodium 25,000 UNIT Q24H 02/06 0230 AC 02/08 (Porcine) IV 1001 Sodium Chloride 500 ML Hydrocodone Bitart/ 1 TAB ONCE ONE 02/075 DC 02/07 Acetaminophen PO 02/08 2116 212 Hydrocodone Bitart/ 1 TAB ONCE ONE 02/07 2015 CAN Acetaminophen PO 02/07 2016 Hydroxyzine HCl 100 MG BID 02/06 2100 AC 02/08 PO 0928 Insulin Aspart 0 TIDAC 02/06 0800 AC 02/08 SC 1153 Ipratropium [place] 2.5 ML TID 02/06 1407 AC 02/08 INH 0856 Lisinopril 5 MG DAILY 02/06 0900 DC 02/07 PO 0945 Montelukast Sodium 10 MG 2100 02/06 2100 AC 02/07 PO 2102 Nystatin 1 IDANIA TID 02/06 1418 AC 02/08 TOP 0929 Potassium Chloride 10 MEQ ONCE ONE 02/07 1330 DC 02/07 PO 02/07 1331 1355 Sodium Chloride 2 SPRAY Q4P PRN 02/06 1545 AC 02/08 JOAQUIN 0929 Impression/Plan Impression/Problem List Impression: 62 year old male with a past medical history significant for HFrEF (25-30%) nonischemic cardiomyopathy s/p dual chamber PPM/AICD, 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 Patient was admitted to ICU for atrial fibrillation with rapid ventricular rate requiring amiodarone drip and for episodes of sustained V. tach. Patient was admitted from January 08 to January 15 for right lower extremity cellulitis, heart failure exacerbation and acute kidney injury. After the discharge he became sick again within 3 days and was admitted at [facility] for a few days, then stepdown unit and discharged approximately a week back. He received a call from pacemaker people that his heart rate was running really high and was suggested to go to ER. He was significantly tachycardic at arrival and it was wide complex tachycardia, ECG appears A. fib with aberrancy causing wide complex. When patient is asked if he has a previous history of A. fib he says yes, none of the previous records mention that he has A. fib, he is currently not anticoagulated if he had history of A. fib thus it's unclear whether this is new onset or old but he appears in RVR with aberrancy causing wide complexes. ECG findings were discussed with contract assistant who suggested to start amiodarone drip. Given his high stroke risk he was started on heparin drip. ------ In ED patient was found to be in A. fib with RVR. Was given one-time dose of 5 mg Lopressor and one-time dose of cardiazem and was starting on IV amiodarone drip. Vitals on admission temperature 98.3, heart rate 120-->112, 95% on room air, blood pressure 140/67 > 122/78. Labs CBC unremarkable, BEP significant for bicarbonate of 38 and BUN 31, creatinine of 1.2 normal LFTs, d-dimer 315, troponin 0.09, proBNP 6490 Chest x-ray shows cardiomegaly and interstitial edema EKG shows A. fib with aberrancy, wide-complex tachycardia, heart rate of 153, QTC 524 --------- Atrial fibrillation with rapid ventricular response/ WIDE COMPLEXES: Patient presented with worsening shortness of breath, pleuritic chest pain at rest. Received call from pacemaker people that his heart rate was running really high and was suggested to go to the ER. On arrival he was found to have tachycardia, EKG appears A. fib with aberrancy causing wide-complex, tachycardic 130-150. He was hemodynamically stable. When patient is asked if he has a previous history of A. fib he says yes, none of the previous records mention that he has A. fib, he is currently not anticoagulated if he had history of A. fib thus it's unclear whether this is new onset or old but he appears in RVR with aberrancy causing wide complexes. ECG findings were discussed with contract assistant who suggested to start amiodarone drip. Given his high stroke risk/ chadsvasc score he was started on heparin drip. * Started oral amiodarone 400 mg twice daily, discontinued amiodarone drip * Continue IV heparin drip Given his high stroke risk/chadsvasc score * Serial troponins negative * Follow-up echocardiogram showed abnormal left ventricular ejection fraction estimated at 25-30%. * Continue home medication carvedilol * Follow cardiology recommendations * Workforce Development Program Director consulted * Interrogation of ICD * Continuous telemetry monitoring * Monitor vitals every shift * Closely monitor blood pressure * Eventual plans for cardioversion with or without transesophageal echocardiogram Recurrent wide complex tach with ICD in place Patient has 2 episodes of ventricular tachycardia with an ICD in place without shock therapy. One episode was noted in ER at the time of admission and one more episode of sustained V. tach with 28 beat run on 02/06/2018. Patient was asymptomatic at that time. He has ICD in place. No shock was delivered. The device was interrogated by the [employer] banking representative and found to be functioning properly. It appears as though the patient didn't sustain ventricular tachycardia long enough during any one of these episodes to trigger The device algorhythm for antitachycardia pacing or shock therapy. November 2015- He presented with severe biventricular heart failure at that time. An echocardiogram done on 12/12/2015 showed a severe reduction in LV function with an EF as low as 20%. There was concentric LVH, a dilated right ventricle, a dilated IVC, and a broad left bundle branch block. he was an excellent candidate for cardiac resynchronization therapy given his very broad left bundle branch block. * Workforce Development Program Director Dr. Fenton was consulted. * Will follow-up further recommendations. * AICD device was interrogated, able to determine that all his arrhythmias seen are due to conduction of atrial fibrillation not V. tach * several reprogramming changes were made to his device including increasing his rates and 5 beats minute to allow more biventricular pacing and also placed on conducted A. fib response. Acute on chronic heart failure with reduced ejection fraction Exertional dyspnea most Likely from HFrEF exacerbation precipitated by atrial fibrillation w/ RVR and pulmonary congestion. Patient chest x-ray showed central pulmonary vascular congestion and early interstitial edema. ProBNP elevated 6490. * Patient usually takes Lasix 80 in the morning and 40 in the evening * We will give Lasix IV 60 twice a day daily * Daily weights * Ins and outs * Check serial troponin and EKG, ruled out ACS * Geek [employer] Agent on board * Echo Showed ejection fraction 25% * Continue Coreg 25 twice daily * Continue lisinopril * Continue atorvastatin * Monitor renal function on intravenous diurectics * Avoid NSAIDs and other nephrotoxins * Maintain potassium above 4 and magnesium about 2 COPD: On 3.5 L nasal cannula/chronic hypercapnic respiratory failure/acute hypoxic respiratory failure Acute on chronic hypoxic respiratory failure most likely from CHF exacerbation and rapid A. fib. * TRC evaluation * Continue supplemental oxygen * Continue advair, singulair * Nebulized albuterol and ipatropium * Planning to get CAT scan just given his shortness of breath, wheezes, chest congestion JORY: * CPAP-although patient is noncompliant * Check ABG for increased somnolence prn DM: * Hold oral hypoglycemics * Diabetic diet * Accuchecks TIDAC/HS * Novolog sliding scale insulin * Continue gabapentin for neuropathy Gout: * Continue colchicine 0.6 mg. * Avoid giving more than 0.6 mg given drug interaction with amiodarone Depression * continue Lexapro 5 mg daily Hyperlipidemia * Continue Lipitor 10 daily. Avoid simvastatin given drug interaction with amiodarone ------- Diabetic diet with 2gram sodium restriction DVT ppx-on IV heparin gtt DNI Housekeeping ICU #1 Central line- none #2 Arterial line- none #3 Villanueva catheter- none #4 Rectal tube - none #5 NG tube - none #6 IV/peripheral line- yes #7 IV drips-heparin and amiodarone #8 Vent settings: none #9 pressors: none CPAP at nighttime Problem List: 1. Wide-complex tachycardia 2. Afib 3. Weakness Pain Ratin Tomorrow's Labs & Rationales: cbc icu bundle Plan DVT/Prophylaxis: mechanical, pharmacological Blair Ayala MD 02/08/18 1306: Attending MD Review Statement Attending Sign Off Attending Cosign Statement: I have: examined this patient, reviewed avalbl EMR data, personally reviewd images, discussd w/resident/PA/WOUND CARE COORDINATOR, discussed mgmt plan w/jesus, discussed mgmt plan w/CM, discussed mgmt plan w/pt, agreed w/resident/PA/WOUND CARE COORDINATOR, amended to note. Other Findings: I, Blair Ayala M.D. have examined this patient, reviewed available EMR data, personally reviewed images, discussed with resident/PA/WOUND CARE COORDINATOR, discussed management plan with housestaff and nursing staff, discussed managment plan all of healthcare providers, discussed management plan with patient and/or family, agreed with resident/PA/WOUND CARE COORDINATOR. The past history and parts of the chart have been autopopulated. Impression 62 year old man * acute on chronic heart failure - non-ischemic * new on set a.fib * wide complex tachycardia Plan -f/u cardilogy -change amiodarone gtt to po -iv heparin -iv lasix -monitor in icu until okay for tele per cardiology -check CT scan without contrast TTS 35 min DVT prophylaxis at all times
[2018-02-08 08:00] VITALS: BP 100/78
--- NOTE | 2018-02-08 11:27 | PN- Cardiology ---
Subjective Subjective: Shortness of breath is improving. He remains in atrial fibrillation with ventricular rate currently under control. There are intermittent episodes of wide complex tachycardia which are likely secondary to aberrant conduction of atrial fibrillation. No chest pain. No palpitations. No diaphoresis Objective Vital Signs and I&Os Vital Signs Date Time Temp Pulse Resp B/P B/P Pulse O2 O2 Flow FiO2 Mean Ox Delivery Rate 02/08 0928 83 114/78 02/08 0856 97 Nasal 4.0L Cannula 02/08 0800 92 Nasal 4.0L Cannula 02/08 0800 97.4 94 25 100/78 93 Nasal 4.0L Cannula 02/08 0400 98 Nasal 4.0L Cannula 02/08 0000 97 Nasal 4.0L Cannula 02/08 0000 97.4 76 24 90/60 97 Nasal 4.0L Cannula 02/07 2103 98.2 92 30 95/77 02/07 2102 98.2 93 30 95/77 02/07 2000 96 Nasal 4.0L Cannula 02/07 1915 96 Nasal 4.0L Cannula 02/07 1600 95 Nasal 4.0L Cannula 02/07 1600 96.8 100 30 90/60 95 Nasal 4.0L Cannula 02/07 1200 95 Nasal 4.0L Cannula Intake & Output 02/08 1600 02/08 0800 02/08 0000 02/07 1600 02/07 0800 02/07 0000 Intake Total 581 1301.6 8246 226 6026 Output Total 850 986 370 0942 2850 Balance -269 551.6 224 -845 -1645 Intake, IV 461 461.6 544 555 545 Intake, Oral 120 840 600 100 660 Number 0 Bowel Movements Output, Urine 850 392 230 8018 2850 Physical Exam: Gen: The patient is in no acute distress HEENT: Normal nose, ears, and oropharynx. Pupils equal bilaterally. Conjunctiva normal. Neck: Supple with no JVD, no masses, and no thyromegaly Lungs: Bilateral rhonchi with normal respiratory effort Heart: Irregularly irregular, S1, S2, 2/6 systolic murmur. 2+ peripheral edema, 2+ pulses in the lower extremities bilaterally Abdomen: Soft, nontender, no masses. No hepatomegaly. No splenomegaly Extremities: No clubbing or cyanosis. Normal muscle strength in the upper and lower extremities Skin: Normal skin turgor with no skin ulcers or lesions noted. Neuro: Cranial nerves intact. Sensation intact Psych: Alert and oriented x 3 with appropriate affect Current Medications: Current Medications Sig/Keaton Start time Last Medication Dose Route Stop Time Status Admin Acetaminophen 650 MG ONCE ONE 02/07 2015 CAN PO 02/08 2016 Albuterol Sulfate 3 ML TID 02/06 1407 AC 02/08 INH 0856 Albuterol Sulfate 2 PUF Q4-6 PRN PRN 02/06 0230 AC INH Amiodarone HCl 900 MG Q15H 02/07 1800 AC 02/07 Dextrose/Water 500 ML IV 210 Amiodarone HCl/ 360 MG Q12H 02/06 0630 DC 02/07 Dextrose IV 02/07 1759 0629 N/A 1 UNIT Atorvastatin Calcium 10 MG 1700 02/06 1700 AC 02/07 PO 163 Carvedilol 25 MG BID 02/06 0900 AC 02/08 PO 0928 Colchicine 600 MCG DAILY 02/06 0900 AC 02/08 PO 0928 Escitalopram Oxalate 5 MG DAILY 02/06 0900 AC 02/08 PO 0929 Ferrous Sulfate 325 MG DAILY 02/06 0900 AC 02/08 PO 0929 Fluticasone 2 SPRAY DAILY 02/06 1000 AC 02/08 Propionate JOAQUIN 0929 Furosemide 40 MG 7:30 AM, & 4:30 PM 02/06 1630 AC 02/08 IV 0756 Gabapentin 400 MG TID 02/06 0900 AC 02/08 PO 0929 Guaifenesin 600 MG Q12 02/07 2100 AC 02/08 PO 0929 Heparin Sodium 25,000 UNIT Q24H 02/06 0230 AC 02/08 (Porcine) IV 1001 Sodium Chloride 500 ML Hydrocodone Bitart/ 1 TAB ONCE ONE 02/07 2115 DC 02/07 Acetaminophen PO 02/07 Hydrocodone Bitart/ 1 TAB ONCE ONE 02/07 2015 CAN Acetaminophen PO 02/07 2016 Hydroxyzine HCl 100 MG BID 02/06 2100 AC 02/08 PO 0928 Insulin Aspart 0 TIDAC 02/06 0800 AC 02/08 SC 0751 Ipratropium [place] 2.5 ML TID 02/06 1407 AC 02/08 INH 0856 Lisinopril 5 MG DAILY 02/06 0900 DC 02/07 PO 0945 Montelukast Sodium 10 MG 2100 02/06 2100 AC 02/07 PO 210 Nystatin 1 IDANIA TID 02/06 1418 AC 02/08 TOP 0929 Potassium Chloride 10 MEQ ONCE ONE 02/07 1330 DC 02/07 PO 02/07 1331 1355 Sodium Chloride 2 SPRAY Q4P PRN 02/06 1545 AC 02/08 JOAQUIN 0929 Results Last 48 Hrs of Labs/Mics: Laboratory Tests 02/08/18 0615: Anion Gap 8, Estimated GFR > 60, Glucose 145 H, Calcium 8.9, Phosphorus 4.4, Magnesium 2.1, Total Bilirubin 0.7, AST 16 L, ALT 22, Albumin 3.5, APTT 65 H, CBC w Diff NO MAN DIFF REQ, RBC 4.37 L, MCV 86.3, MCH 26.9 L, MCHC 31.2 L, RDW 15.3 H, MPV 7.4, Gran % 48.5, Lymphocytes % 40.3, Monocytes % 8.7, Eosinophils % 2.2, Basophils % 0.3, Absolute Granulocytes 2.9, Absolute Lymphocytes 2.4, Absolute Monocytes 0.5, Absolute Eosinophils 0.1, Absolute Basophils 0 02/07/18 1850: APTT 62 H 02/07/18 0510: Anion Gap 10, Estimated GFR > 60, Glucose 161 H, Calcium 8.4, Phosphorus 3.8, Magnesium 2.4 H, Total Bilirubin 0.6, AST 16 L, ALT 24, Albumin 3.4 L, APTT 80 H, CBC w Diff NO MAN DIFF REQ, RBC 4.43 L, MCV 86.3, MCH 27.6, MCHC 32.0 L , RDW 15.0 H, MPV 7.7, Gran % 43.2, Lymphocytes % 45.4, Monocytes % 9.2, Eosinophils % 1.9, Basophils % 0.3, Absolute Granulocytes 2.5, Absolute Lymphocytes 2.6, Absolute Monocytes 0.5, Absolute Eosinophils 0.1, Absolute Basophils 0 02/06/18 2015: Phosphorus 4.6 H, Magnesium 1.8 02/06/18 1720: APTT Cancelled 02/06/18 1640: APTT 79 H 02/06/18 1235: Troponin I 0.06 Microbiology 02/06 1200 UPPER RESP: Surveillance Culture - COMP METH RESIST STAPH AUREUS Recent Imaging Studies: Chest x-ray 02/07/18: Mild vascular congestion and likely mild edema. The findings are slightly less prominent than prior. No evidence of consolidation or atelectasis. Assessment/Plan Assessment/Plan Assessment: 1. Acute on chronic HFrEF secondary to non ischemic cardiomyopathy. 2. AICD 3. Chronic venous insufficiency with LE edema and stasis changes 4. New onset atrial fibrillation, rate currently under control 5. Wide complex tachycardia, likely atrial fibrillation with aberrant conduction Plan: * Start oral amiodarone 400 mg p.o. twice daily 1 week followed by 200 mg daily * Discontinue amiodarone drip after initiation of oral amiodarone * Continue IV heparin, with plan to change to Eliquis prior to discharge * Continue IV furosemide, increase dose to 60 mg IV q 12 hours * Continue other cardiac medications * Monitor input and output Continue telemetry? Yes
--- NOTE | 2018-02-08 14:29 | Cons- Cardiology ---
General Information and HPI Consulting Request Date of Consult: 02/08/18 Requested By: Jessica HARPER,Daksha Moreira S Reason for Consult: I was asked to see this patient in regards to atrial fibrillation and wide complex tachycardias in the setting of a severe nonischemic dilated cardiomyopathy. Source of Information: patient, old records Exam Limitations: no limitations History of Present Illness: This patient is well known to me. He is followed by Dr. George as well. To review he is a very pleasant 62-year-old man who has a long-standing history of a known dilated cardiomyopathy, congestive heart failure and morbid obesity. He has had the cardiomyopathy and congestive heart failure for at least 8 or 9 years. He has never had a recent cardiac catheterization but apparently many years ago he had a cardiac catheterization at [facility] that was negative for significant coronary artery disease. He has had chronic left bundle branch block. In addition he has had type 2 diabetes, CRF, hypertension and COPD requiring oxygen, hyperlipidemia chronic lower extremity edema chronic wound healing issues and recurrent pneumonias. He is followed from the pulmonary standpoint by Dr. Puente. Unfortunately from the social standpoint he lives out of his truck and is essentially homeless. I evaluated him in November 2015. He presented with severe biventricular heart failure at that time. An echocardiogram done on 12/12/2015 showed a severe reduction in LV function with an EF as low as 20%. There was concentric LVH, a dilated right ventricle, a dilated IVC, and a broad left bundle branch block. When I saw him at that time he felt he should have an evaluation for infiltrative diseases such as sarcoid and amyloid and also iron overload. I also thought that he was an excellent candidate for cardiac resynchronization therapy given his very broad left bundle branch block. Ultimately he did have a repeat echo while at [facility] he was transferred again showing an EF of 15-20%. On 09/05/2016 I implanted a [employer]tronic commendation biventricular dual-chamber pacemaker defibrillator. I would note that he has missed several follow-up appointments but did meet with us last on 01/26/2017. He has more recently been followed by the [place] team in that they had not communicated to the patient that I still had office in [place]. More recently he was admitted to [facility] with a pneumonia and was discharged. He is now admitted on 02/06/2018 with rapid palpitations and increasing shortness of breath. Also been called by the ER monitoring service that he was in atrial fibrillation. Dr. Umaña had sent me a copy of his EKG which showed very broad QRS complexes without this might be due to VT below the rate cut off. Ultimately however as noted below the patient actually had conducted A. fib and this very wide complex is his [place] QRS complex. Next Regardless he was started on amiodarone and anticoagulation and is been stable over the weekend. I was asked to evaluate him today. He remains in atrial fibrillation. Allergies/Medications Allergies: Coded Allergies: No Known Allergies (01/08/18) Home Med List: Acetaminophen 500 MG TABLET 1 TAB PO DAILY PRN PAIN PLEASE ALTERNATE WITH NAPROXEN FOR PAIN Albuterol Sulfate (Proair Hfa) 90 MCG HFA.AER.AD 2 PUF INH Q4-6 PRN PRN COPD (Reported) Ammonium Lactate 12 % CREAM..G. 12 % TP BID foot fissures . Carvedilol (Coreg) 25 MG TABLET 1 TAB PO BID HIGH BLOOD PRESSURE (Reported) Colchicine (Colcrys) 0.6 MG TABLET 1 TAB PO DAILY GOUT (Reported) Escitalopram Oxalate 5 MG TABLET 1 TAB PO DAILY MENTAL HEALTH (Reported) Febuxostat (Uloric) 40 MG TABLET 40 MG PO DAILY Gout Ferrous Sulfate 325 MG (65 MG IRON) TABLET 1 TAB PO DAILY anemia Fluticasone/Salmeterol (Advair 500-50 Diskus) 500 MCG-50 MCG/DOSE BLST.W.DEV 1 PUF INH BID COPD (Reported) Furosemide (Lasix) 40 MG TABLET 1 TAB PO QPM DIURETIC (Reported) Furosemide (Lasix) 80 MG TABLET 1 TAB PO QAM DIURETIC (Reported) Gabapentin 400 MG CAPSULE 1 CAP PO TID NEUROPATHY (Reported) Glimepiride 1 MG TABLET 1 TAB PO BID DM (Reported) Hydroxyzine Hydrochloride (Atarax) 50 MG TABLET 2 TAB PO BID MUCUS (Reported) Ipratropium/Albuterol Sulfate (Combivent Respimat Inhal Nikolai) 20 MCG-100 MCG/ ACTUATION MIST.INHAL 2 PUFF INH BID copd (Reported) Lisinopril 5 MG TABLET 1 TAB PO DAILY BP (Reported) Metformin HCl (Glucophage) 1,000 MG TABLET 1 TAB PO BID DM (Reported) Montelukast Sodium (Singulair) 10 MG TABLET 1 TAB PO DAILY RESPIRATORY ( Reported) Naproxen (Naprosyn) 500 MG TABLET 1 TAB PO DAILY PRN PAIN PLEASE ALTERNATE WITH ACETAMINOPHEN 500 FOR PAIN. Simvastatin (Simvastatin*) 10 MG TABLET 1 TAB PO QPM CHOLESTEROL (Reported) Umeclidinium [place] (Incruse Ellipta) 62.5 MCG/ACTUATION BLST.W.DEV 1 PUFF INH DAILY COPD (Reported) Current Medications: Current Medications Sig/[place] Start time Last Medication Dose Route Stop Time Status Admin Acetaminophen 650 MG ONCE ONE 02/07 2015 CAN PO 02/08 2016 Albuterol Sulfate 3 ML TID 02/06 1407 AC 02/08 INH 1344 Albuterol Sulfate 2 PUF Q4-6 PRN PRN 02/06 0230 AC INH Amiodarone HCl 200 MG DAILY 02/15 0900 AC PO Amiodarone HCl 400 MG BID 02/08 1230 AC PO 02/15 0000 Amiodarone HCl 900 MG Q15H 02/07 1800 DC 02/07 Dextrose/Water 500 ML IV 2102 Amiodarone HCl/ 360 MG Q12H 02/06 0630 DC 02/07 Dextrose IV 02/07 1759 0629 N/A 1 UNIT Atorvastatin Calcium 10 MG 1700 02/06 1700 AC 02/07 PO 1632 Carvedilol 25 MG BID 02/06 0900 AC 02/08 PO 0928 Colchicine 600 MCG DAILY 02/06 0900 AC 02/08 PO 0928 Escitalopram Oxalate 5 MG DAILY 02/06 0900 AC 02/08 PO 0929 Ferrous Sulfate 325 MG DAILY 02/06 0900 AC 02/08 PO 0929 Fluticasone 2 SPRAY DAILY 02/06 1000 AC 02/08 Propionate JOAQUIN 0929 Furosemide 60 MG 7:30 AM, & 4:30 PM 02/08 1630 AC IV Furosemide 40 MG 7:30 AM, & 4:30 PM 02/06 1630 DC 02/08 IV 0756 Gabapentin 400 MG TID 02/06 0900 AC 02/08 PO 0929 Guaifenesin 600 MG Q12 02/07 2100 AC 02/08 PO 0929 Heparin Sodium 25,000 UNIT Q24H 02/06 0230 AC 02/08 (Porcine) IV 1001 Sodium Chloride 500 ML Hydrocodone Bitart/ 1 TAB ONCE ONE 02/07 2115 DC 02/07 Acetaminophen PO 02/08 2116 2122 Hydrocodone Bitart/ 1 TAB ONCE ONE 02/07 2015 CAN Acetaminophen PO 02/07 2016 Hydroxyzine HCl 100 MG BID 02/06 2100 AC 02/08 PO 0928 Insulin Aspart 0 TIDAC 02/06 0800 AC 02/08 SC 1153 Ipratropium [place] 2.5 ML TID 02/06 1407 AC 02/08 INH 1344 Lisinopril 5 MG DAILY 02/09 0900 AC PO Montelukast Sodium 10 MG 2100 02/06 2100 AC 02/07 PO 210 Nystatin 1 IDANIA TID 02/06 1418 02/08 TOP 0929 Sodium Chloride 2 SPRAY Q4P PRN 02/06 1545 02/08 JOAQUIN 0929 Review of Systems Review of Systems: Constitutional: Negative for decreased appetite, weakness, malaise/fatigue, weight gain, weight loss HENT: Positive for congestion, hearing loss, hoarse voice, nosebleeds, sore throat, tinnitus Eyes: Negative for blurred vision, double vision, photophobia, redness, visual disturbances Cardiovascular: Positive for chest pain, shortness of breath, dyspnea on exertion, irregular heartbeat/palpitations, swelling, near syncope, syncope, orthopnea, paroxysmal nocturnal dyspnea, negative for claudication, cyanosis Respiratory: Positive for cough, negative for hemoptysis, positive for shortness of breath, snoring, sleep apnea/sleep disordered breathing, sputum production, wheezing Endocrine: Negative for cold intolerance, heat intolerance, missed menstrual periods Hematologic/Lymphatic: Negative for adenopathy, abnormal bleeding, easy bruisability Skin: Negative for flushing, itching, rashes, skin cancer/suspicious lesions Musculoskeletal: Positive for arthritis, back pain, joint swelling, muscle cramps, muscle weakness Gastrointestinal: Negative for abdominal pain, change in bowel habits, constipation, diarrhea, dysphagia, heartburn, hemorrhoids, melena, nausea, vomiting Genitourinary: Negative for urinary incontinence, dysuria, flank pain, frequency , hematuria, nocturia, urgency Neurological: Negative for excessive daytime sleepiness, dizziness, focal weakness, headaches, lightheadedness, numbness, paresthesias, seizures, tremors, vertigo Psychiatric/behavioral: Negative for depression, hallucinations, memory loss, substance abuse, suicidal ideas, thoughts of violence, insomnia, nervousness/ anxiety Allergic/Immunologic: Negative for environmental allergies ALL OTHER SYSTEMS REVIEWED AND ARE NEGATIVE Past History Travel History Traveled to [place] past 21 day No Medical History Blood Transfusion Hx: Yes Neurological: NONE EENT: NONE Cardiovascular: cardiomyopathy, CHF, chronic venous insuff, hyperlipidemia, CARDIAC ARREST S/P LWC PACER Respiratory: COPD, SLEEP APNEA O2 3.5L NC @ BASELINE Gastrointestinal: constipation, peptic ulcer disease, EGD 08/10 showed numerous gastric and duodenal ulcers Hepatic: NONE Renal: benign prost hyperplasia, TEMPORORY DIALYSIS Musculoskeletal: gout, rheumatoid arthritis Psychiatric: NONE Endocrine: diabetes Blood Disorders: anemia Cancer(s): NONE CLIPPER AND TURNER/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 Other Who Do You Live With? self Services at Home: Oxygen Primary Language: German Smoking Status: Never Smoked Functional Ability ADLs Independent: dressing, eating, toileting, bathing. Ambulation: independent IADLs Independent: shopping, housework, finances, food prep, telephone, transportation , medication admin. Exam & Diagnostic Data Vital Signs and I&O Vital Signs Date Time Temp Pulse Resp B/P B/P Pulse O2 O2 Flow FiO2 Mean Ox Delivery Rate 02/08 1200 95 Nasal 4.0L Cannula 02/08 0928 83 114/78 02/08 0856 97 Nasal 4.0L Cannula 02/08 0800 92 Nasal 4.0L Cannula 02/08 0800 97.4 94 25 100/78 93 Nasal 4.0L Cannula 02/08 0400 98 Nasal 4.0L Cannula 02/08 0000 97 Nasal 4.0L Cannula 02/08 0000 97.4 76 24 90/60 97 Nasal 4.0L Cannula 02/07 2103 98.2 92 30 95/77 02/07 210 98.2 93 30 95/77 02/08 2000 96 Nasal 4.0L Cannula 02/07 191 96 Nasal 4.0L Cannula 02/07 1600 95 Nasal 4.0L Cannula 02/07 1600 96.8 100 30 90/60 95 Nasal 4.0L Cannula Intake & Output 02/08 1600 02/08 0800 02/08 0000 02/07 1600 02/07 0800 02/07 0000 Intake Total 581 1301.6 1440 563 0784 Output Total 850 203 985 3755 2850 Balance -269 551.6 224 -775 -1645 Intake, IV 461 461.6 544 555 545 Intake, Oral 120 840 600 100 660 Number 0 Bowel Movements Output, Urine 850 982 642 4118 2850 Physical Exam: General/Constitutional: Oriented to person, place, and time. In no distress. Well-developed, well-nourished. Obese, not in distress Vital signs: see above. Head: Normocephalic/atraumatic Eyes: No xanthelasma or scleral icterus. Conjunctivae normal. Mouth: Moist mucous membranes without pallor or cyanosis Neck: Supple. No jugular venous distention, carotid bruits, thyromegaly Thorax/lungs/pulmonary: No chest deformity. Effort normal without respiratory distress. Lungs clear without wheezes or rales. Heart/Cardiovascular: Normal S1, S2 without murmurs, S3, or S4. At times irregularly irregular. Abdomen/GI: No distention, tenderness or masses Extremities: No cyanosis, clubbing, positive for edema Neuro: Alert and oriented to person, place, time. Grossly non-focal. Skin: Warm and dry. No diaphoresis. No major rashes. No erythema. No pallor or cyanosis. Psychiatric: Normal mood and affect, behavior appears normal. Assessment/Plan Assessment/Plan Interrogating Amadou's device we were able to determine that all his arrhythmias seen are due to conducted atrial fibrillation and not ventricular tachycardia. It will be difficult to manage A. fib in his case. At this point I do think we should continue amiodarone. I would switch him from IV to oral either 400 twice a day or 3 times a day. I would recommend cardioversion either with or without a transesophageal echo. He was only in A. fib for a fairly short period of time before presenting to the hospital. Hopefully we can reduce his amiodarone significantly going forward. He should not be discharged on more than 400 mg per day. I would also note that there are several drug interactions and need to be looked at. Colchicine interacts significantly with amiodarone and I would not treat him with any more than 0.6 mg once a day for his gout. In addition simvastatin also interacts significantly with amiodarone and I would change this to pravastatin. I would check a BNP indeterminate whether or not he needs more diuresis. Entresto could be considered but they may be cost considerations. I am also wondering whether Aldactone to be using his case to keep his potassium up and aid with diuresis. We made several reprogramming changes his device including increasing his rates and 5 beats minute to allow more biventricular pacing and also placed on conducted A. fib response. He could be switched over to oral anticoagulation likely with apixaban. Again I think he will do better ultimately with a cardioversion before leaving the hospital. If necessary he would be an A. fib ablation candidate but this would be very aggressive and long and difficult procedure especially in this man with his EF and body size. Next Thus overall I'm recommending reducing his colchicine changing him over to pravastatin, changing him to oral amiodarone, considering Entresto and aldactone, and proceeding with a cardioversion and the above-noted reprogramming changes. I would happy to see him in follow-up and we'll arrange for an office follow-up in the [place] office. We need to check if he has ever had a cardiac MRI and if not this should be pursued, even with his AICD in place. Copies To: Fartun HARPER,Amadou Byers; Julia George MD; Chris Casiano MD Consult Acknowledgment - Thank you for your consult request.
--- NOTE | 2018-02-08 14:35 | CT SCAN REPORT ---
EXAMINATION: CT CHEST WITHOUT CONTRAST CLINICAL INFORMATION: Evaluate for pneumonia. Shortness of breath, cough, wheeze. COMPARISON: Multiple prior exams including chest x-ray 02/07/2018. Prior chest CT May 2017. TECHNIQUE: Multidetector volumetric CT imaging of the chest was done. Axial MIP volume rendering provided. Sagittal and coronal reformatted images were obtained. DLP: 1083 mGy-cm FINDINGS: LUNGS: There is complete collapse of the right middle lobe new compared to the prior CT. Etiology for collapse indeterminate. I do not see a definite mass. There is some minimal pleural-based opacity in the right upper lobe anteriorly most compatible with discoid atelectasis and/or scarring. There has been improvement in the nodular opacities in the posterior aspect of the right upper lobe. There is at least one nodular opacity measuring approximately 5 mm on the sagittal image 116 series 602. MEDIASTINUM: No significant lymphadenopathy. Arterial calcification including coronary calcifications remain. Pacer wires remain in place and intact. Heart size remains unchanged slightly enlarged. PLEURA: There is no pleural effusion. No pleural mass or thickening. AXILLA: No lymphadenopathy. UPPER ABDOMEN: Prominent arterial calcification of splenic artery and aorta. OSSEOUS STRUCTURES: Spondylosis of the dorsal spine. IMPRESSION: Complete collapse of the right middle lobe of uncertain etiology. Endobronchial lesion\E\malignancy should be excluded. Decreased nodular opacities in the posterior aspect of the right upper lobe could reflect a residual or recurrent inflammatory process/pneumonia. Neoplasm unlikely given its decrease in size and extent.
[2018-02-08 16:00] VITALS: BP 122/78
--- NOTE | 2018-02-08 19:01 | Transfer of Care Summary ---
Hospital Course Course Hospital Course: 62 year old male with a past medical history significant for HFrEF (25-30%) nonischemic cardiomyopathy s/p dual chamber PPM/AICD, 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 Patient was admitted to ICU for atrial fibrillation with rapid ventricular rate requiring amiodarone drip and for episodes of sustained V. tach. Patient was admitted from January 08 to January 15 for right lower extremity cellulitis, heart failure exacerbation and acute kidney injury. After the discharge he became sick again within 3 days and was admitted at [facility] for a few days, then stepdown unit and discharged approximately a week back. He received a call from pacemaker people that his heart rate was running really high and was suggested to go to ER. He was significantly tachycardic at arrival and it was wide complex tachycardia, ECG appears A. fib with aberrancy causing wide complex. When patient is asked if he has a previous history of A. fib he says yes, none of the previous records mention that he has A. fib, he is currently not anticoagulated if he had history of A. fib thus it's unclear whether this is new onset or old but he appears in RVR with aberrancy causing wide complexes. ECG findings were discussed with fishing tackle repairer who suggested to start amiodarone drip. Given his high stroke risk he was started on heparin drip. ------ In ED patient was found to be in A. fib with RVR. Was given one-time dose of 5 mg Lopressor and one-time dose of cardiazem and was starting on IV amiodarone drip. Vitals on admission temperature 98.3, heart rate 120-->112, 95% on room air, blood pressure 140/67 > 122/78. Labs CBC unremarkable, BEP significant for bicarbonate of 38 and BUN 31, creatinine of 1.2 normal LFTs, d-dimer 315, troponin 0.09, proBNP 6490 Chest x-ray shows cardiomegaly and interstitial edema EKG shows A. fib with aberrancy, wide-complex tachycardia, heart rate of 153, QTC 524 --------- Atrial fibrillation with rapid ventricular response/ WIDE COMPLEXES: Patient presented with worsening shortness of breath, pleuritic chest pain at rest. Received call from pacemaker people that his heart rate was running really high and was suggested to go to the ER. On arrival he was found to have tachycardia, EKG appears A. fib with aberrancy causing wide-complex, tachycardic 130-150. He was hemodynamically stable. When patient is asked if he has a previous history of A. fib he says yes, none of the previous records mention that he has A. fib, he is currently not anticoagulated if he had history of A. fib thus it's unclear whether this is new onset or old but he appears in RVR with aberrancy causing wide complexes. ECG findings were discussed with fishing tackle repairer who suggested to start amiodarone drip. Given his high stroke risk/ chadsvasc score he was started on heparin drip. Patient was discontinued on amiodarone drip once his heart rate was below 100. He was started on oral amiodarone 400 twice daily on 02/08/2018 with plan to continue 400 twice daily for the next 1 week and then 200 mg daily. He was continued on IV heparin drip given his high stroke risk. Serial troponin and EKG negative for acute coronary syndrome. Follow-up echocardiogram showed abnormal left ventricular ejection fraction estimated at 25-30%. Sales And Marketing Executive Dr. Fenton was consulted- underwent cardioversion on 02/12 with transesophageal echocardiogram. Remained in sinus rhythm. Recurrent wide complex tach with ICD in place Patient has 2 episodes of ventricular tachycardia??? with an ICD in place without shock therapy. One episode was noted in ER at the time of admission and one more episode of sustained V. tach with 28 beat run on 02/06/2018. Patient was asymptomatic at that time. He has ICD in place. No shock was delivered. The device was interrogated by the [employer] ict sales representative and found to be functioning properly. It appears as though the patient didn't sustain ventricular tachycardia long enough during any one of these episodes to trigger The device algorhythm for antitachycardia pacing or shock therapy. November 2015- He presented with severe biventricular heart failure at that time. An echocardiogram done on 12/12/2015 showed a severe reduction in LV function with an EF as low as 20%. There was concentric LVH, a dilated right ventricle, a dilated IVC, and a broad left bundle branch block. he was an excellent candidate for cardiac resynchronization therapy given his very broad left bundle branch block. Sales And Marketing Executive Dr. Fenton was consulted. AICD device was interrogated, able to determine that all his arrhythmias seen are due to conduction of atrial fibrillation not V. tach. several reprogramming changes were made to his device including increasing his rates and 5 beats minute to allow more biventricular pacing and also placed on conducted A. fib response. Acute on chronic heart failure with reduced ejection fraction Exertional dyspnea most Likely from HFrEF exacerbation precipitated by atrial fibrillation w/ RVR and pulmonary congestion. Patient chest x-ray showed central pulmonary vascular congestion and early interstitial edema. ProBNP elevated 6490. He usually takes Lasix 80 in the morning and 40 in the evening. He was given IV Lasix 60 twice daily. Daily ins and outs, weights were monitored. Serial troponin and EKG were done, ruled out acute coronary syndrome. Machine Tech on board. Repeat echocardiogram showed ejection fraction 25%. He was continued on lisinopril, atorvastatin. Sales And Marketing Executive Dr. Willoughby on board, recommended considering entresto and Aldactone for his nonischemic cardiomyopathy and heart failure. COPD: On 3.5 L nasal cannula/chronic hypercapnic respiratory failure/acute hypoxic respiratory failure Acute on chronic hypoxic respiratory failure most likely from CHF exacerbation and rapid A. fib. TRC nebs was given and Continued supplemental oxygen. Continued advair, singulair, Nebulized albuterol and ipatropium Questionable pneumonia Patient continued to report shortness of breath, fevers, requiring high amounts of oxygen. CAT scan chest was done which showed Complete collapse of the right middle lobe of uncertain etiology. Endobronchial lesion\E\malignancy should be excluded.Decreased nodular opacities in the posterior aspect of the right upper lobe could reflect a residual or recurrent inflammatory process/pneumonia. Neoplasm unlikely given its decrease in size and extent. Chest physiotherapy, Mucomyst was ordered. Follow-up chest x-rays were ordered with no significant change. Needs op CT F/U in 2 months JORY: CPAP-although patient is noncompliant DM: Held oral hypoglycemics Diabetic diet Accuchecks TIDAC/HS Novolog sliding scale insulin Continued gabapentin for neuropathy Gout: Continued colchicine 0.6 mg. Avoid giving more than 0.6 mg given drug interaction with amiodarone Depression continued Lexapro 5 mg daily Hyperlipidemia Continued Lipitor 10 daily. Avoid simvastatin given drug interaction with amiodarone ------- Diabetic diet with 2gram sodium restriction DVT ppx-on IV heparin gtt DNI Housekeeping ICU #1 Central line- none #2 Arterial line- none #3 Villanueva catheter- none #4 Rectal tube - none #5 NG tube - none #6 IV/peripheral line- yes #7 IV drips-heparin. discontinued amiodarone #8 Vent settings: none #9 pressors: none CPAP at nighttime Assessment/Plan: .
[2018-02-08 19:25] LABS: PTT 60 SEC (25-37)
[2018-02-09] VITALS: BP 100/60
[2018-02-09 02:44] LABS: PTT 72 SEC (25-37)
[2018-02-09 04:53] LABS: ABSOLUTE BASOPHIL COUNT 0 /CUMM (0.0-0.2); ABSOLUTE EOSINOPHIL COUNT 0.1 /CUMM (0.0-0.7); ABSOLUTE GRANULOCYTE CT 3.7 /CUMM (1.4-6.5); ABSOLUTE LYMPH COUNT 2.4 /CUMM (1.2-3.4); ABSOLUTE MONOCYTE COUNT 0.6 /CUMM (0.10-0.60); BASOPHIL % 0.4 % (0.0-2.0); EOSINOPHIL % 1.6 % (0-5); GRANULOCYTE % 54.5 % (42.2-75.2); HEMATOCRIT 35.9 % (42-52); MEAN CORPUSCULAR HGB 27.4 PG (27.0-31.0); MEAN CORPUSCULAR HGB CONC 31.9 G/DL (33.0-37.0); MEAN CORPUSCULAR VOLUME 85.8 FL (80.0-94.0); MEAN PLATELET VOLUME 7.7 FL (7.4-10.4); PLATELET COUNT 116 /CUMM (130-400); RBC DISTRIBUTION WIDTH 14.9 % (11.5-14.5); RED BLOOD CELL CT 4.18 /CUMM (4.70-6.10); WHITE BLOOD CELL COUNT 6.8 /CUMM (4.8-10.8)
--- NOTE | 2018-02-09 07:38 | PN- Resident CRCU ---
Sam Aceves 02/09/18 0738: Subjective HPI/CRCU Issues: + A. fib with RVR with aberrancy causing wide complex tachycardia + Acute on chronic heart failure with reduced ejection fraction + Ruled out acute coronary syndrome + Acute on chronic hypoxic respiratory failure, hypercapnia appears chronic + History of DM, JORY noncompliant with CPAP, PAD, COPD 3.5 L NC , CKD 24 Hour Events: Patient was seen and examined this morning. He is alert awake and oriented to time place and person. No acute events happened overnight. Patient still continues to report cough, short of breath,wheezes, chest congestion, however he improved after starting chest physiotherapy, Mucomyst Denies any chest pain, palpitations. He denies any nausea, vomiting, abdominal pain, change in bladder or bowel habits. Denies any fever, chills. EKG wide-complex tachycardia and atrial fibrillation, ventricular paced rhythm vitals- he is afebrile, heart rate 90, respiratory rate 18, blood pressure 100/ 50, saturating at 92 on 4 L oxygen supplementation. All his labs were normal. Troponin negative. Objective Vital Signs & I&O Last 8 Hrs of Vitals and I&O: Vital Signs Date Time Temp Pulse Resp B/P B/P Pulse O2 O2 Flow FiO2 Mean Ox Delivery Rate 02/09 1200 92 Nasal 4.0L Cannula 02/09 0912 4 Nasal 4.0L Cannula 02/09 0858 90 122/79 02/09 0857 97 122/79 02/09 0856 94 122/79 02/09 0800 97.0 106 24 120/70 92 Nasal 4.0L Cannula 02/09 0400 92 Nasal 4.0L Cannula 02/09 0000 95 Nasal 2.0L Cannula 02/09 0000 98.2 80 20 100/60 95 Nasal 2.0L Cannula 02/08 2132 88 18 130/80 02/08 2131 88 18 133/80 02/08 2031 92 Nasal 4.0L Cannula 02/08 2000 94 Nasal 4.0L Cannula 02/08 1600 94 Nasal 4.0L Cannula 02/08 1600 97.1 85 26 122/78 92 Nasal 4.0L Cannula 02/08 1412 79 100/60 Intake & Output 02/09 1600 02/09 0800 02/09 0000 Intake Total 303 1065 Output Total 700 2100 Balance -397 -1035 Intake, IV 203 345 Intake, Oral 100 720 Output, Urine 700 2100 Exam General Appearance: well developed/nourished Other Physical Findings: Neck Supple, No JVD Cardiovascular No Murmurs, irregularly irregular Lungs end inspiratory and expiratory wheezing/rhonchi, no audible crackles Abdomen Normal Bowel Sounds, Soft, No Tenderness, No Masses Extremities No Clubbing, No Cyanosis, Normal Pulses, chronic venous stasis changes, 2+ bilateral lower extremity pitting edema to knees Current Medications: Current Medications Sig/Keaton Start time Last Medication Dose Route Stop Time Status Admin Acetylcysteine 4 ML BID 02/08 2100 DC INH Acetylcysteine 2 ML BID 02/08 2015 AC 02/09 INH 0908 Albuterol Sulfate 3 ML TID 02/06 1407 AC 02/09 INH 0907 Albuterol Sulfate 2 PUF Q4-6 PRN PRN 02/06 0230 AC INH Amiodarone HCl 200 MG DAILY 02/15 0900 AC PO Amiodarone HCl 400 MG BID 02/08 1230 AC 02/09 PO 02/15 0000 0858 Atorvastatin Calcium 10 MG 1700 02/06 1700 AC 02/08 PO 1704 Carvedilol 25 MG BID 02/06 0900 AC 02/09 PO 0856 Colchicine 600 MCG DAILY 02/06 0900 AC 02/09 PO 0858 Escitalopram Oxalate 5 MG DAILY 02/06 0900 AC 02/09 PO 0858 Ferrous Sulfate 325 MG DAILY 02/06 0900 AC 02/09 PO 0858 Fluticasone 2 SPRAY DAILY 02/06 1000 AC 02/09 Propionate JOAQUIN 0858 Furosemide 60 MG 7:30 AM, & 4:30 PM 02/08 1630 AC 02/09 IV 0754 Gabapentin 400 MG TID 02/06 0900 AC 02/09 PO 0859 Guaifenesin 600 MG Q12 02/07 2100 AC 02/09 PO 0858 Heparin Sodium 25,000 UNIT Q24H 02/06 0230 AC 02/09 (Porcine) IV 0901 Sodium Chloride 500 ML Hydrocodone Bitart/ 1 TAB ONCE ONE 02/09 1130 DC 02/09 Acetaminophen PO 02/09 1131 1140 Hydrocodone Bitart/ 1 TAB ONCE ONE 02/08 1530 DC 02/08 Acetaminophen PO 02/08 1531 1556 Hydroxyzine HCl 100 MG BID 02/06 2100 AC 02/09 PO 0857 Insulin Aspart 0 TIDAC 02/06 0800 AC 02/09 SC 1141 Ipratropium [place] 2.5 ML TID 02/06 1407 AC 02/08 INH 2022 Lisinopril 10 MG DAILY 02/10 0900 AC PO Lisinopril 5 MG DAILY 02/09 0900 DC 02/09 PO 0857 Montelukast Sodium 10 MG 2100 02/06 2100 AC 02/08 PO 2130 Nystatin 1 IDANIA TID 02/06 1418 AC 02/09 TOP 0859 Sodium Chloride 2 SPRAY Q4P PRN 02/06 1545 AC 02/08 JOAQUIN 0929 Impression/Plan Impression/Problem List Impression: 62 year old male with a past medical history significant for HFrEF (25-30%) nonischemic cardiomyopathy s/p dual chamber PPM/AICD, 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 Patient was admitted to ICU for atrial fibrillation with rapid ventricular rate requiring amiodarone drip and wide complex tachycardia. Patient was admitted from January 08 to January 15 for right lower extremity cellulitis, heart failure exacerbation and acute kidney injury. After the discharge he became sick again within 3 days and was admitted at [facility] for a few days, then stepdown unit and discharged approximately a week back. He received a call from pacemaker people that his heart rate was running really high and was suggested to go to ER. He was significantly tachycardic at arrival and it was wide complex tachycardia, ECG appears A. fib with aberrancy causing wide complex. When patient is asked if he has a previous history of A. fib he says yes, none of the previous records mention that he has A. fib, he is currently not anticoagulated if he had history of A. fib thus it's unclear whether this is new onset or old but he appears in RVR with aberrancy causing wide complexes. ECG findings were discussed with chief radiology who suggested to start amiodarone drip. Given his high stroke risk he was started on heparin drip. ------ In ED patient was found to be in A. fib with RVR. Was given one-time dose of 5 mg Lopressor and one-time dose of cardiazem and was starting on IV amiodarone drip. Vitals on admission temperature 98.3, heart rate 120-->112, 95% on room air, blood pressure 140/67 > 122/78. Labs CBC unremarkable, BEP significant for bicarbonate of 38 and BUN 31, creatinine of 1.2 normal LFTs, d-dimer 315, troponin 0.09, proBNP 6490 Chest x-ray shows cardiomegaly and interstitial edema EKG shows A. fib with aberrancy, wide-complex tachycardia, heart rate of 153, QTC 524 --------- Atrial fibrillation with rapid ventricular response/ WIDE COMPLEXES: Patient presented with worsening shortness of breath, pleuritic chest pain at rest. Received call from pacemaker people that his heart rate was running really high and was suggested to go to the ER. On arrival he was found to have tachycardia, EKG appears A. fib with aberrancy causing wide-complex, tachycardic 130-150. He was hemodynamically stable. He has new onset afib with RVR with aberrancy causing wide complexes. ECG findings were discussed with chief radiology who suggested to start amiodarone drip. Given his high stroke risk/chadsvasc score he was started on heparin drip. * Started oral amiodarone 400 mg twice daily- day2 , discontinued amiodarone drip * Continue IV heparin drip Given his high stroke risk/chadsvasc score * Serial troponins negative * Follow-up echocardiogram showed abnormal left ventricular ejection fraction estimated at 25-30%. * Continue home medication carvedilol * Follow cardiology recommendations * Mail Rider consulted * Interrogation of ICD was done, changes were made * Continuous telemetry monitoring * Monitor vitals every shift * Closely monitor blood pressure * plans for cardioversion with transesophageal echocardiogram- 02/12 Recurrent wide complex tach with ICD in place Patient has 2 episodes of wide complex tachycardia with an ICD in place without shock therapy. One episode was noted in ER at the time of admission and one more episode with 28 beat run on 02/06/2018. Patient was asymptomatic at that time. He has ICD in place. No shock was delivered. The device was interrogated by the [employer] inbound call center representative and found to be functioning properly. It appears as though the patient didn't sustain ventricular tachycardia long enough during any one of these episodes to trigger The device algorhythm for antitachycardia pacing or shock therapy. November 2015- He presented with severe biventricular heart failure at that time. An echocardiogram done on 12/12/2015 showed a severe reduction in LV function with an EF as low as 20%. There was concentric LVH, a dilated right ventricle, a dilated IVC, and a broad left bundle branch block. he was an excellent candidate for cardiac resynchronization therapy given his very broad left bundle branch block. * Mail Rider Dr. Fenton was consulted. * AICD device was interrogated, able to determine that all his arrhythmias seen are due to conduction of atrial fibrillation, not from V. tach * several reprogramming changes were made to his device including increasing his rates and 5 beats minute to allow more biventricular pacing and also placed on conducted A. fib response. Acute on chronic heart failure with reduced ejection fraction Exertional dyspnea most Likely from HFrEF exacerbation precipitated by atrial fibrillation w/ RVR and pulmonary congestion. Patient chest x-ray showed central pulmonary vascular congestion and early interstitial edema. ProBNP elevated 6490. * Patient usually takes Lasix 80 in the morning and 40 in the evening * We will give Lasix IV 60 twice a day daily * Daily weights * Ins and outs * Check serial troponin and EKG, ruled out ACS * Mix[employer] on board * Echo Showed ejection fraction 25% * Continue Coreg 25 twice daily * Continue lisinopril - changed from 5 to 10 mg * Continue atorvastatin * Monitor renal function on intravenous diurectics * Avoid NSAIDs and other nephrotoxins * Maintain potassium above 4 and magnesium about 2 COPD: On 3.5 L nasal cannula/chronic hypercapnic respiratory failure/acute hypoxic respiratory failure Acute on chronic hypoxic respiratory failure most likely from CHF exacerbation and rapid A. fib. CT showed Complete collapse of the right middle lobe of uncertain etiology.Endobronchial lesion\E\malignancy should be excluded. Decreased nodular opacities in the posterior aspect of the right upper lobe could reflect a residual or recurrent inflammatory process/pneumonia. * TRC evaluation * Continue supplemental oxygen * Continue advair, singulair * Nebulized albuterol and ipatropium * chest physiotherapy/Acupella therapy * Mucomyst * Patient needs outpatient CAT scan chest after 2 months JORY: * CPAP-although patient is noncompliant * Check ABG for increased somnolence prn DM: * Hold oral hypoglycemics * Diabetic diet * Accuchecks TIDAC/HS * Novolog sliding scale insulin * Continue gabapentin for neuropathy Gout: * Continue colchicine 0.6 mg. * Avoid giving more than 0.6 mg given drug interaction with amiodarone Depression * continue Lexapro 5 mg daily Hyperlipidemia * Continue Lipitor 10 daily. * Avoid simvastatin given drug interaction with amiodarone stage 2 CKD * Chronic and stable * cr 1.2 * GFR >60 ------- Diabetic diet with 2gram sodium restriction DVT ppx-on IV heparin gtt DNI Housekeeping ICU #1 Central line- none #2 Arterial line- none #3 Villanueva catheter- none #4 Rectal tube - none #5 NG tube - none #6 IV/peripheral line- yes #7 IV drips-heparin and amiodarone #8 Vent settings: none #9 pressors: none CPAP at nighttime Problem List: 1. Afib 2. Wide-complex tachycardia Pain Ratin Tomorrow's Labs & Rationales: cbc icu bundle Plan DVT/Prophylaxis: mechanical, pharmacological Lucy HARPER,Blair 02/09/18 1352: Attending MD Review Statement Attending Sign Off Attending Cosign Statement: I have: examined this patient, [facility] data, personally reviewd images, discussd w/resident/PA/NAVIGATING OFFICER, discussed mgmt plan w/jesus, discussed mgmt plan w/CM, discussed mgmt plan w/pt, agreed w/resident/PA/NAVIGATING OFFICER, amended to note. Other Findings: Blair Hammond M.D. have examined this patient, reviewed available EMR data, personally reviewed images, discussed with resident/PA/NAVIGATING OFFICER, discussed management plan with housestaff and nursing staff, discussed managment plan all of healthcare providers, discussed management plan with patient and/or family, agreed with resident/PA/NAVIGATING OFFICER. The past history and parts of the chart have been autopopulated. Impression 62 year old man * acute on chronic heart failure - non-ischemic * new on set a.fib * wide complex tachycardia * RML atelectasis Plan -f/u cardilogy -NPO PMN for ANUPAMA/cardioversion -iv heparin -iv lasix -monitor in icu until okay for tele per cardiology -IST, mucomyst, chest pt - will require outpatient imaging and if RML issue persists may require further workup including imaging/bronchoscopy etc. TTS 35 min DVT prophylaxis at all times DVT prophylaxis at all times
[2018-02-09 08:00] VITALS: BP 120/70
--- NOTE | 2018-02-09 08:28 | RADIOLOGY REPORT ---
EXAMINATION: XR PORTABLE CHEST CLINICAL INFORMATION: Shortness of breath and wheezing. Presumptive diagnosis of pneumonia. COMPARISON: CT scan of the chest dated 02/08/2018. Chest x-ray dated 02/07/2018 and older exams. TECHNIQUE: Portable AP semierect view of the chest was obtained. FINDINGS: Multiple EKG leads overlie the chest. There are pacer leads in the right atrium and coronary sinus and a AICD lead in the right ventricle, all suboptimally identified. The cardiomediastinal silhouette is enlarged, unchanged. Low lung volumes are seen with central vascular congestion and increased perihilar reticular opacities, appearing more confluent in the medial right lung base, corresponding to the right middle lobe collapse seen on CT scan. The small nodular densities seen on CT scan in the right upper lobe are not appreciated on this portable film. No definite effusion or pneumothorax is seen. Bony structures are unremarkable. IMPRESSION: 1. Unchanged appearance of the chest with collapse of the right middle lobe, scattered areas of bibasilar subsegmental atelectasis and central vascular congestion and perhaps mild interstitial edema again seen. 2. Cardiomegaly is noted, corresponding to the CT scan findings of enlarged left ventricle and left atrium.
--- NOTE | 2018-02-09 09:48 | PN- Cardiology ---
Subjective Subjective: Shortness of breath is improving. No chest pain. No palpitations. No diaphoresis. He remains in atrial fibrillation with rate under control. Appreciate EP consult from Dr. Willoughby. Objective Vital Signs and I&Os Vital Signs Date Time Temp Pulse Resp B/P B/P Pulse O2 O2 Flow FiO2 Mean Ox Delivery Rate 02/09 0912 4 Nasal 4.0L Cannula 02/09 0858 90 122/79 02/09 0857 97 122/79 02/09 0856 94 122/79 02/09 0400 92 Nasal 4.0L Cannula 02/09 0000 95 Nasal 2.0L Cannula 02/09 0000 98.2 80 20 100/60 95 Nasal 2.0L Cannula 02/08 2132 88 18 130/80 02/08 2131 88 18 133/80 02/08 2031 92 Nasal 4.0L Cannula 02/08 2000 94 Nasal 4.0L Cannula 02/08 1600 94 Nasal 4.0L Cannula 02/08 1600 97.1 85 26 122/78 92 Nasal 4.0L Cannula 02/08 1412 79 100/60 02/08 1200 95 Nasal 4.0L Cannula Intake & Output 02/09 1600 02/09 0800 02/09 0000 02/08 1600 02/08 0800 02/08 0000 Intake Total 303 1065 0771 530 8465.6 Output Total 700 2100 1375 850 750 Balance -397 -1035 -330 -269 551.6 Intake, IV 203 345 445 461 461.6 Intake, Oral 100 720 600 120 840 Number 0 Bowel Movements Output, Urine 700 2100 1375 850 750 Physical Exam: Gen: The patient is in no acute distress HEENT: Normal nose, ears, and oropharynx. Pupils equal bilaterally. Conjunctiva normal. Neck: Supple with no JVD, no masses, and no thyromegaly Lungs: Bilateral rhonchi with normal respiratory effort Heart: Irregularly irregular, S1, S2, 2/6 systolic murmur. 2+ peripheral edema, 2+ pulses in the lower extremities bilaterally Abdomen: Soft, nontender, no masses. No hepatomegaly. No splenomegaly Extremities: No clubbing or cyanosis. Normal muscle strength in the upper and lower extremities Skin: Normal skin turgor with no skin ulcers or lesions noted. Current Medications: Current Medications Sig/Keaton Start time Last Medication Dose Route Stop Time Status Admin Acetylcysteine 4 ML BID 04/16 2100 DC INH Acetylcysteine 2 ML BID 02/08 2015 AC 02/09 INH 0908 Albuterol Sulfate 3 ML TID 02/06 1407 AC 02/09 INH 0907 Albuterol Sulfate 2 PUF Q4-6 PRN PRN 02/06 0230 AC INH Amiodarone HCl 200 MG DAILY 02/15 0900 AC PO Amiodarone HCl 400 MG BID 02/08 1230 AC 02/09 PO 02/15 0000 0858 Amiodarone HCl 900 MG Q15H 02/07 1800 DC 02/07 Dextrose/Water 500 ML IV 2102 Atorvastatin Calcium 10 MG 1700 02/06 1700 AC 02/08 PO 1704 Carvedilol 25 MG BID 02/06 0900 AC 02/09 PO 0856 Colchicine 600 MCG DAILY 02/06 0900 AC 02/09 PO 0858 Escitalopram Oxalate 5 MG DAILY 02/06 0900 AC 02/09 PO 0858 Ferrous Sulfate 325 MG DAILY 02/06 0900 AC 02/09 PO 0858 Fluticasone 2 SPRAY DAILY 02/06 1000 AC 02/09 Propionate JOAQUIN 0858 Furosemide 60 MG 7:30 AM, & 4:30 PM 02/08 1630 AC 02/09 IV 0754 Furosemide 40 MG 7:30 AM, & 4:30 PM 02/06 1630 DC 02/08 IV 0756 Gabapentin 400 MG TID 02/06 0900 AC 02/09 PO 0859 Guaifenesin 600 MG Q12 02/07 2100 AC 02/09 PO 0858 Heparin Sodium 25,000 UNIT Q24H 02/06 0230 AC 02/09 (Porcine) IV 0901 Sodium Chloride 500 ML Hydrocodone Bitart/ 1 TAB ONCE ONE 02/08 1530 DC 02/08 Acetaminophen PO 02/08 1531 1556 Hydroxyzine HCl 100 MG BID 02/06 2100 AC 02/09 PO 0857 Insulin Aspart 0 TIDAC 02/06 0800 AC 02/08 SC 1708 Ipratropium [place] 2.5 ML TID 02/06 1407 AC 02/08 INH 2022 Lisinopril 5 MG DAILY 02/09 0900 AC 02/09 PO 0857 Montelukast Sodium 10 MG 2100 02/06 2100 AC 02/08 PO 2130 Nystatin 1 IDANIA TID 02/06 1418 AC 02/09 TOP 0859 Sodium Chloride 2 SPRAY Q4P PRN 02/06 1545 AC 02/08 JOAQUIN 0929 Results Last 48 Hrs of Labs/Mics: Laboratory Tests 02/09/18 0500: Vmr-X-Qtdenorifsc Pept Cancelled 02/09/18 0415: Anion Gap 9, Estimated GFR > 60, BUN/Creatinine Ratio 25.8 H, Qel-E-Fnzfcxrobrg Pept 1680 H, CBC w Diff NO MAN DIFF REQ, RBC 4.18 L, MCV 85.8, MCH 27.4, MCHC 31.9 L, RDW 14.9 H, MPV 7.7, Gran % 54.5, Lymphocytes % 34.8, Monocytes % 8.7, Eosinophils % 1.6, Basophils % 0.4, Absolute Granulocytes 3.7, Absolute Lymphocytes 2.4, Absolute Monocytes 0.6, Absolute Eosinophils 0.1, Absolute Basophils 0 02/09/18 0200: APTT 72 H 02/08/18 1830: APTT 60 H 02/08/18 0615: Anion Gap 8, Estimated GFR > 60, Glucose 145 H, Calcium 8.9, Phosphorus 4.4, Magnesium 2.1, Total Bilirubin 0.7, AST 16 L, ALT 22, Albumin 3.5, APTT 65 H, CBC w Diff NO MAN DIFF REQ, RBC 4.37 L, MCV 86.3, MCH 26.9 L, MCHC 31.2 L, RDW 15.3 H, MPV 7.4, Gran % 48.5, Lymphocytes % 40.3, Monocytes % 8.7, Eosinophils % 2.2, Basophils % 0.3, Absolute Granulocytes 2.9, Absolute Lymphocytes 2.4, Absolute Monocytes 0.5, Absolute Eosinophils 0.1, Absolute Basophils 0 02/07/18 1850: APTT 62 H Assessment/Plan Assessment/Plan Assessment: 1. Acute on chronic HFrEF secondary to non ischemic cardiomyopathy. 2. AICD 3. Chronic venous insufficiency with LE edema and stasis changes 4. New onset atrial fibrillation, rate currently under control 5. Wide complex tachycardia, secondary to atrial fibrillation with aberrant conduction Plan: * Continue amiodarone * Continue IV heparin, with plan to change to Eliquis prior to discharge * Continue IV furosemide * Increase lisinopril to 10 mg daily with plan to consider changing to Entresto at some point * Monitor input and output * ANUPAMA/cardioversion prior to discharge, tomorrow if possible. NPO after midnight. Continue telemetry? Yes
[2018-02-09 15:05] LABS: PTT 75 SEC (25-37)
[2018-02-09 16:00] VITALS: BP 108/80
[2018-02-10] VITALS: BP 92/50
[2018-02-10 02:15] LABS: PTT 87 SEC (25-37)
[2018-02-10 06:51] LABS: ABSOLUTE BASOPHIL COUNT 0 /CUMM (0.0-0.2); ABSOLUTE EOSINOPHIL COUNT 0.1 /CUMM (0.0-0.7); ABSOLUTE GRANULOCYTE CT 4.5 /CUMM (1.4-6.5); ABSOLUTE LYMPH COUNT 2.3 /CUMM (1.2-3.4); ABSOLUTE MONOCYTE COUNT 0.6 /CUMM (0.10-0.60); BASOPHIL % 0.4 % (0.0-2.0); EOSINOPHIL % 1.5 % (0-5); GRANULOCYTE % 60.1 % (42.2-75.2); HEMATOCRIT 34.8 % (42-52); MEAN CORPUSCULAR HGB 27.4 PG (27.0-31.0); MEAN CORPUSCULAR HGB CONC 31.9 G/DL (33.0-37.0); MEAN CORPUSCULAR VOLUME 85.9 FL (80.0-94.0); MEAN PLATELET VOLUME 7.9 FL (7.4-10.4); PLATELET COUNT 141 /CUMM (130-400); RBC DISTRIBUTION WIDTH 15.1 % (11.5-14.5); RED BLOOD CELL CT 4.05 /CUMM (4.70-6.10); WHITE BLOOD CELL COUNT 7.5 /CUMM (4.8-10.8)
[2018-02-10 08:00] VITALS: BP 126/73
--- NOTE | 2018-02-10 08:29 | PN- Resident CRCU ---
Sam Aceves 02/10/18 0829: Subjective HPI/CRCU Issues: + A. fib with RVR with aberrancy causing wide complex tachycardia + Acute on chronic heart failure with reduced ejection fraction + Ruled out acute coronary syndrome + Acute on chronic hypoxic respiratory failure, hypercapnia appears chronic + History of DM, JORY noncompliant with CPAP, PAD, COPD 3.5 L NC , CKD 24 Hour Events: Patient was seen and examined this morning. He is alert awake and oriented to time place and person. No acute events happened overnight. Patient still continues to report cough, short of breath, wheezes, chest congestion, however he improved after starting chest physiotherapy, Mucomyst Denies any chest pain, palpitations. He denies any nausea, vomiting, abdominal pain, change in bladder or bowel habits. Denies any fever, chills. EKG wide-complex tachycardia and atrial fibrillation, ventricular paced rhythm vitals- he is afebrile, heart rate 80, respiratory rate 18, blood pressure 90/50 , saturating at 92 on 4 L oxygen supplementation. Troponin negative. Objective Vital Signs & I&O Last 8 Hrs of Vitals and I&O: Vital Signs Date Time Temp Pulse Resp B/P B/P Pulse O2 O2 Flow FiO2 Mean Ox Delivery Rate 02/10 1200 93 Nasal 4.0L Cannula 02/10 0839 95 Nasal 4.0L Cannula 02/10 0800 96 Nasal 4.0L Cannula 02/10 0800 97.0 75 21 126/73 96 Nasal 4.0L Cannula 02/10 0759 98 104/67 02/10 0757 85 104/67 Exam General Appearance: well developed/nourished, no apparent distress, alert, awake Other Physical Findings: Neck Supple, No JVD Cardiovascular No Murmurs, irregularly irregular Lungs end inspiratory and expiratory wheezing/rhonchi, no audible crackles Abdomen Normal Bowel Sounds, Soft, No Tenderness, No Masses Extremities No Clubbing, No Cyanosis, Normal Pulses, chronic venous stasis changes, 2+ bilateral lower extremity pitting edema to knees Current Medications: Current Medications Sig/Keaton Start time Last Medication Dose Route Stop Time Status Admin Acetylcysteine 2 ML BID 02/08 2015 AC 02/10 INH 0836 Albuterol Sulfate 3 ML TID 02/06 1407 AC 02/10 INH 0836 Albuterol Sulfate 2 PUF Q4-6 PRN PRN 02/06 0230 AC INH Amiodarone HCl 200 MG DAILY 02/15 0900 AC PO Amiodarone HCl 400 MG BID 02/08 1230 AC 02/10 PO 02/15 0000 0757 Ammonium Lactate 1 IDANIA BID 02/10 0900 AC 02/10 TOP 0950 Atorvastatin Calcium 10 MG 1700 02/06 1700 AC 02/09 PO 1614 Carvedilol 25 MG BID 02/06 0900 AC 02/10 PO 0950 Colchicine 600 MCG DAILY 02/06 0900 AC 02/10 PO 0759 Escitalopram Oxalate 5 MG DAILY 02/06 0900 AC 02/10 PO 0758 Ferrous Sulfate 325 MG DAILY 02/06 0900 AC 02/10 PO 0759 Fluticasone 2 SPRAY DAILY 02/06 1000 AC 02/10 Propionate JOAQUIN 0950 Furosemide 40 MG 7:30 AM, & 4:30 PM 02/11 1630 AC PO Furosemide 60 MG 7:30 AM, & 4:30 PM 02/08 1630 DC 02/10 IV 0757 Gabapentin 400 MG TID 02/06 0900 AC 02/10 PO 0757 Guaifenesin 600 MG Q12 02/07 2100 AC 02/10 PO 0759 Heparin Sodium 25,000 UNIT Q24H 02/10 0930 AC 02/10 (Porcine) IV 0950 Sodium Chloride 500 ML Heparin Sodium 25,000 UNIT Q24H 02/06 0230 DC 02/09 (Porcine) IV 2150 Sodium Chloride 500 ML Hydrocodone Bitart/ 1 TAB ONCE ONE 02/10 0815 DC 02/10 Acetaminophen PO 02/10 0816 0850 Hydroxyzine HCl 100 MG BID 02/06 2100 AC 02/10 PO 0759 Insulin Aspart 0 TIDAC 02/06 0800 AC 02/10 SC 1201 Ipratropium [place] 2.5 ML TID 02/06 1407 AC 02/09 INH 1958 Lisinopril 10 MG DAILY 02/10 0900 AC 02/10 PO 0759 Montelukast Sodium 10 MG 2100 02/06 2100 AC 02/09 PO 2151 Nystatin 1 IDANIA TID 02/06 1418 AC 02/10 TOP 0951 Sodium Chloride 2 SPRAY Q4P PRN 02/06 1545 AC 02/08 JOAQUIN 0929 Impression/Plan Impression/Problem List Impression: 62 year old male with a past medical history significant for HFrEF (25-30%) nonischemic cardiomyopathy s/p dual chamber PPM/AICD, 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 Patient was admitted to ICU for atrial fibrillation with rapid ventricular rate requiring amiodarone drip and wide complex tachycardia. Patient was admitted from January 08 to January 15 for right lower extremity cellulitis, heart failure exacerbation and acute kidney injury. After the discharge he became sick again within 3 days and was admitted at [facility] for a few days, then stepdown unit and discharged approximately a week back. He received a call from pacemaker people that his heart rate was running really high and was suggested to go to ER. He was significantly tachycardic at arrival and it was wide complex tachycardia, ECG appears A. fib with aberrancy causing wide complex. When patient is asked if he has a previous history of A. fib he says yes, none of the previous records mention that he has A. fib, he is currently not anticoagulated if he had history of A. fib thus it's unclear whether this is new onset or old but he appears in RVR with aberrancy causing wide complexes. ECG findings were discussed with professional benefits sales consultant who suggested to start amiodarone drip. Given his high stroke risk he was started on heparin drip. ------ In ED patient was found to be in A. fib with RVR. Was given one-time dose of 5 mg Lopressor and one-time dose of cardiazem and was starting on IV amiodarone drip. Vitals on admission temperature 98.3, heart rate 120-->112, 95% on room air, blood pressure 140/67 > 122/78. Labs CBC unremarkable, BEP significant for bicarbonate of 38 and BUN 31, creatinine of 1.2 normal LFTs, d-dimer 315, troponin 0.09, proBNP 6490 Chest x-ray shows cardiomegaly and interstitial edema EKG shows A. fib with aberrancy, wide-complex tachycardia, heart rate of 153, QTC 524 --------- Atrial fibrillation with rapid ventricular response/ WIDE COMPLEXES: Patient presented with worsening shortness of breath, pleuritic chest pain at rest. Received call from pacemaker people that his heart rate was running really high and was suggested to go to the ER. On arrival he was found to have tachycardia, EKG appears A. fib with aberrancy causing wide-complex, tachycardic 130-150. He was hemodynamically stable. He has new onset afib with RVR with aberrancy causing wide complexes. ECG findings were discussed with professional benefits sales consultant who suggested to start amiodarone drip. Given his high stroke risk/chadsvasc score he was started on heparin drip. * Started oral amiodarone 400 mg twice daily- day2 , discontinued amiodarone drip * Continue IV heparin drip Given his high stroke risk/chadsvasc score * Serial troponins negative * Follow-up echocardiogram showed abnormal left ventricular ejection fraction estimated at 25-30%. * Continue home medication carvedilol * Follow cardiology recommendations * Nib Finisher consulted * Interrogation of ICD was done, changes were made * Continuous telemetry monitoring * Monitor vitals every shift * Closely monitor blood pressure * plans for cardioversion with transesophageal echocardiogram- 02/12 Recurrent wide complex tach with ICD in place Patient has 2 episodes of wide complex tachycardia with an ICD in place without shock therapy. One episode was noted in ER at the time of admission and one more episode with 28 beat run on 02/06/2018. Patient was asymptomatic at that time. He has ICD in place. No shock was delivered. The device was interrogated by the [email or web address] development representative and found to be functioning properly. It appears as though the patient didn't sustain ventricular tachycardia long enough during any one of these episodes to trigger The device algorhythm for antitachycardia pacing or shock therapy. November 2015- He presented with severe biventricular heart failure at that time. An echocardiogram done on 12/12/2015 showed a severe reduction in LV function with an EF as low as 20%. There was concentric LVH, a dilated right ventricle, a dilated IVC, and a broad left bundle branch block. he was an excellent candidate for cardiac resynchronization therapy given his very broad left bundle branch block. * Nib Finisher Dr. Fenton was consulted. * AICD device was interrogated, able to determine that all his arrhythmias seen are due to conduction of atrial fibrillation, not from V. tach * several reprogramming changes were made to his device including increasing his rates and 5 beats minute to allow more biventricular pacing and also placed on conducted A. fib response. Acute on chronic heart failure with reduced ejection fraction Exertional dyspnea most Likely from HFrEF exacerbation precipitated by atrial fibrillation w/ RVR and pulmonary congestion. Patient chest x-ray showed central pulmonary vascular congestion and early interstitial edema. ProBNP elevated 6490. * Patient usually takes Lasix 80 in the morning and 40 in the evening. Received IV Lasix 60 twice a day so far every day * Lasix on hold today given worsening cratinine 1.4 * Daily weights * Ins and outs * Check serial troponin and EKG, ruled out ACS * Peeled Potato Inspector on board * Echo Showed ejection fraction 25% * Continue Coreg 25 twice daily * Continue lisinopril - changed from 5 to 10 mg * Continue atorvastatin * Monitor renal function on intravenous diurectics * Avoid NSAIDs and other nephrotoxins * Maintain potassium above 4 and magnesium about 2 COPD: On 3.5 L nasal cannula/chronic hypercapnic respiratory failure/acute hypoxic respiratory failure Acute on chronic hypoxic respiratory failure most likely from CHF exacerbation and rapid A. fib. CT showed Complete collapse of the right middle lobe of uncertain etiology.Endobronchial lesion\E\malignancy should be excluded. Decreased nodular opacities in the posterior aspect of the right upper lobe could reflect a residual or recurrent inflammatory process/pneumonia. * TRC evaluation * Continue supplemental oxygen * Continue advair, singulair * Nebulized albuterol and ipatropium * chest physiotherapy/Acupella therapy * Mucomyst * Patient needs outpatient CAT scan chest after 2 months JORY: * CPAP-although patient is noncompliant * Check ABG for increased somnolence prn DM: * Hold oral hypoglycemics * Diabetic diet * Accuchecks TIDAC/HS * Novolog sliding scale insulin * Continue gabapentin for neuropathy Gout: * Continue colchicine 0.6 mg. * Avoid giving more than 0.6 mg given drug interaction with amiodarone Depression * continue Lexapro 5 mg daily Hyperlipidemia * Continue Lipitor 10 daily. * Avoid simvastatin given drug interaction with amiodarone stage 2 CKD * Chronic and stable * cr 1.2 * GFR >60 ------- Diabetic diet with 2gram sodium restriction DVT ppx-on IV heparin gtt DNI Housekeeping ICU #1 Central line- none #2 Arterial line- none #3 Villanueva catheter- none #4 Rectal tube - none #5 NG tube - none #6 IV/peripheral line- yes #7 IV drips-heparin and amiodarone #8 Vent settings: none #9 pressors: none CPAP at nighttime Problem List: 1. Afib 2. Wide-complex tachycardia Pain Ratin Tomorrow's Labs & Rationales: cbc icu bundle Plan DVT/Prophylaxis: mechanical, pharmacological Blair Ayala MD 02/10/18 1101: Attending MD Review Statement Attending Sign Off Attending Cosign Statement: I have: examined this patient, reviewed avalbl EMR data, personally reviewd images, discussd w/resident/PA/POLICE MAGISTRATE, discussed mgmt plan w/jesus, discussed mgmt plan w/CM, discussed mgmt plan w/pt, agreed w/resident/PA/POLICE MAGISTRATE, amended to note. Other Findings: I, Blair Ayala M.D. have examined this patient, reviewed available EMR data, personally reviewed images, discussed with resident/PA/POLICE MAGISTRATE, discussed management plan with housestaff and nursing staff, discussed managment plan all of healthcare providers, discussed management plan with patient and/or family, agreed with resident/PA/POLICE MAGISTRATE. The past history and parts of the chart have been autopopulated. Impression 62 year old man * acute on chronic heart failure - non-ischemic * new on set a.fib * wide complex tachycardia * RML atelectasis Plan -f/u cardiology -lasix to be held given mild bhavana and elevated bicarbonate -IST, mucomyst, chest pt - will require outpatient imaging and if RML issue persists may require further workup including imaging/bronchoscopy etc. -respiratory status is stable at this time -will determine necessity of ANUPAMA from Dr. Willoughby TTS 35 min DVT prophylaxis at all times
--- NOTE | 2018-02-10 12:34 | PN- Cardiology ---
Subjective Subjective: The patient is stable, sitting at bedside chair. Remains on 4 L nasal oxygen. Oxygen saturation stable. Remains in atrial fibrillation. No specific cardiac complaints. Objective Vital Signs and I&Os Vital Signs Date Time Temp Pulse Resp B/P B/P Pulse O2 O2 Flow FiO2 Mean Ox Delivery Rate 02/10 1200 93 Nasal 4.0L Cannula 02/10 0839 95 Nasal 4.0L Cannula 02/10 0800 96 Nasal 4.0L Cannula 02/10 0800 97.0 75 21 126/73 96 Nasal 4.0L Cannula 02/10 0759 98 104/67 02/10 0757 85 104/67 02/10 0400 97 Nasal 4.0L Cannula 02/10 0000 92 Nasal 4.0L Cannula 02/10 0000 97.3 75 18 92/50 92 Nasal 4.0L Cannula 02/09 2151 97.3 98 21 131/84 02/09 2151 97.3 98 21 131/84 02/10 2016 95 Nasal 4.0L Cannula 02/10 2000 93 Nasal 4.0L Cannula 02/09 1600 96 Nasal 4.0L Cannula 02/09 1600 97.3 94 27 108/80 96 Nasal 4.0L Cannula Intake & Output 02/10 1600 02/10 0800 02/10 0000 02/09 1600 02/09 0800 02/09 0000 Intake Total 460 963.2 577 440 2151 Output Total 300 1850 482 719 6841 Balance 160 -886.8 740 -397 -1035 Intake, IV 360 363.2 390 203 345 Intake, Oral 100 600 500 100 720 Output, Urine 300 1850 262 160 5318 Physical Exam: General Appearance: well developed/nourished overweight, alert and oriented 3 Neck Supple, No JVD, carotids normal bilaterally Cardiovascular irregular S1, S2, 2/6 systolic murmur Lungs bilateral rhonchi and wheezing Abdomen Normal Bowel Sounds, Soft, No Tenderness, No Masses Extremities No Clubbing, No Cyanosis, Normal Pulses, chronic venous stasis changes, 2+ bilateral lower extremity pitting edema to knees Current Medications: Current Medications Sig/Keaton Start time Last Medication Dose Route Stop Time Status Admin Acetylcysteine 2 ML BID 02/08 2015 AC 02/10 INH 0836 Albuterol Sulfate 3 ML TID 02/06 1407 AC 02/10 INH 0836 Albuterol Sulfate 2 PUF Q4-6 PRN PRN 02/06 0230 AC INH Amiodarone HCl 200 MG DAILY 02/15 0900 AC PO Amiodarone HCl 400 MG BID 02/08 1230 AC 02/10 PO 02/15 0000 0757 Ammonium Lactate 1 IDANIA BID 02/10 0900 AC 02/10 TOP 0950 Atorvastatin Calcium 10 MG 1700 02/06 1700 AC 02/09 PO 1614 Carvedilol 25 MG BID 02/06 0900 AC 02/10 PO 0950 Colchicine 600 MCG DAILY 02/06 0900 AC 02/10 PO 0759 Escitalopram Oxalate 5 MG DAILY 02/06 0900 AC 02/10 PO 0758 Ferrous Sulfate 325 MG DAILY 02/06 0900 AC 02/10 PO 0759 Fluticasone 2 SPRAY DAILY 02/06 1000 AC 02/10 Propionate JOAQUIN 0950 Furosemide 40 MG 7:30 AM, & 4:30 PM 02/11 1630 AC PO Furosemide 60 MG 7:30 AM, & 4:30 PM 02/08 1630 DC 02/10 IV 0757 Gabapentin 400 MG TID 02/06 0900 AC 02/10 PO 0757 Guaifenesin 600 MG Q12 02/07 2100 AC 02/10 PO 0759 Heparin Sodium 25,000 UNIT Q24H 02/10 0930 AC 02/10 (Porcine) IV 0950 Sodium Chloride 500 ML Heparin Sodium 25,000 UNIT Q24H 02/06 0230 DC 02/09 (Porcine) IV 2150 Sodium Chloride 500 ML Hydrocodone Bitart/ 1 TAB ONCE ONE 02/10 0815 DC 02/10 Acetaminophen PO 02/10 0816 0850 Hydroxyzine HCl 100 MG BID 02/06 2100 AC 02/10 PO 0759 Insulin Aspart 0 TIDAC 02/06 0800 AC 02/10 SC 1201 Ipratropium [place] 2.5 ML TID 02/06 1407 AC 02/09 INH 1958 Lisinopril 10 MG DAILY 02/10 0900 AC 02/10 PO 0759 Montelukast Sodium 10 MG 2100 02/06 2100 AC 02/09 PO 2151 Nystatin 1 IDANIA TID 02/06 1418 AC 02/10 TOP 0951 Sodium Chloride 2 SPRAY Q4P PRN 02/06 1545 AC 02/08 JOAQUIN 0929 Results Last 48 Hrs of Labs/Mics: Laboratory Tests 02/10/18 0525: Anion Gap 8, Estimated GFR 52 L, Glucose 134 H, Calcium 9.2, Phosphorus 3.8, Magnesium 2.0, Total Bilirubin 1.0, AST 17, ALT 23, Albumin 3.6, CBC w Diff NO MAN DIFF REQ, RBC 4.05 L, MCV 85.9, MCH 27.4, MCHC 31.9 L, RDW 15.1 H, MPV 7.9, Gran % 60.1, Lymphocytes % 30.1, Monocytes % 7.9, Eosinophils % 1.5, Basophils % 0.4, Absolute Granulocytes 4.5, Absolute Lymphocytes 2.3, Absolute Monocytes 0.6, Absolute Eosinophils 0.1, Absolute Basophils 0 02/10/18 0130: APTT 87 H 02/09/18 1400: APTT 75 H 02/09/18 0500: Nim-K-Ccxzoicmjbm Pept Cancelled 02/09/18 0415: Anion Gap 9, Estimated GFR > 60, BUN/Creatinine Ratio 25.8 H, Bnn-H-Sdqgxlcakll Pept 1680 H, CBC w Diff NO MAN DIFF REQ, RBC 4.18 L, MCV 85.8, MCH 27.4, MCHC 31.9 L, RDW 14.9 H, MPV 7.7, Gran % 54.5, Lymphocytes % 34.8, Monocytes % 8.7, Eosinophils % 1.6, Basophils % 0.4, Absolute Granulocytes 3.7, Absolute Lymphocytes 2.4, Absolute Monocytes 0.6, Absolute Eosinophils 0.1, Absolute Basophils 0 02/09/18 0200: APTT 72 H 02/08/18 1830: APTT 60 H Assessment/Plan Assessment/Plan Assessment: 1. Acute on chronic HFrEF secondary to non ischemic cardiomyopathy. 2. AICD 3. Chronic venous insufficiency with LE edema and stasis changes 4. New onset atrial fibrillation, rate currently under control 5. Wide complex tachycardia, secondary to atrial fibrillation with aberrant conduction Plan: * Continue amiodarone * Continue IV heparin, with plan to change to Eliquis prior to discharge * Continue IV furosemide * Increase lisinopril to 10 mg daily with plan to consider changing to Entresto at some point, continue to monitor for now in view of borderline blood pressure * Monitor input and output * ANUPAMA/cardioversion prior to discharge. If respiratory status remains improving , we will tentatively plan this for Thursday. Please keep the patient nothing by mouth after midnight on . Continue telemetry? Yes
[2018-02-10 14:18] LABS: PTT 54 SEC (25-37)
[2018-02-10 16:00] VITALS: BP 110/80
--- NOTE | 2018-02-10 19:31 | Event Note ---
Event Note Event Note: Discussed with patient about reviewing his recent [facility] discharge summary and imaging studies done at [facility] when he was admitted during first week of January. Patient agreed to our plan
[2018-02-10 21:43] LABS: PTT 77 SEC (25-37)
[2018-02-11] VITALS: BP 90/50
[2018-02-11 04:22] LABS: ABSOLUTE BASOPHIL COUNT 0 /CUMM (0.0-0.2); ABSOLUTE EOSINOPHIL COUNT 0.2 /CUMM (0.0-0.7); ABSOLUTE GRANULOCYTE CT 3.5 /CUMM (1.4-6.5); ABSOLUTE LYMPH COUNT 2.5 /CUMM (1.2-3.4); ABSOLUTE MONOCYTE COUNT 0.6 /CUMM (0.10-0.60); BASOPHIL % 0.2 % (0.0-2.0); EOSINOPHIL % 3.3 % (0-5); GRANULOCYTE % 51.3 % (42.2-75.2); HEMATOCRIT 32.8 % (42-52); MEAN CORPUSCULAR HGB CONC 32.4 G/DL (33.0-37.0); MEAN CORPUSCULAR VOLUME 86.3 FL (80.0-94.0); MEAN PLATELET VOLUME 7.8 FL (7.4-10.4); PLATELET COUNT 137 /CUMM (130-400); RBC DISTRIBUTION WIDTH 14.8 % (11.5-14.5); WHITE BLOOD CELL COUNT 6.8 /CUMM (4.8-10.8)
--- NOTE | 2018-02-11 07:11 | PN- Resident CRCU ---
Sam Aceves 02/11/18 0711: Subjective HPI/CRCU Issues: + A. fib with RVR with aberrancy causing wide complex tachycardia + Acute on chronic heart failure with reduced ejection fraction + Ruled out acute coronary syndrome + Acute on chronic hypoxic respiratory failure, hypercapnia appears chronic + History of DM, JORY noncompliant with CPAP, PAD, COPD 3.5 L NC , CKD 24 Hour Events: Patient was seen and examined this morning. He is alert awake and oriented to time place and person. No acute events happened overnight. Patient still continues to report cough, short of breath, chest congestion, however he improved after starting chest physiotherapy, Mucomyst. Denies any chest pain, palpitations. He denies any nausea, vomiting, abdominal pain, change in bladder or bowel habits. Denies any fever, chills. EKG wide-complex tachycardia and atrial fibrillation, ventricular paced rhythm vitals- he is afebrile, heart rate 70, respiratory rate 18, blood pressure 90/50 , saturating at 92 on 4 L oxygen supplementation. Troponin negative. Objective Vital Signs & I&O Last 8 Hrs of Vitals and I&O: Vital Signs Date Time Temp Pulse Resp B/P B/P Pulse O2 O2 Flow FiO2 Mean Ox Delivery Rate 02/11 1009 83 110/62 02/11 0841 95 Nasal 4.0L Cannula 02/11 0823 111 98/60 02/11 0800 94 Nasal 4.0L Cannula 02/11 0800 97.4 82 18 98/60 94 Nasal 4.0L Cannula 02/11 0400 96 Nasal 4.0L Cannula 02/11 0000 94 Nasal 2.0L Cannula 02/11 0000 96.6 75 20 90/50 93 Nasal 4.0L Cannula 02/10 2128 98 20 115/63 02/108 98 20 115/63 02/10 2000 92 Nasal 4.0L Cannula 02/10 1840 98 Nasal 4.0L Cannula 02/10 1600 95 Nasal 4.0L Cannula 02/10 1600 97.2 79 20 110/80 97 Nasal 4.0L Cannula Intake & Output 02/11 1600 02/11 0800 02/11 0000 Intake Total 516 2226 Output Total 300 1881 Balance 216 345 Intake, IV 416 786 Intake, Oral 100 1440 Number 1 Bowel Movements Output, Urine 300 1881 Exam General Appearance: well developed/nourished, no apparent distress, alert, awake Other Physical Findings: Neck Supple, No JVD Cardiovascular No Murmurs, irregularly irregular Lungs end inspiratory and expiratory wheezing/rhonchi, no audible crackles Abdomen Normal Bowel Sounds, Soft, No Tenderness, No Masses Extremities No Clubbing, No Cyanosis, Normal Pulses, chronic venous stasis changes, 2+ bilateral lower extremity pitting edema to knees Current Medications: Current Medications Sig/Keaton Start time Last Medication Dose Route Stop Time Status Admin Acetaminophen 650 MG ONCE ONE 02/11 0145 DC 02/11 PO 02/11 0146 0148 Acetylcysteine 2 ML BID 02/08 2015 AC 02/11 INH 02/11 2100 0838 Albuterol Sulfate 3 ML TID 02/06 1407 AC 02/11 INH 0837 Albuterol Sulfate 2 PUF Q4-6 PRN PRN 02/06 0230 AC INH Amiodarone HCl 200 MG DAILY 02/15 0900 AC PO Amiodarone HCl 400 MG BID 02/08 1230 AC 02/11 PO 02/15 0000 0823 Ammonium Lactate 1 IDANIA BID 02/10 0900 AC 02/11 TOP 0826 Apixaban 5 MG BID 02/11 1200 DC PO Atorvastatin Calcium 10 MG 1700 02/06 1700 AC 02/10 PO 1627 Carvedilol 25 MG BID 02/06 0900 AC 02/11 PO 1009 Colchicine 600 MCG DAILY 02/06 0900 AC 02/11 PO 0822 Escitalopram Oxalate 5 MG DAILY 02/06 0900 AC 02/11 PO 0821 Ferrous Sulfate 325 MG DAILY 02/06 0900 AC 02/11 PO 0821 Fluticasone 2 SPRAY DAILY 02/06 1000 AC 02/11 Propionate JOAQUIN 0826 Furosemide 40 MG 7:30 AM, & 4:30 PM 02/11 1630 DC PO Furosemide 60 MG 7:30 AM, & 4:30 PM 02/11 1630 AC PO Gabapentin 400 MG TID 02/06 0900 AC 02/11 PO 0821 Guaifenesin 600 MG Q12 02/07 2100 AC 02/11 PO 0821 Heparin Sodium 25,000 UNIT Q24H 02/11 1245 AC (Porcine) IV Sodium Chloride 500 ML Heparin Sodium 25,000 UNIT Q24H 02/10 0930 DC 02/11 (Porcine) IV 0733 Sodium Chloride 500 ML Hydroxyzine HCl 100 MG BID 02/06 2100 AC 02/11 PO 0822 Insulin Aspart 0 TIDAC 02/06 0800 AC 02/11 SC 1226 Ipratropium [place] 2.5 ML TID 02/06 1407 AC 02/10 INH 1342 Lisinopril 10 MG DAILY 02/10 0900 AC 02/10 PO 0759 Montelukast Sodium 10 MG 2100 02/06 2100 AC 02/10 PO 2125 Nystatin 1 IDANIA TID 02/06 1418 DC 02/10 TOP 0951 Oxycodone/ 2 TAB Q6P PRN 02/11 0815 AC 02/11 Acetaminophen PO 0824 Oxycodone/ 2 TAB ONCE ONE 02/10 1530 DC 02/10 Acetaminophen PO 02/10 1531 1521 Sodium Chloride 2 SPRAY Q4P PRN 02/06 1545 AC 02/11 JOAQUIN 0826 Impression/Plan Impression/Problem List Impression: 62 year old male with a past medical history significant for HFrEF (25-30%) nonischemic cardiomyopathy s/p dual chamber PPM/AICD, 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 Patient was admitted to ICU for atrial fibrillation with rapid ventricular rate requiring amiodarone drip and wide complex tachycardia. Patient was admitted from January 08 to January 15 for right lower extremity cellulitis, heart failure exacerbation and acute kidney injury. After the discharge he became sick again within 3 days and was admitted at [facility] for a few days, then stepdown unit and discharged approximately a week back. He received a call from pacemaker people that his heart rate was running really high and was suggested to go to ER. He was significantly tachycardic at arrival and it was wide complex tachycardia, ECG appears A. fib with aberrancy causing wide complex. When patient is asked if he has a previous history of A. fib he says yes, none of the previous records mention that he has A. fib, he is currently not anticoagulated if he had history of A. fib thus it's unclear whether this is new onset or old but he appears in RVR with aberrancy causing wide complexes. ECG findings were discussed with glazier metal furniture who suggested to start amiodarone drip. Given his high stroke risk he was started on heparin drip. ------ In ED patient was found to be in A. fib with RVR. Was given one-time dose of 5 mg Lopressor and one-time dose of cardiazem and was starting on IV amiodarone drip. Vitals on admission temperature 98.3, heart rate 120-->112, 95% on room air, blood pressure 140/67 > 122/78. Labs CBC unremarkable, BEP significant for bicarbonate of 38 and BUN 31, creatinine of 1.2 normal LFTs, d-dimer 315, troponin 0.09, proBNP 6490 Chest x-ray shows cardiomegaly and interstitial edema EKG shows A. fib with aberrancy, wide-complex tachycardia, heart rate of 153, QTC 524 --------- Atrial fibrillation with rapid ventricular response/ WIDE COMPLEXES: Patient presented with worsening shortness of breath, pleuritic chest pain at rest. Received call from pacemaker people that his heart rate was running really high and was suggested to go to the ER. On arrival he was found to have tachycardia, EKG appears A. fib with aberrancy causing wide-complex, tachycardic 130-150. He was hemodynamically stable. He has new onset afib with RVR with aberrancy causing wide complexes. ECG findings were discussed with glazier metal furniture who suggested to start amiodarone drip. Given his high stroke risk/chadsvasc score he was started on heparin drip. * Started oral amiodarone 400 mg twice daily, discontinued amiodarone drip * Continue IV heparin drip Given his high stroke risk/chadsvasc score * Serial troponins negative * Follow-up echocardiogram showed abnormal left ventricular ejection fraction estimated at 25-30%. * Continue home medication carvedilol * Follow cardiology recommendations * Histologist consulted * Interrogation of ICD was done, changes were made * Continuous telemetry monitoring * Monitor vitals every shift * Closely monitor blood pressure * plans for cardioversion with transesophageal echocardiogram- 02/12 Recurrent wide complex tach with ICD in place Patient has 2 episodes of wide complex tachycardia with an ICD in place without shock therapy. One episode was noted in ER at the time of admission and one more episode with 28 beat run on 02/06/2018. Patient was asymptomatic at that time. He has ICD in place. No shock was delivered. The device was interrogated by the [employer] collections representative and found to be functioning properly. It appears as though the patient didn't sustain ventricular tachycardia long enough during any one of these episodes to trigger The device algorhythm for antitachycardia pacing or shock therapy. November 2015- He presented with severe biventricular heart failure at that time. An echocardiogram done on 12/12/2015 showed a severe reduction in LV function with an EF as low as 20%. There was concentric LVH, a dilated right ventricle, a dilated IVC, and a broad left bundle branch block. he was an excellent candidate for cardiac resynchronization therapy given his very broad left bundle branch block. * Histologist Dr. Fenton was consulted. * AICD device was interrogated, able to determine that all his arrhythmias seen are due to conduction of atrial fibrillation, not from V. tach * several reprogramming changes were made to his device including increasing his rates and 5 beats minute to allow more biventricular pacing and also placed on conducted A. fib response. Acute on chronic heart failure with reduced ejection fraction Exertional dyspnea most Likely from HFrEF exacerbation precipitated by atrial fibrillation w/ RVR and pulmonary congestion. Patient chest x-ray showed central pulmonary vascular congestion and early interstitial edema. ProBNP elevated 6490. * Patient usually takes Lasix 80 in the morning and 40 in the evening. Received IV Lasix 60 twice a day so far every day * Lasix 60 PO BID. * Daily weights * Ins and outs * Check serial troponin and EKG, ruled out ACS * [id number] Technical Lead on board * Echo Showed ejection fraction 25% * Continue Coreg 25 twice daily * Continue lisinopril - changed from 5 to 10 mg * Continue atorvastatin * Monitor renal function on intravenous diurectics * Avoid NSAIDs and other nephrotoxins * Maintain potassium above 4 and magnesium about 2 COPD: On 3.5 L nasal cannula/chronic hypercapnic respiratory failure/acute hypoxic respiratory failure Acute on chronic hypoxic respiratory failure most likely from CHF exacerbation and rapid A. fib. CT showed Complete collapse of the right middle lobe of uncertain etiology.Endobronchial lesion\E\malignancy should be excluded. Decreased nodular opacities in the posterior aspect of the right upper lobe could reflect a residual or recurrent inflammatory process/pneumonia. * TRC evaluation * Continue supplemental oxygen * Continue advair, singulair * Nebulized albuterol and ipatropium * chest physiotherapy/Acupella therapy * Mucomyst * Patient needs outpatient CAT scan chest after 2 months JORY: * CPAP-although patient is noncompliant * Check ABG for increased somnolence prn DM: * Hold oral hypoglycemics * Diabetic diet * Accuchecks TIDAC/HS * Novolog sliding scale insulin * Continue gabapentin for neuropathy Gout: * Continue colchicine 0.6 mg. * Avoid giving more than 0.6 mg given drug interaction with amiodarone Depression * continue Lexapro 5 mg daily Hyperlipidemia * Continue Lipitor 10 daily. * Avoid simvastatin given drug interaction with amiodarone stage 2 CKD * Chronic and stable * cr 1.2 * GFR >60 ------- Diabetic diet with 2gram sodium restriction DVT ppx-on IV heparin gtt DNI Housekeeping ICU #1 Central line- none #2 Arterial line- none #3 Villanueva catheter- none #4 Rectal tube - none #5 NG tube - none #6 IV/peripheral line- yes #7 IV drips-heparin #8 Vent settings: none #9 pressors: none CPAP at nighttime Problem List: 1. Wide-complex tachycardia 2. Afib Pain Ratin Tomorrow's Labs & Rationales: cbc bmp Plan DVT/Prophylaxis: mechanical, pharmacological Blair Ayala MD 02/11/18 0937: Attending MD Review Statement Attending Sign Off Attending Cosign Statement: I have: examined this patient, reviewed avalbl EMR data, personally reviewd images, discussd w/resident/PA/ACCESS SPECIALIST, discussed mgmt plan w/jesus, discussed mgmt plan w/CM, discussed mgmt plan w/pt, agreed w/resident/PA/ACCESS SPECIALIST, amended to note. Other Findings: I, Blair Ayala M.D. have examined this patient, reviewed available EMR data, personally reviewed images, discussed with resident/PA/ACCESS SPECIALIST, discussed management plan with housestaff and nursing staff, discussed managment plan all of healthcare providers, discussed management plan with patient and/or family, agreed with resident/PA/ACCESS SPECIALIST. The past history and parts of the chart have been autopopulated. Impression 62 year old man * acute on chronic heart failure - non-ischemic * new on set a.fib * wide complex tachycardia * RML atelectasis Plan -f/u cardiology -DIURESIS per cardiology -IST, mucomyst, chest pt - will require outpatient imaging and if RML issue persists may require further workup including imaging/bronchoscopy etc. -respiratory status is stable at this time -will determine necessity of ANUPAMA from Dr. Willoughby TTS 35 min DVT prophylaxis at all times
[2018-02-11 08:00] VITALS: BP 98/60
--- NOTE | 2018-02-11 08:15 | RADIOLOGY REPORT ---
EXAMINATION: XR PORTABLE CHEST CLINICAL INFORMATION: Shortness of breath. Right middle lobe collapse. COMPARISON: Multiple prior chest x-rays, most recent of which is dated 02/09/2018. CT scan of the chest dated 02/08/2018. TECHNIQUE: Portable AP semierect view of the chest was obtained. FINDINGS: EKG leads overlie the chest. Pacer leads are poorly visualized. The cardiomediastinal silhouette is enlarged, unchanged. There is persistent parenchymal opacity in the medial right lung base, consistent with previously demonstrated collapse of the right middle lobe. There is some improvement in aeration in the lung bases bilaterally. The previously demonstrated central vascular congestion appears to have resolved. No pneumothorax is seen. Bony structures are unremarkable. IMPRESSION: 1. Persistent parenchymal opacity in medial right lung base, consistent with previously demonstrated collapse of the right middle lobe. 2. Improved aeration in lung bases bilaterally, consistent with improved lung expansion and resolution of previously seen atelectatic changes.
--- NOTE | 2018-02-11 10:27 | PN- Cardiology ---
Subjective Subjective: The patient reports that he is feeling better. Shortness of breath is improving. No chest pain. No palpitations. No lightheadedness. He remains in atrial fibrillation Objective Vital Signs and I&Os Vital Signs Date Time Temp Pulse Resp B/P B/P Pulse O2 O2 Flow FiO2 Mean Ox Delivery Rate 02/11 1009 83 110/62 02/11 0841 95 Nasal 4.0L Cannula 02/11 0823 111 98/60 02/11 0800 94 Nasal 4.0L Cannula 02/11 0800 97.4 82 18 98/60 94 Nasal 4.0L Cannula 02/11 0400 96 Nasal 4.0L Cannula 02/11 0000 94 Nasal 2.0L Cannula 02/11 0000 96.6 75 20 90/50 93 Nasal 4.0L Cannula 02/10 2128 98 20 115/63 02/10 2128 98 20 115/63 02/10 2000 92 Nasal 4.0L Cannula 02/10 1840 98 Nasal 4.0L Cannula 02/10 1600 95 Nasal 4.0L Cannula 02/10 1600 97.2 79 20 110/80 97 Nasal 4.0L Cannula 02/10 1200 93 Nasal 4.0L Cannula Intake & Output 02/11 1600 02/11 0800 02/11 0000 02/10 1600 02/10 0800 02/10 0000 Intake Total 516 1136 1090 460 963.2 Output Total 300 1506 587 945 2182 Balance 216 -370 715 160 -886.8 Intake, IV 416 416 370 360 363.2 Intake, Oral 100 720 720 100 600 Number 1 Bowel Movements Output, Urine 300 1506 610 014 8788 Physical Exam: Gen: The patient is in no acute distress HEENT: Normal nose, ears, and oropharynx. Pupils equal bilaterally. Conjunctiva normal. Neck: Supple with no JVD, no masses, and no thyromegaly Lungs: Bilateral rhonchi with normal respiratory effort Heart: Irregularly irregular, S1, S2, 2/6 systolic murmur. 2+ peripheral edema, 2+ pulses in the lower extremities bilaterally Abdomen: Soft, nontender, no masses. No hepatomegaly. No splenomegaly Extremities: No clubbing or cyanosis. Normal muscle strength in the upper and lower extremities Skin: Normal skin turgor with no skin ulcers or lesions noted. Current Medications: Current Medications Sig/Keaton Start time Last Medication Dose Route Stop Time Status Admin Acetaminophen 650 MG ONCE ONE 02/11 0145 DC 02/11 PO 02/11 0146 0148 Acetylcysteine 2 ML BID 02/08 2015 AC 02/11 INH 02/11 2100 0838 Albuterol Sulfate 3 ML TID 02/06 1407 AC 02/11 INH 0837 Albuterol Sulfate 2 PUF Q4-6 PRN PRN 02/06 0230 AC INH Amiodarone HCl 200 MG DAILY 02/15 0900 AC PO Amiodarone HCl 400 MG BID 02/08 1230 AC 02/11 PO 02/15 0000 0823 Ammonium Lactate 1 IDANIA BID 02/10 0900 AC 02/11 TOP 0826 Atorvastatin Calcium 10 MG 1700 02/06 1700 AC 02/10 PO 1627 Carvedilol 25 MG BID 02/06 0900 AC 02/11 PO 1009 Colchicine 600 MCG DAILY 02/06 0900 AC 02/11 PO 0822 Escitalopram Oxalate 5 MG DAILY 02/06 0900 AC 02/11 PO 0821 Ferrous Sulfate 325 MG DAILY 02/06 0900 AC 02/11 PO 0821 Fluticasone 2 SPRAY DAILY 02/06 1000 AC 02/11 Propionate JOAQUIN 0826 Furosemide 40 MG 7:30 AM, & 4:30 PM 02/11 1630 AC PO Gabapentin 400 MG TID 02/06 0900 AC 02/11 PO 0821 Guaifenesin 600 MG Q12 02/07 2100 AC 02/11 PO 0821 Heparin Sodium 25,000 UNIT Q24H 02/10 0930 AC 02/11 (Porcine) IV 0733 Sodium Chloride 500 ML Hydroxyzine HCl 100 MG BID 02/06 2100 AC 02/11 PO 0822 Insulin Aspart 0 TIDAC 02/06 0800 AC 02/10 SC 1627 Ipratropium [place] 2.5 ML TID 02/06 1407 AC 02/10 INH 1342 Lisinopril 10 MG DAILY 02/10 0900 AC 02/10 PO 0759 Montelukast Sodium 10 MG 2100 02/06 2100 AC 02/10 PO 2125 Nystatin 1 IDANIA TID 02/06 1418 DC 02/10 TOP 0951 Oxycodone/ 2 TAB Q6P PRN 02/11 0815 AC 02/11 Acetaminophen PO 0824 Oxycodone/ 2 TAB ONCE ONE 02/10 1530 DC 02/10 Acetaminophen PO 02/10 1531 1521 Sodium Chloride 2 SPRAY Q4P PRN 02/06 1545 AC 02/11 JOAQUIN 0826 Results Last 48 Hrs of Labs/Mics: Laboratory Tests 02/11/18 0930: APTT Pending 02/11/18 0345: Anion Gap 8, Estimated GFR 44 L, Glucose 145 H, Calcium 9.3, Phosphorus 4.6 H , Magnesium 2.1, Total Bilirubin 0.8, AST 11 L, ALT 24, Albumin 3.4 L, CBC w Diff NO MAN DIFF REQ, RBC 3.80 L, MCV 86.3, MCH 28.0, MCHC 32.4 L, RDW 14.8 H , MPV 7.8, Gran % 51.3, Lymphocytes % 36.1, Monocytes % 9.1, Eosinophils % 3.3, Basophils % 0.2, Absolute Granulocytes 3.5, Absolute Lymphocytes 2.5, Absolute Monocytes 0.6, Absolute Eosinophils 0.2, Absolute Basophils 0 02/10/18 2040: APTT 77 H 02/10/18 1344: APTT 54 H 02/10/18 0525: Anion Gap 8, Estimated GFR 52 L, Glucose 134 H, Calcium 9.2, Phosphorus 3.8, Magnesium 2.0, Total Bilirubin 1.0, AST 17, ALT 23, Albumin 3.6, CBC w Diff NO MAN DIFF REQ, RBC 4.05 L, MCV 85.9, MCH 27.4, MCHC 31.9 L, RDW 15.1 H, MPV 7.9, Gran % 60.1, Lymphocytes % 30.1, Monocytes % 7.9, Eosinophils % 1.5, Basophils % 0.4, Absolute Granulocytes 4.5, Absolute Lymphocytes 2.3, Absolute Monocytes 0.6, Absolute Eosinophils 0.1, Absolute Basophils 0 02/10/18 0130: APTT 87 H 02/09/18 1400: APTT 75 H Recent Imaging Studies: Chest x-ray 02/11/18: 1. Persistent parenchymal opacity in medial right lung base, consistent with previously demonstrated collapse of the right middle lobe. 2. Improved aeration in lung bases bilaterally, consistent with improved lung expansion and resolution of previously seen atelectatic changes. Assessment/Plan Assessment/Plan Assessment: 1. Acute on chronic HFrEF secondary to non ischemic cardiomyopathy. 2. AICD 3. Chronic venous insufficiency with LE edema and stasis changes 4. New onset atrial fibrillation, rate currently under control 5. Wide complex tachycardia, secondary to atrial fibrillation with aberrant conduction Plan: * Given increasing creatinine, would change Lasix to 60 mg p.o. twice daily * Continue amiodarone * Start Eliquis 5 mg p.o. twice daily * Discontinue IV heparin when first dose of Eliquis is given * ANUPAMA/cardioversion planned for tomorrow if stable * N.p.o. after midnight Continue telemetry? Yes
[2018-02-11 11:17] LABS: PTT 81 SEC (25-37)
[2018-02-11 16:00] VITALS: BP 102/70
[2018-02-11 21:53] LABS: PTT 89 SEC (25-37)
[2018-02-11 23:00] VITALS: BP 116/72
[2018-02-12 04:50] LABS: ABSOLUTE BASOPHIL COUNT 0 /CUMM (0.0-0.2); ABSOLUTE EOSINOPHIL COUNT 0.1 /CUMM (0.0-0.7); ABSOLUTE GRANULOCYTE CT 4.1 /CUMM (1.4-6.5); ABSOLUTE LYMPH COUNT 1.9 /CUMM (1.2-3.4); ABSOLUTE MONOCYTE COUNT 0.6 /CUMM (0.10-0.60); BASOPHIL % 0.5 % (0.0-2.0); EOSINOPHIL % 2.1 % (0-5); GRANULOCYTE % 61.1 % (42.2-75.2); HEMATOCRIT 34.6 % (42-52); MEAN CORPUSCULAR HGB 27.4 PG (27.0-31.0); MEAN CORPUSCULAR VOLUME 85.7 FL (80.0-94.0); MEAN PLATELET VOLUME 8.1 FL (7.4-10.4); PLATELET COUNT 141 /CUMM (130-400); RBC DISTRIBUTION WIDTH 14.5 % (11.5-14.5); RED BLOOD CELL CT 4.03 /CUMM (4.70-6.10); WHITE BLOOD CELL COUNT 6.8 /CUMM (4.8-10.8)
--- NOTE | 2018-02-12 07:45 | PN- Resident CRCU ---
Sam Aceves 02/12/18 0745: Subjective HPI/CRCU Issues: + A. fib with RVR with aberrancy causing wide complex tachycardia + Acute on chronic heart failure with reduced ejection fraction + Ruled out acute coronary syndrome + Acute on chronic hypoxic respiratory failure, hypercapnia appears chronic + History of DM, JORY noncompliant with CPAP, PAD, COPD 3.5 L NC , CKD S/P CARDIOVERSION IN SINUS RHYTHM 24 Hour Events: Patient was seen and examined this morning. He is alert awake and oriented to time place and person. No acute events happened overnight. Patient reports cough, short of breath, chest congestion, however he improved after starting chest physiotherapy, Mucomyst. Denies any chest pain, palpitations. He denies any nausea, vomiting, abdominal pain, change in bladder or bowel habits. Denies any fever, chills. EKG wide-complex tachycardia and atrial fibrillation, ventricular paced rhythm vitals- he is afebrile, heart rate 70, respiratory rate 18, blood pressure 90/50 , saturating at 92 on 4 L oxygen supplementation. Troponin negative. Objective Vital Signs & I&O Last 8 Hrs of Vitals and I&O: Vital Signs Date Time Temp Pulse Resp B/P B/P Pulse O2 O2 Flow FiO2 Mean Ox Delivery Rate 02/12 0910 80 98/62 02/12 0910 80 98/62 02/12 0845 97 Nasal 4.0L Cannula 02/12 0800 97.0 82 20 98/62 97 Nasal 4.0L Cannula 02/12 0400 98 Nasal 4.0L Cannula 02/12 0000 94 Nasal 4.0L Cannula 02/11 2300 97.2 74 16 116/72 94 Nasal 4.0L Cannula 02/12 2032 85 123/86 02/11 2031 87 123/86 02/12 2008 93 Nasal 4.0L Cannula 02/12 2000 94 Nasal 4.0L Cannula 02/11 1600 96.1 94 28 102/70 94 Nasal 4.0L Cannula 02/11 1600 94 Nasal 4.0L Cannula Intake & Output 02/12 1600 02/12 0800 02/12 0000 Intake Total 418 896 Output Total 2150 2250 Balance -1732 -1354 Intake, IV 418 416 Intake, Oral 480 Number 0 Bowel Movements Output, Urine 2150 2250 Exam General Appearance: well developed/nourished, no apparent distress, alert, awake Other Physical Findings: Neck Supple, No JVD Cardiovascular No Murmurs, irregularly irregular Lungs end inspiratory and expiratory wheezing/rhonchi, no audible crackles Abdomen Normal Bowel Sounds, Soft, No Tenderness, No Masses Extremities No Clubbing, No Cyanosis, Normal Pulses, chronic venous stasis changes, 2+ bilateral lower extremity pitting edema to knees Current Medications: Current Medications Sig/Keaton Start time Last Medication Dose Route Stop Time Status Admin Acetylcysteine 2 ML BID 02/08 2015 DC 02/11 INH 02/11 Albuterol Sulfate 3 ML TID 02/06 1407 AC 02/12 INH 134 Albuterol Sulfate 2 PUF Q4-6 PRN PRN 02/06 0230 AC INH Amiodarone HCl 200 MG DAILY 02/15 0900 AC PO Amiodarone HCl 400 MG BID 02/08 1230 AC 02/12 PO 02/15 0000 0910 Ammonium Lactate 1 IDANIA BID 02/10 0900 AC 02/12 TOP 0911 Atorvastatin Calcium 10 MG 1700 02/06 1700 AC 02/12 PO 1532 Carvedilol 25 MG BID 02/06 0900 AC 02/12 PO 0910 Colchicine 600 MCG DAILY 02/06 0900 AC 02/12 PO 0909 Escitalopram Oxalate 5 MG DAILY 02/06 0900 AC 02/12 PO 0909 Ferrous Sulfate 325 MG DAILY 02/06 0900 AC 02/12 PO 1532 Fluticasone 2 SPRAY DAILY 02/06 1000 AC 02/12 Propionate JOAQUIN 0911 Furosemide 60 MG 7:30 AM, & 4:30 PM 02/11 1630 AC 02/12 PO 1532 Gabapentin 400 MG TID 02/06 0900 AC 02/12 PO 1532 Guaifenesin 600 MG Q12 02/07 2100 AC 02/12 PO 1532 Heparin Sodium 25,000 UNIT Q10H 02/12 1215 AC 02/12 (Porcine) IV 1320 Sodium Chloride 500 ML Heparin Sodium 25,000 UNIT Q24H 02/11 1245 DC 02/12 (Porcine) IV 0132 Sodium Chloride 500 ML Hydroxyzine HCl 100 MG BID 02/06 2100 AC 02/12 PO 0909 Insulin Aspart 0 TIDAC 02/06 0800 AC 02/11 SC 1649 Ipratropium [place] 2.5 ML TID 02/06 1407 AC 02/12 INH 1342 Lisinopril 10 MG DAILY 02/10 0900 AC 02/10 PO 0759 Montelukast Sodium 10 MG 2100 02/06 2100 AC 02/11 PO 2032 Oxycodone/ 2 TAB Q6P PRN 02/11 0815 AC 02/12 Acetaminophen PO 0521 Sodium Chloride 2 SPRAY Q4P PRN 02/06 1545 AC 02/11 JOAQUIN 0826 Impression/Plan Impression/Problem List Impression: 62 year old male with a past medical history significant for HFrEF (25-30%) nonischemic cardiomyopathy s/p dual chamber PPM/AICD, 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 Patient was admitted to ICU for atrial fibrillation with rapid ventricular rate requiring amiodarone drip and wide complex tachycardia. Patient was admitted from January 08 to January 15 for right lower extremity cellulitis, heart failure exacerbation and acute kidney injury. After the discharge he became sick again within 3 days and was admitted at [facility] for a few days, then stepdown unit and discharged approximately a week back. He received a call from pacemaker people that his heart rate was running really high and was suggested to go to ER. He was significantly tachycardic at arrival and it was wide complex tachycardia, ECG appears A. fib with aberrancy causing wide complex. When patient is asked if he has a previous history of A. fib he says yes, none of the previous records mention that he has A. fib, he is currently not anticoagulated if he had history of A. fib thus it's unclear whether this is new onset or old but he appears in RVR with aberrancy causing wide complexes. ECG findings were discussed with switchboard and control room operator who suggested to start amiodarone drip. Given his high stroke risk he was started on heparin drip. ------ In ED patient was found to be in A. fib with RVR. Was given one-time dose of 5 mg Lopressor and one-time dose of cardiazem and was starting on IV amiodarone drip. Vitals on admission temperature 98.3, heart rate 120-->112, 95% on room air, blood pressure 140/67 > 122/78. Labs CBC unremarkable, BEP significant for bicarbonate of 38 and BUN 31, creatinine of 1.2 normal LFTs, d-dimer 315, troponin 0.09, proBNP 6490 Chest x-ray shows cardiomegaly and interstitial edema EKG shows A. fib with aberrancy, wide-complex tachycardia, heart rate of 153, QTC 524 --------- Atrial fibrillation with rapid ventricular response/ WIDE COMPLEXES: Patient presented with worsening shortness of breath, pleuritic chest pain at rest. Received call from pacemaker people that his heart rate was running really high and was suggested to go to the ER. On arrival he was found to have tachycardia, EKG appears A. fib with aberrancy causing wide-complex, tachycardic 130-150. He was hemodynamically stable. He has new onset afib with RVR with aberrancy causing wide complexes. ECG findings were discussed with switchboard and control room operator who suggested to start amiodarone drip. Given his high stroke risk/chadsvasc score he was started on heparin drip. * Started oral amiodarone 400 mg twice daily, discontinued amiodarone drip * Continue IV heparin drip Given his high stroke risk/chadsvasc score * Serial troponins negative * Follow-up echocardiogram showed abnormal left ventricular ejection fraction estimated at 25-30%. * Continue home medication carvedilol * Follow cardiology recommendations * Consulting Property Manager consulted * Interrogation of ICD was done, changes were made * Continuous telemetry monitoring * Monitor vitals every shift * Closely monitor blood pressure * s/p cardioversion with transesophageal echocardiogram- 02/12- in sinus now Recurrent wide complex tach with ICD in place Patient has 2 episodes of wide complex tachycardia with an ICD in place without shock therapy. One episode was noted in ER at the time of admission and one more episode with 28 beat run on 02/06/2018. Patient was asymptomatic at that time. He has ICD in place. No shock was delivered. The device was interrogated by the [employer] artist representative and found to be functioning properly. It appears as though the patient didn't sustain ventricular tachycardia long enough during any one of these episodes to trigger The device algorhythm for antitachycardia pacing or shock therapy. November 2015- He presented with severe biventricular heart failure at that time. An echocardiogram done on 12/12/2015 showed a severe reduction in LV function with an EF as low as 20%. There was concentric LVH, a dilated right ventricle, a dilated IVC, and a broad left bundle branch block. he was an excellent candidate for cardiac resynchronization therapy given his very broad left bundle branch block. * Consulting Property Manager Dr. Fenton was consulted. * AICD device was interrogated, able to determine that all his arrhythmias seen are due to conduction of atrial fibrillation, not from V. tach * several reprogramming changes were made to his device including increasing his rates and 5 beats minute to allow more biventricular pacing and also placed on conducted A. fib response. Acute on chronic heart failure with reduced ejection fraction Exertional dyspnea most Likely from HFrEF exacerbation precipitated by atrial fibrillation w/ RVR and pulmonary congestion. Patient chest x-ray showed central pulmonary vascular congestion and early interstitial edema. ProBNP elevated 6490. * Patient usually takes Lasix 80 in the morning and 40 in the evening. Received IV Lasix 60 twice a day so far every day * Lasix 60 PO BID. * Daily weights * Ins and outs * Check serial troponin and EKG, ruled out ACS * Apprentice Architect on board * Echo Showed ejection fraction 25% * Continue Coreg 25 twice daily * Continue lisinopril - changed from 5 to 10 mg * Continue atorvastatin * Monitor renal function on intravenous diurectics * Avoid NSAIDs and other nephrotoxins * Maintain potassium above 4 and magnesium about 2 COPD: On 3.5 L nasal cannula/chronic hypercapnic respiratory failure/acute hypoxic respiratory failure Acute on chronic hypoxic respiratory failure most likely from CHF exacerbation and rapid A. fib. CT showed Complete collapse of the right middle lobe of uncertain etiology.Endobronchial lesion\E\malignancy should be excluded. Decreased nodular opacities in the posterior aspect of the right upper lobe could reflect a residual or recurrent inflammatory process/pneumonia. * TRC evaluation * Continue supplemental oxygen * Continue advair, singulair * Nebulized albuterol and ipatropium * chest physiotherapy/Acupella therapy * Mucomyst * Patient needs outpatient CAT scan chest after 2 months JORY: * CPAP-although patient is noncompliant * Check ABG for increased somnolence prn DM: * Hold oral hypoglycemics * Diabetic diet * Accuchecks TIDAC/HS * Novolog sliding scale insulin * Continue gabapentin for neuropathy Gout: * Continue colchicine 0.6 mg. * Avoid giving more than 0.6 mg given drug interaction with amiodarone Depression * continue Lexapro 5 mg daily Hyperlipidemia * Continue Lipitor 10 daily. * Avoid simvastatin given drug interaction with amiodarone stage 2 CKD * Chronic and stable * cr 1.2 * GFR >60 ------- Diabetic diet with 2gram sodium restriction DVT ppx-on IV heparin gtt DNI Housekeeping ICU #1 Central line- none #2 Arterial line- none #3 Villanueva catheter- none #4 Rectal tube - none #5 NG tube - none #6 IV/peripheral line- yes #7 IV drips-heparin #8 Vent settings: none #9 pressors: none CPAP at nighttime As per Dr. George, on transesophageal echocardiogram, patient was found to have floppy aortic valve suspicious for aortic dissection. Recommended to get CT angiogram of chest to rule out aortic dissection tomorrow if his creatinine improves Problem List: 1. Wide-complex tachycardia 2. Afib Pain Ratin Tomorrow's Labs & Rationales: cbc bep Plan DVT/Prophylaxis: mechanical, pharmacological Blair Ayala MD 02/12/18 1158: Attending MD Review Statement Attending Sign Off Attending Cosign Statement: I have: examined this patient, reviewed avalbl EMR data, personally reviewd images, discussd w/resident/PA/DRILL PRESS OPERATOR, discussed mgmt plan w/jesus, discussed mgmt plan w/CM, discussed mgmt plan w/pt, agreed w/resident/PA/DRILL PRESS OPERATOR, amended to note. Other Findings: I, Blair Ayala M.D. have examined this patient, reviewed available EMR data, personally reviewed images, discussed with resident/PA/DRILL PRESS OPERATOR, discussed management plan with housestaff and nursing staff, discussed managment plan all of healthcare providers, discussed management plan with patient and/or family, agreed with resident/PA/DRILL PRESS OPERATOR. The past history and parts of the chart have been autopopulated. Impression 62 year old man * acute on chronic heart failure - non-ischemic * new on set a.fib * wide complex tachycardia * RML atelectasis Plan -f/u cardiology -DIURESIS per cardiology -IST, mucomyst, chest pt - will require outpatient imaging and if RML issue persists may require further workup including imaging/bronchoscopy etc. -respiratory status is stable at this time -if stable after ANUPAMA can be dg to telemetry TTS 35 min
[2018-02-12 08:00] VITALS: BP 98/62
[2018-02-12 11:25] LABS: PTT 71 SEC (25-37)
--- NOTE | 2018-02-12 12:04 | PN- Cardiology ---
Subjective Subjective: In general doing about the same. Still with some respiratory distress and cough. REmains in atrial fibrillation with reasonable rate control. ANUPAMA / DCCV pending for later today. Objective Vital Signs and I&Os Vital Signs Date Time Temp Pulse Resp B/P B/P Pulse O2 O2 Flow FiO2 Mean Ox Delivery Rate 02/12 0910 80 98/62 02/12 0910 80 98/62 02/12 0845 97 Nasal 4.0L Cannula 02/12 0800 97.0 82 20 98/62 97 Nasal 4.0L Cannula 02/12 0400 98 Nasal 4.0L Cannula 02/12 0000 94 Nasal 4.0L Cannula 02/11 2300 97.2 74 16 116/72 94 Nasal 4.0L Cannula 02/12 2032 85 123/86 02/11 2031 87 123/86 02/12 2008 93 Nasal 4.0L Cannula 02/12 2000 94 Nasal 4.0L Cannula 02/12 1600 96.1 94 28 102/70 94 Nasal 4.0L Cannula 02/11 1600 94 Nasal 4.0L Cannula Intake & Output 02/12 1600 02/12 0800 02/12 0000 02/11 1600 02/11 0800 02/11 0000 Intake Total 229 470 5906 516 2226 Output Total 2150 2250 886 700 8760 Balance -1732 -1354 437 216 345 Intake, IV 418 416 417 416 786 Intake, Oral 480 266 612 2119 Number 0 0 1 Bowel Movements Output, Urine 2150 2250 781 610 1079 Patient 381 lb Weight Physical Exam: General Appearance: well developed/nourished overweight, alert and oriented 3 Neck Supple, No JVD, carotids normal bilaterally Cardiovascular irregular S1, S2, 2/6 systolic murmur Lungs bilateral rhonchi and wheezing Abdomen Normal Bowel Sounds, Soft, No Tenderness, No Masses Extremities No Clubbing, No Cyanosis, Normal Pulses, chronic venous stasis changes, 2+ bilateral lower extremity pitting edema to knees Current Medications: Current Medications Sig/Keaton Start time Last Medication Dose Route Stop Time Status Admin Acetylcysteine 2 ML BID 02/08 2015 DC 02/11 INH 02/11 2100 2001 Albuterol Sulfate 3 ML TID 02/06 1407 AC 02/12 INH 0806 Albuterol Sulfate 2 PUF Q4-6 PRN PRN 02/06 0230 AC INH Amiodarone HCl 200 MG DAILY 02/15 0900 AC PO Amiodarone HCl 400 MG BID 02/08 1230 AC 02/12 PO 02/15 0000 0910 Ammonium Lactate 1 IDANIA BID 02/10 0900 AC 02/12 TOP 0911 Apixaban 5 MG BID 02/11 1200 DC PO Atorvastatin Calcium 10 MG 1700 02/06 1700 AC 02/11 PO 1610 Carvedilol 25 MG BID 02/06 0900 AC 02/12 PO 0910 Colchicine 600 MCG DAILY 02/06 0900 AC 02/12 PO 0909 Escitalopram Oxalate 5 MG DAILY 02/06 0900 AC 02/12 PO 0909 Ferrous Sulfate 325 MG DAILY 02/06 0900 AC 02/11 PO 0821 Fluticasone 2 SPRAY DAILY 02/06 1000 AC 02/12 Propionate JOAQUIN 0911 Furosemide 60 MG 7:30 AM, & 4:30 PM 02/11 1630 AC 02/12 PO 0635 Gabapentin 400 MG TID 02/06 0900 AC 02/12 PO 0908 Guaifenesin 600 MG Q12 02/07 2100 AC 02/11 PO 2031 Heparin Sodium 25,000 UNIT Q24H 02/11 1245 AC 02/12 (Porcine) IV 0132 Sodium Chloride 500 ML Hydroxyzine HCl 100 MG BID 02/06 2100 AC 02/12 PO 0909 Insulin Aspart 0 TIDAC 02/06 0800 AC 02/11 SC 1649 Ipratropium [place] 2.5 ML TID 02/06 1407 AC 02/12 INH 0806 Lisinopril 10 MG DAILY 02/10 0900 AC 02/10 PO 0759 Montelukast Sodium 10 MG 2100 02/06 2100 AC 02/11 PO 2032 Oxycodone/ 2 TAB Q6P PRN 02/11 0815 AC 02/12 Acetaminophen PO 0521 Sodium Chloride 2 SPRAY Q4P PRN 02/06 1545 AC 02/11 JOAQUIN 0826 Results Last 48 Hrs of Labs/Mics: Laboratory Tests 02/12/18 0930: APTT 71 H 02/12/18 0402: Anion Gap 9, Estimated GFR 56 L, Glucose 143 H, Calcium 9.1, Phosphorus 4.0, Magnesium 1.9, Total Bilirubin 0.7, AST 15 L, ALT 24, Albumin 3.4 L, CBC w Diff NO MAN DIFF REQ, RBC 4.03 L, MCV 85.7, MCH 27.4, MCHC 32.0 L, RDW 14.5, MPV 8.1, Gran % 61.1, Lymphocytes % 27.5, Monocytes % 8.8, Eosinophils % 2.1, Basophils % 0.5, Absolute Granulocytes 4.1, Absolute Lymphocytes 1.9, Absolute Monocytes 0.6, Absolute Eosinophils 0.1, Absolute Basophils 0 02/11/18 2117: APTT 89 H 02/11/18 0930: APTT 81 H 02/11/18 0345: Anion Gap 8, Estimated GFR 44 L, Glucose 145 H, Calcium 9.3, Phosphorus 4.6 H , Magnesium 2.1, Total Bilirubin 0.8, AST 11 L, ALT 24, Albumin 3.4 L, CBC w Diff NO MAN DIFF REQ, RBC 3.80 L, MCV 86.3, MCH 28.0, MCHC 32.4 L, RDW 14.8 H , MPV 7.8, Gran % 51.3, Lymphocytes % 36.1, Monocytes % 9.1, Eosinophils % 3.3, Basophils % 0.2, Absolute Granulocytes 3.5, Absolute Lymphocytes 2.5, Absolute Monocytes 0.6, Absolute Eosinophils 0.2, Absolute Basophils 0 02/10/18 2040: APTT 77 H 02/10/18 1344: APTT 54 H Assessment/Plan Assessment/Plan Assessment: 1. Acute on chronic HFrEF secondary to non ischemic cardiomyopathy. 2. AICD 3. Chronic venous insufficiency with LE edema and stasis changes 4. New onset atrial fibrillation, rate currently under control 5. Wide complex tachycardia, secondary to atrial fibrillation with aberrant conduction Recommendations: - ANUPAMA / DCCV successfully completed. THe patient is currently in NSR with normal rate. - No complications incurred. - Continue current medications for now. - Monitor on monitoring coordinator for another 48 hours. - The patient's ANUPAMA was technically difficult. In the descending thoracic aorta there is noted to be an illdefined linear echodensity which may be related to acoustic artifact, however, the possibility of a focal dissection flap cannot be completely excluded. - Continue IV heparin for now. - If the patient's BUN and creatinine are reasonable over the next 48 hours, consider a CTA chest to better define the anatomy of the descending thoracic aorta before transitioning to Eliquis. - Discussed with the patient, housestaff and Dr. Ayala. Continue telemetry? No
--- NOTE | 2018-02-12 13:54 | Event Note ---
Event Note Event Note: As per Dr. George, on transesophageal echocardiogram, patient was found to have floppy aortic valve suspicious for aortic dissection. * Recommended to get CT angiogram of chest to rule out aortic dissection tomorrow if his creatinine improves. * Patient needs continuous telemetry monitoring * Stable for telemetry floor * Advised to continue IV heparin drip with plan to change to eliqus at the time of discharge for atrial fibrillation * Patient is in sinus rhythm now status post cardioversion
[2018-02-12 16:00] VITALS: BP 122/78
--- NOTE | 2018-02-12 16:59 | ECHOCARDIOGRAM REPORT ---
SUZETTE GRIGSBY Age: 62 : Gender: M Exam Date: 02/12/2018 12:42 Exam Location: [facility] Ht (in): 72 Wt (lb): 381 BSA: 3.06 BP: 98 / 62 Ordering Physician: Margaret Aceves MD Referring Physician: Margaret Aceves MD Technologist: Ayaan Rogers [place] Room Number: 106 Indications: AFIB/FLUTTER Rhythm: Atrial fibrillation Technical Quality: Fair Medications Lidocaine [place]. Propofol administered by Anesthesiology. Ease of Transducer Insertion No Difficulty Complications None. Technical Difficulty FINDINGS Left Ventricle Moderate left ventricular dilatation. Left ventricular wall thickness increased. Moderately reduced global left ventricular systolic function. Moderately abnormal left ventricular ejection fraction estimated at 25-30%. Right Ventricle Right ventricular dilatation. Right Atrium Right atrial dilatation. Left Atrium Mild to moderate left atrial dilatation. LA Appendage Normal left atrial appendage. IA Septum Patent foramen ovale. Mitral Valve Mitral valve thickened. Aortic Valve Trileaflet aortic valve. Diffuse thickening (sclerosis) of the aortic valve cusps without reduced excursion. No aortic stenosis. No aortic regurgitation. Tricuspid Valve Tricuspid valve not well visualized, grossly normal. Mild tricuspid regurgitation. Pulmonic Valve Pulmonic valve not well visualized, grossly normal. Mild pulmonic regurgitation. Pericardium No pericardial effusion. Great Vessels Aortic root and proximal ascending aorta not well visualized. Grade I plaque seen in the aortic arch. Grade I plaque seen in the descending aorta. CONCLUSIONS 1. Aortic sclerosis is present with no valvular stenosis or insufficiency. 2. Mitral leaflet thickening is present with mild mitral insufficiency and left atrial enlargement. Spontaneous contrast is present. 3. THe left atrial appendage is normal with no evidence of thrombus. 4. The pulmonary venous anatomy appears normal. 5. There is no pericardial fluid present. 6. The left ventricular chamber is dilated with global hypokinesia and eccentric hypertrophy with an ejection fraction of approximately 25%. 7. The right heart structures were not optimally assessed. Mild tricuspid and pulmonic insufficiency are present. 8. A PFO is present. Agitated saline injection was not performed. 9. Grade I atheromatous plaque is present in the distal aortic arch and descending thoracic aorta. 10. An illdefined linear mobile echodensity is present in the mid descending thoracic aorta. I suspect that this represents acoustic artifact, however, the possibility of a focal intimal disruption cannot be totally excluded by this examination. Further assessment with a CTA chest is suggested if feasible. Immediately following the completion of the ANUPAMA, while still under anesthesia, the patient was converted to NSR with 300 joules of synchronized energy. The patient woke in stable condition with no complications incurred and maintained sinus rhythm. Daksha George M.D. (Electronically Signed) Final Date: 12 February 2018 16:59 MEASUREMENTS (Male / Female) Normal Values
[2018-02-12 22:00] VITALS: BP 132/78
[2018-02-12 22:56] LABS: PTT 42 SEC (25-37)
[2018-02-13 06:36] VITALS: BP 122/84
[2018-02-13 08:28] LABS: ABSOLUTE BASOPHIL COUNT 0 /CUMM (0.0-0.2); ABSOLUTE EOSINOPHIL COUNT 0.1 /CUMM (0.0-0.7); ABSOLUTE GRANULOCYTE CT 4.2 /CUMM (1.4-6.5); ABSOLUTE LYMPH COUNT 1.6 /CUMM (1.2-3.4); ABSOLUTE MONOCYTE COUNT 0.6 /CUMM (0.10-0.60); BASOPHIL % 0.3 % (0.0-2.0); EOSINOPHIL % 1.6 % (0-5); GRANULOCYTE % 64.6 % (42.2-75.2); HEMATOCRIT 33.9 % (42-52); MEAN CORPUSCULAR HGB 27.7 PG (27.0-31.0); MEAN CORPUSCULAR HGB CONC 32.3 G/DL (33.0-37.0); MEAN CORPUSCULAR VOLUME 85.7 FL (80.0-94.0); MEAN PLATELET VOLUME 7.7 FL (7.4-10.4); PLATELET COUNT 155 /CUMM (130-400); RBC DISTRIBUTION WIDTH 14.6 % (11.5-14.5); RED BLOOD CELL CT 3.96 /CUMM (4.70-6.10); WHITE BLOOD CELL COUNT 6.5 /CUMM (4.8-10.8)
--- NOTE | 2018-02-13 08:34 | PN- Housestaff ---
Subjective Follow-up For: A fib with RVR, converted back to NSR with cardioversion possible aortic dissection Tele-Events Since Last Visit: NSR with HR in 70s-80s Subjective: Patient was seen and examined at bedside. He is resting comfortably. He had no acute events overnight. His cough is improving, however still of some whitish sputum. Denies any shortness of breath, chest pain, palpitations, nausea, vomiting, fever, chills. His only current complaint is dissatisfaction with the carbohydrate restriction on his diet. Review of Systems Constitutional: Denies: chills, fever. EENTM: Reports: no symptoms. Cardiovascular: Reports: peripheral edema (chronic). Denies: chest pain, palpitations. Respiratory: Reports: cough, sputum production. Denies: short of breath. Gastrointestinal: Reports: no symptoms. Genitourinary: Reports: no symptoms. Musculoskeletal: Reports: no symptoms. Skin: Reports: no symptoms. Objective Last 24 Hrs of Vital Signs/I&O Vital Signs Date Time Temp Pulse Resp B/P B/P Pulse O2 O2 Flow FiO2 Mean Ox Delivery Rate 02/13 0817 122/84 02/13 0817 122/84 02/13 0817 122/84 02/13 0636 98.1 74 20 122/ 96 Nasal 4.0L Cannula 02/12 2245 90 Nasal 4.0L Cannula 02/12 2200 98.7 76 22 132/78 90 Nasal 4.0L Cannula 02/12 2140 76 132/78 02/12 2140 76 132/78 02/12 2032 96 Nasal 4.0L Cannula 02/12 1600 95 Nasal 4.0L Cannula 02/12 1600 97.2 75 16 122/78 95 Nasal 4.0L Cannula 02/12 0910 80 98/62 02/12 0910 80 98/62 02/12 0845 97 Nasal 4.0L Cannula Intake & Output 02/13 1600 02/13 0800 02/13 0000 Intake Total 616 1155 Output Total 350 450 Balance 266 705 Intake, IV 496 675 Intake, Oral 120 480 Number 0 0 Bowel Movements Output, Urine 350 450 Physical Exam General Appearance: Alert, Oriented X3, Cooperative, No Acute Distress Skin Temp/Moisture Exam: Warm/Dry Cardiovascular: Regular Rate, Normal S1, Normal S2 Lungs: diffuse rhonchi, scant expiratory wheezing Abdomen: Normal Bowel Sounds, Soft, No Tenderness Neurological: Normal Speech, Normal Tone, Sensation Intact Extremities: violacious chronic venous insufficiency skin changes on the distal LEs bilateraly, 2+ edema of the LEs Current Medications: Current Medications Sig/Keaton Start time Last Medication Dose Route Stop Time Status Admin Albuterol Sulfate 3 ML TID 02/06 1407 AC 02/12 INH 203 Albuterol Sulfate 2 PUF Q4-6 PRN PRN 02/06 0230 AC INH Amiodarone HCl 200 MG DAILY 02/15 0900 AC PO Amiodarone HCl 400 MG BID 02/08 1230 AC 02/13 PO 02/15 0000 0817 Ammonium Lactate 1 IDANIA BID 02/10 0900 AC 02/12 TOP 2158 Atorvastatin Calcium 10 MG 1700 02/06 1700 AC 02/12 PO 1532 Carvedilol 25 MG BID 02/06 0900 AC 02/13 PO 0817 Colchicine 600 MCG DAILY 02/06 0900 AC 02/13 PO 0817 Escitalopram Oxalate 5 MG DAILY 02/06 0900 AC 02/13 PO 0817 Ferrous Sulfate 325 MG DAILY 02/06 0900 AC 02/12 PO 1532 Fluticasone 2 SPRAY DAILY 02/06 1000 AC 02/12 Propionate JOAQUIN 0911 Furosemide 60 MG 7:30 AM, & 4:30 PM 02/11 1630 AC 02/13 PO 0817 Gabapentin 400 MG TID 02/06 0900 AC 02/13 PO 0817 Guaifenesin 600 MG Q12 02/07 2100 AC 02/12 PO 2140 Heparin Sodium 25,000 UNIT Q10H 02/12 1215 AC 02/13 (Porcine) IV 0016 Sodium Chloride 500 ML Heparin Sodium 25,000 UNIT Q24H 02/11 1245 DC 02/12 (Porcine) IV 0132 Sodium Chloride 500 ML Heparin Sodium/ 25,000 UNIT .STK-MED ONE 02/12 1237 DC Dextrose IV 02/12 1238 Hydroxyzine HCl 100 MG BID 02/06 2100 AC 02/13 PO 0817 Insulin Aspart 0 TIDAC 02/06 0800 AC 02/12 SC 1730 Ipratropium [place] 2.5 ML TID 02/06 1407 AC 02/12 INH 203 Ketamine HCl 50 MG .STK-MED ONE 02/12 1243 DC IM 02/12 1244 Lidocaine 5 IDANIA .STK-MED ONE 02/12 1241 DC TOP 02/12 1242 Lisinopril 10 MG DAILY 02/10 0900 AC 02/13 PO 0817 Montelukast Sodium 10 MG 2100 02/06 2100 AC 02/12 PO 2140 Oxycodone/ 2 TAB Q6P PRN 02/11 0815 AC 02/12 Acetaminophen PO 2140 Sodium Chloride 2 SPRAY Q4P PRN 02/06 1545 AC 02/11 JOAQUIN 0826 Last 24 Hrs of Lab/Joaquim Results Last 24 Hrs of Labs/Mics: Laboratory Tests 02/13/18 0630: Anion Gap 8, Estimated GFR 56 L, Glucose 129 H, Calcium 9.7, Phosphorus 4.0, Magnesium 1.8, Total Bilirubin 1.0, AST 30, ALT 31, Albumin 3.7, APTT > 120 *H, CBC w Diff NO MAN DIFF REQ, RBC 3.96 L, MCV 85.7, MCH 27.7, MCHC 32.3 L, RDW 14.6 H, MPV 7.7, Gran % 64.6, Lymphocytes % 24.8, Monocytes % 8.7, Eosinophils % 1.6, Basophils % 0.3, Absolute Granulocytes 4.2, Absolute Lymphocytes 1.6, Absolute Monocytes 0.6, Absolute Eosinophils 0.1, Absolute Basophils 0 02/12/18 2158: APTT 42 H Orders Radiology Findings: CTA chest The examination is mildly limited by cardiac pulsatility. No visible dissection flap is seen with mild limitation in the ascending segment due to cardiac pulsatility. The ascending segment, arch segment, and descending segment of the thoracic aorta are all normal in caliber. No evidence for intramural hematoma. Three-vessel aortic arch. The great vessels are patent. The exam was timed for the aorta. The pulmonary arteries are not well evaluated but there is no central pulmonary embolus. No mediastinal adenopathy. The heart is enlarged. Left subclavian pacer/AICD leads terminating in the right atrium right ventricle and coronary sinus. No significant pericardial effusion. As noted on the previous examination there is complete collapse of the right middle lobe of uncertain etiology. No change in nodular airspace disease in the posterior right upper lobe and new nodular airspace disease in the lower lobe. Findings may reflect aspiration. There is bibasilar atelectasis. The upper abdomen is unremarkable. Degenerative changes in the spine. IMPRESSION: Exam mildly limited by cardiac pulsatility. No aortic dissection seen. No aortic aneurysm. New airspace disease in the right lower lobe and unchanged airspace disease in the posterior right upper lobe. Findings may reflect pneumonia and/or aspiration. Assessment/Plan Assessment: 62 year old male with a past medical history significant for HFrEF (25-30%) nonischemic cardiomyopathy s/p dual chamber PPM/AICD, 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 Patient was admitted to ICU for atrial fibrillation with rapid ventricular rate requiring amiodarone drip and wide complex tachycardia. Patient was admitted from January 08 to January 15 for right lower extremity cellulitis, heart failure exacerbation and acute kidney injury. After the discharge he became sick again within 3 days and was admitted at [place] [facility] for a few days, then stepdown unit and discharged approximately a week back. He received a call from pacemaker people that his heart rate was running really high and was suggested to go to ER. He was significantly tachycardic at arrival and it was wide complex tachycardia, ECG appears A. fib with aberrancy causing wide complex. When patient is asked if he has a previous history of A. fib he says yes, none of the previous records mention that he has A. fib, he is currently not anticoagulated if he had history of A. fib thus it's unclear whether this is new onset or old but he appears in RVR with aberrancy causing wide complexes. ECG findings were discussed with sexer who suggested to start amiodarone drip. Given his high stroke risk he was started on heparin drip. ------ In ED patient was found to be in A. fib with RVR. Was given one-time dose of 5 mg Lopressor and one-time dose of cardiazem and was starting on IV amiodarone drip. Vitals on admission temperature 98.3, heart rate 120-->112, 95% on room air, blood pressure 140/67 > 122/78. Labs CBC unremarkable, BEP significant for bicarbonate of 38 and BUN 31, creatinine of 1.2 normal LFTs, d-dimer 315, troponin 0.09, proBNP 6490 Chest x-ray shows cardiomegaly and interstitial edema EKG shows A. fib with aberrancy, wide-complex tachycardia, heart rate of 153, QTC 524 --------- Possible Aortic dissection seen in the descending aorta on ANUPAMA Should plan to wait until renal function improves for CTA, however based on recommendations of audit clerks supervisor Dr. Puente we will proceed with CTA today. We 'll give small bolus of IV fluids. Case was discussed with on-call vascular surgeon Dr. Alcantar who recommended following up CTA, continue type BP control and someone from vascular surgery will see tomorrow or Thursday. Descending aortic dissections are treated electively. -CTA chest negative for aortic dissection, however there is a new airspace disease of the right lower lobe, patient is afebrile and without leukocytosis, we'll monitor for now. Atrial fibrillation with rapid ventricular response/ WIDE COMPLEXES: Patient presented with worsening shortness of breath, pleuritic chest pain at rest. Received call from pacemaker people that his heart rate was running really high and was suggested to go to the ER. On arrival he was found to have tachycardia, EKG appears A. fib with aberrancy causing wide-complex, tachycardic 130-150. He was hemodynamically stable. He has new onset afib with RVR with aberrancy causing wide complexes. ECG findings were discussed with sexer who suggested to start amiodarone drip. Given his high stroke risk/chadsvasc score he was started on heparin drip. * Started oral amiodarone 400 mg twice daily, discontinued amiodarone drip * Continue IV heparin drip Given his high stroke risk/chadsvasc score * Serial troponins negative * Follow-up echocardiogram showed abnormal left ventricular ejection fraction estimated at 25-30%. * Continue home medication carvedilol * Follow cardiology recommendations * Metal Mover consulted * Interrogation of ICD was done, changes were made * Continuous telemetry monitoring * Monitor vitals every shift * Closely monitor blood pressure * s/p cardioversion with transesophageal echocardiogram- 02/12- in sinus now Recurrent wide complex tach with ICD in place Patient has 2 episodes of wide complex tachycardia with an ICD in place without shock therapy. One episode was noted in ER at the time of admission and one more episode with 28 beat run on 02/06/2018. Patient was asymptomatic at that time. He has ICD in place. No shock was delivered. The device was interrogated by the [employer] guest experience representative and found to be functioning properly. It appears as though the patient didn't sustain ventricular tachycardia long enough during any one of these episodes to trigger The device algorhythm for antitachycardia pacing or shock therapy. November 2015- He presented with severe biventricular heart failure at that time. An echocardiogram done on 12/12/2015 showed a severe reduction in LV function with an EF as low as 20%. There was concentric LVH, a dilated right ventricle, a dilated IVC, and a broad left bundle branch block. he was an excellent candidate for cardiac resynchronization therapy given his very broad left bundle branch block. * Metal Mover Dr. Fenton was consulted. * AICD device was interrogated, able to determine that all his arrhythmias seen are due to conduction of atrial fibrillation, not from V. tach * several reprogramming changes were made to his device including increasing his rates and 5 beats minute to allow more biventricular pacing and also placed on conducted A. fib response. Acute on chronic heart failure with reduced ejection fraction Exertional dyspnea most Likely from HFrEF exacerbation precipitated by atrial fibrillation w/ RVR and pulmonary congestion. Patient chest x-ray showed central pulmonary vascular congestion and early interstitial edema. ProBNP elevated 6490. * increased Lasix to 80 mg PO BID * Daily weights * Ins and outs * Check serial troponin and EKG, ruled out ACS * Robotics Engineer on board * Echo Showed ejection fraction 25% * Continue Coreg 25 twice daily * Continue lisinopril - changed from 5 to 10 mg * Continue atorvastatin * Monitor renal function on intravenous diurectics * Avoid NSAIDs and other nephrotoxins * Maintain potassium above 4 and magnesium about 2 COPD: On 3.5 L nasal cannula/chronic hypercapnic respiratory failure/acute hypoxic respiratory failure Acute on chronic hypoxic respiratory failure most likely from CHF exacerbation and rapid A. fib. CT showed Complete collapse of the right middle lobe of uncertain etiology.Endobronchial lesion\E\malignancy should be excluded. Decreased nodular opacities in the posterior aspect of the right upper lobe could reflect a residual or recurrent inflammatory process/pneumonia. * TRC evaluation * Continue supplemental oxygen, wean down as tolerated * Continue advair, singulair * Nebulized albuterol and ipatropium * chest physiotherapy/Acupella therapy * Mucomyst * Patient needs outpatient CAT scan chest after 2 months * Start Diamox 250 mg PO daily for metabolic alkalosis JORY: * CPAP-although patient is noncompliant * Check ABG for increased somnolence prn DM: * Hold oral hypoglycemics * Diabetic diet * Accuchecks TIDAC/HS * Novolog sliding scale insulin * Continue gabapentin for neuropathy Gout: * Continue colchicine 0.6 mg. * Avoid giving more than 0.6 mg given drug interaction with amiodarone Depression * continue Lexapro 5 mg daily Hyperlipidemia * Continue Lipitor 10 daily. * Avoid simvastatin given drug interaction with amiodarone stage 2 CKD * Chronic and stable * cr 1.3 * GFR >60 Diabetic diet with 2gram sodium restriction DVT ppx-on IV heparin gtt DNI Problem List: 1. COPD exacerbation 2. CHF (congestive heart failure) Pain Ratin Pain Location: none Pain Goal: Remain pain free Pain Plan: pain pathway Tomorrow's Labs & Rationales: cbc, bep
[2018-02-13 09:08] LABS: PTT > 120 SEC (25-37)
--- NOTE | 2018-02-13 10:08 | PN- Att Addend ---
Attending Addendum Attending Brief Note Patient seen and examined. Plan of care discussed with the medical team and the patient. Available lab work and radiology test reports were reviewed. Patient is sitting in chair this morning. He states that he is feeling somewhat better however he wants to his diet be changed so that he can gets some fruit juice. His breathing seems to be better than yesterday. Denies any fever or chills nausea or vomiting. He also complains of for coughing with the sputum production. Patient is status post ANUPAMA and cardioversion yesterday. Exam: General: Patient awake alert oriented without any distress CVS: S1 plus S2 without any murmur or gallops Chest: Few scattered crepitation without any wheeze. There is no respiratory distress. 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 fib with RVR with aberrancy causing wide complex tachycardia * Acute on chronic heart failure with reduced ejection fraction * Acute on chronic hypoxic respiratory failure, hypercapnia appears chronic * History of DM, * JORY noncompliant with CPAP, * PAD, * COPD 3.5 L NC , * CKD * Rule out aortic dissection based on ANUPAMA findings Plan * Incentive spirometry * Taper oxygen as tolerated * Increase Lasix dose to 80 mg by mouth twice a day * Follow-up labs today and her creatinine is back to baseline he can proceed to CTA to rule out aortic dissection. If aortic dissection is confirmed then heparin will need to be discontinued. Current Medications Sig/Keaton Start time Last Medication Dose Route Stop Time Status Admin Albuterol Sulfate 3 ML TID 02/06 1407 AC 02/13 INH 0836 Albuterol Sulfate 2 PUF Q4-6 PRN PRN 02/06 0230 AC INH Amiodarone HCl 200 MG DAILY 02/15 0900 AC PO Amiodarone HCl 400 MG BID 02/08 1230 AC 02/13 PO 02/15 0000 0817 Ammonium Lactate 1 IDANIA BID 02/10 0900 AC 02/13 TOP 0837 Atorvastatin Calcium 10 MG 1700 02/06 1700 AC 02/12 PO 1532 Carvedilol 25 MG BID 02/06 0900 AC 02/13 PO 0817 Colchicine 600 MCG DAILY 02/06 0900 AC 02/13 PO 0817 Escitalopram Oxalate 5 MG DAILY 02/06 09 AC 02/13 PO 0817 Ferrous Sulfate 325 MG DAILY 02/06 0900 AC 02/12 PO 1532 Fluticasone 2 SPRAY DAILY 02/06 1000 AC 02/13 Propionate JOAQUIN 0837 Furosemide 60 MG 7:30 AM, & 4:30 PM 02/11 1630 AC 02/13 PO 0817 Gabapentin 400 MG TID 02/06 0900 AC 02/13 PO 0817 Guaifenesin 600 MG Q12 02/07 2100 AC 02/12 PO 2140 Heparin Sodium 25,000 UNIT Q10H 02/12 1215 AC 02/13 (Porcine) IV 0016 Sodium Chloride 500 ML Heparin Sodium 25,000 UNIT Q24H 02/11 1245 DC 02/12 (Porcine) IV 0132 Sodium Chloride 500 ML Heparin Sodium/ 25,000 UNIT .STK-MED ONE 02/12 1237 DC Dextrose IV 02/12 1238 Hydroxyzine HCl 100 MG BID 02/06 2100 AC 02/13 PO 0817 Insulin Aspart 0 TIDAC 02/06 0800 AC 02/12 SC 1730 Ipratropium [place] 2.5 ML TID 02/06 1407 AC 02/13 INH 0836 Ketamine HCl 50 MG .STK-MED ONE 02/12 1243 DC IM 02/12 1244 Lidocaine 5 IDANIA .STK-MED ONE 02/12 1241 DC TOP 02/12 1242 Lisinopril 10 MG DAILY 02/10 0900 AC 02/13 PO 0817 Montelukast Sodium 10 MG 02/06 2100 AC 02/12 PO 2140 Oxycodone/ 2 TAB Q6P PRN 02/11 0815 AC 02/12 Acetaminophen PO 2140 Sodium Chloride 2 SPRAY Q4P PRN 02/06 1545 AC 02/11 JOAQUIN 0826 Laboratory Tests 02/13/18 0630: Sodium Pending, Potassium Pending, Chloride Pending, Carbon Dioxide Pending, Anion Gap Pending, BUN Pending, Creatinine Pending, Glucose Pending, Calcium Pending, Phosphorus Pending, Magnesium Pending, Total Bilirubin Pending, AST Pending, ALT Pending, Albumin Pending, APTT > 120 *H, CBC w Diff NO MAN DIFF REQ , RBC 3.96 L, MCV 85.7, MCH 27.7, MCHC 32.3 L, RDW 14.6 H, MPV 7.7, Gran % 64.6, Lymphocytes % 24.8, Monocytes % 8.7, Eosinophils % 1.6, Basophils % 0.3, Absolute Granulocytes 4.2, Absolute Lymphocytes 1.6, Absolute Monocytes 0.6, Absolute Eosinophils 0.1, Absolute Basophils 0 02/12/18 2158: APTT 42 H 02/12/18 0930: APTT 71 H 02/12/18 0402: Anion Gap 9, Estimated GFR 56 L, Glucose 143 H, Calcium 9.1, Phosphorus 4.0, Magnesium 1.9, Total Bilirubin 0.7, AST 15 L, ALT 24, Albumin 3.4 L, CBC w Diff NO MAN DIFF REQ, RBC 4.03 L, MCV 85.7, MCH 27.4, MCHC 32.0 L, RDW 14.5, MPV 8.1, Gran % 61.1, Lymphocytes % 27.5, Monocytes % 8.8, Eosinophils % 2.1, Basophils % 0.5, Absolute Granulocytes 4.1, Absolute Lymphocytes 1.9, Absolute Monocytes 0.6, Absolute Eosinophils 0.1, Absolute Basophils 0 02/11/187: APTT 89 H 02/11/18 0930: APTT 81 H 02/11/18 0345: Anion Gap 8, Estimated GFR 44 L, Glucose 145 H, Calcium 9.3, Phosphorus 4.6 H , Magnesium 2.1, Total Bilirubin 0.8, AST 11 L, ALT 24, Albumin 3.4 L, CBC w Diff NO MAN DIFF REQ, RBC 3.80 L, MCV 86.3, MCH 28.0, MCHC 32.4 L, RDW 14.8 H , MPV 7.8, Gran % 51.3, Lymphocytes % 36.1, Monocytes % 9.1, Eosinophils % 3.3, Basophils % 0.2, Absolute Granulocytes 3.5, Absolute Lymphocytes 2.5, Absolute Monocytes 0.6, Absolute Eosinophils 0.2, Absolute Basophils 0 02/10/18 2040: APTT 77 H 02/10/18 1344: APTT 54 H Vital Signs Date Time Temp Pulse Resp B/P B/P Pulse O2 O2 Flow FiO2 Mean Ox Delivery Rate 02/13 0840 96 Nasal 4.0L Cannula 02/13 0802/13 0802/13 08 04/21 0636 98.1 74 20 122/ 96 Nasal 4.0L Cannula 02/12 2245 90 Nasal 4.0L Cannula 02/12 2200 98.7 76 22 132/78 90 Nasal 4.0L Cannula 02/12 2140 76 132/78 02/12 2140 76 132/78 02/12 2032 96 Nasal 4.0L Cannula 02/12 1600 95 Nasal 4.0L Cannula 02/12 1600 97.2 75 16 122 95 Nasal 4.0L Cannula Intake & Output 02/13 1600 02/13 0800 02/13 0000 Intake Total 616 1155 Output Total 550 350 450 Balance -550 266 705 Intake, IV 496 675 Intake, Oral 120 480 Number 0 0 Bowel Movements Output, Urine 550 350 450 ANUPAMA 1. Aortic sclerosis is present with no valvular stenosis or insufficiency. 2. Mitral leaflet thickening is present with mild mitral insufficiency and left atrial enlargement. Spontaneous contrast is present. 3. THe left atrial appendage is normal with no evidence of thrombus. 4. The pulmonary venous anatomy appears normal. 5. There is no pericardial fluid present. 6. The left ventricular chamber is dilated with global hypokinesia and eccentric hypertrophy with an ejection fraction of approximately 25%. 7. The right heart structures were not optimally assessed. Mild tricuspid and pulmonic insufficiency are present. 8. A PFO is present. Agitated saline injection was not performed. 9. Grade I atheromatous plaque is present in the distal aortic arch and descending thoracic aorta. 10. An illdefined linear mobile echodensity is present in the mid descending thoracic aorta. I suspect that this represents acoustic artifact, however, the possibility of a focal intimal disruption cannot be totally excluded by this examination. Further assessment with a CTA chest is suggested if feasible.
--- NOTE | 2018-02-13 10:42 | PN- Pulmonary ---
Subjective HPI/Critical Care Issues: sob improved Objective Current Medications: Current Medications Sig/Keaton Start time Last Medication Dose Route Stop Time Status Admin Albuterol Sulfate 3 ML TID 02/06 1407 AC 02/13 INH 0836 Albuterol Sulfate 2 PUF Q4-6 PRN PRN 02/06 0230 AC INH Amiodarone HCl 200 MG DAILY 02/15 0900 AC PO Amiodarone HCl 400 MG BID 02/08 1230 AC 02/13 PO 02/15 0000 0817 Ammonium Lactate 1 IDANIA BID 02/10 0900 AC 02/13 TOP 0837 Atorvastatin Calcium 10 MG 1700 02/06 1700 AC 02/12 PO 1532 Carvedilol 25 MG BID 02/06 0900 AC 02/13 PO 0817 Colchicine 600 MCG DAILY 02/06 0900 AC 02/13 PO 0817 Escitalopram Oxalate 5 MG DAILY 02/06 0900 AC 02/13 PO 0817 Ferrous Sulfate 325 MG DAILY 02/06 0900 AC 02/12 PO 1532 Fluticasone 2 SPRAY DAILY 02/06 1000 AC 02/13 Propionate JOAQUIN 0837 Furosemide 60 MG 7:30 AM, & 4:30 PM 02/11 1630 AC 02/13 PO 0817 Gabapentin 400 MG TID 02/06 0900 AC 02/13 PO 0817 Guaifenesin 600 MG Q12 02/07 2100 AC 02/12 PO 2140 Heparin Sodium 25,000 UNIT Q10H 02/12 1215 AC 02/13 (Porcine) IV 0016 Sodium Chloride 500 ML Heparin Sodium 25,000 UNIT Q24H 02/11 1245 DC 02/12 (Porcine) IV 0132 Sodium Chloride 500 ML Heparin Sodium/ 25,000 UNIT .STK-MED ONE 02/12 1237 DC Dextrose IV 02/12 1238 Hydroxyzine HCl 100 MG BID 02/06 2100 AC 02/13 PO 0817 Insulin Aspart 0 TIDAC 02/06 0800 AC 02/12 SC 1730 Ipratropium [place] 2.5 ML TID 02/06 1407 AC 02/13 INH 0836 Ketamine HCl 50 MG .STK-MED ONE 02/12 1243 DC IM 02/12 1244 Lidocaine 5 IDANIA .STK-MED ONE 02/12 1241 DC TOP 02/12 1242 Lisinopril 10 MG DAILY 02/10 0900 AC 02/13 PO 0817 Montelukast Sodium 10 MG 2100 02/06 2100 AC 02/12 PO 2140 Oxycodone/ 2 TAB Q6P PRN 02/11 0815 AC 02/12 Acetaminophen PO 2140 Sodium Chloride 2 SPRAY Q4P PRN 02/06 1545 AC 02/11 JOAQUIN 0826 Vital Signs & I&O Last 24 Hrs of Vitals and I&O: Vital Signs Date Time Temp Pulse Resp B/P B/P Pulse O2 O2 Flow FiO2 Mean Ox Delivery Rate 02/13 0840 96 Nasal 4.0L Cannula 02/13 0817 122/84 02/13 0817 122/84 02/13 0817 122/84 02/13 0636 98.1 74 20 122/84 96 Nasal 4.0L Cannula 02/12 2245 90 Nasal 4.0L Cannula 02/12 2200 98.7 76 22 132/78 90 Nasal 4.0L Cannula 02/12 2140 76 132/78 02/12 2140 76 132/78 02/12 2032 96 Nasal 4.0L Cannula 02/12 1600 95 Nasal 4.0L Cannula 02/12 1600 97.2 75 16 122/78 95 Nasal 4.0L Cannula Intake & Output 02/13 1600 02/13 0800 02/13 0000 Intake Total 616 1155 Output Total 550 350 450 Balance -550 266 705 Intake, IV 496 675 Intake, Oral 120 480 Number 0 0 Bowel Movements Output, Urine 550 350 450 Shows normal S1 and S2 without murmurs extremities have chronic venous stasis changes Impression/Plan Impression/Plan Impression/Plan: 62-year-old morbidly obese gentleman admitted with congestive heart failure. Echo suggests the possibility of aortic dissection. Recommendations: If this is a realistic consideration CT surgery evaluation should be obtained as soon as possible. Patient is developing a contraction metabolic alkalosis can start Diamox. Taper FiO2 his saturations allow. We'll discuss with attending and housestaff
--- NOTE | 2018-02-13 13:51 | CT SCAN REPORT ---
EXAMINATION: CTA CHEST WITHOUT AND WITH CONTRAST CLINICAL INFORMATION: Aortic dissection. COMPARISON: CT chest 02/08/2018.. TECHNIQUE: Aortic dissection CT angiography of the chest, abdomen, pelvis without and with contrast was performed Intravenous contrast: 95 mL Optiray 320 No contrast reaction reported Maximum intensity projection vascular images were produced on the interpreting workstation. Total exam dose-length product 1605 mGy-cm FINDINGS: The examination is mildly limited by cardiac pulsatility. No visible dissection flap is seen with mild limitation in the ascending segment due to cardiac pulsatility. The ascending segment, arch segment, and descending segment of the thoracic aorta are all normal in caliber. No evidence for intramural hematoma. Three-vessel aortic arch. The great vessels are patent. The exam was timed for the aorta. The pulmonary arteries are not well evaluated but there is no central pulmonary embolus. No mediastinal adenopathy. The heart is enlarged. Left subclavian pacer/AICD leads terminating in the right atrium right ventricle and coronary sinus. No significant pericardial effusion. As noted on the previous examination there is complete collapse of the right middle lobe of uncertain etiology. No change in nodular airspace disease in the posterior right upper lobe and new nodular airspace disease in the lower lobe. Findings may reflect aspiration. There is bibasilar atelectasis. The upper abdomen is unremarkable. Degenerative changes in the spine. IMPRESSION: Exam mildly limited by cardiac pulsatility. No aortic dissection seen. No aortic aneurysm. New airspace disease in the right lower lobe and unchanged airspace disease in the posterior right upper lobe. Findings may reflect pneumonia and/or aspiration.
[2018-02-13 14:39] VITALS: BP 110/60
--- NOTE | 2018-02-13 15:40 | Cons- Vascular Surgery ---
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 He also reported having atypical intermittent chest pain at rest, that worsened with cough and inspiration, palpitations, dizziness and dyspnea on exertion. He was contacted by [facility] after a remote pacemaker interrogation revealed he had an elevated heart rate. In the emergency department, he was in atrial fibrillation with rapid ventricular response and was started on an amiodarone drip and heparin drip. His ICD was interrogated and reprogrammed. He was converted via ANUPAMA yesterday where he was noted to possible have aortic dissection. CTA of the chest was preformed today which revealed no evidence of aortic dissection. Allergies/Medications Allergies: Coded Allergies: No Known Allergies (01/08/18) Home Med List: Acetaminophen 500 MG TABLET 1 TAB PO DAILY PRN PAIN PLEASE ALTERNATE WITH NAPROXEN FOR PAIN Albuterol Sulfate (Proair Hfa) 90 MCG HFA.AER.AD 2 PUF INH Q4-6 PRN PRN COPD (Reported) Ammonium Lactate 12 % CREAM..G. 12 % TP BID foot fissures . Carvedilol (Coreg) 25 MG TABLET 1 TAB PO BID HIGH BLOOD PRESSURE (Reported) Colchicine (Colcrys) 0.6 MG TABLET 1 TAB PO DAILY GOUT (Reported) Escitalopram Oxalate 5 MG TABLET 1 TAB PO DAILY MENTAL HEALTH (Reported) Febuxostat (Uloric) 40 MG TABLET 40 MG PO DAILY Gout Ferrous Sulfate 325 MG (65 MG IRON) TABLET 1 TAB PO DAILY anemia Fluticasone/Salmeterol (Advair 500-50 Diskus) 500 MCG-50 MCG/DOSE BLST.W.DEV 1 PUF INH BID COPD (Reported) Furosemide (Lasix) 40 MG TABLET 1 TAB PO QPM DIURETIC (Reported) Furosemide (Lasix) 80 MG TABLET 1 TAB PO QAM DIURETIC (Reported) Gabapentin 400 MG CAPSULE 1 CAP PO TID NEUROPATHY (Reported) Glimepiride 1 MG TABLET 1 TAB PO BID DM (Reported) Hydroxyzine Hydrochloride (Atarax) 50 MG TABLET 2 TAB PO BID MUCUS (Reported) Ipratropium/Albuterol Sulfate (Combivent Respimat Inhal [place]) 20 MCG-100 MCG/ ACTUATION MIST.INHAL 2 PUFF INH BID copd (Reported) Lisinopril 5 MG TABLET 1 TAB PO DAILY BP (Reported) Metformin HCl (Glucophage) 1,000 MG TABLET 1 TAB PO BID DM (Reported) Montelukast Sodium (Singulair) 10 MG TABLET 1 TAB PO DAILY RESPIRATORY ( Reported) Naproxen (Naprosyn) 500 MG TABLET 1 TAB PO DAILY PRN PAIN PLEASE ALTERNATE WITH ACETAMINOPHEN 500 FOR PAIN. Simvastatin (Simvastatin*) 10 MG TABLET 1 TAB PO QPM CHOLESTEROL (Reported) Umeclidinium [place] (Incruse Ellipta) 62.5 MCG/ACTUATION BLST.W.DEV 1 PUFF INH DAILY COPD (Reported) Current Medications: Current Medications Sig/Keaton Start time Last Medication Dose Route Stop Time Status Admin Acetazolamide 250 MG DAILY 02/13 1209 AC 02/13 PO 1441 Albuterol Sulfate 3 ML TID 02/06 1407 AC 02/13 INH 1350 Albuterol Sulfate 2 PUF Q4-6 PRN PRN 02/06 0230 AC INH Amiodarone HCl 200 MG DAILY 02/15 0900 AC PO Amiodarone HCl 400 MG BID 02/08 1230 AC 02/13 PO 02/15 0000 0817 Ammonium Lactate 1 IDANIA BID 02/10 0900 AC 02/13 TOP 0837 Atorvastatin Calcium 10 MG 1700 02/06 1700 AC 02/12 PO 1532 Carvedilol 25 MG BID 02/06 0900 AC 02/13 PO 0817 Colchicine 600 MCG DAILY 02/06 0900 AC 02/13 PO 0817 Escitalopram Oxalate 5 MG DAILY 02/06 0900 AC 02/13 PO 0817 Ferrous Sulfate 325 MG DAILY 02/06 0900 AC 02/13 PO 1043 Fluticasone 2 SPRAY DAILY 02/06 1000 AC 02/13 Propionate JOAQUIN 0837 Furosemide 80 MG 7:30 AM, & 4:30 PM 02/13 1630 AC PO Furosemide 60 MG 7:30 AM, & 4:30 PM 02/11 1630 DC 02/13 PO 0817 Gabapentin 400 MG TID 02/06 0900 AC 02/13 PO 0817 Guaifenesin 600 MG Q12 02/07 2100 AC 02/13 PO 1043 Heparin Sodium 25,000 UNIT Q10H 02/12 1215 AC 02/13 (Porcine) IV 1045 Sodium Chloride 500 ML Hydroxyzine HCl 100 MG BID 02/06 2100 AC 02/13 PO 0817 Insulin Aspart 0 TIDAC 02/06 0800 AC 02/12 SC 1730 Ipratropium [place] 2.5 ML TID 02/06 1407 AC 02/13 INH 1350 Lisinopril 10 MG DAILY 02/10 0900 AC 02/13 PO 0817 Montelukast Sodium 10 MG 2100 02/06 2100 AC 02/12 PO 2140 Oxycodone/ 2 TAB Q6P PRN 02/11 0815 AC 02/12 Acetaminophen PO 2140 Sodium Chloride 250 ML BOLUS ONE 02/13 1130 DC 02/13 IV 02/13 1229 1145 Sodium Chloride 2 SPRAY Q4P PRN 02/06 1545 AC 02/11 JOAQUIN 0826 Past History Medical History Blood Transfusion Hx: Yes Neurological: NONE EENT: NONE Cardiovascular: cardiomyopathy, CHF, chronic venous insuff, hyperlipidemia, CARDIAC ARREST S/P LWC PACER Respiratory: COPD, SLEEP APNEA O2 3.5L NC @ [facility] Gastrointestinal: constipation, peptic ulcer disease, EGD 08/10 showed numerous gastric and duodenal ulcers Hepatic: NONE Renal: benign prost hyperplasia, TEMPORORY DIALYSIS Musculoskeletal: gout, rheumatoid arthritis Psychiatric: NONE Endocrine: diabetes Blood Disorders: anemia Cancer(s): NONE 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 Other Who Do You Live With? self Services at Home: Oxygen Primary Language: Rw[place] Smoking Status: Never Smoked Functional Ability ADLs Independent: dressing, eating, toileting, bathing. Ambulation: independent IADLs Independent: shopping, housework, finances, food prep, telephone, transportation , medication admin. Review of Systems Review of Systems: Constitutional: Reports: no symptoms EENTM: Reports: no symptoms. Cardiovascular: Reports: chest pain. Respiratory: Reports: cough, thurman. GI: Denies: no symptoms. Genitourinary: Reports: no symptoms. Musculoskeletal: Reports: no symptoms. Skin: Reports: no symptoms. Neurological/Psychological: Reports: no symptoms. Hematologic/Endocrine: Reports: no symptoms. Immunologic/Allergic: Reports: no symptoms. All Other Systems: Reviewed and Negative Exam & Diagnostic Data Vital Signs and I&O Vital Signs Date Time Temp Pulse Resp B/P B/P Pulse O2 O2 Flow FiO2 Mean Ox Delivery Rate 02/13 1439 98.9 70 20 110/60 91 Nasal 4.0L Cannula 02/13 0840 96 Nasal 4.0L Cannula 02/13 0817 122/84 02/13 0817 122/84 02/13 0817 122/84 02/13 0800 94 Nasal 4.0L Cannula 02/13 0636 98.1 74 20 122/84 96 Nasal 4.0L Cannula 02/12 2245 90 Nasal 4.0L Cannula 02/12 2200 98.7 76 22 132/78 90 Nasal 4.0L Cannula 02/12 2140 76 132/78 02/12 2140 76 132/78 02/12 2032 96 Nasal 4.0L Cannula 02/12 1600 95 Nasal 4.0L Cannula 02/12 1600 97.2 75 16 122/78 95 Nasal 4.0L Cannula Intake & Output 02/13 1600 02/13 0800 02/13 0000 02/12 1600 02/12 0800 02/12 0000 Intake Total 616 1155 995 418 896 Output Total 550 507 110 6929 2150 2250 Balance -550 266 705 705 -0552 -1354 Intake, IV 496 675 655 418 416 Intake, Oral 120 480 340 480 Number 0 0 0 0 Bowel Movements Output, Urine 550 843 815 5966 2150 2250 Physical Exam: General - resting comfortably with supplemental O2 via nc in place Cardiac - S1S2 noted Lungs - diminished and coarse breath sounds with scant expiratory wheezing Abdomen - Soft, obese nontendr, no palpable masses Extremities - bilateral hyperpigmentation with venous stasis changes and 2+ pitting edema Last 24 Hours of Labs: Laboratory Tests 02/13 02/12 0630 2158 Chemistry Sodium (137 - 145 mmol/L) 141 Potassium (3.5 - 5.1 mmol/L) 4.4 Chloride (98 - 107 mmol/L) 88 L Carbon Dioxide (22 - 30 mmol/L) 45 H Anion Gap (5 - 16) 8 BUN (9 - 20 mg/dL) 28 H Creatinine (0.7 - 1.2 mg/dL) 1.3 H Estimated GFR (>60 ml/min) 56 L Glucose (65 - 99 mg/dL) 129 H Calcium (8.4 - 10.2 mg/dL) 9.7 Phosphorus (2.5 - 4.5 mg/dL) 4.0 Magnesium (1.6 - 2.3 mg/dL) 1.8 Total Bilirubin (0.2 - 1.3 mg/dL) 1.0 AST (17 - 59 U/L) 30 ALT (21 - 72 U/L) 31 Albumin (3.5 - 5.0 g/dL) 3.7 Coagulation APTT (25 - 37 SEC) > 120 *H 42 H Hematology CBC w Diff NO MAN DIFF REQ WBC (4.8 - 10.8 /CUMM) 6.5 RBC (4.70 - 6.10 /CUMM) 3.96 L Hgb (14.0 - 18.0 G/DL) 11.0 L Hct (42 - 52 %) 33.9 L MCV (80.0 - 94.0 FL) 85.7 MCH (27.0 - 31.0 PG) 27.7 MCHC (33.0 - 37.0 G/DL) 32.3 L RDW (11.5 - 14.5 %) 14.6 H Plt Count (130 - 400 /CUMM) 155 MPV (7.4 - 10.4 FL) 7.7 Gran % (42.2 - 75.2 %) 64.6 Lymphocytes % (20.5 - 51.1 %) 24.8 Monocytes % (1.7 - 9.3 %) 8.7 Eosinophils % (0 - 5 %) 1.6 Basophils % (0.0 - 2.0 %) 0.3 Absolute Granulocytes (1.4 - 6.5 /CUMM) 4.2 Absolute Lymphocytes (1.2 - 3.4 /CUMM) 1.6 Absolute Monocytes (0.10 - 0.60 /CUMM) 0.6 Absolute Eosinophils (0.0 - 0.7 /CUMM) 0.1 Absolute Basophils (0.0 - 0.2 /CUMM) 0 Imaging Results: SERVICE DATE: 02/13/18 EXAM TYPE: CAT - CTA CHEST-AORTIC DISSECTION EXAMINATION: CTA CHEST WITHOUT AND WITH CONTRAST CLINICAL INFORMATION: Aortic dissection. COMPARISON: CT chest 02/08/2018.. TECHNIQUE: Aortic dissection CT angiography of the chest, abdomen, pelvis without and with contrast was performed Intravenous contrast: 95 mL Optiray 320 No contrast reaction reported Maximum intensity projection vascular images were produced on the interpreting workstation. Total exam dose-length product 1605 mGy-cm FINDINGS: The examination is mildly limited by cardiac pulsatility. No visible dissection flap is seen with mild limitation in the ascending segment due to cardiac pulsatility. The ascending segment, arch segment, and descending segment of the thoracic aorta are all normal in caliber. No evidence for intramural hematoma. Three-vessel aortic arch. The great vessels are patent. The exam was timed for the aorta. The pulmonary arteries are not well evaluated but there is no central pulmonary embolus. No mediastinal adenopathy. The heart is enlarged. Left subclavian pacer/AICD leads terminating in the right atrium right ventricle and coronary sinus. No significant pericardial effusion. As noted on the previous examination there is complete collapse of the right middle lobe of uncertain etiology. No change in nodular airspace disease in the posterior right upper lobe and new nodular airspace disease in the lower lobe. Findings may reflect aspiration. There is bibasilar atelectasis. The upper abdomen is unremarkable. Degenerative changes in the spine. IMPRESSION: Exam mildly limited by cardiac pulsatility. No aortic dissection seen. No aortic aneurysm. New airspace disease in the right lower lobe and unchanged airspace disease in the posterior right upper lobe. Findings may reflect pneumonia and/or aspiration. Assessment/Plan Assessment/Plan This is a 62 year-old male admitted to the medical service with acute on chronic CHF and afib with RVR and wide complex tachycardia who was converted back to normal sinus rythem with cardioversion. His echo yesterday suggested the possibility of aortic dissection. CTA was obtained today and revealed no evidence of aortic dissection. No surgical intervention is warrented at this time. Continue medical management per primary team No further recommendations. Please contact vascular service if we can be of further assistance. Case discussed with Dr. Alcantar who is in agreement Consult Acknowledgment - Thank you for your consult request.
--- NOTE | 2018-02-13 15:40 | PN- Cardiology ---
Subjective Subjective: * Patient continues to have shortness of breath. * sinus rhythm * Normal size aorta without dissection of chest CT angiogram Objective Vital Signs and I&Os Vital Signs Date Time Temp Pulse Resp B/P B/P Pulse O2 O2 Flow FiO2 Mean Ox Delivery Rate 02/13 1439 98.9 70 20 110/60 91 Nasal 4.0L Cannula 02/13 0840 96 Nasal 4.0L Cannula 02/13 0817 122/84 02/13 0817 122/84 02/13 0817 122/84 02/13 0800 94 Nasal 4.0L Cannula 02/13 0636 98.1 74 20 122/84 96 Nasal 4.0L Cannula 02/12 2245 90 Nasal 4.0L Cannula 02/12 2200 98.7 76 22 132/78 90 Nasal 4.0L Cannula 02/12 2140 76 132/78 02/12 2140 76 132/78 02/12 2032 96 Nasal 4.0L Cannula 02/12 1600 95 Nasal 4.0L Cannula 02/12 1600 97.2 75 16 122/78 95 Nasal 4.0L Cannula Intake & Output 02/13 1600 02/13 0800 02/13 0000 02/12 1600 02/12 0800 02/12 0000 Intake Total 616 1155 995 418 896 Output Total 550 420 802 4134 2150 2250 Balance -550 266 805 -205 -8072 -1354 Intake, IV 496 675 655 418 416 Intake, Oral 120 480 340 480 Number 0 0 0 0 Bowel Movements Output, Urine 550 229 037 0006 2150 2250 Physical Exam: General: WD/obese male in NAD; alert and oriented x 3\ Neck: no obvious JVD Heart: RRR w/o murmur Lungs: clear bilaterally Extremities: 2+ leg edema with venous stasis changes Assessment/Plan Assessment/Plan * No evidence of a descending thoracic aortic dissection on CT angiography. * Patient is in a sinus rhythm. * Continue current medications. Continue telemetry? Yes
[2018-02-13 18:06] LABS: PTT 74 SEC (25-37)
[2018-02-13 22:43] VITALS: BP 116/78
[2018-02-14 05:41] LABS: ABSOLUTE BASOPHIL COUNT 0 /CUMM (0.0-0.2); ABSOLUTE EOSINOPHIL COUNT 0.1 /CUMM (0.0-0.7); ABSOLUTE LYMPH COUNT 2.2 /CUMM (1.2-3.4); ABSOLUTE MONOCYTE COUNT 0.6 /CUMM (0.10-0.60); BASOPHIL % 0.5 % (0.0-2.0); EOSINOPHIL % 2.2 % (0-5); GRANULOCYTE % 50.5 % (42.2-75.2); HEMATOCRIT 33.5 % (42-52); MEAN CORPUSCULAR HGB 27.9 PG (27.0-31.0); MEAN CORPUSCULAR HGB CONC 32.3 G/DL (33.0-37.0); MEAN CORPUSCULAR VOLUME 86.2 FL (80.0-94.0); MEAN PLATELET VOLUME 7.2 FL (7.4-10.4); PLATELET COUNT 158 /CUMM (130-400); RBC DISTRIBUTION WIDTH 14.7 % (11.5-14.5); RED BLOOD CELL CT 3.88 /CUMM (4.70-6.10)
[2018-02-14 06:16] LABS: PTT > 120 SEC (25-37)
[2018-02-14 06:46] VITALS: BP 110/70
--- NOTE | 2018-02-14 09:42 | PN- Pulmonary ---
Subjective HPI/Critical Care Issues: Patient feels somewhat improved with less shortness of breath but continues with congested cough CTA showed no evidence of aortic dissection Objective Current Medications: Current Medications Sig/Keaton Start time Last Medication Dose Route Stop Time Status Admin Acetazolamide 250 MG DAILY 02/13 1209 AC 02/14 PO 0829 Albuterol Sulfate 3 ML TID 02/06 1407 AC 02/14 INH 0807 Albuterol Sulfate 2 PUF Q4-6 PRN PRN 02/06 0230 AC INH Amiodarone HCl 200 MG DAILY 02/15 0900 AC PO Amiodarone HCl 400 MG BID 02/08 1230 AC 02/14 PO 02/15 0000 0839 Ammonium Lactate 1 IDANIA BID 02/10 09 AC 02/14 TOP 0840 Atorvastatin Calcium 10 MG 1700 02/06 1700 AC 02/13 PO 1710 Carvedilol 25 MG BID 02/06 0900 AC 02/14 PO 0838 Colchicine 600 MCG DAILY 02/06 0900 AC 02/14 PO 0828 Escitalopram Oxalate 5 MG DAILY 02/06 09 AC 02/14 PO 0828 Ferrous Sulfate 325 MG DAILY 02/06 0900 AC 02/14 PO 0828 Fluticasone 2 SPRAY DAILY 02/06 1000 AC 02/14 Propionate JOAQUIN 0840 Furosemide 80 MG 7:30 AM, & 4:30 PM 02/13 1630 AC 02/14 PO 0827 Furosemide 60 MG 7:30 AM, & 4:30 PM 02/11 1630 DC 02/13 PO 0817 Gabapentin 400 MG TID 02/06 0900 AC 02/14 PO 0827 Guaifenesin 600 MG Q12 02/07 2100 AC 02/14 PO 0828 Heparin Sodium 25,000 UNIT Q10H 02/12 1215 AC 02/14 (Porcine) IV 0841 Sodium Chloride 500 ML Hydroxyzine HCl 100 MG BID 02/06 2100 AC 02/14 PO 0829 Insulin Aspart 0 TIDAC 02/06 0800 AC 02/13 SC 1710 Ipratropium [place] 2.5 ML TID 02/06 1407 AC 02/14 INH 0807 Lisinopril 10 MG DAILY 02/10 0900 AC 02/14 PO 0838 Montelukast Sodium 10 MG 2100 02/06 2100 AC 02/13 PO 2124 Oxycodone/ 2 TAB Q6P PRN 02/11 0815 AC 02/14 Acetaminophen PO 0826 Sodium Chloride 250 ML BOLUS ONE 02/13 1130 DC 02/13 IV 02/13 1229 1145 Sodium Chloride 2 SPRAY Q4P PRN 02/06 1545 AC 02/11 JOAQUIN 0826 Vital Signs & I&O Last 24 Hrs of Vitals and I&O: Vital Signs Date Time Temp Pulse Resp B/P B/P Pulse O2 O2 Flow FiO2 Mean Ox Delivery Rate 02/14 0839 118/62 02/14 0838 118/62 02/14 0838 118/62 02/14 0835 93 Nasal 4.0L Cannula 02/14 0646 97.6 75 20 110/70 92 Nasal 3.0L Cannula 02/13 2243 98.3 75 18 116/78 96 Nasal 4.0L Cannula 02/130 Nasal 4.0L Cannula 02/14 2124 116/80 02/14 2124 116/80 02/13 2049 90 Nasal 4.0L Cannula 02/13 1439 98.9 70 20 110/60 91 Nasal 4.0L Cannula Intake & Output 02/14 1600 02/14 0800 02/14 0000 Intake Total 896 640 Output Total 750 2600 Balance 146 -1960 Intake, IV 416 Intake, Oral 480 640 Number 0 0 Bowel Movements Output, Urine 750 2600 Since saturation 93% on 4 L exam of his chest shows scattered rhonchi cardiac exam shows regular S1 and S2 without murmurs Impression/Plan Impression/Plan Impression/Plan: 62-year-old gentleman with COPD congestive heart failure is slowly improving with diuresis. He has evidence of worsening acute kidney injury. Bicarbonate is decreased after initiation of Diamox. Recommendations: Daily monitoring of renal function. Continue to hold diuretics with worsening renal function. Would hold Diamox with marked reduction in bicarbonate worsening creatinine. Obtain sputum culture with CT showing right lower lobe infiltrate
--- NOTE | 2018-02-14 11:36 | PN- Att Addend ---
Attending Addendum Attending Brief Note Patient seen and examined. Plan of care discussed with the medical team and the patient. Available lab work and radiology test reports were reviewed. Patient is sitting in chair this morning. He states that he is feeling somewhat better however he wants to his diet be changed so that he can gets some fruit juice. His breathing seems to be better than yesterday. He reports slight decrease in leg edema. Denies any fever or chills nausea or vomiting. He also complains of for coughing with scant sputum production. Patient is status post ANUPAMA and cardioversion 2 days ago . Exam: General: Patient awake alert oriented without any distress CVS: S1 plus S2 without any murmur or gallops Chest: Few scattered crepitation with expiratory wheeze. There is no respiratory distress. Abdomen: Soft non-tender, bowel sound present, no guarding or rebound REPORTING ANALYST: Awake alert oriented without any focal neuro deficit and follows commands appropriately Extremities: 2-3+ bilateral edema; chronic discoloration skin is noted Assessment * A. fib with RVR with aberrancy causing wide complex tachycardia * Acute on chronic heart failure with reduced ejection fraction * Acute on chronic hypoxic respiratory failure, hypercapnia appears chronic * History of DM, * JORY noncompliant with CPAP, * PAD, * COPD 3.5 L NC , * Acute renal failure - creatinine now has worsened to 1.8 likely due to Lasix use; this possibly could be due to cardiorenal syndrome. His creatinine is expected to decrease with diuresis. However if creatinine further may need to hold Lasix. * Rule out aortic dissection based on ANUPAMA findings- CTA was negative for any aortic dissection * Suspected infiltrate based on CTA findings-patient currently does not have any fever chills and his WBC count is normal Plan * Continue Incentive spirometry * Taper oxygen as tolerated * Continue Lasix dose to 80 mg by mouth twice a day * Recheck creatinine tomorrow * Follow-up antibiotic at this point; if his respiratory status worsens or he develops fever I will begin vancomycin and Fortaz Current Medications Sig/Keaton Start time Last Medication Dose Route Stop Time Status Admin Acetazolamide 250 MG DAILY 02/13 1209 AC 02/14 PO 0829 Albuterol Sulfate 3 ML TID 02/06 1407 AC 02/14 INH 0807 Albuterol Sulfate 2 PUF Q4-6 PRN PRN 02/06 0230 AC INH Amiodarone HCl 200 MG DAILY 02/15 0900 AC PO Amiodarone HCl 400 MG BID 02/08 1230 AC 02/14 PO 02/15 0000 0839 Ammonium Lactate 1 IDANIA BID 02/10 0900 AC 02/14 TOP 0840 Atorvastatin Calcium 10 MG 1700 02/06 1700 AC 02/13 PO 1710 Carvedilol 25 MG BID 02/06 0900 AC 02/14 PO 0838 Colchicine 600 MCG DAILY 02/06 09 AC 02/14 PO 0828 Escitalopram Oxalate 5 MG DAILY 02/06 09 AC 02/14 PO 0828 Ferrous Sulfate 325 MG DAILY 02/06 0900 AC 02/14 PO 0828 Fluticasone 2 SPRAY DAILY 02/06 1000 AC 02/14 Propionate JOAQUIN 0840 Furosemide 80 MG 7:30 AM, & 4:30 PM 02/13 1630 AC 02/14 PO 0827 Furosemide 60 MG 7:30 AM, & 4:30 PM 02/11 1630 DC 02/13 PO 0817 Gabapentin 400 MG TID 02/06 09 AC 02/14 PO 0827 Guaifenesin 600 MG Q12 02/07 2100 AC 02/14 PO 0828 Heparin Sodium 25,000 UNIT Q10H 02/12 1215 AC 02/14 (Porcine) IV 0841 Sodium Chloride 500 ML Hydroxyzine HCl 100 MG BID 02/06 2100 AC 02/14 PO 0829 Insulin Aspart 0 TIDAC 02/06 0800 AC 02/13 SC 1710 Ipratropium [place] 2.5 ML TID 02/06 1407 AC 02/14 INH 0807 Lisinopril 10 MG DAILY 02/10 0900 AC 02/14 PO 0838 Montelukast Sodium 10 MG 2100 02/06 2100 AC 02/13 PO 2124 Oxycodone/ 2 TAB Q6P PRN 02/11 0815 AC 02/14 Acetaminophen PO 0826 Sodium Chloride 250 ML BOLUS ONE 02/13 1130 DC 02/13 IV 02/13 1229 1145 Sodium Chloride 2 SPRAY Q4P PRN 02/06 1545 AC 02/11 JOAQUIN 0826 Laboratory Tests 02/14/18 0520: Anion Gap 7, Estimated GFR 39 L, BUN/Creatinine Ratio 16.7, APTT > 120 *H, CBC w Diff NO MAN DIFF REQ, RBC 3.88 L, MCV 86.2, MCH 27.9, MCHC 32.3 L, RDW 14.7 H, MPV 7.2 L, Gran % 50.5, Lymphocytes % 36.4, Monocytes % 10.4 H, Eosinophils % 2.2, Basophils % 0.5, Absolute Granulocytes 3.0, Absolute Lymphocytes 2.2, Absolute Monocytes 0.6, Absolute Eosinophils 0.1, Absolute Basophils 0 02/13/18 1700: APTT 74 H 02/13/18 0630: Anion Gap 8, Estimated GFR 56 L, Glucose 129 H, Calcium 9.7, Phosphorus 4.0, Magnesium 1.8, Total Bilirubin 1.0, AST 30, ALT 31, Albumin 3.7, APTT > 120 *H, CBC w Diff NO MAN DIFF REQ, RBC 3.96 L, MCV 85.7, MCH 27.7, MCHC 32.3 L, RDW 14.6 H, MPV 7.7, Gran % 64.6, Lymphocytes % 24.8, Monocytes % 8.7, Eosinophils % 1.6, Basophils % 0.3, Absolute Granulocytes 4.2, Absolute Lymphocytes 1.6, Absolute Monocytes 0.6, Absolute Eosinophils 0.1, Absolute Basophils 0 02/12/18 2158: APTT 42 H 02/12/18 0930: APTT 71 H 02/12/18 0402: Anion Gap 9, Estimated GFR 56 L, Glucose 143 H, Calcium 9.1, Phosphorus 4.0, Magnesium 1.9, Total Bilirubin 0.7, AST 15 L, ALT 24, Albumin 3.4 L, CBC w Diff NO MAN DIFF REQ, RBC 4.03 L, MCV 85.7, MCH 27.4, MCHC 32.0 L, RDW 14.5, MPV 8.1, Gran % 61.1, Lymphocytes % 27.5, Monocytes % 8.8, Eosinophils % 2.1, Basophils % 0.5, Absolute Granulocytes 4.1, Absolute Lymphocytes 1.9, Absolute Monocytes 0.6, Absolute Eosinophils 0.1, Absolute Basophils 0 02/11/187: APTT 89 H Vital Signs Date Time Temp Pulse Resp B/P B/P Pulse O2 O2 Flow FiO2 Mean Ox Delivery Rate 02/14 0839 118/62 02/14 0838 118/62 02/14 0838 118/62 02/14 0835 93 Nasal 4.0L Cannula 02/14 0646 97.6 75 20 110/70 92 Nasal 3.0L Cannula 02/13 2243 98.3 75 18 116/78 96 Nasal 4.0L Cannula 02/13 2200 Nasal 4.0L Cannula 02/14 2124 116/80 02/14 2124 11680 02/13 2049 90 Nasal 4.0L Cannula 02/13 1439 98.9 70 20 110/60 91 Nasal 4.0L Cannula Intake & Output 02/14 1600 02/14 0800 02/14 0000 Intake Total 896 640 Output Total 750 2600 Balance 146 -1960 Intake, IV 416 Intake, Oral 480 640 Number 0 0 Bowel Movements Output, Urine 750 2600
--- NOTE | 2018-02-14 11:36 | PN- Cardiology ---
Subjective Subjective: * Breathing is slightly improved although the patient reports congestion. * No significant dysrhythmias * creatinine 1.8 Objective Vital Signs and I&Os Vital Signs Date Time Temp Pulse Resp B/P B/P Pulse O2 O2 Flow FiO2 Mean Ox Delivery Rate 02/14 0839 118/62 02/14 0838 118/62 02/14 0838 118/62 02/14 0835 93 Nasal 4.0L Cannula 02/14 0646 97.6 75 20 110/70 92 Nasal 3.0L Cannula 02/13 2243 98.3 75 18 116/78 96 Nasal 4.0L Cannula 02/130 Nasal 4.0L Cannula 02/14 2124 116/80 02/14 2124 116/80 02/13 2049 90 Nasal 4.0L Cannula 02/13 1439 98.9 70 20 110/60 91 Nasal 4.0L Cannula Intake & Output 02/14 1600 02/14 0800 02/14 0000 02/13 1600 02/13 0800 02/13 0000 Intake Total 896 658 985 3184 Output Total 750 2600 1150 350 450 Balance 146 -1960 -1150 266 705 Intake, IV 416 496 675 Intake, Oral 480 640 120 480 Number 0 0 0 0 Bowel Movements Output, Urine 750 2600 1150 350 450 Physical Exam: General: WD/obese male in NAD; alert and oriented x 3 Neck: no obvious JVD Heart: RRR w/o murmur Lungs: clear bilaterally Extremities: 1+ leg edema with venous stasis changes Assessment/Plan Assessment/Plan * No evidence of a descending thoracic aortic dissection on CT angiography. * Patient is in a sinus rhythm. * Agree with holding diuretics in the setting of a rising creatinine Continue telemetry? Yes
--- NOTE | 2018-02-14 12:39 | PN- Housestaff ---
Subjective Follow-up For: A fib with RVR, converted back to NSR with cardioversion Complaints: no complaints Tele-Events Since Last Visit: 74 normal sinus rhythm Subjective: Patient states that he feels "okay" but has been having problems with his pedal neuropathy which bothers him on standing. He states that he feels congested and has a cough. He denies any chest pain or shortness of breath. He had a ANUPAMA cardioversion and is now in normal sinus rhythm. No events overnight. Review of Systems Constitutional: Reports: no symptoms. Musculoskeletal: Reports: joint pain. Skin: Reports: change in skin color, lymphangitis. Neurological/Psychological: Reports: paresthesia. Objective Last 24 Hrs of Vital Signs/I&O Vital Signs Date Time Temp Pulse Resp B/P B/P Pulse O2 O2 Flow FiO2 Mean Ox Delivery Rate 02/14 1554 98/64 02/14 1457 97.8 75 18 84/40 94 Nasal Cannula 02/14 0839 118/62 02/14 0838 118/62 02/14 0838 118/62 02/14 0835 93 Nasal 4.0L Cannula 02/14 0646 97.6 75 20 110/70 92 Nasal 3.0L Cannula 02/13 2243 98.3 75 18 116/78 96 Nasal 4.0L Cannula 02/13 2200 Nasal 4.0L Cannula 02/134 116/80 02/13 2124 116/80 02/13 2049 90 Nasal 4.0L Cannula Intake & Output 02/14 1600 02/14 0800 02/14 0000 Intake Total 896 640 Output Total 9631 894 0328 Balance -1400 146 -1960 Intake, IV 416 Intake, Oral 480 640 Number 0 0 Bowel Movements Output, Urine 9290 046 7871 Physical Exam General Appearance: Alert, Oriented X3, Cooperative, No Acute Distress Skin: No Rashes, lower extremity venous stasis changes Skin Temp/Moisture Exam: Warm/Dry Sepsis Skin Exam (color): Normal for Ethnicity HEENT: Atraumatic, PERRLA, EOMI, Mucous Membr. moist/pink Neck: Supple, No JVD Cardiovascular: Regular Rate, Normal S1, Normal S2, No Murmurs Lungs: Clear to Auscultation, Normal Air Movement Abdomen: Normal Bowel Sounds, Soft, No Tenderness, No Hepatospenomegaly Neurological: Normal Speech Extremities: No Clubbing, No Cyanosis, Normal Pulses Vascular: Normal Pulses, Pulses Symmetrical Current Medications: Current Medications Sig/Keaton Start time Last Medication Dose Route Stop Time Status Admin Acetazolamide 250 MG DAILY 02/13 1209 DC 02/14 PO 0829 Albuterol Sulfate 3 ML TID 02/06 1407 AC 02/14 INH 1424 Albuterol Sulfate 2 PUF Q4-6 PRN PRN 02/06 0230 AC INH Amiodarone HCl 200 MG DAILY 02/15 0900 AC PO Amiodarone HCl 400 MG BID 02/08 1230 AC 02/14 PO 02/15 0000 0839 Ammonium Lactate 1 IDANIA BID 02/10 0900 AC 02/14 TOP 0840 Atorvastatin Calcium 10 MG 1700 02/06 1700 AC 02/14 PO 1637 Carvedilol 25 MG BID 02/06 0900 AC 02/14 PO 0838 Colchicine 600 MCG DAILY 02/06 0900 AC 02/14 PO 0828 Escitalopram Oxalate 5 MG DAILY 02/06 0900 AC 02/14 PO 0828 Ferrous Sulfate 325 MG DAILY 02/06 09 AC 02/14 PO 0828 Fluticasone 2 SPRAY DAILY 02/06 1000 AC 02/14 Propionate JOAQUIN 0840 Furosemide 80 MG 7:30 AM, & 4:30 PM 02/13 1630 DC 02/14 PO 0827 Gabapentin 400 MG TID 02/06 09 AC 02/14 PO 0827 Guaifenesin 600 MG Q12 02/07 2100 AC 02/14 PO 0828 Heparin Sodium 6,912 UNIT ONE ONE 02/14 1620 DC 02/14 (Porcine) IV 02/14 1621 1741 Heparin Sodium 25,000 UNIT Q10H 02/12 1215 AC 02/14 (Porcine) IV 1636 Sodium Chloride 500 ML Hydroxyzine HCl 100 MG BID 02/06 2100 AC 02/14 PO 0829 Insulin Aspart 0 TIDAC 02/06 0800 AC 02/14 SC 1735 Ipratropium [place] 2.5 ML TID 02/06 1407 AC 02/14 INH 1424 Lisinopril 10 MG DAILY 02/10 0900 AC 02/14 PO 0838 Montelukast Sodium 10 MG 2100 02/06 2100 AC 02/13 PO 2124 Oxycodone/ 2 TAB Q6P PRN 02/11 0815 AC 02/14 Acetaminophen PO 0826 Sodium Chloride 2 SPRAY Q4P PRN 02/06 1545 AC 02/11 JOAQUIN 0826 Last 24 Hrs of Lab/Joaquim Results Last 24 Hrs of Labs/Mics: Laboratory Tests 02/14/18 1310: APTT 48 H 02/14/18 0520: Anion Gap 7, Estimated GFR 39 L, BUN/Creatinine Ratio 16.7, APTT > 120 *H, CBC w Diff NO MAN DIFF REQ, RBC 3.88 L, MCV 86.2, MCH 27.9, MCHC 32.3 L, RDW 14.7 H, MPV 7.2 L, Gran % 50.5, Lymphocytes % 36.4, Monocytes % 10.4 H, Eosinophils % 2.2, Basophils % 0.5, Absolute Granulocytes 3.0, Absolute Lymphocytes 2.2, Absolute Monocytes 0.6, Absolute Eosinophils 0.1, Absolute Basophils 0 Microbiology 02/14 1230 LOWER RESP: Respiratory Culture - COLB 02/14 1230 LOWER RESP: Gram Stain - COLB Assessment/Plan Assessment: 62 year old male with a past medical history significant for HFrEF (25-30%) nonischemic cardiomyopathy s/p dual chamber PPM/AICD, 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 Patient was admitted to ICU for atrial fibrillation with rapid ventricular rate requiring amiodarone drip and wide complex tachycardia. Patient was admitted from January 08 to January 15 for right lower extremity cellulitis, heart failure exacerbation and acute kidney injury. After the discharge he became sick again within 3 days and was admitted at [facility] for a few days, then stepdown unit and discharged approximately a week back. He received a call from pacemaker people that his heart rate was running really high and was suggested to go to ER. He was significantly tachycardic at arrival and it was wide complex tachycardia, ECG appears A. fib with aberrancy causing wide complex. When patient is asked if he has a previous history of A. fib he says yes, none of the previous records mention that he has A. fib, he is currently not anticoagulated if he had history of A. fib thus it's unclear whether this is new onset or old but he appears in RVR with aberrancy causing wide complexes. ECG findings were discussed with machine cutter who suggested to start amiodarone drip. Given his high stroke risk he was started on heparin drip. Today, 02/14, patient has an elevated bicarbonate of 44, elevated creatinine of 1.8 up from 1.2 on admission. There was concern for aortic dissection but CTA was negative. The patient has had cardioversion and also has a pacemaker defibrillator. Vitals are stable with a heart rate of 75 and oxygen saturation 92% on 4 L which is his home oxygen. Problem List and Plan: Possible Aortic dissection seen in the descending aorta on ANUPAMA -CTA chest negative for aortic dissection, however there is a new airspace disease of the right lower lobe, patient is afebrile and without leukocytosis, we'll monitor for now. Atrial fibrillation with rapid ventricular response/ WIDE COMPLEXES: Patient presented with worsening shortness of breath, pleuritic chest pain at rest. Received call from pacemaker people that his heart rate was running really high and was suggested to go to the ER. On arrival he was found to have tachycardia, EKG appears A. fib with aberrancy causing wide-complex, tachycardic 130-150. He was hemodynamically stable. He has new onset afib with RVR with aberrancy causing wide complexes. ECG findings were discussed with machine cutter who suggested to start amiodarone drip. Given his high stroke risk/chadsvasc score he was started on heparin drip. S/p cardioversion with transesophageal echocardiogram- 02/12- in sinus now. * Started oral amiodarone 400 mg twice daily, discontinued amiodarone drip. Plan is to give 400 mg amiodarone twice a day for 1 week followed by 200 mg daily and discharge. * Continue IV heparin drip Given his high stroke risk/chadsvasc score. He will be transitioned to Eliquis prior to discharge. * Serial troponins negative * Follow-up echocardiogram showed abnormal left ventricular ejection fraction estimated at 25-30%. * Continue home medication carvedilol * Follow cardiology recommendations * Nurse Case Management consulted: Interrogation of ICD was done, changes were made * Continuous telemetry monitoring * Monitor vitals every shift * Closely monitor blood pressure Patient has 2 episodes of wide complex tachycardia with an ICD in place without shock therapy. One episode was noted in ER at the time of admission and one more episode with 28 beat run on 02/06/2018. Patient was asymptomatic at that time. He has ICD in place. No shock was delivered. The device was interrogated by the [employer] litigation claim representative and found to be functioning properly. It appears as though the patient didn't sustain ventricular tachycardia long enough during any one of these episodes to trigger The device algorhythm for antitachycardia pacing or shock therapy. November 2015- He presented with severe biventricular heart failure at that time. An echocardiogram done on 12/12/2015 showed a severe reduction in LV function with an EF as low as 20%. There was concentric LVH, a dilated right ventricle, a dilated IVC, and a broad left bundle branch block. he was an excellent candidate for cardiac resynchronization therapy given his very broad left bundle branch block. * Nurse Case Management Dr. Willoughby was consulted. * AICD device was interrogated, able to determine that all his arrhythmias seen are due to conduction of atrial fibrillation, not from V. tach * several reprogramming changes were made to his device including increasing his rates and 5 beats minute to allow more biventricular pacing and also placed on conducted A. fib response. Acute on chronic heart failure with reduced ejection fraction Exertional dyspnea most Likely from HFrEF exacerbation precipitated by atrial fibrillation w/ RVR and pulmonary congestion. Patient chest x-ray showed central pulmonary vascular congestion and early interstitial edema. ProBNP elevated 6490. * Hold diuretics for worsening renal function * Daily weights * Ins and outs * Check serial troponin and EKG, ruled out ACS * Neurology Teacher on board * Echo Showed ejection fraction 25% * Continue Coreg 25 twice daily * Continue lisinopril - changed from 5 to 10 mg * Continue atorvastatin * Monitor renal function on intravenous diurectics * Avoid NSAIDs and other nephrotoxins * Maintain potassium above 4 and magnesium about 2 COPD: On 3.5 L nasal cannula/chronic hypercapnic respiratory failure/acute hypoxic respiratory failure Acute on chronic hypoxic respiratory failure most likely from CHF exacerbation and rapid A. fib. CT showed Complete collapse of the right middle lobe of uncertain etiology.Endobronchial lesion\\E\\malignancy should be excluded. Decreased nodular opacities in the posterior aspect of the right upper lobe could reflect a residual or recurrent inflammatory process/pneumonia. * TRC evaluation * Continue supplemental oxygen, wean down as tolerated * Continue advair, singulair * Nebulized albuterol and ipatropium * Chest physiotherapy/Acupella therapy * Mucomyst * Patient needs outpatient CAT scan chest after 2 months * Hold Diamox with marked reduction in bicarbonate worsening creatinine * Obtain sputum culture as CT shows right lower lobe infiltrate * If respiratory status worsens or fever give Vanco/Fortaz JORY: * CPAP-although patient is noncompliant * Check ABG for increased somnolence prn DM: * Hold oral hypoglycemics * Diabetic diet * Accuchecks TIDAC/HS * Novolog sliding scale insulin * Continue gabapentin for neuropathy Gout: * Continue colchicine 0.6 mg. * Avoid giving more than 0.6 mg given drug interaction with amiodarone Depression * continue Lexapro 5 mg daily Hyperlipidemia * Continue Lipitor 10 daily. * Avoid simvastatin given drug interaction with amiodarone stage 2 CKD * Chronic and stable * cr 1.3 * GFR >60 Diabetic diet with 2gram sodium restriction DVT ppx-on IV heparin gtt Problem List: 1. LISETTE (acute kidney injury) 2. Wide-complex tachycardia 3. Afib 4. Chronic venous stasis dermatitis 5. CHF (congestive heart failure) 6. COPD exacerbation Pain Ratin Pain Location: Lower extremities, neuropathy Pain Goal: Pain 4 or less Pain Plan: PATHWAY Tomorrow's Labs & Rationales: CBC and BEP
[2018-02-14 14:57] VITALS: BP 84/40
[2018-02-14 15:19] LABS: PTT 48 SEC (25-37)
[2018-02-14 15:54] VITALS: BP 98/64
[2018-02-14 23:17] VITALS: BP 108/72
[2018-02-14 23:28] LABS: PTT 68 SEC (25-37)
[2018-02-15 07:00] VITALS: BP 108/76
[2018-02-15 08:05] LABS: ABSOLUTE BASOPHIL COUNT 0 /CUMM (0.0-0.2); ABSOLUTE EOSINOPHIL COUNT 0.1 /CUMM (0.0-0.7); ABSOLUTE GRANULOCYTE CT 4.1 /CUMM (1.4-6.5); ABSOLUTE LYMPH COUNT 1.5 /CUMM (1.2-3.4); ABSOLUTE MONOCYTE COUNT 0.7 /CUMM (0.10-0.60); BASOPHIL % 0.4 % (0.0-2.0); EOSINOPHIL % 1.6 % (0-5); GRANULOCYTE % 63.1 % (42.2-75.2); HEMATOCRIT 34.3 % (42-52); MEAN CORPUSCULAR HGB 27.6 PG (27.0-31.0); MEAN CORPUSCULAR HGB CONC 32.2 G/DL (33.0-37.0); MEAN CORPUSCULAR VOLUME 85.6 FL (80.0-94.0); MEAN PLATELET VOLUME 7.7 FL (7.4-10.4); PLATELET COUNT 162 /CUMM (130-400); RBC DISTRIBUTION WIDTH 14.3 % (11.5-14.5); RED BLOOD CELL CT 4.01 /CUMM (4.70-6.10); WHITE BLOOD CELL COUNT 6.4 /CUMM (4.8-10.8)
--- NOTE | 2018-02-15 08:36 | PN- Pulmonary ---
Subjective HPI/Critical Care Issues: He continues to slowly improve with reduced shortness of breath Objective Current Medications: Current Medications Sig/Keaton Start time Last Medication Dose Route Stop Time Status Admin Acetazolamide 250 MG DAILY 02/13 1209 DC 02/14 PO 0829 Albuterol Sulfate 3 ML TID 02/06 1407 AC 02/15 INH 0832 Albuterol Sulfate 2 PUF Q4-6 PRN PRN 02/06 0230 AC INH Amiodarone HCl 200 MG DAILY 02/15 0900 AC 02/15 PO 0817 Amiodarone HCl 400 MG BID 02/08 1230 DC 02/14 PO 02/15 0000 2224 Ammonium Lactate 1 IDANIA BID 02/10 09 AC 02/15 TOP 0823 Atorvastatin Calcium 10 MG 1700 02/06 1700 AC 02/14 PO 1637 Carvedilol 25 MG BID 02/06 0900 AC 02/15 PO 0817 Colchicine 600 MCG DAILY 02/06 0900 AC 02/15 PO 0818 Escitalopram Oxalate 5 MG DAILY 02/06 0900 AC 02/15 PO 0817 Ferrous Sulfate 325 MG DAILY 02/06 0900 AC 02/15 PO 0817 Fluticasone 2 SPRAY DAILY 02/06 1000 AC 02/15 Propionate JOAQUIN 0817 Furosemide 80 MG 7:30 AM, & 4:30 PM 02/13 1630 DC 02/14 PO 0827 Gabapentin 400 MG TID 02/06 0900 AC 02/15 PO 0818 Guaifenesin 600 MG Q12 02/07 2100 AC 02/15 PO 0817 Heparin Sodium 6,912 UNIT ONE ONE 02/14 1620 DC 02/14 (Porcine) IV 02/14 1621 1741 Heparin Sodium 25,000 UNIT Q10H 02/12 1215 AC 02/15 (Porcine) IV 0353 Sodium Chloride 500 ML Hydroxyzine HCl 100 MG BID 02/06 2100 AC 02/15 PO 0818 Insulin Aspart 0 TIDAC 02/06 0800 AC 02/14 SC 1735 Ipratropium [place] 2.5 ML TID 02/06 1407 AC 02/15 INH 0832 Lisinopril 10 MG DAILY 02/10 0900 AC 02/15 PO 0817 Montelukast Sodium 10 MG 2100 02/06 2100 AC 02/14 PO 2221 Oxycodone/ 2 TAB Q6P PRN 02/11 0815 AC 02/14 Acetaminophen PO 0826 Sodium Chloride 2 SPRAY Q4P PRN 02/06 1545 AC 02/11 JOAQUIN 0826 Vital Signs & I&O Last 24 Hrs of Vitals and I&O: Vital Signs Date Time Temp Pulse Resp B/P B/P Pulse O2 O2 Flow FiO2 Mean Ox Delivery Rate 02/15 0817 80 108/76 02/15 0817 80 108/76 02/15 0817 80 108/76 02/15 0700 98.4 74 20 108/76 93 Nasal 4.0L Cannula 02/15 0000 Nasal 4.0L Cannula 02/14 2317 98.6 74 20 108/72 92 Room Air 02/14 2224 77 108/72 02/14 2224 77 108/72 02/14 2048 92 Nasal 4.0L Cannula 02/14 1600 Nasal 4.0L Cannula 02/14 1554 98/64 02/14 1457 97.8 75 18 84/40 94 Nasal Cannula 02/14 0839 118/62 02/14 0838 118/62 02/14 0838 118/62 02/14 0835 93 Nasal 4.0L Cannula Intake & Output 02/15 1600 02/15 0800 02/15 0000 Intake Total 464.8 650 Output Total 450 Balance 464.8 200 Intake, IV 364.8 250 Intake, Oral 100 400 Output, Urine 450 Patient 110 lb Weight Since saturation 93% on 4 L exam of his chest shows decreased rhonchi cardiac exam shows a regular S1 and S2 there is persistent lower extremity edema Impression/Plan Impression/Plan Impression/Plan: 62-year-old gentleman with a combined cardiopulmonary disease being diuresed. He's developed acute kidney injury possibly related to contrast nephropathy. He has compensated History failure and contraction metabolic alkalosis Recommendations: Daily monitoring of renal function. Continue to hold diuretics with worsening renal function. Obtain sputum culture with CT showing right lower lobe infiltrate Taper FiO2 his saturations allow. Case management for discharge planning and probable need for short-term rehabilitation
--- NOTE | 2018-02-15 09:31 | PN- Cardiology ---
Subjective Subjective: The patient reports that he is feeling somewhat better. Breathing is slightly better. Lower extremity edema is slowly improving. No chest pain. No palpitations. No diaphoresis. No nausea or vomiting. Objective Vital Signs and I&Os Vital Signs Date Time Temp Pulse Resp B/P B/P Pulse O2 O2 Flow FiO2 Mean Ox Delivery Rate 02/15 817 80 108/76 02/15 0817 80 108/76 02/15 0817 80 108/76 02/15 0700 98.4 74 20 108/76 93 Nasal 4.0L Cannula 02/15 0000 Nasal 4.0L Cannula 02/14 2317 98.6 74 20 108/72 92 Room Air 02/14 2224 77 108/72 02/14 2224 77 108/72 02/14 2048 92 Nasal 4.0L Cannula 02/14 1600 Nasal 4.0L Cannula 02/14 1554 98/64 02/14 1457 97.8 75 18 84/40 94 Nasal Cannula Intake & Output 02/15 1600 02/15 0800 02/15 0000 02/14 1600 02/14 0800 02/14 0000 Intake Total 464.8 650 896 640 Output Total 450 2711 067 4956 Balance 464.8 200 -1400 146 -1960 Intake, IV 364.8 250 416 Intake, Oral 100 400 480 640 Number 0 0 Bowel Movements Output, Urine 450 4265 947 [id number] Patient 110 lb Weight Physical Exam: Gen: The patient is in no acute distress HEENT: Normal nose, ears, and oropharynx. Pupils equal bilaterally. Conjunctiva normal. Neck: Supple with no JVD, no masses, and no thyromegaly Lungs: Bilateral rhonci with normal respiratory effort Heart: Irregularly irregular, S1, S2, 2/6 systolic murmur. 1+ peripheral edema, 2+ pulses in the lower extremities bilaterally Abdomen: Soft, nontender, no masses. No hepatomegaly. No splenomegaly Extremities: No clubbing or cyanosis. Normal muscle strength in the upper and lower extremities Skin: Normal skin turgor with no skin ulcers or lesions noted. Current Medications: Current Medications Sig/Keaton Start time Last Medication Dose Route Stop Time Status Admin Acetazolamide 250 MG DAILY 02/13 1209 DC 02/14 PO 0829 Albuterol Sulfate 3 ML TID 02/06 1407 AC 02/15 INH 0832 Albuterol Sulfate 2 PUF Q4-6 PRN PRN 02/06 0230 AC INH Amiodarone HCl 200 MG DAILY 02/15 0900 AC 02/15 PO 0817 Amiodarone HCl 400 MG BID 02/08 1230 DC 02/14 PO 02/15 0000 2224 Ammonium Lactate 1 IDANIA BID 02/10 0900 AC 02/15 TOP 0823 Atorvastatin Calcium 10 MG 1700 02/06 1700 AC 02/14 PO 1637 Carvedilol 25 MG BID 02/06 0900 AC 02/15 PO 0817 Colchicine 600 MCG DAILY 02/06 0900 AC 02/15 PO 0818 Escitalopram Oxalate 5 MG DAILY 02/06 0900 AC 02/15 PO 0817 Ferrous Sulfate 325 MG DAILY 02/06 0900 AC 02/15 PO 0817 Fluticasone 2 SPRAY DAILY 02/06 1000 AC 02/15 Propionate JOAQUIN 0817 Furosemide 80 MG 7:30 AM, & 4:30 PM 02/13 1630 DC 02/14 PO 0827 Gabapentin 400 MG TID 02/06 0900 AC 02/15 PO 0818 Guaifenesin 600 MG Q12 02/07 2100 AC 02/15 PO 0817 Heparin Sodium 6,912 UNIT ONE ONE 02/14 1620 DC 02/14 (Porcine) IV 02/14 1621 1741 Heparin Sodium 25,000 UNIT Q10H 02/12 1215 AC 02/15 (Porcine) IV 0353 Sodium Chloride 500 ML Hydroxyzine HCl 100 MG BID 02/06 2100 AC 02/15 PO 0818 Insulin Aspart 0 TIDAC 02/06 0800 AC 02/14 SC 1735 Ipratropium [place] 2.5 ML TID 02/06 1407 AC 02/15 INH 0832 Lisinopril 10 MG DAILY 02/10 0900 DC 02/15 PO 0817 Montelukast Sodium 10 MG 2100 02/06 2100 AC 02/14 PO 2221 Oxycodone/ 2 TAB Q6P PRN 02/11 0815 AC 02/14 Acetaminophen PO 0826 Sodium Chloride 2 SPRAY Q4P PRN 02/06 1545 AC 02/11 JOAQUIN 0826 Results Last 48 Hrs of Labs/Mics: Laboratory Tests 02/15/18 0720: Anion Gap 9, Estimated GFR 39 L, BUN/Creatinine Ratio 19.4, CBC w Diff NO MAN DIFF REQ, RBC 4.01 L, MCV 85.6, MCH 27.6, MCHC 32.2 L, RDW 14.3, MPV 7.7, Gran % 63.1, Lymphocytes % 24.0, Monocytes % 10.9 H, Eosinophils % 1.6, Basophils % 0.4, Absolute Granulocytes 4.1, Absolute Lymphocytes 1.5, Absolute Monocytes 0.7 H, Absolute Eosinophils 0.1, Absolute Basophils 0 02/14/18 2310: APTT 68 H 02/14/18 1310: APTT 48 H 02/14/18 0520: Anion Gap 7, Estimated GFR 39 L, BUN/Creatinine Ratio 16.7, APTT > 120 *H, CBC w Diff NO MAN DIFF REQ, RBC 3.88 L, MCV 86.2, MCH 27.9, MCHC 32.3 L, RDW 14.7 H, MPV 7.2 L, Gran % 50.5, Lymphocytes % 36.4, Monocytes % 10.4 H, Eosinophils % 2.2, Basophils % 0.5, Absolute Granulocytes 3.0, Absolute Lymphocytes 2.2, Absolute Monocytes 0.6, Absolute Eosinophils 0.1, Absolute Basophils 0 02/13/18 1700: APTT 74 H Recent Imaging Studies: ANUPAMA: 1. Aortic sclerosis is present with no valvular stenosis or insufficiency. 2. Mitral leaflet thickening is present with mild mitral insufficiency and left atrial enlargement. Spontaneous contrast is present. 3. THe left atrial appendage is normal with no evidence of thrombus. 4. The pulmonary venous anatomy appears normal. 5. There is no pericardial fluid present. 6. The left ventricular chamber is dilated with global hypokinesia and eccentric hypertrophy with an ejection fraction of approximately 25%. 7. The right heart structures were not optimally assessed. Mild tricuspid and pulmonic insufficiency are present. 8. A PFO is present. Agitated saline injection was not performed. 9. Grade I atheromatous plaque is present in the distal aortic arch and descending thoracic aorta. 10. An illdefined linear mobile echodensity is present in the mid descending thoracic aorta. I suspect that this represents acoustic artifact, however, the possibility of a focal intimal disruption cannot be totally excluded by this examination. Further assessment with a CTA chest is suggested if feasible. CTA chest: Exam mildly limited by cardiac pulsatility. No aortic dissection seen. No aortic aneurysm. New airspace disease in the right lower lobe and unchanged airspace disease in the posterior right upper lobe. Findings may reflect pneumonia and/or aspiration. Assessment/Plan Assessment/Plan Assessment: 1. Acute on chronic HFrEF secondary to non ischemic cardiomyopathy. 2. AICD 3. Chronic venous insufficiency with LE edema and stasis changes 4. New onset atrial fibrillation, rate currently under control 5. Wide complex tachycardia, secondary to atrial fibrillation with aberrant conduction Plan: * Diuretics on hold for acute kidney injury * Would start Eliquis 5 mg p.o. twice daily, and discontinue IV heparin when the first dose of Eliquis is given. Based on the age, weight, and kidney function, the full dose of Eliquis should be given * Continue other cardiac medications. Continue telemetry? Yes
--- NOTE | 2018-02-15 12:04 | PN- Housestaff ---
Grace HARPER,Mile 02/15/18 1204: Subjective Follow-up For: A fib with RVR, converted back to NSR with cardioversion Complaints: no complaints Tele-Events Since Last Visit: Patient paced at a rate 75-82. Subjective: Patient states that he is extremely fatigued. He complains of pain in his lower extremities. Overnight blood sugars were 143. Blood pressure stable at this morning. Review of Systems Constitutional: Reports: weakness. EENTM: Reports: no symptoms. Cardiovascular: Reports: no symptoms. Respiratory: Reports: short of breath. Gastrointestinal: Reports: no symptoms. Genitourinary: Reports: no symptoms. Musculoskeletal: Reports: no symptoms. Skin: Reports: change in skin color. Neurological/Psychological: Reports: no symptoms. Hematologic/Endocrine: Reports: no symptoms. Objective Last 24 Hrs of Vital Signs/I&O Vital Signs Date Time Temp Pulse Resp B/P B/P Pulse O2 O2 Flow FiO2 Mean Ox Delivery Rate 02/15 1436 98.0 74 20 108/60 93 Nasal Cannula 02/15 1356 94 Nasal 3.5L Cannula 02/15 0830 97 Nasal 4.0L Cannula 02/15 0817 80 108/76 02/15 0817 80 108/76 02/15 0817 80 108/76 02/15 0800 97 Nasal 4.0L Cannula 02/15 0700 98.4 74 20 108/76 93 Nasal 4.0L Cannula 02/15 0000 Nasal 4.0L Cannula 02/14 2317 98.6 74 20 108/72 92 Room Air 02/14 2224 77 108/72 02/14 2224 77 108/72 02/14 2048 92 Nasal 4.0L Cannula Intake & Output 02/15 1600 02/15 0800 02/15 0000 Intake Total 800 464.8 650 Output Total 550 450 Balance 250 464.8 200 Intake, IV 400 364.8 250 Intake, Oral 400 100 400 Output, Urine 550 450 Patient 380 lb 110 lb Weight Physical Exam General Appearance: Alert, Oriented X3, Cooperative, No Acute Distress Skin: No Rashes, right lower extremity ulcer Skin Temp/Moisture Exam: Warm/Dry Sepsis Skin Exam (color): Normal for Ethnicity HEENT: Atraumatic, PERRLA, EOMI, Mucous Membr. moist/pink Cardiovascular: Regular Rate, Normal S1, Normal S2 Lungs: Clear to Auscultation Abdomen: Normal Bowel Sounds, Soft Neurological: Normal Speech Extremities: No Clubbing, No Cyanosis, bilateral lower extremity edema that has slightly resolved from yesterday. Vascular: Normal Pulses, Pulses Symmetrical Current Medications: Current Medications Sig/Keaton Start time Last Medication Dose Route Stop Time Status Admin Albuterol Sulfate 3 ML TID 02/06 1407 AC 02/15 INH 1331 Albuterol Sulfate 2 PUF Q4-6 PRN PRN 02/06 0230 AC INH Amiodarone HCl 200 MG DAILY 02/15 0900 AC 02/15 PO 0817 Amiodarone HCl 400 MG BID 02/08 1230 DC 02/14 PO 02/15 0000 2224 Ammonium Lactate 1 IDANIA BID 02/10 0900 AC 02/15 TOP 0823 Apixaban 5 MG BID 02/15 1453 AC 02/15 PO 1556 Atorvastatin Calcium 10 MG 1700 02/06 1700 AC 02/15 PO 1556 Carvedilol 25 MG BID 02/06 0900 AC 02/15 PO 0817 Colchicine 600 MCG DAILY 02/06 0900 AC 02/15 PO 0818 Escitalopram Oxalate 5 MG DAILY 02/06 0900 AC 02/15 PO 0817 Ferrous Sulfate 325 MG DAILY 02/06 0900 AC 02/15 PO 0817 Fluticasone 2 SPRAY DAILY 02/06 1000 AC 02/15 Propionate JOAQUIN 0817 Gabapentin 400 MG TID 02/06 0900 AC 02/15 PO 1309 Guaifenesin 600 MG Q12 02/07 2100 AC 02/15 PO 0817 Heparin Sodium 25,000 UNIT Q10H 02/12 1215 DC 02/15 (Porcine) IV 1427 Sodium Chloride 500 ML Hydroxyzine HCl 100 MG BID 02/06 2100 AC 02/15 PO 0818 Insulin Aspart 0 TIDAC 02/06 0800 AC 02/15 SC 1308 Ipratropium [place] 2.5 ML TID 02/06 1407 AC 02/15 INH 1331 Lisinopril 10 MG DAILY 02/10 0900 DC 02/15 PO 0817 Montelukast Sodium 10 MG 2100 02/06 2100 AC 02/14 PO 2221 Oxycodone/ 2 TAB Q6P PRN 02/11 0815 AC 02/15 Acetaminophen PO 1424 Sodium Chloride 2 SPRAY Q4P PRN 02/06 1545 AC 02/11 JOAQUIN 0826 Last 24 Hrs of Lab/Joaquim Results Last 24 Hrs of Labs/Mics: Laboratory Tests 02/15/18 1140: APTT 52 H 02/15/18 0720: Anion Gap 9, Estimated GFR 39 L, BUN/Creatinine Ratio 19.4, CBC w Diff NO MAN DIFF REQ, RBC 4.01 L, MCV 85.6, MCH 27.6, MCHC 32.2 L, RDW 14.3, MPV 7.7, Gran % 63.1, Lymphocytes % 24.0, Monocytes % 10.9 H, Eosinophils % 1.6, Basophils % 0.4, Absolute Granulocytes 4.1, Absolute Lymphocytes 1.5, Absolute Monocytes 0.7 H, Absolute Eosinophils 0.1, Absolute Basophils 0 02/14/18 2310: APTT 68 H Assessment/Plan Assessment: 62 year old male with a past medical history significant for HFrEF (25-30%) nonischemic cardiomyopathy s/p dual chamber PPM/AICD, 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 Patient was admitted to ICU for atrial fibrillation with rapid ventricular rate requiring amiodarone drip and wide complex tachycardia. Patient was admitted from January 08 to January 15 for right lower extremity cellulitis, heart failure exacerbation and acute kidney injury. After the discharge he became sick again within 3 days and was admitted at [facility] for a few days, then stepdown unit and discharged approximately a week back. He received a call from pacemaker people that his heart rate was running really high and was suggested to go to ER. He was significantly tachycardic at arrival and it was wide complex tachycardia, ECG appears A. fib with aberrancy causing wide complex. When patient is asked if he has a previous history of A. fib he says yes, none of the previous records mention that he has A. fib, he was not anticoagulated if he had history of A. fib thus it was unclear whether it was new onset or old but he appeared in RVR with aberrancy causing wide complexes. ECG findings were discussed with director of supply chain who suggested to start amiodarone drip. Given his high stroke risk he was started on heparin drip. Over the weekend, patient was stable save for increasing creatinine status post contrast. There was concern for aortic dissection but CTA was negative. The patient has had cardioversion and also has a pacemaker defibrillator. Vitals are stable with a heart rate of 74 and oxygen saturation 93% on 4 L which is his home oxygen. The patient is diuresis dependent, has HFrEF 25%-30%. However with the elevated Cr, we held lasix, diamox, lisinopril. Urine output was good overnight however. BP stable at 108/76. BS overnight 143. Problem List and Plan: Possible Aortic dissection seen in the descending aorta on ANUPAMA -CTA chest negative for aortic dissection, however there is a new airspace disease of the right lower lobe, patient is afebrile and without leukocytosis, we decided to monitor for now. Atrial fibrillation with rapid ventricular response/ WIDE COMPLEXES: Patient presented with worsening shortness of breath, pleuritic chest pain at rest. Received call from pacemaker people that his heart rate was running really high and was suggested to go to the ER. On arrival he was found to have tachycardia, EKG appears A. fib with aberrancy causing wide-complex, tachycardic 130-150. He was hemodynamically stable. ECG findings were discussed with director of supply chain who suggested to start amiodarone drip. Given his high stroke risk/ chadsvasc score he was started on heparin drip. S/p cardioversion with transesophageal echocardiogram- 02/12- in sinus now. * Started oral amiodarone 400 mg twice daily, discontinued amiodarone drip. TODAY WE SWITCHED AMIO TO 200MG DAILY. * Continue IV heparin drip Given his high stroke risk/chadsvasc score. WE STOPPED HEPARIN TODAY AND STARTED ELIQUIS 5MG BID. * Serial troponins negative * Follow-up echocardiogram showed abnormal left ventricular ejection fraction estimated at 25-30%. * Continue home medication carvedilol * Follow cardiology recommendations * [employer] Developer consulted: Interrogation of ICD was done, changes were made * Continuous telemetry monitoring * Monitor vitals every shift * Closely monitor blood pressure Patient has 2 episodes of wide complex tachycardia with an ICD in place without shock therapy. One episode was noted in ER at the time of admission and one more episode with 28 beat run on 02/06/2018. Patient was asymptomatic at that time. He has ICD in place. No shock was delivered. The device was interrogated by the [employer] practice representative and found to be functioning properly. It appears as though the patient didn't sustain ventricular tachycardia long enough during any one of these episodes to trigger The device algorhythm for antitachycardia pacing or shock therapy. November 2015- He presented with severe biventricular heart failure at that time. An echocardiogram done on 12/12/2015 showed a severe reduction in LV function with an EF as low as 20%. There was concentric LVH, a dilated right ventricle, a dilated IVC, and a broad left bundle branch block. he was an excellent candidate for cardiac resynchronization therapy given his very broad left bundle branch block. * [employer] Hrms Developer Dr. Willoughby was consulted. * AICD device was interrogated, able to determine that all his arrhythmias seen are due to conduction of atrial fibrillation, not from V. tach * several reprogramming changes were made to his device including increasing his rates and 5 beats minute to allow more biventricular pacing and also placed on conducted A. fib response. Acute on chronic heart failure with reduced ejection fraction Exertional dyspnea most Likely from HFrEF exacerbation precipitated by atrial fibrillation w/ RVR and pulmonary congestion. Patient chest x-ray showed central pulmonary vascular congestion and early interstitial edema. ProBNP elevated 6490. * Continue to hold diuretics for worsening renal function * Daily weights * Ins and outs * Check serial troponin and EKG, ruled out ACS * Talent Advisor on board * Echo Showed ejection fraction 25% * Continue Coreg 25 twice daily * Continue lisinopril - changed from 5 to 10 mg * Continue atorvastatin * Monitor renal function on intravenous diurectics * Avoid NSAIDs and other nephrotoxins * Maintain potassium above 4 and magnesium about 2 COPD: On 3.5 L nasal cannula/chronic hypercapnic respiratory failure/acute hypoxic respiratory failure Acute on chronic hypoxic respiratory failure most likely from CHF exacerbation and rapid A. fib. CT showed Complete collapse of the right middle lobe of uncertain etiology.Endobronchial lesion\E\malignancy should be excluded. Decreased nodular opacities in the posterior aspect of the right upper lobe could reflect a residual or recurrent inflammatory process/pneumonia. * TRC evaluation * Continue supplemental oxygen, wean down as tolerated * Continue advair, singulair * Nebulized albuterol and ipatropium * Chest physiotherapy/Acupella therapy * Mucomyst * Patient needs outpatient CAT scan chest after 2 months * Hold Diamox with marked reduction in bicarbonate worsening creatinine * Obtain sputum culture as CT shows right lower lobe infiltrate * If respiratory status worsens or fever give Vanco/Fortaz JORY: * CPAP-although patient is noncompliant * Check ABG for increased somnolence prn DM: * Hold oral hypoglycemics * Diabetic diet * Accuchecks TIDAC/HS * Novolog sliding scale insulin * Continue gabapentin for neuropathy Gout: * Continue colchicine 0.6 mg. * Avoid giving more than 0.6 mg given drug interaction with amiodarone Depression * continue Lexapro 5 mg daily Hyperlipidemia * Continue Lipitor 10 daily. * Avoid simvastatin given drug interaction with amiodarone LISETTE ON STAGE 2 CKD * Most likely secondary to contrast induced nephropathy but also could be cardiorenal syndrome or medication induced. * Cr has increased from 1.3 to 1.8 yesterday and today again is 1.8. * We have held lisinopril, diamox, and lasix for worsening renal function. Diabetic diet with 2gram sodium restriction DVT ppx-on IV heparin gtt Problem List: 1. Wide-complex tachycardia 2. Afib 3. LISETTE (acute kidney injury) Pain Ratin Pain Location: lower extremities Pain Goal: Pain 4 or less Pain Plan: pathway Tomorrow's Labs & Rationales: cbc bep NeelJanelle rosen 02/15/18 1318: Attending MD Review Statement Attending Statement Attending MD Statement: examined this patient, discuss w/resident/PA/DIVER TENDER, agreed w/resident/PA/DIVER TENDER, discussed with family, reviewed EMR data (avail), discussed with nursing, discussed with case mgmt, reviewed images, amended to note Attending Assessment/Plan: 62 o/m transferred from ICU initially for afib with aberrant condcution causing wide complex tachycardia requiring iv amiodarone and now transitioned to PO amidarone. Acute on chronic heart failure systolic compensated. Acute on chronic hypoxic respiratory failure, hypercapnia appears chronic. Acute renal failure - creatinine now has worsened to 1.8 likely due to Lasix use ; this possibly could be due to cardiorenal syndrome or doubftful contrast induced nephropathy. LASIX HELD as per cardiology. Consult nephrology. (Lasix use if ok with nephrology) History of DM RISS and titrae insulin as needed JORY noncompliant with CPAP, encourage compliance PAD no acute issues, chronic venous stasis. COPD not in exacerbation. stable. Monitor creatinine for now and taper oxygen supplementation.
[2018-02-15 12:35] LABS: PTT 52 SEC (25-37)
[2018-02-15 14:36] VITALS: BP 108/60
--- NOTE | 2018-02-15 16:51 | Cons- Nephrology ---
General Information and HPI Consulting Request Date of Consult: 02/15/18 Requested By: Jsesica HARPER,Owen Stahl Reason for Consult: LISETTE Source of Information: patient, old records Exam Limitations: poor historian History of Present Illness: I have been asked to see this 62-year-old man because of LISETTE. He was admitted on 02/06 with wide complex tachycardia felt to be consistent with atrial fibrillation with rapid ventricular response. He has a background of a dilated cardiomyopathy (LVEF 15-20%), CHF, status post AICD/PPM, type 2 diabetes mellitus, hypertension, oxygen dependent COPD, morbid obesity, obstructive sleep apnea, chronic lower extremity edema usually more pronounced on the left, recurrent pneumonias and a history of normal renal function with a bout of acute kidney injury in 2016 (creatinine over 5) in setting of hypotension, urosepsis and NSAID exposure at that time with associated severe metabolic acidosis, requiring temporary hemodialysis and transferred to year ago where his renal failure ultimately resolved. More recently his creatinine has been as low as 1.0 on February 07, temporarily juan to 1.6 before coming back down to 1.3 on 02/13 and then rising to 1.8 yesterday and today prompting this consultation request. Of note is the fact that on 02/14 his blood pressure was as low as 84/40 subsequently rising to 108/72. He was also exposed to parenteral contrast during a CTA which was performed on 02/13. With regard to his atrial fibrillation, he was electronically converted to normal sinus rhythm (ANUPAMA) on . Past medical history is as noted above Medications: See below Allergies: No known drug allergies Family history negative for any known kidney disease in his parents or other family members Social history: He is apparently currently homeless, living out of his car. He denies cigarette smoking, alcohol abuse or drug abuse. Allergies/Medications Allergies: Coded Allergies: No Known Allergies (01/08/18) Home Med List: Acetaminophen 500 MG TABLET 1 TAB PO DAILY PRN PAIN PLEASE ALTERNATE WITH NAPROXEN FOR PAIN Albuterol Sulfate (Proair Hfa) 90 MCG HFA.AER.AD 2 PUF INH Q4-6 PRN PRN COPD (Reported) Ammonium Lactate 12 % CREAM..G. 12 % TP BID foot fissures . Carvedilol (Coreg) 25 MG TABLET 1 TAB PO BID HIGH BLOOD PRESSURE (Reported) Colchicine (Colcrys) 0.6 MG TABLET 1 TAB PO DAILY GOUT (Reported) Escitalopram Oxalate 5 MG TABLET 1 TAB PO DAILY MENTAL HEALTH (Reported) Febuxostat (Uloric) 40 MG TABLET 40 MG PO DAILY Gout Ferrous Sulfate 325 MG (65 MG IRON) TABLET 1 TAB PO DAILY anemia Fluticasone/Salmeterol (Advair 500-50 Diskus) 500 MCG-50 MCG/DOSE BLST.W.DEV 1 PUF INH BID COPD (Reported) Furosemide (Lasix) 40 MG TABLET 1 TAB PO QPM DIURETIC (Reported) Furosemide (Lasix) 80 MG TABLET 1 TAB PO QAM DIURETIC (Reported) Gabapentin 400 MG CAPSULE 1 CAP PO TID NEUROPATHY (Reported) Glimepiride 1 MG TABLET 1 TAB PO BID DM (Reported) Hydroxyzine Hydrochloride (Atarax) 50 MG TABLET 2 TAB PO BID MUCUS (Reported) Ipratropium/Albuterol Sulfate (Combivent Respimat Inhal [place]) 20 MCG-100 MCG/ ACTUATION MIST.INHAL 2 PUFF INH BID copd (Reported) Lisinopril 5 MG TABLET 1 TAB PO DAILY BP (Reported) Metformin HCl (Glucophage) 1,000 MG TABLET 1 TAB PO BID DM (Reported) Montelukast Sodium (Singulair) 10 MG TABLET 1 TAB PO DAILY RESPIRATORY ( Reported) Naproxen (Naprosyn) 500 MG TABLET 1 TAB PO DAILY PRN PAIN PLEASE ALTERNATE WITH ACETAMINOPHEN 500 FOR PAIN. Simvastatin (Simvastatin*) 10 MG TABLET 1 TAB PO QPM CHOLESTEROL (Reported) Umeclidinium [place] (Incruse Ellipta) 62.5 MCG/ACTUATION BLST.W.DEV 1 PUFF INH DAILY COPD (Reported) Review of Systems Review of Systems: Gen.: Appetite good, weight without significant change by the patient's estimation Skin: No jaundice; chronic discoloration left lower extremity HEENT: No visual or hearing disturbances, no discharge Cardiopulmonary: Chronic shortness of breath and cough, no chest pain; oxygen dependent GI: No nausea, vomiting, abdominal pain, diarrhea : No dysuria, hematuria or other symptoms referable to the urinary tract Musculoskeletal: No arthralgias, arthritis, myalgias; chronic lower extremity edema more pronounced on left Neuro: No altered mental status, paresthesias Past History Travel History Traveled to [place] past 21 day No Medical History Blood Transfusion Hx: Yes Neurological: NONE EENT: NONE Cardiovascular: cardiomyopathy, CHF, chronic venous insuff, hyperlipidemia, CARDIAC ARREST S/P [facility] PACER Respiratory: COPD, SLEEP APNEA O2 3.5L NC @ BASELINE Gastrointestinal: constipation, peptic ulcer disease, EGD 08/10 showed numerous gastric and duodenal ulcers Hepatic: NONE Renal: benign prost hyperplasia, TEMPORORY DIALYSIS Musculoskeletal: gout, rheumatoid arthritis Psychiatric: NONE Endocrine: diabetes Blood Disorders: anemia Cancer(s): NONE PARAPLANNER/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 Other Who Do You Live With? self Services at Home: Oxygen Primary Language: [place] Smoking Status: Never Smoked Functional Ability ADLs Independent: dressing, eating, toileting, bathing. Ambulation: independent IADLs Independent: shopping, housework, finances, food prep, telephone, transportation , medication admin. Exam & Diagnostic Data Vital Signs and I&O Vital Signs Date Time Temp Pulse Resp B/P B/P Pulse O2 O2 Flow FiO2 Mean Ox Delivery Rate 02/15 1436 98.0 74 20 108/60 93 Nasal Cannula 02/15 1356 94 Nasal 3.5L Cannula 02/15 0830 97 Nasal 4.0L Cannula 02/15 0817 80 108/76 02/15 0817 80 108/76 02/15 0817 80 108/76 02/15 0800 97 Nasal 4.0L Cannula 02/15 0700 98.4 74 20 108/76 93 Nasal 4.0L Cannula 02/15 0000 Nasal 4.0L Cannula 02/14 2317 98.6 74 20 108/72 92 Room Air 02/14 2224 77 108/72 02/14 2224 77 108/72 02/14 2048 92 Nasal 4.0L Cannula Intake & Output 02/15 1600 02/15 0400 02/14 1600 02/14 0400 02/13 1600 02/13 0400 Intake Total 1264.8 650 896 542 729 3883 Output Total 697 952 3076 2600 1500 450 Balance 714.8 200 -1254 -1960 -884 705 Intake, IV 764.8 250 416 496 675 Intake, Oral 500 400 480 640 120 480 Number 0 0 0 0 Bowel Movements Output, Urine 606 955 4987 2600 1500 450 Patient 380 lb 110 lb Weight Physical Exam: General: Well-developed, morbidly obese white male on nasal O2 Skin: No jaundice; chronic hyperpigmentation changes in the left lower extremity likely due to stasis HEENT: Conjunctivae pink, sclerae anicteric, mucous membranes moist Neck: Without masses or thyromegaly, no supraclavicular or cervical adenopathy Chest: Poor air entry with bilateral wheezes and rhonchi Heart: Regular rate and rhythm without S3 or rub; there is an AICD/pacemaker device in place Abdomen: Obese, soft and nontender without palpable masses or organomegaly Extremities: Bilateral lower extremity edema left worse than right with overlying hyperpigmentation and skin changes primarily on the left Neuro: Awake and alert but nods off easily, no focal findings, no asterixis or myoclonus Assessment/Plan Assessment/Recommendations Assessment: 62-year-old gentleman with a multitude of severe medical problems including a dilated cardiomyopathy, CHF, electrical cardioversion of atrial fibrillation (on 02/12), morbid obesity with severe COPD and obstructive sleep apnea, a history of dialysis-requiring LISETTE in 2016 from which she recovered, and now another bout of LISETTE (much less severe than in 2016) which I suspect is primarily on the hemodynamic basis due to transient severe low blood pressure but also with a possible contribution of contrast exposure. Fortunately, his urine output has been excellent and serum creatinine may have reached a plateau. Recommendations: 1. Check fractional excretion of sodium and a urinalysis 2. No diuretics for the moment and certainly no NSAIDs or further contrast exposure 3. Continue to monitor intake and output, chemistries daily 4. Would not bother with a renal ultrasound at this time as obstruction is relatively unlikely and the procedure would be very difficult to perform as well as to interpret 5. Management of his cardiomyopathy and dysrhythmia per Cardiology Thank you. Will follow along with you.
[2018-02-15 22:00] VITALS: BP 100/60
[2018-02-16 07:23] VITALS: BP 114/60
[2018-02-16 08:00] LABS: ABSOLUTE BASOPHIL COUNT 0 /CUMM (0.0-0.2); ABSOLUTE EOSINOPHIL COUNT 0.1 /CUMM (0.0-0.7); ABSOLUTE GRANULOCYTE CT 3.5 /CUMM (1.4-6.5); ABSOLUTE LYMPH COUNT 1.4 /CUMM (1.2-3.4); ABSOLUTE MONOCYTE COUNT 0.6 /CUMM (0.10-0.60); BASOPHIL % 0.3 % (0.0-2.0); EOSINOPHIL % 2.1 % (0-5); HEMATOCRIT 34.3 % (42-52); MEAN CORPUSCULAR HGB CONC 32.8 G/DL (33.0-37.0); MEAN CORPUSCULAR VOLUME 85.5 FL (80.0-94.0); MEAN PLATELET VOLUME 7.5 FL (7.4-10.4); PLATELET COUNT 163 /CUMM (130-400); RBC DISTRIBUTION WIDTH 15.3 % (11.5-14.5); RED BLOOD CELL CT 4.01 /CUMM (4.70-6.10); WHITE BLOOD CELL COUNT 5.6 /CUMM (4.8-10.8)
--- NOTE | 2018-02-16 08:14 | PN- Pulmonary ---
Subjective HPI/Critical Care Issues: Cough remains productive. Sputum is growing non-lactose fermenting gram- negative rods Objective Current Medications: Current Medications Sig/Keaton Start time Last Medication Dose Route Stop Time Status Admin Albuterol Sulfate 3 ML TID 02/06 1407 AC 02/15 INH 1925 Albuterol Sulfate 2 PUF Q4-6 PRN PRN 02/06 0230 AC INH Amiodarone HCl 200 MG DAILY 02/15 0900 AC 02/16 PO 0805 Ammonium Lactate 1 IDANIA BID 02/10 0900 AC 02/16 TOP 0811 Apixaban 5 MG BID 02/15 1453 AC 02/16 PO 0804 Atorvastatin Calcium 10 MG 1700 02/06 1700 AC 02/15 PO 1556 Carvedilol 25 MG BID 02/06 0900 AC 02/16 PO 0804 Colchicine 600 MCG DAILY 02/06 0900 AC 02/16 PO 0805 Escitalopram Oxalate 5 MG DAILY 02/06 0900 AC 02/16 PO 0804 Ferrous Sulfate 325 MG DAILY 02/06 0900 AC 02/16 PO 0804 Fluticasone 2 SPRAY DAILY 02/06 1000 AC 02/16 Propionate JOAQUIN 0805 Gabapentin 400 MG TID 02/06 0900 AC 02/16 PO 0805 Guaifenesin 600 MG Q12 02/07 2100 AC 02/16 PO 0804 Heparin Sodium 25,000 UNIT Q10H 02/12 1215 DC 02/15 (Porcine) IV 1427 Sodium Chloride 500 ML Hydroxyzine HCl 100 MG BID 02/06 2100 AC 02/16 PO 0805 Insulin Aspart 0 TIDAC 02/06 0800 AC 02/16 SC 0806 Ipratropium [place] 2.5 ML TID 02/06 1407 AC 02/15 INH 1925 Lisinopril 10 MG DAILY 02/10 0900 DC 02/15 PO 0817 Montelukast Sodium 10 MG 2100 02/06 2100 AC 02/15 PO 2036 Oxycodone/ 2 TAB Q6P PRN 02/11 0815 AC 02/15 Acetaminophen PO 203 Sodium Chloride 2 SPRAY Q4P PRN 02/06 1545 AC 02/11 JOAQUIN 0826 Vital Signs & I&O Last 24 Hrs of Vitals and I&O: Vital Signs Date Time Temp Pulse Resp B/P B/P Pulse O2 O2 Flow FiO2 Mean Ox Delivery Rate 02/16 0805 77 114/60 02/16 0804 77 114/60 02/16 0723 98.2 77 20 114/60 92 Nasal Cannula 02/15 2227 98.4 75 20 92 Nasal Cannula 02/15 2200 Nasal 4.0L Cannula 02/15 2200 100/60 02/15 2036 108/60 02/15 1926 94 Nasal 3.5L Cannula 02/15 1436 98.0 74 20 108/60 93 Nasal Cannula 02/15 1356 94 Nasal 3.5L Cannula 02/15 0830 97 Nasal 4.0L Cannula 02/15 0817 80 108/76 02/15 0817 80 108/76 02/15 0817 80 108/76 Intake & Output 02/16 1600 02/16 0800 02/16 0000 Intake Total 240 480 Output Total 1200 Balance 240 -720 Intake, Oral 240 480 Number 0 Bowel Movements Output, Urine 1200 Patient 114 lb Weight Oxygen 4 L 92% exam of his chest showed scattered rhonchi cardiac exam shows regular S1 and S2 without murmurs he continues to have lower extremity edema Impression/Plan Impression/Plan Impression/Plan: 63 year-old COPD chronic hypoxic respiratory failure acute kidney injury and cardiomyopathy continues with productive cough. Sputum has evidence of purulence and is growing non-lactose fermenting gram-negative rods. Recommendations: Would begin empiric Cipro and the identification of gram-negative rods in view of persistent productive cough evidence of purulence on Gram stain. Taper FiO2 his saturations allow. Follow-up renal function.
--- NOTE | 2018-02-16 08:34 | PN- Housestaff ---
Grace HARPER,Mile 02/16/18 0834: Subjective Follow-up For: A fib with RVR, converted back to NSR with cardioversion Complaints: no complaints Tele-Events Since Last Visit: Paced at a rate of 74-81 Subjective: continues to feel more tired than usual. good urine output. He still continues to have a productive cough with clear sputum. Review of Systems Constitutional: Reports: no symptoms. EENTM: Reports: no symptoms. Cardiovascular: Reports: no symptoms. Respiratory: Reports: cough, sputum production. Gastrointestinal: Reports: no symptoms. Genitourinary: Reports: no symptoms. Musculoskeletal: Reports: back pain, joint pain. Skin: Reports: lesions. Neurological/Psychological: Reports: no symptoms. Objective Last 24 Hrs of Vital Signs/I&O Vital Signs Date Time Temp Pulse Resp B/P B/P Pulse O2 O2 Flow FiO2 Mean Ox Delivery Rate 02/16 1443 97.5 74 20 88/56 93 Nasal 3.0L Cannula 02/16 0818 91 Nasal 3.5L Cannula 02/16 0805 77 114/60 02/16 0804 77 114/60 02/16 0800 95 Nasal 4.0L Cannula 02/16 0723 98.2 77 20 114/60 92 Nasal Cannula 02/15 2227 98.4 75 20 92 Nasal Cannula 02/15 2200 Nasal 4.0L Cannula 02/15 2200 100/60 02/15 2036 108/60 02/15 1926 94 Nasal 3.5L Cannula Intake & Output 02/16 1600 02/16 0800 02/16 0000 Intake Total 410 240 480 Output Total 1200 Balance 410 240 -720 Intake, IV 10 Intake, Oral 400 240 480 Number 0 Bowel Movements Output, Urine 1200 Patient 114 lb Weight Physical Exam General Appearance: Alert, Oriented X3, Cooperative, No Acute Distress Skin: No Rashes, No Breakdown, patient has lower extremities chronic venous stasis changes, open on right lower extremity Skin Temp/Moisture Exam: Warm/Dry Sepsis Skin Exam (color): Normal for Ethnicity HEENT: Atraumatic, PERRLA, EOMI, Mucous Membr. moist/pink Neck: Supple, No JVD Cardiovascular: Regular Rate, Normal S1, Normal S2, No Murmurs Lungs: Clear to Auscultation, Normal Air Movement Abdomen: Normal Bowel Sounds, Soft, No Tenderness, No Hepatospenomegaly, No Masses Neurological: Normal Speech Extremities: No Clubbing, No Cyanosis Vascular: Normal Pulses, Pulses Symmetrical Current Medications: Current Medications Sig/Keaton Start time Last Medication Dose Route Stop Time Status Admin Albuterol Sulfate 3 ML TID 02/06 1407 AC 02/16 INH 1318 Albuterol Sulfate 2 PUF Q4-6 PRN PRN 02/06 0230 AC INH Amiodarone HCl 200 MG DAILY 02/15 0900 AC 02/16 PO 0805 Ammonium Lactate 1 IDANIA BID 02/10 0900 AC 02/16 TOP 0811 Apixaban 5 MG BID 02/15 1453 AC 02/16 PO 0804 Atorvastatin Calcium 10 MG 1700 02/06 1700 AC 02/15 PO 1556 Carvedilol 25 MG BID 02/06 0900 AC 02/16 PO 0804 Ceftazidime 1,000 MG Q24H 02/16 1700 AC IV Colchicine 600 MCG DAILY 02/06 0900 AC 02/16 PO 0805 Escitalopram Oxalate 5 MG DAILY 02/06 0900 AC 02/16 PO 0804 Ferrous Sulfate 325 MG DAILY 02/06 0900 AC 02/16 PO 0804 Fluticasone 2 SPRAY DAILY 02/06 1000 AC 02/16 Propionate JOAQUIN 0805 Gabapentin 400 MG TID 02/06 0900 AC 02/16 PO 1228 Guaifenesin 600 MG Q12 02/07 2100 AC 02/16 PO 0804 Hydroxyzine HCl 100 MG BID 02/06 2100 AC 02/16 PO 0805 Insulin Aspart 0 TIDAC 02/06 0800 AC 02/16 SC 1229 Ipratropium [place] 2.5 ML TID 02/06 1407 AC 02/16 INH 1319 Montelukast Sodium 10 MG 2100 02/06 2100 AC 02/15 PO 2036 Oxycodone/ 2 TAB Q6P PRN 02/11 0815 AC 02/15 Acetaminophen PO 2035 Sodium Chloride 1,000 ML Q10H 02/16 1600 AC IV Sodium Chloride 2 SPRAY Q4P PRN 02/06 1545 AC 02/11 JOAQUIN 0826 Last 24 Hrs of Lab/Joaquim Results Last 24 Hrs of Labs/Mics: Laboratory Tests 02/16/18 0715: Anion Gap 10, Estimated GFR 34 L, BUN/Creatinine Ratio 18.5, CBC w Diff NO MAN DIFF REQ, RBC 4.01 L, MCV 85.5, MCH 28.0, MCHC 32.8 L, RDW 15.3 H, MPV 7.5, Gran % 62.0, Lymphocytes % 25.0, Monocytes % 10.6 H, Eosinophils % 2.1, Basophils % 0.3, Absolute Granulocytes 3.5, Absolute Lymphocytes 1.4, Absolute Monocytes 0.6, Absolute Eosinophils 0.1, Absolute Basophils 0 02/16/18618: Urine Color YEL, Urine Clarity CLEAR, Urine pH 7.0, Ur Specific [place] 1.010, Urine Protein NEG, Urine Ketones NEG, Urine Nitrite NEG, Urine Bilirubin NEG, Urine Urobilinogen 0.2, Ur Leukocyte Esterase NEG, Ur Microscopic EXAM NOT REQUIRED, Urine Hemoglobin NEG, Urine Glucose NEG 02/16/18618: Ur Random Creatinine 78.1, Ur Random Sodium 39, Ur Random Potassium 26.6, Fraction Sodium Excret 0.6 Microbiology 02/15 1945 LOWER RESP: Respiratory Culture - RES GRAM NEGATIVE RODS 02/15 1945 LOWER RESP: Gram Stain - RES Assessment/Plan Assessment: 62 year old male with a past medical history significant for HFrEF (25-30%) nonischemic cardiomyopathy s/p dual chamber PPM/AICD, 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 Patient was admitted to ICU for atrial fibrillation with rapid ventricular rate requiring amiodarone drip and wide complex tachycardia on 02/06. Patient was previously admitted from January 08 to January 15 for right lower extremity cellulitis, heart failure exacerbation and acute kidney injury. After the discharge he became sick again within 3 days and was admitted at [facility] for a few days, then stepdown unit and discharged approximately a week back. He received a call from pacemaker people that his heart rate was running really high and was suggested to go to ER. He was significantly tachycardic at arrival and it was wide complex tachycardia, ECG appears A. fib with aberrancy causing wide complex. When patient is asked if he has a previous history of A. fib he says yes, none of the previous records mention that he has A. fib, he was not anticoagulated if he had history of A. fib thus it was unclear whether it was new onset or old but he appeared in RVR with aberrancy causing wide complexes. ECG findings were discussed with track walker who suggested to start amiodarone drip. Additionally , given his high stroke risk he was started on heparin drip. UPDATE 02/16: Over the weekend, patient was stable save for increasing creatinine status post contrast. There was concern for aortic dissection but CTA was negative. The patient has had cardioversion and also has a pacemaker defibrillator. The patient is diuresis dependent, has HFrEF 25%-30%. However with the elevated Cr, we held lasix, diamox, lisinopril. Urine output continues to be good. Vitals are stable. Serum Cr has increased again today, now to 2.0 from 1.8. We checked a UA yesterday along with FeNa and random Cr, K, Na. Results suggest prerenal kidney failure (kidneys aren't seeing blood volume secondary to CHF) or contrast induced nephropathy. We started patient on Eliquis yesterday, stopped heparin. Today patient was also found to have GNRs and GPC on LRC. No fever or WBC count. Problem List and Plan: Possible Aortic dissection seen in the descending aorta on ANUPAMA -CTA chest negative for aortic dissection, however there is a new airspace disease of the right lower lobe, patient is afebrile and without leukocytosis, we decided to monitor for now. No chest pain. Patient has had stable vitals. 1. Atrial fibrillation with rapid ventricular response/ WIDE COMPLEXES: Patient presented with worsening shortness of breath, pleuritic chest pain at rest. Received call from pacemaker people that his heart rate was running really high and was suggested to go to the ER. On arrival he was found to have tachycardia, EKG appears A. fib with aberrancy causing wide-complex, tachycardic 130-150. He was hemodynamically stable. ECG findings were discussed with track walker who suggested to start amiodarone drip. Given his high stroke risk/ chadsvasc score he was started on heparin drip. S/p cardioversion with transesophageal echocardiogram- 02/12- in sinus now. * Continue amiodarone 200mg daily. Was recently switched from 400mg daily. * Continue Eliquis 5mg bid. * Serial troponins negative * Follow-up echocardiogram showed abnormal left ventricular ejection fraction estimated at 25-30%. * Continue home medication carvedilol * Follow cardiology recommendations * Rda consulted: Interrogation of ICD was done, changes were made to his hardware. * Continuous telemetry monitoring * Monitor vitals every shift * Closely monitor blood pressure Patient has 2 episodes of wide complex tachycardia with an ICD in place without shock therapy. One episode was noted in ER at the time of admission and one more episode with 28 beat run on 02/06/2018. Patient was asymptomatic at that time. He has ICD in place. No shock was delivered. The device was interrogated by the [employer] career representative and found to be functioning properly. It appears as though the patient didn't sustain ventricular tachycardia long enough during any one of these episodes to trigger The device algorhythm for antitachycardia pacing or shock therapy. November 2015- He presented with severe biventricular heart failure at that time. An echocardiogram done on 12/12/2015 showed a severe reduction in LV function with an EF as low as 20%. There was concentric LVH, a dilated right ventricle, a dilated IVC, and a broad left bundle branch block. he was an excellent candidate for cardiac resynchronization therapy given his very broad left bundle branch block. * Rda Dr. Willoughby was consulted. * AICD device was interrogated, able to determine that all his arrhythmias seen are due to conduction of atrial fibrillation, not from V. tach * several reprogramming changes were made to his device including increasing his rates and 5 beats minute to allow more biventricular pacing and also placed on conducted A. fib response. 2. Acute on chronic heart failure with reduced ejection fraction Exertional dyspnea most Likely from HFrEF exacerbation precipitated by atrial fibrillation w/ RVR and pulmonary congestion. Patient chest x-ray showed central pulmonary vascular congestion and early interstitial edema. ProBNP elevated 6490. * Continue to hold diuretics for worsening renal function * Daily weights * Ins and outs * Check serial troponin and EKG, ruled out ACS * Pipe Organ Installer on board * Echo showed ejection fraction 25% * Continue Coreg 25 twice daily * Discontinued lisinopril, diuretics diamox and lasix, secondary to kidney injury. Avoid NSAIDs and other nephrotoxins. * Continue atorvastatin * Monitor renal function * Maintain potassium above 4 and magnesium 2 COPD: On 4 L nasal cannula/chronic hypercapnic respiratory failure/acute hypoxic respiratory failure and NEW FINDINGS SUGGESTIVE OF PNEUMONIA Acute on chronic hypoxic respiratory failure most likely from CHF exacerbation and rapid A. fib. CT showed complete collapse of the right middle lobe of uncertain etiology. Endobronchial lesion\malignancy are not suggested. Most recent imaging of the lung showed new airspace disease in the right lower lobe and unchanged airspace disease in the posterior right upper lobe. Sputum culture today returned as positive for GNRs and GPC. * TRC evaluation * Continue supplemental oxygen, wean down as tolerated * Continue advair, singulair * Nebulized albuterol and ipatropium * Chest physiotherapy/Acupella therapy * Mucomyst * Patient needs outpatient CAT scan chest after 2 months for resolution * Continue to hold diamox for worsening renal function * Began ceftaz, renal dose 1 gram daily. Pulmonary suggested cipro which has good gram negative coverage but we will cover with ceftaz as some GPCs were seen as well. Patient does have prolonged QTC which would exclude cipro but he is currently paced. JORY: * CPAP-although patient is noncompliant * Check ABG for increased somnolence prn DM: * Hold oral hypoglycemics * Diabetic diet * Accuchecks TIDAC/HS * Novolog sliding scale insulin * Continue gabapentin for neuropathy Gout: * Continue colchicine 0.6 mg. * Avoid giving more than 0.6 mg given drug interaction with amiodarone Depression * continue Lexapro 5 mg daily Hyperlipidemia * Continue Lipitor 10 daily. * Avoid simvastatin given drug interaction with amiodarone LISETTE ON STAGE 2 CKD * FeNa .6. This suggests prerenal causes of contrast induced nephropathy. * Cr has increased again to 2.0 so we will trial fluid challenge to increase flow to kidney with 100cc/hr NS and reassess tomorrow * Nephrology following * We have held lisinopril, diamox, and lasix for worsening renal function. Diabetic diet with 2gram sodium restriction DVT ppx ELIQUIS DNI Problem List: 1. LISETTE (acute kidney injury) 2. Wide-complex tachycardia 3. Afib 4. CHF (congestive heart failure) 5. COPD exacerbation Pain Ratin Pain Location: na Pain Goal: Remain pain free Pain Plan: na Tomorrow's Labs & Rationales: cbc bep Janelle Shaikh 02/16/18 1128: Attending MD Review Statement Attending Statement Attending MD Statement: examined this patient, discuss w/resident/PA/CUSTOM STUDIO COORDINATOR, agreed w/resident/PA/CUSTOM STUDIO COORDINATOR, discussed with family, reviewed EMR data (avail), discussed with nursing, discussed with case mgmt, reviewed images, amended to note Attending Assessment/Plan: 62 o/m transferred from ICU initially for afib with aberrant condcution causing wide complex tachycardia requiring iv amiodarone and now transitioned to PO amidarone. Patient denies any new complaints. He is on 4 l nc without obvious dysonea. Able to speak in full sentences. Cr 1.8>>2.0 Acute on chronic heart failure systolic compensated. Acute on chronic hypoxic respiratory failure, hypercapnia appears chronic. Acute renal failure - creatinine now has worsened to 2.0 likely due to Lasix use ; this possibly could be due to cardiorenal syndrome or possible contrast induced nephropathy. LASIX HELD as per cardiology. Appreciate nephrology. (Lasix use if ok with nephrology) History of DM RISS and titrae insulin as needed JORY noncompliant with CPAP, encourage compliance PAD no acute issues, chronic venous stasis. COPD not in exacerbation. stable. Monitor creatinine for now and taper oxygen supplementation.
--- NOTE | 2018-02-16 11:59 | PN- Cardiology ---
Subjective Subjective: Shortness of breath is slightly better. Lower extremity edema stable. No chest pain. No palpitations. No diaphoresis. No nausea or vomiting. Objective Vital Signs and I&Os Vital Signs Date Time Temp Pulse Resp B/P B/P Pulse O2 O2 Flow FiO2 Mean Ox Delivery Rate 02/16 0818 91 Nasal 3.5L Cannula 02/16 0805 77 114/60 02/16 0804 77 114/60 02/16 0800 95 Nasal 4.0L Cannula 02/16 0723 98.2 77 20 114/60 92 Nasal Cannula 02/15 2227 98.4 75 20 92 Nasal Cannula 02/15 2200 Nasal 4.0L Cannula 02/15 2200 100/60 02/15 2036 108/60 02/15 1926 94 Nasal 3.5L Cannula 02/15 1436 98.0 74 20 108/60 93 Nasal Cannula 02/15 1356 94 Nasal 3.5L Cannula Intake & Output 02/16 1600 02/16 0800 02/16 0000 02/15 1600 02/15 0800 02/15 0000 Intake Total 240 480 800 464.8 650 Output Total 1200 550 450 Balance 240 -720 250 464.8 200 Intake, IV 400 364.8 250 Intake, Oral 240 480 400 100 400 Number 0 Bowel Movements Output, Urine 1200 550 450 Patient 114 lb 380 lb 110 lb Weight Physical Exam: Gen: The patient is in no acute distress HEENT: Normal nose, ears, and oropharynx. Pupils equal bilaterally. Conjunctiva normal. Neck: Supple with no JVD, no masses, and no thyromegaly Lungs: Bilateral rhonci with normal respiratory effort Heart: Irregularly irregular, S1, S2, 2/6 systolic murmur. 1+ peripheral edema, 2+ pulses in the lower extremities bilaterally Abdomen: Soft, nontender, no masses. No hepatomegaly. No splenomegaly Extremities: No clubbing or cyanosis. Normal muscle strength in the upper and lower extremities Skin: Normal skin turgor with no skin ulcers or lesions noted. Current Medications: Current Medications Sig/Keaton Start time Last Medication Dose Route Stop Time Status Admin Albuterol Sulfate 3 ML TID 02/06 1407 AC 02/16 INH 0818 Albuterol Sulfate 2 PUF Q4-6 PRN PRN 02/06 0230 AC INH Amiodarone HCl 200 MG DAILY 02/15 0900 AC 02/16 PO 0805 Ammonium Lactate 1 IDANIA BID 02/10 0900 AC 02/16 TOP 0811 Apixaban 5 MG BID 02/15 1453 AC 02/16 PO 0804 Atorvastatin Calcium 10 MG 1700 02/06 1700 AC 02/15 PO 1556 Carvedilol 25 MG BID 02/06 0900 AC 02/16 PO 0804 Colchicine 600 MCG DAILY 02/06 09 AC 02/16 PO 0805 Escitalopram Oxalate 5 MG DAILY 02/06 09 AC 02/16 PO 0804 Ferrous Sulfate 325 MG DAILY 02/06 0900 AC 02/16 PO 0804 Fluticasone 2 SPRAY DAILY 02/06 1000 AC 02/16 Propionate JOAQUIN 0805 Gabapentin 400 MG TID 02/06 09 AC 02/16 PO 0805 Guaifenesin 600 MG Q12 02/07 2100 AC 02/16 PO 0804 Heparin Sodium 25,000 UNIT Q10H 02/12 1215 DC 02/15 (Porcine) IV 1427 Sodium Chloride 500 ML Hydroxyzine HCl 100 MG BID 02/06 2100 AC 02/16 PO 0805 Insulin Aspart 0 TIDAC 02/06 0800 AC 02/16 SC 0806 Ipratropium [place] 2.5 ML TID 02/06 1407 AC 02/16 INH 0818 Montelukast Sodium 10 MG 2100 02/06 2100 AC 02/15 PO 203 Oxycodone/ 2 TAB Q6P PRN 02/11 0815 AC 02/15 Acetaminophen PO 203 Sodium Chloride 2 SPRAY Q4P PRN 02/06 1545 AC 02/11 JOAQUIN 0826 Results Last 48 Hrs of Labs/Mics: Laboratory Tests 02/16/18 0715: Anion Gap 10, Estimated GFR 34 L, BUN/Creatinine Ratio 18.5, CBC w Diff NO MAN DIFF REQ, RBC 4.01 L, MCV 85.5, MCH 28.0, MCHC 32.8 L, RDW 15.3 H, MPV 7.5, Gran % 62.0, Lymphocytes % 25.0, Monocytes % 10.6 H, Eosinophils % 2.1, Basophils % 0.3, Absolute Granulocytes 3.5, Absolute Lymphocytes 1.4, Absolute Monocytes 0.6, Absolute Eosinophils 0.1, Absolute Basophils 0 02/16/18 0619: Urine Color YEL, Urine Clarity CLEAR, Urine pH 7.0, Ur Specific [place] 1.010, Urine Protein NEG, Urine Ketones NEG, Urine Nitrite NEG, Urine Bilirubin NEG, Urine Urobilinogen 0.2, Ur Leukocyte Esterase NEG, Ur Microscopic EXAM NOT REQUIRED, Urine Hemoglobin NEG, Urine Glucose NEG 02/16/18 0619: Ur Random Creatinine 78.1, Ur Random Sodium 39, Ur Random Potassium 26.6, Fraction Sodium Excret 0.6 02/15/18 1140: APTT 52 H 02/15/18 0720: Anion Gap 9, Estimated GFR 39 L, BUN/Creatinine Ratio 19.4, CBC w Diff NO MAN DIFF REQ, RBC 4.01 L, MCV 85.6, MCH 27.6, MCHC 32.2 L, RDW 14.3, MPV 7.7, Gran % 63.1, Lymphocytes % 24.0, Monocytes % 10.9 H, Eosinophils % 1.6, Basophils % 0.4, Absolute Granulocytes 4.1, Absolute Lymphocytes 1.5, Absolute Monocytes 0.7 H, Absolute Eosinophils 0.1, Absolute Basophils 0 02/14/18 2310: APTT 68 H 02/14/18 1310: APTT 48 H Assessment/Plan Assessment/Plan Assessment: 1. Acute on chronic HFrEF secondary to non ischemic cardiomyopathy. 2. AICD 3. Chronic venous insufficiency with LE edema and stasis changes 4. New onset atrial fibrillation, rate currently under control 5. Wide complex tachycardia, secondary to atrial fibrillation with aberrant conduction Plan: * Diuretics on hold for acute kidney injury * Continue Eliquis * Continue other cardiac medications. Continue telemetry? Yes
[2018-02-16 14:43] VITALS: BP 88/56
--- NOTE | 2018-02-16 15:33 | PN- Nephrology ---
Assessment/Plan Nephrology Assessment: 1. LISETTE (non-oliguric) secondary to prerenal factors and/or contrast nephropathy. Low fractional excretion of sodium does not favor one over the other diagnosis. 2. Hypotension 3. Multiple comorbidities as previously noted Suggestion: 1. Continue to hold diuretics 2. Trial of IV normal saline at 100 mL per hour and reassess tomorrow morning 3. Continue to monitor fluid balance, chemistries daily Subjective Subjective: Patient feels about the same today. His shortness of breath is relatively unchanged and he continues to have a productive cough although he remains afebrile with a normal WBC.urine output remains quite good with negative daily fluid balance over the last several days. Blood pressure even lower today. Creatinine up to 2.0. Fractional excretion of sodium low at 0.6%. Urinalysis shows only trace proteinuria without dipstick hematuria. Objective Vital Signs and I&Os Vital Signs Date Time Temp Pulse Resp B/P B/P Pulse O2 O2 Flow FiO2 Mean Ox Delivery Rate 02/16 1443 97.5 74 20 88/56 93 Nasal 3.0L Cannula 02/16 0818 91 Nasal 3.5L Cannula 02/16 0805 77 114/60 02/16 0804 77 114/60 02/16 0800 95 Nasal 4.0L Cannula 02/16 0723 98.2 77 20 114/60 92 Nasal Cannula 02/15 2227 98.4 75 20 92 Nasal Cannula 02/15 2200 Nasal 4.0L Cannula 02/15 2200 100/60 02/15 2036 108/60 02/15 1926 94 Nasal 3.5L Cannula Intake & Output 02/16 1600 02/16 0400 02/15 1600 02/15 0400 02/14 1600 02/14 0400 Intake Total 360 750 9193.8 650 896 640 Output Total 1200 190 264 7791 2600 Balance 650 -720 714.8 200 -1254 -1960 Intake, IV 10 764.8 250 416 Intake, Oral 640 480 500 400 480 640 Number 0 0 0 Bowel Movements Output, Urine 1200 198 936 7441 2600 Patient 114 lb 380 lb 110 lb Weight Physical Exam: General: Well-developed, morbidly obese white male on nasal O2 Skin: No jaundice; chronic hyperpigmentation changes in the lower extremities likely due to stasis HEENT: Conjunctivae pink, sclerae anicteric, mucous membranes moist Neck: Without masses or thyromegaly, no supraclavicular or cervical adenopathy Chest: Poor air entry with bilateral wheezes and rhonchi Heart: Regular rate and rhythm without S3 or rub; there is an AICD/pacemaker device in place Abdomen: Obese, soft and nontender without palpable masses or organomegaly Extremities: Bilateral lower extremity edema left worse than right with overlying hyperpigmentation and skin changes more pronounced on the left; right lower leg dressing intact Neuro: Awake and alert but nods off easily, no focal findings, no asterixis or myoclonus Results Pertinent Lab Results: Laboratory Tests 02/16 02/16 0715 0619 Chemistry Sodium (137 - 145 mmol/L) 140 Potassium (3.5 - 5.1 mmol/L) 4.1 Chloride (98 - 107 mmol/L) 91 L Carbon Dioxide (22 - 30 mmol/L) 39 H Anion Gap (5 - 16) 10 BUN (9 - 20 mg/dL) 37 H Creatinine (0.7 - 1.2 mg/dL) 2.0 H Estimated GFR (>60 ml/min) 34 L BUN/Creatinine Ratio (7 - 25 %) 18.5 Hematology CBC w Diff NO MAN DIFF REQ WBC (4.8 - 10.8 /CUMM) 5.6 RBC (4.70 - 6.10 /CUMM) 4.01 L Hgb (14.0 - 18.0 G/DL) 11.2 L Hct (42 - 52 %) 34.3 L MCV (80.0 - 94.0 FL) 85.5 MCH (27.0 - 31.0 PG) 28.0 MCHC (33.0 - 37.0 G/DL) 32.8 L RDW (11.5 - 14.5 %) 15.3 H Plt Count (130 - 400 /CUMM) 163 MPV (7.4 - 10.4 FL) 7.5 Gran % (42.2 - 75.2 %) 62.0 Lymphocytes % (20.5 - 51.1 %) 25.0 Monocytes % (1.7 - 9.3 %) 10.6 H Eosinophils % (0 - 5 %) 2.1 Basophils % (0.0 - 2.0 %) 0.3 Absolute Granulocytes (1.4 - 6.5 /CUMM) 3.5 Absolute Lymphocytes (1.2 - 3.4 /CUMM) 1.4 Absolute Monocytes (0.10 - 0.60 /CUMM) 0.6 Absolute Eosinophils (0.0 - 0.7 /CUMM) 0.1 Absolute Basophils (0.0 - 0.2 /CUMM) 0 Urines Urine Color (YEL,AMB,STR) YEL Urine Clarity (CLEAR) CLEAR Urine pH (5.0 - 8.0) 7.0 Ur Specific [place] (1.001 - 1.035) 1.010 Urine Protein (NEG,<30 MG/DL) NEG Urine Ketones (NEG) NEG Urine Nitrite (NEG) NEG Urine Bilirubin (NEG) NEG Urine Urobilinogen (0.1 - 1.0 EU/dl) 0.2 Ur Leukocyte Esterase (NEG) NEG Ur Microscopic EXAM NOT REQUIRED Urine Hemoglobin (NEG) NEG Urine Glucose (N MG/DL) NEG 02/16 02/15 02/15 02/14 0619 1140 0720 2310 Chemistry Sodium (137 - 145 mmol/L) 139 Potassium (3.5 - 5.1 mmol/L) 4.2 Chloride (98 - 107 mmol/L) 92 L Carbon Dioxide (22 - 30 mmol/L) 39 H Anion Gap (5 - 16) 9 BUN (9 - 20 mg/dL) 35 H Creatinine (0.7 - 1.2 mg/dL) 1.8 H Estimated GFR (>60 ml/min) 39 L BUN/Creatinine Ratio (7 - 25 %) 19.4 Coagulation APTT (25 - 37 SEC) 52 H 68 H Hematology CBC w Diff NO MAN DIFF REQ WBC (4.8 - 10.8 /CUMM) 6.4 RBC (4.70 - 6.10 /CUMM) 4.01 L Hgb (14.0 - 18.0 G/DL) 11.1 L Hct (42 - 52 %) 34.3 L MCV (80.0 - 94.0 FL) 85.6 MCH (27.0 - 31.0 PG) 27.6 MCHC (33.0 - 37.0 G/DL) 32.2 L RDW (11.5 - 14.5 %) 14.3 Plt Count (130 - 400 /CUMM) 162 MPV (7.4 - 10.4 FL) 7.7 Gran % (42.2 - 75.2 %) 63.1 Lymphocytes % (20.5 - 51.1 %) 24.0 Monocytes % (1.7 - 9.3 %) 10.9 H Eosinophils % (0 - 5 %) 1.6 Basophils % (0.0 - 2.0 %) 0.4 Absolute Granulocytes (1.4 - 6.5 /CUMM) 4.1 Absolute Lymphocytes (1.2 - 3.4 /CUMM) 1.5 Absolute Monocytes (0.10 - 0.60 /CUMM) 0.7 H Absolute Eosinophils (0.0 - 0.7 /CUMM) 0.1 Absolute Basophils (0.0 - 0.2 /CUMM) 0 Urines Ur Random Creatinine (mg/dL) 78.1 Ur Random Sodium (30 - 90 mmol/L) 39 Ur Random Potassium (mmol/L) 26.6 Fraction Sodium Excret (<1% %) 0.6 02/14 02/14 02/13 1310 0520 1700 Chemistry Sodium (137 - 145 mmol/L) 137 Potassium (3.5 - 5.1 mmol/L) 4.3 Chloride (98 - 107 mmol/L) 86 L Carbon Dioxide (22 - 30 mmol/L) 44 H Anion Gap (5 - 16) 7 BUN (9 - 20 mg/dL) 30 H Creatinine (0.7 - 1.2 mg/dL) 1.8 H Estimated GFR (>60 ml/min) 39 L BUN/Creatinine Ratio (7 - 25 %) 16.7 Coagulation APTT (25 - 37 SEC) 48 H > 120 *H 74 H Hematology CBC w Diff NO MAN DIFF REQ WBC (4.8 - 10.8 /CUMM) 6.0 RBC (4.70 - 6.10 /CUMM) 3.88 L Hgb (14.0 - 18.0 G/DL) 10.8 L Hct (42 - 52 %) 33.5 L MCV (80.0 - 94.0 FL) 86.2 MCH (27.0 - 31.0 PG) 27.9 MCHC (33.0 - 37.0 G/DL) 32.3 L RDW (11.5 - 14.5 %) 14.7 H Plt Count (130 - 400 /CUMM) 158 MPV (7.4 - 10.4 FL) 7.2 L Gran % (42.2 - 75.2 %) 50.5 Lymphocytes % (20.5 - 51.1 %) 36.4 Monocytes % (1.7 - 9.3 %) 10.4 H Eosinophils % (0 - 5 %) 2.2 Basophils % (0.0 - 2.0 %) 0.5 Absolute Granulocytes (1.4 - 6.5 /CUMM) 3.0 Absolute Lymphocytes (1.2 - 3.4 /CUMM) 2.2 Absolute Monocytes (0.10 - 0.60 /CUMM) 0.6 Absolute Eosinophils (0.0 - 0.7 /CUMM) 0.1 Absolute Basophils (0.0 - 0.2 /CUMM) 0
[2018-02-16 22:00] VITALS: BP 92/68
[2018-02-17 06:38] VITALS: BP 114/64
--- NOTE | 2018-02-17 07:36 | PN- Housestaff ---
Grace HARPER,Mile 02/17/18 0736: Subjective Follow-up For: afib with RVR kidney injury pneumonia Tele-Events Since Last Visit: paced Subjective: Patient feeling the same as yesterday in terms of his breathing. Continues to have lower extremity pain. Denies chest pain. Review of Systems Constitutional: Reports: weakness. EENTM: Reports: no symptoms. Cardiovascular: Reports: no symptoms. Respiratory: Reports: cough, short of breath, sputum production. Gastrointestinal: Reports: no symptoms. Genitourinary: Reports: no symptoms. Musculoskeletal: Reports: no symptoms. Skin: Reports: change in skin color. Neurological/Psychological: Reports: no symptoms. Hematologic/Endocrine: Reports: no symptoms. Objective Last 24 Hrs of Vital Signs/I&O Vital Signs Date Time Temp Pulse Resp B/P B/P Pulse O2 O2 Flow FiO2 Mean Ox Delivery Rate 02/17 0638 97.9 74 18 114/64 94 Nasal 3.0L Cannula 02/16 2203 98.2 73 18 92 02/160 Nasal 4.0L Cannula 02/16 2200 92/68 02/16 2054 75 92/60 02/16 202 Nasal 3.5L Cannula 02/16 1443 97.5 74 20 88/56 93 Nasal 3.0L Cannula 02/16 0818 91 Nasal 3.5L Cannula Intake & Output 02/17 1600 02/17 0800 02/17 0000 Intake Total 1280 780 Output Total 725 600 Balance 555 180 Intake, IV 800 300 Intake, Oral 480 480 Number 0 0 Bowel Movements Output, Urine 725 600 Physical Exam General Appearance: Alert, Oriented X3, Cooperative, No Acute Distress Skin: No Breakdown, No Significant Lesion Skin Temp/Moisture Exam: Warm/Dry Sepsis Skin Exam (color): Normal for Ethnicity HEENT: Atraumatic, PERRLA, EOMI, Mucous Membr. moist/pink Cardiovascular: Regular Rate, Normal S1, Normal S2, No Murmurs Lungs: Clear to Auscultation, Normal Air Movement Abdomen: Normal Bowel Sounds, Soft, No Tenderness Neurological: Normal Speech Extremities: No Clubbing, No Cyanosis Vascular: Normal Pulses Current Medications: Current Medications Sig/Keaton Start time Last Medication Dose Route Stop Time Status Admin Albuterol Sulfate 3 ML TID 02/06 1407 AC 02/16 INH 2018 Albuterol Sulfate 2 PUF Q4-6 PRN PRN 02/06 0230 AC INH Amiodarone HCl 200 MG DAILY 02/15 0900 AC 02/16 PO 08 Ammonium Lactate 1 IDANIA BID 02/10 0900 AC 02/16 TOP 2053 Apixaban 5 MG BID 02/15 1453 AC 02/16 PO 2053 Atorvastatin Calcium 10 MG 1700 02/06 1700 AC 02/16 PO 175 Carvedilol 25 MG BID 02/06 0900 AC 02/16 PO 2053 Ceftazidime 1,000 MG Q24H 02/16 1700 AC 02/16 IV 1754 Colchicine 600 MCG DAILY 02/06 0900 AC 02/16 PO 08 Escitalopram Oxalate 5 MG DAILY 02/06 0900 AC 02/16 PO 08 Ferrous Sulfate 325 MG DAILY 02/06 0900 AC 02/16 PO 08 Fluticasone 2 SPRAY DAILY 02/06 1000 AC 02/16 Propionate JOAQUIN 0805 Gabapentin 400 MG TID 02/06 0900 AC 02/16 PO 2053 Guaifenesin 600 MG Q12 02/07 2100 AC 02/16 PO 2053 Hydroxyzine HCl 100 MG BID 02/06 2100 AC 02/16 PO 2053 Insulin Aspart 0 TIDAC 02/06 0800 AC 02/16 SC 175 Ipratropium [place] 2.5 ML TID 02/06 1407 AC 02/16 INH 2018 Montelukast Sodium 10 MG 2100 02/06 2100 AC 02/16 PO 2053 Oxycodone/ 2 TAB Q6P PRN 02/11 0815 AC 02/16 Acetaminophen PO 2053 Sodium Chloride 1,000 ML Q10H 02/16 1600 AC 02/17 IV 0527 Sodium Chloride 2 SPRAY Q4P PRN 02/06 1545 AC 02/11 JOAQUIN 0826 Last 24 Hrs of Lab/Joaquim Results Last 24 Hrs of Labs/Mics: Laboratory Tests 02/17/18 0630: Sodium Pending, Potassium Pending, Chloride Pending, Carbon Dioxide Pending, Anion Gap Pending, BUN Pending, Creatinine Pending, BUN/Creatinine Ratio Pending , CBC w Diff Pending, WBC Pending, RBC Pending, Hgb Pending, Hct Pending, MCV Pending, MCH Pending, MCHC Pending, RDW Pending, Plt Count Pending, MPV Pending Assessment/Plan Assessment: 62 year old male with a past medical history significant for HFrEF (25-30%) nonischemic cardiomyopathy s/p dual chamber PPM/AICD, 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 Patient was admitted to ICU for atrial fibrillation with rapid ventricular rate requiring amiodarone drip and wide complex tachycardia on 02/06. Patient was previously admitted from January 08 to January 15 for right lower extremity cellulitis, heart failure exacerbation and acute kidney injury. After the discharge he became sick again within 3 days and was admitted at [facility] for a few days, then stepdown unit and discharged approximately a week back. He received a call from pacemaker people that his heart rate was running really high and was suggested to go to ER. He was significantly tachycardic at arrival and it was wide complex tachycardia, ECG appears A. fib with aberrancy causing wide complex. When patient is asked if he has a previous history of A. fib he says yes, none of the previous records mention that he has A. fib, he was not anticoagulated if he had history of A. fib thus it was unclear whether it was new onset or old but he appeared in RVR with aberrancy causing wide complexes. ECG findings were discussed with die mechanic who suggested to start amiodarone drip. Additionally , given his high stroke risk he was started on heparin drip. UPDATE 02/17: The patient has had cardioversion and also has a pacemaker defibrillator. The patient is diuresis dependent, has HFrEF 25%-30%. However with the elevated Cr, we held lasix, diamox, lisinopril. Breathing continues to be difficult for the patient but no change since yesterday. Urine output continues to be good. Vitals are stable. Serum Cr has decreased today. We checked a UA yesterday along with FeNa and random Cr, K, Na. Results suggest prerenal kidney failure (kidneys aren't seeing blood volume secondary to CHF) or contrast induced nephropathy. We started fluids last night to good effect ( lower Cr). Patient is anticoagulated on Eliquis. Today patient's LRC was speciated - positive for pseudomonas and staph with history of MRSA. No fever or WBC count again today. Problem List and Plan: 1. Possible Aortic dissection seen in the descending aorta on ANUPAMA -CTA chest negative for aortic dissection, however there is a new airspace disease of the right lower lobe, patient is afebrile and without leukocytosis, we decided to monitor for now. No chest pain. Patient has had stable vitals. 2. Atrial fibrillation with rapid ventricular response/ WIDE COMPLEXES: Patient presented with worsening shortness of breath, pleuritic chest pain at rest. Received call from pacemaker people that his heart rate was running really high and was suggested to go to the ER. On arrival he was found to have tachycardia, EKG appears A. fib with aberrancy causing wide-complex, tachycardic 130-150. He was hemodynamically stable. ECG findings were discussed with die mechanic who suggested to start amiodarone drip. Given his high stroke risk/ chadsvasc score he was started on heparin drip. S/p cardioversion with transesophageal echocardiogram- 02/12- in sinus now. * Continue amiodarone 200mg daily. Was recently switched from 400mg daily. * Continue Eliquis 5mg bid. * Serial troponins negative * Follow-up echocardiogram showed abnormal left ventricular ejection fraction estimated at 25-30%. * Continue home medication carvedilol * Follow cardiology recommendations * Video Production Engineer consulted: Interrogation of ICD was done, changes were made to his hardware. * Continuous telemetry monitoring * Monitor vitals every shift * Closely monitor blood pressure Patient has 2 episodes of wide complex tachycardia with an ICD in place without shock therapy. One episode was noted in ER at the time of admission and one more episode with 28 beat run on 02/06/2018. Patient was asymptomatic at that time. He has ICD in place. No shock was delivered. The device was interrogated by the [employer] lifeline representatives and found to be functioning properly. It appears as though the patient didn't sustain ventricular tachycardia long enough during any one of these episodes to trigger the device algorithym for antitachycardia pacing or shock therapy. November 2015- He presented with severe biventricular heart failure at that time. An echocardiogram done on 12/12/2015 showed a severe reduction in LV function with an EF as low as 20%. There was concentric LVH, a dilated right ventricle, a dilated IVC, and a broad left bundle branch block. he was an excellent candidate for cardiac resynchronization therapy given his very broad left bundle branch block. * Video Production Engineer Dr. Willoughby was consulted. * AICD device was interrogated, able to determine that all his arrhythmias seen are due to conduction of atrial fibrillation, not from V. tach * several reprogramming changes were made to his device including increasing his rates and 5 beats minute to allow more biventricular pacing and also placed on conducted A. fib response. 2. Acute on chronic heart failure with reduced ejection fraction Exertional dyspnea most Likely from HFrEF exacerbation precipitated by atrial fibrillation w/ RVR and pulmonary congestion. Patient chest x-ray showed central pulmonary vascular congestion and early interstitial edema. ProBNP elevated 6490. CXR today shows hazy basilar opacities with decreased lung volumes indicative of atelectasis or pneumonia. * Continue to hold diuretics for worsening renal function * Daily weights * Ins and outs * Checked serial troponin and EKG, ruled out ACS * Chief Procurement Officer on board * Echo showed ejection fraction 25% * Decreased coreg from 25 to 12.5mg daily as blood pressure running low. * Discontinued lisinopril, diuretics diamox and lasix, secondary to kidney injury. Avoid NSAIDs and other nephrotoxins. * Continue atorvastatin * Monitor renal function * Maintain potassium above 4 and magnesium 2 COPD: On 4 L nasal cannula/chronic hypercapnic respiratory failure/acute hypoxic respiratory failure and NEW FINDINGS SUGGESTIVE OF PNEUMONIA Acute on chronic hypoxic respiratory failure most likely from CHF exacerbation and rapid A. fib. CT showed complete collapse of the right middle lobe of uncertain etiology. Endobronchial lesion\malignancy are not suggested. Most recent imaging of the lung showed new airspace disease in the right lower lobe and unchanged airspace disease in the posterior right upper lobe. Sputum culture today returned as positive for GNRs and GPC, today shows pseudomonas and staph, previously MRSA. * TRC evaluation * Continue supplemental oxygen, wean down as tolerated * Continue advair, singulair * Nebulized albuterol and ipatropium * Chest physiotherapy/Acupella therapy * Mucomyst * Patient needs outpatient CAT scan chest after 2 months for resolution * Continue to hold diamox for worsening renal function * Continue ceftaz. Pulmonary suggested cipro which has good gram negative coverage but we will cover with ceftaz as some GPCs were seen as well. Patient does have prolonged QTC which would exclude cipro but he is currently paced. JORY: * CPAP-although patient is noncompliant * Check ABG for increased somnolence prn DM: * Hold oral hypoglycemics * Diabetic diet * Accuchecks TIDAC/HS * Novolog sliding scale insulin * Continue gabapentin for neuropathy Gout: * Continue colchicine 0.6 mg. * Avoid giving more than 0.6 mg given drug interaction with amiodarone Depression * continue Lexapro 5 mg daily Hyperlipidemia * Continue Lipitor 10 daily. * Avoid simvastatin given drug interaction with amiodarone LISETTE ON STAGE 2 CKD * FeNa .6. This suggests prerenal causes of contrast induced nephropathy. * Cr has increased again to 2.0 so we will trial fluid challenge to increase flow to kidney with 100cc/hr NS and reassess tomorrow * Nephrology following * We have held lisinopril, diamox, and lasix for worsening renal function. Diabetic diet with 2gram sodium restriction DVT ppx ELIQUIS DNI Problem List: 1. CHF (congestive heart failure) 2. COPD exacerbation 3. LISETTE (acute kidney injury) 4. Afib Pain Ratin Pain Location: lower extremities and back Pain Goal: Pain 4 or less Pain Plan: pathway Tomorrow's Labs & Rationales: cbc bep Janelle Shaikh 02/17/18 1056: Attending MD Review Statement Attending Statement Attending MD Statement: examined this patient, discuss w/resident/PA/DIRECT CARE PROFESSIONAL, agreed w/resident/PA/DIRECT CARE PROFESSIONAL, discussed with family, reviewed EMR data (avail), discussed with nursing, discussed with case mgmt, reviewed images, amended to note Attending Assessment/Plan: 62 o/m transferred from ICU initially for afib with aberrant condcution causing wide complex tachycardia requiring iv amiodarone and now PO amidarone. Patient c/o cough , productive. Sputum growing gram neg rods. He is on 4 l nc without obvious dyspnea. Able to speak in full sentences. Cr 1.8>>2.0>>1.6 Acute on chronic heart failure systolic EF 25% compensated. Acute on chronic hypoxic respiratory failure, hypercapnia appears chronic with improvement. Acute renal failure - Cr with some improvement after received IVF slow rate 2/2 hypotension. LASIX HELD as per cardiology/ nephrology. (Lasix use if ok with nephrology) History of DM RISS and titrae insulin as needed JORY on CPAP non complaint in past, encouraged compliance PAD no acute issues, chronic venous stasis. COPD on home oxygen not in exacerbation. stable. Abx for possible gram negative rods sputum. f/u cultures, pulmonary appreciated. Monitor creatinine for now and taper oxygen supplementation, Monitor fluid overload. Patient has poor heart baseline function. Monitor creatinine for now and taper oxygen supplementation, Monitor fluid overload. Patient has poor heart baseline function.
[2018-02-17 08:46] LABS: ABSOLUTE BASOPHIL COUNT 0 /CUMM (0.0-0.2); ABSOLUTE EOSINOPHIL COUNT 0.1 /CUMM (0.0-0.7); ABSOLUTE GRANULOCYTE CT 3.8 /CUMM (1.4-6.5); ABSOLUTE LYMPH COUNT 1.5 /CUMM (1.2-3.4); ABSOLUTE MONOCYTE COUNT 0.8 /CUMM (0.10-0.60); BASOPHIL % 0.5 % (0.0-2.0); EOSINOPHIL % 2.1 % (0-5); HEMATOCRIT 34.1 % (42-52); MEAN CORPUSCULAR HGB 28.1 PG (27.0-31.0); MEAN CORPUSCULAR HGB CONC 32.5 G/DL (33.0-37.0); MEAN CORPUSCULAR VOLUME 86.3 FL (80.0-94.0); MEAN PLATELET VOLUME 7.5 FL (7.4-10.4); PLATELET COUNT 158 /CUMM (130-400); RBC DISTRIBUTION WIDTH 14.7 % (11.5-14.5); RED BLOOD CELL CT 3.95 /CUMM (4.70-6.10); WHITE BLOOD CELL COUNT 6.3 /CUMM (4.8-10.8)
--- NOTE | 2018-02-17 08:50 | PN- Pulmonary ---
Subjective HPI/Critical Care Issues: Patient continues with a productive cough now on antibiotics for gram-negative rods in his sputum Objective Current Medications: Current Medications Sig/Keaton Start time Last Medication Dose Route Stop Time Status Admin Albuterol Sulfate 3 ML TID 02/06 1407 AC 02/17 INH 0830 Albuterol Sulfate 2 PUF Q4-6 PRN PRN 02/06 0230 AC INH Amiodarone HCl 200 MG DAILY 02/15 0900 AC 02/16 PO 0805 Ammonium Lactate 1 IDANIA BID 02/10 09 AC 02/16 TOP 2053 Apixaban 5 MG BID 02/15 1453 AC 02/16 PO 2053 Atorvastatin Calcium 10 MG 1700 02/06 1700 AC 02/16 PO 175 Carvedilol 12.5 MG BID 02/17 0900 AC PO Carvedilol 25 MG BID 02/06 0900 DC 02/16 PO 2053 Ceftazidime 1,000 MG DAILY 02/17 0900 CAN IV 02/18 0901 Ceftazidime 1,000 MG Q24H 02/16 1700 AC 02/16 IV 1754 Colchicine 600 MCG DAILY 02/06 0900 AC 02/16 PO 08 Escitalopram Oxalate 5 MG DAILY 02/06 0900 AC 02/16 PO 08 Ferrous Sulfate 325 MG DAILY 02/06 0900 AC 02/16 PO 0804 Fluticasone 2 SPRAY DAILY 02/06 1000 AC 02/16 Propionate JOAQUIN 0805 Gabapentin 400 MG TID 02/06 0900 AC 02/16 PO 2053 Guaifenesin 600 MG Q12 02/07 2100 AC 02/16 PO 2053 Hydroxyzine HCl 100 MG BID 02/06 2100 DC 02/16 PO 2053 Insulin Aspart 0 TIDAC 02/06 0800 AC 02/16 SC 175 Ipratropium [place] 2.5 ML TID 02/06 1407 AC 02/17 INH 0830 Montelukast Sodium 10 MG 2100 02/06 2100 AC 02/16 PO 2053 Oxycodone/ 2 TAB Q6P PRN 02/11 0815 AC 02/16 Acetaminophen PO 2053 Sodium Chloride 1,000 ML Q10H 02/16 1600 AC 02/17 IV 0527 Sodium Chloride 2 SPRAY Q4P PRN 02/06 1545 AC 02/11 JOAQUIN 0826 Vital Signs & I&O Last 24 Hrs of Vitals and I&O: Vital Signs Date Time Temp Pulse Resp B/P B/P Pulse O2 O2 Flow FiO2 Mean Ox Delivery Rate 02/17 0638 97.9 74 18 114/64 94 Nasal 3.0L Cannula 02/16 2203 98.2 73 18 92 02/16 2200 Nasal 4.0L Cannula 02/16 2200 92/68 02/164 75 92/60 02/16 2021 Nasal 3.5L Cannula 02/16 1443 97.5 74 20 88/56 93 Nasal 3.0L Cannula Intake & Output 02/17 1600 02/17 0800 02/17 0000 Intake Total 1280 780 Output Total 725 600 Balance 555 180 Intake, IV 800 300 Intake, Oral 480 480 Number 0 0 Bowel Movements Output, Urine 725 600 Oxygen saturation improved now on 3 L 94% exam of his chest shows persistent rhonchi cardiac exam shows regular S1 and S2 without murmurs Impression/Plan Impression/Plan Impression/Plan: 63-year-old with CHF now acute kidney injury COPD with gram-negative alfie bronchitis on [place] Recommendations: Follow-up sputum culture and adjust antibiotics accordingly. Continue to taper FiO2. Discussed need for short-term rehabilitation and currently refused by patient.
--- NOTE | 2018-02-17 10:24 | PN- Nephrology ---
Assessment/Plan Nephrology Assessment: 1. LISETTE (non-oliguric) secondary to prerenal factors and/or contrast nephropathy. Renal function improving with IV fluids. 2. Hypotension - improved 3. Gram-negative bronchitis 4. Multiple comorbidities as previously noted Suggestion: 1. Can discontinue IV fluids later today 2. Continue to monitor intake and output 3. Recheck chemistries in a.m. Subjective Subjective: Patient feels a little bit better today although he continues to wheeze and produce thick sputum. On Fortaz for gram-negative bronchitis. He remains afebrile with normal WBC. Blood pressure improved. I/O: 1430/600 yesterday, 1280/725 thus far today. Creatinine down to 1.6. Objective Vital Signs and I&Os Vital Signs Date Time Temp Pulse Resp B/P B/P Pulse O2 O2 Flow FiO2 Mean Ox Delivery Rate 02/17 0951 74 114/64 02/17 0830 93 Nasal 3.5L Cannula 02/17 0638 97.9 74 18 114/64 94 Nasal 3.0L Cannula 02/16 220 98.2 73 18 92 02/16 2200 Nasal 4.0L Cannula 02/16 2200 92/68 02/16 2054 75 92/60 02/16 2021 Nasal 3.5L Cannula 02/16 1443 97.5 74 20 88/56 93 Nasal 3.0L Cannula Intake & Output 02/17 1600 02/17 0400 02/16 1600 02/16 0400 02/15 1600 02/15 0400 Intake Total 1280 780 358 731 8537.8 650 Output Total 843 811 1591 550 450 Balance 555 180 650 -720 714.8 200 Intake, IV 800 300 10 764.8 250 Intake, Oral 480 480 640 480 500 400 Number 0 0 0 Bowel Movements Output, Urine 162 274 6687 550 450 Patient 114 lb 380 lb 110 lb Weight Physical Exam: General: Well-developed, morbidly obese white male on nasal O2 Skin: No jaundice; chronic hyperpigmentation changes in the lower extremities likely due to stasis HEENT: Conjunctivae pink, sclerae anicteric, mucous membranes moist Neck: Without masses or thyromegaly, no supraclavicular or cervical adenopathy Chest: Poor air entry with bilateral wheezes and rhonchi Heart: Regular rate and rhythm without S3 or rub; there is an AICD/pacemaker device in place Abdomen: Obese, soft and nontender without palpable masses or organomegaly Extremities: Bilateral lower extremity edema left worse than right with overlying hyperpigmentation and skin changes more pronounced on the left; right lower leg dressing intact Neuro: Awake and alert with less tendency to nod off today, no focal findings, no asterixis or myoclonus Results Pertinent Lab Results: Laboratory Tests 02/17 02/16 0630 0715 Chemistry Sodium (137 - 145 mmol/L) 141 140 Potassium (3.5 - 5.1 mmol/L) 4.3 4.1 Chloride (98 - 107 mmol/L) 94 L 91 L Carbon Dioxide (22 - 30 mmol/L) 36 H 39 H Anion Gap (5 - 16) 11 10 BUN (9 - 20 mg/dL) 36 H 37 H Creatinine (0.7 - 1.2 mg/dL) 1.6 H 2.0 H Estimated GFR (>60 ml/min) 44 L 34 L BUN/Creatinine Ratio (7 - 25 %) 22.5 18.5 Hematology CBC w Diff NO MAN DIFF REQ NO MAN DIFF REQ WBC (4.8 - 10.8 /CUMM) 6.3 5.6 RBC (4.70 - 6.10 /CUMM) 3.95 L 4.01 L Hgb (14.0 - 18.0 G/DL) 11.1 L 11.2 L Hct (42 - 52 %) 34.1 L 34.3 L MCV (80.0 - 94.0 FL) 86.3 85.5 MCH (27.0 - 31.0 PG) 28.1 28.0 MCHC (33.0 - 37.0 G/DL) 32.5 L 32.8 L RDW (11.5 - 14.5 %) 14.7 H 15.3 H Plt Count (130 - 400 /CUMM) 158 163 MPV (7.4 - 10.4 FL) 7.5 7.5 Gran % (42.2 - 75.2 %) 61.0 62.0 Lymphocytes % (20.5 - 51.1 %) 23.9 25.0 Monocytes % (1.7 - 9.3 %) 12.5 H 10.6 H Eosinophils % (0 - 5 %) 2.1 2.1 Basophils % (0.0 - 2.0 %) 0.5 0.3 Absolute Granulocytes (1.4 - 6.5 /CUMM) 3.8 3.5 Absolute Lymphocytes (1.2 - 3.4 /CUMM) 1.5 1.4 Absolute Monocytes (0.10 - 0.60 /CUMM) 0.8 H 0.6 Absolute Eosinophils (0.0 - 0.7 /CUMM) 0.1 0.1 Absolute Basophils (0.0 - 0.2 /CUMM) 0 0 02/16 02/16 02/15 0619 0619 1930 Coagulation APTT Cancelled Urines Urine Color (YEL,AMB,STR) YEL Urine Clarity (CLEAR) CLEAR Urine pH (5.0 - 8.0) 7.0 Ur Specific [place] (1.001 - 1.035) 1.010 Urine Protein (NEG,<30 MG/DL) NEG Urine Ketones (NEG) NEG Urine Nitrite (NEG) NEG Urine Bilirubin (NEG) NEG Urine Urobilinogen (0.1 - 1.0 EU/dl) 0.2 Ur Leukocyte Esterase (NEG) NEG Ur Microscopic EXAM NOT REQUIRED Urine Hemoglobin (NEG) NEG Ur Random Creatinine (mg/dL) 78.1 Ur Random Sodium (30 - 90 mmol/L) 39 Ur Random Potassium (mmol/L) 26.6 Fraction Sodium Excret (<1% %) 0.6 Urine Glucose (N MG/DL) NEG 02/15 02/15 02/14 02/14 1140 0720 2310 1310 Chemistry Sodium (137 - 145 mmol/L) 139 Potassium (3.5 - 5.1 mmol/L) 4.2 Chloride (98 - 107 mmol/L) 92 L Carbon Dioxide (22 - 30 mmol/L) 39 H Anion Gap (5 - 16) 9 BUN (9 - 20 mg/dL) 35 H Creatinine (0.7 - 1.2 mg/dL) 1.8 H Estimated GFR (>60 ml/min) 39 L BUN/Creatinine Ratio (7 - 25 %) 19.4 Coagulation APTT (25 - 37 SEC) 52 H 68 H 48 H Hematology CBC w Diff NO MAN DIFF REQ WBC (4.8 - 10.8 /CUMM) 6.4 RBC (4.70 - 6.10 /CUMM) 4.01 L Hgb (14.0 - 18.0 G/DL) 11.1 L Hct (42 - 52 %) 34.3 L MCV (80.0 - 94.0 FL) 85.6 MCH (27.0 - 31.0 PG) 27.6 MCHC (33.0 - 37.0 G/DL) 32.2 L RDW (11.5 - 14.5 %) 14.3 Plt Count (130 - 400 /CUMM) 162 MPV (7.4 - 10.4 FL) 7.7 Gran % (42.2 - 75.2 %) 63.1 Lymphocytes % (20.5 - 51.1 %) 24.0 Monocytes % (1.7 - 9.3 %) 10.9 H Eosinophils % (0 - 5 %) 1.6 Basophils % (0.0 - 2.0 %) 0.4 Absolute Granulocytes (1.4 - 6.5 /CUMM) 4.1 Absolute Lymphocytes (1.2 - 3.4 /CUMM) 1.5 Absolute Monocytes (0.10 - 0.60 /CUMM) 0.7 H Absolute Eosinophils (0.0 - 0.7 /CUMM) 0.1 Absolute Basophils (0.0 - 0.2 /CUMM) 0
--- NOTE | 2018-02-17 10:43 | RADIOLOGY REPORT ---
EXAMINATION: XR PORTABLE CHEST CLINICAL INFORMATION: Purulent sputum COMPARISON: 02/11/2018 TECHNIQUE: Portable frontal view of the chest was obtained. FINDINGS: Left chest wall pacer in place. Lead positioning not well assessed. Lung volumes are low. There are hazy basilar opacities. No gross evidence of pleural effusions. No pneumothorax. The cardiomediastinal silhouette remains enlarged. IMPRESSION: Hazy basilar opacities with low lung volumes. This could represent atelectasis or pneumonia. The appearance is fairly similar to prior.
[2018-02-17 11:53] VITALS: BP 110/70
--- NOTE | 2018-02-17 12:15 | PN- Cardiology ---
Subjective Subjective: Doing okay, his cardiac status stable, continues to complain of cough. Started on antibiotics Objective Vital Signs and I&Os Vital Signs Date Time Temp Pulse Resp B/P B/P Pulse O2 O2 Flow FiO2 Mean Ox Delivery Rate 02/17 1153 110/70 02/17 0951 74 114/64 02/17 0830 93 Nasal 3.5L Cannula 02/17 0638 97.9 74 18 114/64 94 Nasal 3.0L Cannula 02/16 220 98.2 73 18 92 02/160 Nasal 4.0L Cannula 02/16 2200 92/68 02/16 2054 75 92/60 02/16 2021 Nasal 3.5L Cannula 02/16 1443 97.5 74 20 88/56 93 Nasal 3.0L Cannula Intake & Output 02/17 1600 02/17 0800 02/17 0000 02/16 1600 02/16 0800 02/16 0000 Intake Total 1280 780 410 240 480 Output Total 866 673 4001 Balance 555 180 410 240 -720 Intake, IV 800 300 10 Intake, Oral 480 480 400 240 480 Number 0 0 0 Bowel Movements Output, Urine 730 921 0364 Patient 114 lb Weight Physical Exam: General Appearance: well developed/nourished overweight, alert and oriented 3 Neck Supple, No JVD, carotids normal bilaterally Cardiovascular irregular S1, S2, 2/6 systolic murmur Lungs bilateral rhonchi and wheezing Abdomen Normal Bowel Sounds, Soft, No Tenderness, No Masses Extremities No Clubbing, No Cyanosis, Normal Pulses, chronic venous stasis changes, 2+ bilateral lower extremity pitting edema to knees Current Medications: Current Medications Sig/[place] Start time Last Medication Dose Route Stop Time Status Admin Albuterol Sulfate 3 ML TID 02/06 1407 AC 02/17 INH 0830 Albuterol Sulfate 2 PUF Q4-6 PRN PRN 02/06 0230 AC INH Amiodarone HCl 200 MG DAILY 02/15 900 AC 02/17 PO 0951 Ammonium Lactate 1 IDANIA BID 02/10 900 AC 02/16 TOP 2053 Apixaban 5 MG BID 02/15 1453 AC 02/17 PO 0951 Atorvastatin Calcium 10 MG 1700 02/06 1700 AC 02/16 PO 175 Carvedilol 12.5 MG BID 02/17 09 AC PO Carvedilol 25 MG BID 02/06 0900 DC 02/16 PO 2053 Ceftazidime 1,000 MG DAILY 02/17 0900 CAN IV 02/18 0901 Ceftazidime 1,000 MG Q24H 02/16 1700 AC 02/16 IV 1754 Colchicine 600 MCG DAILY 02/06 0900 AC 02/17 PO 0951 Escitalopram Oxalate 5 MG DAILY 02/06 0900 AC 02/17 PO 0951 Ferrous Sulfate 325 MG DAILY 02/06 0900 AC 02/17 PO 0951 Fluticasone 2 SPRAY DAILY 02/06 1000 AC 02/17 Propionate JOAQUIN 1000 Gabapentin 400 MG TID 02/06 0900 AC 02/17 PO 0951 Guaifenesin 600 MG Q12 02/07 2100 AC 02/17 PO 0951 Hydroxyzine HCl 100 MG BID 02/17 2100 AC 02/17 PO 114 Hydroxyzine HCl 100 MG BID 02/06 2100 DC 02/16 PO 205 Insulin Aspart 0 TIDAC 02/06 0800 AC 02/17 SC 0852 Ipratropium [place] 2.5 ML TID 02/06 1407 AC 02/17 INH 0830 Montelukast Sodium 10 MG 2100 02/06 2100 AC 02/16 PO 205 Oxycodone/ 2 TAB Q6P PRN 02/11 0815 AC 02/17 Acetaminophen PO 0950 Sodium Chloride 1,000 ML Q10H 02/16 1600 DC 02/17 IV 02/17 1200 0527 Sodium Chloride 2 SPRAY Q4P PRN 02/06 1545 AC 02/11 JOAQUIN 0826 Results Last 48 Hrs of Labs/Mics: Laboratory Tests 02/17/18 0630: Anion Gap 11, Estimated GFR 44 L, BUN/Creatinine Ratio 22.5, CBC w Diff NO MAN DIFF REQ, RBC 3.95 L, MCV 86.3, MCH 28.1, MCHC 32.5 L, RDW 14.7 H, MPV 7.5, Gran % 61.0, Lymphocytes % 23.9, Monocytes % 12.5 H, Eosinophils % 2.1, Basophils % 0.5, Absolute Granulocytes 3.8, Absolute Lymphocytes 1.5, Absolute Monocytes 0.8 H, Absolute Eosinophils 0.1, Absolute Basophils 0 02/16/18 0715: Anion Gap 10, Estimated GFR 34 L, BUN/Creatinine Ratio 18.5, CBC w Diff NO MAN DIFF REQ, RBC 4.01 L, MCV 85.5, MCH 28.0, MCHC 32.8 L, RDW 15.3 H, MPV 7.5, Gran % 62.0, Lymphocytes % 25.0, Monocytes % 10.6 H, Eosinophils % 2.1, Basophils % 0.3, Absolute Granulocytes 3.5, Absolute Lymphocytes 1.4, Absolute Monocytes 0.6, Absolute Eosinophils 0.1, Absolute Basophils 0 02/16/18 0619: Urine Color YEL, Urine Clarity CLEAR, Urine pH 7.0, Ur Specific [place] 1.010, Urine Protein NEG, Urine Ketones NEG, Urine Nitrite NEG, Urine Bilirubin NEG, Urine Urobilinogen 0.2, Ur Leukocyte Esterase NEG, Ur Microscopic EXAM NOT REQUIRED, Urine Hemoglobin NEG, Urine Glucose NEG 02/16/18 0619: Ur Random Creatinine 78.1, Ur Random Sodium 39, Ur Random Potassium 26.6, Fraction Sodium Excret 0.6 02/15/18 1930: APTT Cancelled Assessment/Plan Assessment/Plan Assessment: 1. Acute on chronic HFrEF secondary to non ischemic cardiomyopathy. 2. AICD 3. Chronic venous insufficiency with LE edema and stasis changes 4. New onset atrial fibrillation; now in sinus rhythm post cardioversion 5. Wide complex tachycardia, secondary to atrial fibrillation with aberrant conduction Plan: * Diuretics on hold for acute kidney injury, creatinine improved to 1.6, follow- up labs pending * Continue Eliquis * Continue other cardiac medications. * Please check ECG today * Decision about possible pacemaker interrogation depending on review of ECG Continue telemetry? Yes
[2018-02-17 14:00] VITALS: BP 108/66
[2018-02-17 22:31] VITALS: BP 112/80
[2018-02-18 06:43] VITALS: BP 124/80
[2018-02-18 08:10] LABS: ABSOLUTE BASOPHIL COUNT 0 /CUMM (0.0-0.2); ABSOLUTE EOSINOPHIL COUNT 0.1 /CUMM (0.0-0.7); ABSOLUTE GRANULOCYTE CT 4.6 /CUMM (1.4-6.5); ABSOLUTE LYMPH COUNT 1.5 /CUMM (1.2-3.4); ABSOLUTE MONOCYTE COUNT 0.9 /CUMM (0.10-0.60); BASOPHIL % 0.4 % (0.0-2.0); EOSINOPHIL % 1.5 % (0-5); GRANULOCYTE % 64.2 % (42.2-75.2); HEMATOCRIT 33.3 % (42-52); MEAN CORPUSCULAR HGB 27.5 PG (27.0-31.0); MEAN CORPUSCULAR HGB CONC 31.9 G/DL (33.0-37.0); MEAN CORPUSCULAR VOLUME 86.1 FL (80.0-94.0); MEAN PLATELET VOLUME 7.6 FL (7.4-10.4); PLATELET COUNT 146 /CUMM (130-400); RBC DISTRIBUTION WIDTH 15.1 % (11.5-14.5); RED BLOOD CELL CT 3.87 /CUMM (4.70-6.10); WHITE BLOOD CELL COUNT 7.1 /CUMM (4.8-10.8)
--- NOTE | 2018-02-18 09:43 | PN- Nephrology ---
Assessment/Plan Nephrology Assessment: 1. LISETTE (non-oliguric) secondary to prerenal factors and/or contrast nephropathy. Renal function improved with IV fluids. 2. Hypotension - improved 3. Bronchitis, sputum culture positive for pseudomonas aeruginosa and staph aureus 4. Multiple comorbidities as previously noted Suggestion: 1. Continue current management including holding diuretics; he will likely need restarting of diuretics in the future perhaps on an every other day basis 2. Continue ceftazidime therapy and consider adding staph coverage Subjective Subjective: His major complaint today is nasal stuffiness. He continues to have chronic bronchospasm. I/O: 2930/1525. Creatinine down to 1.3. Objective Vital Signs and I&Os Vital Signs Date Time Temp Pulse Resp B/P B/P Pulse O2 O2 Flow FiO2 Mean Ox Delivery Rate 02/18 0840 92 Nasal 3.5L Cannula 02/18 0830 79 124/80 02/18 0828 79 124/80 02/18 0643 98.6 79 20 124/80 91 Nasal 3.0L Cannula 02/18 0000 Nasal 3.5L Cannula 02/17 2231 98.0 75 16 112/80 91 Nasal 1.0L Cannula 02/17 2115 78 112/80 02/17 1930 94 Nasal 3.5L Cannula 02/17 1600 Nasal 4.0L Cannula 02/17 1400 97.8 74 20 108/66 93 Nasal 3.0L Cannula 02/17 1157 75 110/70 02/17 1153 110/70 02/17 0951 74 114/64 Intake & Output 02/18 1600 02/18 0400 02/17 1600 02/17 0400 02/16 1600 02/16 0400 Intake Total 793 257 6786 780 650 480 Output Total 400 4186 440 0225 Balance 80 650 755 180 650 -720 Intake, IV 1200 300 10 Intake, Oral 182 481 6301 480 640 480 Number 0 0 0 Bowel Movements Output, Urine 400 9986 870 8079 Patient 371 lb 114 lb Weight Physical Exam: General: Well-developed, morbidly obese white male on nasal O2 Skin: No jaundice; chronic hyperpigmentation changes in the lower extremities likely due to stasis HEENT: Conjunctivae pink, sclerae anicteric, mucous membranes moist Neck: Without masses or thyromegaly, no supraclavicular or cervical adenopathy Chest: Poor air entry with bilateral wheezes Heart: Regular rate and rhythm without S3 or rub; there is an AICD/pacemaker device in place Abdomen: Obese, soft and nontender without palpable masses or organomegaly Extremities: Bilateral lower extremity edema left worse than right with overlying hyperpigmentation and skin changes more pronounced on the left; right lower leg dressing intact Neuro: Awake and alert, no focal findings, no asterixis or myoclonus Results Pertinent Lab Results: Laboratory Tests 02/18 02/17 02/17 0630 1750 0857 Chemistry Sodium (137 - 145 mmol/L) 142 139 Cancelled Potassium (3.5 - 5.1 mmol/L) 4.7 4.4 Cancelled Chloride (98 - 107 mmol/L) 97 L 94 L Cancelled Carbon Dioxide (22 - 30 mmol/L) 35 H 36 H Cancelled Anion Gap (5 - 16) 10 9 Cancelled BUN (9 - 20 mg/dL) 29 H 31 H Cancelled Creatinine (0.7 - 1.2 mg/dL) 1.3 H 1.5 H Cancelled Estimated GFR (>60 ml/min) 56 L 48 L BUN/Creatinine Ratio (7 - 25 %) 22.3 20.7 Cancelled Hematology CBC w Diff NO MAN DIFF REQ WBC (4.8 - 10.8 /CUMM) 7.1 RBC (4.70 - 6.10 /CUMM) 3.87 L Hgb (14.0 - 18.0 G/DL) 10.6 L Hct (42 - 52 %) 33.3 L MCV (80.0 - 94.0 FL) 86.1 MCH (27.0 - 31.0 PG) 27.5 MCHC (33.0 - 37.0 G/DL) 31.9 L RDW (11.5 - 14.5 %) 15.1 H Plt Count (130 - 400 /CUMM) 146 MPV (7.4 - 10.4 FL) 7.6 Gran % (42.2 - 75.2 %) 64.2 Lymphocytes % (20.5 - 51.1 %) 21.1 Monocytes % (1.7 - 9.3 %) 12.8 H Eosinophils % (0 - 5 %) 1.5 Basophils % (0.0 - 2.0 %) 0.4 Absolute Granulocytes (1.4 - 6.5 /CUMM) 4.6 Absolute Lymphocytes (1.2 - 3.4 /CUMM) 1.5 Absolute Monocytes (0.10 - 0.60 /CUMM) 0.9 H Absolute Eosinophils (0.0 - 0.7 /CUMM) 0.1 Absolute Basophils (0.0 - 0.2 /CUMM) 0 02/17 02/16 0630 0715 Chemistry Sodium (137 - 145 mmol/L) 141 140 Potassium (3.5 - 5.1 mmol/L) 4.3 4.1 Chloride (98 - 107 mmol/L) 94 L 91 L Carbon Dioxide (22 - 30 mmol/L) 36 H 39 H Anion Gap (5 - 16) 11 10 BUN (9 - 20 mg/dL) 36 H 37 H Creatinine (0.7 - 1.2 mg/dL) 1.6 H 2.0 H Estimated GFR (>60 ml/min) 44 L 34 L BUN/Creatinine Ratio (7 - 25 %) 22.5 18.5 Hematology CBC w Diff NO MAN DIFF REQ NO MAN DIFF REQ WBC (4.8 - 10.8 /CUMM) 6.3 5.6 RBC (4.70 - 6.10 /CUMM) 3.95 L 4.01 L Hgb (14.0 - 18.0 G/DL) 11.1 L 11.2 L Hct (42 - 52 %) 34.1 L 34.3 L MCV (80.0 - 94.0 FL) 86.3 85.5 MCH (27.0 - 31.0 PG) 28.1 28.0 MCHC (33.0 - 37.0 G/DL) 32.5 L 32.8 L RDW (11.5 - 14.5 %) 14.7 H 15.3 H Plt Count (130 - 400 /CUMM) 158 163 MPV (7.4 - 10.4 FL) 7.5 7.5 Gran % (42.2 - 75.2 %) 61.0 62.0 Lymphocytes % (20.5 - 51.1 %) 23.9 25.0 Monocytes % (1.7 - 9.3 %) 12.5 H 10.6 H Eosinophils % (0 - 5 %) 2.1 2.1 Basophils % (0.0 - 2.0 %) 0.5 0.3 Absolute Granulocytes (1.4 - 6.5 /CUMM) 3.8 3.5 Absolute Lymphocytes (1.2 - 3.4 /CUMM) 1.5 1.4 Absolute Monocytes (0.10 - 0.60 /CUMM) 0.8 H 0.6 Absolute Eosinophils (0.0 - 0.7 /CUMM) 0.1 0.1 Absolute Basophils (0.0 - 0.2 /CUMM) 0 0 02/16 02/16 02/15 0619 0619 1930 Coagulation APTT Cancelled Urines Urine Color (YEL,AMB,STR) YEL Urine Clarity (CLEAR) CLEAR Urine pH (5.0 - 8.0) 7.0 Ur Specific [place] (1.001 - 1.035) 1.010 Urine Protein (NEG,<30 MG/DL) NEG Urine Ketones (NEG) NEG Urine Nitrite (NEG) NEG Urine Bilirubin (NEG) NEG Urine Urobilinogen (0.1 - 1.0 EU/dl) 0.2 Ur Leukocyte Esterase (NEG) NEG Ur Microscopic EXAM NOT REQUIRED Urine Hemoglobin (NEG) NEG Ur Random Creatinine (mg/dL) 78.1 Ur Random Sodium (30 - 90 mmol/L) 39 Ur Random Potassium (mmol/L) 26.6 Fraction Sodium Excret (<1% %) 0.6 Urine Glucose (N MG/DL) NEG 02/15 1140 Coagulation APTT (25 - 37 SEC) 52 H
--- NOTE | 2018-02-18 10:37 | PN- Housestaff ---
Grace HARPER,Mile 02/18/18 1036: Subjective Follow-up For: afib with RVR kidney injury chf Complaints: pain scale (0-10) Tele-Events Since Last Visit: Paced rhythm 74-75, no events Subjective: Patient continues to be at baseline respiratory status, 3-4 L with low 90s saturation. He continues to have congestion and is requesting Afrin nasal spray. He continues to have lower extremity edema and pain, back pain. Review of Systems Constitutional: Reports: no symptoms. EENTM: Reports: no symptoms. Cardiovascular: Reports: no symptoms. Respiratory: Reports: cough, short of breath. Gastrointestinal: Reports: no symptoms. Genitourinary: Reports: no symptoms. Musculoskeletal: Reports: back pain, muscle pain. Skin: Reports: change in skin color, lesions. Neurological/Psychological: Reports: see HPI. Objective Last 24 Hrs of Vital Signs/I&O Vital Signs Date Time Temp Pulse Resp B/P B/P Pulse O2 O2 Flow FiO2 Mean Ox Delivery Rate 02/18 1409 98.2 74 20 106/70 92 Nasal 3.0L Cannula 02/18 0840 92 Nasal 3.5L Cannula 02/18 0830 79 124/80 02/18 0828 79 124/80 02/18 0643 98.6 79 20 124/80 91 Nasal 3.0L Cannula 02/18 0000 Nasal 3.5L Cannula 02/17 2231 98.0 75 16 112/80 91 Nasal 1.0L Cannula 02/17 2115 78 112/80 02/17 1930 94 Nasal 3.5L Cannula 02/17 1600 Nasal 4.0L Cannula Intake & Output 02/18 1600 02/18 0800 02/18 0000 Intake Total 480 650 Output Total 400 Balance 80 650 Intake, Oral 480 650 Output, Urine 400 Patient 371 lb Weight Physical Exam General Appearance: Alert, Oriented X3, Cooperative, No Acute Distress Skin: No Rashes, lower extremity chronic venous stasis changes Skin Temp/Moisture Exam: Warm/Dry Sepsis Skin Exam (color): Normal for Ethnicity HEENT: Atraumatic, EOMI, Mucous Membr. moist/pink Neck: Supple, No JVD Cardiovascular: Regular Rate, Normal S1, Normal S2, No Murmurs Lungs: Clear to Auscultation, Normal Air Movement Abdomen: Normal Bowel Sounds, Soft, No Tenderness Neurological: Normal Speech Extremities: No Clubbing, No Cyanosis, Normal Pulses Vascular: Normal Pulses Current Medications: Current Medications Sig/Keaton Start time Last Medication Dose Route Stop Time Status Admin Albuterol Sulfate 3 ML TID 02/06 1407 AC 02/18 INH 1335 Albuterol Sulfate 2 PUF Q4-6 PRN PRN 02/06 0230 AC INH Amiodarone HCl 200 MG DAILY 02/15 0900 AC 02/18 PO 0830 Ammonium Lactate 1 IDANIA BID 02/10 09 AC 02/17 TOP 2116 Apixaban 5 MG BID 02/15 1453 AC 02/18 PO 0829 Atorvastatin Calcium 10 MG 1700 02/06 1700 AC 02/17 PO 1658 Carvedilol 25 MG BID 02/18 09 AC 02/18 PO 0828 Carvedilol 12.5 MG BID 02/17 0900 DC 02/17 PO 211 Ceftazidime 1,000 MG Q24H 02/16 1700 DC 02/17 IV 1658 Colchicine 600 MCG DAILY 02/06 0900 AC 02/18 PO 0829 Escitalopram Oxalate 5 MG DAILY 02/06 0900 AC 02/18 PO 0829 Ferrous Sulfate 325 MG DAILY 02/06 0900 AC 02/18 PO 0829 Fluticasone 2 SPRAY DAILY 02/06 1000 AC 02/18 Propionate JOAQUIN 0830 Gabapentin 400 MG TID 02/06 0900 AC 02/18 PO 0828 Guaifenesin 600 MG Q12 02/07 2100 AC 02/18 PO 0829 Hydroxyzine HCl 100 MG BID 02/17 2100 AC 02/18 PO 0829 Insulin Aspart 0 TIDAC 02/06 0800 AC 02/18 SC 1223 Ipratropium [place] 2.5 ML TID 02/06 1407 AC 02/18 INH 1335 Montelukast Sodium 10 MG 2100 02/06 2100 AC 02/17 PO 2115 Oxycodone/ 2 TAB Q6P PRN 02/11 0815 AC 02/18 Acetaminophen PO 0828 Oxymetazoline HCl 2 SPRAY BID 02/18 1006 AC 02/18 JOAQUIN 02/21 1005 1223 Sodium Chloride 2 SPRAY Q4P PRN 02/06 1545 AC 02/11 JOAQUIN 0826 Last 24 Hrs of Lab/Joaquim Results Last 24 Hrs of Labs/Mics: Laboratory Tests 02/18/18 0630: Anion Gap 10, Estimated GFR 56 L, BUN/Creatinine Ratio 22.3, CBC w Diff NO MAN DIFF REQ, RBC 3.87 L, MCV 86.1, MCH 27.5, MCHC 31.9 L, RDW 15.1 H, MPV 7.6, Gran % 64.2, Lymphocytes % 21.1, Monocytes % 12.8 H, Eosinophils % 1.5, Basophils % 0.4, Absolute Granulocytes 4.6, Absolute Lymphocytes 1.5, Absolute Monocytes 0.9 H, Absolute Eosinophils 0.1, Absolute Basophils 0 02/17/18 1750: Anion Gap 9, Estimated GFR 48 L, BUN/Creatinine Ratio 20.7 Assessment/Plan Assessment: 62 year old male with a past medical history significant for HFrEF (25-30%) nonischemic cardiomyopathy s/p dual chamber PPM/AICD, 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 Patient was admitted to ICU for atrial fibrillation with rapid ventricular rate requiring amiodarone drip and wide complex tachycardia on 02/06. Patient was previously admitted from January 08 to January 15 for right lower extremity cellulitis, heart failure exacerbation and acute kidney injury. After the discharge he became sick again within 3 days and was admitted at [facility] for a few days, then stepdown unit and discharged approximately a week back. He received a call from pacemaker people that his heart rate was running really high and was suggested to go to ER. He was significantly tachycardic at arrival and it was wide complex tachycardia, ECG appears A. fib with aberrancy causing wide complex. When patient is asked if he has a previous history of A. fib he says yes, none of the previous records mention that he has A. fib, he was not anticoagulated if he had history of A. fib thus it was unclear whether it was new onset or old but he appeared in RVR with aberrancy causing wide complexes. ECG findings were discussed with alarm installation technician who suggested to start amiodarone drip. Additionally , given his high stroke risk he was started on heparin drip. UPDATE 02/17: The patient has had cardioversion and also has a pacemaker defibrillator. The patient is diuresis dependent, has HFrEF 25%-30%. However with the elevated Cr, we held lasix, diamox, lisinopril. Breathing continues to be difficult for the patient but no change since yesterday. Patient has been net positive the past couple days as he was on fluids and is not being actively diuresed. Vitals are stable. Serum Cr has decreased today to a low of 1.3. We checked a UA along with FeNa and random Cr, K, Na 2 days ago prior to starting fluids. Results suggest prerenal kidney failure (kidneys aren't seeing blood volume secondary to CHF) or contrast induced nephropathy and fluids successfully lowered creatinine. Patient is currently off fluids as of yesterday. Patient is anticoagulated on Eliquis. Yesterday the patient's LRC was speciated - positive for pseudomonas and staph with history of MRSA. No fever or WBC count again today so this was presumed to be colonization. Problem List and Plan: 1. Possible Aortic dissection seen in the descending aorta on ANUPAMA -CTA chest negative for aortic dissection, however there is a new airspace disease of the right lower lobe, patient is afebrile and without leukocytosis, we decided to monitor for now. No chest pain. Patient has had stable vitals. 2. Atrial fibrillation with rapid ventricular response/ WIDE COMPLEXES: Patient presented with worsening shortness of breath, pleuritic chest pain at rest. Received call from pacemaker people that his heart rate was running really high and was suggested to go to the ER. On arrival he was found to have tachycardia, EKG appears A. fib with aberrancy causing wide-complex, tachycardic 130-150. He was hemodynamically stable. ECG findings were discussed with alarm installation technician who suggested to start amiodarone drip. Given his high stroke risk/ chadsvasc score he was started on heparin drip. S/p cardioversion with transesophageal echocardiogram- 02/12- in sinus now. * Continue amiodarone 200mg daily. Was switched from 400mg daily. * Continue Eliquis 5mg bid. * Serial troponins negative * Follow-up echocardiogram showed abnormal left ventricular ejection fraction estimated at 25-30%. * Continue home medication carvedilol at 25 mg twice a day, patient's blood pressure overnight was 124/80. Continue to monitor blood pressure. * Follow cardiology recommendations * Ironing Worker consulted: Interrogation of ICD was done, changes were made to his hardware. * Continuous telemetry monitoring * Monitor vitals every shift Electrophysiology information: Patient has 2 episodes of wide complex tachycardia with an ICD in place without shock therapy. One episode was noted in ER at the time of admission and one more episode with 28 beat run on 2017. Patient was asymptomatic at that time. He has ICD in place. No shock was delivered. The device was interrogated by the [employer] patient financial representative and found to be functioning properly. It appears as though the patient didn't sustain ventricular tachycardia long enough during any one of these episodes to trigger the device algorithym for antitachycardia pacing or shock therapy. November 2015- He presented with severe biventricular heart failure at that time. An echocardiogram done on 12/12/2015 showed a severe reduction in LV function with an EF as low as 20%. There was concentric LVH, a dilated right ventricle, a dilated IVC, and a broad left bundle branch block. he was an excellent candidate for cardiac resynchronization therapy given his very broad left bundle branch block. * Ironing Worker Dr. Willoughby was consulted. * AICD device was interrogated, able to determine that all his arrhythmias seen are due to conduction of atrial fibrillation, not from V. tach * Several reprogramming changes were made to his device including increasing his rates and 5 beats minute to allow more biventricular pacing and also placed on conducted A. fib response. 2. Acute on chronic heart failure with reduced ejection fraction Exertional dyspnea most Likely from HFrEF exacerbation precipitated by atrial fibrillation w/ RVR and pulmonary congestion. Patient chest x-ray showed central pulmonary vascular congestion and early interstitial edema. ProBNP elevated 6490. CXR today shows hazy basilar opacities with decreased lung volumes indicative of atelectasis or pneumonia. * Continue to hold diuretics * Daily weights * Ins and outs * Checked serial troponin and EKG, ruled out ACS * Hay Stacker Operator on board * Echo showed ejection fraction 25% * Continue Coreg 25 mg twice a day * Discontinued lisinopril, diuretics diamox and lasix, secondary to kidney injury. Avoid NSAIDs and other nephrotoxins. * Continue atorvastatin * Monitor renal function * Maintain potassium above 4 and magnesium 2 COPD: On 4 L nasal cannula/chronic hypercapnic respiratory failure/acute hypoxic respiratory failure and NEW POSITIVE RESPIRATORY CULTURE Acute on chronic hypoxic respiratory failure most likely from CHF exacerbation and rapid A. fib. CT showed complete collapse of the right middle lobe of uncertain etiology. Endobronchial lesion\malignancy are not suggested. Follow up imaging of the lung showed new airspace disease in the right lower lobe and unchanged airspace disease in the posterior right upper lobe. Chest x-ray from yesterday showed hazy basilar opacities with low lung volumes with a presentation fairly similar to prior study. Sputum culture returned as positive for GNRs and GPC, shows pseudomonas and staph, previously MRSA. However without an elevated white cell count and afebrile, this is presumed to be colonization and we will monitor off antibiotics. * Follow-up chest x-ray today. * TRC evaluation * Continue supplemental oxygen, wean down as tolerated * Continue advair, singulair * Nebulized albuterol and ipatropium * Chest physiotherapy/Acupella therapy * Mucomyst * Patient needs outpatient CAT scan chest after 2 months for resolution * Continue to hold diamox for worsening renal function * If fever or elevated white cell count, consider antibiotic therapy. JORY: * CPAP-although patient is noncompliant * Check ABG for increased somnolence prn DM: * Hold oral hypoglycemics * Diabetic diet * Accuchecks TIDAC/HS * Novolog sliding scale insulin * Continue gabapentin for neuropathy Gout: * Continue colchicine 0.6 mg. * Avoid giving more than 0.6 mg given drug interaction with amiodarone Depression * continue Lexapro 5 mg daily Hyperlipidemia * Continue Lipitor 10 daily. * Avoid simvastatin given drug interaction with amiodarone LISETTE ON STAGE 2 CKD * FeNa .6. This suggests prerenal causes of contrast induced nephropathy. * Cr has decreased to 1.3 after giving him 100 mL per hour normal saline fluid challenge. * Nephrology following * We have held lisinopril, diamox, and lasix for worsening renal function. Diabetic diet with 2gram sodium restriction DVT ppx ELIQUIS DNI Problem List: 1. LISETTE (acute kidney injury) 2. Afib 3. Wide-complex tachycardia 4. Chronic venous stasis dermatitis 5. CHF (congestive heart failure) 6. Diabetes Pain Ratin Pain Location: lower legs Pain Goal: Pain 4 or less Pain Plan: prn Tomorrow's Labs & Rationales: cbc bep Janelle Shaikh 02/18/18 1401: Attending MD Review Statement Attending Statement Attending MD Statement: examined this patient, discuss w/resident/PA/BUFFING AND SUEDING MACHINE OPERATOR, agreed w/resident/PA/BUFFING AND SUEDING MACHINE OPERATOR, discussed with family, reviewed EMR data (avail), discussed with nursing, discussed with case mgmt, reviewed images, amended to note Attending Assessment/Plan: Patient with c/o cough and sputum production. Patient on baseline home oxygen. Patient creatinine with imporvement to 1.3. Patient is receiving ceftaz, f/u final cultures. Afebrile not on steroids. No wbc. Nephrology advised to hold diuretics for now. Follow up cardiology recommnedations for resume diruetics as he ahs poor baseline heart function EF 25% with high risk of landing into CHF exacerbation. Maybe trial of lasix low dose and see his marci kunz tomorrow. Needs to follow up with chf clinic as outpatient in 1 week. Cont other meds for now.
[2018-02-18 14:09] VITALS: BP 106/70
--- NOTE | 2018-02-18 15:02 | RADIOLOGY REPORT ---
EXAMINATION: XR PORTABLE CHEST CLINICAL INFORMATION: Worsening of pulmonary status. COMPARISON: Yesterday. TECHNIQUE: Portable frontal view of the chest was obtained. FINDINGS: Since yesterday's study, there's been no interval change. Once again noted are low lung volumes and cardiomegaly. Bibasilar airspace disease probably persists but was better seen on the patient's prior CT scan. IMPRESSION: No change from yesterday.
--- NOTE | 2018-02-18 16:29 | PN- Cardiology ---
Subjective Subjective: Cardiology status stable Objective Vital Signs and I&Os Vital Signs Date Time Temp Pulse Resp B/P B/P Pulse O2 O2 Flow FiO2 Mean Ox Delivery Rate 02/18 1409 98.2 74 20 106/70 92 Nasal 3.0L Cannula 02/18 0840 92 Nasal 3.5L Cannula 02/18 0830 79 124/80 02/18 0828 79 124/80 02/18 0643 98.6 79 20 124/80 91 Nasal 3.0L Cannula 02/18 0000 Nasal 3.5L Cannula 02/17 2231 98.0 75 16 112/80 91 Nasal 1.0L Cannula 02/17 2115 78 112/80 02/17 1930 94 Nasal 3.5L Cannula Intake & Output 02/18 1600 02/18 0800 02/18 0000 02/17 1600 02/17 0800 02/17 0000 Intake Total 547 557 3045 1280 780 Output Total 400 800 725 600 Balance 80 650 200 555 180 Intake, IV 400 800 300 Intake, Oral 480 650 600 480 480 Number 0 0 Bowel Movements Output, Urine 400 800 725 600 Patient 371 lb Weight Physical Exam: General Appearance: well developed/nourished, overweight, alert, awake, HEENT: normal Neck: supple, JVP normal, carotid upstrokes normal bilaterally, no masses or thyromegaly Respiratory: chest non-tender, scattered rhonchi bilaterally Cardiovascular: regular rate/rhythm, normal S1, S2, 1/6 to 2/6 systolic murmur Abdomen: normal bowel sounds, soft, non-tender Extremities: normal inspection, 2+ bilateral edema with stasis changes Current Medications: Current Medications Sig/Keaton Start time Last Medication Dose Route Stop Time Status Admin Albuterol Sulfate 3 ML TID 02/06 1407 AC 02/18 INH 1335 Albuterol Sulfate 2 PUF Q4-6 PRN PRN 02/06 0230 AC INH Amiodarone HCl 200 MG DAILY 02/15 09 AC 02/18 PO 0830 Ammonium Lactate 1 IDANIA BID 02/10 09 AC 02/18 TOP 1427 Apixaban 5 MG BID 02/15 1453 AC 02/18 PO 0829 Atorvastatin Calcium 10 MG 1700 02/06 1700 AC 02/18 PO 1622 Carvedilol 25 MG BID 02/18 0900 AC 02/18 PO 0828 Carvedilol 12.5 MG BID 02/17 0900 DC 02/17 PO 211 Ceftazidime 1,000 MG Q24H 02/16 1700 DC 02/17 IV 1658 Colchicine 600 MCG DAILY 02/06 09 AC 02/18 PO 08 Escitalopram Oxalate 5 MG DAILY 02/06 09 AC 02/18 PO 0829 Ferrous Sulfate 325 MG DAILY 02/06 09 AC 02/18 PO 0829 Fluticasone 2 SPRAY DAILY 02/06 1000 AC 02/18 Propionate JOAQUIN 0830 Furosemide 20 MG ONCE ONE 02/18 1530 DC 02/18 PO 02/18 1531 1622 Gabapentin 400 MG TID 02/06 09 AC 02/18 PO 1426 Guaifenesin 600 MG Q12 02/07 2100 AC 02/18 PO 08 Hydroxyzine HCl 100 MG BID 02/17 2100 AC 02/18 PO 0829 Insulin Aspart 0 TIDAC 02/06 08 AC 02/18 SC 1223 Ipratropium [place] 2.5 ML TID 02/06 1407 AC 02/18 INH 1335 Montelukast Sodium 10 MG 02/06 2100 AC 02/17 PO 211 Oxycodone/ 2 TAB Q6P PRN 02/11 0815 AC 02/18 Acetaminophen PO 1426 Oxymetazoline HCl 2 SPRAY BID 02/18 1006 AC 02/18 JOAQUIN 02/21 1005 1223 Sodium Chloride 2 SPRAY Q4P PRN 02/06 1545 AC 02/11 JOAQUIN 08 Results Last 48 Hrs of Labs/Mics: Laboratory Tests 02/18/18 0630: Anion Gap 10, Estimated GFR 56 L, BUN/Creatinine Ratio 22.3, CBC w Diff NO MAN DIFF REQ, RBC 3.87 L, MCV 86.1, MCH 27.5, MCHC 31.9 L, RDW 15.1 H, MPV 7.6, Gran % 64.2, Lymphocytes % 21.1, Monocytes % 12.8 H, Eosinophils % 1.5, Basophils % 0.4, Absolute Granulocytes 4.6, Absolute Lymphocytes 1.5, Absolute Monocytes 0.9 H, Absolute Eosinophils 0.1, Absolute Basophils 0 02/17/18 1750: Anion Gap 9, Estimated GFR 48 L, BUN/Creatinine Ratio 20.7 02/17/18 0857: Sodium Cancelled, Potassium Cancelled, Chloride Cancelled, Carbon Dioxide Cancelled, Anion Gap Cancelled, BUN Cancelled, Creatinine Cancelled, BUN/ Creatinine Ratio Cancelled 02/17/18 0630: Anion Gap 11, Estimated GFR 44 L, BUN/Creatinine Ratio 22.5, CBC w Diff NO MAN DIFF REQ, RBC 3.95 L, MCV 86.3, MCH 28.1, MCHC 32.5 L, RDW 14.7 H, MPV 7.5, Gran % 61.0, Lymphocytes % 23.9, Monocytes % 12.5 H, Eosinophils % 2.1, Basophils % 0.5, Absolute Granulocytes 3.8, Absolute Lymphocytes 1.5, Absolute Monocytes 0.8 H, Absolute Eosinophils 0.1, Absolute Basophils 0 Assessment/Plan Assessment/Plan Assessment: 1. Acute on chronic HFrEF secondary to non ischemic cardiomyopathy. 2. AICD 3. Chronic venous insufficiency with LE edema and stasis changes 4. New onset atrial fibrillation; now in sinus rhythm post cardioversion 5. Wide complex tachycardia, secondary to atrial fibrillation with aberrant conduction Plan: * In face of improved renal function, consider restarting Lasix 20 mg daily for lower extremity edema * Continue Eliquis * Continue other cardiac medications. * Repeat ECG continues to show normal sinus rhythm * In view of sinus rhythm on ECG, there is no reason to interrogate pacemaker at the present time Discharge planning Continue telemetry? Yes
[2018-02-18 23:01] VITALS: BP 116/78
[2018-02-19 06:53] VITALS: BP 110/72
--- NOTE | 2018-02-19 07:25 | PN- Pulmonary ---
Subjective HPI/Critical Care Issues: She continues with a productive cough congestion and wheezing Objective Current Medications: Current Medications Sig/Keaton Start time Last Medication Dose Route Stop Time Status Admin Albuterol Sulfate 3 ML TID 02/06 1407 AC 02/18 INH 1951 Albuterol Sulfate 2 PUF Q4-6 PRN PRN 02/06 0230 AC INH Amiodarone HCl 200 MG DAILY 02/15 09 AC 02/18 PO 0830 Ammonium Lactate 1 IDANIA BID 02/10 09 AC 02/18 TOP 2123 Apixaban 5 MG BID 02/15 1453 AC 02/18 PO 212 Atorvastatin Calcium 10 MG 1700 02/06 1700 AC 02/18 PO 1622 Carvedilol 25 MG BID 02/18 09 AC 02/18 PO 2130 Ceftazidime 1,000 MG Q24H 02/16 1700 DC 02/17 IV 1658 Colchicine 600 MCG DAILY 02/06 0900 AC 02/18 PO 0829 Escitalopram Oxalate 5 MG DAILY 02/06 09 AC 02/18 PO 0829 Ferrous Sulfate 325 MG DAILY 02/06 0900 AC 02/18 PO 0829 Fluticasone 2 SPRAY DAILY 02/06 1000 AC 02/18 Propionate JOAQUIN 0830 Furosemide 20 MG ONCE ONE 02/18 1530 DC 02/18 PO 02/18 1531 1622 Gabapentin 400 MG TID 02/06 0900 AC 02/18 PO 2124 Guaifenesin 600 MG Q12 02/07 2100 AC 02/18 PO 212 Hydroxyzine HCl 100 MG BID 02/17 2100 AC 02/18 PO 212 Insulin Aspart 0 TIDAC 02/06 0800 AC 02/18 SC 1716 Ipratropium [place] 2.5 ML TID 02/06 1407 AC 02/18 INH 195 Montelukast Sodium 10 MG 2100 02/06 2100 AC 02/18 PO 2123 Oxycodone/ 2 TAB Q6P PRN 02/11 0815 AC 02/18 Acetaminophen PO 1426 Oxymetazoline HCl 2 SPRAY BID 02/18 1006 AC 02/18 JOAQUIN 02/21 1005 2123 Sodium Chloride 2 SPRAY Q4P PRN 02/06 1545 AC 02/11 JOAQUIN 0826 Vital Signs & I&O Last 24 Hrs of Vitals and I&O: Vital Signs Date Time Temp Pulse Resp B/P B/P Pulse O2 O2 Flow FiO2 Mean Ox Delivery Rate 02/19 0653 98.2 74 20 110/72 94 Nasal Cannula 02/19 0000 95 Nasal 3.5L Cannula 02/18 2301 98.3 77 20 116/78 92 Nasal Cannula 02/18 2130 76 116/76 02/18 1956 94 Nasal 3.5L Cannula 02/18 1600 Nasal 3.5L Cannula 02/18 1409 98.2 74 20 106/70 92 Nasal 3.0L Cannula 02/18 0840 92 Nasal 3.5L Cannula 02/18 0830 79 124/80 02/18 0828 79 124/80 02/18 0800 91 Nasal 3.5L Cannula Intake & Output 02/19 0800 02/19 0000 02/18 1600 Intake Total 100 520 600 Output Total Balance 100 520 600 Intake, Oral 100 520 600 Patient 371 lb Weight Weight Chair scale Measurement Method And saturation 3.5 L 94% exam of his chest showed bilateral expiratory rhonchi and wheezing cardiac exam shows regular S1 and S2 there is persistent lower extremity edema Impression/Plan Impression/Plan Impression/Plan: 63-year-old gentleman with COPD congestive heart failure has persistent productive cough with rhonchi and wheezing Recommendations: Recommend treating positive sputum culture given persistent respiratory symptoms and failure to improve, prednisone 40 mg a day,
--- NOTE | 2018-02-19 07:46 | PN- Cardiology ---
Subjective Subjective: Patient remained stable from a cardiac perspective. He remains in sinus rhythm. No new cardiac symptoms or issues. Continues to have some congestion and cough. Objective Vital Signs and I&Os Vital Signs Date Time Temp Pulse Resp B/P B/P Pulse O2 O2 Flow FiO2 Mean Ox Delivery Rate 02/19 0653 98.2 74 20 110/72 94 Nasal Cannula 02/19 0000 95 Nasal 3.5L Cannula 02/18 2301 98.3 77 20 116/78 92 Nasal Cannula 02/18 2130 76 116/76 02/18 1956 94 Nasal 3.5L Cannula 02/18 1600 Nasal 3.5L Cannula 02/18 1409 98.2 74 20 106/70 92 Nasal 3.0L Cannula 02/18 0840 92 Nasal 3.5L Cannula 02/18 0830 79 124/80 02/18 0828 79 124/80 02/18 0800 91 Nasal 3.5L Cannula Intake & Output 02/19 0800 02/19 0000 02/18 1600 02/18 0800 02/18 0000 02/17 1600 Intake Total 100 520 600 079 434 2412 Output Total 400 800 Balance 100 520 600 80 650 200 Intake, IV 400 Intake, Oral 100 520 600 480 650 600 Output, Urine 400 800 Patient 371 lb 371 lb Weight Weight Chair scale Measurement Method Physical Exam: General Appearance: well developed/nourished, alert, awake, oriented Head: normal HEENT: Normal Neck: supple, JVP normal, carotid upstrokes normal bilaterally, no masses or thyromegaly Respiratory: chest non-tender, coarse bilateral rhonchi Cardiovascular: regular rate/rhythm, normal S1, S2, 1-2/6 systolic murmur Abdomen: normal bowel sounds, soft, non-tender Extremities: persistent lower extremity edema with stasis changes Vascular: Pulses are 2+ and equal bilaterally Neurologic: Grossly normal/nonfocal Current Medications: Current Medications Sig/Keaton Start time Last Medication Dose Route Stop Time Status Admin Albuterol Sulfate 3 ML TID 02/06 140 AC 02/18 INH 1951 Albuterol Sulfate 2 PUF Q4-6 PRN PRN 02/06 230 AC INH Amiodarone HCl 200 MG DAILY 02/15 09 AC 02/18 PO 08 Ammonium Lactate 1 IDANIA BID 02/10 09 AC 02/18 TOP 2122 Apixaban 5 MG BID 02/15 1453 AC 02/18 PO 2124 Atorvastatin Calcium 10 MG 1700 02/06 1700 AC 02/18 PO 1622 Carvedilol 25 MG BID 02/18 0900 AC 02/18 PO 2130 Ceftazidime 1,000 MG Q24H 02/16 1700 DC 02/17 IV 1658 Colchicine 600 MCG DAILY 02/06 0900 AC 02/18 PO 0829 Escitalopram Oxalate 5 MG DAILY 02/06 0900 AC 02/18 PO 0829 Ferrous Sulfate 325 MG DAILY 02/06 0900 AC 02/18 PO 0829 Fluticasone 2 SPRAY DAILY 02/06 1000 AC 02/18 Propionate JOAQUIN 08 Furosemide 20 MG ONCE ONE 02/18 1530 DC 02/18 PO 02/18 1531 1622 Gabapentin 400 MG TID 02/06 0900 AC 02/18 PO 212 Guaifenesin 600 MG Q12 02/07 2100 AC 02/18 PO 2123 Hydroxyzine HCl 100 MG BID 02/17 2100 AC 02/18 PO 212 Insulin Aspart 0 TIDAC 02/06 0800 AC 02/18 SC 1716 Ipratropium [place]ley 2.5 ML TID 02/06 1407 AC 02/18 INH 1953 Montelukast Sodium 10 MG 2100 02/06 2100 AC 02/18 PO 2123 Oxycodone/ 2 TAB Q6P PRN 02/11 0815 AC 02/18 Acetaminophen PO 1426 Oxymetazoline HCl 2 SPRAY BID 02/18 1006 AC 02/18 JOAQUIN 02/21 1005 2123 Sodium Chloride 2 SPRAY Q4P PRN 02/06 1545 AC 02/11 JOAQUIN 08 Results Last 48 Hrs of Labs/Mics: Laboratory Tests 02/19/18 0700: Sodium Pending, Potassium Pending, Chloride Pending, Carbon Dioxide Pending, Anion Gap Pending, BUN Pending, Creatinine Pending, BUN/Creatinine Ratio Pending , CBC w Diff Pending, WBC Pending, RBC Pending, Hgb Pending, Hct Pending, MCV Pending, MCH Pending, MCHC Pending, RDW Pending, Plt Count Pending, MPV Pending 02/18/18 0630: Anion Gap 10, Estimated GFR 56 L, BUN/Creatinine Ratio 22.3, CBC w Diff NO MAN DIFF REQ, RBC 3.87 L, MCV 86.1, MCH 27.5, MCHC 31.9 L, RDW 15.1 H, MPV 7.6, Gran % 64.2, Lymphocytes % 21.1, Monocytes % 12.8 H, Eosinophils % 1.5, Basophils % 0.4, Absolute Granulocytes 4.6, Absolute Lymphocytes 1.5, Absolute Monocytes 0.9 H, Absolute Eosinophils 0.1, Absolute Basophils 0 02/17/18 1750: Anion Gap 9, Estimated GFR 48 L, BUN/Creatinine Ratio 20.7 02/17/18 0857: Sodium Cancelled, Potassium Cancelled, Chloride Cancelled, Carbon Dioxide Cancelled, Anion Gap Cancelled, BUN Cancelled, Creatinine Cancelled, BUN/ Creatinine Ratio Cancelled Assessment/Plan Assessment/Plan Assessment: 1. Acute on chronic HFrEF secondary to non ischemic cardiomyopathy. 2. AICD 3. Chronic venous insufficiency with LE edema and stasis changes 4. New onset atrial fibrillation; now in sinus rhythm post cardioversion 5. Wide complex tachycardia, secondary to atrial fibrillation with aberrant conduction Plan: * In face of improved renal function, continue Lasix 20 mg daily p.o. at discharge if okay with nephrology * Continue Eliquis * Continue other cardiac medications. * Repeat ECG continues to show normal sinus rhythm * In view of sinus rhythm on ECG, there is no reason to interrogate pacemaker at the present time Discharge planning as outlined, CHF clinic follow-up arranged, follow up with me in the office in 1 week Continue telemetry? No
--- NOTE | 2018-02-19 08:06 | Patient Discharge Instructions ---
Discharge Instructions General Discharge Information You were seen/treated for: ABNORMAL HEART RATE AND RHYTHM CONGESTIVE HEART FAILURE COPD PNEUMONIA You had these procedures: ANUPAMA Special Instructions: 1. Please follow up with PCP in one week 2. Please follow up with cardiology Dr. George in one week 3. [facility] 4. Please follow up with integrity assessor Dr. Puente in one week. Diet Continue normal diet: No Recommended Diet: Regular no added salt Activity Full Activity/No Limits: Yes (as tolerated) Acute Coronary Syndrome Inclusion Criteria At DC or during hospital stay patient has or had the following: ACS DIAGNOSIS No Discharge Core Measures Meds if any: Prescribed or Continued at Discharge Meds if any: NOT Prescribed or Continued at Discharge Congestive Heart Failure Inclusion Criteria At DC or during hospital stay patient has or had the following: CHF DIAGNOSIS No Discharge Core Measures Meds if any: Prescribed or Continued at Discharge Meds if any: NOT Prescribed or Continued at Discharge Cerebrovascular accident Inclusion Criteria At DC or during hospital stay patient has or had the following: CVA/TIA Diagnosis No Discharge Core Measures Meds if any: Prescribed or Continued at Discharge Meds if any: NOT Prescribed or Continued at Discharge Venous thromboembolism Inclusion Criteria VTE Diagnosis No VTE Type NONE VTE Confirmed by (Test) NONE Discharge Core Measures - Per Current guidelines, there needs to be overlap - treatment for the first 5 days of Warfarin therapy. - If discharged on Warfarin prior to 5 days of - overlap therapy, the patient will need to be - assessed for post discharge needs including - *Post discharge parental anticoagulation - *Warfarin and/or parental anticoagulation education - *Follow up date to check INR post discharge At least 5 days overlap therapy as Inpatient No Meds if any: Prescribed or Continued at Discharge Note: Overlap Therapy is Warfarin and Anticoagulant Meds if any: NOT Prescribed or Continued at Discharge
[2018-02-19 08:08] LABS: ABSOLUTE BASOPHIL COUNT 0 /CUMM (0.0-0.2); ABSOLUTE EOSINOPHIL COUNT 0.1 /CUMM (0.0-0.7); ABSOLUTE GRANULOCYTE CT 2.8 /CUMM (1.4-6.5); ABSOLUTE LYMPH COUNT 1.9 /CUMM (1.2-3.4); ABSOLUTE MONOCYTE COUNT 0.7 /CUMM (0.10-0.60); BASOPHIL % 0.5 % (0.0-2.0); EOSINOPHIL % 2.5 % (0-5); GRANULOCYTE % 49.8 % (42.2-75.2); HEMATOCRIT 34.8 % (42-52); MEAN CORPUSCULAR HGB 27.6 PG (27.0-31.0); MEAN CORPUSCULAR HGB CONC 32.1 G/DL (33.0-37.0); MEAN CORPUSCULAR VOLUME 86.2 FL (80.0-94.0); MEAN PLATELET VOLUME 7.3 FL (7.4-10.4); PLATELET COUNT 157 /CUMM (130-400); RBC DISTRIBUTION WIDTH 15.3 % (11.5-14.5); RED BLOOD CELL CT 4.04 /CUMM (4.70-6.10); WHITE BLOOD CELL COUNT 5.6 /CUMM (4.8-10.8)
--- NOTE | 2018-02-19 08:31 | PN- Housestaff ---
Grace HARPER,Mile 02/19/18 0831: Subjective Follow-up For: afib with RVR kidney injury chf Complaints: no complaints Tele-Events Since Last Visit: Subjective: Patient states today that his breathing is unchanged but "okay". He notes that he is still spitting up phlegm. He is less congested on the Afrin. He denies any chest pain, abdominal pain. He notes that his legs bilaterally are still painful and he continues to have his baseline edema. He notes wheezing today. Review of Systems Constitutional: Reports: no symptoms. EENTM: Reports: no symptoms. Cardiovascular: Reports: no symptoms. Respiratory: Reports: cough, short of breath, wheezing. Gastrointestinal: Reports: no symptoms. Genitourinary: Reports: no symptoms. Musculoskeletal: Reports: back pain, joint pain. Skin: Reports: change in skin color. Neurological/Psychological: Reports: anxiety. Objective Last 24 Hrs of Vital Signs/I&O Vital Signs Date Time Temp Pulse Resp B/P B/P Pulse O2 O2 Flow FiO2 Mean Ox Delivery Rate 02/19 1515 98.6 75 20 134/84 91 Nasal Cannula 02/19 0904 95 Nasal 3.5L Cannula 02/19 0820 74 110/72 02/19 0800 93 Nasal 3.5L Cannula 02/19 0653 98.2 74 20 110/72 94 Nasal Cannula 02/19 0000 95 Nasal 3.5L Cannula 02/18 2301 98.3 77 20 116/78 92 Nasal Cannula 02/18 2130 76 116/76 02/18 1956 94 Nasal 3.5L Cannula Intake & Output 02/19 1600 02/19 0800 02/19 0000 Intake Total 500 100 520 Output Total Balance 500 100 520 Intake, Oral 500 100 520 Patient 371 lb Weight Weight Chair scale Measurement Method Physical Exam General Appearance: Alert, Oriented X3, Cooperative, No Acute Distress Skin: No Rashes, lower extremity chronic venous stasis changes, right side open wound. Skin Temp/Moisture Exam: Warm/Dry Sepsis Skin Exam (color): Normal for Ethnicity HEENT: Atraumatic, EOMI, Mucous Membr. moist/pink Neck: Supple, No JVD Cardiovascular: Regular Rate, Normal S1, Normal S2, No Murmurs Lungs: scattered moderate wheezing Abdomen: Normal Bowel Sounds, Soft, No Tenderness, No Hepatospenomegaly, No Masses Neurological: Normal Speech Extremities: No Clubbing, No Cyanosis Vascular: Normal Pulses, Pulses Symmetrical Current Medications: Current Medications Sig/Keaton Start time Last Medication Dose Route Stop Time Status Admin Albuterol Sulfate 3 ML TID 02/06 1407 AC 02/19 INH 1309 Albuterol Sulfate 2 PUF Q4-6 PRN PRN 02/06 0230 AC INH Amiodarone HCl 200 MG DAILY 02/15 09 AC 02/19 PO 0820 Ammonium Lactate 1 IDANIA BID 02/10 09 AC 02/19 TOP 0829 Apixaban 5 MG BID 02/15 1453 AC 02/19 PO 0820 Atorvastatin Calcium 10 MG 1700 02/06 1700 AC 02/18 PO 1622 Carvedilol 25 MG BID 02/18 09 AC 02/19 PO 0820 Colchicine 600 MCG DAILY 02/06 0900 AC 02/19 PO 0820 Escitalopram Oxalate 5 MG DAILY 02/06 0900 AC 02/19 PO 0820 Ferrous Sulfate 325 MG DAILY 02/06 0900 AC 02/19 PO 0820 Fluticasone 2 SPRAY DAILY 02/06 1000 AC 02/19 Propionate JOAQUIN 0823 Gabapentin 400 MG TID 02/06 0900 AC 02/19 PO 1427 Guaifenesin 600 MG Q12 02/07 2100 AC 02/19 PO 0820 Hydroxyzine HCl 100 MG BID 02/17 2100 AC 02/19 PO 0820 Insulin Aspart 0 TIDAC 02/06 0800 AC 02/19 SC 1220 Ipratropium [place] 2.5 ML TID 02/06 1407 AC 02/19 INH 1308 Montelukast Sodium 10 MG 2100 02/06 2100 AC 02/18 PO 2123 Oxycodone/ 2 TAB Q6P PRN 02/11 0815 AC 02/19 Acetaminophen PO 0819 Oxymetazoline HCl 2 SPRAY BID 02/18 1006 AC 02/19 JOAQUIN 02/21 1005 0829 Sodium Chloride 2 SPRAY Q4P PRN 02/06 1545 AC 02/11 JOAQUIN 0826 Last 24 Hrs of Lab/Joaquim Results Last 24 Hrs of Labs/Mics: Laboratory Tests 02/19/18 0700: Anion Gap 11, Estimated GFR > 60, BUN/Creatinine Ratio 22.7, CBC w Diff NO MAN DIFF REQ, RBC 4.04 L, MCV 86.2, MCH 27.6, MCHC 32.1 L, RDW 15.3 H, MPV 7.3 L , Gran % 49.8, Lymphocytes % 34.5, Monocytes % 12.7 H, Eosinophils % 2.5, Basophils % 0.5, Absolute Granulocytes 2.8, Absolute Lymphocytes 1.9, Absolute Monocytes 0.7 H, Absolute Eosinophils 0.1, Absolute Basophils 0 Assessment/Plan Assessment: 62 year old male with a past medical history significant for HFrEF (25-30%) nonischemic cardiomyopathy s/p dual chamber PPM/AICD, 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 Patient was admitted to ICU for atrial fibrillation with rapid ventricular rate requiring amiodarone drip and wide complex tachycardia on 02/06. Patient was previously admitted from January 08 to January 15 for right lower extremity cellulitis, heart failure exacerbation and acute kidney injury. After the discharge he became sick again within 3 days and was admitted at [facility] for a few days, then stepdown unit and discharged approximately a week back. He received a call from pacemaker people that his heart rate was running really high and was suggested to go to ER. He was significantly tachycardic at arrival and it was wide complex tachycardia, ECG appears A. fib with aberrancy causing wide complex. When patient is asked if he has a previous history of A. fib he says yes, none of the previous records mention that he has A. fib, he was not anticoagulated if he had history of A. fib thus it was unclear whether it was new onset or old but he appeared in RVR with aberrancy causing wide complexes. ECG findings were discussed with machine farmworker who suggested to start amiodarone drip. Additionally , given his high stroke risk he was started on heparin drip. UPDATE 02/17: The patient has had cardioversion and also has a pacemaker defibrillator. The patient is diuresis dependent, has HFrEF 25%-30%. However with the elevated Cr, we held lasix, diamox, lisinopril. Breathing continues to be difficult for the patient but no change since yesterday. Patient has been net positive the past couple days as he was on fluids and is not being actively diuresed. Vitals are stable. Serum Cr has decreased today to a low of 1.3. We checked a UA along with FeNa and random Cr, K, Na 2 days ago prior to starting fluids. Results suggest prerenal kidney failure (kidneys aren't seeing blood volume secondary to CHF) or contrast induced nephropathy and fluids successfully lowered creatinine. Patient is currently off fluids as of yesterday. Patient is anticoagulated on Eliquis. Yesterday the patient's LRC was speciated - positive for pseudomonas and staph with history of MRSA. No fever or WBC count again today so this was presumed to be colonization. Problem List and Plan: 1. Possible Aortic dissection seen in the descending aorta on ANUPAMA -CTA chest negative for aortic dissection, however there is a new airspace disease of the right lower lobe, patient is afebrile and without leukocytosis, we decided to monitor for now. No chest pain. Patient has had stable vitals. 2. Atrial fibrillation with rapid ventricular response/ WIDE COMPLEXES: Patient presented with worsening shortness of breath, pleuritic chest pain at rest. Received call from pacemaker people that his heart rate was running really high and was suggested to go to the ER. On arrival he was found to have tachycardia, EKG appears A. fib with aberrancy causing wide-complex, tachycardic 130-150. He was hemodynamically stable. ECG findings were discussed with machine farmworker who suggested to start amiodarone drip. Given his high stroke risk/ chadsvasc score he was started on heparin drip. S/p cardioversion with transesophageal echocardiogram- 02/12- in sinus now. * Continue amiodarone 200mg daily. Was switched from 400mg daily. * Continue Eliquis 5mg bid. * Serial troponins negative * Follow-up echocardiogram showed abnormal left ventricular ejection fraction estimated at 25-30%. * Continue home medication carvedilol at 25 mg twice a day, patient's blood pressure overnight was 124/80. Continue to monitor blood pressure. * Follow cardiology recommendations * Military Pilot consulted: Interrogation of ICD was done, changes were made to his hardware. * Continuous telemetry monitoring * Monitor vitals every shift Electrophysiology information: Patient has 2 episodes of wide complex tachycardia with an ICD in place without shock therapy. One episode was noted in ER at the time of admission and one more episode with 28 beat run on 2017. Patient was asymptomatic at that time. He has ICD in place. No shock was delivered. The device was interrogated by the [employer] sales representative uniforms and found to be functioning properly. It appears as though the patient didn't sustain ventricular tachycardia long enough during any one of these episodes to trigger the device algorithym for antitachycardia pacing or shock therapy. November 2015- He presented with severe biventricular heart failure at that time. An echocardiogram done on 12/12/2015 showed a severe reduction in LV function with an EF as low as 20%. There was concentric LVH, a dilated right ventricle, a dilated IVC, and a broad left bundle branch block. he was an excellent candidate for cardiac resynchronization therapy given his very broad left bundle branch block. * Military Pilot Dr. Willoughby was consulted. * AICD device was interrogated, able to determine that all his arrhythmias seen are due to conduction of atrial fibrillation, not from V. tach * Several reprogramming changes were made to his device including increasing his rates and 5 beats minute to allow more biventricular pacing and also placed on conducted A. fib response. 2. Acute on chronic heart failure with reduced ejection fraction Exertional dyspnea most Likely from HFrEF exacerbation precipitated by atrial fibrillation w/ RVR and pulmonary congestion. Patient chest x-ray showed central pulmonary vascular congestion and early interstitial edema. ProBNP elevated 6490. CXR today shows hazy basilar opacities with decreased lung volumes indicative of atelectasis or pneumonia. * Continue to hold diuretics * Daily weights * Ins and outs * Checked serial troponin and EKG, ruled out ACS * Wax Ball Molder on board * Echo showed ejection fraction 25% * Continue Coreg 25 mg twice a day * Discontinued lisinopril, diuretics diamox and lasix, secondary to kidney injury. Avoid NSAIDs and other nephrotoxins. * Continue atorvastatin * Monitor renal function * Maintain potassium above 4 and magnesium 2 COPD: On 4 L nasal cannula/chronic hypercapnic respiratory failure/acute hypoxic respiratory failure and NEW POSITIVE RESPIRATORY CULTURE Acute on chronic hypoxic respiratory failure most likely from CHF exacerbation and rapid A. fib. CT showed complete collapse of the right middle lobe of uncertain etiology. Endobronchial lesion\\malignancy are not suggested. Follow up imaging of the lung showed new airspace disease in the right lower lobe and unchanged airspace disease in the posterior right upper lobe. Chest x-ray from yesterday showed hazy basilar opacities with low lung volumes with a presentation fairly similar to prior study. Sputum culture returned as positive for GNRs and GPC, shows pseudomonas and staph, previously MRSA. However without an elevated white cell count and afebrile, this is presumed to be colonization and we will monitor off antibiotics. * Follow-up chest x-ray today. * TRC evaluation * Continue supplemental oxygen, wean down as tolerated * Continue advair, singulair * Nebulized albuterol and ipatropium * Chest physiotherapy/Acupella therapy * Mucomyst * Patient needs outpatient CAT scan chest after 2 months for resolution * Continue to hold diamox for worsening renal function * If fever or elevated white cell count, consider antibiotic therapy. JORY: * CPAP-although patient is noncompliant * Check ABG for increased somnolence prn DM: * Hold oral hypoglycemics * Diabetic diet * Accuchecks TIDAC/HS * Novolog sliding scale insulin * Continue gabapentin for neuropathy Gout: * Continue colchicine 0.6 mg. * Avoid giving more than 0.6 mg given drug interaction with amiodarone Depression * continue Lexapro 5 mg daily Hyperlipidemia * Continue Lipitor 10 daily. * Avoid simvastatin given drug interaction with amiodarone LISETTE ON STAGE 2 CKD * FeNa .6. This suggests prerenal causes of contrast induced nephropathy. * Cr has decreased to 1.3 after giving him 100 mL per hour normal saline fluid challenge. * Nephrology following * We have held lisinopril, diamox, and lasix for worsening renal function. Diabetic diet with 2gram sodium restriction DVT ppx ELIQUIS DNI Problem List: 1. LISETTE (acute kidney injury) 2. CHF (congestive heart failure) 3. Wide-complex tachycardia 4. Afib 5. Chronic venous stasis dermatitis Pain Ratin Pain Location: lower legs Pain Goal: Pain 4 or less Pain Plan: prn Tomorrow's Labs & Rationales: patient is to be discharged Janelle Shaikh 02/19/18 1232: Attending MD Review Statement Attending Statement Attending MD Statement: examined this patient, discuss w/resident/PA/ENGINEERING AIDE, agreed w/resident/PA/ENGINEERING AIDE, discussed with family, reviewed EMR data (avail), discussed with nursing, discussed with case mgmt, reviewed images, amended to note Attending Assessment/Plan: Patient still have productive cough with dark sputum. Patient will be discharge on PO abx, PO lasix 20 mg daily as he tolerated this am with acceptable creatinine function. Needs to follow up with chf clinic as outpatient in 1 week. Cont other meds for now. Patient non coperaitve to go to rehab and prefers quality of life while going back to his makeshift van/home.
[2018-02-19] MEDS ORDERED: ELIQUIS5 M1 PO (13:56)
[2018-02-19] MEDS ORDERED: ATORVASTATIN CA10 M1 PO (13:56)
[2018-02-19] MEDS ORDERED: GUAIFENESIN ER600 MG PO (13:56)
[2018-02-19] MEDS ORDERED: AMIODARONE HCL200 M1 PO (13:56)
[2018-02-19] MEDS ORDERED: NASAL DECONGEST30 M1 NAS (13:56)
[2018-02-19] MEDS ORDERED: LASIX20 M1 PO (13:56)
[2018-02-19] MEDS ORDERED: MOXIFLOXACIN H400 M2 PO (14:04)
[2018-02-19 15:15] VITALS: BP 134/84
[2018-02-19] MEDS ORDERED: LEVAQUIN500 M1 PO (15:36)
[2018-02-19] MEDS ORDERED: PREDNISONE20 M1 PO (15:59)
--- NOTE | 2018-02-22 19:48 | Discharge Summary ---
Visit Information Visit Dates Admission Date: 02/06/18 Discharge Date: 02/19/18 Hospital Course Course Attending Physician: Janelle Shaikh MD Primary Care Physician: Vinicio CODYCarlee Lds Hospital Course: 62 year old male with a past medical history significant for HFrEF (25-30%) nonischemic cardiomyopathy s/p dual chamber PPM/AICD, 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 Patient was admitted to ICU for atrial fibrillation with rapid ventricular rate requiring amiodarone drip and for episodes of sustained V. tach. Patient was admitted from January 08 to January 15 for right lower extremity cellulitis, heart failure exacerbation and acute kidney injury. After the discharge he became sick again within 3 days and was admitted at [facility] for a few days, then stepdown unit and discharged approximately a week back. He received a call from pacemaker people that his heart rate was running really high and was suggested to go to ER. He was significantly tachycardic at arrival and it was wide complex tachycardia, ECG appears A. fib with aberrancy causing wide complex. When patient is asked if he has a previous history of A. fib he says yes, none of the previous records mention that he has A. fib, he is currently not anticoagulated if he had history of A. fib thus it's unclear whether this is new onset or old but he appears in RVR with aberrancy causing wide complexes. ECG findings were discussed with security guard supervisor who suggested to start amiodarone drip. Given his high stroke risk he was started on heparin drip. ------ In ED patient was found to be in A. fib with RVR. Was given one-time dose of 5 mg Lopressor and one-time dose of cardiazem and was starting on IV amiodarone drip. Vitals on admission temperature 98.3, heart rate 120-->112, 95% on room air, blood pressure 140/67 > 122/78. Labs CBC unremarkable, BEP significant for bicarbonate of 38 and BUN 31, creatinine of 1.2 normal LFTs, d-dimer 315, troponin 0.09, proBNP 6490 Chest x-ray shows cardiomegaly and interstitial edema EKG shows A. fib with aberrancy, wide-complex tachycardia, heart rate of 153, QTC 524 --------- Atrial fibrillation with rapid ventricular response/ WIDE COMPLEXES: Patient presented with worsening shortness of breath, pleuritic chest pain at rest. Received call from pacemaker people that his heart rate was running really high and was suggested to go to the ER. On arrival he was found to have tachycardia, EKG appears A. fib with aberrancy causing wide-complex, tachycardic 130-150. He was hemodynamically stable. When patient is asked if he has a previous history of A. fib he says yes, none of the previous records mention that he has A. fib, he is currently not anticoagulated if he had history of A. fib thus it's unclear whether this is new onset or old but he appears in RVR with aberrancy causing wide complexes. ECG findings were discussed with security guard supervisor who suggested to start amiodarone drip. Given his high stroke risk/ chadsvasc score he was started on heparin drip. Patient was discontinued on amiodarone drip once his heart rate was below 100. He was started on oral amiodarone 400 twice daily on 02/08/2018 with plan to continue 400 twice daily for the next 1 week and then 200 mg daily. He was continued on IV heparin drip given his high stroke risk. Serial troponin and EKG negative for acute coronary syndrome. Follow-up echocardiogram showed abnormal left ventricular ejection fraction estimated at 25-30%. [employer] Straining Bag Washer Dr. Willoughby was consulted- underwent cardioversion on 02/12 with transesophageal echocardiogram. Remained in sinus rhythm. There was a possible aortic dissection seen in the descending aorta on the [place]UP[place]. CTA chest negative for aortic dissection, however there is a new airspace disease of the right lower lobe, patient is afebrile and without leukocytosis, we decided to monitor. No chest pain. Patient has had stable vitals. Continue amiodarone 200mg daily. Was switched from 400mg daily. * Continue Eliquis 5mg bid. * Serial troponins negative * Follow-up echocardiogram showed abnormal left ventricular ejection fraction estimated at 25-30%. * Continue home medication carvedilol at 25 mg twice a day, patient's blood pressure overnight was 124/80. Continue to monitor blood pressure. * Follow cardiology recommendations * Color Straining Bag Washer consulted: Interrogation of ICD was done, changes were made to his hardware. * Continuous telemetry monitoring * Monitor vitals every shift Electrophysiology information: Patient has 2 episodes of wide complex tachycardia with an ICD in place without shock therapy. One episode was noted in ER at the time of admission and one more episode with 28 beat run on 2017. Patient was asymptomatic at that time. He has ICD in place. No shock was delivered. The device was interrogated by the [employer] billing representative and found to be functioning properly. It appears as though the patient didn't sustain ventricular tachycardia long enough during any one of these episodes to trigger the device algorithym for antitachycardia pacing or shock therapy. November 2015- He presented with severe biventricular heart failure at that time. An echocardiogram done on 12/12/2015 showed a severe reduction in LV function with an EF as low as 20%. There was concentric LVH, a dilated right ventricle, a dilated IVC, and a broad left bundle branch block. he was an excellent candidate for cardiac resynchronization therapy given his very broad left bundle branch block. * Color Straining Bag Washer Dr. Willoughby was consulted. * AICD device was interrogated, able to determine that all his arrhythmias seen are due to conduction of atrial fibrillation, not from V. tach * Several reprogramming changes were made to his device including increasing his rates and 5 beats minute to allow more biventricular pacing and also placed on conducted A. fib response. LISETTE ON STAGE 2 CKD: Patient has history of on and off elevated Cr. This time was admitted with Cr 1.0 which climbed to 1.4 on 02/10 and then to a max of 2.0 on 02/16. Results suggest prerenal kidney failure (kidneys aren't seeing blood volume secondary to CHF) or contrast induced nephropathy and this seemed the most likely as fluids quickly and successfully lowered creatinine. * FeNa .6. This suggests prerenal causes of contrast induced nephropathy. * Cr has decreased to 1.3 after giving him 100 mL per hour normal saline fluid challenge. * Nephrology followed * We have held lisinopril, diamox, and lasix for worsening renal function. Acute on chronic heart failure with reduced ejection fraction Exertional dyspnea most Likely from HFrEF exacerbation precipitated by atrial fibrillation w/ RVR and pulmonary congestion. Patient chest x-ray showed central pulmonary vascular congestion and early interstitial edema. ProBNP elevated 6490.He usually takes Lasix 80 in the morning and 40 in the evening. He was given IV Lasix 60 twice daily. Daily ins and outs, weights were monitored. Serial troponin and EKG were done, ruled out acute coronary syndrome. Concrete Mixer Truck Driver on board. Repeat echocardiogram showed ejection fraction 25%. He was continued on lisinopril, atorvastatin. Color Straining Bag Washer Dr. Willoughby on board, recommended considering entresto and Aldactone for his nonischemic cardiomyopathy and heart failure. The patient is diuresis dependent, as stated, has HFrEF 25%-30%. However with the elevated Cr, we held lasix, diamox, lisinopril. Breathing continued to be difficult for the patient but no change. Vitals stable during this time. * Continue to hold diuretics * Daily weights * Ins and outs * Checked serial troponin and EKG, ruled out ACS * Concrete Mixer Truck Driver on board * Continue Coreg 25 mg twice a day * Discontinued lisinopril, diuretics diamox and lasix, secondary to kidney injury. Avoid NSAIDs and other nephrotoxins. * Continue atorvastatin * Monitor renal function * Maintain potassium above 4 and magnesium 2 COPD: On 4 L nasal cannula/chronic hypercapnic respiratory failure/acute hypoxic respiratory failure and NEW POSITIVE RESPIRATORY CULTURE Acute on chronic hypoxic respiratory failure most likely from CHF exacerbation and rapid A. fib. CT showed complete collapse of the right middle lobe of uncertain etiology. Endobronchial lesion\malignancy are not suggested. Follow up imaging of the lung showed new airspace disease in the right lower lobe and unchanged airspace disease in the posterior right upper lobe. Chest x-ray from yesterday showed hazy basilar opacities with low lung volumes with a presentation fairly similar to prior study. Sputum culture returned as positive for GNRs and GPC, shows pseudomonas and staph, previously MRSA. However without an elevated white cell count and afebrile, this is presumed to be colonization and we will monitor off antibiotics. * Follow-up chest x-ray * TRC evaluation * Continue supplemental oxygen, wean down as tolerated * Continue advair, singulair * Nebulized albuterol and ipatropium * Chest physiotherapy/Acupella therapy * Mucomyst * Patient needs outpatient CAT scan chest after 2 months for resolution * Continue to hold diamox for worsening renal function * If fever or elevated white cell count, consider antibiotic therapy. JORY: * CPAP-although patient is noncompliant * Check ABG for increased somnolence prn DM: * Hold oral hypoglycemics * Diabetic diet * Accuchecks TIDAC/HS * Novolog sliding scale insulin * Continue gabapentin for neuropathy Gout: * Continue colchicine 0.6 mg. * Avoid giving more than 0.6 mg given drug interaction with amiodarone Depression * continue Lexapro 5 mg daily Hyperlipidemia * Continue Lipitor 10 daily. * Avoid simvastatin given drug interaction with amiodarone Allergies: Coded Allergies: No Known Allergies (01/08/18) Disposition Summary Disposition Principal Diagnosis: afib with rvr Additional Diagnosis: chf exacerbation copd exacerbation Discharge Disposition: home or self care Discharge Instructions General Discharge Information Code Status: Do Not Intubate Patient's Diet: sodium limit to 2g daily Patient's Activity: as tolerated Follow-Up Instructions/Appts: 1. Please follow up with PCP in one week 2. Please follow up with cardiology Dr. George in one week 3. [facility] 4. Please follow up with guest advisor Dr. Puente in one week. Medications at Discharge Discharge Medications: Stop taking the following medications: Furosemide (Lasix) 40 MG TABLET ORAL Every night Simvastatin (Simvastatin*) 10 MG TABLET ORAL Every night Qty = 90 Furosemide (Lasix) 80 MG TABLET ORAL Every Morning Naproxen (Naprosyn) 500 MG TABLET ORAL DAILY as needed for PAIN Qty = 30 Lisinopril (Lisinopril) 5 MG TABLET ORAL DAILY Qty = 30 Continue taking these medications: Umeclidinium [place] (Incruse Ellipta) 62.5 MCG/ACTUATION BLST.W.DEV 1 PUFF Inhale through mouth DAILY Qty = 90 Comments: NOT GIVEN IN HOSPITAL Albuterol Sulfate (Proair Hfa) 90 MCG HFA.AER.AD 2 Puff Inhale through mouth EVERY 4-6 HOURS NEEDED as needed for COPD Comments: Last Taken:02/19/18 Time:1 PM Glimepiride (Glimepiride) 1 MG TABLET 1 Tablet ORAL TWICE DAILY Comments: NOT GIVEN IN HOSPITAL INSULIN GIVEN NEEDED PER SCALE Montelukast Sodium (Singulair) 10 MG TABLET 1 Tablet ORAL DAILY Comments: Last Taken:02/18/18 Time:9 PM Metformin HCl (Glucophage) 1,000 MG TABLET 1 Tablet ORAL TWICE DAILY Comments: NOT GIVEN IN HOSPITAL Ipratropium/Albuterol Sulfate (Combivent Respimat Inhal [place]) 20 MCG-100 MCG/ ACTUATION MIST.INHAL 2 PUFF Inhale through mouth TWICE DAILY Qty = 8 Comments: NOT TAKEN WHILE IN HOSPITAL Hydroxyzine Hydrochloride (Atarax) 50 MG TABLET 2 Tablet ORAL TWICE DAILY Qty = 120 Comments: Last Taken: 02/19/18 Time: 8 AM Ferrous Sulfate (Ferrous Sulfate) 325 MG (65 MG IRON) TABLET 1 Tablet ORAL DAILY Qty = 30 Comments: Last Taken: 02/19/18 Time:8 A.M. Fluticasone/Salmeterol (Advair 500-50 Diskus) 500 MCG-50 MCG/DOSE BLST.W.DEV 1 Puff Inhale through mouth TWICE DAILY Qty = 60 Comments: NOT GIVEN WHILE IN HOSPITAL Colchicine (Colcrys) 0.6 MG TABLET 1 Tablet ORAL DAILY Qty = 30 Comments: Last Taken:02/19/18 Time:8 AM Febuxostat (Uloric) 40 MG TABLET 40 Milligram ORAL DAILY Qty = 30 Comments: Last Taken: NOT GIVEN IN THE HOSPITAL Time: Ammonium Lactate (Ammonium Lactate) 12 % CREAM..G. 12 Percent TOPICAL TWICE DAILY Qty = 1 Instructions: . Comments: Last Taken:02/19/18 Time:8 AM Gabapentin (Gabapentin) 400 MG CAPSULE 1 Capsule ORAL THREE TIMES DAILY Comments: Last Taken:02/19/18 Time:1400 PM Carvedilol (Coreg) 25 MG TABLET 1 Tablet ORAL TWICE DAILY Comments: Last Taken:02/19/18 Time:8 AM Acetaminophen (Acetaminophen) 500 MG TABLET 1 Tablet ORAL DAILY as needed for PAIN Qty = 30 Instructions: PLEASE ALTERNATE WITH NAPROXEN FOR PAIN Comments: Last Taken:NOT GIVEN IN THE HOSPITAL Time: Escitalopram Oxalate (Escitalopram Oxalate) 5 MG TABLET 1 Tablet ORAL DAILY Qty = 30 Comments: Last Taken:02/19/18 Time:8 AM Start taking the following new medications: Apixaban (Eliquis) 5 MG TABLET 1 Tablet ORAL TWICE DAILY Qty = 60 No Refills Comments: Last Taken:02/19/18 Time:8 AM Amiodarone (Cordarone) 200 MG TAB 1 Tablet ORAL DAILY Qty = 30 No Refills Comments: Last Taken:02/19/18 Time:8 AM Atorvastatin Calcium (Atorvastatin Calcium) 10 MG TABLET 1 Tablet ORAL DAILY Qty = 30 No Refills Comments: Last Taken:02/18/18 Time:4 PM Guaifenesin (Guaifenesin ER) 600 MG TAB.ER.12H 1 Tablet ORAL TWICE DAILY Qty = 20 No Refills Comments: Last Taken:02/19/18 Time:8 AM Oxymetazoline HCl (Nasal Decongestant) 0.05 % SPRAY 2 [place] In the nose TWICE DAILY as needed for NASAL CONGESTION Qty = 1 No Refills Comments: Last Taken:02/19/18 Time:8 AM Furosemide (Lasix) 20 MG TABLET 1 Tablet ORAL DAILY Qty = 30 No Refills Comments: Last Taken:02/18/18 Time:4 PM Levofloxacin (Levaquin) 500 MG TABLET 1 Tablet ORAL DAILY Qty = 5 No Refills Comments: Last Taken:NOT GIVEN IN THE HOSPITAL Time: Prednisone (Prednisone) 20 MG TABLET 2 Tablet ORAL DAILY Qty = 14 No Refills Comments: Last Taken:NOT GIVEN IN THE HOSPITAL Time: Copies To: Kwame HARPER,Hector Chilel; Les Mooney APRN, MD,Amadou Byers; Bj HARPER,Bong Velasquez ; Doris HARPER,Julia Kim
== END 2018-02-19 18:50 | DRG 291 ==
LOC: ERH 17:48 → 1NO 02-06 00:08 → CRI 02-06 00:08 → ERHI 02-06 00:08 → ENRESERV 02-06 09:54 → CRI 02-06 12:00 → ENTRNSPT 02-12 20:01 → EDTRNSPTSTS 02-12 20:49 → EDTRNSPT 02-12 20:49 → 1NO 02-12 21:14 → CMPTRNSPT 02-12 21:18 → 1NO 02-14 14:52 → ENTRNSPT 02-19 18:19 → 1NO 02-19 18:50 → EDTRNSPTSTS 02-19 19:07 → CMPTRNSPT 02-19 19:12
PROVIDERS: Dermatology; Emergency Medicine; Hospitalist; Internal Medicine; Internal Medicine Critical Care Medicine; Internal Medicine Endocrinology, Diabetes & Metabolism; Internal Medicine Pulmonary Disease; Physician Assistant Medical; Student in an Organized Health Care Education/Training Program
PROC: 5A2204Z Restoration of Cardiac Rhythm, Single (ICD-10-PCS; principal; 2018-02-12)
PROC: B246ZZ4 Ultrasonography of Right and Left Heart, Transesophageal (ICD-10-PCS; principal; 2018-02-12)
DX: I50.23 Acute on chronic systolic (congestive) heart failure (principal); J96.21 Acute and chronic respiratory failure with hypoxia; E87.3 Alkalosis; N17.9 Acute kidney failure, unspecified; I95.9 Hypotension, unspecified; E11.22 Type 2 diabetes mellitus with diabetic chronic kidney disease; E66.01 Morbid (severe) obesity due to excess calories; I42.8 Other cardiomyopathies; Z68.43 Body mass index [BMI] 50.0-59.9, adult; J96.22 Acute and chronic respiratory failure with hypercapnia; I48.91 Unspecified atrial fibrillation; Z86.74 Personal history of sudden cardiac arrest; Z99.81 Dependence on supplemental oxygen; R00.0 Tachycardia, unspecified; G47.33 Obstructive sleep apnea (adult) (pediatric); J40 Bronchitis, not specified as acute or chronic; B96.5 Pseudomonas (aeruginosa) (mallei) (pseudomallei) as the cause of diseases classified elsewhere; B95.61 Methicillin susceptible Staphylococcus aureus infection as the cause of diseases classified elsewhere; M10.9 Gout, unspecified; I87.2 Venous insufficiency (chronic) (peripheral); E78.5 Hyperlipidemia, unspecified; N40.0 Benign prostatic hyperplasia without lower urinary tract symptoms; M06.9 Rheumatoid arthritis, unspecified; Z90.79 Acquired absence of other genital organ(s); F32.9 Major depressive disorder, single episode, unspecified; I44.7 Left bundle-branch block, unspecified; N18.2 Chronic kidney disease, stage 2 (mild); J44.9 Chronic obstructive pulmonary disease, unspecified; Z79.84 Long term (current) use of oral hypoglycemic drugs; Z95.0 Presence of cardiac pacemaker
CPT/HCPCS: 1NP; 84133; 84300; 87184; CCU; 36415; 36592; 71045; 81003; 82436; 82570; 87070; 87147; 93005; 93010; 93306; 93325; 96374; 96375; 99291; J0282; J0713; J1644; J1940; J3490; J7040; J7060; J7608

== ENCOUNTER 2018-03-01 08:12 | Emergency (ER) | payer OTHER, MEDICARE ==
[~2018-03-01] VITALS: Ht 182.9 cm; Wt 172.4 kg
[~2018-03-01 08:12] MED LIST changes: +AMIODARONE HCL200 M1 PO; +ELIQUIS5 M1 PO; +ESCITALOPRAM OXA5 MG PO; +GUAIFENESIN ER600 MG PO; +LASIX20 M1 PO; +LEVAQUIN500 M1 PO; +LISINOPRIL5 M1 PO; +MOXIFLOXACIN H400 M2 PO; +NASAL DECONGEST30 M1 NAS
--- NOTE | 2018-03-01 11:17 | ED GI/GU/ABDOMINAL COMPLAINT ---
History of Present Illness General Chief Complaint: Abdominal Pain/Flank Pain Stated Complaint: R SIDED ABD PAIN Source: patient, old records Exam Limitations: no limitations Vital Signs & Intake/Output Vital Signs & Intake/Output Vital Signs Date Time Temp Pulse Resp B/P B/P Pulse O2 O2 Flow FiO2 Mean Ox Delivery Rate 03/01 1457 98.4 73 19 133/77 96 Nasal 4.0L Cannula 03/01 1341 97.5 68 17 126/71 97 Nasal 4.0L Cannula 03/01 1257 Nasal 4.0L Cannula 03/01 1141 74 20 97 Nasal 4.0L Cannula 03/01 0817 98.6 78 18 140/81 82 Room Air Allergies Coded Allergies: No Known Allergies (01/08/18) Triage Note: 63 YO MALE TO TRIAGE FOR EVAL OF RLQ PAIN, STATES "I KNOW ITS MY KIDNEY" STATES HE WAS HERE A COUPLE WEEKS AGO AND HE WAS TOLD HIS KIDNEY FUNCTIONS WERE HIGH, STATES "I UST WANT TO GET IT CHECKED IT" DENIES URIANRY S/S. DENIES NVD. PT ON OXYGEN AT BASELINE 3.5L, PT DID NOT BRING OXYGEN TO ER. RA SATS 82%. PT PLACED ON OXYGEN Triage Nurses Notes Reviewed? yes Timing: recent history Severity Numbers: 5 Location: right lower quadrant, right upper quadrant Radiation: back HPI: Patient is a 63-year-old male with a past medical history of CHF, nonischemic cardiomyopathy status post dual-chamber PPM/AICD, oxygen dependent COPD on 3.5 L at baseline, obstructive sleep apnea, diabetes, chronic kidney disease, hyperlipidemia, GERD chronic lower extremity swelling and venous stasis, gout was recently admitted to [facility] approximately 3 weeks ago for concerns of atrial fibrillation with RVR and wide complex, currently patient is compliant on WITH ELIQUIS who presents emergency room for concerns of a four-day history of persistent right-sided upper and lower abdominal pain. Patient has had times one episode of vomiting and noted black stools production no blood. Patient is able tolerate by mouth. Denies any fever chills denies any change in respiratory status denies any cough chest pain arm pain jaw pain. Patient is still urinating with no symptoms of dysuria hematuria (Michael ESPINOZA,Gera) Reconcile Medications Acetaminophen 500 MG TABLET 1 TAB PO DAILY PRN PAIN PLEASE ALTERNATE WITH NAPROXEN FOR PAIN Albuterol Sulfate (Proair Hfa) 90 MCG HFA.AER.AD 2 PUF INH Q4-6 PRN PRN COPD (Reported) Amiodarone (Cordarone) 200 MG TAB 1 TAB PO DAILY HEART RATE Ammonium Lactate 12 % CREAM..G. 12 % TP BID foot fissures . Apixaban (Eliquis) 5 MG TABLET 1 TAB PO BID AFIB Atorvastatin Calcium 10 MG TABLET 1 TAB PO DAILY CHOLESTEROL Carvedilol (Coreg) 25 MG TABLET 1 TAB PO BID HIGH BLOOD PRESSURE (Reported) Colchicine (Colcrys) 0.6 MG TABLET 1 TAB PO DAILY GOUT (Reported) Dicyclomine HCl 10 MG CAPSULE 1 CAP PO TID ABDOMINAL PAIN Escitalopram Oxalate 5 MG TABLET 1 TAB PO DAILY MENTAL HEALTH (Reported) Febuxostat (Uloric) 40 MG TABLET 40 MG PO DAILY Gout Ferrous Sulfate 325 MG (65 MG IRON) TABLET 1 TAB PO DAILY anemia Fluticasone/Salmeterol (Advair 500-50 Diskus) 500 MCG-50 MCG/DOSE BLST.W.DEV 1 PUF INH BID COPD (Reported) Furosemide (Lasix) 20 MG TABLET 1 TAB PO DAILY DIURETIC Gabapentin 400 MG CAPSULE 1 CAP PO TID NEUROPATHY (Reported) Glimepiride 1 MG TABLET 1 TAB PO BID DM (Reported) Guaifenesin (Guaifenesin ER) 600 MG TAB.ER.12H 1 TAB PO BID CONGSETION Hydroxyzine Hydrochloride (Atarax) 50 MG TABLET 2 TAB PO BID MUCUS (Reported) Ipratropium/Albuterol Sulfate (Combivent Respimat Inhal [place]) 20 MCG-100 MCG/ ACTUATION MIST.INHAL 2 PUFF INH BID copd (Reported) Metformin HCl (Glucophage) 1,000 MG TABLET 1 TAB PO BID DM (Reported) Montelukast Sodium (Singulair) 10 MG TABLET 1 TAB PO DAILY RESPIRATORY ( Reported) Oxymetazoline HCl (Nasal Decongestant) 0.05 % SPRAY 2 SPRAY JOAQUIN BID PRN NASAL CONGESTION Prednisone 20 MG TABLET 2 TAB PO DAILY copd Umeclidinium [place] (Incruse Ellipta) 62.5 MCG/ACTUATION BLST.W.DEV 1 PUFF INH DAILY COPD (Reported) (Chester Ortega DO) Past History Travel History Traveled to [place] past 21 day No Medical History Any Pertinent Medical History? 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 Hx Contributory? No (Gera Narvaez) Review of Systems Review of Systems Constitutional: Reports: see HPI. Denies: chills, fever. EENTM: Reports: no symptoms. Respiratory: Reports: no symptoms. Cardiovascular: Reports: no symptoms. GI: Reports: see HPI, abdominal pain. Genitourinary: Reports: no symptoms. Musculoskeletal: Reports: see HPI, back pain. Skin: Reports: no symptoms. Neurological/Psychological: Reports: no symptoms. Hematologic/Endocrine: Reports: no symptoms. Immunologic/Allergic: Reports: no symptoms. All Other Systems: Reviewed and Negative (Gera Narvaez) Physical Exam Physical Exam General Appearance: no apparent distress, obese Head: atraumatic Eyes: Bilateral: normal appearance. Ears, Nose, Throat, Mouth: hearing grossly normal, moist mucous membrane Neck: normal inspection Respiratory: normal breath sounds, chest non-tender, no respiratory distress Cardiovascular: regular rate/rhythm Gastrointestinal: normal bowel sounds, soft, RIGHT LOWER/UPPER QUARDRANT PAIN NO REBOUND Male Genitals: normal genitalia, BROWN STOOL,NEGATIVE FOBT Neurologic/Psych: no motor/sensory deficits, awake Skin: intact, normal color Core Measures ACS in differential dx? No Sepsis Present: No Sepsis Focused Exam Completed? No (Gera Narvaez) Progress Differential Diagnosis: AAA, AMI, appendicitis, biliary colic, bowel obstruction , colon cancer, cholecystitis, diverticulitis, epididymitis, esophageal varices, gastritis, hepatitis, hernia, hemorrhoids, ischemic bowel, inflamm bowel dis, orchitis, pancreatitis, prostatitis, peptic ulcer, PUD/GERD, perforated viscous, pyelonephritis, SBO, testicular torsion, ureterolithiasis, urinary retention, urethritis, UTI/pyelo Plan of Care: Orders Procedure Date/time Status Add-on Test (ER Only) 03/01 1242 Active TROPONIN LEVEL 03/01 1149 Complete LACTIC ACID 03/01 112 Complete EKG 03/01 112 Active URINALYSIS 03/01 918 Complete LIPASE 03/01 918 Complete COMPREHENSIVE METABOLIC PANEL 03/01 918 Complete CBC WITHOUT DIFFERENTIAL 03/01 918 Complete Laboratory Tests 03/01/18 1423: Urine Color YEL, Urine Clarity CLEAR, Urine pH 6.0, Ur Specific [place] 1.015, Urine Protein NEG, Urine Ketones NEG, Urine Nitrite NEG, Urine Bilirubin NEG, Urine Urobilinogen 0.2, Ur Leukocyte Esterase NEG, Ur Microscopic EXAM NOT REQUIRED, Urine Hemoglobin NEG, Urine Glucose NEG 03/01/18 1422: Lactic Acid Cancelled 03/01/18 1149: Anion Gap 8, Estimated GFR > 60, BUN/Creatinine Ratio 23.0, Glucose 89, Calcium 8.8, Total Bilirubin 0.7, AST 15 L, ALT 31, Alkaline Phosphatase 66, Troponin I 0.05, Total Protein 6.5, Albumin 3.5, Globulin 3.0, Albumin/Globulin Ratio 1.2, Lipase 289, CBC w Diff NO MAN DIFF REQ, RBC 4.12 L, MCV 85.4, MCH 27.8, MCHC 32.6 L, RDW 14.9 H, MPV 7.0 L, Gran % 72.3, Lymphocytes % 17.7 L, Monocytes % 8.4, Eosinophils % 1.4, Basophils % 0.2, Absolute Granulocytes 7.7 H, Absolute Lymphocytes 1.9, Absolute Monocytes 0.9 H, Absolute Eosinophils 0.2, Absolute Basophils 0 03/01/18 1144: Lactic Acid 1.1 Patient upon initial presentation was resting comfortably patient was given 3.5 L of nasal cannula oxygen oxygen saturation Patient was offered pain medications and declined 1301- patient was reevaluated currently sleeping no apparent distress patient was updated on all blood work PT HAD normal steady gait in the emergency room Patient had CT scan results showing no acute intra-abdominal process, patient denies any cardiovascular complaints upon arrival Discussed all results with patient upon discharge patient looks well no apparent distress was able tolerate by mouth Diagnostic Imaging: Viewed by Me: CT Scan. Radiology Impression: SEE COMMENTS Initial ED EKG: AV PACED rhythm 75 bpm Comments: PATIENT: SUZETTE GRIGSBY PRESENT AGE: 63 PATIENT ACCOUNT NO: [id number] : 57 LOCATION: [facility] ORDERING PHYSICIAN: Gera ESPINOZA SERVICE DATE: 03/01/18 EXAM TYPE: CAT - CT ABD & PELVIS W/O IV CONTRAS EXAMINATION: CT ABDOMEN AND PELVIS WITHOUT CONTRAST CLINICAL INFORMATION: Right abdominal pain COMPARISON: CT of the abdomen and pelvis from 06/09/2017, CTA chest from 02/13/2018. TECHNIQUE: Multidetector volumetric imaging was performed from the superior aspect of the liver through the pubic symphysis. Sagittal and coronal reformatted images were obtained on the technologist's workstation. DLP: 1546 mGy-cm FINDINGS: LUNG BASES: There is some patchy opacification in the left base medially, similar to slightly decreased in conspicuity from 02/13/2018. There is some mild groundglass attenuation and linear/platelike opacity at the right base which appears improved from the recent prior study. Cardiomegaly is stable. A pacemaker/AICD device is partially visualized. LIVER, GALLBLADDER, AND BILIARY TREE: The liver is normal in size, shape, and attenuation. No focal hepatic lesion or biliary ductal dilatation is present. There are several gallstones within a nondistended gallbladder, as before. PANCREAS: Unremarkable. SPLEEN: Unremarkable. ADRENAL GLANDS: Unremarkable. KIDNEYS AND URETERS: The kidneys are normal in size, shape, and attenuation. No hydronephrosis, hydroureter, or calculi seen. No perinephric stranding. BLADDER: Unremarkable. GASTROINTESTINAL TRACT: There is scattered stool throughout the colon with scattered colonic diverticula. No surrounding inflammation to suggest diverticulitis. Loops of small bowel are normal in caliber. A normal appendix is visualized. ABDOMINAL WALL: There is a fat-containing right-sided periventricular hernia, measuring approximately 2.8 x 4.8 x 5.5 cm, unchanged. There is diastases of the rectus musculature. LYMPH NODES: No definitive adenopathy is visualized. VASCULAR: The caliber of the aorta appears fairly normal. PELVIC VISCERA: Unremarkable. OSSEOUS STRUCTURES: No compression deformities. There is multilevel spondylosis with bilateral L5 spondylolysis and 5 mm of anterolisthesis of L5 on S1. No acute osseous abnormality. There is a mild reverse S thoracolumbar scoliosis. IMPRESSION: There is patchy and platelike opacity in the lung bases, improved on the right from 02/13/2018, and similar on the left. No acute intra-abdominal or intrapelvic pathology is visualized. Cholelithiasis without evidence of cholecystitis. Diverticulosis without evidence of diverticulitis. Periumbilical fat-containing hernia. DICTATED BY: Judy Bray MD DATE/TIME DICTATED:03/01/181416 PATIENT REGISTRATION SPECIALIST:FRED (Gera Narvaez) Departure Departure Disposition: HOME OR SELF CARE Condition: Stable Clinical Impression Primary Impression: Abdominal pain Referrals: Carlee Mooney APRN (PCP/Family) Additional Instructions: As discussed continue home medications as directed begin a 24-hour clear liquid and bland diet to rest her bowels, begin the prescription of Bentyl for your symptoms, if no better in 2 days follow-up with your established certified medical records coder for further evaluation treatment please provide him with copies of CT scan and blood work provided to the emergency room, prescription is waiting at [facility]. 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 I have also reviewed all the pertinent lab results and diagnostic results. I agree with the findings and the plan of care as documented in the PA's/PLANT OPERATIONS WORKER's documentation. [X] I have reviewed the ED Record and agree with the PA's/PLANT OPERATIONS WORKER's documentation. [] Additions or exceptions (if any) to the PAs/PLANT OPERATIONS WORKER's note and plan are summarized below: [] (Chester Ortega DO)
[2018-03-01 11:59] LABS: ABSOLUTE BASOPHIL COUNT 0 /CUMM (0.0-0.2); ABSOLUTE EOSINOPHIL COUNT 0.2 /CUMM (0.0-0.7); ABSOLUTE GRANULOCYTE CT 7.7 /CUMM (1.4-6.5); ABSOLUTE LYMPH COUNT 1.9 /CUMM (1.2-3.4); ABSOLUTE MONOCYTE COUNT 0.9 /CUMM (0.10-0.60); BASOPHIL % 0.2 % (0.0-2.0); EOSINOPHIL % 1.4 % (0-5); GRANULOCYTE % 72.3 % (42.2-75.2); HEMATOCRIT 35.2 % (42-52); MEAN CORPUSCULAR HGB 27.8 PG (27.0-31.0); MEAN CORPUSCULAR HGB CONC 32.6 G/DL (33.0-37.0); MEAN CORPUSCULAR VOLUME 85.4 FL (80.0-94.0); PLATELET COUNT 161 /CUMM (130-400); RBC DISTRIBUTION WIDTH 14.9 % (11.5-14.5); RED BLOOD CELL CT 4.12 /CUMM (4.70-6.10); WHITE BLOOD CELL COUNT 10.6 /CUMM (4.8-10.8)
--- NOTE | 2018-03-01 14:28 | CT SCAN REPORT ---
EXAMINATION: CT ABDOMEN AND PELVIS WITHOUT CONTRAST CLINICAL INFORMATION: Right abdominal pain COMPARISON: CT of the abdomen and pelvis from 06/09/2017, CTA chest from 02/13/2018. TECHNIQUE: Multidetector volumetric imaging was performed from the superior aspect of the liver through the pubic symphysis. Sagittal and coronal reformatted images were obtained on the technologist's workstation. DLP: 1546 mGy-cm FINDINGS: LUNG BASES: There is some patchy opacification in the left base medially, similar to slightly decreased in conspicuity from 02/13/2018. There is some mild groundglass attenuation and linear/platelike opacity at the right base which appears improved from the recent prior study. Cardiomegaly is stable. A pacemaker/AICD device is partially visualized. LIVER, GALLBLADDER, AND BILIARY TREE: The liver is normal in size, shape, and attenuation. No focal hepatic lesion or biliary ductal dilatation is present. There are several gallstones within a nondistended gallbladder, as before. PANCREAS: Unremarkable. SPLEEN: Unremarkable. ADRENAL GLANDS: Unremarkable. KIDNEYS AND URETERS: The kidneys are normal in size, shape, and attenuation. No hydronephrosis, hydroureter, or calculi seen. No perinephric stranding. BLADDER: Unremarkable. GASTROINTESTINAL TRACT: There is scattered stool throughout the colon with scattered colonic diverticula. No surrounding inflammation to suggest diverticulitis. Loops of small bowel are normal in caliber. A normal appendix is visualized. ABDOMINAL WALL: There is a fat-containing right-sided periventricular hernia, measuring approximately 2.8 x 4.8 x 5.5 cm, unchanged. There is diastases of the rectus musculature. LYMPH NODES: No definitive adenopathy is visualized. VASCULAR: The caliber of the aorta appears fairly normal. PELVIC VISCERA: Unremarkable. OSSEOUS STRUCTURES: No compression deformities. There is multilevel spondylosis with bilateral L5 spondylolysis and 5 mm of anterolisthesis of L5 on S1. No acute osseous abnormality. There is a mild reverse S thoracolumbar scoliosis. IMPRESSION: There is patchy and platelike opacity in the lung bases, improved on the right from 02/13/2018, and similar on the left. No acute intra-abdominal or intrapelvic pathology is visualized. Cholelithiasis without evidence of cholecystitis. Diverticulosis without evidence of diverticulitis. Periumbilical fat-containing hernia.
[2018-03-01] MEDS ORDERED: DICYCLOMINE HCL10 M1 PO (14:41)
[2018-03-01 14:57] VITALS: BP 133/77
== END 2018-03-01 14:58 ==
LOC: ERH 08:12
PROVIDERS: Physician Assistant Medical
DX: R10.11 Right upper quadrant pain (principal); R10.31 Right lower quadrant pain
CPT/HCPCS: 74176; 81003; 93005; 93010

== ENCOUNTER 2018-03-05 06:06 | Observation (INO) | payer OTHER, MEDICARE ==
[~2018-03-05] VITALS: Ht 182.9 cm; Wt 126.8 kg
[~2018-03-05 06:06] MED LIST changes: +DICYCLOMINE HCL10 M1 PO
--- NOTE | 2018-03-05 06:33 | ED CARDIAC/CP/PALPITATIONS ---
History of Present Illness General Chief Complaint: Palpitations Stated Complaint: A-FIB PER PT, LEFT SWOLLEN PER PT Source: patient, old records Exam Limitations: no limitations Vital Signs & Intake/Output Vital Signs & Intake/Output Vital Signs Date Time Temp Pulse Resp B/P B/P Pulse O2 O2 Flow FiO2 Mean Ox Delivery Rate 03/05 0647 97.2 77 30 171/82 94 Room Air Allergies Coded Allergies: No Known Allergies (01/08/18) Reconcile Medications Acetaminophen 500 MG TABLET 1 TAB PO DAILY PRN PAIN PLEASE ALTERNATE WITH NAPROXEN FOR PAIN Albuterol Sulfate (Proair Hfa) 90 MCG HFA.AER.AD 2 PUF INH Q4-6 PRN PRN COPD (Reported) Amiodarone (Cordarone) 200 MG TAB 1 TAB PO DAILY HEART RATE Ammonium Lactate 12 % CREAM..G. 12 % TP BID foot fissures . Apixaban (Eliquis) 5 MG TABLET 1 TAB PO BID AFIB Atorvastatin Calcium 10 MG TABLET 1 TAB PO DAILY CHOLESTEROL Carvedilol (Coreg) 25 MG TABLET 1 TAB PO BID HIGH BLOOD PRESSURE (Reported) Colchicine (Colcrys) 0.6 MG TABLET 1 TAB PO DAILY GOUT (Reported) Dicyclomine HCl 10 MG CAPSULE 1 CAP PO TID ABDOMINAL PAIN Escitalopram Oxalate 5 MG TABLET 1 TAB PO DAILY MENTAL HEALTH (Reported) Febuxostat (Uloric) 40 MG TABLET 40 MG PO DAILY Gout Ferrous Sulfate 325 MG (65 MG IRON) TABLET 1 TAB PO DAILY anemia Fluticasone/Salmeterol (Advair 500-50 Diskus) 500 MCG-50 MCG/DOSE BLST.W.DEV 1 PUF INH BID COPD (Reported) Furosemide (Lasix) 20 MG TABLET 1 TAB PO DAILY DIURETIC Gabapentin 400 MG CAPSULE 1 CAP PO TID NEUROPATHY (Reported) Glimepiride 1 MG TABLET 1 TAB PO BID DM (Reported) Guaifenesin (Guaifenesin ER) 600 MG TAB.ER.12H 1 TAB PO BID CONGSETION Hydroxyzine Hydrochloride (Atarax) 50 MG TABLET 2 TAB PO BID MUCUS (Reported) Ipratropium/Albuterol Sulfate (Combivent Respimat Inhal [place]) 20 MCG-100 MCG/ ACTUATION MIST.INHAL 2 PUFF INH BID copd (Reported) Metformin HCl (Glucophage) 1,000 MG TABLET 1 TAB PO BID DM (Reported) Montelukast Sodium (Singulair) 10 MG TABLET 1 TAB PO DAILY RESPIRATORY ( Reported) Oxymetazoline HCl (Nasal Decongestant) 0.05 % SPRAY 2 SPRAY JOAQUIN BID PRN NASAL CONGESTION Prednisone 20 MG TABLET 2 TAB PO DAILY copd Umeclidinium [place] (Incruse Ellipta) 62.5 MCG/ACTUATION BLST.W.DEV 1 PUFF INH DAILY COPD (Reported) Core Measure Meds Pre-Hospital [facility] Triage Nurses Notes Reviewed? yes Onset: 2 days Duration: day(s):, constant, continues in ED, getting worse Timing: recent history Quality/Severity: moderate, severe Location: substernal Radiation: no radiation Activities at Onset: rest Prior Chest Pain/Card Workup: angina, echocardiography, stress test Modifying Factors: Worsens With: exercise, movement. Nitro Today/Relief: no nitro taken today Aspirin Today: no aspirin today Associated Symptoms: edema, shortness of breath, weakness HPI: 2 days prior to admission patient complains of increasing pedal edema with weeping. Prior to admission developed palpitations chest discomfort feeling as if he was in atrial fibrillation again with weakness. He denies fever chills nausea vomiting diarrhea shortness of breath headache dysuria rash bleeding. Past History Travel History Traveled to [place] past 21 day No Medical History Any Pertinent Medical History? 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 Hx Contributory? No Review of Systems Review of Systems Constitutional: Reports: see HPI, weakness. EENTM: Reports: no symptoms. Respiratory: Reports: see HPI, short of breath. Cardiovascular: Reports: see HPI, edema, palpitations. GI: Reports: no symptoms. Genitourinary: Reports: no symptoms. Musculoskeletal: Reports: no symptoms. Skin: Reports: no symptoms. Neurological/Psychological: Reports: no symptoms. Hematologic/Endocrine: Reports: no symptoms. Immunologic/Allergic: Reports: no symptoms. All Other Systems: Reviewed and Negative Physical Exam Physical Exam General Appearance: well developed/nourished, alert, awake, anxious, moderate distress, obese Head: atraumatic, normal appearance Eyes: Bilateral: normal appearance, PERRL, EOMI. Ears, Nose, Throat: normal pharynx, normal ENT inspection, hearing grossly normal Neck: normal inspection, supple, full range of motion, no midline tenderness Respiratory: normal breath sounds, chest non-tender, no respiratory distress, quiet respiration Cardiovascular: regular rate/rhythm, normal peripheral pulses, norml femoral pulses equa Peripheral Pulses: 4+ carotid (R), 4+ carotid (L) Gastrointestinal: normal bowel sounds, soft, non-tender, no organomegaly Back: normal inspection Extremities: normal range of motion, pedal edema (weeping), swelling, no ligament instability Neurologic/Psych: no motor/sensory deficits, awake, alert, oriented x 3, normal mood/affect, 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 Skin: normal color, warm/dry, rash (stasis dermatitis bilat LE) Lymphatic: no anterior cervical rafi Core Measures ACS in differential dx? Yes No ASA d/t Pharmacological CI CVA/TIA Diagnosis No Sepsis Present: No Sepsis Focused Exam Completed? No Progress Differential Diagnosis: atrial fibrillation, CHF/pulm edema, hyperkalemia, pneumonia, PSVT Plan of Care: Orders Procedure Date/time Status Heart Healthy Diet 03/05 B Active OXYGEN SETUP (GEN) 03/05 700 Active Saline Lock 03/[address] in observation 03/05 700 Active Vital Signs 03/05 700 Active Activity/Ambulation 03/05 700 Active Code Status 03/05 07 Active B-TYPE NATRIURETIC PEP (BNP) 03/05 06 Complete TROPONIN LEVEL 03/05 613 Complete PROTHROMBIN TIME 03/05 613 Complete MAGNESIUM 03/05 613 Complete COMPREHENSIVE METABOLIC PANEL 03/05 613 Complete CBC WITHOUT DIFFERENTIAL 03/05 613 Complete EKG 03/05 06 Active Current Medications Sig/[place] Start time Last Medication Dose Stop Time Status Admin Furosemide 40 MG ONCE ONE 03/05 0715 UNVr (Lasix) 03/05 0716 Laboratory Tests 03/05/18 0630: Anion Gap 11, Estimated GFR > 60, BUN/Creatinine Ratio 16.4, Glucose 152 H, Calcium 8.9, Magnesium 1.6, Total Bilirubin 0.7, AST 11 L, ALT 22, Alkaline Phosphatase 70, Troponin I 0.06, Wno-H-Afeiyajghez Pept 1760 H, Total Protein 6.4, Albumin 3.4 L, Globulin 3.0, Albumin/Globulin Ratio 1.1, PT 15.4 H, INR 1.41 H, CBC w Diff NO MAN DIFF REQ, RBC 4.18 L, MCV 85.4, MCH 26.6 L, MCHC 31.2 L, RDW 15.4 H, MPV 6.8 L, Gran % 62.2, Lymphocytes % 23.1, Monocytes % 12.7 H, Eosinophils % 1.6, Basophils % 0.4, Absolute Granulocytes 5.3, Absolute Lymphocytes 2.0, Absolute Monocytes 1.1 H, Absolute Eosinophils 0.1, Absolute Basophils 0 03/05/18 0620: Kct-T-Swflqkvxoro Pept Cancelled Diagnostic Imaging: Viewed by Me: Radiology Read. Discussed w/RAD: Radiology Read. CXR Impression: cm, vascular congestion Initial ED EKG: normal p-waves, no ST T wave changes, IVCD Prior EKG: unchanged Rhythm Strip: normal sinus rhythm Departure Departure Disposition: STILL A PATIENT Condition: Stable Clinical Impression Primary Impression: Palpitations Secondary Impressions: CHF (congestive heart failure) Referrals: Carlee Monoey APRN (PCP/Family) Departure Forms: Customer Survey General Discharge Information Observation Note Spoke With: Rosanna HARPER,[place] Physician Advisor Notified: SAL MARI DO Place Patient In: Non-ED OBS Care Area Rationale for Observation: My rational for observation is as follows supplemental oxygen gentle IV diuresis serial lab exam medication adjustment cardiology evaluation wound care evaluation continuing care discharge planning Critical Care Note Critical Care Note Critical Care Time: 30-74 min (40)
[2018-03-05 06:38] LABS: ABSOLUTE BASOPHIL COUNT 0 /CUMM (0.0-0.2); ABSOLUTE EOSINOPHIL COUNT 0.1 /CUMM (0.0-0.7); ABSOLUTE GRANULOCYTE CT 5.3 /CUMM (1.4-6.5); ABSOLUTE MONOCYTE COUNT 1.1 /CUMM (0.10-0.60); BASOPHIL % 0.4 % (0.0-2.0); EOSINOPHIL % 1.6 % (0-5); GRANULOCYTE % 62.2 % (42.2-75.2); HEMATOCRIT 35.7 % (42-52); MEAN CORPUSCULAR HGB 26.6 PG (27.0-31.0); MEAN CORPUSCULAR HGB CONC 31.2 G/DL (33.0-37.0); MEAN CORPUSCULAR VOLUME 85.4 FL (80.0-94.0); MEAN PLATELET VOLUME 6.8 FL (7.4-10.4); PLATELET COUNT 204 /CUMM (130-400); RBC DISTRIBUTION WIDTH 15.4 % (11.5-14.5); RED BLOOD CELL CT 4.18 /CUMM (4.70-6.10); WHITE BLOOD CELL COUNT 8.5 /CUMM (4.8-10.8)
[2018-03-05 06:45] LABS: PT 15.4 SEC (9.4-12.5)
--- NOTE | 2018-03-05 06:53 | RADIOLOGY REPORT ---
EXAMINATION: XR PORTABLE CHEST CLINICAL INFORMATION: Shortness of breath. Chest pain COMPARISON: 02/18/2018 TECHNIQUE: Portable frontal view of the chest was obtained. FINDINGS: Left chest wall pacer remains in place. The lungs are well expanded. There is central vascular prominence without overt edema. No pleural effusion or pneumothorax. No dense consolidation. The cardiomediastinal silhouette remains prominent. IMPRESSION: Similar appearance to prior. Central vascular prominence without overt edema.
--- NOTE | 2018-03-05 08:57 | History & Physical ---
Ed Herrmann 03/05/18 0856: General Information and HPI MD Statement: I have seen and personally examined SEBSUZETTE Johnathan SR and documented this H&P. Source of Information: patient, old records Exam Limitations: no limitations History of Present Illness: This is a 63 YO M w/PMH significant for heart failure with reduced ejection fraction of 25-30%, mild tricuspid regurg, nonischemic cardiomyopathy status post pacemaker(2015), COPD on 3.5 L of oxygen, obstructive sleep apnea not on CPAP, diabetes, chronic kidney disease, hyperlipidemia, peptic ulcer disease, chronic lower extremity edema, and gout s/p soft tissue debridement of left foot with multiple admissions for persistent gout and COPD who presents today for increased lower extremity edema and palpitation for 2 days. Per patient, he noticed worsening of his lower extremity edema and ulcers 2 days prior to admission. This morning had chest heaviness along with palpitation and thought he is goind back to A.fib. Follows with Dr. Puente and Edith for wound care. Had an appointment to see wound care next week. He denies fever,chills, nausea,vomiting, diarrhea, shortness of breath, headache , dysuria, rash bleeding. Allergies/Medications Allergies: Coded Allergies: No Known Allergies (01/08/18) Home Med list Acetaminophen 500 MG TABLET 1 TAB PO DAILY PRN PAIN PLEASE ALTERNATE WITH NAPROXEN FOR PAIN Albuterol Sulfate (Proair Hfa) 90 MCG HFA.AER.AD 2 PUF INH Q4-6 PRN PRN COPD (Reported) Amiodarone (Cordarone) 200 MG TAB 1 TAB PO DAILY HEART RATE Ammonium Lactate 12 % CREAM..G. 12 % TP BID foot fissures . Apixaban (Eliquis) 5 MG TABLET 1 TAB PO BID AFIB Atorvastatin Calcium 10 MG TABLET 1 TAB PO DAILY CHOLESTEROL Carvedilol (Coreg) 25 MG TABLET 1 TAB PO BID HIGH BLOOD PRESSURE (Reported) Dicyclomine HCl 10 MG CAPSULE 1 CAP PO TID ABDOMINAL PAIN Escitalopram Oxalate 5 MG TABLET 1 TAB PO DAILY MENTAL HEALTH (Reported) Febuxostat (Uloric) 40 MG TABLET 40 MG PO DAILY Gout Ferrous Sulfate 325 MG (65 MG IRON) TABLET 1 TAB PO DAILY anemia Fluticasone/Salmeterol (Advair 500-50 Diskus) 500 MCG-50 MCG/DOSE BLST.W.DEV 1 PUF INH BID COPD (Reported) Furosemide (Lasix) 20 MG TABLET 1 TAB PO DAILY DIURETIC Gabapentin 400 MG CAPSULE 1 CAP PO TID NEUROPATHY (Reported) Glimepiride 1 MG TABLET 1 TAB PO BID DM (Reported) Guaifenesin (Guaifenesin ER) 600 MG TAB.ER.12H 1 TAB PO BID CONGSETION Hydroxyzine Hydrochloride (Atarax) 50 MG TABLET 2 TAB PO BID MUCUS (Reported) Ipratropium/Albuterol Sulfate (Combivent Respimat Inhal [place]) 20 MCG-100 MCG/ ACTUATION MIST.INHAL 2 PUFF INH BID copd (Reported) Metformin HCl (Glucophage) 1,000 MG TABLET 1 TAB PO BID DM (Reported) Montelukast Sodium (Singulair) 10 MG TABLET 1 TAB PO DAILY RESPIRATORY ( Reported) Oxymetazoline HCl (Nasal Decongestant) 0.05 % SPRAY 2 SPRAY JOAQUIN BID PRN NASAL CONGESTION Umeclidinium [place] (Incruse Ellipta) 62.5 MCG/ACTUATION BLST.W.DEV 1 PUFF INH DAILY COPD (Reported) Past History Travel History Traveled to [place] past 21 day No Medical History Neurological: NONE EENT: NONE Cardiovascular: cardiomyopathy, CHF, chronic venous insuff, hyperlipidemia, CARDIAC ARREST S/P LWC PACER Respiratory: COPD, SLEEP APNEA O2 3.5L NC @ [facility] Gastrointestinal: constipation, peptic ulcer disease, EGD 08/10 showed numerous gastric and duodenal ulcers Hepatic: NONE Renal: benign prost hyperplasia, TEMPORORY DIALYSIS Musculoskeletal: gout, rheumatoid arthritis Psychiatric: NONE Endocrine: diabetes Blood Disorders: anemia Cancer(s): 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 Psychosocial History Who Do You Live With? self Services at Home: Oxygen Primary Language: Macanese Functional Ability ADLs Independent: dressing, eating, toileting, bathing. Ambulation: independent IADLs Independent: shopping, housework, finances, food prep, telephone, transportation , medication admin. Review of Systems Review of Systems Constitutional: Denies: chills, diaphoresis, fever, malaise, weakness. EENTM: Reports: no symptoms. Cardiovascular: Reports: edema, palpitations, peripheral edema. Denies: chest pain, orthopena, syncope. Respiratory: Reports: short of breath. Denies: cough, hemoptysis, orthopnea, sputum production, stridor, wheezing. GI: Reports: no symptoms. Genitourinary: Reports: no symptoms. Musculoskeletal: Reports: no symptoms. Skin: Reports: no symptoms. Neurological/Psychological: Reports: no symptoms. Hematologic/Endocrine: Reports: no symptoms. Exam & Diagnostic Data Last 24 Hrs of Vital Signs/I&O Vital Signs Date Time Temp Pulse Resp B/P B/P Pulse O2 O2 Flow FiO2 Mean Ox Delivery Rate 03/05 0904 97.8 75 18 135/72 95 Nasal 3.5L Cannula 03/05 0647 97.2 77 30 171/82 94 Room Air Intake & Output 03/05 1600 03/05 0800 03/05 0000 Intake Total Output Total 750 Balance -750 Output, Urine 750 Patient 385 lb Weight Weight Reported by Patient Measurement Method Physical Exam General Appearance Alert, Oriented X3, Cooperative, No Acute Distress Skin chronic skin discoloration in lower extremities, open ulcers/blisters. no pus no discharge Skin Temp/Moisture Exam: Warm/Dry Sepsis Skin Exam (color): Normal for Ethnicity HEENT Atraumatic, PERRLA, EOMI, Mucous Membr. moist/pink Neck Supple Lymphatic Cervical nl Cardiovascular Regular Rate, Normal S1, Normal S2, No Murmurs, Gallops, Rubs Lungs expiratory wheezes Abdomen Normal Bowel Sounds, Soft, No Tenderness, No Hepatospenomegaly, No Masses Neurological Normal Gait, Normal Speech, Strength at 5/5 X4 Ext, Normal Tone, Sensation Intact, Cranial Nerves 3-12 NL, Reflexes 2+ Extremities B/L LE edema, more on left side Vascular Normal Pulses, Pulses Symmetrical Last 24 Hrs of Labs/Joaquim: Laboratory Tests 03/05/18 0630: Anion Gap 11, Estimated GFR > 60, BUN/Creatinine Ratio 16.4, Glucose 152 H, Calcium 8.9, Magnesium 1.6, Total Bilirubin 0.7, AST 11 L, ALT 22, Alkaline Phosphatase 70, Troponin I 0.06, Upz-X-Qwmcvhyivfr Pept 1760 H, Total Protein 6.4, Albumin 3.4 L, Globulin 3.0, Albumin/Globulin Ratio 1.1, PT 15.4 H, INR 1.41 H, CBC w Diff NO MAN DIFF REQ, RBC 4.18 L, MCV 85.4, MCH 26.6 L, MCHC 31.2 L, RDW 15.4 H, MPV 6.8 L, Gran % 62.2, Lymphocytes % 23.1, Monocytes % 12.7 H, Eosinophils % 1.6, Basophils % 0.4, Absolute Granulocytes 5.3, Absolute Lymphocytes 2.0, Absolute Monocytes 1.1 H, Absolute Eosinophils 0.1, Absolute Basophils 0 03/05/18 0620: Chc-Q-Xmsqtazogng Pept Cancelled Diagnostic Data CXR Results Similar appearance to prior. Central vascular prominence without overt edema. Other Results Exam Date: 02/12/2018 CONCLUSIONS 1. Aortic sclerosis is present with no valvular stenosis or insufficiency. 2. Mitral leaflet thickening is present with mild mitral insufficiency and left atrial enlargement. Spontaneous contrast is present. 3. THe left atrial appendage is normal with no evidence of thrombus. 4. The pulmonary venous anatomy appears normal. 5. There is no pericardial fluid present. 6. The left ventricular chamber is dilated with global hypokinesia and eccentric hypertrophy with an ejection fraction of approximately 25%. 7. The right heart structures were not optimally assessed. Mild tricuspid and pulmonic insufficiency are present. 8. A PFO is present. Agitated saline injection was not performed. 9. Grade I atheromatous plaque is present in the distal aortic arch and descending thoracic aorta. 10. An illdefined linear mobile echodensity is present in the mid descending thoracic aorta. I suspect that this represents acoustic artifact, however, the possibility of a focal intimal disruption cannot be totally excluded by this examination. Further assessment with a CTA chest is suggested if feasible. Immediately following the completion of the ANUPAMA, while still under anesthesia, the patient was converted to NSR with 300 joules of synchronized energy. The patient woke in stable condition with no complications incurred and maintained sinus rhythm. Daksha George M.D. Assessment/Plan Assessment: This is a 63 YO M w/PMH significant for heart failure with reduced ejection fraction of 25-30%, mild tricuspid regurg, nonischemic cardiomyopathy status post pacemaker(2015), COPD on 3.5 L of oxygen, obstructive sleep apnea not on CPAP, diabetes, chronic kidney disease, hyperlipidemia, peptic ulcer disease, chronic lower extremity edema, and gout s/p soft tissue debridement of left foot with multiple admissions for persistent gout and COPD who presents today for increased lower extremity edema and palpitation for 2 days. Has received IV lasix 40MG in the ED. ProBNP: 1760(1680 ). Problem list: #LE edema, CHF #Palpitation and chest pressure Plan: As Ranked By This Provider Problem List: 1. CHF exacerbation Core Measures/Misc (07/12) Acute Coronary Syndrome ACS Diagnosis: No Congestive Heart Failure Congestive Heart Failure Diagnosis Yes Cerebrovascular Accident CVA/TIA Diagnosis: No VTE (View Protocol) VTE Risk Factors No risk factors No Mechanical VTE Prophylaxis d/t N/A MechProphylax Ordered No VTE Pharm Prophylaxis d/t NA PharmProphylax ordered Sepsis (View protocol) Sepsis Present: No Janelle Shaikh 03/05/18 1121: Attending MD Review Statement Attending Statement Attending MD Statement: examined this patient, discuss w/resident/PA/JET INSPECTOR, agreed w/resident/PA/JET INSPECTOR, discussed with family, reviewed EMR data (avail), discussed with nursing, discussed with case mgmt, reviewed images, amended to note Attending Assessment/Plan: Tereza presented here with palpiations recently treated by ablation and on amidarone for rryhtm control. He is on anticaogulation with eliquis. Patient admitted here for CHF with requirement of iv lasix in ER and improvement thereafter. Obtain serial cardiac enzymes and monitor creatinine. gi/dvt prophyalxis full code.
[2018-03-05 10:49] VITALS: BP 138/84
[2018-03-05 14:08] VITALS: BP 136/92
--- NOTE | 2018-03-05 14:15 | Cons- Cardiology ---
General Information and HPI Consulting Request Date of Consult: 03/05/18 Requested By: Kinsey Marte MD Reason for Consult: Palpitations and worsening lower extremity edema Source of Information: patient, old records Exam Limitations: no limitations History of Present Illness: The patient is a 63-year-old white male who is well-known to me from prior office visits and admissions. He has an extensive past medical history including nonischemic cardiac myopathy with ejection fraction 25-30%, COPD on home oxygen, obstructive sleep apnea not on CPAP, diabetes, prior renal insufficiency/renal failure with temporary dialysis, hyperlipidemia, chronic lower extremity edema with venous insufficiency, gout, etc. Patient now presents to the emergency room for further evaluation of several days of "palpitations". He is also noted to have worsening lower extremity edema with weeping of the left lower extremity. He denies any other cardiovascular symptoms. On arrival to the emergency room, the patient was in sinus rhythm. According to the patient, he has not had any fevers, chills, etc. Allergies/Medications Allergies: Coded Allergies: No Known Allergies (01/08/18) Home Med List: Acetaminophen 500 MG TABLET 1 TAB PO DAILY PRN PAIN PLEASE ALTERNATE WITH NAPROXEN FOR PAIN Albuterol Sulfate (Proair Hfa) 90 MCG HFA.AER.AD 2 PUF INH Q4-6 PRN PRN COPD (Reported) Amiodarone (Cordarone) 200 MG TAB 1 TAB PO DAILY HEART RATE Ammonium Lactate 12 % CREAM..G. 12 % TP BID foot fissures . Apixaban (Eliquis) 5 MG TABLET 1 TAB PO BID AFIB Atorvastatin Calcium 10 MG TABLET 1 TAB PO DAILY CHOLESTEROL Carvedilol (Coreg) 25 MG TABLET 1 TAB PO BID HIGH BLOOD PRESSURE (Reported) Dicyclomine HCl 10 MG CAPSULE 1 CAP PO TID ABDOMINAL PAIN Escitalopram Oxalate 5 MG TABLET 1 TAB PO DAILY MENTAL HEALTH (Reported) Febuxostat (Uloric) 40 MG TABLET 40 MG PO DAILY Gout Ferrous Sulfate 325 MG (65 MG IRON) TABLET 1 TAB PO DAILY anemia Fluticasone/Salmeterol (Advair 500-50 Diskus) 500 MCG-50 MCG/DOSE BLST.W.DEV 1 PUF INH BID COPD (Reported) Furosemide (Lasix) 20 MG TABLET 1 TAB PO DAILY DIURETIC Gabapentin 400 MG CAPSULE 1 CAP PO TID NEUROPATHY (Reported) Glimepiride 1 MG TABLET 1 TAB PO BID DM (Reported) Guaifenesin (Guaifenesin ER) 600 MG TAB.ER.12H 1 TAB PO BID CONGSETION Hydroxyzine Hydrochloride (Atarax) 50 MG TABLET 2 TAB PO BID MUCUS (Reported) Ipratropium/Albuterol Sulfate (Combivent Respimat Inhal [place]) 20 MCG-100 MCG/ ACTUATION MIST.INHAL 2 PUFF INH BID copd (Reported) Metformin HCl (Glucophage) 1,000 MG TABLET 1 TAB PO BID DM (Reported) Montelukast Sodium (Singulair) 10 MG TABLET 1 TAB PO DAILY RESPIRATORY ( Reported) Oxymetazoline HCl (Nasal Decongestant) 0.05 % SPRAY 2 SPRAY JOAQUIN BID PRN NASAL CONGESTION Umeclidinium [place] (Incruse Ellipta) 62.5 MCG/ACTUATION BLST.W.DEV 1 PUFF INH DAILY COPD (Reported) Current Medications: Current Medications Sig/[place] Start time Last Medication Dose Route Stop Time Status Admin Albuterol Sulfate 3 ML TID 03/05 1400 AC 03/05 INH 1236 Albuterol Sulfate 2 PUF Q4-6 PRN PRN 03/05 1100 AC INH Amiodarone HCl 200 MG DAILY 03/05 1315 AC PO Amiodarone HCl 200 MG DAILY 03/05 1058 DC PO Apixaban 5 MG BID 03/05 0923 AC 03/05 PO 0954 Atorvastatin Calcium 10 MG DAILY 03/05 1058 AC 03/05 PO 1344 Carvedilol 25 MG BID 03/05 1058 AC 03/05 PO 1345 Escitalopram Oxalate 5 MG DAILY 03/05 1058 DC PO Furosemide 40 MG ONCE ONE 03/05 0715 DC 03/05 IV 03/05 0716 0730 Furosemide 0 .STK-MED ONE 03/05 0710 DC IV Gabapentin 400 MG TID 03/05 1400 AC 03/05 PO 1344 Hydroxyzine HCl 100 MG BID 03/05 1349 UNVr PO Insulin Aspart 0 TIDAC 03/05 1200 AC SC Montelukast Sodium 10 MG DAILY 03/05 1059 AC 03/05 PO 1344 Oxymetazoline HCl 2 SPRAY BID PRN 03/05 1100 AC JOAQUIN Patient Medication 1 ED ONE ONE 03/05 1345 DC Teaching ED 03/05 1346 Past History Travel History Traveled to [place] past 21 day No Medical History Neurological: NONE EENT: NONE Cardiovascular: cardiomyopathy, CHF, chronic venous insuff, hyperlipidemia, CARDIAC ARREST S/P LWC PACER Respiratory: COPD, SLEEP APNEA O2 3.5L NC @ [facility] Gastrointestinal: constipation, peptic ulcer disease, EGD 08/10 showed numerous gastric and duodenal ulcers Hepatic: NONE Renal: benign prost hyperplasia, TEMPORORY DIALYSIS Musculoskeletal: gout, rheumatoid arthritis Psychiatric: NONE Endocrine: diabetes Blood Disorders: anemia Cancer(s): 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 Psychosocial History Who Do You Live With? self Services at Home: Oxygen Primary Language: [place]i Functional Ability ADLs Independent: dressing, eating, toileting, bathing. Ambulation: independent IADLs Independent: shopping, housework, finances, food prep, telephone, transportation , medication admin. Exam & Diagnostic Data Vital Signs and I&O Vital Signs Date Time Temp Pulse Resp B/P B/P Pulse O2 O2 Flow FiO2 Mean Ox Delivery Rate 03/05 1352 Nasal 3.5L Cannula 03/05 1345 76 138/84 03/05 1049 98.8 76 20 138/84 95 Nasal Cannula 03/05 0904 97.8 75 18 135/72 95 Nasal 3.5L Cannula 03/05 0647 97.2 77 30 171/82 94 Room Air Intake & Output 03/05 1600 03/05 0800 03/05 0000 03/04 1600 03/04 0800 03/04 0000 Intake Total Output Total 750 Balance -750 Output, Urine 750 Patient 385 lb Weight Weight Reported by Patient Measurement Method Physical Exam: General Appearance: well developed, overweight white male, alert, awake, oriented Head: normal HEENT: Normal Neck: supple, JVP normal, carotid upstrokes normal bilaterally, no masses or thyromegaly Respiratory: chest non-tender, scattered bilateral rhonchi Cardiovascular: regular rate/rhythm, normal S1, S2, 2/6 systolic murmur Abdomen: normal bowel sounds, soft, non-tender Extremities: normal inspection, 2-3+ bilateral edema with significant stasis changes. Worse on the left side. Weeping abrasion/unroofed blisters left leg Vascular: Pulses are 2+ and equal bilaterally Neurologic: Grossly normal/nonfocal Labs/Joaquim Results: Laboratory Tests 03/05 03/05 03/05 1220 0630 0620 Chemistry Sodium (137 - 145 mmol/L) 145 Potassium (3.5 - 5.1 mmol/L) 4.4 Chloride (98 - 107 mmol/L) 98 Carbon Dioxide (22 - 30 mmol/L) 36 H Anion Gap (5 - 16) 11 BUN (9 - 20 mg/dL) 18 Creatinine (0.7 - 1.2 mg/dL) 1.1 Estimated GFR (>60 ml/min) > 60 BUN/Creatinine Ratio (7 - 25 %) 16.4 Glucose (65 - 99 mg/dL) 152 H Calcium (8.4 - 10.2 mg/dL) 8.9 Magnesium (1.6 - 2.3 mg/dL) 1.6 Total Bilirubin (0.2 - 1.3 mg/dL) 0.7 AST (17 - 59 U/L) 11 L ALT (21 - 72 U/L) 22 Alkaline Phosphatase (< 127 U/L) 70 Troponin I (<0.11 ng/ml) 0.05 0.06 Xjk-Z-Vllezmryivp Pept (<125 pg/mL) 1760 H Cancelled Total Protein (6.3 - 8.2 g/dL) 6.4 Albumin (3.5 - 5.0 g/dL) 3.4 L Globulin (1.9 - 4.2 gm/dL) 3.0 Albumin/Globulin Ratio (1.1 - 2.2 %) 1.1 Coagulation PT (9.4 - 12.5 SEC) 15.4 H INR (0.90 - 1.17) 1.41 H Hematology CBC w Diff NO MAN DIFF REQ WBC (4.8 - 10.8 /CUMM) 8.5 RBC (4.70 - 6.10 /CUMM) 4.18 L Hgb (14.0 - 18.0 G/DL) 11.1 L Hct (42 - 52 %) 35.7 L MCV (80.0 - 94.0 FL) 85.4 MCH (27.0 - 31.0 PG) 26.6 L MCHC (33.0 - 37.0 G/DL) 31.2 L RDW (11.5 - 14.5 %) 15.4 H Plt Count (130 - 400 /CUMM) 204 MPV (7.4 - 10.4 FL) 6.8 L Gran % (42.2 - 75.2 %) 62.2 Lymphocytes % (20.5 - 51.1 %) 23.1 Monocytes % (1.7 - 9.3 %) 12.7 H Eosinophils % (0 - 5 %) 1.6 Basophils % (0.0 - 2.0 %) 0.4 Absolute Granulocytes (1.4 - 6.5 /CUMM) 5.3 Absolute Lymphocytes (1.2 - 3.4 /CUMM) 2.0 Absolute Monocytes (0.10 - 0.60 /CUMM) 1.1 H Absolute Eosinophils (0.0 - 0.7 /CUMM) 0.1 Absolute Basophils (0.0 - 0.2 /CUMM) 0 Assessment/Plan Assessment/Plan Assessment: 1. Palpitations with history of prior paroxysmal atrial for ablation 2. Worsening lower extremity edema with weeping unroofed blisters left lower extremity 3. Cardiomyopathy, nonischemic, with ejection fraction of 25-30% 4. History of indwelling pacemaker/defibrillator with biventricular pacing and recent conization 5. Obesity 6. COPD on home oxygen 7. Sleep apnea, untreated 8. Diabetes Recommendations: -At the moment, the patient is in sinus rhythm. He was cardioverted from atrial for ablation at the time of his last admission. For now, he does have a an interventricular conduction delay and slightly long corrected QT interval, however, I would continue his amiodarone for now as long as this is okay with electrophysiology due to the fact that he does not tolerate the atrial fibrillation well and his rhythm is much better controlled at present. He also has a defibrillator in place for protection. -Diuresis with IV Lasix with close monitoring of intakes, outputs, daily weights , and daily BUN/creatinine -Monitor potassium and magnesium closely -There is no need to repeat echocardiogram at the present time -Continue all conservative care for lower extremity edema including leg elevation, leg wraps if possible, sodium restriction, etc. -Again, I would recommend a vascular surgery evaluation as outpatient to see if the patient is a candidate for venous closure procedures. -Pacemaker interrogation to assess for episodes of atrial fibrillation prior to admission -The patient is in the hospital on Thursday, follow up with Dr. Amadou Willoughby at that time to reassess medications, etc. Consult Acknowledgment - Thank you for your consult request.
[2018-03-05 22:40] VITALS: BP 174/70
[2018-03-06 07:00] VITALS: BP 120/88
[2018-03-06 08:07] LABS: ABSOLUTE BASOPHIL COUNT 0 /CUMM (0.0-0.2); ABSOLUTE EOSINOPHIL COUNT 0.1 /CUMM (0.0-0.7); ABSOLUTE GRANULOCYTE CT 4.1 /CUMM (1.4-6.5); ABSOLUTE LYMPH COUNT 1.4 /CUMM (1.2-3.4); ABSOLUTE MONOCYTE COUNT 0.9 /CUMM (0.10-0.60); BASOPHIL % 0.2 % (0.0-2.0); GRANULOCYTE % 62.5 % (42.2-75.2); HEMATOCRIT 36.1 % (42-52); MEAN CORPUSCULAR HGB CONC 31.4 G/DL (33.0-37.0); MEAN PLATELET VOLUME 6.9 FL (7.4-10.4); PLATELET COUNT 182 /CUMM (130-400); RBC DISTRIBUTION WIDTH 15.4 % (11.5-14.5); RED BLOOD CELL CT 4.19 /CUMM (4.70-6.10); WHITE BLOOD CELL COUNT 6.6 /CUMM (4.8-10.8)
--- NOTE | 2018-03-06 09:26 | PN-Observation ---
Tiffanie HARPER,Jamir 03/06/18 0925: Observation Note Observation Note _ I have personally examined SUZETTE GRIGSBY SR. him disposition is uncertain at this time. Before a determination can be made, he requires continued observation for the following reasons [Palpitations]. Assessment/Plan Medical Assessment: Patient is a 63-year-old male with a PMH significant for HFrEF, nonischemic cardiomyopathy status post pacemaker placement, COPD on 3.5 L O2 at baseline, JORY on CPAP, DM, CKD, HLD, PUD, chronic lower extremity edema who presented complaining of worsening lower extremity edema and palpitations Patient is being observed on telemetry #Palpitations Patient was noted to have a run of NSVT on telemetry, however his palpitations have now resolved his pain dyspnea at this time. -Started on losartan 25 mg daily -Continue rest of medication regimen -Electrophysiology consultation on Thursday if patient remains in-house #HFrEF Patient has worsening lower extremity edema with chronic venous stasis changes and persistent lower extremity pain -Patient will follow up with vascular surgery as an outpatient -Continue IV Lasix -Continue adequate pain management Diet: Diabetic diet DVT prophylaxis: Eliquis CODE STATUS: Full code Problem List: 1. Palpitations 2. CHF (congestive heart failure) 3. Chronic venous stasis dermatitis Subjective Follow-up For: Palpitations Worsening lower external edema HFr EF Subjective: Patient was seen and examined at bedside. He was resting comfortably. He had no acute events overnight. He continues to complain of lower extremity pain, worsening lower extremity edema. He states that his palpitations have resolved, he denies any within the last day. He also denies any chest pain, shortness of breath, nausea, vomiting, fever, chills. Review of Systems Constitutional: Reports: see HPI. Objective Last 24 Hrs of Vital Signs/I&O Vital Signs Date Time Temp Pulse Resp B/P B/P Pulse O2 O2 Flow FiO2 Mean Ox Delivery Rate 03/06 2004 132/84 03/06 1350 97.9 76 20 166/78 94 03/06 0905 98.1 75 20 120/88 03/06 0905 98.1 75 20 120/88 03/06 0806 96 Nasal 3.5L Cannula 03/06 0800 93 Nasal 3.5L Cannula 03/06 0700 98.1 75 20 120/88 97 03/06 0000 Nasal 3.5L Cannula 03/05 2240 98.0 77 20 174/70 Intake & Output 03/06 1600 03/06 0800 03/06 0000 Intake Total 297 978 5075 Output Total 400 300 500 Balance 220 -200 800 Intake, Oral 125 063 3699 Number 1 0 Bowel Movements Output, Urine 400 300 500 Physical Exam General Appearance: Alert, Oriented X3, Cooperative, No Acute Distress Cardiovascular: Regular Rate, Normal S1, Normal S2 Lungs: Clear to Auscultation, Normal Air Movement Abdomen: Normal Bowel Sounds, Soft, No Tenderness Extremities: 2-3+ pitting edema of the bilateral LEs, overlying violaceous and hyperkeratotic skin changes Current Medications: Current Medications Sig/Keaton Start time Last Medication Dose Route Stop Time Status Admin Albuterol Sulfate 3 ML TID 03/05 1400 AC 03/06 INH 1955 Albuterol Sulfate 2 PUF Q4-6 PRN PRN 03/05 1100 AC INH Amiodarone HCl 200 MG DAILY 03/05 1315 AC 03/06 PO 0905 Apixaban 5 MG BID 03/05 0923 AC 03/06 PO 2004 Atorvastatin Calcium 10 MG DAILY 03/05 1058 AC 03/06 PO 0904 Carvedilol 25 MG BID 03/05 1058 AC 03/06 PO 2004 Furosemide 40 MG DAILY 03/06 0900 AC 03/06 IV 0907 Gabapentin 400 MG TID 03/05 1400 AC 03/06 PO 2004 Hydromorphone HCl 2 MG Q6P PRN 03/05 2000 AC 03/05 PO 2129 Hydroxyzine HCl 100 MG BID 03/05 1349 AC 03/06 PO 2004 Insulin Aspart 0 TIDAC 03/05 1200 AC 03/06 SC 1237 Losartan Potassium 25 MG DAILY 03/07 0900 AC PO Montelukast Sodium 10 MG DAILY 03/05 1059 AC 03/06 PO 0904 Oxycodone/ 2 TAB Q4P PRN 03/05 2015 AC 03/06 Acetaminophen PO 1859 Oxymetazoline HCl 2 SPRAY BID PRN 03/05 1100 AC JOAQUIN Last 24 Hrs of Labs/Mics: Laboratory Tests 03/06/18 0655: Anion Gap 11, Estimated GFR > 60, BUN/Creatinine Ratio 16.0, Magnesium 1.8, CBC w Diff NO MAN DIFF REQ, RBC 4.19 L, MCV 86.0, MCH 27.0, MCHC 31.4 L, RDW 15.4 H, MPV 6.9 L, Gran % 62.5, Lymphocytes % 21.7, Monocytes % 13.6 H, Eosinophils % 2.0, Basophils % 0.2, Absolute Granulocytes 4.1, Absolute Lymphocytes 1.4, Absolute Monocytes 0.9 H, Absolute Eosinophils 0.1, Absolute Basophils 0 Microbiology 03/06 2040 LOWER RESP: Respiratory Culture - RES 03/06 2040 LOWER RESP: Gram Stain - RES Thomas HARPER,Oswald 03/06/18 1623: Observation Note Observation Note _ I have personally examined ELIZAHarshaSUZETTE SR. him disposition is uncertain at this time. Before a determination can be made, he requires continued observation for the following reasons CHF excacerbation and bilateral chronic lower extremity edema On examination, vital signs - blood pressure is 166/78, heart rate of 76/m, respiratory rate 20/m, patient is afebrile. Patient presented here with palpiations recently treated by ablation and on amidarone for rryhtm control - and has underlying severe nonischemic cardiomyopathy with an AICD. He is on anticaogulation with eliquis. Cardiology recommend initiating an angiotensin receptor angel. Initiate a low-dose of Losartan 25 mg OD and see how the patient tolerates it. Obstructive sleep apnea on CPAP COPD on home oxygen.
[2018-03-06 13:50] VITALS: BP 166/78
--- NOTE | 2018-03-06 14:23 | PN- Cardiology ---
Subjective Subjective: The patient is awake, alert, states feeling improved. Telemetry demonstrated a short run of nonsustained ventricular tachycardia ( patient asymptomatic for the same) The events of the last 24 hours as well as telemetry were reviewed. Review of Systems: The review of systems is negative for chest pains, palpitations nor lightheadedness. The remainder of the 14 point review of systems is noncontributory with the exception of above. Objective Vital Signs and I&Os Vital Signs Date Time Temp Pulse Resp B/P B/P Pulse O2 O2 Flow FiO2 Mean Ox Delivery Rate 03/06 0905 98.1 75 20 120/88 03/06 0905 98.1 75 20 120/88 03/06 0806 96 Nasal 3.5L Cannula 03/06 0700 98.1 75 20 120/88 97 03/06 0000 Nasal 3.5L Cannula 03/05 2240 98.0 77 20 174/70 03/05 2135 76 142/90 03/05 1850 97 Nasal 3.5L Cannula 03/05 1704 75 136/90 03/05 1600 Nasal 3.5L Cannula 03/05 1408 98.2 75 20 136/92 96 Nasal Cannula Intake & Output 03/06 1600 03/06 0800 03/06 0000 03/05 1600 03/05 0800 03/05 0000 Intake Total 100 1300 500 Output Total 300 500 750 Balance -200 800 -250 Intake, Oral 100 1300 500 Number 0 Bowel Movements Output, Urine 300 500 750 Patient 385 lb Weight Weight Reported by Patient Measurement Method Physical Exam: General: Nontoxic, no apparent distress, morbidly obese. HEENT: Sclera and conjunctiva within normal limits, without xanthelasmas. Neck: Carotids 2+ without bruits. Respiratory: Clear to auscultation, air movement is good, without accessory respiratory muscle use. Heart: Regular rate and rhythm, without murmurs, without JVD. Abdomen: Soft, nontender, no masses, normoactive bowel sounds. Extremities: Without clubbing, cyanosis, approximately 4 mm of pitting edema in both lower extremities with venous stasis changes. There is diffuse erythema. Neuro: Nonfocal exam, strength, 5 out of 5 Skin: Within normal limits without lesions. Psych: Mood and affect: Normal Current Medications: Current Medications Sig/Keaton Start time Last Medication Dose Route Stop Time Status Admin Albuterol Sulfate 3 ML TID 03/05 1400 AC 05/12 INH 1404 Albuterol Sulfate 2 PUF Q4-6 PRN PRN 03/05 1100 AC INH Amiodarone HCl 200 MG DAILY 03/05 1315 AC 03/06 PO 0905 Apixaban 5 MG BID 03/05 0923 AC 03/06 PO 1000 Atorvastatin Calcium 10 MG DAILY 03/05 1058 AC 03/06 PO 0904 Carvedilol 25 MG BID 03/05 1058 AC 03/06 PO 0905 Furosemide 40 MG DAILY 03/06 0900 AC 03/06 IV 0907 Gabapentin 400 MG TID 03/05 1400 AC 03/06 PO 1305 Hydromorphone HCl 2 MG Q6P PRN 03/05 2000 AC 03/05 PO 2129 Hydroxyzine HCl 100 MG BID 03/05 1349 AC 03/06 PO 0904 Insulin Aspart 0 TIDAC 03/05 1200 AC 03/06 SC 1237 Montelukast Sodium 10 MG DAILY 03/05 1059 AC 03/06 PO 0904 Oxycodone/ 2 TAB Q4P PRN 03/05 2015 AC 03/06 Acetaminophen PO 1204 Oxymetazoline HCl 2 SPRAY BID PRN 03/05 1100 AC JOAQUIN Results Last 48 Hrs of Labs/Mics: Laboratory Tests 03/06/18 0655: Anion Gap 11, Estimated GFR > 60, BUN/Creatinine Ratio 16.0, Magnesium 1.8, CBC w Diff NO MAN DIFF REQ, RBC 4.19 L, MCV 86.0, MCH 27.0, MCHC 31.4 L, RDW 15.4 H, MPV 6.9 L, Gran % 62.5, Lymphocytes % 21.7, Monocytes % 13.6 H, Eosinophils % 2.0, Basophils % 0.2, Absolute Granulocytes 4.1, Absolute Lymphocytes 1.4, Absolute Monocytes 0.9 H, Absolute Eosinophils 0.1, Absolute Basophils 0 03/05/18 1825: Troponin I 0.05 03/05/18 1220: Troponin I 0.05 03/05/18 0630: Anion Gap 11, Estimated GFR > 60, BUN/Creatinine Ratio 16.4, Glucose 152 H, Calcium 8.9, Magnesium 1.6, Total Bilirubin 0.7, AST 11 L, ALT 22, Alkaline Phosphatase 70, Troponin I 0.06, Hjk-R-Olsljbrdzjc Pept 1760 H, Total Protein 6.4, Albumin 3.4 L, Globulin 3.0, Albumin/Globulin Ratio 1.1, PT 15.4 H, INR 1.41 H, CBC w Diff NO MAN DIFF REQ, RBC 4.18 L, MCV 85.4, MCH 26.6 L, MCHC 31.2 L, RDW 15.4 H, MPV 6.8 L, Gran % 62.2, Lymphocytes % 23.1, Monocytes % 12.7 H, Eosinophils % 1.6, Basophils % 0.4, Absolute Granulocytes 5.3, Absolute Lymphocytes 2.0, Absolute Monocytes 1.1 H, Absolute Eosinophils 0.1, Absolute Basophils 0 03/05/18 0620: Mqk-I-Vfbhqxmkkud Pept Cancelled Assessment/Plan Assessment/Plan 1. Palpitations with history of prior paroxysmal atrial fibrillation 2. Worsening lower extremity edema with weeping unroofed blisters left lower extremity 3. Cardiomyopathy, nonischemic, with ejection fraction of 25-30% 4. History of indwelling pacemaker/defibrillator with biventricular pacing 5. Obesity 6. COPD on home oxygen 7. Sleep apnea, untreated 8. Diabetes Nonischemic cardiomyopathy: The patient has a severe nonischemic cardiomyopathy and an indwelling AICD. He is currently on beta-blockade, and has noted a short nonsustained run of ventricular tachycardia. We will continue the current medication regimen including amiodarone. He will follow-up with his section leader and machine setter. The patient is currently not on an angiotensin receptor angel. If there is no contraindication, this should be started. Lower extremity edema: Likely multifactorial. We will continue with diuresis, as well as leg elevation and wraps. Follow-up with vascular surgery regarding his venous changes for possible recommendations will be sought. Continue telemetry? Yes
[2018-03-06 22:59] VITALS: BP 108/76
[2018-03-07 04:43] LABS: ABSOLUTE BASOPHIL COUNT 0 /CUMM (0.0-0.2); ABSOLUTE EOSINOPHIL COUNT 0.1 /CUMM (0.0-0.7); ABSOLUTE GRANULOCYTE CT 3.9 /CUMM (1.4-6.5); ABSOLUTE LYMPH COUNT 1.9 /CUMM (1.2-3.4); ABSOLUTE MONOCYTE COUNT 0.7 /CUMM (0.10-0.60); BASOPHIL % 0.3 % (0.0-2.0); EOSINOPHIL % 1.8 % (0-5); GRANULOCYTE % 58.8 % (42.2-75.2); HEMATOCRIT 34.5 % (42-52); MEAN CORPUSCULAR HGB 27.4 PG (27.0-31.0); MEAN CORPUSCULAR HGB CONC 31.6 G/DL (33.0-37.0); MEAN CORPUSCULAR VOLUME 86.4 FL (80.0-94.0); MEAN PLATELET VOLUME 6.6 FL (7.4-10.4); PLATELET COUNT 183 /CUMM (130-400); RBC DISTRIBUTION WIDTH 15.2 % (11.5-14.5); RED BLOOD CELL CT 3.99 /CUMM (4.70-6.10); WHITE BLOOD CELL COUNT 6.6 /CUMM (4.8-10.8)
[2018-03-07 07:38] VITALS: BP 108/68
--- NOTE | 2018-03-07 11:06 | PN-Observation ---
Jorge Luis [facility]PER,[facility] 03/07/18 1105: Observation Note Observation Note _ I have personally examined SUZETTE GRIGSBY SR. him disposition is uncertain at this time. Before a determination can be made, he requires continued observation for the following reasons [lower border line BP after starting OBN, substernal chest discomfort, cough productive of significant amount of thick white sputum in a pt with HFrEF.]. Assessment/Plan Medical Assessment: 63-year-old male with extensive PMH include but not limited to HFrEF 25-30%, cardiomyopathy ( W/ pacemaker/defibrillator with biventricular pacing), COPD on 3.5 L, and multiple risk factors for CAD (DM, HTN, obesity, untreated JORY, & COPD) who presented because of 2 days of substernal chest heaviness associated with palpitation with hx of paroxysmal A.fib. The patient is in sinus rhythms since admission until now, without significant arrhythmia except for a short nonsustained run of ventricular tachycardia on tele, pt is currently on amiodarone 200 mg/d, carvedilol 25mg/BID, apixaban 5 mg/BID. He is on IV lasix 40 mg/BID for LE edema. Losartan 25 mg started, first dose was given today at 9 AM. The pt is stable on current medications, he is back to baseline, However he is still on IV lasix 40 mg for LE edema. First dose of losartan was given today 9 am. We'll repeat BEP tomorrow for effect of losartan on renal function and potassium. The pt has multiple comorbidities that may lead to mortality if untreated, he currently homeless and need a safe discharge plan. Problem List: 1. CHF exacerbation 2. Chronic venous stasis dermatitis Plan: * We'll observe the patient until the morning and repeat BEP * Continue all current mediation, IV lasix to be switch to PO in am * Continue CPAP for JORY. * Continue O2 * vascular surgery and line fixer can evaluate in the morning if they are avilable before discharge, other wilson he can follow with them as an out pt. * Continue current dies * DVT ppx:eliquis * FC Subjective Follow-up For: palpitation LE edema Subjective: The pt was coughing thick sputum during physical exam this am. He feels better and reports significant improvement of all his symptoms but still have LE edema. He denies any other current active complain Review of Systems Constitutional: Reports: no symptoms, see HPI. Objective Last 24 Hrs of Vital Signs/I&O Vital Signs Date Time Temp Pulse Resp B/P B/P Pulse O2 O2 Flow FiO2 Mean Ox Delivery Rate 03/07 1819 Nasal 3.5L Cannula 03/07 1815 98.4 82 20 120/82 93 Nasal Cannula 03/07 1400 97.6 94 20 100/66 93 03/07 0939 97.7 77 20 108/68 03/07 0938 97.7 77 20 108/68 03/07 0938 97.7 77 20 108/68 03/07 0919 96 Nasal 3.5L Cannula 03/07 0800 94 Nasal 3.5L Cannula 03/07 0738 97.7 77 20 108/68 97 Nasal 3.5L Cannula 03/07 0000 Nasal 3.5L Cannula 03/06 2259 99.6 76 20 108/76 96 03/06 2004 132/84 03/06 1955 96 Nasal 3.5L Cannula Intake & Output 03/07 1600 03/07 0800 03/07 0000 Intake Total 740 100 Output Total 650 200 550 Balance 90 -200 -450 Intake, Oral 740 100 Output, Urine 650 200 550 Patient 126.779 kg Weight Physical Exam General Appearance: Alert, Oriented X3, Cooperative, No Acute Distress HEENT: Atraumatic, PERRLA, EOMI, Mucous Membr. moist/pink Neck: No JVD Cardiovascular: Regular Rate, Normal S1, Normal S2, No Murmurs Lungs: Clear to Auscultation, Normal Air Movement Abdomen: Soft, No Tenderness Neurological: Normal Speech Extremities: +2 pitting edema of the LE bilaterally. Current Medications: Current Medications Sig/Keaton Start time Last Medication Dose Route Stop Time Status Admin Albuterol Sulfate 3 ML TID 03/05 1400 AC 03/07 INH 1256 Albuterol Sulfate 2 PUF Q4-6 PRN PRN 03/05 1100 AC INH Amiodarone HCl 200 MG DAILY 03/05 1315 AC 03/07 PO 0939 Apixaban 5 MG BID 03/05 09 AC 03/07 PO 0938 Atorvastatin Calcium 10 MG DAILY 03/05 1058 AC 03/07 PO 0937 Carvedilol 25 MG BID 03/05 1058 AC 03/07 PO 0938 Furosemide 40 MG DAILY 03/06 09 AC 03/07 IV 0937 Gabapentin 400 MG TID 03/05 1400 AC 03/07 PO 1417 Hydromorphone HCl 2 MG Q6P PRN 03/05 2000 AC 03/05 PO 2129 Hydroxyzine HCl 100 MG BID 03/05 1349 AC 03/07 PO 0938 Insulin Aspart 0 TIDAC 03/05 1200 AC 03/07 SC 1709 Losartan Potassium 25 MG DAILY 03/07 0900 AC 03/07 PO 0938 Montelukast Sodium 10 MG DAILY 03/05 1059 AC 03/07 PO 0937 Oxycodone/ 2 TAB Q4P PRN 03/05 2015 AC 03/07 Acetaminophen PO 154 Oxymetazoline HCl 2 SPRAY BID PRN 03/05 1100 AC JOAQIUN Last 24 Hrs of Labs/Mics: Laboratory Tests 03/07/18 0340: Anion Gap 8, Estimated GFR > 60, BUN/Creatinine Ratio 14.2, Magnesium 1.8, CBC w Diff NO MAN DIFF REQ, RBC 3.99 L, MCV 86.4, MCH 27.4, MCHC 31.6 L, RDW 15.2 H , MPV 6.6 L, Gran % 58.8, Lymphocytes % 28.7, Monocytes % 10.4 H, Eosinophils % 1.8, Basophils % 0.3, Absolute Granulocytes 3.9, Absolute Lymphocytes 1.9, Absolute Monocytes 0.7 H, Absolute Eosinophils 0.1, Absolute Basophils 0 Microbiology 03/06 2040 LOWER RESP: Respiratory Culture - RES 03/06 2040 LOWER RESP: Gram Stain - RES Oswald Guzman MD 03/07/18 1523: Observation Note Observation Note _ I have personally examined SUZETTE GRIGSBY SR. him disposition is plan for discharge tomorrow. Before a determination can be made, he requires continued observation for the following reasons CHF excacerbation and bilateral chronic lower extremity edema which is getting better. However patient refuses to get discharged as he was told by his regular air analysis technician that he will need inpatient evaluation by vascular surgery, which however not appears to be the case as detailed by the rounding air analysis technician on the weekend. On examination, vital signs - blood pressure is 108/68, heart rate is 77, respiratory rate of 20/m, afebrile saturating 96% Patient presented here with palpiations recently treated by ablation and on amidarone for rryhtm control - and has underlying severe nonischemic cardiomyopathy with an AICD. He is on anticaogulation with eliquis. Cardiology recommend initiating an angiotensin receptor angel. Initiated on a low-dose of Losartan 25 mg OD - tolerating well so far. Obstructive sleep apnea on CPAP COPD on home oxygen. Definitive discharge in the AM once evaluated by Vascular surgery for ? incompetent valves - which could probably be done as an outpatient too.
[2018-03-07] MEDS ORDERED: LOSARTAN POTASS25 M1 PO (12:42)
--- NOTE | 2018-03-07 12:48 | Patient Discharge Instructions ---
Discharge Instructions General Discharge Information You were seen/treated for: worsening lower extremity edema and palpitations Special Instructions: Please follow up with your PCP within one week. Please follow up with Dr George in one week, we have provided you with a referral. Please follow-up with his cone marker Dr Willoughby, we have provided you with a referral. Follow-up with vascular surgery regarding your venous changes, details of this appointment have been included below. Diet Continue normal diet: Yes Acute Coronary Syndrome Inclusion Criteria At DC or during hospital stay patient has or had the following: ACS DIAGNOSIS No Discharge Core Measures Meds if any: Prescribed or Continued at Discharge Meds if any: NOT Prescribed or Continued at Discharge Congestive Heart Failure Inclusion Criteria At DC or during hospital stay patient has or had the following: CHF DIAGNOSIS No Discharge Core Measures Meds if any: Prescribed or Continued at Discharge Meds if any: NOT Prescribed or Continued at Discharge Cerebrovascular accident Inclusion Criteria At DC or during hospital stay patient has or had the following: CVA/TIA Diagnosis No Discharge Core Measures Meds if any: Prescribed or Continued at Discharge Meds if any: NOT Prescribed or Continued at Discharge Venous thromboembolism Inclusion Criteria VTE Diagnosis No VTE Type NONE VTE Confirmed by (Test) NONE Discharge Core Measures - Per Current guidelines, there needs to be overlap - treatment for the first 5 days of Warfarin therapy. - If discharged on Warfarin prior to 5 days of - overlap therapy, the patient will need to be - assessed for post discharge needs including - *Post discharge parental anticoagulation - *Warfarin and/or parental anticoagulation education - *Follow up date to check INR post discharge At least 5 days overlap therapy as Inpatient No Meds if any: Prescribed or Continued at Discharge Note: Overlap Therapy is Warfarin and Anticoagulant Meds if any: NOT Prescribed or Continued at Discharge
--- NOTE | 2018-03-07 13:21 | PN- Cardiology ---
Subjective Subjective: The patient is awake, alert The events of the last 24 hours as well as telemetry were reviewed. Review of Systems: The review of systems is negative for chest pains, palpitations nor lightheadedness. The remainder of the 14 point review of systems is noncontributory with the exception of above. Objective Vital Signs and I&Os Vital Signs Date Time Temp Pulse Resp B/P B/P Pulse O2 O2 Flow FiO2 Mean Ox Delivery Rate 03/07 0939 97.7 77 20 108/03/07 0938 97.7 77 20 108/03/07 0938 97.7 77 20 108/03/07 0919 96 Nasal 3.5L Cannula 03/07 0738 97.7 77 20 108/68 97 Nasal 3.5L Cannula 03/07 0000 Nasal 3.5L Cannula 03/06 2259 99.6 76 20 108/76 96 03/06 2004 132/84 03/06 1955 96 Nasal 3.5L Cannula 03/06 1350 97.9 76 20 166/78 94 Intake & Output 03/07 1600 03/07 0800 03/07 0000 03/06 1600 03/06 0800 03/06 0000 Intake Total 100 755 742 7042 Output Total 650 200 550 400 300 500 Balance -650 -200 -450 220 -200 800 Intake, Oral 100 988 651 0274 Number 1 0 Bowel Movements Output, Urine 650 200 550 400 300 500 Patient 280 lb Weight Physical Exam: General: Nontoxic, no apparent distress, morbidly obese. HEENT: Sclera and conjunctiva within normal limits, without xanthelasmas. Neck: Carotids 2+ without bruits. Respiratory: Clear to auscultation, air movement is good, without accessory respiratory muscle use. Heart: Regular rate and rhythm, without murmurs, without JVD. Abdomen: Soft, nontender, no masses, normoactive bowel sounds. Extremities: Without clubbing, cyanosis, approximately 4 mm of pitting edema in both lower extremities with venous stasis changes. There is diffuse erythema. Neuro: Nonfocal exam, strength, 5 out of 5 Skin: Within normal limits without lesions. Psych: Mood and affect: Normal Current Medications: Current Medications Sig/Keaton Start time Last Medication Dose Route Stop Time Status Admin Albuterol Sulfate 3 ML TID 03/05 1400 AC 03/07 INH 1256 Albuterol Sulfate 2 PUF Q4-6 PRN PRN 03/05 1100 AC INH Amiodarone HCl 200 MG DAILY 03/05 1315 AC 03/07 PO 0939 Apixaban 5 MG BID 03/05 0923 AC 03/07 PO 0938 Atorvastatin Calcium 10 MG DAILY 03/05 1058 AC 03/07 PO 0937 Carvedilol 25 MG BID 03/05 1058 AC 03/07 PO 0938 Furosemide 40 MG DAILY 03/06 0900 AC 03/07 IV 0937 Gabapentin 400 MG TID 03/05 1400 AC 03/07 PO 0938 Hydromorphone HCl 2 MG Q6P PRN 03/05 2000 AC 03/05 PO 2129 Hydroxyzine HCl 100 MG BID 03/05 1349 AC 03/07 PO 0938 Insulin Aspart 0 TIDAC 03/05 1200 AC 03/07 SC 1211 Losartan Potassium 25 MG DAILY 03/07 0900 AC 03/07 PO 0938 Montelukast Sodium 10 MG DAILY 03/05 1059 AC 03/07 PO 0937 Oxycodone/ 2 TAB Q4P PRN 03/05 2015 AC 03/06 Acetaminophen PO 1859 Oxymetazoline HCl 2 SPRAY BID PRN 03/05 1100 AC JOAQUIN Results Last 48 Hrs of Labs/Mics: Laboratory Tests 03/07/18 0340: Anion Gap 8, Estimated GFR > 60, BUN/Creatinine Ratio 14.2, Magnesium 1.8, CBC w Diff NO MAN DIFF REQ, RBC 3.99 L, MCV 86.4, MCH 27.4, MCHC 31.6 L, RDW 15.2 H , MPV 6.6 L, Gran % 58.8, Lymphocytes % 28.7, Monocytes % 10.4 H, Eosinophils % 1.8, Basophils % 0.3, Absolute Granulocytes 3.9, Absolute Lymphocytes 1.9, Absolute Monocytes 0.7 H, Absolute Eosinophils 0.1, Absolute Basophils 0 03/06/18 0655: Anion Gap 11, Estimated GFR > 60, BUN/Creatinine Ratio 16.0, Magnesium 1.8, CBC w Diff NO MAN DIFF REQ, RBC 4.19 L, MCV 86.0, MCH 27.0, MCHC 31.4 L, RDW 15.4 H, MPV 6.9 L, Gran % 62.5, Lymphocytes % 21.7, Monocytes % 13.6 H, Eosinophils % 2.0, Basophils % 0.2, Absolute Granulocytes 4.1, Absolute Lymphocytes 1.4, Absolute Monocytes 0.9 H, Absolute Eosinophils 0.1, Absolute Basophils 0 03/05/18 1825: Troponin I 0.05 Assessment/Plan Assessment/Plan 1. Palpitations with history of prior paroxysmal atrial fibrillation 2. Worsening lower extremity edema with weeping unroofed blisters left lower extremity 3. Cardiomyopathy, nonischemic, with ejection fraction of 25-30% 4. History of indwelling pacemaker/defibrillator with biventricular pacing 5. Obesity 6. COPD on home oxygen 7. Sleep apnea, untreated 8. Diabetes Nonischemic cardiomyopathy: The patient has a severe nonischemic cardiomyopathy and an indwelling AICD. He is currently on beta-blockade, and has noted a short nonsustained run of ventricular tachycardia. We will continue the current medication regimen including amiodarone. He will follow-up with his mental health clinician. The patient was started on an angiotensin receptor angel. We will monitor his renal function Lower extremity edema: Likely multifactorial. We will continue with diuresis, as well as leg elevation and wraps. Follow-up with vascular surgery regarding his venous changes for possible recommendations will be sought. Continue telemetry? No
[2018-03-07 14:00] VITALS: BP 100/66
[2018-03-07 18:15] VITALS: BP 120/82
[2018-03-07 22:54] VITALS: BP 118/60
[2018-03-08 06:18] VITALS: BP 114/68
--- NOTE | 2018-03-08 08:57 | Cons- Wound Care ---
General Information and HPI Consulting Request Date of Consult: 03/08/18 Requested By: Ingris Membreno MD Reason for Consult: Recurrent bilateral lower extremity venous ulcers History of Present Illness: 63-year-old with cardiomyopathy chronic lower extremity edema venous stasis ulcerations nonadherent with elevation or treatment for sleep apnea admitted with increasing edema and weeping lower extremities. Allergies/Medications Allergies: Coded Allergies: No Known Allergies (01/08/18) Home Med List: Acetaminophen 500 MG TABLET 1 TAB PO DAILY PRN PAIN PLEASE ALTERNATE WITH NAPROXEN FOR PAIN Albuterol Sulfate (Proair Hfa) 90 MCG HFA.AER.AD 2 PUF INH Q4-6 PRN PRN COPD (Reported) Amiodarone (Cordarone) 200 MG TAB 1 TAB PO DAILY HEART RATE Ammonium Lactate 12 % CREAM..G. 12 % TP BID foot fissures . Apixaban (Eliquis) 5 MG TABLET 1 TAB PO BID AFIB Atorvastatin Calcium 10 MG TABLET 1 TAB PO DAILY CHOLESTEROL Carvedilol (Coreg) 25 MG TABLET 1 TAB PO BID HIGH BLOOD PRESSURE (Reported) Dicyclomine HCl 10 MG CAPSULE 1 CAP PO TID ABDOMINAL PAIN Escitalopram Oxalate 5 MG TABLET 1 TAB PO DAILY MENTAL HEALTH (Reported) Febuxostat (Uloric) 40 MG TABLET 40 MG PO DAILY Gout Ferrous Sulfate 325 MG (65 MG IRON) TABLET 1 TAB PO DAILY anemia Fluticasone/Salmeterol (Advair 500-50 Diskus) 500 MCG-50 MCG/DOSE BLST.W.DEV 1 PUF INH BID COPD (Reported) Furosemide (Lasix) 20 MG TABLET 1 TAB PO DAILY DIURETIC Gabapentin 400 MG CAPSULE 1 CAP PO TID NEUROPATHY (Reported) Glimepiride 1 MG TABLET 1 TAB PO BID DM (Reported) Guaifenesin (Guaifenesin ER) 600 MG TAB.ER.12H 1 TAB PO BID CONGSETION Hydroxyzine Hydrochloride (Atarax) 50 MG TABLET 2 TAB PO BID MUCUS (Reported) Ipratropium/Albuterol Sulfate (Combivent Respimat Inhal [place]) 20 MCG-100 MCG/ ACTUATION MIST.INHAL 2 PUFF INH BID copd (Reported) Losartan Potassium 25 MG TABLET 25 MG PO DAILY heart health Metformin HCl (Glucophage) 1,000 MG TABLET 1 TAB PO BID DM (Reported) Montelukast Sodium (Singulair) 10 MG TABLET 1 TAB PO DAILY RESPIRATORY ( Reported) Oxymetazoline HCl (Nasal Decongestant) 0.05 % SPRAY 2 SPRAY JOAQUIN BID PRN NASAL CONGESTION Umeclidinium [place] (Incruse Ellipta) 62.5 MCG/ACTUATION BLST.W.DEV 1 PUFF INH DAILY COPD (Reported) Review of Systems Review of Systems: Denies fever or chills Past History Travel History Traveled to [place] past 21 day No Medical History Neurological: NONE EENT: NONE Cardiovascular: AFIB, CAD, cardiomyopathy, CHF, chronic venous insuff, hyperlipidemia, CARDIAC ARREST S/P LWC PACER with DEFIB Respiratory: COPD, SLEEP APNEA O2 3.5L NC @ [facility] Gastrointestinal: constipation, peptic ulcer disease, EGD 08/10 showed numerous gastric and duodenal ulcers Hepatic: NONE Renal: benign prost hyperplasia, TEMPORORY DIALYSIS Musculoskeletal: gout, rheumatoid arthritis Psychiatric: NONE Endocrine: diabetes Blood Disorders: anemia Cancer(s): NONE LEARNING COORDINATOR/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 Psychosocial History Who Do You Live With? self Services at Home: Oxygen Primary Language: Martiniquais Smoking Status: Never Smoked Functional Ability ADLs Independent: dressing, eating, toileting, bathing. Ambulation: independent IADLs Independent: shopping, housework, finances, food prep, telephone, transportation , medication admin. Exam & Diagnostic Data Vital Signs and I&O Vital Signs Result Date Time B/P 102/64 03/08 0833 Pulse 72 03/08 0833 Pulse Ox 95 03/08 0618 O2 Delivery Nasal Cannula 03/08 0618 Temp 97.7 03/08 0618 Resp 18 03/08 0618 O2 Flow Rate 3.5L 03/08 0000 Intake & Output 03/08 0000 03/07 1600 03/07 0800 Intake Total 490 740 Output Total 650 200 Balance 490 90 -200 Intake, IV 10 Intake, Oral 480 740 Output, Urine 650 200 There is symmetrical bilateral lower extremity edema with multiple small superficial venous stasis ulcers is no undermining sinus tracking or exposed bone. Patient has been unwilling to elevate his legs effectively. Assessment/Plan Impression/Plan: D3-year-[age] gentleman with cardiomyopathy untreated sleep apnea chronic venous insufficiency and poor living conditions admitted with recurrent edema and weeping lower extremity ulceration. Recommend diuresis to the extent renal function will allow and bed rest with leg elevation above his heart. Wound care Xeroform and multilayer compression dressings. Outpatient vascular surgery evaluation for possible vein closure Consult Acknowledgment - Thank you for your consult request.
[2018-03-08] MEDS ORDERED: LASIX40 M1 PO (11:25)
--- NOTE | 2018-03-08 11:42 | PN-Observation ---
Son HARPER,[facility] 03/08/18 1142: Observation Note Observation Note _ I have personally examined SUZETTE PADILLA SR. him disposition is uncertain at this time. Before a determination can be made, he requires continued observation for the following reasons paatient stable for discharge. Will need to follow up as an outpatient with vascular and inspector bullet slugs. Assessment/Plan Medical Assessment: 63-year-old male with extensive PMH include but not limited to HFrEF 25-30%, cardiomyopathy ( W/ pacemaker/defibrillator with biventricular pacing), COPD on 3.5 L, and multiple risk factors for CAD (DM, HTN, obesity, untreated JORY, & COPD) who presented because of 2 days of substernal chest heaviness associated with palpitations with hx of paroxysmal A.fib. The patient has been in sinus rhythms since admission, without significant arrhythmia except for a short nonsustained run of ventricular tachycardia on tele. He is currently on the general medicin floor and being maintained on amiodarone 200 mg/d, carvedilol 25mg/BID, apixaban 5 mg/BID. He is on IV lasix 40 mg/BID for LE edema. Losartan 25 mg started, (started 03/07/2018). The pt is stable on current medications.. He tai be transitioned to PO lasix which has can start taking tomorrow 40 mg BID. Problem List: 1. Palpitations 2. Chronic venous stasis dermatitis Plan: Patient Stable for discharge. * Continue all current mediation,PO Lasxi 40 mg BID. * Continue CPAP for JORY. * Continue O2 * vascular surgery and music leader as an outpatient. * Continue current Diet. * DVT ppx:eliquis * FC Subjective Subjective: Mr. Padilla was seen and examined this morning. He is resting comfortably on the chair beside his bed. States that he was able to get some rest overnight. Currently on supplemental oxygen. Still concerned about worsening lower extremity edema stating that previously his legs did get better with elevation alone however this does not seem to be the case. Denies any fever, chills, nausea, vomiting. Still describes a productive cough sputum described as brown. Currently tolerating by mouth intake well. Review of Systems Constitutional: Reports: see HPI. Objective Last 24 Hrs of Vital Signs/I&O Vital Signs Date Time Temp Pulse Resp B/P B/P Pulse O2 O2 Flow FiO2 Mean Ox Delivery Rate 03/08 1600 Nasal 3.5L Cannula 03/08 1413 98.2 76 20 110/65 100 Nasal Cannula 03/08 0915 98 Nasal 3.5L Cannula 03/08 0833 72 102/64 03/08 0833 72 102/64 03/08 0832 72 105/64 03/08 0618 97.7 74 18 114/68 95 Nasal Cannula 03/08 0000 96 Nasal 3.5L Cannula 03/07 2254 98.9 76 18 118/60 96 Nasal Cannula 03/07 2234 97 Nasal 5.0L Cannula Intake & Output 03/08 1600 03/08 0800 03/08 0000 Intake Total 960 250 490 Output Total Balance 960 250 490 Intake, IV 10 10 Intake, Oral 960 240 480 Number 0 Bowel Movements Physical Exam General Appearance: Alert, Oriented X3, Cooperative Cardiovascular: Regular Rate, Normal S1, Normal S2 Lungs: Clear to Auscultation Abdomen: Normal Bowel Sounds, Soft, No Tenderness Neurological: Normal Gait, Normal Speech Extremities: No Clubbing, No Cyanosis, Right Lower Extremity > Left Lower Extremity. Choronic Venous Changes. , No Tenderness, Erythema or Warmth Current Medications: Current Medications Sig/Keaton Start time Last Medication Dose Route Stop Time Status Admin Albuterol Sulfate 3 ML TID 03/05 1400 DCD 03/08 INH 1405 Albuterol Sulfate 2 PUF Q4-6 PRN PRN 03/05 1100 DCD 03/08 INH 0837 Amiodarone HCl 200 MG DAILY 03/05 1315 DCD 03/08 PO 0832 Apixaban 5 MG BID 03/05 0923 DCD 03/08 PO 0833 Atorvastatin Calcium 10 MG DAILY 03/05 1058 DCD 03/08 PO 0834 Carvedilol 25 MG BID 03/05 1058 DCD 03/08 PO 0833 Furosemide 40 MG DAILY 03/09 0900 DCD PO Furosemide 40 MG DAILY 03/06 0900 DC 03/08 IV 0835 Gabapentin 400 MG TID 03/05 1400 DCD 03/08 PO 1311 Guaifenesin/ 10 ML ONCE ONE 03/08 0545 DC Dextromethorphan PO 03/08 0546 Hydromorphone HCl 2 MG Q6P PRN 03/05 2000 DCD 03/05 PO 2129 Hydroxyzine HCl 100 MG BID 03/05 1349 DCD 03/08 PO 0832 Insulin Aspart 0 TIDAC 03/05 1200 DCD 03/08 SC 1719 Losartan Potassium 25 MG DAILY 03/07 0900 DCD 03/08 PO 0833 Montelukast Sodium 10 MG DAILY 03/05 1059 DCD 03/08 PO 0834 Oxycodone/ 2 TAB Q4P PRN 03/05 2015 DCD 03/08 Acetaminophen PO 1718 Oxymetazoline HCl 2 SPRAY BID PRN 03/05 1100 DCD JOAQUIN Ingris Membreno 03/08/18 1142: Attending MD Review Statement Attending Statement Attending MD Statement: examined this patient, discuss w/resident/PA/SERVICE CREW SUPERVISOR, agreed w/resident/PA/SERVICE CREW SUPERVISOR, reviewed EMR data (avail), discussed w/nursing, discussed w/ case mgmt Attending Assessment/Plan: D/w pt the care plan. Plan is to dc him on po lasix 40mg bid. Pt will f/u with vascular surgery as an outpatient. Case management is working on arranging cafeteria food vouchers for him to promote healthy eating.
[2018-03-08] MEDS ORDERED: LOSARTAN POTASS25 M1 PO (11:47)
--- NOTE | 2018-03-08 12:18 | PN- Cardiology ---
Subjective Subjective: No chest pain. Shortness breath is improving. No palpitations. No nausea or vomiting. He continues to have significant lower extremity edema. Objective Vital Signs and I&Os Vital Signs Date Time Temp Pulse Resp B/P B/P Pulse O2 O2 Flow FiO2 Mean Ox Delivery Rate 03/08 0915 98 Nasal 3.5L Cannula 03/08 0833 72 102/64 03/08 0833 72 102/64 03/08 0832 72 105/64 03/08 0618 97.7 74 18 114/68 95 Nasal Cannula 03/08 0000 96 Nasal 3.5L Cannula 03/07 2254 98.9 76 18 118/60 96 Nasal Cannula 03/07 2234 97 Nasal 5.0L Cannula 03/07 1819 Nasal 3.5L Cannula 03/07 1815 98.4 82 20 120/82 93 Nasal Cannula 03/07 1400 97.6 94 20 100/66 93 Intake & Output 03/08 1600 03/08 0800 / 0000 03/07 1600 03/07 0800 03/07 0000 Intake Total 250 490 740 100 Output Total 650 200 550 Balance 250 490 90 -200 -450 Intake, IV 10 10 Intake, Oral 240 480 740 100 Output, Urine 650 200 550 Patient 280 lb Weight Physical Exam: General: Nontoxic, no apparent distress, morbidly obese. HEENT: Sclera and conjunctiva within normal limits, without xanthelasmas. Neck: Carotids 2+ without bruits. Respiratory: Clear to auscultation, air movement is good, without accessory respiratory muscle use. Heart: Regular rate and rhythm, without murmurs, without JVD. Abdomen: Soft, nontender, no masses, normoactive bowel sounds. Extremities: Without clubbing, cyanosis, approximately 4 mm of pitting edema in both lower extremities with venous stasis changes. There is diffuse erythema. Neuro: Nonfocal exam, strength, 5 out of 5 Current Medications: Current Medications Sig/Keaton Start time Last Medication Dose Route Stop Time Status Admin Albuterol Sulfate 3 ML TID 03/05 1400 AC 03/08 INH 0902 Albuterol Sulfate 2 PUF Q4-6 PRN PRN 03/05 1100 AC 03/08 INH 0837 Amiodarone HCl 200 MG DAILY 03/05 1315 AC 03/08 PO 0832 Apixaban 5 MG BID 03/05 0923 AC 03/08 PO 0833 Atorvastatin Calcium 10 MG DAILY 03/05 1058 AC 03/08 PO 0834 Carvedilol 25 MG BID 03/05 1058 AC 03/08 PO 0833 Furosemide 40 MG DAILY 03/09 0900 AC PO Furosemide 40 MG DAILY 03/06 0900 DC 03/08 IV 0835 Gabapentin 400 MG TID 03/05 1400 AC 03/08 PO 0834 Guaifenesin/ 10 ML ONCE ONE 03/08 0545 DC Dextromethorphan PO 03/08 0546 Hydromorphone HCl 2 MG Q6P PRN 03/05 2000 AC 03/05 PO 2129 Hydroxyzine HCl 100 MG BID 03/05 1349 AC 03/08 PO 0832 Insulin Aspart 0 TIDAC 03/05 1200 AC 03/08 SC 1150 Losartan Potassium 25 MG DAILY 03/07 0900 AC 03/08 PO 0833 Montelukast Sodium 10 MG DAILY 03/05 1059 AC 03/08 PO 0834 Oxycodone/ 2 TAB Q4P PRN 03/05 2015 AC 03/08 Acetaminophen PO 1108 Oxymetazoline HCl 2 SPRAY BID PRN 03/05 1100 AC JOAQUIN Results Last 48 Hrs of Labs/Mics: Laboratory Tests 03/07/18 0340: Anion Gap 8, Estimated GFR > 60, BUN/Creatinine Ratio 14.2, Magnesium 1.8, CBC w Diff NO MAN DIFF REQ, RBC 3.99 L, MCV 86.4, MCH 27.4, MCHC 31.6 L, RDW 15.2 H , MPV 6.6 L, Gran % 58.8, Lymphocytes % 28.7, Monocytes % 10.4 H, Eosinophils % 1.8, Basophils % 0.3, Absolute Granulocytes 3.9, Absolute Lymphocytes 1.9, Absolute Monocytes 0.7 H, Absolute Eosinophils 0.1, Absolute Basophils 0 Microbiology 03/06 2040 LOWER RESP: Respiratory Culture - COMP 03/06 2040 LOWER RESP: Gram Stain - COMP Assessment/Plan Assessment/Plan 1. Palpitations with history of prior paroxysmal atrial fibrillation 2. Worsening lower extremity edema with weeping unroofed blisters left lower extremity 3. Cardiomyopathy, nonischemic, with ejection fraction of 25-30% 4. History of indwelling pacemaker/defibrillator with biventricular pacing 5. Obesity 6. COPD on home oxygen 7. Sleep apnea, untreated 8. Diabetes Plan: * Change Lasix to 40 mg p.o. twice daily * Continue other cardiac medications * Follow up with Dr. George in 1 week after discharge. Continue telemetry? Yes
[2018-03-08 14:13] VITALS: BP 110/65
== END 2018-03-08 18:58 ==
LOC: ERH 06:06 → ERHI 07:00 → 2NA 07:00 → ENRESERV 09:01 → ENTRNSPT 09:48 → EDTRNSPTSTS 10:01 → EDTRNSPT 10:01 → 1NO 10:33 → CMPTRNSPT 10:46 → ENTRNSPT 03-07 17:37 → 2NA 03-07 17:57 → EDTRNSPTSTS 03-07 18:00 → CMPTRNSPT 03-07 18:04 → 2NA 03-08 07:50 → ENPENDDIS 03-08 13:26 → ENTRNSPT 03-08 18:44 → EDTRNSPTSTS 03-08 18:48 → CMPTRNSPT 03-08 18:51 → 2NA 03-08 18:58
PROVIDERS: Dermatology; Emergency Medicine; Student in an Organized Health Care Education/Training Program
DX: I13.0 Hypertensive heart and chronic kidney disease with heart failure and stage 1 through stage 4 chronic kidney disease, or unspecified chronic kidney disease (principal); I50.23 Acute on chronic systolic (congestive) heart failure; N18.9 Chronic kidney disease, unspecified; E11.22 Type 2 diabetes mellitus with diabetic chronic kidney disease; Z79.84 Long term (current) use of oral hypoglycemic drugs; I25.10 Atherosclerotic heart disease of native coronary artery without angina pectoris; R00.2 Palpitations; E66.9 Obesity, unspecified; G47.30 Sleep apnea, unspecified; D64.9 Anemia, unspecified; M06.9 Rheumatoid arthritis, unspecified; N40.0 Benign prostatic hyperplasia without lower urinary tract symptoms; I87.8 Other specified disorders of veins; I07.1 Rheumatic tricuspid insufficiency; I42.9 Cardiomyopathy, unspecified; Z95.0 Presence of cardiac pacemaker; J44.9 Chronic obstructive pulmonary disease, unspecified; Z99.81 Dependence on supplemental oxygen; E78.5 Hyperlipidemia, unspecified; M10.9 Gout, unspecified; I48.0 Paroxysmal atrial fibrillation; Z79.4 Long term (current) use of insulin
CPT/HCPCS: 1263; 1328; 1530; 1748; 36415; 36592; 71045; 82436; 87070; 93005; 93010; 96374; G0378; J1940; J3490

== ENCOUNTER 2018-04-03 17:51 | Inpatient (IN) | payer OTHER, MEDICARE ==
[~2018-04-03] VITALS: Ht 182.9 cm; Wt 166.1 kg
[~2018-04-03 17:51] MED LIST changes: +LOSARTAN POTASS25 M1 PO
--- NOTE | 2018-04-03 18:29 | ED CARDIAC/CP/PALPITATIONS ---
History of Present Illness General Chief Complaint: Chest Pain Stated Complaint: DIFF BREATHING/CHEST PAIN Source: patient, old records Exam Limitations: no limitations Allergies Coded Allergies: No Known Allergies (01/08/18) Triage Note: PT PRESENTS TO THE ER WITH SAT OF 88% ON RA. PT WAS BROUGHT TO [facility] FOR 02 AND EKG. PT C/O PAIN IN HIS CHEST AND DIFF BREATHING.. PT STATES THAT HIS LEFT ARM IS NUMB AND PT STATES THAT HIS BLE ARE SWOLLEN. Triage Nurses Notes Reviewed? yes Onset: Abrupt Duration: minute(s): (FEW), day(s):, constant Timing: recent history Radiation: no radiation HPI: 63-year-old male comes into the emergency room for further evaluation of chest pain shortness of breath. Symptoms been going on for the past few days. Patient has a very complex medical history with congestive heart failure coronary disease. He has a defibrillator pacemaker in place. He is on 4 L of oxygen normally within EF of 30%. Some associated chills. Associated cough with mucus production. Nothing seems to make the symptoms better. Comes in for further evaluation. (Eric Rasheed) Vital Signs & Intake/Output Vital Signs & Intake/Output Vital Signs Date Time Temp Pulse Resp B/P B/P Pulse O2 O2 Flow FiO2 Mean Ox Delivery Rate 04/05 1416 98.2 74 20 124/80 94 Nasal Cannula 04/05 0932 96 Nasal 3.5L Cannula 04/05 0903 120/74 04/05 0903 120/74 04/05 0903 120/74 04/05 0800 Nasal 3.5L Cannula 04/05 0704 98.0 76 20 120/74 96 Nasal Cannula 04/05 0000 Nasal 4.0L Cannula 04/04 2207 97.8 76 22 136/80 96 Nasal Cannula 04/04 2125 74 140/78 ED Intake and Output 04/05 0000 04/04 1200 Intake Total 880 400 Output Total 1735 Balance -855 400 Intake, Oral 880 400 Output, Urine 1735 Patient 375 lb Weight Weight Reported by Patient Measurement Method (Teofilo Lopes) Reconcile Medications Acetaminophen 500 MG TABLET 1 TAB PO DAILY PRN PAIN PLEASE ALTERNATE WITH NAPROXEN FOR PAIN Albuterol Sulfate (Proair Hfa) 90 MCG HFA.AER.AD 2 PUF INH Q4-6 PRN PRN COPD (Reported) Amiodarone (Cordarone) 200 MG TAB 1 TAB PO DAILY HEART RATE Ammonium Lactate 12 % CREAM..G. 12 % TP BID foot fissures . Apixaban (Eliquis) 5 MG TABLET 1 TAB PO BID AFIB Atorvastatin Calcium 10 MG TABLET 1 TAB PO DAILY CHOLESTEROL Carvedilol (Coreg) 25 MG TABLET 0.5 TAB PO BID HIGH BLOOD PRESSURE (Reported) Dicyclomine HCl 10 MG CAPSULE 1 CAP PO TID ABDOMINAL PAIN Febuxostat (Uloric) 40 MG TABLET 40 MG PO DAILY Gout Ferrous Sulfate 325 MG (65 MG IRON) TABLET 1 TAB PO DAILY anemia Fluticasone/Salmeterol (Advair 500-50 Diskus) 500 MCG-50 MCG/DOSE BLST.W.DEV 1 PUF INH BID COPD (Reported) Furosemide (Lasix) 40 MG TABLET 40 MG PO BID Fluid Overload Gabapentin 400 MG CAPSULE 1 CAP PO TID NEUROPATHY (Reported) Glimepiride 1 MG TABLET 1 TAB PO BID DM (Reported) Guaifenesin (Guaifenesin ER) 600 MG TAB.ER.12H 1 TAB PO BID CONGSETION Hydroxyzine Hydrochloride (Atarax) 50 MG TABLET 2 TAB PO BID MUCUS (Reported) Ipratropium/Albuterol Sulfate (Combivent Respimat Inhal Rosenberg) 20 MCG-100 MCG/ ACTUATION MIST.INHAL 2 PUFF INH BID copd (Reported) Losartan Potassium 25 MG TABLET 25 MG PO DAILY heart health . Metformin HCl (Glucophage) 1,000 MG TABLET 1 TAB PO BID DM (Reported) Montelukast Sodium (Singulair) 10 MG TABLET 1 TAB PO BID copd (Reported) Oxymetazoline HCl (Nasal Decongestant) 0.05 % SPRAY 2 SPRAY JOAQUIN BID PRN NASAL CONGESTION Umeclidinium Kathleen (Incruse Ellipta) 62.5 MCG/ACTUATION BLST.W.DEV 1 PUFF INH DAILY COPD (Reported) (Patrick Banuelos DO) Past History Travel History Traveled to [place] past 21 day No Medical History Any Pertinent Medical History? see below for history Neurological: NONE EENT: NONE Cardiovascular: AFIB, CAD, cardiomyopathy, CHF, chronic venous insuff, hyperlipidemia, CARDIAC ARREST S/P [facility] PACER with DEFIB Respiratory: COPD, SLEEP APNEA O2 3.5L NC @ [facility] Gastrointestinal: constipation, peptic ulcer disease, EGD 08/10 showed numerous gastric and duodenal ulcers Hepatic: NONE Renal: benign prost hyperplasia, TEMPORORY DIALYSIS Musculoskeletal: gout, rheumatoid arthritis Psychiatric: NONE Endocrine: diabetes Blood Disorders: anemia Cancer(s): NONE SERVICES ENGINEER/Reproductive: NONE History of MRSA: Yes History of VRE: No History of CDIFF: No Surgical History Surgical History: Left orchiectomy 20+ yrs ago pacemaker August 2016 right knee cartilage removal Psychosocial History Who do you live with Other (see notes) Services at Home Oxygen What is your primary language Occitan Tobacco Use: Never used Family History Family History, If Any: FATHER Alzheimer's disease FHx: heart disease MOTHER, ; Cause: Heart disease. Hx Contributory? No (Eric Rasheed) Review of Systems Review of Systems Constitutional: Reports: no symptoms. EENTM: Reports: no symptoms. Respiratory: Reports: see HPI. Cardiovascular: Reports: see HPI. GI: Reports: no symptoms. Genitourinary: Reports: no symptoms. Musculoskeletal: Reports: no symptoms. Skin: Reports: no symptoms. Neurological/Psychological: Reports: no symptoms. Hematologic/Endocrine: Reports: no symptoms. Immunologic/Allergic: Reports: no symptoms. All Other Systems: Reviewed and Negative (Eric Rasheed) Physical Exam Physical Exam General Appearance: alert, awake, moderate distress, intoxicated Head: atraumatic Eyes: Bilateral: normal appearance. Ears, Nose, Throat: normal ENT inspection, hearing grossly normal Neck: normal inspection Respiratory: normal breath sounds, no respiratory distress Cardiovascular: regular rate/rhythm Back: normal inspection Neurologic/Psych: awake, alert, oriented x 3 Skin: intact, normal color Core Measures ACS in differential dx? Yes CVA/TIA Diagnosis No Sepsis Present: No Sepsis Focused Exam Completed? No (Eric Rasheed) Progress Differential Diagnosis: AMI, aortic dissection, atrial fibrillation, cholecystitis, CHF/pulm edema, pancreatitis, pericarditis, pneumonia, pneumothorax, PSVT, pulmonary embolism, PUD/GERD Diagnostic Imaging: Viewed by Me: Radiology Read. Discussed w/RAD: Radiology Read. Radiology Impression: PATIENT: SUZETTE GRIGSBY PRESENT AGE: 63 PATIENT ACCOUNT NO: [id number] : 57 LOCATION: [facility], [place] ORDERING PHYSICIAN: Eric ESPINOZA SERVICE DATE: 04/03/18 EXAM TYPE : RAD - XRY-PORTABLE CHEST XRAY EXAMINATION: XR PORTABLE CHEST CLINICAL INFORMATION: Chest pain and shortness of breath. COMPARISON: Chest radiograph . TECHNIQUE: Portable frontal view of the chest was obtained. FINDINGS: The cardiac silhouette is unchanged and is mildly prominent, even given AP technique. Stable positioning of dual lead left-sided ICD. There is minimal focal opacity of the right lower lung field which is nonspecific. Pulmonary vasculature is not enlarged. No acute osseous finding. IMPRESSION: Mild right lower lung field airspace opacity, nonspecific. This may represent atelectasis or early pneumonia. DICTATED BY: Justus Tse MD DATE/TIME DICTATED:04/03/181928 VICE PRESIDENT OF MARKETING:FRED DATE/TIME TRANSCRIBED:04/03/181928 CONFIDENTIAL, DO NOT COPY WITHOUT APPROPRIATE AUTHORIZATION. <Electronically signed in Other Vendor System> SIGNED BY: Justus Tse MD 04/03/181933 Initial ED EKG: normal sinus rhythm, rate (77) (Derik ESPINOZA,Eric) Plan of Care: Orders Procedure Date/time Status MAGNESIUM 04/06 600 Active BASIC ELECTROLYTES PLUS BUN&CR 04/06 600 Active Change service to 04/05 921 Active Change service to 04/05 0837 Active OXYGEN SETUP CHG 04/04 UNK Complete AEROSOL CHG 04/04 UNK Complete OXYGEN 04/04 UNK Complete OXYGEN TRANSPORT 04/04 UNK Complete Current Medications Sig/Keaton Start time Last Medication Dose Stop Time Status Admin Prednisone 10 MG DAILY 04/07 900 AC 04/07 901 Prednisone 20 MG DAILY 04/06 900 AC 04/06 09 Ibuprofen 800 MG Q6P PRN 04/05 1100 AC 04/05 (Motrin) 1108 Hydroxyzine HCl 100 MG BID 04/05 900 AC 04/05 (Atarax) 09 Acetaminophen 650 MG ONCE ONE 04/05 0415 CAN (Tylenol) 04/05 041 Atorvastatin Calcium 10 MG 2100 04/04 2100 AC 04/04 (Lipitor) 2124 Albuterol Sulfate 3 ML TID 04/04 900 AC 04/05 (Proventil) 1406 Amiodarone HCl 200 MG DAILY 04/04 09 AC 04/05 (Cordarone) 0903 Ferrous Sulfate 325 MG DAILY 04/04 09 AC 04/05 (Feosol) 09 Gabapentin 400 MG TID 04/04 900 AC 04/05 (Neurontin) 170 Ipratropium Kathleen 2.5 ML TID 04/04 900 AC 04/05 (Atrovent) 1406 Losartan Potassium 25 MG DAILY 04/04 09 AC 04/05 (Cozaar) 09 Montelukast Sodium 10 MG BID 04/04 900 AC 04/05 (Singulair) 09 Insulin Aspart 0 TIDAC 04/04 08 AC 04/05 (NovoLOG) 170 Furosemide 60 MG 7:30 AM, & 4:30 PM 04/04 0730 AC 04/05 (Lasix) 170 Apixaban 5 MG BID 04/04 100 AC 04/05 (Eliquis) 09 Carvedilol 12.5 MG BID 04/04 100 AC 04/05 (Coreg) 09 Laboratory Tests 04/05/18 0614: Anion Gap 12, Estimated GFR 56 L, BUN/Creatinine Ratio 16.9, CBC w Diff NO MAN DIFF REQ, RBC 4.67 L, MCV 85.6, MCH 27.3, MCHC 31.9 L, RDW 15.9 H, MPV 7.2 L , Gran % 63.3, Lymphocytes % 25.7, Monocytes % 9.6 H, Eosinophils % 1.1, Basophils % 0.3, Absolute Granulocytes 5.1, Absolute Lymphocytes 2.1, Absolute Monocytes 0.8 H, Absolute Eosinophils 0.1, Absolute Basophils 0 Patient was signed out to me by ALEXIS More pending a CT scan to rule out pneumonia. CT of the chest shows pneumonitis versus pulmonary edema. Patient is reporting chest pain or shortness of breath. He states the past couple days has been chest pain radiating to his left arm. The symptoms are worse on exertion. Patient's BNP is elevated. He does not have a white count is afebrile. Patient will be admitted to the hospital for further evaluation and treatment of possible CHF exacerbation as well as possible pneumonia. Case discussed with Dr. Banuelos he agrees. (Rivas ESPINOZA,Teofilo) Departure Departure Condition: Stable Referrals: Carlee Mooney APRN (PCP/Family) Departure Forms: Customer Survey General Discharge Information (Eric Rasheed) Departure Disposition: STILL A PATIENT Clinical Impression Primary Impression: CHF exacerbation Qualifiers: Heart failure type: unspecified Qualified Code: I50.9 - Heart failure, unspecified (Teofilo Lopes) Admission Note Spoke With: Robinson Handley MD Documentation of Exam: Documentation of any treatments & extenuating circumstances including Concerns Regarding Discharge (functional status, medication knowledge or non-compliance, living conditions, etc.) that warrant an admission rather than observation: [The patient needs admission for serial troponins, telemetry monitoring, cardiology consultation, IV diuresis. The patient is homeless and is supposed to be on oxygen. He is having intermittent chest pain with left arm numbness at rest.] PA/HOTEL ASSOCIATE Co-Sign Statement Statement: ED Attending supervision documentation- [X] I saw and evaluated the patient. I have also reviewed all the pertinent lab results and diagnostic results. I agree with the findings and the plan of care as documented in the PA's/HOTEL ASSOCIATE's documentation. [] I have reviewed the ED Record and agree with the PA's/HOTEL ASSOCIATE's documentation. [] Additions or exceptions (if any) to the PAs/HOTEL ASSOCIATE's note and plan are summarized below: [] (Patrick Banuelos DO) Critical Care Note Critical Care Note Critical Care Time: non-applicable (Teofilo Lopes) Critical Care Time: non-applicable (Teofilo Lopes)
[2018-04-03 18:48] LABS: ABSOLUTE BASOPHIL COUNT 0.1 /CUMM (0.0-0.2); ABSOLUTE EOSINOPHIL COUNT 0.1 /CUMM (0.0-0.7); ABSOLUTE GRANULOCYTE CT 5.5 /CUMM (1.4-6.5); ABSOLUTE LYMPH COUNT 2.2 /CUMM (1.2-3.4); ABSOLUTE MONOCYTE COUNT 0.7 /CUMM (0.10-0.60); BASOPHIL % 0.7 % (0.0-2.0); EOSINOPHIL % 1.6 % (0-5); GRANULOCYTE % 64.1 % (42.2-75.2); HEMATOCRIT 37.8 % (42-52); MEAN CORPUSCULAR HGB 27.1 PG (27.0-31.0); MEAN CORPUSCULAR HGB CONC 32.1 G/DL (33.0-37.0); MEAN CORPUSCULAR VOLUME 84.4 FL (80.0-94.0); MEAN PLATELET VOLUME 6.9 FL (7.4-10.4); PLATELET COUNT 188 /CUMM (130-400); RBC DISTRIBUTION WIDTH 15.6 % (11.5-14.5); RED BLOOD CELL CT 4.47 /CUMM (4.70-6.10); WHITE BLOOD CELL COUNT 8.6 /CUMM (4.8-10.8)
--- NOTE | 2018-04-03 19:34 | RADIOLOGY REPORT ---
EXAMINATION: XR PORTABLE CHEST CLINICAL INFORMATION: Chest pain and shortness of breath. COMPARISON: Chest radiograph 02/18/2018. TECHNIQUE: Portable frontal view of the chest was obtained. FINDINGS: The cardiac silhouette is unchanged and is mildly prominent, even given AP technique. Stable positioning of dual lead left-sided ICD. There is minimal focal opacity of the right lower lung field which is nonspecific. Pulmonary vasculature is not enlarged. No acute osseous finding. IMPRESSION: Mild right lower lung field airspace opacity, nonspecific. This may represent atelectasis or early pneumonia.
--- NOTE | 2018-04-03 21:03 | CT SCAN REPORT ---
EXAMINATION: CT CHEST WITHOUT CONTRAST CLINICAL INFORMATION: Shortness of breath. COMPARISON: Chest radiography earlier today. CTA chest 02/13/2018. TECHNIQUE: Multidetector volumetric CT imaging of the chest was done. Axial MIP volume rendering provided. Sagittal and coronal reformatted images were obtained. DLP: 1082 mGy-cm FINDINGS: LUNGS: There is mild intralobular pulmonary septal thickening bilaterally. Subtle patchy airspace opacification in the right perihilar upper lobe. Linear opacification in the anterior aspect of the right upper lobe and medial aspect of the right middle lobe consistent with subsegmental atelectasis. There are a few tiny calcified granulomata. MEDIASTINUM: The heart is enlarged. Left pectoral cardiac device with leads terminating in the right heart and coronary sinus. No mediastinal adenopathy. The trachea and central airways are patent. PLEURA: No significant pleural effusion. AXILLA: No lymphadenopathy. UPPER ABDOMEN: No acute intra-abdominal abnormalities. Borderline splenomegaly. Lobulated right renal contour. OSSEOUS STRUCTURES: No acute osseous abnormalities. Mild degenerative changes of the spine. IMPRESSION: 1. Mild intralobular pulmonary septal thickening and patchy airspace opacification in the right perihilar upper lobe. Findings may represent sequela of mild pulmonary edema or pneumonitis. 2. Findings consistent with subsegmental atelectasis in the right upper and middle lobes anteriorly. 3. Cardiomegaly.
--- NOTE | 2018-04-03 22:45 | History & Physical ---
Cora Lovell MD,[facility] 04/03/18 3235: General Information and HPI MD Statement: I have seen and personally examined SUZETTE GRIGSBY SR and documented this H&P. The patient is a 63 year old M who presented with a patient stated chief complaint of [SOB]. Source of Information: patient, old records Exam Limitations: no limitations History of Present Illness: Patient is 63 Y M with PMH of morbede obesity, HFrEF (25-30%) nonischemic cardiomyopathy s/p dual chamber PPM/AICD 9h/o cardiac arrest), afib (on eliquise ), COPD (on 4 L baseline o2), JORY (not on CPAP), DM, CKD, HLD, GERD/PUD, chronic lower extremity edema with venous stasis changes, gout s/p left foot debridement , and multiple admissions for dyspnea secondary to COPD/CHF exacerbation presented to the ED with CC of SOB and chest pain. Patiemt noted that for the last few days he had increased SOB, increased cough which was associated with small amount of sputum. His shortness of breating happened with minimal activity. Patient lives in his truck, non complaint with CPAP, but has his nebulizer which minimally helped with his SOB. She also complained of pressure like chest pain, which is 10/10, and increased with cough and deep breathing. he noted this pain is associated with numbness of left arm at times, but no change with activity. He also complained of increaed bilateral LE edema. He was supposed to follow with Dr Geogre after his discharge but never had chance to. He was also referred for venous closing procedure, which he had and follows. He noted [facility] to his venous closure procedurs. He also follows Dr Puente for his wound care. patient drinks 1.5 gal of fluids everyday. Patient was last admitted to in 02/10 with Afib with RVR was administered amiodaron and heparin drip and underwent cardioversion/interogetaion of ICD. Echo from last admission revealed EF of 25-30%. Patient was also placed under observation in tele floor in February 2018 for increased LE edema, and was discharged after adjusting the lasix dose. Allergies/Medications Allergies: Coded Allergies: No Known Allergies (01/08/18) Past History Travel History Traveled to [place] past 21 day No Medical History Neurological: NONE EENT: NONE Cardiovascular: AFIB, CAD, cardiomyopathy, CHF, chronic venous insuff, hyperlipidemia, CARDIAC ARREST S/P LWC PACER with DEFIB Respiratory: COPD, SLEEP APNEA O2 3.5L NC @ BASELINE Gastrointestinal: constipation, peptic ulcer disease, EGD 08/10 showed numerous gastric and duodenal ulcers Hepatic: NONE Renal: benign prost hyperplasia, TEMPORORY DIALYSIS Musculoskeletal: gout, rheumatoid arthritis Psychiatric: NONE Endocrine: diabetes Blood Disorders: anemia Cancer(s): NONE 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 Psychosocial History Who Do You Live With? self Services at Home: Oxygen Primary Language: French Functional Ability ADLs Independent: dressing, eating, toileting, bathing. Ambulation: independent IADLs Independent: shopping, housework, finances, food prep, telephone, transportation , medication admin. Review of Systems Review of Systems Constitutional: Reports: see HPI. Exam & Diagnostic Data Last 24 Hrs of Vital Signs/I&O Vital Signs Date Time Temp Pulse Resp B/P B/P Pulse O2 O2 Flow FiO2 Mean Ox Delivery Rate 04/04 0030 97.8 75 20 138/92 96 Nasal 4.0L Cannula 04/03 2317 Nasal 4.0L Cannula 04/03 2146 98.4 77 20 153/95 97 Nasal 4.0L Cannula 04/03 1824 96 Nasal 2.0L Cannula 04/03 1812 97.4 75 24 143/89 96 Nasal 4.0L Cannula Intake & Output 04/04 0800 04/04 0000 04/03 1600 Intake Total 120 Output Total Balance 120 Intake, Oral 120 Patient 375 lb Weight Weight Reported by Patient Measurement Method Physical Exam General Appearance Alert, Oriented X3, Cooperative, Mild Distress, obese Skin bilateral LE edema, skin changes, wrapping in place Skin Temp/Moisture Exam: Warm/Dry Sepsis Skin Exam (color): Normal for Ethnicity HEENT Atraumatic, EOMI Cardiovascular Regular Rate, Normal S1, Normal S2 Lungs bilateral crackles and ronchi Abdomen Soft, No Tenderness, obese Neurological Strength at 5/5 X4 Ext, Cranial Nerves 3-12 NL Extremities skin as noted above, bilateral +3 edema, dilated veins Last 24 Hrs of Labs/Joaquim: Laboratory Tests 04/04/18 0100: Troponin I Pending 04/03/18 1835: Anion Gap 10, Estimated GFR > 60, BUN/Creatinine Ratio 14.2, Glucose 102 H, Calcium 9.0, Total Bilirubin 1.1, AST 25, ALT 11 L, Alkaline Phosphatase 78, Troponin I 0.05, Wmg-L-Qeblspwnsmj Pept 4770 H, Total Protein 7.0, Albumin 3.5, Globulin 3.5, Albumin/Globulin Ratio 1.0 L, D-Dimer High Sensitivty 228, CBC w Diff NO MAN DIFF REQ, RBC 4.47 L, MCV 84.4, MCH 27.1, MCHC 32.1 L, RDW 15.6 H , MPV 6.9 L, Gran % 64.1, Lymphocytes % 25.6, Monocytes % 8.0, Eosinophils % 1.6, Basophils % 0.7, Absolute Granulocytes 5.5, Absolute Lymphocytes 2.2, Absolute Monocytes 0.7 H, Absolute Eosinophils 0.1, Absolute Basophils 0.1 04/03/18 1831: Wri-P-Yqltkctwzuz Pept Cancelled Assessment/Plan Assessment: Patient is 63 Y M presented with increased SOB increased cough and small sputum chest pain with cough and deep breathing increased bilateral LE swelling PMH of morbede obesity, HFrEF (25-30%) nonischemic cardiomyopathy s/p dual chamber PPM/AICD 9h/o cardiac arrest), afib (on eliquise), COPD (on 4 L baseline o2), JORY (not on CPAP), DM, CKD, HLD, GERD/PUD, chronic lower extremity edema with venous stasis changes, gout s/p left foot debridement, and multiple admissions for dyspnea secondary to COPD/CHF exacerbation VS, Ph Ex at admission: Saturating well on 4L NC, BP 153/95, RR 24, SC 75 Labs at admission: Hgb 12.1, WBC 8.6 Bicarbonate 36, proBNP 4770, otherwise insignificant, d-dimer 328 Imagings at admission: CXR: Mild right lower lung field airspace opacity, nonspecific. This may represent atelectasis or early pneumonia. Chest CT: 1. Mild intralobular pulmonary septal thickening and patchy airspace opacification in the right perihilar upper lobe. Findings may represent sequela of mild pulmonary edema or pneumonitis. 2. Findings consistent with subsegmental atelectasis in the right upper and middle lobes anteriorly. 3. Cardiomegaly. Patient was admitted to telemetry floor for management of following conditions: Chest pain most likely noncardiac, will rule out ACS Respiratory distress 2/2 acute exacerbation of CHF more likely COPD exacerb (increased ProBNP, no WBC count, small sputum) Increased swelling - admit to tele floor - cardiac, vital sign montior - puls ox, oxyen - follow Tn and EKG - patient recieved IV lasix in ED, lasix IV 20mg X1 - short taper Prednisonol, 40mg tonight, considering increased sputum - no echo for now - TRC nebs, chest PT - Cardio consult in AM, Dr George - Dr Puente consult, wound and chest - Fluid restriction diet, patient drinks 1.5 gallon fluids evry day - consider patient had history of CKD FC DVT ppx: pharmacological on eliquise, alps Diabetic diet, Fluid restriction 1500cc As Ranked By This Provider Problem List: 1. CHF exacerbation Core Measures/Misc (07/12) Acute Coronary Syndrome ACS Diagnosis: No Congestive Heart Failure Congestive Heart Failure Diagnosis Yes Last Known EF % 30 Cerebrovascular Accident CVA/TIA Diagnosis: No (will rule out) VTE (View Protocol) VTE Risk Factors Age>40 No Mechanical VTE Prophylaxis d/t N/A MechProphylax Ordered No VTE Pharm Prophylaxis d/t NA PharmProphylax ordered Sepsis (View protocol) Sepsis Present: No If YES complete Sepsis Event Note If YES complete Sepsis Event Note Julia Morrell 04/03/18 3724: General Information and HPI Allergies/Medications Home Med list Acetaminophen 500 MG TABLET 1 TAB PO DAILY PRN PAIN PLEASE ALTERNATE WITH NAPROXEN FOR PAIN Albuterol Sulfate (Proair Hfa) 90 MCG HFA.AER.AD 2 PUF INH Q4-6 PRN PRN COPD (Reported) Amiodarone (Cordarone) 200 MG TAB 1 TAB PO DAILY HEART RATE Ammonium Lactate 12 % CREAM..G. 12 % TP BID foot fissures . Apixaban (Eliquis) 5 MG TABLET 1 TAB PO BID AFIB Atorvastatin Calcium 10 MG TABLET 1 TAB PO DAILY CHOLESTEROL Carvedilol (Coreg) 25 MG TABLET 0.5 TAB PO BID HIGH BLOOD PRESSURE (Reported) Dicyclomine HCl 10 MG CAPSULE 1 CAP PO TID ABDOMINAL PAIN Febuxostat (Uloric) 40 MG TABLET 40 MG PO DAILY Gout Ferrous Sulfate 325 MG (65 MG IRON) TABLET 1 TAB PO DAILY anemia Fluticasone/Salmeterol (Advair 500-50 Diskus) 500 MCG-50 MCG/DOSE BLST.W.DEV 1 PUF INH BID COPD (Reported) Furosemide (Lasix) 40 MG TABLET 40 MG PO BID Fluid Overload Gabapentin 400 MG CAPSULE 1 CAP PO TID NEUROPATHY (Reported) Glimepiride 1 MG TABLET 1 TAB PO BID DM (Reported) Guaifenesin (Guaifenesin ER) 600 MG TAB.ER.12H 1 TAB PO BID CONGSETION Hydroxyzine Hydrochloride (Atarax) 50 MG TABLET 2 TAB PO BID MUCUS (Reported) Ipratropium/Albuterol Sulfate (Combivent Respimat Inhal Simpson) 20 MCG-100 MCG/ ACTUATION MIST.INHAL 2 PUFF INH BID copd (Reported) Losartan Potassium 25 MG TABLET 25 MG PO DAILY heart health . Metformin HCl (Glucophage) 1,000 MG TABLET 1 TAB PO BID DM (Reported) Montelukast Sodium (Singulair) 10 MG TABLET 1 TAB PO BID copd (Reported) Oxymetazoline HCl (Nasal Decongestant) 0.05 % SPRAY 2 SPRAY JOAQUIN BID PRN NASAL CONGESTION Umeclidinium [place] (Incruse Ellipta) 62.5 MCG/ACTUATION BLST.W.DEV 1 PUFF INH DAILY COPD (Reported) Core Measures/Misc (07/12) Sepsis (View protocol) If YES complete Sepsis Event Note If YES complete Sepsis Event Note Resident Review Statement Resident Statement: examined this patient, discussed with agriculture internship, agreed with agriculture internship Other Findings: This is a 63-year-old morbidly obese male with past medical history of heart failure with reduced ejection fraction (25-30%),ischemic cardiomyopathy (status post pacemaker/defibrillator with biventricular pacing), COPD on 3.5 L of home oxygen, diabetes mellitus, hypertension, morbid obesity, obstructive sleep apnea on CPAP (not using it) ,CKD, GERD, gout s/p left foot debridement , chronic venous insufficiency, multiple previous admissions for COPD/CHF exacerbation presented to [facility] today with chief complaint of worsening shortness of breath and chest pain since 3-4 days prior to admission. He notes that since past few days he has had increasing shortness of breath associated with exertion, and he now became short of breath with even getting up and walking up to the restroom. He also complains of chest pain, which has been constant since last 3-4 days, 10 out of 10, worse with deep breathing or coughing associated with numbness of the left arm since last few days. He states that he has also noted worsening bilateral lower extremity edema. He was supposed to follow up with the CHF clinic however he has not been very compliant with it, as he has been going to [place] on multiple locations for venous closing procedure and therefore has not been able to keep up with the CHF clinic. He also notes that he drinks 1.5-2 gallons of water every day. He was recently admitted in January 2018 for treatment of atrial fibrillation with rapid ventricular rate. His vitals on presentation were temperature of 97.4, pulse of 75, respiration of 24, blood pressure 143/89, he was saturating 96% 4 L of nasal cannula. He was alert oriented 3 cooperative and in mild distress due to shortness of breath. He was taking narrow shallow breaths. Bilateral lower extremity edema present until the thigh. Lungs right bilateral crackles and rhonchi. Cardiovascular regular rate, normal S1-S2. Per abdomen soft, nontender, obese. Relevant labs white count of 9.6, H/H of 12.1/37.8, platelets of 199. Sodium of 144, potassium 4.4, BUN/creatinine 17/1.2, proBNP of 4770,glucose of 102. Chest x-ray showed mild right lower field airspace opacity, nonspecific. CT chest showed mild intralobular pulmonary septal thickening and patchy airspace opacification in the right perihilar upper lobe, possibly representing sequelae of mild pulmonary edema or pneumonitis along with findings consistent with subsegmental atelectasis in the right upper and middle lobes anteriorly along with cardiomegaly. EKG showed NSR, RBBB, Qtc 508, no acute st-t wave changes. We will admit the patient to telemetry for further treatment of following problems. Problem #1 heart failure with reduced ejection fraction. * Continue to monitor the patient on telemetry, continue to monitor intake and output, continue to monitor daily weight, continue supplemental oxygen to maintain saturations above 92%, patient received 1 time of 20 mg of IV Lasix in the emergency department, will give additional 20 mg of IV Lasix, cardiology consult (Dr. 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 * Avoid high solute/salt intake, the need to monitor electrolytes while on Lasix. * Please note patient's home dose of Lasix is 40 p.o. twice daily. #2 COPD exacerbation. * Even though the patient is not wheezing on lung exam, CAT scan results along with recent sputum production, and changes in symptoms as seasonal variation due to weather change, we will consider a short p.o. prednisone taper starting with 40 mg today, 30, 20 and then 10, pulm consult in am. * We will hold off antibiotic for now, sputum culture, blood cultures, TRC nebulization, incentive spirometry, chest physical therapy, continue home inhalers, continue Singulair (even though it is a daily medication, he takes it twice daily) # 3. Diabetes mellitus. * Continue to monitor fingerstick, hold off all oral diabetic medications, NovoLog sliding scale, consistent carbohydrate 3 diet, watch the sugars while on steroids, if needed adjust NovoLog sliding scale. #4 Hypertension. * Continue Coreg at 12.5 twice daily, continue losartan at 25 mg daily. * Ct to monitor blood pressure. #5 Diabetic neuropathy. * Continue Neurontin 400 mg 3 times daily. #6 history of atrial fibrillation. * Continue rate control with Coreg. * Continue anticoagulation with Eliquis. * Continue amiodarone 200 mg daily. Full code Pain management with Tylenol. Consistent carbohydrate 3 diet. DVT prophylaxis with Eliquis. Ender HARPER, [facility] 04/04/18 0321: Core Measures/Misc (07/12) Sepsis (View protocol) If YES complete Sepsis Event Note If YES complete Sepsis Event Note Attending MD Review Statement Attending Statement Attending MD Statement: examined this patient, discuss w/resident/PA/SEARCH MARKETING COORDINATOR, agreed w/resident/PA/SEARCH MARKETING COORDINATOR, reviewed images, amended to note Attending Assessment/Plan: 63 yo homeless male, has a h/o COPD on 3.5L O2, nonischemic dilated CMP with chronic systolic HF (EF 15-20%), s/p BiV PPM and defibrillator, Afib s/p cardioversion on eliquis, HTN, T2DM, CKD stage 3, JORY not using CPAP, chronic venous insufficiency, PAD, is here for evaluation of intermittent substernal chest pain, exertional dyspnea and left arm numbness for the past few days. Chest pain is worse with inspiration and coughing. He has a baseline chronic cough with minimal phlegm which he reports has gotten worse due to frequent weather changes. There is no change in amount of phlegm or color of the phlegm. He denies fever or chills, palpitations or lightheadedness. No orthopnea or PND. He reports the lower extremity edema has been the changed. He is supposed to visit the CHF clinic once every 2 weeks for IV lasix but has not been there for over 2 months. He had a vein closure procedure one week ago at a Vascular office in [place], and is due for next on April 07. He is also supposed to visit the Wound center to get the Nancy boots. He lives out of his truck, eats burgers or salad with chicken being staple diet and drinks about 1.5 gallon of fluid everyday. He reports compliance with medications especially lasix. Vitals: afebrile, HR 70-80's, BP 138/92, sats 96% on 4 L. Exam: AAO, in no apparent distress, Neck supple, Chest b/l reduced air entry, with basilar crackles, no wheeze or rhonchi, Heart S1S2 regular, Abd soft, NT, LE: b/l edema, legs are wrapped up. Labs: CBC normal, bicarb 36, creat 1.2, glucose 102, trop 0.05, proBNP 4770. CXR: mild right lower lung field airspace opacity, nonspecific may represent atelectasis or early pneumonia. CT chest: mild intralobular pulmonary septal thickening and patchy airspace opacification in right perihilar upper lobe mild pulmonary edema or pneumonitis; subsegmental atelectasis right upper and middle lobes. Cardiomegaly. EKG: sinus rhythm, intraventricular conduction delay, RBBB, Qtc 508, no acute changes. Echo (2018): EF 25-30%, moderate left ventricular dilatation. Assessment and plan: 1. Substernal chest pain with left arm numbness rule out ACS 2. Dyspnea seems multifactorial with acute exacerbation of chronic systolic heart failure and bronchitis - mild COPD exacerbation. Underlying untreated JORY may be playing a role as well. No evidence of consolidation to suggest pneumonia , also patient is afebrile with no elevated WBC. 3. Paroxysmal Afib s/p cardioversion 4. Chronic hypoxic respiratory failure 5. Type 2 diabetes - Admit to Telemetry - Strict I/O's, daily weights - Monitor for arrhythmias - Consider pacemaker interoggation - Serial EKG and troponin - Cardio consult (Dr. George) - IV lasix 40 BID - Scheduled and PRN neb treatments - Incentive spirometry - Sputum culture - Rapid prednisone taper - No need for antibiotics - Wound and Pulm consult (Dr. Lainez) - Diabetes management, last A1c was 6.4. - Resume home meds losartan, singulair, advair, gabapentin, coreg, amiodarone, atorvastatin. DVT ppx Eliquis. Full code.
[2018-04-04] VITALS: BP 182/98
[2018-04-04 00:30] VITALS: BP 138/92
--- NOTE | 2018-04-04 01:38 | Admission Certification ---
Admission Certification Certification Statement - As attending physician, I certify that at the time of - admission, based on clinical presentation, severity of - symptoms, need for further diagnostic testing and - therapeutic interventions, and risk of adverse outcomes - without in-hospital treatment, in my clinical assessment, - this patient requires an acute hospital stay for a minimum - of two nights or longer. I have also considered psychsocial - factors such as support system, advanced age, financial - issues, cognitive issues, and failed out-patient treatments, - past re-admission history, safety of patient, and lack of - compliance as applicable. Specific rationale supporting this admission is: Acute on chronic systolic heart failure, pleuritic chest pain with mild COPD exacerbation.
[2018-04-04 05:55] VITALS: BP 130/78
[2018-04-04 07:19] LABS: ABSOLUTE BASOPHIL COUNT 0 /CUMM (0.0-0.2); ABSOLUTE EOSINOPHIL COUNT 0 /CUMM (0.0-0.7); ABSOLUTE GRANULOCYTE CT 4.8 /CUMM (1.4-6.5); ABSOLUTE LYMPH COUNT 0.8 /CUMM (1.2-3.4); ABSOLUTE MONOCYTE COUNT 0.2 /CUMM (0.10-0.60); BASOPHIL % 0.1 % (0.0-2.0); EOSINOPHIL % 0.3 % (0-5); GRANULOCYTE % 83.1 % (42.2-75.2); HEMATOCRIT 38.6 % (42-52); MEAN CORPUSCULAR HGB 27.3 PG (27.0-31.0); MEAN CORPUSCULAR HGB CONC 32.2 G/DL (33.0-37.0); MEAN CORPUSCULAR VOLUME 84.8 FL (80.0-94.0); PLATELET COUNT 164 /CUMM (130-400); RBC DISTRIBUTION WIDTH 15.4 % (11.5-14.5); RED BLOOD CELL CT 4.55 /CUMM (4.70-6.10); WHITE BLOOD CELL COUNT 5.8 /CUMM (4.8-10.8)
--- NOTE | 2018-04-04 08:56 | PN- Housestaff ---
See Addendum Subjective Follow-up For: Acute decompensated heart failure Tele-Events Since Last Visit: Sinus rhythm, 70s Subjective: No overnight events. Patient has some mild shortness of breath but no chest pain this morning. He otherwise feels better. Review of Systems Constitutional: Reports: no symptoms. EENTM: Reports: no symptoms. Cardiovascular: Reports: see HPI. Respiratory: Reports: no symptoms. Gastrointestinal: Reports: no symptoms. Genitourinary: Reports: no symptoms. Musculoskeletal: Reports: no symptoms. Skin: Reports: no symptoms. Neurological/Psychological: Reports: no symptoms. Hematologic/Endocrine: Reports: no symptoms. Immunologic/Allergic: Reports: no symptoms. Objective Last 24 Hrs of Vital Signs/I&O Vital Signs Date Time Temp Pulse Resp B/P B/P Pulse O2 O2 Flow FiO2 Mean Ox Delivery Rate 04/04 0555 97.7 74 22 130/78 95 04/04 0200 80 04/04 0100 96 Nasal 4.0L Cannula 04/04 0030 97.8 75 20 138/92 96 Nasal 4.0L Cannula 04/03 2317 Nasal 4.0L Cannula 04/03 2146 98.4 77 20 153/95 97 Nasal 4.0L Cannula 04/03 1824 96 Nasal 2.0L Cannula 04/03 1812 97.4 75 24 143/89 96 Nasal 4.0L Cannula Intake & Output 04/04 1600 04/04 0800 04/04 0000 Intake Total 400 120 Output Total Balance 400 120 Intake, Oral 400 120 Patient 170.097 kg 170.097 kg Weight Weight Reported by Patient Reported by Patient Measurement Method Physical Exam General Appearance: Alert, Oriented X3, Cooperative, No Acute Distress Cardiovascular: Regular Rate, Normal S1, Normal S2 Lungs: Clear to Auscultation Abdomen: Normal Bowel Sounds, Soft, No Tenderness Extremities: swellingh, wrapped Assessment/Plan Assessment: Patient is 63 Y M presented with increased SOB increased cough and small sputum chest pain with cough and deep breathing increased bilateral LE swelling Problem List: Chest pain most likely noncardiac, will rule out ACS Respiratory distress 2/2 acute exacerbation of CHF more likely COPD exacerb (increased ProBNP, no WBC count, small sputum) Increased swelling - cardiac, vital sign montior - puls ox, oxyen -Troponins and EKG 3 negative -Furosemide 60 mg IV twice daily -Prednisone taper - no echo for now - TRC nebs, chest PT -Appreciate wound, pulmonology, cardiology recommendations - Fluid restriction diet, patient drinks 1.5 gallon fluids evry day FC DVT ppx: pharmacological on eliquise, alps Diabetic diet, Fluid restriction 1500cc Problem List: 1. CHF exacerbation Pain Ratin Pain Location: no Pain Goal: Remain pain free Pain Plan: see a/p Tomorrow's Labs & Rationales: bep, cbc
--- NOTE | 2018-04-04 09:42 | Cons- Pulmonary ---
General Information and HPI Consulting Request Date of Consult: 04/04/18 Requested By: Jaime Reason for Consult: Or numbness of breath History of Present Illness: Patient is a 63-year-o gentleman with multiple medical problems and including cardiomyopathy pacemaker atrial fibrillation on anticoagulation COPD on oxygen sleep apnea chronic venous stasis ulcers admitted for increasing cough and shortness of breath and chest pain BNP is elevated Allergies/Medications Allergies: Coded Allergies: No Known Allergies (01/08/18) Home Med List: Acetaminophen 500 MG TABLET 1 TAB PO DAILY PRN PAIN PLEASE ALTERNATE WITH NAPROXEN FOR PAIN Albuterol Sulfate (Proair Hfa) 90 MCG HFA.AER.AD 2 PUF INH Q4-6 PRN PRN COPD (Reported) Amiodarone (Cordarone) 200 MG TAB 1 TAB PO DAILY HEART RATE Ammonium Lactate 12 % CREAM..G. 12 % TP BID foot fissures . Apixaban (Eliquis) 5 MG TABLET 1 TAB PO BID AFIB Atorvastatin Calcium 10 MG TABLET 1 TAB PO DAILY CHOLESTEROL Carvedilol (Coreg) 25 MG TABLET 0.5 TAB PO BID HIGH BLOOD PRESSURE (Reported) Dicyclomine HCl 10 MG CAPSULE 1 CAP PO TID ABDOMINAL PAIN Febuxostat (Uloric) 40 MG TABLET 40 MG PO DAILY Gout Ferrous Sulfate 325 MG (65 MG IRON) TABLET 1 TAB PO DAILY anemia Fluticasone/Salmeterol (Advair 500-50 Diskus) 500 MCG-50 MCG/DOSE BLST.W.DEV 1 PUF INH BID COPD (Reported) Furosemide (Lasix) 40 MG TABLET 40 MG PO BID Fluid Overload Gabapentin 400 MG CAPSULE 1 CAP PO TID NEUROPATHY (Reported) Glimepiride 1 MG TABLET 1 TAB PO BID DM (Reported) Guaifenesin (Guaifenesin ER) 600 MG TAB.ER.12H 1 TAB PO BID CONGSETION Hydroxyzine Hydrochloride (Atarax) 50 MG TABLET 2 TAB PO BID MUCUS (Reported) Ipratropium/Albuterol Sulfate (Combivent Respimat Inhal [place]) 20 MCG-100 MCG/ ACTUATION MIST.INHAL 2 PUFF INH BID copd (Reported) Losartan Potassium 25 MG TABLET 25 MG PO DAILY heart health . Metformin HCl (Glucophage) 1,000 MG TABLET 1 TAB PO BID DM (Reported) Montelukast Sodium (Singulair) 10 MG TABLET 1 TAB PO BID copd (Reported) Oxymetazoline HCl (Nasal Decongestant) 0.05 % SPRAY 2 SPRAY JOAQUIN BID PRN NASAL CONGESTION Umeclidinium [place] (Incruse Ellipta) 62.5 MCG/ACTUATION BLST.W.DEV 1 PUFF INH DAILY COPD (Reported) Review of Systems Review of Systems Constitutional: Denies: chills, fever. Cardiovascular: Reports: chest pain. Denies: peripheral edema. Respiratory: Reports: cough, short of breath, sputum production, wheezing. Denies: hemoptysis. GI: Denies: abdominal pain, diarrhea, melena. 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 Other Who Do You Live With? self Services at Home: Oxygen Primary Language: Occitan Smoking Status: Never Smoked Functional Ability ADLs Independent: dressing, eating, toileting, bathing. Ambulation: independent IADLs Independent: shopping, housework, finances, food prep, telephone, transportation , medication admin. Exam & Diagnostic Data Last 24 Hrs of Vital Signs/I&O Vital Signs Date Time Temp Pulse Resp B/P B/P Pulse O2 O2 Flow FiO2 Mean Ox Delivery Rate 04/04 0908 95 Nasal 3.5L Cannula 04/04 0857 74 132/86 04/04 0857 132/86 04/04 0555 97.7 74 22 130/78 95 04/04 0200 80 04/04 0100 96 Nasal 4.0L Cannula 04/04 0030 97.8 75 20 138/92 96 Nasal 4.0L Cannula 06/09 2317 Nasal 4.0L Cannula 04/03 2146 98.4 77 20 153/95 97 Nasal 4.0L Cannula 04/03 1824 96 Nasal 2.0L Cannula 04/03 1812 97.4 75 24 143/89 96 Nasal 4.0L Cannula Intake & Output 04/04 1600 04/04 0800 04/04 0000 Intake Total 400 120 Output Total Balance 400 120 Intake, Oral 400 120 Patient 375 lb 375 lb Weight Weight Reported by Patient Reported by Patient Measurement Method Patient is afebrile oxygen saturation on baseline 3.5 L 95% exam of his chest shows occasional rhonchi and crackles at the bases cardiac exam shows a regular S1 and S2 without murmurs abdomen is soft nontender extremities are compressed with Unna boots Last 48 Hrs of Labs/Joaquim: Laboratory Tests 04/04/18 0632: Anion Gap 13, Estimated GFR > 60, BUN/Creatinine Ratio 14.2, Magnesium 1.8, Troponin I 0.05, CBC w Diff NO MAN DIFF REQ, RBC 4.55 L, MCV 84.8, MCH 27.3, MCHC 32.2 L, RDW 15.4 H, MPV 7.0 L, Gran % 83.1 H, Lymphocytes % 13.0 L, Monocytes % 3.5, Eosinophils % 0.3, Basophils % 0.1, Absolute Granulocytes 4.8, Absolute Lymphocytes 0.8 L, Absolute Monocytes 0.2, Absolute Eosinophils 0, Absolute Basophils 0 04/04/18 0100: Troponin I 0.05 04/03/18 1835: Anion Gap 10, Estimated GFR > 60, BUN/Creatinine Ratio 14.2, Glucose 102 H, Calcium 9.0, Total Bilirubin 1.1, AST 25, ALT 11 L, Alkaline Phosphatase 78, Troponin I 0.05, Oty-I-Uflvcpqzjfh Pept 4770 H, Total Protein 7.0, Albumin 3.5, Globulin 3.5, Albumin/Globulin Ratio 1.0 L, D-Dimer High Sensitivty 228, CBC w Diff NO MAN DIFF REQ, RBC 4.47 L, MCV 84.4, MCH 27.1, MCHC 32.1 L, RDW 15.6 H , MPV 6.9 L, Gran % 64.1, Lymphocytes % 25.6, Monocytes % 8.0, Eosinophils % 1.6, Basophils % 0.7, Absolute Granulocytes 5.5, Absolute Lymphocytes 2.2, Absolute Monocytes 0.7 H, Absolute Eosinophils 0.1, Absolute Basophils 0.1 04/03/18 1831: Apr-E-Ijpkbjbivzf Pept Cancelled Assessment/Plan Impression/Plan: 63-year-old with poor living conditions severe cardiomyopathy increased cough shortness of breath. CT scan suggest right upper lobe infiltrate and resolving left lower lobe infiltrate in the setting of normal white count aand afebrile patient has chronic hypercapnic and hypoxic respiratory failure Recommendations: Negative fluid balance. Culture sputum. Hold antibiotics at present. Agree with oral prednisone with rapid taper. Unna boots to be removed tomorrow and replaced. Consult Acknowledgment - Thank you for your consult request.
[2018-04-04 15:10] VITALS: BP 140/78
[2018-04-04 22:07] VITALS: BP 136/80
[2018-04-05 07:04] VITALS: BP 120/74
[2018-04-05 07:47] LABS: ABSOLUTE BASOPHIL COUNT 0 /CUMM (0.0-0.2); ABSOLUTE EOSINOPHIL COUNT 0.1 /CUMM (0.0-0.7); ABSOLUTE GRANULOCYTE CT 5.1 /CUMM (1.4-6.5); ABSOLUTE LYMPH COUNT 2.1 /CUMM (1.2-3.4); ABSOLUTE MONOCYTE COUNT 0.8 /CUMM (0.10-0.60); BASOPHIL % 0.3 % (0.0-2.0); EOSINOPHIL % 1.1 % (0-5); GRANULOCYTE % 63.3 % (42.2-75.2); HEMATOCRIT 39.9 % (42-52); MEAN CORPUSCULAR HGB 27.3 PG (27.0-31.0); MEAN CORPUSCULAR HGB CONC 31.9 G/DL (33.0-37.0); MEAN CORPUSCULAR VOLUME 85.6 FL (80.0-94.0); MEAN PLATELET VOLUME 7.2 FL (7.4-10.4); PLATELET COUNT 161 /CUMM (130-400); RBC DISTRIBUTION WIDTH 15.9 % (11.5-14.5); RED BLOOD CELL CT 4.67 /CUMM (4.70-6.10)
--- NOTE | 2018-04-05 08:06 | PN- Pulmonary ---
Subjective HPI/Critical Care Issues: Patient feels less short of breath Objective Current Medications: Current Medications Sig/Keaton Start time Last Medication Dose Route Stop Time Status Admin Acetaminophen 650 MG ONCE ONE 04/05 0415 CAN PO 04/05 041 Albuterol Sulfate 3 ML TID 04/04 900 AC 04/04 INH 1923 Amiodarone HCl 200 MG DAILY 04/04 900 AC 04/04 PO 0857 Apixaban 5 MG BID 04/04 100 AC 04/04 PO 212 Atorvastatin Calcium 10 MG 2100 04/04 2100 AC 04/04 PO 212 Carvedilol 12.5 MG BID 04/04 100 AC 04/04 PO 212 Ferrous Sulfate 325 MG DAILY 04/04 900 AC 04/04 PO 0856 Furosemide 40 MG ONCE ONE 04/04 900 DC 04/04 IV 04/04 Furosemide 60 MG 7:30 AM, & 4:30 PM 04/04 730 AC 04/05 IV 0745 Gabapentin 400 MG TID 04/04 900 AC 04/04 PO 212 Hydroxyzine HCl 100 MG BID 04/05 900 AC PO Hydroxyzine HCl 50 MG ONCE ONE 04/05 0130 DC 04/05 PO 04/05 0131 0140 Hydroxyzine HCl 50 MG BID 04/04 2100 DC 04/04 PO 192 Insulin Aspart 0 TIDAC 04/04 800 AC 04/04 SC 1135 Ipratropium [place] 2.5 ML TID 04/04 900 AC 04/04 INH 1923 Losartan Potassium 25 MG DAILY 04/04 900 AC 04/04 PO 0857 Montelukast Sodium 10 MG BID 04/04 900 AC 04/04 PO 212 Prednisone 10 MG DAILY 04/07 900 AC PO 04/07 901 Prednisone 20 MG DAILY 04/06 900 AC PO 04/06 901 Prednisone 30 MG TAPER 04/05 1000 DC PO 04/08 959 Prednisone 30 MG DAILY 04/05 900 AC PO 04/05 901 Vital Signs & I&O Last 24 Hrs of Vitals and I&O: Vital Signs Date Time Temp Pulse Resp B/P B/P Pulse O2 O2 Flow FiO2 Mean Ox Delivery Rate 04/05 07 98.0 76 20 120/74 96 Nasal Cannula 04/05 0000 Nasal 4.0L Cannula 04/04 2207 97.8 76 22 136/80 96 Nasal Cannula 06/10 2125 74 140/78 04/04 1600 Nasal 4.0L Cannula 04/04 1510 97.8 74 20 140/78 96 Nasal 4.0L Cannula 04/04 1036 Nasal 3.5L Cannula 04/04 0908 95 Nasal 3.5L Cannula 04/04 0857 74 132/86 04/04 0857 132/86 Intake & Output 04/05 1600 04/05 0800 04/05 0000 Intake Total 120 400 Output Total 400 635 Balance -280 -235 Intake, Oral 120 400 Output, Urine 400 635 And saturation 4 L 96% exam of his chest shows diminished breath sounds are no wheezes cardiac exam shows regular S1 and S2 without murmurs his extremity of Unna boots in place Impression/Plan Impression/Plan Impression/Plan: 63-year-old with cardiomyopathy COPD sleep apnea admitted with increasing shortness of breath improved with diuresis. Sputum shows no white cells. He remains afebrile with normal white count Recommendations: Negative fluid balance. Follow-up Culture sputum. Hold antibiotics at present. Agree with oral prednisone with rapid taper. Taper FiO2 with improved saturations
--- NOTE | 2018-04-05 08:09 | PN- Housestaff ---
RiosjeronimoNorberto diaz 04/05/18 0809: Subjective Follow-up For: acute CHF exacerbation Tele-Events Since Last Visit: Normal sinus, heart rate 70s Subjective: Seen and examined patient this morning,. States that he slept in the reclining chair beside his bed. Denies fever, chills, shortness of breath, chest pain, palpitations. Review of Systems Constitutional: Denies: see HPI. Objective Last 24 Hrs of Vital Signs/I&O Vital Signs Date Time Temp Pulse Resp B/P B/P Pulse O2 O2 Flow FiO2 Mean Ox Delivery Rate 04/05 0932 96 Nasal 3.5L Cannula 04/05 0903 120/74 04/05 0903 120/74 04/05 0903 120/74 04/05 0704 98.0 76 20 120/74 96 Nasal Cannula 04/05 0000 Nasal 4.0L Cannula 04/04 2207 97.8 76 22 136/80 96 Nasal Cannula 04/04 2125 74 140/78 04/04 1600 Nasal 4.0L Cannula 04/04 1510 97.8 74 20 140/78 96 Nasal 4.0L Cannula 04/04 1036 Nasal 3.5L Cannula Intake & Output 04/05 1600 04/05 0800 04/05 0000 Intake Total 120 400 Output Total 400 635 Balance -280 -235 Intake, Oral 120 400 Output, Urine 400 635 Physical Exam General Appearance: Alert, Oriented X3, Cooperative, No Acute Distress Cardiovascular: Regular Rate, Normal S1, Normal S2 Lungs: b/l decreased BS Abdomen: Normal Bowel Sounds, Soft Extremities: b/l compression stocking in place Current Medications: Current Medications Sig/Keaton Start time Last Medication Dose Route Stop Time Status Admin Acetaminophen 650 MG ONCE ONE 04/05 0415 CAN PO 04/05 0416 Albuterol Sulfate 3 ML TID 04/04 900 AC 04/05 INH 27 Amiodarone HCl 200 MG DAILY 04/04 900 AC 04/05 PO 902 Apixaban 5 MG BID 04/04 100 AC 04/05 PO 902 Atorvastatin Calcium 10 MG 2100 04/04 2100 AC 04/04 PO 2123 Carvedilol 12.5 MG BID 04/04 100 AC 04/05 PO 902 Ferrous Sulfate 325 MG DAILY 04/04 900 AC 04/05 PO 902 Furosemide 60 MG 7:30 AM, & 4:30 PM 04/04 0730 AC 04/05 IV 0745 Gabapentin 400 MG TID 04/04 900 AC 04/05 PO 09 Hydroxyzine HCl 100 MG BID 04/05 09 AC 04/05 PO 09 Hydroxyzine HCl 50 MG ONCE ONE 04/05 0130 DC 04/05 PO 04/05 0131 0140 Hydroxyzine HCl 50 MG BID 04/04 2100 DC 04/04 PO 1921 Insulin Aspart 0 TIDAC 04/04 08 AC 04/04 SC 1135 Ipratropium [place] 2.5 ML TID 04/04 09 AC 04/05 INH 0927 Losartan Potassium 25 MG DAILY 04/04 09 AC 04/05 PO 09 Montelukast Sodium 10 MG BID 04/04 900 AC 04/05 PO 09 Prednisone 10 MG DAILY 04/07 900 AC PO 04/07 901 Prednisone 20 MG DAILY 04/06 900 AC PO 04/06 901 Prednisone 30 MG TAPER 04/05 1000 DC PO 04/08 09 Prednisone 30 MG DAILY 04/05 09 DC 04/05 PO 04/05 09 0903 Last 24 Hrs of Lab/Joaquim Results Last 24 Hrs of Labs/Mics: Laboratory Tests 04/05/18 0614: Anion Gap 12, Estimated GFR 56 L, BUN/Creatinine Ratio 16.9, CBC w Diff NO MAN DIFF REQ, RBC 4.67 L, MCV 85.6, MCH 27.3, MCHC 31.9 L, RDW 15.9 H, MPV 7.2 L , Gran % 63.3, Lymphocytes % 25.7, Monocytes % 9.6 H, Eosinophils % 1.1, Basophils % 0.3, Absolute Granulocytes 5.1, Absolute Lymphocytes 2.1, Absolute Monocytes 0.8 H, Absolute Eosinophils 0.1, Absolute Basophils 0 Assessment/Plan Assessment: 63-year-old morbidly obese gentleman with medical history significant for HFrEF (25-30%) nonischemic cardiomyopathy s/p dual chamber PPM/AICD h/o cardiac arrest ), afib (on eliquis), COPD (on 4 L baseline o2), JORY (not on CPAP), DM, CKD, HLD , GERD/PUD, chronic lower extremity edema with venous stasis changes, gout s/p left foot debridement, and multiple admissions for dyspnea secondary to COPD/CHF exacerbation current admission for shortness of breath and chest pain. Admitted to telemetry floor for the following issues: Acute on chronic CHF exacerbation Continue strict I's and O's Currently on 60 IV per cardio recs will increase to BID Cardio consulted, appreciate recommendations COPD CAT scan shows mild intralobular pulmonary septal thickening and patchy airspace opacification in the right perihilar upper lobe, and subsegmental atelectasis in the right upper and middle lobes anteriorly. continue short p.o. prednisone taper Continue to follow off off antibioti TRC nebulization, incentive spirometry, chest physical therapy, continue home inhalers, continue Singulair (even though it is a daily medication, he takes it twice daily) Diabetes mellitus. Continue to monitor fingerstick, fingersticks 146, 117, 168 NovoLog sliding scale consistent carbohydrate 3 diet Hypertension. Continue Coreg at 12.5 twice daily, continue losartan at 25 mg daily. Diabetic neuropathy. Continue Neurontin 400 mg 3 times daily. history of atrial fibrillation. Continue Coreg, Eliquis and amiodarone 200 mg daily. Full code Pain management with Tylenol. Consistent carbohydrate 3 diet. DVT prophylaxis with Eliquis. Diabetes mellitus Hypertension Diabetic neuropathy History of a flutter fibrillation Problem List: 1. CHF exacerbation Pain Ratin Pain Location: na Pain Goal: Pain 4 or less Pain Plan: tylenol q4 prn Tomorrow's Labs & Rationales: Janelle Hernandez 04/05/18 1114: Attending MD Review Statement Attending Statement Attending MD Statement: examined this patient, discuss w/resident/PA/MDS RN, agreed w/resident/PA/MDS RN, discussed with family, reviewed EMR data (avail), discussed with nursing, discussed with case mgmt, reviewed images, amended to note Attending Assessment/Plan: Patient with multiple medical problems as above comes with shortness of breath on exertion, cough and being treated here for acute on chronic CHF exacerbation. He is requring 60 mg iv laisx bid. Monitor input/output and daily weights. Cardiology and pulmonary recommendations followed. Continue his home meds. Patient lives in [employer] truck. Continue current care. Needs wellness clinic appointment at discharge.
--- NOTE | 2018-04-05 09:30 | Cons- Cardiology ---
General Information and HPI Consulting Request Date of Consult: 04/05/18 Requested By: Neel HARPER,Janelle Reason for Consult: Heart failure History of Present Illness: The patient is a 63-year-old male with history of nonischemic cardiOmyopathy, LVEF 2530%, paroxysmal atrial fibrillation, implanted defibrillator with biventricular pacemaker, COPD, diabetes mellitus. He was admitted to observation in February with exacerbation of congestive heart failure. After clinical improvement he was discharged to home. He was advised to take 40 mg of Lasix twice a day, however due to confusion about his instructions he was only taking 20 mg per day of Lasix. After 2 weeks on that dose he noted worsening edema, and Dr. George increase the Lasix dose to 40 mg twice a day. He was advised to follow up with the [place] [facility] failure clinic for outpatient IV Lasix as needed, however he did not have a chance to follow up with them before his readmission. He is currently homeless, which makes follow-up difficult. He presented with increased shortness of breath exacerbated by minimal activity. He complained of worsening lower extremity edema. On admission he complained of intermittent chest pressure which was a 10 out of 10 in severity, located on the left side of the chest and increased with deep breathing. The chest discomfort has resolved. He has improved clinically with IV Lasix. No syncope. No orthopnea. No nausea or vomiting. No lightheadedness or dizziness. Allergies/Medications Allergies: Coded Allergies: No Known Allergies (01/08/18) Home Med List: Acetaminophen 500 MG TABLET 1 TAB PO DAILY PRN PAIN PLEASE ALTERNATE WITH NAPROXEN FOR PAIN Albuterol Sulfate (Proair Hfa) 90 MCG HFA.AER.AD 2 PUF INH Q4-6 PRN PRN COPD (Reported) Amiodarone (Cordarone) 200 MG TAB 1 TAB PO DAILY HEART RATE Ammonium Lactate 12 % CREAM..G. 12 % TP BID foot fissures . Apixaban (Eliquis) 5 MG TABLET 1 TAB PO BID AFIB Atorvastatin Calcium 10 MG TABLET 1 TAB PO DAILY CHOLESTEROL Carvedilol (Coreg) 25 MG TABLET 0.5 TAB PO BID HIGH BLOOD PRESSURE (Reported) Dicyclomine HCl 10 MG CAPSULE 1 CAP PO TID ABDOMINAL PAIN Febuxostat (Uloric) 40 MG TABLET 40 MG PO DAILY Gout Ferrous Sulfate 325 MG (65 MG IRON) TABLET 1 TAB PO DAILY anemia Fluticasone/Salmeterol (Advair 500-50 Diskus) 500 MCG-50 MCG/DOSE BLST.W.DEV 1 PUF INH BID COPD (Reported) Furosemide (Lasix) 40 MG TABLET 40 MG PO BID Fluid Overload Gabapentin 400 MG CAPSULE 1 CAP PO TID NEUROPATHY (Reported) Glimepiride 1 MG TABLET 1 TAB PO BID DM (Reported) Guaifenesin (Guaifenesin ER) 600 MG TAB.ER.12H 1 TAB PO BID CONGSETION Hydroxyzine Hydrochloride (Atarax) 50 MG TABLET 2 TAB PO BID MUCUS (Reported) Ipratropium/Albuterol Sulfate (Combivent Respimat Inhal [place]) 20 MCG-100 MCG/ ACTUATION MIST.INHAL 2 PUFF INH BID copd (Reported) Losartan Potassium 25 MG TABLET 25 MG PO DAILY heart health . Metformin HCl (Glucophage) 1,000 MG TABLET 1 TAB PO BID DM (Reported) Montelukast Sodium (Singulair) 10 MG TABLET 1 TAB PO BID copd (Reported) Oxymetazoline HCl (Nasal Decongestant) 0.05 % SPRAY 2 SPRAY JOAQUIN BID PRN NASAL CONGESTION Umeclidinium [place] (Incruse Ellipta) 62.5 MCG/ACTUATION BLST.W.DEV 1 PUFF INH DAILY COPD (Reported) Current Medications: Current Medications Sig/Keaton Start time Last Medication Dose Route Stop Time Status Admin Acetaminophen 650 MG ONCE ONE 04/05 0415 CAN PO 04/05 0416 Albuterol Sulfate 3 ML TID 04/04 900 AC 04/05 INH 09 Amiodarone HCl 200 MG DAILY 04/04 900 AC 04/05 PO 902 Apixaban 5 MG BID 04/04 100 AC 04/05 PO 09 Atorvastatin Calcium 10 MG 2100 04/04 2100 AC 04/04 PO 212 Carvedilol 12.5 MG BID 04/04 100 AC 04/05 PO 09 Ferrous Sulfate 325 MG DAILY 04/04 900 AC 04/05 PO 09 Furosemide 60 MG 7:30 AM, & 4:30 PM 04/04 0730 AC 04/05 IV 0745 Gabapentin 400 MG TID 04/04 900 AC 04/05 PO 09 Hydroxyzine HCl 100 MG BID 04/05 900 AC 04/05 PO 09 Hydroxyzine HCl 50 MG ONCE ONE 04/05 0130 DC 04/05 PO 04/05 0131 0140 Hydroxyzine HCl 50 MG BID 04/04 2100 DC 04/04 PO 1921 Insulin Aspart 0 TIDAC 04/04 08 AC 04/04 SC 1135 Ipratropium [place] 2.5 ML TID 04/04 09 AC 04/05 INH 0927 Losartan Potassium 25 MG DAILY 04/04 09 AC 04/05 PO 902 Montelukast Sodium 10 MG BID 04/04 09 AC 04/05 PO 09 Prednisone 10 MG DAILY 04/07 900 AC PO 04/07 901 Prednisone 20 MG DAILY 04/06 900 AC PO 04/06 901 Prednisone 30 MG TAPER 04/05 1000 DC PO 04/08 09 Prednisone 30 MG DAILY 04/05 900 DC 04/05 PO 04/05 Review of Systems Review of Systems: No rash. No tremor. No melena. No diaphoresis. No nausea or vomiting. Past History Travel History Traveled to [place] past 21 day No Medical History Neurological: NONE EENT: NONE Cardiovascular: AFIB, CAD, cardiomyopathy, CHF, chronic venous insuff, hyperlipidemia, CARDIAC ARREST S/P LWC PACER with DEFIB Respiratory: COPD, SLEEP APNEA O2 3.5L NC @ [facility] Gastrointestinal: constipation, peptic ulcer disease, EGD 08/10 showed numerous gastric and duodenal ulcers Hepatic: NONE Renal: benign prost hyperplasia, TEMPORORY DIALYSIS Musculoskeletal: gout, rheumatoid arthritis Psychiatric: NONE Endocrine: diabetes Blood Disorders: anemia Cancer(s): NONE OIL ANALYST/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 Other Who Do You Live With? self Services at Home: Oxygen Primary Language: Irish Smoking Status: Never Smoked Functional Ability ADLs Independent: dressing, eating, toileting, bathing. Ambulation: independent IADLs Independent: shopping, housework, finances, food prep, telephone, transportation , medication admin. Exam & Diagnostic Data Vital Signs and I&O Vital Signs Date Time Temp Pulse Resp B/P B/P Pulse O2 O2 Flow FiO2 Mean Ox Delivery Rate 04/05 0932 96 Nasal 3.5L Cannula 04/05 903 120/74 06/11 0903 120/74 04/05 0903 120/74 04/05 0704 98.0 76 20 120/74 96 Nasal Cannula 04/05 0000 Nasal 4.0L Cannula 04/04 2207 97.8 76 22 136/80 96 Nasal Cannula 04/04 2125 74 140/78 04/04 1600 Nasal 4.0L Cannula 04/04 1510 97.8 74 20 140/78 96 Nasal 4.0L Cannula 04/04 1036 Nasal 3.5L Cannula Intake & Output 04/05 0804/05 0000 04/04 1600 04/04 0800 04/04 0000 Intake Total 120 400 480 400 120 Output Total 353 558 9521 Balance -280 -235 -620 400 120 Intake, Oral 120 400 480 400 120 Output, Urine 480 583 5052 Patient 375 lb 375 lb Weight Weight Reported by Patient Reported by Patient Measurement Method Physical Exam: Gen: The patient is in no acute distress HEENT: Normal nose, ears, and oropharynx. Pupils equal bilaterally. Conjunctiva normal. Neck: Supple with no JVD, no masses, and no thyromegaly Lungs: Clear t with normal respiratory effort Heart: RRR, S1, S2, 1/6 systolic murmur. 2+ peripheral edema, 2+ pulses in the lower extremities bilaterally Abdomen: Soft, nontender, no masses. No hepatomegaly. No splenomegaly Extremities: No clubbing or cyanosis. Normal muscle strength in the upper and lower extremities Skin: Normal skin turgor with no skin ulcers or lesions noted. Neuro: Cranial nerves intact. Sensation intact Psych: Alert and oriented x 3 with appropriate affect Labs/Joaquim Results: Laboratory Tests 04/05 04/04 0614 0632 Chemistry Sodium (137 - 145 mmol/L) 147 H 145 Potassium (3.5 - 5.1 mmol/L) 3.9 4.1 Chloride (98 - 107 mmol/L) 95 L 98 Carbon Dioxide (22 - 30 mmol/L) 40 H 35 H Anion Gap (5 - 16) 12 13 BUN (9 - 20 mg/dL) 22 H 17 Creatinine (0.7 - 1.2 mg/dL) 1.3 H 1.2 Estimated GFR (>60 ml/min) 56 L > 60 BUN/Creatinine Ratio (7 - 25 %) 16.9 14.2 Magnesium (1.6 - 2.3 mg/dL) 1.8 Troponin I (<0.11 ng/ml) 0.05 Hematology CBC w Diff NO MAN DIFF REQ NO MAN DIFF REQ WBC (4.8 - 10.8 /CUMM) 8.0 5.8 RBC (4.70 - 6.10 /CUMM) 4.67 L 4.55 L Hgb (14.0 - 18.0 G/DL) 12.7 L 12.4 L Hct (42 - 52 %) 39.9 L 38.6 L MCV (80.0 - 94.0 FL) 85.6 84.8 MCH (27.0 - 31.0 PG) 27.3 27.3 MCHC (33.0 - 37.0 G/DL) 31.9 L 32.2 L RDW (11.5 - 14.5 %) 15.9 H 15.4 H Plt Count (130 - 400 /CUMM) 161 164 MPV (7.4 - 10.4 FL) 7.2 L 7.0 L Gran % (42.2 - 75.2 %) 63.3 83.1 H Lymphocytes % (20.5 - 51.1 %) 25.7 13.0 L Monocytes % (1.7 - 9.3 %) 9.6 H 3.5 Eosinophils % (0 - 5 %) 1.1 0.3 Basophils % (0.0 - 2.0 %) 0.3 0.1 Absolute Granulocytes (1.4 - 6.5 /CUMM) 5.1 4.8 Absolute Lymphocytes (1.2 - 3.4 /CUMM) 2.1 0.8 L Absolute Monocytes (0.10 - 0.60 /CUMM) 0.8 H 0.2 Absolute Eosinophils (0.0 - 0.7 /CUMM) 0.1 0 Absolute Basophils (0.0 - 0.2 /CUMM) 0 0 04/04 04/03 04/03 0100 1835 1831 Chemistry Sodium (137 - 145 mmol/L) 144 Potassium (3.5 - 5.1 mmol/L) 4.4 Chloride (98 - 107 mmol/L) 99 Carbon Dioxide (22 - 30 mmol/L) 36 H Anion Gap (5 - 16) 10 BUN (9 - 20 mg/dL) 17 Creatinine (0.7 - 1.2 mg/dL) 1.2 Estimated GFR (>60 ml/min) > 60 BUN/Creatinine Ratio (7 - 25 %) 14.2 Glucose (65 - 99 mg/dL) 102 H Calcium (8.4 - 10.2 mg/dL) 9.0 Total Bilirubin (0.2 - 1.3 mg/dL) 1.1 AST (17 - 59 U/L) 25 ALT (21 - 72 U/L) 11 L Alkaline Phosphatase (< 127 U/L) 78 Troponin I (<0.11 ng/ml) 0.05 0.05 [id number] Pept (<125 pg/mL) 4770 H Cancelled Total Protein (6.3 - 8.2 g/dL) 7.0 Albumin (3.5 - 5.0 g/dL) 3.5 Globulin (1.9 - 4.2 gm/dL) 3.5 Albumin/Globulin Ratio (1.1 - 2.2 %) 1.0 L Coagulation D-Dimer High Sensitivty (0 - 243 ng/ml) 228 Hematology CBC w Diff NO MAN DIFF REQ WBC (4.8 - 10.8 /CUMM) 8.6 RBC (4.70 - 6.10 /CUMM) 4.47 L Hgb (14.0 - 18.0 G/DL) 12.1 L Hct (42 - 52 %) 37.8 L MCV (80.0 - 94.0 FL) 84.4 MCH (27.0 - 31.0 PG) 27.1 MCHC (33.0 - 37.0 G/DL) 32.1 L RDW (11.5 - 14.5 %) 15.6 H Plt Count (130 - 400 /CUMM) 188 MPV (7.4 - 10.4 FL) 6.9 L Gran % (42.2 - 75.2 %) 64.1 Lymphocytes % (20.5 - 51.1 %) 25.6 Monocytes % (1.7 - 9.3 %) 8.0 Eosinophils % (0 - 5 %) 1.6 Basophils % (0.0 - 2.0 %) 0.7 Absolute Granulocytes (1.4 - 6.5 /CUMM) 5.5 Absolute Lymphocytes (1.2 - 3.4 /CUMM) 2.2 Absolute Monocytes (0.10 - 0.60 /CUMM) 0.7 H Absolute Eosinophils (0.0 - 0.7 /CUMM) 0.1 Absolute Basophils (0.0 - 0.2 /CUMM) 0.1 Diagnostic Data EKG Results EKG tracing is independently reviewed, and reveals normal sinus rhythm at 76, intraventricular conduction delay, nonspecific ST-T abnormality CXR Results Mild right lower lung field airspace opacity, nonspecific. This may represent atelectasis or early pneumonia. Other Results CT scan of the chest: 1. Mild intralobular pulmonary septal thickening and patchy airspace opacification in the right perihilar upper lobe. Findings may represent sequela of mild pulmonary edema or pneumonitis. 2. Findings consistent with subsegmental atelectasis in the right upper and middle lobes anteriorly. 3. Cardiomegaly. Echocardiogram 02/07/18: 1. This was a technically difficult study 2. Aortic sclerosis is present with no valvular stenosis or insufficiency. Minimal enlargement of the ascending aorta is present. 3. Mitral leaflet thickening is present with moderate annular calcification and mild mitral insufficiency with left atrial enlargement. 4. No significant pericardial fluid was detected on this study. 5. The left ventricular chamber is moderately dilated. The end- diastolic dimension is 70 mm. There is eccentric hypertrophy present with global hypokinesia and an ejection fraction of 25-30%. Additional images were obtained following the administration of IV contrast. 6. Right heart chambers are upper normal in size. Pacemaker wires are present. The right ventricular systolic pressure was not accurately assessed. 7. If clinically indicated, a MUGA scan would better assess left ventricular systolic function and ejection fraction. Assessment/Plan Assessment/Plan The patient is a 63-year-old male with history of nonischemic cardiac myopathy, ICD, diabetes mellitus, COPD, paroxysmal atrial fibrillation, and obstructive sleep apnea who is admitted with acute on chronic systolic heart failure. After his recent discharge, he apparently was taking an insufficient diuretic dose, and he failed to follow-up with Dr. George and with the heart failure clinic. He is now improving on IV Lasix. He had some chest pain on presentation which has resolved. He is unfortunately homeless which makes follow-up difficult. Recommendations: * Continue Lasix 60 mg IV every 12 hours * Monitor input and output * Check basic metabolic profile daily * Once ready for discharge, he should have close follow-up scheduled with Dr. George the CHF clinic * He should be discharged on a higher dose of diuretic. I would recommend Lasix 60 mg twice a day. * Continue other medications Consult Acknowledgment - Thank you for your consult request.
[2018-04-05 14:16] VITALS: BP 124/80
[2018-04-05 22:00] VITALS: BP 122/70
[2018-04-06 07:14] VITALS: BP 112/80
--- NOTE | 2018-04-06 07:33 | PN- Housestaff ---
Vel Talaveraninoion 04/06/18 0733: Subjective Follow-up For: acute on chronic CHF exacerbation Subjective: Seen and examined patient. Offers no complaints states that his breathing has minimally improved today Review of Systems Constitutional: Denies: see HPI. Objective Last 24 Hrs of Vital Signs/I&O Vital Signs Date Time Temp Pulse Resp B/P B/P Pulse O2 O2 Flow FiO2 Mean Ox Delivery Rate 04/06 0800 94 Nasal 4.0L Cannula 04/06 0740 94 Nasal 3.5L Cannula 04/06 0714 98.1 74 20 112/80 96 04/06 0000 Nasal 4.0L Cannula 04/05 2200 98.1 74 20 122/70 96 Nasal Cannula 04/05 2133 75 118/80 04/05 1600 Nasal 4.0L Cannula Intake & Output 04/06 1600 04/06 0800 04/06 0000 Intake Total 700 220 450 Output Total 825 550 500 Balance -125 -330 -50 Intake, Oral 700 220 450 Number 0 Bowel Movements Output, Urine 825 550 500 Patient 173 lb Weight Physical Exam General Appearance: Alert, Oriented X3, Cooperative, No Acute Distress Cardiovascular: Regular Rate, Normal S1, Normal S2 Lungs: Normal Air Movement Abdomen: Normal Bowel Sounds, Soft, distended Current Medications: Current Medications Sig/Keaton Start time Last Medication Dose Route Stop Time Status Admin Albuterol Sulfate 3 ML TID 04/04 900 AC 04/06 INH 1400 Amiodarone HCl 200 MG DAILY 04/04 900 AC 04/06 PO 0826 Apixaban 5 MG BID 04/04 100 AC 04/06 PO 0826 Atorvastatin Calcium 10 MG 2100 04/04 2100 AC 04/05 PO 213 Carvedilol 12.5 MG BID 04/04 100 AC 04/06 PO 0826 Ferrous Sulfate 325 MG DAILY 04/04 900 AC 04/06 PO 0826 Furosemide 60 MG 7:30 AM, & 4:30 PM 04/04 0730 AC 04/06 IV 0832 Gabapentin 400 MG TID 04/04 900 AC 04/06 PO 0826 Hydroxyzine HCl 100 MG BID 04/05 900 AC 04/06 PO 0825 Ibuprofen 800 MG Q6P PRN 04/05 1100 AC 04/06 PO 0247 Insulin Aspart 0 TIDAC 04/04 800 AC 04/06 SC 1154 Ipratropium [place] 2.5 ML TID 04/04 900 AC 04/06 INH 1359 Losartan Potassium 25 MG DAILY 04/04 900 AC 04/06 PO 0826 Montelukast Sodium 10 MG BID 04/04 900 AC 04/06 PO 0825 Prednisone 10 MG DAILY 04/07 900 AC PO 04/07 09 Prednisone 20 MG DAILY 04/06 0900 DC 04/06 PO 04/06 0901 0826 Last 24 Hrs of Lab/Joaquim Results Last 24 Hrs of Labs/Mics: Laboratory Tests 04/06/18625: Anion Gap 12, Estimated GFR > 60, BUN/Creatinine Ratio 20.8, Magnesium 2.0 Assessment/Plan Assessment: 63-year-old morbidly obese gentleman with medical history significant for HFrEF (25-30%) nonischemic cardiomyopathy s/p dual chamber PPM/AICD h/o cardiac arrest ), afib (on eliquis), COPD (on 4 L baseline o2), JORY (not on CPAP), DM, CKD, HLD , GERD/PUD, chronic lower extremity edema with venous stasis changes, gout s/p left foot debridement, and multiple admissions for dyspnea secondary to COPD/CHF exacerbation current admission for shortness of breath and chest pain. Admitted to telemetry floor for the following issues: Acute on chronic CHF exacerbation Continue strict I's and O's Lasix will be increased to 80 twice daily today Cardio consulted, appreciate recommendations COPD CAT scan shows mild intralobular pulmonary septal thickening and patchy airspace opacification in the right perihilar upper lobe, and subsegmental atelectasis in the right upper and middle lobes anteriorly. continue short p.o. prednisone taper Continue to follow off antibiotics per pulmon will start on diamox TRC nebulization, incentive spirometry, chest physical therapy, continue home inhalers, continue Singulair (even though it is a daily medication, he takes it twice daily) Diabetes mellitus. Continue to monitor fingerstick,170,170,200 today NovoLog sliding scale consistent carbohydrate 3 diet Hypertension. Continue Coreg at 12.5 twice daily, continue losartan at 25 mg daily. Diabetic neuropathy. Continue Neurontin 400 mg 3 times daily. history of atrial fibrillation. Continue Coreg, Eliquis and amiodarone 200 mg daily. Full code Pain management with Tylenol. Consistent carbohydrate 3 diet. DVT prophylaxis with Eliquis. Problem List: 1. CHF exacerbation 2. COPD (chronic obstructive pulmonary disease) Pain Ratin Pain Location: na Pain Goal: Pain 4 or less Pain Plan: curent regimen Tomorrow's Labs & Rationales: iva Janelle Shaikh 04/06/18 1041: Attending MD Review Statement Attending Statement Attending MD Statement: examined this patient, discuss w/resident/PA/HOSPITAL SOCIAL WORKER, agreed w/resident/PA/HOSPITAL SOCIAL WORKER, discussed with family, reviewed EMR data (avail), discussed with nursing, discussed with case mgmt, reviewed images, amended to note Attending Assessment/Plan: Patient with multiple medical problems as above comes with shortness of breath on exertion, cough and being treated here for acute on chronic CHF exacerbation. Continue 60 mg iv laisx bid. His creatinine is 1.2 which is mildly better than yesterday. Monitor input/output and daily weights. Cardiology and pulmonary recommendations followed. Hold off antibiotics. Continue his home meds. 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 Continue current care. Needs wellness clinic appointment at discharge.
--- NOTE | 2018-04-06 08:36 | PN- Pulmonary ---
Subjective HPI/Critical Care Issues: As of breath continues to improve with diuresis Objective Current Medications: Current Medications Sig/Keaton Start time Last Medication Dose Route Stop Time Status Admin Acetaminophen 650 MG Q4P PRN 04/05 1000 DC PO Albuterol Sulfate 3 ML TID 04/04 900 AC 04/06 INH 0744 Amiodarone HCl 200 MG DAILY 04/04 900 AC 04/06 PO 0826 Apixaban 5 MG BID 04/04 100 AC 04/06 PO 0826 Atorvastatin Calcium 10 MG 2100 04/04 2100 AC 04/05 PO 2131 Carvedilol 12.5 MG BID 04/04 010 AC 04/06 PO 0826 Ferrous Sulfate 325 MG DAILY 04/04 900 AC 04/06 PO 0826 Furosemide 60 MG 7:30 AM, & 4:30 PM 04/04 0730 AC 04/06 IV 0832 Gabapentin 400 MG TID 04/04 900 AC 04/06 PO 0826 Hydroxyzine HCl 100 MG BID 04/05 09 AC 04/06 PO 0825 Ibuprofen 800 MG Q6P PRN 04/05 1100 AC 04/06 PO 0247 Ibuprofen 800 MG .STK-MED ONE 04/05 1054 DC PO 04/05 1055 Insulin Aspart 0 TIDAC 04/04 08 AC 04/06 SC 0823 Ipratropium [place] 2.5 ML TID 04/04 09 AC 04/06 INH 0745 Losartan Potassium 25 MG DAILY 04/04 09 AC 04/06 PO 0826 Montelukast Sodium 10 MG BID 04/04 09 AC 04/06 PO 0825 Patient Medication 1 ED ONE ONE 04/05 1315 DC Teaching ED 04/05 1316 Prednisone 10 MG DAILY 04/07 900 PO 04/07 09 Prednisone 20 MG DAILY 04/06 09 AC 04/06 PO 04/06 0901 0826 Prednisone 30 MG TAPER 04/05 1000 DC PO 04/08 0959 Prednisone 30 MG DAILY 04/05 09 DC 04/05 PO 04/05 09 0903 Vital Signs & I&O Last 24 Hrs of Vitals and I&O: Vital Signs Date Time Temp Pulse Resp B/P B/P Pulse O2 O2 Flow FiO2 Mean Ox Delivery Rate 04/06 714 98.1 74 20 112/80 96 04/06 0000 Nasal 4.0L Cannula 04/05 2200 98.1 74 20 122/70 96 Nasal Cannula 04/05 2133 75 118/80 04/05 1600 Nasal 4.0L Cannula 04/05 1416 98.2 74 20 124/80 94 Nasal Cannula 04/05 0932 96 Nasal 3.5L Cannula 04/05 0903 120/74 04/05 0903 120/74 04/05 0903 120/74 Intake & Output 04/06 1600 04/06 0800 04/06 0000 Intake Total 220 450 Output Total 550 500 Balance -330 -50 Intake, Oral 220 450 Number 0 Bowel Movements Output, Urine 550 500 Patient 173 lb Weight Oxygen saturation 4 L 96% exam of his chest shows somewhat diminished breath sounds are no wheezes cardiac exam shows regular S1 and S2 lower extremities have Unna boots in place Impression/Plan Impression/Plan Impression/Plan: 63-year-old with multiple medical [id number] with multiple medical problems admitted with shortness of breath secondary to congestive heart failure improving with diuresis Recommendations: Negative fluid balance. Follow-up Culture sputum. Hold antibiotics at present. Agree with oral prednisone with rapid taper. Taper FiO2 with improved saturations give Diamox 250 mg by mouth daily until bicarbonate decreases to baseline of approximately 35
--- NOTE | 2018-04-06 10:28 | PN- Cardiology ---
Subjective Subjective: Shortness of breath is somewhat better today. No chest pain. No palpitations. No diaphoresis. No nausea or vomiting. Objective Vital Signs and I&Os Vital Signs Date Time Temp Pulse Resp B/P B/P Pulse O2 O2 Flow FiO2 Mean Ox Delivery Rate 04/06 0800 94 Nasal 4.0L Cannula 04/06 0740 94 Nasal 3.5L Cannula 04/06 0714 98.1 74 20 112/80 96 04/06 0000 Nasal 4.0L Cannula 04/05 2200 98.1 74 20 122/70 96 Nasal Cannula 04/05 2133 75 118/80 04/05 1600 Nasal 4.0L Cannula 04/05 1416 98.2 74 20 124/80 94 Nasal Cannula Intake & Output 04/06 0000 04/05 1600 04/05 0000 Intake Total 220 450 120 400 Output Total 901 368 8997 400 635 Balance - -280 -235 Intake, Oral 220 450 120 400 Number 0 Bowel Movements Output, Urine 939 940 2804 400 635 Patient 173 lb Weight Physical Exam: Gen: NAD HEENT: normal Lungs: scattered rales, normal resp. effort Heart: RRR, S1, S2, 1/6 systolic murmur Abdomen: Soft, nontender, no masses Extremities: 2+ edema Neuro: Alert and oriented x 3, cranial nerves intact Current Medications: Current Medications Sig/Keaton Start time Last Medication Dose Route Stop Time Status Admin Acetaminophen 650 MG Q4P PRN 04/05 1000 DC PO Albuterol Sulfate 3 ML TID 04/04 900 AC 04/06 INH 0744 Amiodarone HCl 200 MG DAILY 04/04 900 AC 04/06 PO 08 Apixaban 5 MG BID 04/04 100 AC 04/06 PO 08 Atorvastatin Calcium 10 MG 2100 04/04 2100 AC 04/05 PO 213 Carvedilol 12.5 MG BID 04/04 100 AC 04/06 PO 08 Ferrous Sulfate 325 MG DAILY 04/04 900 AC 04/06 PO 08 Furosemide 60 MG 7:30 AM, & 4:30 PM 04/04 0730 AC 04/06 IV 0832 Gabapentin 400 MG TID 04/04 900 AC 04/06 PO 0826 Hydroxyzine HCl 100 MG BID 04/05 900 AC 06/12 PO 0825 Ibuprofen 800 MG Q6P PRN 04/05 1100 AC 04/06 PO 0247 Ibuprofen 800 MG .STK-MED ONE 04/05 1054 DC PO 04/05 1055 Insulin Aspart 0 TIDAC 04/04 08 AC 04/06 SC 0823 Ipratropium [place] 2.5 ML TID 04/04 900 AC 04/06 INH 0745 Losartan Potassium 25 MG DAILY 04/04 900 AC 04/06 PO 0826 Montelukast Sodium 10 MG BID 04/04 09 AC 04/06 PO 0825 Patient Medication 1 ED ONE ONE 04/05 1315 DC Teaching ED 04/05 1316 Prednisone 10 MG DAILY 04/07 900 AC PO 04/07 09 Prednisone 20 MG DAILY 04/06 0900 DC 04/06 PO 04/06 0901 0826 Results Last 48 Hrs of Labs/Mics: Laboratory Tests 04/06/18625: Anion Gap 12, Estimated GFR > 60, BUN/Creatinine Ratio 20.8, Magnesium 2.0 04/05/18 06: Anion Gap 12, Estimated GFR 56 L, BUN/Creatinine Ratio 16.9, CBC w Diff NO MAN DIFF REQ, RBC 4.67 L, MCV 85.6, MCH 27.3, MCHC 31.9 L, RDW 15.9 H, MPV 7.2 L , Gran % 63.3, Lymphocytes % 25.7, Monocytes % 9.6 H, Eosinophils % 1.1, Basophils % 0.3, Absolute Granulocytes 5.1, Absolute Lymphocytes 2.1, Absolute Monocytes 0.8 H, Absolute Eosinophils 0.1, Absolute Basophils 0 Assessment/Plan Assessment/Plan Assessment: 1. Nonischemic cardiomyopathy 2. Implanted defibrillator 3. Diabetes mellitus 4. Paroxysmal atrial fibrillation 5. Acute on chronic systolic heart failure Plan: * Would increase Lasix to 80 mg IV every 12 hours for better diuresis * Monitor input and output with daily weights * Check basic metabolic profile daily Continue telemetry? Yes
[2018-04-06 14:23] VITALS: BP 126/73
[2018-04-06 21:27] VITALS: BP 138/90
[2018-04-07 06:53] VITALS: BP 128/70
--- NOTE | 2018-04-07 08:41 | PN- Pulmonary ---
Subjective HPI/Critical Care Issues: Patient continues to diurese effectively having put out 3 L yesterday. Oxygen requirements have decreased. Bicarbonate remains elevated. Objective Current Medications: Current Medications Sig/Keaton Start time Last Medication Dose Route Stop Time Status Admin Acetazolamide 250 MG DAILY 04/06 1430 AC 04/07 PO 0823 Albuterol Sulfate 3 ML TID 04/04 0900 AC 04/07 INH 0833 Amiodarone HCl 200 MG DAILY 04/04 09 AC 04/07 PO 0823 Apixaban 5 MG BID 04/04 0100 AC 04/07 PO 0824 Atorvastatin Calcium 10 MG 2100 04/04 2100 AC 04/06 PO 2106 Carvedilol 12.5 MG BID 04/04 0100 AC 04/07 PO 0823 Ferrous Sulfate 325 MG DAILY 04/04 09 AC 04/07 PO 0824 Furosemide 80 MG 7:30 AM, & 4:30 PM 04/06 1630 AC 04/07 IV 0823 Furosemide 20 MG ONCE ONE 04/06 1430 CAN IV 04/06 1431 Furosemide 60 MG 7:30 AM, & 4:30 PM 04/04 0730 DC 04/06 IV 0832 Gabapentin 400 MG TID 04/04 09 AC 04/07 PO 0824 Hydroxyzine HCl 100 MG BID 04/05 0900 AC 04/07 PO 0823 Ibuprofen 800 MG .STK-MED ONE 04/06 2351 DC PO 04/06 2352 Ibuprofen 800 MG Q6P PRN 04/05 1100 AC 04/06 PO 2357 Insulin Aspart 0 TIDAC 04/04 0800 AC 04/07 SC 0750 Ipratropium [place] 2.5 ML TID 04/04 0900 AC 04/07 INH 0833 Losartan Potassium 25 MG DAILY 04/04 09 AC 04/07 PO 0824 Montelukast Sodium 10 MG BID 04/04 0900 AC 04/07 PO 0824 Patient Medication 1 ED ONE ONE 04/06 1630 DC Teaching ED 04/06 1631 Prednisone 10 MG DAILY 04/07 09 AC 04/07 PO 04/07 0901 0824 Prednisone 20 MG DAILY 04/06 0900 DC 04/06 PO 04/06 0901 0826 Vital Signs & I&O Last 24 Hrs of Vitals and I&O: Date Time Temp Pulse Resp B/P B/P Pulse O2 O2 Flow FiO2 Mean Ox Delivery Rate 04/07 0834 93 Nasal 3.0L Cannula 04/07 0824 76 128/70 04/07 0823 76 128/70 04/07 0823 76 128/70 04/07 0653 97.4 76 20 128/70 96 Room Air 04/07 0000 93 Nasal 4.0L Cannula 04/067 97.1 74 20 138/90 93 Nasal Cannula 04/06 2106 75 138/90 04/06 1955 95 Nasal 3.5L Cannula 04/06 1600 Nasal 4.0L Cannula 04/06 1423 97.7 75 20 126/73 98 Nasal Cannula Intake & Output 04/07 1600 04/07 0800 04/07 0000 Intake Total 660 1020 Output Total 3425 Balance 660 -2405 Intake, IV 20 Intake, Oral 660 1000 Output, Urine 3425 Patient 368 lb Weight Weight Chair scale Measurement Method Oxygen saturation 3 L 93% exam of his chest shows diminished breath sounds there are no wheezes cardiac exam shows regular S1 and S2 without murmurs lower extremity is improved with compression Impression/Plan Impression/Plan Impression/Plan: 63-year-old morbidly obese cardiomyopathy continues to effectively diuresis. He is developing more of a contraction alkalosis Recommendations: Negative fluid balance. If bicarbonate remains elevated will need to administer Diamox intravenously. Maintain normal potassium. Taper FiO2 as saturations improved.
--- NOTE | 2018-04-07 08:47 | PN- Housestaff ---
RioserumNorberto 04/07/18 0847: Subjective Follow-up For: acute on chronic CHF exacerbation Tele-Events Since Last Visit: paced rhythm, heart rate 70s Subjective: Seen and examined patient states that he has been coughing a lot overnight. His breathing remains at baseline. And his bilateral lower extremity swellings have improved from previous admissions. Denies fever, chills, shortness of breath Review of Systems Constitutional: Denies: see HPI. Objective Last 24 Hrs of Vital Signs/I&O Vital Signs Date Time Temp Pulse Resp B/P B/P Pulse O2 O2 Flow FiO2 Mean Ox Delivery Rate 04/07 0834 93 Nasal 3.0L Cannula 04/07 0824 76 128/70 04/07 0823 76 128/70 04/07 0823 76 128/70 04/07 0653 97.4 76 20 128/70 96 Room Air 04/07 0000 93 Nasal 4.0L Cannula 04/06 2127 97.1 74 20 138/90 93 Nasal Cannula 04/06 2106 75 138/90 04/06 1955 95 Nasal 3.5L Cannula 04/06 1600 Nasal 4.0L Cannula 04/06 1423 97.7 75 20 126/73 98 Nasal Cannula Intake & Output 04/07 1600 04/07 0800 04/07 0000 Intake Total 660 1020 Output Total 3425 Balance 660 -2405 Intake, IV 20 Intake, Oral 660 1000 Output, Urine 3425 Patient 368 lb Weight Weight Chair scale Measurement Method Physical Exam General Appearance: Alert, Oriented X3, Cooperative, No Acute Distress Cardiovascular: Regular Rate, Normal S1, Normal S2 Lungs: Normal Air Movement Extremities: No Edema, chronic venous stasis changes b/l Current Medications: Current Medications Sig/Keaton Start time Last Medication Dose Route Stop Time Status Admin Acetazolamide 250 MG DAILY 04/06 1430 AC 04/07 PO 0823 Albuterol Sulfate 3 ML TID 04/04 900 AC 04/07 INH 0833 Amiodarone HCl 200 MG DAILY 04/04 900 AC 04/07 PO 0823 Apixaban 5 MG BID 04/04 100 AC 04/07 PO 0824 Atorvastatin Calcium 10 MG 2100 04/04 2100 AC 04/06 PO 210 Carvedilol 12.5 MG BID 04/04 0100 AC 04/07 PO 0823 Ferrous Sulfate 325 MG DAILY 04/04 900 AC 04/07 PO 0824 Furosemide 80 MG 7:30 AM, & 4:30 PM 04/06 1630 AC 04/07 IV 0823 Furosemide 20 MG ONCE ONE 04/06 1430 CAN IV 04/06 1431 Furosemide 60 MG 7:30 AM, & 4:30 PM 04/04 0730 DC 04/06 IV 0832 Gabapentin 400 MG TID 04/04 0900 AC 04/07 PO 0824 Hydroxyzine HCl 100 MG BID 04/05 0900 AC 04/07 PO 0823 Ibuprofen 800 MG .STK-MED ONE 04/06 2351 DC PO 04/06 2352 Ibuprofen 800 MG Q6P PRN 04/05 1100 AC 04/06 PO 2357 Insulin Aspart 0 TIDAC 04/04 08 AC 04/07 SC 0750 Ipratropium [place] 2.5 ML TID 04/04 09 AC 04/07 INH 0833 Losartan Potassium 25 MG DAILY 04/04 09 AC 04/07 PO 0824 Montelukast Sodium 10 MG BID 04/04 09 AC 04/07 PO 0824 Patient Medication 1 ED ONE ONE 04/06 1630 DC Teaching ED 04/06 1631 Prednisone 10 MG DAILY 04/07 09 DC 04/07 PO 04/07 0901 0824 Last 24 Hrs of Lab/Joaquim Results Last 24 Hrs of Labs/Mics: Laboratory Tests 04/07/18 0650: Anion Gap 10, Estimated GFR 56 L, BUN/Creatinine Ratio 21.5, Magnesium 2.1 Assessment/Plan Assessment: 63-year-old morbidly obese gentleman with medical history significant for HFrEF (25-30%) nonischemic cardiomyopathy s/p dual chamber PPM/AICD h/o cardiac arrest ), afib (on eliquis), COPD (on 4 L baseline o2), JORY (not on CPAP), DM, CKD, HLD , GERD/PUD, chronic lower extremity edema with venous stasis changes, gout s/p left foot debridement, and multiple admissions for dyspnea secondary to COPD/CHF exacerbation current admission for shortness of breath and chest pain. Admitted to telemetry floor for the following issues: Acute on chronic CHF exacerbation Continue strict I's and O's On IV lasix 80 twice daily today, creatinine 1.3 today Cardio on board, appreciate recommendations Chronic COPD CAT scan shows mild intralobular pulmonary septal thickening and patchy airspace opacification in the right perihilar upper lobe, and subsegmental atelectasis in the right upper and middle lobes anteriorly. continue short p.o. prednisone taper, will be completed today Continue to follow off antibiotics per pulmon on diamox daily TRC nebulization, incentive spirometry, chest physical therapy, continue home inhalers, continue Singulair (even though it is a daily medication, he takes it twice daily) Diabetes mellitus. Continue to monitor fingerstick, [phone] NovoLog sliding scale consistent carbohydrate 3 diet Hypertension. Continue Coreg at 12.5 twice daily, continue losartan at 25 mg daily. Diabetic neuropathy. Continue Neurontin 400 mg 3 times daily. history of atrial fibrillation. Continue Coreg, Eliquis and amiodarone 200 mg daily. Full code Pain management with Tylenol. Consistent carbohydrate 3 diet. DVT prophylaxis with Eliquis. Problem List: 1. CHF exacerbation 2. COPD (chronic obstructive pulmonary disease) 3. Type 2 diabetes mellitus Pain Ratin Pain Location: na Pain Goal: Pain 4 or less Pain Plan: current regimen Tomorrow's Labs & Rationales: Janelle Hernandez 04/07/18 1253: Attending MD Review Statement Attending Statement Attending MD Statement: examined this patient, discuss w/resident/PA/COACH, agreed w/resident/PA/COACH, discussed with family, reviewed EMR data (avail), discussed with nursing, discussed with case mgmt, reviewed images, amended to note Attending Assessment/Plan: Patient seen/examined bedside. Patient feels better than yesterday. He is receiving high dose of lasix 80 mg iv q 12 for diuresis. Patient also found to have contraction alkalosis on blood tests probably use from lasix. Receiving diamox. Closely monitor renal functions and diuresis with iv lasix. Continue with negative balance. Continue rest of medications. gi/dvt prophylaxis
--- NOTE | 2018-04-07 11:38 | PN- Cardiology ---
Subjective Subjective: Doing okay. Still with some shortness of breath and cough. Diuresed more than 3000 cc over the last 24 hours. Objective Vital Signs and I&Os Vital Signs Date Time Temp Pulse Resp B/P B/P Pulse O2 O2 Flow FiO2 Mean Ox Delivery Rate 04/07 0834 93 Nasal 3.0L Cannula 04/07 0824 76 128/70 04/07 0823 76 128/70 04/07 0823 76 128/70 04/07 0653 97.4 76 20 128/70 96 Room Air 04/07 0000 93 Nasal 4.0L Cannula 04/06 2127 97.1 74 20 138/90 93 Nasal Cannula 04/06 2106 75 138/90 04/06 1955 95 Nasal 3.5L Cannula 04/06 1600 Nasal 4.0L Cannula 04/06 1423 97.7 75 20 126/73 98 Nasal Cannula Intake & Output 04/07 1600 04/07 0800 04/07 0000 04/06 1600 04/06 0800 04/06 0000 Intake Total 366 971 7945 700 220 450 Output Total 400 3425 1200 550 500 Balance 10 660 -2405 -500 -330 -50 Intake, IV 10 20 Intake, Oral 467 519 5457 700 220 450 Number 0 Bowel Movements Output, Urine 400 3425 1200 550 500 Patient 368 lb 173 lb Weight Weight Chair scale Measurement Method Physical Exam: General Appearance: well developed/nourished, overweight male, alert, awake, oriented Head: normal HEENT: Normal Neck: supple, JVP normal, carotid upstrokes normal bilaterally, no masses or thyromegaly Respiratory: chest non-tender, clear to auscultation and percussion bilaterally Cardiovascular: regular rate/rhythm, normal S1, S2, 1-2/6 systolic murmur Abdomen: normal bowel sounds, soft, non-tender Extremities: normal inspection, 2+ edema with severe stasis changes, excoriations, weeping, etc. peer Vascular: Pulses are 2+ and equal bilaterally Neurologic: Grossly normal/nonfocal Current Medications: Current Medications Sig/Keaton Start time Last Medication Dose Route Stop Time Status Admin Acetazolamide 250 MG DAILY 04/06 1430 AC 04/07 PO 0823 Albuterol Sulfate 3 ML TID 04/04 900 AC 04/07 INH 0833 Amiodarone HCl 200 MG DAILY 04/04 09 AC 04/07 PO 0823 Apixaban 5 MG BID 04/04 0100 AC 04/07 PO 0824 Atorvastatin Calcium 10 MG 2100 04/04 2100 AC 04/06 PO 2106 Carvedilol 12.5 MG BID 04/04 0100 AC 04/07 PO 0823 Ferrous Sulfate 325 MG DAILY 04/04 0900 AC 04/07 PO 0824 Furosemide 80 MG 7:30 AM, & 4:30 PM 04/06 1630 AC 04/07 IV 0823 Furosemide 20 MG ONCE ONE 04/06 1430 CAN IV 04/06 1431 Furosemide 60 MG 7:30 AM, & 4:30 PM 04/04 0730 DC 04/06 IV 0832 Gabapentin 400 MG TID 04/04 09 AC 04/07 PO 0824 Hydroxyzine HCl 100 MG BID 04/05 09 AC 04/07 PO 0823 Ibuprofen 800 MG .STK-MED ONE 04/06 2351 DC PO 04/06 2352 Ibuprofen 800 MG Q6P PRN 04/05 1100 AC 04/06 PO 2357 Insulin Aspart 0 TIDAC 04/04 08 AC 04/07 SC 0750 Ipratropium [place] 2.5 ML TID 04/04 09 AC 04/07 INH 0833 Losartan Potassium 25 MG DAILY 04/04 09 AC 04/07 PO 0824 Montelukast Sodium 10 MG BID 04/04 09 AC 04/07 PO 0824 Patient Medication 1 ED ONE ONE 04/06 1630 DC Teaching ED 04/06 1631 Prednisone 10 MG DAILY 04/07 0900 DC 04/07 PO 04/07 0901 0824 Assessment/Plan Assessment/Plan Assessment: 1. Nonischemic cardiomyopathy 2. Implanted defibrillator 3. Diabetes mellitus 4. Paroxysmal atrial fibrillation 5. Acute on chronic systolic heart failure Plan: * Would continue Lasix 80 mg IV every 12 hours for better diuresis * Monitor input and output with daily weights * Check basic metabolic profile daily Continue telemetry? Yes
[2018-04-07 14:42] VITALS: BP 116/68
[2018-04-07 21:27] VITALS: BP 126/62
[2018-04-08 06:31] VITALS: BP 132/66
--- NOTE | 2018-04-08 07:22 | PN- Housestaff ---
Vel Talaveraninoion 04/08/18 0722: Subjective Follow-up For: acute on chronic CHF exacerbation Subjective: Seen and examined patient. offers no complaints other than unable to sleep overnight due to coughing Review of Systems Constitutional: Denies: see HPI. Objective Last 24 Hrs of Vital Signs/I&O Vital Signs Date Time Temp Pulse Resp B/P B/P Pulse O2 O2 Flow FiO2 Mean Ox Delivery Rate 04/08 0804 70 118/70 04/08 0804 70 118/70 04/08 0804 70 118/70 04/08 0631 98.3 74 20 132/66 97 Nasal Cannula 04/08 0000 Nasal 4.0L Cannula 04/07 2200 74 126/62 04/07 2127 98.6 74 126/62 94 Nasal 4.5L Cannula 04/07 1600 Nasal 4.0L Cannula 04/07 1442 98.4 76 20 116/68 94 Nasal 3.5L Cannula Intake & Output 04/08 1600 04/08 0800 04/08 0000 Intake Total 100 400 Output Total 500 1300 Balance -400 -900 Intake, Oral 100 400 Output, Urine 500 1300 Physical Exam General Appearance: Alert, Oriented X3, Cooperative, No Acute Distress Cardiovascular: Regular Rate, Normal S1, Normal S2 Lungs: b/l decreased breath sounds Abdomen: distended Current Medications: Current Medications Sig/Ke[place] Start time Last Medication Dose Route Stop Time Status Admin Acetazolamide 250 MG DAILY 04/06 1430 AC 04/08 PO 0804 Albuterol Sulfate 3 ML TID 04/04 900 AC 04/08 INH 0828 Amiodarone HCl 200 MG DAILY 04/04 09 AC 04/08 PO 0804 Apixaban 5 MG BID 04/04 010 AC 04/08 PO 0803 Atorvastatin Calcium 10 MG 2100 04/04 2100 AC 04/07 PO 2200 Carvedilol 12.5 MG BID 04/04 0100 AC 04/08 PO 0804 Ferrous Sulfate 325 MG DAILY 04/04 900 AC 04/08 PO 0803 Furosemide 80 MG 7:30 AM, & 4:30 PM 04/06 1630 AC 04/08 IV 0803 Gabapentin 400 MG TID 04/04 900 AC 04/08 PO 0803 Hydroxyzine HCl 100 MG BID 04/05 09 AC 04/08 PO 0804 Ibuprofen 800 MG Q6P PRN 04/05 1100 AC 04/06 PO 2357 Insulin Aspart 0 TIDAC 04/04 0800 AC 04/08 SC 0805 Ipratropium [place] 2.5 ML TID 04/04 09 AC 04/08 INH 0828 Losartan Potassium 25 MG DAILY 04/04 0900 AC 04/08 PO 0804 Montelukast Sodium 10 MG BID 04/04 0900 AC 04/08 PO 0803 Prednisone 10 MG DAILY 04/07 0900 DC 04/07 PO 04/07 0901 0824 Sodium Chloride 2 SPRAY Q4P PRN 04/07 1315 DC 04/07 JOAQUIN 1442 Last 24 Hrs of Lab/Joaquim Results Last 24 Hrs of Labs/Mics: Laboratory Tests 04/08/18 0607: Anion Gap 8, Estimated GFR 52 L, BUN/Creatinine Ratio 21.4, Magnesium 2.2 Assessment/Plan Assessment: 63-year-old morbidly obese gentleman with medical history significant for HFrEF (25-30%) nonischemic cardiomyopathy s/p dual chamber PPM/AICD h/o cardiac arrest ), afib (on eliquis), COPD (on 4 L baseline o2), JORY (not on CPAP), DM, CKD, HLD , GERD/PUD, chronic lower extremity edema with venous stasis changes, gout s/p left foot debridement, and multiple admissions for dyspnea secondary to COPD/CHF exacerbation current admission for shortness of breath and chest pain. Admitted to telemetry floor for the following issues: Acute on chronic CHF exacerbation Continue strict I's and O's, -6025 fluid since admission, Weights seem to be inaccurately documented. On IV lasix 80 twice daily today, creatinine 1.4 today Cardio on board, appreciate recommendations Chronic COPD CAT scan shows mild intralobular pulmonary septal thickening and patchy airspace opacification in the right perihilar upper lobe, and subsegmental atelectasis in the right upper and middle lobes anteriorly. continue short p.o. prednisone taper, will be completed today Continue to follow off antibiotics per pulmon on diamox daily TRC nebulization, incentive spirometry, chest physical therapy, continue home inhalers, continue Singulair (even though it is a daily medication, he takes it twice daily) Diabetes mellitus. Continue to monitor fingerstick, 164,[phone] NovoLog sliding scale consistent carbohydrate 3 diet Hypertension. Continue Coreg at 12.5 twice daily, continue losartan at 25 mg daily. Diabetic neuropathy. Continue Neurontin 400 mg 3 times daily. history of atrial fibrillation. Continue Coreg, Eliquis and amiodarone 200 mg daily. Full code Pain management with Tylenol. Consistent carbohydrate 3 diet. DVT prophylaxis with Eliquis. Problem List: 1. CHF exacerbation 2. LISETTE (acute kidney injury) Pain Ratin Pain Location: na Pain Goal: Pain 4 or less Pain Plan: current regimen Tomorrow's Labs & Rationales: bep/mag NeelMiguelito rosencrescencio 04/08/18 1108: Attending MD Review Statement Attending Statement Attending MD Statement: examined this patient, discuss w/resident/PA/PHYSICIAN ANESTHESIOLOGIST, agreed w/resident/PA/PHYSICIAN ANESTHESIOLOGIST, discussed with family, reviewed EMR data (avail), discussed with nursing, discussed with case mgmt, reviewed images, amended to note Attending Assessment/Plan: Patient seen/examined bedside. Patient with improvement in clinical condtion with less crackles on examineation and decreased leg swelling bilaterally. He is on his chronic oxygen requirements. His sputum is suggestive of colonization. Hold off antibiotics. Plan is to switch him to PO lasix with stable creatinine function and discharge him. Patient reinforced to keep his CHF clinic appointments as outpatient.
--- NOTE | 2018-04-08 08:46 | PN- Pulmonary ---
Subjective HPI/Critical Care Issues: Shortness of breath is better but patient continues to have congested cough. Sputum shows Haemophilus species with a few white cells suggesting colonization more likely than infection. He continues to diurese. Objective Current Medications: Current Medications Sig/Keaton Start time Last Medication Dose Route Stop Time Status Admin Acetazolamide 250 MG DAILY 04/06 1430 AC 04/08 PO 0804 Albuterol Sulfate 3 ML TID 04/04 09 AC 04/08 INH 0828 Amiodarone HCl 200 MG DAILY 04/04 09 AC 04/08 PO 0804 Apixaban 5 MG BID 04/04 010 AC 04/08 PO 0803 Atorvastatin Calcium 10 MG 2100 04/04 2100 AC 04/07 PO 2200 Carvedilol 12.5 MG BID 04/04 010 AC 04/08 PO 0804 Ferrous Sulfate 325 MG DAILY 04/04 09 AC 04/08 PO 0803 Furosemide 80 MG 7:30 AM, & 4:30 PM 04/06 1630 AC 04/08 IV 0803 Gabapentin 400 MG TID 04/04 09 AC 04/08 PO 0803 Hydroxyzine HCl 100 MG BID 04/05 09 AC 04/08 PO 0804 Ibuprofen 800 MG Q6P PRN 04/05 1100 AC 04/06 PO 2357 Insulin Aspart 0 TIDAC 04/04 08 AC 04/08 SC 0805 Ipratropium [place] 2.5 ML TID 04/04 09 AC 04/08 INH 0828 Losartan Potassium 25 MG DAILY 04/04 09 AC 04/08 PO 0804 Montelukast Sodium 10 MG BID 04/04 09 AC 04/08 PO 0803 Prednisone 10 MG DAILY 04/07 0900 DC 04/07 PO 04/07 0901 0824 Sodium Chloride 2 SPRAY Q4P PRN 04/07 1315 DC 04/07 JOAQUIN 1442 Vital Signs & I&O Last 24 Hrs of Vitals and I&O: Vital Signs Date Time Temp Pulse Resp B/P B/P Pulse O2 O2 Flow FiO2 Mean Ox Delivery Rate 04/08 0804 70 118/70 04/08 0804 70 118/70 04/08 0804 70 118/70 04/08 0631 98.3 74 20 132/66 97 Nasal Cannula 04/08 0000 Nasal 4.0L Cannula 04/07 2200 74 126/62 04/077 98.6 74 126/62 94 Nasal 4.5L Cannula 04/07 1600 Nasal 4.0L Cannula 04/07 1442 98.4 76 20 116/68 94 Nasal 3.5L Cannula Intake & Output 04/08 1600 04/08 0800 04/08 0000 Intake Total 100 400 Output Total 500 1300 Balance -400 -900 Intake, Oral 100 400 Output, Urine 500 1300 Since saturation 4 L 9798% exam of his chest shows occasional rhonchi cardiac exam shows regular S1 and S2 lower extremities have compression dressings in place Impression/Plan Impression/Plan Impression/Plan: 63-year-old gentleman with cardiomyopathy admitted with congestive heart failure and continues to diurese. Oxygenation appears improved. Recommendations: Negative fluid balance. Keep potassium above 4 and continued Diamox. Taper FiO2. Repeat sputum culture
--- NOTE | 2018-04-08 09:50 | Discharge Summary ---
Visit Information Visit Dates Admission Date: 04/03/18 Discharge Date: 04/11/18 Hospital Course Course Attending Physician: Janelle Shaikh MD Primary Care Physician: Vinicio CODY,[place] Course: 63-year-old morbidly obese gentleman with medical history significant for HFrEF (25-30%) nonischemic cardiomyopathy s/p dual chamber PPM/AICD h/o cardiac arrest ), afib (on eliquis), COPD (on 4 L baseline o2), JORY (not on CPAP), DM, CKD, HLD , GERD/PUD, chronic lower extremity edema with venous stasis changes, gout s/p left foot debridement, and multiple admissions for dyspnea secondary to COPD/CHF exacerbation admitted to [facility] 04/03/18-04/11/18 for shortness of breath and chest pain. Admitted to telemetry floor for the following issues: Acute on chronic CHF exacerbation Was diuresed with IV lasix while monitoring his kidney function. His creatinine trended up to 1.5. At time of discharge, his creatinine was 1.4. Per cardiology recomendations he was discharged on Lasix 40mg PO BID. Was instructed to follow up at the CHF clinic regularly starting next week to recheck his kidney function as well. ACS was ruled out with neg troponins and no acute EKG changes. COPD CAT scan showed mild intralobular pulmonary septal thickening and patchy airspace opacification in the right perihilar upper lobe, and subsegmental atelectasis in the right upper and middle lobes anteriorly. Given a short course of p.o. prednisone along with TRC nebulization, incentive spirometry, chest physical therapy, continue home inhalers, continue Singulair (even though it is a daily medication, he takes it twice daily). Diabetes mellitus. His accucheck were well controlled with ISS and consistent carbohydrate 3 diet. Hypertension. Continued Coreg at 12.5 twice daily and losartan at 25 mg daily. Diabetic neuropathy. Continued Neurontin 400 mg 3 times daily. History of atrial fibrillation. Continued on Coreg, Eliquis and amiodarone 200 mg daily. Will follow up with vein clinic on April 14 for a scheduled procedure. Full code DVT prophylaxis with Eliquis. Complications: none Allergies: Coded Allergies: No Known Allergies (01/08/18) Significant Procedures: SERVICE DATE: 04/03/18-1923 EXAM TYPE: CAT - CT CHEST WO IV CONTRAST FINDINGS: LUNGS: There is mild intralobular pulmonary septal thickening bilaterally. Subtle patchy airspace opacification in the right perihilar upper lobe. Linear opacification in the anterior aspect of the right upper lobe and medial aspect of the right middle lobe consistent with subsegmental atelectasis. There are a few tiny calcified granulomata. MEDIASTINUM: The heart is enlarged. Left pectoral cardiac device with leads terminating in the right heart and coronary sinus. No mediastinal adenopathy. The trachea and central airways are patent. PLEURA: No significant pleural effusion. AXILLA: No lymphadenopathy. UPPER ABDOMEN: No acute intra-abdominal abnormalities. Borderline splenomegaly. Lobulated right renal contour. OSSEOUS STRUCTURES: No acute osseous abnormalities. Mild degenerative changes of the spine. IMPRESSION: 1. Mild intralobular pulmonary septal thickening and patchy airspace opacification in the right perihilar upper lobe. Findings may represent sequela of mild pulmonary edema or pneumonitis. 2. Findings consistent with subsegmental atelectasis in the right upper and middle lobes anteriorly. 3. Cardiomegaly. Disposition Summary Disposition Principal Diagnosis: Acute on Chronic CHF exacerbation Additional Diagnosis: COPD Paroxsymal Atrial fibrillation Chronic Venous insufficiency Discharge Disposition: home or self care Discharge Instructions General Discharge Information Code Status: Full Code Patient's Diet: diabetic diet Patient's Activity: as tolerated Follow-Up Instructions/Appts: follow up primary care physician upon discharge follow up with general contractor within two weeks of discharge follow up at CHF clinic for close monitoring of you heart failure Outpatient follow-up with vascular surgery. Medications at Discharge Discharge Medications: Continue taking these medications: Umeclidinium Mary D (Incruse Ellipta) 62.5 MCG/ACTUATION BLST.W.DEV 1 PUFF Inhale through mouth DAILY Qty = 90 Comments: NOT GIVEN IN HOSPITAL Albuterol Sulfate (Proair Hfa) 90 MCG HFA.AER.AD 2 Puff Inhale through mouth EVERY 4-6 HOURS NEEDED as needed for COPD Comments: Last Taken: 04/11/18 Time: 09:43 AM Glimepiride (Glimepiride) 1 MG TABLET 1 Tablet ORAL TWICE DAILY Comments: NOT GIVEN IN HOSPITAL INSULIN GIVEN NEEDED PER SCALE Montelukast Sodium (Singulair) 10 MG TABLET 1 Tablet ORAL TWICE DAILY Comments: Last Taken: 04/11/18 Time: 08:03 AM Metformin HCl (Glucophage) 1,000 MG TABLET 1 Tablet ORAL TWICE DAILY Comments: NOT GIVEN IN HOSPITAL Ipratropium/Albuterol Sulfate (Combivent Respimat Inhal [place]) 20 MCG-100 MCG/ ACTUATION MIST.INHAL 2 PUFF Inhale through mouth TWICE DAILY Qty = 8 Comments: Last Taken: 04/11/18 Time: 9:43 AM Hydroxyzine Hydrochloride (Atarax) 50 MG TABLET 2 Tablet ORAL TWICE DAILY Qty = 120 Comments: Last Taken: 04/11/18 Time: 8:04 AM Ferrous Sulfate (Ferrous Sulfate) 325 MG (65 MG IRON) TABLET 1 Tablet ORAL DAILY Qty = 30 Comments: Last Taken: 04/11/18 Time: 8:02 AM Fluticasone/Salmeterol (Advair 500-50 Diskus) 500 MCG-50 MCG/DOSE BLST.W.DEV 1 Puff Inhale through mouth TWICE DAILY Qty = 60 Comments: NOT GIVEN WHILE IN HOSPITAL Febuxostat (Uloric) 40 MG TABLET 40 Milligram ORAL DAILY Qty = 30 Comments: Last Taken: NOT GIVEN IN THE HOSPITAL Time: Ammonium Lactate (Ammonium Lactate) 12 % CREAM..G. 12 Percent TOPICAL TWICE DAILY Qty = 1 Instructions: . Comments: NOT TAKEN IN HOSPITAL Gabapentin (Gabapentin) 400 MG CAPSULE 1 Capsule ORAL THREE TIMES DAILY Comments: Last Taken: 04/11/18 Time: 8:02 AM Carvedilol (Coreg) 25 MG TABLET 0.5 Tablet ORAL TWICE DAILY Comments: Last Taken: 04/11/18 Time: 08:03 AM Acetaminophen (Acetaminophen) 500 MG TABLET 1 Tablet ORAL DAILY as needed for PAIN Qty = 30 Instructions: PLEASE ALTERNATE WITH NAPROXEN FOR PAIN Comments: Last Taken:NOT GIVEN IN THE HOSPITAL Time: Apixaban (Eliquis) 5 MG TABLET 1 Tablet ORAL TWICE DAILY Qty = 60 Comments: Last Taken: 04/11/18 Time: 8:04 AM Amiodarone (Cordarone) 200 MG TAB 1 Tablet ORAL DAILY Qty = 30 Comments: Last Taken: 04/11/18 Time: 8:0A AM Atorvastatin Calcium (Atorvastatin Calcium) 10 MG TABLET 1 Tablet ORAL DAILY Qty = 30 Comments: Last Taken: 04/10/18 Time: 08:00 PM Guaifenesin (Guaifenesin ER) 600 MG TAB.ER.12H 1 Tablet ORAL TWICE DAILY Qty = 20 Comments: NOT GIVEN IN HOSPITAL Oxymetazoline HCl (Nasal Decongestant) 0.05 % SPRAY 2 [place] In the nose TWICE DAILY as needed for NASAL CONGESTION Qty = 1 Comments: NOT TAKEN IN HOSPITAL Dicyclomine HCl (Dicyclomine HCl) 10 MG CAPSULE 1 Capsule ORAL THREE TIMES DAILY Qty = 9 Comments: NOT TAKEN IN HOSPITAL Furosemide (Lasix) 40 MG TABLET 40 Milligram ORAL TWICE DAILY Qty = 60 Comments: Last Taken: 04/11/18 Time: 8:02 AM Losartan Potassium (Losartan Potassium) 25 MG TABLET 25 Milligram ORAL DAILY Qty = 30 Instructions: . Comments: Last Taken: 04/11/18 Time: 8:03 AM Copies To: Carlee Mooney APRN; Doris HARPER,Julia Kim Attending MD Review Statement Documenting Attending: Neel HARPER,Janelle Other Findings: Patient with creatinine Cr 1.4 and medically stable for discharge on PO lasix 40 bid. Folow up with vein clinic appointment on April 14. Follow up with cardilogy Dr George in 1-2 weeks of discharge. Follow up with CHF clinic in 1 week .
--- NOTE | 2018-04-08 09:50 | Patient Discharge Instructions ---
Discharge Instructions General Discharge Information You were seen/treated for: acute congestive heart failure Special Instructions: follow up with primary care physician upon discharge follow up with your supervisor rolling room within two weeks of discharge You will benefit from going to the CHF clinic for close monitoring of you heart failure Outpatient follow-up with vascular surgery, Diet Recommended Diet: Heart Healthy Acute Coronary Syndrome Inclusion Criteria At DC or during hospital stay patient has or had the following: ACS DIAGNOSIS No Discharge Core Measures Meds if any: Prescribed or Continued at Discharge Meds if any: NOT Prescribed or Continued at Discharge Congestive Heart Failure Inclusion Criteria At DC or during hospital stay patient has or had the following: CHF DIAGNOSIS Yes Discharge Core Measures Meds if any: Prescribed or Continued at Discharge BON/ARB for EF <40% Yes Meds if any: NOT Prescribed or Continued at Discharge Cerebrovascular accident Inclusion Criteria At DC or during hospital stay patient has or had the following: CVA/TIA Diagnosis No (will rule out) Discharge Core Measures Meds if any: Prescribed or Continued at Discharge Meds if any: NOT Prescribed or Continued at Discharge Venous thromboembolism Inclusion Criteria VTE Diagnosis No VTE Type NONE VTE Confirmed by (Test) NONE Discharge Core Measures - Per Current guidelines, there needs to be overlap - treatment for the first 5 days of Warfarin therapy. - If discharged on Warfarin prior to 5 days of - overlap therapy, the patient will need to be - assessed for post discharge needs including - *Post discharge parental anticoagulation - *Warfarin and/or parental anticoagulation education - *Follow up date to check INR post discharge At least 5 days overlap therapy as Inpatient No Meds if any: Prescribed or Continued at Discharge Note: Overlap Therapy is Warfarin and Anticoagulant Meds if any: NOT Prescribed or Continued at Discharge
[2018-04-08 14:13] VITALS: BP 122/80
--- NOTE | 2018-04-08 16:12 | PN- Cardiology ---
Subjective Subjective: doing okay. No new issues Objective Vital Signs and I&Os Vital Signs Date Time Temp Pulse Resp B/P B/P Pulse O2 O2 Flow FiO2 Mean Ox Delivery Rate 04/08 1413 98.6 76 22 122/80 94 Nasal 4.5L Cannula 04/08 0936 96 Nasal 3.5L Cannula 04/08 0804 70 118/70 04/08 0804 70 118/70 04/08 0804 70 118/70 04/08 0800 93 Nasal 4.0L Cannula 04/08 0631 98.3 74 20 132/66 97 Nasal Cannula 04/08 0000 Nasal 4.0L Cannula 04/07 2200 74 126/62 04/07 2127 98.6 74 126/62 94 Nasal 4.5L Cannula Intake & Output 04/08 1600 04/08 0800 04/08 0000 04/07 1600 04/07 0800 04/07 0000 Intake Total 1030 100 400 850 327 9078 Output Total 2200 500 1300 1200 3425 Balance -1170 -400 -900 -490 660 -2405 Intake, IV 30 10 20 Intake, Oral 1000 100 400 711 514 7332 Number 1 Bowel Movements Output, Urine 2200 500 1300 1200 3425 Patient 368 lb 368 lb Weight Weight Chair scale Measurement Method Current Medications: Current Medications Sig/Keaton Start time Last Medication Dose Route Stop Time Status Admin Acetazolamide 250 MG DAILY 04/06 1430 AC 04/08 PO 0804 Albuterol Sulfate 3 ML TID 04/04 900 AC 04/08 INH 1308 Amiodarone HCl 200 MG DAILY 04/04 09 AC 04/08 PO 0804 Apixaban 5 MG BID 04/04 0100 AC 04/08 PO 0803 Atorvastatin Calcium 10 MG 2100 04/04 2100 AC 04/07 PO 2200 Carvedilol 12.5 MG BID 04/04 0100 AC 04/08 PO 0804 Ferrous Sulfate 325 MG DAILY 04/04 900 AC 04/08 PO 0803 Furosemide 80 MG 7:30 AM, & 4:30 PM 04/06 1630 AC 04/08 IV 0803 Gabapentin 400 MG TID 04/04 900 AC 04/08 PO 1331 Hydroxyzine HCl 100 MG BID 04/05 09 AC 04/08 PO 0804 Ibuprofen 800 MG Q6P PRN 04/05 1100 AC 04/06 PO 2357 Insulin Aspart 0 TIDAC 04/04 0800 AC 04/08 SC 1223 Ipratropium [place] 2.5 ML TID 04/04 09 AC 04/08 INH 1307 Losartan Potassium 25 MG DAILY 04/04 09 AC 04/08 PO 0804 Montelukast Sodium 10 MG BID 04/04 09 AC 04/08 PO 0803 Potassium Chloride 40 MEQ ONCE ONE 04/08 1230 DC 04/08 PO 04/08 1231 1222 Results Last 48 Hrs of Labs/Mics: Laboratory Tests 04/08/18 0607: Anion Gap 8, Estimated GFR 52 L, BUN/Creatinine Ratio 21.4, Magnesium 2.2 04/07/18 0650: Anion Gap 10, Estimated GFR 56 L, BUN/Creatinine Ratio 21.5, Magnesium 2.1 Assessment/Plan Assessment/Plan Assessment: 1. Nonischemic cardiomyopathy 2. Implanted defibrillator 3. Diabetes mellitus 4. Paroxysmal atrial fibrillation 5. Acute on chronic systolic heart failure Plan: -The patient's Bun, creatinine, and sodium are increased today. Please hold evening dose of Lasix -Reassess labs in the morning and readjust Lasix dose at that time. -Perhaps, the patient can be transitioned to oral Lasix in the morning if stable. Continue telemetry? Yes
[2018-04-08 22:15] VITALS: BP 106/58
[2018-04-09 06:27] VITALS: BP 110/60
--- NOTE | 2018-04-09 08:00 | PN- Housestaff ---
Norberto Talavera 04/09/18 0759: Subjective Follow-up For: acute on chronic CHF exacerbation Subjective: Seen and examined patient. States that he is coughing a little bit more today. Review of Systems Constitutional: Denies: chills, diaphoresis, fever, malaise, weakness, unexplained weight loss. Cardiovascular: Denies: chest pain, edema, orthopena, palpitations, peripheral edema, syncope. Objective Last 24 Hrs of Vital Signs/I&O Vital Signs Date Time Temp Pulse Resp B/P B/P Pulse O2 O2 Flow FiO2 Mean Ox Delivery Rate 04/09 1409 98.1 76 24 108/64 95 Nasal 3.0L Cannula 04/09 0844 97 Nasal 3.0L Cannula 04/09 0822 74 110/60 04/09 0821 74 110/60 04/09 0821 74 110/60 04/09 0800 94 Nasal 3.5L Cannula 04/09 0627 97.5 77 22 110/60 95 Room Air 04/08 2215 98.5 75 18 106/58 92 Nasal 3.0L Cannula 04/08 2114 Nasal 3.5L Cannula 04/08 2029 78 126/82 04/08 1830 97 Nasal 4.5L Cannula 04/08 1600 94 Nasal 4.0L Cannula Intake & Output 04/09 1600 04/09 0800 04/09 0000 Intake Total 840 400 300 Output Total 900 750 725 Balance -60 -350 -425 Intake, Oral 840 400 300 Number 1 Bowel Movements Output, Urine 900 750 725 Patient 364 lb Weight Weight Chair scale Measurement Method Physical Exam General Appearance: Alert, Oriented X3, Cooperative, No Acute Distress Cardiovascular: Regular Rate, Normal S1, Normal S2 Lungs: Normal Air Movement, b/l rhonchi Current Medications: Current Medications Sig/Keaton Start time Last Medication Dose Route Stop Time Status Admin Acetazolamide 250 MG DAILY 04/06 1430 AC 04/09 PO 0822 Albuterol Sulfate 3 ML TID 04/04 900 AC 04/09 INH 1329 Amiodarone HCl 200 MG DAILY 04/04 0900 AC 04/09 PO 0822 Apixaban 5 MG BID 04/040 AC 04/09 PO 0821 Atorvastatin Calcium 10 MG 2100 04/04 2100 AC 04/08 PO 2027 Carvedilol 12.5 MG BID 04/04 100 AC 04/09 PO 0821 Ferrous Sulfate 325 MG DAILY 04/04 09 AC 04/09 PO 0821 Fluticasone 2 SPRAY DAILY 04/09 09 AC 04/09 Propionate JOAQUIN 04/10 0100 0823 Furosemide 40 MG BID 04/09 1309 AC 04/09 PO 1332 Furosemide 80 MG 7:30 AM, & 4:30 PM 04/06 1630 DC 04/08 IV 0803 Gabapentin 400 MG TID 04/04 09 AC 04/09 PO 1332 Hydroxyzine HCl 100 MG BID 04/05 09 AC 04/09 PO 0822 Ibuprofen 800 MG Q6P PRN 04/08 1630 AC 04/09 PO 0822 Ibuprofen 800 MG Q6P PRN 04/05 1100 DC 04/06 PO 2357 Insulin Aspart 0 TIDAC 04/04 800 AC 04/09 SC 1207 Ipratropium [place] 2.5 ML TID 04/04 900 AC 04/09 INH 1329 Losartan Potassium 25 MG DAILY 04/04 900 AC 04/09 PO 0821 Montelukast Sodium 10 MG BID 04/04 09 AC 04/09 PO 0820 Assessment/Plan Assessment: 63-year-old morbidly obese gentleman with medical history significant for HFrEF (25-30%) nonischemic cardiomyopathy s/p dual chamber PPM/AICD h/o cardiac arrest ), afib (on eliquis), COPD (on 4 L baseline o2), JORY (not on CPAP), DM, CKD, HLD , GERD/PUD, chronic lower extremity edema with venous stasis changes, gout s/p left foot debridement, and multiple admissions for dyspnea secondary to COPD/CHF exacerbation current admission for shortness of breath and chest pain. Admitted to telemetry floor for the following issues: Acute on chronic CHF exacerbation Continue strict I's and O's, transitioned to PO lasix BID today, creatinine 1.4 today Cardio on board, appreciate recommendations Chronic COPD CAT scan shows mild intralobular pulmonary septal thickening and patchy airspace opacification in the right perihilar upper lobe, and subsegmental atelectasis in the right upper and middle lobes anteriorly. completed prednisone taper Continue to follow off antibiotics per pulmon on diamox daily TRC nebulization, incentive spirometry, chest physical therapy, continue home inhalers, continue Singulair (even though it is a daily medication, he takes it twice daily) Diabetes mellitus. Continue to monitor fingerstick, 164,164,195 NovoLog sliding scale consistent carbohydrate 3 diet Hypertension. Continue Coreg at 12.5 twice daily, continue losartan at 25 mg daily. Diabetic neuropathy. Continue Neurontin 400 mg 3 times daily. history of atrial fibrillation. Continue Coreg, Eliquis and amiodarone 200 mg daily. Full code Pain management with Tylenol. Consistent carbohydrate 3 diet. DVT prophylaxis with Eliquis. Problem List: 1. CHF exacerbation 2. COPD (chronic obstructive pulmonary disease) Pain Ratin Pain Location: current regimen Pain Goal: Pain 4 or less Pain Plan: current regimen Tomorrow's Labs & Rationales: bep/mag Janelle Shaikh 04/09/18 1207: Attending MD Review Statement Attending Statement Attending MD Statement: examined this patient, discuss w/resident/PA/TIRE CENTER SUPERVISOR, agreed w/resident/PA/TIRE CENTER SUPERVISOR, discussed with family, reviewed EMR data (avail), discussed with nursing, discussed with case mgmt, reviewed images, amended to note Attending Assessment/Plan: Patient seen/examined bedside. Evening dose of lasix held in view of elevated creatinine function. Patient with improvement in clinical condtion. He is on his chronic oxygen requirements. His sputum is suggestive of colonization. Hold off antibiotics. Plan is to switch him to PO lasix with stable creatinine function and discharge him. Follow cardiology recommendations. Monitor creatinine tomorrow. Patient reinforced to keep his CHF clinic appointments as outpatient. Patient is scheduled to have outpatient vein clinic appointment on 14 April.
--- NOTE | 2018-04-09 08:31 | PN- Pulmonary ---
Subjective HPI/Critical Care Issues: Respiratory status continues to improve with continued diuresis. Creatinine has increased and Lasix dose is being adjusted by cardiology Objective Current Medications: Current Medications Sig/Keaton Start time Last Medication Dose Route Stop Time Status Admin Acetazolamide 250 MG DAILY 04/06 1430 AC 04/09 PO 0822 Albuterol Sulfate 3 ML TID 04/04 0900 AC 04/08 INH 1830 Amiodarone HCl 200 MG DAILY 04/04 09 AC 04/09 PO 0822 Apixaban 5 MG BID 04/04 010 AC 04/09 PO 0821 Atorvastatin Calcium 10 MG 2100 04/04 2100 AC 04/08 PO 2028 Carvedilol 12.5 MG BID 04/04 010 AC 04/09 PO 0821 Ferrous Sulfate 325 MG DAILY 04/04 09 AC 04/09 PO 0821 Fluticasone 2 SPRAY DAILY 04/09 09 AC 04/09 Propionate JOAQUIN 04/10 0100 0823 Furosemide 80 MG 7:30 AM, & 4:30 PM 04/06 1630 AC 04/08 IV 0803 Gabapentin 400 MG TID 04/04 09 AC 04/09 PO 0820 Hydroxyzine HCl 100 MG BID 04/05 0900 AC 04/09 PO 0822 Ibuprofen 800 MG Q6P PRN 04/08 1630 AC 04/09 PO 0822 Ibuprofen 800 MG Q6P PRN 04/05 1100 DC 04/06 PO 2357 Insulin Aspart 0 TIDAC 04/04 08 AC 04/09 SC 0823 Ipratropium [place] 2.5 ML TID 04/04 0900 AC 04/08 INH 1830 Losartan Potassium 25 MG DAILY 04/04 09 AC 04/09 PO 0821 Montelukast Sodium 10 MG BID 04/04 09 AC 04/09 PO 0820 Potassium Chloride 40 MEQ ONCE ONE 04/08 1230 DC 04/08 PO 04/08 1231 1222 Vital Signs & I&O Last 24 Hrs of Vitals and I&O: Vital Signs Date Time Temp Pulse Resp B/P B/P Pulse O2 O2 Flow FiO2 Mean Ox Delivery Rate 04/09 822 74 110/60 04/09 08 74 110/60 04/09 08 74 110/60 04/09 627 97.5 77 22 110/60 95 Room Air 04/08 2215 98.5 75 18 106/58 92 Nasal 3.0L Cannula 04/084 Nasal 3.5L Cannula 04/08 2029 78 126/82 04/08 1830 97 Nasal 4.5L Cannula 04/08 1600 94 Nasal 4.0L Cannula 04/08 1413 98.6 76 22 122/80 94 Nasal 4.5L Cannula 04/08 0936 96 Nasal 3.5L Cannula Intake & Output 04/09 1600 04/09 0800 04/09 0000 Intake Total 400 300 Output Total 750 725 Balance -350 -425 Intake, Oral 400 300 Output, Urine 750 725 Patient 364 lb Weight Weight Chair scale Measurement Method Oxygen is decreased to 3 L saturation 95% exam of his chest shows clear lung jaquez are no wheezes cardiac exam shows a regular S1 and S2 Impression/Plan Impression/Plan Impression/Plan: 63-year-old gentleman with sleep apnea cardiomyopathy is improving with persistent diuresis. A degree of renal insufficiency may well need to be tolerated and oriented maintain optimal respiratory status. Recommendations: Negative fluid balance as renal function allows. Keep potassium above 4 and continued Diamox. Continue to Taper FiO2. Repeat sputum culture
--- NOTE | 2018-04-09 13:19 | PN- Cardiology ---
Subjective Subjective: The patient is doing okay. No new issues or symptoms. BUN, creatinine, etc. stable today. Objective Vital Signs and I&Os Vital Signs Date Time Temp Pulse Resp B/P B/P Pulse O2 O2 Flow FiO2 Mean Ox Delivery Rate 04/09 0844 97 Nasal 3.0L Cannula 04/09 0822 74 110/60 04/09 0821 74 110/60 04/09 0821 74 110/60 04/09 0800 94 Nasal 3.5L Cannula 04/09 0627 97.5 77 22 110/60 95 Room Air 04/08 2215 98.5 75 18 106/58 92 Nasal 3.0L Cannula 04/08 2114 Nasal 3.5L Cannula 04/08 2029 78 126/82 04/08 1830 97 Nasal 4.5L Cannula 04/08 1600 94 Nasal 4.0L Cannula 04/08 1413 98.6 76 22 122/80 94 Nasal 4.5L Cannula Intake & Output 04/09 1600 04/09 0800 04/09 0000 04/08 1600 04/08 0800 04/08 0000 Intake Total 636 800 8288 100 400 Output Total 965 597 6271 500 1300 Balance -350 -425 -1170 -400 -900 Intake, IV 30 Intake, Oral 807 957 4645 100 400 Number 1 Bowel Movements Output, Urine 723 466 5274 500 1300 Patient 364 lb 368 lb Weight Weight Chair scale Measurement Method Current Medications: Current Medications Sig/Keaton Start time Last Medication Dose Route Stop Time Status Admin Acetazolamide 250 MG DAILY 04/06 1430 AC 04/09 PO 0822 Albuterol Sulfate 3 ML TID 04/04 900 AC 04/09 INH 0842 Amiodarone HCl 200 MG DAILY 04/04 09 AC 04/09 PO 0822 Apixaban 5 MG BID 04/04 010 AC 04/09 PO 0821 Atorvastatin Calcium 10 MG 2100 04/04 2100 AC 04/08 PO 2028 Carvedilol 12.5 MG BID 04/04 100 AC 04/09 PO 0821 Ferrous Sulfate 325 MG DAILY 04/04 09 AC 04/09 PO 0821 Fluticasone 2 SPRAY DAILY 04/09 900 AC 04/09 Propionate JOAQUIN 04/10 0100 0823 Furosemide 40 MG BID 04/09 1309 AC PO Furosemide 80 MG 7:30 AM, & 4:30 PM 04/06 1630 DC 04/08 IV 0803 Gabapentin 400 MG TID 04/04 09 AC 04/09 PO 0820 Hydroxyzine HCl 100 MG BID 04/05 0900 AC 04/09 PO 0822 Ibuprofen 800 MG Q6P PRN 04/08 1630 AC 04/09 PO 0822 Ibuprofen 800 MG Q6P PRN 04/05 1100 DC 04/06 PO 2357 Insulin Aspart 0 TIDAC 04/04 800 AC 04/09 SC 1207 Ipratropium [place] 2.5 ML TID 04/04 900 AC 04/09 INH 0842 Losartan Potassium 25 MG DAILY 04/04 09 AC 04/09 PO 0821 Montelukast Sodium 10 MG BID 04/04 900 AC 04/09 PO 0820 Results Last 48 Hrs of Labs/Mics: Laboratory Tests 04/09/18 0612: Anion Gap 7, Estimated GFR 52 L, BUN/Creatinine Ratio 22.9, Magnesium 2.3 04/08/18 0607: Anion Gap 8, Estimated GFR 52 L, BUN/Creatinine Ratio 21.4, Magnesium 2.2 Assessment/Plan Assessment/Plan Assessment: 1. Nonischemic cardiomyopathy 2. Implanted defibrillator 3. Diabetes mellitus 4. Paroxysmal atrial fibrillation 5. Acute on chronic systolic heart failure Plan: -The patient's Bun, creatinine, and sodium are stable today. -Reassess labs in the morning -Transition to p.o. Lasix 40 mg twice daily today. -If stable tomorrow, consider discharge at that time. -Outpatient follow-up with vascular surgery, myself, and CHF clinic scheduled. Continue telemetry? Yes
[2018-04-09 14:09] VITALS: BP 108/64
[2018-04-09 22:51] VITALS: BP 108/68
[2018-04-10 06:21] VITALS: BP 130/80
--- NOTE | 2018-04-10 11:16 | PN- Housestaff ---
See Addendum Subjective Follow-up For: CHF/COPD Tele-Events Since Last Visit: Sinus rhythm, 70s Subjective: No overnight events. Patient asking for a Vietnamese ice this morning. He is ready for discharge. Review of Systems Constitutional: Reports: no symptoms. EENTM: Reports: no symptoms. Cardiovascular: Reports: no symptoms. Respiratory: Reports: no symptoms. Gastrointestinal: Reports: no symptoms. Genitourinary: Reports: no symptoms. Musculoskeletal: Reports: no symptoms. Skin: Reports: no symptoms. Neurological/Psychological: Reports: no symptoms. Hematologic/Endocrine: Reports: no symptoms. Immunologic/Allergic: Reports: no symptoms. Objective Last 24 Hrs of Vital Signs/I&O Vital Signs Date Time Temp Pulse Resp B/P B/P Pulse O2 O2 Flow FiO2 Mean Ox Delivery Rate 04/10 0905 Nasal 3.5L Cannula 04/10 0830 95 Nasal 3.5L Cannula 04/10 0801 77 130/80 04/10 0800 77 130/80 04/10 0800 77 130/80 04/10 0621 98.2 77 22 130/80 96 04/09 2305 Nasal 3.5L Cannula 04/09 2251 98.1 76 20 108/68 95 04/09 2213 75 108/68 04/09 1938 95 Nasal 3.5L Cannula 04/09 1600 Nasal 3.5L Cannula 04/09 1409 98.1 76 24 108/64 95 Nasal 3.0L Cannula Intake & Output 04/10 1600 16 0800 04/10 0000 Intake Total 400 950 Output Total 675 1000 Balance -275 -50 Intake, Oral 400 950 Number 1 Bowel Movements Output, Urine 675 1000 Patient 164.711 kg Weight Weight Chair scale Measurement Method Physical Exam General Appearance: Alert, Oriented X3, Cooperative, No Acute Distress Cardiovascular: Regular Rate, Normal S1, Normal S2 Lungs: Clear to Auscultation Abdomen: Normal Bowel Sounds, Soft, No Tenderness Extremities: edematous Current Medications: Current Medications Sig/Keaton Start time Last Medication Dose Route Stop Time Status Admin Acetazolamide 250 MG DAILY 04/06 1430 AC 04/10 PO 0801 Albuterol Sulfate 3 ML TID 04/04 09 AC 04/10 INH 0831 Amiodarone HCl 200 MG DAILY 04/04 0900 AC 04/10 PO 0800 Apixaban 5 MG BID 04/04 0100 AC 04/10 PO 0759 Atorvastatin Calcium 10 MG 2100 04/04 2100 AC 04/09 PO 2211 Carvedilol 12.5 MG BID 04/04 010 AC 04/10 PO 0801 Ferrous Sulfate 325 MG DAILY 04/04 0900 AC 04/10 PO 0759 Fluticasone 2 SPRAY DAILY 04/09 0900 DC 04/09 Propionate JOAQUIN 04/10 0100 0823 Furosemide 40 MG BID 04/09 1309 AC 04/10 PO 0759 Furosemide 80 MG 7:30 AM, & 4:30 PM 04/06 1630 DC 04/08 IV 0803 Gabapentin 400 MG TID 04/04 09 AC 04/10 PO 0759 Hydroxyzine HCl 100 MG BID 04/05 09 AC 04/10 PO 0801 Ibuprofen 800 MG Q6P PRN 04/08 1630 AC 04/10 PO 0358 Insulin Aspart 0 TIDAC 04/04 08 AC 04/10 SC 0801 Ipratropium [place] 2.5 ML TID 04/04 09 AC 04/10 INH 0831 Losartan Potassium 25 MG DAILY 04/04 09 AC 04/10 PO 0800 Montelukast Sodium 10 MG BID 04/04 09 AC 04/10 PO 0759 Last 24 Hrs of Lab/Joaquim Results Last 24 Hrs of Labs/Mics: Laboratory Tests 04/10/18 0955: Carbon Dioxide Pending, Anion Gap Pending, Estimated GFR 48 L, BUN/Creatinine Ratio 22.0 Assessment/Plan Assessment: 63-year-old morbidly obese gentleman with medical history significant for HFrEF (25-30%) nonischemic cardiomyopathy s/p dual chamber PPM/AICD h/o cardiac arrest ), afib (on eliquis), COPD (on 4 L baseline o2), JORY (not on CPAP), DM, CKD, HLD , GERD/PUD, chronic lower extremity edema with venous stasis changes, gout s/p left foot debridement, and multiple admissions for dyspnea secondary to COPD/CHF exacerbation current admission for shortness of breath and chest pain. Admitted to telemetry floor for the following issues: Acute on chronic CHF exacerbation Continue strict I's and O's, transitioned to PO lasix BID today, creatinine 1.4 today Cardio on board, appreciate recommendations Chronic COPD CAT scan shows mild intralobular pulmonary septal thickening and patchy airspace opacification in the right perihilar upper lobe, and subsegmental atelectasis in the right upper and middle lobes anteriorly. completed prednisone taper Continue to follow off antibiotics per pulmon on diamox daily TRC nebulization, incentive spirometry, chest physical therapy, continue home inhalers, continue Singulair (even though it is a daily medication, he takes it twice daily) Diabetes mellitus. Continue to monitor fingerstick, 164,164,195 NovoLog sliding scale consistent carbohydrate 3 diet Hypertension. Continue Coreg at 12.5 twice daily, continue losartan at 25 mg daily. Diabetic neuropathy. Continue Neurontin 400 mg 3 times daily. history of atrial fibrillation. Continue Coreg, Eliquis and amiodarone 200 mg daily. Potential discharge today pending creatinine. Full code Pain management with Tylenol. Consistent carbohydrate 3 diet. DVT prophylaxis with Eliquis. Problem List: 1. CHF exacerbation Pain Ratin Pain Location: no Pain Goal: Remain pain free Pain Plan: see a/p Tomorrow's Labs & Rationales: no
[2018-04-10 14:54] VITALS: BP 100/70
[2018-04-10 22:00] VITALS: BP 108/70
[2018-04-11 07:04] VITALS: BP 114/82
[2018-04-11 08:04] VITALS: BP 114/82
--- NOTE | 2018-04-11 08:15 | PN- Housestaff ---
Darryl HARPER,[place] 04/11/18 0815: Subjective Follow-up For: CHF/COPD Tele-Events Since Last Visit: Sinus rhythm,paced 74 Subjective: No overnight events. He is ready for discharge. Review of Systems Constitutional: Reports: no symptoms, see HPI. Objective Last 24 Hrs of Vital Signs/I&O Vital Signs Date Time Temp Pulse Resp B/P B/P Pulse O2 O2 Flow FiO2 Mean Ox Delivery Rate 04/11 0949 93 Nasal 3.5L Cannula 04/11 0815 Nasal 3.5L Cannula 04/11 0804 76 114/82 04/11 0803 76 114/82 04/11 0803 76 114/82 04/11 0704 97.8 76 18 114/82 100 Nasal 2.0L Cannula 04/10 2200 98.7 79 22 108/70 94 Nasal 3.5L Cannula 04/10 2123 94 Nasal 3.5L Cannula 04/10 2004 76 108/70 04/10 1905 95 Nasal 3.5L Cannula 04/10 1620 Nasal 3.5L Cannula 04/10 1454 97.9 75 22 100/70 95 Nasal Cannula Intake & Output 04/11 1600 04/11 0800 04/11 0000 Intake Total 240 480 Output Total 300 1450 Balance -60 -970 Intake, Oral 240 480 Number 1 Bowel Movements Output, Urine 300 1450 Patient 366 lb Weight Weight Chair scale Measurement Method Physical Exam General Appearance: Alert, Oriented X3, Cooperative, No Acute Distress Cardiovascular: Regular Rate, Normal S1, Normal S2, No Murmurs Lungs: Clear to Auscultation Abdomen: Soft, No Tenderness, No Hepatospenomegaly Neurological: Normal Speech, Normal Tone, Sensation Intact Extremities: No Cyanosis, No Edema, Normal Pulses Current Medications: Current Medications Sig/Keaton Start time Last Medication Dose Route Stop Time Status Admin Acetazolamide 250 MG DAILY 04/06 1430 DCD 04/11 PO 0804 Albuterol Sulfate 3 ML TID 04/04 09 DCD 04/11 INH 0943 Amiodarone HCl 200 MG DAILY 04/04 09 DCD 04/11 PO 0804 Apixaban 5 MG BID 04/04 0100 DCD 04/11 PO 0803 Atorvastatin Calcium 10 MG 2100 04/04 2100 DCD 04/10 PO 2002 Carvedilol 12.5 MG BID 06/10 0100 DCD 04/11 PO 0803 Ferrous Sulfate 325 MG DAILY 04/04 0900 DCD 04/11 PO 0802 Furosemide 40 MG BID 04/09 1309 DCD 04/11 PO 0802 Gabapentin 400 MG TID 04/04 0900 DCD 04/11 PO 0802 Hydroxyzine HCl 100 MG BID 04/05 0900 DCD 04/11 PO 0804 Ibuprofen 800 MG .STK-MED ONE 04/10 1840 DC PO 04/10 1841 Ibuprofen 800 MG Q6P PRN 04/08 1630 DC 04/10 PO 1843 Insulin Aspart 0 TIDAC 04/04 08 DCD 04/11 SC 0804 Ipratropium Kevin 2.5 ML TID 04/04 0900 DCD 04/11 INH 0943 Losartan Potassium 25 MG DAILY 04/04 09 DCD 04/11 PO 0803 Montelukast Sodium 10 MG BID 04/04 09 DCD 04/11 PO 0802 Last 24 Hrs of Lab/Joaquim Results Last 24 Hrs of Labs/Mics: Laboratory Tests 04/11/18 0600: Anion Gap 10, Estimated GFR 52 L, BUN/Creatinine Ratio 22.9 Assessment/Plan Assessment: 63-year-old morbidly obese gentleman with medical history significant for HFrEF (25-30%) nonischemic cardiomyopathy s/p dual chamber PPM/AICD h/o cardiac arrest ), afib (on eliquis), COPD (on 4 L baseline o2), JORY (not on CPAP), DM, CKD, HLD , GERD/PUD, chronic lower extremity edema with venous stasis changes, gout s/p left foot debridement, and multiple admissions for dyspnea secondary to COPD/CHF exacerbation current admission for shortness of breath and chest pain. Acute on chronic CHF exacerbation Continue strict I's and O's, transitioned to PO lasix BID, creatinine 1.4 today Cardio on board, appreciate recommendations Chronic COPD CAT scan shows mild intralobular pulmonary septal thickening and patchy airspace opacification in the right perihilar upper lobe, and subsegmental atelectasis in the right upper and middle lobes anteriorly. completed prednisone taper Continue to follow off antibiotics per pulmon on diamox daily TRC nebulization, incentive spirometry, chest physical therapy, continue home inhalers, continue Singulair (even though it is a daily medication, he takes it twice daily) Diabetes mellitus. Continue to monitor fingerstick, 164,164,195 NovoLog sliding scale consistent carbohydrate 3 diet Hypertension. Continue Coreg at 12.5 twice daily, continue losartan at 25 mg daily. Diabetic neuropathy. Continue Neurontin 400 mg 3 times daily. history of atrial fibrillation. Continue Coreg, Eliquis and amiodarone 200 mg daily. Potential discharge today pending creatinine. Full code Pain management with Tylenol. Consistent carbohydrate 3 diet. DVT prophylaxis with Eliquis. plam: DC today Problem List: 1. CHF exacerbation Pain Ratin Pain Location: none Pain Goal: Remain pain free Pain Plan: tylenol Tomorrow's Labs & Rationales: none NeelJanelle 04/11/18 1202: Attending MD Review Statement Attending Statement Attending MD Statement: examined this patient, discuss w/resident/PA/PATENT LEATHER SORTER, agreed w/resident/PA/PATENT LEATHER SORTER, discussed with family, reviewed EMR data (avail), discussed with nursing, discussed with case mgmt, reviewed images, amended to note Attending Assessment/Plan: Patient with creatinine Cr 1.4 and medically stable for discharge. Folow up with vein clinic appointment on April 14. Follow up with cardilogy Dr George in 1-2 weeks of discharge.
--- NOTE | 2018-04-11 11:39 | PN- Cardiology ---
Subjective Subjective: Patient feels well today. Offers no new complaints. Objective Vital Signs and I&Os Vital Signs Date Time Temp Pulse Resp B/P B/P Pulse O2 O2 Flow FiO2 Mean Ox Delivery Rate 04/11 0949 93 Nasal 3.5L Cannula 04/11 0815 Nasal 3.5L Cannula 04/11 0804 76 114/82 04/11 0803 76 114/82 04/11 0803 76 114/82 04/11 0704 97.8 76 18 114/82 100 Nasal 2.0L Cannula 04/10 2200 98.7 79 22 108/70 94 Nasal 3.5L Cannula 04/10 2123 94 Nasal 3.5L Cannula 04/10 2004 76 108/70 04/10 1905 95 Nasal 3.5L Cannula 04/10 1620 Nasal 3.5L Cannula 04/10 1454 97.9 75 22 100/70 95 Nasal Cannula Intake & Output 04/11 1600 04/11 0800 04/11 0000 04/10 1600 04/10 0800 04/10 0000 Intake Total 587 335 4313 400 950 Output Total 300 2488 711 3559 Balance -60 -970 1080 -275 -50 Intake, Oral 276 363 4452 400 950 Number 1 1 1 Bowel Movements Output, Urine 300 7987 055 6726 Patient 366 lb 363 lb Weight Weight Chair scale Chair scale Measurement Method Physical Exam: General: no apparent distress. Alert. Obese Eyes: No obvious scleral icterus. HEENT: No jugular venous distention or abnormal jugular venous pulsations. Cardiovascular: Normal intensity S1/S2. Regular Respiratory: No rales or rhonchi Musculoskeletal: No clubbing or cyanosis noted; bilateral lower extremity wrappings Skin: warm, stasis changes noted Current Medications: Current Medications Sig/Keaton Start time Last Medication Dose Route Stop Time Status Admin Acetazolamide 250 MG DAILY 04/06 1430 AC 04/11 PO 0804 Albuterol Sulfate 3 ML TID 04/04 900 AC 04/11 INH 0943 Amiodarone HCl 200 MG DAILY 04/04 900 AC 04/11 PO 0804 Apixaban 5 MG BID 04/04 100 AC 04/11 PO 0803 Atorvastatin Calcium 10 MG 2100 04/04 2100 AC 04/10 PO 2002 Carvedilol 12.5 MG BID 04/04 100 AC 04/11 PO 0803 Ferrous Sulfate 325 MG DAILY 04/04 900 AC 04/11 PO 0802 Furosemide 40 MG BID 04/09 1309 AC 04/11 PO 0802 Gabapentin 400 MG TID 04/04 0900 AC 04/11 PO 0802 Hydroxyzine HCl 100 MG BID 04/05 0900 AC 04/11 PO 0804 Ibuprofen 800 MG .STK-MED ONE 04/10 1840 DC PO 04/10 1841 Ibuprofen 800 MG Q6P PRN 04/08 1630 DC 04/10 PO 1843 Insulin Aspart 0 TIDAC 04/04 08 AC 04/11 SC 0804 Ipratropium [place] 2.5 ML TID 04/04 0900 AC 04/11 INH 0943 Losartan Potassium 25 MG DAILY 04/04 09 AC 04/11 PO 0803 Montelukast Sodium 10 MG BID 04/04 09 AC 04/11 PO 0802 Results Last 48 Hrs of Labs/Mics: Laboratory Tests 04/11/18 0600: Anion Gap 10, Estimated GFR 52 L, BUN/Creatinine Ratio 22.9 04/10/18 0955: Anion Gap 9, Estimated GFR 48 L, BUN/Creatinine Ratio 22.0 Recent Imaging Studies: Telemetry tracings were personally reviewed and shows sinus rhythm Assessment/Plan Assessment/Plan 1. Nonischemic cardiomyopathy 2. Implanted defibrillator 3. Diabetes mellitus 4. Paroxysmal atrial fibrillation 5. Acute on chronic systolic heart failure Patient is doing well and creatinine remains grossly stable on the current Lasix regimen. Okay for discharge from a cardiac standpoint and will follow up with Dr. George/CHF clinic. Rl Yang MD [facility] Continue telemetry? No
== END 2018-04-11 12:45 | DRG 291 ==
LOC: ERH 17:51 → ERHI 22:42 → 1NO 22:42 → ENRESERV 23:14 → 1NO 04-04 00:30 → ENPENDDIS 04-11 10:17 → ENTRNSPT 04-11 12:18 → EDTRNSPT 04-11 12:29 → EDTRNSPTSTS 04-11 12:29 → 1NO 04-11 12:45 → CMPTRNSPT 04-11 12:51
PROVIDERS: Internal Medicine; Physician Assistant Medical
DX: I13.0 Hypertensive heart and chronic kidney disease with heart failure and stage 1 through stage 4 chronic kidney disease, or unspecified chronic kidney disease (principal); I50.23 Acute on chronic systolic (congestive) heart failure; J96.11 Chronic respiratory failure with hypoxia; J44.0 Chronic obstructive pulmonary disease with (acute) lower respiratory infection; J44.1 Chronic obstructive pulmonary disease with (acute) exacerbation; J96.12 Chronic respiratory failure with hypercapnia; Z68.43 Body mass index [BMI] 50.0-59.9, adult; N18.3 Chronic kidney disease, stage 3 (moderate); E11.22 Type 2 diabetes mellitus with diabetic chronic kidney disease; Z99.81 Dependence on supplemental oxygen; I87.2 Venous insufficiency (chronic) (peripheral); E66.09 Other obesity due to excess calories; I42.8 Other cardiomyopathies; Z95.0 Presence of cardiac pacemaker; Z79.01 Long term (current) use of anticoagulants; G47.33 Obstructive sleep apnea (adult) (pediatric); E78.5 Hyperlipidemia, unspecified; K21.9 Gastro-esophageal reflux disease without esophagitis; M10.9 Gout, unspecified; I25.10 Atherosclerotic heart disease of native coronary artery without angina pectoris; N40.0 Benign prostatic hyperplasia without lower urinary tract symptoms; M06.9 Rheumatoid arthritis, unspecified; Z90.79 Acquired absence of other genital organ(s); Z79.84 Long term (current) use of oral hypoglycemic drugs; Z79.51 Long term (current) use of inhaled steroids; I48.0 Paroxysmal atrial fibrillation; K27.9 Peptic ulcer, site unspecified, unspecified as acute or chronic, without hemorrhage or perforation; E11.40 Type 2 diabetes mellitus with diabetic neuropathy, unspecified
CPT/HCPCS: 1NP; ERO; 36415; 36592; 71045; 82436; 87070; 87071; 93005; 93010; J1940; J2060; J3490; J7512

== ENCOUNTER 2018-04-27 14:25 | Inpatient (IN) | payer OTHER, MEDICARE ==
[~2018-04-27] VITALS: Ht 182.9 cm; Wt 176.9 kg
--- NOTE | 2018-04-27 14:40 | ED GENERAL ADULT ---
History of Present Illness General Chief Complaint: Dyspnea (COPD, CHF, Other) Stated Complaint: SOB Source: patient Exam Limitations: no limitations Vital Signs & Intake/Output Vital Signs & Intake/Output Vital Signs Date Time Temp Pulse Resp B/P B/P Pulse O2 O2 Flow FiO2 Mean Ox Delivery Rate 04/27 1818 Nasal 5.0L Cannula 04/27 181 97.8 76 22 141/82 94 Nasal 5.0L Cannula 04/27 1815 93 Nasal 5.0L Cannula 04/27 1700 93 Nasal 5.0L Cannula 04/27 1652 72 18 146/94 92 Room Air Room Air 04/27 1610 79 90/55 04/27 1547 79 26 90/55 94 Non 100% ReBreather 04/27 1525 75 95 04/27 1506 95 Venti Mask 55% 04/27 1433 98.4 77 24 114/75 67 Room Air Room Air Allergies Coded Allergies: No Known Allergies (01/08/18) Reconcile Medications Acetaminophen 500 MG TABLET 1 TAB PO DAILY PRN PAIN PLEASE ALTERNATE WITH NAPROXEN FOR PAIN Albuterol Sulfate (Proair Hfa) 90 MCG HFA.AER.AD 2 PUF INH Q4-6 PRN PRN COPD (Reported) Amiodarone (Cordarone) 200 MG TAB 1 TAB PO DAILY HEART RATE Ammonium Lactate 12 % CREAM..G. 12 % TP BID foot fissures . Apixaban (Eliquis) 5 MG TABLET 1 TAB PO BID AFIB Atorvastatin Calcium 10 MG TABLET 1 TAB PO DAILY CHOLESTEROL Carvedilol (Coreg) 25 MG TABLET 0.5 TAB PO BID HIGH BLOOD PRESSURE (Reported) Dicyclomine HCl 10 MG CAPSULE 1 CAP PO TID ABDOMINAL PAIN Febuxostat (Uloric) 40 MG TABLET 40 MG PO DAILY Gout Ferrous Sulfate 325 MG (65 MG IRON) TABLET 1 TAB PO DAILY anemia Fluticasone/Salmeterol (Advair 500-50 Diskus) 500 MCG-50 MCG/DOSE BLST.W.DEV 1 PUF INH BID COPD (Reported) Furosemide (Lasix) 40 MG TABLET 40 MG PO BID Fluid Overload Gabapentin 400 MG CAPSULE 1 CAP PO TID NEUROPATHY (Reported) Glimepiride 1 MG TABLET 1 TAB PO BID DM (Reported) Guaifenesin (Guaifenesin ER) 600 MG TAB.ER.12H 1 TAB PO BID CONGSETION Hydroxyzine Hydrochloride (Atarax) 50 MG TABLET 2 TAB PO BID MUCUS (Reported) Ipratropium/Albuterol Sulfate (Combivent Respimat Inhal [place]) 20 MCG-100 MCG/ ACTUATION MIST.INHAL 2 PUFF INH BID copd (Reported) Losartan Potassium 25 MG TABLET 25 MG PO DAILY heart health . Metformin HCl (Glucophage) 1,000 MG TABLET 1 TAB PO BID DM (Reported) Montelukast Sodium (Singulair) 10 MG TABLET 1 TAB PO BID copd (Reported) Oxymetazoline HCl (Nasal Decongestant) 0.05 % SPRAY 2 SPRAY JOAQUIN BID PRN NASAL CONGESTION Umeclidinium [place] (Incruse Ellipta) 62.5 MCG/ACTUATION BLST.W.DEV 1 PUFF INH DAILY COPD (Reported) Triage Note: PT TO ED WITH C/O SOB SINCE YESTERDAY "BECAUSE OF THE HEAT", WENT TO CLINIC AND O2 SATS WERE IN THE 60'S. Triage Nurses Notes Reviewed? yes Onset: Gradual Duration: day(s): Timing: constant HPI: 63-year-old male with a history of CHF, chronic venous insufficiency, COPD (on baseline 4 L O2), A. fib, cardiomyopathy (status post AICD placement), hyperlipidemia, prior [place], diabetes sent in from the CHF clinic with hypoxia to the 60s. Patient reports that he has been short of breath since yesterday with vague generalized chest discomfort. On arrival to the emergency department he is hypoxic to 67 on 4 L nasal cannula. Patient has chronic lower extremity edema, reports that his edema is no worse than usual. Denies recent fevers, cough, sputum, nausea, vomiting, diaphoresis. (Sabiha Barron) Past History Travel History Traveled to [place] past 21 day No Medical History Any Pertinent Medical History? see below for history Neurological: NONE EENT: NONE Cardiovascular: AFIB, CAD, cardiomyopathy, CHF, chronic venous insuff, hyperlipidemia, CARDIAC ARREST S/P L[facility] PACER with DEFIB Respiratory: COPD, SLEEP APNEA O2 3.5L NC @ [facility] Gastrointestinal: constipation, peptic ulcer disease, EGD 08/10 showed numerous gastric and duodenal ulcers Hepatic: NONE Renal: benign prost hyperplasia, TEMPORORY DIALYSIS Musculoskeletal: gout, rheumatoid arthritis Psychiatric: NONE Endocrine: diabetes Blood Disorders: anemia Cancer(s): NONE OPERATIONS SUPPORT ANALYST/Reproductive: NONE History of MRSA: Yes History of VRE: No History of CDIFF: No Surgical History Surgical History: Left orchiectomy 20+ yrs ago pacemaker August 2016 right knee cartilage removal Psychosocial History Who do you live with Patient/Self Services at Home Oxygen What is your primary language Macanese Tobacco Use: Never used ETOH Use: denies use Illicit Drug Use: denies illicit drug use Family History Family History, If Any: FATHER Alzheimer's disease FHx: heart disease MOTHER, ; Cause: Heart disease. Hx Contributory? No (Sabiha Barron) Review of Systems Review of Systems Constitutional: Reports: no symptoms. EENTM: Reports: no symptoms. Respiratory: Reports: see HPI. Cardiovascular: Reports: see HPI. GI: Reports: no symptoms. Genitourinary: Reports: no symptoms. Musculoskeletal: Reports: no symptoms. Skin: Reports: no symptoms. Neurological/Psychological: Reports: no symptoms. Hematologic/Endocrine: Reports: no symptoms. Immunologic/Allergic: Reports: no symptoms. (Sabiha Barron) Physical Exam Physical Exam General Appearance: well developed/nourished, no apparent distress, alert, awake , comfortable Head: atraumatic, normal appearance Eyes: Bilateral: normal appearance. Neck: normal inspection Respiratory: no respiratory distress, crackles, wheezing, rales Cardiovascular: regular rate/rhythm Gastrointestinal: soft, non-tender Back: normal inspection Extremities: bilateral lower extremity edema Neurologic/Psych: awake, alert, oriented x 3, normal gait, normal mood/affect Skin: intact, warm/dry Core Measures ACS in differential dx? Yes CVA/TIA Diagnosis: No Sepsis Present: No Sepsis Focused Exam Completed? No (Sabiha Barron) Progress Differential Diagnoses I considered the following diagnoses in my evaluation of the patient: [CHF exacerbation versus COPD exacerbation versus pneumonia versus hypercarbic respiratory failure versus ACS, low concern for PE versus aortic dissection versus pneumothorax] Plan of Care: Orders Procedure Date/time Status Heart Healthy Diet 04/27 D Active Pathway - chart 04/27 1846 Active House Staff 04/27 1846 Active Patient Data 04/27 1846 Active Code Status 04/27 184 Active RT: Reevaluation 04/27 1818 Active RT: Evaluation 04/27 1818 Active Patient Data 04/[address] in observation 04/27 162 Active OXYGEN SETUP (GEN) 07/03 1627 Complete Saline Lock 07/03 1627 Active Vital Signs 04/27 1627 Active Activity/Ambulation 04/27 162 Active Code Status 04/27 1627 Complete Add-on Test (ER Only) 04/27 1547 Active Intake & Output 04/27 1543 Active LACTIC ACID 04/27 1530 Complete BIPAP 04/27 1521 Complete ARTERIAL BLOOD GAS (GEN) 04/27 1453 Complete TROPONIN LEVEL 04/27 1441 Complete MAGNESIUM 04/27 1441 Complete CBC WITHOUT DIFFERENTIAL 04/27 1441 Complete B-TYPE NATRIURETIC PEP (BNP) 04/27 1441 Complete BASIC METABOLIC PANEL 04/27 1441 Complete EKG 04/27 1441 Active TRC EVALUATION (GEN) 04/27 UNK Complete THERAPIST ORDERS 04/27 UNK Complete VTE Mechanical Prophylaxis 04/27 UNK Active Telemetry/Metal Bonding Press Operator 04/27 UNK Active Current Medications Sig/Keaton Start time Last Medication Dose Stop Time Status Admin Furosemide 40 MG BID 04/28 0900 AC (Lasix) Apixaban 5 MG BID 04/27 2100 AC (Eliquis) Guaifenesin 600 MG BID 04/27 2100 AC (Mucinex) Hydroxyzine HCl 100 MG BID 04/27 2100 AC (Atarax) Montelukast Sodium 10 MG BID 04/27 2100 UNVr (Singulair) Budesonide/ 2 PUF BID 04/27 1800 AC Formoterol Fumarate (Symbicort) Oxymetazoline HCl 2 SPRAY BID PRN 04/27 1800 AC (Afrin (No Drip)) Tiotropium [place] 1 PUF DAILY 04/27 1800 AC (Spiriva) Gabapentin 400 MG TID 04/27 1748 AC (Neurontin) Atorvastatin Calcium 10 MG 1700 04/27 174 AC (Lipitor) Albuterol Sulfate 2 PUF Q4-6 PRN PRN 04/27 174 AC (Ventolin) Amiodarone HCl 200 MG DAILY 04/27 174 AC (Cordarone) Laboratory Tests 04/27/18 1530: Anion Gap 11, Estimated GFR 41 L, BUN/Creatinine Ratio 15.3, Glucose 168 H, Lactic Acid 0.7, Calcium 8.6, Magnesium 1.4 L, Troponin I 0.05, Pro-B- Natriuretic Pept 5600 H, CBC w Diff NO MAN DIFF REQ, RBC 4.59 L, MCV 85.9, MCH 27.3, MCHC 31.8 L, RDW 16.7 H, MPV 6.6 L, Gran % 69.6, Lymphocytes % 20.1 L, Monocytes % 8.9, Eosinophils % 1.3, Basophils % 0.1, Absolute Granulocytes 6.2, Absolute Lymphocytes 1.8, Absolute Monocytes 0.8 H, Absolute Eosinophils 0.1, Absolute Basophils 0 04/27/18 1500: pH 7.26 *L, pCO2 81 *H, pO2 94, HCO3 35 H, ABG O2 Sat (Measured) 95.0 L, Carboxyhemoglobin 0.7 L, O2 Concentration % .55, O2 Delivery Method V/M, Phlebotomy Draw Site RIGHT BRACHIAL On exam patient has both wheezing and rales. Likely with a mixed CHF and COPD exacerbation. On arrival to the emergency Department patient was satting 67 on his baseline 4 L nasal cannula, however did not appear in respiratory distress. Patient was switched over to a nonrebreather with improvement in his O2 saturations to high 90s. Initial ABG showed a pH of 7.26 and PCO2 of 81. Patient was started on BiPAP, but only tolerated it for approximately 10 minutes before removing it. Patient is now refusing to try BiPAP again. Was switched to Ventimask by respiratory, and then eventually child back down to his nasal cannula at 7 years. Patient was given nebs and slight Medrol to cover for COPD exacerbation. Patient already took 40 mg of by mouth Lasix prior to arrival, and also received IV Lasix at the CHF clinic. Was going to trial nitroglycerin and enalapril, but patient was briefly hypotensive with systolic BP at 90. Blood pressure spontaneously improved to the 140s, but patient was now resting comfortably on 5 L nasal cannula and satting high 90s, therefore medications were deferred and not given. His EKG shows a paced rhythm, and troponin was 0.05. Discussed with the hospitalist and will admit to telemetry. Patient has expressed that he is full code, but is DNI. Initial ED EKG: pacemaker rhythm (ventricular paced) (Sabiha Barron) Departure Departure Disposition: STILL A PATIENT Condition: Stable Clinical Impression Primary Impression: Hypercapnic respiratory failure Secondary Impressions: CHF (congestive heart failure), COPD (chronic obstructive pulmonary disease) Referrals: Carlee Mooney APRN (PCP/Family) Departure Forms: Customer Survey General Discharge Information Observation Note Spoke With: Temi HARPER,Ingris Stahl Physician Advisor Notified: KERRI HARPER,TOA Chilel (discussed w/case management) Place Patient In: Non-ED OBS Care Area Rationale for Observation: My rational for observation is as follows [supplemental oxygen, hemodynamic monitoring, telemetry monitoring, repeat nebulizer treatments, IV steroids, IV diuretics, cardiology consultation, serial troponins and EKGs]. (Sabiha Barron) PA/KILN DRAWER Co-Sign Statement Statement: ED Attending supervision documentation- x I saw and evaluated the patient. I have also reviewed all the pertinent lab results and diagnostic results. I agree with the findings and the plan of care as documented in the PA's/KILN DRAWER's documentation. SOB, CHF, COPD refuses BiPAP, intubation with increasing lethargy and decreasing oxygenation. [] I have reviewed the ED Record and agree with the PA's/KILN DRAWER's documentation. [] Additions or exceptions (if any) to the PAs/KILN DRAWER's note and plan are summarized below: [] (Sharlene HARPER,[place]akan) Critical Care Note Critical Care Note Critical Care Time: 75-104 min (Sabiha Barron)
[2018-04-27 15:42] LABS: ABSOLUTE BASOPHIL COUNT 0 /CUMM (0.0-0.2); ABSOLUTE EOSINOPHIL COUNT 0.1 /CUMM (0.0-0.7); ABSOLUTE GRANULOCYTE CT 6.2 /CUMM (1.4-6.5); ABSOLUTE LYMPH COUNT 1.8 /CUMM (1.2-3.4); ABSOLUTE MONOCYTE COUNT 0.8 /CUMM (0.10-0.60); BASOPHIL % 0.1 % (0.0-2.0); EOSINOPHIL % 1.3 % (0-5); GRANULOCYTE % 69.6 % (42.2-75.2); HEMATOCRIT 39.5 % (42-52); MEAN CORPUSCULAR HGB 27.3 PG (27.0-31.0); MEAN CORPUSCULAR HGB CONC 31.8 G/DL (33.0-37.0); MEAN CORPUSCULAR VOLUME 85.9 FL (80.0-94.0); MEAN PLATELET VOLUME 6.6 FL (7.4-10.4); PLATELET COUNT 225 /CUMM (130-400); RBC DISTRIBUTION WIDTH 16.7 % (11.5-14.5); RED BLOOD CELL CT 4.59 /CUMM (4.70-6.10)
--- NOTE | 2018-04-27 15:59 | RADIOLOGY REPORT ---
EXAMINATION: XR PORTABLE CHEST CLINICAL INFORMATION: Shortness of breath COMPARISON: 04/03/2018 TECHNIQUE: Portable frontal view of the chest was obtained. FINDINGS: Central vascular congestion has slightly progressed. Persistent cardiomegaly. No focal consolidation or definite pleural effusion. IMPRESSION: Central vascular congestion has slightly progressed. Cardiomegaly.
--- NOTE | 2018-04-27 16:55 | History & Physical ---
Linda Watson 04/27/18 3984: General Information and HPI MD Statement: I have seen and personally examined SUZETTE GRIGSBY SR and documented this H&P. The patient is a 63 year old M who presented with a patient stated chief complaint of shortness of breath for 2 days. Source of Information: patient Exam Limitations: no limitations History of Present Illness: Patient is a 63-year-old morbidly obese male with a history of CHF, chronic venous insufficiency, COPD (on baseline 3-4 L O2), A. fib on elloquis, sleep apnea, cardiomyopathy (status post AICD placement), DM type 2 on metformin, hyperlipidemia, prior RI, diabetes sent in from the CHF clinic with hypoxia to the 60s. Patient was given lasix dose in the clinic as well. Patient reports that he has been short of breath for 2 days with vague generalized chest discomfort. PAtient states that 2 days ago the weather change has caused him to have significant discomfort in breathing and has became worse today. The patient does state that he has associated chest pain but only during cough which is productive in nature producing yellow-white sputum. The shortness of breath is non positional and the patient denies any headaches, nausea or vomiting. The patient follows up with Dr. George who he saw last week. As for his pulmonology care he follows up with Dr. Puente. Furthermore, patient has lower extremity edema which he states he is getting vein ligation with a physician in [place], [place]. Patient has been in and out of [facility] on multiple admissions since July 2017. He has further history of duodenal and gastric ulcers for which he was seen by Dr. Salazar. Most recently patient was seen in mid March 2017 for CHF exacerbation. In the emergency department on arrival to the emergency department the patient was hypoxic to 67 on 4 L nasal cannula. Patient has chronic lower extremity edema, reports that his edema is no worse than usual. He was put on BiPAP for ten minutes before denying the treatment. He was given nebulizers and steroids in the ED as well. CXR. demonstrated central vascular congestion has slightly progressed as well as cardiomegaly. Initial ABG showed a pH of 7.26 and PCO2 of 81. His EKG shows a paced rhythm, and troponin was 0.05. Patient had a proBNP of 5600 and has ranged from [id number] on previous admiussions. Patient is admitted to the telemetry unit for further monitoring of possible CHF/COPD exacerbation. Allergies/Medications Allergies: Coded Allergies: No Known Allergies (01/08/18) Past History Travel History Traveled to [place] past 21 day No Medical History Neurological: NONE EENT: NONE Cardiovascular: AFIB, CAD, cardiomyopathy, CHF, chronic venous insuff, hyperlipidemia, CARDIAC ARREST S/P LWC PACER with DEFIB Respiratory: COPD, SLEEP APNEA O2 3.5L NC @ BASELINE Gastrointestinal: constipation, peptic ulcer disease, EGD 08/10 showed numerous gastric and duodenal ulcers Hepatic: NONE Renal: benign prost hyperplasia, TEMPORORY DIALYSIS Musculoskeletal: gout, rheumatoid arthritis Psychiatric: NONE Endocrine: diabetes Blood Disorders: anemia Cancer(s): NONE CLIN NURSE SPEC/Reproductive: NONE History of MRSA: Yes History of VRE: No History of CDIFF: No Surgical History Surgical History: Left orchiectomy 20+ yrs ago pacemaker August 2016 right knee cartilage removal Past Family/Social History Family History Relations & Conditions if any FATHER Alzheimer's disease FHx: heart disease MOTHER, ; Cause: Heart disease. Psychosocial History Who Do You Live With? self Services at Home: Oxygen Primary Language: Khmer Smoking Status: Never Smoked ETOH Use: denies use Illicit Drug Use: denies illicit drug use Functional Ability ADLs Independent: dressing, eating, toileting, bathing. Ambulation: independent IADLs Independent: shopping, housework, finances, food prep, telephone, transportation , medication admin. Review of Systems Review of Systems Constitutional: Reports: malaise, weakness. Denies: chills, diaphoresis, fever, unexplained weight loss. EENTM: Reports: blurred vision. Denies: throat pain. Cardiovascular: Reports: peripheral edema. Denies: chest pain, orthopena, palpitations, syncope. Respiratory: Reports: cough, short of breath, sputum production, wheezing. Denies: hemoptysis, orthopnea. GI: Denies: no symptoms. Genitourinary: Denies: no symptoms. Musculoskeletal: Denies: no symptoms. Neurological/Psychological: Reports: headache. Denies: no symptoms. Hematologic/Endocrine: Denies: no symptoms. Exam & Diagnostic Data Last 24 Hrs of Vital Signs/I&O Vital Signs Date Time Temp Pulse Resp B/P B/P Pulse O2 O2 Flow FiO2 Mean Ox Delivery Rate 04/27 2007 93 Nasal 5.0L Cannula 04/27 1926 97.8 78 18 154/78 92 Nasal Cannula 04/27 1818 Nasal 5.0L Cannula 04/27 181 97.8 76 22 141/82 94 Nasal 5.0L Cannula 04/27 1815 93 Nasal 5.0L Cannula 04/27 1700 93 Nasal 5.0L Cannula 04/27 1652 72 18 146/94 92 Room Air Room Air 04/27 1610 79 90/55 04/27 1547 79 26 90/55 94 Non 100% ReBreather 04/27 1525 75 95 04/27 1506 95 Venti Mask 55% 04/27 1433 98.4 77 24 114/75 67 Room Air Room Air Intake & Output 04/27 1600 04/27 0800 04/27 0000 Intake Total 0 Output Total Balance 0 Intake, Oral 0 Patient 390 lb Weight Weight Reported by Patient Measurement Method Physical Exam General Appearance Alert, Oriented X3, Cooperative, Mild Distress Skin Bilateral lower extremities demonstrate significant edema and wheeping; patient has dressing to cover HEENT Atraumatic, PERRLA, EOMI, Mucous Membr. moist/pink Neck No JVD Cardiovascular Regular Rate, Normal S1, Normal S2 Lungs Wheezing demonstrated on auscultation; Patient cough on inspiration Abdomen Normal Bowel Sounds, Soft, No Tenderness Neurological Normal Speech, Strength at 5/5 X4 Ext, Normal Tone, Sensation Intact, Cranial Nerves 3-12 NL Extremities No Clubbing, No Cyanosis, Normal Pulses, Significant 3+ pitting edema in bilatera lower extremities; wheeping; bandaged Vascular Normal Pulses, Pulses Symmetrical Last 24 Hrs of Labs/Joaquim: Laboratory Tests 04/27/18 1530: Anion Gap 11, Estimated GFR 41 L, BUN/Creatinine Ratio 15.3, Glucose 168 H, Lactic Acid 0.7, Calcium 8.6, Magnesium 1.4 L, Troponin I 0.05, Pro-B- Natriuretic Pept 5600 H, CBC w Diff NO MAN DIFF REQ, RBC 4.59 L, MCV 85.9, MCH 27.3, MCHC 31.8 L, RDW 16.7 H, MPV 6.6 L, Gran % 69.6, Lymphocytes % 20.1 L, Monocytes % 8.9, Eosinophils % 1.3, Basophils % 0.1, Absolute Granulocytes 6.2, Absolute Lymphocytes 1.8, Absolute Monocytes 0.8 H, Absolute Eosinophils 0.1, Absolute Basophils 0 04/27/18 1500: pH 7.26 *L, pCO2 81 *H, pO2 94, HCO3 35 H, ABG O2 Sat (Measured) 95.0 L, Carboxyhemoglobin 0.7 L, O2 Concentration % .55, O2 Delivery Method V/M, Phlebotomy Draw Site RIGHT BRACHIAL Assessment/Plan Assessment: A/P: 63-year-old morbidly obese gentleman with medical history significant for HFrEF (25-30%) nonischemic cardiomyopathy s/p dual chamber PPM/AICD h/o cardiac arrest ), afib (on eliquis), COPD (on 4 L baseline o2), JORY (not on CPAP), DM, CKD, HLD , GERD/PUD, chronic lower extremity edema with venous stasis changes, gout s/p left foot debridement, and multiple admissions for dyspnea secondary to COPD/CHF exacerbation admitted to [facility] for increasing shortness of breath for 2 days. 1. 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 A-FIB ON ELIQUIS 4. JORY NOT ON CPAP 5. CHRONIC LOWER EXTREMITY EDEMA 6. TYPE 2 DM PLAN: -Patient to be admitted to the telemtry unit -Vitals to be taken every shift -TRC nebulization. Patients initial ABG shows respiratory acidosis. He had refused BiPAP on nonrebreather mask. -First sets of troponins were negative with no significant EKG changes; repeat one troponin and EKG. No cardiology consult as of now. -Continue home medication regimen including Atrial Fibrillation medications ( Amiodarone, Eliquis) and Coreg, Losartan, Metoprolol -Hold all medications that are p.o. hypoglycemic drugs. Accu-Checks and NovoLog sliding scale for DM2. -Strict Is and Os -Wound care for stage 1 rioght legt ulcer (1cm) with no discharge/pus. DVT ppx: on Eliquis Diet: 2 g salt restriction Code Status: Full but DNI As Ranked By This Provider Problem List: 1. CHF exacerbation 2. Type 2 diabetes mellitus 3. COPD exacerbation 4. CHF (congestive heart failure) 5. COPD exacerbation Core Measures/Misc (07/12) Sepsis (View protocol) Sepsis Present: No If YES complete Sepsis Event Note If YES complete Sepsis Event Note Darryl HARPER,Vale 04/27/18 1705: Core Measures/Misc (07/12) Acute Coronary Syndrome ACS Diagnosis: No Congestive Heart Failure Congestive Heart Failure Diagnosis No Cerebrovascular Accident CVA/TIA Diagnosis: No VTE (View Protocol) VTE Risk Factors Age>40 No Mechanical VTE Prophylaxis d/t Other No VTE Pharm Prophylaxis d/t Other Sepsis (View protocol) Sepsis Present: No If YES complete Sepsis Event Note If YES complete Sepsis Event Note Resident Review Statement Resident Statement: examined this patient, discussed with international coordinator, agreed with international coordinator Other Findings: 63-year-old morbidly obese gentleman with medical history significant for HFrEF (25-30%) nonischemic cardiomyopathy s/p dual chamber PPM/AICD h/o cardiac arrest ), afib (on eliquis), COPD (on 4 L baseline o2), JORY (not on CPAP), DM, CKD, HLD , GERD/PUD, chronic lower extremity edema with venous stasis changes, gout s/p left foot debridement, and multiple admissions for dyspnea secondary to COPD/CHF exacerbation admitted to [facility] for SOB. Patient has been frequently admitted for the past 1 year for COPD/CHF exacerbation. Patient lives in his car with his dog using 4 L of oxygen. According to him for the past 2 days because of increased humidity he felt more short of breath than usual. He tried to use the air conditioning in his car but that did not help. He also mentioned that he has chest pain whenever he coughed heavily with white to yellow sputum production. He denied fever, chills, abdominal pain, nausea, vomiting, orthopnea, paroxysmal nocturnal dyspnea, palpitation, constipation, diarrhea. He mentioned that he has been eating and drinking well lately. Today he went to CHF clinic and had 40 of IV Lasix and he found that his saturation was in 70s and hence sent him here for further evaluation. When he came to ED his saturation was found to be 67 and he was using accessory muscles of respiration and hands decided to put him on BiPAP. Patient was on BiPAP for 10 minutes and then he pulled off the mask saying that he is not comfortable using the BiPAP. Later he was put on nonrebreather mask. When we were interviewing patient was able to talk in full sentences. He also mentioned that he goes to vein clinic in [place] and got vein clipping twice for his right leg and once for his left leg. His 6th grade teacher is Dr. George and his client relations representative is Dr. Dasilva. His last visit to Dr. George was last week. Admission labs Blood gas PH 7.26, PCO2 81, PO2 94, bicarbonate 35, sodium 145, potassium 3.9, BUN 26, creatinine 1.7 [baseline creatinine 1.5], magnesium 1.4, calcium 8.6, proBNP 5600 ED treatment Albuterol nebulization, DO tropine, nitroglycerin 0.4 mg once, methylprednisone IV 125 mg once Imaging Chest x-ray Central vascular congestion has slightly progressed. Cardiomegaly. On examination pt was sitting in the bed saturating 90% on NRB mask. appears to be mildly dyspnec.at present not using his accessory muscles of respiration. he is morbidly obese. both legs wrapped in BON wraps. He has 1x1 cm wound in the right leg at the level of mid piña.. It looks more likely a skin tear.election assistant pus/ blood dischrage. CVS-s1s2 no murmur. RS- b/l wheeze heard abd -obese. no tenderness/organomegaly felt. CHARTER PILOT-strength 4/5 and cranial nerve-3-12 intact. During the interview he was changed fron NRB mask to NC 4l. Assessment and plan 1. Acute hypoxic hypercarbic respiratory failure secondary due to COPD exacerbation 2.nonischemic cardiomyopathy s/p dual chamber PPM/AICD h/o cardiac arrest) 3. A. fib on Eliquis 4. JORY not on CPAP 5. Chronic lower extremity edema 6. Type 2 diabetes * Admitted to telemetry * Vitals every shift. * TRC nebulization. Patient's ABG shows respiratory acidosis. Patient refused BiPAP and is on nonrebreather mask. Keep a low threshold for ICU transfer in case of worsening of his respiratory status. * First set of troponins negative. No EKG changes. We will repeat one more troponin and EKG. At this point he does not need a cardiology consult. * We will continue all his home medication including amiodarone, Eliquis, Coreg, losartan, metoprolol. * Hold all p.o. hypoglycemic drugs. Accu-Cheks and NovoLog sliding scale insulin for his type 2 diabetes. * We will do daily weights and strict I's and O's. * Right leg he has 1 x 1 cm ulcer. No evidence of any pus discharge. We will get wound care consult tomorrow. It looks smore of a skin tear. * 2 g salt restriction. * CODE STATUS- DNR/DNI * DVT prophylaxis-on Eliquis * Diet-heart healthy diet. Home medications 1. Acetaminophen 500 as needed 2. Albuterol inhaler 3. Amiodarone 200 daily 4. Eliquis 5 mg twice daily 5. Atorvastatin 10 mg 6. Coreg 25 mg half tablet twice daily 7.ULORIC 40 mg daily 8. Ferrous sulfate 325 1 daily 9. Advair twice daily 10. Lasix 40 twice daily 11. Gabapentin 400 3 times daily 12. Glimepiride 1 mg twice daily 13. Atarax 2 tabs 50 twice daily 14. Metoprolol thousand twice daily 15. Losartan 25 daily 16. Singulair 10 mg twice daily 17. UMECLIDINIUM Ingris Membreno 04/27/18 1807: General Information and HPI Allergies/Medications Home Med list Acetaminophen 500 MG TABLET 1 TAB PO DAILY PRN PAIN PLEASE ALTERNATE WITH NAPROXEN FOR PAIN Albuterol Sulfate (Proair Hfa) 90 MCG HFA.AER.AD 2 PUF INH Q4-6 PRN PRN COPD (Reported) Amiodarone (Cordarone) 200 MG TAB 1 TAB PO DAILY HEART RATE Ammonium Lactate 12 % CREAM..G. 12 % TP BID foot fissures . Apixaban (Eliquis) 5 MG TABLET 1 TAB PO BID AFIB Atorvastatin Calcium 10 MG TABLET 1 TAB PO DAILY CHOLESTEROL Carvedilol (Coreg) 25 MG TABLET 0.5 TAB PO BID HIGH BLOOD PRESSURE (Reported) Dicyclomine HCl 10 MG CAPSULE 1 CAP PO TID ABDOMINAL PAIN Febuxostat (Uloric) 40 MG TABLET 40 MG PO DAILY Gout Ferrous Sulfate 325 MG (65 MG IRON) TABLET 1 TAB PO DAILY anemia Fluticasone/Salmeterol (Advair 500-50 Diskus) 500 MCG-50 MCG/DOSE BLST.W.DEV 1 PUF INH BID COPD (Reported) Furosemide (Lasix) 40 MG TABLET 40 MG PO BID Fluid Overload Gabapentin 400 MG CAPSULE 1 CAP PO TID NEUROPATHY (Reported) Glimepiride 1 MG TABLET 1 TAB PO BID DM (Reported) Guaifenesin (Guaifenesin ER) 600 MG TAB.ER.12H 1 TAB PO BID CONGSETION Hydroxyzine Hydrochloride (Atarax) 50 MG TABLET 2 TAB PO BID MUCUS (Reported) Ipratropium/Albuterol Sulfate (Combivent Respimat Inhal Hardin) 20 MCG-100 MCG/ ACTUATION MIST.INHAL 2 PUFF INH BID copd (Reported) Losartan Potassium 25 MG TABLET 25 MG PO DAILY heart health . Metformin HCl (Glucophage) 1,000 MG TABLET 1 TAB PO BID DM (Reported) Montelukast Sodium (Singulair) 10 MG TABLET 1 TAB PO BID copd (Reported) Oxymetazoline HCl (Nasal Decongestant) 0.05 % SPRAY 2 SPRAY JOAQUIN BID PRN NASAL CONGESTION Prednisone 10 MG TABLET 1 TAB PO SI COPD TAKE 3 TABLETS FOR 3 DAYS TAKE 2 TABLETS FOR 3 DAYS TAKE 1 TABLET FOR 3 DAYS THEN STOP PREDNISONE Umeclidinium Silas (Incruse Ellipta) 62.5 MCG/ACTUATION BLST.W.DEV 1 PUFF INH DAILY COPD (Reported) Core Measures/Misc (07/12) Sepsis (View protocol) If YES complete Sepsis Event Note If YES complete Sepsis Event Note Attending MD Review Statement Attending Statement Attending MD Statement: examined this patient, discuss w/resident/PA/CHEMICALS FERMENTATION OPERATOR, agreed w/resident/PA/CHEMICALS FERMENTATION OPERATOR, reviewed EMR data (avail), discussed with case mgmt Attending Assessment/Plan: 63-year-old morbidly obese male who lives in a van with his dog and significant PMH of HFrEF (25-30%) nonischemic cardiomyopathy s/p dual chamber PPM/AICD h/o cardiac arrest), afib (on eliquis), COPD (on 4 L baseline o2), JORY (not on CPAP) , DM, CKD, HLD, GERD/PUD, chronic lower extremity edema with venous stasis changes following up with Vein clinic in [place], gout s/p left foot debridement, and multiple admissions for dyspnea secondary to COPD/CHF exacerbation with recent admission to [facility] 04/03/18-04/11/18 for shortness of breath and chest pain and was treated for chf and copd exac. Pt was seen at CHF clinic for his regular visit for follow up and was found to be hypoxic with oxygen saturation around 60% and was give a dose of iv lasix and was told to go to ER. Pt did not want to go by EMS. He waited for his son to picker / packer his dog and then he drove to ER. Pt being place on telemetry for observation. Acute hypoxic/hypercapneic resp failure on chronic resp failure. - In ER pt on ABG was found to be in hypoxic hypercapneic resp failure and was put on BIPAP but pt did not tolerate it and used it only for 10 minutes. Pt was given neb treatments and was also given IV solumedrol 125mg. Pt currently sautrating ok but still has wheezing on exam and has chronic lower extremity edema. Not hearing much crackles on lung exam. Will cont him on iv steroids. will start on 40mg iv q8h and cont TRC nebs and his home copd meds. will get pulm consult in am. Pt is DNI and is refusing BIPAP. Chronic systolic CHF- does not appear to be in acute chf exac at present. will monitor him on tele and will check another trop. will cont his home dosage of diuretics. CKD- slightly worse cr of 1.7. cont to monitor renal functions d/w pt the care plan.
[2018-04-27 19:26] VITALS: BP 154/78
[2018-04-27 22:24] VITALS: BP 148/80
[2018-04-28 06:35] VITALS: BP 130/72
[2018-04-28 07:35] LABS: ABSOLUTE BASOPHIL COUNT 0 /CUMM (0.0-0.2); ABSOLUTE EOSINOPHIL COUNT 0 /CUMM (0.0-0.7); ABSOLUTE GRANULOCYTE CT 8.3 /CUMM (1.4-6.5); ABSOLUTE LYMPH COUNT 0.7 /CUMM (1.2-3.4); ABSOLUTE MONOCYTE COUNT 0.2 /CUMM (0.10-0.60); BASOPHIL % 0.1 % (0.0-2.0); EOSINOPHIL % 0 % (0-5); GRANULOCYTE % 90.2 % (42.2-75.2); HEMATOCRIT 41.4 % (42-52); MEAN CORPUSCULAR HGB 27.3 PG (27.0-31.0); MEAN CORPUSCULAR HGB CONC 31.1 G/DL (33.0-37.0); MEAN CORPUSCULAR VOLUME 87.5 FL (80.0-94.0); MEAN PLATELET VOLUME 6.9 FL (7.4-10.4); PLATELET COUNT 190 /CUMM (130-400); RBC DISTRIBUTION WIDTH 16.9 % (11.5-14.5); RED BLOOD CELL CT 4.73 /CUMM (4.70-6.10); WHITE BLOOD CELL COUNT 9.2 /CUMM (4.8-10.8)
--- NOTE | 2018-04-28 08:01 | PN- Housestaff ---
Subjective Follow-up For: COPD Exacerbation CHF Review of Systems Constitutional: Denies: see HPI. Cardiovascular: Denies: chest pain. Respiratory: Reports: cough, short of breath, wheezing. Denies: hemoptysis. Objective Last 24 Hrs of Vital Signs/I&O Vital Signs Date Time Temp Pulse Resp B/P B/P Pulse O2 O2 Flow FiO2 Mean Ox Delivery Rate 04/28 0946 72 130/72 07 0946 72 130/72 07 0945 72 130/72 04/28 0839 93 Nasal 5.0L Cannula 04/28 0635 97.7 72 20 130/72 93 Nasal 5.0L Cannula 04/28 0023 75 140/78 07 0022 78 140/76 07 0000 Nasal 5.0L Cannula 04/27 2224 98.3 78 78 148/80 93 Nasal Cannula 04/27 2108 77 148/80 04/27 2007 93 Nasal 5.0L Cannula 04/27 1926 97.8 78 18 154/78 92 Nasal Cannula 04/27 1818 Nasal 5.0L Cannula 04/27 1818 97.8 76 22 141/82 94 Nasal 5.0L Cannula 04/27 1815 93 Nasal 5.0L Cannula 04/27 1700 93 Nasal 5.0L Cannula 04/27 1652 72 18 146/94 92 Room Air Room Air 04/27 1610 79 90/55 07/03 1547 79 26 90/55 94 Non 100% ReBreather 04/27 1525 75 95 07/03 1506 95 Venti Mask 55% 04/27 1433 98.4 77 24 114/75 67 Room Air Room Air Intake & Output 04/28 1600 04/28 0800 04/28 0000 Intake Total 120 120 Output Total Balance 120 120 Intake, Oral 120 120 Patient 390 lb Weight Physical Exam General Appearance: Alert, Oriented X3, Moderate Distress Skin: Lower extremity venous insufficiency/edema; 4+ pitting edema; wheeping; bandaged HEENT: Atraumatic, PERRLA, EOMI Neck: No JVD Cardiovascular: Normal S1, Normal S2 Lungs: Wheezing/rales appreciated on auscultation Abdomen: Normal Bowel Sounds, Soft, No Tenderness Neurological: Normal Speech, Strength at 5/5 X4 Ext, Normal Tone, Cranial Nerves 3-12 NL Extremities: Normal Pulses, Signficant bilateral lower extremity +4 pitting edema Vascular: Normal Pulses, Pulses Symmetrical Current Medications: Current Medications Sig/Keaton Start time Last Medication Dose Route Stop Time Status Admin Albuterol Sulfate 3 ML TID 04/28 0900 AC 04/28 INH 0835 Albuterol Sulfate 2 PUF Q4-6 PRN PRN 04/27 1745 AC INH Albuterol Sulfate 3 ML ONCE ONE 04/27 1730 DC 04/27 INH 04/27 1731 1814 Albuterol Sulfate 3 ML ONCE ONE 04/27 1500 DC 04/27 INH 04/27 1501 1506 Amiodarone HCl 200 MG DAILY 04/27 1745 AC 04/28 PO 0946 Apixaban 5 MG BID 04/27 2100 AC 04/28 PO 0945 Atorvastatin Calcium 10 MG 1700 04/27 1746 AC 04/27 PO 2107 Budesonide/ 2 PUF BID 04/27 1800 AC 04/28 Formoterol Fumarate INH 0947 Carvedilol 12.5 MG BID 04/27 2100 AC 04/28 PO 0945 Enalaprilat 1.25 MG ONCE ONE 04/27 1500 DC IV 04/27 1501 Enalaprilat 0 .STK-MED ONE 04/27 1500 DC IV Furosemide 40 MG BID 04/28 0900 AC 04/28 PO 0945 Gabapentin 400 MG TID 04/27 1748 AC 04/28 PO 0947 Guaifenesin 600 MG BID 04/27 2100 AC 04/28 PO 0945 Hydroxyzine HCl 100 MG BID 04/27 2100 AC 04/28 PO 0945 Insulin Aspart 0 TIDAC 04/28 0800 AC SC Ipratropium [place] 2.5 ML ONCE ONE 04/27 1500 DC 04/27 INH 04/27 1501 1506 Losartan Potassium 25 MG DAILY 04/27 2100 AC 04/28 PO 0946 Methylprednisolone 40 MG Q8 04/27 2200 AC 04/28 IV 0537 Methylprednisolone 125 MG ONCE ONE 04/27 1500 DC 04/27 IV 04/27 1501 1610 Methylprednisolone 0 .STK-MED ONE 04/27 1500 DC .ROUTE Montelukast Sodium 10 MG AT BEDTIME 04/27 2100 AC 04/28 PO 0022 Nitroglycerin 0 .STK-MED ONE 04/27 1501 DC SL Nitroglycerin 0.4 MG ONCE ONE 04/27 1500 DC SL 04/27 1501 Oxymetazoline HCl 2 SPRAY BID PRN 04/27 1800 AC JOAQUIN Tiotropium [place] 1 PUF DAILY 04/27 1800 AC 04/28 INH 0945 Last 24 Hrs of Lab/Joaquim Results Last 24 Hrs of Labs/Mics: Laboratory Tests 04/28/18 1150: pH 7.20 *L, pCO2 100.9 *H, pO2 81, HCO3 39 H, ABG O2 Sat (Measured) 94.0 L, P- 50 (Temp Corrected) Y, Carboxyhemoglobin 1.1 L, O2 Concentration % 5L, Temperature 97.7, O2 Delivery Method N/C, Phlebotomy Draw Site RIGHT RADIAL 04/28/18 0640: Anion Gap 11, Estimated GFR 56 L, BUN/Creatinine Ratio 17.7, CBC w Diff MAN DIFF ORDERED, RBC 4.73, MCV 87.5, MCH 27.3, MCHC 31.1 L, RDW 16.9 H, MPV 6.9 L, Gran % 90.2 H, Lymphocytes % 7.5 L, Monocytes % 2.2, Eosinophils % 0, Basophils % 0.1, Absolute Granulocytes 8.3 H, Absolute Lymphocytes 0.7 L, Absolute Monocytes 0.2, Absolute Eosinophils 0, Absolute Basophils 0, Platelet Estimate VERIFIED BY SMEAR, Basophilic Stippling 1+, Anisocytosis 1+, Stomatocytes 1+ 04/27/18 2200: Troponin I 0.05 04/27/18 1530: Anion Gap 11, Estimated GFR 41 L, BUN/Creatinine Ratio 15.3, Glucose 168 H, Lactic Acid 0.7, Calcium 8.6, Magnesium 1.4 L, Troponin I 0.05, Pro-B- Natriuretic Pept 5600 H, CBC w Diff NO MAN DIFF REQ, RBC 4.59 L, MCV 85.9, MCH 27.3, MCHC 31.8 L, RDW 16.7 H, MPV 6.6 L, Gran % 69.6, Lymphocytes % 20.1 L, Monocytes % 8.9, Eosinophils % 1.3, Basophils % 0.1, Absolute Granulocytes 6.2, Absolute Lymphocytes 1.8, Absolute Monocytes 0.8 H, Absolute Eosinophils 0.1, Absolute Basophils 0 04/27/18 1500: pH 7.26 *L, pCO2 81 *H, pO2 94, HCO3 35 H, ABG O2 Sat (Measured) 95.0 L, Carboxyhemoglobin 0.7 L, O2 Concentration % .55, O2 Delivery Method V/M, Phlebotomy Draw Site RIGHT BRACHIAL Assessment/Plan Assessment: A/P: 63-year-old morbidly obese gentleman with medical history significant for HFrEF (25-30%) nonischemic cardiomyopathy s/p dual chamber PPM/AICD h/o cardiac arrest ), afib (on eliquis), COPD (on 3-4 L baseline o2), JORY (not on CPAP), DM, CKD, HLD, GERD/PUD, chronic lower extremity edema with venous stasis changes, gout s/ p left foot debridement, and multiple admissions for dyspnea secondary to COPD/ CHF exacerbation admitted to [facility] for increasing shortness of breath for 2 days. COPD EXACERBATION * Patient seen by Dr. Ayala this morning. He continuously denies BiPAP treatment. Recent ABG was 7.20, 100.9, 81, 39. Patient has been educated/ discussed about the consequences of refusing BiPAP treatment with ABGs. Patient has clear judgement and capacity to deny this treatment which has been consistent with previous admissions. He is DNR/DNI. No further ABGs will be done. * Patient has JORY not on CPAP * Continue monitoring on telemetry unit; initial troponins/EKGs insignificant so need for cardiology consult as of no * Patient given Solumedrol 40mg 18; Proventil; Symbicort 2 Puf BID; CHF/A-FIB * patient has history of HFrEF (25-30%); proBNP 5600 on admission; troponin 0.05 on admssion * Patient on Lasix 40mg BID * Strict Is and Os * Continue home A-Fib regimen (Eliquis, Amiodarone) * Continue with Coreg, Losartan and Metoprolol CKD * Cr: 1.3; BUN: 23; continue to monitor; CHRONIC LOWER EXTREMITY EDEMA * Right leg he has 1 x 1 cm ulcer. No evidence of any pus discharge. We will get wound care consult. * Patient follows up with Vascular Surgeon for vein clipping in [place], CT DIABETES MELLITUS * Accu-Checks; Novolog TIDAC DVT PPx: Patient on Eliquis for Atrial Fibrillation Diet: 2g salt restriction Code Status: DNR/DNI; patient refusing BiPAP treatment as well despite abnormal ABG; He understands his condition and the consequences of no treatment. Problem List: 1. CHF exacerbation 2. COPD (chronic obstructive pulmonary disease) 3. Type 2 diabetes mellitus 4. DNI (do not intubate) 5. DNR no code (do not resuscitate) Pain Ratin Pain Location: N/A Pain Goal: Remain pain free Pain Plan: As per pain pathway Tomorrow's Labs & Rationales: CBC BEP DVT/Prophylaxis: pharmacological
--- NOTE | 2018-04-28 12:09 | Cons- Pulmonary ---
General Information and HPI Consulting Request Date of Consult: 04/28/18 Requested By: Dr. Membreno Reason for Consult: hypercarbic respiratory failure Source of Information: patient Exam Limitations: no limitations History of Present Illness: 63 year old man. Consultation for acute hypercarbic respiratory failure. Known to the pulmonary service. Primary top spotter Dr. Puente. Hx of OHS/JORY has declined PAP therapy previously. COPD history on 3LNC. Pt admitted for exacerbation of COPD/CHF. He is awake however somewhat lethargic. He has had an ABG drawn showing a ph of 7.2 and a pco2 of 100, worsened from 80' s. He has historically declined bipap or any NIV. He is DNR/DNI. He is clear in his wishes and consistent from previous conversations regarding not wanting to use any PAP tx knowing it can result in . He is clear and is capable of making decisions. He is otherwise comfortable without chest pain, no n/v/d/c, some CARRION and at rest. He wants to eat his lunch. Allergies/Medications Allergies: Coded Allergies: No Known Allergies (01/08/18) Home Med List: Acetaminophen 500 MG TABLET 1 TAB PO DAILY PRN PAIN PLEASE ALTERNATE WITH NAPROXEN FOR PAIN Albuterol Sulfate (Proair Hfa) 90 MCG HFA.AER.AD 2 PUF INH Q4-6 PRN PRN COPD (Reported) Amiodarone (Cordarone) 200 MG TAB 1 TAB PO DAILY HEART RATE Ammonium Lactate 12 % CREAM..G. 12 % TP BID foot fissures . Apixaban (Eliquis) 5 MG TABLET 1 TAB PO BID AFIB Atorvastatin Calcium 10 MG TABLET 1 TAB PO DAILY CHOLESTEROL Carvedilol (Coreg) 25 MG TABLET 0.5 TAB PO BID HIGH BLOOD PRESSURE (Reported) Dicyclomine HCl 10 MG CAPSULE 1 CAP PO TID ABDOMINAL PAIN Febuxostat (Uloric) 40 MG TABLET 40 MG PO DAILY Gout Ferrous Sulfate 325 MG (65 MG IRON) TABLET 1 TAB PO DAILY anemia Fluticasone/Salmeterol (Advair 500-50 Diskus) 500 MCG-50 MCG/DOSE BLST.W.DEV 1 PUF INH BID COPD (Reported) Furosemide (Lasix) 40 MG TABLET 40 MG PO BID Fluid Overload Gabapentin 400 MG CAPSULE 1 CAP PO TID NEUROPATHY (Reported) Glimepiride 1 MG TABLET 1 TAB PO BID DM (Reported) Guaifenesin (Guaifenesin ER) 600 MG TAB.ER.12H 1 TAB PO BID CONGSETION Hydroxyzine Hydrochloride (Atarax) 50 MG TABLET 2 TAB PO BID MUCUS (Reported) Ipratropium/Albuterol Sulfate (Combivent Respimat Inhal [place]) 20 MCG-100 MCG/ ACTUATION MIST.INHAL 2 PUFF INH BID copd (Reported) Losartan Potassium 25 MG TABLET 25 MG PO DAILY heart health . Metformin HCl (Glucophage) 1,000 MG TABLET 1 TAB PO BID DM (Reported) Montelukast Sodium (Singulair) 10 MG TABLET 1 TAB PO BID copd (Reported) Oxymetazoline HCl (Nasal Decongestant) 0.05 % SPRAY 2 SPRAY JOAQUIN BID PRN NASAL CONGESTION Umeclidinium [place] (Incruse Ellipta) 62.5 MCG/ACTUATION BLST.W.DEV 1 PUFF INH DAILY COPD (Reported) Current Medications: Current Medications Sig/Keaton Start time Last Medication Dose Route Stop Time Status Admin Albuterol Sulfate 3 ML TID 04/28 0900 AC 04/28 INH 0835 Albuterol Sulfate 2 PUF Q4-6 PRN PRN 04/27 1745 AC INH Albuterol Sulfate 3 ML ONCE ONE 04/27 1730 DC 04/27 INH 04/27 1731 1814 Albuterol Sulfate 3 ML ONCE ONE 04/27 1500 DC 04/27 INH 04/27 1501 1506 Amiodarone HCl 200 MG DAILY 04/27 1745 AC 04/28 PO 0946 Apixaban 5 MG BID 04/27 2100 AC 04/28 PO 0945 Atorvastatin Calcium 10 MG 1700 04/27 1746 AC 04/27 PO 2107 Budesonide/ 2 PUF BID 04/27 1800 AC 04/28 Formoterol Fumarate INH 0947 Carvedilol 12.5 MG BID 04/27 2100 AC 04/28 PO 0945 Enalaprilat 1.25 MG ONCE ONE 04/27 1500 DC IV 04/27 1501 Enalaprilat 0 .STK-MED ONE 04/27 1500 DC IV Furosemide 40 MG BID 04/28 0900 AC 04/28 PO 0945 Gabapentin 400 MG TID 04/27 1748 AC 04/28 PO 0947 Guaifenesin 600 MG BID 04/27 2100 AC 04/28 PO 0945 Hydroxyzine HCl 100 MG BID 04/27 2100 AC 04/28 PO 0945 Insulin Aspart 0 TIDAC 04/28 0800 AC SC Ipratropium [place] 2.5 ML ONCE ONE 04/27 1500 DC 04/27 INH 04/27 1501 1506 Losartan Potassium 25 MG DAILY 04/27 2100 AC 04/28 PO 0946 Methylprednisolone 40 MG Q8 04/27 2200 AC 04/28 IV 0537 Methylprednisolone 125 MG ONCE ONE 04/27 1500 DC 04/27 IV 04/27 1501 1610 Methylprednisolone 0 .STK-MED ONE 04/27 1500 DC .ROUTE Montelukast Sodium 10 MG AT BEDTIME 04/27 2100 AC 04/28 PO 0022 Nitroglycerin 0 .STK-MED ONE 04/27 1501 DC SL Nitroglycerin 0.4 MG ONCE ONE 04/27 1500 DC SL 04/27 1501 Oxymetazoline HCl 2 SPRAY BID PRN 04/27 1800 AC JOAQUIN Tiotropium [place] 1 PUF DAILY 04/27 1800 AC 04/28 INH 0945 Review of Systems Comments 18 point Review of Systems performed. Positive and negative pertinent findings are deliniated in the HPI. Otherwise the ROS is negative. Past History Travel History Traveled to [place] past 21 day No Medical History Blood Transfusion Hx: No Neurological: NONE EENT: NONE Cardiovascular: AFIB, CAD, cardiomyopathy, CHF, chronic venous insuff, hyperlipidemia, CARDIAC ARREST S/P LWC PACER with DEFIB Respiratory: COPD, SLEEP APNEA O2 3.5L NC @ [facility]EL[facility] Gastrointestinal: constipation, peptic ulcer disease, EGD 08/10 showed numerous gastric and duodenal ulcers Hepatic: NONE Renal: benign prost hyperplasia, TEMPORORY DIALYSIS Musculoskeletal: gout, rheumatoid arthritis Psychiatric: NONE Endocrine: diabetes Blood Disorders: anemia Cancer(s): NONE SILK WEAVER/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 Psychosocial History Who Do You Live With? self Services at Home: Oxygen Primary Language: Czech Smoking Status: Never Smoked ETOH Use: denies use Illicit Drug Use: denies illicit drug use Functional Ability ADLs Independent: dressing, eating, toileting, bathing. Ambulation: independent IADLs Independent: shopping, housework, finances, food prep, telephone, transportation , medication admin. Exam & Diagnostic Data Last 24 Hrs of Vital Signs/I&O Vital Signs Date Time Temp Pulse Resp B/P B/P Pulse O2 O2 Flow FiO2 Mean Ox Delivery Rate 04/28 0946 72 130/72 07/ 0946 72 130/72 07 0945 72 130/72 04/28 0839 93 Nasal 5.0L Cannula 04/28 0635 97.7 72 20 130/72 93 Nasal 5.0L Cannula 04/28 0023 75 140/78 04/28 0022 78 140/76 07 0000 Nasal 5.0L Cannula 04/27 2224 98.3 78 78 148/80 93 Nasal Cannula 04/27 2108 77 148/80 04/27 2007 93 Nasal 5.0L Cannula 04/27 1926 97.8 78 18 154/78 92 Nasal Cannula 04/27 1818 Nasal 5.0L Cannula 04/27 1818 97.8 76 22 141/82 94 Nasal 5.0L Cannula 04/27 1815 93 Nasal 5.0L Cannula 04/27 1700 93 Nasal 5.0L Cannula 04/27 1652 72 18 146/94 92 Room Air Room Air 04/27 1610 79 90/55 07 1547 79 26 90/55 94 Non 100% ReBreather 04/27 1525 75 95 0703 1506 95 Venti Mask 55% 04/27 1433 98.4 77 24 114/75 67 Room Air Room Air Intake & Output 04/28 1600 04 0800 07/ 0000 Intake Total 120 120 Output Total Balance 120 120 Intake, Oral 120 120 Patient 390 lb Weight Physical Exam Other Physical Findings: gen awake and alert heent ncat cvs s1, s2 lungs bilateral rhonchi abd obese, bs+ ext chronic venous changes Last 48 Hrs of Labs/Joaquim: Laboratory Tests 04/28/18 1150: pH 7.20 *L, pCO2 100.9 *H, pO2 81, HCO3 39 H, ABG O2 Sat (Measured) 94.0 L, P- 50 (Temp Corrected) Y, Carboxyhemoglobin 1.1 L, O2 Concentration % 5L, Temperature 97.7, O2 Delivery Method N/C, Phlebotomy Draw Site RIGHT RADIAL 04/28/18 0640: Anion Gap 11, Estimated GFR 56 L, BUN/Creatinine Ratio 17.7, CBC w Diff MAN DIFF ORDERED, RBC 4.73, MCV 87.5, MCH 27.3, MCHC 31.1 L, RDW 16.9 H, MPV 6.9 L, Gran % 90.2 H, Lymphocytes % 7.5 L, Monocytes % 2.2, Eosinophils % 0, Basophils % 0.1, Absolute Granulocytes 8.3 H, Absolute Lymphocytes 0.7 L, Absolute Monocytes 0.2, Absolute Eosinophils 0, Absolute Basophils 0, Platelet Estimate VERIFIED BY SMEAR, Basophilic Stippling 1+, Anisocytosis 1+, Stomatocytes 1+ 04/27/18 2200: Troponin I 0.05 04/27/18 1530: Anion Gap 11, Estimated GFR 41 L, BUN/Creatinine Ratio 15.3, Glucose 168 H, Lactic Acid 0.7, Calcium 8.6, Magnesium 1.4 L, Troponin I 0.05, Pro-B- Natriuretic Pept 5600 H, CBC w Diff NO MAN DIFF REQ, RBC 4.59 L, MCV 85.9, MCH 27.3, MCHC 31.8 L, RDW 16.7 H, MPV 6.6 L, Gran % 69.6, Lymphocytes % 20.1 L, Monocytes % 8.9, Eosinophils % 1.3, Basophils % 0.1, Absolute Granulocytes 6.2, Absolute Lymphocytes 1.8, Absolute Monocytes 0.8 H, Absolute Eosinophils 0.1, Absolute Basophils 0 04/27/18 1500: pH 7.26 *L, pCO2 81 *H, pO2 94, HCO3 35 H, ABG O2 Sat (Measured) 95.0 L, Carboxyhemoglobin 0.7 L, O2 Concentration % .55, O2 Delivery Method V/M, Phlebotomy Draw Site RIGHT BRACHIAL Assessment/Plan Impression/Plan: Impression 63 year old man * acute hypercarbic respiratory failure in the setting of previous non-use per pt wishes of PAP tx for JORY/OHS * acute exacerbation of COPD Plan He has had an ABG drawn showing a ph of 7.2 and a pco2 of 100, worsened from 80' s. He has historically declined bipap or any NIV. He is DNR/DNI. He is clear in his wishes and consistent from previous conversations regarding not wanting to use any PAP tx knowing it can result in . He is clear and is capable of making decisions. He is otherwise comfortable without chest pain, no n/v/d/c, some CARRION and at rest. He wants to eat his lunch. - no further abgs at this time - DNR/DNI - pt declines bipap use - he specifically also requested that if he is unconcious to not put it on him - continue solumedrol - trc/nebs - can continue discussions regarding this - he is not to be moved to the ICU DVT prophylaxis at all times Consult Acknowledgment - Thank you for your consult request.
[2018-04-28 14:19] VITALS: BP 120/60
[2018-04-28 21:35] VITALS: BP 120/64
--- NOTE | 2018-04-29 06:52 | PN- Housestaff ---
Linda Watson 04/29/18 0652: Subjective Follow-up For: COPD Exacerbation CHF Tele-Events Since Last Visit: PAced, 75 HR Subjective: Patient seen and examined at bedside today. OVernight patient was given percocet and tylenol X1 for leg pain due to chronic lower extremity edema and venous insufficiency. Today patient continues to have shortness of breath on 4L NC saturating at 98%. Patients code status was confirmed that he is DNI but wants to be resuscitated if needed. Patient agrees to attempt the BiPAP when he can and agrees to ABGs. He denies any signficant chest pain or palpitations today. He does have right foot wounds which he is being seen by wound care. Review of Systems Constitutional: Denies: see HPI. Objective Last 24 Hrs of Vital Signs/I&O Vital Signs Date Time Temp Pulse Resp B/P B/P Pulse O2 O2 Flow FiO2 Mean Ox Delivery Rate 04/29 1018 75 124/74 04/29 1018 75 124/74 04/29 1018 75 124/74 04/29 0846 94 Nasal 3.5L Cannula 04/29 0700 98.4 75 18 124/74 94 Nasal Cannula 04/29 0042 75 98 07/05 0000 92 Nasal 4.0L Cannula 04/28 2135 98.1 74 18 120/64 92 Nasal Cannula 04/28 2058 74 120/84 04/28 1913 93 Nasal 4.0L Cannula 04/28 1640 93 04/28 1419 97.1 74 20 120/60 94 BIPAP Intake & Output 04/29 1600 07/05 0800 07/05 0000 Intake Total 600 600 Output Total 450 Balance 600 150 Intake, Oral 600 600 Output, Urine 450 Physical Exam General Appearance: Alert, Oriented X3, Cooperative, Mild Distress Skin: Right lower extremity wound below big toe; light blood; Patient being seen by wound care HEENT: Atraumatic, PERRLA, EOMI Cardiovascular: Regular Rate, Normal S1, Normal S2, No Murmurs Lungs: wheezing/ronchi bilaterally on auscultation Abdomen: Normal Bowel Sounds, Soft, No Tenderness Neurological: Normal Gait, Normal Speech, Strength at 5/5 X4 Ext, Normal Tone, Sensation Intact Extremities: No Clubbing, No Cyanosis, No Edema, Normal Pulses, Lower extremity +4 pitting edema; chronic venous insufficiency; dressing applied Vascular: Normal Pulses, Pulses Symmetrical Current Medications: Current Medications Sig/Keaton Start time Last Medication Dose Route Stop Time Status Admin Acetaminophen 650 MG ONCE ONE 04/28 2045 DC 04/28 PO 04/28 Albuterol Sulfate 3 ML TID 04/28 09 AC 04/29 INH 0747 Albuterol Sulfate 2 PUF Q4-6 PRN PRN 04/27 1745 AC INH Amiodarone HCl 200 MG DAILY 04/27 1745 AC 04/29 PO 1018 Apixaban 5 MG BID 04/27 2100 AC 04/29 PO 1019 Atorvastatin Calcium 10 MG 1700 04/27 1746 AC 04/28 PO 1700 Budesonide/ 2 PUF BID 04/27 1800 AC 04/29 Formoterol Fumarate INH 1019 Carvedilol 12.5 MG BID 04/27 2100 AC 04/29 PO 1018 Furosemide 40 MG BID 04/28 0900 AC 04/29 PO 1019 Gabapentin 400 MG TID 04/27 1748 AC 04/29 PO 1024 Guaifenesin 600 MG BID 04/27 2100 AC 04/29 PO 1019 Hydroxyzine HCl 100 MG BID 04/27 2100 AC 04/29 PO 1018 Insulin Aspart 0 TIDAC 04/28 0800 AC 04/29 SC 0816 Losartan Potassium 25 MG DAILY 04/27 2100 AC 04/29 PO 1018 Methylprednisolone 40 MG Q8 04/27 2200 AC 04/29 IV 0529 Montelukast Sodium 10 MG AT BEDTIME 04/27 2100 AC 04/28 PO 2058 Oxycodone/ 1 TAB ONCE ONE 04/29 0545 DC 04/29 Acetaminophen PO 04/29 0546 0539 Oxymetazoline HCl 2 SPRAY BID PRN 04/27 1800 AC JOAQUIN Tiotropium [place] 1 PUF DAILY 04/27 1800 AC 04/29 INH 1018 Last 24 Hrs of Lab/Joaquim Results Last 24 Hrs of Labs/Mics: Laboratory Tests 04/29/18 0701: Anion Gap 11, Estimated GFR 52 L, BUN/Creatinine Ratio 22.9, CBC w Diff NO MAN DIFF REQ, RBC 4.52 L, MCV 86.8, MCH 27.3, MCHC 31.5 L, RDW 15.8 H, MPV 7.1 L , Gran % 89.1 H, Lymphocytes % 6.8 L, Monocytes % 3.9, Eosinophils % 0.2, Basophils % 0, Absolute Granulocytes 9.0 H, Absolute Lymphocytes 0.7 L, Absolute Monocytes 0.4, Absolute Eosinophils 0, Absolute Basophils 0 04/28/18 1150: pH 7.20 *L, pCO2 100.9 *H, pO2 81, HCO3 39 H, ABG O2 Sat (Measured) 94.0 L, P- 50 (Temp Corrected) Y, Carboxyhemoglobin 1.1 L, O2 Concentration % 5L, Temperature 97.7, O2 Delivery Method N/C, Phlebotomy Draw Site RIGHT RADIAL Assessment/Plan Assessment: 63-year-old morbidly obese gentleman with medical history significant for HFrEF (25-30%) nonischemic cardiomyopathy s/p dual chamber PPM/AICD h/o cardiac arrest ), afib (on eliquis), COPD (on 3-4 L baseline o2), JORY (not on CPAP), DM, CKD, HLD, GERD/PUD, chronic lower extremity edema with venous stasis changes, gout s/ p left foot debridement, and multiple admissions for dyspnea secondary to COPD/ CHF exacerbation admitted to [facility] for increasing shortness of breath for 2 days. Patients code status DNI. Patient agrees to resuscitation if needed. Agrees to ABGs. ACUTE ON CHRONIC HYPOXIC/HYPERCAPENIC RESPIRATORY FAILURE * Patient has COPD; JORY not on CPAP * Patient seen by Dr. Ayala this morning. * 04/28: ABG was 7.20, 100.9, 81, 39 * Patient now agrees to attempt to use BiPAP and have ABGs done. * Continue monitoring on telemetry unit; initial troponins/EKGs insignificant so need for cardiology consult as of now * Patient given Solumedrol 40mg 18; Proventil; Symbicort 2 Puf BID; CHF/A-FIB * patient has history of HFrEF (25-30%); proBNP 5600 on admission; troponin 0.05 on admssion * Patient on Lasix 40mg BID * Strict Is and Os * Continue home A-Fib regimen (Eliquis, Amiodarone) * Continue with Coreg, Losartan and Metoprolol LISETTE ON CKD * Cr: 1.4; BUN: 32; continue to monitor * Sodium down to 145 from 147 CHRONIC LOWER EXTREMITY EDEMA * Right leg he has 1 x 1 cm ulcer. No evidence of any pus discharge. We will get wound care consult. * Patient follows up with Vascular Surgeon for vein clipping in [place], CT DIABETES MELLITUS * Accu-Checks; Novolog TIDAC DVT PPx: Patient on Eliquis for Atrial Fibrillation Diet: 2g salt restriction Code Status: DNI; agrees to be resuscitated Problem List: 1. CHF exacerbation 2. COPD (chronic obstructive pulmonary disease) 3. Systolic HF (heart failure) 4. DNI (do not intubate) Pain Ratin Pain Location: Lower extremities Pain Goal: Pain 4 or less Pain Plan: As per pain pathway Tomorrow's Labs & Rationales: CBC BEP DVT/Prophylaxis: pharmacological Ingris Membreno 04/29/18 1144: Attending MD Review Statement Attending Statement Attending MD Statement: examined this patient, discuss w/resident/PA/[employer]IDGE [employer]ONWORKER HELPER, agreed w/resident/PA/BRIDGE IRONWORKER HELPER, reviewed EMR data (avail), discussed with nursing, discussed with case mgmt Attending Assessment/Plan: LISETTE on CKD- cr improved. Cr of 1.4 today. Acute on chronic hyoxic/hypercapenic resp failure- pulm following. will f/u on their recommendations. pt is DNI but wants resuscitation. Ok to use Bipap prn. d/w case management to get social staff worker to see if pt can get any help. dw/ pt the care plan.
[2018-04-29 07:00] VITALS: BP 124/74
[2018-04-29 07:40] LABS: ABSOLUTE BASOPHIL COUNT 0 /CUMM (0.0-0.2); ABSOLUTE EOSINOPHIL COUNT 0 /CUMM (0.0-0.7); ABSOLUTE LYMPH COUNT 0.7 /CUMM (1.2-3.4); ABSOLUTE MONOCYTE COUNT 0.4 /CUMM (0.10-0.60); BASOPHIL % 0 % (0.0-2.0); EOSINOPHIL % 0.2 % (0-5); HEMATOCRIT 39.2 % (42-52); MEAN CORPUSCULAR HGB 27.3 PG (27.0-31.0); MEAN CORPUSCULAR HGB CONC 31.5 G/DL (33.0-37.0); MEAN CORPUSCULAR VOLUME 86.8 FL (80.0-94.0); MEAN PLATELET VOLUME 7.1 FL (7.4-10.4); PLATELET COUNT 204 /CUMM (130-400); RBC DISTRIBUTION WIDTH 15.8 % (11.5-14.5); RED BLOOD CELL CT 4.52 /CUMM (4.70-6.10); WHITE BLOOD CELL COUNT 10.1 /CUMM (4.8-10.8)
--- NOTE | 2018-04-29 08:01 | Patient Discharge Instructions ---
Discharge Instructions General Discharge Information You were seen/treated for: copd exacerbation Special Instructions: F/u pcp in one week after discharge F/u business and marketing teacher in one week after discharge Diet Continue normal diet: Yes Activity Full Activity/No Limits: Yes Acute Coronary Syndrome Inclusion Criteria At DC or during hospital stay patient has or had the following: ACS DIAGNOSIS No Discharge Core Measures Meds if any: Prescribed or Continued at Discharge Meds if any: NOT Prescribed or Continued at Discharge Congestive Heart Failure Inclusion Criteria At DC or during hospital stay patient has or had the following: CHF DIAGNOSIS No Discharge Core Measures Meds if any: Prescribed or Continued at Discharge Meds if any: NOT Prescribed or Continued at Discharge Cerebrovascular accident Inclusion Criteria At DC or during hospital stay patient has or had the following: CVA/TIA Diagnosis No Discharge Core Measures Meds if any: Prescribed or Continued at Discharge Meds if any: NOT Prescribed or Continued at Discharge Venous thromboembolism Inclusion Criteria VTE Diagnosis No VTE Type NONE VTE Confirmed by (Test) NONE Discharge Core Measures - Per Current guidelines, there needs to be overlap - treatment for the first 5 days of Warfarin therapy. - If discharged on Warfarin prior to 5 days of - overlap therapy, the patient will need to be - assessed for post discharge needs including - *Post discharge parental anticoagulation - *Warfarin and/or parental anticoagulation education - *Follow up date to check INR post discharge At least 5 days overlap therapy as Inpatient No Meds if any: Prescribed or Continued at Discharge Note: Overlap Therapy is Warfarin and Anticoagulant Meds if any: NOT Prescribed or Continued at Discharge
[2018-04-29 08:13] LABS: GRANULOCYTE % 89.1 % (42.2-75.2)
--- NOTE | 2018-04-29 10:01 | PN- Pulmonary ---
Subjective HPI/Critical Care Issues: pt seen and examined feeling better awake and alert used bipap overnight for about 3 hours Objective Current Medications: Current Medications Sig/Keaton Start time Last Medication Dose Route Stop Time Status Admin Acetaminophen 650 MG ONCE ONE 04/28 2045 DC 04/28 PO 04/28 Albuterol Sulfate 3 ML TID 04/28 09 AC 04/29 INH 0747 Albuterol Sulfate 2 PUF Q4-6 PRN PRN 04/27 1745 AC INH Amiodarone HCl 200 MG DAILY 04/27 174 AC 04/28 PO 0946 Apixaban 5 MG BID 04/27 2100 AC 04/28 PO 2057 Atorvastatin Calcium 10 MG 1700 04/27 1746 AC 04/28 PO 1700 Budesonide/ 2 PUF BID 04/27 1800 AC 04/28 Formoterol Fumarate INH 2058 Carvedilol 12.5 MG BID 04/27 2100 AC 04/28 PO 205 Furosemide 40 MG BID 04/28 0900 AC 04/28 PO 205 Gabapentin 400 MG TID 04/27 1748 AC 04/28 PO 2058 Guaifenesin 600 MG BID 04/27 2100 AC 04/28 PO 205 Hydroxyzine HCl 100 MG BID 04/27 2100 AC 04/28 PO 205 Insulin Aspart 0 TIDAC 04/28 08 AC 04/29 SC 0816 Losartan Potassium 25 MG DAILY 04/27 2100 AC 04/28 PO 0946 Methylprednisolone 40 MG Q8 04/27 2200 AC 04/29 IV 0529 Montelukast Sodium 10 MG AT BEDTIME 04/27 2100 AC 04/28 PO 2057 Oxycodone/ 1 TAB ONCE ONE 04/29 0545 DC 04/29 Acetaminophen PO 04/29 0546 0539 Oxymetazoline HCl 2 SPRAY BID PRN 04/27 1800 AC JOAQUIN Tiotropium [place] 1 PUF DAILY 04/27 1800 AC 04/28 INH 0945 Vital Signs & I&O Last 24 Hrs of Vitals and I&O: Vital Signs Date Time Temp Pulse Resp B/P B/P Pulse O2 O2 Flow FiO2 Mean Ox Delivery Rate 04/29 0846 94 Nasal 3.5L Cannula 04/29 700 98.4 75 18 124/74 94 Nasal Cannula 04/29 0042 75 98 04/29 0000 92 Nasal 4.0L Cannula 04/28 2135 98.1 74 18 120/64 92 Nasal Cannula 04/28 2058 74 120/84 04/28 1913 93 Nasal 4.0L Cannula 04/28 1640 93 04/28 1419 97.1 74 20 120/60 94 BIPAP Intake & Output 04/29 1600 04/29 0800 04/29 0000 Intake Total 600 600 Output Total 450 Balance 600 150 Intake, Oral 600 600 Output, Urine 450 Exam Other Physical Findings: gen awake and alert heent ncat cvs s1, s2 lungs bilateral rhonchi abd obese, bs+ ext chronic venous changes Results Last 24 Hrs of Lab Results: Laboratory Tests 04/29/18 07: Anion Gap 11, Estimated GFR 52 L, BUN/Creatinine Ratio 22.9, CBC w Diff NO MAN DIFF REQ, RBC 4.52 L, MCV 86.8, MCH 27.3, MCHC 31.5 L, RDW 15.8 H, MPV 7.1 L , Gran % 89.1 H, Lymphocytes % 6.8 L, Monocytes % 3.9, Eosinophils % 0.2, Basophils % 0, Absolute Granulocytes 9.0 H, Absolute Lymphocytes 0.7 L, Absolute Monocytes 0.4, Absolute Eosinophils 0, Absolute Basophils 0 04/28/18 1150: pH 7.20 *L, pCO2 100.9 *H, pO2 81, HCO3 39 H, ABG O2 Sat (Measured) 94.0 L, P- 50 (Temp Corrected) Y, Carboxyhemoglobin 1.1 L, O2 Concentration % 5L, Temperature 97.7, O2 Delivery Method N/C, Phlebotomy Draw Site RIGHT RADIAL Impression/Plan Impression/Plan Impression/Plan: Impression 63 year old man * acute hypercarbic respiratory failure in the setting of previous non-use per pt wishes of PAP tx for JORY/OHS * acute exacerbation of COPD Plan - no further abgs at this time - DNR/DNI - pt declines bipap use - he specifically also requested that if he is unconcious to not put it on him - he requested to keep bipap in the room and we will only use bipap if he requests - continue solumedrol - trc/nebs - can continue discussions regarding this - he is not to be moved to the ICU - wound care DVT prophylaxis at all times
[2018-04-29 14:40] VITALS: BP 128/68
[2018-04-29 23:13] VITALS: BP 128/68
[2018-04-30 07:04] VITALS: BP 112/74
--- NOTE | 2018-04-30 07:12 | PN- Housestaff ---
Linda Watson 04/30/18 0711: Subjective Follow-up For: Acute on Chronic Hypoxic/Hypercapneic Respiratory Failure CHF HFrEF Atrial Fibrillation LISETTE on CKD Chronic Lower Extremity Edema Tele-Events Since Last Visit: Paced, 75, 0.12 Subjective: Patient seen and examined at bedside this morning. He continues to sleep and stay in the recliner chair. Patient on 3.5L NC saturating at 92%. Patient feeling better but continues to have some shortness of breath. Patient was accompanied by his mother in law today. Dr. Puente has seen the patient today and requested a sputum culture. Steroids being tapered to q12 from q8. Will see how patient tolerates. Otherwise denies any new complaints. Tolerating diet with normal bowel/bladder movements. Patient claims lower extremity pain has been adressed. Review of Systems Constitutional: Denies: see HPI. Objective Last 24 Hrs of Vital Signs/I&O Vital Signs Date Time Temp Pulse Resp B/P B/P Pulse O2 O2 Flow FiO2 Mean Ox Delivery Rate 04/30 0704 97.7 82 18 112/74 95 Nasal Cannula 04/30 0000 Nasal 5.0L Cannula 04/29 2313 98.7 74 18 128/68 97 Nasal Cannula 04/29 2155 75 128/68 07/05 2130 94 Nasal 3.5L Cannula 04/29 2010 92 Nasal 4.0L Cannula 04/29 1600 Nasal 3.5L Cannula 04/29 1522 96 07/05 1440 98.2 75 18 128/68 95 BIPAP / 1403 86 95 07/05 1018 75 124/74 07/05 1018 75 124/74 /05 1018 75 124/74 /05 0846 94 Nasal 3.5L Cannula 04/29 0800 94 Nasal 5.0L Cannula Intake & Output 04/30 0800 07 0000 07/05 1600 Intake Total 120 500 620 Output Total 300 Balance -180 500 620 Intake, IV 20 Intake, Oral 120 500 600 Number 0 Bowel Movements Output, Urine 300 Physical Exam General Appearance: Alert, Oriented X3, Cooperative, Mild Distress HEENT: Atraumatic, PERRLA, EOMI, Mucous Membr. moist/pink Cardiovascular: Normal S1, Normal S2, Pacemaker Lungs: Patient continues to have wheezing but is significantly improved Abdomen: Normal Bowel Sounds, Soft, No Tenderness Neurological: Normal Speech, Strength at 5/5 X4 Ext, Normal Tone, Reflexes 2+ Extremities: No Clubbing, No Cyanosis, Normal Pulses, Significant +4 pitting edema in bilateral lower extremities; dressing is applied, right lower foot wounds Vascular: Normal Pulses, Pulses Symmetrical Current Medications: Current Medications Sig/Keaton Start time Last Medication Dose Route Stop Time Status Admin Acetaminophen 650 MG Q6P PRN / 1145 AC PO Albuterol Sulfate 3 ML TID 04/28 0900 AC 04/29 INH 2004 Albuterol Sulfate 2 PUF Q4-6 PRN PRN 04/27 1745 AC INH Amiodarone HCl 200 MG DAILY 04/27 1745 AC 04/29 PO 1018 Ammonium Lactate 1 IDANIA DAILY 04/29 1125 AC 04/29 TOP 1301 Apixaban 5 MG BID 04/27 2100 AC 04/29 PO 2155 Atorvastatin Calcium 10 MG 1700 04/27 1746 AC 04/29 PO 1656 Budesonide/ 2 PUF BID 04/27 1800 AC 04/29 Formoterol Fumarate INH 2156 Carvedilol 12.5 MG BID 04/27 2100 AC 04/29 PO 2155 Furosemide 40 MG BID 04/28 0900 AC 04/29 PO 2155 Gabapentin 400 MG TID 04/27 1748 AC 04/29 PO 2155 Guaifenesin 600 MG BID 04/27 2100 AC 04/29 PO 2156 Hydrocodone Bitart/ 1 TAB .STK-MED ONE 04/29 1444 DC Acetaminophen PO 04/29 1445 Hydroxyzine HCl 100 MG BID 04/27 2100 AC 04/29 PO 2154 Insulin Aspart 0 TIDAC 04/28 0800 AC 04/29 SC 1659 Losartan Potassium 25 MG DAILY 04/27 2100 AC 04/29 PO 1018 Methylprednisolone 40 MG Q8 04/27 2200 AC 04/30 IV 0504 Montelukast Sodium 10 MG AT BEDTIME 04/27 2100 AC 04/29 PO 2156 Oxycodone/ 1 TAB .STK-MED ONE 04/29 1521 DC Acetaminophen PO 04/29 1522 Oxycodone/ 1 TAB Q8P PRN 04/29 1445 AC 04/30 Acetaminophen PO 0504 Oxymetazoline HCl 2 SPRAY BID PRN 04/27 1800 AC JOAQUIN Tiotropium [place] 1 PUF DAILY 04/27 1800 AC 04/29 INH 1018 Last 24 Hrs of Lab/Joaquim Results Last 24 Hrs of Labs/Mics: Laboratory Tests 04/30/18 0654: Sodium Pending, Potassium Pending, Chloride Pending, Carbon Dioxide Pending, Anion Gap Pending, BUN Pending, Creatinine Pending, BUN/Creatinine Ratio Pending , CBC w Diff Pending, WBC Pending, RBC Pending, Hgb Pending, Hct Pending, MCV Pending, MCH Pending, MCHC Pending, RDW Pending, Plt Count Pending, MPV Pending Assessment/Plan Assessment: A/P: 63-year-old morbidly obese gentleman with medical history significant for HFrEF (25-30%) nonischemic cardiomyopathy s/p dual chamber PPM/AICD h/o cardiac arrest ), afib (on eliquis), COPD (on 3-4 L baseline o2), JORY (not on CPAP), DM, CKD, HLD, GERD/PUD, chronic lower extremity edema with venous stasis changes, gout s/ p left foot debridement, and multiple admissions for dyspnea secondary to COPD/ CHF exacerbation admitted to [facility] for increasing shortness of breath for 2 days. Patients code status DNI. Patient agrees to resuscitation if needed. Agrees to ABGs. ACUTE ON CHRONIC HYPOXIC/HYPERCAPENIC RESPIRATORY FAILURE * Patient has COPD; JORY not on CPAP * Continue Solumedrol 40mg changed to q12 today; will see how patient tolerates * Patient being followed by Dr. Ayala for pulmonology * 04/28: ABG was 7.20, 100.9, 81, 39 * Patient now agrees to attempt to use BiPAP and have ABGs done. * Continue monitoring on telemetry unit;patient with pacemaker and history of Afib and HFrEF * Continue Proventil; Symbicort 2 Puf BID; Spiriva 1Puf daily CHF/A-FIB * patient has history of HFrEF (25-30%); proBNP 5600 on admission; troponin 0.05 on admssion * Continue Lasix 40mg BID * Strict Is and Os * Continue home A-Fib regimen (Eliquis, Amiodarone) * Continue with Coreg, Losartan and Metoprolol LISETTE ON CKD * Continue to monitor renal function * Current creatinine 1.2 from 1.4 CHRONIC LOWER EXTREMITY EDEMA * Right leg he has 1 x 1 cm ulcer. No evidence of any pus discharge. We will get wound care consult. * Patient follows up with Vascular Surgeon for vein clipping in [place], [place] DIABETES MELLITUS * Last 4 fingersticks 250, 190, 210, 210 * Accu-Checks; Novolog TIDAC DVT PPx: Patient on Eliquis for Atrial Fibrillation Diet: 2g salt restriction Code Status: DNI; agrees to be resuscitated Problem List: 1. COPD exacerbation 2. History of CHF (congestive heart failure) 3. Diabetes 4. Afib 5. Hypercapnic respiratory failure 6. Swelling of lower extremity 7. Venous insufficiency Pain Ratin Pain Location: Bilateral lower extremities Pain Goal: Pain 4 or less Pain Plan: As per pain pathway Tomorrow's Labs & Rationales: CBC BEP DVT/Prophylaxis: pharmacological Ingris Membreno 04/30/18 1139: Attending MD Review Statement Attending Statement Attending MD Statement: examined this patient, discuss w/resident/PA/NIGHT MONITOR, agreed w/resident/PA/NIGHT MONITOR, discussed with family, reviewed EMR data (avail), discussed with nursing, discussed with case mgmt Attending Assessment/Plan: Acute on chronic hypoxic/hypercapneic resp failure with underlying copd/JORY-pulm following / appreciated their input. will decrease solumedrol to 40mg iv q12h. f /u on resp sputum culutre. d/w patient and pts mother in law at bedside the care plan.
--- NOTE | 2018-04-30 07:58 | PN- Pulmonary ---
Subjective HPI/Critical Care Issues: Patient is awake alert despite dramatic degree of hypercarbia. Prior parameters of care reviewed. He will use BiPAP when necessary. Objective Current Medications: Current Medications Sig/Keaton Start time Last Medication Dose Route Stop Time Status Admin Acetaminophen 650 MG Q6P PRN / 1145 AC PO Albuterol Sulfate 3 ML TID 04/28 0900 AC 04/29 INH 2004 Albuterol Sulfate 2 PUF Q4-6 PRN PRN 04/27 1745 AC INH Amiodarone HCl 200 MG DAILY 04/27 1745 AC 04/29 PO 1018 Ammonium Lactate 1 IDANIA DAILY 04/29 1125 AC 04/29 TOP 1301 Apixaban 5 MG BID 04/27 2100 AC 04/29 PO 2155 Atorvastatin Calcium 10 MG 1700 04/27 1746 AC 04/29 PO 1656 Budesonide/ 2 PUF BID 04/27 1800 AC 04/29 Formoterol Fumarate INH 2156 Carvedilol 12.5 MG BID 04/27 2100 AC 04/29 PO 2155 Furosemide 40 MG BID 04/28 0900 AC 04/29 PO 2155 Gabapentin 400 MG TID 04/27 1748 AC 04/29 PO 2155 Guaifenesin 600 MG BID 04/27 2100 AC 04/29 PO 2156 Hydrocodone Bitart/ 1 TAB .STK-MED ONE 04/29 1444 DC Acetaminophen PO 04/29 1445 Hydroxyzine HCl 100 MG BID 04/27 2100 AC 04/29 PO 2154 Insulin Aspart 0 TIDAC 04/28 0800 AC 04/29 SC 1659 Losartan Potassium 25 MG DAILY 04/27 2100 AC 04/29 PO 1018 Methylprednisolone 40 MG Q8 04/27 2200 AC 07 IV 0504 Montelukast Sodium 10 MG AT BEDTIME 04/27 2100 AC 04/29 PO 2156 Oxycodone/ 1 TAB .STK-MED ONE 04/29 1521 DC Acetaminophen PO 04/29 1522 Oxycodone/ 1 TAB Q8P PRN 04/29 1445 AC 04/30 Acetaminophen PO 0504 Oxymetazoline HCl 2 SPRAY BID PRN 04/27 1800 AC JOAQUIN Tiotropium [place] 1 PUF DAILY 04/27 1800 AC 04/29 INH 1018 Vital Signs & I&O Last 24 Hrs of Vitals and I&O: Vital Signs Date Time Temp Pulse Resp B/P B/P Pulse O2 O2 Flow FiO2 Mean Ox Delivery Rate 04/30 0704 97.7 82 18 112/74 95 Nasal Cannula 04/30 0000 Nasal 5.0L Cannula 04/29 2313 98.7 74 18 128/68 97 Nasal Cannula 04/29 2155 75 128/68 04/29 2130 94 Nasal 3.5L Cannula 04/29 2010 92 Nasal 4.0L Cannula 04/29 1600 Nasal 3.5L Cannula 04/29 1522 96 04/29 1440 98.2 75 18 128/68 95 BIPAP 04/29 1403 86 95 04/29 1018 75 124/74 04/29 1018 75 124/74 04/29 1018 75 124/74 04/29 0846 94 Nasal 3.5L Cannula 04/29 0800 94 Nasal 5.0L Cannula Intake & Output 04/30 0800 04/30 0000 04/29 1600 Intake Total 120 500 620 Output Total 300 Balance -180 500 620 Intake, IV 20 Intake, Oral 120 500 600 Number 0 Bowel Movements Output, Urine 300 Since saturation 5 L 95% exam of his chest shows scattered rhonchi cardiac exam shows regular S1 and S2 without murmurs lower extremity edema is have compression dressings in place Impression/Plan Impression/Plan Impression/Plan: 63-year-old with COPD cardiomyopathy and acute on chronic hypercapnic respiratory failure. Recommendations: Continue negative fluid balance. Obtain sputum C&S. If bicarbonate rises further and he will agree to blood gas when necessary Diamox would be appropriate. Taper FiO2 with improved saturations.
[2018-04-30 08:00] LABS: ABSOLUTE BASOPHIL COUNT 0 /CUMM (0.0-0.2); ABSOLUTE EOSINOPHIL COUNT 0 /CUMM (0.0-0.7); ABSOLUTE GRANULOCYTE CT 8.2 /CUMM (1.4-6.5); ABSOLUTE LYMPH COUNT 0.5 /CUMM (1.2-3.4); ABSOLUTE MONOCYTE COUNT 0.2 /CUMM (0.10-0.60); BASOPHIL % 0 % (0.0-2.0); EOSINOPHIL % 0 % (0-5); MEAN CORPUSCULAR HGB 27.4 PG (27.0-31.0); MEAN CORPUSCULAR HGB CONC 31.3 G/DL (33.0-37.0); MEAN CORPUSCULAR VOLUME 87.3 FL (80.0-94.0); MEAN PLATELET VOLUME 7.3 FL (7.4-10.4); PLATELET COUNT 194 /CUMM (130-400); RED BLOOD CELL CT 4.69 /CUMM (4.70-6.10)
[2018-04-30 08:44] LABS: GRANULOCYTE % 91.6 % (42.2-75.2)
[2018-04-30 14:00] VITALS: BP 120/64
[2018-04-30 23:20] VITALS: BP 140/79
[2018-05-01 06:55] VITALS: BP 138/86
[2018-05-01 08:24] LABS: ABSOLUTE BASOPHIL COUNT 0 /CUMM (0.0-0.2); ABSOLUTE EOSINOPHIL COUNT 0 /CUMM (0.0-0.7); ABSOLUTE GRANULOCYTE CT 7.1 /CUMM (1.4-6.5); ABSOLUTE LYMPH COUNT 0.7 /CUMM (1.2-3.4); ABSOLUTE MONOCYTE COUNT 0.4 /CUMM (0.10-0.60); BASOPHIL % 0.2 % (0.0-2.0); EOSINOPHIL % 0 % (0-5); HEMATOCRIT 41.2 % (42-52); MEAN CORPUSCULAR HGB 27.2 PG (27.0-31.0); MEAN CORPUSCULAR HGB CONC 30.8 G/DL (33.0-37.0); MEAN CORPUSCULAR VOLUME 88.3 FL (80.0-94.0); MEAN PLATELET VOLUME 7.1 FL (7.4-10.4); PLATELET COUNT 167 /CUMM (130-400); RBC DISTRIBUTION WIDTH 16.7 % (11.5-14.5); RED BLOOD CELL CT 4.67 /CUMM (4.70-6.10); WHITE BLOOD CELL COUNT 8.2 /CUMM (4.8-10.8)
--- NOTE | 2018-05-01 08:42 | PN- Housestaff ---
Darryl HARPER,Vale 05/01/18 0841: Subjective Follow-up For: COPD exacerbation Tele-Events Since Last Visit: Normal sinus rhythm Subjective: Patient seen and examined at bedside. No overnight events. Patient says he had a terrible night. He said he had difficulty in breathing and got nebulization twice. He also mentioned that he is coughing up junk. Review of Systems Constitutional: Reports: no symptoms. Objective Last 24 Hrs of Vital Signs/I&O Vital Signs Date Time Temp Pulse Resp B/P B/P Pulse O2 O2 Flow FiO2 Mean Ox Delivery Rate 05/01 0830 Nasal 3.5L Cannula 05/01 0830 96 Nasal 3.5L Cannula 05/01 0823 68 138/86 05/01 0821 68 138/86 05/01 0819 68 138/86 05/01 0655 98.2 68 22 138/86 94 05/01 0350 86 95 05/01 0128 75 98 04/30 2320 98.1 75 20 140/79 94 Room Air 04/30 2204 Nasal 3.5L Cannula 04/30 2148 70 120/64 04/30 2025 94 Nasal 3.5L Cannula 04/30 1600 Nasal 5.0L Cannula 04/30 1400 98.0 70 20 120/64 96 Intake & Output 05/01 1600 05/01 0800 05/01 0000 Intake Total 400 200 Output Total 800 Balance -400 200 Intake, Oral 400 200 Output, Urine 800 Physical Exam General Appearance: Alert, Oriented X3, Cooperative, No Acute Distress Cardiovascular: Normal S1, Normal S2, No Murmurs Lungs: B/L WHEEZE Abdomen: Soft, No Tenderness, No Hepatospenomegaly Current Medications: Current Medications Sig/Keaton Start time Last Medication Dose Route Stop Time Status Admin Acetaminophen 650 MG Q6P PRN 04/29 1145 AC PO Albuterol Sulfate 3 ML TID 04/28 0900 AC 05/01 INH 0804 Albuterol Sulfate 2 PUF Q4-6 PRN PRN 04/27 1745 AC INH Amiodarone HCl 200 MG DAILY 04/27 1745 AC 05/01 PO 0823 Ammonium Lactate 1 IDANIA DAILY 04/29 1125 AC 05/01 TOP 1147 Apixaban 5 MG BID 04/27 2100 AC 05/01 PO 0821 Atorvastatin Calcium 10 MG 1700 04/27 1746 AC 04/30 PO 1727 Budesonide/ 2 PUF BID 04/27 1800 AC 05/01 Formoterol Fumarate INH 0825 Carvedilol 12.5 MG BID 04/27 2100 AC 05/01 PO 0821 Furosemide 40 MG BID 04/28 0900 AC 05/01 PO 0823 Gabapentin 400 MG TID 04/27 1748 AC 05/01 PO 0820 Guaifenesin 600 MG BID 04/27 2100 AC 05/01 PO 0819 Hydroxyzine HCl 100 MG BID 04/27 2100 AC 05/01 PO 0821 Insulin Aspart 0 TIDAC 04/28 0800 AC 05/01 SC 1146 Losartan Potassium 25 MG DAILY 04/27 2100 AC 05/01 PO 0819 Methylprednisolone 40 MG Q12 04/30 09 AC 05/01 IV 0819 Montelukast Sodium 10 MG AT BEDTIME 04/27 2100 AC 04/30 PO 2149 Oxycodone/ 1 TAB Q8P PRN 04/29 1445 AC 05/01 Acetaminophen PO 1146 Oxymetazoline HCl 2 SPRAY BID PRN 04/27 1800 AC JOAQUIN Tiotropium [place] 1 PUF DAILY 04/27 1800 AC 05/01 INH 0822 Last 24 Hrs of Lab/Joaquim Results Last 24 Hrs of Labs/Mics: Laboratory Tests 05/01/18705: Anion Gap 11, Estimated GFR > 60, BUN/Creatinine Ratio 35.0 H, CBC w Diff NO MAN DIFF REQ, RBC 4.67 L, MCV 88.3, MCH 27.2, MCHC 30.8 L, RDW 16.7 H, MPV 7.1 L, Gran % 87.1 H, Lymphocytes % 8.0 L, Monocytes % 4.7, Eosinophils % 0, Basophils % 0.2, Absolute Granulocytes 7.1 H, Absolute Lymphocytes 0.7 L, Absolute Monocytes 0.4, Absolute Eosinophils 0, Absolute Basophils 0 Microbiology 04/30 1340 LOWER RESP: Respiratory Culture - RES STAPH AUREUS GRAM NEGATIVE RODS YEAST 04/30 134 LOWER RESP: Gram Stain - RES Assessment/Plan Assessment: 63-year-old morbidly obese gentleman with medical history significant for HFrEF (25-30%) nonischemic cardiomyopathy s/p dual chamber PPM/AICD h/o cardiac arrest ), afib (on eliquis), COPD (on 3-4 L baseline o2), JORY (not on CPAP), DM, CKD, HLD, GERD/PUD, chronic lower extremity edema with venous stasis changes, gout s/ p left foot debridement, and multiple admissions for dyspnea secondary to COPD/ CHF exacerbation admitted to [facility] for increasing shortness of breath for 2 days. Patients code status DNI. Patient agrees to resuscitation if needed. Agrees to ABGs. ACUTE ON CHRONIC HYPOXIC/HYPERCAPENIC RESPIRATORY FAILURE * Patient has COPD; JORY not on CPAP. Patient is still wheezing * Continue Solumedrol 40mg changed to q12 today; will see how patient tolerates * Patient being followed by Dr. Ayala for pulmonology * 04/28: ABG was 7.20, 100.9, 81, 39 * Patient now agrees to attempt to use BiPAP and have ABGs done. * Continue monitoring on telemetry unit;patient with pacemaker and history of Afib and HFrEF * Continue Proventil; Symbicort 2 Puf BID; Spiriva 1Puf daily. Patient is requiring nebulization 4 times a day. Will continue monitoring. CHF/A-FIB * patient has history of HFrEF (25-30%); proBNP 5600 on admission; troponin 0.05 on admssion * Continue Lasix 40mg BID * Strict Is and Os * Continue home A-Fib regimen (Eliquis, Amiodarone) * Continue with Coreg, Losartan and Metoprolol LISETTE ON CKD * Continue to monitor renal function * Current creatinine 1.2 from 1.4 CHRONIC LOWER EXTREMITY EDEMA * Right leg he has 1 x 1 cm ulcer. No evidence of any pus discharge. We will get wound care consult. Advised leg elevation. * Patient follows up with Vascular Surgeon for vein clipping in [place], [place] DIABETES MELLITUS * Last 4 fingersticks 250, 190, 210, 210 * Accu-Checks; Novolog TIDAC DVT PPx: Patient on Eliquis for Atrial Fibrillation Diet: 2g salt restriction Code Status: DNI; agrees to be resuscitated Problem List: 1. Hypercapnic respiratory failure Pain Ratin Pain Location: NONE Pain Goal: Remain pain free Pain Plan: TYLENOL Tomorrow's Labs & Rationales: CBC,BEP Bonilla HARPER,Damari 05/01/18 1232: Attending MD Review Statement Attending Statement Attending MD Statement: examined this patient, discuss w/resident/PA/BULK PIGMENT REDUCER, agreed w/resident/PA/BULK PIGMENT REDUCER, reviewed EMR data (avail), discussed with nursing, amended to note Attending Assessment/Plan: Patient seen and examined. resting comfortably not in acute distress. He is afebrile hemodynamically stable. Maintaining saturation on 3.4 L of oxygen. Denies shortness of breath or chest pain at rest. He does admit to dyspnea with exertion. Does not want to utilize CPAP therapy overnight due to discomfort and need to use the bathroom frequently because of his diuretic therapy. On examination he is obese and not in any acute respiratory distress. He has fair entry bilaterally with mild diffuse rhonchi. Abdomen is obese soft and nontender. He has 2-3+ pedal edema bilaterally. Recommendations: -Continue bronchodilator therapy. Begin patient on prednisone 40 mg orally daily starting tomorrow. -CPAP therapy at nighttime if patient agrees. -Patient has been hospitalized to [facility] every month for the past 12 months. He will benefit from evaluation by social insurance analyst to help with his living situation.
[2018-05-01 09:11] LABS: GRANULOCYTE % 87.1 % (42.2-75.2)
--- NOTE | 2018-05-01 13:41 | PN- Pulmonary ---
Subjective HPI/Critical Care Issues: Patient seen and examined at bedside. No overnight events. Patient says he had a terrible night. He said he had difficulty in breathing and got nebulization twice. He also mentioned that he is coughing up junk. Review of Systems Constitutional: Reports: no symptoms. Objective Current Medications: Current Medications Sig/Keaton Start time Last Medication Dose Route Stop Time Status Admin Acetaminophen 650 MG Q6P PRN 04/29 1145 AC PO Albuterol Sulfate 3 ML TID 04/28 0900 AC 05/01 INH 1316 Albuterol Sulfate 2 PUF Q4-6 PRN PRN 04/27 1745 AC INH Amiodarone HCl 200 MG DAILY 04/27 1745 AC 05/01 PO 0823 Ammonium Lactate 1 IDANIA DAILY 04/29 1125 AC 05/01 TOP 1147 Apixaban 5 MG BID 04/27 2100 AC 05/01 PO 0821 Atorvastatin Calcium 10 MG 1700 04/27 1746 AC 04/30 PO 1727 Budesonide/ 2 PUF BID 04/27 1800 AC 05/01 Formoterol Fumarate INH 0825 Carvedilol 12.5 MG BID 04/27 2100 AC 05/01 PO 0821 Furosemide 40 MG BID 04/28 0900 AC 05/01 PO 0823 Gabapentin 400 MG TID 04/27 1748 AC 05/01 PO 1323 Guaifenesin 600 MG BID 04/27 2100 AC 05/01 PO 0819 Hydroxyzine HCl 100 MG BID 04/27 2100 AC 05/01 PO 0821 Insulin Aspart 0 TIDAC 04/28 0800 AC 05/01 SC 1146 Losartan Potassium 25 MG DAILY 04/27 2100 AC 05/01 PO 0819 Methylprednisolone 40 MG Q12 04/30 0900 AC 05/01 IV 0819 Montelukast Sodium 10 MG AT BEDTIME 04/27 2100 AC 04/30 PO 2149 Oxycodone/ 1 TAB Q8P PRN 04/29 1445 AC 05/01 Acetaminophen PO 1146 Oxymetazoline HCl 2 SPRAY BID PRN 04/27 1800 AC JOAQUIN Tiotropium [place] 1 PUF DAILY 04/27 1800 AC 05/01 INH 0822 Vital Signs & I&O Last 24 Hrs of Vitals and I&O: Vital Signs Date Time Temp Pulse Resp B/P B/P Pulse O2 O2 Flow FiO2 Mean Ox Delivery Rate 05/01 0830 Nasal 3.5L Cannula 05/01 0830 96 Nasal 3.5L Cannula 05/01 0823 68 138/86 05/01 0821 68 138/86 05/01 0819 68 138/86 05/01 0655 98.2 68 22 138/86 94 05/01 0350 86 95 05/01 0128 75 98 04/30 2320 98.1 75 20 140/79 94 Room Air 04/30 2204 Nasal 3.5L Cannula 04/30 2148 70 120/64 04/30 2025 94 Nasal 3.5L Cannula 04/30 1600 Nasal 5.0L Cannula 04/30 1400 98.0 70 20 120/64 96 Intake & Output 05/01 1600 05/01 0800 05/01 0000 Intake Total 400 200 Output Total 800 Balance -400 200 Intake, Oral 400 200 Output, Urine 800 Laboratory Tests 05/01 04/30 0706 0654 Chemistry Sodium (137 - 145 mmol/L) 142 143 Potassium (3.5 - 5.1 mmol/L) 5.0 4.9 Chloride (98 - 107 mmol/L) 92 L 93 L Carbon Dioxide (22 - 30 mmol/L) 40 H 41 H Anion Gap (5 - 16) 11 9 BUN (9 - 20 mg/dL) 42 H 39 H Creatinine (0.7 - 1.2 mg/dL) 1.2 1.2 Estimated GFR (>60 ml/min) > 60 > 60 BUN/Creatinine Ratio (7 - 25 %) 35.0 H 32.5 H Hematology CBC w Diff NO MAN DIFF REQ NO MAN DIFF REQ WBC (4.8 - 10.8 /CUMM) 8.2 9.0 RBC (4.70 - 6.10 /CUMM) 4.67 L 4.69 L Hgb (14.0 - 18.0 G/DL) 12.7 L 12.8 L Hct (42 - 52 %) 41.2 L 41.0 L MCV (80.0 - 94.0 FL) 88.3 87.3 MCH (27.0 - 31.0 PG) 27.2 27.4 MCHC (33.0 - 37.0 G/DL) 30.8 L 31.3 L RDW (11.5 - 14.5 %) 16.7 H 17.0 H Plt Count (130 - 400 /CUMM) 167 194 MPV (7.4 - 10.4 FL) 7.1 L 7.3 L Gran % (42.2 - 75.2 %) 87.1 H 91.6 H Lymphocytes % (20.5 - 51.1 %) 8.0 L 5.9 L Monocytes % (1.7 - 9.3 %) 4.7 2.5 Eosinophils % (0 - 5 %) 0 0 Basophils % (0.0 - 2.0 %) 0.2 0 Absolute Granulocytes (1.4 - 6.5 /CUMM) 7.1 H 8.2 H Absolute Lymphocytes (1.2 - 3.4 /CUMM) 0.7 L 0.5 L Absolute Monocytes (0.10 - 0.60 /CUMM) 0.4 0.2 Absolute Eosinophils (0.0 - 0.7 /CUMM) 0 0 Absolute Basophils (0.0 - 0.2 /CUMM) 0 0 Microbiology Date/Time Procedure - Status Source Growth 04/30 1340 Respiratory Culture - RES LOWER RESP STAPH AUREUS GRAM NEGATIVE RODS YEAST 04/30 1340 Gram Stain - RES LOWER RESP Impression/Plan Impression/Plan Impression/Plan: General Appearance: well developed/nourished Other Physical Findings: General Appearance Alert, Oriented X3, Cooperative, Neck Supple, No JVD Cardiovascular No Murmurs, irregularly irregular, tachycardic 100s-120s Lungs end inspiratory and expiratory wheezing/rhonchi, no audible crackles Abdomen Normal Bowel Sounds, Soft, No Tenderness, No Masses Extremities No Clubbing, No Cyanosis, Normal Pulses, chronic venous stasis changes, 2+ bilateral lower extremity pitting edema to knees 62 year old male with a past medical history significant for HFrEF (25-30%) nonischemic cardiomyopathy s/p dual chamber PPM/AICD, 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 * Acute hypercarbic resp failure with copd and jory with noncompliance of bipap * COPDE * Low ef with fluid overload * Atrial fibrillation * JORY noncompliant * History of gout REC COnt steroids and change to po prednisone in am Cont all meds Cont anticoag NEbs Sputum culture Lasix will follow
[2018-05-01 14:10] VITALS: BP 120/84
[2018-05-01 22:07] VITALS: BP 128/88
[2018-05-02 06:42] VITALS: BP 136/88
--- NOTE | 2018-05-02 08:38 | PN- Housestaff ---
Sam Aceves 05/02/18 0838: Subjective Follow-up For: COPD exacerbation Complaints: no complaints Tele-Events Since Last Visit: Normal sinus rhythm Subjective: Patient was seen and examined this morning he is alert awake and oriented 3. No acute overnight events. Patient reports bilateral foot pain. He is getting Percocet which is giving him moderate relief. Also reports some difficulty breathing. Receiving nebulizer treatments. He is on BiPAP overnight for couple of hours. He is having productive cough. Sputum cultures were sent. Vitals remained stable afebrile, heart rate 76, respiratory rate 18, blood pressure 136/84, saturating at 95 on 3.5 L. Review of Systems Constitutional: Reports: see HPI. Objective Last 24 Hrs of Vital Signs/I&O Vital Signs Date Time Temp Pulse Resp B/P B/P Pulse O2 O2 Flow FiO2 Mean Ox Delivery Rate 05/02 0757 76 136/84 / 0757 76 136/84 05/02 0756 76 136/84 / 0642 98.1 73 22 136/88 94 /08 0254 75 92 /08 0011 75 98 07/07 2207 98.0 77 20 128/88 96 Nasal Cannula 05/01 2058 76 128/86 /07 2047 Nasal 3.5L Cannula 05/01 1924 94 Nasal 3.5L Cannula 05/01 1410 98.4 77 20 120/84 94 Nasal 3.5L Cannula Intake & Output 05/02 1600 /08 0800 08 0000 Intake Total 360 200 Output Total Balance 360 200 Intake, Oral 360 200 Patient 176.901 kg Weight Physical Exam General Appearance: Alert, Oriented X3, Cooperative, No Acute Distress Other Physical Findings: Cardiovascular: Normal S1, Normal S2, No Murmurs Lungs: B/L WHEEZES, RHONCHI Abdomen: Soft, No Tenderness, No Hepatospenomegaly Current Medications: Current Medications Sig/Keaton Start time Last Medication Dose Route Stop Time Status Admin Acetaminophen 650 MG Q6P PRN 04/29 1145 AC 05/02 PO 0848 Albuterol Sulfate 3 ML TID 04/28 0900 AC 05/02 INH 0812 Albuterol Sulfate 2 PUF Q4-6 PRN PRN 04/27 1745 AC INH Amiodarone HCl 200 MG DAILY 04/27 1745 AC 05/02 PO 0757 Ammonium Lactate 1 IDANIA DAILY 04/29 1125 AC 05/02 TOP 0759 Apixaban 5 MG BID 04/27 2100 AC 05/02 PO 0757 Atorvastatin Calcium 10 MG 1700 04/27 1746 AC 05/01 PO 1556 Budesonide/ 2 PUF BID 04/27 1800 AC 05/02 Formoterol Fumarate INH 0759 Carvedilol 12.5 MG BID 04/27 2100 AC 05/02 PO 0756 Furosemide 40 MG BID 04/28 0900 AC 05/02 PO 0756 Gabapentin 400 MG TID 04/27 1748 AC 05/02 PO 0755 Guaifenesin 600 MG BID 04/27 2100 AC 05/02 PO 0756 Hydroxyzine HCl 100 MG BID 04/27 2100 AC 05/02 PO 0757 Insulin Aspart 0 TIDAC 04/28 0800 AC 05/02 SC 0755 Losartan Potassium 25 MG DAILY 04/27 2100 AC 05/02 PO 0757 Methylprednisolone 40 MG Q12 04/30 0900 DC 05/01 IV 05/01 2300 2100 Montelukast Sodium 10 MG AT BEDTIME 04/27 2100 AC 05/01 PO 2108 Oxycodone/ 1 TAB Q8P PRN 04/29 1445 AC 05/02 Acetaminophen PO 0517 Oxymetazoline HCl 2 SPRAY BID PRN 04/27 1800 AC JOAQUIN Prednisone 40 MG DAILY 05/02 0900 AC 05/02 PO 0756 Tiotropium [place] 1 PUF DAILY 04/27 1800 AC 05/02 INH 0759 Last 24 Hrs of Lab/Joaquim Results Last 24 Hrs of Labs/Mics: Laboratory Tests 05/02/18 0700: Anion Gap 10, Estimated GFR > 60, BUN/Creatinine Ratio 44.0 H Microbiology 05/01 1718 LOWER RESP: Respiratory Culture - COLB 05/01 1718 LOWER RESP: Gram Stain - COLB Assessment/Plan Assessment: 63-year-old morbidly obese gentleman with medical history significant for HFrEF (25-30%) nonischemic cardiomyopathy s/p dual chamber PPM/AICD h/o cardiac arrest ), afib (on eliquis), COPD (on 3-4 L baseline o2), JORY (not on CPAP), DM, CKD, HLD, GERD/PUD, chronic lower extremity edema with venous stasis changes, gout s/ p left foot debridement, and multiple admissions for dyspnea secondary to COPD/ CHF exacerbation admitted to [facility] for increasing shortness of breath for 2 days. Patients code status DNI. Patient agrees to resuscitation if needed. Agrees to ABGs. ACUTE ON CHRONIC HYPOXIC/HYPERCAPENIC RESPIRATORY FAILURE * Patient has COPD; JORY not on CPAP. Patient is still wheezing * Continue prednisone 40 mg daily - day1 * Patient being followed by Dr. Ayala for pulmonology * 04/28: ABG was 7.20, 100.9, 81, 39 * Patient now agrees to attempt to use BiPAP and have ABGs done. * Continue monitoring on telemetry unit;patient with pacemaker and history of Afib and HFrEF * Continue Proventil; Symbicort 2 Puf BID; Spiriva 1Puf daily. * Patient is requiring nebulization 4 times a day. Will continue monitoring. CHF/A-FIB * patient has history of HFrEF (25-30%); proBNP 5600 on admission; troponin 0.05 on admssion * Continue Lasix 40mg BID * Strict Is and Os * Continue home A-Fib regimen (Eliquis, Amiodarone) * Continue with Coreg, Losartan and Metoprolol LISETTE ON CKD * Continue to monitor renal function * Current creatinine 1 from 1.4 CHRONIC LOWER EXTREMITY EDEMA * Right leg he has 1 x 1 cm ulcer. No evidence of any pus discharge. * Advised leg elevation. * Patient follows up with Vascular Surgeon for vein clipping in [place], [place] * wound care consulted DIABETES MELLITUS * Last 4 fingersticks 250, 190, 210, 210 * Accu-Checks; Novolog TIDAC DVT PPx: Patient on Eliquis for Atrial Fibrillation Diet: 2g salt restriction Code Status: DNI; agrees to be resuscitated Problem List: 1. Hypercapnic respiratory failure Pain Ratin Pain Location: B/L FEET Pain Goal: Remain pain free Pain Plan: percocet Tomorrow's Labs & Rationales: Damari Bravo MD 05/02/18 0929: Attending MD Review Statement Attending Statement Attending MD Statement: examined this patient, discuss w/resident/PA/FLATBED TRUCK DRIVER, agreed w/resident/PA/FLATBED TRUCK DRIVER, reviewed EMR data (avail), discussed with nursing, amended to note Attending Assessment/Plan: Patient seen and examined. Sitting up in the chair not in acute distress. He reports that he did not sleep well at night. States he only slept for 2 hours overnight. Complains of cough productive of brown phlegm. Complains of shortness of breath with exertion. He remains afebrile. He remains hemodynamically stable. He is maintaining saturation on 3.5 L oxygen which is his baseline. On examination he does not appear to be in respiratory distress. He has adequate entry bilaterally with mild expiratory rhonchi. He has no worsening of his peripheral edema. Compression wrapping in place bilateral lower extremities. Recommendations: -Continue bronchodilator therapy. Continue systemic steroid therapy. He has been transitioned to oral steroids today. Continue oxygen supplementation. -Sputum culture showed heavy growth of staph aureus. Also growing gram-negative rods and yeast. He has grown MRSA from his respiratory secretions in the past. He is afebrile. He has no leukocytosis. Follow-up with the pulmonology service if there is any benefit from empiric antibiotic therapy given his ongoing productive cough. -Mobilize patient as tolerated. -Continue compression wrapping of lower extremities.
--- NOTE | 2018-05-02 12:38 | PN- Pulmonary ---
Subjective HPI/Critical Care Issues: Patient was seen and examined this morning he is alert awake and oriented 3. No acute overnight events. Patient reports bilateral foot pain. He is getting Percocet which is giving him moderate relief. Also reports some difficulty breathing. Receiving nebulizer treatments. He is on BiPAP overnight for couple of hours. He is having productive cough. Sputum cultures were sent. Vitals remained stable afebrile, heart rate 76, respiratory rate 18, blood pressure 136/84, saturating at 95 on 3.5 L. Review of Systems Constitutional: Reports: see HPI. Objective Current Medications: Current Medications Sig/Keaton Start time Last Medication Dose Route Stop Time Status Admin Acetaminophen 650 MG Q6P PRN 04/29 1145 AC 05/02 PO 0848 Albuterol Sulfate 3 ML TID 04/28 0900 AC 05/02 INH 0812 Albuterol Sulfate 2 PUF Q4-6 PRN PRN 04/27 1745 AC INH Amiodarone HCl 200 MG DAILY 04/27 1745 AC 05/02 PO 0757 Ammonium Lactate 1 IDANIA DAILY 04/29 1125 AC 05/02 TOP 0759 Apixaban 5 MG BID 04/27 2100 AC 05/02 PO 0757 Atorvastatin Calcium 10 MG 1700 04/27 1746 AC 05/01 PO 1556 Budesonide/ 2 PUF BID 04/27 1800 AC 05/02 Formoterol Fumarate INH 0759 Carvedilol 12.5 MG BID 04/27 2100 AC 05/02 PO 0756 Furosemide 40 MG BID 04/28 0900 AC 05/02 PO 0756 Gabapentin 400 MG TID 04/27 1748 AC 05/02 PO 0755 Guaifenesin 600 MG BID 04/27 2100 AC 05/02 PO 0756 Hydroxyzine HCl 100 MG BID 04/27 2100 AC 05/02 PO 0757 Insulin Aspart 0 TIDAC 04/28 0800 AC 05/02 SC 1207 Losartan Potassium 25 MG DAILY 04/27 2100 AC 05/02 PO 0757 Methylprednisolone 40 MG Q12 04/30 0900 DC 05/01 IV 05/01 2300 2100 Montelukast Sodium 10 MG AT BEDTIME 04/27 2100 AC 05/01 PO 2108 Oxycodone/ 1 TAB Q6-PRN PRN 05/02 1215 AC 05/02 Acetaminophen PO 1208 Oxycodone/ 1 TAB Q8P PRN 04/29 1445 DC 05/02 Acetaminophen PO 0517 Oxymetazoline HCl 2 SPRAY BID PRN 04/27 1800 AC JOAQUIN Prednisone 40 MG DAILY 05/02 09 AC 05/02 PO 0756 Tiotropium [place] 1 PUF DAILY 04/27 1800 AC 05/02 INH 0759 Vital Signs & I&O Last 24 Hrs of Vitals and I&O: Vital Signs Date Time Temp Pulse Resp B/P B/P Pulse O2 O2 Flow FiO2 Mean Ox Delivery Rate 05/02 800 93 Nasal 3.5L Cannula 05/02 075 76 136/84 05/02 0757 76 136/84 05/02 0756 76 136/84 05/02 0642 98.1 73 22 136/88 94 05/02 0254 75 92 05/02 0011 75 98 05/01 2207 98.0 77 20 128/88 96 Nasal Cannula 05/01 2058 76 128/86 05/01 2047 Nasal 3.5L Cannula 05/01 1924 94 Nasal 3.5L Cannula 05/01 1410 98.4 77 20 120/84 94 Nasal 3.5L Cannula Intake & Output 05/02 1600 05/02 0800 05/02 0000 Intake Total 360 200 Output Total Balance 360 200 Intake, Oral 360 200 Patient 390 lb Weight Impression/Plan Impression/Plan Impression/Plan: General Appearance: well developed/nourished Other Physical Findings: General Appearance Alert, Oriented X3, Cooperative, Neck Supple, No JVD Cardiovascular No Murmurs, irregularly irregular, tachycardic 100s-120s Lungs end inspiratory and expiratory wheezing/rhonchi, no audible crackles Abdomen Normal Bowel Sounds, Soft, No Tenderness, No Masses Extremities No Clubbing, No Cyanosis, Normal Pulses, chronic venous stasis changes, 2+ bilateral lower extremity pitting edema to knees 62 year old male with a past medical history significant for HFrEF (25-30%) nonischemic cardiomyopathy s/p dual chamber PPM/AICD, 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 * Acute hypercarbic resp failure with copd and jory with noncompliance of bipap * COPDE now with sig sputum - colonization prob * Low ef with fluid overload * Atrial fibrillation * JORY noncompliant * History of gout REC Prednisone taper Low threshold for abx if he gets worse (sputum does show mrsa and g neg rods - prob colonization) Cont all meds Cont anticoag NEbs Lasix will follow
[2018-05-02 14:53] VITALS: BP 126/80
[2018-05-02 22:59] VITALS: BP 132/92
[2018-05-03 06:47] VITALS: BP 118/62
--- NOTE | 2018-05-03 07:05 | PN- Housestaff ---
Linda Watson 05/03/18 0705: Subjective Follow-up For: COPD Exacerbation Tele-Events Since Last Visit: NSR/1 degree AV block, 81, 0.14, 0.22 Subjective: Patient seen and examined at bedside this morning. He denies any acute overnight events. No chest pain, shortness of breath reported. Patient claims his lower extremity pain has been controlled. He is saturating well on 3.5 L NC will decrease to 2.5 today to have patients saturations in between 90-92. Patient continues to have productive cough. Sputum cultures pending. Review of Systems Constitutional: Denies: see HPI. Objective Last 24 Hrs of Vital Signs/I&O Vital Signs Date Time Temp Pulse Resp B/P B/P Pulse O2 O2 Flow FiO2 Mean Ox Delivery Rate 05/03 756 82 134/72 05/03 0756 82 132/74 05/03 0647 97.8 65 22 118/62 97 Nasal Cannula 05/03 0241 75 96 05/03 0025 75 97 05/02 2259 98.6 74 22 132/92 95 Nasal Cannula 05/02 2110 95 Nasal 3.5L Cannula 05/02 2050 75 05/02 2018 96 Nasal 3.5L Cannula 05/02 1635 75 95 05/02 1600 Nasal 3.5L Cannula 05/02 1453 98.3 76 20 126/80 94 08 1333 94 Nasal 3.5L Cannula Intake & Output 05/03 1600 05/03 0800 05/03 0000 Intake Total Output Total Balance Patient 390 lb Weight Physical Exam General Appearance: Alert, Oriented X3, Cooperative, No Acute Distress Skin: Lower extremity edema; in wraps HEENT: Atraumatic, PERRLA, EOMI Cardiovascular: Normal S1, Normal S2 Lungs: Ronchi appreciated in bilateral lung jaquez Abdomen: Normal Bowel Sounds, Soft Neurological: Strength at 5/5 X4 Ext, Normal Tone, Sensation Intact, Reflexes 2+ Extremities: No Clubbing, Significant lower extremeity edema/chronic venous insufficiency wrapped in dressing Vascular: Normal Pulses, Pulses Symmetrical Current Medications: Current Medications Sig/Keaton Start time Last Medication Dose Route Stop Time Status Admin Acetaminophen 650 MG .STK-MED ONE 05/02 844 DC PO 05/02 0845 Acetaminophen 650 MG Q6P PRN 04/29 1145 AC 05/02 PO 0848 Albuterol Sulfate 3 ML TID 04/28 09 AC 05/02 INH 2014 Albuterol Sulfate 2 PUF Q4-6 PRN PRN 04/27 1745 AC INH Amiodarone HCl 200 MG DAILY 04/27 1745 AC 05/03 PO 0756 Ammonium Lactate 1 IDANIA DAILY 04/29 1125 AC 05/03 TOP 0757 Apixaban 5 MG BID 04/27 2100 AC 05/03 PO 0757 Atorvastatin Calcium 10 MG 1700 04/27 1746 AC 05/02 PO 1658 Budesonide/ 2 PUF BID 04/27 1800 AC 05/03 Formoterol Fumarate INH 0759 Carvedilol 12.5 MG BID 04/27 2100 AC 05/03 PO 0756 Furosemide 40 MG BID 04/28 0900 AC 05/03 PO 0757 Gabapentin 400 MG TID 04/27 1748 AC 05/03 PO 0757 Guaifenesin 600 MG BID 04/27 2100 AC 05/03 PO 0757 Hydroxyzine HCl 100 MG BID 04/27 2100 AC 05/03 PO 0756 Insulin Aspart 0 TIDAC 04/28 0800 AC 05/03 SC 0752 Losartan Potassium 25 MG DAILY 04/27 2100 AC 05/03 PO 0757 Montelukast Sodium 10 MG AT BEDTIME 04/27 2100 AC 05/02 PO 2050 Oxycodone/ 1 TAB Q6-PRN PRN 05/02 1215 AC 05/03 Acetaminophen PO 0806 Oxycodone/ 1 TAB Q8P PRN 07/ 1445 DC 05/02 Acetaminophen PO 0517 Oxymetazoline HCl 2 SPRAY BID PRN 04/27 1800 AC JOAQUIN Prednisone 40 MG DAILY 05/02 0900 AC 05/03 PO 0757 Tiotropium [place] 1 PUF DAILY 04/27 1800 AC 05/03 INH 0758 Last 24 Hrs of Lab/Joaquim Results Last 24 Hrs of Labs/Mics: Laboratory Tests 05/03/18 0608: Sodium Pending, Potassium Pending, Chloride Pending, Carbon Dioxide Pending, Anion Gap Pending, BUN Pending, Creatinine Pending, BUN/Creatinine Ratio Pending , CBC w Diff Pending, WBC Pending, RBC Pending, Hgb Pending, Hct Pending, MCV Pending, MCH Pending, MCHC Pending, RDW Pending, Plt Count Pending, MPV Pending Assessment/Plan Assessment: A/P: 63 year-old morbidly obese gentleman with medical history significant for HFrEF (25-30%) nonischemic cardiomyopathy s/p dual chamber PPM/AICD h/o cardiac arrest ), afib (on eliquis), COPD (on 3-4 L baseline o2), JORY (not on CPAP), DM, CKD, HLD, GERD/PUD, chronic lower extremity edema with venous stasis changes, gout s/ p left foot debridement, and multiple admissions for dyspnea secondary to COPD/ CHF exacerbation admitted to [facility] for increasing shortness of breath. Acute on Chronmic Hypoxic/Hypercapenic Respiratory Failure * COPD; JORY not on CPAP; patient continue to have ronchi * patient on day 2 oral predinisone 40mg PO * decrease oxygen to 2.5 L to get saturations in 90-92% * Diamox 2 doses given PO 250mg BID for increased CO2 levels of 51 from 43 yesterday; repeat BEP and monitor * Patient seen by Dr. Puente/Lcuy * continue telemetry monitoring * continue nebulizer treatments/TRC/bronchodilator regimen; patient requiring nebulization 4X a day; continue to monitor * sputum cultures grown MRSA; gram negative rods and yeast; patient febrile with no leukocytosis; follow up pulmonology services if any benefit from empiric antibitoic CHF/AFIB * patient has history of HFrEF (25-30%) * continue laxix 40mg BID: Strict Is and Os * continue home A-fib regimen (Eliquis, Amiodarone) * continue with Coreg, Losartan, Metoprolol LISETTE ON CKD * continue to monitor renal function * current creatinine 1.1, 39 BUN Chronic Lower Extremity Edema * right leg 1x1 cm ulcer; no evidence of any pus or discharge * leg elevation advised * follows up with vascular surgeon in [place], [place] * Wound care following patient Diabetes Mellitus * last finger sticks 277, 202, 288, 288 * patient advised to monitor diet * continue Accu-Checks; Novolog TIDAC DVT PPx: Eliquis Diet: 2g salt restriction Code Status: DNI; agrees to be resuscitated Problem List: 1. COPD exacerbation 2. Systolic HF (heart failure) 3. Afib 4. Venous insufficiency Pain Ratin Pain Location: Lower extremity pain Pain Goal: Pain 4 or less Pain Plan: As per pain pathway Tomorrow's Labs & Rationales: N/A DVT/Prophylaxis: pharmacological MembrenoParthlisa 05/03/18 1138: Attending MD Review Statement Attending Statement Attending MD Statement: examined this patient, discuss w/resident/PA/PARAFFIN MACHINE OPERATOR, agreed w/resident/PA/PARAFFIN MACHINE OPERATOR, reviewed EMR data (avail), discussed with nursing, discussed with case mgmt Attending Assessment/Plan: pt seen and examined at bedside. Feels better. Increaseing bicarbonate secondary to copd with hypercapneia. will start on diamox. will give 2 doses today and if recheck is better tomorrow will plan dc . pt non complaint with bipap and diet as well. d/w pt the discharge plan.
[2018-05-03 08:12] LABS: ABSOLUTE BASOPHIL COUNT 0 /CUMM (0.0-0.2); ABSOLUTE EOSINOPHIL COUNT 0 /CUMM (0.0-0.7); ABSOLUTE GRANULOCYTE CT 5.3 /CUMM (1.4-6.5); ABSOLUTE MONOCYTE COUNT 0.8 /CUMM (0.10-0.60); BASOPHIL % 0.2 % (0.0-2.0); EOSINOPHIL % 0.3 % (0-5); HEMATOCRIT 44.2 % (42-52); MEAN CORPUSCULAR HGB 27.2 PG (27.0-31.0); MEAN CORPUSCULAR HGB CONC 31.2 G/DL (33.0-37.0); MEAN CORPUSCULAR VOLUME 87.3 FL (80.0-94.0); MEAN PLATELET VOLUME 7.1 FL (7.4-10.4); PLATELET COUNT 173 /CUMM (130-400); RBC DISTRIBUTION WIDTH 16.2 % (11.5-14.5); RED BLOOD CELL CT 5.07 /CUMM (4.70-6.10); WHITE BLOOD CELL COUNT 8.2 /CUMM (4.8-10.8)
--- NOTE | 2018-05-03 08:31 | PN- Pulmonary ---
Subjective HPI/Critical Care Issues: The patient is awake and alert. He reports feeling improved however he has an ongoing cough productive of green and yellow sputum. He has ongoing difficulty tolerating nocturnal BIPAP. He has ongoing shortness of breath which is a chronic issue for him. Objective Current Medications: Current Medications Sig/Keaton Start time Last Medication Dose Route Stop Time Status Admin Acetaminophen 650 MG .STK-MED ONE 05/02 844 DC PO 05/02 0845 Acetaminophen 650 MG Q6P PRN 04/29 1145 AC 05/02 PO 0848 Albuterol Sulfate 3 ML TID 04/28 09 AC 05/02 INH 2014 Albuterol Sulfate 2 PUF Q4-6 PRN PRN 04/27 1745 AC INH Amiodarone HCl 200 MG DAILY 04/27 1745 AC 05/03 PO 0756 Ammonium Lactate 1 IDANIA DAILY 04/29 1125 AC 05/03 TOP 0757 Apixaban 5 MG BID 04/27 2100 AC 05/03 PO 0757 Atorvastatin Calcium 10 MG 1700 04/27 1746 AC 05/02 PO 1658 Budesonide/ 2 PUF BID 04/27 1800 AC 05/03 Formoterol Fumarate INH 0759 Carvedilol 12.5 MG BID 04/27 2100 AC 05/03 PO 0756 Furosemide 40 MG BID 04/28 0900 AC 05/03 PO 0757 Gabapentin 400 MG TID 04/27 1748 AC 05/03 PO 0757 Guaifenesin 600 MG BID 04/27 2100 AC 05/03 PO 0757 Hydroxyzine HCl 100 MG BID 04/27 2100 AC 05/03 PO 0756 Insulin Aspart 0 TIDAC 04/28 0800 AC 05/03 SC 0752 Losartan Potassium 25 MG DAILY 04/27 2100 AC 05/03 PO 0757 Montelukast Sodium 10 MG AT BEDTIME 04/27 2100 AC 05/02 PO 2050 Oxycodone/ 1 TAB Q6-PRN PRN 05/02 1215 AC 05/03 Acetaminophen PO 0806 Oxycodone/ 1 TAB Q8P PRN 04/29 1445 DC 05/02 Acetaminophen PO 0517 Oxymetazoline HCl 2 SPRAY BID PRN 04/27 1800 AC JOAQUIN Prednisone 40 MG DAILY 05/02 0900 AC 05/03 PO 0757 Tiotropium [place] 1 PUF DAILY 04/27 1800 AC 05/03 INH 0758 Vital Signs & I&O Last 24 Hrs of Vitals and I&O: Vital Signs Date Time Temp Pulse Resp B/P B/P Pulse O2 O2 Flow FiO2 Mean Ox Delivery Rate 05/03 0756 82 134/72 05/03 0756 82 132/74 05/03 0647 97.8 65 22 118/62 97 Nasal Cannula 05/03 0241 75 96 05/03 0025 75 97 05/02 2259 98.6 74 22 132/92 95 Nasal Cannula 05/02 2110 95 Nasal 3.5L Cannula 05/02 2050 75 05/02 2018 96 Nasal 3.5L Cannula 05/02 1635 75 95 05/02 1600 Nasal 3.5L Cannula 05/02 1453 98.3 76 20 126/80 94 05/02 1333 94 Nasal 3.5L Cannula Intake & Output 05/03 1600 05/03 0800 05/03 0000 Intake Total Output Total Balance Patient 390 lb Weight Exam General Appearance: no apparent distress, alert, awake, comfortable Head: atraumatic, normal appearance Neck: supple Respiratory: quiet respiration, wheezing Cardiovascular: heart sounds distant Abdomen: normal bowel sounds, soft, non-tender Skin: intact, normal color, warm/dry Results Last 24 Hrs of Lab Results: Laboratory Tests 05/03/18 0608: Sodium Pending, Potassium Pending, Chloride Pending, Carbon Dioxide Pending, Anion Gap Pending, BUN Pending, Creatinine Pending, BUN/Creatinine Ratio Pending , CBC w Diff Pending, WBC Pending, RBC Pending, Hgb Pending, Hct Pending, MCV Pending, MCH Pending, MCHC Pending, RDW Pending, Plt Count Pending, MPV Pending Impression/Plan Impression/Plan Impression/Plan: 1. Acute hypercarbic resp failure with COPD and JORY with noncompliance of bipap. 2. COPDE now with sig sputum - colonization likely. 3. Low EF with fluid overload. 4. Atrial fibrillation. 5. JORY noncompliant with therapy. 5. History of gout. Recommendations: * Prednisone taper to continue. * Low threshold for antibiotics if patient worsens (sputum does show mrsa and g neg rods - prob colonization). * Cont all meds. * Cont anticoagulation. * Cont nebs/TRC/inhaler regimen.
[2018-05-03] MEDS ORDERED: PREDNISONE10 M2 PO (13:45)
[2018-05-03 14:17] VITALS: BP 140/90
[2018-05-03 20:00] VITALS: BP 124/82
--- NOTE | 2018-05-04 06:56 | PN- Housestaff ---
Linda Watson 05/04/18 0655: Subjective Follow-up For: COPD Exacerbation Subjective: Patient seen and examined at bedside this morning. Denies any overnight events. Patient prefers 3.5 L NC and does not want to be decreased. Patient saturating well at 98% on NC. He denies any chest pain, palpitations. He continues to have a productive cough producing phlegm that is colored orange due to eating [place] islander ices which he says helps him clear his airway. Patient claims he is ambulating to bathroom and wants to be indepenent. Advised to continue ambulating and watch his diet. Review of Systems Constitutional: Denies: see HPI. Objective Last 24 Hrs of Vital Signs/I&O Vital Signs Date Time Temp Pulse Resp B/P B/P Pulse O2 O2 Flow FiO2 Mean Ox Delivery Rate 05/04 806 98 Nasal 3.5L Cannula 05/04 07 97.6 78 18 132/88 98 05/04 0000 Nasal 3.5L Cannula 05/04 0000 77 97 05/03 2006 95 Nasal 3.5L Cannula 05/03 2000 99.5 76 20 124/82 96 Nasal 3.5L Cannula 05/03 1956 76 124/82 05/03 1600 Nasal 3.5L Cannula 05/03 1417 97.9 78 20 140/90 91 Nasal 3.5L Cannula Intake & Output 05/04 1600 05/04 0800 05/04 0000 Intake Total 480 Output Total Balance 480 Intake, Oral 480 Number 0 Bowel Movements Output, Urine Physical Exam General Appearance: Alert, Oriented X3, Cooperative, No Acute Distress, Mild Distress HEENT: Atraumatic, PERRLA, EOMI Cardiovascular: Regular Rate, Normal S1, Normal S2 Lungs: ronchi ausculated bilaterally Abdomen: Normal Bowel Sounds, Soft, No Tenderness Neurological: Normal Gait, Normal Speech, Strength at 5/5 X4 Ext, Normal Tone Extremities: lower extremity edema; wrapped by wound care Vascular: Normal Pulses, Pulses Symmetrical Current Medications: Current Medications Sig/Keaton Start time Last Medication Dose Route Stop Time Status Admin Acetaminophen 650 MG Q6P PRN 04/29 1145 AC 05/02 PO 0848 Acetazolamide 250 MG BID 05/03 900 DC 05/03 PO 05/03 2101 1956 Albuterol Sulfate 3 ML TID 04/28 900 AC 05/04 INH 0802 Albuterol Sulfate 2 PUF Q4-6 PRN PRN 04/27 1745 AC INH Amiodarone HCl 200 MG DAILY 04/27 1745 AC 05/04 PO 0836 Ammonium Lactate 1 IDANIA DAILY 04/29 1125 AC 05/03 TOP 0757 Apixaban 5 MG BID 04/27 2100 AC 05/04 PO 0836 Atorvastatin Calcium 10 MG 1700 04/27 1746 AC 05/03 PO 1702 Budesonide/ 2 PUF BID 04/27 1800 AC 05/04 Formoterol Fumarate INH 0837 Carvedilol 12.5 MG BID 04/27 2100 AC 05/04 PO 0836 Furosemide 40 MG BID 04/28 0900 AC 05/04 PO 0836 Gabapentin 400 MG TID 04/27 1748 AC 05/04 PO 0836 Guaifenesin 600 MG BID 04/27 2100 AC 05/04 PO 0836 Hydroxyzine HCl 100 MG BID 04/27 2100 AC 05/04 PO 0835 Insulin Aspart 0 TIDAC 04/28 0800 AC 05/04 SC 0835 Losartan Potassium 25 MG DAILY 04/27 2100 AC 05/04 PO 0836 Montelukast Sodium 10 MG AT BEDTIME 04/27 2100 AC 05/03 PO 1956 Oxycodone/ 1 TAB Q6-PRN PRN 05/02 1215 AC 05/04 Acetaminophen PO 0831 Oxymetazoline HCl 2 SPRAY BID PRN 04/27 1800 AC JOAQUIN Patient Medication 1 ED ONE ONE 05/03 1230 DC 05/04 Teaching ED 05/03 1231 0650 Prednisone 40 MG DAILY 05/02 0900 AC 05/04 PO 0836 Sodium Polystyrene 60 ML ONCE ONE 05/04 09 DC 05/04 Sulfonate PO 05/04 0901 0950 Tiotropium [place] 1 PUF DAILY 04/27 1800 AC 05/04 INH 0836 Last 24 Hrs of Lab/Joaquim Results Last 24 Hrs of Labs/Mics: Laboratory Tests 05/04/18 0652: Anion Gap 14, Estimated GFR 56 L, BUN/Creatinine Ratio 33.8 H Assessment/Plan Assessment: A/P: 63 year-old morbidly obese gentleman with medical history significant for HFrEF (25-30%) nonischemic cardiomyopathy s/p dual chamber PPM/AICD h/o cardiac arrest ), afib (on eliquis), COPD (on 3-4 L baseline o2), JORY (not on CPAP), DM, CKD, HLD, GERD/PUD, chronic lower extremity edema with venous stasis changes, gout s/ p left foot debridement, and multiple admissions for dyspnea secondary to COPD/ CHF exacerbation admitted to [facility] for increasing shortness of breath. Acute on Chronmic Hypoxic/Hypercapenic Respiratory Failure * COPD; JORY not on CPAP; patient continue to have ronchi * Patient seen by Dr. Dewey today for pulmonolgy 05/04 -Advised to try nocturnal APAP 4-18 cm H2O; otherwise continue regimen * Continue oral prednisone 40mg PO daily * Oxygen back to 3.5 L NC as per patient; saturating well * Diamox 2 doses given PO 250mg BID for increased CO2 levels of 51 Improved CO2 levels to 39; * K+ elevated to 5.4; will monitor; given 1 dose keaxylate * Patient seen by Dr. Puente/Lucy * continue telemetry monitoring * continue nebulizer treatments/TRC/bronchodilator regimen; patient requiring nebulization 4X a day; continue to monitor * sputum cultures grown MRSA; gram negative rods and yeast; patient febrile with no leukocytosis; no need for antibiotics at this time CHF/AFIB * patient has history of HFrEF (25-30%) * continue laxix 40mg BID: Strict Is and Os * continue home A-fib regimen (Eliquis, Amiodarone) * continue with Coreg, Losartan, Metoprolol LISETTE ON CKD * continue to monitor renal function * current creatinine 1.3; BUN: 44 Chronic Lower Extremity Edema * right leg 1x1 cm ulcer; no evidence of any pus or discharge * leg elevation advised * follows up with vascular surgeon in [place], [place] * Wound care following patient Diabetes Mellitus * last finger sticks 211, 211, 291, 382 * patient advised to monitor diet * continue Accu-Checks; Novolog TIDAC Patient for possible discharge today with much improvement. Will follow up 2PM BEP for potassium. maintenance department manager Dena on board for patients case. DVT PPx: Eliquis Diet: 2g salt restriction Code Status: DNI; agrees to be resuscitated Problem List: 1. CHF exacerbation 2. COPD (chronic obstructive pulmonary disease) 3. Type 2 diabetes mellitus 4. DNI (do not intubate) Pain Ratin Pain Location: Lower extremities Pain Goal: Pain 4 or less Pain Plan: As per pain pathway Tomorrow's Labs & Rationales: Possible discharge; BEP 2PM today 05/04 DVT/Prophylaxis: pharmacological Discharge Plan Stable for Discharge? Yes Ingris Membreno 05/04/18 1214: Attending MD Review Statement Attending Statement Attending MD Statement: examined this patient, discuss w/resident/PA/LAPEL PADDER, agreed w/resident/PA/LAPEL PADDER, reviewed EMR data (avail), discussed with nursing, discussed with case mgmt Attending Assessment/Plan: Hyperkalemia- pt does not follow any diet restrictions. will give one dose of kayexelate and repeat BEP at 2 pm. Other issues stable. cont current managemetn. plan dc this afternoon . d/w pt the discharge plan and he is ok with that.
[2018-05-04 07:06] VITALS: BP 132/88
--- NOTE | 2018-05-04 07:15 | PN- Pulmonary ---
Subjective HPI/Critical Care Issues: The patient is awake and alert. He reports being unable to sleep in bed. He continues to sit upright in a chair. He is unable to tolerate BiPAP for any significant period of time at night. He continues to void frequently due to Lasix. He has an ongoing cough productive of green sputum however this is chronic for him and as per the primary team has not significantly changed. He remains short of breath with exertion but once again this is not changed over his baseline. Objective Current Medications: Current Medications Sig/Keaton Start time Last Medication Dose Route Stop Time Status Admin Acetaminophen 650 MG Q6P PRN 04/29 1145 AC 05/02 PO 0848 Acetazolamide 250 MG BID 05/03 0900 DC 05/03 PO 05/03 2101 195 Albuterol Sulfate 3 ML TID 04/28 09 AC 05/03 INH 2003 Albuterol Sulfate 2 PUF Q4-6 PRN PRN 04/27 1745 AC INH Amiodarone HCl 200 MG DAILY 04/27 1745 AC 05/03 PO 0756 Ammonium Lactate 1 IDANIA DAILY 04/29 1125 AC 05/03 TOP 0757 Apixaban 5 MG BID 04/27 2100 AC 05/03 PO 195 Atorvastatin Calcium 10 MG 1700 04/27 1746 AC 05/03 PO 1702 Budesonide/ 2 PUF BID 04/27 1800 AC 05/03 Formoterol Fumarate INH 1957 Carvedilol 12.5 MG BID 04/27 2100 AC 05/03 PO 195 Furosemide 40 MG BID 04/28 0900 AC 05/03 PO 195 Gabapentin 400 MG TID 04/27 1748 AC 05/03 PO 1958 Guaifenesin 600 MG BID 04/27 2100 AC 05/03 PO 195 Hydroxyzine HCl 100 MG BID 04/27 2100 AC 05/03 PO 195 Insulin Aspart 0 TIDAC 04/28 0800 AC 05/03 SC 1702 Losartan Potassium 25 MG DAILY 04/27 2100 AC 05/03 PO 075 Montelukast Sodium 10 MG AT BEDTIME 04/27 2100 AC 05/03 PO 195 Oxycodone/ 1 TAB Q6-PRN PRN 05/02 1215 AC 05/03 Acetaminophen PO 195 Oxymetazoline HCl 2 SPRAY BID PRN 04/27 1800 AC JOAQUIN Patient Medication 1 ED ONE ONE 05/03 1230 DC 05/04 Teaching ED 05/03 1231 0650 Prednisone 40 MG DAILY 05/02 0900 AC 05/03 PO 0757 Tiotropium [place] 1 PUF DAILY 04/27 1800 AC 05/03 INH 0758 Exam General Appearance: no apparent distress, alert, awake, comfortable Head: atraumatic, normal appearance Neck: supple Respiratory: quiet respiration, wheezing Cardiovascular: heart sounds distant Abdomen: normal bowel sounds, soft, non-tender Skin: intact, normal color, warm/dry, chronic venous stasis with chronic lower extremity edema Vital Signs & I&O Last 24 Hrs of Vitals and I&O: Vital Signs Date Time Temp Pulse Resp B/P B/P Pulse O2 O2 Flow FiO2 Mean Ox Delivery Rate 05/04 706 97.6 78 18 132/88 98 05/04 0000 Nasal 3.5L Cannula 05/04 0000 77 97 05/03 2006 95 Nasal 3.5L Cannula 05/03 2000 99.5 76 20 124/82 96 Nasal 3.5L Cannula 05/03 1956 76 124/82 05/03 1600 Nasal 3.5L Cannula 05/03 1417 97.9 78 20 140/90 91 Nasal 3.5L Cannula 05/03 0850 97 Nasal 3.5L Cannula 05/03 0800 96 Nasal 3.5L Cannula 05/03 0756 82 134/72 05/03 0756 82 132/74 Intake & Output 05/04 0800 05/04 0000 05/03 1600 Intake Total 480 1000 Output Total Balance 480 1000 Intake, Oral 480 1000 Number 0 Bowel Movements Output, Urine Results Last 24 Hrs of Lab Results: Laboratory Tests 05/04/18 0652: Sodium Pending, Potassium Pending, Chloride Pending, Carbon Dioxide Pending, Anion Gap Pending, BUN Pending, Creatinine Pending, BUN/Creatinine Ratio Pending Impression/Plan Impression/Plan Impression/Plan: 1. Acute hypercarbic resp failure with COPD and JORY with noncompliance of bipap. 2. COPDE now with sig sputum - colonization likely. 3. Low EF with fluid overload. 4. Atrial fibrillation. 5. JORY noncompliant with therapy. 5. History of gout. Recommendations: * Prednisone taper to be completed. * The patient remains off antibiotics. * Cont anticoagulation. * Cont nebs/TRC/inhaler regimen. * Ambulate in hallway. * Try nocturnal APAP 4-18 cm H20. * The patient is homeless and is working with the primary team and social media senior associate on discharge options. If he remains homeless he will not be a candidate for nocturnal positive airway pressure. His risk for readmission is high given his current situation, noting the patient and the primary team are aware of this issue.
[2018-05-04 16:00] VITALS: BP 108/62
--- NOTE | 2018-05-04 16:33 | Discharge Summary ---
Visit Information Visit Dates Admission Date: 04/29/18 Discharge Date: 05/04/18 Hospital Course Course Attending Physician: Temi HARPER,Ingris Stahl Primary Care Physician: Vinicio CODY,[facility] Hospital Course: Patient is a 63-year-old morbidly obese male with a history of CHF, chronic venous insufficiency, COPD (on baseline 3-4 L O2), A. fib on elloquis, sleep apnea, cardiomyopathy (status post AICD placement), DM type 2 on metformin, hyperlipidemia, prior AL, diabetes sent in from the CHF clinic with hypoxia to the 60s. Patient was given lasix dose in the clinic as well. Patient reported he had has been short of breath for 2 days with vague generalized chest discomfort. Patient states that 2 days ago the weather change has caused him to have significant discomfort in breathing and has became worse today. Of note, patient lives out of his truck. The patient does state that he has associated chest pain but only during cough which is productive in nature producing yellow-white sputum. The shortness of breath on admission was non positional and the patient denied any headaches, nausea or vomiting. Mr. Padilla follows up with Dr. George who he last saw a week prior to admission. As for his pulmonology and wound care he follows up with Dr. Puente. Furthermore, patient has lower extremity edema which he states he is getting vein ligation with a physician in [place], [place]. Patient has been in and out of [facility] on multiple admissions since July 2017. He has further history of duodenal and gastric ulcers for which he was seen by Dr. Salazar. Most recently patient was seen in mid March 2017 for CHF exacerbation. EMERGENCY DEPARTMENT: Vital Signs: 98.4, 77, 24, 114/75, 67% RA Patient was alert and oriented in mild distress but able to complete sentences. Wheezing was demonstrated on physical exam and cough on inspiration. On arrival to the emergency department the patient was hypoxic to 67 on 4 L nasal cannula. Patient has chronic lower extremity edema, reported that his edema is no worse than usual. He was put on BiPAP for ten minutes before denying the treatment due to choking up and sputum production. He was given nebulizers and steroids in the ED as well with minimal improvement. First set of troponins were negative with no EKG changes. CXR: demonstrated central vascular congestion and cardiomegaly. Initial ABG showed a pH of 7.26 and PCO2 of 81. His EKG shows a paced rhythm, and troponin was 0.05. Patient had a proBNP of 5600 and has ranged from 5000-30669 on previous admiussions. Patient was admitted to the telemetry unit for further monitoring of possible CHF/COPD exacerbation. During patients admission to the telemetry unit he was treated and evaluated for the following problems: 1. ACUTE HYPOXIC HYPERCARBIC RESPIRATORY FAILURE 2/2 COPD EXACERBATION /JORY NOT ON CPAP 2. CHRONIC SYSTOLIC CHF 3. A-FIB ON ELIQUIS 5. CHRONIC LOWER EXTREMITY EDEMA 6. TYPE 2 DM ACUTE HYPOXIC HYPERCARBIC RESPIRATORY FAILURE This event was most likely secondary to the patients underlying COPD and chronic JORY with no use of CPAP. He denies any smoking history or tobacco use in his lifetime. However, he lives out of his car and attributed the circumstances to the increasing heat and unsuitable living conditions. Vitals were taken oon every shift and patient monitered in the telemetry unit. Pulmonology was consulted. Patients initial ABG demonstrated a respiratory acidosis. He continued to refuse BiPAP on nonrebreather mask during his stay with minimal use due to inconvinience and a choking feeling during use. Patient was continued on IV steroids starting at 40mg IV q8h and continued on [facility] nebs and his home COPD medications. Repeat ABG on 04/28/18 demonstrated 7.20. 100.9, 81, 39. Patient educated/discussed extensively about the consequences of refusing BiPAP treatment with ABGs. He had clear capacity and understanding of denying this treatmetn which has been consistent with previous admissions. Patient claimed to be DNI but agreed to be resuscitated. Patient remained an adequate saturation on 3.5 L NC during his admission. Sputum cultures were taken. Cultures grown MRSA; gram negative rods and yeast. No antibitoics started as patient was afebrile with no white count and did not demonstrate clinical presentation. Patient was discharged on home COPD management and steroid taper. Advised to return on worsening symptoms. ATRIAL FIBRILALTION ON ELIQUIS Patient was monitored on the telemetry unit consistently with no significant events. His home medications were continued including Amiodarone, Eliquis, Coreg , Losartan and Metoprolol. Rates were controlled with no significant changes on EKG during admission. Patient with pacemaker. CHRONIC SYSTOLIC CHF Patient has had multiple admissions to [facility] for CHF/COPD exacerbations. Did not appear to be in acute CHF exacerbation at the present admission. He has a history of HFrEF (25-30%). ProBNP on admission was 5600 with a troponin of 0.05. Patient was however monitored on the teleemtry unit. Serial troponins and EKGs were negative. Patient was continued on his home medications and dosage of diuretcs. Strict Is/Os were monitred. Vitals monitored each shift. Pulmonology was consulted. Patient discharged on home medications. Advised to follow up outpatient. CHRONIC LOWER EXTREMITY EDEMA Patient had chronic lower extremity swelling and dressing that was present on admission. He had significant wheeping and drainage during examination in the ED. Wound care was consulted and patient was wrapped consistently. Patient follows with Dr. Puente for wound care. In addition he follows up with a vascular surgeon for vein clippin in [place], [place]. Patient advised for proper wound care and follow up outpatient. DIABETES MELLITUS Accu-Checks; Novolog TIDAC; Blood sugars monitored each shift. Patient educated on diet. Patient was discharged on 05/04/18 after clearance from pulmonology standpoint and case management. Code Status: DNI DVT PPx: On Eliquis Diet: 2g salt restriction Pain: As per pain pathway Allergies: Coded Allergies: No Known Allergies (01/08/18) Disposition Summary Disposition Principal Diagnosis: COPD Exacerbation Additional Diagnosis: Chronic CHF Systolic Dysfunction Chronic Lower Extremity Edema Discharge Disposition: home or self care Discharge Instructions General Discharge Information Code Status: Do Not Intubate Patient's Diet: 2 gram salt restriction; Heart Healthy Patient's Activity: As tolerated Follow-Up Instructions/Appts: Follow up with PCP upon discharge. Follow up with pulmonology upon 1 week of discharge. Follow up with wound care within 1 week of discharge. Monitor diet and salt restriction in diet. Keep wounds clean and dry and bandaged. Return to ED if worsening chest pain, tightness or shortness of breath. Medications at Discharge Discharge Medications: Continue taking these medications: Umeclidinium [place] (Incruse Ellipta) 62.5 MCG/ACTUATION BLST.W.DEV 1 PUFF Inhale through mouth DAILY Qty = 90 Comments: NOT GIVEN IN HOSPITAL Albuterol Sulfate (Proair Hfa) 90 MCG HFA.AER.AD 2 Puff Inhale through mouth EVERY 4-6 HOURS NEEDED as needed for COPD Comments: NOT TAKEN IN HOSPITAL Glimepiride (Glimepiride) 1 MG TABLET 1 Tablet ORAL TWICE DAILY Comments: NOT GIVEN IN HOSPITAL INSULIN GIVEN NEEDED PER SCALE Montelukast Sodium (Singulair) 10 MG TABLET 1 Tablet ORAL TWICE DAILY Comments: Last Taken: 05/04/18 Time: 8:00PM Metformin HCl (Glucophage) 1,000 MG TABLET 1 Tablet ORAL TWICE DAILY Comments: NOT GIVEN IN HOSPITAL Ipratropium/Albuterol Sulfate (Combivent Respimat Inhal [place]) 20 MCG-100 MCG/ ACTUATION MIST.INHAL 2 PUFF Inhale through mouth TWICE DAILY Qty = 8 Comments: Last Taken: 05/04/18 Time: 1:30 PM Hydroxyzine Hydrochloride (Atarax) 50 MG TABLET 2 Tablet ORAL TWICE DAILY Qty = 120 Comments: Last Taken: 05/04/18 Time: 8:30 AM Ferrous Sulfate (Ferrous Sulfate) 325 MG (65 MG IRON) TABLET 1 Tablet ORAL DAILY Qty = 30 Comments: NOT TAKEN IN HOSPITAL Fluticasone/Salmeterol (Advair 500-50 Diskus) 500 MCG-50 MCG/DOSE BLST.W.DEV 1 Puff Inhale through mouth TWICE DAILY Qty = 60 Comments: NOT GIVEN WHILE IN HOSPITAL Febuxostat (Uloric) 40 MG TABLET 40 Milligram ORAL DAILY Qty = 30 Comments: Last Taken: NOT GIVEN IN THE HOSPITAL Time: Ammonium Lactate (Ammonium Lactate) 12 % CREAM..G. 12 Percent TOPICAL TWICE DAILY Qty = 1 Instructions: . Comments: Last Taken: 05/04/18 Time: 2:00 PM Gabapentin (Gabapentin) 400 MG CAPSULE 1 Capsule ORAL THREE TIMES DAILY Comments: Last Taken: 05/04/18 Time: 2:00 PM Carvedilol (Coreg) 25 MG TABLET 0.5 Tablet ORAL TWICE DAILY Comments: Last Taken: 05/04/18 Time: 08:30 AM Acetaminophen (Acetaminophen) 500 MG TABLET 1 Tablet ORAL DAILY as needed for PAIN Qty = 30 Instructions: PLEASE ALTERNATE WITH NAPROXEN FOR PAIN Comments: Last Taken: 05/02/18 Time: 8:30 AM Apixaban (Eliquis) 5 MG TABLET 1 Tablet ORAL TWICE DAILY Qty = 60 Comments: Last Taken: 05/04/18 Time: 8:30 AM Amiodarone (Cordarone) 200 MG TAB 1 Tablet ORAL DAILY Qty = 30 Comments: Last Taken: 05/04/18 Time: 8:30 AM Atorvastatin Calcium (Atorvastatin Calcium) 10 MG TABLET 1 Tablet ORAL DAILY Qty = 30 Comments: Last Taken: 05/04/18 Time: 05:00 PM Guaifenesin (Guaifenesin ER) 600 MG TAB.ER.12H 1 Tablet ORAL TWICE DAILY Qty = 20 Comments: Last Taken: 05/04/18 Time: 8:30 AM Oxymetazoline HCl (Nasal Decongestant) 0.05 % SPRAY 2 [place] In the nose TWICE DAILY as needed for NASAL CONGESTION Qty = 1 Comments: NOT TAKEN IN HOSPITAL Dicyclomine HCl (Dicyclomine HCl) 10 MG CAPSULE 1 Capsule ORAL THREE TIMES DAILY Qty = 9 Comments: NOT TAKEN IN HOSPITAL Furosemide (Lasix) 40 MG TABLET 40 Milligram ORAL TWICE DAILY Qty = 60 Comments: Last Taken: 05/04/18 Time: 8:30 AM Losartan Potassium (Losartan Potassium) 25 MG TABLET 25 Milligram ORAL DAILY Qty = 30 Instructions: . Comments: Last Taken: 05/04/18 Time: 8:30 AM Start taking the following new medications: Prednisone (Prednisone) 10 MG TABLET 1 Tablet ORAL See Instructions Qty = 18 No Refills Instructions: TAKE 3 TABLETS FOR 3 DAYS TAKE 2 TABLETS FOR 3 DAYS TAKE 1 TABLET FOR 3 DAYS THEN STOP PREDNISONE. Comments: Last Taken: 05/04/18 Time: 8:30 AM Copies To: Carlee Mooney APRN Attending MD Review Statement Documenting Attending: Inrgis Membreno MD Other Findings: agree with the above dc plan.
[2018-05-04] MEDS ORDERED: PREDNISONE10 M2 PO (16:35)
== END 2018-05-04 18:40 | DRG 291 ==
LOC: ERH 14:25 → ERHI 16:28 → 1NO 16:28 → ENRESERV 17:56 → ENTRNSPT 18:21 → EDTRNSPTSTS 18:31 → EDTRNSPT 18:31 → 1NO 18:53 → CMPTRNSPT 19:03 → 1NO 04-29 10:24 → ENPENDDIS 05-04 16:38 → ENTRNSPT 05-04 17:57 → EDTRNSPTSTS 05-04 18:35 → EDTRNSPT 05-04 18:35 → 1NO 05-04 18:40 → CMPTRNSPT 05-04 18:46
PROVIDERS: Hospitalist; Physical Medicine & Rehabilitation Pain Medicine; Physician Assistant; Student in an Organized Health Care Education/Training Program
PROC: 5A09457 Assistance with Respiratory Ventilation, 24-96 Consecutive Hours, Continuous Positive Airway Pressure (ICD-10-PCS; principal; 2018-04-28)
DX: I13.0 Hypertensive heart and chronic kidney disease with heart failure and stage 1 through stage 4 chronic kidney disease, or unspecified chronic kidney disease (principal); J96.22 Acute and chronic respiratory failure with hypercapnia; I50.23 Acute on chronic systolic (congestive) heart failure; J96.21 Acute and chronic respiratory failure with hypoxia; J44.1 Chronic obstructive pulmonary disease with (acute) exacerbation; N17.9 Acute kidney failure, unspecified; N18.9 Chronic kidney disease, unspecified; I42.8 Other cardiomyopathies; E66.01 Morbid (severe) obesity due to excess calories; I48.2 Chronic atrial fibrillation; Z79.01 Long term (current) use of anticoagulants; G47.33 Obstructive sleep apnea (adult) (pediatric); Z95.810 Presence of automatic (implantable) cardiac defibrillator; I87.2 Venous insufficiency (chronic) (peripheral); Z79.84 Long term (current) use of oral hypoglycemic drugs; M06.9 Rheumatoid arthritis, unspecified; M10.9 Gout, unspecified; D64.9 Anemia, unspecified; N40.0 Benign prostatic hyperplasia without lower urinary tract symptoms; Z90.79 Acquired absence of other genital organ(s); Z99.81 Dependence on supplemental oxygen; Z66 Do not resuscitate; Z79.51 Long term (current) use of inhaled steroids; M79.672 Pain in left foot; M79.671 Pain in right foot; I44.0 Atrioventricular block, first degree; E11.22 Type 2 diabetes mellitus with diabetic chronic kidney disease
CPT/HCPCS: 2NAP; 6020; 87184; 36415; 36592; 71045; 82436; 87070; 87071; 87147; 93005; 93010; 96374; 99291; G0378; J2920; J2930; J3490

== ENCOUNTER 2018-05-08 21:57 | Inpatient (IN) | payer OTHER, MEDICARE ==
[~2018-05-08] VITALS: Ht 182.9 cm; Wt 164.7 kg
[2018-05-08 22:42] LABS: ABSOLUTE BASOPHIL COUNT 0 /CUMM (0.0-0.2); ABSOLUTE EOSINOPHIL COUNT 0 /CUMM (0.0-0.7); ABSOLUTE GRANULOCYTE CT 12.9 /CUMM (1.4-6.5); ABSOLUTE LYMPH COUNT 1.5 /CUMM (1.2-3.4); ABSOLUTE MONOCYTE COUNT 0.9 /CUMM (0.10-0.60); BASOPHIL % 0.3 % (0.0-2.0); EOSINOPHIL % 0.2 % (0-5); GRANULOCYTE % 84.3 % (42.2-75.2); HEMATOCRIT 44.3 % (42-52); MEAN CORPUSCULAR HGB CONC 31.4 G/DL (33.0-37.0); MEAN PLATELET VOLUME 7.5 FL (7.4-10.4); PLATELET COUNT 189 /CUMM (130-400); RBC DISTRIBUTION WIDTH 16.7 % (11.5-14.5); RED BLOOD CELL CT 5.15 /CUMM (4.70-6.10)
[2018-05-08 22:43] LABS: WHITE BLOOD CELL COUNT 15.4 /CUMM (4.8-10.8)
--- NOTE | 2018-05-08 23:12 | ED GENERAL ADULT ---
History of Present Illness General Chief Complaint: Dyspnea (COPD, CHF, Other) Stated Complaint: BYSTANDERS CALLED 911, APPEARED ILL Allergies Coded Allergies: No Known Allergies (01/08/18) Reconcile Medications Acetaminophen 500 MG TABLET 1 TAB PO DAILY PRN PAIN PLEASE ALTERNATE WITH NAPROXEN FOR PAIN Albuterol Sulfate (Proair Hfa) 90 MCG HFA.AER.AD 2 PUF INH Q4-6 PRN PRN COPD (Reported) Amiodarone (Cordarone) 200 MG TAB 1 TAB PO DAILY HEART RATE Ammonium Lactate 12 % CREAM..G. 12 % TP BID foot fissures . Apixaban (Eliquis) 5 MG TABLET 1 TAB PO BID AFIB Atorvastatin Calcium 10 MG TABLET 1 TAB PO DAILY CHOLESTEROL Carvedilol (Coreg) 25 MG TABLET 0.5 TAB PO BID HIGH BLOOD PRESSURE (Reported) Dicyclomine HCl 10 MG CAPSULE 1 CAP PO TID ABDOMINAL PAIN Febuxostat (Uloric) 40 MG TABLET 40 MG PO DAILY Gout Ferrous Sulfate 325 MG (65 MG IRON) TABLET 1 TAB PO DAILY anemia Fluticasone/Salmeterol (Advair 500-50 Diskus) 500 MCG-50 MCG/DOSE BLST.W.DEV 1 PUF INH BID COPD (Reported) Furosemide (Lasix) 40 MG TABLET 40 MG PO BID Fluid Overload Gabapentin 400 MG CAPSULE 1 CAP PO TID NEUROPATHY (Reported) Glimepiride 1 MG TABLET 1 TAB PO BID DM (Reported) Guaifenesin (Guaifenesin ER) 600 MG TAB.ER.12H 1 TAB PO BID CONGSETION Hydroxyzine Hydrochloride (Atarax) 50 MG TABLET 2 TAB PO BID MUCUS (Reported) Ipratropium/Albuterol Sulfate (Combivent Respimat Inhal [place]) 20 MCG-100 MCG/ ACTUATION MIST.INHAL 2 PUFF INH BID copd (Reported) Losartan Potassium 25 MG TABLET 25 MG PO DAILY heart health . Metformin HCl (Glucophage) 1,000 MG TABLET 1 TAB PO BID DM (Reported) Montelukast Sodium (Singulair) 10 MG TABLET 1 TAB PO BID copd (Reported) Oxymetazoline HCl (Nasal Decongestant) 0.05 % SPRAY 2 SPRAY JOAQUIN BID PRN NASAL CONGESTION Prednisone 10 MG TABLET 1 TAB PO SI COPD TAKE 3 TABLETS FOR 3 DAYS TAKE 2 TABLETS FOR 3 DAYS TAKE 1 TABLET FOR 3 DAYS THEN STOP PREDNISONE. Umeclidinium [place] (Incruse Ellipta) 62.5 MCG/ACTUATION BLST.W.DEV 1 PUFF INH DAILY COPD (Reported) Triage Note: RECEIVED 63 YO MALE WITH HX OF OBESITY, COPD AND CHF, BIBA FROM [facility]. 911 WAS CALLED BY BYSTANDERS WHO WITNESSED PT LOOKING VERY ILL, BENDING OVER AND TRIPODING. PT O2 DEPENDANT, NORMALLY ON 3.5L O2 VIA N/C. PT WAS NOT ON ANY O2 UPON EMS ARRIVAL. PT O2 SATS IN 70'S UPON EMS ARRIVAL. PT PLACED ON 100% O2 VIA NRB. O2 SATS UPON ARRIVAL TO THE ED 100%. PT WAS RECENTLY DISCHARGED FROM [facility] THIS THURSDAY. (Franky ESPINOZA,Sabiha) Vital Signs & Intake/Output Vital Signs & Intake/Output Vital Signs Date Time Temp Pulse Resp B/P B/P Pulse O2 O2 Flow FiO2 Mean Ox Delivery Rate 05/09 0036 98.9 88 22 113/78 96 BIPAP 05/08 2242 94 BIPAP 40% 05/08 2241 76 94 05/08 2208 101.0 77 16 108/56 98 Non 10L ReBreather ED Intake and Output 05/09 0000 05/08 1200 Intake Total Output Total Balance Patient 385 lb Weight Weight Reported by Patient Measurement Method (Patrick Banuelos DO) Past History Travel History Traveled to [place] past 21 day No Medical History Neurological: NONE EENT: NONE Cardiovascular: AFIB, CAD, cardiomyopathy, CHF, chronic venous insuff, hyperlipidemia, CARDIAC ARREST S/P LWC PACER with DEFIB Respiratory: COPD, SLEEP APNEA O2 3.5L NC @ [facility] Gastrointestinal: constipation, peptic ulcer disease, EGD 08/10 showed numerous gastric and duodenal ulcers Hepatic: NONE Renal: benign prost hyperplasia, TEMPORORY DIALYSIS Musculoskeletal: gout, rheumatoid arthritis Psychiatric: NONE Endocrine: diabetes Blood Disorders: anemia Cancer(s): NONE 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 (Franky ESPINOZA,Sabhia) Progress Initial ED EKG: rhythm (sinus), rate (75), no ST T wave changes (Franky ESPINOZA,Sabiha) Differential Diagnoses I considered the following diagnoses in my evaluation of the patient: Plan of Care: Orders Procedure Date/time Status Nothing by Mouth 05/09 B Active Patient Data 05/09 44 Active ED Holding Orders 05/09 43 Active Admit to inpatient 05/09 43 Active Vital Signs 05/09 43 Active Code Status 05/09 43 Active BIPAP 05/08 2220 Complete BLOOD CULTURE 05/08 2209 Active URINALYSIS 05/08 2209 Active LACTIC ACID 05/08 2207 Complete ARTERIAL BLOOD GAS (GEN) 05/08 2206 Complete TROPONIN LEVEL 05/08 2204 Complete MAGNESIUM 05/08 2204 Complete COMPREHENSIVE METABOLIC PANEL 05/08 2204 Complete CBC WITHOUT DIFFERENTIAL 05/08 2204 Complete B-TYPE NATRIURETIC PEP (BNP) 05/08 2204 Complete EKG 05/08 2204 Active Current Medications Sig/[place] Start time Last Medication Dose Stop Time Status Admin Furosemide 40 MG ONCE ONE 05/09 100 UNVr (Lasix) 05/09 101 Laboratory Tests 05/08/18 2300: Lactic Acid 1.5 05/08/18 2300: Anion Gap 8, Estimated GFR > 60, BUN/Creatinine Ratio 19.2, Glucose 186 H, Calcium 8.9, Magnesium 1.9, Total Bilirubin 1.2, AST 12 L, ALT 28, Alkaline Phosphatase 72, Troponin I 0.07, Frq-[id number]-Gxoyknefjvt Pept 3490 H, Total Protein 6.3, Albumin 3.2 L, Globulin 3.1, Albumin/Globulin Ratio 1.0 L 05/08/18 2230: pH 7.28 *L, pCO2 62 *H, pO2 99, HCO3 28, ABG O2 Sat (Measured) 95.0 L, P-50 ( Temp Corrected) Y, Carboxyhemoglobin 0.8 L, O2 Concentration % 100%, Temperature 101.0 H, O2 Delivery Method NRB, CBC w Diff NO MAN DIFF REQ, RBC 5.15, MCV 86.0, MCH 27.0, MCHC 31.4 L, RDW 16.7 H, MPV 7.5, Gran % 84.3 H, Lymphocytes % 9.5 L, Monocytes % 5.7, Eosinophils % 0.2, Basophils % 0.3, Absolute Granulocytes 12.9 H, Absolute Lymphocytes 1.5, Absolute Monocytes 0.9 H, Absolute Eosinophils 0, Absolute Basophils 0, Phlebotomy Draw Site RIGHT RADIAL Microbiology 05/08 2300 BLOOD: Blood Culture - RECD 05/08 2245 BLOOD: Blood Culture - RECD (Patrick Banuelos DO) Departure Departure Disposition: STILL A PATIENT Condition: Stable Clinical Impression Primary Impression: Hypercapnic respiratory failure Secondary Impressions: CHF exacerbation, COPD exacerbation Referrals: Carlee Mooney APRN (PCP/Family) Departure Forms: Customer Survey General Discharge Information Observation Note Spoke With: Ankur Mosley MD Patient In: Non-ED OBS Care Area Rationale for Observation: My rational for observation is as follows [BiPAP, hemodynamic monitoring, telemetry monitoring, serial EKGs, serial troponins, IV antibiotics, IV steroids , nebulizer treatments, IV diuretics, serial CBCs, repeat chest x-ray, serial ABGs]. (Sabiha Barron) Admission Note Spoke With: Ankur Mosley MD Documentation of Exam: Documentation of any treatments & extenuating circumstances including Concerns Regarding Discharge (functional status, medication knowledge or non-compliance, living conditions, etc.) that warrant an admission rather than observation: [ Patient needs admission for BiPAP, pulmonary consultation, oxygen, nebulizer treatments, IV antibiotics] PA/RENDERER Co-Sign Statement Statement: ED Attending supervision documentation- [X] I saw and evaluated the patient. I have also reviewed all the pertinent lab results and diagnostic results. I agree with the findings and the plan of care as documented in the PA's/RENDERER's documentation. [] I have reviewed the ED Record and agree with the PA's/RENDERER's documentation. [] Additions or exceptions (if any) to the PAs/RENDERER's note and plan are summarized below: [ The patient is awake and alert, but acute respiratory distress, is currently on BiPAP.] (Patrick Banuelos DO)
--- NOTE | 2018-05-09 00:38 | RADIOLOGY REPORT ---
EXAMINATION: XR PORTABLE CHEST CLINICAL INFORMATION: Hypoxia COMPARISON: 04/27/2018 TECHNIQUE: Portable frontal view of the chest was obtained. FINDINGS: Left-sided pacemaker/AICD is present with lead tips overlying the regions of the right atrium and right ventricle. Lung volumes appear symmetric. Bibasilar airspace opacities are present. There is prominence of the central vasculature. No appreciable pneumothorax. No definite pleural effusion. The cardiac silhouette remains enlarged. No acute osseous findings are seen. IMPRESSION: Prominent central vasculature and bibasilar opacities which may reflect developing edema. Cardiac silhouette remains enlarged.
--- NOTE | 2018-05-09 00:51 | History & Physical ---
Rom HARPER,Maria Del Carmen 05/09/18 0045: General Information and HPI MD Statement: I have seen and personally examined SUZETTE GRIGSBY SR and documented this H&P. The patient is a 63 year old M who presented with a patient stated chief complaint of [shortness of breath]. Source of Information: patient, old records, EMS History of Present Illness: Patient is a 63YO morbidly obese male with a history of CHF, chronic venous insufficiency, COPD (on baseline 3-4 L O2), A. fib on eliquis, sleep apnea, cardiomyopathy (status post AICD placement), NIDDM on metformin, HLD, prior CA was BIBA after found to be tripoding at [facility] without any supplemental oxygen. Patient is oxygen dependent at baseline 3-4L. He was recently discharged after getting treated for acute hypoxic hyercarbic respiratory failure on a prednisone taper. He stays in a truck with his dog without any air conditioner. Today is very hot, his condensor associated with oxygen machine is generating lot of heat so he started using it intermitently. He started hallucinating and altered later and was sent to ER by one of the bystanders. Patient reports compliance with his medicaitons. During my interview he reports cough and phlegm at baseline, no new fever/increase in phlegm production. No recent increase in leg swelling. Allergies/Medications Allergies: Coded Allergies: No Known Allergies (01/08/18) Compliance With Home Meds: GOOD Past History Travel History Traveled to [place] past 21 day No Medical History Neurological: NONE EENT: NONE Cardiovascular: AFIB, CAD, cardiomyopathy, CHF, chronic venous insuff, hyperlipidemia, CARDIAC ARREST S/P [facility] PACER with DEFIB Respiratory: COPD, SLEEP APNEA O2 3.5L NC @ BASELINE Gastrointestinal: constipation, peptic ulcer disease, EGD 08/10 showed numerous gastric and duodenal ulcers Hepatic: NONE Renal: benign prost hyperplasia, TEMPORORY DIALYSIS Musculoskeletal: gout, rheumatoid arthritis Psychiatric: NONE Endocrine: diabetes Blood Disorders: anemia Cancer(s): NONE DIGITAL MARKETING CONSULTANT/Reproductive: NONE History of MRSA: Yes History of VRE: No History of CDIFF: No Surgical History Surgical History: Left orchiectomy 20+ yrs ago pacemaker August 2016 right knee cartilage removal Past Family/Social History Family History Relations & Conditions if any FATHER Alzheimer's disease FHx: heart disease MOTHER, ; Cause: Heart disease. Psychosocial History Where do you live? 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 self Services at Home: Oxygen Primary Language: Faroese Functional Ability ADLs Independent: dressing, eating, toileting, bathing. Ambulation: independent IADLs Independent: shopping, housework, finances, food prep, telephone, transportation , medication admin. Review of Systems Review of Systems Constitutional: Reports: see HPI. Exam & Diagnostic Data Last 24 Hrs of Vital Signs/I&O Vital Signs Date Time Temp Pulse Resp B/P B/P Pulse O2 O2 Flow FiO2 Mean Ox Delivery Rate 05/09 0036 98.9 88 22 113/78 96 BIPAP 05/08 224 94 BIPAP 40% 05/08 2241 76 94 05/08 2208 101.0 77 16 108/56 98 Non 10L ReBreather Intake & Output 05/09 0800 05/09 0000 05/08 1600 Intake Total 350 Output Total Balance 350 Intake, IV 350 Patient 174.633 kg Weight Weight Reported by Patient Measurement Method Physical Exam General Appearance Alert, Oriented X3, Mild Distress Skin No Rashes Skin Temp/Moisture Exam: Warm/Dry Sepsis Skin Exam (color): Normal for Ethnicity HEENT Atraumatic, PERRLA, EOMI Neck Supple Cardiovascular Normal S1, Normal S2 Lungs decreased air entry at the bases with wheezing Abdomen Normal Bowel Sounds, Soft, No Tenderness Neurological Normal Speech Extremities No Clubbing, No Cyanosis, kwasi bandages in place Last 24 Hrs of Labs/Joaquim: Laboratory Tests 05/09/18 0107: Lactic Acid Cancelled 05/08/18 2300: Lactic Acid 1.5 05/08/18 2300: Anion Gap 8, Estimated GFR > 60, BUN/Creatinine Ratio 19.2, Glucose 186 H, Calcium 8.9, Magnesium 1.9, Total Bilirubin 1.2, AST 12 L, ALT 28, Alkaline Phosphatase 72, Troponin I 0.07, [id number] Pept 3490 H, Total Protein 6.3, Albumin 3.2 L, Globulin 3.1, Albumin/Globulin Ratio 1.0 L 05/08/18 2230: pH 7.28 *L, pCO2 62 *H, pO2 99, HCO3 28, ABG O2 Sat (Measured) 95.0 L, P-50 ( Temp Corrected) Y, Carboxyhemoglobin 0.8 L, O2 Concentration % 100%, Temperature 101.0 H, O2 Delivery Method NRB, CBC w Diff NO MAN DIFF REQ, RBC 5.15, MCV 86.0, MCH 27.0, MCHC 31.4 L, RDW 16.7 H, MPV 7.5, Gran % 84.3 H, Lymphocytes % 9.5 L, Monocytes % 5.7, Eosinophils % 0.2, Basophils % 0.3, Absolute Granulocytes 12.9 H, Absolute Lymphocytes 1.5, Absolute Monocytes 0.9 H, Absolute Eosinophils 0, Absolute Basophils 0, Phlebotomy Draw Site RIGHT RADIAL Microbiology 05/08 2300 BLOOD: Blood Culture - RECD 05/08 2245 BLOOD: Blood Culture - RECD Diagnostic Data EKG Results NSR - unable to interpret completely CXR Results Prominent central vasculature and bibasilar opacities which may reflect developing edema. Cardiac silhouette remains enlarged. Assessment/Plan Assessment: Patient is a 63YO morbidly obese male with a history of CHF, chronic venous insufficiency, COPD (on baseline 3-4 L O2), A. fib on eliquis, sleep apnea, cardiomyopathy (status post AICD placement), NIDDM on metformin, HLD, prior CA was BIBA after found to be tripoding at [facility]. Patient was his oxygen intermittently today given very hot whether conditions and heat generation from his oxygen condensor. VS at admission did show Tmax of 101, HR 77, BP 108/56mmHg, saturating 70's intially. Physical exam is significant for wheezing and decreased air entry at lung bases. Labs whit count of 15.4 with left shift. Chem panel BUN/Cr 23/1.2. lactate1.5, BNP 3490. Imaging CXR did show central vascular prominence with bibasilar opacities. Problem list 1. Acute on chronic hypoxic hypercarbic respiratory failure 2. Chronic systolic heart failure 3. A.fib on eliquis 4. NIDDM 5. Lower extremity edema Plan Admit to telemetry Acute on chronic hypoxic hypercarbic respiratory failure H/O COPD on 3-4L oxygen. Patient is noncompliant with supplemental oxygen today and BiPAP in general. Tmax of 101 unclear if hyperthermia or infection or drug fever. ABG with pH 7.28, pCo2 62, pO2 99, HCo3 28. Placed on BIPAP, IV methylprednisone 125mg in ER. * Continue BIPAP and repeat ABG in 3hrs. * IV methylprednisone 40mg Q8 * TRC/Nebs * QTc prolonged and received Azithro in ER - so will hold off further * Start unasyn from tomorrow * Pulm consult Non ischemic cardiomyopathy with AICD in place Patient follows . Last ECHO EF 25-30%. He is on furosemide 40mg BID and follows up with heart failure clinic. Unsure if followed up after discharge so far. CXR consistent with increased pulmonary prominence. ProBNP 3490 (baseline). No overt signs of failure, no crackles on exam. A single dose of lasix given in ER. Lab suggestive of good diuresis even dehydration. * Continue oral lasix from tomorrow * A single dose of acetazolamide given bicarb of 40 * Continue atorvastatin 10mg dialy A.fib Continue eliquis Hold amio given QTc>500 Diabetes Accuchecks, ISS, hold oral hypoglycemics Continue other home medications Code status DNI As Ranked By This Provider Problem List: 1. CHF exacerbation 2. Afib 3. Weakness 4. Chronic venous stasis dermatitis 5. CHF (congestive heart failure) 6. Hypercapnic respiratory failure Core Measures/Misc (07/12) Acute Coronary Syndrome ACS Diagnosis: No Congestive Heart Failure Congestive Heart Failure Diagnosis No Cerebrovascular Accident CVA/TIA Diagnosis: No VTE (View Protocol) VTE Risk Factors Acute Medical Illness No Mechanical VTE Prophylaxis d/t N/A MechProphylax Ordered No VTE Pharm Prophylaxis d/t NA PharmProphylax ordered Sepsis (View protocol) Sepsis Present: No If YES complete Sepsis Event Note If YES complete Sepsis Event Note Resident Review Statement Resident Statement: examined this patient, discussed with actuarial internship, agreed with actuarial internship, discussed with family, reviewed EMR data (avail), discussed with nursing , discussed with case mgmt, reviewed images, amended to note Other Findings: as above Dimitri HARPERAnkur 05/09/18 0501: General Information and HPI Statement: I have seen and personally examined SUZETTE GRIGSBY SR and documented this H&P. The patient is a 63 year old M who presented with a patient stated chief complaint of [respiratory failure]. Source of Information: patient Allergies/Medications Home Med list Acetaminophen 500 MG TABLET 1 TAB PO DAILY PRN PAIN PLEASE ALTERNATE WITH NAPROXEN FOR PAIN Albuterol Sulfate (Proair Hfa) 90 MCG HFA.AER.AD 2 PUF INH Q4-6 PRN PRN COPD (Reported) Amiodarone (Cordarone) 200 MG TAB 1 TAB PO DAILY HEART RATE Ammonium Lactate 12 % CREAM..G. 12 % TP BID foot fissures . Apixaban (Eliquis) 5 MG TABLET 1 TAB PO BID AFIB Atorvastatin Calcium 10 MG TABLET 1 TAB PO DAILY CHOLESTEROL Carvedilol (Coreg) 25 MG TABLET 0.5 TAB PO BID HIGH BLOOD PRESSURE (Reported) Dicyclomine HCl 10 MG CAPSULE 1 CAP PO TID ABDOMINAL PAIN Febuxostat (Uloric) 40 MG TABLET 40 MG PO DAILY Gout Ferrous Sulfate 325 MG (65 MG IRON) TABLET 1 TAB PO DAILY anemia Fluticasone/Salmeterol (Advair 500-50 Diskus) 500 MCG-50 MCG/DOSE BLST.W.DEV 1 PUF INH BID COPD (Reported) Furosemide (Lasix) 40 MG TABLET 40 MG PO BID Fluid Overload Gabapentin 400 MG CAPSULE 1 CAP PO TID NEUROPATHY (Reported) Glimepiride 1 MG TABLET 1 TAB PO BID DM (Reported) Guaifenesin (Guaifenesin ER) 600 MG TAB.ER.12H 1 TAB PO BID CONGSETION Hydroxyzine Hydrochloride (Atarax) 50 MG TABLET 2 TAB PO BID MUCUS (Reported) Ipratropium/Albuterol Sulfate (Combivent Respimat Inhal Wanda) 20 MCG-100 MCG/ ACTUATION MIST.INHAL 2 PUFF INH BID copd (Reported) Losartan Potassium 25 MG TABLET 25 MG PO DAILY heart health . Metformin HCl (Glucophage) 1,000 MG TABLET 1 TAB PO BID DM (Reported) Montelukast Sodium (Singulair) 10 MG TABLET 1 TAB PO BID copd (Reported) Oxymetazoline HCl (Nasal Decongestant) 0.05 % SPRAY 2 SPRAY JOAQUIN BID PRN NASAL CONGESTION Prednisone 10 MG TABLET 1 TAB PO SI COPD TAKE 3 TABLETS FOR 3 DAYS TAKE 2 TABLETS FOR 3 DAYS TAKE 1 TABLET FOR 3 DAYS THEN STOP PREDNISONE. Umeclidinium Gilbert (Incruse Ellipta) 62.5 MCG/ACTUATION BLST.W.DEV 1 PUFF INH DAILY COPD (Reported) Past History Medical History Cardiovascular: AFIB, CAD, cardiomyopathy, CHF, chronic venous insuff, hyperlipidemia, CARDIAC ARREST S/P [facility] PACER with DEFIB Respiratory: COPD, SLEEP APNEA O2 3.5L NC @ [facility]EL[facility] Gastrointestinal: constipation, peptic ulcer disease, EGD 08/10 showed numerous gastric and duodenal ulcers Renal: benign prost hyperplasia Musculoskeletal: gout, rheumatoid arthritis Endocrine: diabetes Past Family/Social History Psychosocial History Smoking Status: Never Smoked ETOH Use: denies use Illicit Drug Use: denies illicit drug use Review of Systems Review of Systems Constitutional: Reports: see HPI. Exam & Diagnostic Data Last 24 Hrs of Vital Signs/I&O Vital Signs Date Time Temp Pulse Resp B/P B/P Pulse O2 O2 Flow FiO2 Mean Ox Delivery Rate 05/09 0349 91 Nasal 3.5L Cannula 05/09 0338 75 95 05/09 0304 98.4 92 20 120/82 91 Nasal Cannula 05/09 0215 98.3 74 22 121/65 92 Nasal 3.5L Cannula 05/09 0112 77 96 05/09 0036 98.9 88 22 113/78 96 BIPAP 05/08 2242 94 BIPAP 40% 05/08 2241 76 94 05/08 2208 101.0 77 16 108/56 98 Non 10L ReBreather Intake & Output 05/09 0800 05/09 0000 05/08 1600 Intake Total 350 Output Total Balance 350 Intake, IV 350 Patient 345 lb 385 lb Weight Weight Bed scale Reported by Patient Measurement Method Physical Exam General Appearance Alert, Oriented X3, Mild Distress Sepsis Skin Exam (color): Normal for Ethnicity HEENT Atraumatic, PERRLA, EOMI Neck Supple Cardiovascular Regular Rate, Normal S1, Normal S2 Lungs Clear to Auscultation, decreased air entry at the bases with wheezing Abdomen Normal Bowel Sounds, Soft, No Tenderness Neurological Normal Gait, Normal Speech Extremities No Clubbing, No Cyanosis Sepsis Peripheral Pulse Location: Radial Sepsis Peripheral Pulse Exam: Normal Sepsis Cap Refill Exam: <2 Sec Last 24 Hrs of Labs/Joaquim: Laboratory Tests 05/09/18 0305: pH 7.28 *L, pCO2 81 *H, pO2 73 L, HCO3 37 H, ABG O2 Sat (Measured) 93.0 L, P- 50 (Temp Corrected) N, Carboxyhemoglobin 1.4 L, O2 Concentration % 3.5L, O2 Delivery Method N/C, Phlebotomy Draw Site RIGHT RADIAL 05/09/18 0107: Lactic Acid Cancelled 05/08/18 2300: Lactic Acid 1.5 05/08/182299: Anion Gap 8, Estimated GFR > 60, BUN/Creatinine Ratio 19.2, Glucose 186 H, Calcium 8.9, Magnesium 1.9, Total Bilirubin 1.2, AST 12 L, ALT 28, Alkaline Phosphatase 72, Troponin I 0.07, [id number] Pept 3490 H, Total Protein 6.3, Albumin 3.2 L, Globulin 3.1, Albumin/Globulin Ratio 1.0 L 05/08/182229: pH 7.28 *L, pCO2 62 *H, pO2 99, HCO3 28, ABG O2 Sat (Measured) 95.0 L, P-50 ( Temp Corrected) Y, Carboxyhemoglobin 0.8 L, O2 Concentration % 100%, Temperature 101.0 H, O2 Delivery Method NRB, CBC w Diff NO MAN DIFF REQ, RBC 5.15, MCV 86.0, MCH 27.0, MCHC 31.4 L, RDW 16.7 H, MPV 7.5, Gran % 84.3 H, Lymphocytes % 9.5 L, Monocytes % 5.7, Eosinophils % 0.2, Basophils % 0.3, Absolute Granulocytes 12.9 H, Absolute Lymphocytes 1.5, Absolute Monocytes 0.9 H, Absolute Eosinophils 0, Absolute Basophils 0, Phlebotomy Draw Site RIGHT RADIAL Microbiology 05/08 2300 BLOOD: Blood Culture - RECD 05/08 2245 BLOOD: Blood Culture - RECD Core Measures/Misc (07/12) Sepsis (View protocol) If YES complete Sepsis Event Note If YES complete Sepsis Event Note Attending MD Review Statement Attending Statement Attending MD Statement: examined this patient, discuss w/resident/PA/AUTO TRANSMISSION MECHANIC, agreed w/resident/PA/AUTO TRANSMISSION MECHANIC, amended to note Attending Assessment/Plan: This patient is a 63 year old white male with morbidly obesity and a significant past medical history for recurrent admissions, CHF, chronic venous insufficiency , COPD (on baseline 3-4 L O2), A. fib on eliquis, sleep apnea, cardiomyopathy ( status post AICD placement), NIDDM on metformin, HLD, prior CA was BIBA after found to be tripoding at [facility]. Patient was his oxygen intermittently today given very hot weather conditions and heat generation from his oxygen condenser. Upon evaluation in the ED he was febrile to 101, and saturating in the 70s. He was found to have a white count of 15.4, lactate1.5 and BNP 3490. CXR did showed central vascular prominence with bibasilar opacities. He will be admitted or Acute on chronic hypoxic hypercarbic respiratory failure. Elevation in his WBC count may be related to the acute event and steroids for AECOPD tapering from the last visit. Will have to repeat in the AM but will switch to Unasyn for now (given Azithro in the ED).
[2018-05-09 03:04] VITALS: BP 120/82
[2018-05-09 07:35] VITALS: BP 118/76
[2018-05-09 08:08] LABS: ABSOLUTE BASOPHIL COUNT 0 /CUMM (0.0-0.2); ABSOLUTE EOSINOPHIL COUNT 0 /CUMM (0.0-0.7); ABSOLUTE GRANULOCYTE CT 13.3 /CUMM (1.4-6.5); ABSOLUTE LYMPH COUNT 0.8 /CUMM (1.2-3.4); ABSOLUTE MONOCYTE COUNT 0.2 /CUMM (0.10-0.60); BASOPHIL % 0 % (0.0-2.0); EOSINOPHIL % 0.1 % (0-5); GRANULOCYTE % 92.9 % (42.2-75.2); HEMATOCRIT 42.1 % (42-52); MEAN CORPUSCULAR HGB 27.4 PG (27.0-31.0); MEAN CORPUSCULAR HGB CONC 31.6 G/DL (33.0-37.0); MEAN CORPUSCULAR VOLUME 86.7 FL (80.0-94.0); MEAN PLATELET VOLUME 7.8 FL (7.4-10.4); PLATELET COUNT 176 /CUMM (130-400); RBC DISTRIBUTION WIDTH 16.6 % (11.5-14.5); RED BLOOD CELL CT 4.85 /CUMM (4.70-6.10); WHITE BLOOD CELL COUNT 14.3 /CUMM (4.8-10.8)
--- NOTE | 2018-05-09 08:26 | PN- Housestaff ---
TemiParthlisa 05/09/18 1637: Attending MD Review Statement Attending Statement Attending MD Statement: examined this patient, discuss w/resident/PA/SEAT JOINER, agreed w/resident/PA/SEAT JOINER, reviewed EMR data (avail), discussed with nursing, discussed with case mgmt Attending Assessment/Plan: ? MRSA Pneumonia- pts previous sputum cultures grew MRSA and Klebsiella from previous admission. pt was afebrile during that admission and had no leukocytosis. Pt was brought in for fever and hpoxia by EMS and found to have high wbc and fever. Will start pt on vanc and ceftriaxone. ID consult placed and case was d/w ID over the phone and they will see the pt tomorrow. Repeat sputum cultures. Acute copd exacerbation with hypoxic/hypercapneic resp failure- cont iv steroids. appreciated pulm consult and their recommendatins. d/w pt the care plan
--- NOTE | 2018-05-09 13:12 | Cons- Pulmonary ---
General Information and HPI Consulting Request Date of Consult: 05/09/18 Requested By: Dr. Membreno Reason for Consult: Pulmonary managment of COPD exacerbation. Source of Information: patient, old records Exam Limitations: no limitations History of Present Illness: Patient is a 63 year old morbidly obese male with a history of CHF, chronic venous insufficiency, COPD (on baseline 3-4 L O2), A. fib on eliquis, sleep apnea, cardiomyopathy (status post AICD placement), NIDDM on metformin, HLD, prior [place] was BIBA after found to be tripoding in a parking lot without any supplemental oxygen. The patient is oxygen dependent at baseline 3-4L. He was recently discharged after getting treated for acute hypoxic hyercarbic respiratory failure on a prednisone taper. He continues to live in a truck with his dog without any air conditioner. The patient was unable to tolerate the heat and humidity. He started hallucinating and altered later and was sent to ER by one of the bystanders. The patient was seen in the ED and found to have an AECOPD. He was febrile to a fever of 101. He was given Bipap, steroids, neb treatments, oxygen and empiric antibiotics. Allergies/Medications Allergies: Coded Allergies: No Known Allergies (01/08/18) Home Med List: Acetaminophen 500 MG TABLET 1 TAB PO DAILY PRN PAIN PLEASE ALTERNATE WITH NAPROXEN FOR PAIN Albuterol Sulfate (Proair Hfa) 90 MCG HFA.AER.AD 2 PUF INH Q4-6 PRN PRN COPD (Reported) Amiodarone (Cordarone) 200 MG TAB 1 TAB PO DAILY HEART RATE Ammonium Lactate 12 % CREAM..G. 12 % TP BID foot fissures . Apixaban (Eliquis) 5 MG TABLET 1 TAB PO BID AFIB Atorvastatin Calcium 10 MG TABLET 1 TAB PO DAILY CHOLESTEROL Carvedilol (Coreg) 25 MG TABLET 0.5 TAB PO BID HIGH BLOOD PRESSURE (Reported) Dicyclomine HCl 10 MG CAPSULE 1 CAP PO TID ABDOMINAL PAIN Febuxostat (Uloric) 40 MG TABLET 40 MG PO DAILY Gout Ferrous Sulfate 325 MG (65 MG IRON) TABLET 1 TAB PO DAILY anemia Fluticasone/Salmeterol (Advair 500-50 Diskus) 500 MCG-50 MCG/DOSE BLST.W.DEV 1 PUF INH BID COPD (Reported) Furosemide (Lasix) 40 MG TABLET 40 MG PO BID Fluid Overload Gabapentin 400 MG CAPSULE 1 CAP PO TID NEUROPATHY (Reported) Glimepiride 1 MG TABLET 1 TAB PO BID DM (Reported) Guaifenesin (Guaifenesin ER) 600 MG TAB.ER.12H 1 TAB PO BID CONGSETION Hydroxyzine Hydrochloride (Atarax) 50 MG TABLET 2 TAB PO BID MUCUS (Reported) Ipratropium/Albuterol Sulfate (Combivent Respimat Inhal [place]) 20 MCG-100 MCG/ ACTUATION MIST.INHAL 2 PUFF INH BID copd (Reported) Losartan Potassium 25 MG TABLET 25 MG PO DAILY joiz . Metformin HCl (Glucophage) 1,000 MG TABLET 1 TAB PO BID DM (Reported) Montelukast Sodium (Singulair) 10 MG TABLET 1 TAB PO BID copd (Reported) Oxymetazoline HCl (Nasal Decongestant) 0.05 % SPRAY 2 SPRAY JOAQUIN BID PRN NASAL CONGESTION Prednisone 10 MG TABLET 1 TAB PO SI COPD TAKE 3 TABLETS FOR 3 DAYS TAKE 2 TABLETS FOR 3 DAYS TAKE 1 TABLET FOR 3 DAYS THEN STOP PREDNISONE. Umeclidinium [place] (Incruse Ellipta) 62.5 MCG/ACTUATION BLST.W.DEV 1 PUFF INH DAILY COPD (Reported) Current Medications: Current Medications Sig/Keaton Start time Last Medication Dose Route Stop Time Status Admin Acetaminophen 650 MG Q6P PRN 05/09 130 AC PO Acetaminophen 1,000 MG Q6P PRN 05/09 0130 AC IV Acetaminophen 0 .STK-MED ONE 05/09 0003 DC IV Acetaminophen 1,000 MG ONCE ONE 05/08 2215 DC 05/09 N/A 1 UNIT IV 05/08 2229 0003 Acetazolamide 250 MG ONCE ONE 05/10 0900 AC PO 05/10 0901 Albuterol Sulfate 2 PUF BID 05/09 0900 CAN INH Albuterol Sulfate 2 PUF BID 05/09 0900 CAN INH Albuterol Sulfate 3 ML TID 05/09 0900 AC 05/09 INH 0837 Albuterol Sulfate 3 ML ONCE ONE 05/08 2215 DC 05/08 INH 05/08 221 2227 Ammonium Lactate 1 IDANIA BID 05/10 0900 AC TOP Ammonium Lactate 1 IDANIA BID 05/09 0132 DC TOP Ampicillin Sodium/ 3,000 MG Q6 05/09 0600 DC 05/09 Sulbactam Sodium IV 0645 Sodium Chloride 100 ML Apixaban 5 MG BID 05/09 0132 AC 05/09 PO 0913 Atorvastatin Calcium 10 MG DAILY 05/09 0900 AC 05/09 PO 0913 Azithromycin 500 MG ONCE ONE 05/085 DC 05/09 Sodium Chloride 250 ML IV 05/09 0014 0010 Carvedilol 12.5 MG BID 05/09 0900 AC 05/09 PO 0912 Ceftriaxone Sodium 1,000 MG DAILY@0000 05/10 0000 AC IV Ceftriaxone Sodium 0 .STK-MED ONE 05/08 2355 DC .ROUTE Ceftriaxone Sodium 1,000 MG ONCE ONE 05/08 2315 DC 05/09 IV 05/08 2316 0000 Dicyclomine HCl 10 MG TID 05/09 0900 AC 05/09 PO 0913 Furosemide 40 MG 7:30 AM, & 4:30 PM 05/09 0930 AC 05/09 PO 1239 Furosemide 0 .STK-MED ONE 05/09 0119 DC IV Furosemide 40 MG ONCE ONE 05/09 0100 DC 05/09 IV 05/09 0101 0120 Gabapentin 400 MG TID 05/09 0135 AC 05/09 PO 0913 Guaifenesin 600 MG BID 05/09 0900 AC 05/09 PO 0912 Hydroxyzine HCl 100 MG BID 05/09 0900 AC 05/09 PO 0913 Insulin Aspart 0 TIDAC 05/09 0800 AC 05/09 SC 1239 Insulin Detemir 4 UNITS BID 05/09 0900 AC 05/09 SC 0914 Ipratropium [place] 2 PUF BID 05/09 0900 DC INH Ipratropium [place] 2.5 ML TID 05/09 0900 AC 05/09 INH 0837 Ipratropium [place] 2.5 ML ONCE ONE 05/08 2215 DC 05/08 INH 05/08 2216 2227 Losartan Potassium 25 MG DAILY 05/09 0900 AC 05/09 PO 0912 Methylprednisolone 40 MG Q8 05/09 0600 AC 05/09 IV 0645 Methylprednisolone 0 .STK-MED ONE 05/08 2355 DC .ROUTE Methylprednisolone 125 MG ONCE ONE 05/085 DC 05/09 IV 05/08 2216 0000 Montelukast Sodium 10 MG 0900 05/09 0900 AC 05/09 PO 0913 Non-Formulary 0 SEE ADMIN CRITERIA 05/09 0145 DC Medication ANY Non-Formulary 0 SEE ADMIN CRITERIA 05/09 0145 DC Medication ANY Ondansetron HCl 4 MG ONCE ONE 05/09 0045 DC 05/09 IV 05/09 0046 0048 Ondansetron HCl 0 .STK-MED ONE 05/09 0031 DC .ROUTE Ondansetron HCl 0 .STK-MED ONE 05/09 0029 DC .ROUTE Oxymetazoline HCl 2 SPRAY BID PRN 05/09 0145 AC JOAQUIN 05/12 0144 Tiotropium [place] 1 PUF DAILY 05/09 0900 AC 05/09 INH 0915 Vancomycin HCl 2,000 MG Q12H 05/09 1400 AC Sodium Chloride 500 ML IV Review of Systems Review of Systems Cardiovascular: Reports: edema, orthopena. Skin: Reports: erythema. All Other Systems: Reviewed and Negative Past History Travel History Traveled to [place] past 21 day No Medical History Neurological: NONE EENT: NONE Cardiovascular: AFIB, CAD, cardiomyopathy, CHF, chronic venous insuff, hyperlipidemia, CARDIAC ARREST S/P [facility] PACER with DEFIB Respiratory: COPD, SLEEP APNEA O2 3.5L NC @ [facility]EL[facility] Gastrointestinal: constipation, peptic ulcer disease, EGD 08/10 showed numerous gastric and duodenal ulcers Hepatic: NONE Renal: benign prost hyperplasia Musculoskeletal: gout, rheumatoid arthritis Psychiatric: NONE Endocrine: diabetes Blood Disorders: anemia Cancer(s): NONE 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 self Services at Home: Oxygen Primary Language: Slovenian Smoking Status: Never Smoked ETOH Use: denies use Illicit Drug Use: denies illicit drug use Functional Ability ADLs Independent: dressing, eating, toileting, bathing. Ambulation: independent IADLs Independent: shopping, housework, finances, food prep, telephone, transportation , medication admin. Exam & Diagnostic Data Last 24 Hrs of Vital Signs/I&O Vital Signs Date Time Temp Pulse Resp B/P B/P Pulse O2 O2 Flow FiO2 Mean Ox Delivery Rate 05/09 1055 Nasal 3.5L Cannula 05/09 0800 Nasal 3.5L Cannula 05/09 0735 98.7 80 20 118/76 93 Nasal Cannula 05/09 0349 91 Nasal 3.5L Cannula 05/09 0338 75 95 05/09 0304 98.4 92 20 120/82 91 Nasal Cannula 05/09 0215 98.3 74 22 121/65 92 Nasal 3.5L Cannula 05/09 0112 77 96 05/09 0036 98.9 88 22 113/78 96 BIPAP 05/08 2242 94 BIPAP 40% 05/08 2241 76 94 05/08 2208 101.0 77 16 108/56 98 Non 10L ReBreather Intake & Output 05/09 1600 05/09 0800 05/09 0000 Intake Total 790 Output Total Balance 790 Intake, IV 350 Intake, Oral 440 Patient 345 lb 385 lb Weight Weight Bed scale Reported by Patient Measurement Method Physical Exam General Appearance: no apparent distress, alert, awake, comfortable Head: atraumatic Neck: supple Respiratory: decreased breath sounds, wheezing Cardiovascular: S1 and S2 heard Gastrointestinal: normal bowel sounds, soft, non-tender Extremities: edema and chronic venous stasis Skin: warm/dry Last 48 Hrs of Labs/Joaquim: Laboratory Tests 05/09/18 1300: Troponin I Pending 05/09/18 0710: Anion Gap 11, Estimated GFR 52 L, BUN/Creatinine Ratio 17.1, Troponin I 0.07, CBC w Diff MAN DIFF ORDERED, RBC 4.85, MCV 86.7, MCH 27.4, MCHC 31.6 L, RDW 16.6 H, MPV 7.8, Gran % 92.9 H, Lymphocytes % 5.7 L, Monocytes % 1.3 L, Eosinophils % 0.1, Basophils % 0, Absolute Granulocytes 13.3 H, Segmented Neutrophils 88 H, Band Neutrophils 5, Absolute Lymphocytes 0.8 L, Lymphocytes 6 L, Monocytes 1 L, Absolute Monocytes 0.2, Absolute Eosinophils 0, Absolute Basophils 0, Platelet Estimate VERIFIED BY SMEAR, Basophilic Stippling 1+, Anisocytosis 1+, Stomatocytes 1+ 05/09/18 0305: pH 7.28 *L, pCO2 81 *H, pO2 73 L, HCO3 37 H, ABG O2 Sat (Measured) 93.0 L, P- 50 (Temp Corrected) N, Carboxyhemoglobin 1.4 L, O2 Concentration % 3.5L, O2 Delivery Method N/C, Phlebotomy Draw Site RIGHT RADIAL 05/09/18 0107: Lactic Acid Cancelled 05/08/18 2300: Lactic Acid 1.5 05/08/182299: Anion Gap 8, Estimated GFR > 60, BUN/Creatinine Ratio 19.2, Glucose 186 H, Calcium 8.9, Magnesium 1.9, Total Bilirubin 1.2, AST 12 L, ALT 28, Alkaline Phosphatase 72, Troponin I 0.07, Oix-F-Aesjyagnkbg Pept 3490 H, Total Protein 6.3, Albumin 3.2 L, Globulin 3.1, Albumin/Globulin Ratio 1.0 L 05/08/180: pH 7.28 *L, pCO2 62 *H, pO2 99, HCO3 28, ABG O2 Sat (Measured) 95.0 L, P-50 ( Temp Corrected) Y, Carboxyhemoglobin 0.8 L, O2 Concentration % 100%, Temperature 101.0 H, O2 Delivery Method NRB, CBC w Diff NO MAN DIFF REQ, RBC 5.15, MCV 86.0, MCH 27.0, MCHC 31.4 L, RDW 16.7 H, MPV 7.5, Gran % 84.3 H, Lymphocytes % 9.5 L, Monocytes % 5.7, Eosinophils % 0.2, Basophils % 0.3, Absolute Granulocytes 12.9 H, Absolute Lymphocytes 1.5, Absolute Monocytes 0.9 H, Absolute Eosinophils 0, Absolute Basophils 0, Phlebotomy Draw Site RIGHT RADIAL Assessment/Plan Impression/Plan: 1. Acute hypercarbic resp failure with COPD and JORY with noncompliance of bipap. 2. COPDE now with sig sputum - colonization likely. 3. Low EF with fluid overload. 4. Atrial fibrillation. 5. JORY noncompliant with therapy. 5. History of gout. Recommendations: * Continue BIPAP qhs and PRN. * IV methylprednisone 40mg Q8 to continue. * TRC/Nebs to continue. * Follow-up cultures. * Continue empiric IV Unasyn. * Supplemental oxygen for saturations greater than 92%. * Incentive spirometry. * Management of medical comorbidities as per primary medical team. * Continue all supportive care. * Thank you for the consult. Will follow along with you provide further recommendations as necessary. Please call with any questions. Consult Acknowledgment - Thank you for your consult request.
--- NOTE | 2018-05-09 13:59 | PN-Observation ---
See Addendum Observation Note Observation Note _ I have personally examined SUZETTE GRIGSBY SR. him disposition is uncertain at this time. Before a determination can be made, he requires continued observation for the following reasons dyspnea. Assessment/Plan Medical Assessment: A/P: Patient is a 63 year old male with past medical history significant for CHF, chronicvenous insufficiency, COPD (on baseline 3-4L O2), Atrial fibrillation on eliquis, sleep apnea, cardiomyopathy (Status post AICD placement), NIDDM on metformin, HLD, prior [place] was brought to ER after found to be in tripod position at [facility] without any supplemental oxygen. Patient recently discharged for acute hypoxic hypercarbic respiratory failure on a prednisone taper. Patient had a temperature of 101 in the ED and saturating in the 70s. Found to have an elevated white count and lactate of 1.5. Bibasilar opacities on CXR. Given Azithromycin in the ED and switched to Unasyn today. Problem List: 1. Acute on Chronic Hypoxic Hypercarbic Respiratory Failure 2. Elevated white count 3. Low EF with fluid overload 4. Atrial Fibrillation 5. JORY noncompliant with therapy Plan: * Patient to be monitored on the telemetry given his cardiac history and recent admissions for CHF/COPD exacerbation * Previously grew MRSA, klebsiella oxytoca, yeast and pantoea agglomerans on sputum culture; will repeat sputum culture and follow with ID * Continue patient on IV Vancomycin starting today Day 1 (2000mg 500mL @ 250 q12 ) * continue Lasix 40mg PO; monitor I/O * Seen by Pulmonology Dr. Dewey; appreciate consultation; -Continue BIPAP if patient complies qhs -IV methylprednisone 40mg Q8 continue -TRC/Nebs -F/u cultures; continue empiric IV unasynn -supplement O2 for saturations greater than 92% -Incentive spirometry Code Status: DNI DVT PPx: Eliquis Diet: CHF Diet Problem List: 1. COPD (chronic obstructive pulmonary disease) 2. CHF exacerbation 3. Type 2 diabetes mellitus 4. DNI (do not intubate) Plan: Patient to be monitored on the telemetry given his cardiac history and recent admissions for CHF/COPD exacerbation * Previously grew MRSA, klebsiella oxytoca, yeast and pantoea agglomerans on sputum culture; will repeat sputum culture and follow with ID * Continue patient on IV Vancomycin starting today Day 1 (2000mg 500mL @ 250 q12 ) * continue Lasix 40mg PO; monitor I/O * Seen by Pulmonology Dr. Dewey; appreciate consultation; -Continue BIPAP if patient complies qhs -IV methylprednisone 40mg Q8 continue -TRC/Nebs -F/u cultures; continue empiric IV unasynn -supplement O2 for saturations greater than 92% -Incentive spirometry DVT/Prophylaxis: mechanical, pharmacological Subjective Follow-up For: COPD Exacerbation Chronic Low EF CHF Subjective: Patient seen and examined at bedside this morning. He is on 3.5 L NC saturating at 93%. Patient is sitting in chair and appearing tired. He claims he has no chest pain, tightness or palpiations today. Has taken off his wound dressings in the lower extremities as he wants to shower. Will continue to monitor on tele. Review of Systems Constitutional: Denies: see HPI. Objective Last 24 Hrs of Vital Signs/I&O Vital Signs Date Time Temp Pulse Resp B/P B/P Pulse O2 O2 Flow FiO2 Mean Ox Delivery Rate 05/09 1055 Nasal 3.5L Cannula 05/09 0800 Nasal 3.5L Cannula 05/09 0735 98.7 80 20 118/76 93 Nasal Cannula 05/09 0349 91 Nasal 3.5L Cannula 05/09 0338 75 95 05/09 0304 98.4 92 20 120/82 91 Nasal Cannula 05/09 0215 98.3 74 22 121/65 92 Nasal 3.5L Cannula 05/09 0112 77 96 05/09 0036 98.9 88 22 113/78 96 BIPAP 05/08 2242 94 BIPAP 40% 05/08 2241 76 94 05/08 2208 101.0 77 16 108/56 98 Non 10L ReBreather Intake & Output 05/09 1600 05/09 0800 05/09 0000 Intake Total 790 Output Total Balance 790 Intake, IV 350 Intake, Oral 440 Patient 345 lb 385 lb Weight Weight Bed scale Reported by Patient Measurement Method Physical Exam General Appearance: Alert, Oriented X3, Cooperative, Mild Distress HEENT: Atraumatic, PERRLA, Mucous Membr. moist/pink Cardiovascular: Normal S1, Normal S2, No Murmurs Lungs: wheezing present Abdomen: Normal Bowel Sounds, Soft, No Tenderness Neurological: Normal Gait, Normal Speech, Strength at 5/5 X4 Ext, Normal Tone, Sensation Intact Extremities: +3 pitting edema in bilateral lower extremities; wheeping; bruising ; Vascular: Normal Pulses Current Medications: Current Medications Sig/Keaton Start time Last Medication Dose Route Stop Time Status Admin Acetaminophen 650 MG Q6P PRN 05/09 0130 AC PO Acetaminophen 1,000 MG Q6P PRN 05/09 0130 AC IV Acetaminophen 0 .STK-MED ONE 05/09 0003 DC IV Acetaminophen 1,000 MG ONCE ONE 05/08 2215 DC 05/09 N/A 1 UNIT IV 05/08 2229 0003 Acetazolamide 250 MG ONCE ONE 05/10 0900 AC PO 05/10 0901 Albuterol Sulfate 2 PUF BID 05/09 09 CAN INH Albuterol Sulfate 2 PUF BID 05/09 09 CAN INH Albuterol Sulfate 3 ML TID 05/09 09 AC 05/09 INH 1409 Albuterol Sulfate 3 ML ONCE ONE 05/085 DC 05/08 INH 05/08 221 2227 Ammonium Lactate 1 IDANIA BID 05/10 0900 AC TOP Ammonium Lactate 1 IDANIA BID 05/09 013 DC TOP Ampicillin Sodium/ 3,000 MG Q6 05/09 0600 DC 05/09 Sulbactam Sodium IV 0645 Sodium Chloride 100 ML Apixaban 5 MG BID 05/09 0132 AC 05/09 PO 09 Atorvastatin Calcium 10 MG DAILY 05/09 0900 AC 05/09 PO 0913 Azithromycin 500 MG ONCE ONE 05/08 2315 DC 05/09 Sodium Chloride 250 ML IV 05/09 0014 0010 Carvedilol 12.5 MG BID 05/09 0900 AC 05/09 PO 0912 Ceftriaxone Sodium 1,000 MG DAILY@0000 05/10 0000 AC IV Ceftriaxone Sodium 0 .STK-MED ONE 05/08 2355 DC .ROUTE Ceftriaxone Sodium 1,000 MG ONCE ONE 05/08 2315 DC 05/09 IV 05/08 2316 0000 Dicyclomine HCl 10 MG TID 05/09 09 AC 05/09 PO 09 Furosemide 40 MG 7:30 AM, & 4:30 PM 05/09 0930 AC 05/09 PO 1239 Furosemide 0 .STK-MED ONE 05/09 0119 DC IV Furosemide 40 MG ONCE ONE 05/09 0100 DC 05/09 IV 05/09 0101 0120 Gabapentin 400 MG TID 05/09 0135 AC 05/09 PO 0913 Guaifenesin 600 MG BID 05/09 09 AC 05/09 PO 0912 Hydroxyzine HCl 100 MG BID 05/09 09 AC 05/09 PO 0913 Insulin Aspart 0 TIDAC 05/09 0800 AC 05/09 SC 1239 Insulin Detemir 4 UNITS BID 05/09 09 AC 05/09 SC 0914 Ipratropium [place] 2 PUF BID 05/09 09 DC INH Ipratropium [place] 2.5 ML TID 05/09 09 AC 05/09 INH 1409 Ipratropium [place] 2.5 ML ONCE ONE 05/08 2215 DC 05/08 INH 05/08 2216 2227 Losartan Potassium 25 MG DAILY 05/09 09 AC 05/09 PO 09 Methylprednisolone 40 MG Q8 05/09 0600 AC 05/09 IV 0645 Methylprednisolone 0 .STK-MED ONE 05/08 2355 DC .ROUTE Methylprednisolone 125 MG ONCE ONE 05/08 2215 DC 05/09 IV 05/08 2216 0000 Montelukast Sodium 10 MG 0900 05/09 0900 AC 05/09 PO 0913 Non-Formulary 0 SEE ADMIN CRITERIA 05/09 0145 DC Medication ANY Non-Formulary 0 SEE ADMIN CRITERIA 05/09 0145 DC Medication ANY Ondansetron HCl 4 MG ONCE ONE 05/09 0045 DC 05/09 IV 05/09 0046 0048 Ondansetron HCl 0 .STK-MED ONE 05/09 0031 DC .ROUTE Ondansetron HCl 0 .STK-MED ONE 05/09 0029 DC .ROUTE Oxymetazoline HCl 2 SPRAY BID PRN 05/09 0145 AC JOAQUIN 05/12 0144 Tiotropium [place] 1 PUF DAILY 05/09 09 AC 05/09 INH 0915 Vancomycin HCl 2,000 MG Q12H 05/09 1400 AC Sodium Chloride 500 ML IV Last 24 Hrs of Labs/Mics: Laboratory Tests 05/09/18 1300: Troponin I Pending 05/09/18 0710: Anion Gap 11, Estimated GFR 52 L, BUN/Creatinine Ratio 17.1, Troponin I 0.07, CBC w Diff MAN DIFF ORDERED, RBC 4.85, MCV 86.7, MCH 27.4, MCHC 31.6 L, RDW 16.6 H, MPV 7.8, Gran % 92.9 H, Lymphocytes % 5.7 L, Monocytes % 1.3 L, Eosinophils % 0.1, Basophils % 0, Absolute Granulocytes 13.3 H, Segmented Neutrophils 88 H, Band Neutrophils 5, Absolute Lymphocytes 0.8 L, Lymphocytes 6 L, Monocytes 1 L, Absolute Monocytes 0.2, Absolute Eosinophils 0, Absolute Basophils 0, Platelet Estimate VERIFIED BY SMEAR, Basophilic Stippling 1+, Anisocytosis 1+, Stomatocytes 1+ 05/09/18 0305: pH 7.28 *L, pCO2 81 *H, pO2 73 L, HCO3 37 H, ABG O2 Sat (Measured) 93.0 L, P- 50 (Temp Corrected) N, Carboxyhemoglobin 1.4 L, O2 Concentration % 3.5L, O2 Delivery Method N/C, Phlebotomy Draw Site RIGHT RADIAL 05/09/18 0107: Lactic Acid Cancelled 05/08/18 2300: Lactic Acid 1.5 05/08/18 2300: Anion Gap 8, Estimated GFR > 60, BUN/Creatinine Ratio 19.2, Glucose 186 H, Calcium 8.9, Magnesium 1.9, Total Bilirubin 1.2, AST 12 L, ALT 28, Alkaline Phosphatase 72, Troponin I 0.07, Mle-Q-Vvgnjcaxyqq Pept 3490 H, Total Protein 6.3, Albumin 3.2 L, Globulin 3.1, Albumin/Globulin Ratio 1.0 L 05/08/18 2230: pH 7.28 *L, pCO2 62 *H, pO2 99, HCO3 28, ABG O2 Sat (Measured) 95.0 L, P-50 ( Temp Corrected) Y, Carboxyhemoglobin 0.8 L, O2 Concentration % 100%, Temperature 101.0 H, O2 Delivery Method NRB, CBC w Diff NO MAN DIFF REQ, RBC 5.15, MCV 86.0, MCH 27.0, MCHC 31.4 L, RDW 16.7 H, MPV 7.5, Gran % 84.3 H, Lymphocytes % 9.5 L, Monocytes % 5.7, Eosinophils % 0.2, Basophils % 0.3, Absolute Granulocytes 12.9 H, Absolute Lymphocytes 1.5, Absolute Monocytes 0.9 H, Absolute Eosinophils 0, Absolute Basophils 0, Phlebotomy Draw Site RIGHT RADIAL Microbiology 05/09 1126 LOWER RESP: Respiratory Culture - ORD 05/09 1126 LOWER RESP: Gram Stain - ORD 05/08 2300 BLOOD: Blood Culture - RES 05/08 2245 BLOOD: Blood Culture - RES
[2018-05-09 15:05] VITALS: BP 114/64
--- NOTE | 2018-05-09 21:07 | CT SCAN REPORT ---
EXAMINATION: CT CHEST WITHOUT CONTRAST CLINICAL INFORMATION: Cough and sputum with fever COMPARISON: Chest x-ray 05/08/2018, CT chest 04/03/2018 TECHNIQUE: Multidetector volumetric CT imaging of the chest was done. Axial MIP volume rendering provided. Sagittal and coronal reformatted images were obtained. DLP: 1059 mGy-cm FINDINGS: LUNGS: There are numerous small peripheral patchy opacities present throughout the anterior right upper lobe, the right middle lobe, the right lower lobe, and the anterior left upper lobe. These are mostly distal in location and peribronchial vascular distribution. There is no large or dominant area of consolidation aside from the left lung base medially. The airways appear patent to the subsegmental level. No pulmonary edema. No pleural effusion. MEDIASTINUM: The heart size remains moderately enlarged. A trace pericardial effusion is within physiologic range. Mild coronary artery calcifications are demonstrated. Mitral valvular calcifications noted. No pathologically enlarged mediastinal or hilar lymph nodes. PLEURA: There is no pleural effusion. No pleural mass or thickening. AXILLA: No lymphadenopathy. UPPER ABDOMEN: The right kidney is atrophic in appearance. There is prominent calcification of the splenic artery. OSSEOUS STRUCTURES: Multilevel degenerative changes of the visualized portions of the thoracic spine. IMPRESSION: Findings consistent with multifocal pneumonia. The appearance is suggestive of an atypical infectious process. No effusion.
[2018-05-09 23:00] VITALS: BP 126/74
[2018-05-10 06:08] VITALS: BP 124/62
--- NOTE | 2018-05-10 07:01 | PN- Housestaff ---
Linda Watson 05/10/18 0701: Subjective Follow-up For: Acute on chronic hypoixic hypercarbic respiratory failure Pneumonia Tele-Events Since Last Visit: NSR, 79 HR, 0.14, 0.16, PVC, BBB Subjective: Patient seen and examined at bedside today. 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 Patient agrees to look at housing options with case management. Will consult psychiatry for further conservatorship. He has used BiPAP for 5 hours over night. Continues to use 3.5 L NC at baseline. Denies chest pain, palpitations. Has lower extremity pain at site of venous insufficiency/edema. Dressing applied. Review of Systems Constitutional: Denies: see HPI. Objective Last 24 Hrs of Vital Signs/I&O Vital Signs Date Time Temp Pulse Resp B/P B/P Pulse O2 O2 Flow FiO2 Mean Ox Delivery Rate 05/10 1209 96 Nasal 3.5L Cannula 05/10 0913 97.6 80 18 124/62 05/10 0912 97.6 80 18 124/62 05/10 0608 97.6 80 18 124/62 96 Nasal Cannula 05/10 0116 75 95 05/09 2300 98.3 78 18 126/74 93 Nasal 3.5L Cannula 05/09 2154 Nasal 3.5L Cannula 05/09 2123 93 Nasal 3.5L Cannula 05/09 2104 80 114/64 05/09 1600 91 Nasal 3.5L Cannula 05/09 1505 97.7 80 18 114/64 91 Nasal Cannula Intake & Output 05/10 1600 05/10 0800 05/10 0000 Intake Total 400 970 Output Total Balance 400 970 Intake, IV 250 Intake, Oral 400 720 Physical Exam General Appearance: Alert, Oriented X3, Cooperative, Mild Distress HEENT: PERRLA, EOMI, Mucous Membr. moist/pink Neck: Supple, No JVD Cardiovascular: Normal S1, Normal S2, Irregularly Irregular Lungs: wheezing/ronchi on auscultation Abdomen: Normal Bowel Sounds, Soft, No Tenderness Neurological: Normal Speech, Strength at 5/5 X4 Ext, Sensation Intact, Reflexes 2+ Extremities: +3 lower extremity edema bilaterally present; dressing applied; no wheeping or pus Vascular: Normal Pulses, Pulses Symmetrical Current Medications: Current Medications Sig/Keaton Start time Last Medication Dose Route Stop Time Status Admin Acetaminophen 650 MG Q6P PRN 05/09 0130 AC PO Acetaminophen 1,000 MG Q6P PRN 05/09 0130 AC 05/10 IV 0009 Acetazolamide 250 MG ONCE ONE 05/10 0900 DC 05/10 PO 05/10 0901 0914 Albuterol Sulfate 3 ML TID 05/09 0900 AC 05/10 INH 1209 Ammonium Lactate 1 IDANIA BID 05/10 0900 AC 05/10 TOP 1338 Apixaban 5 MG BID 05/09 0132 AC 05/10 PO 0912 Atorvastatin Calcium 10 MG DAILY 05/09 0900 AC 05/10 PO 0916 Budesonide/ 2 PUF BID 05/10 1125 AC 05/10 Formoterol Fumarate INH 1337 Carvedilol 12.5 MG BID 05/09 09 AC 05/10 PO 0913 Ceftriaxone Sodium 1,000 MG DAILY@0000 05/10 0000 AC 05/10 IV 0009 Dicyclomine HCl 10 MG TID 05/09 09 AC 05/10 PO 1337 Furosemide 40 MG 7:30 AM, & 4:30 PM 05/09 0930 AC 05/10 PO 0913 Gabapentin 400 MG TID 05/09 0135 AC 05/10 PO 1337 Guaifenesin 600 MG BID 05/09 09 AC 05/10 PO 0914 Hydroxyzine HCl 100 MG BID 05/09 09 AC 05/10 PO 0912 Insulin Aspart 0 TIDAC 05/09 0800 AC 05/10 SC 1336 Insulin Detemir 4 UNITS BID 05/09 0900 AC 05/10 SC 0911 Ipratropium [place] 2.5 ML TID 05/09 0900 DC 05/09 INH 1409 Losartan Potassium 25 MG DAILY 05/09 0900 AC 05/10 PO 0912 Methylprednisolone 40 MG Q12 05/10 2100 AC IV Methylprednisolone 40 MG Q8 05/09 06 DC 05/10 IV 0711 Montelukast Sodium 10 MG 0900 05/09 0900 AC 05/10 PO 0913 Oxymetazoline HCl 2 SPRAY BID PRN 05/09 0145 AC JOAQUIN 05/12 0144 Tiotropium [place] 1 PUF DAILY 05/09 0900 AC 05/10 INH 0915 Vancomycin HCl 2,000 MG Q12H 05/10 0600 AC 05/10 Sodium Chloride 500 ML IV 0908 Vancomycin HCl 2,000 MG Q12H 05/09 1400 DC 05/09 Sodium Chloride 500 ML IV 1819 Last 24 Hrs of Lab/Joaquim Results Last 24 Hrs of Labs/Mics: Laboratory Tests 05/10/18 0702: Anion Gap 11, Estimated GFR 56 L, BUN/Creatinine Ratio 29.2 H, CBC w Diff NO MAN DIFF REQ, RBC 4.85, MCV 86.2, MCH 27.0, MCHC 31.3 L, RDW 15.9 H, MPV 8.0, Gran % 90.6 H, Lymphocytes % 5.8 L, Monocytes % 3.6, Eosinophils % 0, Basophils % 0, Absolute Granulocytes 13.3 H, Absolute Lymphocytes 0.9 L, Absolute Monocytes 0.5, Absolute Eosinophils 0, Absolute Basophils 0 Microbiology 05/10 141 LOWER RESP: Respiratory Culture - ORD 05/10 1416 LOWER RESP: Gram Stain - ORD Assessment/Plan Assessment: Patient is a 63 year old male with past medical history significant for CHF, chronicvenous insufficiency, COPD (on baseline 3-4L O2), Atrial fibrillation on eliquis, sleep apnea, cardiomyopathy (Status post AICD placement), NIDDM on metformin, HLD, prior [place] was brought to ER after found to be in tripod position at [facility] without any supplemental oxygen. Patient recently discharged for acute hypoxic hypercarbic respiratory failure on a prednisone taper. Patient had a temperature of 101 in the ED and saturating in the 70s. Found to have an elevated white count and lactate of 1.5. Bibasilar opacities on CXR and diffuse patchy opacities on CT scan, Given Azithromycin in the ED. Patient now on IV Vancomycin and Ceftriaxone. Chest CT 05/09: Findings consistent with multifocal pneumonia. The appearance is suggestive of an atypical infectious process. No effusion. Chest X Ray 05/09: Prominent central vasculature and bibasilar opacities which may reflect developing edema. Cardiac silhouette remains enlarged. Problem List: 1. Pneumonia 2. Psychiatry for Conservatorship PLAN: * Patient seen by infectious disease today; continue IV vancomycin and Ceftriaxone regimen for pneumonia * follow up repeat sputum culture * Psychiatry for conservatorship * Patient seen by Dr. Dewey pulmonoology today -IV Solumedrol to q12 hours today -Continue same respiratory regimen * Continue IV diuresis and monitor on telemetry Code Status: DNI DVT PPx: Eliquis Diet: CHF Diet Problem List: 1. CHF exacerbation 2. COPD (chronic obstructive pulmonary disease) Pain Ratin Pain Location: Lower extremities Pain Goal: Pain 4 or less Pain Plan: per pain pathway Tomorrow's Labs & Rationales: CBC BEP Ingris Membreno 05/10/18 1353: Attending MD Review Statement Attending Statement Attending MD Statement: examined this patient, discuss w/resident/PA/CAP COVERER, agreed w/resident/PA/CAP COVERER, reviewed EMR data (avail), discussed with nursing, discussed with case mgmt Attending Assessment/Plan: Pneumonia- with sputum cultures growing MRSA and Kelbsiella from previous admission. cont on vanc and ceftriaxone for now. ID consult appreicated. F/u repeat sputum cultures. Will get psych consult for assessing for conservatorship.
[2018-05-10 08:27] LABS: ABSOLUTE BASOPHIL COUNT 0 /CUMM (0.0-0.2); ABSOLUTE EOSINOPHIL COUNT 0 /CUMM (0.0-0.7); ABSOLUTE GRANULOCYTE CT 13.3 /CUMM (1.4-6.5); ABSOLUTE LYMPH COUNT 0.9 /CUMM (1.2-3.4); ABSOLUTE MONOCYTE COUNT 0.5 /CUMM (0.10-0.60); BASOPHIL % 0 % (0.0-2.0); EOSINOPHIL % 0 % (0-5); HEMATOCRIT 41.8 % (42-52); MEAN CORPUSCULAR HGB CONC 31.3 G/DL (33.0-37.0); MEAN CORPUSCULAR VOLUME 86.2 FL (80.0-94.0); PLATELET COUNT 194 /CUMM (130-400); RBC DISTRIBUTION WIDTH 15.9 % (11.5-14.5); RED BLOOD CELL CT 4.85 /CUMM (4.70-6.10); WHITE BLOOD CELL COUNT 14.7 /CUMM (4.8-10.8)
[2018-05-10 09:47] LABS: GRANULOCYTE % 90.6 % (42.2-75.2)
--- NOTE | 2018-05-10 10:07 | PN- Pulmonary ---
Subjective HPI/Critical Care Issues: The patient is awake and alert. He is sitting out of bed in a chair. He has no respiratory distress. There were no overnight events reported. Objective Current Medications: Current Medications Sig/Keaton Start time Last Medication Dose Route Stop Time Status Admin Acetaminophen 650 MG Q6P PRN 05/09 0130 AC PO Acetaminophen 1,000 MG Q6P PRN 05/09 0130 AC 05/10 IV 0009 Acetazolamide 250 MG ONCE ONE 05/10 900 DC 05/10 PO 05/10 0901 0914 Albuterol Sulfate 3 ML TID 05/09 09 AC 05/09 INH 2122 Ammonium Lactate 1 IDANIA BID 05/10 09 AC TOP Ammonium Lactate 1 IDANIA BID 05/09 013 DC TOP Ampicillin Sodium/ 3,000 MG Q6 05/09 600 DC 05/09 Sulbactam Sodium IV 0645 Sodium Chloride 100 ML Apixaban 5 MG BID 05/09 013 AC 05/10 PO 0912 Atorvastatin Calcium 10 MG DAILY 05/09 900 AC 05/10 PO 0916 Carvedilol 12.5 MG BID 05/09 09 AC 05/10 PO 0913 Ceftriaxone Sodium 1,000 MG DAILY@0000 05/10 0000 AC 05/10 IV 0009 Dicyclomine HCl 10 MG TID 05/09 900 AC 05/10 PO 0913 Furosemide 40 MG 7:30 AM, & 4:30 PM 05/09 0930 AC 05/10 PO 0913 Gabapentin 400 MG TID 05/09 0135 AC 05/10 PO 0913 Guaifenesin 600 MG BID 05/09 09 AC 05/10 PO 0914 Hydroxyzine HCl 100 MG BID 05/09 09 AC 05/10 PO 0912 Insulin Aspart 0 TIDAC 05/09 08 AC 05/10 SC 0910 Insulin Detemir 4 UNITS BID 05/09 09 AC 05/10 SC 0911 Ipratropium [place] 2.5 ML TID 05/09 09 DC 05/09 INH 1409 Losartan Potassium 25 MG DAILY 05/09 900 AC 05/10 PO 0912 Methylprednisolone 40 MG Q8 05/09 06 AC 05/10 IV 0711 Montelukast Sodium 10 MG 0900 05/09 0900 AC 05/10 PO 0913 Oxymetazoline HCl 2 SPRAY BID PRN 05/09 0145 AC JOAQUIN 05/12 0144 Tiotropium [place] 1 PUF DAILY 05/09 0900 AC 05/10 INH 0915 Vancomycin HCl 2,000 MG Q12H 05/10 0600 AC 05/10 Sodium Chloride 500 ML IV 0908 Vancomycin HCl 2,000 MG Q12H 05/09 1400 DC 05/09 Sodium Chloride 500 ML IV 1819 Vital Signs & I&O Last 24 Hrs of Vitals and I&O: Vital Signs Date Time Temp Pulse Resp B/P B/P Pulse O2 O2 Flow FiO2 Mean Ox Delivery Rate 05/10 0913 97.6 80 18 124/62 05/10 0912 97.6 80 18 124/62 05/10 0608 97.6 80 18 124/62 96 Nasal Cannula 05/10 0116 75 95 05/09 2300 98.3 78 18 126/74 93 Nasal 3.5L Cannula 05/09 2154 Nasal 3.5L Cannula 05/09 2123 93 Nasal 3.5L Cannula 05/09 2104 80 114/64 05/09 1600 91 Nasal 3.5L Cannula 05/09 1505 97.7 80 18 114/64 91 Nasal Cannula 05/09 1055 Nasal 3.5L Cannula Intake & Output 05/10 1600 05/10 0800 05/10 0000 Intake Total 400 970 Output Total Balance 400 970 Intake, IV 250 Intake, Oral 400 720 Physical Exam General Appearance: no apparent distress, alert, awake, comfortable Head: atraumatic Neck: supple Respiratory: decreased breath sounds, wheezing Cardiovascular: S1 and S2 heard Gastrointestinal: normal bowel sounds, soft, non-tender Extremities: edema and chronic venous stasis Skin: warm/dry Results Last 24 Hrs of Lab Results: Laboratory Tests 05/10/18 0702: Anion Gap 11, Estimated GFR 56 L, BUN/Creatinine Ratio 29.2 H, CBC w Diff NO MAN DIFF REQ, RBC 4.85, MCV 86.2, MCH 27.0, MCHC 31.3 L, RDW 15.9 H, MPV 8.0, Gran % 90.6 H, Lymphocytes % 5.8 L, Monocytes % 3.6, Eosinophils % 0, Basophils % 0, Absolute Granulocytes 13.3 H, Absolute Lymphocytes 0.9 L, Absolute Monocytes 0.5, Absolute Eosinophils 0, Absolute Basophils 0 05/09/18 1300: Troponin I 0.04 Impression/Plan Impression/Plan Impression/Plan: Impression/Plan: 1. Acute hypercarbic resp failure with COPD and JORY with noncompliance of bipap. 2. COPDE now with sig sputum - colonization likely. 3. Low EF with fluid overload. 4. Atrial fibrillation. 5. JORY noncompliant with therapy. 5. History of gout. Recommendations: * Continue BIPAP qhs and PRN. * IV methylprednisone 40mg - decrease to q 12 hours. * TRC/Nebs to continue. * Continue Symbicort and Singulair. * ID input pending. * Supplemental oxygen for saturations greater than 92%. * Incentive spirometry. * Management of medical comorbidities as per primary medical team.
--- NOTE | 2018-05-10 12:58 | Cons- Infect Disease ---
General Information and HPI Consulting Request Date of Consult: 05/10/18 Requested By: Temi HARPER,Ingris Stahl Reason for Consult: Rule out pneumonia Source of Information: patient, old records History of Present Illness: This is a 63-year-old man with a history of coronary artery disease, status post OH, CHF, cardiomyopathy, status post AICD placement, atrial fibrillation, maintained on Eliquis, status post cardioversion on a hospitalization 3 months prior to admission, COPD, maintained on 3-1/2 L of oxygen, obstructive sleep apnea, noncompliant with CPAP, diabetes, chronic renal insufficiency, chronic venous insufficiency and gout, status post multiple hospitalizations over the past year, mostly for exacerbations of COPD and/or CHF, most recently 12 days prior to admission, found at that time to be afebrile with a normal white blood cell count, a sputum positive for MRSA, Klebsiella and Pantoea, felt to represent colonization and not treated, and a chest x-ray negative for any focal consolidation, discharged on tapering steroids, admitted May 08, just 4 days after discharge, after he was found in a parking lot confused and ill-appearing. On admission he was febrile to 101, with an O2 sat in the 70s. Laboratory data revealed a white blood cell count of 15,000, BUN/creatinine 23 and 1.2, with normal liver enzymes, proBNP 3490, ABG 7.28/62/99 on 100% nonrebreather. Chest x-ray revealed prominent central vasculature and bibasilar opacities. He was given Ceftriaxone and Azithromycin in the emergency room and was then changed to Unasyn. He was also begun on Solumedrol. On May 09, after discussion with me, a CT of the chest was done, revealing numerous small peripheral patchy opacities , and he was changed to Vancomycin and Ceftriaxone. He has been remained afebrile (on steroids) since admission. He does feel improved today with a decrease in his cough and shortness of breath. Allergies/Medications Allergies: Coded Allergies: No Known Allergies (01/08/18) Home Med List: Acetaminophen 500 MG TABLET 1 TAB PO DAILY PRN PAIN PLEASE ALTERNATE WITH NAPROXEN FOR PAIN Albuterol Sulfate (Proair Hfa) 90 MCG HFA.AER.AD 2 PUF INH Q4-6 PRN PRN COPD (Reported) Amiodarone (Cordarone) 200 MG TAB 1 TAB PO DAILY HEART RATE Ammonium Lactate 12 % CREAM..G. 12 % TP BID foot fissures . Apixaban (Eliquis) 5 MG TABLET 1 TAB PO BID AFIB Atorvastatin Calcium 10 MG TABLET 1 TAB PO DAILY CHOLESTEROL Carvedilol (Coreg) 25 MG TABLET 0.5 TAB PO BID HIGH BLOOD PRESSURE (Reported) Dicyclomine HCl 10 MG CAPSULE 1 CAP PO TID ABDOMINAL PAIN Febuxostat (Uloric) 40 MG TABLET 40 MG PO DAILY Gout Ferrous Sulfate 325 MG (65 MG IRON) TABLET 1 TAB PO DAILY anemia Fluticasone/Salmeterol (Advair 500-50 Diskus) 500 MCG-50 MCG/DOSE BLST.W.DEV 1 PUF INH BID COPD (Reported) Furosemide (Lasix) 40 MG TABLET 40 MG PO BID Fluid Overload Gabapentin 400 MG CAPSULE 1 CAP PO TID NEUROPATHY (Reported) Glimepiride 1 MG TABLET 1 TAB PO BID DM (Reported) Guaifenesin (Guaifenesin ER) 600 MG TAB.ER.12H 1 TAB PO BID CONGSETION Hydroxyzine Hydrochloride (Atarax) 50 MG TABLET 2 TAB PO BID MUCUS (Reported) Ipratropium/Albuterol Sulfate (Combivent Respimat Inhal [place]) 20 MCG-100 MCG/ ACTUATION MIST.INHAL 2 PUFF INH BID copd (Reported) Losartan Potassium 25 MG TABLET 25 MG PO DAILY heart health . Metformin HCl (Glucophage) 1,000 MG TABLET 1 TAB PO BID DM (Reported) Montelukast Sodium (Singulair) 10 MG TABLET 1 TAB PO BID copd (Reported) Oxymetazoline HCl (Nasal Decongestant) 0.05 % SPRAY 2 SPRAY JOAQUIN BID PRN NASAL CONGESTION Prednisone 10 MG TABLET 1 TAB PO SI COPD TAKE 3 TABLETS FOR 3 DAYS TAKE 2 TABLETS FOR 3 DAYS TAKE 1 TABLET FOR 3 DAYS THEN STOP PREDNISONE. Umeclidinium [place] (Incruse Ellipta) 62.5 MCG/ACTUATION BLST.W.DEV 1 PUFF INH DAILY COPD (Reported) Past History Travel History Traveled to [place] past 21 day No Medical History Neurological: NONE EENT: NONE Cardiovascular: AFIB (s/p cardioversion), CAD, cardiomyopathy, CHF, chronic venous insuff, hyperlipidemia, CARDIAC ARREST S/P [facility] PACER with DEFIB Respiratory: COPD, SLEEP APNEA O2 3.5L NC @ [facility] Gastrointestinal: constipation, peptic ulcer disease, EGD 08/10 showed numerous gastric and duodenal ulcers Hepatic: NONE Renal: benign prost hyperplasia Musculoskeletal: gout, rheumatoid arthritis Psychiatric: NONE Endocrine: diabetes Blood Disorders: anemia Cancer(s): 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 self Services at Home: Oxygen Primary Language: Yakut Smoking Status: Never Smoked ETOH Use: denies use Illicit Drug Use: denies illicit drug use Functional Ability ADLs Independent: dressing, eating, toileting, bathing. Ambulation: independent IADLs Independent: shopping, housework, finances, food prep, telephone, transportation , medication admin. Review of Systems Review of Systems All Other Systems: Reviewed and Negative Exam & Diagnostic Data Last 24 Hrs of Vital Signs/I&O Vital Signs Date Time Temp Pulse Resp B/P B/P Pulse O2 O2 Flow FiO2 Mean Ox Delivery Rate 05/10 1209 96 Nasal 3.5L Cannula 05/10 0913 97.6 80 18 124/62 05/10 0912 97.6 80 18 124/62 05/10 0608 97.6 80 18 124/62 96 Nasal Cannula 05/10 0116 75 95 05/09 2300 98.3 78 18 126/74 93 Nasal 3.5L Cannula 05/09 2154 Nasal 3.5L Cannula 05/09 2123 93 Nasal 3.5L Cannula 05/09 2104 80 114/64 05/09 1600 91 Nasal 3.5L Cannula 05/09 1505 97.7 80 18 114/64 91 Nasal Cannula Intake & Output 05/10 1600 05/10 0800 05/10 0000 Intake Total 400 970 Output Total Balance 400 970 Intake, IV 250 Intake, Oral 400 720 Physical Exam Other Physical Findings: He is awake and alert in no acute distress. He is afebrile on steroids. Skin reveals no rash. HEENT exam is negative. Neck is supple with no adenopathy. Lungs scattered rhonchi. Heart regular rhythm with no murmur. Abdomen is obese , soft, nontender with positive bowel sounds. Back no CVA tenderness. Extremities chronic venous stasis changes both lower extremities, with 1+ edema, nontender to palpation; pulses 1+. Neuro is without focality. Last 24 Hours of Lab Results: Laboratory Tests 05/10 05/09 0702 1300 Chemistry Sodium (137 - 145 mmol/L) 137 Potassium (3.5 - 5.1 mmol/L) 4.8 Chloride (98 - 107 mmol/L) 92 L Carbon Dioxide (22 - 30 mmol/L) 35 H Anion Gap (5 - 16) 11 BUN (9 - 20 mg/dL) 38 H Creatinine (0.7 - 1.2 mg/dL) 1.3 H Estimated GFR (>60 ml/min) 56 L BUN/Creatinine Ratio (7 - 25 %) 29.2 H Troponin I (<0.11 ng/ml) 0.04 Hematology CBC w Diff NO MAN DIFF REQ WBC (4.8 - 10.8 /CUMM) 14.7 H RBC (4.70 - 6.10 /CUMM) 4.85 Hgb (14.0 - 18.0 G/DL) 13.1 L Hct (42 - 52 %) 41.8 L MCV (80.0 - 94.0 FL) 86.2 MCH (27.0 - 31.0 PG) 27.0 MCHC (33.0 - 37.0 G/DL) 31.3 L RDW (11.5 - 14.5 %) 15.9 H Plt Count (130 - 400 /CUMM) 194 MPV (7.4 - 10.4 FL) 8.0 Gran % (42.2 - 75.2 %) 90.6 H Lymphocytes % (20.5 - 51.1 %) 5.8 L Monocytes % (1.7 - 9.3 %) 3.6 Eosinophils % (0 - 5 %) 0 Basophils % (0.0 - 2.0 %) 0 Absolute Granulocytes (1.4 - 6.5 /CUMM) 13.3 H Absolute Lymphocytes (1.2 - 3.4 /CUMM) 0.9 L Absolute Monocytes (0.10 - 0.60 /CUMM) 0.5 Absolute Eosinophils (0.0 - 0.7 /CUMM) 0 Absolute Basophils (0.0 - 0.2 /CUMM) 0 Last 24 Hours of Joaquim Results: Blood cultures x 2 May 08 negative Diagnostic Data Recent Imaging Findings: Chest x-ray May 09 reveals prominent central vasculature and bibasilar opacities CT of the chest May 09 reveals numerous small peripheral patchy opacities throughout the anterior right upper lobe, right middle lobe, right lower lobe and anterior left upper lobe, with no pleural effusions Assessment/Plan Assessment/Plan Impression: This is a 63-year-old man with a history of CHF, COPD, maintained on 3-1/2 L of oxygen, and obstructive sleep apnea, noncompliant with CPAP, with multiple hospitalizations over the past year, most recently 12 days prior to admission, at which time he was found to have a sputum culture positive for MRSA, Klebsiella and Pantoea, felt to represent colonization and not treated, discharged on tapering steroids, admitted May 08, just 4 days after discharge, after he was found in a parking lot confused and ill-appearing, found to be febrile with a leukocytosis and diffuse patchy peripheral opacities throughout both lungs on CT of the chest. His clinical presentation is suggestive of possible multifocal pneumonia, given the fever on admission, leukocytosis (though he was on steroids since his recent discharge) and diffuse patchy opacities on CT scan, though these could represent CHF, given his cardiomyopathy/ejection fraction of 25-30% on his last echocardiogram. The recent sputum culture for MRSA, Klebsiella and Pantoea may represent colonization but, if he does have pneumonia, it seems prudent to treat these organisms. He does note improvement from yesterday and, therefore, it seems reasonable to commit him to a "course" of antibiotics for presumed pneumonia. Suggestion: 1. Attempt to obtain a repeat sputum for culture 2. Further management with regard to steroids per Pulmonary 3. Consider Cardiology evaluation for management of his CHF 4. Continue Vancomycin and Ceftriaxone Consult Acknowledgment - Thank you for your consult request.
[2018-05-10 15:18] VITALS: BP 120/68
--- NOTE | 2018-05-10 15:27 | Cons- Psychiatry ---
Psychiatric Consult Date of Consult: 05/10/18 Reason for Consult: Asked to evaluate this 63-year-old male for impairment of judgment. History of Present Illness: The patient is a 63-year-old male who carries diagnoses of COPD with multiple exacerbations, CHF, chronic venous insufficiency, A. fib on Eliquis, sleep apnea , cardiomyopathy, mws-plxsnoy-hqzueozvr diabetes, HLD, and has a history of an UT. He is maintained on 3 L of oxygen at baseline. The patient was last discharged from this facility on May 04 following a five- day admission with acute hypoxic hypercarbic respiratory failure secondary to COPD exacerbation. This is the patient's seventh admission this year. He had 9 admissions in 2017. Most of his admissions are for COPD exacerbation. The patient was brought to the emergency room on this occasion when passersby called EMS believing him to be ill as reportedly he was confused and hallucinating. The patient was hypoxic on arrival to the ED. Patient says he has been homeless for about 18 months to 2 years. He lost his housing when he was hospitalized for 4 months. He currently lives in his truck with his dog. He says that he has air conditioning in the truck which he keeps running in hot weather. The patient reports that he receives $1600 a month from Social Security disability. The patient would like fixed housing but states he is financially unable to get first month's rent and security deposit. He says he has financial outgoings that exceed his income. Part of his salary goes to pay for a storage facility. In the storage facility he keeps all his belongings from his old home [bed, refrigerators and so on] as well as mementos from his parents and his motorbike. He states that he does not own the title to the motorbike but that it belongs to the bank. Suggested as many staff have done previously, that the patient considers getting rid of some of his possessions. He reports that he will do this when he has been able to go through them and points out that he has given away a significant amount of his possessions and has more than helped his storage bill. The patient reports that he has had multiple losses. His in 2011, and his son from a drug overdose in 2016. expenses for the 2 as well as financial outgoing's to help with his surviving for children he says because of cost him over $30-$35,000 rendering him completely dependent on his Social Security disability. The patient states that his son, Amadou Way, who lives in [place] will be leaving his housing at the end of this month. According to the patient his son will move his belongings into storage facility and they will share expenses hopefully enabling them to find a place together. The patient has 4 adult children who are supportive but states he does not want to be a burden on them. His sisters who live in [place] are encouraging him to allow them manage his finances. The patient adamantly refuses this "I do not want to be controlled". He admits that this is a source of discord with his sister at the moment. The patient denies any abnormalities of mood. He is aware this is health is suffering and is not improving as it used to. He finds this frustrating. He is not suicidal or homicidal. He keeps his medical appointments and says he takes his medications as prescribed. He says he is careful about what he eats as he is diabetic. He is future oriented. He enjoys his relationships with his children and with his 4-year-old granddaughter. Past psychiatric history: The patient has no formal psychiatric history. He reports that he was seen by a psychiatrist on several occasions whilst at [facility] "and they could not find anything wrong with me". He was also seen on consult in similar circumstances to this in July 2017. He has no history of deliberate self-harm or suicide attempts. Family psychiatric history: Positive for Alzheimer's disease in his father Substance abuse history: Remote history of alcohol abuse versus dependence. No alcohol for many years. No other substance abuse. Social/personal history: The patient has 2 sisters who live in [place]. As mentioned the relationship is strained as they disapprove of his lifestyle choices. The patient was for many years and his in 2011. He had 5 children. 1 of his sons in 2016 at the age of 28 of a drug overdose. He has 4 remaining children with whom he has a good relationship. He has 1 son who was on dialysis, 1 son who lives in [place] that is supportive and 2 adult daughters who live in [place]. 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 He reports that financial out anel to pay for the funerals of his and son as well as to help his children have emptied his bank accounts. He lives in his car with his dog who is a female pitbull. Allergies: Coded Allergies: No Known Allergies (01/08/18) Current Medications: Med Acetaminophen 1,000 MG IV Q6P PRN 05/09/18 0130 Albuterol Sulfate 3 ML INH TID 05/09/18 0900 Ammonium Lactate 1 IDANIA TOP BID 05/10/18 0900 Apixaban 5 MG PO BID 05/09/18 0132 Atorvastatin Calcium 10 MG PO DAILY 05/09/18 0900 Budesonide/Formoterol Fumarate 2 PUF INH BID 05/10/18 1125 Carvedilol 12.5 MG PO BID 05/09/18 0900 Ceftriaxone Sodium 1,000 MG IV DAILY@0000 05/10/18 0000 Dicyclomine HCl 10 MG PO TID 05/09/18 0900 Furosemide 40 MG PO 7:30 AM, & 4:30 PM 05/09/18 0930 Gabapentin 400 MG PO TID 05/09/18 0135 Guaifenesin 600 MG PO BID 05/09/18 0900 Hydroxyzine HCl 100 MG PO BID 05/09/18 0900 Insulin Aspart SC TIDAC 05/09/18 0800 Insulin Detemir 4 UNITS SC BID 05/09/18 0900 Losartan Potassium 25 MG PO DAILY 05/09/18 0900 Methylprednisolone 40 MG IV Q12 05/10/18 2100 Montelukast Sodium 10 MG PO 0900 05/09/18 0900 Oxymetazoline HCl 2 SPRAY JOAQUIN BID PRN 05/09/18 0145 Tiotropium [place] 1 PUF INH DAILY 05/09/18 0900 Vancomycin HCl 2,000 MG IV Q12H 05/10/18 0600 Sodium Chloride 500 ML Past History Past Medical History Neurological: NONE EENT: NONE Cardiovascular: AFIB (s/p cardioversion), CAD, cardiomyopathy, CHF, chronic venous insuff, hyperlipidemia, CARDIAC ARREST S/P [facility] PACER with DEFIB Respiratory: COPD, SLEEP APNEA O2 3.5L NC @ BASELINE Gastrointestinal: constipation, peptic ulcer disease, EGD 08/10 showed numerous gastric and duodenal ulcers Hepatic: NONE Renal: benign prost hyperplasia Musculoskeletal: gout, rheumatoid arthritis Psychiatric: NONE Endocrine: diabetes Blood Disorders: anemia Cancer(s): NONE 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 Past Surgical History Surgical History: Left orchiectomy 20+ yrs ago pacemaker August 2016 right knee cartilage removal Psychosocial History Strengths/Capabilities: Hopeful, resilient Physical Limitations (Interventions): Chronic medical conditions, homelessness Psychiatric Treatment History Psych Treatment Psychiatric Treatment No Diagnosis: No psychiatric diagnosis Risk Factors: chronic/serious med cond., isolate/no social support, lives alone, male, limited support Substance Use/Abuse History Drug Use/Abuse Substances Used/Abused No (see HPI) Assessment/Plan Mental Status Orientation: Person, Place, Situation Mental Status Exam: The patient is a morbidly obese 63-year-old male on IV fluids and nasal O2. He was dozing when I first entered the room but was easily arousable. He was initially irritable and defensive regarding our meeting stating "I am not knots ". Eye contact is good. The patient was alert and oriented 3. Gait was not assessed. The patient's speech was normal in rate, rhythm, volume and tone. He describes his mood is frustrated "with everybody trying to tell me what to do". His affect was mood congruent. He was not suicidal or homicidal. Thought process was normal in tempo, stream and form. There were no delusions or obsessions. Attention and concentration were good. There was no perceptual abnormality. Impulse control has been good. The patient is of average intelligence, fund of knowledge average, use of language appropriate. Recent and remote memory are intact. The patient's history is consistent throughout and is also consistent with the history documented on previous admissions. The patient's insight is fair. He accepts that he has serious chronic physical health conditions. He accepts that stable housing would be more advantageous to his health. He reports however that he is unwilling to dispense with his storage locker which is calcium $550 a month in order to facilitate housing. He gives rational reasons for this. Judgment is not impaired at this time. Lab Results: Lab ABG O2 Sat (Measured) 93.0 % L 05/09/18 0305 Carboxyhemoglobin 1.4 % L 05/09/18 0305 HCO3 37 MEQ/L H 05/09/18 0305 O2 Concentration % 3.5L 05/09/18 0305 O2 Delivery Method N/C 05/09/18 0305 P-50 (Temp Corrected) N 05/09/18 0305 pCO2 81 TORR*H 05/09/18 0305 pH 7.28 PH*L 05/09/18 0305 pO2 73 TORR L 05/09/18 0305 Anion Gap 11 05/10/18 0702 BUN 38 mg/dL H 05/10/18 07 BUN/Creatinine Ratio 29.2 % H 05/10/18 0702 Carbon Dioxide 35 mmol/L H 05/10/18 0702 Chloride 92 mmol/L L 05/10/18 07 Creatinine 1.3 mg/dL H 05/10/18 07 Estimated GFR 56 ml/min L 05/10/18 0702 Potassium 4.8 mmol/L 05/10/18 0702 Sodium 137 mmol/L 05/10/18 0702 Hct 41.8 % L 05/10/18 07 Hgb 13.1 G/DL L 05/10/18 07 MCHC 31.3 G/DL L 05/10/18 07 Plt Count 194 /CUMM 05/10/18 07 RBC 4.85 /CUMM 05/10/18 07 RDW 15.9 % H 05/10/18 07 WBC 14.7 /CUMM H 05/10/18 0702 Diffential Diagnosis: No psychiatric diagnosis at this time. Impression: 63-year-old male with multiple chronic, serious medical conditions, now admitted for the seventh time this year. There is no evidence of psychiatric illness at this time. The patient is future oriented, not suicidal or homicidal. He is able to organize his thoughts and presents his history in a coherent and consistent manner. There is no perceptual abnormality. There is no evidence of cognitive impairment. The patient keeps his medical appointments and takes his medication regularly. HbA1c in January of this year was 6.4. The patient reports that he is willing to work with social work regarding housing. Old notes reflect that the patient has met with social work on several occasions during past admissions. That having been said however the patient's choice of living situation is certainly not conducive to his physical health improving. He is not prioritizing his healthcare as would reasonably be expected. He is arguing with his sisters as they too are concerned about his financial decisions. He will not allow me to contact them. This is my first meeting with this patient. I considered the possibility of applying for conservatorship on the basis of poor decision-making. However at this time the patient has capacity to make his decisions and his judgment is not impaired. I would suggest that we keep involved with this case longitudinally. No doubt the patient will be readmitted in the near future and I suggest that psychiatry be consulted at this time. In the interim I understand that he is aware of how to access all housing and financial assistance within the [facility]. Suggest social work see him to confirm this prior to this discharge.
--- NOTE | 2018-05-10 15:49 | Incdntl Nt Psy ---
Incidental Note Notation: The patient gave me permission to speak with his son Amadou Barney at . The patient's son reports that he does not know what to do about the situation with his father. He says that his father wants to get a one family home with a 2 car garage and that this is outside of their meetings. He says that he gave his father 6-7 months to find a place of his father's request. His father was unable to do so. The patient's son was homeless for a time as a result of this. He has a 4-year-old daughter and is now insured housing which he may have to leave by the end of the month. The patient's son reports that he is also hesitant to share a house with his father. He says that his father has always been bad with managing money and that "even when he had a place when we were young he was never able to keep up with payments". As a result he says his father has no referencesd from previous landlords. He says that his father has also alienated all his friends by borrowing money from them. The patient has apparently always lived with family. At one point he ran up an electricity bill for $30,000 when living with his other son. Given this information, we could not reasonably expect the patient's decision- making to improve. His poor decision-making has had and will continue to have a negative impact on his physical health. The possibility of applying for conservatorship should therefore be considered. I will discuss further with medical team and case management.
[2018-05-10 22:01] VITALS: BP 140/86
--- NOTE | 2018-05-11 07:01 | PN- Housestaff ---
Linda Watson 05/11/18 0700: Subjective Follow-up For: HCAP-on IV Antibiotics Subjective: Patient seen and examined at bedside this morning. Patient spoken to about further options for discharge with the medical team and case management. Patient denies any chest pain or palpiations. No use of BiPAP reported. Patient continues to have a productive cough although is afebrile. Continues 3L NC. Review of Systems Constitutional: Denies: see HPI. Objective Last 24 Hrs of Vital Signs/I&O Vital Signs Date Time Temp Pulse Resp B/P B/P Pulse O2 O2 Flow FiO2 Mean Ox Delivery Rate 05/11 0946 94 Nasal 3.5L Cannula 05/11 0810 97.6 78 130/76 05/11 0809 97.6 78 18 130/76 05/11 0800 94 Nasal 3.5L Cannula 05/11 0702 97.6 78 18 130/76 98 Nasal Cannula 05/11 0052 79 95 05/10 2201 98.3 75 20 140/86 95 Nasal Cannula 05/10 2116 93 Nasal 3.5L Cannula 05/10 1518 97.8 79 20 120/68 94 Nasal 3.5L Cannula Intake & Output 05/11 1600 05/11 0800 05/11 0000 Intake Total 760 600 Output Total 1525 Balance 760 -925 Intake, IV 610 500 Intake, Oral 150 100 Output, Urine 1525 Patient 367 lb Weight Weight Bed scale Measurement Method Physical Exam General Appearance: Alert, Oriented X3, Cooperative HEENT: PERRLA, EOMI, Mucous Membr. moist/pink Cardiovascular: Regular Rate, Normal S1, Normal S2 Lungs: Ronchi/Wheezing auscultated in lung jaquez Abdomen: Normal Bowel Sounds, Soft, No Tenderness Neurological: Normal Speech, Normal Tone, Sensation Intact, Reflexes 2+ Extremities: +3 pitting edema in bilateral lower extremities; no pus; no discharge; no wheeping; dressing applied Vascular: Normal Pulses, Pulses Symmetrical Current Medications: Current Medications Sig/Keaton Start time Last Medication Dose Route Stop Time Status Admin Acetaminophen 1,000 MG .STK-MED ONE 05/11 412 DC IV 05/11 041 Acetaminophen 650 MG Q6P PRN 05/09 0130 AC PO Acetaminophen 1,000 MG Q6P PRN 05/09 0130 AC 05/11 IV 0414 Albuterol Sulfate 3 ML TID 05/09 0900 AC 05/11 INH 0930 Ammonium Lactate 1 IDANIA BID 05/10 0900 AC 05/11 TOP 0810 Apixaban 5 MG BID 05/09 0132 AC 05/11 PO 0810 Atorvastatin Calcium 10 MG DAILY 05/09 0900 AC 05/11 PO 0809 Budesonide/ 2 PUF BID 05/10 1125 AC 05/11 Formoterol Fumarate INH 0811 Carvedilol 12.5 MG BID 05/09 0900 AC 05/11 PO 0810 Ceftriaxone Sodium 1,000 MG DAILY@0000 05/10 0000 AC 05/11 IV 0005 Dicyclomine HCl 10 MG TID 05/09 09 AC 05/11 PO 0810 Furosemide 40 MG 7:30 AM, & 4:30 PM 05/09 0930 AC 05/11 PO 0810 Gabapentin 400 MG TID 05/09 0135 AC 05/11 PO 0809 Guaifenesin 600 MG BID 05/09 09 AC 05/11 PO 0809 Hydroxyzine HCl 100 MG BID 05/09 0900 AC 05/11 PO 0810 Insulin Aspart 0 TIDAC 05/09 08 AC 05/11 SC 1241 Insulin Detemir 4 UNITS BID 05/09 0900 AC 05/11 SC 0808 Losartan Potassium 25 MG DAILY 05/09 0900 AC 05/11 PO 0809 Methylprednisolone 40 MG Q12 05/10 2100 AC 05/10 IV 2045 Montelukast Sodium 10 MG 0905/09 0900 AC 05/11 PO 0809 Oxymetazoline HCl 2 SPRAY BID PRN 05/09 0145 AC JOAQUIN 05/12 0144 Tiotropium [place] 1 PUF DAILY 05/09 0900 AC 05/11 INH 0808 Vancomycin HCl 2,000 MG Q12H 05/10 0600 AC 05/11 Sodium Chloride 500 ML IV 0551 Last 24 Hrs of Lab/Joaquim Results Last 24 Hrs of Labs/Mics: Laboratory Tests 05/11/18 0853: Anion Gap 12, Estimated GFR 56 L, BUN/Creatinine Ratio 32.3 H, CBC w Diff NO MAN DIFF REQ, RBC 5.16, MCV 86.4, MCH 27.3, MCHC 31.6 L, RDW 15.8 H, MPV 7.6, Gran % 91.3 H, Lymphocytes % 6.0 L, Monocytes % 2.5, Eosinophils % 0, Basophils % 0.2, Absolute Granulocytes 15.1 H, Absolute Lymphocytes 1.0 L, Absolute Monocytes 0.4, Absolute Eosinophils 0, Absolute Basophils 0 Microbiology 05/10 1416 LOWER RESP: Respiratory Culture - RES 05/10 1416 LOWER RESP: Gram Stain - RES Assessment/Plan Assessment: Patient is a 63 year old male with pmh of CHF, chronic venous insufficiency, COPD (on baseline 3-4L O2), Atrial fibrillation on eliquis, sleep apnea, 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 Recently discharge for acute hypoxic hypercarbic respiratory failure on a perdnisone taper. Temperature of 101 in ED and saturating in 70s on admission. Elevated white count and lactate. CXR showing bibasilar opacities, CT diffuse patchy opacities. Patient now on IV Vancomycin and Ceftriaxone. Problem List: 1. Healthcare acquired pneumonia 2. Psychiatry for conservatorship Plan: * Patient seen by infectious disease today * Continue IV vancomycin Day 3 and ceftriaxone: Follow-up vancomycin trough after second dose today * Follow-up repeat sputum culture * Continue IV methylprednisolone 40 mg decreased to every 12 hours; continue current pulmonary regimen * Patient seen and evaluated by psychiatry and case management; possibility of applying for conservatorship should be considered; will continue to follow up * Patient to have meeting at 2PM today about conservatorship option * Check PA and lateral chest x-ray today as per pulmonology CODE STATUS: DNR DVT prophylaxis: Eliquis Diet: CHF diet Problem List: 1. DNI (do not intubate) 2. History of CHF (congestive heart failure) 3. Pneumonia Pain Ratin Pain Location: Lower extremities Pain Goal: Pain 4 or less Pain Plan: As per pain pathway Tomorrow's Labs & Rationales: CBC BEP DVT/Prophylaxis: pharmacological nIgris Membreno 05/11/18 1333: Attending MD Review Statement Attending Statement Attending MD Statement: examined this patient, discuss w/resident/PA/ADULT NEUROLOGIST, agreed w/resident/PA/ADULT NEUROLOGIST, reviewed EMR data (avail), discussed with nursing, discussed with case mgmt Attending Assessment/Plan: Pneumonia- with postive sputum cultures from previous admission. cont on vanc and ceftriaxone per ID recommendations. Appreciated ID input. Multiple admissions and non complinace and pt living in car prompted psych eval to determine if pt should be considered for conservatorship as pt deteriorating in health and has unrealistic goals . Having a multidisciplinary meeting with pt regarding that today.
[2018-05-11 07:02] VITALS: BP 130/76
--- NOTE | 2018-05-11 08:23 | PN- Pulmonary ---
Subjective HPI/Critical Care Issues: The patient is awake and alert. He is sitting out of bed and is comfortable at rest. He reports that his shortness of breath has improved since admission. He is wheezing less. He has a congested cough but is not expectorating much sputum. There were no overnight events reported. Objective Current Medications: Current Medications Sig/Keaton Start time Last Medication Dose Route Stop Time Status Admin Acetaminophen 650 MG Q6P PRN 05/09 0130 AC PO Acetaminophen 1,000 MG Q6P PRN 05/09 0130 AC 05/11 IV 0414 Acetazolamide 250 MG ONCE ONE 05/10 09 DC 05/10 PO 05/10 0901 0914 Albuterol Sulfate 3 ML TID 05/09 09 AC 05/10 INH 2114 Ammonium Lactate 1 IDANIA BID 05/10 09 AC 05/11 TOP 0810 Apixaban 5 MG BID 05/09 0132 AC 05/11 PO 0810 Atorvastatin Calcium 10 MG DAILY 05/09 09 AC 05/11 PO 0809 Budesonide/ 2 PUF BID 05/10 1125 AC 05/11 Formoterol Fumarate INH 0811 Carvedilol 12.5 MG BID 05/09 09 AC 05/11 PO 0810 Ceftriaxone Sodium 1,000 MG DAILY@0000 05/10 0000 AC 05/11 IV 0005 Dicyclomine HCl 10 MG TID 05/09 09 AC 05/11 PO 0810 Furosemide 40 MG 7:30 AM, & 4:30 PM 05/09 0930 AC 05/11 PO 0810 Gabapentin 400 MG TID 05/09 0135 AC 05/11 PO 0809 Guaifenesin 600 MG BID 05/09 09 AC 05/11 PO 0809 Hydroxyzine HCl 100 MG BID 05/09 0900 AC 05/11 PO 0810 Insulin Aspart 0 TIDAC 05/09 08 AC 05/11 SC 0809 Insulin Detemir 4 UNITS BID 05/09 09 AC 05/11 SC 0808 Losartan Potassium 25 MG DAILY 05/09 09 AC 05/11 PO 0809 Methylprednisolone 40 MG Q12 05/10 2100 AC 05/10 IV 2045 Methylprednisolone 40 MG Q8 05/09 0600 DC 05/10 IV 0711 Montelukast Sodium 10 MG 0900 05/09 0900 AC 05/11 PO 0809 Oxymetazoline HCl 2 SPRAY BID PRN 05/09 0145 AC JOAQUIN 05/12 0144 Tiotropium [place] 1 PUF DAILY 05/09 0900 AC 05/11 INH 0808 Vancomycin HCl 2,000 MG Q12H 05/10 06 AC 05/11 Sodium Chloride 500 ML IV 0551 Vital Signs & I&O Last 24 Hrs of Vitals and I&O: Vital Signs Date Time Temp Pulse Resp B/P B/P Pulse O2 O2 Flow FiO2 Mean Ox Delivery Rate 05/11 0810 97.6 78 130/76 05/11 0809 97.6 78 18 130/76 05/11 0702 97.6 78 18 130/76 98 Nasal Cannula 05/11 0052 79 95 05/10 2201 98.3 75 20 140/86 95 Nasal Cannula 05/10 2116 93 Nasal 3.5L Cannula 05/10 1518 97.8 79 20 120/68 94 Nasal 3.5L Cannula 05/10 1209 96 Nasal 3.5L Cannula 05/10 0913 97.6 80 18 124/62 05/10 0912 97.6 80 18 124/62 Intake & Output 05/11 1600 05/11 0800 05/11 0000 Intake Total 760 600 Output Total 1525 Balance 760 -925 Intake, IV 610 500 Intake, Oral 150 100 Output, Urine 1525 Patient 367 lb Weight Weight Bed scale Measurement Method Physical Exam General Appearance: no apparent distress, alert, awake, comfortable, morbidly obese Head: atraumatic Neck: supple Respiratory: decreased breath sounds, wheezing improved Cardiovascular: S1 and S2 heard Gastrointestinal: normal bowel sounds, soft, non-tender Extremities: edema and chronic venous stasis Skin: warm/dry Impression/Plan Impression/Plan Impression/Plan: * Continue BIPAP qhs and PRN. * Change to prednisone 40 mg orally daily. * TRC/Nebs to continue. * Continue Symbicort and Singulair. * ID input pending. * Supplemental oxygen for saturations greater than 92%. * Incentive spirometry. * Management of medical comorbidities as per primary medical team. Recommendations: * Again, please attempt to obtain repeat sputum for culture. * Continue vancomycin and ceftriaxone as per ID. * Check a PA and lateral chest x-ray today. * Continue BIPAP qhs and PRN. * IV methylprednisone 40mg - decrease to q 12 hours. Will taper off quickly as tolerated. * TRC/Nebs to continue. * Continue Symbicort and Singulair. * Supplemental oxygen for saturations greater than 92%. * Incentive spirometry. * Follow-up cardiology input regarding management of CHF. * Increase activity, ambulate as tolerated. * DVT prophylaxis at all times. * Management of medical comorbidities as per primary medical team.
[2018-05-11 09:12] LABS: ABSOLUTE BASOPHIL COUNT 0 /CUMM (0.0-0.2); ABSOLUTE EOSINOPHIL COUNT 0 /CUMM (0.0-0.7); ABSOLUTE GRANULOCYTE CT 15.1 /CUMM (1.4-6.5); ABSOLUTE MONOCYTE COUNT 0.4 /CUMM (0.10-0.60); BASOPHIL % 0.2 % (0.0-2.0); EOSINOPHIL % 0 % (0-5); HEMATOCRIT 44.6 % (42-52); MEAN CORPUSCULAR HGB 27.3 PG (27.0-31.0); MEAN CORPUSCULAR HGB CONC 31.6 G/DL (33.0-37.0); MEAN CORPUSCULAR VOLUME 86.4 FL (80.0-94.0); MEAN PLATELET VOLUME 7.6 FL (7.4-10.4); PLATELET COUNT 202 /CUMM (130-400); RBC DISTRIBUTION WIDTH 15.8 % (11.5-14.5); RED BLOOD CELL CT 5.16 /CUMM (4.70-6.10); WHITE BLOOD CELL COUNT 16.5 /CUMM (4.8-10.8)
[2018-05-11 09:36] LABS: GRANULOCYTE % 91.3 % (42.2-75.2)
--- NOTE | 2018-05-11 11:52 | PN- Infect Dx ---
Subjective Subjective: Afebrile on steroids. He feels better with decreased shortness of breath, though he notes chest discomfort with deep inspiration, limiting his ability to take a deep breath. His cough has improved and is less productive. Objective Last 24 Hrs of Vital Signs/I&O Vital Signs Date Time Temp Pulse Resp B/P B/P Pulse O2 O2 Flow FiO2 Mean Ox Delivery Rate 05/11 0946 94 Nasal 3.5L Cannula 05/11 0810 97.6 78 130/76 05/11 0809 97.6 78 18 130/76 05/11 0800 94 Nasal 3.5L Cannula 05/11 0702 97.6 78 18 130/76 98 Nasal Cannula 05/11 0052 79 95 05/10 2201 98.3 75 20 140/86 95 Nasal Cannula 05/10 2116 93 Nasal 3.5L Cannula 05/10 1518 97.8 79 20 120/68 94 Nasal 3.5L Cannula 05/10 1209 96 Nasal 3.5L Cannula Intake & Output 05/11 1600 05/11 0800 05/11 0000 Intake Total 760 600 Output Total 1525 Balance 760 -925 Intake, IV 610 500 Intake, Oral 150 100 Output, Urine 1525 Patient 367 lb Weight Weight Bed scale Measurement Method Physical Exam Other Physical Findings: He appears comfortable in no acute distress Lungs decreased breath sounds with no rhonchi or wheezes Heart regular rhythm with no murmur Extremities chronic venous stasis changes both lower extremities Results Last 24 Hours of Lab Results: Laboratory Tests 05/11 0853 Chemistry Sodium (137 - 145 mmol/L) 137 Potassium (3.5 - 5.1 mmol/L) 5.1 Chloride (98 - 107 mmol/L) 93 L Carbon Dioxide (22 - 30 mmol/L) 31 H Anion Gap (5 - 16) 12 BUN (9 - 20 mg/dL) 42 H Creatinine (0.7 - 1.2 mg/dL) 1.3 H Estimated GFR (>60 ml/min) 56 L BUN/Creatinine Ratio (7 - 25 %) 32.3 H Hematology CBC w Diff NO MAN DIFF REQ WBC (4.8 - 10.8 /CUMM) 16.5 H RBC (4.70 - 6.10 /CUMM) 5.16 Hgb (14.0 - 18.0 G/DL) 14.1 Hct (42 - 52 %) 44.6 MCV (80.0 - 94.0 FL) 86.4 MCH (27.0 - 31.0 PG) 27.3 MCHC (33.0 - 37.0 G/DL) 31.6 L RDW (11.5 - 14.5 %) 15.8 H Plt Count (130 - 400 /CUMM) 202 MPV (7.4 - 10.4 FL) 7.6 Gran % (42.2 - 75.2 %) 91.3 H Lymphocytes % (20.5 - 51.1 %) 6.0 L Monocytes % (1.7 - 9.3 %) 2.5 Eosinophils % (0 - 5 %) 0 Basophils % (0.0 - 2.0 %) 0.2 Absolute Granulocytes (1.4 - 6.5 /CUMM) 15.1 H Absolute Lymphocytes (1.2 - 3.4 /CUMM) 1.0 L Absolute Monocytes (0.10 - 0.60 /CUMM) 0.4 Absolute Eosinophils (0.0 - 0.7 /CUMM) 0 Absolute Basophils (0.0 - 0.2 /CUMM) 0 Last 24 Hours of Joaquim Results: Sputum culture May 10 pending Blood cultures x2 May 08 negative Assessment/Plan ID Impression: Improving, with temperatures remaining normal (on steroids) on Vancomycin and Ceftriaxone, Day 2 of treatment for possible multifocal pneumonia, with his recent sputum culture positive for MRSA and several gram-negative rods. His white blood cell count has increased today, likely secondary to the steroids. Suggestion: 1. Follow-up recent sputum culture 2. Vancomycin trough level with his next dose 3. Continue Vancomycin and Ceftriaxone
[2018-05-11 14:22] VITALS: BP 128/90
--- NOTE | 2018-05-11 15:54 | Incdntl Nt Psy ---
Incidental Note Notation: Met w pt together with medical team, social work and case managment. Pt remains adamant that he wants to get a home with his son, despite his son kavitha told him this morning that he wants the pt to go to assisted living. Pt has fixed ideas about what he wants but no plans about how to attain it. Thinking is rigid and not amenable to reason. Per son this is baseline. Pt has had 21 admissions since Jul 2016. Although his judgenment is not acutely impaired, he is making decisions that are adversely affecting his care without a rational explanation. he was advised that the team is sufficiently concerned about his outsome that we recommend cnoservatorship. Pt stated that his sister nubia also suggested this and he refuses. Advised by team that the Hospital will seek legal opinion and will apply for conservatorsdhip. Advised that this will not in any way affect his care during this or future asmissions. [place] reassured patient that the ultimate aim is to optimize his health. ] Attempted to call son Rajni. Phone went directly to with no set up.
--- NOTE | 2018-05-11 16:52 | RADIOLOGY REPORT ---
EXAMINATION: XR CHEST CLINICAL INFORMATION: Fluid overload. Pneumonia. COMPARISON: CT chest 05/09/2018. Portable chest 05/08/2018 TECHNIQUE: 2 views of the chest were obtained. FINDINGS: The previously seen consolidation at the right lung base has cleared. There is a linear streaky opacity of scarring or subsegmental atelectasis still at the right lung base. The lungs are otherwise normally aerated bilaterally. No pulmonary vascular congestion. There is no pleural effusion. Pacemaker lead in the right atrium and right ventricle and coronary sinus. IMPRESSION: Previously seen consolidation at right lung base has cleared since chest x-ray of 05/08/2018. Residual linear scar or linear atelectasis at right lung base. No pulmonary vascular congestion. No pleural effusion.
[2018-05-11 22:00] VITALS: BP 132/90
[2018-05-12 06:29] VITALS: BP 128/76
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
--- NOTE | 2018-05-12 09:06 | PN- Pulmonary ---
Subjective HPI/Critical Care Issues: The patient is awake and alert. He reports feeling better overall. There were no overnight events reported. He has less shortness of breath, but does have a cough. He is unable to expectorate. He denies any wheezing. There is no report of chest pain, abdominal pain, nausea or vomiting. He has no fever or chills. Objective Current Medications: Current Medications Sig/Keaton Start time Last Medication Dose Route Stop Time Status Admin Acetaminophen 650 MG .STK-MED ONE 05/11 1330 DC PO 05/11 1331 Acetaminophen 650 MG Q6P PRN 05/09 0130 AC 05/11 PO 1333 Acetaminophen 1,000 MG Q6P PRN 05/09 0130 AC 05/12 IV 0433 Albuterol Sulfate 3 ML TID 05/09 900 AC 05/12 INH 0758 Ammonium Lactate 1 IDANIA BID 05/10 09 AC 05/12 TOP 0742 Apixaban 5 MG BID 05/09 0132 AC 05/12 PO 0740 Atorvastatin Calcium 10 MG DAILY 05/09 900 AC 05/12 PO 0739 Budesonide/ 2 PUF BID 05/10 1125 AC 05/12 Formoterol Fumarate INH 0742 Carvedilol 12.5 MG BID 05/09 09 AC 05/12 PO 0739 Ceftriaxone Sodium 1,000 MG DAILY@0000 05/10 0000 AC 05/12 IV 0103 Dicyclomine HCl 10 MG TID 05/09 900 AC 05/12 PO 0739 Furosemide 40 MG 7:30 AM, & 4:30 PM 05/09 0930 AC 05/12 PO 0739 Gabapentin 400 MG TID 05/09 0135 AC 05/12 PO 0739 Guaifenesin 600 MG BID 05/09 09 AC 05/12 PO 0739 Hydroxyzine HCl 100 MG BID 05/09 09 AC 05/12 PO 0739 Insulin Aspart 0 TIDAC 05/09 08 AC 05/12 SC 0738 Insulin Detemir 4 UNITS BID 05/09 900 AC 05/12 SC 0738 Losartan Potassium 25 MG DAILY 05/09 900 AC 05/12 PO 0739 Methylprednisolone 40 MG Q12 05/10 2100 AC 05/12 IV 0738 Montelukast Sodium 10 MG 0900 05/09 09 AC 05/12 PO 0740 Oxymetazoline HCl 2 SPRAY BID PRN 05/09 0145 DC JOAQUIN 05/12 0144 Patient Medication 1 ED ONE ONE 05/11 1715 DC Teaching ED 05/11 1716 Tiotropium [place] 1 PUF DAILY 05/09 09 AC 05/12 INH 0740 Vancomycin HCl 2,000 MG Q12H 05/10 06 AC 05/12 Sodium Chloride 500 ML IV 0456 Vital Signs & I&O Last 24 Hrs of Vitals and I&O: Vital Signs Date Time Temp Pulse Resp B/P B/P Pulse O2 O2 Flow FiO2 Mean Ox Delivery Rate 05/12 0739 74 128/76 05/12 0739 74 128/76 05/12 0629 98.1 74 20 128/76 97 Nasal Cannula 05/12 0000 Nasal 3.5L Cannula 05/11 2200 98.5 76 20 132/90 95 05/11 2150 76 132/90 05/11 1840 98 Nasal 3.0L Cannula 05/11 1422 97.9 81 20 128/90 96 05/11 0946 94 Nasal 3.5L Cannula Intake & Output 05/12 1600 05/12 0800 05/12 0000 Intake Total Output Total 825 Balance -825 Output, Urine 825 Patient 365 lb Weight Physical Exam General Appearance: no apparent distress, alert, awake, comfortable, morbidly obese Head: atraumatic Neck: supple Respiratory: decreased breath sounds, wheezing improved Cardiovascular: S1 and S2 heard Gastrointestinal: normal bowel sounds, soft, non-tender Extremities: edema and chronic venous stasis Skin: warm/dry Results Last 24 Hrs of Lab Results: Laboratory Tests 05/11/18 1758: Vancomycin Trough 15.2 Impression/Plan Impression/Plan Impression/Plan: 1. Acute hypercarbic resp failure with COPD and JORY with noncompliance of bipap. 2. Possible pneumonia with current sputum positive for yeast. Recent sputum positive for MRSA and gram-negative rods. The patient remains on vancomycin and ceftriaxone as per ID. 3. Low EF with fluid overload. 4. Atrial fibrillation. 5. JORY noncompliant with therapy. 6. History of gout. 7. CT scan of the chest shows multifocal pneumonia, suggestive of an atypical process. Will need follow-up. Recommendations: * Continue antibiotics as per ID. * Continue BIPAP qhs and PRN. * Change to prednisone 60 mg daily. Will taper off as quickly as possible. * TRC/Nebs to continue. * Continue Symbicort and Singulair. * Supplemental oxygen for saturations greater than 92%. * Incentive spirometry. * Management of CHF as per cardiology and primary team. * Increase activity, ambulate as tolerated. * DVT prophylaxis at all times. * Management of medical comorbidities as per primary medical team. * Will need a follow-up CT scan of the chest in 8 weeks to ensure resolution of the pneumonia.
--- NOTE | 2018-05-12 10:57 | PN- Infect Dx ---
Subjective Subjective: Afebrile on steroids. He feels improved though still notes a cough, occasionally productive of white/yellow sputum. Objective Last 24 Hrs of Vital Signs/I&O Vital Signs Date Time Temp Pulse Resp B/P B/P Pulse O2 O2 Flow FiO2 Mean Ox Delivery Rate 05/12 0800 Nasal 3.5L Cannula 05/12 0739 74 128/76 05/12 0739 74 128/76 05/12 0629 98.1 74 20 128/76 97 Nasal Cannula 05/12 0000 Nasal 3.5L Cannula 05/11 2200 98.5 76 20 132/90 95 05/11 2150 76 132/90 05/11 1840 98 Nasal 3.0L Cannula 05/11 1422 97.9 81 20 128/90 96 Intake & Output 05/12 1600 05/12 0800 05/12 0000 Intake Total Output Total 825 Balance -825 Output, Urine 825 Patient 365 lb Weight Physical Exam Other Physical Findings: He appears comfortable in no acute distress Lungs are clear Heart regular rhythm with no murmur Extremities dressings intact over both lower extremities Results Last 24 Hours of Lab Results: Laboratory Tests 05/11 1758 Toxicology Vancomycin Trough (10.0 - 20.0 ug/mL) 15.2 Last 24 Hours of Joaquim Results: Sputum culture May 10 light growth of yeast with mixed inocencio Blood cultures 2 May 08 negative Recent Imaging Studies: Chest x-ray May 11 resolution of the previously seen consolidation at the right lung base Assessment/Plan ID Impression: Overall improved, with temperatures remaining normal (on steroids) and recent chest x-ray improved, on Vancomycin and Ceftriaxone, Day 3 of treatment for probable multifocal pneumonia, with his recent sputum culture positive for MRSA, Klebsiella and Pantoea. His white blood cell count yesterday was increased, likely secondary to the steroids. His Vancomycin trough level is noted and is therapeutic. Suggestion: 1. Further management of steroids per Pulmonary 2. Continue Vancomycin and Ceftriaxone but, if continues to improve and planning for discharge, can change to Bactrim DS 1 p.o. every 12 hours for 1 more week
[2018-05-12 15:41] VITALS: BP 142/60
--- NOTE | 2018-05-12 15:50 | Patient Discharge Instructions ---
Discharge Instructions General Discharge Information You were seen/treated for: MRSA PNEUMONIA Special Instructions: F/U PCP IN ONE WEEK AFTER D/C F/U WOOL FLEECE GRADER IN ONE WEEK AFTER D/C F/U JAWBONE BREAKER IN ONE WEEK AFTER D/C Diet Continue normal diet: Yes Activity Full Activity/No Limits: Yes Acute Coronary Syndrome Inclusion Criteria At DC or during hospital stay patient has or had the following: ACS DIAGNOSIS No Discharge Core Measures Meds if any: Prescribed or Continued at Discharge Meds if any: NOT Prescribed or Continued at Discharge Congestive Heart Failure Inclusion Criteria At DC or during hospital stay patient has or had the following: CHF DIAGNOSIS No Discharge Core Measures Meds if any: Prescribed or Continued at Discharge Meds if any: NOT Prescribed or Continued at Discharge Cerebrovascular accident Inclusion Criteria At DC or during hospital stay patient has or had the following: CVA/TIA Diagnosis No Discharge Core Measures Meds if any: Prescribed or Continued at Discharge Meds if any: NOT Prescribed or Continued at Discharge Venous thromboembolism Inclusion Criteria VTE Diagnosis No VTE Type NONE VTE Confirmed by (Test) NONE Discharge Core Measures - Per Current guidelines, there needs to be overlap - treatment for the first 5 days of Warfarin therapy. - If discharged on Warfarin prior to 5 days of - overlap therapy, the patient will need to be - assessed for post discharge needs including - *Post discharge parental anticoagulation - *Warfarin and/or parental anticoagulation education - *Follow up date to check INR post discharge At least 5 days overlap therapy as Inpatient No Meds if any: Prescribed or Continued at Discharge Note: Overlap Therapy is Warfarin and Anticoagulant Meds if any: NOT Prescribed or Continued at Discharge
[2018-05-12] MEDS ORDERED: BACTRIM DS TAB1 EACH PO (15:54)
[2018-05-12] MEDS ORDERED: PREDNISONE10 M2 PO (15:54)
[2018-05-12 21:52] VITALS: BP 130/74
[2018-05-13 06:54] VITALS: BP 104/68
--- NOTE | 2018-05-13 06:58 | PN- Housestaff ---
Linda Watson 05/13/18 0658: Subjective Follow-up For: Multifocal Pneumonia-Day 4 IV antibiotic; improved chest x ray; switch to PO Abx Subjective: Patient seen and examined at bedside this morning. Patient is decided to leave the hospital AGAINST MEDICAL ADVICE. During patient's stay the medical team at a meeting to plan to pursue for conservatorship. Was discussed with the patient that his discharge to his truck is not safe. Patient denies any chest pain, palpitations at this time. Patient claims he feels better after the antibiotics and has been afebrile since admission. However he is eager to go home and claims his son will bring his truck to the hospital so that he could sign out AMA. Review of Systems Constitutional: Denies: see HPI. Objective Last 24 Hrs of Vital Signs/I&O Vital Signs Date Time Temp Pulse Resp B/P B/P Pulse O2 O2 Flow FiO2 Mean Ox Delivery Rate 05/13 0829 96 Nasal 3.5L Cannula 05/13 0807 74 104/68 05/13 0806 74 104/68 05/13 0800 Nasal 3.5L Cannula 05/13 0654 97.5 74 18 104/68 96 Nasal Cannula 05/13 0000 Nasal 3.5L Cannula 05/12 2152 98.6 75 18 130/74 96 Nasal Cannula 05/12 2110 83 142/60 05/12 2013 96 Nasal 3.5L Cannula Intake & Output 05/13 1600 05/13 0800 05/13 0000 Intake Total 440 400 Output Total 350 Balance 440 50 Intake, IV 200 Intake, Oral 240 400 Number 0 Bowel Movements Output, Urine 350 Patient 363 lb Weight Weight Chair scale Measurement Method Physical Exam General Appearance: Alert, Oriented X3, Cooperative, No Acute Distress HEENT: PERRLA, EOMI, Mucous Membr. moist/pink Cardiovascular: Normal S1, Normal S2, Irregulary irregular Lungs: Lung sounds significantly improved since day 1; improved air movement; minimal ronchi/wheezing as per patients baseline Abdomen: Normal Bowel Sounds, Soft, No Tenderness Neurological: Normal Speech, Strength at 5/5 X4 Ext, Normal Tone, Sensation Intact, Reflexes 2+ Extremities: Patient has +3 bilateral lower extermity pitting edema with chronic venous changes Vascular: Normal Pulses, Pulses Symmetrical Current Medications: Current Medications Sig/Keaton Start time Last Medication Dose Route Stop Time Status Admin Acetaminophen 1,000 MG .STK-MED ONE 05/13 0617 DC IV 05/13 0618 Acetaminophen 1,000 MG .STK-MED ONE 05/12 2325 DC IV 05/12 2326 Acetaminophen 650 MG Q6P PRN 05/09 0130 DCD 05/11 PO 1333 Acetaminophen 1,000 MG Q6P PRN 05/09 0130 DCD 05/13 IV 0621 Albuterol Sulfate 3 ML TID 05/09 0900 DCD 05/13 INH 1321 Ammonium Lactate 1 IDANIA BID 05/10 0900 DCD 05/13 TOP 0810 Apixaban 5 MG BID 05/09 0132 DCD 05/13 PO 0806 Atorvastatin Calcium 10 MG DAILY 05/09 09 DCD 05/13 PO 0806 Budesonide/ 2 PUF BID 05/10 1125 DCD 05/13 Formoterol Fumarate INH 0809 Carvedilol 12.5 MG BID 05/09 0900 DCD 05/13 PO 0806 Ceftriaxone Sodium 1,000 MG DAILY@0000 05/10 0000 DC 05/12 IV 2328 Dicyclomine HCl 10 MG TID 05/09 0900 DCD 05/13 PO 0806 Furosemide 40 MG 7:30 AM, & 4:30 PM 05/09 0930 DCD 05/13 PO 0806 Gabapentin 400 MG TID 05/09 0135 DCD 05/13 PO 0806 Guaifenesin 600 MG BID 05/09 0900 DCD 05/13 PO 0806 Hydroxyzine HCl 100 MG BID 05/09 0900 DCD 05/13 PO 0806 Insulin Aspart 0 TIDAC 05/09 08 DCD 05/13 SC 1211 Insulin Detemir 4 UNITS BID 05/09 0900 DCD 05/13 SC 0807 Losartan Potassium 25 MG DAILY 05/09 09 DCD 05/13 PO 0807 Montelukast Sodium 10 MG 0900 05/09 0900 DCD 05/13 PO 0806 Prednisone 60 MG DAILY 05/13 0900 DCD 05/13 PO 0806 Tiotropium [place] 1 PUF DAILY 05/09 0900 DCD 05/13 INH 0807 Trimethoprim/ 1 TAB BID 05/13 1000 DCD 05/13 Sulfamethoxazole PO 1211 Vancomycin HCl 2,000 MG Q12H 05/10 0600 DC 05/12 Sodium Chloride 500 ML IV 1702 Last 24 Hrs of Lab/Joaquim Results Last 24 Hrs of Labs/Mics: Laboratory Tests 05/13/18 0615: Vancomycin Trough 23.5 H Assessment/Plan Assessment: Patient is a 63-year-old male with past medical history significant of atrial fibrillation on Eliquis, COPD on home O2 baseline oxygen 3-4 L, CHF, chronic venous insufficiency, 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 Patient was recently discharged for acute hypoxic hypercarbic respiratory failure on a prednisone taper. Patient had 101.0 temperature in the ED saturating in the 70s on admission. At that time he also had elevated white count and lactate. Initial chest x-ray on 05/08/[address] demonstrated patchy opacities. Repeat chest x-ray on 05/12/18 demonstrated significant resolution of the right lower lung base opacity. Patient is on day 4 of vancomycin and ceftriaxone. Patient claims that his breathing is significantly improved and he feels better after the antibiotics. Patient has been extensively followed up by infectious disease, build master, medical team. Patient has had multiple discussions about his unsafe discharge back to his truck. Meeting was held with patient on 05/12/18 about plan to pursue for conservatorship. Patient decided to leave against AMA today. Discussed with patient of his unsafe discharge to his living situations in his truck. Advisde patient to return to ED if worsening respiratory status, chest pain, palpitations. Problem list: 1. Multifocal pneumoniaprevious sputum culture growing Klebsiella, MRSA, [place]; recent growing gram negative rods, staph, yeast 2. Psychiatry for Conservatorship PLAN: * Patient decided to leave against medical advice today 05/13/2018 despite education on his condition and his unsafe discharge plan to his truck. * Vancomycin and ceftriaxone have been discontinued. Patient Bactrim DS 1 p.o. every's 12 hours for 6 days. Patient received day for treatment of vancomycin and ceftriaxone for probable multifocal pneumonia, with a recent sputum culture again positive for staph and gram-negative rods. Repeat vancomycin level was elevated prior to transition to oral antibiotics and discharge. * Continue prednisone oral 60 mg daily taper. Continue pulmonary regimen. * Patient will need a follow-up CT scan of the chest in 8 weeks to ensure resolution of the pneumonia as per pulmonology, Dr. Dewey. * Patient advised to return to the ED with worsening respiratory status including shortness of breath, chest pain, palpitations. Code Status: DNI DVT PPX: Eliquis Diet: CHF diet and 2 gm salt restriction Problem List: 1. History of CHF (congestive heart failure) 2. DNI (do not intubate) Pain Ratin Pain Location: lower extremity Pain Goal: Remain pain free Pain Plan: as per pain pathway Tomorrow's Labs & Rationales: Patient left AMA Discharge Plan Discharge Disposition: Left AMA Ingris Membreno 05/13/18 1431: Attending MD Review Statement Attending Statement Attending MD Statement: examined this patient, discuss w/resident/PA/APRN, agreed w/resident/PA/APRN, reviewed EMR data (avail), discussed with nursing, discussed with case mgmt Attending Assessment/Plan: Pt did not have a safe dc plan and signed out AMA. Paperwork for conservatorship will be filed . see dc summary for more details. pt is being dced on po bactrim per id recommendations.
--- NOTE | 2018-05-13 08:03 | PN- Pulmonary ---
Subjective HPI/Critical Care Issues: The patient is awake and alert. He reports feeling improved overall. He is no longer experiencing significant shortness of breath. He has no cough or wheezing. He denies chest pain or abdominal pain. The patient is frustrated over his social issues. There were no overnight events reported by staff. Objective Current Medications: Current Medications Sig/Keaton Start time Last Medication Dose Route Stop Time Status Admin Acetaminophen 1,000 MG .STK-MED ONE 05/12 2325 DC IV 05/12 2326 Acetaminophen 650 MG Q6P PRN 05/09 0130 AC 05/11 PO 1333 Acetaminophen 1,000 MG Q6P PRN 05/09 0130 AC 05/13 IV 0621 Albuterol Sulfate 3 ML TID 05/09 900 AC 05/12 INH 1957 Ammonium Lactate 1 IDANIA BID 05/10 09 AC 05/12 TOP 2112 Apixaban 5 MG BID 05/09 0132 AC 05/12 PO 2109 Atorvastatin Calcium 10 MG DAILY 05/09 09 AC 05/12 PO 0739 Budesonide/ 2 PUF BID 05/10 1125 AC 05/12 Formoterol Fumarate INH 2111 Carvedilol 12.5 MG BID 05/09 09 AC 05/12 PO 2110 Ceftriaxone Sodium 1,000 MG DAILY@0000 05/10 0000 AC 05/12 IV 2328 Dicyclomine HCl 10 MG TID 05/09 900 AC 05/12 PO 2109 Furosemide 40 MG 7:30 AM, & 4:30 PM 05/09 0930 AC 05/12 PO 1702 Gabapentin 400 MG TID 05/09 0135 AC 05/12 PO 2110 Guaifenesin 600 MG BID 05/09 09 AC 05/12 PO 2110 Hydroxyzine HCl 100 MG BID 05/09 09 AC 05/12 PO 2109 Insulin Aspart 0 TIDAC 05/09 08 AC 05/12 SC 1705 Insulin Detemir 4 UNITS BID 05/09 09 AC 05/12 SC 2117 Losartan Potassium 25 MG DAILY 05/09 09 AC 05/12 PO 0739 Methylprednisolone 40 MG Q12 05/10 2100 DC 05/12 IV 0738 Montelukast Sodium 10 MG 0900 05/09 0900 AC 05/12 PO 0740 Prednisone 60 MG DAILY 05/13 0900 AC PO Tiotropium [place] 1 PUF DAILY 07/15 0900 AC 05/12 INH 0740 Vancomycin HCl 2,000 MG Q12H 05/10 0600 AC 05/12 Sodium Chloride 500 ML IV 1702 Vital Signs & I&O Last 24 Hrs of Vitals and I&O: Vital Signs Date Time Temp Pulse Resp B/P B/P Pulse O2 O2 Flow FiO2 Mean Ox Delivery Rate 05/13 0654 97.5 74 18 104/68 96 Nasal Cannula 05/13 0000 Nasal 3.5L Cannula 05/12 2152 98.6 75 18 130/74 96 Nasal Cannula 05/12 2110 83 142/60 05/12 2013 96 Nasal 3.5L Cannula 05/12 1600 Nasal Cannula 05/12 1541 97.7 83 20 142/60 98 Nasal 3.5L Cannula 05/12 1353 97 Nasal 3.5L Cannula 05/12 0800 Nasal 3.5L Cannula Intake & Output 05/13 0800 05/13 0000 05/12 1600 Intake Total 440 400 700 Output Total 350 800 Balance 440 50 -100 Intake, IV 200 Intake, Oral 240 400 700 Number 0 1 Bowel Movements Output, Urine 350 800 Patient 363 lb Weight Weight Chair scale Measurement Method Physical Exam General Appearance: no apparent distress, alert, awake, comfortable Head: atraumatic Neck: supple Respiratory: decreased breath sounds, wheezing Cardiovascular: S1 and S2 heard Gastrointestinal: normal bowel sounds, soft, non-tender Extremities: edema and chronic venous stasis Skin: warm/dry Results Last 24 Hrs of Lab Results: Laboratory Tests 05/13/18 0615: Vancomycin Trough Pending Impression/Plan Impression/Plan Impression/Plan: 1. Acute hypercarbic resp failure with COPD and JORY with noncompliance of bipap. 2. Pneumonia. 3. Low EF with fluid overload. 4. Atrial fibrillation. 5. JORY noncompliant with therapy. 6. History of gout. 7. CT scan of the chest shows multifocal pneumonia, suggestive of an atypical process. Will need follow-up. Recommendations: * Continue antibiotics as per ID. * Continue BIPAP qhs and PRN. * Prednisone 60 mg daily. Will taper off as quickly as possible. * TRC/Nebs to continue. * Continue Symbicort and Singulair. * Supplemental oxygen for saturations greater than 92%. * Incentive spirometry. * Increase activity, ambulate as tolerated. * DVT prophylaxis at all times. * Management of medical comorbidities as per primary medical team. * Will need a follow-up CT scan of the chest in 8 weeks to ensure resolution of the pneumonia.
[2018-05-13 08:07] VITALS: BP 104/68
--- NOTE | 2018-05-13 12:38 | PN- Infect Dx ---
Subjective Subjective: Afebrile on steroids. He feels improved though still notes a cough, productive of beige sputum Objective Last 24 Hrs of Vital Signs/I&O Vital Signs Date Time Temp Pulse Resp B/P B/P Pulse O2 O2 Flow FiO2 Mean Ox Delivery Rate 05/13 0829 96 Nasal 3.5L Cannula 05/13 0807 74 104/68 05/13 0806 74 104/68 05/13 0800 Nasal 3.5L Cannula 05/13 0654 97.5 74 18 104/68 96 Nasal Cannula 05/13 0000 Nasal 3.5L Cannula 05/12 2152 98.6 75 18 130/74 96 Nasal Cannula 05/12 2110 83 142/60 05/12 2013 96 Nasal 3.5L Cannula 05/12 1600 Nasal Cannula 05/12 1541 97.7 83 20 142/60 98 Nasal 3.5L Cannula 05/12 1353 97 Nasal 3.5L Cannula Intake & Output 05/13 1600 05/13 0800 05/13 0000 Intake Total 440 400 Output Total 350 Balance 440 50 Intake, IV 200 Intake, Oral 240 400 Number 0 Bowel Movements Output, Urine 350 Patient 363 lb Weight Weight Chair scale Measurement Method Physical Exam Other Physical Findings: He appears comfortable in no acute distress Lungs scattered rhonchi and wheezing bilaterally Heart regular rhythm with no murmur Extremities dressings intact over both lower extremities Results Last 24 Hours of Lab Results: Laboratory Tests 05/13 615 Toxicology Vancomycin Trough (10.0 - 20.0 ug/mL) 23.5 H Last 24 Hours of Joaquim Results: Sputum culture May 10 positive for Staph aureus, gram-negative rods and yeast Assessment/Plan ID Impression: Overall improved, with temperatures remaining normal (on steroids) and with his recent chest x-ray improved, on Vancomycin and Ceftriaxone, Day 4 of treatment for probable multifocal pneumonia, with a recent sputum culture again positive for Staph and gram-negative rods, which likely will prove to be the same organisms isolated from the sputum culture on his recent hospitalization. His last white blood cell count remained elevated, most likely secondary to the steroids. The repeat vancomycin trough level was elevated and, as discussed, his antibiotics can be adjusted to an oral regimen. Suggestion: 1. Further tapering of steroids per Pulmonary 2. Discontinue Vancomycin and Ceftriaxone 3. Begin Bactrim DS 1 p.o. every 12 hours for 6 days
[2018-05-13] MEDS ORDERED: BACTRIM DS TAB1 EACH PO (13:21)
[2018-05-13] MEDS ORDERED: PREDNISONE10 M2 PO (13:21)
--- NOTE | 2018-05-13 13:21 | Event Note ---
Event Note Event Note: Patient decided to leave AMA today 05/13/18. Patients case was thoroughly discussed with the medical team including a formal meeting with case management and psychiatry. Patient was advised the danger of his discharge to go back to his current living situations.
--- NOTE | 2018-05-14 14:09 | Discharge Summary ---
Visit Information Visit Dates Admission Date: 05/11/18 Discharge Date: 05/13/18 Hospital Course Course Attending Physician: Temi HARPER,Ingris Stahl Primary Care Physician: Carlee Mooney APRN Hospital Course: Patient is 63-year-old morbidly obese male with past medical history of CHF ( HFrEF), chronic lower extremity edema/venous insufficiency, COPD on baseline 3-4 L of oxygen, atrial fibrillation on Eliquis, sleep apnea, cardiomyopathy status post AICD placement, [id number] diabetes mellitus on metformin, hyperlipidemia, prior OH was found in a tripoding position at a [facility] without any supplemental oxygen. Patient was brought into the ER by ambulance. Getting treated for acute hypoxic hypercarbic respiratory failure on a prednisone taper. Of note, patient stays in a truck with his dog without any air conditioning. She has had multiple admissions in the past due to climate issues. On the day of admission the temperature was very high in patients condenser associated with oxygen machine was not generating a lot of heat so he decreased his use. Patient appeared altered by bystanders was sent to the ER. Patient states that he is compliant with his medications but his living situation is not ideal. Patient reported cough and phlegm at baseline with no fevers or increase in production of productive cough and no increasing recent leg swelling. Patients primary care is Carlee Dalton APRN Patient follows with DR. George Cardiology. Patient follows with Dr. Puente Pulmonology/Wound Care. EMERGENCY DEPARTMENT: Vitals in the ED: Temperature of 101.0, pulse 77, respirations 16, blood pressure 108/56, 98% on nonrebreather mask oxygen at 10 L. Patient was put on BiPAP which he tolerated for only a short time. Patient has a extensive history of not being able to tolerate BiPAP due to choking sensation and increased phlegm production and throat. In addition patient was given IV Lasix 40 mg 1. Blood cultures were taken. Admitted for acute on chronic hypoxic hypercarbic respiratory failure. Elevation in WBC count may have been related to acute event and steroids for AECOPD tapering form last visit/ discharge from ED. Patient given Azithro in the ED. CXR: Prominent central vasculature and bibasilar opacities which may reflect developing edema. Cardiac silhouette reminas enlarged. Initial EKG: Sinus rhythm, rate 75, no ST or T-wave changes. Pertinent labs: White blood cell count: 15.4, no bands Lactic acid 1.5 ProBNP 3490 ABG: PH 7.28, PCO2 62, PO2 99, HCO3 28, ABG O2 saturation measured 95, carboxyhemoglobin 0.8 TELEMETERY ADMISSION Patient was admitted to the telemetry unit for acute on chronic hypoxic hypercarbic respiratory failure presented by his ABGs, elevated white count, lactic acid, and history of tubal admissions of COPD exacerbation and CHF exacerbation. Patient's significant cardiac history with atrial fibrillation, systolic CHF, AICD patient was placed in the telemetry unit for further monitoring. For the following problems. Problem list: 1. Acute on chronic hypoxic hypercarbic respiratory failure 2. Chronic systolic heart failure 3. Atrial fibrillation on Eliquis 4. Cgw-rndnmaw-ybiupktlz diabetes mellitus 5. Lower extremity edema Acute on chronic hypoxic hypercarbic respiratory failure Patient has significant history of COPD on baseline 3 of 4 L oxygen. Patient is normally noncompliant with BiPAP in general as noted on previous admissions. However on this admission, patient had a T-max of 101.1 unclear at first due to infection or visit with prednisone taper. ABG with pH: 7.28, PCO2 62, PO2 99, HCO3 28. Patient initially placed on BiPAP and IV methylprednisone 125 mg in the ER. BiPAP was to be continued in the telemetry unit in a repeat ABG was done. Repeat ABG on 05/09/18 demonstrated a pH of 7.28, PCO2 of 81, PO2 73, HCO3 37, carboxyhemoglobin 1.4. IV methylprednisone 40 mg every 8 was started and gradually tapered over the course of his stay. Pulmonology was consulted. TRC/ nebulizer treatments were continued. Patient was to be started on Unasyn for antibiotic coverage. Chronic systolic heart failure Patient follows Dr. George normally. Last echo in January 2018 demonstrated an ejection fraction of 25-30%. She is normally diuresis on furosemide and follows up with heart failure clinic. Next x-ray is consistent with increased pulmonary prominence. Jacy BNP on admission was 3490 seems to be patient's baseline. No overt signs of failure or crackles on examination on this admission. Single dose of Lasix was given in the ER. Daily weights and ins and outs were monitored consistently. Vital signs on admission. Oral Lasix was continued. Single dose of acetazolamide given his elevated bicarb of 40 on admission. Atrial fibrillation Continue the patient's Eliquis for internal medicine. Diabetes Continue with Accu-Cheks, ISS. All other home medications are continued. SIGNED OUT AMA CODE STATUS: DNI DVT prophylaxis: Eliquis Diet: CHF diet, 2 g salt restriction. Allergies: Coded Allergies: No Known Allergies (01/08/18) Disposition Summary Disposition Principal Diagnosis: Acute on chronic hypoxic hypercarbic respiratory failure Additional Diagnosis: CHF Exacerbation Multifocal Pneumonia Discharge Disposition: home or self care Discharge Instructions General Discharge Information Code Status: Do Not Intubate Patient's Diet: CHF diet; 2gm salt restriction Patient's Activity: As tolerated with home oxygen Follow-Up Instructions/Appts: Please follow up with PCP within 1 week of discharge. Please follow up with Pulmonology within 1 week of discharge. Please follow up with Cardiology within 1 week of discharge. Please complete antibiotic Bactrim every 12 hours for 7 more days. Please continue oral steroids as prescribed. Return to the ED with worsening shortness of breath, chest pain, palpitations. Medications at Discharge Discharge Medications: Stop taking the following medications: Prednisone (Prednisone) 10 MG TABLET ORAL See Instructions Qty = 18 Continue taking these medications: Umeclidinium [place] (Incruse Ellipta) 62.5 MCG/ACTUATION BLST.W.DEV 1 PUFF Inhale through mouth DAILY Qty = 90 Comments: NOT GIVEN IN HOSPITAL Albuterol Sulfate (Proair Hfa) 90 MCG HFA.AER.AD 2 Puff Inhale through mouth EVERY 4-6 HOURS NEEDED as needed for COPD Comments: Last Taken: 05/13/18 Time: 08 Glimepiride (Glimepiride) 1 MG TABLET 1 Tablet ORAL TWICE DAILY Comments: NOT GIVEN IN HOSPITAL INSULIN GIVEN NEEDED PER SCALE Montelukast Sodium (Singulair) 10 MG TABLET 1 Tablet ORAL TWICE DAILY Comments: Last Taken: 05/13/18 Time: 08 Metformin HCl (Glucophage) 1,000 MG TABLET 1 Tablet ORAL TWICE DAILY Comments: NOT GIVEN IN HOSPITAL Ipratropium/Albuterol Sulfate (Combivent Respimat Inhal [place]) 20 MCG-100 MCG/ ACTUATION MIST.INHAL 2 PUFF Inhale through mouth TWICE DAILY Qty = 8 Comments: NOT GIVEN IN HOSPITAL Hydroxyzine Hydrochloride (Atarax) 50 MG TABLET 2 Tablet ORAL TWICE DAILY Qty = 120 Comments: Last Taken: 05/13/18 Time: 0806 Ferrous Sulfate (Ferrous Sulfate) 325 MG (65 MG IRON) TABLET 1 Tablet ORAL DAILY Qty = 30 Comments: NOT TAKEN IN HOSPITAL Fluticasone/Salmeterol (Advair 500-50 Diskus) 500 MCG-50 MCG/DOSE BLST.W.DEV 1 Puff Inhale through mouth TWICE DAILY Qty = 60 Comments: NOT GIVEN WHILE IN HOSPITAL Febuxostat (Uloric) 40 MG TABLET 40 Milligram ORAL DAILY Qty = 30 Comments: NOT GIVEN IN THE HOSPITAL Ammonium Lactate (Ammonium Lactate) 12 % CREAM..G. 12 Percent TOPICAL TWICE DAILY Qty = 1 Instructions: . Comments: Last Taken: 05/13/18 Time: 0810 Gabapentin (Gabapentin) 400 MG CAPSULE 1 Capsule ORAL THREE TIMES DAILY Comments: Last Taken: 05/13/18 Time: 0806 Carvedilol (Coreg) 25 MG TABLET 0.5 Tablet ORAL TWICE DAILY Comments: Last Taken: 05/13/18 Time: 08:06 Acetaminophen (Acetaminophen) 500 MG TABLET 1 Tablet ORAL DAILY as needed for PAIN Qty = 30 Instructions: PLEASE ALTERNATE WITH NAPROXEN FOR PAIN Comments: Last Taken: 05/13/18 Time: 0621 Apixaban (Eliquis) 5 MG TABLET 1 Tablet ORAL TWICE DAILY Qty = 60 Comments: Last Taken: 05/13/18 Time: 0810 Amiodarone (Cordarone) 200 MG TAB 1 Tablet ORAL DAILY Qty = 30 Comments: NOT GIVEN IN HOSPITAL Atorvastatin Calcium (Atorvastatin Calcium) 10 MG TABLET 1 Tablet ORAL DAILY Qty = 30 Comments: Last Taken: 05/13/18 Time: 0806 Guaifenesin (Guaifenesin ER) 600 MG TAB.ER.12H 1 Tablet ORAL TWICE DAILY Qty = 20 Comments: Last Taken: 05/13/18 Time: 0806 Oxymetazoline HCl (Nasal Decongestant) 0.05 % SPRAY 2 [place] In the nose TWICE DAILY as needed for NASAL CONGESTION Qty = 1 Comments: NOT TAKEN IN HOSPITAL Dicyclomine HCl (Dicyclomine HCl) 10 MG CAPSULE 1 Capsule ORAL THREE TIMES DAILY Qty = 9 Comments: Last Taken:05/13/18 Time:0806 Furosemide (Lasix) 40 MG TABLET 40 Milligram ORAL TWICE DAILY Qty = 60 Comments: Last Taken: 05/13/18 Time: 0806 Losartan Potassium (Losartan Potassium) 25 MG TABLET 25 Milligram ORAL DAILY Qty = 30 Instructions: . Comments: Last Taken: 05/13/18 Time: 8:07 Start taking the following new medications: Prednisone (Prednisone) 10 MG TABLET 1 Tablet ORAL SEE INSTRUCTIONS Qty = 30 No Refills Instructions: 5PILLS-2DAYS,4PILLS-2DAYS,3PILLS-2DAYS, 2PILLS-2DAYS,1PILL-2DAYS,THEN STOP. Comments: Last Taken:05/13/18 Time:0806 Sulfamethoxazole/Trimethoprim (Bactrim Ds Tablet) 800 MG-160 MG TABLET 1 Tablet ORAL TWICE DAILY Qty = 13 No Refills Comments: Last Taken:05/13/18 Time:1211 Copies To: Kwame HARPER,Hector Chilel; Carlee Mooney APRN; Doris HARPER,Julia Kim
== END 2018-05-13 13:50 | disposition left against medical advice (07) | DRG 177 ==
LOC: ERH 21:57 → 1NO 05-09 00:43 → ERHI 05-09 00:43 → ENRESERV 05-09 01:06 → 1NO 05-09 02:33 → ENPENDDIS 05-13 12:30 → ENTRNSPT 05-13 13:38 → EDTRNSPTSTS 05-13 13:42 → EDTRNSPT 05-13 13:42 → 1NO 05-13 13:50 → CMPTRNSPT 05-13 14:01
PROVIDERS: Internal Medicine; Physical Medicine & Rehabilitation Pain Medicine; Physician Assistant
PROC: 5A09457 Assistance with Respiratory Ventilation, 24-96 Consecutive Hours, Continuous Positive Airway Pressure (ICD-10-PCS; principal; 2018-05-09)
DX: J15.212 Pneumonia due to Methicillin resistant Staphylococcus aureus (principal); J96.21 Acute and chronic respiratory failure with hypoxia; J96.22 Acute and chronic respiratory failure with hypercapnia; Z68.42 Body mass index [BMI] 45.0-49.9, adult; I50.22 Chronic systolic (congestive) heart failure; I42.9 Cardiomyopathy, unspecified; Z99.81 Dependence on supplemental oxygen; J44.9 Chronic obstructive pulmonary disease, unspecified; E87.70 Fluid overload, unspecified; E66.01 Morbid (severe) obesity due to excess calories; Z59.0 Homelessness; I87.2 Venous insufficiency (chronic) (peripheral); Z95.810 Presence of automatic (implantable) cardiac defibrillator; I25.2 Old myocardial infarction; E11.9 Type 2 diabetes mellitus without complications; Z79.84 Long term (current) use of oral hypoglycemic drugs; E78.5 Hyperlipidemia, unspecified; M06.9 Rheumatoid arthritis, unspecified; N40.0 Benign prostatic hyperplasia without lower urinary tract symptoms; D64.9 Anemia, unspecified; Z90.79 Acquired absence of other genital organ(s); I11.0 Hypertensive heart disease with heart failure; I48.91 Unspecified atrial fibrillation; Z79.01 Long term (current) use of anticoagulants; Z66 Do not resuscitate; M10.9 Gout, unspecified; G47.33 Obstructive sleep apnea (adult) (pediatric); Z91.19 Patient's noncompliance with other medical treatment and regimen; Z79.52 Long term (current) use of systemic steroids; Z53.21 Procedure and treatment not carried out due to patient leaving prior to being seen by health care provider; B96.1 Klebsiella pneumoniae [K. pneumoniae] as the cause of diseases classified elsewhere; Z59.9 Problem related to housing and economic circumstances, unspecified
CPT/HCPCS: 1NP; 36415; 36592; 71045; 71046; 82436; 87040; 87070; 93005; 93010; 99232; 99233; J0131; J0456; J0696; J1940; J2405; J2920; J2930; J3370; J3490; J3535; J7040

== ENCOUNTER 2018-06-11 12:06 | Inpatient (IN) | payer OTHER, MEDICARE ==
[~2018-06-11] VITALS: Ht 182.9 cm; Wt 172.4 kg
[~2018-06-11 12:06] MED LIST changes: +BACTRIM DS TAB1 EACH PO
--- NOTE | 2018-06-11 12:30 | ED DYSPNEA/ASTHMA COMPLAINT ---
History of Present Illness General Chief Complaint: General Adult Stated Complaint: GEN WEAKNESS,LOSS OF HEARING Source: patient, old records Exam Limitations: no limitations Vital Signs & Intake/Output Vital Signs & Intake/Output Vital Signs Date Time Temp Pulse Resp B/P B/P Pulse O2 O2 Flow FiO2 Mean Ox Delivery Rate 06/11 1348 75 95 06/11 1321 90/56 06/11 1314 95 Nasal 3.0L Cannula 06/11 1226 83 86/46 06/11 1220 88 26 84/42 78 Room Air Allergies Coded Allergies: No Known Allergies (01/08/18) Reconcile Medications Acetaminophen 500 MG TABLET 1 TAB PO DAILY PRN PAIN PLEASE ALTERNATE WITH NAPROXEN FOR PAIN Albuterol Sulfate (Proair Hfa) 90 MCG HFA.AER.AD 2 PUF INH Q4-6 PRN PRN COPD (Reported) Amiodarone (Cordarone) 200 MG TAB 1 TAB PO DAILY HEART RATE Ammonium Lactate 12 % CREAM..G. 12 % TP BID foot fissures . Apixaban (Eliquis) 5 MG TABLET 1 TAB PO BID AFIB Atorvastatin Calcium 10 MG TABLET 1 TAB PO DAILY CHOLESTEROL Carvedilol (Coreg) 25 MG TABLET 0.5 TAB PO BID HIGH BLOOD PRESSURE (Reported) Dicyclomine HCl 10 MG CAPSULE 1 CAP PO TID ABDOMINAL PAIN Febuxostat (Uloric) 40 MG TABLET 40 MG PO DAILY Gout Ferrous Sulfate 325 MG (65 MG IRON) TABLET 1 TAB PO DAILY anemia Fluticasone/Salmeterol (Advair 500-50 Diskus) 500 MCG-50 MCG/DOSE BLST.W.DEV 1 PUF INH BID COPD (Reported) Furosemide (Lasix) 40 MG TABLET 40 MG PO BID Fluid Overload Gabapentin 400 MG CAPSULE 1 CAP PO TID NEUROPATHY (Reported) Glimepiride 1 MG TABLET 1 TAB PO BID DM (Reported) Guaifenesin (Guaifenesin ER) 600 MG TAB.ER.12H 1 TAB PO BID CONGSETION Hydroxyzine Hydrochloride (Atarax) 50 MG TABLET 2 TAB PO BID MUCUS (Reported) Ipratropium/Albuterol Sulfate (Combivent Respimat Inhal [place]) 20 MCG-100 MCG/ ACTUATION MIST.INHAL 2 PUFF INH BID copd (Reported) Losartan Potassium 25 MG TABLET 25 MG PO DAILY heart health . Metformin HCl (Glucophage) 1,000 MG TABLET 1 TAB PO BID DM (Reported) Montelukast Sodium (Singulair) 10 MG TABLET 1 TAB PO BID copd (Reported) Oxymetazoline HCl (Nasal Decongestant) 0.05 % SPRAY 2 SPRAY JOAQUIN BID PRN NASAL CONGESTION Prednisone 10 MG TABLET 1 TAB PO SEE ADMIN CRITERIA COPD 5PILLS-2DAYS,4PILLS-2DAYS,3PILLS-2DAYS, 2PILLS-2DAYS,1PILL-2DAYS,THEN STOP. Sulfamethoxazole/Trimethoprim (Bactrim Ds Tablet) 800 MG-160 MG TABLET 1 TAB PO BID MRSA PNEUMONIA Umeclidinium [place] (Incruse Ellipta) 62.5 MCG/ACTUATION BLST.W.DEV 1 PUFF INH DAILY COPD (Reported) Triage Note: 63M WELL KNOWN TO ED RETURNS FOR SOB AND LETHARGY/WEAKNESS AND IS HYPOTENSIVE IN TRIAGE AND O2 SAT 78-79% PT IS NOT USING HIS BASELINE [place] Triage Nurses Notes Reviewed? yes HPI: Patient comes in with increasing shortness of breath, dyspnea on exertion and somnolence. Patient is supposed to be on home O2 however he does not like to bring it out with him. Patient states he has a chronic productive cough but it is not changed. He has been seen by his primary care physician yesterday and yet his symptoms are worsening. Positive anorexia but no nausea or vomiting. No fevers or chills. No orthopnea. No chest pain. Past History Travel History Traveled to [place] past 21 day No Medical History Any Pertinent Medical History? 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 Hx Contributory? No Review of Systems Review of Systems Constitutional: Reports: see HPI, weakness. EENTM: Reports: no symptoms. Respiratory: Reports: see HPI, cough, short of breath, wheezing. Cardiovascular: Reports: no symptoms. GI: Reports: no symptoms. Genitourinary: Reports: no symptoms. Musculoskeletal: Reports: no symptoms. Skin: Reports: no symptoms. Neurological/Psychological: Reports: no symptoms. Hematologic/Endocrine: Reports: no symptoms. Immunologic/Allergic: Reports: no symptoms. All Other Systems: Reviewed and Negative Physical Exam Physical Exam General Appearance: well developed/nourished, alert, awake, lethargic, moderate distress Head: atraumatic, normal appearance Eyes: Bilateral: PERRL, EOMI. Ears, Nose, Throat: normal pharynx, normal ENT inspection, hearing grossly normal Neck: normal inspection, supple, full range of motion Respiratory: decreased breath sounds, respiratory distress Cardiovascular: regular rate/rhythm, normal peripheral pulses Gastrointestinal: normal bowel sounds, soft, non-tender, no organomegaly Extremities: normal inspection, normal capillary refill, normal range of motion, pedal edema Neurologic/Psych: no motor/sensory deficits, awake, alert, oriented x 3, normal mood/affect Skin: intact, normal color, warm/dry Lymphatic: no anterior cervical rafi Core Measures ACS in differential dx? No CVA/TIA Diagnosis No Sepsis Present: No Sepsis Focused Exam Completed? No Progress Differential Diagnosis: asthma, AMI, bronchitis, CHF, COPD, pneumonia, pneumothorax Plan of Care: Orders Procedure Date/time Status Heart Healthy Diet 06/11 D Active TROPONIN LEVEL 06/11 1830 Active EKG 06/11 1830 Active LACTIC ACID 06/11 1513 Active Pathway - chart 06/11 1433 Active House Staff 06/11 1433 Active Patient Data 06/11 1355 Active ED Holding Orders 06/11 1339 Active Admit to inpatient 06/11 1339 Active Vital Signs 06/11 1339 Active Code Status 06/11 1339 Active Intake & Output 06/11 1237 Active BLOOD CULTURE 06/11 1235 Active ARTERIAL BLOOD GAS (GEN) 06/11 1230 Complete URINALYSIS 06/11 1213 Active TROPONIN LEVEL 06/11 1213 Complete LACTIC ACID 06/11 1213 Complete COMPREHENSIVE METABOLIC PANEL 06/11 1213 Complete CBC WITHOUT DIFFERENTIAL 06/11 1213 Complete B-TYPE NATRIURETIC PEP (BNP) 06/11 1213 Complete EKG 06/11 1213 Active BIPAP 06/11 UNK Complete VTE Mechanical Prophylaxis 06/11 UNK Active Current Medications Sig/Keaton Start time Last Medication Dose Stop Time Status Admin Acetaminophen 1,000 MG Q6P PRN 06/11 1445 UNVr (Ofirmev) Azithromycin 500 MG ONCE ONE 06/11 1400 AC (Zithromax) 06/11 1459 Sodium Chloride 250 ML (Normal Saline 0.9%) Laboratory Tests 06/11/18 1250: pH 7.29 *L, pCO2 70 *H, pO2 87, HCO3 33 H, ABG O2 Sat (Measured) 96.0, Carboxyhemoglobin 1.2 L, O2 Concentration % 3L, O2 Delivery Method NC, Phlebotomy Draw Site RIGHT RADIAL 06/11/18 1230: Anion Gap 8, Estimated GFR 23 L, BUN/Creatinine Ratio 10.4, Glucose 87, Lactic Acid 1.3, Calcium 9.0, Total Bilirubin 0.8, AST 15 L, ALT 20 L, Alkaline Phosphatase 65, Troponin I 0.03, Vge-V-Sjjgkqlibxz Pept 5180 H, Total Protein 6.1 L, Albumin 3.1 L, Globulin 3.0, Albumin/Globulin Ratio 1.0 L, CBC w Diff NO MAN DIFF REQ, RBC 3.77 L, MCV 85.4, MCH 27.2, MCHC 31.8 L, RDW 15.9 H, MPV 6.5 L, Gran % 74.1, Lymphocytes % 18.7 L, Monocytes % 6.7, Eosinophils % 0.4, Basophils % 0.1, Absolute Granulocytes 8.6 H, Absolute Lymphocytes 2.2, Absolute Monocytes 0.8 H, Absolute Eosinophils 0, Absolute Basophils 0 Microbiology 06/11 1250 BLOOD: Blood Culture - RECD 06/11 1230 BLOOD: Blood Culture - RECD Diagnostic Imaging: Viewed by Me: Radiology Read. Discussed w/RAD: Radiology Read. Initial ED EKG: NSR, nonspecific ST T wave chg, LAFB Prior EKG: unchanged Departure Departure Disposition: STILL A PATIENT Condition: Guarded Clinical Impression Primary Impression: Hypercapnic respiratory failure Referrals: Carlee Mooney APRN (PCP/Family) Departure Forms: Customer Survey General Discharge Information Admission Note Spoke With: Kinsey Marte MD Documentation of Exam: Documentation of any treatments & extenuating circumstances including Concerns Regarding Discharge (functional status, medication knowledge or non-compliance, living conditions, etc.) that warrant an admission rather than observation: [ BiPAP, pulmonary consultation, IV steroids, IV antibiotics, nebulizers] Critical Care Note Critical Care Note Critical Care Time: non-applicable
[2018-06-11 12:46] LABS: ABSOLUTE BASOPHIL COUNT 0 /CUMM (0.0-0.2); ABSOLUTE EOSINOPHIL COUNT 0 /CUMM (0.0-0.7); ABSOLUTE GRANULOCYTE CT 8.6 /CUMM (1.4-6.5); ABSOLUTE LYMPH COUNT 2.2 /CUMM (1.2-3.4); ABSOLUTE MONOCYTE COUNT 0.8 /CUMM (0.10-0.60); BASOPHIL % 0.1 % (0.0-2.0); EOSINOPHIL % 0.4 % (0-5); GRANULOCYTE % 74.1 % (42.2-75.2); HEMATOCRIT 32.2 % (42-52); MEAN CORPUSCULAR HGB 27.2 PG (27.0-31.0); MEAN CORPUSCULAR HGB CONC 31.8 G/DL (33.0-37.0); MEAN CORPUSCULAR VOLUME 85.4 FL (80.0-94.0); MEAN PLATELET VOLUME 6.5 FL (7.4-10.4); PLATELET COUNT 218 /CUMM (130-400); RBC DISTRIBUTION WIDTH 15.9 % (11.5-14.5); RED BLOOD CELL CT 3.77 /CUMM (4.70-6.10); WHITE BLOOD CELL COUNT 11.6 /CUMM (4.8-10.8)
--- NOTE | 2018-06-11 14:01 | History & Physical ---
MaryBhavin 06/11/18 1400: General Information and HPI MD Statement: I have seen and personally examined SUZETTE GRIGSBY SR and documented this H&P. The patient is a 63 year old M who presented with a patient stated chief complaint of [shortness of breath]. Source of Information: patient History of Present Illness: 63-year-old male living in truck with past medical history COPD(3.1 liters long- term oxygen, but he is using oxygen condenser at his truck instead of oxygen cylinder), obstructive sleep apnea, chronic venous insufficiency, BPH, cardiomyopathy(status post AICD placement), [id number] diabetes mellitus on metformin, hyperlipidemia presented emergency department with a complaint of shortness of breath, and right hand and arm swelling. According to the patient he was at his baseline 1 day ago when he started having shortness of breath this morning, tiredness, when he was sleeping in his truck, which was associated with cough. He also having right forearm and hand swelling, there is some scratch diaz which he relates with his dog claws injury, but he said right arm swelling started before dog scratch abrasions. Review of system is positive for bilateral pedal edema and swelling, and right arm pitting edema and swelling. He denies chest pain, palpitation, hemoptysis, sick contact, fever, chills, diarrhea, constipation, burning micturition. At the time of presentation to the emergency department his leg was significant for WBC: 11.6, hemoglobin: 10.2, hematocrit: 32.2, creatinine: 2.8, GFR: 23, bun :creatinine= 10.4, proBNP: 5180, PH: 7.29, PCO2: 70, PO2: 87, HCO3: 33, SaO2: 95% on 3 L oxygen On examination: GURPREET: Bilateral pitting edema Chest: Bilateral expiratory wheeze, scattered rhonchi CVS: S1 + S2 Problems list: *Acute on chronic hypercapnic respiratory failure *COPD exacerbation *Acute kidney injury *Right forearm and hand swelling *Chronic venous insufficiency Allergies/Medications Allergies: Coded Allergies: No Known Allergies (01/08/18) Home Med list Acetaminophen 500 MG TABLET 1 TAB PO DAILY PRN PAIN PLEASE ALTERNATE WITH NAPROXEN FOR PAIN Albuterol Sulfate (Proair Hfa) 90 MCG HFA.AER.AD 2 PUF INH Q4-6 PRN PRN COPD (Reported) Amiodarone (Cordarone) 200 MG TAB 1 TAB PO DAILY HEART RATE Ammonium Lactate 12 % CREAM..G. 12 % TP BID foot fissures . Apixaban (Eliquis) 5 MG TABLET 1 TAB PO BID AFIB Atorvastatin Calcium 10 MG TABLET 1 TAB PO DAILY CHOLESTEROL Carvedilol (Coreg) 25 MG TABLET 0.5 TAB PO BID HIGH BLOOD PRESSURE (Reported) Dicyclomine HCl 10 MG CAPSULE 1 CAP PO TID ABDOMINAL PAIN Febuxostat (Uloric) 40 MG TABLET 40 MG PO DAILY Gout Ferrous Sulfate 325 MG (65 MG IRON) TABLET 1 TAB PO DAILY anemia Fluticasone/Salmeterol (Advair 500-50 Diskus) 500 MCG-50 MCG/DOSE BLST.W.DEV 1 PUF INH BID COPD (Reported) Furosemide (Lasix) 40 MG TABLET 40 MG PO BID Fluid Overload Gabapentin 400 MG CAPSULE 1 CAP PO TID NEUROPATHY (Reported) Glimepiride 1 MG TABLET 1 TAB PO BID DM (Reported) Guaifenesin (Guaifenesin ER) 600 MG TAB.ER.12H 1 TAB PO BID CONGSETION Hydroxyzine Hydrochloride (Atarax) 50 MG TABLET 2 TAB PO BID MUCUS (Reported) Ipratropium/Albuterol Sulfate (Combivent Respimat Inhal [place]) 20 MCG-100 MCG/ ACTUATION MIST.INHAL 2 PUFF INH BID copd (Reported) Losartan Potassium 25 MG TABLET 25 MG PO DAILY heart health . Metformin HCl (Glucophage) 1,000 MG TABLET 1 TAB PO BID DM (Reported) Montelukast Sodium (Singulair) 10 MG TABLET 1 TAB PO BID copd (Reported) Oxymetazoline HCl (Nasal Decongestant) 0.05 % SPRAY 2 SPRAY JOAQUIN BID PRN NASAL CONGESTION Prednisone 10 MG TABLET 1 TAB PO SEE ADMIN CRITERIA COPD 5PILLS-2DAYS,4PILLS-2DAYS,3PILLS-2DAYS, 2PILLS-2DAYS,1PILL-2DAYS,THEN STOP. Sulfamethoxazole/Trimethoprim (Bactrim Ds Tablet) 800 MG-160 MG TABLET 1 TAB PO BID MRSA PNEUMONIA Umeclidinium [place] (Incruse Ellipta) 62.5 MCG/ACTUATION BLST.W.DEV 1 PUFF INH DAILY COPD (Reported) Past History Travel History Traveled to [place] past 21 day No Medical History Neurological: NONE EENT: NONE Cardiovascular: AFIB, CAD, cardiomyopathy, CHF, chronic venous insuff, hyperlipidemia, CARDIAC ARREST S/P LWC PACER with DEFIB Respiratory: COPD, SLEEP APNEA O2 3.5L NC @ BASELINE Gastrointestinal: constipation, peptic ulcer disease, EGD 08/10 showed numerous gastric and duodenal ulcers Hepatic: NONE Renal: benign prost hyperplasia Musculoskeletal: gout, rheumatoid arthritis Psychiatric: NONE Endocrine: diabetes Blood Disorders: anemia Cancer(s): 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 Psychosocial History Who Do You Live With? self Services at Home: Oxygen Primary Language: Stateless ETOH Use: occasional use Illicit Drug Use: denies illicit drug use Functional Ability ADLs Independent: dressing, eating, toileting, bathing. Ambulation: independent IADLs Independent: shopping, housework, finances, food prep, telephone, transportation , medication admin. Review of Systems Review of Systems Constitutional: Reports: see HPI. Respiratory: Reports: see HPI. Exam & Diagnostic Data Last 24 Hrs of Vital Signs/I&O Vital Signs Date Time Temp Pulse Resp B/P B/P Pulse O2 O2 Flow FiO2 Mean Ox Delivery Rate 06/11 1739 98.7 76 20 126/82 94 06/11 1724 Nasal 3.5L Cannula 06/11 1612 98.7 68 20 130/80 92 Nasal 3.0L Cannula 06/11 1445 75 22 72/42 95 BIPAP 45% 06/11 1348 75 95 06/11 1321 90/56 06/11 1314 95 Nasal 3.0L Cannula 06/11 1226 83 86/46 06/11 1220 88 26 84/42 78 Room Air Intake & Output 06/11 1600 06/11 0800 06/11 0000 Intake Total 0 Output Total Balance 0 Intake, Oral 0 Patient 380 lb Weight Physical Exam Lungs Bilateral wheeze, bilateral ronchi Extremities bilaterla lower extremity pitting edema, right hand and forearm edema Vascular Normal Pulses Assessment/Plan Assessment: 63-year-old male living in truck with past medical history COPD(3.1 long-term oxygen, but he is using oxygen condenser at his truck instead of oxygen cylinder ), obstructive sleep apnea, chronic venous insufficiency, BPH, cardiomyopathy( status post AICD placement), [id number] diabetes mellitus on metformin, hyperlipidemia presented emergency department with a complaint of shortness of breath, and right hand and arm swelling Problems list: *Acute on chronic hypercapnic respiratory failure *COPD exacerbation *CHF *Acute kidney injury Plan: *Acute on chronic hypercapnic respiratory failure/COPD exacerbation: Patient past medical history of COPD, derange arterial blood gases, decreased oxygen saturation and increase blood PCO2 level is consistent with acute on chronic respiratory failure. There is respiratory acidosis was compensated by the kidney. The trigger factor for respiratory failure made with an appropriate long-term oxygen therapy. As the patient said he is using oxygen condenser instead of oxygen cylinder. His chest is wheezing and having global rhonchi. We will start him on IV steroids, oxygen nebulization, TRC, albuterol nebulization. Antibiotic will start because he having leukocytosis. *Acute kidney injury: Acute kidney injury seem to be due to dehydration. We will start IV fluid and will monitor renal function test after hydration. * Admit to general medicine * Pulmonary consult *IV steroid Solumedrol 40mg q8h *Nebulization *BiPAP as needed *IV Lasix 40mg IV state * Recheck BEP tonight and tomorrow morning * Sputum culture/Gram stain *IV antibiotic * DVT PPx As Ranked By This Provider Problem List: 1. COPD (chronic obstructive pulmonary disease) 2. History of CHF (congestive heart failure) 3. Hypercapnic respiratory failure 4. Cardiomyopathy 5. Acute renal failure Core Measures/Misc (07/12) Acute Coronary Syndrome ACS Diagnosis: No Congestive Heart Failure Congestive Heart Failure Diagnosis No Cerebrovascular Accident CVA/TIA Diagnosis: No VTE (View Protocol) VTE Risk Factors Age>40 No Mechanical VTE Prophylaxis d/t Other No VTE Pharm Prophylaxis d/t Other Sepsis (View protocol) Sepsis Present: No If YES complete Sepsis Event Note If YES complete Sepsis Event Note Kinsey Marte MD 06/11/18 1545: Core Measures/Misc (07/12) Sepsis (View protocol) If YES complete Sepsis Event Note If YES complete Sepsis Event Note Attending MD Review Statement Attending Statement Attending MD Statement: examined this patient, discuss w/resident/PA/MARINE REPORTER, agreed w/resident/PA/MARINE REPORTER, reviewed EMR data (avail) Attending Assessment/Plan: 63M PMH CHF, chronic venous insufficiency, COPD (on baseline 3-4 L O2), A. fib on eliquis, sleep apnea, cardiomyopathy (status post AICD placement), NIDDM on metformin, HLD presenting with somnolence, dyspnea, found to be hypercapnic on ABG. Patient has recurrent admissions for similar, poorly compliant with medications, CPAP, and oxygen. He is sleepy and cannot give proper history, but has no complaints. Found to have pCO2 70, creatinine increased to 2.8. He appears clinically fluid overloaded with LE edema and mild crackles. CXR shows mild pulmonary edema. BNP 5100. 1. Acute on chronic hypercapnic respiratory failure 2. COPD Exacerbation 3. LISETTE Plan - Admit to general medicine - Solumedrol 40mg q8h - Nebulizer treatments round the clock - BiPAP PRN - Pulmonary consult - Would give Lasix 40mg IV once - Recheck BEP tonight and tomorrow morning - Start Azithromycin - Sputum culture - Continue home medications - DVT PPx Ramy HARPER,Romero 06/11/18 1745: Core Measures/Misc (07/12) Sepsis (View protocol) If YES complete Sepsis Event Note If YES complete Sepsis Event Note Resident Review Statement Resident Statement: examined this patient, discussed with management intern, agreed with management intern Other Findings: Patient is 63-year-old morbidly obese male with past medical history of cardiomyopathy status post AICD placement, [id number] diabetes mellitus on metformin, hyperlipidemia, prior [place] presents with 1 day onset of dsypnea. No fever, chills, sick contacts or recent URI. Denies chest pain, palpitation, worsening orthopnea, or increased lower extremity swelling. He does complain of pain with sputum production however this is reported by him is chronic. Impression * Dyspnea. Possible etiologies include infection from PNA versus COPD exacerbation versus cardiac etiology such as CHF or ACS. Pneumonia is unlikely given that the patient is afebrile, and no radiographic findings suggestive of pneumonia. His leukocytosis is most likely secondary to prednisone use rather than infection. Acute coronary syndrome is always a possibility in this patient given his extensive cardiac history, however given the negative initial troponin and EKG unremarkable for any acute ischemic changes in addition to his clinical presentation which is without chest pain, ACS is less likely. He does not show any clinical signs to suggest acute CHF decompensation as he is not presenting with JVD, and is respiratory examination is more remarkable for wheezing and rhonchi rather than crackles. His proBNP is elevated however he does have a history of high proBNP and given the context of CKD it is expected to be elevated. * Acute on chronic hypercarbic respiratory failure as evident by desaturation below 88% and an ABG remarkable for a PCO2 of 70 and a pH of 7.29. * COPD exacerbation * LISETTE given that the patient's presenting with a creatinine of 2.8 recently his baseline seem to be, averaging about 1.4. Possible etiologies include dehydration, possibly from Lasix and decrease fluid intake. * History of chronic diseases: cardiomyopathy status post AICD placement, non- insulin-dependent diabetes mellitus on metformin, hyperlipidemia, prior [place] Plan Admit to general medicine floor Continue BiPAP for now and transition to nasal cannula once patient respiratory status is stabilized Solu-Medrol 40 mg every 12 Azithromycin 500 mg IV once and then 250mg TRC nebs Pulmonology consult tomorrow morning Trend troponin 2 with EKG Given the hypotensive episode in the ED, will hold Lasix and losartan for now. However low threshold to restart Lasix given his EF of 25-30% and the fact that he received a 500 bolus of the ED Patient has a history of being prescribed opiates for his chronic pain, will be very judicious in using these medications in the context of hypercarbic respiratory failure Continue all other chronic meds DVT prophylaxis; addressed by Eliquis CODE STATUS: full
--- NOTE | 2018-06-11 14:12 | RADIOLOGY REPORT ---
EXAMINATION: XR CHEST CLINICAL INFORMATION: Weakness and shortness of breath. COMPARISON: 06/01/2018. TECHNIQUE: 2 views of the chest were obtained. FINDINGS: Exam limited by technique and body habitus. Left subclavian triple lead pacer with leads in the right atrium, right ventricle, and right coronary sinus. The cardiac silhouette is enlarged. There is mild central vascular congestion without overt edema. No consolidation or effusion. IMPRESSION: Limited evaluation. Mild pulmonary edema. No overt pneumonia.
[2018-06-11 17:39] VITALS: BP 126/82
[2018-06-11 22:38] VITALS: BP 140/80
[2018-06-12 05:54] VITALS: BP 136/72
--- NOTE | 2018-06-12 07:00 | PN- Housestaff ---
Subjective Follow-up For: COPD exacerbation, acute and chronic respiratory failure, right forearm and hand swelling and pain Subjective: Patient seen and examined at bedside. He was complaining of disturbed sleep. He was still short of breath, but shortness of breath improved compared to yesterday. There was no over night event. He denies chest pain, palpitation, fever, chills, abdominal pain, diarrhea, constipation, burning micturition, sick contact. Review of Systems Constitutional: Reports: see HPI. Objective Last 24 Hrs of Vital Signs/I&O Vital Signs Date Time Temp Pulse Resp B/P B/P Pulse O2 O2 Flow FiO2 Mean Ox Delivery Rate 06/12 0554 99.0 80 20 136/72 95 Nasal 2.5L Cannula 06/12 0000 91 Nasal 3.5L Cannula 06/11 2238 97.8 74 24 140/80 91 Nasal 3.5L Cannula 06/11 2125 76 124/82 06/11 2019 93 Nasal 3.5L Cannula 06/11 1949 Nasal 3.5L Cannula 06/11 1739 98.7 76 20 126/82 94 06/11 1724 Nasal 3.5L Cannula 06/11 1612 98.7 68 20 130/80 92 Nasal 3.0L Cannula 06/11 1445 75 22 72/42 95 BIPAP 45% 06/11 1348 75 95 06/11 1321 90/56 06/11 1314 95 Nasal 3.0L Cannula 06/11 1226 83 86/46 06/11 1220 88 26 84/42 78 Room Air Intake & Output 06/12 0800 06/12 0000 06/11 1600 Intake Total 900 0 Output Total Balance 900 0 Intake, IV 300 Intake, Oral 600 0 Patient 380 lb 380 lb Weight Physical Exam General Appearance: Alert, Oriented X3, Cooperative, No Acute Distress Assessment/Plan Assessment: 63-year-old male living in truck with past medical history COPD(3.1 long-term oxygen, but he is using oxygen condenser at his truck instead of oxygen cylinder ), obstructive sleep apnea, chronic venous insufficiency, BPH, cardiomyopathy( status post AICD placement), [id number]-saidswbqu diabetes mellitus on metformin, hyperlipidemia presented emergency department with a complaint of shortness of breath, and right hand and arm swelling Problems list: *Acute on chronic hypercapnic respiratory failure *COPD exacerbation *CHF *Acute kidney injury Plan: *Acute on chronic hypercapnic respiratory failure/COPD exacerbation: Patient past medical history of COPD, derange arterial blood gases, decreased oxygen saturation and increase blood PCO2 level is consistent with acute on chronic respiratory failure. There is respiratory acidosis was compensated by the kidney. The trigger factor for respiratory failure made with an appropriate long-term oxygen therapy. As the patient said he is using oxygen condenser instead of oxygen cylinder. His chest is wheezing and having global rhonchi. We will start him on IV steroids, oxygen nebulization, TRC, albuterol nebulization. Antibiotic will start because he having leukocytosis. *Acute kidney injury: Acute kidney injury seem to be due to dehydration. He is on IV fluid dextrose normal saline. * Pulmonary consult in am *IV steroid Solumedrol 40mg q8h *Nebulization *BiPAP as needed * Recheck BEP tonight and tomorrow morning * Sputum culture/Gram stain *IV antibiotic * DVT PPx Problem List: 1. COPD (chronic obstructive pulmonary disease) 2. Type 2 diabetes mellitus 3. Hyperlipidemia 4. Hypertension 5. CHF (congestive heart failure) 6. Cardiomyopathy Pain Ratin Pain Location: no pain. Pain Goal: Remain pain free Pain Plan: no pain Tomorrow's Labs & Rationales: cbc
--- NOTE | 2018-06-12 10:46 | Event Note ---
Event Note Event Note: Situation: I was notified by the nurse that the patient has pain. Background: 63-year-old male living in truck with past medical history COPD(3.1 long-term oxygen, but he is using oxygen condenser at his truck instead of oxygen cylinder ), obstructive sleep apnea, chronic venous insufficiency, BPH, cardiomyopathy( status post AICD placement), [id number]-rhocwpnao diabetes mellitus on metformin, hyperlipidemia presented emergency department with a complaint of shortness of breath, and right hand and arm swelling Assessment: The patient had right upper extremity swelling, shortness of breath. He also had abdominal pain. He had no tenderness in his abdomen, when he was bathroom he had fresh blood plus dark stool. He has had a history of 4 ulcers in the duodenal bulb in 2016. He is already on apixaban. And received IV methylprednisolone. Recommendations: Doppler sign off upper extremity did not show any DVT. GI was consulted. Started pantoprazole IV loading dose and then IV infusion, H&H every 4 hours, keep the patient n.p.o., to large bore IV lines, type and crossmatch the patient , measure strict inputs and outputs. Dr. Anna is probably going to scope the patient today. Discussed the patient with my senior resident, attending, and ICU attending. Patient transferred to ICU. Patient was reassessed by the resident, patient had 5 large bloody bowel movements, was sittng in chair. BP went to 80s/50s. Patient was discussed with Dr. Marte and Dr. Lopez. Per nursing they were unable to obtain blood and additional IV access on the floor. STAT CBC, Coag, Type and Cross ordered Patient was consented for transfusions FFP and pRBC ordered Discussed with pharmacy - we do not have reversal agent, andexxa in the hospital. We have K-Centra- will give patient. Due to patient's HF with EF of 25%, IV fluids were not bolused
--- NOTE | 2018-06-12 11:02 | ULTRASOUND REPORT ---
EXAMINATION: US TRIPLEX UPPER EXTREMITY, RIGHT CLINICAL INFORMATION: Right arm swelling. COMPARISON: None TECHNIQUE: Color-flow triplex imaging with spectral analysis and compression Doppler were performed on the upper extremity. The examination is limited secondary to patient body habitus. FINDINGS: Respiratory variation, normal compression and augmented flow are noted throughout the upper extremity. The visualized jugular vein, subclavian vein, axillary vein, brachial vein, basilic vein and cephalic vein show no evidence of deep venous thrombosis. IMPRESSION: Limited evaluation secondary to patient body habitus. No evidence for deep vein thrombosis of the right upper extremity is demonstrated.
[2018-06-12 11:32] VITALS: BP 90/60
[2018-06-12 11:35] VITALS: BP 90/60
[2018-06-12 12:24] VITALS: BP 84/50
--- NOTE | 2018-06-12 13:08 | Event Note ---
Event Note Event Note: S; patient transferred from general medicine floor in setting of melna B: patient is 63-year-old gentleman with past medical history COPD on 3 L of nasal oxygen using oxygen condenser at present, obstructive sleep apnea BPH, chronic venous insufficiency, cardiomyopathy status post AICD placement, non- insulin-dependent diabetes mellitus on metformin, hypertension lipidemia. Presented to ED for complaint of shortness of breath and right hand and arm swelling. He is was currently being treated her general medicine floor for acute COPD exacerbation and he can He has history of for ulcers in duodenal bulb in 2016. A/p Patient had 4 episodes of melna since morning. labs were not drawn because patient is a difficult stick. Talked to dr. Lopez o -N.p.o. -Every 4 H&H -Type and cross -CBCs -ICU -Coags -We will transfuse 4 units of fresh frozen plasma -2 units blood -K Centera *GI consult If we are unable to place a peripheral line will proceed with placement of femoral central line
[2018-06-12 13:53] LABS: ABSOLUTE BASOPHIL COUNT 0 /CUMM (0.0-0.2); ABSOLUTE EOSINOPHIL COUNT 0 /CUMM (0.0-0.7); EOSINOPHIL % 0 % (0-5)
[2018-06-12 14:15] LABS: ABSOLUTE GRANULOCYTE CT 10.2 /CUMM (1.4-6.5); ABSOLUTE LYMPH COUNT 1.6 /CUMM (1.2-3.4); ABSOLUTE MONOCYTE COUNT 0.7 /CUMM (0.10-0.60); BASOPHIL % 0.2 % (0.0-2.0); GRANULOCYTE % 81.5 % (42.2-75.2); MEAN CORPUSCULAR HGB 27.2 PG (27.0-31.0); MEAN CORPUSCULAR HGB CONC 32.7 G/DL (33.0-37.0); MEAN CORPUSCULAR VOLUME 83.3 FL (80.0-94.0); MEAN PLATELET VOLUME 6.8 FL (7.4-10.4); PLATELET COUNT 263 /CUMM (130-400); RBC DISTRIBUTION WIDTH 15.7 % (11.5-14.5); WHITE BLOOD CELL COUNT 12.6 /CUMM (4.8-10.8)
[2018-06-12 14:18] LABS: PT 18.7 SEC (9.4-12.5); PTT 28 SEC (25-37)
[2018-06-12 14:23] LABS: HEMATOCRIT 21.6 % (42-52); RED BLOOD CELL CT 2.59 /CUMM (4.70-6.10)
--- NOTE | 2018-06-12 14:51 | Cons- CRCU ---
Reinier HARPER,[facility] 06/12/18 1451: General Information and HPI Consulting Request Date of Consult: 06/12/18 Requested By: George Carlos Reason for Consult: Lower GI bleed Source of Information: patient Exam Limitations: no limitations History of Present Illness: The patient is 63-year-old gentleman with past medical history COPD on 3 L of nasal oxygen using oxygen condenser at present, obstructive sleep apnea BPH, chronic venous insufficiency, cardiomyopathy status post AICD placement, non- insulin-dependent diabetes mellitus on metformin, hypertension lipidemia. Presented to ED for complaint of shortness of breath and right hand and arm swelling. He is was currently being treated her general medicine floor for acute on chronic hypercapnic respiratory failure secondary to COPD exacerbation and LISETTE presenting creatinine of 2.8 his baseline being around 1.4 lately. The patient was transferred to ICU from general medicine floor today in the afternoon after patient had 3 melenic bowel movements and borderline blood pressure of 80/40 On my evaluation patient was alert and oriented 3. He reports that he was feeling fine until this morning when he had first bowel movement which was hard and nonbloody. Which was subsequently followed by 3 soft melenic bowel movements. Patient did not have blood drawn today because he is a difficult stick. A set of vitals were obtained as when patient was transferred to ICU his blood pressure was borderline 90/40. Blood was drawn for labs. EKG was ordered Of note patient has been evaluated twice by GI in the past for melena one in 2015 and second time in April 2017. He has history of peptic ulcer disease. Allergies/Medications Allergies: Coded Allergies: No Known Allergies (01/08/18) Home Med List: Acetaminophen 500 MG TABLET 1 TAB PO DAILY PRN PAIN PLEASE ALTERNATE WITH NAPROXEN FOR PAIN Albuterol Sulfate (Proair Hfa) 90 MCG HFA.AER.AD 2 PUF INH Q4-6 PRN PRN COPD (Reported) Amiodarone (Cordarone) 200 MG TAB 1 TAB PO DAILY HEART RATE Ammonium Lactate 12 % CREAM..G. 12 % TP BID foot fissures . Apixaban (Eliquis) 5 MG TABLET 1 TAB PO BID AFIB Atorvastatin Calcium 10 MG TABLET 1 TAB PO DAILY CHOLESTEROL Carvedilol (Coreg) 25 MG TABLET 0.5 TAB PO BID HIGH BLOOD PRESSURE (Reported) Dicyclomine HCl 10 MG CAPSULE 1 CAP PO TID ABDOMINAL PAIN Febuxostat (Uloric) 40 MG TABLET 40 MG PO DAILY Gout Ferrous Sulfate 325 MG (65 MG IRON) TABLET 1 TAB PO DAILY anemia Fluticasone/Salmeterol (Advair 500-50 Diskus) 500 MCG-50 MCG/DOSE BLST.W.DEV 1 PUF INH BID COPD (Reported) Furosemide (Lasix) 40 MG TABLET 40 MG PO BID Fluid Overload Gabapentin 400 MG CAPSULE 1 CAP PO TID NEUROPATHY (Reported) Glimepiride 1 MG TABLET 1 TAB PO BID DM (Reported) Guaifenesin (Guaifenesin ER) 600 MG TAB.ER.12H 1 TAB PO BID CONGSETION Hydroxyzine Hydrochloride (Atarax) 50 MG TABLET 2 TAB PO BID MUCUS (Reported) Ipratropium/Albuterol Sulfate (Combivent Respimat Inhal Lafferty) 20 MCG-100 MCG/ ACTUATION MIST.INHAL 2 PUFF INH BID copd (Reported) Losartan Potassium 25 MG TABLET 25 MG PO DAILY heart health . Metformin HCl (Glucophage) 1,000 MG TABLET 1 TAB PO BID DM (Reported) Montelukast Sodium (Singulair) 10 MG TABLET 1 TAB PO BID copd (Reported) Oxymetazoline HCl (Nasal Decongestant) 0.05 % SPRAY 2 SPRAY JOAQUIN BID PRN NASAL CONGESTION Prednisone 10 MG TABLET 1 TAB PO SEE ADMIN CRITERIA COPD 5PILLS-2DAYS,4PILLS-2DAYS,3PILLS-2DAYS, 2PILLS-2DAYS,1PILL-2DAYS,THEN STOP. Sulfamethoxazole/Trimethoprim (Bactrim Ds Tablet) 800 MG-160 MG TABLET 1 TAB PO BID MRSA PNEUMONIA Umeclidinium [place] (Incruse Ellipta) 62.5 MCG/ACTUATION BLST.W.DEV 1 PUFF INH DAILY COPD (Reported) Review of Systems Review of Systems Constitutional: Reports: see HPI. 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 Psychosocial History Who Do You Live With? self Services at Home: Oxygen Primary Language: Bhutanese Smoking Status: Never Smoked ETOH Use: occasional use Illicit Drug Use: denies illicit drug use Functional Ability ADLs Independent: dressing, eating, toileting, bathing. Ambulation: independent IADLs Independent: shopping, housework, finances, food prep, telephone, transportation , medication admin. Exam & Diagnostic Data Last 24 Hrs of Vital Signs/I&O Vital Signs Date Time Temp Pulse Resp B/P B/P Pulse O2 O2 Flow FiO2 Mean Ox Delivery Rate 06/12 1224 98.2 76 20 84/50 95 Nasal 3.5L Cannula 06/12 1135 90/60 06/12 1132 98.8 76 20 90/60 93 Nasal 3.5L Cannula 06/12 0953 95 Nasal 3.5L Cannula 06/12 0839 99.0 80 20 136/72 06/12 0839 99.0 80 20 136/72 06/12 0800 93 Nasal 3.5L Cannula 06/12 0554 99.0 80 20 136/72 95 Nasal 2.5L Cannula 06/12 0000 91 Nasal 3.5L Cannula 06/11 2238 97.8 74 24 140/80 91 Nasal 3.5L Cannula 06/11 2125 76 124/82 06/11 2019 93 Nasal 3.5L Cannula 06/11 1949 Nasal 3.5L Cannula 06/11 1739 98.7 76 20 126/82 94 06/11 1724 Nasal 3.5L Cannula 06/11 1612 98.7 68 20 130/80 92 Nasal 3.0L Cannula Intake & Output 06/12 1600 06/12 0800 06/12 0000 Intake Total 690 900 Output Total 1000 1100 Balance -1000 -410 900 Intake, IV 10 300 Intake, Oral 680 600 Number 3 Bowel Movements Output, Urine 1000 1100 Patient 380 lb Weight Physical Exam General Appearance: well developed/nourished, no apparent distress, alert, awake Head: atraumatic, normal appearance Eyes: Bilateral: PERRL. Ears, Nose, Throat: normal pharynx, normal ENT inspection Neck: normal inspection Respiratory: chest non-tender, no respiratory distress Cardiovascular: regular rate/rhythm Back: normal inspection Extremities: normal inspection Neurologic/Psych: no motor/sensory deficits, awake, alert, oriented x 3 Cranial Nerves: normal hearing, normal speech, PERRL Last 48 Hrs of Labs/Joaquim: Laboratory Tests 06/12/18 1331: Anion Gap 6, Estimated GFR 32 L, Glucose 190 H, Calcium 8.5, Phosphorus 2.6, Magnesium 1.7, Total Bilirubin 0.5, AST 11 L, ALT 25, Albumin 2.7 L, PT 18.7 H, INR 1.71 H, APTT 28, CBC w Diff Cancelled, WBC Cancelled, RBC Cancelled, Hgb Cancelled, Hct Cancelled, MCV Cancelled, MCH Cancelled, MCHC Cancelled, RDW Cancelled, Plt Count Cancelled, MPV Cancelled 06/12/18 1315: CBC w Diff NO MAN DIFF REQ, RBC 2.59 L, MCV 83.3, MCH 27.2, MCHC 32.7 L, RDW 15.7 H, MPV 6.8 L, Gran % 81.5 H, Lymphocytes % 12.9 L, Monocytes % 5.4, Eosinophils % 0, Basophils % 0.2, Absolute Granulocytes 10.2 H, Absolute Lymphocytes 1.6, Absolute Monocytes 0.7 H, Absolute Eosinophils 0, Absolute Basophils 0 06/12/18 0222: Urinalysis MOD H, Urine Color YEL, Urine Clarity CLEAR, Urine pH 6.0, Ur Specific [place] >= 1.030, Urine Protein TRACE H, Urine Ketones NEG, Urine Nitrite NEG, Urine Bilirubin NEG, Urine Urobilinogen 0.2, Ur Leukocyte Esterase NEG, Ur Microscopic SEDIMENT EXAMINED, Urine WBC RARE, Ur Epithelial Cells FEW, Urine Bacteria MANY H, Urine Hemoglobin NEG, Urine Glucose NEG 06/11/18 1957: Sodium Cancelled, Potassium Cancelled, Chloride Cancelled, Carbon Dioxide Cancelled, Anion Gap Cancelled, BUN Cancelled, Creatinine Cancelled, BUN/ Creatinine Ratio Cancelled 06/11/18 1840: Anion Gap 9, Estimated GFR 21 L, BUN/Creatinine Ratio 9.4, Troponin I 0.04 06/11/18 1513: Lactic Acid Cancelled 06/11/18 1250: pH 7.29 *L, pCO2 70 *H, pO2 87, HCO3 33 H, ABG O2 Sat (Measured) 96.0, Carboxyhemoglobin 1.2 L, O2 Concentration % 3L, O2 Delivery Method NC, Phlebotomy Draw Site RIGHT RADIAL 06/11/18 1230: Anion Gap 8, Estimated GFR 23 L, BUN/Creatinine Ratio 10.4, Glucose 87, Lactic Acid 1.3, Calcium 9.0, Total Bilirubin 0.8, AST 15 L, ALT 20 L, Alkaline Phosphatase 65, Troponin I 0.03, Hke-Z-Zhhtkcjzewm Pept 5180 H, Total Protein 6.1 L, Albumin 3.1 L, Globulin 3.0, Albumin/Globulin Ratio 1.0 L, CBC w Diff NO MAN DIFF REQ, RBC 3.77 L, MCV 85.4, MCH 27.2, MCHC 31.8 L, RDW 15.9 H, MPV 6.5 L, Gran % 74.1, Lymphocytes % 18.7 L, Monocytes % 6.7, Eosinophils % 0.4, Basophils % 0.1, Absolute Granulocytes 8.6 H, Absolute Lymphocytes 2.2, Absolute Monocytes 0.8 H, Absolute Eosinophils 0, Absolute Basophils 0 06/11/18 1213: Urine Color Cancelled, Urine Clarity Cancelled, Urine pH Cancelled, Ur Specific [place] Cancelled, Urine Protein Cancelled, Urine Ketones Cancelled, Urine Nitrite Cancelled, Urine Bilirubin Cancelled, Urine Urobilinogen Cancelled, Ur Leukocyte Esterase Cancelled, Ur Microscopic Cancelled, Urine Hemoglobin Cancelled, Urine Glucose Cancelled Assessment/Plan CRCU Impression/Plan: The patient is a 63 year old gentleman with above-mentioned past medical history was been transferred from general medicine floor to ICU for management of acute lower GI bleed He is currently being treated and evaluated for following conditions #Acute blood loss anemia secondary to acute lower GI bleed Patient had 3-5 melenic bowel movements in the morning in setting of borderline blood pressure he was transferred to ICU he has history of peptic ulcer disease and has been evaluated twice by GI in 2016 and 2017. Reports use of Motrin and naproxen last week -NPO -Going to attempt to obtain to 2 large bore IV access. -Q4 CBCs will transfuse to maintain H/H 824 -IV Protonix -Discontinue Eliquis -K centra and fresh frozen plasma -Avoid NSAIDs -DVT prophylaxis only with ALPS -GI consult has been placed with Dr. Rebolledo awaiting callback -Reconsult GI immediately if there is any sign of hemodynamic instability #Acute on chronic hypercapnic respiratory failure (COPD exacerbation, obstructive sleep apnea noncompliant with CPAP) -Maintain oxygen saturation above 92% -Continue BiPAP overnight -TRC -Follow sputum culture -He has received 40 mg IV methylprednisone twice today is on q. 8 scheduled dose will DC for now reevaluate in the morning -Finish Z-Nura #LISETTE, CKD stage III/IV Presented with creatinine of 2.8 has improved to 2.1. Reports use of Motrin and naproxen last week also reports poor oral intake Elevated BUN in setting of GI bleed -Monitor creatinine curve -Avoid nephrotoxins #Hyperkalemia -No EKG changes observed -Avoid Kayexalate in setting of active GI bleed -Dextrose and insulin -Repeat at 6pm #History of hypertension All antihypertensive on hold in setting of GI bleed and borderline blood pressure #History of CHFrEF, ischemic cardiomyopathy Patient has ejection fraction of only 25-30%. Has been transfused RBCs, currently running on maintenance fluid 75 mL/h -Monitor For volume overload -EKG and troponin #History of atrial fibrillation -Eliquis on hold -Patient received amiodarone in the morning, repeat EKG in am for QTC prolongation, will dc for now, resume if ok #History of diabetes mellitus -Insulin sliding scale NPO NPO/awaiting colonoscopy/DVT prophylaxis with Alps only DVT has been ruled out/ full code Consult Acknowledgment - Thank you for your consult request. Jessica HARPER,[facility] 06/12/18 0759: Assessment/Plan CRCU Other Findings/Comments: Seen and examined independently Mr. Padilla is a 63-year-old male with past medical history significant for ischemic cardiomyopathy who is status post placement of an AICD and who is on Eliquis. He also takes Naprosyn and Motrin at home. He also has a past medical history of COPD, diabetes mellitus, hyperlipidemia, and GI bleeding due to gastric and duodenal ulcers. Patient has had multiple admissions to [facility] for COPD exacerbation and CHF. Patient was admitted on 06/11 with a chief complaint of increasing shortness of breath. A CXR showed mild CHF. He had an ABD on 3 liters that showed a pH of 7.29/70/87. However on the morning of 06/12 after passing a hard stool he passed melenic stool with associated bright red blood. After his first stool his his vital signs were stable. However he continued to pass melenic stool with associated bright red blood and had a decline in his blood pressure such that his systolic blood pressure dipped to the 80s. On admission his H&H was on 06/10 13.1/44.8. On 06/11 it declined to 10.2/32.2 and on 06/12 it dropped to 7.1/21.6. he has received one unit of blood and his systolic blood pressure has increased to 100. His BUN/Cr was 24/1.9 on admission and on increased 20 29/3.1 and today it is 56/2.1. He has had some mild nausea, but no vomiting. His last endoscopy in 2016 showed a 1 cm clean based gastric ulcer as well as a 1 cm clean based duodenal ulcer. There were no signs of underlying liver disease. There were no esophageal or gastric varices and no portal hypertensive gastropathy. At that time patient was admitted with a drop in H/H and hemoccult positive stool, but no melena or hematemesis. HE is trasferred to the ICU due to sig bleeding and anemia, S/p K-centra, prbc and now has adequate lines General Appearance: alert, awake, moderate distress, morbidly obese Head: atraumatic, normal appearance Eyes: Bilateral: normal appearance. Ears, Nose, Throat: hearing grossly normal Neck: supple, full range of motion Respiratory: breath sounds are hyper-resonant Cardiovascular: distant heart sounds, regular Gastrointestinal: normal bowel sounds, soft, non-tender Rectal: deferred, patient in chair Extremities: pedal edema, swelling Neurologic/Psych: awake, alert, oriented x 3, patient is [place] Cranial Nerves: cranial nerves II-XII grossly intact Skin: intact, normal color, warm/dry 63 year old male with a past medical history significant for HFrEF (25-30%) nonischemic cardiomyopathy s/p dual chamber PPM/AICD, oxygen dependent COPD on 3.5 L baseline, obstructive sleep apnea not on CPAP, DM, CKD Stage , HLD, GERD/ PUD, chronic lower extremity edema with venous stasis changes, gout s/p left foot debridement, and multiple admissions for dyspnea secondary to COPD/CHF exacerbation presents with similar complaints of worsening dyspnea with arm swelling now with sig GI bleed Issues * SIg Gi bleed with melena in a gentleman with recent nsaid use, prior PUD, Now with blood loss anemia hypotension, did take eloquis this am and now s/p K- Centra, Prbc and appears to be hemodynamically stable * Chronic hypercarbic resp failure with copd and jory with noncompliance of bipap * COPDE now with sig sputum - colonization prob * Severe Ischemic cardiomyopathy with Low ef with high risk for fluid overload * Atrial fibrillation was on anticoag * JORY noncompliant * History of gout * Upper ext swelling no sig dvt noted by ultrasound * Chronic nsaid use/on factor x inhibitor * Acute kidney injury with ckd stage 2-3 REC Cont current care Pt has low ef and MAP goal should be 60 mm hg Cont steroids and reduce dose to 60 daily Bipap at has if veronica Reduce atarax to 25 bid prn Add ceftaz and dc azithro after tommorow Watch crit and if he continues to bleed can give one large bag of platelets aswell If he does exangunate will consider Transamenic acid IV ppi NPO FGG and sliding scale Avoid crystalloid and resusitate wtih prbc and ffp if needed in the future Follow crit Ekg and troponin regularly WIll follow closely Pt does not wish prolonged intubatin etc and wishes mainly conservative rx - full code for now Critically ill tts 40 mins Consult Acknowledgment - Thank you for your consult request.
[2018-06-12 16:00] VITALS: BP 100/58
--- NOTE | 2018-06-12 16:56 | Cons- Gastroenterology ---
General Information and HPI Consulting Request Date of Consult: 06/12/18 Requested By: Kinsey Marte MD Reason for Consult: 1. Melena 2. Acute blood loss anemia 3. Chronic use antithrombotic agent 4. History of peptic ulcer disease 5. Chronic use NSAIDs Source of Information: patient, Electronic Medical Record Exam Limitations: no limitations History of Present Illness: Mr. Padilla is a 63-year-old male with past medical history significant for ischemic cardiomyopathy who is status post placement of an AICD and who is on Eliquis. He also takes Naprosyn and Motrin at home. He also has a past medical history of COPD, diabetes mellitus, hyperlipidemia, and GI bleeding due to gastric and duodenal ulcers. Patient has had multiple admissions to [facility] for COPD exacerbation and CHF. Patient was admitted on 06/11 with a chief complaint of increasing shortness of breath. A CXR showed mild CHF. He had an ABD on 3 liters that showed a pH of 7.29/70/87. However on the morning of 06/12 after passing a hard stool he passed melenic stool with associated bright red blood. After his first stool his his vital signs were stable. However he continued to pass melenic stool with associated bright red blood and had a decline in his blood pressure such that his systolic blood pressure dipped to the 80s. On admission his H&H was on 06/10 13.1/44.8. On 06/11 it declined to 10.2/32.2 and on 06/12 it dropped to 7.1/21.6. he has received one unit of blood and his systolic blood pressure has increased to 100. His BUN/Cr was 24/1.9 on admission and on 817 increased 20 29/3.1 and today it is 56/2.1. He has had some mild nausea, but no vomiting. His last endoscopy in 2017 showed a 1 cm clean based gastric ulcer as well as a 1 cm clean based duodenal ulcer. There were no signs of underlying liver disease. There were no esophageal or gastric varices and no portal hypertensive gastropathy. At that time patient was admitted with a drop in H/H and hemoccult positive stool, but no melena or hematemesis. Patient has been given K-centra. Allergies/Medications Allergies: Coded Allergies: No Known Allergies (01/08/18) Home Med List: Acetaminophen 500 MG TABLET 1 TAB PO DAILY PRN PAIN PLEASE ALTERNATE WITH NAPROXEN FOR PAIN Albuterol Sulfate (Proair Hfa) 90 MCG HFA.AER.AD 2 PUF INH Q4-6 PRN PRN COPD (Reported) Amiodarone (Cordarone) 200 MG TAB 1 TAB PO DAILY HEART RATE Ammonium Lactate 12 % CREAM..G. 12 % TP BID foot fissures . Apixaban (Eliquis) 5 MG TABLET 1 TAB PO BID AFIB Atorvastatin Calcium 10 MG TABLET 1 TAB PO DAILY CHOLESTEROL Carvedilol (Coreg) 25 MG TABLET 0.5 TAB PO BID HIGH BLOOD PRESSURE (Reported) Dicyclomine HCl 10 MG CAPSULE 1 CAP PO TID ABDOMINAL PAIN Febuxostat (Uloric) 40 MG TABLET 40 MG PO DAILY Gout Ferrous Sulfate 325 MG (65 MG IRON) TABLET 1 TAB PO DAILY anemia Fluticasone/Salmeterol (Advair 500-50 Diskus) 500 MCG-50 MCG/DOSE BLST.W.DEV 1 PUF INH BID COPD (Reported) Furosemide (Lasix) 40 MG TABLET 40 MG PO BID Fluid Overload Gabapentin 400 MG CAPSULE 1 CAP PO TID NEUROPATHY (Reported) Glimepiride 1 MG TABLET 1 TAB PO BID DM (Reported) Guaifenesin (Guaifenesin ER) 600 MG TAB.ER.12H 1 TAB PO BID CONGSETION Hydroxyzine Hydrochloride (Atarax) 50 MG TABLET 2 TAB PO BID MUCUS (Reported) Ipratropium/Albuterol Sulfate (Combivent Respimat Inhal [place]) 20 MCG-100 MCG/ ACTUATION MIST.INHAL 2 PUFF INH BID copd (Reported) Losartan Potassium 25 MG TABLET 25 MG PO DAILY heart health . Metformin HCl (Glucophage) 1,000 MG TABLET 1 TAB PO BID DM (Reported) Montelukast Sodium (Singulair) 10 MG TABLET 1 TAB PO BID copd (Reported) Oxymetazoline HCl (Nasal Decongestant) 0.05 % SPRAY 2 SPRAY JOAQUIN BID PRN NASAL CONGESTION Prednisone 10 MG TABLET 1 TAB PO SEE ADMIN CRITERIA COPD 5PILLS-2DAYS,4PILLS-2DAYS,3PILLS-2DAYS, 2PILLS-2DAYS,1PILL-2DAYS,THEN STOP. Sulfamethoxazole/Trimethoprim (Bactrim Ds Tablet) 800 MG-160 MG TABLET 1 TAB PO BID MRSA PNEUMONIA Umeclidinium [place] (Incruse Ellipta) 62.5 MCG/ACTUATION BLST.W.DEV 1 PUFF INH DAILY COPD (Reported) Current Medications: Current Medications Sig/[place] Start time Last Medication Dose Route Stop Time Status Admin Acetaminophen 1,000 MG Q6P PRN 06/11 1445 AC 06/12 IV 0839 Albuterol Sulfate 3 ML TID 06/11 2100 AC 06/12 INH 1325 Amiodarone HCl 200 MG DAILY 06/12 0900 AC 06/12 PO 0839 Anti-Inhibitor 4,000 UNIT ONCE ONE 06/12 1315 DC 06/12 Coagulant Complex IV 06/12 1334 1342 Sterile Water 160 ML Apixaban 5 MG BID 06/11 2100 DC 06/12 PO 0839 Atorvastatin Calcium 10 MG DAILY 06/12 09 AC 06/12 PO 0839 Azithromycin 250 MG DAILY 06/12 0900 AC 06/12 PO 1248 Azithromycin 500 MG ONCE ONE 06/11 1830 DC 06/11 Sodium Chloride 250 ML IV 06/11 1929 1957 Carvedilol 12.5 MG BID 06/11 2100 AC 06/12 PO 0839 Dextrose 0 .STK-MED ONE 06/12 1611 DC IV Dextrose 25 GM ONCE ONE 06/12 1600 DC 06/12 IV 06/12 1601 1610 Febuxostat 40 MG DAILY 06/12 0900 AC 06/12 PO 0839 Ferrous Sulfate 325 MG DAILY 06/12 0900 AC 06/12 PO 0839 Gabapentin 400 MG TID 06/11 2100 AC 06/12 PO 1341 Guaifenesin 600 MG Q12 06/11 2100 AC 06/12 PO 0839 Hydroxyzine HCl 50 MG BID 06/12 2100 AC PO Hydroxyzine HCl 100 MG BID 06/12 0845 DC 06/12 PO 0838 Hydroxyzine HCl 100 MG BID 06/12 0200 DC 06/12 PO 0159 Hydroxyzine HCl 50 MG ONCE ONE 06/12 0100 CAN PO 06/12 0101 Hydroxyzine HCl 10 MG BID 06/11 2145 AC 06/12 PO 0840 Insulin Aspart 0 .STK-MED ONE 06/12 0845 DC SC Insulin Aspart 0 TIDAC 06/11 1700 AC 06/12 SC 0838 Insulin Human Regular 0 .STK-MED ONE 06/12 1609 DC .ROUTE Insulin Human Regular 10 UNITS ONCE ONE 06/12 1600 DC 06/12 IV 06/12 1601 1610 Methylprednisolone 40 MG Q8 06/11 2200 DC 06/12 IV 1341 Pantoprazole Sodium 40 MG BID 06/12 2100 CAN IV Pantoprazole Sodium 40 MG BID 06/12 2100 AC IV Pantoprazole Sodium 40 MG Q5H 06/12 1100 DC 06/12 Sodium Chloride 100 ML IV 1249 Pantoprazole Sodium 80 MG ONCE ONE 06/12 1100 DC 06/12 IV 06/12 1101 1248 Sodium Chloride 500 ML .Q6H40M 06/12 1145 AC 06/12 IV 1248 Past History Travel History Traveled to [place] past 21 day No Medical History Blood Transfusion Hx: Yes Neurological: NONE EENT: NONE Cardiovascular: AFIB, CAD, cardiomyopathy, CHF, chronic venous insuff, hyperlipidemia, CARDIAC ARREST S/P LWC PACER with DEFIB Respiratory: COPD, SLEEP APNEA O2 3.5L NC @ [facility] Gastrointestinal: constipation, peptic ulcer disease, EGD 08/10 showed numerous gastric and duodenal ulcers Hepatic: NONE Renal: benign prost hyperplasia Musculoskeletal: gout, rheumatoid arthritis Psychiatric: NONE Endocrine: diabetes Blood Disorders: anemia Cancer(s): NONE [employer]/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 Psychosocial History Who Do You Live With? self Services at Home: Oxygen Primary Language: Uzbek Smoking Status: Never Smoked ETOH Use: occasional use Illicit Drug Use: denies illicit drug use Functional Ability ADLs Independent: dressing, eating, toileting, bathing. Ambulation: independent IADLs Independent: shopping, housework, finances, food prep, telephone, transportation , medication admin. Exam & Diagnostic Data Vital Signs and I&O Vital Signs Date Time Temp Pulse Resp B/P B/P Pulse O2 O2 Flow FiO2 Mean Ox Delivery Rate 06/12 1600 95 Nasal 3.0L Cannula 06/12 1600 97.8 76 20 100/58 95 Nasal 3.0L Cannula 06/12 1224 98.2 76 20 84/50 95 Nasal 3.5L Cannula 06/12 1135 90/60 06/12 1132 98.8 76 20 90/60 93 Nasal 3.5L Cannula 06/12 0953 95 Nasal 3.5L Cannula 06/12 0839 99.0 80 20 136/72 06/12 0839 99.0 80 20 136/72 06/12 0800 93 Nasal 3.5L Cannula 06/12 0554 99.0 80 20 136/72 95 Nasal 2.5L Cannula 06/12 0000 91 Nasal 3.5L Cannula 06/11 2238 97.8 74 24 140/80 91 Nasal 3.5L Cannula 06/11 2125 76 124/82 06/11 2019 93 Nasal 3.5L Cannula 06/11 1949 Nasal 3.5L Cannula 06/11 1739 98.7 76 20 126/82 94 06/11 1724 Nasal 3.5L Cannula Intake & Output 06/12 1600 06/12 0400 06/11 1600 06/11 0400 06/10 1600 06/10 0400 Intake Total 1135 900 0 Output Total 2100 Balance -965 900 0 Intake, IV 455 300 Intake, Oral 680 600 0 Number 3 Bowel Movements Output, Urine 2100 Patient 380 lb 380 lb Weight Physical Exam General Appearance: alert, awake, moderate distress, morbidly obese Head: atraumatic, normal appearance Eyes: Bilateral: normal appearance. Ears, Nose, Throat: hearing grossly normal Neck: supple, full range of motion Respiratory: breath sounds are hyper-resonant Cardiovascular: distant heart sounds, regular Gastrointestinal: normal bowel sounds, soft, non-tender Rectal: deferred, patient in chair Extremities: pedal edema, swelling Neurologic/Psych: awake, alert, oriented x 3, patient is [place] Cranial Nerves: cranial nerves II-XII grossly intact Skin: intact, normal color, warm/dry Results Pertinent Lab Results: Laboratory Tests 06/12 06/12 1331 1315 Chemistry Sodium (137 - 145 mmol/L) 134 L Potassium (3.5 - 5.1 mmol/L) 5.5 H Chloride (98 - 107 mmol/L) 95 L Carbon Dioxide (22 - 30 mmol/L) 33 H Anion Gap (5 - 16) 6 BUN (9 - 20 mg/dL) 56 H Creatinine (0.7 - 1.2 mg/dL) 2.1 H Estimated GFR (>60 ml/min) 32 L Glucose (65 - 99 mg/dL) 190 H Calcium (8.4 - 10.2 mg/dL) 8.5 Phosphorus (2.5 - 4.5 mg/dL) 2.6 Magnesium (1.6 - 2.3 mg/dL) 1.7 Total Bilirubin (0.2 - 1.3 mg/dL) 0.5 AST (17 - 59 U/L) 11 L ALT (21 - 72 U/L) 25 Albumin (3.5 - 5.0 g/dL) 2.7 L Coagulation PT (9.4 - 12.5 SEC) 18.7 H INR (0.90 - 1.17) 1.71 H APTT (25 - 37 SEC) 28 Hematology CBC w Diff Cancelled NO MAN DIFF REQ WBC (4.8 - 10.8 /CUMM) Cancelled 12.6 H RBC (4.70 - 6.10 /CUMM) Cancelled 2.59 L Hgb (14.0 - 18.0 G/DL) Cancelled 7.1 *L Hct (42 - 52 %) Cancelled 21.6 L MCV (80.0 - 94.0 FL) Cancelled 83.3 MCH (27.0 - 31.0 PG) Cancelled 27.2 MCHC (33.0 - 37.0 G/DL) Cancelled 32.7 L RDW (11.5 - 14.5 %) Cancelled 15.7 H Plt Count (130 - 400 /CUMM) Cancelled 263 MPV (7.4 - 10.4 FL) Cancelled 6.8 L Gran % (42.2 - 75.2 %) 81.5 H Lymphocytes % (20.5 - 51.1 %) 12.9 L Monocytes % (1.7 - 9.3 %) 5.4 Eosinophils % (0 - 5 %) 0 Basophils % (0.0 - 2.0 %) 0.2 Absolute Granulocytes (1.4 - 6.5 /CUMM) 10.2 H Absolute Lymphocytes (1.2 - 3.4 /CUMM) 1.6 Absolute Monocytes (0.10 - 0.60 /CUMM) 0.7 H Absolute Eosinophils (0.0 - 0.7 /CUMM) 0 Absolute Basophils (0.0 - 0.2 /CUMM) 0 06/12 1840 Chemistry Sodium (137 - 145 mmol/L) Cancelled 137 Potassium (3.5 - 5.1 mmol/L) Cancelled 4.9 Chloride (98 - 107 mmol/L) Cancelled 94 L Carbon Dioxide (22 - 30 mmol/L) Cancelled 34 H Anion Gap (5 - 16) Cancelled 9 BUN (9 - 20 mg/dL) Cancelled 29 H Creatinine (0.7 - 1.2 mg/dL) Cancelled 3.1 H Estimated GFR (>60 ml/min) 21 L BUN/Creatinine Ratio (7 - 25 %) Cancelled 9.4 Troponin I (<0.11 ng/ml) 0.04 Urines Urinalysis MOD H Urine Color (YEL,AMB,STR) YEL Urine Clarity (CLEAR) CLEAR Urine pH (5.0 - 8.0) 6.0 Ur Specific [place] (1.001 - 1.035) >= 1.030 Urine Protein (NEG,<30 MG/DL) TRACE H Urine Ketones (NEG) NEG Urine Nitrite (NEG) NEG Urine Bilirubin (NEG) NEG Urine Urobilinogen (0.1 - 1.0 EU/dl) 0.2 Ur Leukocyte Esterase (NEG) NEG Ur Microscopic SEDIMENT EXAMINED Urine WBC (0 - 2 /HPF) RARE Ur Epithelial Cells (NONE,FEW) FEW Urine Bacteria (NEG/NONE) MANY H Urine Hemoglobin (NEG) NEG Urine Glucose (N MG/DL) NEG 06/11 06/11 1513 1250 Blood Gas pH (7.35 - 7.45 PH) 7.29 *L pCO2 (35 - 45 TORR) 70 *H pO2 (80 - 100 TORR) 87 HCO3 (21 - 28 MEQ/L) 33 H ABG O2 Sat (Measured) (>96.0 %) 96.0 Carboxyhemoglobin (1.5 - 5.0 %) 1.2 L O2 Concentration % 3L O2 Delivery Method NC Chemistry Lactic Acid Cancelled Miscellaneous Phlebotomy Draw Site RIGHT RADIAL 06/11 06/11 1230 1213 Chemistry Sodium (137 - 145 mmol/L) 139 Potassium (3.5 - 5.1 mmol/L) 4.6 Chloride (98 - 107 mmol/L) 95 L Carbon Dioxide (22 - 30 mmol/L) 36 H Anion Gap (5 - 16) 8 BUN (9 - 20 mg/dL) 29 H Creatinine (0.7 - 1.2 mg/dL) 2.8 H Estimated GFR (>60 ml/min) 23 L BUN/Creatinine Ratio (7 - 25 %) 10.4 Glucose (65 - 99 mg/dL) 87 Lactic Acid (0.7 - 2.1 mmol/L) 1.3 Calcium (8.4 - 10.2 mg/dL) 9.0 Total Bilirubin (0.2 - 1.3 mg/dL) 0.8 AST (17 - 59 U/L) 15 L ALT (21 - 72 U/L) 20 L Alkaline Phosphatase (< 127 U/L) 65 Troponin I (<0.11 ng/ml) 0.03 Hxq-G-Cytegmvlgyt Pept (<125 pg/mL) 5180 H Total Protein (6.3 - 8.2 g/dL) 6.1 L Albumin (3.5 - 5.0 g/dL) 3.1 L Globulin (1.9 - 4.2 gm/dL) 3.0 Albumin/Globulin Ratio (1.1 - 2.2 %) 1.0 L Hematology CBC w Diff NO MAN DIFF REQ WBC (4.8 - 10.8 /CUMM) 11.6 H RBC (4.70 - 6.10 /CUMM) 3.77 L Hgb (14.0 - 18.0 G/DL) 10.2 L Hct (42 - 52 %) 32.2 L MCV (80.0 - 94.0 FL) 85.4 MCH (27.0 - 31.0 PG) 27.2 MCHC (33.0 - 37.0 G/DL) 31.8 L RDW (11.5 - 14.5 %) 15.9 H Plt Count (130 - 400 /CUMM) 218 MPV (7.4 - 10.4 FL) 6.5 L Gran % (42.2 - 75.2 %) 74.1 Lymphocytes % (20.5 - 51.1 %) 18.7 L Monocytes % (1.7 - 9.3 %) 6.7 Eosinophils % (0 - 5 %) 0.4 Basophils % (0.0 - 2.0 %) 0.1 Absolute Granulocytes (1.4 - 6.5 /CUMM) 8.6 H Absolute Lymphocytes (1.2 - 3.4 /CUMM) 2.2 Absolute Monocytes (0.10 - 0.60 /CUMM) 0.8 H Absolute Eosinophils (0.0 - 0.7 /CUMM) 0 Absolute Basophils (0.0 - 0.2 /CUMM) 0 Urines Urine Color Cancelled Urine Clarity Cancelled Urine pH Cancelled Ur Specific [place] Cancelled Urine Protein Cancelled Urine Ketones Cancelled Urine Nitrite Cancelled Urine Bilirubin Cancelled Urine Urobilinogen Cancelled Ur Leukocyte Esterase Cancelled Ur Microscopic Cancelled Urine Hemoglobin Cancelled Urine Glucose Cancelled Assessment/Plan Assessment/Recommendations: ASSESSMENT: 1. Hypotension 2. Acute Blood Loss Anemia 3. Melena 4. history of Gastric and Duodenal Ulcer 5. Chronic Use of Antithrombotic Agents 6. Chronic Use of NSAIDs 7. COPD 8. Ischemic Cardiomyopathy 9. Acute Renal Failure RECOMMENDATIONS: 1. Transfuse another unit PRBC 2. Strict I/O 3. 2 large bore IV 4. Protonix continuous IV ifusion 5. NPO 6. Serial H/H every 4 hours until a.m. 7. Urgent EGD once second unit transfused. Risaks and benefits have been discussed with patient. Consent has been obtained. 8. Discussed with Dr. Lopez regarding stability from pulmonary point of view. 9. Erythromycin 200 mg IV x T now and Reglan 10 mg X 1 now. 10. Increase IV fluids to 100 ml/hr. 11. Follow BUN/Cr. Consult Acknowledgment - Thank you for your consult request.
[2018-06-12 19:13] LABS: ABSOLUTE BASOPHIL COUNT 0 /CUMM (0.0-0.2); ABSOLUTE EOSINOPHIL COUNT 0 /CUMM (0.0-0.7); ABSOLUTE GRANULOCYTE CT 10.8 /CUMM (1.4-6.5); ABSOLUTE LYMPH COUNT 1.8 /CUMM (1.2-3.4); ABSOLUTE MONOCYTE COUNT 0.6 /CUMM (0.10-0.60); BASOPHIL % 0.3 % (0.0-2.0); EOSINOPHIL % 0 % (0-5); GRANULOCYTE % 81.6 % (42.2-75.2); HEMATOCRIT 26.1 % (42-52); MEAN CORPUSCULAR HGB 27.5 PG (27.0-31.0); MEAN CORPUSCULAR VOLUME 83.2 FL (80.0-94.0); MEAN PLATELET VOLUME 6.9 FL (7.4-10.4); PLATELET COUNT 269 /CUMM (130-400); RBC DISTRIBUTION WIDTH 15.5 % (11.5-14.5); RED BLOOD CELL CT 3.13 /CUMM (4.70-6.10); WHITE BLOOD CELL COUNT 13.3 /CUMM (4.8-10.8)
--- NOTE | 2018-06-12 19:58 | Proc Note Endoscopy ---
Endoscopy Procedure Medical History: unchanged Mental Status: alert/oriented Heart/Lung Eval Prior to Sedation: within normal limits Candidate for Sedation? Yes Procedure Date: 06/12/18 Procedure Type: EGD w/ control of bleeding (submucosal injection, cautery, endoclip) Kayaking Instructor: MD Anna Deborah E. ASA Classification: III Indications: 1. Hypotension 2. Melena 3. Acute drop in H&H Instrument: diagnostic gastroscope Meds Received: MAC Patient's Tolerance: good Complications: none Extent Reached: second part of duodenum Procedure: Note: Informed consent was obtained prior to procedure. Risks and benefits of procedure were discussed with patient. Potential complications discussed included perforation, bleeding, abdominal pain, and adverse reaction to medications. It was explained that iany or all of these complications could result in the need for extended hospitalization, emergency surgery, transfusion of packed red blood cells (with the risk of HIV or hepatitis virus), intubation with mechanical ventilation, and possible need for antibiotics. It was further explained that an existing tumor polyp or mucosal abnormality might not be identified at the time of the procedure thus resulting in a missed opportunity for early diagnosis and treatment of a gastrointestinal malignancy or disease with possible interval development of a gastrointestinal cancer or other disease with possible worsening of clinical condition in the interval between endoscopies. It was also discussed that complications are not limited to those listed above. Possible alternatives to endoscopic treatment or evaluation were discussed. All questions were answered. Continuous EKG and blood pressure monitors were attached. Supplemental oxygen was provided with O2 Sat monitoring. Patient was placed in the left lateral decubitus position. A surgical timeout was performed. All persons in the room were identified. All concerns were expressed and answered. A bite block was placed in the mouth and sedation was administered by anesthesia and titrated to comfort prior to starting the procedure. The Olympus upper endoscope was advanced under direct vision to the level of the third portion of the duodenum. Esophagus: The esophagus had a normal mucosal vascular pattern throughout its entirety. The GE junction was identified and was normal. The Z line was nondisplaced. Stomach: The stomach had diffuse erythema in the antrum and body. Retroflexed view of the cardiofundic region revealed diffuse erythema and edema as well. There were normal rugae and normal distensibility. The pylorus was patent and easily intubated. Adjacent to the pylorus there is a deeply cratered gastric ulcer measuring approximately 1.8 cm. There was active oozing from this ulcer and there was food impacted within the ulcer crater. The food was cleaned out and there was a visible vessel noted as well as losing from the ulcer crater itself.. 4 mL of epinephrine was injected around the ulcer crater with appropriate blanching of the mucosa. The AICD was disabled by placing a magnet on top of it by anesthesia. After that had been done, oozing areas were treated with BiCAP electrocautery. One Endo Clip was placed on the visible vessel with good control of bleeding. An attempt was made to place a second Endo Clip which was deployed prior to placement. No further attempt was made given the difficult location with regard to placement and concerns regarding trauma to the ulcer. The magnet was removed from over the AICD. Duodenum: The duodenum was fully examined from bulb down to the third portion. There was a normal mucosal vascular pattern throughout. With the endoscope in the forward-viewing position, it was slowly withdrawn and all areas were re-inspected and findings are as described previously. Patient tolerated the procedure well. EBL: 2 ml Specimens Removed: none Findings: 1. Gastric ulcer with visible vessel 2. Diffuse Gastritis Impression: 1. Gastric ulcer with visible vessel 2. Diffuse Gastritis Recommendations: Discussed with housestaff on-call, Dr. Schuyler Grimes 1. If patient has recurrent GI bleeding, hypotension, drop in H&H, I am to be called immediately. 2. patient is at increased risk of rebleeding. If that should happen, patient will need urgent angiography for embolization. 3. Patient is to remain on Protonix drip 4. Serial H&H every 4 hours. Transfuse as needed with strict attention to eyes and nose given history of cardiomyopathy and ejection fraction of 25%. Must be vigilant with regard to congestive heart failure 5. I discussed with medical house staff that cardiology is to be called immediately regarding AICD which may need to be interrogated after having been turned off and on. 6. Would prefer the patient remain n.p.o., however patient was very angry prior to procedure with regard to n.p.o. status. If patient becomes agitated, patient may have ice chips and very limited quantities only.
[2018-06-12 22:18] LABS: ABSOLUTE BASOPHIL COUNT 0.1 /CUMM (0.0-0.2); ABSOLUTE EOSINOPHIL COUNT 0 /CUMM (0.0-0.7); ABSOLUTE LYMPH COUNT 1.7 /CUMM (1.2-3.4); ABSOLUTE MONOCYTE COUNT 0.6 /CUMM (0.10-0.60); BASOPHIL % 0.5 % (0.0-2.0); EOSINOPHIL % 0 % (0-5); GRANULOCYTE % 81.3 % (42.2-75.2); HEMATOCRIT 24.1 % (42-52); MEAN CORPUSCULAR HGB 27.5 PG (27.0-31.0); MEAN CORPUSCULAR HGB CONC 32.8 G/DL (33.0-37.0); MEAN CORPUSCULAR VOLUME 83.9 FL (80.0-94.0); MEAN PLATELET VOLUME 6.5 FL (7.4-10.4); PLATELET COUNT 270 /CUMM (130-400); RBC DISTRIBUTION WIDTH 15.3 % (11.5-14.5); RED BLOOD CELL CT 2.87 /CUMM (4.70-6.10); WHITE BLOOD CELL COUNT 12.3 /CUMM (4.8-10.8)
[2018-06-13] VITALS: BP 136/80
[2018-06-13 02:47] LABS: ABSOLUTE BASOPHIL COUNT 0.1 /CUMM (0.0-0.2); ABSOLUTE EOSINOPHIL COUNT 0 /CUMM (0.0-0.7); ABSOLUTE GRANULOCYTE CT 9.1 /CUMM (1.4-6.5); ABSOLUTE LYMPH COUNT 1.6 /CUMM (1.2-3.4); ABSOLUTE MONOCYTE COUNT 0.8 /CUMM (0.10-0.60); BASOPHIL % 0.6 % (0.0-2.0); EOSINOPHIL % 0 % (0-5); GRANULOCYTE % 78.4 % (42.2-75.2); HEMATOCRIT 24.4 % (42-52); MEAN CORPUSCULAR HGB 27.7 PG (27.0-31.0); MEAN CORPUSCULAR HGB CONC 32.9 G/DL (33.0-37.0); MEAN CORPUSCULAR VOLUME 84.4 FL (80.0-94.0); MEAN PLATELET VOLUME 6.4 FL (7.4-10.4); PLATELET COUNT 254 /CUMM (130-400); RBC DISTRIBUTION WIDTH 15.1 % (11.5-14.5); RED BLOOD CELL CT 2.89 /CUMM (4.70-6.10); WHITE BLOOD CELL COUNT 11.6 /CUMM (4.8-10.8)
--- NOTE | 2018-06-13 08:07 | PN- Resident CRCU ---
Subjective HPI/CRCU Issues: #Acute blood loss anemia secondary to bleeding gastric ulcer AV 4 units FFP and 3 units PRBCs #Bleeding gastric ulcer S/P Epi injection and clipping #Acute on chronic hypercapnic respiratory failure (COPD exacerbation, obstructive sleep apnea noncompliant with CPAP) #LISETTE, CKD stage III/IV-improving #Hyperkalemia-improved #History of hypertension #History of CHFrEF, ischemic cardiomyopathy on amiodarone and AICD #History of atrial fibrillation #History of diabetes mellitus 24 Hour Events: No overnight events, vital signs stable, patient had upper EGD which showed bleeding gastric ulcer, A/P epinephrine injection and clipping. PCP showed improvement of his potassium 5.1, sodium 141, improvement of kidney function creatinine this morning was 1.4. Patient received 3 units PRBCs, H&H stable, last one at 2:30 AM was 8.4. Patient is still n.p.o. and reports being hungry wishes to eat Objective Vital Signs & I&O Last 8 Hrs of Vitals and I&O: Vital Signs Date Time Temp Pulse Resp B/P B/P Pulse O2 O2 Flow FiO2 Mean Ox Delivery Rate 06/13 0854 98 Nasal 5.0L Cannula 06/13 0852 76 126/80 06/13 0800 98 Nasal 5.0L Cannula 06/13 0400 96 Nasal 3.5L Cannula 06/13 0038 79 98 06/13 0000 99 Nasal 3.5L Cannula 06/13 0000 97.6 74 18 136/80 99 Nasal 3.5L Cannula 06/12 2000 89 Nasal 3.5L Cannula 06/12 1600 95 Nasal 3.0L Cannula 06/12 1600 97.8 76 20 100/58 95 Nasal 3.0L Cannula 06/12 1224 98.2 76 20 84/50 95 Nasal 3.5L Cannula 06/12 1135 90/60 06/12 1132 98.8 76 20 90/60 93 Nasal 3.5L Cannula Intake & Output 06/13 1600 06/13 0800 06/13 0000 Intake Total 1100 2235 Output Total 1475 1100 Balance -375 1135 Intake, Blood 350 650 Product Intake, IV 750 1585 Number 1 Bowel Movements Output, Urine 1475 1100 Exam General Appearance: alert, awake, comfortable Neck: normal inspection Respiratory: normal breath sounds Cardiovascular: regular rate/rhythm Gastrointestinal: normal bowel sounds Extremities: 2+ bilateral pitting edema, chronic venous skin changes Skin: intact, normal color IV Drips IV Drips: protonix Current Medications: Current Medications Sig/Keaton Start time Last Medication Dose Route Stop Time Status Admin Acetaminophen 1,000 MG Q6P PRN 06/11 1445 AC 06/12 IV 0839 Albuterol Sulfate 3 ML TID 06/11 2100 AC 06/13 INH 0824 Amiodarone HCl 200 MG DAILY 06/12 0900 DC 06/12 PO 0839 Anti-Inhibitor 4,000 UNIT ONCE ONE 06/12 1315 DC 06/12 Coagulant Complex IV 06/12 1334 1342 Sterile Water 160 ML Apixaban 5 MG BID 06/11 2100 DC 06/12 PO 0839 Atorvastatin Calcium 10 MG DAILY 06/12 09 AC 06/13 PO 0852 Azithromycin 500 MG ONCE ONE 06/12 1730 DC 06/12 Sodium Chloride 250 ML IV 06/12 1829 1742 Azithromycin 250 MG DAILY 06/12 09 DC 06/12 PO 1248 Carvedilol 12.5 MG BID 06/11 2100 06/13 PO 0852 Ceftazidime 1,000 MG Q12 06/12 2100 AC 06/13 IV 0851 Dextrose 0 .STK-MED ONE 06/12 1611 DC IV Dextrose 25 GM ONCE ONE 06/12 1600 DC 06/12 IV 06/12 1601 1610 Erythromycin 250 MG ONCE ONE 06/12 1700 CAN Sodium Chloride 100 ML IV 06/12 1759 Febuxostat 40 MG DAILY 06/12 0900 AC 06/13 PO 0852 Ferrous Sulfate 325 MG DAILY 06/12 0900 AC 06/13 PO 0852 Gabapentin 400 MG TID 06/11 2100 AC 06/13 PO 0852 Guaifenesin 600 MG Q12 06/11 2100 AC 06/13 PO 0852 Hydroxyzine HCl 50 MG BID 06/12 2100 DC PO Hydroxyzine HCl 25 MG BID PRN 06/12 1830 AC PO Hydroxyzine HCl 10 MG BID 06/11 2145 AC 06/13 PO 0852 Insulin Aspart 0 TIDAC 06/11 1700 DC 06/12 SC 0838 Insulin Human Regular 0 .STK-MED ONE 06/13 0545 DC .ROUTE Insulin Human Regular 0 .STK-MED ONE 06/13 0027 DC .ROUTE Insulin Human Regular 0 .STK-MED ONE 06/12 1853 DC .ROUTE Insulin Human Regular 0 Q6 06/12 1813 AC 06/13 SC 0546 Insulin Human Regular 0 .STK-MED ONE 06/12 1609 DC .ROUTE Insulin Human Regular 10 UNITS ONCE ONE 06/12 1600 DC 06/12 IV 06/12 1601 1610 Ketamine HCl 0 .STK-MED ONE 06/12 1813 DC .ROUTE Methylprednisolone 40 MG DAILY 06/14 0900 AC IV Methylprednisolone 60 MG DAILY 06/13 0900 DC 06/13 IV 0851 Methylprednisolone 40 MG Q8 06/12 2200 CAN IV Methylprednisolone 40 MG Q8 06/11 2200 DC 06/12 IV 1341 Metoclopramide HCl 10 MG ONCE ONE 06/12 1700 DC 06/12 IV 06/12 1701 1740 Pantoprazole Sodium 40 MG Q5H 06/13 0600 AC Sodium Chloride 100 ML IV Pantoprazole Sodium 40 MG BID 06/12 2100 CAN IV Pantoprazole Sodium 40 MG BID 06/12 2100 DC 06/12 IV 2200 Pantoprazole Sodium 40 MG Q5H 06/12 1100 DC 06/12 Sodium Chloride 100 ML IV 1249 Pantoprazole Sodium 80 MG ONCE ONE 06/12 1100 DC 06/12 IV 06/12 1101 1248 Sodium Chloride 500 ML .Q5H 06/12 1145 AC 06/13 IV 0536 Impression/Plan Impression/Problem List Impression: The patient is a 63 year old gentleman with above-mentioned past medical history was been transferred from general medicine floor to ICU for management of acute lower GI bleed He is currently being treated and evaluated for following conditions #Acute blood loss anemia secondary to bleeding gastric ulcer Patient had upper EGD yesterday which showed bleeding gastric ulcer, bleeding vessel was injected with epinephrine in addition to clipping. Patient received 3 units PRBCs, his H&H are stable posttransfusion 06/18 Patient received 4 units of FFP History of Motrin and naproxen last week -NPO, patient gets agitated will only give him limited amount of ice chips -Going to attempt to obtain to 2 large bore IV access. -Q6 CBCs will transfuse to maintain H/H 06/18 -DC IV Protonix drip -Start IV Protonix 40 twice daily Patient must receive IV PPI for 72 hours after acute GI bleed After that the patient will need to be maintained on high-dose PPI for the remaining of his life If no bleeding will resume antithrombotic agents in the a.m. Patient will need follow-up EGD in 8 weeks to assess healing of gastric ulcer with possible biopsy to rule out malignancy -Keep holding Eliquis -Avoid NSAIDs -DVT prophylaxis only with ALPS -GI recommendation appreciated -Reconsult GI immediately if there is any sign of hemodynamic instability, active bleeding or dropping in H&H #Acute on chronic hypercapnic respiratory failure (COPD exacerbation, obstructive sleep apnea noncompliant with CPAP) -Maintain oxygen saturation above 92% -Continue BiPAP overnight -TRC -Follow sputum culture -Decrease IV Solu-Medrol to 40 mg daily Continue IV ceftaz #LISETTE, CKD stage III/IV Creatinine improving-1.4 Most likely due to poor oral intake and Elevated BUN in setting of GI bleed -Monitor creatinine curve -Avoid nephrotoxins #Hyperkalemia Improved today potassium is 5.1 -No EKG changes observed -Avoid Kayexalate in setting of active GI bleed Continue to monitor #History of hypertension All antihypertensive on hold in setting of GI bleed and borderline blood pressure #History of CHFrEF, ischemic cardiomyopathy Patient has ejection fraction of only 25-30%. Has been transfused RBCs, currently running on maintenance fluid 75 mL/h AICD had to be turned it off and then back on during the EGD yesterday Cardiology consult appreciated because AICD might need to be interrogated as per GI recommendation. -Monitor For volume overload -EKG and troponin #History of atrial fibrillation -Eliquis on hold -Patient received amiodarone in the morning, repeat EKG in am for QTC prolongation, will dc for now, resume if recommended by cardiology #History of diabetes mellitus -Insulin sliding scale NPO full liqid /DVT prophylaxis with Alps only DVT has been ruled out/full code Problem List: 1. COPD with acute exacerbation 2. CHF exacerbation 3. LISETTE (acute kidney injury) 4. Bleeding gastric ulcer 5. Acute blood loss anemia Pain Ratin Tomorrow's Labs & Rationales: CBC ICU bundle Plan DVT/Prophylaxis: mechanical
--- NOTE | 2018-06-13 09:27 | PN- CRCU ---
Subjective HPI/Critical Care Issues: Doing better Did have an endoscopy Does have a large gastric ulcer with a visible vessel noted Wishes to eat No chest pain or abdominal discomfort No further melena noted Significant data his creatinine down to 1.8 Potassium 5.7 anion gap is improved baseline bicarb is improved his LFTs were unremarkable last A1c was 6.4 White count 11.6 yesterday hemoglobin now stable at 8 no significant left shift culture so far unremarkable with the patient does have copious amount of sputum No DVT noted in his right upper extremity Patient is status post 3 units of PRBC Objective Current Medications: Current Medications Sig/Keaton Start time Last Medication Dose Route Stop Time Status Admin Acetaminophen 1,000 MG Q6P PRN 06/11 1445 AC 06/12 IV 0839 Albuterol Sulfate 3 ML TID 06/11 2100 AC 06/13 INH 0824 Amiodarone HCl 200 MG DAILY 06/12 09 DC 06/12 PO 0839 Anti-Inhibitor 4,000 UNIT ONCE ONE 06/12 1315 DC 06/12 Coagulant Complex IV 06/12 1334 1342 Sterile Water 160 ML Apixaban 5 MG BID 06/11 2100 DC 06/12 PO 0839 Atorvastatin Calcium 10 MG DAILY 06/12 900 AC 06/13 PO 0852 Azithromycin 500 MG ONCE ONE 06/12 1730 DC 06/12 Sodium Chloride 250 ML IV 06/12 1829 1742 Azithromycin 250 MG DAILY 06/12 09 DC 06/12 PO 1248 Carvedilol 12.5 MG BID 06/11 2100 AC 06/13 PO 0852 Ceftazidime 1,000 MG Q12 06/12 2100 AC 06/13 IV 0851 Dextrose 0 .STK-MED ONE 06/12 1611 DC IV Dextrose 25 GM ONCE ONE 06/12 1600 DC 06/12 IV 06/12 1601 1610 Erythromycin 250 MG ONCE ONE 06/12 1700 CAN Sodium Chloride 100 ML IV 06/12 1759 Febuxostat 40 MG DAILY 06/12 900 AC 06/13 PO 0852 Ferrous Sulfate 325 MG DAILY 06/12 900 AC 06/13 PO 0852 Gabapentin 400 MG TID 06/11 2100 AC 06/13 PO 0852 Guaifenesin 600 MG Q12 06/11 2100 AC 06/13 PO 0852 Hydroxyzine HCl 50 MG BID 06/12 2100 DC PO Hydroxyzine HCl 25 MG BID PRN 06/12 1830 AC PO Hydroxyzine HCl 100 MG BID 06/12 0845 DC 06/12 PO 0838 Hydroxyzine HCl 10 MG BID 06/11 2145 AC 06/13 PO 0852 Insulin Aspart 0 TIDAC 06/11 1700 DC 06/12 SC 0838 Insulin Human Regular 0 .STK-MED ONE 06/13 0545 DC .ROUTE Insulin Human Regular 0 .STK-MED ONE 06/13 0027 DC .ROUTE Insulin Human Regular 0 .STK-MED ONE 06/12 1853 DC .ROUTE Insulin Human Regular 0 Q6 06/12 1813 AC 06/13 SC 0546 Insulin Human Regular 0 .STK-MED ONE 06/12 1609 DC .ROUTE Insulin Human Regular 10 UNITS ONCE ONE 06/12 1600 DC 06/12 IV 06/12 1601 1610 Ketamine HCl 0 .STK-MED ONE 06/12 1813 DC .ROUTE Methylprednisolone 60 MG DAILY 06/13 0900 AC 06/13 IV 0851 Methylprednisolone 40 MG Q8 06/12 2200 CAN IV Methylprednisolone 40 MG Q8 06/11 2200 DC 06/12 IV 1341 Metoclopramide HCl 10 MG ONCE ONE 06/12 1700 DC 06/12 IV 06/12 1701 1740 Pantoprazole Sodium 40 MG Q5H 06/13 0600 AC Sodium Chloride 100 ML IV Pantoprazole Sodium 40 MG BID 06/12 2100 CAN IV Pantoprazole Sodium 40 MG BID 06/12 2100 DC 06/12 IV 2200 Pantoprazole Sodium 40 MG Q5H 06/12 1100 DC 06/12 Sodium Chloride 100 ML IV 1249 Pantoprazole Sodium 80 MG ONCE ONE 06/12 1100 DC 06/12 IV 06/12 1101 1248 Sodium Chloride 500 ML .Q5H 06/12 1145 AC 06/13 IV 0536 Vital Signs & I&O Last 24 Hrs of Vitals and I&O: Vital Signs Date Time Temp Pulse Resp B/P B/P Pulse O2 O2 Flow FiO2 Mean Ox Delivery Rate 06/13 0854 98 Nasal 5.0L Cannula 06/13 0852 76 126/80 06/13 0400 96 Nasal 3.5L Cannula 06/13 0038 79 98 06/13 0000 99 Nasal 3.5L Cannula 06/13 0000 97.6 74 18 136/80 99 Nasal 3.5L Cannula 06/12 2000 89 Nasal 3.5L Cannula 06/12 1600 95 Nasal 3.0L Cannula 06/12 1600 97.8 76 20 100/58 95 Nasal 3.0L Cannula 06/12 1224 98.2 76 20 84/50 95 Nasal 3.5L Cannula 06/12 1135 90/60 06/12 1132 98.8 76 20 90/60 93 Nasal 3.5L Cannula 06/12 0953 95 Nasal 3.5L Cannula Intake & Output 06/13 1600 06/13 0800 06/13 0000 Intake Total 1100 2235 Output Total 1475 1100 Balance -375 1135 Intake, Blood 350 650 Product Intake, IV 750 1585 Number 1 Bowel Movements Output, Urine 1475 1100 Impression/Plan Impression/Plan Impression/Plan: Findings: 1. Gastric ulcer with visible vessel 2. Diffuse Gastritis General Appearance: alert, awake, moderate distress, morbidly obese Head: atraumatic, normal appearance Eyes: Bilateral: normal appearance. Ears, Nose, Throat: hearing grossly normal Neck: supple, full range of motion Respiratory: breath sounds are hyper-resonant Cardiovascular: distant heart sounds, regular Gastrointestinal: normal bowel sounds, soft, non-tender Rectal: deferred, patient in chair Extremities: pedal edema, swelling Neurologic/Psych: awake, alert, oriented x 3, patient is [place] Cranial Nerves: cranial nerves II-XII grossly intact Skin: intact, normal color, warm/dry 63 year old male with a past medical history significant for HFrEF (25-30%) nonischemic cardiomyopathy s/p dual chamber PPM/AICD, oxygen dependent COPD on 3.5 L baseline, obstructive sleep apnea not on CPAP, DM, CKD Stage , HLD, GERD/ PUD, chronic lower extremity edema with venous stasis changes, gout s/p left foot debridement, and multiple admissions for dyspnea secondary to COPD/CHF exacerbation presents with similar complaints of worsening dyspnea with arm swelling now with sig GI bleed, gastric ulcer with no visible bleeding vessel Issues * Resolving SIg Gi bleed due gastric ulcer with a visible bleeding vessel, diffuse gastritis with melena in a gentleman with recent nsaid use, prior PUD * Significant blood loss anemia /was on Eliquis still last evening s/p K-Centra, 3 units Prbc and appears to be hemodynamically stable * Chronic hypercarbic resp failure with copd and jory with noncompliance of bipap , appears stable * COPDE now with sig sputum - colonization prob versus active infection * Severe Ischemic cardiomyopathy with Low ef with high risk for fluid overload/ patient has AICD was on amiodarone up until now * Atrial fibrillation was on anticoag/Eliquis which is now held due to GI bleed * JORY noncompliant * History of gout * Upper ext swelling no sig dvt noted by ultrasound * Chronic nsaid use/on factor x inhibitor * Acute kidney injury with ckd stage 2-3 no improving REC Cont current care/proton pump inhibitor, follow GI note Check hemoglobin every 6 hours Pt has low ef and MAP goal should be 60 mm hg Change to IV Solu-Medrol 40 mg daily Bipap if tolerated at bedtime Continue ceftaz was eventually changed to p.o. Cipro NPO FGG and sliding scale Mean arterial pressure goal should be 60 Ekg and troponin regularly/cardiology to see to see whether amiodarone needs to be continued etc. patient does have AICD Pt does not wish prolonged intubatin etc and wishes mainly conservative rx - full code for now Critically ill tts 39 mins
[2018-06-13 12:00] VITALS: BP 122/80
--- NOTE | 2018-06-13 12:01 | RADIOLOGY REPORT ---
EXAMINATION: XR PORTABLE CHEST CLINICAL INFORMATION: Congestive heart failure. COMPARISON: Several priors. Most recent out of 06/11/18. TECHNIQUE: Portable frontal view of the chest was obtained. FINDINGS: The left subclavian triple lead transvenous pacemaker remains in place. The leads are difficult to identify. Pulmonary edema seen on the prior examination has improved. There is stable marked enlargement the cardiac silhouette. There is bibasilar opacity consistent with atelectasis. IMPRESSION: Stable enlargement the cardiac silhouette. Interval improvement of pulmonary edema. Bibasilar opacity consistent with atelectasis.
[2018-06-13 12:08] LABS: ABSOLUTE BASOPHIL COUNT 0 /CUMM (0.0-0.2); ABSOLUTE EOSINOPHIL COUNT 0 /CUMM (0.0-0.7); ABSOLUTE GRANULOCYTE CT 8.4 /CUMM (1.4-6.5); ABSOLUTE LYMPH COUNT 1.3 /CUMM (1.2-3.4); ABSOLUTE MONOCYTE COUNT 0.6 /CUMM (0.10-0.60); BASOPHIL % 0.2 % (0.0-2.0); EOSINOPHIL % 0.1 % (0-5); GRANULOCYTE % 81.2 % (42.2-75.2); HEMATOCRIT 24.7 % (42-52); MEAN CORPUSCULAR HGB 27.7 PG (27.0-31.0); MEAN CORPUSCULAR HGB CONC 32.9 G/DL (33.0-37.0); MEAN CORPUSCULAR VOLUME 84.2 FL (80.0-94.0); MEAN PLATELET VOLUME 6.5 FL (7.4-10.4); PLATELET COUNT 255 /CUMM (130-400); RBC DISTRIBUTION WIDTH 15.4 % (11.5-14.5); RED BLOOD CELL CT 2.94 /CUMM (4.70-6.10); WHITE BLOOD CELL COUNT 10.4 /CUMM (4.8-10.8)
--- NOTE | 2018-06-13 15:41 | PN- Gastroenterology ---
Assessment/Plan GI Assessment/Recommendations: ASSESSMENT: 1. Hypotension --now resolved. Patient has maintained adequate blood pressure after transfusion. 2. Acute Blood Loss Anemia --no further signs of GI blood loss. H&H is stable. 3. Gastric Ulcer with visible vessel status post injection epinephrine, electrocautery, and placement Endo Clip. 5. Chronic Use of Antithrombotic Agents 6. Chronic Use of NSAIDs 7. COPD 8. Ischemic Cardiomyopathy 9. Acute Renal Failure --improving with hydration and transfusion. RECOMMENDATIONS: 1. Advance diet gradually. Patient may have full liquids today and if tolerated mechanical soft tomorrow. 2. Strict I/O 3. 2 large bore IV 4. Protonix may be changed to 40 mg IV twice daily. He must receive IV PPI for at least 72 hours in the setting of acute GI bleed 5. Serial H/H may be discontinued in a.m. 6. Would resume antithrombotic agent in a.m. if no further signs of bleeding. However patient must be instructed that he is not to take NSAIDs. He will need to be on a PPI, high dose, for the remainder of his life especially as long as he takes antithrombotic agents. 7. He will need repeat EGD in 8 weeks to assess healing of gastric ulcer. Will also need biopsy to rule out malignancy. Subjective Subjective: Patient with no melena nor hematemesis overnight. Is feeling better and eager to eat. Tolerated clear liquids. Discussed with patient findings of EGD and interventions that were needed for control of bleeding (injection epinephrine, thermal energy, Endo Clip). All questions were answered. Patient feels much better than on admission. Review of Systems Constitutional: Reports: no symptoms. Cardiovascular: Denies: chest pain, palpitations. Respiratory: Denies: short of breath. Objective Vital Signs and I&Os Vital Signs Date Time Temp Pulse Resp B/P B/P Pulse O2 O2 Flow FiO2 Mean Ox Delivery Rate 06/13 1423 98 Nasal 3.5L Cannula 06/13 1200 98 Nasal 4.0L Cannula 06/13 1200 97.2 75 22 122/80 98 Nasal 4.0L Cannula 06/13 0854 98 Nasal 5.0L Cannula 06/13 0852 76 126/80 06/13 0800 98 Nasal 5.0L Cannula 06/13 0400 96 Nasal 3.5L Cannula 06/13 0038 79 98 06/13 0000 99 Nasal 3.5L Cannula 06/13 0000 97.6 74 18 136/80 99 Nasal 3.5L Cannula 06/12 2000 89 Nasal 3.5L Cannula 06/12 1600 95 Nasal 3.0L Cannula 06/12 1600 97.8 76 20 100/58 95 Nasal 3.0L Cannula Intake & Output 06/13 1600 06/13 0400 06/12 1600 06/12 0400 06/11 1600 06/11 0400 Intake Total 2982 2235 1135 900 0 Output Total 3325 1100 2100 Balance -343 1135 -965 900 0 Intake, Blood 350 650 Product Intake, IV 1672 1585 455 300 Intake, Oral 960 680 600 0 Number 0 1 3 Bowel Movements Output, Urine 3325 1100 2100 Patient 380 lb 380 lb Weight Physical Exam General Appearance: alert, awake, comfortable Respiratory: lungs clear Cardiovascular: regular rate/rhythm Abdomen: normal bowel sounds, soft, non-tender Neurologic/Psychiatric: alert, oriented x 3 Current Medications: Current Medications Sig/Keaton Start time Last Medication Dose Route Stop Time Status Admin Acetaminophen 500 MG Q6P PRN 06/13 1530 AC PO Acetaminophen 1,000 MG Q6P PRN 06/11 1445 DC 06/12 IV 0839 Albuterol Sulfate 3 ML TID 06/11 2100 AC 06/13 INH 1352 Amiodarone HCl 200 MG DAILY 06/12 09 DC 06/12 PO 0839 Atorvastatin Calcium 10 MG DAILY 06/12 09 AC 06/13 PO 0852 Azithromycin 500 MG ONCE ONE 06/12 1730 DC 06/12 Sodium Chloride 250 ML IV 06/12 1829 1742 Azithromycin 250 MG DAILY 06/12 0900 DC 06/12 PO 1248 Carvedilol 12.5 MG BID 06/11 2100 AC 06/13 PO 0852 Ceftazidime 1,000 MG Q12 06/12 2100 AC 06/13 IV 0851 Dextrose 0 .STK-MED ONE 06/12 1611 DC IV Dextrose 25 GM ONCE ONE 06/12 1600 DC 06/12 IV 06/12 1601 1610 Erythromycin 250 MG ONCE ONE 06/12 1700 CAN Sodium Chloride 100 ML IV 06/12 1759 Febuxostat 40 MG DAILY 06/12 0900 AC 06/13 PO 0852 Ferrous Sulfate 325 MG DAILY 06/12 09 AC 06/13 PO 0852 Gabapentin 400 MG TID 06/11 2100 AC 06/13 PO 1509 Guaifenesin 600 MG Q12 06/11 2100 AC 06/13 PO 0852 Hydroxyzine HCl 50 MG BID 06/12 2100 DC PO Hydroxyzine HCl 25 MG BID PRN 06/12 1830 AC PO Hydroxyzine HCl 10 MG BID 06/11 2145 AC 06/13 PO 0852 Insulin Aspart 0 TIDAC 06/13 1700 AC SC Insulin Aspart 0 TIDAC 06/11 1700 DC 06/12 SC 0838 Insulin Human Regular 0 .STK-MED ONE 06/13 0545 DC .ROUTE Insulin Human Regular 0 .STK-MED ONE 06/13 0027 DC .ROUTE Insulin Human Regular 0 .STK-MED ONE 06/12 1853 DC .ROUTE Insulin Human Regular 0 Q6 06/12 1813 DC 06/13 SC 1214 Insulin Human Regular 0 .STK-MED ONE 06/12 1609 DC .ROUTE Insulin Human Regular 10 UNITS ONCE ONE 06/12 1600 DC 06/12 IV 06/12 1601 1610 Ketamine HCl 0 .STK-MED ONE 06/12 1813 DC .ROUTE Methylprednisolone 40 MG DAILY 06/14 0900 AC IV Methylprednisolone 60 MG DAILY 06/13 0900 DC 06/13 IV 0851 Methylprednisolone 40 MG Q8 06/12 2200 CAN IV Methylprednisolone 40 MG Q8 06/11 2200 DC 06/12 IV 1341 Metoclopramide HCl 10 MG ONCE ONE 06/12 1700 DC 06/12 IV 06/12 1701 1740 Oxycodone/ 2 TAB ONCE PRN 06/13 1530 AC Acetaminophen PO 06/13 2300 Oxycodone/ 1 TAB ONCE ONE 06/13 1100 DC 06/13 Acetaminophen PO 06/13 1101 1108 Pantoprazole Sodium 40 MG Q5H 06/13 0600 AC 06/13 Sodium Chloride 100 ML IV 1105 Pantoprazole Sodium 40 MG BID 06/12 2100 DC 06/12 IV 2200 Sodium Chloride 500 ML .Q5H 06/12 1145 AC 06/13 IV 1105 Results Pertinent Lab Results: Laboratory Tests 06/13 06/13 06/13 1400 1115 1110 Chemistry Troponin I (<0.11 ng/ml) 0.03 Hematology CBC w Diff Cancelled NO MAN DIFF REQ WBC (4.8 - 10.8 /CUMM) Cancelled 10.4 RBC (4.70 - 6.10 /CUMM) Cancelled 2.94 L Hgb (14.0 - 18.0 G/DL) Cancelled 8.1 L Hct (42 - 52 %) Cancelled 24.7 L MCV (80.0 - 94.0 FL) Cancelled 84.2 MCH (27.0 - 31.0 PG) Cancelled 27.7 MCHC (33.0 - 37.0 G/DL) Cancelled 32.9 L RDW (11.5 - 14.5 %) Cancelled 15.4 H Plt Count (130 - 400 /CUMM) Cancelled 255 MPV (7.4 - 10.4 FL) Cancelled 6.5 L Gran % (42.2 - 75.2 %) 81.2 H Lymphocytes % (20.5 - 51.1 %) 12.9 L Monocytes % (1.7 - 9.3 %) 5.6 Eosinophils % (0 - 5 %) 0.1 Basophils % (0.0 - 2.0 %) 0.2 Absolute Granulocytes (1.4 - 6.5 /CUMM) 8.4 H Absolute Lymphocytes (1.2 - 3.4 /CUMM) 1.3 Absolute Monocytes (0.10 - 0.60 /CUMM) 0.6 Absolute Eosinophils (0.0 - 0.7 /CUMM) 0 Absolute Basophils (0.0 - 0.2 /CUMM) 0 06/13 06/13 06/12 0824 0230 2200 Chemistry Sodium (137 - 145 mmol/L) 141 Potassium (3.5 - 5.1 mmol/L) 5.1 Chloride (98 - 107 mmol/L) 104 Carbon Dioxide (22 - 30 mmol/L) 31 H Anion Gap (5 - 16) 7 BUN (9 - 20 mg/dL) 56 H Creatinine (0.7 - 1.2 mg/dL) 1.4 H Estimated GFR (>60 ml/min) 52 L Glucose (65 - 99 mg/dL) 161 H Calcium (8.4 - 10.2 mg/dL) 8.8 Phosphorus (2.5 - 4.5 mg/dL) 3.2 Magnesium (1.6 - 2.3 mg/dL) 2.0 Total Bilirubin (0.2 - 1.3 mg/dL) 0.3 AST (17 - 59 U/L) 10 L ALT (21 - 72 U/L) 22 Troponin I (<0.11 ng/ml) 0.03 Albumin (3.5 - 5.0 g/dL) 2.9 L Hematology CBC w Diff NO MAN DIFF REQ Cancelled WBC (4.8 - 10.8 /CUMM) 11.6 H Cancelled RBC (4.70 - 6.10 /CUMM) 2.89 L Cancelled Hgb (14.0 - 18.0 G/DL) 8.0 L Cancelled Hct (42 - 52 %) 24.4 L Cancelled MCV (80.0 - 94.0 FL) 84.4 Cancelled MCH (27.0 - 31.0 PG) 27.7 Cancelled MCHC (33.0 - 37.0 G/DL) 32.9 L Cancelled RDW (11.5 - 14.5 %) 15.1 H Cancelled Plt Count (130 - 400 /CUMM) 254 Cancelled MPV (7.4 - 10.4 FL) 6.4 L Cancelled Gran % (42.2 - 75.2 %) 78.4 H Lymphocytes % (20.5 - 51.1 %) 14.0 L Monocytes % (1.7 - 9.3 %) 7.0 Eosinophils % (0 - 5 %) 0 Basophils % (0.0 - 2.0 %) 0.6 Absolute Granulocytes (1.4 - 6.5 /CUMM) 9.1 H Absolute Lymphocytes (1.2 - 3.4 /CUMM) 1.6 Absolute Monocytes (0.10 - 0.60 /CUMM) 0.8 H Absolute Eosinophils (0.0 - 0.7 /CUMM) 0 Absolute Basophils (0.0 - 0.2 /CUMM) 0.1 06/129 1830 Chemistry Sodium (137 - 145 mmol/L) 138 Potassium (3.5 - 5.1 mmol/L) 5.7 H Chloride (98 - 107 mmol/L) 98 Carbon Dioxide (22 - 30 mmol/L) 31 H Anion Gap (5 - 16) 9 BUN (9 - 20 mg/dL) 68 H Creatinine (0.7 - 1.2 mg/dL) 1.8 H Estimated GFR (>60 ml/min) 39 L Glucose (65 - 99 mg/dL) 173 H Calcium (8.4 - 10.2 mg/dL) 8.9 Phosphorus (2.5 - 4.5 mg/dL) 2.5 Magnesium (1.6 - 2.3 mg/dL) 1.8 Total Bilirubin (0.2 - 1.3 mg/dL) 0.6 AST (17 - 59 U/L) 12 L ALT (21 - 72 U/L) 21 Troponin I (<0.11 ng/ml) 0.04 Albumin (3.5 - 5.0 g/dL) 3.0 L Hematology CBC w Diff NO MAN DIFF REQ NO MAN DIFF REQ WBC (4.8 - 10.8 /CUMM) 12.3 H 13.3 H RBC (4.70 - 6.10 /CUMM) 2.87 L 3.13 L Hgb (14.0 - 18.0 G/DL) 7.9 L 8.6 L Hct (42 - 52 %) 24.1 L 26.1 L MCV (80.0 - 94.0 FL) 83.9 83.2 MCH (27.0 - 31.0 PG) 27.5 27.5 MCHC (33.0 - 37.0 G/DL) 32.8 L 33.0 RDW (11.5 - 14.5 %) 15.3 H 15.5 H Plt Count (130 - 400 /CUMM) 270 269 MPV (7.4 - 10.4 FL) 6.5 L 6.9 L Gran % (42.2 - 75.2 %) 81.3 H 81.6 H Lymphocytes % (20.5 - 51.1 %) 13.6 L 13.4 L Monocytes % (1.7 - 9.3 %) 4.6 4.7 Eosinophils % (0 - 5 %) 0 0 Basophils % (0.0 - 2.0 %) 0.5 0.3 Absolute Granulocytes (1.4 - 6.5 /CUMM) 10.0 H 10.8 H Absolute Lymphocytes (1.2 - 3.4 /CUMM) 1.7 1.8 Absolute Monocytes (0.10 - 0.60 /CUMM) 0.6 0.6 Absolute Eosinophils (0.0 - 0.7 /CUMM) 0 0 Absolute Basophils (0.0 - 0.2 /CUMM) 0.1 0 06/12 06/12 06/12 1800 1331 1315 Chemistry Sodium (137 - 145 mmol/L) 134 L Potassium (3.5 - 5.1 mmol/L) 5.5 H Chloride (98 - 107 mmol/L) 95 L Carbon Dioxide (22 - 30 mmol/L) 33 H Anion Gap (5 - 16) 6 BUN (9 - 20 mg/dL) 56 H Creatinine (0.7 - 1.2 mg/dL) 2.1 H Estimated GFR (>60 ml/min) 32 L Glucose (65 - 99 mg/dL) 190 H Calcium (8.4 - 10.2 mg/dL) 8.5 Phosphorus (2.5 - 4.5 mg/dL) 2.6 Magnesium (1.6 - 2.3 mg/dL) 1.7 Total Bilirubin (0.2 - 1.3 mg/dL) 0.5 AST (17 - 59 U/L) 11 L ALT (21 - 72 U/L) 25 Troponin I (<0.11 ng/ml) 0.03 Albumin (3.5 - 5.0 g/dL) 2.7 L Coagulation PT (9.4 - 12.5 SEC) 18.7 H INR (0.90 - 1.17) 1.71 H APTT (25 - 37 SEC) 28 Hematology CBC w Diff Cancelled Cancelled NO MAN DIFF REQ WBC (4.8 - 10.8 /CUMM) Cancelled Cancelled 12.6 H RBC (4.70 - 6.10 /CUMM) Cancelled Cancelled 2.59 L Hgb (14.0 - 18.0 G/DL) Cancelled Cancelled 7.1 *L Hct (42 - 52 %) Cancelled Cancelled 21.6 L MCV (80.0 - 94.0 FL) Cancelled Cancelled 83.3 MCH (27.0 - 31.0 PG) Cancelled Cancelled 27.2 MCHC (33.0 - 37.0 G/DL) Cancelled Cancelled 32.7 L RDW (11.5 - 14.5 %) Cancelled Cancelled 15.7 H Plt Count (130 - 400 /CUMM) Cancelled Cancelled 263 MPV (7.4 - 10.4 FL) Cancelled Cancelled 6.8 L Gran % (42.2 - 75.2 %) 81.5 H Lymphocytes % (20.5 - 51.1 %) 12.9 L Monocytes % (1.7 - 9.3 %) 5.4 Eosinophils % (0 - 5 %) 0 Basophils % (0.0 - 2.0 %) 0.2 Absolute Granulocytes (1.4 - 6.5 /CUMM) 10.2 H Absolute Lymphocytes (1.2 - 3.4 /CUMM) 1.6 Absolute Monocytes (0.10 - 0.60 /CUMM) 0.7 H Absolute Eosinophils (0.0 - 0.7 /CUMM) 0 Absolute Basophils (0.0 - 0.2 /CUMM) 0 06/12 06/11 06/11 0222 1957 1840 Chemistry Sodium (137 - 145 mmol/L) Cancelled 137 Potassium (3.5 - 5.1 mmol/L) Cancelled 4.9 Chloride (98 - 107 mmol/L) Cancelled 94 L Carbon Dioxide (22 - 30 mmol/L) Cancelled 34 H Anion Gap (5 - 16) Cancelled 9 BUN (9 - 20 mg/dL) Cancelled 29 H Creatinine (0.7 - 1.2 mg/dL) Cancelled 3.1 H Estimated GFR (>60 ml/min) 21 L BUN/Creatinine Ratio (7 - 25 %) Cancelled 9.4 Troponin I (<0.11 ng/ml) 0.04 Urines Urinalysis MOD H Urine Color (YEL,AMB,STR) YEL Urine Clarity (CLEAR) CLEAR Urine pH (5.0 - 8.0) 6.0 Ur Specific Lawrence (1.001 - 1.035) >= 1.030 Urine Protein (NEG,<30 MG/DL) TRACE H Urine Ketones (NEG) NEG Urine Nitrite (NEG) NEG Urine Bilirubin (NEG) NEG Urine Urobilinogen (0.1 - 1.0 EU/dl) 0.2 Ur Leukocyte Esterase (NEG) NEG Ur Microscopic SEDIMENT EXAMINED Urine WBC (0 - 2 /HPF) RARE Ur Epithelial Cells (NONE,FEW) FEW Urine Bacteria (NEG/NONE) MANY H Urine Hemoglobin (NEG) NEG Urine Glucose (N MG/DL) NEG 06/11 06/11 1513 1250 Blood Gas pH (7.35 - 7.45 PH) 7.29 *L pCO2 (35 - 45 TORR) 70 *H pO2 (80 - 100 TORR) 87 HCO3 (21 - 28 MEQ/L) 33 H ABG O2 Sat (Measured) (>96.0 %) 96.0 Carboxyhemoglobin (1.5 - 5.0 %) 1.2 L O2 Concentration % 3L O2 Delivery Method NC Chemistry Lactic Acid Cancelled Miscellaneous Phlebotomy Draw Site RIGHT RADIAL 06/11 06/11 1230 1213 Chemistry Sodium (137 - 145 mmol/L) 139 Potassium (3.5 - 5.1 mmol/L) 4.6 Chloride (98 - 107 mmol/L) 95 L Carbon Dioxide (22 - 30 mmol/L) 36 H Anion Gap (5 - 16) 8 BUN (9 - 20 mg/dL) 29 H Creatinine (0.7 - 1.2 mg/dL) 2.8 H Estimated GFR (>60 ml/min) 23 L BUN/Creatinine Ratio (7 - 25 %) 10.4 Glucose (65 - 99 mg/dL) 87 Lactic Acid (0.7 - 2.1 mmol/L) 1.3 Calcium (8.4 - 10.2 mg/dL) 9.0 Total Bilirubin (0.2 - 1.3 mg/dL) 0.8 AST (17 - 59 U/L) 15 L ALT (21 - 72 U/L) 20 L Alkaline Phosphatase (< 127 U/L) 65 Troponin I (<0.11 ng/ml) 0.03 [id number]-[id number] Pept (<125 pg/mL) 5180 H Total Protein (6.3 - 8.2 g/dL) 6.1 L Albumin (3.5 - 5.0 g/dL) 3.1 L Globulin (1.9 - 4.2 gm/dL) 3.0 Albumin/Globulin Ratio (1.1 - 2.2 %) 1.0 L Hematology CBC w Diff NO MAN DIFF REQ WBC (4.8 - 10.8 /CUMM) 11.6 H RBC (4.70 - 6.10 /CUMM) 3.77 L Hgb (14.0 - 18.0 G/DL) 10.2 L Hct (42 - 52 %) 32.2 L MCV (80.0 - 94.0 FL) 85.4 MCH (27.0 - 31.0 PG) 27.2 MCHC (33.0 - 37.0 G/DL) 31.8 L RDW (11.5 - 14.5 %) 15.9 H Plt Count (130 - 400 /CUMM) 218 MPV (7.4 - 10.4 FL) 6.5 L Gran % (42.2 - 75.2 %) 74.1 Lymphocytes % (20.5 - 51.1 %) 18.7 L Monocytes % (1.7 - 9.3 %) 6.7 Eosinophils % (0 - 5 %) 0.4 Basophils % (0.0 - 2.0 %) 0.1 Absolute Granulocytes (1.4 - 6.5 /CUMM) 8.6 H Absolute Lymphocytes (1.2 - 3.4 /CUMM) 2.2 Absolute Monocytes (0.10 - 0.60 /CUMM) 0.8 H Absolute Eosinophils (0.0 - 0.7 /CUMM) 0 Absolute Basophils (0.0 - 0.2 /CUMM) 0 Urines Urine Color Cancelled Urine Clarity Cancelled Urine pH Cancelled Ur Specific Lawrence Cancelled Urine Protein Cancelled Urine Ketones Cancelled Urine Nitrite Cancelled Urine Bilirubin Cancelled Urine Urobilinogen Cancelled Ur Leukocyte Esterase Cancelled Ur Microscopic Cancelled Urine Hemoglobin Cancelled Urine Glucose Cancelled
[2018-06-13 16:00] VITALS: BP 128/72
[2018-06-13 19:21] LABS: ABSOLUTE BASOPHIL COUNT 0 /CUMM (0.0-0.2); ABSOLUTE EOSINOPHIL COUNT 0 /CUMM (0.0-0.7); ABSOLUTE GRANULOCYTE CT 8.5 /CUMM (1.4-6.5); ABSOLUTE MONOCYTE COUNT 0.5 /CUMM (0.10-0.60); BASOPHIL % 0.2 % (0.0-2.0); EOSINOPHIL % 0 % (0-5); GRANULOCYTE % 84.5 % (42.2-75.2); HEMATOCRIT 24.2 % (42-52); MEAN CORPUSCULAR HGB 27.5 PG (27.0-31.0); MEAN CORPUSCULAR HGB CONC 32.3 G/DL (33.0-37.0); MEAN CORPUSCULAR VOLUME 85.1 FL (80.0-94.0); MEAN PLATELET VOLUME 6.3 FL (7.4-10.4); PLATELET COUNT 263 /CUMM (130-400); RBC DISTRIBUTION WIDTH 15.9 % (11.5-14.5); RED BLOOD CELL CT 2.85 /CUMM (4.70-6.10)
--- NOTE | 2018-06-13 21:21 | Cons- Cardiology ---
General Information and HPI Consulting Request Date of Consult: 06/13/18 Requested By: Kinsey Marte MD History of Present Illness: Mr. Padilla is a 63 is a 63 year old male with history of dyslipidemia, diabetes, renal insufficiency and ischemia cardiomyopathy. He is obese and has COPD on home oxygen and has obstructive sleep apnea. His ejection fraction is known to be moderately decreased to 25-30%. Finally this patiebt has an AICD. The patient presented with shortness of breath beyond baseline, profound weakness and fatigue and lightheadedness. While in the hospital the patient had a bowel movement with copious blood with melena. His blood pressure was transiently low and he required blood transfusion. He otherwise denies chest discomfort or significant palpitaitons beyond baseline. The patient was subsequently discovered to have worsening renal insufficiency and anemia. The patient is now status post endoscopy which disclosed a gastric ulcer. Allergies/Medications Allergies: Coded Allergies: No Known Allergies (01/08/18) Home Med List: Acetaminophen 500 MG TABLET 1 TAB PO DAILY PRN PAIN PLEASE ALTERNATE WITH NAPROXEN FOR PAIN Albuterol Sulfate (Proair Hfa) 90 MCG HFA.AER.AD 2 PUF INH Q4-6 PRN PRN COPD (Reported) Amiodarone (Cordarone) 200 MG TAB 1 TAB PO DAILY HEART RATE Ammonium Lactate 12 % CREAM..G. 12 % TP BID foot fissures . Apixaban (Eliquis) 5 MG TABLET 1 TAB PO BID AFIB Atorvastatin Calcium 10 MG TABLET 1 TAB PO DAILY CHOLESTEROL Carvedilol (Coreg) 25 MG TABLET 0.5 TAB PO BID HIGH BLOOD PRESSURE (Reported) Dicyclomine HCl 10 MG CAPSULE 1 CAP PO TID ABDOMINAL PAIN Febuxostat (Uloric) 40 MG TABLET 40 MG PO DAILY Gout Ferrous Sulfate 325 MG (65 MG IRON) TABLET 1 TAB PO DAILY anemia Fluticasone/Salmeterol (Advair 500-50 Diskus) 500 MCG-50 MCG/DOSE BLST.W.DEV 1 PUF INH BID COPD (Reported) Furosemide (Lasix) 40 MG TABLET 40 MG PO BID Fluid Overload Gabapentin 400 MG CAPSULE 1 CAP PO TID NEUROPATHY (Reported) Glimepiride 1 MG TABLET 1 TAB PO BID DM (Reported) Guaifenesin (Guaifenesin ER) 600 MG TAB.ER.12H 1 TAB PO BID CONGSETION Hydroxyzine Hydrochloride (Atarax) 50 MG TABLET 2 TAB PO BID MUCUS (Reported) Ipratropium/Albuterol Sulfate (Combivent Respimat Inhal Hobbs) 20 MCG-100 MCG/ ACTUATION MIST.INHAL 2 PUFF INH BID copd (Reported) Losartan Potassium 25 MG TABLET 25 MG PO DAILY heart health . Metformin HCl (Glucophage) 1,000 MG TABLET 1 TAB PO BID DM (Reported) Montelukast Sodium (Singulair) 10 MG TABLET 1 TAB PO BID copd (Reported) Oxymetazoline HCl (Nasal Decongestant) 0.05 % SPRAY 2 SPRAY JOAQUIN BID PRN NASAL CONGESTION Prednisone 10 MG TABLET 1 TAB PO SEE ADMIN CRITERIA COPD 5PILLS-2DAYS,4PILLS-2DAYS,3PILLS-2DAYS, 2PILLS-2DAYS,1PILL-2DAYS,THEN STOP. Sulfamethoxazole/Trimethoprim (Bactrim Ds Tablet) 800 MG-160 MG TABLET 1 TAB PO BID MRSA PNEUMONIA Umeclidinium Sandoval (Incruse Ellipta) 62.5 MCG/ACTUATION BLST.W.DEV 1 PUFF INH DAILY COPD (Reported) Review of Systems Review of Systems: A twelve point review of systems is unremarkable. 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 Psychosocial History Who Do You Live With? self Services at Home: Oxygen Primary Language: German Smoking Status: Never Smoked ETOH Use: occasional use Illicit Drug Use: denies illicit drug use Functional Ability ADLs Independent: dressing, eating, toileting, bathing. Ambulation: independent IADLs Independent: shopping, housework, finances, food prep, telephone, transportation , medication admin. Exam & Diagnostic Data Vital Signs and I&O Vital Signs Date Time Temp Pulse Resp B/P B/P Pulse O2 O2 Flow FiO2 Mean Ox Delivery Rate 06/13 2057 76 125/71 06/13 1600 98 Nasal 4.0L Cannula 06/13 1600 97.4 82 22 128/72 98 Nasal 4.0L Cannula 06/13 1423 98 Nasal 3.5L Cannula 06/13 1200 98 Nasal 4.0L Cannula 06/13 1200 97.2 75 22 122/80 98 Nasal 4.0L Cannula 06/13 0854 98 Nasal 5.0L Cannula 06/13 0852 76 126/80 06/13 0800 98 Nasal 5.0L Cannula 06/13 0400 96 Nasal 3.5L Cannula 06/13 0038 79 98 06/13 0000 99 Nasal 3.5L Cannula 06/13 0000 97.6 74 18 136/80 99 Nasal 3.5L Cannula Intake & Output 06/13 1600 06/13 0800 06/13 0000 06/12 1600 06/12 0800 06/12 0000 Intake Total 1882 1100 2235 445 690 900 Output Total 1850 1475 1100 1000 1100 Balance 32 -375 1135 -555 -410 900 Intake, Blood 350 650 Product Intake, IV 951 793 4247 445 10 300 Intake, Oral 960 0 680 600 Number 0 1 3 Bowel Movements Output, Urine 1850 1475 1100 1000 1100 Patient 380 lb Weight Physical Exam: General: WD/morbidly obese male in NAD; alert and oriented x 3 HEENT: NC/AT, PERRL, EOMI Neck: no discernible JVD Heart: RRR Lungs: clear bilaterally ABdomen: soft, obese, NT, +ve bowel sounds Extremities: 2+ leg edema with venous stasis changes. Assessment/Plan Assessment/Plan * This patient is status post an endoscopy with cautery and a magnet was used over the defibrillator. It is not necessary to interogate the device. * The patient appears to have been transiently hypotensive due to volume loss. I do not see evidence of myocardial ischemia or decompensated CHF. He has a normal troponin. * Creatinine is improved. * Would not overdiurese since he is breathing comfortably at present and it is desireable to avoid a pre-renal state. * Continue to hold Eliquis. Consult Acknowledgment - Thank you for your consult request.
[2018-06-13 23:21] VITALS: BP 138/81
[2018-06-14 00:58] LABS: ABSOLUTE EOSINOPHIL COUNT 0 /CUMM (0.0-0.7); EOSINOPHIL % 0 % (0-5); HEMATOCRIT 23.6 % (42-52); MEAN PLATELET VOLUME 6.8 FL (7.4-10.4); RED BLOOD CELL CT 2.79 /CUMM (4.70-6.10)
[2018-06-14 01:10] LABS: ABSOLUTE BASOPHIL COUNT 0.1 /CUMM (0.0-0.2); ABSOLUTE GRANULOCYTE CT 7.8 /CUMM (1.4-6.5); ABSOLUTE LYMPH COUNT 1.4 /CUMM (1.2-3.4); ABSOLUTE MONOCYTE COUNT 0.9 /CUMM (0.10-0.60); BASOPHIL % 1.1 % (0.0-2.0); GRANULOCYTE % 76.3 % (42.2-75.2); MEAN CORPUSCULAR HGB 27.5 PG (27.0-31.0); MEAN CORPUSCULAR HGB CONC 32.5 G/DL (33.0-37.0); MEAN CORPUSCULAR VOLUME 84.5 FL (80.0-94.0); RBC DISTRIBUTION WIDTH 15.7 % (11.5-14.5); WHITE BLOOD CELL COUNT 10.2 /CUMM (4.8-10.8)
[2018-06-14 01:23] LABS: PLATELET COUNT 128 /CUMM (130-400)
[2018-06-14 05:42] LABS: ABSOLUTE BASOPHIL COUNT 0 /CUMM (0.0-0.2); ABSOLUTE EOSINOPHIL COUNT 0 /CUMM (0.0-0.7); ABSOLUTE GRANULOCYTE CT 9.8 /CUMM (1.4-6.5); BASOPHIL % 0.2 % (0.0-2.0); EOSINOPHIL % 0 % (0-5); WHITE BLOOD CELL COUNT 12.7 /CUMM (4.8-10.8)
[2018-06-14 05:49] LABS: ABSOLUTE LYMPH COUNT 1.7 /CUMM (1.2-3.4); ABSOLUTE MONOCYTE COUNT 1.1 /CUMM (0.10-0.60); GRANULOCYTE % 77.7 % (42.2-75.2); HEMATOCRIT 25.4 % (42-52); MEAN CORPUSCULAR HGB 27.5 PG (27.0-31.0); MEAN CORPUSCULAR HGB CONC 32.5 G/DL (33.0-37.0); MEAN CORPUSCULAR VOLUME 84.5 FL (80.0-94.0); MEAN PLATELET VOLUME 6.2 FL (7.4-10.4); RBC DISTRIBUTION WIDTH 15.7 % (11.5-14.5); RED BLOOD CELL CT 3.01 /CUMM (4.70-6.10)
[2018-06-14 05:50] LABS: PLATELET COUNT 310 /CUMM (130-400)
--- NOTE | 2018-06-14 07:22 | PN- Resident CRCU ---
Subjective HPI/CRCU Issues: #Acute blood loss anemia secondary to bleeding gastric ulcer AV 4 units FFP and 3 units PRBCs #Bleeding gastric ulcer S/P Epi injection and clipping #Acute on chronic hypercapnic respiratory failure (COPD exacerbation, obstructive sleep apnea noncompliant with CPAP) #LISETTE, CKD stage III/IV-improving #Hyperkalemia-improved #History of hypertension #History of CHFrEF, ischemic cardiomyopathy on amiodarone and AICD #History of atrial fibrillation #History of diabetes mellitus 24 Hour Events: No overnight acute events. Patient sitting comfortably in the chair. No events noted on electronic device monitor. QTC appears to be prolonged 520. No more episodes of bloody bowel movements H/H stable, tolerating clear liquids Objective Vital Signs & I&O Last 8 Hrs of Vitals and I&O: Laboratory Tests 06/14 06/14 0515 0030 Chemistry Sodium (137 - 145 mmol/L) 140 Potassium (3.5 - 5.1 mmol/L) 5.4 H Chloride (98 - 107 mmol/L) 103 Carbon Dioxide (22 - 30 mmol/L) 33 H Anion Gap (5 - 16) 5 BUN (9 - 20 mg/dL) 41 H Creatinine (0.7 - 1.2 mg/dL) 1.1 Estimated GFR (>60 ml/min) > 60 Glucose (65 - 99 mg/dL) 162 H Calcium (8.4 - 10.2 mg/dL) 9.0 Phosphorus (2.5 - 4.5 mg/dL) 3.6 Magnesium (1.6 - 2.3 mg/dL) 2.1 Total Bilirubin (0.2 - 1.3 mg/dL) 0.4 AST (17 - 59 U/L) 11 L ALT (21 - 72 U/L) 21 Albumin (3.5 - 5.0 g/dL) 3.2 L Hematology CBC w Diff NO MAN DIFF REQ NO MAN DIFF REQ WBC (4.8 - 10.8 /CUMM) 12.7 H 10.2 RBC (4.70 - 6.10 /CUMM) 3.01 L 2.79 L Hgb (14.0 - 18.0 G/DL) 8.3 L 7.7 L Hct (42 - 52 %) 25.4 L 23.6 L MCV (80.0 - 94.0 FL) 84.5 84.5 MCH (27.0 - 31.0 PG) 27.5 27.5 MCHC (33.0 - 37.0 G/DL) 32.5 L 32.5 L RDW (11.5 - 14.5 %) 15.7 H 15.7 H Plt Count (130 - 400 /CUMM) 310 128 L MPV (7.4 - 10.4 FL) 6.2 L 6.8 L Gran % (42.2 - 75.2 %) 77.7 H 76.3 H Lymphocytes % (20.5 - 51.1 %) 13.4 L 14.2 L Monocytes % (1.7 - 9.3 %) 8.7 8.4 Eosinophils % (0 - 5 %) 0 0 Basophils % (0.0 - 2.0 %) 0.2 1.1 Absolute Granulocytes (1.4 - 6.5 /CUMM) 9.8 H 7.8 H Absolute Lymphocytes (1.2 - 3.4 /CUMM) 1.7 1.4 Absolute Monocytes (0.10 - 0.60 /CUMM) 1.1 H 0.9 H Absolute Eosinophils (0.0 - 0.7 /CUMM) 0 0 Absolute Basophils (0.0 - 0.2 /CUMM) 0 0.1 06/13 06/13 1750 1400 Chemistry Troponin I (<0.11 ng/ml) 0.02 Hematology CBC w Diff NO MAN DIFF REQ Cancelled WBC (4.8 - 10.8 /CUMM) 10.0 Cancelled RBC (4.70 - 6.10 /CUMM) 2.85 L Cancelled Hgb (14.0 - 18.0 G/DL) 7.8 L Cancelled Hct (42 - 52 %) 24.2 L Cancelled MCV (80.0 - 94.0 FL) 85.1 Cancelled MCH (27.0 - 31.0 PG) 27.5 Cancelled MCHC (33.0 - 37.0 G/DL) 32.3 L Cancelled RDW (11.5 - 14.5 %) 15.9 H Cancelled Plt Count (130 - 400 /CUMM) 263 Cancelled MPV (7.4 - 10.4 FL) 6.3 L Cancelled Gran % (42.2 - 75.2 %) 84.5 H Lymphocytes % (20.5 - 51.1 %) 10.0 L Monocytes % (1.7 - 9.3 %) 5.3 Eosinophils % (0 - 5 %) 0 Basophils % (0.0 - 2.0 %) 0.2 Absolute Granulocytes (1.4 - 6.5 /CUMM) 8.5 H Absolute Lymphocytes (1.2 - 3.4 /CUMM) 1.0 L Absolute Monocytes (0.10 - 0.60 /CUMM) 0.5 Absolute Eosinophils (0.0 - 0.7 /CUMM) 0 Absolute Basophils (0.0 - 0.2 /CUMM) 0 Vital Signs Date Time Temp Pulse Resp B/P B/P Pulse O2 O2 Flow FiO2 Mean Ox Delivery Rate 06/14 1200 95 Nasal 3.5L Cannula 06/14 1200 97.0 76 20 130/70 95 Nasal 3.5L Cannula 06/14 0847 96 Nasal 3.0L Cannula 06/14 0812 76 140/76 06/14 0800 98 Nasal 3.5L Cannula 06/14 0800 97.1 76 20 134/72 98 Nasal 3.5L Cannula 06/14 0400 94 Nasal 3.5L Cannula 06/14 0346 73 97 06/14 0000 94 Nasal 3.5L Cannula 06/13 2321 97.0 76 28 138/81 94 Nasal 3.5L Cannula 06/13 2110 94 Nasal 3.5L Cannula 06/13 2057 76 125/71 06/13 2000 95 Nasal 3.5L Cannula 06/13 1600 98 Nasal 4.0L Cannula 06/13 1600 97.4 82 22 128/72 98 Nasal 4.0L Cannula 06/13 1423 98 Nasal 3.5L Cannula Intake & Output 06/14 1600 06/14 0800 06/14 0000 Intake Total 120 922 Output Total 1450 1350 Balance -1330 -428 Intake, IV 222 Intake, Oral 120 700 Output, Urine 1450 1350 Exam General Appearance: no apparent distress, alert, awake Head: atraumatic, normal appearance Respiratory: decreased breath sounds Cardiovascular: regular rate/rhythm Gastrointestinal: normal bowel sounds, soft Other Physical Findings: Extremities: 2+ bilateral pitting edema, chronic venous skin changes Current Medications: Current Medications Sig/Keaton Start time Last Medication Dose Route Stop Time Status Admin Acetaminophen 500 MG Q6P PRN 06/13 1530 AC PO Acetaminophen 1,000 MG Q6P PRN 06/11 1445 DC 06/12 IV 0839 Albuterol Sulfate 3 ML TID 06/11 2100 AC 06/14 INH 0846 Amiodarone HCl 200 MG DAILY 06/15 0900 AC PO Atorvastatin Calcium 10 MG DAILY 06/12 0900 AC 06/14 PO 0811 Carvedilol 12.5 MG BID 06/11 2100 AC 06/14 PO 0812 Ceftazidime 1,000 MG Q12 06/12 2100 AC 06/14 IV 0812 Febuxostat 40 MG DAILY 06/12 0900 AC 06/14 PO 0811 Ferrous Sulfate 325 MG DAILY 06/12 09 AC 06/14 PO 0811 Gabapentin 400 MG TID 06/11 2100 AC 06/14 PO 0811 Guaifenesin 600 MG Q12 06/11 2100 AC 06/14 PO 0811 Hydroxyzine HCl 25 MG BID PRN 06/12 1830 AC PO Hydroxyzine HCl 10 MG BID 06/11 2145 AC 06/14 PO 0811 Insulin Aspart 0 TIDAC 06/14 0800 AC 06/14 SC 1154 Insulin Aspart 0 TIDAC 06/13 1700 DC 06/13 SC 1612 Insulin Human Regular 0 Q6 06/12 1813 DC 06/13 SC 1214 Methylprednisolone 40 MG DAILY 06/14 0900 AC 06/14 IV 0812 Oxycodone HCl 5 MG ONCE ONE 06/13 2215 DC 06/13 PO 06/13 2216 2242 Oxycodone/ 2 TAB ONCE ONE 06/14 0815 DC 06/14 Acetaminophen PO 06/14 0816 0811 Oxycodone/ 0 .STK-MED ONE 06/14 0812 DC Acetaminophen PO Oxycodone/ 2 TAB ONCE PRN 06/13 1530 DC 06/13 Acetaminophen PO 06/13 2300 1611 Pantoprazole Sodium 40 MG BID 06/13 2100 AC 06/14 IV 0811 Pantoprazole Sodium 40 MG Q5H 06/13 0600 DC 06/13 Sodium Chloride 100 ML IV 1554 Sodium Chloride 500 ML .Q5H 06/12 1145 DC 06/13 IV 1105 Impression/Plan Impression/Problem List Impression: The patient is a 63 year old gentleman with above-mentioned past medical history was been transferred from general medicine floor to ICU for management of acute lower GI bleed He is currently being treated and evaluated for following conditions #Acute blood loss anemia secondary to bleeding gastric ulcer Patient had upper EGD which showed bleeding gastric ulcer, bleeding vessel was injected with epinephrine in addition to clipping. Patient received 3 units PRBCs, his H&H are stable posttransfusion. History of Motrin and naproxen last week -Diet advanced to mechanical soft -Monitor H/H, stable -IV Protonix 40 twice daily Patient must receive IV PPI for 72 hours after acute GI bleed. After that the patient will need to be maintained on high-dose PPI for the remaining of his life -Patient will need follow-up EGD in 8 weeks to assess healing of gastric ulcer with possible biopsy to rule out malignancy -Keep holding Eliquis, resume as per cardiology -Avoid NSAIDs -DVT prophylaxis only with ALPS -GI recommendation appreciated -Reconsult GI immediately if there is any sign of hemodynamic instability, active bleeding or dropping in H&H #History of CHFrEF, ischemic cardiomyopathy Patient has ejection fraction of only 25-30%. AICD had to be turned it off and then back on during the EGD. Device interrogation shows one brief episode of atrial fibrillation but no significant other arrhythmias. -Monitor For volume overload -EKG and troponin -His blood pressure stable continue carvedilol #Acute on chronic hypercapnic respiratory failure (COPD exacerbation, obstructive sleep apnea noncompliant with CPAP) At baseline oxygen requirement -Maintain oxygen saturation above 92% -Continue BiPAP overnight -TRC -Follow sputum culture -IV Solu-Medrol to 40 mg daily -Continue IV ceftaz Day 2 #LISETTE, CKD stage III/IV Creatinine improving-1.1 Most likely due to poor oral intake and Elevated BUN in setting of GI bleed -Monitor creatinine curve -Avoid nephrotoxins #Hyperkalemia Potassium 5.4 today -No EKG changes observed -Avoid Kayexalate in setting of active GI bleed -Repeat BEP at 4 PM received her insulin and dextrose #History of hypertension -Lasix remains on hold #History of atrial fibrillation -Eliquis on hold -Her discussion with cardiology can continue Lamictal 100 mg daily #History of diabetes mellitus -Insulin sliding scale NPO Mechanical soft/DVT prophylaxis with Alps/full code Problem List: 1. COPD with acute exacerbation 2. Rectal bleeding Pain Ratin Tomorrow's Labs & Rationales: cbc icu bundle Plan DVT/Prophylaxis: mechanical
[2018-06-14 08:00] VITALS: BP 134/72
--- NOTE | 2018-06-14 08:09 | PN- CRCU ---
Subjective HPI/Critical Care Issues: The patient is awake and alert. He reports feeling improved overall. He still has a congested cough and shortness of breath with exertion. He is however better since admission. The patient denies any active bleeding, and specifically denies any melena, hematochezia, or hematemesis. His hemoglobin was stable overnight Objective Current Medications: Current Medications Sig/Keaton Start time Last Medication Dose Route Stop Time Status Admin Acetaminophen 500 MG Q6P PRN 06/13 1530 AC PO Acetaminophen 1,000 MG Q6P PRN 06/11 1445 DC 06/12 IV 0839 Albuterol Sulfate 3 ML TID 06/11 2100 AC 06/13 INH 2110 Atorvastatin Calcium 10 MG DAILY 06/12 09 AC 06/13 PO 0852 Carvedilol 12.5 MG BID 06/11 2100 AC 06/13 PO 2056 Ceftazidime 1,000 MG Q12 06/12 2100 AC 06/13 IV 2057 Febuxostat 40 MG DAILY 06/12 09 AC 06/13 PO 0852 Ferrous Sulfate 325 MG DAILY 06/12 09 AC 06/13 PO 0852 Gabapentin 400 MG TID 06/11 2100 AC 06/13 PO 205 Guaifenesin 600 MG Q12 06/11 2100 AC 06/13 PO 205 Hydroxyzine HCl 25 MG BID PRN 06/12 1830 AC PO Hydroxyzine HCl 10 MG BID 06/11 2145 AC 06/13 PO 2057 Insulin Aspart 0 TIDAC 06/13 1700 AC 06/13 SC 1612 Insulin Human Regular 0 Q6 06/12 1813 DC 06/13 SC 1214 Methylprednisolone 40 MG DAILY 06/14 0900 AC IV Methylprednisolone 60 MG DAILY 06/13 0900 DC 06/13 IV 0851 Oxycodone HCl 5 MG ONCE ONE 06/13 2215 DC 06/13 PO 06/13 2216 2242 Oxycodone/ 2 TAB ONCE PRN 06/13 1530 DC 06/13 Acetaminophen PO 06/13 2300 1611 Oxycodone/ 1 TAB ONCE ONE 06/13 1100 DC 06/13 Acetaminophen PO 06/13 1101 1108 Pantoprazole Sodium 40 MG BID 06/13 2100 AC 06/13 IV 2055 Pantoprazole Sodium 40 MG Q5H 06/13 0600 DC 06/13 Sodium Chloride 100 ML IV 1554 Sodium Chloride 500 ML .Q5H 06/12 1145 DC 06/13 IV 1105 Vital Signs & I&O Last 24 Hrs of Vitals and I&O: Vital Signs Date Time Temp Pulse Resp B/P B/P Pulse O2 O2 Flow FiO2 Mean Ox Delivery Rate 06/14 0400 94 Nasal 3.5L Cannula 06/14 0346 73 97 06/14 0000 94 Nasal 3.5L Cannula 06/13 2321 97.0 76 28 138/81 94 Nasal 3.5L Cannula 06/13 2110 94 Nasal 3.5L Cannula 06/13 2057 76 125/71 06/13 2000 95 Nasal 3.5L Cannula 06/13 1600 98 Nasal 4.0L Cannula 06/13 1600 97.4 82 22 128/72 98 Nasal 4.0L Cannula 06/13 1423 98 Nasal 3.5L Cannula 06/13 1200 98 Nasal 4.0L Cannula 06/13 1200 97.2 75 22 122/80 98 Nasal 4.0L Cannula 06/13 0854 98 Nasal 5.0L Cannula 06/13 0852 76 126/80 06/13 0800 98 Nasal 5.0L Cannula Intake & Output 06/14 0800 06/14 0000 06/13 1600 Intake Total 029 595 4052 Output Total 1450 1350 1850 Balance -1330 -428 32 Intake, IV 222 922 Intake, Oral 120 700 960 Number 0 Bowel Movements Output, Urine 1450 1350 1850 General Appearance: alert, awake, comfortable, morbidly obese Head: atraumatic, normal appearance Eyes: Bilateral: normal appearance Neck: supple Respiratory: decreased breath sounds with scattered rhonchi throughout both lung jaquez Cardiovascular: distant heart sounds Gastrointestinal: normal bowel sounds, soft, non-tender Extremities: Chronic lower extremity edema and venous stasis Skin: intact, normal color, warm/dry Results Last 24 Hrs of Lab Results: Laboratory Tests 06/14/18 0515: Anion Gap 5, Estimated GFR > 60, Glucose 162 H, Calcium 9.0, Phosphorus 3.6, Magnesium 2.1, Total Bilirubin 0.4, AST 11 L, ALT 21, Albumin 3.2 L, CBC w Diff NO MAN DIFF REQ, RBC 3.01 L, MCV 84.5, MCH 27.5, MCHC 32.5 L, RDW 15.7 H , MPV 6.2 L, Gran % 77.7 H, Lymphocytes % 13.4 L, Monocytes % 8.7, Eosinophils % 0, Basophils % 0.2, Absolute Granulocytes 9.8 H, Absolute Lymphocytes 1.7, Absolute Monocytes 1.1 H, Absolute Eosinophils 0, Absolute Basophils 0 06/14/18 0030: CBC w Diff NO MAN DIFF REQ, RBC 2.79 L, MCV 84.5, MCH 27.5, MCHC 32.5 L, RDW 15.7 H, MPV 6.8 L, Gran % 76.3 H, Lymphocytes % 14.2 L, Monocytes % 8.4, Eosinophils % 0, Basophils % 1.1, Absolute Granulocytes 7.8 H, Absolute Lymphocytes 1.4, Absolute Monocytes 0.9 H, Absolute Eosinophils 0, Absolute Basophils 0.1 06/13/18 1750: Troponin I 0.02, CBC w Diff NO MAN DIFF REQ, RBC 2.85 L, MCV 85.1, MCH 27.5, MCHC 32.3 L, RDW 15.9 H, MPV 6.3 L, Gran % 84.5 H, Lymphocytes % 10.0 L, Monocytes % 5.3, Eosinophils % 0, Basophils % 0.2, Absolute Granulocytes 8.5 H, Absolute Lymphocytes 1.0 L, Absolute Monocytes 0.5, Absolute Eosinophils 0, Absolute Basophils 0 06/13/18 1400: CBC w Diff Cancelled, WBC Cancelled, RBC Cancelled, Hgb Cancelled, Hct Cancelled , MCV Cancelled, MCH Cancelled, MCHC Cancelled, RDW Cancelled, Plt Count Cancelled, MPV Cancelled 06/13/18 1115: CBC w Diff NO MAN DIFF REQ, RBC 2.94 L, MCV 84.2, MCH 27.7, MCHC 32.9 L, RDW 15.4 H, MPV 6.5 L, Gran % 81.2 H, Lymphocytes % 12.9 L, Monocytes % 5.6, Eosinophils % 0.1, Basophils % 0.2, Absolute Granulocytes 8.4 H, Absolute Lymphocytes 1.3, Absolute Monocytes 0.6, Absolute Eosinophils 0, Absolute Basophils 0 06/13/18 1110: Troponin I 0.03 06/13/18 0824: Anion Gap 7, Estimated GFR 52 L, Glucose 161 H, Calcium 8.8, Phosphorus 3.2, Magnesium 2.0, Total Bilirubin 0.3, AST 10 L, ALT 22, Albumin 2.9 L Diagnostic Data CXR Findings: Stable enlargement the cardiac silhouette. Interval improvement of pulmonary edema. Bibasilar opacity consistent with atelectasis. Impression/Plan Impression/Plan Impression/Plan: 1. Upper GI bleed with recent nsaid use, prior PUD,with acute blood loss anemia and hypotension, now resolved. He is s/p K-Centra administration, PRBCs and appears to be hemodynamically stable. Endoscopy positive for gastric ulcer with visible vessel and diffuse gastritis peer 2. Chronic hypercarbic respiratory failure with copd and jory with noncompliance of bipap use. 3. COPDE with sig sputum - colonization likely. 4. Severe ischemic cardiomyopathy with Low EF with high risk for fluid overload. 5. Atrial fibrillation, previously on Eliquis, now on hold in the setting of GI bleed. 6. JORY noncompliant with nocturnal BiPAP therapy. 7. History of gout. 8. Upper extremity swelling no dvt noted by ultrasound. 9. Acute kidney injury with ckd stage 2-3. 10. Recent multifocal pneumonia with respiratory failure. Will require a follow-up CT scan of the chest to ensure resolution of the pneumonia. 11. Hyperkalemia without EKG changes. 12. Mild leukocytosis, on ceftazidime for possible recurrent respiratory infection. Recommendations: * Continue to monitor for bleeding. * Continue proton pump inhibitor -72 hours in total in the setting of acute GI bleed. * Monitor CBC daily according to GI. * Monitor strict I's and O's, avoid heart failure. * Slowly advance diet, for mechanical soft diet today. * Oxygen for saturations greater than 92%. * Nocturnal BiPAP to continue as tolerated. * Nebs/total respiratory care to continue. * Can restart antithrombotic therapy/Eliquis today per GI. * Hold off on any NSAIDs for the future. * The patient will require repeat EGD to assess healing of gastric ulcer in 8 weeks per GI. * Elevated white blood cell count notedwill monitor for evidence of worsening infection, continue ceftaz for now and follow-up cultures. * DVT prophylaxis with Venodyne's at all times.
--- NOTE | 2018-06-14 11:27 | PN- Cardiology ---
Subjective Subjective: Patient seems to be doing okay today. No cardiac issues noted. Respiratory status stable.-At present, no evidence of any recurrent bleeding Objective Vital Signs and I&Os Vital Signs Date Time Temp Pulse Resp B/P B/P Pulse O2 O2 Flow FiO2 Mean Ox Delivery Rate 06/14 0812 76 140/76 06/14 0800 98 Nasal 3.5L Cannula 06/14 0800 97.1 76 20 134/72 98 Nasal 3.5L Cannula 06/14 0400 94 Nasal 3.5L Cannula 06/14 0346 73 97 06/14 0000 94 Nasal 3.5L Cannula 06/13 2321 97.0 76 28 138/81 94 Nasal 3.5L Cannula 06/13 2110 94 Nasal 3.5L Cannula 06/13 2057 76 125/71 06/13 2000 95 Nasal 3.5L Cannula 06/13 1600 98 Nasal 4.0L Cannula 06/13 1600 97.4 82 22 128/72 98 Nasal 4.0L Cannula 06/13 1423 98 Nasal 3.5L Cannula 06/13 1200 98 Nasal 4.0L Cannula 06/13 1200 97.2 75 22 122/80 98 Nasal 4.0L Cannula Intake & Output 06/14 1600 06/14 0800 06/14 0000 06/13 1600 06/13 0800 06/13 0000 Intake Total 225 562 7955 1100 2235 Output Total 1450 1350 1850 1475 1100 Balance -1330 -428 32 -375 1135 Intake, Blood 350 650 Product Intake, IV 222 893 966 8145 Intake, Oral 120 700 960 Number 0 1 Bowel Movements Output, Urine 1450 1350 1850 1475 1100 Physical Exam: General Appearance: well developed/nourished, overweight white male, alert, awake, oriented Head: normal HEENT: Normal Neck: supple, JVP normal, carotid upstrokes normal bilaterally, no masses or thyromegaly Respiratory: chest non-tender, clear to auscultation and percussion bilaterally Cardiovascular: regular rate/rhythm, normal S1, S2, 1-2/6 systolic murmur Abdomen: normal bowel sounds, soft, non-tender Extremities: normal inspection, edema and stasis changes noted Vascular: Pulses are 2+ and equal bilaterally Neurologic: Grossly normal/nonfocal Current Medications: Current Medications Sig/Keaton Start time Last Medication Dose Route Stop Time Status Admin Acetaminophen 500 MG Q6P PRN 06/13 1530 AC PO Acetaminophen 1,000 MG Q6P PRN 06/11 1445 DC 06/12 IV 0839 Albuterol Sulfate 3 ML TID 06/11 2100 AC 06/14 INH 0846 Atorvastatin Calcium 10 MG DAILY 06/12 0900 AC 06/14 PO 0811 Carvedilol 12.5 MG BID 06/11 2100 AC 06/14 PO 0812 Ceftazidime 1,000 MG Q12 06/12 2100 AC 06/14 IV 0812 Febuxostat 40 MG DAILY 06/12 09 AC 06/14 PO 0811 Ferrous Sulfate 325 MG DAILY 06/12 09 AC 06/14 PO 0811 Gabapentin 400 MG TID 06/11 2100 AC 06/14 PO 0811 Guaifenesin 600 MG Q12 06/11 2100 AC 06/14 PO 0811 Hydroxyzine HCl 25 MG BID PRN 06/12 1830 AC PO Hydroxyzine HCl 10 MG BID 06/11 2145 AC 06/14 PO 0811 Insulin Aspart 0 TIDAC 06/14 0800 AC 06/14 SC 0813 Insulin Aspart 0 TIDAC 06/13 1700 DC 06/13 SC 1612 Insulin Human Regular 0 Q6 06/12 1813 DC 06/13 SC 1214 Methylprednisolone 40 MG DAILY 06/14 0900 AC 06/14 IV 0812 Oxycodone HCl 5 MG ONCE ONE 06/13 2215 DC 06/13 PO 06/13 2216 2242 Oxycodone/ 2 TAB ONCE ONE 06/14 0815 DC 06/14 Acetaminophen PO 06/14 0816 0811 Oxycodone/ 0 .STK-MED ONE 06/14 0812 DC Acetaminophen PO Oxycodone/ 2 TAB ONCE PRN 06/13 1530 DC 06/13 Acetaminophen PO 06/13 2300 1611 Pantoprazole Sodium 40 MG BID 06/13 2100 AC 06/14 IV 0811 Pantoprazole Sodium 40 MG Q5H 06/13 0600 DC 06/13 Sodium Chloride 100 ML IV 1554 Sodium Chloride 500 ML .Q5H 06/12 1145 DC 06/13 IV 1105 Results Last 48 Hrs of Labs/Mics: Laboratory Tests 06/14/18 0515: Anion Gap 5, Estimated GFR > 60, Glucose 162 H, Calcium 9.0, Phosphorus 3.6, Magnesium 2.1, Total Bilirubin 0.4, AST 11 L, ALT 21, Albumin 3.2 L, CBC w Diff NO MAN DIFF REQ, RBC 3.01 L, MCV 84.5, MCH 27.5, MCHC 32.5 L, RDW 15.7 H , MPV 6.2 L, Gran % 77.7 H, Lymphocytes % 13.4 L, Monocytes % 8.7, Eosinophils % 0, Basophils % 0.2, Absolute Granulocytes 9.8 H, Absolute Lymphocytes 1.7, Absolute Monocytes 1.1 H, Absolute Eosinophils 0, Absolute Basophils 0 06/14/18 0030: CBC w Diff NO MAN DIFF REQ, RBC 2.79 L, MCV 84.5, MCH 27.5, MCHC 32.5 L, RDW 15.7 H, MPV 6.8 L, Gran % 76.3 H, Lymphocytes % 14.2 L, Monocytes % 8.4, Eosinophils % 0, Basophils % 1.1, Absolute Granulocytes 7.8 H, Absolute Lymphocytes 1.4, Absolute Monocytes 0.9 H, Absolute Eosinophils 0, Absolute Basophils 0.1 06/13/18 1750: Troponin I 0.02, CBC w Diff NO MAN DIFF REQ, RBC 2.85 L, MCV 85.1, MCH 27.5, MCHC 32.3 L, RDW 15.9 H, MPV 6.3 L, Gran % 84.5 H, Lymphocytes % 10.0 L, Monocytes % 5.3, Eosinophils % 0, Basophils % 0.2, Absolute Granulocytes 8.5 H, Absolute Lymphocytes 1.0 L, Absolute Monocytes 0.5, Absolute Eosinophils 0, Absolute Basophils 0 06/13/18 1400: CBC w Diff Cancelled, WBC Cancelled, RBC Cancelled, Hgb Cancelled, Hct Cancelled , MCV Cancelled, MCH Cancelled, MCHC Cancelled, RDW Cancelled, Plt Count Cancelled, MPV Cancelled 06/13/18 1115: CBC w Diff NO MAN DIFF REQ, RBC 2.94 L, MCV 84.2, MCH 27.7, MCHC 32.9 L, RDW 15.4 H, MPV 6.5 L, Gran % 81.2 H, Lymphocytes % 12.9 L, Monocytes % 5.6, Eosinophils % 0.1, Basophils % 0.2, Absolute Granulocytes 8.4 H, Absolute Lymphocytes 1.3, Absolute Monocytes 0.6, Absolute Eosinophils 0, Absolute Basophils 0 06/13/18 1110: Troponin I 0.03 06/13/18 0824: Anion Gap 7, Estimated GFR 52 L, Glucose 161 H, Calcium 8.8, Phosphorus 3.2, Magnesium 2.0, Total Bilirubin 0.3, AST 10 L, ALT 22, Albumin 2.9 L 06/13/18 0230: Troponin I 0.03, CBC w Diff NO MAN DIFF REQ, RBC 2.89 L, MCV 84.4, MCH 27.7, MCHC 32.9 L, RDW 15.1 H, MPV 6.4 L, Gran % 78.4 H, Lymphocytes % 14.0 L, Monocytes % 7.0, Eosinophils % 0, Basophils % 0.6, Absolute Granulocytes 9.1 H, Absolute Lymphocytes 1.6, Absolute Monocytes 0.8 H, Absolute Eosinophils 0, Absolute Basophils 0.1 06/12/18 2200: CBC w Diff Cancelled, WBC Cancelled, RBC Cancelled, Hgb Cancelled, Hct Cancelled , MCV Cancelled, MCH Cancelled, MCHC Cancelled, RDW Cancelled, Plt Count Cancelled, MPV Cancelled 06/12/18 2159: Troponin I 0.04, CBC w Diff NO MAN DIFF REQ, RBC 2.87 L, MCV 83.9, MCH 27.5, MCHC 32.8 L, RDW 15.3 H, MPV 6.5 L, Gran % 81.3 H, Lymphocytes % 13.6 L, Monocytes % 4.6, Eosinophils % 0, Basophils % 0.5, Absolute Granulocytes 10.0 H , Absolute Lymphocytes 1.7, Absolute Monocytes 0.6, Absolute Eosinophils 0, Absolute Basophils 0.1 06/12/18 1830: Anion Gap 9, Estimated GFR 39 L, Glucose 173 H, Calcium 8.9, Phosphorus 2.5, Magnesium 1.8, Total Bilirubin 0.6, AST 12 L, ALT 21, Albumin 3.0 L, CBC w Diff NO MAN DIFF REQ, RBC 3.13 L, MCV 83.2, MCH 27.5, MCHC 33.0, RDW 15.5 H, MPV 6.9 L, Gran % 81.6 H, Lymphocytes % 13.4 L, Monocytes % 4.7, Eosinophils % 0, Basophils % 0.3, Absolute Granulocytes 10.8 H, Absolute Lymphocytes 1.8, Absolute Monocytes 0.6, Absolute Eosinophils 0, Absolute Basophils 0 06/12/18 1800: CBC w Diff Cancelled, WBC Cancelled, RBC Cancelled, Hgb Cancelled, Hct Cancelled , MCV Cancelled, MCH Cancelled, MCHC Cancelled, RDW Cancelled, Plt Count Cancelled, MPV Cancelled 06/12/18 1331: Anion Gap 6, Estimated GFR 32 L, Glucose 190 H, Calcium 8.5, Phosphorus 2.6, Magnesium 1.7, Total Bilirubin 0.5, AST 11 L, ALT 25, Troponin I 0.03, Albumin 2.7 L, PT 18.7 H, INR 1.71 H, APTT 28, CBC w Diff Cancelled, WBC Cancelled, RBC Cancelled, Hgb Cancelled, Hct Cancelled, MCV Cancelled, MCH Cancelled, MCHC Cancelled, RDW Cancelled, Plt Count Cancelled, MPV Cancelled 06/12/18 1315: CBC w Diff NO MAN DIFF REQ, RBC 2.59 L, MCV 83.3, MCH 27.2, MCHC 32.7 L, RDW 15.7 H, MPV 6.8 L, Gran % 81.5 H, Lymphocytes % 12.9 L, Monocytes % 5.4, Eosinophils % 0, Basophils % 0.2, Absolute Granulocytes 10.2 H, Absolute Lymphocytes 1.6, Absolute Monocytes 0.7 H, Absolute Eosinophils 0, Absolute Basophils 0 Microbiology 06/12 1331 UPPER RESP: Surveillance Culture - COMP 06/12 1331 GI: Surveillance Culture - COMP Assessment/Plan Assessment/Plan Assessment: 1. GI bleed related to gastric ulcer 2. COPD exacerbation 3. 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 Indwelling AICD 5. Lower extremity edema with stasis changes and history of prior cellulitis 6. Abnormal ECG Recommendations: -The patient appears stable at the present time from a cardiac standpoint. Continue current medications for now. -I reviewed the EKG and his EKG is stable when compared previously with a slightly prolonged QTC. Continue current medications -Device interrogation shows one brief episode of atrial fibrillation but no significant other arrhythmias. -Await final input from GI prior to restarting anticoagulation. Continue telemetry? Yes
[2018-06-14 12:00] VITALS: BP 130/70
--- NOTE | 2018-06-14 16:01 | Transfer of Care Summary ---
Hospital Course Course Hospital Course: Reason of ICU transfer GI bleed HPI Patient is 63-year-old gentleman with past medical history of COPD on 3 L nasal cannula, obstructive sleep apnea noncompliant with CPAP, chronic venous insufficiency, ischemic cardiomyopathy status post AICD placement, non-insulin- dependent dependent diabetes mellitus on metformin, hypertension, hyperlipidemia. He presented to [facility] for complaints of shortness of breath and was admitted to general medicine floor for management of acute on chronic hypoxemic hypercapnic respiratory failure in LISETTE which appeared to be pre-renal Interval events Patient was transferred to ICU on 06/13 in setting of 5 melenic stool on general medicine floor for acute blood loss anemia secondary to upper GI bleed. No blood work was not done in the morning because patient was a difficult stick. Patient' s SBP was in the 80s. After ICU transfer three 20 gauge access was established. Labs were drawn and his H&H dropped from 10/ to 7. Patient was typed and screened. He received 3 units of packed RBCs. He also received KCentra as he was on Eliquis. 4 fresh frozen plasma units were ordered however were not transfused. He was also started on Protonix drip. Patient's blood pressure responded well and was maintained around 110 systolic. He underwent endoscopy on 06/13 which showed gastric ulcer with visible vessel, was cauterized and clip was placed. Patient's H&H was serially monitor. His H&H has remained stable. There has been no more episode of melena. He is on 40 mg Protonix IV twice a day. His diet has been advanced to mechanical soft today which he has tolerated well. Of note patient has history of ischemic cardiomyopathy with ejection fraction of only 25-30%. The patient decompensates he should be recessitated with colloids rather than crystalloids. AICD had to be turned off during EGD. The device interrogation was done which showed only one brief episode of atrial fibrillation without any significant arrhythmias. Patient remains rate controlled and his QTC was significantly prolonged at 500, amiodrone was held, after cardiology's recommendation it has been restarted at 200 mg daily for atrial fibrillation. We are continuing his carvedilol however Eliquis remains on hold for now. He is also being treated for acute on chronic hypercapnic respiratory failure in setting of COPD exacerbation and obstructive sleep apnea. He is being tapered on steroids currently at Solu-Medrol 40 mg daily. He keeps refusing BiPAP overnight. No growth has been seen on sputum culture so far. He was recently treated for multifocal pneumonia with respiratory failure. He was found to have mild leukocytosis and was started on ceftazidime for possible recurrent respiratory infection 2 days of treatment. Consider de-escalation of antibiotic therapy. Patient has been afebrile. White count can be secondary to steroids. And can also be reactive in setting of GI bleed. Patient has CKD stage 3/4 presented with acute kidney injury and his creatinine has improved to 1.1 and was most likely secondary to poor oral intake. His BUN was elevated in setting of GI bleed. Continue to monitor creatinine, and avoid nephrotoxins for him. Patient has been hyperkalemic every now and then no EKG changes have been observed. Kayexalate was not ordered in setting of active GI bleed. He has received insulin and dextrose. For his diabetes he is on metformin at home. Currently he is on insulin sliding scale. Mechanical ventilation none NIPPV note patient refusing BiPAP Antibiotic plan ceftazidime day 2 consider discontinuing pending clinical course Catheters/lines none Nutrition mechanical soft diet DVT prophylaxis only with Alps Osman remains on hold CODE STATUS full code Things to be followed up on floor * Monitor CBC * Follow-up GI recommendations * Monitor BEP in setting of hyperkalemia and LISETTE * Taper steroids * Consider de-escalation of antibiotics therapy * Osman remains on hold restart after discussion of cardiology * Prolonged QTc interval up to 500 monitor QTC prolonging drug, amiodarone has been started as per cardiology recommendation * Patient must receive IV PPI for 72 hours after acute GI bleed. After that the patient will need to be maintained on high-dose PPI lifelong * Patient will need follow-up EGD in 8 weeks to assess healing of gastric ulcer with possible biopsy to rule out malignancy * Advanced diet slowly as per GI recommendations Assessment/Plan: see above
--- NOTE | 2018-06-14 19:06 | PN- Gastroenterology ---
Assessment/Plan GI Assessment/Recommendations: ASSESSMENT: 1. Acute Blood Loss Anemia --no further signs of GI blood loss. H&H is stable. 2. Gastric Ulcer with visible vessel status post injection epinephrine, electrocautery, and placement Endo Clip. 5. Chronic Use of Antithrombotic Agents 6. Chronic Use of NSAIDs 7. COPD 8. Ischemic Cardiomyopathy 9. Acute Renal Failure --improving with hydration and transfusion. RECOMMENDATIONS: 1. Advance diet gradually. Patient may have full liquids today and if tolerated mechanical soft tomorrow. 2. Patient must be maintained on Protonix 40 mg PO BID after discharge until repeat EGD in 8 weeks. He will need lifelong PPI after that. 3.. Mr. Padilla will need repeat EGD in 8 weeks to assess healing of gastric ulcer. Will also need biopsy to rule out malignancy. 4. GI will sign off for now. Please do not hesitate to contact us as needed. Please make sure that Mr. Padilla has an appointment scheduled with me as an outpatient. Subjective Subjective: Patient had one small blood-tinged stool today but otherwise no bowel movement. He is tolerating a diet. He has had no nausea vomiting or abdominal pain. His vital signs are stable. Objective Vital Signs and I&Os Vital Signs Date Time Temp Pulse Resp B/P B/P Pulse O2 O2 Flow FiO2 Mean Ox Delivery Rate 06/14 1200 95 Nasal 3.5L Cannula 06/14 1200 97.0 76 20 130/70 95 Nasal 3.5L Cannula 06/14 0847 96 Nasal 3.0L Cannula 06/14 0812 76 140/76 06/14 0800 98 Nasal 3.5L Cannula 06/14 0800 97.1 76 20 134/72 98 Nasal 3.5L Cannula 06/14 0400 94 Nasal 3.5L Cannula 06/14 0346 73 97 06/14 0000 94 Nasal 3.5L Cannula 06/13 2321 97.0 76 28 138/81 94 Nasal 3.5L Cannula 06/13 2110 94 Nasal 3.5L Cannula 06/13 2057 76 125/71 06/13 2000 95 Nasal 3.5L Cannula Intake & Output 06/14 1600 06/14 0400 06/13 1600 06/13 0400 06/12 1600 06/12 0400 Intake Total 9635 935 5422 2235 1135 900 Output Total 3150 1350 3325 1100 2100 Balance -1540 -428 -343 1135 -969 900 Intake, Blood 350 650 Product Intake, IV 50 222 1672 1585 455 300 Intake, Oral 1560 700 960 680 600 Number 0 0 1 3 Bowel Movements Output, Urine 3150 1350 3325 1100 2100 Patient 380 lb 380 lb Weight Physical Exam General Appearance: comfortable, obese Respiratory: lungs clear Abdomen: normal bowel sounds, soft, non-tender Neurologic/Psychiatric: oriented x 3, normal mood/affect Current Medications: Current Medications Sig/Keaton Start time Last Medication Dose Route Stop Time Status Admin Acetaminophen 500 MG Q6P PRN 06/13 1530 AC PO Albuterol Sulfate 3 ML TID 06/11 2100 AC 06/14 INH 1321 Amiodarone HCl 200 MG DAILY 06/15 0900 AC PO Atorvastatin Calcium 10 MG DAILY 06/12 0900 AC 06/14 PO 0811 Carvedilol 12.5 MG BID 06/11 2100 AC 06/14 PO 0812 Ceftazidime 1,000 MG Q12 06/12 2100 AC 06/14 IV 0812 Dextrose 25 GM ONCE ONE 06/14 1330 DC 06/14 IV 06/14 1331 1359 Febuxostat 40 MG DAILY 06/12 0900 AC 06/14 PO 0811 Ferrous Sulfate 325 MG DAILY 06/12 0900 AC 06/14 PO 0811 Gabapentin 400 MG TID 06/11 2100 AC 06/14 PO 1537 Guaifenesin 600 MG Q12 06/11 2100 AC 06/14 PO 0811 Hydroxyzine HCl 25 MG BID PRN 06/12 1830 AC PO Hydroxyzine HCl 10 MG BID 06/11 2145 AC 06/14 PO 0811 Insulin Aspart 0 TIDAC 06/14 0800 AC 06/14 SC 1154 Insulin Aspart 0 TIDAC 06/13 1700 DC 06/13 SC 1612 Insulin Human Regular 10 UNITS ONCE ONE 06/14 1330 DC 06/14 IV 06/14 1331 1359 Methylprednisolone 40 MG DAILY 06/14 0900 AC 06/14 IV 0812 Oxycodone HCl 5 MG ONCE ONE 06/13 2215 DC 06/13 PO 06/13 2216 2242 Oxycodone/ 1 TAB ONCE ONE 06/14 1400 DC 06/14 Acetaminophen PO 06/14 1401 1359 Oxycodone/ 0 .STK-MED ONE 06/14 1359 DC Acetaminophen PO Oxycodone/ 2 TAB ONCE ONE 06/14 0815 DC 06/14 Acetaminophen PO 06/14 0816 0811 Oxycodone/ 0 .STK-MED ONE 06/14 0812 DC Acetaminophen PO Oxycodone/ 2 TAB ONCE PRN 06/13 1530 DC 06/13 Acetaminophen PO 06/13 2300 1611 Pantoprazole Sodium 40 MG BID 06/13 2100 AC 06/14 IV 0811 Results Pertinent Lab Results: Laboratory Tests 06/14 06/14 06/14 1600 1339 0515 Chemistry Sodium (137 - 145 mmol/L) Cancelled Cancelled 140 Potassium (3.5 - 5.1 mmol/L) Cancelled Cancelled 5.4 H Chloride (98 - 107 mmol/L) Cancelled Cancelled 103 Carbon Dioxide (22 - 30 mmol/L) Cancelled Cancelled 33 H Anion Gap (5 - 16) Cancelled Cancelled 5 BUN (9 - 20 mg/dL) Cancelled Cancelled 41 H Creatinine (0.7 - 1.2 mg/dL) Cancelled Cancelled 1.1 Estimated GFR (>60 ml/min) > 60 BUN/Creatinine Ratio Cancelled Glucose (65 - 99 mg/dL) Cancelled 162 H Calcium (8.4 - 10.2 mg/dL) Cancelled 9.0 Phosphorus (2.5 - 4.5 mg/dL) Cancelled 3.6 Magnesium (1.6 - 2.3 mg/dL) Cancelled 2.1 Total Bilirubin (0.2 - 1.3 mg/dL) Cancelled 0.4 AST (17 - 59 U/L) Cancelled 11 L ALT (21 - 72 U/L) Cancelled 21 Albumin (3.5 - 5.0 g/dL) Cancelled 3.2 L Hematology CBC w Diff NO MAN DIFF REQ WBC (4.8 - 10.8 /CUMM) 12.7 H RBC (4.70 - 6.10 /CUMM) 3.01 L Hgb (14.0 - 18.0 G/DL) 8.3 L Hct (42 - 52 %) 25.4 L MCV (80.0 - 94.0 FL) 84.5 MCH (27.0 - 31.0 PG) 27.5 MCHC (33.0 - 37.0 G/DL) 32.5 L RDW (11.5 - 14.5 %) 15.7 H Plt Count (130 - 400 /CUMM) 310 MPV (7.4 - 10.4 FL) 6.2 L Gran % (42.2 - 75.2 %) 77.7 H Lymphocytes % (20.5 - 51.1 %) 13.4 L Monocytes % (1.7 - 9.3 %) 8.7 Eosinophils % (0 - 5 %) 0 Basophils % (0.0 - 2.0 %) 0.2 Absolute Granulocytes (1.4 - 6.5 /CUMM) 9.8 H Absolute Lymphocytes (1.2 - 3.4 /CUMM) 1.7 Absolute Monocytes (0.10 - 0.60 /CUMM) 1.1 H Absolute Eosinophils (0.0 - 0.7 /CUMM) 0 Absolute Basophils (0.0 - 0.2 /CUMM) 0 06/14 06/13 0030 1750 Chemistry Troponin I (<0.11 ng/ml) 0.02 Hematology CBC w Diff NO MAN DIFF REQ NO MAN DIFF REQ WBC (4.8 - 10.8 /CUMM) 10.2 10.0 RBC (4.70 - 6.10 /CUMM) 2.79 L 2.85 L Hgb (14.0 - 18.0 G/DL) 7.7 L 7.8 L Hct (42 - 52 %) 23.6 L 24.2 L MCV (80.0 - 94.0 FL) 84.5 85.1 MCH (27.0 - 31.0 PG) 27.5 27.5 MCHC (33.0 - 37.0 G/DL) 32.5 L 32.3 L RDW (11.5 - 14.5 %) 15.7 H 15.9 H Plt Count (130 - 400 /CUMM) 128 L 263 MPV (7.4 - 10.4 FL) 6.8 L 6.3 L Gran % (42.2 - 75.2 %) 76.3 H 84.5 H Lymphocytes % (20.5 - 51.1 %) 14.2 L 10.0 L Monocytes % (1.7 - 9.3 %) 8.4 5.3 Eosinophils % (0 - 5 %) 0 0 Basophils % (0.0 - 2.0 %) 1.1 0.2 Absolute Granulocytes (1.4 - 6.5 /CUMM) 7.8 H 8.5 H Absolute Lymphocytes (1.2 - 3.4 /CUMM) 1.4 1.0 L Absolute Monocytes (0.10 - 0.60 /CUMM) 0.9 H 0.5 Absolute Eosinophils (0.0 - 0.7 /CUMM) 0 0 Absolute Basophils (0.0 - 0.2 /CUMM) 0.1 0 06/13 06/13 06/13 1400 1115 1110 Chemistry Troponin I (<0.11 ng/ml) 0.03 Hematology CBC w Diff Cancelled NO MAN DIFF REQ WBC (4.8 - 10.8 /CUMM) Cancelled 10.4 RBC (4.70 - 6.10 /CUMM) Cancelled 2.94 L Hgb (14.0 - 18.0 G/DL) Cancelled 8.1 L Hct (42 - 52 %) Cancelled 24.7 L MCV (80.0 - 94.0 FL) Cancelled 84.2 MCH (27.0 - 31.0 PG) Cancelled 27.7 MCHC (33.0 - 37.0 G/DL) Cancelled 32.9 L RDW (11.5 - 14.5 %) Cancelled 15.4 H Plt Count (130 - 400 /CUMM) Cancelled 255 MPV (7.4 - 10.4 FL) Cancelled 6.5 L Gran % (42.2 - 75.2 %) 81.2 H Lymphocytes % (20.5 - 51.1 %) 12.9 L Monocytes % (1.7 - 9.3 %) 5.6 Eosinophils % (0 - 5 %) 0.1 Basophils % (0.0 - 2.0 %) 0.2 Absolute Granulocytes (1.4 - 6.5 /CUMM) 8.4 H Absolute Lymphocytes (1.2 - 3.4 /CUMM) 1.3 Absolute Monocytes (0.10 - 0.60 /CUMM) 0.6 Absolute Eosinophils (0.0 - 0.7 /CUMM) 0 Absolute Basophils (0.0 - 0.2 /CUMM) 0 06/13 06/13 06/12 0824 0230 2200 Chemistry Sodium (137 - 145 mmol/L) 141 Potassium (3.5 - 5.1 mmol/L) 5.1 Chloride (98 - 107 mmol/L) 104 Carbon Dioxide (22 - 30 mmol/L) 31 H Anion Gap (5 - 16) 7 BUN (9 - 20 mg/dL) 56 H Creatinine (0.7 - 1.2 mg/dL) 1.4 H Estimated GFR (>60 ml/min) 52 L Glucose (65 - 99 mg/dL) 161 H Calcium (8.4 - 10.2 mg/dL) 8.8 Phosphorus (2.5 - 4.5 mg/dL) 3.2 Magnesium (1.6 - 2.3 mg/dL) 2.0 Total Bilirubin (0.2 - 1.3 mg/dL) 0.3 AST (17 - 59 U/L) 10 L ALT (21 - 72 U/L) 22 Troponin I (<0.11 ng/ml) 0.03 Albumin (3.5 - 5.0 g/dL) 2.9 L Hematology CBC w Diff NO MAN DIFF REQ Cancelled WBC (4.8 - 10.8 /CUMM) 11.6 H Cancelled RBC (4.70 - 6.10 /CUMM) 2.89 L Cancelled Hgb (14.0 - 18.0 G/DL) 8.0 L Cancelled Hct (42 - 52 %) 24.4 L Cancelled MCV (80.0 - 94.0 FL) 84.4 Cancelled MCH (27.0 - 31.0 PG) 27.7 Cancelled MCHC (33.0 - 37.0 G/DL) 32.9 L Cancelled RDW (11.5 - 14.5 %) 15.1 H Cancelled Plt Count (130 - 400 /CUMM) 254 Cancelled MPV (7.4 - 10.4 FL) 6.4 L Cancelled Gran % (42.2 - 75.2 %) 78.4 H Lymphocytes % (20.5 - 51.1 %) 14.0 L Monocytes % (1.7 - 9.3 %) 7.0 Eosinophils % (0 - 5 %) 0 Basophils % (0.0 - 2.0 %) 0.6 Absolute Granulocytes (1.4 - 6.5 /CUMM) 9.1 H Absolute Lymphocytes (1.2 - 3.4 /CUMM) 1.6 Absolute Monocytes (0.10 - 0.60 /CUMM) 0.8 H Absolute Eosinophils (0.0 - 0.7 /CUMM) 0 Absolute Basophils (0.0 - 0.2 /CUMM) 0.1 06/12 06/12 2159 1830 Chemistry Sodium (137 - 145 mmol/L) 138 Potassium (3.5 - 5.1 mmol/L) 5.7 H Chloride (98 - 107 mmol/L) 98 Carbon Dioxide (22 - 30 mmol/L) 31 H Anion Gap (5 - 16) 9 BUN (9 - 20 mg/dL) 68 H Creatinine (0.7 - 1.2 mg/dL) 1.8 H Estimated GFR (>60 ml/min) 39 L Glucose (65 - 99 mg/dL) 173 H Calcium (8.4 - 10.2 mg/dL) 8.9 Phosphorus (2.5 - 4.5 mg/dL) 2.5 Magnesium (1.6 - 2.3 mg/dL) 1.8 Total Bilirubin (0.2 - 1.3 mg/dL) 0.6 AST (17 - 59 U/L) 12 L ALT (21 - 72 U/L) 21 Troponin I (<0.11 ng/ml) 0.04 Albumin (3.5 - 5.0 g/dL) 3.0 L Hematology CBC w Diff NO MAN DIFF REQ NO MAN DIFF REQ WBC (4.8 - 10.8 /CUMM) 12.3 H 13.3 H RBC (4.70 - 6.10 /CUMM) 2.87 L 3.13 L Hgb (14.0 - 18.0 G/DL) 7.9 L 8.6 L Hct (42 - 52 %) 24.1 L 26.1 L MCV (80.0 - 94.0 FL) 83.9 83.2 MCH (27.0 - 31.0 PG) 27.5 27.5 MCHC (33.0 - 37.0 G/DL) 32.8 L 33.0 RDW (11.5 - 14.5 %) 15.3 H 15.5 H Plt Count (130 - 400 /CUMM) 270 269 MPV (7.4 - 10.4 FL) 6.5 L 6.9 L Gran % (42.2 - 75.2 %) 81.3 H 81.6 H Lymphocytes % (20.5 - 51.1 %) 13.6 L 13.4 L Monocytes % (1.7 - 9.3 %) 4.6 4.7 Eosinophils % (0 - 5 %) 0 0 Basophils % (0.0 - 2.0 %) 0.5 0.3 Absolute Granulocytes (1.4 - 6.5 /CUMM) 10.0 H 10.8 H Absolute Lymphocytes (1.2 - 3.4 /CUMM) 1.7 1.8 Absolute Monocytes (0.10 - 0.60 /CUMM) 0.6 0.6 Absolute Eosinophils (0.0 - 0.7 /CUMM) 0 0 Absolute Basophils (0.0 - 0.2 /CUMM) 0.1 0 06/12 06/12 06/12 1800 1331 1315 Chemistry Sodium (137 - 145 mmol/L) 134 L Potassium (3.5 - 5.1 mmol/L) 5.5 H Chloride (98 - 107 mmol/L) 95 L Carbon Dioxide (22 - 30 mmol/L) 33 H Anion Gap (5 - 16) 6 BUN (9 - 20 mg/dL) 56 H Creatinine (0.7 - 1.2 mg/dL) 2.1 H Estimated GFR (>60 ml/min) 32 L Glucose (65 - 99 mg/dL) 190 H Calcium (8.4 - 10.2 mg/dL) 8.5 Phosphorus (2.5 - 4.5 mg/dL) 2.6 Magnesium (1.6 - 2.3 mg/dL) 1.7 Total Bilirubin (0.2 - 1.3 mg/dL) 0.5 AST (17 - 59 U/L) 11 L ALT (21 - 72 U/L) 25 Troponin I (<0.11 ng/ml) 0.03 Albumin (3.5 - 5.0 g/dL) 2.7 L Coagulation PT (9.4 - 12.5 SEC) 18.7 H INR (0.90 - 1.17) 1.71 H APTT (25 - 37 SEC) 28 Hematology CBC w Diff Cancelled Cancelled NO MAN DIFF REQ WBC (4.8 - 10.8 /CUMM) Cancelled Cancelled 12.6 H RBC (4.70 - 6.10 /CUMM) Cancelled Cancelled 2.59 L Hgb (14.0 - 18.0 G/DL) Cancelled Cancelled 7.1 *L Hct (42 - 52 %) Cancelled Cancelled 21.6 L MCV (80.0 - 94.0 FL) Cancelled Cancelled 83.3 MCH (27.0 - 31.0 PG) Cancelled Cancelled 27.2 MCHC (33.0 - 37.0 G/DL) Cancelled Cancelled 32.7 L RDW (11.5 - 14.5 %) Cancelled Cancelled 15.7 H Plt Count (130 - 400 /CUMM) Cancelled Cancelled 263 MPV (7.4 - 10.4 FL) Cancelled Cancelled 6.8 L Gran % (42.2 - 75.2 %) 81.5 H Lymphocytes % (20.5 - 51.1 %) 12.9 L Monocytes % (1.7 - 9.3 %) 5.4 Eosinophils % (0 - 5 %) 0 Basophils % (0.0 - 2.0 %) 0.2 Absolute Granulocytes (1.4 - 6.5 /CUMM) 10.2 H Absolute Lymphocytes (1.2 - 3.4 /CUMM) 1.6 Absolute Monocytes (0.10 - 0.60 /CUMM) 0.7 H Absolute Eosinophils (0.0 - 0.7 /CUMM) 0 Absolute Basophils (0.0 - 0.2 /CUMM) 0 06/12 Chemistry Sodium Cancelled Potassium Cancelled Chloride Cancelled Carbon Dioxide Cancelled Anion Gap Cancelled BUN Cancelled Creatinine Cancelled BUN/Creatinine Ratio Cancelled Urines Urinalysis MOD H Urine Color (YEL,AMB,STR) YEL Urine Clarity (CLEAR) CLEAR Urine pH (5.0 - 8.0) 6.0 Ur Specific [place] (1.001 - 1.035) >= 1.030 Urine Protein (NEG,<30 MG/DL) TRACE H Urine Ketones (NEG) NEG Urine Nitrite (NEG) NEG Urine Bilirubin (NEG) NEG Urine Urobilinogen (0.1 - 1.0 EU/dl) 0.2 Ur Leukocyte Esterase (NEG) NEG Ur Microscopic SEDIMENT EXAMINED Urine WBC (0 - 2 /HPF) RARE Ur Epithelial Cells (NONE,FEW) FEW Urine Bacteria (NEG/NONE) MANY H Urine Hemoglobin (NEG) NEG Urine Glucose (N MG/DL) NEG
[2018-06-14 21:17] LABS: ABSOLUTE BASOPHIL COUNT 0 /CUMM (0.0-0.2); ABSOLUTE EOSINOPHIL COUNT 0 /CUMM (0.0-0.7); ABSOLUTE GRANULOCYTE CT 8.7 /CUMM (1.4-6.5); ABSOLUTE LYMPH COUNT 1.2 /CUMM (1.2-3.4); ABSOLUTE MONOCYTE COUNT 0.6 /CUMM (0.10-0.60); BASOPHIL % 0.1 % (0.0-2.0); EOSINOPHIL % 0 % (0-5); HEMATOCRIT 26.5 % (42-52); MEAN CORPUSCULAR HGB 27.3 PG (27.0-31.0); MEAN CORPUSCULAR HGB CONC 31.8 G/DL (33.0-37.0); MEAN CORPUSCULAR VOLUME 85.8 FL (80.0-94.0); MEAN PLATELET VOLUME 6.4 FL (7.4-10.4); PLATELET COUNT 318 /CUMM (130-400); RBC DISTRIBUTION WIDTH 15.9 % (11.5-14.5); RED BLOOD CELL CT 3.08 /CUMM (4.70-6.10); WHITE BLOOD CELL COUNT 10.6 /CUMM (4.8-10.8)
[2018-06-14 22:59] VITALS: BP 140/70
--- NOTE | 2018-06-15 07:12 | PN- Housestaff ---
Casey Maya 06/15/18 0711: Subjective Follow-up For: GI bleed Complaints: no complaints Tele-Events Since Last Visit: patient did not have any significant telemtry events, HR is in 90- 100 range. in Atrial fibrillation Subjective: Patient was examined bed side , lying in bed and complained of pain in his legs. also gave a history of blood in stools, and the patient thought that it was some residual blood from previous days. he says he does not want to prolog treatment and want to move as soon as possible. Review of Systems Constitutional: Denies: chills, diaphoresis, fever, malaise, weakness, unexplained weight loss. Cardiovascular: Denies: chest pain, edema, orthopena, palpitations, peripheral edema, syncope. Respiratory: Denies: cough, hemoptysis, orthopnea, short of breath, sputum production, stridor, wheezing. Gastrointestinal: Reports: melena, bloody stool. Denies: constipation, diarrhea, vomiting. Genitourinary: Denies: dysuria, frequency, hematuria, hesitation, nocturia, pain. Objective Last 24 Hrs of Vital Signs/I&O Vital Signs Date Time Temp Pulse Resp B/P B/P Pulse O2 O2 Flow FiO2 Mean Ox Delivery Rate 06/15 1013 96 Nasal 3.0L Cannula 06/15 0904 76 140/92 06/15 0904 76 140/92 06/15 0822 76 140/92 06/15 0800 Nasal 3.5L Cannula 06/15 0736 98.4 76 20 112/64 94 Nasal 3.0L Cannula 06/15 0000 Nasal 3.5L Cannula 06/14 2259 97.6 78 20 140/70 96 Nasal Cannula 06/14 2227 76 130/70 Intake & Output 06/15 1600 06/15 0800 06/15 0000 Intake Total 1241 250 500 Output Total 1275 700 Balance -34 -450 500 Intake, IV 41 Intake, Oral 1200 250 500 Number 1 Bowel Movements Output, Urine 1275 700 Physical Exam General Appearance: Alert, Oriented X3, Cooperative, No Acute Distress Cardiovascular: Normal S1, Normal S2 Lungs: Normal Air Movement Abdomen: Soft, No Tenderness Neurological: Strength at 5/5 X4 Ext, Normal Tone, Sensation Intact, Cranial Nerves 3-12 NL, Reflexes 2+ Extremities: No Clubbing, No Cyanosis, No Edema, Normal Pulses, No Tenderness/ Swelling Current Medications: Current Medications Sig/Keaton Start time Last Medication Dose Route Stop Time Status Admin Acetaminophen 500 MG Q6P PRN 06/13 1530 AC PO Albuterol Sulfate 3 ML TID 06/11 2100 AC 06/15 INH 1425 Amiodarone HCl 200 MG DAILY 06/15 0900 AC 06/15 PO 0904 Apixaban 5 MG BID 06/15 2100 AC PO Atorvastatin Calcium 10 MG DAILY 06/12 09 AC 06/15 PO 0904 Bisacodyl 5 MG DAILY 06/16 0900 AC PO Carvedilol 12.5 MG BID 06/11 2100 AC 06/15 PO 0904 Ceftazidime 1,000 MG Q12 06/12 2100 DC 06/15 IV 0931 Febuxostat 40 MG DAILY 06/12 09 AC 06/15 PO 0905 Ferrous Sulfate 325 MG DAILY 06/12 0900 AC 06/15 PO 0904 Gabapentin 400 MG TID 06/11 2100 AC 06/15 PO 1444 Guaifenesin 600 MG Q12 06/11 2100 AC 06/15 PO 0904 Hydroxyzine HCl 25 MG BID PRN 06/12 1830 AC PO Hydroxyzine HCl 10 MG BID 06/11 2145 AC 06/15 PO 0904 Insulin Aspart 0 TIDAC 06/14 0800 AC 06/15 SC 1733 Methylprednisolone 40 MG DAILY 06/14 0900 AC 06/15 IV 0904 Oxycodone HCl 5 MG Q24 PRN 06/16 0900 AC PO Oxycodone HCl 0 .STK-MED ONE 06/15 1445 DC PO Oxycodone HCl 5 MG Q24 06/15 1435 DC 06/15 PO 1444 Oxycodone HCl 5 MG ONCE ONE 06/15 0445 DC 06/15 PO 06/15 0446 0456 Oxycodone/ 1 TAB Q24 PRN 06/15 1445 AC Acetaminophen PO Oxycodone/ 1 TAB ONCE ONE 06/15 1230 DC 06/15 Acetaminophen PO 06/15 1231 1233 Oxycodone/ 1 TAB ONCE ONE 06/15 0100 DC 06/15 Acetaminophen PO 06/15 0101 0054 Oxycodone/ 0 .STK-MED ONE 06/15 0056 DC Acetaminophen PO Pantoprazole Sodium 40 MG BID 06/13 2100 AC 06/15 IV 0904 Polyethylene Glycol 17 GM DAILY 06/16 0900 AC PO Senna 187 MG AT BEDTIME 06/15 2100 AC PO Last 24 Hrs of Lab/Joaquim Results Last 24 Hrs of Labs/Mics: Laboratory Tests 06/15/18 0650: Anion Gap 2 L, Estimated GFR > 60, BUN/Creatinine Ratio 26.0 H, CBC w Diff NO MAN DIFF REQ, RBC 2.92 L, MCV 85.8, MCH 27.5, MCHC 32.1 L, RDW 15.6 H, MPV 5.8 L, Gran % 66.8, Lymphocytes % 22.1, Monocytes % 11.1 H, Eosinophils % 0, Basophils % 0, Absolute Granulocytes 7.4 H, Absolute Lymphocytes 2.4, Absolute Monocytes 1.2 H, Absolute Eosinophils 0, Absolute Basophils 0 06/14/180: CBC w Diff NO MAN DIFF REQ, RBC 3.08 L, MCV 85.8, MCH 27.3, MCHC 31.8 L, RDW 15.9 H, MPV 6.4 L, Gran % 82.0 H, Lymphocytes % 11.8 L, Monocytes % 6.1, Eosinophils % 0, Basophils % 0.1, Absolute Granulocytes 8.7 H, Absolute Lymphocytes 1.2, Absolute Monocytes 0.6, Absolute Eosinophils 0, Absolute Basophils 0 Assessment/Plan Assessment: Patient is 63-year-old gentleman with past medical history of COPD on 3 L nasal cannula, obstructive sleep apnea noncompliant with CPAP, chronic venous insufficiency, ischemic cardiomyopathy status post AICD placement, non-insulin- dependent dependent diabetes mellitus on metformin, hypertension, hyperlipidemia. He presented to [facility] for complaints of shortness of breath and was admitted to general medicine floor for management of acute on chronic hypoxemic hypercapnic respiratory failure in [place] which appeared to be pre-renal 1. GI bleed- patient is relatively better and HB is stable although complains of Rectal blood, the HB remains stable- f/u occult blood in stools and cbc tomorrow 2. Acute on chronic respiratory failure -patient is on 3.5 L nasal oxygen and is breathing better -poor compliance with CPAP -continue same medications n treatments 3. Atrial fibrillation- we restarted eliquis as per GI, before the patient complained of dark stools for now, will observe his HB and CBC continue other medication 4. home pain medications restarted as per patients pain requirement 5. d/c ceftazidinme as per Dr. Lu Problem List: 1. CHF exacerbation 2. Hypercapnic respiratory failure 3. Acute blood loss anemia Pain Ratin Pain Location: legs Pain Goal: Pain 4 or less Pain Plan: oxycodone 5mg and percocet 5/325mg prn Tomorrow's Labs & Rationales: cbc, pt, inr, Apergis Kinsey HARPER 06/15/18 1155: Attending MD Review Statement Attending Statement Attending MD Statement: examined this patient, discuss w/resident/PA/MARKET RISK SPECIALIST, agreed w/resident/PA/MARKET RISK SPECIALIST, reviewed EMR data (avail) Attending Assessment/Plan: 63M PMH CHF, chronic venous insufficiency, COPD (on baseline 3-4 L O2), A. fib on eliquis, sleep apnea, cardiomyopathy (status post AICD placement), NIDDM on metformin, HLD presenting with somnolence, dyspnea, found to be hypercapnic on ABG. Patient has recurrent admissions for similar, poorly compliant with medications, CPAP, and oxygen. He is sleepy and cannot give proper history, but has no complaints. Found to have pCO2 70, creatinine increased to 2.8. He appears clinically fluid overloaded with LE edema and mild crackles. CXR shows mild pulmonary edema. BNP 5100. Had an episode of dark stool, underwent EGD on 06/12 which showed gastric ulcer with visible vessel s/p cautery with no further episodes of bleeding. 1. Acute on chronic hypercapnic respiratory failure 2. COPD Exacerbation 3. LISETTE 4. Acute upper GI bleed due to gastric ulcer with visible vessel Plan - Continue on telemetry - Solumedrol 40mg daily - Nebulizer treatments round the clock - BiPAP PRN - Pulmonary, GI, cardiology consults - Continue Ceftazidime - Continue to hold Eliquis, will follow up with GI for restarting - Sputum culture - Continue home medications - DVT PPx
--- NOTE | 2018-06-15 07:22 | Patient Discharge Instructions ---
Discharge Instructions General Discharge Information You were seen/treated for: 1.GI bleed related to gastric ulcer 2. COPD exacerbation 3. Nonischemic cardiomyopathy with ejection fraction less than 30% 4. Indwelling AICD 5. Lower extremity edema with stasis changes and history of prior cellulitis 6. Abnormal ECG 7. History of paroxysmal atrial fibrillation Watch for these problems: any GI bleed, Shortness of breath Chest pain Palpitations Gout flare decreased urination Special Instructions: Please follow-up with PCP within 1 week of discharge Please follow with documentation engineer Dr. George within 1 week of discharge Please follow-up with pulmonology Dr. meyers within 1 week of discharge Please follow with GI to schedule future endoscopy, within 1 week of discharge. patient will need follow-up EGD in 8 weeks to assess healing of gastric ulcer with possible biopsy to rule out malignancy PLEASE FOLLOW UP FOR RESTART OF ELIQUIS AND FOLLOW UP HB/ CBC ON 06/21 Diet Recommended Diet: slowly advance diet Acute Coronary Syndrome Inclusion Criteria At DC or during hospital stay patient has or had the following: ACS DIAGNOSIS No Discharge Core Measures Meds if any: Prescribed or Continued at Discharge Meds if any: NOT Prescribed or Continued at Discharge Congestive Heart Failure Inclusion Criteria At DC or during hospital stay patient has or had the following: CHF DIAGNOSIS Yes Discharge Core Measures Meds if any: Prescribed or Continued at Discharge Meds if any: NOT Prescribed or Continued at Discharge Cerebrovascular accident Inclusion Criteria At DC or during hospital stay patient has or had the following: CVA/TIA Diagnosis No Discharge Core Measures Meds if any: Prescribed or Continued at Discharge Meds if any: NOT Prescribed or Continued at Discharge Venous thromboembolism Inclusion Criteria VTE Diagnosis No VTE Type NONE VTE Confirmed by (Test) NONE Discharge Core Measures - Per Current guidelines, there needs to be overlap - treatment for the first 5 days of Warfarin therapy. - If discharged on Warfarin prior to 5 days of - overlap therapy, the patient will need to be - assessed for post discharge needs including - *Post discharge parental anticoagulation - *Warfarin and/or parental anticoagulation education - *Follow up date to check INR post discharge At least 5 days overlap therapy as Inpatient Yes Meds if any: Prescribed or Continued at Discharge Note: Overlap Therapy is Warfarin and Anticoagulant Meds if any: NOT Prescribed or Continued at Discharge
[2018-06-15 07:36] VITALS: BP 112/64
[2018-06-15 07:56] LABS: ABSOLUTE BASOPHIL COUNT 0 /CUMM (0.0-0.2); ABSOLUTE EOSINOPHIL COUNT 0 /CUMM (0.0-0.7); ABSOLUTE GRANULOCYTE CT 7.4 /CUMM (1.4-6.5); ABSOLUTE LYMPH COUNT 2.4 /CUMM (1.2-3.4); ABSOLUTE MONOCYTE COUNT 1.2 /CUMM (0.10-0.60); BASOPHIL % 0 % (0.0-2.0); EOSINOPHIL % 0 % (0-5); GRANULOCYTE % 66.8 % (42.2-75.2); HEMATOCRIT 25.1 % (42-52); MEAN CORPUSCULAR HGB 27.5 PG (27.0-31.0); MEAN CORPUSCULAR HGB CONC 32.1 G/DL (33.0-37.0); MEAN CORPUSCULAR VOLUME 85.8 FL (80.0-94.0); MEAN PLATELET VOLUME 5.8 FL (7.4-10.4); PLATELET COUNT 277 /CUMM (130-400); RBC DISTRIBUTION WIDTH 15.6 % (11.5-14.5); RED BLOOD CELL CT 2.92 /CUMM (4.70-6.10); WHITE BLOOD CELL COUNT 11.1 /CUMM (4.8-10.8)
[2018-06-15 08:22] VITALS: BP 140/92
--- NOTE | 2018-06-15 09:31 | PN- Pulmonary ---
Subjective HPI/Critical Care Issues: The patient is awake and alert. Several attempts were made to place the patient on BiPAP last night however he refused and remains off therapy, and 3.5 L nasal cannula. Objective Current Medications: Current Medications Sig/Keaton Start time Last Medication Dose Route Stop Time Status Admin Acetaminophen 500 MG Q6P PRN 06/13 1530 AC PO Albuterol Sulfate 3 ML TID 06/11 2100 AC 06/15 INH 0850 Amiodarone HCl 200 MG DAILY 06/15 09 AC 06/15 PO 0904 Atorvastatin Calcium 10 MG DAILY 06/12 09 AC 06/15 PO 0904 Carvedilol 12.5 MG BID 06/11 2100 AC 06/15 PO 0904 Ceftazidime 1,000 MG Q12 06/12 2100 AC 06/14 IV 2226 Dextrose 25 GM ONCE ONE 06/14 1330 DC 06/14 IV 06/14 1331 1359 Febuxostat 40 MG DAILY 06/12 09 AC 06/15 PO 0905 Ferrous Sulfate 325 MG DAILY 06/12 09 AC 06/15 PO 0904 Gabapentin 400 MG TID 06/11 2100 AC 06/15 PO 0905 Guaifenesin 600 MG Q12 06/11 2100 AC 06/15 PO 0904 Hydroxyzine HCl 25 MG BID PRN 06/12 1830 AC PO Hydroxyzine HCl 10 MG BID 06/11 2145 AC 06/15 PO 0904 Insulin Aspart 0 TIDAC 06/14 0800 AC 06/15 SC 0904 Insulin Human Regular 10 UNITS ONCE ONE 06/14 1330 DC 06/14 IV 06/14 1331 1359 Methylprednisolone 40 MG DAILY 06/14 09 AC 06/15 IV 0904 Oxycodone HCl 5 MG ONCE ONE 06/15 0445 DC 06/15 PO 06/15 0446 0456 Oxycodone/ 1 TAB ONCE ONE 06/15 0100 DC 06/15 Acetaminophen PO 06/15 0101 0054 Oxycodone/ 0 .STK-MED ONE 06/15 0056 DC Acetaminophen PO Oxycodone/ 1 TAB ONCE ONE 06/14 1400 DC 06/14 Acetaminophen PO 06/14 1401 1359 Oxycodone/ 0 .STK-MED ONE 06/14 1359 DC Acetaminophen PO Pantoprazole Sodium 40 MG BID 06/13 2100 AC 06/15 IV 0904 Vital Signs & I&O Last 24 Hrs of Vitals and I&O: Vital Signs Date Time Temp Pulse Resp B/P B/P Pulse O2 O2 Flow FiO2 Mean Ox Delivery Rate 06/15 0904 76 140/92 06/15 0904 76 140/92 06/15 0822 76 140/92 06/15 0800 Nasal 3.5L Cannula 06/15 0736 98.4 76 20 112/64 94 Nasal 3.0L Cannula 06/15 0000 Nasal 3.5L Cannula 06/14 2259 97.6 78 20 140/70 96 Nasal Cannula 06/14 2227 76 130/70 06/14 1200 95 Nasal 3.5L Cannula 06/14 1200 97.0 76 20 130/70 95 Nasal 3.5L Cannula Intake & Output 06/15 1600 06/15 0800 06/15 0000 Intake Total 250 500 Output Total 700 Balance -450 500 Intake, Oral 250 500 Output, Urine 700 General Appearance: alert, awake, comfortable, morbidly obese Head: atraumatic, normal appearance Eyes: Bilateral: normal appearance Neck: supple Respiratory: decreased breath sounds with scattered rhonchi throughout both lung jaquez Cardiovascular: distant heart sounds Gastrointestinal: normal bowel sounds, soft, non-tender Extremities: Chronic lower extremity edema and venous stasis Skin: intact, normal color, warm/dry Results Last 24 Hrs of Lab Results: Laboratory Tests 06/15/18 0650: Anion Gap 2 L, Estimated GFR > 60, BUN/Creatinine Ratio 26.0 H, CBC w Diff NO MAN DIFF REQ, RBC 2.92 L, MCV 85.8, MCH 27.5, MCHC 32.1 L, RDW 15.6 H, MPV 5.8 L, Gran % 66.8, Lymphocytes % 22.1, Monocytes % 11.1 H, Eosinophils % 0, Basophils % 0, Absolute Granulocytes 7.4 H, Absolute Lymphocytes 2.4, Absolute Monocytes 1.2 H, Absolute Eosinophils 0, Absolute Basophils 0 06/14/18 1940: CBC w Diff NO MAN DIFF REQ, RBC 3.08 L, MCV 85.8, MCH 27.3, MCHC 31.8 L, RDW 15.9 H, MPV 6.4 L, Gran % 82.0 H, Lymphocytes % 11.8 L, Monocytes % 6.1, Eosinophils % 0, Basophils % 0.1, Absolute Granulocytes 8.7 H, Absolute Lymphocytes 1.2, Absolute Monocytes 0.6, Absolute Eosinophils 0, Absolute Basophils 0 06/14/18 1600: Sodium Cancelled, Potassium Cancelled, Chloride Cancelled, Carbon Dioxide Cancelled, Anion Gap Cancelled, BUN Cancelled, Creatinine Cancelled, Glucose Cancelled, Calcium Cancelled, Phosphorus Cancelled, Magnesium Cancelled, Total Bilirubin Cancelled, AST Cancelled, ALT Cancelled, Albumin Cancelled 06/14/18 1339: Sodium Cancelled, Potassium Cancelled, Chloride Cancelled, Carbon Dioxide Cancelled, Anion Gap Cancelled, BUN Cancelled, Creatinine Cancelled, BUN/ Creatinine Ratio Cancelled Impression/Plan Impression/Plan Impression/Plan: 1. Upper GI bleed with recent nsaid use, prior PUD,with acute blood loss anemia and hypotension, now resolved. He is s/p K-Centra administration, PRBCs and appears to be hemodynamically stable. Endoscopy positive for gastric ulcer with visible vessel and diffuse gastritis. 2. Chronic hypercarbic respiratory failure with copd and jory with noncompliance of bipap use. 3. COPDE with sig sputum - colonization likely. 4. Severe ischemic cardiomyopathy with Low EF with high risk for fluid overload. 5. Atrial fibrillation, previously on Eliquis, now on hold in the setting of GI bleed. 6. JORY noncompliant with nocturnal BiPAP therapy. 7. History of gout. 8. Upper extremity swelling, no dvt noted by ultrasound. 9. Acute kidney injury with ckd stage 2-3. 10. Recent multifocal pneumonia with respiratory failure. Will require a follow-up CT scan of the chest to ensure resolution of the pneumonia. 11. Hyperkalemia without EKG changes. 12. Mild leukocytosis, on ceftazidime for possible recurrent respiratory infection. Recommendations: * Continue to monitor for bleeding. * Continue proton pump inhibitor -72 hours in total in the setting of acute GI bleed. * Monitor CBCs. * Monitor strict I's and O's, avoid heart failure. * Slowly advance diet, for mechanical soft diet today. * Oxygen for saturations greater than 92%. * Nocturnal BiPAP to continue as tolerated. * Nebs/total respiratory care to continue. * Restart anticoagulation when ok with cardiology. * Hold off on any NSAIDs for the future. * The patient will require repeat EGD to assess healing of gastric ulcer in 8 weeks per GI. * Continue ceftaz for now and follow-up cultures -sputum recently positive for Pseudomonas and less recently, MRSA. The patient received vancomycin which is now off. * DVT prophylaxis with Venodyne's at all times.
--- NOTE | 2018-06-15 10:41 | PN- Cardiology ---
Subjective Subjective: Remained stable from cardiac perspective. No new cardiac symptoms. Objective Vital Signs and I&Os Vital Signs Date Time Temp Pulse Resp B/P B/P Pulse O2 O2 Flow FiO2 Mean Ox Delivery Rate 06/15 1013 96 Nasal 3.0L Cannula 06/15 0904 76 140/92 06/15 0904 76 140/92 06/15 0822 76 140/92 06/15 0800 Nasal 3.5L Cannula 06/15 0736 98.4 76 20 112/64 94 Nasal 3.0L Cannula 06/15 0000 Nasal 3.5L Cannula 06/14 2259 97.6 78 20 140/70 96 Nasal Cannula 06/14 2227 76 130/70 06/14 1200 95 Nasal 3.5L Cannula 06/14 1200 97.0 76 20 130/70 95 Nasal 3.5L Cannula Intake & Output 06/15 1600 06/15 0800 06/15 0000 06/14 1600 06/14 0800 06/14 0000 Intake Total 662 885 0837 120 922 Output Total 700 1700 1450 1350 Balance -450 500 -210 -1330 -428 Intake, IV 50 222 Intake, Oral 247 417 3203 120 700 Number 0 Bowel Movements Output, Urine 700 1700 1450 1350 Patient 380 lb Weight Physical Exam: General Appearance: well developed/nourished, overweight white male, alert, awake, oriented Head: normal HEENT: Normal Neck: supple, JVP normal, carotid upstrokes normal bilaterally, no masses or thyromegaly Respiratory: chest non-tender, clear to auscultation and percussion bilaterally Cardiovascular: regular rate/rhythm, normal S1, S2, 1-2/6 systolic murmur Abdomen: normal bowel sounds, soft, non-tender Extremities: normal inspection, edema and stasis changes noted Vascular: Pulses are 2+ and equal bilaterally Neurologic: Grossly normal/nonfocal Current Medications: Current Medications Sig/Keaton Start time Last Medication Dose Route Stop Time Status Admin Acetaminophen 500 MG Q6P PRN 06/13 1530 AC PO Albuterol Sulfate 3 ML TID 06/11 2100 AC 06/15 INH 0850 Amiodarone HCl 200 MG DAILY 06/15 0900 AC 06/15 PO 0904 Atorvastatin Calcium 10 MG DAILY 06/12 09 AC 06/15 PO 0904 Carvedilol 12.5 MG BID 06/11 2100 AC 06/15 PO 0904 Ceftazidime 1,000 MG Q12 06/12 2100 AC 06/15 IV 0931 Dextrose 25 GM ONCE ONE 06/14 1330 DC 06/14 IV 06/14 1331 1359 Febuxostat 40 MG DAILY 06/12 0900 AC 06/15 PO 0905 Ferrous Sulfate 325 MG DAILY 06/12 0900 AC 06/15 PO 0904 Gabapentin 400 MG TID 06/11 2100 AC 06/15 PO 0905 Guaifenesin 600 MG Q12 06/11 2100 AC 06/15 PO 0904 Hydroxyzine HCl 25 MG BID PRN 06/12 1830 AC PO Hydroxyzine HCl 10 MG BID 06/11 2145 AC 06/15 PO 0904 Insulin Aspart 0 TIDAC 06/14 0800 AC 06/15 SC 0904 Insulin Human Regular 10 UNITS ONCE ONE 06/14 1330 DC 06/14 IV 06/14 1331 1359 Methylprednisolone 40 MG DAILY 06/14 0900 AC 06/15 IV 0904 Oxycodone HCl 5 MG ONCE ONE 06/15 0445 DC 06/15 PO 06/15 0446 0456 Oxycodone/ 1 TAB ONCE ONE 06/15 0100 DC 06/15 Acetaminophen PO 06/15 0101 0054 Oxycodone/ 0 .STK-MED ONE 06/15 0056 DC Acetaminophen PO Oxycodone/ 1 TAB ONCE ONE 06/14 1400 DC 06/14 Acetaminophen PO 06/14 1401 1359 Oxycodone/ 0 .STK-MED ONE 06/14 1359 DC Acetaminophen PO Pantoprazole Sodium 40 MG BID 06/13 2100 AC 06/15 IV 0904 Results Last 48 Hrs of Labs/Mics: Laboratory Tests 06/15/18 0650: Anion Gap 2 L, Estimated GFR > 60, BUN/Creatinine Ratio 26.0 H, CBC w Diff NO MAN DIFF REQ, RBC 2.92 L, MCV 85.8, MCH 27.5, MCHC 32.1 L, RDW 15.6 H, MPV 5.8 L, Gran % 66.8, Lymphocytes % 22.1, Monocytes % 11.1 H, Eosinophils % 0, Basophils % 0, Absolute Granulocytes 7.4 H, Absolute Lymphocytes 2.4, Absolute Monocytes 1.2 H, Absolute Eosinophils 0, Absolute Basophils 0 06/14/18 1940: CBC w Diff NO MAN DIFF REQ, RBC 3.08 L, MCV 85.8, MCH 27.3, MCHC 31.8 L, RDW 15.9 H, MPV 6.4 L, Gran % 82.0 H, Lymphocytes % 11.8 L, Monocytes % 6.1, Eosinophils % 0, Basophils % 0.1, Absolute Granulocytes 8.7 H, Absolute Lymphocytes 1.2, Absolute Monocytes 0.6, Absolute Eosinophils 0, Absolute Basophils 0 06/14/18 1600: Sodium Cancelled, Potassium Cancelled, Chloride Cancelled, Carbon Dioxide Cancelled, Anion Gap Cancelled, BUN Cancelled, Creatinine Cancelled, Glucose Cancelled, Calcium Cancelled, Phosphorus Cancelled, Magnesium Cancelled, Total Bilirubin Cancelled, AST Cancelled, ALT Cancelled, Albumin Cancelled 06/14/18 1339: Sodium Cancelled, Potassium Cancelled, Chloride Cancelled, Carbon Dioxide Cancelled, Anion Gap Cancelled, BUN Cancelled, Creatinine Cancelled, BUN/ Creatinine Ratio Cancelled 06/14/18 0515: Anion Gap 5, Estimated GFR > 60, Glucose 162 H, Calcium 9.0, Phosphorus 3.6, Magnesium 2.1, Total Bilirubin 0.4, AST 11 L, ALT 21, Albumin 3.2 L, CBC w Diff NO MAN DIFF REQ, RBC 3.01 L, MCV 84.5, MCH 27.5, MCHC 32.5 L, RDW 15.7 H , MPV 6.2 L, Gran % 77.7 H, Lymphocytes % 13.4 L, Monocytes % 8.7, Eosinophils % 0, Basophils % 0.2, Absolute Granulocytes 9.8 H, Absolute Lymphocytes 1.7, Absolute Monocytes 1.1 H, Absolute Eosinophils 0, Absolute Basophils 0 06/14/18 0030: CBC w Diff NO MAN DIFF REQ, RBC 2.79 L, MCV 84.5, MCH 27.5, MCHC 32.5 L, RDW 15.7 H, MPV 6.8 L, Gran % 76.3 H, Lymphocytes % 14.2 L, Monocytes % 8.4, Eosinophils % 0, Basophils % 1.1, Absolute Granulocytes 7.8 H, Absolute Lymphocytes 1.4, Absolute Monocytes 0.9 H, Absolute Eosinophils 0, Absolute Basophils 0.1 06/13/18 1750: Troponin I 0.02, CBC w Diff NO MAN DIFF REQ, RBC 2.85 L, MCV 85.1, MCH 27.5, MCHC 32.3 L, RDW 15.9 H, MPV 6.3 L, Gran % 84.5 H, Lymphocytes % 10.0 L, Monocytes % 5.3, Eosinophils % 0, Basophils % 0.2, Absolute Granulocytes 8.5 H, Absolute Lymphocytes 1.0 L, Absolute Monocytes 0.5, Absolute Eosinophils 0, Absolute Basophils 0 06/13/18 1400: CBC w Diff Cancelled, WBC Cancelled, RBC Cancelled, Hgb Cancelled, Hct Cancelled , MCV Cancelled, MCH Cancelled, MCHC Cancelled, RDW Cancelled, Plt Count Cancelled, MPV Cancelled 06/13/18 1115: CBC w Diff NO MAN DIFF REQ, RBC 2.94 L, MCV 84.2, MCH 27.7, MCHC 32.9 L, RDW 15.4 H, MPV 6.5 L, Gran % 81.2 H, Lymphocytes % 12.9 L, Monocytes % 5.6, Eosinophils % 0.1, Basophils % 0.2, Absolute Granulocytes 8.4 H, Absolute Lymphocytes 1.3, Absolute Monocytes 0.6, Absolute Eosinophils 0, Absolute Basophils 0 06/13/18 1110: Troponin I 0.03 Assessment/Plan Assessment/Plan Assessment: 1. GI bleed related to gastric ulcer 2. COPD exacerbation 3. Nonischemic cardiomyopathy with ejection fraction less than 30% 4. Indwelling AICD 5. Lower extremity edema with stasis changes and history of prior cellulitis 6. Abnormal ECG 7. History of paroxysmal atrial fibrillation Recommendations: -The patient appears stable at the present time from a cardiac standpoint. Continue current medications for now. -I reviewed the EKG and his EKG is stable when compared previously with a slightly prolonged QTC. Continue current medications -Device interrogation shows one brief episode of atrial fibrillation but no significant other arrhythmias. -The day before yesterday, GI noted that the patient could be started on oral anticoagulation as long as there was no further evidence of bleeding. However, today's note notes trace blood in the stool. Please check with GI so that we can document when they feel it is safe to start his oral anticoagulation again. Continue telemetry? Yes
[2018-06-15] MEDS ORDERED: OXYCODONE-ACET1 EAC1 PO (14:24)
[2018-06-15 19:54] VITALS: BP 146/90
[2018-06-15 21:33] VITALS: BP 146/86
[2018-06-16 06:42] VITALS: BP 146/88
[2018-06-16] MEDS ORDERED: BISACODYL5 M1 PO (06:54)
[2018-06-16] MEDS ORDERED: MIRALAX119 GM PO (06:54)
[2018-06-16] MEDS ORDERED: SENNA-TIME S T1 EACH PO (06:54)
[2018-06-16] MEDS ORDERED: PERCOCET 5-3251 EACH PO (06:54)
--- NOTE | 2018-06-16 07:15 | PN- Housestaff ---
Casey Maya 06/16/18 0715: Subjective Follow-up For: GI bleed Complaints: no complaints Tele-Events Since Last Visit: patient did not have any significant telemtry events, HR is in 90- 100 range. in Atrial fibrillation Subjective: I spoke to the patient sitting the bedside. He said he was doing well and complained of pain in his legs and said that he did not get his pain medications consistently. He also complained of blood in his stools and I asked him to monitor his stools. After his bowel movement and noted the patient had well formed dark stools with blood in the toilet bowl. I called Dr. Rebolledo and she said that it is probably the old blood previous to the procedure that is being thrown out now. Also she asked to observe the patient and his hemoglobin every day. Review of Systems Constitutional: Denies: chills, diaphoresis, fever, malaise, weakness, unexplained weight loss. Cardiovascular: Denies: chest pain, edema, orthopena, palpitations, peripheral edema, syncope. Respiratory: Denies: cough, hemoptysis, orthopnea, short of breath, sputum production, stridor, wheezing. Gastrointestinal: Reports: bloody stool, changes in stool. Denies: abdominal pain, constipation, diarrhea, distention, bowel incontinence, vomiting. Genitourinary: Denies: discharge, dysuria, frequency, hematuria, hesitation, nocturia, pain, urgency. Objective Last 24 Hrs of Vital Signs/I&O Vital Signs Date Time Temp Pulse Resp B/P B/P Pulse O2 O2 Flow FiO2 Mean Ox Delivery Rate 06/16 0901 95 Nasal 3.0L Cannula 06/16 0800 Nasal 3.5L Cannula 06/16 0800 75 143/79 06/16 0800 75 143/79 06/16 0758 143/79 06/16 0642 98.1 75 20 146/88 96 Nasal Cannula 06/16 0010 77 98 06/15 2133 97.8 78 20 146/86 95 Nasal Cannula 06/15 2053 98 Nasal 3.0L Cannula 06/15 2040 78 146/86 06/15 2000 Nasal 3.5L Cannula 06/15 1954 97.5 76 20 146/90 96 Nasal Cannula Intake & Output 06/16 1600 06/16 0800 06/16 0000 Intake Total 500 720 Output Total 1100 1550 940 Balance -1100 -1050 -220 Intake, Oral 500 720 Output, Urine 1100 1550 940 Physical Exam General Appearance: Alert, Oriented X3, Cooperative, No Acute Distress Cardiovascular: Regular Rate, No Murmurs Lungs: Clear to Auscultation, Normal Air Movement Abdomen: Normal Bowel Sounds, Soft, No Tenderness, No Hepatospenomegaly, No Masses Neurological: Normal Speech, Strength at 5/5 X4 Ext, Normal Tone, Sensation Intact Extremities: B/L EDEMA PRESENT Current Medications: Current Medications Sig/Keaton Start time Last Medication Dose Route Stop Time Status Admin Acetaminophen 500 MG Q6P PRN 06/13 1530 AC PO Albuterol Sulfate 3 ML TID 06/11 2100 AC 06/16 INH 1338 Amiodarone HCl 200 MG DAILY 06/15 0900 AC 06/16 PO 0800 Apixaban 5 MG BID 06/15 2100 AC 06/16 PO 0800 Atorvastatin Calcium 10 MG DAILY 06/12 09 AC 06/16 PO 0800 Bisacodyl 5 MG DAILY 06/16 09 AC PO Carvedilol 12.5 MG BID 06/11 2100 AC 06/16 PO 0800 Ceftazidime 1,000 MG Q12 06/12 2100 DC 06/15 IV 0931 Febuxostat 40 MG DAILY 06/12 09 AC 06/16 PO 0800 Ferrous Sulfate 325 MG DAILY 06/12 0900 AC 06/16 PO 0800 Gabapentin 400 MG Q8 06/16 0811 CAN PO Gabapentin 400 MG TID 06/11 2100 AC 06/16 PO 1349 Guaifenesin 600 MG Q12 06/11 2100 AC 06/16 PO 0800 Hydroxyzine HCl 25 MG BID PRN 06/12 1830 AC PO Hydroxyzine HCl 10 MG BID 06/11 2145 AC 06/16 PO 0800 Insulin Aspart 0 TIDAC 06/14 0800 AC 06/16 SC 1246 Methylprednisolone 40 MG DAILY 06/14 09 DC 06/16 IV 0800 Oxycodone HCl 5 MG Q24 PRN 06/16 0900 AC PO Oxycodone HCl 5 MG ONCE ONE 06/16 0400 DC 06/16 PO 06/16 0401 0352 Oxycodone HCl 0 .STK-MED ONE 06/16 0353 DC PO Oxycodone HCl 0 .STK-MED ONE 06/15 1445 DC PO Oxycodone HCl 5 MG Q24 06/15 1435 DC 06/15 PO 1444 Oxycodone/ 1 TAB Q24 PRN 06/15 1445 AC 06/15 Acetaminophen PO 0 Pantoprazole Sodium 40 MG BID 06/13 2100 AC 06/16 IV 0800 Polyethylene Glycol 17 GM DAILY 06/16 09 AC PO Prednisone 40 MG DAILY 06/17 09 AC PO Senna 187 MG AT BEDTIME 06/15 2100 AC PO Last 24 Hrs of Lab/Joaquim Results Last 24 Hrs of Labs/Mics: Laboratory Tests 06/16/18 0625: Anion Gap 3 L, Estimated GFR > 60, BUN/Creatinine Ratio 19.0, CBC w Diff NO MAN DIFF REQ, RBC 2.95 L, MCV 85.6, MCH 27.5, MCHC 32.2 L, RDW 15.8 H, MPV 5.9 L , Gran % 66.3, Lymphocytes % 22.9, Monocytes % 10.3 H, Eosinophils % 0.3, Basophils % 0.2, Absolute Granulocytes 7.5 H, Absolute Lymphocytes 2.6, Absolute Monocytes 1.2 H, Absolute Eosinophils 0, Absolute Basophils 0 Assessment/Plan Assessment: Patient is 63-year-old gentleman with past medical history of COPD on 3 L nasal cannula, obstructive sleep apnea noncompliant with CPAP, chronic venous insufficiency, ischemic cardiomyopathy status post AICD placement, non-insulin- dependent dependent diabetes mellitus on metformin, hypertension, hyperlipidemia. He presented to [facility] ED for complaints of shortness of breath and was admitted to general medicine floor for management of acute on chronic hypoxemic hypercapnic respiratory failure in [place] which appeared to be pre-renal 1. GI bleed- Patient continues to have blood in stools but there dark and well formed suggestive of residual blood prior to the procedure, as per Dr. Rebolledo. f/u cbc tomorrow, patient will be observed in the hospital for a few more days 2. Acute on chronic respiratory failure -patient is on 3.5 L nasal oxygen and is breathing better -poor compliance with CPAP -continue same medications n treatments Prednisone 40 mg changed to oral in order to taper 3. Atrial fibrillation- we restarted eliquis as per GI, before the patient complained of dark stools. And Eliquis was stopped today as per GI consult for now, will observe his HB and CBC continue other medication 4. home pain medications restarted as per patients pain requirement Problem List: 1. GI bleed Pain Ratin Pain Location: LEGS Pain Goal: Pain 4 or less Pain Plan: Percocet Tomorrow's Labs & Rationales: CBCs, BP, magnesium Kinsey Marte MD 06/16/18 1152: Attending MD Review Statement Attending Statement Attending MD Statement: examined this patient, discuss w/resident/PA/IT APPLICATIONS ANALYST, agreed w/resident/PA/IT APPLICATIONS ANALYST, reviewed EMR data (avail) Attending Assessment/Plan: 63M PMH CHF, chronic venous insufficiency, COPD (on baseline 3-4 L O2), A. fib on eliquis, sleep apnea, cardiomyopathy (status post AICD placement), NIDDM on metformin, HLD presenting with somnolence, dyspnea, found to be hypercapnic on ABG. Patient has recurrent admissions for similar, poorly compliant with medications, CPAP, and oxygen. He is sleepy and cannot give proper history, but has no complaints. Found to have pCO2 70, creatinine increased to 2.8. He appears clinically fluid overloaded with LE edema and mild crackles. CXR shows mild pulmonary edema. BNP 5100. Had an episode of dark stool, underwent EGD on 06/12 which showed gastric ulcer with visible vessel s/p cautery with no further episodes of bleeding. Eliquis was restarted yesterday and had some clots in his stool this morning. Vitals and Hgb stable. 1. Acute on chronic hypercapnic respiratory failure 2. COPD Exacerbation 3. LISETTE 4. Acute upper GI bleed due to gastric ulcer with visible vessel Plan - Discontinue telemetry - Solumedrol 40mg daily - Nebulizer treatments round the clock - BiPAP PRN - Pulmonary, GI, cardiology consults - Discontinue antibiotics - Eliquis restarted, will check CBC tonight and tomorrow morning and monitor for bleeding - Sputum culture - Continue home medications - DVT PPx - Anticipated discharge tomorrow if no evidence of GI bleeding
--- NOTE | 2018-06-16 07:50 | PN- Pulmonary ---
Subjective HPI/Critical Care Issues: The patient is awake and alert. She reports feeling significantly improved. He tried the BiPAP for 1 hour overnight and then was uncomfortable so he took it off. He is on room air. He denies any increased shortness of breath, chest pain, abdominal pain, nausea, vomiting or any other associated issues. Objective Current Medications: Current Medications Sig/Keaton Start time Last Medication Dose Route Stop Time Status Admin Acetaminophen 500 MG Q6P PRN 06/13 1530 AC PO Albuterol Sulfate 3 ML TID 06/11 2100 AC 06/15 INH 2050 Amiodarone HCl 200 MG DAILY 06/15 0900 AC 06/15 PO 0904 Apixaban 5 MG BID 06/15 2100 AC 06/15 PO 204 Atorvastatin Calcium 10 MG DAILY 06/12 09 AC 06/15 PO 0904 Bisacodyl 5 MG DAILY 06/16 0900 AC PO Carvedilol 12.5 MG BID 06/11 2100 AC 06/15 PO 2040 Ceftazidime 1,000 MG Q12 06/12 2100 DC 06/15 IV 0931 Febuxostat 40 MG DAILY 06/12 0900 AC 06/15 PO 0905 Ferrous Sulfate 325 MG DAILY 06/12 0900 AC 06/15 PO 0904 Gabapentin 400 MG TID 06/11 2100 AC 06/15 PO 2039 Guaifenesin 600 MG Q12 06/11 2100 AC 06/15 PO 2039 Hydroxyzine HCl 25 MG BID PRN 06/12 1830 AC PO Hydroxyzine HCl 10 MG BID 06/11 2145 AC 06/15 PO 2040 Insulin Aspart 0 TIDAC 06/14 0800 AC 06/15 SC 1733 Methylprednisolone 40 MG DAILY 06/14 0900 AC 06/15 IV 0904 Oxycodone HCl 5 MG Q24 PRN 06/16 0900 AC PO Oxycodone HCl 5 MG ONCE ONE 06/16 0400 DC 06/16 PO 06/16 0401 0352 Oxycodone HCl 0 .STK-MED ONE 06/16 0353 DC PO Oxycodone HCl 0 .STK-MED ONE 06/15 1445 DC PO Oxycodone HCl 5 MG Q24 06/15 1435 DC 06/15 PO 1444 Oxycodone/ 1 TAB Q24 PRN 06/15 1445 AC 06/15 Acetaminophen PO 2040 Oxycodone/ 1 TAB ONCE ONE 06/15 1230 DC 06/15 Acetaminophen PO 06/15 1231 1233 Pantoprazole Sodium 40 MG BID 06/13 2100 AC 06/15 IV 2040 Polyethylene Glycol 17 GM DAILY 06/16 0900 AC PO Senna 187 MG AT BEDTIME 06/15 2100 AC PO Vital Signs & I&O Last 24 Hrs of Vitals and I&O: Vital Signs Date Time Temp Pulse Resp B/P B/P Pulse O2 O2 Flow FiO2 Mean Ox Delivery Rate 06/16 0642 98.1 75 20 146/88 96 Nasal Cannula 06/16 0010 77 98 06/15 2133 97.8 78 20 146/86 95 Nasal Cannula 06/15 205 98 Nasal 3.0L Cannula 06/15 2040 78 146/86 06/15 2000 Nasal 3.5L Cannula 06/15 195 97.5 76 20 146/90 96 Nasal Cannula 06/15 1013 96 Nasal 3.0L Cannula 06/15 0904 76 140/92 06/15 0904 76 140/92 06/15 0822 76 140/92 06/15 0800 Nasal 3.5L Cannula Intake & Output 06/16 0800 06/16 0000 06/15 1600 Intake Total 465 784 8465 Output Total 4981 130 2252 Balance -1050 -220 -34 Intake, IV 41 Intake, Oral 599 970 4660 Number 1 Bowel Movements Output, Urine 4877 501 8796 General Appearance: alert, awake, comfortable, morbidly obese Head: atraumatic, normal appearance Eyes: Bilateral: normal appearance Neck: supple Respiratory: decreased breath sounds with scattered rhonchi throughout both lung jaquez Cardiovascular: distant heart sounds Gastrointestinal: normal bowel sounds, soft, non-tender Extremities: Chronic lower extremity edema and venous stasis Skin: intact, warm/dry Results Last 24 Hrs of Lab Results: Laboratory Tests 06/16/18 0625: Sodium Pending, Potassium Pending, Chloride Pending, Carbon Dioxide Pending, Anion Gap Pending, BUN Pending, Creatinine Pending, BUN/Creatinine Ratio Pending , CBC w Diff Pending, WBC Pending, RBC Pending, Hgb Pending, Hct Pending, MCV Pending, MCH Pending, MCHC Pending, RDW Pending, Plt Count Pending, MPV Pending Impression/Plan Impression/Plan Impression/Plan: 1. Upper GIB with recent nsaid use, s/p EGD, no active bleeding at present. 2. Chronic hypercarbic respiratory failure with COPD and JORY with noncompliance of bipap use. 3. COPDE with history of pseudomonas. 4. 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 5. Atrial fibrillation, previously on Eliquis, now on hold in the setting of GI bleed. 6. JORY noncompliant with nocturnal BiPAP therapy. 7. History of gout. 8. Upper extremity swelling, no DVT noted by ultrasound. 9. Acute kidney injury with ckd stage 2-3. 10. Recent multifocal pneumonia with respiratory failure. Will require a follow-up CT scan of the chest to ensure resolution of the pneumonia (will be ordered by my office). 11. Hyperkalemia without EKG changes. Recommendations: * Follow up AM labs. * Follow up potassium levels. * Monitor strict I's and O's, avoid volume overload. * Oxygen for saturations greater than 92%. * Nocturnal APAP to continue as tolerated. * Nebs/total respiratory care to continue. * Change to prednisone 40 mg daily. Will taper off quickly. * Monitor off antibiotics. * DVT prophylaxis at all times.
[2018-06-16 07:58] VITALS: BP 143/79
[2018-06-16 08:12] LABS: ABSOLUTE BASOPHIL COUNT 0 /CUMM (0.0-0.2); ABSOLUTE EOSINOPHIL COUNT 0 /CUMM (0.0-0.7); ABSOLUTE GRANULOCYTE CT 7.5 /CUMM (1.4-6.5); ABSOLUTE LYMPH COUNT 2.6 /CUMM (1.2-3.4); ABSOLUTE MONOCYTE COUNT 1.2 /CUMM (0.10-0.60); BASOPHIL % 0.2 % (0.0-2.0); EOSINOPHIL % 0.3 % (0-5); GRANULOCYTE % 66.3 % (42.2-75.2); HEMATOCRIT 25.3 % (42-52); MEAN CORPUSCULAR HGB 27.5 PG (27.0-31.0); MEAN CORPUSCULAR HGB CONC 32.2 G/DL (33.0-37.0); MEAN CORPUSCULAR VOLUME 85.6 FL (80.0-94.0); MEAN PLATELET VOLUME 5.9 FL (7.4-10.4); PLATELET COUNT 292 /CUMM (130-400); RBC DISTRIBUTION WIDTH 15.8 % (11.5-14.5); RED BLOOD CELL CT 2.95 /CUMM (4.70-6.10); WHITE BLOOD CELL COUNT 11.4 /CUMM (4.8-10.8)
[2018-06-16 14:25] VITALS: BP 141/74
[2018-06-16 21:35] VITALS: BP 142/78
[2018-06-17 05:52] VITALS: BP 140/80
--- NOTE | 2018-06-17 07:15 | PN- Housestaff ---
Casey Maya 06/17/18 0714: Subjective Follow-up For: GI bleed Complaints: no complaints Tele-Events Since Last Visit: None Subjective: Patient was doing much better. Discharge plan was discussed and the patient was asked to go for a short-term rehab. Patient denied to that and decided to leave AGAINST MEDICAL ADVICE. Hence patient was given CMR and asked to follow-up outpatient for follow-up hemoglobin and restart of Eliquis and required. Review of Systems Constitutional: Reports: see HPI. Objective Last 24 Hrs of Vital Signs/I&O none Physical Exam General Appearance: Alert, Oriented X3, Cooperative, No Acute Distress Cardiovascular: Regular Rate, No Murmurs Lungs: Normal Air Movement Abdomen: Soft, No Tenderness Neurological: Normal Speech, Strength at 5/5 X4 Ext, Normal Tone, Sensation Intact, Cranial Nerves 3-12 NL, Reflexes 2+ Current Medications: Current Medications Sig/Keaton Start time Last Medication Dose Route Stop Time Status Admin Acetaminophen 500 MG Q6P PRN 06/13 1530 DCD PO Albuterol Sulfate 3 ML TID 06/11 2100 DCD 06/17 INH 1333 Amiodarone HCl 200 MG DAILY 06/15 0900 DCD 06/17 PO 0921 Atorvastatin Calcium 10 MG DAILY 06/12 09 DCD 06/17 PO 0922 Bisacodyl 5 MG DAILY 06/16 0900 DCD 06/17 PO 0921 Carvedilol 12.5 MG BID 06/11 2100 DCD 06/17 PO 0921 Febuxostat 40 MG DAILY 06/12 0900 DCD 06/17 PO 0923 Ferrous Sulfate 325 MG DAILY 06/12 0900 DCD 06/17 PO 0922 Furosemide 40 MG BID 06/17 0900 DCD 06/17 PO 0921 Gabapentin 400 MG TID 06/11 2100 DCD 06/17 PO 0923 Guaifenesin 600 MG Q12 06/11 2100 DCD 06/17 PO 0923 Hydroxyzine HCl 25 MG BID PRN 06/12 1830 DCD PO Hydroxyzine HCl 10 MG BID 06/11 2145 DCD 06/17 PO 0920 Insulin Aspart 0 TIDAC 06/14 0800 DCD 06/17 SC 1259 Losartan Potassium 25 MG DAILY 06/17 0900 DCD 06/17 PO 0922 Omeprazole 40 MG DAILY AC 08/24 0700 DCD PO Oxycodone HCl 5 MG TID PRN 06/16 1958 DCD 06/17 PO 0648 Oxycodone/ 1 TAB Q24 PRN 06/15 1445 DCD 06/16 Acetaminophen PO 2007 Polyethylene Glycol 17 GM DAILY 06/16 0900 DCD PO Prednisone 40 MG DAILY 06/17 0900 DCD 06/17 PO 06/19 0859 0922 Senna 187 MG AT BEDTIME 06/15 2100 DCD PO Assessment/Plan Assessment: Patient is 63-year-old gentleman with past medical history of COPD on 3 L nasal cannula, obstructive sleep apnea noncompliant with CPAP, chronic venous insufficiency, ischemic cardiomyopathy status post AICD placement, non-insulin- dependent dependent diabetes mellitus on metformin, hypertension, hyperlipidemia. He presented to [facility] for complaints of shortness of breath and was admitted to general medicine floor for management of acute on chronic hypoxemic hypercapnic respiratory failure in [place] which appeared to be pre-renal 1. GI bleed- Patient was asked to follow-up outpatient with Dr. Rebolledo to monitor hemoglobin and any subsequent GI bleed and for follow-up of Eliquis restarted 2. Acute on chronic respiratory failure -patient is on 3.5 L nasal oxygen and is breathing better -poor compliance with CPAP -continue same medications n treatments Prednisone 40 mg changed to oral in order to taper 3. Atrial fibrillation- we restarted eliquis as per GI, before the patient complained of dark stools. And Eliquis was stopped today as per GI consult and will restart as per outpatient advice for now, will observe his HB and CBC continue other medication 4. home pain medications restarted as per patients pain requirement Problem List: 1. CHF exacerbation Pain Ratin Pain Location: none Pain Goal: Remain pain free Pain Plan: none Tomorrow's Labs & Rationales: none Kinsey Marte MD 06/17/18 1042: Attending MD Review Statement Attending Statement Attending MD Statement: examined this patient, discuss w/resident/PA/SECURITY SUPERVISOR, agreed w/resident/PA/SECURITY SUPERVISOR, reviewed EMR data (avail) Attending Assessment/Plan: 63M PMH CHF, chronic venous insufficiency, COPD (on baseline 3-4 L O2), A. fib on eliquis, sleep apnea, cardiomyopathy (status post AICD placement), NIDDM on metformin, HLD presenting with somnolence, dyspnea, found to be hypercapnic on ABG. Patient has recurrent admissions for similar, poorly compliant with medications, CPAP, and oxygen. He is sleepy and cannot give proper history, but has no complaints. Found to have pCO2 70, creatinine increased to 2.8. He appears clinically fluid overloaded with LE edema and mild crackles. CXR shows mild pulmonary edema. BNP 5100. Had an episode of dark stool, underwent EGD on 06/12 which showed gastric ulcer with visible vessel s/p cautery. After Eliquis was restarted had clots and blood in stool. Discussed risks and benefits of Eliquis with patient and will stop Eliquis for now and will be restarted as an outpatient. 1. Acute on chronic hypercapnic respiratory failure 2. COPD Exacerbation 3. LISETTE 4. Acute upper GI bleed due to gastric ulcer with visible vessel Plan - Stable for discharge. Not a safe discharge to home as he lives in his truck in a parking lot. Will require rehab, however yasmine is refusing. He will sign out against medical advice and is aware of risks of doing so. See resident note and discharge summary for full details. - Prednisone taper - Pulmonary, GI, cardiology outpatient referrals - Eliquis to be restarted as an outpatient - Continue home medications
--- NOTE | 2018-06-17 07:43 | PN- Pulmonary ---
Subjective HPI/Critical Care Issues: The patient is awake and alert. He complains of increasing pain secondary to lower extremity neuropathy. His respiratory status has significantly improved. There were no overnight events and the patient offers no new complaints today. Objective Current Medications: Current Medications Sig/Keaton Start time Last Medication Dose Route Stop Time Status Admin Acetaminophen 500 MG Q6P PRN 06/13 1530 AC PO Albuterol Sulfate 3 ML TID 06/11 2100 AC 06/16 INH 2101 Amiodarone HCl 200 MG DAILY 06/15 09 AC 06/16 PO 0800 Apixaban 5 MG BID 06/15 2100 DC 06/16 PO 0800 Atorvastatin Calcium 10 MG DAILY 06/12 09 AC 06/16 PO 0800 Bisacodyl 5 MG DAILY 06/16 09 AC PO Carvedilol 12.5 MG BID 06/11 2100 AC 06/16 PO 2008 Febuxostat 40 MG DAILY 06/12 09 AC 06/16 PO 0800 Ferrous Sulfate 325 MG DAILY 06/12 09 AC 06/16 PO 0800 Furosemide 40 MG BID 06/17 09 AC PO Gabapentin 400 MG Q8 06/16 0811 CAN PO Gabapentin 400 MG TID 06/11 2100 AC 06/16 PO 2007 Guaifenesin 600 MG Q12 06/11 2100 AC 06/16 PO 2008 Hydroxyzine HCl 25 MG BID PRN 06/12 1830 AC PO Hydroxyzine HCl 10 MG BID 06/11 2145 AC 06/16 PO 2008 Insulin Aspart 0 TIDAC 06/14 0800 AC 06/16 SC 1711 Losartan Potassium 25 MG DAILY 06/17 09 AC PO Methylprednisolone 40 MG DAILY 06/14 09 DC 06/16 IV 0800 Oxycodone HCl 5 MG TID PRN 06/16 1958 AC 06/17 PO 0648 Oxycodone HCl 5 MG Q24 PRN 06/16 09 DC PO Oxycodone/ 1 TAB Q24 PRN 06/15 1445 AC 06/16 Acetaminophen PO 2008 Pantoprazole Sodium 40 MG BID 06/13 2100 AC 06/16 IV 2008 Polyethylene Glycol 17 GM DAILY 06/16 0900 AC PO Prednisone 40 MG DAILY 06/17 0900 DC PO Prednisone 40 MG DAILY 06/17 0900 AC PO 06/19 0859 Senna 187 MG AT BEDTIME 06/15 2100 AC PO Vital Signs & I&O Last 24 Hrs of Vitals and I&O: Vital Signs Date Time Temp Pulse Resp B/P B/P Pulse O2 O2 Flow FiO2 Mean Ox Delivery Rate 06/17 0552 97.9 75 20 140/80 97 CPAP 06/17 0042 75 93 06/17 0010 94 Nasal 3.0L Cannula 06/165 97.8 78 20 142/78 95 Nasal Cannula 06/16 2106 Nasal 3.5L Cannula 06/16 2008 78 142/87 06/16 1600 Nasal 3.5L Cannula 06/16 1425 98.2 75 20 141/74 93 Nasal 3.0L Cannula 06/16 0901 95 Nasal 3.0L Cannula 06/16 0800 Nasal 3.5L Cannula 06/16 0800 75 143/79 06/16 0800 75 143/79 06/16 0758 143/79 Intake & Output 06/17 0800 06/17 0000 06/16 1600 Intake Total 201 852 7312 Output Total 2200 1425 1100 Balance -1480 -945 160 Intake, Oral 552 960 7486 Number 1 2 Bowel Movements Output, Urine 2200 1425 1100 General Appearance: alert, awake, comfortable, morbidly obese Head: atraumatic, normal appearance Eyes: Bilateral: normal appearance Neck: supple Respiratory: improved breath sounds with scattered rhonchi throughout both lung jaquez Cardiovascular: distant heart sounds Gastrointestinal: normal bowel sounds, soft, non-tender Extremities: Chronic lower extremity edema and venous stasis Skin: warm/dry Results Last 24 Hrs of Lab Results: Laboratory Tests 06/17/18 0610: CBC w Diff Pending, WBC Pending, RBC Pending, Hgb Pending, Hct Pending, MCV Pending, MCH Pending, MCHC Pending, RDW Pending, Plt Count Pending, MPV Pending Impression/Plan Impression/Plan Impression/Plan: 1. Upper GIB with recent nsaid use, s/p EGD. 2. Chronic hypercarbic respiratory failure with COPD and JORY with noncompliance of bipap use. 3. COPDE with history of pseudomonas. 4. 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 5. Atrial fibrillation, previously on Eliquis, remains on hold in the setting of GI bleed. 6. JORY noncompliant with nocturnal BiPAP therapy. 7. History of gout. 8. Upper extremity swelling, no DVT noted by ultrasound. 9. Acute kidney injury with ckd stage 2-3. 10. Recent multifocal pneumonia with respiratory failure. Will require a follow-up CT scan of the chest to ensure resolution of the pneumonia (ordered by my office). 11. Hyperkalemia without EKG changes. Recommendations: * Follow up AM labs. * Follow up potassium levels. * Monitor strict I's and O's, avoid volume overload. * Oxygen for saturations greater than 92%. * Nocturnal APAP to continue as tolerated. * Nebs/total respiratory care to continue. * Change to prednisone 40 mg daily. Will taper off quickly. * Monitor off antibiotics. * DVT prophylaxis at all times. * My office will make a follow-up appointment for the patient to see Dr. Puente post discharge.
[2018-06-17 08:15] LABS: ABSOLUTE BASOPHIL COUNT 0 /CUMM (0.0-0.2); ABSOLUTE EOSINOPHIL COUNT 0 /CUMM (0.0-0.7); ABSOLUTE GRANULOCYTE CT 5.9 /CUMM (1.4-6.5); ABSOLUTE LYMPH COUNT 2.6 /CUMM (1.2-3.4); ABSOLUTE MONOCYTE COUNT 1.1 /CUMM (0.10-0.60); BASOPHIL % 0.3 % (0.0-2.0); EOSINOPHIL % 0.1 % (0-5); GRANULOCYTE % 61.3 % (42.2-75.2); HEMATOCRIT 25.2 % (42-52); MEAN CORPUSCULAR HGB 27.7 PG (27.0-31.0); MEAN CORPUSCULAR HGB CONC 32.4 G/DL (33.0-37.0); MEAN CORPUSCULAR VOLUME 85.5 FL (80.0-94.0); MEAN PLATELET VOLUME 6.2 FL (7.4-10.4); PLATELET COUNT 283 /CUMM (130-400); RBC DISTRIBUTION WIDTH 15.8 % (11.5-14.5); RED BLOOD CELL CT 2.94 /CUMM (4.70-6.10); WHITE BLOOD CELL COUNT 9.6 /CUMM (4.8-10.8)
[2018-06-17 09:22] VITALS: BP 144/90
[2018-06-17] MEDS ORDERED: OMEPRAZOLE20 M2 PO (10:42)
--- NOTE | 2018-06-17 13:34 | PN- Cardiology ---
Subjective Subjective: Cardiac status stable. No new issues or arrhythmias noted. Objective Vital Signs and I&Os Vital Signs Date Time Temp Pulse Resp B/P B/P Pulse O2 O2 Flow FiO2 Mean Ox Delivery Rate 06/17 09 111 144/90 06/17 09 111 144/90 06/17 0921 111 144/90 06/17 08 Nasal 3.5L Cannula 06/17 0552 97.9 75 20 140/80 97 CPAP 06/17 0042 75 93 06/17 0010 94 Nasal 3.0L Cannula 06/16 2135 97.8 78 20 142/78 95 Nasal Cannula 06/16 2106 Nasal 3.5L Cannula 06/16 2008 78 142/87 06/16 1600 Nasal 3.5L Cannula 06/16 1425 98.2 75 20 141/74 93 Nasal 3.0L Cannula Intake & Output 06/17 1600 06/17 0800 06/17 0000 06/16 1600 06/16 0800 06/16 0000 Intake Total 244 590 7882 500 720 Output Total 2200 1425 1100 1550 940 Balance -1480 -945 160 -1050 -220 Intake, Oral 291 959 8824 500 720 Number 1 2 Bowel Movements Output, Urine 2200 1425 1100 1550 940 Physical Exam: General Appearance: well developed/nourished, overweight white male alert, awake , oriented Head: normal HEENT: Normal Neck: supple, JVP normal, carotid upstrokes normal bilaterally, no masses or thyromegaly Respiratory: chest non-tender, clear to auscultation and percussion bilaterally Cardiovascular: regular rate/rhythm, normal S1, S2, 2/6 systolic murmur Abdomen: normal bowel sounds, soft, non-tender Extremities: Bilateral edema with stasis change Vascular: Pulses are 2+ and equal bilaterally Neurologic: Grossly normal/nonfocal Current Medications: Current Medications Sig/Keaton Start time Last Medication Dose Route Stop Time Status Admin Acetaminophen 500 MG Q6P PRN 06/13 1530 AC PO Albuterol Sulfate 3 ML TID 06/11 2100 AC 06/17 INH 1333 Amiodarone HCl 200 MG DAILY 06/15 0900 AC 06/17 PO 0921 Apixaban 5 MG BID 06/15 2100 DC 06/16 PO 0800 Atorvastatin Calcium 10 MG DAILY 06/12 09 AC 06/17 PO 09 Bisacodyl 5 MG DAILY 06/16 09 AC 06/17 PO 0921 Carvedilol 12.5 MG BID 06/11 2100 AC 06/17 PO 09 Febuxostat 40 MG DAILY 06/12 09 AC 06/17 PO 09 Ferrous Sulfate 325 MG DAILY 06/12 09 AC 06/17 PO 0922 Furosemide 40 MG BID 06/17 0900 AC 06/17 PO 0921 Gabapentin 400 MG TID 06/11 2100 AC 06/17 PO 0923 Guaifenesin 600 MG Q12 06/11 2100 AC 06/17 PO 0923 Hydroxyzine HCl 25 MG BID PRN 06/12 1830 AC PO Hydroxyzine HCl 10 MG BID 06/11 2145 AC 06/17 PO 0920 Insulin Aspart 0 TIDAC 06/14 08 AC 06/17 SC 1259 Losartan Potassium 25 MG DAILY 06/17 09 AC 06/17 PO 0922 Omeprazole 40 MG DAILY AC 06/18 0700 AC PO Oxycodone HCl 5 MG TID PRN 06/16 1958 AC 06/17 PO 0648 Oxycodone HCl 5 MG Q24 PRN 06/16 09 DC PO Oxycodone/ 1 TAB Q24 PRN 06/15 1445 AC 06/16 Acetaminophen PO 2007 Pantoprazole Sodium 40 MG BID 06/13 2100 DC 06/17 IV 0924 Polyethylene Glycol 17 GM DAILY 06/16 09 AC PO Prednisone 40 MG DAILY 06/17 09 DC PO Prednisone 40 MG DAILY 06/17 0900 AC 06/17 PO 06/19 0859 0922 Senna 187 MG AT BEDTIME 06/15 2100 AC PO Results Last 48 Hrs of Labs/Mics: Laboratory Tests 06/17/18 09: Anion Gap 3 L, Estimated GFR > 60, BUN/Creatinine Ratio 22.5, Magnesium 1.9 06/17/18 0610: CBC w Diff NO MAN DIFF REQ, RBC 2.94 L, MCV 85.5, MCH 27.7, MCHC 32.4 L, RDW 15.8 H, MPV 6.2 L, Gran % 61.3, Lymphocytes % 27.2, Monocytes % 11.1 H, Eosinophils % 0.1, Basophils % 0.3, Absolute Granulocytes 5.9, Absolute Lymphocytes 2.6, Absolute Monocytes 1.1 H, Absolute Eosinophils 0, Absolute Basophils 0 06/16/18 0625: Anion Gap 3 L, Estimated GFR > 60, BUN/Creatinine Ratio 19.0, CBC w Diff NO MAN DIFF REQ, RBC 2.95 L, MCV 85.6, MCH 27.5, MCHC 32.2 L, RDW 15.8 H, MPV 5.9 L , Gran % 66.3, Lymphocytes % 22.9, Monocytes % 10.3 H, Eosinophils % 0.3, Basophils % 0.2, Absolute Granulocytes 7.5 H, Absolute Lymphocytes 2.6, Absolute Monocytes 1.2 H, Absolute Eosinophils 0, Absolute Basophils 0 Assessment/Plan Assessment/Plan Assessment: 1. GI bleed related to gastric ulcer 2. COPD exacerbation 3. Nonischemic cardiomyopathy with ejection fraction less than 30% 4. Indwelling AICD 5. Lower extremity edema with stasis changes and history of prior cellulitis 6. Abnormal ECG 7. History of paroxysmal atrial fibrillation Recommendations: -The patient appears stable at the present time from a cardiac standpoint. Continue current medications for now. -Device interrogation shows one brief episode of atrial fibrillation but no significant other arrhythmias. -Plan discussed with the housestaff today. For now, I would recommend that we let the patient restart his anticoagulation on Thursday. A follow-up CBCs can be performed 48-72 hours later to document stability of his hemoglobin and hematocrit. -Check and make sure that this plan is okay with the GI service -Follow-up with me to be scheduled. Continue telemetry? No
[2018-06-17] MEDS ORDERED: OMEPRAZOLE40 M1 PO (13:59)
[2018-06-17] MEDS ORDERED: PERCOCET 5-3251 EACH PO (14:01)
[2018-06-17] MEDS ORDERED: SENNA-TIME S T1 EACH PO (14:01)
[2018-06-17] MEDS ORDERED: BISACODYL5 M1 PO (14:01)
[2018-06-17] MEDS ORDERED: MIRALAX119 GM PO (14:01)
--- NOTE | 2018-06-17 22:45 | Discharge Summary ---
Hospital Course Allergies: Coded Allergies: No Known Allergies (01/08/18) Discharge Instructions Medications at Discharge Discharge Medications: Stop taking the following medications: Acetaminophen (Acetaminophen) 500 MG TABLET ORAL DAILY as needed for PAIN Qty = 30 Sulfamethoxazole/Trimethoprim (Bactrim Ds Tablet) 800 MG-160 MG TABLET ORAL TWICE DAILY Qty = 13 Continue taking these medications: Umeclidinium [place] (Incruse Ellipta) 62.5 MCG/ACTUATION BLST.W.DEV 1 PUFF Inhale through mouth DAILY Qty = 90 Comments: NOT GIVEN IN HOSPITAL Albuterol Sulfate (Proair Hfa) 90 MCG HFA.AER.AD 2 Puff Inhale through mouth EVERY 4-6 HOURS NEEDED as needed for COPD Comments: Last Taken: 06/17/18 Time: 08:00 AM Glimepiride (Glimepiride) 1 MG TABLET 1 Tablet ORAL TWICE DAILY Comments: NOT GIVEN IN HOSPITAL INSULIN GIVEN NEEDED PER SCALE Montelukast Sodium (Singulair) 10 MG TABLET 1 Tablet ORAL TWICE DAILY Comments: NOT GIVEN Metformin HCl (Glucophage) 1,000 MG TABLET 1 Tablet ORAL TWICE DAILY Comments: NOT GIVEN IN HOSPITAL Ipratropium/Albuterol Sulfate (Combivent Respimat Inhal [place]) 20 MCG-100 MCG/ ACTUATION MIST.INHAL 2 PUFF Inhale through mouth TWICE DAILY Qty = 8 Comments: NOT GIVEN IN HOSPITAL Hydroxyzine Hydrochloride (Atarax) 50 MG TABLET 2 Tablet ORAL TWICE DAILY Qty = 120 Comments: Last Taken: 05/13/18 Time: 0806 Ferrous Sulfate (Ferrous Sulfate) 325 MG (65 MG IRON) TABLET 1 Tablet ORAL DAILY Qty = 30 Comments: Last Taken: 06/17/18 Time: 9:00 AM Fluticasone/Salmeterol (Advair 500-50 Diskus) 500 MCG-50 MCG/DOSE BLST.W.DEV 1 Puff Inhale through mouth TWICE DAILY Qty = 60 Comments: NOT GIVEN WHILE IN HOSPITAL Febuxostat (Uloric) 40 MG TABLET 40 Milligram ORAL DAILY Qty = 30 Comments: Last Taken: 06/17/18 Time: 9:00 AM Ammonium Lactate (Ammonium Lactate) 12 % CREAM..G. 12 Percent TOPICAL TWICE DAILY Qty = 1 Instructions: . Comments: NOT GIVEN Gabapentin (Gabapentin) 400 MG CAPSULE 1 Capsule ORAL THREE TIMES DAILY Comments: Last Taken: 06/17/18 Time: 9:00 AM Carvedilol (Coreg) 25 MG TABLET 0.5 Tablet ORAL TWICE DAILY Comments: Last Taken: 05/13/18 Time: 08:06 Amiodarone (Cordarone) 200 MG TAB 1 Tablet ORAL DAILY Qty = 30 Comments: Last Taken: 06/17/18 Time: 9:00 AM Atorvastatin Calcium (Atorvastatin Calcium) 10 MG TABLET 1 Tablet ORAL DAILY Qty = 30 Comments: Last Taken: 06/17/18 Time: 9:00 AM Guaifenesin (Guaifenesin ER) 600 MG TAB.ER.12H 1 Tablet ORAL TWICE DAILY Qty = 20 Comments: Last Taken: 06/17/18 Time: 9:00 AM Oxymetazoline HCl (Nasal Decongestant) 0.05 % SPRAY 2 [place] In the nose TWICE DAILY as needed for NASAL CONGESTION Qty = 1 Comments: NOT TAKEN IN HOSPITAL Dicyclomine HCl (Dicyclomine HCl) 10 MG CAPSULE 1 Capsule ORAL THREE TIMES DAILY Qty = 9 Comments: NOT GIVEN Furosemide (Lasix) 40 MG TABLET 40 Milligram ORAL TWICE DAILY Qty = 60 Comments: Last Taken: 06/17/18 Time: 9:00 AM Losartan Potassium (Losartan Potassium) 25 MG TABLET 25 Milligram ORAL DAILY Qty = 30 Instructions: . Comments: Last Taken: 06/17/18 Time: 9:00 AM Prednisone (Prednisone) 10 MG TABLET 1 Tablet ORAL SEE INSTRUCTIONS Qty = 30 Instructions: 5PILLS-2DAYS,4PILLS-2DAYS,3PILLS-2DAYS, 2PILLS-2DAYS,1PILL-2DAYS,THEN STOP. Comments: NOT TAKEN Start taking the following new medications: Omeprazole (Omeprazole) 40 MG CAPSULE.DR 1 Capsule ORAL TWICE DAILY Qty = 30 No Refills Comments: NOT GIVEN Oxycodone HCl/Acetaminophen (Percocet 5-325 MG Tablet) 5 MG-325 MG TABLET 1 Tablet ORAL EVERY 24 HOURS as needed for leg pain Qty = 30 No Refills Comments: Last Taken: 06/17/18 Time: 7:00 AM Bisacodyl (Bisacodyl) 5 MG TABLET.DR 5 Milligram ORAL DAILY Qty = 30 No Refills Instructions: . Comments: Last Taken: 06/17/18 Time: 9:00 AM Polyethylene Glycol 3350 (Miralax) 17 GRAM/DOSE POWDER 17 Gram ORAL DAILY Qty = 10 No Refills Instructions: . Comments: NOT GIVEN Sennosides/Docusate Sodium (Senna-Time S Tablet) 8.6 MG-50 MG TABLET 187 Milligram ORAL AT BEDTIME Qty = 30 No Refills Instructions: . Comments: NOT GIVEN
== END 2018-06-17 16:00 | disposition left against medical advice (07) | DRG 189 ==
LOC: ERH 12:06 → 1NO 13:39 → ERHI 13:39 → CRI 13:39 → ENRESERV 14:37 → ENTRNSPT 16:40 → EDTRNSPT 16:58 → EDTRNSPTSTS 16:58 → 2NA 17:07 → CMPTRNSPT 17:14 → CRI 06-12 13:02 → ENTRNSPT 06-14 15:56 → EDTRNSPTSTS 06-14 16:39 → EDTRNSPT 06-14 16:39 → 1NO 06-14 16:45 → CMPTRNSPT 06-14 17:03 → 1NO 06-16 20:10 → ENPENDDIS 06-17 11:51 → ENTRNSPT 06-17 15:11 → EDTRNSPT 06-17 15:27 → EDTRNSPTSTS 06-17 15:27 → CMPTRNSPT 06-17 15:45 → 1NO 06-17 16:00
PROVIDERS: Internal Medicine; Internal Medicine Adolescent Medicine; Physician Assistant Medical; Student in an Organized Health Care Education/Training Program
PROC: 30233N1 Transfusion of Nonautologous Red Blood Cells into Peripheral Vein, Percutaneous Approach (ICD-10-PCS; principal; 2018-06-12)
PROC: 0W3P8ZZ Control Bleeding in Gastrointestinal Tract, Via Natural or Artificial Opening Endoscopic (ICD-10-PCS; 2018-06-12)
PROC: 5A09457 Assistance with Respiratory Ventilation, 24-96 Consecutive Hours, Continuous Positive Airway Pressure (ICD-10-PCS; 2018-06-12)
DX: J96.22 Acute and chronic respiratory failure with hypercapnia (principal); K25.0 Acute gastric ulcer with hemorrhage; J44.1 Chronic obstructive pulmonary disease with (acute) exacerbation; N17.9 Acute kidney failure, unspecified; Z68.43 Body mass index [BMI] 50.0-59.9, adult; I13.0 Hypertensive heart and chronic kidney disease with heart failure and stage 1 through stage 4 chronic kidney disease, or unspecified chronic kidney disease; D62 Acute posthemorrhagic anemia; K92.1 Melena; I50.20 Unspecified systolic (congestive) heart failure; I42.8 Other cardiomyopathies; E78.5 Hyperlipidemia, unspecified; Z95.810 Presence of automatic (implantable) cardiac defibrillator; Z99.81 Dependence on supplemental oxygen; G47.33 Obstructive sleep apnea (adult) (pediatric); I87.2 Venous insufficiency (chronic) (peripheral); E11.40 Type 2 diabetes mellitus with diabetic neuropathy, unspecified; Z79.84 Long term (current) use of oral hypoglycemic drugs; M79.89 Other specified soft tissue disorders; E86.0 Dehydration; I48.91 Unspecified atrial fibrillation; Z79.01 Long term (current) use of anticoagulants; Z91.14 Patient's other noncompliance with medication regimen; Z91.19 Patient's noncompliance with other medical treatment and regimen; I25.2 Old myocardial infarction; E66.01 Morbid (severe) obesity due to excess calories; I95.9 Hypotension, unspecified; E11.22 Type 2 diabetes mellitus with diabetic chronic kidney disease; I25.5 Ischemic cardiomyopathy; Z87.11 Personal history of peptic ulcer disease; K29.70 Gastritis, unspecified, without bleeding; N18.3 Chronic kidney disease, stage 3 (moderate); E87.5 Hyperkalemia; Z59.0 Homelessness; N40.0 Benign prostatic hyperplasia without lower urinary tract symptoms; N18.9 Chronic kidney disease, unspecified; M10.9 Gout, unspecified; Z90.79 Acquired absence of other genital organ(s)
CPT/HCPCS: 1NP; 2NAP; CCU; 36415; 36592; 71045; 71046; 81001; 82436; 86920; 87040; 93005; 93010; 96360; 96361; 97116-GO; 97161-GP; 97530-GO; C9132; J0171; J0456; J0696; J0713; J1815; J2765; J2920; J2930; J7040; P9016